=== PATIENT | female | born 1945 | race Caucasian/White ===

== ENCOUNTER → 2017-09-11 10:07 | Outpatient (CLI) | payer MEDICARE, SELFPAY ==
[2017-09-14 10:17] LABS: CREATININE FINGERSTICK 0.54 mg/dL (0.55-1.02); EGFR FINGERSTICK > 60 mL/min (>60)
== END ==
PROVIDERS: Family Provider Internal Medicine; PCP Internal Medicine
DX: D32.0 Benign neoplasm of cerebral meninges (principal)

== ENCOUNTER → 2017-09-17 08:00 | Outpatient (CLI) | payer MEDICARE, SELFPAY ==
--- NOTE | 2017-09-17 08:04 | MRI_ITS ---
STUDY: MRI BRAIN WITH AND WITHOUT CONTRAST REASON FOR EXAM: Female, 72 years old. meningioma, f/u to prev mri; episode of neck pain,visual disturbance. TECHNIQUE: Standardized multiplanar fat and water weighted pulse sequences were obtained. 7 ml of Gadavist contrast material was administered intravenously for the contrast portion of the examination. COMPARISON: None. FINDINGS: Normal size of the ventricles and extra-axial spaces for the patient's age. Normal white matter tracts of the supratentorial brain. Normal bilateral basal ganglia. Normal thalami. There is no extra-axial fluid accumulation. There is 1.5 x 2.0 cm there left parasagittal enhancing nodule. There is no adjacent edema. Normal flow voids within the major intracranial circulation suggesting patency by spin echo criteria. Normal venous enhancement. There is no enhancing intra-axial or extra-axial abnormality. Normal sella turcica, pituitary gland, infundibular stalk, optic chiasm and hypothalamus. Normal tectal plate and pineal gland. Normal midbrain, willie and medulla. Normal cerebellum. Normal basal cisterns. Normal bilateral temporal bones. Normal bilateral internal auditory canals. No demonstrated orbital abnormality, within the constraints of a routine brain study. Normal visualized paranasal sinuses. Normal calvarium and skull base. Normal visualized soft tissue structures. Normal visualized upper cervical spine. MRI/Brain W/WO Contrast IMPRESSION: 2 cm left parasagittal enhancing nodule, most compatible with meningioma. Otherwise unremarkable examination. Electronically Signed: Ziggy Nesbitt MD at 16:04 EDT Tel , Service support ,
--- NOTE | 2017-09-17 09:00 | NURSING ---
THIS RN CALLED TO MRI TO EVALUATE PT. PT JUST FINISHED MRI AND NOTICED HIVES ON ABD. DENIED SOB, DIFFICULTY SWALLOWING, OR ANY OTHER COMPLAINT. PT OBSERVED FOR TEN MINUTES. PT INFORMED TO TAKE BENADRYL KRISTI AND INCREASE FLUID INTAKE TODAY.
== END ==
PROVIDERS: Family Provider Internal Medicine; PCP Internal Medicine
DX: D32.0 Benign neoplasm of cerebral meninges (principal)
CPT/HCPCS: 70553; A9585

== ENCOUNTER 2017-12-02 07:00 | Day surgery (SDC) | payer MEDICARE, SELFPAY ==
[2017-12-02] VITALS (7 sets, daily range): BP systolic 95–152; BP diastolic 60–73; PULSE 57–68; RESP 18; TEMP 36.2–36.7; O2SAT 98–100; BMI 24.8
--- NOTE | 2017-12-02 | IMM_PTH ---
PATIENT: BENEDICT LUCAS LOC: EN U#:[id number] AGE/SX: 72/F ROOM: RE12/02/[address]: Dr. Abner Reid MD : 1945 BED: DIS: 12/02/2017 SPEC #: [id number] RECD: 12/03/17 13:38 STATUS: JHONNY REQ #: [id number] BRIGIDA: 12/02/17 00:[address]: Abner Reid DEPT: IMMUNOHISTOCHEMISTRY RECD BY: Jodie Miller ENTERED: 12/03/17 13:39 SP TYPE: IMMUNO OTHR DR: Dr. Gavin Tran MD Tissues: B - Stomach, NOS Procedures: H Pylori (initial) PHYSICIAN & INSTITUTION [place] [id number] SPECIMEN INFORMATION: Tissue Source: B ? Antral biopsy Clinical Info: Esophageal dysphagia, history colon polyps Specimen Number: [id number] CPT code: 44215 METHODOLOGY: Deparaffinized sections of prefer/formalin-fixed tissue or PAP/DQ stained slides are incubated with monoclonal/polyclonal antibodies/oligonucleotide probes. Localization is made via biotin free immunoperoxidase method. Appropriate controls are performed and reacted as expected. Results on target cell population are indicated in the following table: RESULTS: ANTIBODY / CLONE RESULT H Pylori (polyclonal) negative These tests were developed and their performance characteristics determined by [facility]. They may not have been cleared or approved by the U.S. Food and Drug Administration. The FDA has determined that such clearance or approval is not necessary. INTERPRETATION: B. Antral biopsy: Negative for Helicobacter pylori organisms. SJ:quincy 12/04/17
--- NOTE | 2017-12-02 08:00 | EGD_PTH ---
PATIENT: BENEDICT LUCAS LOC: EN U#:[id number] AGE/SX: 72/F ROOM: RE12/02/[address]: Dr. Abner Reid MD : 1945 BED: DIS: 12/02/2017 SPEC #: [id number] RECD: 12/02/17 12:49 STATUS: JHONNY REAdan #: [id number] BRIGIDA: 12/02/17 08:[address]: Abner Reid DEPT: SURGICAL PATHOLOGY RECD BY: Layton Fregoso ENTERED: 12/02/17 13:57 SP TYPE: EGD BIOPSY OT DR: Dr. Gavin Tran MD Tissues: A - Duodenum, NOS B - Gastric mucous membrane C - COLON BIOPSY D - Esophageal mucous membrane C - Gastric fundus Procedures: Surgery Specimen Level IV HEADER OPERATION: Colonoscopy, EGD PRE-OP DIAGNOSIS: Esophageal dysphagia, history colon polyps TISSUE SUBMITTED: A ? Duodenal biopsy, B ? Antral biopsy, C ? Fundic polyp biopsy, D ? Distal esophagus biopsy MICROSCOPIC DIAGNOSIS A. Duodenal biopsy: Fragment of duodenal mucosa with Shan gland hyperplasia. B. Antral biopsy: Mild gastritis. A minute lymphoid aggregate, favor benign. See microscopic description and comment. C. Fundic polyp, biopsy: Consistent with fundic gland polyp. D. Distal esophageal biopsy: Fragments of squamous epithelium with mil chronic inflammation. SJ:quincy 12/03/17 COMMENT B. The results of immunohistochemistry for Helicobacter pylori will be reported separately ([id number]). MICROSCOPIC DESCRIPTION Slides are reviewed. B. The specimen shows fragments of gastric mucosa with chronic inflammatory cell infiltrates in the lamina propria consisting of lymphocytes and plasma cells, consistent with mild chronic gastritis. A minute lymphoid aggregate is also noted, favor benign. GROSS DESCRIPTION A - Received in fixative is one container labeled with the patient's name and designated biopsy duodenum. The specimen consists of one irregular fragment of light lipscomb soft tissue that measures 0.6 x 0.3 x 0.1 cm. The specimen is totally submitted in one cassette. B - Received in fixative is one container labeled with the patient's name and designated antral biopsy. The specimen consists of two irregular fragments of light lipscomb soft tissue that in aggregate measure 1 x 0.3 x 0.1 cm. The specimen is totally submitted in one cassette. C - Received in fixative is one container labeled with the patient's name and designated fundic polyp biopsy. The specimen consists of one irregular fragment of light lipscomb soft tissue that measures 0.4 x 0.3 x 0.1 cm. The specimen is totally submitted in one cassette. D - Received in fixative is one container labeled with the patient's name and designated distal esophageal biopsy. The specimen consists of multiple irregular fragments of light lipscomb soft tissue that in aggregate measure 0.5 x 0.3 x 0.1 cm. The specimen is totally submitted in one cassette. / SJ:rg 12/02/17 TC:3 CPT: 94762 x4
--- NOTE | 2017-12-02 09:00 | PCM.OPRPT ---
Problem List (1) Esophageal dysphagia Status: Acute (2) Change in bowel habit Status: Acute (3) Personal history of colonic polyps Status: Acute Report of Operation Date of Procedure: 12/02/17 Pre-Operative Diagnosis: Esophageal dysphagia. Change of bowel habit with discolored stool Post-Operative Diagnosis: Hiatal hernia, mild antral gastritis, gastric fundic polyps,. Sigmoid diverticulosis. Cecal arteriovenous malformation Surgery/Procedure Performed:: Colonoscopy with argon beam cecal cauterization Description of Surgical Findings:: Timeout and informed consent was obtained. 72-year-old female was taken to the endoscopy suite. She was placed in the left lateral decubitus position. Throughout the procedure she had monitored anesthesia care. Or oropharynx anesthetized with Topex. She underwent monitored anesthesia care. Flexible gastroscope was inserted in the esophageal inlet. The proximal mid distal esophagus notable for a small hiatal hernia distally with the e.g. junction at 38 cm. Scope was advanced the stomach some gastric fundic polyps identified. Minimal erythema in the antrum. Scope was advanced in the first and second portion of the duodenum. This did not appear to be grossly remarkable. Cold forcep biopsy was obtained of the duodenum. Cold forcep biopsy was obtained of the antrum. Cold forcep biopsy obtained gastric fundic polyps. Hemostasis was intact. The hiatal hernia noted but no gross changes of reflux. All findings appeared mild. Excess fluid and air was aspirated free the procedure was completed she tolerated it well. Digital rectal exam performed. Normal anal tone mild hemorrhoidal changes. Flexible colonoscope was inserted and advanced quite readily throughout the colon. The cecum ileocecal valve area was nicely achieved. It was noted to be AVM malformation of the cecum scattered with areas suggesting recent bleeding. There was small amounts of streaky blood. Using a argon beam with right colon settings and is straight catheter I cauterized as much of these AVMs as possible. Hemostasis was intact. This was over a scattered area of the cecum. No active bleeding was present at the completion. Very difficult to imagine however that every last one was treated. The scope was carefully withdrawn and at the hepatic flexure 1 additional area was treated with the argon beam. There was pancolonic diverticulosis noted with severe diverticulosis of the descending and sigmoid colon. I did not see any recurrent polyps. The scope was retroflexed within the rectum the anorectal verge inspected this was not remarkable excess fluid and air was aspirated free the procedure was completed with the patient tolerating it well. Impression Small hiatal hernia. Mild antral gastritis. Gastric fundic polyps. Unremarkable upper GI findings. Cold forcep biopsies pending. AVMs of the cecum. Evidence of active bleeding. Pancolonic diverticulosis with extensive diverticular disease of the sigmoid and descending colon. The patient will be notified of pathology results as they become available. I plan to obtain a CBC today and likely will recheck laboratory at 1 month. It is of note that the patient's recently been diagnosed as having a cerebral hemangioma. I will try to avoid surgical resection of the right colon if possible. Otherwise pending patient progress next colonoscopy for her history of polyp disease would be in 5 years. The upper scope was started 0824 and completed at 0828. The lower endoscopy was started 0832 and the cecum was reached at 0835 and the procedure was completed at 0857 CC: Dr. Marc Reid M.D., F.A.C.S. Type of Anesthesia:: MAC
[2017-12-02 09:40] LABS: Absolute Lymphocyte Count 1.07 X10^3/ul (0.83-4.51); Absolute Neutrophil Count 2.1 X10^3/uL (2.0-7.7); Basophil# 0.01 X10^3/uL; Basophil% 0.3 % (0-1); Eosinophil# 0.16 X10^3/uL; Eosinophils% 4.4 % (0-5); Hematocrit 40.4 % (37-47); Hemoglobin 13.6 g/dl (12.0-15.0); Lymphocyte # 1.07 X10^3/ul (4.0); Lymphocyte % 29.2 % (19-41); Mean Corp Hgb Conc 33.7 g/gl (32-36); Mean Corpuscular Hgb 32.6 pg (27.0-32.0); Mean Corpuscular Volume 96.9 fL (81-99); Mean Platelet Vol. 9.5 fl (6.2-12.0); Monocyte# 0.33 X10^3/uL; Neutrophil # 2.08 X10^3/uL (2.7-7.7); Neutrophil % 56.8 % (47-70); POSITIVE COUNT NO; POSITIVE DIFFERENTIAL NO; POSITIVE MORPHOLOGY NO; Platelet Count 197 K/mm3 (150-450); RBC Distribution Width SD 42.3 fl (35.1-43.9); Red Blood Count 4.17 M/mm3 (4.2-5.4); White Blood Count 3.7 K/mm3 (4.4-11.0)
[2017-12-02 10:06] LABS: Anion Gap 5 (5-15); BUN 8 mg/dL (7-18); BUN/Creat Ratio 12.9 RATIO (10-20); Calcium,Total 8.9 mg/dL (8.5-10.1); Chloride 108 mmol/L (98-107); Creatinine, Serum 0.62 mg/dL (0.55-1.02); EST Glomerular Filtration Rate 100 mL/min (>60); Est Glom Filt Rate - Afr Amer 121 mL/min (>60); Estimated Creatinine Clearance 40.83 ml/min; Glucose 94 mg/dL (74-106); Potassium 3.4 mmol/L (3.5-5.1); Sodium Level 143 mmol/L (136-145)
== END 2017-12-02 10:53 | disposition home or self-care (01) ==
LOC: EN 07:01 → AC 07:02
PROVIDERS: Family Provider Internal Medicine; PCP Internal Medicine; Visit Provider Surgery
PROC: 0DJD8ZZ Inspection of Lower Intestinal Tract, Via Natural or Artificial Opening Endoscopic (ICD-10-PCS; CPT 45378; principal; 2017-12-02 07:55)
DX: K29.30 Chronic superficial gastritis without bleeding (principal); R13.10 Dysphagia, unspecified; R19.4 Change in bowel habit; K29.50 Unspecified chronic gastritis without bleeding; Q27.39 Arteriovenous malformation, other site; K57.30 Diverticulosis of large intestine without perforation or abscess without bleeding; K44.9 Diaphragmatic hernia without obstruction or gangrene; Z86.010 Personal history of colon polyps; E78.00 Pure hypercholesterolemia, unspecified
CPT/HCPCS: 43239; 45380; 36415; 80048; 85025; 88305; 88342; J7120

== ENCOUNTER 2017-12-03 17:20 | Inpatient (IN) | payer MEDICARE, SELFPAY ==
[2017-12-03] VITALS (12 sets, daily range): BP systolic 106–176; BP diastolic 60–91; PULSE 84–114; RESP 14–27; TEMP 36.6–38.3; O2SAT 93–100; BMI 25.0; BMI 24.7; BMI 24.8
[2017-12-03] MEDS: Morphine 4 MG/ML Syringe IV (17:47)
[2017-12-03] MEDS: 0.9% Normal Saline 1,000 ML 1000 ML IV (17:47)
[2017-12-03] MEDS: Ondansetron 4 MG/2 ML Vial IV (17:47)
--- NOTE | 2017-12-03 17:57 | NURSING ---
NO LW OR POA
--- NOTE | 2017-12-03 18:10 | NURSING ---
DR Haim HODGES TALKING TO DR SAMS
[2017-12-03 18:11] LABS: Absolute Lymphocyte Count 1.17 X10^3/ul (0.83-4.51); Absolute Neutrophil Count 11.8 X10^3/uL (2.0-7.7); Basophil# 0.01 X10^3/uL; Basophil% 0.1 % (0-1); Eosinophil# 0.11 X10^3/uL; Eosinophils% 0.8 % (0-5); Hematocrit 40.4 % (37-47); Hemoglobin 13.6 g/dl (12.0-15.0); Lymphocyte # 1.17 X10^3/ul (4.0); Lymphocyte % 8.4 % (19-41); Mean Corp Hgb Conc 33.7 g/gl (32-36); Mean Corpuscular Hgb 32.9 pg (27.0-32.0); Mean Corpuscular Volume 97.8 fL (81-99); Monocyte# 0.84 X10^3/uL; Neutrophil # 11.82 X10^3/uL (2.7-7.7); Neutrophil % 84.6 % (47-70); Platelet Count 214 K/mm3 (150-450); RBC Distribution Width CV 12.1 % (11.6-14.6); RBC Distribution Width SD 43.1 fl (35.1-43.9); Red Blood Count 4.13 M/mm3 (4.2-5.4)
[2017-12-03 18:13] LABS: POSITIVE COUNT NO; POSITIVE DIFFERENTIAL NO; POSITIVE MORPHOLOGY NO
[2017-12-03 18:27] LABS: ALB/GLOB Ratio 1.1 RATIO (0.9-2.4); AST(SGOT) 22 U/L (15-37); Alanine Aminotransfer ALT/SGPT 28 U/L (13-56); Albumin, Serum 4.1 g/dL (3.2-5.0); Alkaline Phosphatase 121 U/L (45-117); Anion Gap 7 (5-15); BUN 13 mg/dL (7-18); Calcium,Total 9.5 mg/dL (8.5-10.1); Chloride 106 mmol/L (98-107); Creatinine, Serum 0.77 mg/dL (0.55-1.02); EST Glomerular Filtration Rate 78 mL/min (>60); Est Glom Filt Rate - Afr Amer 95 mL/min (>60); Estimated Creatinine Clearance 40.83 ml/min; Globulin 3.7 g/dL (2.2-4.2); Glucose 122 mg/dL (74-106); Lipase 134 U/L (73-393); Potassium 3.3 mmol/L (3.5-5.1); Protein, Total 7.8 g/dL (6.4-8.2); Sodium Level 142 mmol/L (136-145)
--- NOTE | 2017-12-03 18:54 | HP.PCM_ITS ---
Problem List (1) Cecum perforation Status: Acute History of Present Illness Date of Admission: 12/03/17 The patient is a 72 year old F who just had a procedure yesterday by myself. Please refer to that for fully dictated H&P. It is of note that she had had a previous colonoscopy in 2012. There was no reflection at that time of vascular malformation. She did have a previous history of colon polyps. She was having troubles with intermittent constipation and orange colored stools. Yesterday she was taken for endoscopy. Because of esophageal dysphagia she had both an upper endoscopy and a lower endoscopy. The upper endoscopy showed a small hiatal hernia. Minimal erythema of the antrum. Biopsies were routinely obtained. Gastric fundic polyps are identified. She then had a colonoscopy. That proceeded without difficulty. It is of note that the patient has had a previous sigmoid colectomy secondary to what sounds like volvulus. The colonoscopy proceeded. The ileocecal valve was nicely achieved. There were multiple AVMs of the cecum with scattered areas suggesting recent bleeding. There are small amounts of streaky blood located there as well. I utilized an argon beam with a straight catheter to treat this area. The argon beam was set on right colon settings. I suggested that not all of the areas were treated due to the extensive nature of the process. The patient was discharged home in satisfactory condition. She tells me that she was feeling well. Midday today developed some bloating. And then later this afternoon developed severe right lower quadrant abdominal pain. She presented was noted to have a mild leukocytosis with a left shift. She had a very tender abdomen focused in the right lower quadrant. CT scan obtained suggesting bubbles outside of the cecum. Past Medical History Medical History: Medical History (Last Updated 11/21/17 @ 13:34 by Lauren Camarena) Personal history of colonic polyps (Acute) Z86.010 Blood in stool K92.1 Constipation K59.00 Diarrhea R19.7 Hemorrhoids K64.9 Stroke I63.9 Allergies clindamycin Allergy (Intermediate, Verified 12/03/17 17:22) nausea/vomiting sulfamethoxazole [From Bactrim] Allergy (Intermediate, Verified 12/03/17 17:22) nausea/vomiting trimethoprim [From Bactrim] Allergy (Intermediate, Verified 12/03/17 17:22) nausea/vomiting Gadolinium-MRI Contrast Medium Allergy (Verified 12/03/17 17:22) Hives levofloxacin [From Levaquin] Adverse Reaction (Verified 12/03/17 17:22) Nausea metronidazole [From Flagyl] Adverse Reaction (Verified 12/03/17 17:22) Nausea Home Medications: Ambulatory Orders Medication Instructions Recorded Aspirin E.C. [Ecotrin] 81 mg PO DAILY@0800 01/05/17 Atenolol [Tenormin] 25 mg PO DAILY 01/05/17 Calcium Carbonate [Calcium] 500 mg PO BID 01/05/17 Multivitamin [Multiple Vitamins] 1 ea PO DAILY 01/05/17 [place]-3 Fatty Acids [Fish Oil] 500 mg PO DAILY 01/05/17 atorvastatin 20 mg tablet 40 mg PO QHS tab 11/21/17 vitamin E 1,000 unit capsule 400 unit PO DAILY cap 11/21/17 Surgical History: Surgical History (Last Updated 11/21/17 @ 13:35 by Lauren Camarena) History of colectomy Z90.49 History of hemorrhoidectomy Z98.890 History of hysterectomy Z90.710 History of removal of ovarian cyst Z98.890, Z87.42 History of spinal fusion Z98.1 Smoking Status: Never smoker VTE Information - Inpt Only VTE Present on Admission: No Patient Problems: Active and Suspected Problems (Last Updated 11/21/17 @ 13:34 by Lauren Camarena) Cecum perforation (Acute) - Physical Exam General: Alert, Oriented x3, - - Clearly uncomfortable HEENT: Atraumatic Oral: Moist Mucosa Lungs: Clear to auscultation Cardiovascular: Regular rate, Regular Rhythm Abdomen: - - Abdomen is distended and quiet. She is markedly tender to palpation right lower quadrant with rebound and guarding. There is a well- healed left sd-rectus incision. Well-healed umbilical incision. Neurological: Cranial nerves II-XII grossly intact Vital Signs Temp Pulse Resp BP Pulse Ox 99.9 F H 104 H 27 H 106/71 98 12/03/17 17:21 12/03/17 18:24 12/03/17 18:24 12/03/17 18:24 12/03/17 18:24 Oxygen Flow Rate (L/min) 2 Oxygen Delivery Method Nasal Cannula Weight: 141 lb Body Mass Index (BMI) 25.0 Laboratory Tests Past 24 Hrs 12/03/17 12/03/17 17:50 17:50 WBC 14.0 H RBC 4.13 L Hgb 13.6 Hct 40.4 MCV 97.8 MCH 32.9 H MCHC 33.7 RDW 12.1 RDW Differential 43.1 Plt Count 214 MPV 10.0 Immature Gran % (Auto) 0.100 Neut % (Auto) 84.6 H Lymph % (Auto) 8.4 L [place] % (Auto) 6.0 Eos % (Auto) 0.8 Baso % (Auto) 0.1 Absolute Neuts (auto) 11.8 H Absolute Lymphs (auto) 1.17 Total Counted Not Reportable Sodium 142 Potassium 3.3 L Chloride 106 Carbon Dioxide 29.0 Anion Gap 7 BUN 13 Creatinine 0.77 Estim Creat Clear Calc 40.83 Est GFR (MDRD) Af Amer 95 Est GFR (MDRD) Non-Af 78 BUN/Creatinine Ratio 17.0 Glucose 122 H Calcium 9.5 Total Bilirubin 1.10 H AST 22 ALT 28 Alkaline Phosphatase 121 H Total Protein 7.8 Albumin 4.1 Globulin 3.7 Albumin/Globulin Ratio 1.1 Lipase 134 Assessment/Plan All Active Problems (Last Updated 11/21/17 @ 13:34 by Lauren Camarena) Esophageal dysphagia (Acute) Change in bowel habit (Acute) Cecum perforation (Acute) Personal history of colonic polyps (Acute) Findings are consistent with cecal perforation secondary treatment of the AVMs from the argon beam right colon settings. I recommend laparoscopy. I anticipated a limited laparoscopic right colectomy. The patient had vascular malformations mostly located in the cecum and the proximal ascending colon. There was no evidence of any recurrent polyps yesterday. She otherwise appears to be hemodynamically stable. I discussed with her technique, benefits, risks and alternatives. She has had an opportunity to ask and have questions answered. We will proceed immediately with intervention. She does have drug allergies but she is not allergic to penicillin. She will immediately receive therapeutic Zosyn. She is aware that I may need to convert to an open approach or possibly a diverting ileostomy may be required but I am not anticipating that. Abner Reid M.D., F.A.C.S.
--- NOTE | 2017-12-03 19:00 | COL_PTH ---
PATIENT: BENEDICT LUCAS LOC: MS3 U#:[id number] AGE/SX: 72/F ROOM: MS319 RE12/03/[address]: Dr. Abner Reid MD : 1945 BED: 1 DIS: 12/07/2017 SPEC #: [id number] RECD: 12/04/17 09:16 STATUS: JHONNY BATRESAdan #: [id number] BRIGIDA: 12/03/17 19:[address]: Abner Reid DEPT: SURGICAL PATHOLOGY RECD BY: [place] ENTERED: 12/04/17 10:13 SP TYPE: COLON OTHR DR: Dr. Gavin Tran MD Tissues: Colon, NOS Procedures: Surgery Specimen Level V HEADER OPERATION: Laparoscopic hand assisted right colectomy PRE-OP DIAGNOSIS: Cecal micro-perforations; status post treatment of vascular malformation TISSUE SUBMITTED: Right colon MICROSCOPIC DIAGNOSIS Right colon, hemicolectomy: Focal areas of ulceration and associated transmural acute inflammation large bowel. Resection margin, no pathologic diagnosis. Pericolonic lymph node with reactive changes and focal area of hemorrhage. See comment. SJ:rg 12/08/17 COMMENT Grossly identified mucosal polyp does not show any adenomatous changes. Case has been reviewed in consultation with Dr. Pablo who concurs with the above diagnosis. IDC:AM MICROSCOPIC DESCRIPTION Slides are reviewed. GROSS DESCRIPTION Received in fixative is one container labeled with the patient's name and designated right colon. The specimen consists of a 15 cm segment of large bowel and attached 4.5 cm of terminal ileum located approximately 0.5 cm. Distal to the ileocecal valve is an ulcerated area measuring 3.5 x 3 x 0.2 cm. Focal area small ulceration are noted in the cecum. Located approximately 8 cm distal to the ileocecal valve is a mucosal polyp measuring 5 mm in greatest dimension. An appendix is not present. The serosal surface in the area of the ulcer is inked in black ink. The small bowel segment shows mostly normal epithelial surface. The attached fibrofatty tissue does not contain mass lesions. Event Planning Manager sections are submitted as follows: 1 ? mucosal margins and colonic polyp, 2 ? smaller ulcers, 3 & 4 ? large bowel ulcers, 5 & 6 ? quality assurance representative pericolic lymph nodes. / AM:quincy 12/05/17 More sections are submitted as follows: 7 ? small bowel, 8 ? ileocecal valve. / SJ:quincy 12/09/17 TC:2 CPT: 96345
--- NOTE | 2017-12-03 19:13 | ED.DCSUM_ITS ---
- ER Visit Summary Date of Service: 12/03/17 Chief Complaint: Abdominal pain History of Present Illness: The patient is a [address] Tran and Dr. Abner Reid. She had a colonoscopy and endoscopy yesterday by Dr. Roblero. She reports that she was doing well and had mild pain. However, at approximately 1230 today the pain became much worse. She describes it as a sharp, aching pain that is 10 out of 10 with movement or deep breaths. Is 7 out of 10 while she is still. She has been nauseated, but has not vomited. She has had no diarrhea. She reports she is passing flatus. She is passed a little bit of blood clot. No bright red blood. No fever or chills. Physical Examination: Vitals: Stable. Afebrile. General: Well-nourished and well-developed. Head: Normocephalic atraumatic. Neck: Supple, no lymphadenopathy. No JVD. Nontender. Cardiovascular: Regular rate and rhythm. No murmurs. Respiratory: No respiratory distress. Clear to auscultation bilaterally. Abdominal: Soft, severe right lower quadrant and suprapubic tenderness to palpation, nondistended, normal bowel sounds. She does have guarding and rebound tenderness. Back: Nontender. Extremities: Nontender, no edema. Skin: Normal color, no rash. Neurologic: Alert and oriented ?3. Cranial nerves II through XII are intact. Normal strength and sensation. Psych: Normal affect. Test Results: CBC is more for white count of 14.0 with 85 segmented neutrophils and 8 lymphs lites. Chem-7 is more for potassium 3.3 and glucose 122. LFTs marked total bili 1.10 and alk phos of 121. Lipase is normal. CT shows pericecal fatty stranding. Several punctate extraluminal gas densities are seen in the region suspicious for microperforation. No abnormal free or loculated fluid collection is seen in the region. Emergency Department Course and Treatment: Patient was treated with morphine and Zofran IV. She was seen by Dr. Abner Reid in the emergency department and he wrote for Zosyn. Treatment Plan: Patient will be taken to the operating room for further evaluation and treatment. Disposition: Admitted in serious condition. Impression: 1. Cecal microperforation. 2. 1 day status post colonoscopy/endoscopy. This note was generated with [employer] dictation software. It may contain incorrect words, spelling, and punctuation that were not noted in review of the chart prior to signing ED Disposition - Plan for ED Patient: Chief Complaint: Abd Pain
[2017-12-03] MEDS: Bupivacaine 0.5% PF 10 ML VIAL (20:00)
[2017-12-03] MEDS: BUPIVACAINE LIPOSOME/PF 20 ML VIAL OPERA.SITE (21:42)
--- NOTE | 2017-12-03 21:51 | OP.PCM_ITS ---
Problem List (1) Cecum perforation Status: Acute Report of Operation Date of Procedure: 12/03/17 Pre-Operative Diagnosis: Postprocedural treatment of bleeding vascular malformations of the cecum with localized microperforations and colitis of the cecum Post-Operative Diagnosis: Same Surgery/Procedure Performed:: Hand-assisted laparoscopic right colectomy Description of Surgical Findings:: Timeout and informed consent was obtained. 72-year-old female was taken the operating room. Yesterday she had treatment of multiple bleeding vascular malformations of the cecum. This was treated with the right colon settings of the argon beam. She presented with acute onset of severe pain she was focally tender with guarding and rebound. She had a mild leukocytosis. CT scan demonstrated microperforations. Based upon the fact that I felt that her recovery would be quite prolonged and possibly risking full wall perforation in addition to the fact that all of the AVMs could not be treated at the initial setting I thought that it was in her best interest to proceed with a definitive resection in deference to risking a full-thickness perforation Zosyn 3.375 g are given intravenously preoperatively. The abdomen sterilely prepped and draped. Ioban drape was used as well. A supraumbilical vertical incision was created holding sutures of 0 Vicryl placed small incision was created the abdomen was insufflated CO2 to pressure of 10 mmHg pressure using a varies needle. Direct access was actually visualized in a timely report was inserted no evidence of reported injuries. Inspection revealed that the cecum appeared to be quite hemorrhagic there was absolutely no stool spillage there was inflammation of the mesentery there is significant distention of the ascending colon. I elected to proceed with the planned colectomy so as to not risk full-thickness perforation. 5 minute trocar was put in the epigastric and one in the right lower quadrant the ileocolic vessels were inspected due to the significant swelling of the cecum visualization was very challenging I used a harmonic scalpel to do some of this dissection and I elected to free the white line of T[place]t and the hepatocolic ligament with a harmonic scalpel. Perform this all the way down the right side freeing up the terminal ileum. This point with good mobilization there was still significant distention of the colon I felt that converting to a hand-assisted basically to act as a wound protector and facilitate management was appropriate. I lengthened the vertical incision placed a hand assist device used my hand for the release some adhesions. Again was done with harmonic scalpel that then allowed me to mobilize the colon interview. I then transected the mesentery using the harmonic scalpel as well as interrupted 0 chromic ligatures. The terminal ileum was viable cecum was not viable the hepatic flexure of the colon was viable but it was very adherent so I then had to work diligently to free the gastrohepatic omentum and the greater omentum off the stomach is become adherent to having done that I was able to mobilize the entire right colon. Using PATIENCE-75 staplers I transected the colon had appropriate. With the bowel appear to be quite viable. There was noted to be good blood supply at both sites in fact I had to use interrupted 4-0 silk sutures to further secure hemostasis. I placed the bowel side to side and secured there with several interrupted 4-0 silk stitches. I made enterotomies in both small bowel terminal ileum and the colon inserted the 75 mm PATIENCE stapler and performed a functional end-to-end anastomosis by approximately the 2 structures, size of fibroids. Was some stool from the colon that had to be rapidly aspirated free there was no free spillage but it was immediately at the enterostomy site. Having achieved that I then used a TA 60 to close the enterotomy site. I used omentum then as a pass with a running 4 -0 silk to cover the anastomotic area. I doubt the area prior to that with Betadine. Both ends the bowel appeared viable. That there was a nicely patent anastomosis placed that back in the abdomen which seemed to sit down in the right mid abdomen. Hemostasis was intact blood loss and then minimal. There was no gross spillage at all during the procedure. Then we removed the hand assist device we changed gowns and gloves and instruments. Primary wound closure was performed with running #1 PDS. I used Exparel diluted to 60 cc with saline to inject around the wound and perform a nerve block around the subcostal area. I tried to inspect the abdomen prior to removing the hand assist device but due to the patient's ileus and distention that was not feasible so I could not get a laparoscopic view in order to better perform that tap block. The wound edges were now approximated with interrupted a running septic or 4-0 Monocryl. Steri-Strips Telfa and OpSite dressings were applied. An NG tube was inserted per anesthesia. OG tube is been used throughout the procedure. A Campbell catheter was placed at the completion of the procedure. Sponge instrument and needle counts were reported the surgeon be correct. Specimen includes right colon. Drains none. Blood loss minimal. She was taken to the recovery area in satisfactory condition. Abner Reid M.D., F.A.C.S.
[2017-12-04] VITALS (7 sets, daily range): BP systolic 120–147; BP diastolic 52–61; PULSE 85–94; RESP 16–20; TEMP 36.9–37.4; O2SAT 94–100; BMI 24.8
[2017-12-04] MEDS: Piperacil/Tazobactam 3.375 GM/50 ML ML IV ×2 (00:35→06:45)
[2017-12-04] MEDS: Morphine 4 MG/ML Syringe IV ×7 (04:09→23:31)
[2017-12-04] MEDS: 0.9% NaCl Peripheral Flush Adult/Peds IV ×6 (04:09→23:32)
--- NOTE | 2017-12-04 05:35 | PCM.PN.SRG ---
Patient Problems: Active and Suspected Problems (Last Updated 11/21/17 @ 13:34 by Lauren Camarena) Cecum perforation (Acute) Subjective: Pt is feeling better than yesteday but still quite sore No flatus - Physical Exam General: Alert, Oriented x3, Cooperative, No apparent distress Lungs: Clear to auscultation, Diminished - in bases Abdomen: Bowel Sounds Not Present, Distended, Tender Vital Signs Temp Pulse Resp BP Pulse Ox 98.8 F 93 18 147/61 H 97 12/04/17 03:55 12/04/17 03:55 12/04/17 03:55 12/04/17 03:55 12/04/17 03:55 Oxygen Flow Rate (L/min) 2 Oxygen Delivery Method Room Air Weight: 140 lb Body Mass Index (BMI) 24.7 Intake and Output for Last 24 Hours 12/02/17 12/03/17 12/04/17 23:59 23:59 23:59 Intake Total 2130 / 2130 80 / 80 Output Total 550 / 550 Balance 1580 / 1580 80 / 80 Medical Necessity - Tobacco Use Smoking Status: Never smoker Assessment/Plan All Active Problems (Last Updated 11/21/17 @ 13:34 by Lauren Camarena) Esophageal dysphagia (Acute) Change in bowel habit (Acute) Cecum perforation (Acute) Personal history of colonic polyps (Acute) Will dc ngt and dia Mobilize pt Moderate IVF Await labs Antibiotics two doses post op and cease
[2017-12-04 07:32] LABS: Absolute Lymphocyte Count 1.05 X10^3/ul (0.83-4.51); Absolute Neutrophil Count 14.8 X10^3/uL (2.0-7.7); Basophil# 0.01 X10^3/uL; Basophil% 0.1 % (0-1); Eosinophil# 0.03 X10^3/uL; Eosinophils% 0.2 % (0-5); Hematocrit 35.1 % (37-47); Hemoglobin 11.5 g/dl (12.0-15.0); Lymphocyte # 1.05 X10^3/ul (4.0); Lymphocyte % 6.3 % (19-41); Mean Corp Hgb Conc 32.8 g/gl (32-36); Mean Corpuscular Hgb 32.1 pg (27.0-32.0); Monocyte% 4.8 % (0-10); Neutrophil # 14.79 X10^3/uL (2.7-7.7); Neutrophil % 88.5 % (47-70); Platelet Count 203 K/mm3 (150-450); RBC Distribution Width CV 12.2 % (11.6-14.6); RBC Distribution Width SD 44.1 fl (35.1-43.9); Red Blood Count 3.58 M/mm3 (4.2-5.4); White Blood Count 16.7 K/mm3 (4.4-11.0)
[2017-12-04 07:41] LABS: POSITIVE COUNT NO; POSITIVE DIFFERENTIAL NO; POSITIVE MORPHOLOGY NO
[2017-12-04 07:56] LABS: Anion Gap 11 (5-15); BUN 12 mg/dL (7-18); BUN/Creat Ratio 16.4 RATIO (10-20); Calcium,Total 8.2 mg/dL (8.5-10.1); Chloride 104 mmol/L (98-107); Creatinine, Serum 0.73 mg/dL (0.55-1.02); EST Glomerular Filtration Rate 83 mL/min (>60); Est Glom Filt Rate - Afr Amer 100 mL/min (>60); Estimated Creatinine Clearance 40.83 ml/min; Glucose 137 mg/dL (74-106); Potassium 3.5 mmol/L (3.5-5.1); Sodium Level 142 mmol/L (136-145)
[2017-12-04] MEDS: Ondansetron 4 MG/2 ML Vial IV (08:50)
[2017-12-04] MEDS: Lactated Ringers 1,000 ML 70 ML IV ×2 (08:53→23:31)
[2017-12-04] MEDS: Enoxaparin 40 MG/0.4 ML Syringe SC (08:54)
--- NOTE | 2017-12-04 12:15 | CASEMGMT ---
SEE [facility] [facility] ASSESS LINK: D/C PLAN: HOME Intro role to [employer] [facility]. Pt resting in bed. @ bedside. Pt and both willing to participate in assessment and all questions answered appropriately. Pt states is independent @ home w/ ambulation and all ADL's. Pt wishes to return home upon discharge. Pt denies having any needs at this time. CM to follow for any discharge planning needs that may arise. Monika NUÑEZ RN, CM
--- NOTE | 2017-12-04 15:32 | NURSING ---
Addendum entered by Jennifer Raya 12/04/17 15:39: Dr. Reid in Surgery at this time. OR nurse relayed the message and Dr. Reid stated That's how the patient has always been. Dr. Reid wants Marielos to come take a look at pt. Paged Marielos at this time. Original Note: This nurse checked on pt. C/o of pressure to ABd, 7 out of 10 now as before it was 10 out of 10. This nurse noticed ABd looks more distended. BS are more quieter then they were this morning. Pt is very tender with even the slightest touch to all qauds. No flatus. This nurse bladder scanned pt for 133. Going to call Dr. Laz Reid just to update him on pt findings.
--- NOTE | 2017-12-04 16:54 | NURSING ---
Marielos Talbot up here to see pt. No new orders.
[2017-12-05 03:50] VITALS: BP 136/51; PULSE 94; RESP 16; TEMP 37.3; O2SAT 96
--- NOTE | 2017-12-05 05:41 | PCM.PN.SRG ---
Patient Problems: Active and Suspected Problems (Last Updated 11/21/17 @ 13:34 by Lauren Camarena) Cecum perforation (Acute) Subjective: Much better Passing flatus - Physical Exam General: Alert, Oriented x3 Abdomen: - - softer, pos. BS, less tender but still guarding RLQ Vital Signs Temp Pulse Resp BP Pulse Ox 99.1 F 94 16 136/51 H 96 12/05/17 03:50 12/05/17 03:50 12/05/17 03:50 12/05/17 03:50 12/05/17 03:50 Oxygen Flow Rate (L/min) 2 Oxygen Delivery Method Room Air Weight: 140 lb 0.002 oz Body Mass Index (BMI) 24.7 Intake and Output for Last 24 Hours 12/03/17 12/04/17 12/05/17 23:59 23:59 23:59 Intake Total 2130 / 2130 918 / 918 648 / 648 Output Total 550 / 550 150 / 150 500 / 500 Balance 1580 / 1580 768 / 768 148 / 148 Laboratory Tests Past 24 Hrs 12/04/17 12/04/17 06:13 06:13 WBC 16.7 H RBC 3.58 L Hgb 11.5 L Hct 35.1 L MCV 98.0 MCH 32.1 H MCHC 32.8 RDW 12.2 RDW Differential 44.1 H Plt Count 203 MPV 10.0 Immature Gran % (Auto) 0.100 Neut % (Auto) 88.5 H Lymph % (Auto) 6.3 L [place] % (Auto) 4.8 Eos % (Auto) 0.2 Baso % (Auto) 0.1 Absolute Neuts (auto) 14.8 H Absolute Lymphs (auto) 1.05 Total Counted Not Reportable Sodium 142 Potassium 3.5 Chloride 104 Carbon Dioxide 27.0 Anion Gap 11 BUN 12 Creatinine 0.73 Estim Creat Clear Calc 40.83 Est GFR (MDRD) Af Amer 100 Est GFR (MDRD) Non-Af 83 BUN/Creatinine Ratio 16.4 Glucose 137 H Calcium 8.2 L Medical Necessity - Tobacco Use Smoking Status: Never smoker Assessment/Plan All Active Problems (Last Updated 11/21/17 @ 13:34 by Lauren Camarena) Esophageal dysphagia (Acute) Change in bowel habit (Acute) Cecum perforation (Acute) Personal history of colonic polyps (Acute) Mobilize pt Start and advance diet
--- NOTE | 2017-12-05 05:42 | DCINST_ITS ---
<Abner Reid - Last Filed: 12/05/17 05:42> Discharge Diet: Light diet - advance as tolerated - if you have questions about your diet instructions, please talk to you doctor. Discharge Activity: May Not Drive - for 1 week or while taking narcotic pain medicine. May shower in (days): 1 Lifting Restrictions: 10 pounds Call your doctor if your incision/area has: Continuous Slow Oozing, Sudden Increased Bleeding, Increased Pain/ Swelling, Increased Redness, Foul Smelling Discharge Call your doctor if you observe: Fever of 101 or Higher Suture Line Care: Avoid Pulling/Pushing, Avoid Pinching/Bending Additional Dressing/Incision Instructions:: Change or remove dressing in 4 days. Leave steri-strips in place for 1 week. Allergies/Adverse Reactions: Allergies clindamycin Allergy (Intermediate, Verified 12/03/17 17:22) nausea/vomiting sulfamethoxazole [From Bactrim] Allergy (Intermediate, Verified 12/03/17 17:22) nausea/vomiting trimethoprim [From Bactrim] Allergy (Intermediate, Verified 12/03/17 17:22) nausea/vomiting Gadolinium-MRI Contrast Medium Allergy (Verified 12/03/17 17:22) Hives levofloxacin [From Levaquin] Adverse Reaction (Verified 12/03/17 17:22) Nausea metronidazole [From Flagyl] Adverse Reaction (Verified 12/03/17 17:22) Nausea Medications to take at Discharge Aspirin E.C. [Ecotrin] 81 mg PO DAILY@0800 01/05/17 Atenolol [Tenormin] 25 mg PO DAILY 01/05/17 Calcium Carbonate [Calcium] 500 mg PO BID 01/05/17 Multivitamin [Multiple Vitamins] 1 ea PO DAILY 01/05/17 [place]-3 Fatty Acids [Fish Oil] 500 mg PO DAILY 01/05/17 atorvastatin 20 mg tablet 40 mg PO QHS tab 11/21/17 vitamin E 1,000 unit capsule 400 unit PO DAILY cap 11/21/17 Acetaminophen [Tylenol Tablet] 650 mg PO Q6H PRN PRN tablet 12/07/17 Tamsulosin HCl [Flomax] 0.4 mg PO DAILY@1730 #15 cap 12/07/17 The following prescriptions were given: Tamsulosin HCl [Flomax] 0.4 mg PO DAILY@1730 #15 cap Primary Care Physician: Gavin Tran MD [Primary Care Provider] - Test Results: Test results from this visit will be discussed in further detail at your follow- up appointment, if applicable. Please Follow Up With: Abner Reid MD - [phone] When: Call to make an appointment to be seen in about 10 days. <Renaldo Rodrigez - Last Filed: 12/07/17 12:38> Test Results: Test results from this visit will be discussed in further detail at your follow- up appointment, if applicable.
[2017-12-05] MEDS: HYDROcodone Bitartrate/Apap 5/325 Tablet PO ×3 (05:53→22:07)
[2017-12-05] MEDS: 0.9% NaCl Peripheral Flush Adult/Peds IV ×2 (05:58→22:16)
[2017-12-05 06:25] LABS: Absolute Lymphocyte Count 0.79 X10^3/ul (0.83-4.51); Basophil# 0.01 X10^3/uL; Basophil% 0.1 % (0-1); Eosinophil# 0.01 X10^3/uL; Eosinophils% 0.1 % (0-5); Hematocrit 33.2 % (37-47); Hemoglobin 10.9 g/dl (12.0-15.0); Lymphocyte # 0.79 X10^3/ul (4.0); Lymphocyte % 6.7 % (19-41); Mean Corp Hgb Conc 32.8 g/gl (32-36); Mean Corpuscular Hgb 33.1 pg (27.0-32.0); Mean Corpuscular Volume 100.9 fL (81-99); Mean Platelet Vol. 10.1 fl (6.2-12.0); Monocyte# 0.93 X10^3/uL; Monocyte% 7.9 % (0-10); Neutrophil # 9.99 X10^3/uL (2.7-7.7); Platelet Count 179 K/mm3 (150-450); RBC Distribution Width CV 12.1 % (11.6-14.6); RBC Distribution Width SD 43.5 fl (35.1-43.9); Red Blood Count 3.29 M/mm3 (4.2-5.4); White Blood Count 11.8 K/mm3 (4.4-11.0)
[2017-12-05 06:29] LABS: POSITIVE COUNT NO; POSITIVE DIFFERENTIAL NO; POSITIVE MORPHOLOGY NO
[2017-12-05 06:42] LABS: Anion Gap 4 (5-15); BUN 12 mg/dL (7-18); BUN/Creat Ratio 21.2 RATIO (10-20); Calcium,Total 8.7 mg/dL (8.5-10.1); Chloride 103 mmol/L (98-107); Creatinine, Serum 0.57 mg/dL (0.55-1.02); EST Glomerular Filtration Rate 111 mL/min (>60); Est Glom Filt Rate - Afr Amer 134 mL/min (>60); Estimated Creatinine Clearance 40.83 ml/min; Glucose 101 mg/dL (74-106); Potassium 3.8 mmol/L (3.5-5.1); Sodium Level 140 mmol/L (136-145)
[2017-12-05 07:33] VITALS: O2SAT 94
[2017-12-05] MEDS: Pantoprazole Sodium 40 MG Tablet PO (08:54)
[2017-12-05] MEDS: Enoxaparin 40 MG/0.4 ML Syringe SC (08:54)
[2017-12-05 08:55] VITALS: BP 145/66; PULSE 84; RESP 18; TEMP 36.6; O2SAT 94
[2017-12-05] MEDS: Tamsulosin HCl 0.4 MG Capsule PO (10:05)
[2017-12-05 14:04] LABS: Bacteria 0 SEEN /hpf (None Seen); Mucous, Urine 0 SEEN /hpf (<or=2+); Red Blood Cells-Urine 0 SEEN /hpf (0-5); Squamous Epithelial Cells - UA 0 SEEN /hpf (5-10); White Blood Cells 0 SEEN /hpf (0-5)
[2017-12-05 14:11] LABS: Color, Urine Yellow (Yellow); Glucose, Dipstick Normal (Normal); Ketone-Dipstick 5 mg/dl (Negative); Leukocyte Esterase-Dipstick Negative /ul (Negative); Nitrite-Dipstick Negative (Negative); Occult Blood-Urine 50 /ul (Negative); Protein-Dipstick Negative (Negative); Urine Bilirubin Dipstick Negative (Negative); Urine Clarity Clear (Clear); Urine Urobilinogen Normal (Normal)
[2017-12-05 14:45] VITALS: BP 129/62; PULSE 89; RESP 18; TEMP 36.8; O2SAT 98
[2017-12-05 22:00] VITALS: BP 139/44; PULSE 92; RESP 16; TEMP 37.3; O2SAT 95
[2017-12-06] VITALS (8 sets, daily range): BP systolic 135–152; BP diastolic 50–75; PULSE 83–105; RESP 16–18; TEMP 36.8–37.3; O2SAT 92–99
[2017-12-06] MEDS: HYDROcodone Bitartrate/Apap 5/325 Tablet PO ×3 (06:16→22:48)
--- NOTE | 2017-12-06 06:40 | PN.SURG_ITS ---
Patient Problems: Active and Suspected Problems (Last Updated 11/21/17 @ 13:34 by Lauren Camarena) Cecum perforation (Acute) Subjective: Pt feeling like need to void but severe pain and need to pass gas Uncomfortable night No nausea - Physical Exam General: - - Pt appears uncomfortable Abdomen: - - distended, diffusely tender, very active BS with tinkles/rushes Vital Signs Temp Pulse Resp BP Pulse Ox 98.4 F 90 16 143/75 H 95 12/06/17 02:45 12/06/17 02:45 12/06/17 02:45 12/06/17 02:45 12/06/17 02:45 Oxygen Flow Rate (L/min) 2 Oxygen Delivery Method Room Air Weight: 140 lb 0.002 oz Body Mass Index (BMI) 24.7 Intake and Output for Last 24 Hours 12/04/17 12/05/17 12/06/17 23:59 23:59 23:59 Intake Total 918 / 918 1867 / 1867 460 / 460 Output Total 150 / 150 2850 / 2850 950 / 950 Balance 768 / 768 -983 / -983 -490 / -490 Laboratory Tests Past 24 Hrs 12/05/17 12/05/17 05:53 10:03 Sodium 140 Potassium 3.8 Chloride 103 Carbon Dioxide 33.0 H Anion Gap 4 L BUN 12 Creatinine 0.57 Estim Creat Clear Calc 40.83 Est GFR (MDRD) Af Amer 134 Est GFR (MDRD) Non-Af 111 BUN/Creatinine Ratio 21.2 H Glucose 101 Calcium 8.7 Urine Color Yellow Urine Clarity Clear Urine pH 7.0 Ur Specific [place] 1.010 Urine Protein Negative Urine Glucose (UA) Normal Urine Ketones 5 H Urine Occult Blood 50 H Urine Nitrite Negative Urine Bilirubin Negative Urine Urobilinogen Normal Ur Leukocyte Esterase Negative Urine RBC 0 SEEN Urine WBC 0 SEEN Ur Squamous Epith Cells 0 SEEN Urine Bacteria 0 SEEN Urine Mucus 0 SEEN Medical Necessity - Tobacco Use Smoking Status: Never smoker Assessment/Plan All Active Problems (Last Updated 11/21/17 @ 13:34 by Lauren Camarena) Esophageal dysphagia (Acute) Change in bowel habit (Acute) Cecum perforation (Acute) Personal history of colonic polyps (Acute) Findings c/w resolving ileus and gas cramping Will drop back to clear liquids and re-assess later today Check labs Encourage ambulation as tolerated
[2017-12-06 07:11] LABS: Absolute Lymphocyte Count 0.86 X10^3/ul (0.83-4.51); Absolute Neutrophil Count 5.3 X10^3/uL (2.0-7.7); Basophil# 0.01 X10^3/uL; Basophil% 0.1 % (0-1); Eosinophil# 0.06 X10^3/uL; Eosinophils% 0.9 % (0-5); Hematocrit 29.6 % (37-47); Lymphocyte # 0.86 X10^3/ul (4.0); Lymphocyte % 12.8 % (19-41); Mean Corp Hgb Conc 33.8 g/gl (32-36); Mean Corpuscular Hgb 33.7 pg (27.0-32.0); Mean Corpuscular Volume 99.7 fL (81-99); Mean Platelet Vol. 9.6 fl (6.2-12.0); Monocyte# 0.52 X10^3/uL; Monocyte% 7.7 % (0-10); Neutrophil # 5.25 X10^3/uL (2.7-7.7); Neutrophil % 78.2 % (47-70); POSITIVE COUNT NO; POSITIVE DIFFERENTIAL NO; POSITIVE MORPHOLOGY NO; Platelet Count 176 K/mm3 (150-450); RBC Distribution Width CV 11.6 % (11.6-14.6); RBC Distribution Width SD 41.1 fl (35.1-43.9); Red Blood Count 2.97 M/mm3 (4.2-5.4); White Blood Count 6.7 K/mm3 (4.4-11.0)
[2017-12-06 07:37] LABS: Anion Gap 8 (5-15); BUN 10 mg/dL (7-18); BUN/Creat Ratio 20.2 RATIO (10-20); Calcium,Total 8.2 mg/dL (8.5-10.1); Chloride 104 mmol/L (98-107); EST Glomerular Filtration Rate 130 mL/min (>60); Est Glom Filt Rate - Afr Amer 157 mL/min (>60); Estimated Creatinine Clearance 40.83 ml/min; Glucose 99 mg/dL (74-106); Potassium 3.5 mmol/L (3.5-5.1); Sodium Level 143 mmol/L (136-145)
[2017-12-06] MEDS: Pantoprazole Sodium 40 MG Tablet PO (09:14)
[2017-12-06] MEDS: Enoxaparin 40 MG/0.4 ML Syringe SC (09:15)
--- NOTE | 2017-12-06 12:27 | NURSING ---
pt states pain is NOT different than she has had, abd not at tight/firm since she voided. States abd feels betterafter she voided.
--- NOTE | 2017-12-06 13:16 | NURSING ---
[id number] Dr Reid called stating WBC is normal, curtis reagan and notify pt that he called. He was informed that pt c/o pain, more distended this afternoon than this am. She is passing a lot flatus. She was bladder scanned, then voided 175, and bladder scanned again it showed 36. Has ambulated in [place]. No further orders given.
--- NOTE | 2017-12-06 13:26 | NURSING ---
Pt notified that Dr Reid called, said that WBC is back to normal.
[2017-12-06] MEDS: Tamsulosin HCl 0.4 MG Capsule PO (16:31)
[2017-12-07 02:00] VITALS: BP 154/79; PULSE 88; RESP 16; TEMP 36.6; O2SAT 96
[2017-12-07] MEDS: Acetaminophen 325 MG Tablet 650 MG PO (05:42)
[2017-12-07 08:02] VITALS: PULSE 84; RESP 17
--- NOTE | 2017-12-07 08:16 | NURSING ---
Pt voided another 50 ml. Will continue to monitor. Loco Garcia BSN RN.
[2017-12-07 08:17] VITALS: BP 144/74; PULSE 86; RESP 16; TEMP 37; O2SAT 99
[2017-12-07] MEDS: Pantoprazole Sodium 40 MG Tablet PO (08:22)
--- NOTE | 2017-12-07 08:55 | PCM.PN.SRG ---
Patient Problems: Active and Suspected Problems (Last Updated 11/21/17 @ 13:34 by Lauren Camarena) Cecum perforation (Acute) Subjective: Patient reports that she is passing flatus. She has not had a bowel movement yet. She is not having any nausea or vomiting and did tolerate clear liquids. - Physical Exam General: Alert, Oriented x3, Cooperative Lungs: Normal air movement, No rales Cardiovascular: Regular rate, Regular Rhythm Abdomen: Soft, Distended - Mildly distended, Tender - Mild appropriate tenderness with no guarding or rebound., - - Incisions are clean dry and intact Musculoskeletal: No Muscle Wasting Vital Signs Temp Pulse Resp BP Pulse Ox 98.6 F 86 16 144/74 H 99 12/07/17 08:17 12/07/17 08:17 12/07/17 08:17 12/07/17 08:17 12/07/17 08:17 Oxygen Flow Rate (L/min) 2 Oxygen Delivery Method Room Air Weight: 140 lb 0.002 oz Body Mass Index (BMI) 24.7 Intake and Output for Last 24 Hours 12/05/17 12/06/17 12/07/17 23:59 23:59 23:59 Intake Total 1867 / 1867 1440 / 1440 990 / 990 Output Total 2850 / 2850 1974 / 1974 1110 / 1110 Balance -983 / -983 -535 / -535 -120 / -120 Medical Necessity - Tobacco Use Smoking Status: Never smoker Assessment/Plan All Active Problems (Last Updated 11/21/17 @ 13:34 by Lauren Camarena) Esophageal dysphagia (Acute) Change in bowel habit (Acute) Cecum perforation (Acute) Personal history of colonic polyps (Acute) 72-year-old female status post right preethi-colectomy 1. Patient is tolerating clear liquid diet and will try full liquids this morning. She does report passing gas but she has not a bowel movement yet. If she tolerates full liquids and is passing flatus again today she may be discharged home. If she is not passing any flatus and her distention gets worse or if she is unable to tolerate full liquids I will order a KUB. Renaldo Rodrigez MD Pager: [facility] [address] [place] [address], [address] [place] [address] Office:
[2017-12-07] MEDS: HYDROcodone Bitartrate/Apap 5/325 Tablet PO (12:39)
[2017-12-07 13:57] VITALS: BP 136/68; PULSE 80; RESP 18; TEMP 36.6; O2SAT 99
--- NOTE | 2017-12-10 10:12 | PCM.DC.SUM ---
Discharge Date and Diagnosis Date of Admission: 12/03/17 Date of Discharge: 12/07/17 - Primary Discharge Diagnosis Cecal perforation Hospital Course and Treatment Operations: colectomy - Right hemicolectomy Summary of Care Provided: The patient is a 72 year old F who presented with sudden onset of severe right lower quadrant abdominal pain s/p colonoscopy. Dr. Reid performed an emergent hand-assisted laparoscopic right hemicolectomy on 12/03/17. Patient tolerated the procedure well. Upon discharge she noted some abdominal discomfort. She had positive flatus. No bowel movement. She was tolerating her current diet. Discharge Diet: Light diet - advance as tolerated - if you have questions about your diet instructions, please talk to you doctor. Discharge Activity: May Not Drive - for 1 week or while taking narcotic pain medicine. May shower in (days): 1 Call your doctor if your incision/area has: Continuous Slow Oozing, Sudden Increased Bleeding, Increased Pain/ Swelling, Increased Redness, Foul Smelling Discharge Call your doctor if you observe: Fever of 101 or Higher Suture Line Care: Avoid Pulling/Pushing, Avoid Pinching/Bending Additional Dressing/Incision Instructions:: Change or remove dressing in 4 days. Leave steri-strips in place for 1 week. Home Medications: Medications to take at Discharge Aspirin E.C. [Ecotrin] 81 mg PO DAILY@0800 01/05/17 Atenolol [Tenormin] 25 mg PO DAILY 01/05/17 Calcium Carbonate [Calcium] 500 mg PO BID 01/05/17 Multivitamin [Multiple Vitamins] 1 ea PO DAILY 01/05/17 [place]-3 Fatty Acids [Fish Oil] 500 mg PO DAILY 01/05/17 atorvastatin 20 mg tablet 40 mg PO QHS tab 11/21/17 vitamin E 1,000 unit capsule 400 unit PO DAILY cap 11/21/17 Acetaminophen [Tylenol Tablet] 650 mg PO Q6H PRN PRN tab 12/07/17 Tamsulosin HCl [Flomax] 0.4 mg PO DAILY@1730 #15 cap 12/07/17 hydrocodone 5 mg-acetaminophen 325 mg tablet 1 tab PO Q6H PRN #10 tab 12/09/17 omeprazole 40 mg capsule,delayed release 40 mg PO QDAY 14 Days #14 cap 12/09/17 potassium chloride ER 20 mEq tablet,extended release(part/cryst) 40 meq PO QDAY 10 Days #20 tab 12/11/17 Following Prescrptions Were Given to Patient: Tamsulosin HCl [Flomax] 0.4 mg PO DAILY@1730 #15 cap Primary Care Physician: Gavin Tran MD [Primary Care Provider] - Please Follow Up With: Abner Reid MD - [phone] When: Call to make an appointment to be seen in about 10 days. Disposition: Home Minutes spent on discharge:: 20 Patient Condition:: Good Medical Necessity - Tobacco Use Smoking Status: Never smoker Meaningful Use Info Meaningful Use Diagnoses (Choose all that apply): None applicable Code Visit Inpatient E&M: 38728 Disch Hosp
== END 2017-12-07 16:34 | disposition home or self-care (01) | DRG 329 ==
LOC: ED 18:13 → SDC 19:06 → AC 19:06 → MS3 20:01 → SDC 12-04 08:34 → MS3 12-04 08:34
PROVIDERS: Admitting Provider Surgery; Emergency Provider Emergency Medicine; Family Provider Internal Medicine; PCP Internal Medicine; Visit Provider Surgery
PROC: 0DTF0ZZ Resection of Right Large Intestine, Open Approach (ICD-10-PCS; principal; 2017-12-03 19:00)
DX: K91.89 Other postprocedural complications and disorders of digestive system (principal); K63.1 Perforation of intestine (nontraumatic); K56.7 Ileus, unspecified; Y83.8 Other surgical procedures as the cause of abnormal reaction of the patient, or of later complication, without mention of misadventure at the time of the procedure; Z90.49 Acquired absence of other specified parts of digestive tract; Z86.010 Personal history of colon polyps; K52.9 Noninfective gastroenteritis and colitis, unspecified; K55.20 Angiodysplasia of colon without hemorrhage
CPT/HCPCS: 36415; 74177; 80048; 80053; 81001; 83690; 85025; 88305; 88307; 88342; 97802; 99282; J7030; J7120; Q9967; A4216; J2405

== ENCOUNTER → 2017-12-09 13:27 | Outpatient (CLI) | payer MEDICARE, SELFPAY ==
[2017-12-09 14:33] LABS: Absolute Lymphocyte Count 1.38 X10^3/ul (0.83-4.51); Absolute Neutrophil Count 7.4 X10^3/uL (2.0-7.7); Basophil# 0.02 X10^3/uL; Basophil% 0.2 % (0-1); Eosinophil# 0.09 X10^3/uL; Eosinophils% 0.9 % (0-5); Hematocrit 33.9 % (37-47); Hemoglobin 11.4 g/dl (12.0-15.0); Lymphocyte # 1.38 X10^3/ul (4.0); Lymphocyte % 13.9 % (19-41); Mean Corp Hgb Conc 33.6 g/gl (32-36); Mean Corpuscular Hgb 32.9 pg (27.0-32.0); Mean Corpuscular Volume 97.7 fL (81-99); Mean Platelet Vol. 9.4 fl (6.2-12.0); Monocyte# 0.95 X10^3/uL; Monocyte% 9.6 % (0-10); Neutrophil # 7.37 X10^3/uL (2.7-7.7); Neutrophil % 74.4 % (47-70); POSITIVE COUNT NO; POSITIVE DIFFERENTIAL NO; POSITIVE MORPHOLOGY NO; Platelet Count 317 K/mm3 (150-450); RBC Distribution Width CV 11.8 % (11.6-14.6); RBC Distribution Width SD 40.1 fl (35.1-43.9); Red Blood Count 3.47 M/mm3 (4.2-5.4); White Blood Count 9.9 K/mm3 (4.4-11.0)
[2017-12-09 14:47] LABS: Anion Gap 7 (5-15); BUN 12 mg/dL (7-18); BUN/Creat Ratio 20.1 RATIO (10-20); Calcium,Total 9.2 mg/dL (8.5-10.1); Chloride 104 mmol/L (98-107); EST Glomerular Filtration Rate 105 mL/min (>60); Est Glom Filt Rate - Afr Amer 127 mL/min (>60); Glucose 113 mg/dL (74-106); Potassium 2.9 mmol/L (3.5-5.1); Sodium Level 140 mmol/L (136-145)
== END ==
PROVIDERS: Family Provider Internal Medicine; PCP Internal Medicine; Visit Provider Physician Assistant
DX: R10.9 Unspecified abdominal pain (principal)
CPT/HCPCS: 36415; 80048; 85025

== ENCOUNTER → 2017-12-11 10:10 | Outpatient (CLI) | payer MEDICARE, SELFPAY ==
[2017-12-11 10:52] LABS: Erythrocyte Sedimentation Rate 20 mm/hr (0-30)
== END ==
PROVIDERS: Family Provider Internal Medicine; PCP Internal Medicine; Visit Provider Physician Assistant
DX: R10.9 Unspecified abdominal pain (principal)
CPT/HCPCS: 36415; 74019; 85652

== ENCOUNTER 2017-12-13 05:39 | Inpatient (IN) | payer MEDICARE, SELFPAY ==
[2017-12-13] VITALS (9 sets, daily range): BP systolic 110–139; BP diastolic 46–73; PULSE 68–86; RESP 14–20; TEMP 36.8–37.2; O2SAT 96–100; BMI 24.8; BMI 23.6
--- NOTE | 2017-12-13 06:19 | ED.DCSUM_ITS ---
- ER Visit Summary Date of Service: 12/13/17 Chief Complaint: Abdominal pain History of Present Illness: The patient is a 72 F who presents for abdominal pain with onset last night. Patient had a partial colectomy on December 03 after a perforation status post colonoscopy the prior day. Patient states she has been doing very well at home until last night, when she was unable to roll over in bed without severe pain. She could not get comfortable due to severe pain. She found it more comfortable to walk rather than lay still. She has associated nausea. She has not had a bowel movement for 2 days. She denies diarrhea but is having flatus. Denies any urinary symptoms. No fever. Patient took a MiraLAX yesterday afternoon after getting in touch with her surgeon. Physical Examination: Vital signs: afebrile, hemodynamically stable, no hypoxia on room air General: well nourished, well developed, appears uncomfortable, laying in bed Skin: warm, moist, no rash, pale HEENT: normocephalic and atraumatic; PERRL, EOMI, moist mucous membranes Cardiovascular: regular rate and rhythm without murmurs, no peripheral edema Respiratory: No increased work of breathing, lungs are clear to auscultation bilaterally, no rales, rhonchi or wheezing Abdominal: Abdomen is diffusely tender to light palpation with normoactive bowel sounds, surgical incision inferior to the umbilicus is clean, dry and intact with Steri-Strips in place, no guarding or rebound, fullness in the right lower quadrant with maximal tenderness MSK: Moves all extremities, no deformities, normal strength Neuro: Awake and alert, oriented ?4. No facial droop, sensation and motor function intact and symmetric Test Results: Abnormal Lab Results 12/13/17 12/13/17 12/13/17 06:10 06:10 06:10 WBC 9.9 RBC 3.44 L Hgb 11.0 L Hct 34.0 L MCV 98.8 MCH 32.0 MCHC 32.4 RDW 12.2 RDW Differential 43.9 Plt Count 321 MPV 9.4 Immature Gran % (Auto) 0.300 Neut % (Auto) 77.5 H Lymph % (Auto) 13.0 L [place] % (Auto) 7.6 Eos % (Auto) 1.4 Baso % (Auto) 0.2 Absolute Neuts (auto) 7.7 Absolute Lymphs (auto) 1.28 Total Counted Not Reportable Sodium 139 Potassium 4.2 Chloride 104 Carbon Dioxide 27.0 Anion Gap 8 BUN 14 Creatinine 0.62 Estim Creat Clear Calc 40.83 Est GFR (MDRD) Af Amer 122 Est GFR (MDRD) Non-Af 101 BUN/Creatinine Ratio 22.7 H Glucose 100 Lactic Acid Calcium 8.9 Total Bilirubin 0.60 AST 22 ALT 27 Alkaline Phosphatase 92 Total Protein 7.6 Albumin 3.2 Globulin 4.4 H Albumin/Globulin Ratio 0.7 L Lipase 611 H Urine Color Yellow Urine Clarity Sl. Cloudy Urine pH 8.0 Ur Specific [place] 1.010 Urine Protein Negative Urine Glucose (UA) Normal Urine Ketones Negative Urine Occult Blood Negative Urine Nitrite Negative Urine Bilirubin Negative Urine Urobilinogen Normal Ur Leukocyte Esterase Negative Urine RBC 0 SEEN Urine WBC 0-5 SEEN Ur Squamous Epith Cells 0-5 SEEN Amorphous Sediment 1+ Urine Bacteria RARE Urine Mucus 0 SEEN 12/13/17 06:30 WBC RBC Hgb Hct MCV MCH MCHC RDW RDW Differential Plt Count MPV Immature Gran % (Auto) Neut % (Auto) Lymph % (Auto) [place] % (Auto) Eos % (Auto) Baso % (Auto) Absolute Neuts (auto) Absolute Lymphs (auto) Total Counted Sodium Potassium Chloride Carbon Dioxide Anion Gap BUN Creatinine Estim Creat Clear Calc Est GFR (MDRD) Af Amer Est GFR (MDRD) Non-Af BUN/Creatinine Ratio Glucose Lactic Acid 1.1 Calcium Total Bilirubin AST ALT Alkaline Phosphatase Total Protein Albumin Globulin Albumin/Globulin Ratio Lipase Urine Color Urine Clarity Urine pH Ur Specific [place] Urine Protein Urine Glucose (UA) Urine Ketones Urine Occult Blood Urine Nitrite Urine Bilirubin Urine Urobilinogen Ur Leukocyte Esterase Urine RBC Urine WBC Ur Squamous Epith Cells Amorphous Sediment Urine Bacteria Urine Mucus Clinical Impression(s) from Imaging Studies Abdomen/Pelvis CT 12/13/17 06:16 IMPRESSION: Irregular fluid and air collection adjacent to the recent colon resection on the right concerning for postoperative abscess. Free pelvic fluid. Multiple gallstones. Pericholecystic fatty stranding is now present. The possibility of acute cholecystitis is not excluded. Electronically Signed: Miguel Mora MD at 7:25 EDT Tel , Service support , Emergency Department Course and Treatment: Patient was given IV fluids, morphine and Zofran for symptomatic relief. Labs showed no leukocytosis, no electrolyte derangements. Lipase was modestly elevated at 611, which is a change from 1 week ago. Urine was negative for infection. CT of the abdomen and pelvis with contrast was performed and was concerning for possible postoperative abscess, and also had findings consistent with possible acute cholecystitis. Patient was discussed with Dr. Adrian, who will evaluate the patient in the emergency department. Patient currently is afebrile, has no leukocytosis and has a normal white count. Thus antibiotics will be held pending evaluation by Dr. Adrian. Final disposition is pending his evaluation of the patient. 0740: Patient pain improved after morphine but still somewhat uncomfortable. Patient received Dilaudid for further pain control. Treatment Plan: [] Disposition: [] Impression: post-operative pain This note was generated with [employer] dictation software. It may contain incorrect words, spelling, and punctuation that were not noted in review of the chart prior to signing ED Disposition - Plan for ED Patient: Chief Complaint: Abd Pain Referrals: Gavin Tran MD [Primary Care Provider] -
[2017-12-13] MEDS: Ondansetron 4 MG/2 ML Vial IV (06:42)
[2017-12-13] MEDS: 0.9% Normal Saline 1,000 ML 1000 ML IV (06:42)
[2017-12-13 06:43] LABS: Mucous, Urine 0 SEEN /hpf (<or=2+); Red Blood Cells-Urine 0 SEEN /hpf (0-5)
[2017-12-13] MEDS: Morphine 4 MG/ML Syringe IV (06:43)
[2017-12-13 06:45] LABS: Color, Urine Yellow (Yellow); Glucose, Dipstick Normal (Normal); Ketone-Dipstick Negative (Negative); Leukocyte Esterase-Dipstick Negative /ul (Negative); Nitrite-Dipstick Negative (Negative); Occult Blood-Urine Negative /ul (Negative); Protein-Dipstick Negative (Negative); Urine Bilirubin Dipstick Negative (Negative); Urine Clarity Sl. Cloudy (Clear); Urine Urobilinogen Normal (Normal)
[2017-12-13 06:47] LABS: Absolute Lymphocyte Count 1.28 X10^3/ul (0.83-4.51); Absolute Neutrophil Count 7.7 X10^3/uL (2.0-7.7); Basophil# 0.02 X10^3/uL; Basophil% 0.2 % (0-1); Eosinophil# 0.14 X10^3/uL; Eosinophils% 1.4 % (0-5); Lymphocyte # 1.28 X10^3/ul (4.0); Mean Corp Hgb Conc 32.4 g/gl (32-36); Mean Corpuscular Volume 98.8 fL (81-99); Mean Platelet Vol. 9.4 fl (6.2-12.0); Monocyte# 0.75 X10^3/uL; Monocyte% 7.6 % (0-10); Neutrophil # 7.65 X10^3/uL (2.7-7.7); Neutrophil % 77.5 % (47-70); POSITIVE COUNT NO; POSITIVE DIFFERENTIAL NO; POSITIVE MORPHOLOGY NO; Platelet Count 321 K/mm3 (150-450); RBC Distribution Width CV 12.2 % (11.6-14.6); RBC Distribution Width SD 43.9 fl (35.1-43.9); Red Blood Count 3.44 M/mm3 (4.2-5.4); White Blood Count 9.9 K/mm3 (4.4-11.0)
[2017-12-13 06:51] LABS: Amorphous Sediment 1+; Bacteria RARE /hpf (None Seen); Squamous Epithelial Cells - UA 0-5 SEEN /hpf (5-10); White Blood Cells 0-5 SEEN /hpf (0-5)
[2017-12-13 07:00] LABS: ALB/GLOB Ratio 0.7 RATIO (0.9-2.4); AST(SGOT) 22 U/L (15-37); Alanine Aminotransfer ALT/SGPT 27 U/L (13-56); Albumin, Serum 3.2 g/dL (3.2-5.0); Alkaline Phosphatase 92 U/L (45-117); Anion Gap 8 (5-15); BUN 14 mg/dL (7-18); BUN/Creat Ratio 22.7 RATIO (10-20); Calcium,Total 8.9 mg/dL (8.5-10.1); Chloride 104 mmol/L (98-107); Creatinine, Serum 0.62 mg/dL (0.55-1.02); EST Glomerular Filtration Rate 101 mL/min (>60); Est Glom Filt Rate - Afr Amer 122 mL/min (>60); Estimated Creatinine Clearance 40.83 ml/min; Globulin 4.4 g/dL (2.2-4.2); Glucose 100 mg/dL (74-106); Lipase 611 U/L (73-393); Potassium 4.2 mmol/L (3.5-5.1); Protein, Total 7.6 g/dL (6.4-8.2); Sodium Level 139 mmol/L (136-145)
[2017-12-13 07:10] LABS: Lactic Acid 1.1 mmol/L (0.4-2.0)
--- NOTE | 2017-12-13 07:45 | ED.RN ---
PATIENT DENIES NEED FOR MORE PAIN MEDICATION. RESTING COMFORTABLY IN BED.
--- NOTE | 2017-12-13 08:47 | ED.RN ---
PATIENT RESTING WITH EYES CLOSED. DENIES NEED FOR MORE PAIN MEDICATION AT THIS TIME.
--- NOTE | 2017-12-13 10:08 | PCM.HP.STD ---
Problem List (1) RLQ abdominal pain Status: Acute History of Present Illness Date of Admission: 12/13/17 The patient is a 72 F who presents for abdominal pain with onset last night. Patient had a partial colectomy on December 03 after a perforation status post colonoscopy the prior day. Patient states she has been doing very well at home until last night, when she was unable to roll over in bed without severe pain. She could not get comfortable due to severe pain. She found it more comfortable to walk rather than lay still. She has associated nausea. She has not had a bowel movement for 2 days. She denies diarrhea but is having flatus. Denies any urinary symptoms. No fever. Patient took a MiraLAX yesterday afternoon after getting in touch with her surgeon. A CT scan of the abdomen and pelvis with IV but not oral contrast was obtained. IMPRESSION: Irregular fluid and air collection adjacent to the recent colon resection on the right concerning for postoperative abscess. Free pelvic fluid. Multiple gallstones. Pericholecystic fatty stranding is now present. The possibility of acute cholecystitis is not excluded. Since being in the emergency department her pain has improved. But is not completely gone away. She is passing flatus. Past Medical History Medical History: Medical History (Last Reviewed 12/13/17 @ 10:11 by Cristi Adrian MD) Personal history of colonic polyps (Acute) Z86.010 Blood in stool K92.1 Constipation K59.00 Diarrhea R19.7 Hemorrhoids K64.9 Stroke I63.9 Allergies clindamycin Allergy (Intermediate, Verified 12/11/17 09:29) nausea/vomiting sulfamethoxazole [From Bactrim] Allergy (Intermediate, Verified 12/11/17 09:29) nausea/vomiting trimethoprim [From Bactrim] Allergy (Intermediate, Verified 12/11/17 09:29) nausea/vomiting Gadolinium-MRI Contrast Medium Allergy (Verified 12/11/17 09:29) Hives levofloxacin [From Levaquin] Adverse Reaction (Verified 12/11/17 09:29) Nausea metronidazole [From Flagyl] Adverse Reaction (Verified 12/11/17 09:29) Nausea Home Medications: Ambulatory Orders Medication Instructions Recorded Atenolol [Tenormin] 25 mg PO DAILY 01/05/17 Calcium Carbonate [Calcium] 500 mg PO BID 01/05/17 Multivitamin [Multiple Vitamins] 1 ea PO DAILY 01/05/17 atorvastatin 20 mg tablet 40 mg PO QHS tab 11/21/17 vitamin E 1,000 unit capsule 400 unit PO DAILY cap 11/21/17 Acetaminophen [Tylenol Tablet] 650 mg PO Q6H PRN PRN tab 12/07/17 Tamsulosin HCl [Flomax] 0.4 mg PO DAILY@1730 #15 cap 12/07/17 hydrocodone 5 mg-acetaminophen 325 1 tab PO Q6H PRN #10 tab 12/09/17 mg tablet omeprazole 40 mg capsule,delayed 40 mg PO QDAY 14 Days #14 cap 12/09/17 release potassium chloride ER 20 mEq 40 meq PO QDAY 10 Days #20 tab 12/11/17 tablet,extended release(part/cryst) Surgical History: Surgical History (Last Reviewed 12/09/17 @ 14:16 by Lauren Camarena) History of colectomy Z90.49 History of hemorrhoidectomy Z98.890 History of hysterectomy Z90.710 History of removal of ovarian cyst Z98.890, Z87.42 History of spinal fusion Z98.1 Smoking Status: Never smoker Review of Systems Constitutional: Denies: Chills, Fever, Night Sweats Cardiovascular: Denies: Chest Pain, Chest Pressure, Chest Tightness, Palpitations Respiratory: Denies: Cough, Hemoptysis, Shortness of breath at rest, Shortness of breath upon exertion, Wheezing Gastrointestinal: Reports: Abdominal Pain, Nausea. Denies: Vomiting Genitourinary: Denies: Dysuria, Frequency, Hematuria, Urgency Neurological: Denies: Change in Speech, Confusion, Numbness, Tingling, Seizures VTE Information - Inpt Only VTE Present on Admission: No VTE Mechan Device Prophylaxis: SCD's VTE Pharm Prophylaxis ordered?: No Reason prophylaxis not ordered:: Treatment Not Indicated Patient Problems: Active and Suspected Problems (Last Reviewed 12/13/17 @ 10:11 by Cristi Adiran MD) RLQ abdominal pain (Acute) - Physical Exam General: Alert, Oriented x3 Lungs: Clear to auscultation Cardiovascular: Regular rate, Regular Rhythm, No murmurs Abdomen: Bowel Sounds Present, Tender - Patient has tenderness mostly in the lower abdomen. She has voluntary guarding. She has no rebound or peritoneal signs Vital Signs Temp Pulse Resp BP Pulse Ox 98.3 F 77 20 H 131/65 H 99 12/13/17 05:40 12/13/17 09:57 12/13/17 09:57 12/13/17 09:57 12/13/17 09:57 Assessment/Plan All Active Problems (Last Reviewed 12/13/17 @ 10:11 by Cristi Adrian MD) Esophageal dysphagia (Acute) Change in bowel habit (Acute) Cecum perforation (Acute) RLQ abdominal pain (Acute) Personal history of colonic polyps (Acute) This point I am going to admit the patient for IV hydration and observation. I do not want to start her on any antibiotics at this time. Given the fact that she has no fever normal white count and normal vital signs. I believe it will be okay for her to be on clear liquids. And I will recheck a white count in the morning. If she has any changes in her constitutional symptoms or objective vital signs or elevation in white count we will initiate IV antibiotics. I do not believe are dealing with acute cholecystitis at this time but we will recheck her LFTs in the morning as well. We will encourage her to ambulate and do deep breathing.
[2017-12-13] MEDS: HYDROmorphone 0.5 MG/0.5 ML SYRINGE IV (10:40)
[2017-12-13] MEDS: Lactated Ringers 1,000 ML 75 ML IV ×2 (12:25→21:47)
[2017-12-13] MEDS: 0.9% NaCl Peripheral Flush Adult/Peds IV (12:25)
[2017-12-13] MEDS: HYDROcodone Bitartrate/Apap 5/325 Tablet PO ×2 (15:06→21:43)
[2017-12-13] MEDS: Tamsulosin HCl 0.4 MG Capsule PO (17:33)
[2017-12-13] MEDS: Atorvastatin Calcium 40 MG Tablet PO (20:38)
[2017-12-14 03:15] VITALS: BP 127/62; PULSE 79; RESP 18; TEMP 36.7; O2SAT 96
[2017-12-14] MEDS: HYDROcodone Bitartrate/Apap 5/325 Tablet PO ×4 (03:45→22:45)
[2017-12-14 06:24] LABS: Absolute Lymphocyte Count 1.16 X10^3/ul (0.83-4.51); Absolute Neutrophil Count 6.7 X10^3/uL (2.0-7.7); Basophil# 0.01 X10^3/uL; Basophil% 0.1 % (0-1); Eosinophil# 0.14 X10^3/uL; Eosinophils% 1.6 % (0-5); Hematocrit 30.3 % (37-47); Hemoglobin 9.8 g/dl (12.0-15.0); Lymphocyte # 1.16 X10^3/ul (4.0); Lymphocyte % 13.3 % (19-41); Mean Corp Hgb Conc 32.3 g/gl (32-36); Mean Corpuscular Hgb 32.2 pg (27.0-32.0); Mean Corpuscular Volume 99.7 fL (81-99); Mean Platelet Vol. 9.3 fl (6.2-12.0); Monocyte# 0.65 X10^3/uL; Monocyte% 7.5 % (0-10); Neutrophil # 6.71 X10^3/uL (2.7-7.7); Neutrophil % 76.9 % (47-70); Platelet Count 296 K/mm3 (150-450); RBC Distribution Width CV 11.6 % (11.6-14.6); RBC Distribution Width SD 40.8 fl (35.1-43.9); Red Blood Count 3.04 M/mm3 (4.2-5.4); White Blood Count 8.7 K/mm3 (4.4-11.0)
[2017-12-14 06:27] LABS: POSITIVE COUNT NO; POSITIVE DIFFERENTIAL NO; POSITIVE MORPHOLOGY NO
[2017-12-14 06:41] LABS: ALB/GLOB Ratio 0.8 RATIO (0.9-2.4); AST(SGOT) 16 U/L (15-37); Alanine Aminotransfer ALT/SGPT 19 U/L (13-56); Albumin, Serum 2.8 g/dL (3.2-5.0); Alkaline Phosphatase 81 U/L (45-117); Anion Gap 7 (5-15); BUN 9 mg/dL (7-18); BUN/Creat Ratio 17.3 RATIO (10-20); Calcium,Total 8.4 mg/dL (8.5-10.1); Chloride 106 mmol/L (98-107); Creatinine, Serum 0.52 mg/dL (0.55-1.02); EST Glomerular Filtration Rate 123 mL/min (>60); Est Glom Filt Rate - Afr Amer 149 mL/min (>60); Estimated Creatinine Clearance 40.83 ml/min; Globulin 3.6 g/dL (2.2-4.2); Glucose 94 mg/dL (74-106); Protein, Total 6.4 g/dL (6.4-8.2); Sodium Level 140 mmol/L (136-145)
[2017-12-14] MEDS: Pantoprazole Sodium 40 MG Tablet PO (09:03)
[2017-12-14] MEDS: Atenolol 25 MG Tablet PO (09:03)
[2017-12-14 09:07] VITALS: BP 120/54; PULSE 97; RESP 18; TEMP 37; O2SAT 99
--- NOTE | 2017-12-14 10:10 | PCM.PN.SRG ---
Patient Problems: Active and Suspected Problems (Last Reviewed 12/13/17 @ 10:11 by Cristi Adrian MD) RLQ abdominal pain (Acute) Subjective: No real change in her pain. She feels like she needs to have a bowel movement. She has no nausea no vomiting Objective: Patient remains diffusely tender she is voluntarily guarding. - Physical Exam Vital Signs Temp Pulse Resp BP Pulse Ox 98.6 F 97 18 120/54 L 99 12/14/17 09:07 12/14/17 09:07 12/14/17 09:07 12/14/17 09:07 12/14/17 09:07 Oxygen Delivery Method Room Air Weight: 133 lb 8 oz Body Mass Index (BMI) 23.6 Intake and Output for Last 24 Hours 12/12/17 12/13/17 12/14/17 23:59 23:59 23:59 Intake Total 1461 / 1461 758 / 758 Output Total 1100 / 1100 950 / 950 Balance 361 / 361 -192 / -192 Laboratory Tests Past 24 Hrs 12/14/17 12/14/17 06:00 06:00 WBC 8.7 RBC 3.04 L Hgb 9.8 L Hct 30.3 L MCV 99.7 H MCH 32.2 H MCHC 32.3 RDW 11.6 RDW Differential 40.8 Plt Count 296 MPV 9.3 Immature Gran % (Auto) 0.600 Neut % (Auto) 76.9 H Lymph % (Auto) 13.3 L [place] % (Auto) 7.5 Eos % (Auto) 1.6 Baso % (Auto) 0.1 Absolute Neuts (auto) 6.7 Absolute Lymphs (auto) 1.16 Total Counted Not Reportable Sodium 140 Potassium 4.0 Chloride 106 Carbon Dioxide 27.0 Anion Gap 7 BUN 9 Creatinine 0.52 L Estim Creat Clear Calc 40.83 Est GFR (MDRD) Af Amer 149 Est GFR (MDRD) Non-Af 123 BUN/Creatinine Ratio 17.3 Glucose 94 Calcium 8.4 L Total Bilirubin 0.60 AST 16 ALT 19 Alkaline Phosphatase 81 Total Protein 6.4 Albumin 2.8 L Globulin 3.6 Albumin/Globulin Ratio 0.8 L Medical Necessity - Tobacco Use Smoking Status: Never smoker Assessment/Plan All Active Problems (Last Reviewed 12/13/17 @ 10:11 by Cristi Adrian MD) Esophageal dysphagia (Acute) Change in bowel habit (Acute) Cecum perforation (Acute) RLQ abdominal pain (Acute) Personal history of colonic polyps (Acute) I am going to repeat a CAT scan with both IV and p.o. contrast today. For someone who has normal vital signs normal white count no fever, she looks miserable. I was hoping I could hold off giving her antibiotics and I think I am going to need to have a CAT scan to see if there is more of an increase of inflammation or possible abscess formation.
[2017-12-14] MEDS: Lactated Ringers 1,000 ML 75 ML IV (12:25)
[2017-12-14] MEDS: Piperacil/Tazobactam 3.375 GM/50 ML ML IV (16:24)
[2017-12-14] MEDS: Tamsulosin HCl 0.4 MG Capsule PO (18:03)
[2017-12-14 18:13] VITALS: BP 116/50; PULSE 73; RESP 18; TEMP 37; O2SAT 96
[2017-12-14] MEDS: Atorvastatin Calcium 40 MG Tablet PO (22:45)
[2017-12-14 22:50] VITALS: BP 123/59; PULSE 83; RESP 14; TEMP 37.1; O2SAT 98
[2017-12-15] VITALS (10 sets, daily range): BP systolic 105–149; BP diastolic 45–66; PULSE 66–92; RESP 14–26; TEMP 36.9–37; O2SAT 93–98
[2017-12-15] MEDS: Lactated Ringers 1,000 ML 75 ML IV ×2 (03:19→18:25)
[2017-12-15] MEDS: Piperacil/Tazobactam 3.375 GM/50 ML ML IV ×3 (05:45→22:39)
--- NOTE | 2017-12-15 05:52 | PCM.PN.SRG ---
Patient Problems: Active and Suspected Problems (Last Reviewed 12/13/17 @ 10:11 by Cristi Adrian MD) RLQ abdominal pain (Acute) Subjective: Pt improved over admission but still quite painful Small amount of stool - Physical Exam General: Alert, Oriented x3, Cooperative, No apparent distress Abdomen: Bowel Sounds Present - quite tender RLQ with rebound and guarding, Soft Vital Signs Temp Pulse Resp BP Pulse Ox 98.6 F 75 14 115/56 L 95 12/15/17 02:14 12/15/17 02:14 12/15/17 02:14 12/15/17 02:14 12/15/17 02:14 Oxygen Delivery Method Room Air Weight: 133 lb 9.602 oz Body Mass Index (BMI) 23.6 Intake and Output for Last 24 Hours 12/13/17 12/14/17 12/15/17 23:59 23:59 23:59 Intake Total 1461 / 1461 2573 / 2573 1363 / 1363 Output Total 1100 / 1100 2850 / 2850 Balance 361 / 361 -277 / -277 1363 / 1363 Laboratory Tests Past 24 Hrs 12/14/17 12/14/17 12/15/17 06:00 06:00 05:20 WBC 8.7 RBC 3.04 L Hgb 9.8 L Hct 30.3 L MCV 99.7 H MCH 32.2 H MCHC 32.3 RDW 11.6 RDW Differential 40.8 Plt Count 296 MPV 9.3 Immature Gran % (Auto) 0.600 Neut % (Auto) 76.9 H Lymph % (Auto) 13.3 L [place] % (Auto) 7.5 Eos % (Auto) 1.6 Baso % (Auto) 0.1 Absolute Neuts (auto) 6.7 Absolute Lymphs (auto) 1.16 Total Counted Not Reportable PT Pending INR Pending APTT Pending Sodium 140 Potassium 4.0 Chloride 106 Carbon Dioxide 27.0 Anion Gap 7 BUN 9 Creatinine 0.52 L Estim Creat Clear Calc 40.83 Est GFR (MDRD) Af Amer 149 Est GFR (MDRD) Non-Af 123 BUN/Creatinine Ratio 17.3 Glucose 94 Calcium 8.4 L Total Bilirubin 0.60 AST 16 ALT 19 Alkaline Phosphatase 81 Total Protein 6.4 Albumin 2.8 L Globulin 3.6 Albumin/Globulin Ratio 0.8 L Medical Necessity - Tobacco Use Smoking Status: Never smoker Assessment/Plan All Active Problems (Last Reviewed 12/13/17 @ 10:11 by Cristi Adrian MD) Esophageal dysphagia (Acute) Change in bowel habit (Acute) Cecum perforation (Acute) RLQ abdominal pain (Acute) Personal history of colonic polyps (Acute) Will hopefully proceed with CT drainage today Appreciate very much Dr Adrian's assist with admission and care
[2017-12-15 06:08] LABS: International Normalized Ratio 1.1; Prothrombin Time (Protime)PT. 14.4 SECONDS (11.7-14.9)
[2017-12-15 06:09] LABS: Partial Thromboplast Time 39.4 Seconds (24.1-36.2)
[2017-12-15] MEDS: Atenolol 25 MG Tablet PO (11:41)
[2017-12-15] MEDS: Pantoprazole Sodium 40 MG Tablet PO (11:42)
[2017-12-15] MEDS: HYDROcodone Bitartrate/Apap 5/325 Tablet PO ×2 (11:49→22:39)
--- NOTE | 2017-12-15 13:05 | CASEMGMT ---
See RN CM Assessment Link. DC PLAN: Home No needs identified, pt denies DME use. Pt's is able to assist. Shon GAMINGN RN ACM
[2017-12-15] MEDS: Tamsulosin HCl 0.4 MG Capsule PO (18:24)
[2017-12-15] MEDS: Atorvastatin Calcium 40 MG Tablet PO (22:39)
[2017-12-16 02:47] VITALS: BP 116/50; PULSE 71; RESP 14; TEMP 37.1; O2SAT 93
--- NOTE | 2017-12-16 05:33 | PCM.PN.SRG ---
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 Vital Signs Temp Pulse Resp BP Pulse Ox 98.7 F 71 14 116/50 L 93 12/16/17 02:47 12/16/17 02:47 12/16/17 02:47 12/16/17 02:47 12/16/17 02:47 Oxygen Delivery Method [5] Room Air Oxygen Delivery Method [4] Room Air Oxygen Delivery Method [3] Room Air Oxygen Delivery Method [2] Room Air Oxygen Delivery Method [1 ( Room Air Initial Baseline)] Oxygen Delivery Method Room Air Intake and Output for Last 24 Hours 12/14/17 12/15/17 12/16/17 23:59 23:59 23:59 Intake Total 1923 / 3286 921 / 921 Output Total 1835 / 1835 400 / 400 Balance 88 / 1451 521 / 521 Medical Necessity - Tobacco Use Smoking Status: Never smoker Assessment/Plan All Active Problems (Last Reviewed 12/13/17 @ 10:11 by Cristi Adrian MD) Esophageal dysphagia (Acute) Change in bowel habit (Acute) Cecum perforation (Acute) RLQ abdominal pain (Acute) Personal history of colonic polyps (Acute) MICHEL output does not have fecal appearance Findings c/w infected hematoma, resolving with drainage Hopeful home tomorrow
[2017-12-16] MEDS: Piperacil/Tazobactam 3.375 GM/50 ML ML IV ×3 (06:12→22:13)
[2017-12-16] MEDS: Lactated Ringers 1,000 ML 30 ML IV (07:58)
[2017-12-16] MEDS: Atenolol 25 MG Tablet PO (07:58)
[2017-12-16] MEDS: Pantoprazole Sodium 40 MG Tablet PO (07:58)
[2017-12-16] MEDS: HYDROcodone Bitartrate/Apap 5/325 Tablet PO ×3 (07:58→22:13)
[2017-12-16 08:00] VITALS: BP 148/61; PULSE 78; RESP 16; TEMP 36.7; O2SAT 98
[2017-12-16 15:00] VITALS: BP 124/60; PULSE 76; RESP 16; TEMP 37.1; O2SAT 99
[2017-12-16] MEDS: Tamsulosin HCl 0.4 MG Capsule PO (17:47)
[2017-12-16 22:01] VITALS: BP 131/66; PULSE 78; RESP 14; TEMP 37.1; O2SAT 100
[2017-12-16] MEDS: Atorvastatin Calcium 40 MG Tablet PO (22:13)
[2017-12-17 03:01] VITALS: BP 112/53; PULSE 74; RESP 14; TEMP 36.8; O2SAT 96
[2017-12-17] MEDS: Piperacil/Tazobactam 3.375 GM/50 ML ML IV ×2 (05:40→14:27)
--- NOTE | 2017-12-17 06:00 | PCM.PN.SRG ---
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 RLQ - Physical Exam Abdomen: Bowel Sounds Present - MICHEL more serosanquinous, Soft Vital Signs Temp Pulse Resp BP Pulse Ox 98.3 F 74 14 112/53 L 96 12/17/17 03:01 12/17/17 03:01 12/17/17 03:01 12/17/17 03:01 12/17/17 03:01 Oxygen Delivery Method [5] Room Air Oxygen Delivery Method [4] Room Air Oxygen Delivery Method [3] Room Air Oxygen Delivery Method [2] Room Air Oxygen Delivery Method [1 ( Room Air Initial Baseline)] Oxygen Delivery Method Room Air Intake and Output for Last 24 Hours 12/15/17 12/16/17 12/17/17 23:59 23:59 23:59 Intake Total 1923 / 3286 2966 / 2966 917 / 917 Output Total 1835 / 1835 2352 / 2352 Balance 88 / 1451 614 / 614 917 / 917 Microbiology Past 72 Hours 12/15/17 10:30 Gram Stain - Final Aspirate - Abdominal Wound Culture - 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
--- NOTE | 2017-12-17 06:21 | PCM.DC.SUM ---
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 CT scan suggested a fluid collection adjacent to the anastomosis. White blood cell count did not show signs of infection and blood cultures were unremarkable. A repeat CT done with double contrast suggested possible infection so the patient was initiated on Zosyn antibiotic. The subsequent day December [address] scan guided drainage of this material. It appeared to be a mixture of old blood and some pus. Cultures show gram negative talisha lactose hyperion essbase developer. That collection seemed to improve rapidly with rapidly diminishing MICHEL output. The patient was able to be maintained on a regular diet. She did have some urinary retention/rectal pressure symptoms of unclear etiology but which improved with conservative measures. By December 17, 2017 she was tolerating a regular diet had remained afebrile throughout her course had markedly diminished MICHEL output and was felt made recovery to allow for discharge. Discharge antibiotic will be selected pending culture results. Pt became very tearful at potential discharge on 12/17 so we pursued enema and repeat CT. I had Dr Adrian seen pt as well. CT shows abscess resolved. I had ID see pt. I administered more enemas and a flex sig with no acute findings. Pt ready for discharge on 12/19 with Ab with assistance of Dr Bejarano ([facility]). Cultures grew E. Coli. Home Medications: Medications to take at Discharge Atenolol [Tenormin] 25 mg PO DAILY 01/05/17 Calcium Carbonate [Calcium] 500 mg PO BID 01/05/17 Multivitamin [Multiple Vitamins] 1 ea PO DAILY 01/05/17 atorvastatin 20 mg tablet 40 mg PO QHS tab 11/21/17 vitamin E 1,000 unit capsule 400 unit PO DAILY cap 11/21/17 Acetaminophen [Tylenol Tablet] 650 mg PO Q6H PRN PRN tab 12/07/17 Tamsulosin HCl [Flomax] 0.4 mg PO DAILY@1730 #15 cap 12/07/17 hydrocodone 5 mg-acetaminophen 325 mg tablet 1 tab PO Q6H PRN #10 tab 12/09/17 omeprazole 40 mg capsule,delayed release 40 mg PO QDAY 14 Days #14 cap 12/09/17 potassium chloride ER 20 mEq tablet,extended release(part/cryst) 40 meq PO QDAY 10 Days #20 tab 12/11/17 Hydrocortisone [Anusol Hc] 25 mg RECTAL TID PRN PRN #20 suppos. 12/19/17 Polyethylene Glycol 3350 [Miralax] 17 gm PO DAILY 30 Days #30 packet 12/19/17 Witch Elena [Tucks] 1 ea TP TID PRN PRN #60 med..pad 12/19/17 Following Prescrptions Were Given to Patient: Hydrocortisone [Anusol Hc] 25 mg RECTAL TID PRN PRN #20 suppos. PRN Reason: pain, swelling Polyethylene Glycol 3350 [Miralax] 17 gm PO DAILY 30 Days #30 packet Witch Elena [Tucks] 1 ea TP TID PRN PRN #60 med..pad PRN Reason: anal pain Primary Care Physician: Gavin Tran MD [Primary Care Provider] - Please Follow Up With: Abner Reid MD When: Office appt approximately one week please [phone] Medical Necessity - Tobacco Use Smoking Status: Never smoker Meaningful Use Info Meaningful Use Diagnoses (Choose all that apply): None applicable
[2017-12-17 07:58] VITALS: PULSE 70
[2017-12-17] MEDS: HYDROcodone Bitartrate/Apap 5/325 Tablet PO ×3 (08:09→21:51)
[2017-12-17 10:51] VITALS: BP 121/56; PULSE 72; RESP 16; TEMP 37.2; O2SAT 97
[2017-12-17] MEDS: Pantoprazole Sodium 40 MG Tablet PO (10:53)
[2017-12-17] MEDS: Atenolol 25 MG Tablet PO (10:53)
--- NOTE | 2017-12-17 11:19 | NURSING ---
1100 500 ns enema given, could not hold very long, had mod amt of stool with return of flds. Denied campiness while administered, solution was warmed prior to administration, and denied that it was to cold or too warm.
[2017-12-17 14:26] VITALS: BP 119/53; PULSE 73; RESP 18; TEMP 36.8; O2SAT 100
[2017-12-17] MEDS: Lactated Ringers 1,000 ML 30 ML IV (14:52)
[2017-12-17] MEDS: 0.9% NaCl Peripheral Flush Adult/Peds IV ×2 (18:24→20:12)
[2017-12-17] MEDS: Tamsulosin HCl 0.4 MG Capsule PO (18:28)
[2017-12-17 20:24] VITALS: BP 126/55; PULSE 76; RESP 18; TEMP 37.1; O2SAT 100
[2017-12-17] MEDS: Atorvastatin Calcium 40 MG Tablet PO (21:51)
[2017-12-18 02:45] VITALS: BP 135/66; PULSE 79; RESP 18; TEMP 36.6; O2SAT 96
--- NOTE | 2017-12-18 05:53 | PCM.PN.SRG ---
Patient Problems: Active and Suspected Problems (Last Reviewed 12/13/17 @ 10:11 by Cristi Adrian MD) RLQ abdominal pain (Acute) Subjective: Pt very anxious this am Afraid of pain--rectal pressure Multiple stools last night CT: collection resolved - Physical Exam Abdomen: Bowel Sounds Present, Soft, Distended, Tender Vital Signs Temp Pulse Resp BP Pulse Ox 97.9 F 79 18 135/66 H 96 12/18/17 02:45 12/18/17 02:45 12/18/17 02:45 12/18/17 02:45 12/18/17 02:45 Oxygen Delivery Method [5] Room Air Oxygen Delivery Method [4] Room Air Oxygen Delivery Method [3] Room Air Oxygen Delivery Method [2] Room Air Oxygen Delivery Method [1 ( Room Air Initial Baseline)] Oxygen Delivery Method Room Air Weight: 133 lb 9.602 oz Intake and Output for Last 24 Hours 12/16/17 12/17/17 12/18/17 23:59 23:59 23:59 Intake Total 2966 / 2966 3064 / 3064 775 / 775 Output Total 2352 / 2352 1200 / 1200 Balance 614 / 614 1864 / 1864 775 / 775 Microbiology Past 72 Hours 12/15/17 10:30 Gram Stain - Final Aspirate - Abdominal Wound Culture - Final Escherichia coli Anaerobic Culture - Preliminary Checking for anaerobes, further studies to follow. Medical Necessity - Tobacco Use Smoking Status: Never smoker Assessment/Plan All Active Problems (Last Reviewed 12/13/17 @ 10:11 by Cristi Adrian MD) Esophageal dysphagia (Acute) Change in bowel habit (Acute) Cecum perforation (Acute) RLQ abdominal pain (Acute) Personal history of colonic polyps (Acute) ID to see pt today Will ask Dr Adrian to stop by Despite multiple stools last night pt on rectal exam has significant soft stool in rectal vault and hemorrhoidal swelling.This may all be a local impaction problem with hemorrhoids. Will treat aggressively with enemas to try to clear.
[2017-12-18] MEDS: HYDROcodone Bitartrate/Apap 5/325 Tablet PO ×2 (07:41→22:13)
[2017-12-18 07:49] VITALS: BP 136/66; PULSE 88; RESP 16; TEMP 37.1; O2SAT 99
--- NOTE | 2017-12-18 09:35 | NURSING ---
soap suds enema given pt pass 2 small formed stools.
[2017-12-18] MEDS: Atenolol 25 MG Tablet PO (09:38)
[2017-12-18] MEDS: Pantoprazole Sodium 40 MG Tablet PO (09:38)
--- NOTE | 2017-12-18 09:40 | PCM.HP.ID ---
Reason for Consult: Postoperative intra-abdominal abscess Consulted by: Dr. Reid History of Present Illness: The patient is a 72 year old F [] This is a 72-year-old white female with a history of lower GI bleed and earlier this month on 02 December underwent a colonoscopy with ?2 cauterized the bleeding. The following day she developed some abdominal pain and was taken to surgery for right hemicolectomy. Her postop course initially was uneventful. She then developed some localized abdominal pain is found to have fluid collection adjacent to the anastomosis site. During this hospitalization she underwent successful percutaneous drainage of the intra-abdominal collection. Drainage aspirate grew out E. coli with sensitivities reviewed. Patient is currently on parenteral antimicrobial therapy and overall clinically stable. Follow-up CT scan done last evening showed resolution of the collection. She she has the percutaneous drain in place with scant serosanguineous fluid. No fevers. Currently on daily ertapenem which started yesterday evening. - Medical History Allergies/Adverse Reactions: Allergies clindamycin Allergy (Intermediate, Verified 12/11/17 09:29) nausea/vomiting sulfamethoxazole [From Bactrim] Allergy (Intermediate, Verified 12/11/17 09:29) nausea/vomiting trimethoprim [From Bactrim] Allergy (Intermediate, Verified 12/11/17 09:29) nausea/vomiting Gadolinium-MRI Contrast Medium Allergy (Verified 12/11/17 09:29) Hives levofloxacin [From Levaquin] Adverse Reaction (Verified 12/11/17 09:29) Nausea metronidazole [From Flagyl] Adverse Reaction (Verified 12/11/17 09:29) Nausea Home Medications: Ambulatory Orders Medication Instructions Recorded Atenolol [Tenormin] 25 mg PO DAILY 01/05/17 Calcium Carbonate [Calcium] 500 mg PO BID 01/05/17 Multivitamin [Multiple Vitamins] 1 ea PO DAILY 01/05/17 atorvastatin 20 mg tablet 40 mg PO QHS tab 11/21/17 vitamin E 1,000 unit capsule 400 unit PO DAILY cap 11/21/17 Acetaminophen [Tylenol Tablet] 650 mg PO Q6H PRN PRN tab 12/07/17 Tamsulosin HCl [Flomax] 0.4 mg PO DAILY@1730 #15 cap 12/07/17 hydrocodone 5 mg-acetaminophen 325 1 tab PO Q6H PRN #10 tab 12/09/17 mg tablet omeprazole 40 mg capsule,delayed 40 mg PO QDAY 14 Days #14 cap 12/09/17 release potassium chloride ER 20 mEq 40 meq PO QDAY 10 Days #20 tab 12/11/17 tablet,extended release(part/cryst) Review of Systems Comment: Noncontributory Vital Signs Temp Pulse Resp BP Pulse Ox 98.7 F 88 16 136/66 H 99 12/18/17 07:49 12/18/17 07:49 12/18/17 07:49 12/18/17 07:49 12/18/17 07:49 Oxygen Delivery Method [5] Room Air Oxygen Delivery Method [4] Room Air Oxygen Delivery Method [3] Room Air Oxygen Delivery Method [2] Room Air Oxygen Delivery Method [1 ( Room Air Initial Baseline)] Oxygen Delivery Method Room Air Weight: 60.6 kg Microbiology Past 72 Hours 12/15/17 10:30 Gram Stain - Final Aspirate - Abdominal Wound Culture - Final Escherichia coli Anaerobic Culture - Preliminary Checking for anaerobes, further studies to follow. - Other Studies Radiology: [] Other Studies: [] Route of nutrition/ use of supplements: [] Nutritional Intake: [] IV Site: [] Campbell Catheter: [] Alert and oriented does not appear toxic head and neck exams unremarkable lungs are clear heart exam S1-S2 abdomen positive bowel sounds soft mild tenderness. No peritoneal signs percutaneous drain is in place - Assessment/Plan Antibiotics: [] Assessment/Plan: [] Active and Suspected Problems (Last Reviewed 12/13/17 @ 10:11 by Cristi Adrian MD) RLQ abdominal pain (Acute) 72-year-old female with a postop intra-abdominal abscess successfully drained percutaneously with E. coli isolated from the drainage culture. Clinically doing well tolerating ertapenem well. If the patient does go home relatively short course of 3-5 days of daily ertapenem 1 g IM. I did write the prescription for this medication if the patient does go home.
[2017-12-18] MEDS: Fleet Enema 1 ML RECTAL (10:28)
--- NOTE | 2017-12-18 10:31 | NURSING ---
fleets enema given
[2017-12-18 11:37] VITALS: BP 124/55; PULSE 94; RESP 16; TEMP 36.3; O2SAT 99
--- NOTE | 2017-12-18 12:08 | NURSING ---
digital exam done, no stool felt. mineral oil enema given per dr law
--- NOTE | 2017-12-18 12:59 | NURSING ---
very small results from Mineral oil enema. pt requesting short break before soap suds enema.
[2017-12-18 14:20] VITALS: BP 139/70; PULSE 72; RESP 16; TEMP 37; O2SAT 100
[2017-12-18] MEDS: Hydrocortisone 25 MG Suppository RECTAL (15:13)
--- NOTE | 2017-12-18 16:50 | PCM.PN.BLA ---
Progress Note If pressure rectal symptoms persist then flex sig in a.m. Will review for final decision tomorrow MICHEL out tomorrow
[2017-12-18] MEDS: Lactated Ringers 1,000 ML 30 ML IV (17:09)
[2017-12-18] MEDS: Tamsulosin HCl 0.4 MG Capsule PO (17:09)
[2017-12-18 20:35] VITALS: BP 148/70; PULSE 73; RESP 18; TEMP 36.6; O2SAT 100
[2017-12-18] MEDS: Atorvastatin Calcium 40 MG Tablet PO (22:14)
[2017-12-19 04:20] VITALS: BP 133/63; PULSE 73; RESP 18; TEMP 36.8; O2SAT 98
--- NOTE | 2017-12-19 04:21 | NURSING ---
Instructed to use white phone and dial [phone] for needs.
--- NOTE | 2017-12-19 05:36 | PCM.PN.SRG ---
Patient Problems: Active and Suspected Problems (Last Reviewed 12/13/17 @ 10:11 by Cristi Adrian MD) RLQ abdominal pain (Acute) Subjective: Pt feels much improved Still very very very anxious about rectal pressure and wants to proceed with flex sig - Physical Exam Abdomen: Bowel Sounds Present, Soft, Non Tender Vital Signs Temp Pulse Resp BP Pulse Ox 98.3 F 73 18 133/63 H 98 12/19/17 04:20 12/19/17 04:20 12/19/17 04:20 12/19/17 04:20 12/19/17 04:20 Oxygen Delivery Method [5] Room Air Oxygen Delivery Method [4] Room Air Oxygen Delivery Method [3] Room Air Oxygen Delivery Method [2] Room Air Oxygen Delivery Method [1 ( Room Air Initial Baseline)] Oxygen Delivery Method Room Air Weight: 133 lb 9.602 oz Intake and Output for Last 24 Hours 12/17/17 12/18/17 12/19/17 23:59 23:59 23:59 Intake Total 3064 / 3064 2508 / 2508 680 / 680 Output Total 1200 / 1200 Balance 1864 / 1864 2508 / 2508 680 / 680 Microbiology Past 72 Hours 12/15/17 10:30 Gram Stain - Final Aspirate - Abdominal Wound Culture - Final Escherichia coli Anaerobic Culture - Preliminary Checking for anaerobes, further studies to follow. Laboratory Tests Past 24 Hrs 12/19/17 12/19/17 05:18 05:18 WBC Pending RBC Pending Hgb Pending Hct Pending MCV Pending MCH Pending MCHC Pending RDW Pending RDW Differential Pending Plt Count Pending Sodium Pending Potassium Pending Chloride Pending Carbon Dioxide Pending Anion Gap Pending BUN Pending Creatinine Pending Est GFR (MDRD) Af Amer Pending Est GFR (MDRD) Non-Af Pending BUN/Creatinine Ratio Pending Glucose Pending Calcium Pending Medical Necessity - Tobacco Use Smoking Status: Never smoker Assessment/Plan All Active Problems (Last Reviewed 12/13/17 @ 10:11 by Cristi Adrian MD) Esophageal dysphagia (Acute) Change in bowel habit (Acute) Cecum perforation (Acute) RLQ abdominal pain (Acute) Personal history of colonic polyps (Acute) Abdomen much improved I agree with Dr Adrian that much of this prolonged stay has been anxiety driven Will proceed with minimal flex sig MICHEL removed Plan discharge today
[2017-12-19 05:41] LABS: Hematocrit 29.9 % (37-47); Hemoglobin 9.8 g/dl (12.0-15.0); Mean Corp Hgb Conc 32.8 g/gl (32-36); Mean Corpuscular Hgb 32.1 pg (27.0-32.0); Mean Platelet Vol. 9.2 fl (6.2-12.0); Platelet Count 385 K/mm3 (150-450); RBC Distribution Width CV 11.6 % (11.6-14.6); RBC Distribution Width SD 39.5 fl (35.1-43.9); Red Blood Count 3.05 M/mm3 (4.2-5.4)
[2017-12-19 05:42] LABS: Scan Indicated on CBC? Y/N NO
[2017-12-19 05:52] LABS: Anion Gap 10 (5-15); BUN 5 mg/dL (7-18); BUN/Creat Ratio 11.1 RATIO (10-20); Calcium,Total 8.6 mg/dL (8.5-10.1); Chloride 106 mmol/L (98-107); Creatinine, Serum 0.45 mg/dL (0.55-1.02); EST Glomerular Filtration Rate 144 mL/min (>60); Est Glom Filt Rate - Afr Amer 174 mL/min (>60); Estimated Creatinine Clearance 40.83 ml/min; Glucose 95 mg/dL (74-106); Potassium 2.7 mmol/L (3.5-5.1); Sodium Level 144 mmol/L (136-145)
--- NOTE | 2017-12-19 05:59 | NURSING ---
NABIL IN ENDO AWARE OF CRITICAL LAB VALUE. WILL PASS INFO ON TO DR HODGES. THIS RN PROVIDED HER CONTACT NUMBER FOR ANY QUESTIONS.
[2017-12-19 06:12] VITALS: BMI 23.6
[2017-12-19 06:33] VITALS: BP 140/68; O2SAT 100
--- NOTE | 2017-12-19 06:37 | PCM.OPRPT ---
Problem List (1) Anorectal pain Status: Acute Report of Operation Date of Procedure: 12/19/17 Pre-Operative Diagnosis: Anal rectal pain Post-Operative Diagnosis: Swollen internal and external hemorrhoids. No evidence for fecal impaction Surgery/Procedure Performed:: Flexible sigmoidoscopy Description of Surgical Findings:: 72-year-old female. Subsequent right colon surgery. She had a infected hematoma that was successfully drained. She complained bitterly about anorectal spasm and pain. Enemas were given. The pain improved. [place] that it is pertinent to proceed with visual inspection of the area to clean and firm no acute pathology. Timeout informed consent was obtained. She was taken to the endoscopy room. She was placed in left lateral decubitus position. External inspection demonstrated some swollen hemorrhoids. Digital exam consistent with the same. There was no evidence of any thrombosis. Flexible colonoscope inserted the rectum and approximately 20 cm of rectosigmoid inspected. Extensive diverticulosis noted. The patient's had a previous resection that was widely patent. No evidence for retained remaining fecal material. No evidence of obstruction. The hemorrhoidal swelling noted. Impression no evidence for fecal impaction or rectal inflammation or obstruction. Symptomatic hemorrhoids We will recommend conservative measures for hemorrhoidal treatment. Abner Reid M.D., F.A.C.S. Type of Anesthesia:: None
[2017-12-19] MEDS: Polyethylene Glycol 3350 17 GM PACKET PO (07:45)
[2017-12-19 07:49] VITALS: BP 130/61; PULSE 81; RESP 16; TEMP 36.9; O2SAT 98
[2017-12-19] MEDS: 0.9% NaCl Peripheral Flush Adult/Peds IV (10:11)
[2017-12-19] MEDS: Pantoprazole Sodium 40 MG Tablet PO (10:12)
[2017-12-19] MEDS: Atenolol 25 MG Tablet PO (10:12)
[2017-12-19 11:36] VITALS: BP 113/60; PULSE 77; RESP 16; TEMP 36.8; O2SAT 97
--- NOTE | 2017-12-19 12:35 | DCINST_ITS ---
Discharge Diet: Light diet - advance as tolerated - if you have questions about your diet instructions, please talk to you doctor. Discharge Activity: May Not Drive - for 1 week or while taking narcotic pain medicine. May shower in (days): 1 Lifting Restrictions: 10 pounds Call your doctor if your incision/area has: Continuous Slow Oozing, Sudden Increased Bleeding, Increased Pain/ Swelling, Increased Redness, Foul Smelling Discharge Call your doctor if you observe: Fever of 101 or Higher Suture Line Care: Avoid Pulling/Pushing, Avoid Pinching/Bending Additional Dressing/Incision Instructions:: Change or remove dressing in 4 days. Leave steri-strips in place for 1 week. Allergies/Adverse Reactions: Allergies clindamycin Allergy (Intermediate, Verified 12/11/17 09:29) nausea/vomiting sulfamethoxazole [From Bactrim] Allergy (Intermediate, Verified 12/11/17 09:29) nausea/vomiting trimethoprim [From Bactrim] Allergy (Intermediate, Verified 12/11/17 09:29) nausea/vomiting Gadolinium-MRI Contrast Medium Allergy (Verified 12/11/17 09:29) Hives levofloxacin [From Levaquin] Adverse Reaction (Verified 12/11/17 09:29) Nausea metronidazole [From Flagyl] Adverse Reaction (Verified 12/11/17 09:29) Nausea Medications to take at Discharge Atenolol [Tenormin] 25 mg PO DAILY 01/05/17 Calcium Carbonate [Calcium] 500 mg PO BID 01/05/17 Multivitamin [Multiple Vitamins] 1 ea PO DAILY 01/05/17 atorvastatin 20 mg tablet 40 mg PO QHS tab 11/21/17 vitamin E 1,000 unit capsule 400 unit PO DAILY cap 11/21/17 Acetaminophen [Tylenol Tablet] 650 mg PO Q6H PRN PRN tab 12/07/17 Tamsulosin HCl [Flomax] 0.4 mg PO DAILY@1730 #15 cap 12/07/17 hydrocodone 5 mg-acetaminophen 325 mg tablet 1 tab PO Q6H PRN #10 tab 12/09/17 omeprazole 40 mg capsule,delayed release 40 mg PO QDAY 14 Days #14 cap 12/09/17 potassium chloride ER 20 mEq tablet,extended release(part/cryst) 40 meq PO QDAY 10 Days #20 tab 12/11/17 Hydrocortisone [Anusol Hc] 25 mg RECTAL TID PRN PRN #20 suppos. 12/19/17 Polyethylene Glycol 3350 [Miralax] 17 gm PO DAILY 30 Days #30 packet 12/19/17 Witch Elena [Tucks] 1 ea TP TID PRN PRN #60 med..pad 12/19/17 The following prescriptions were given: Hydrocortisone [Anusol Hc] 25 mg RECTAL TID PRN PRN #20 suppos. PRN Reason: pain, swelling Polyethylene Glycol 3350 [Miralax] 17 gm PO DAILY 30 Days #30 packet Witch Elena [Tucks] 1 ea TP TID PRN PRN #60 med..pad PRN Reason: anal pain Primary Care Physician: Gavin Tran MD [Primary Care Provider] - Test Results: Test results from this visit will be discussed in further detail at your follow- up appointment, if applicable. Please Follow Up With: Abner Reid MD - [phone] When: Call to make an appointment to be seen in about 10 days.
[2017-12-19] MEDS: Tamsulosin HCl 0.4 MG Capsule PO (16:55)
== END 2017-12-19 18:35 | disposition home or self-care (01) | DRG 862 ==
LOC: ED 06:36 → MS3 10:53
PROVIDERS: Anesthesiology; Admitting Provider Surgery; Emergency Provider Emergency Medicine; Family Provider Internal Medicine; PCP Internal Medicine; Visit Provider Surgery
PROC: 0DJD8ZZ Inspection of Lower Intestinal Tract, Via Natural or Artificial Opening Endoscopic (ICD-10-PCS; CPT 45330; principal; 2017-12-19 06:25)
DX: T81.4XXA Infection following a procedure, initial encounter (principal); K65.1 Peritoneal abscess; K57.30 Diverticulosis of large intestine without perforation or abscess without bleeding; K64.8 Other hemorrhoids; K64.4 Residual hemorrhoidal skin tags; B96.20 Unspecified Escherichia coli [E. coli] as the cause of diseases classified elsewhere; R33.9 Retention of urine, unspecified; K62.89 Other specified diseases of anus and rectum; Z90.49 Acquired absence of other specified parts of digestive tract
CPT/HCPCS: 20501; 36415; 72192; 74177; 77012; 80048; 80053; 81001; 83605; 83690; 85025; 85027; 85610; 85730; 87040; 87070; 87075; 87077; 87186; 87205; 97802; 99156; 99284; J7030; J7040; J7120; Q9967; A4216; J2405

== ENCOUNTER 2017-12-20 10:33 | Outpatient (CLI) | payer MEDICARE, SELFPAY ==
[2017-12-20 11:03] VITALS: BP 111/60; PULSE 80; RESP 18; O2SAT 98
[2017-12-20] MEDS: Ertapenem Sod 1 GM/10 ML Vial IM (11:26)
== END 2017-12-20 11:56 | disposition home or self-care (01) ==
LOC: MEDOUTP 10:34 → MS3 10:38
PROVIDERS: Family Provider Internal Medicine; PCP Internal Medicine; Visit Provider Internal Medicine Infectious Disease
DX: T81.4XXA Infection following a procedure, initial encounter (principal); K65.1 Peritoneal abscess; Y84.8 Other medical procedures as the cause of abnormal reaction of the patient, or of later complication, without mention of misadventure at the time of the procedure; Y92.9 Unspecified place or not applicable
CPT/HCPCS: 96372

== ENCOUNTER 2017-12-21 10:17 | Outpatient (CLI) | payer MEDICARE, SELFPAY ==
[2017-12-21 10:48] VITALS: BP 127/54; PULSE 75; RESP 18; TEMP 36.5; O2SAT 99
[2017-12-21] MEDS: Ertapenem Sod 1 GM/10 ML Vial IM (10:50)
== END 2017-12-21 11:20 | disposition home or self-care (01) ==
LOC: MEDOUTP 10:18 → MS3 10:19
PROVIDERS: Family Provider Internal Medicine; PCP Internal Medicine; Visit Provider Internal Medicine Infectious Disease
DX: T81.4XXA Infection following a procedure, initial encounter (principal); K65.1 Peritoneal abscess; Y84.8 Other medical procedures as the cause of abnormal reaction of the patient, or of later complication, without mention of misadventure at the time of the procedure; Y92.9 Unspecified place or not applicable
CPT/HCPCS: 96372

== ENCOUNTER 2017-12-22 11:05 | Outpatient (CLI) | payer MEDICARE, SELFPAY ==
[2017-12-22 11:11] VITALS: BP 97/61; PULSE 81; RESP 18; TEMP 36.8; O2SAT 99
[2017-12-22] MEDS: Ertapenem Sod 1 GM/10 ML Vial IM (11:19)
--- NOTE | 2017-12-22 11:23 | NURSING ---
pt c/o upper shoulder/back pain on lt side. states chronic. discussed vitals and lungs as well as urination. denies all symptoms. pt refuses transfer to ER states pain chronic.
[2017-12-22 11:25] VITALS: BP 115/53; PULSE 75
== END 2017-12-22 11:50 | disposition home or self-care (01) ==
LOC: MEDOUTP 11:05 → MS3 11:06
PROVIDERS: Family Provider Internal Medicine; PCP Internal Medicine; Visit Provider Internal Medicine Infectious Disease
DX: T81.4XXA Infection following a procedure, initial encounter (principal); K65.1 Peritoneal abscess; Y84.8 Other medical procedures as the cause of abnormal reaction of the patient, or of later complication, without mention of misadventure at the time of the procedure; Y92.9 Unspecified place or not applicable
CPT/HCPCS: 96372

== ENCOUNTER → 2017-12-23 13:12 | Outpatient (CLI) | payer MEDICARE, SELFPAY ==
[2017-12-23 13:43] LABS: Absolute Lymphocyte Count 1.14 X10^3/ul (0.83-4.51); Absolute Neutrophil Count 2.3 X10^3/uL (2.0-7.7); Basophil# 0.02 X10^3/uL; Basophil% 0.5 % (0-1); Eosinophil# 0.09 X10^3/uL; Eosinophils% 2.2 % (0-5); Hematocrit 33.6 % (37-47); Hemoglobin 10.6 g/dl (12.0-15.0); Lymphocyte # 1.14 X10^3/ul (4.0); Mean Corp Hgb Conc 31.5 g/gl (32-36); Mean Corpuscular Hgb 31.3 pg (27.0-32.0); Mean Corpuscular Volume 99.1 fL (81-99); Mean Platelet Vol. 9.4 fl (6.2-12.0); Monocyte# 0.47 X10^3/uL; Monocyte% 11.5 % (0-10); Neutrophil # 2.34 X10^3/uL (2.7-7.7); Neutrophil % 57.6 % (47-70); POSITIVE COUNT NO; POSITIVE DIFFERENTIAL NO; POSITIVE MORPHOLOGY NO; Platelet Count 387 K/mm3 (150-450); RBC Distribution Width CV 12.7 % (11.6-14.6); RBC Distribution Width SD 45.2 fl (35.1-43.9); Red Blood Count 3.39 M/mm3 (4.2-5.4); White Blood Count 4.1 K/mm3 (4.4-11.0)
[2017-12-23 13:53] LABS: Anion Gap 9 (5-15); BUN 15 mg/dL (7-18); BUN/Creat Ratio 26.6 RATIO (10-20); Chloride 107 mmol/L (98-107); Creatinine, Serum 0.56 mg/dL (0.55-1.02); EST Glomerular Filtration Rate 112 mL/min (>60); Est Glom Filt Rate - Afr Amer 135 mL/min (>60); Glucose 124 mg/dL (74-106); Potassium 4.2 mmol/L (3.5-5.1); Sodium Level 144 mmol/L (136-145)
== END ==
PROVIDERS: Family Provider Internal Medicine; PCP Internal Medicine; Visit Provider Physician Assistant
DX: T14.8XXA Other injury of unspecified body region, initial encounter (principal); L08.9 Local infection of the skin and subcutaneous tissue, unspecified; E87.6 Hypokalemia
CPT/HCPCS: 36415; 80048; 85025

== ENCOUNTER → 2018-01-01 08:36 | Outpatient (CLI) | payer MEDICARE, SELFPAY ==
[2018-01-01 09:15] LABS: Hematocrit 35.2 % (37-47); Hemoglobin 11.5 g/dl (12.0-15.0); Mean Corp Hgb Conc 32.7 g/gl (32-36); Mean Corpuscular Hgb 31.7 pg (27.0-32.0); Mean Platelet Vol. 10.1 fl (6.2-12.0); Platelet Count 261 K/mm3 (150-450); RBC Distribution Width SD 45.1 fl (35.1-43.9); Red Blood Count 3.63 M/mm3 (4.2-5.4); White Blood Count 4.5 K/mm3 (4.4-11.0)
[2018-01-01 09:19] LABS: Scan Indicated on CBC? Y/N NO
[2018-01-01 09:24] LABS: Erythrocyte Sedimentation Rate 13 mm/hr (0-30)
[2018-01-01 09:27] LABS: Absolute Lymphocyte Count 1.05 X10^3/ul (0.83-4.51); Absolute Neutrophil Count 2.8 X10^3/uL (2.0-7.7); Basophil# 0.01 X10^3/uL; Basophil% 0.2 % (0-1); Eosinophil# 0.16 X10^3/uL; Eosinophils% 3.6 % (0-5); Hematocrit 35.2 % (37-47); Hemoglobin 11.5 g/dl (12.0-15.0); Lymphocyte # 1.05 X10^3/ul (4.0); Lymphocyte % 23.5 % (19-41); Mean Corp Hgb Conc 32.7 g/gl (32-36); Mean Corpuscular Hgb 31.7 pg (27.0-32.0); Mean Platelet Vol. 10.3 fl (6.2-12.0); Monocyte# 0.41 X10^3/uL; Monocyte% 9.2 % (0-10); Neutrophil # 2.84 X10^3/uL (2.7-7.7); Neutrophil % 63.5 % (47-70); Platelet Count 253 K/mm3 (150-450); Potassium 3.4 mmol/L (3.5-5.1); RBC Distribution Width CV 12.9 % (11.6-14.6); RBC Distribution Width SD 45.1 fl (35.1-43.9); Red Blood Count 3.63 M/mm3 (4.2-5.4); White Blood Count 4.5 K/mm3 (4.4-11.0)
[2018-01-01 09:28] LABS: POSITIVE COUNT NO; POSITIVE DIFFERENTIAL NO; POSITIVE MORPHOLOGY NO
== END ==
PROVIDERS: Family Provider Internal Medicine; PCP Internal Medicine; Visit Provider Physician Assistant
DX: E87.6 Hypokalemia (principal); R19.4 Change in bowel habit; R10.9 Unspecified abdominal pain
CPT/HCPCS: 36415; 84132; 85025; 85027; 85652

== ENCOUNTER → 2018-01-14 16:52 | Outpatient (CLI) | payer MEDICARE, SELFPAY ==
[2018-01-14 17:22] LABS: Potassium 3.6 mmol/L (3.5-5.1)
== END ==
PROVIDERS: Family Provider Internal Medicine; PCP Internal Medicine; Referring Provider Physician Assistant; Visit Provider Physician Assistant
DX: E87.6 Hypokalemia (principal)
CPT/HCPCS: 36415; 84132

== ENCOUNTER 2018-02-23 17:55 | Emergency (ER) | payer MEDICARE, SELFPAY ==
[2018-02-23 17:56] VITALS: BP 160/74; PULSE 79; RESP 22; TEMP 36.1; O2SAT 100; BMI 24.9
[2018-02-23 18:15] VITALS: BP 93/76; PULSE 80; RESP 14; O2SAT 100
--- NOTE | 2018-02-23 18:45 | EKG12_ITS ---
Test Reason : CP Blood Pressure : / mmHG Vent. Rate : 080 BPM Atrial Rate : 080 BPM P-R Int : 168 ms QRS Dur : 142 ms QT Int : 430 ms P-R-T Axes : 056 -68 017 degrees QTc Int : 495 ms Normal sinus rhythm Right bundle branch block Left anterior fascicular block Bifascicular block Minimal voltage criteria for LVH, may be normal variant Abnormal ECG Confirmed by ABHIJIT MA, ABIGAIL ([id number]), assignment editor KARLA BOWDEN ([id number]) on 02/26/2018 3:31:35 PM Referred By: DANIKA Confirmed By:ABIGAIL LACEY MD
--- NOTE | 2018-02-23 18:49 | RAD_ITS ---
STUDY: X-RAY CHEST REASON FOR EXAM: Female, 72 years old. Chest pain TECHNIQUE: AP port COMPARISON: November 30, 2012 FINDINGS: The lungs are clear and expanded. Tiny granulomatous calcifications are seen bilaterally There is no demonstrated pleural abnormality. Normal size heart. Normal mediastinum and jamil. Normal visualized pulmonary arteries. Normal visualized aortic arch and descending thoracic aorta. Dorsal spine demonstrates minor scoliosis and degenerative change Normal visualized ribs, clavicles, and shoulders. There is no demonstrated abnormality of the visualized soft tissue structures of the upper abdomen. RAD/Chest 1 View (Portable) IMPRESSION: No acute cardiopulmonary pathology Electronically Signed: Modesto Cortez MD at 20:05 EST , Service support ,
[2018-02-23 18:53] VITALS: O2SAT 100
[2018-02-23] MEDS: Aspirin 81 MG TAB.CHEW 324 MG PO (19:15)
[2018-02-23 19:16] VITALS: BP 125/68; PULSE 78; RESP 17; O2SAT 100
[2018-02-23 19:20] LABS: Absolute Lymphocyte Count 1.48 X10^3/ul (0.83-4.51); Absolute Neutrophil Count 3.7 X10^3/uL (2.0-7.7); Basophil# 0.01 X10^3/uL; Basophil% 0.2 % (0-1); Eosinophil# 0.13 X10^3/uL; Eosinophils% 2.3 % (0-5); Hematocrit 40.8 % (37-47); Hemoglobin 13.4 g/dl (12.0-15.0); Lymphocyte # 1.48 X10^3/ul (4.0); Lymphocyte % 25.7 % (19-41); Mean Corp Hgb Conc 32.8 g/gl (32-36); Mean Corpuscular Volume 97.4 fL (81-99); Mean Platelet Vol. 10.6 fl (6.2-12.0); Monocyte# 0.46 X10^3/uL; Neutrophil # 3.66 X10^3/uL (2.7-7.7); Neutrophil % 63.6 % (47-70); Platelet Count 233 K/mm3 (150-450); RBC Distribution Width CV 12.6 % (11.6-14.6); RBC Distribution Width SD 44.9 fl (35.1-43.9); Red Blood Count 4.19 M/mm3 (4.2-5.4); White Blood Count 5.8 K/mm3 (4.4-11.0)
[2018-02-23 19:21] LABS: POSITIVE COUNT NO; POSITIVE DIFFERENTIAL NO; POSITIVE MORPHOLOGY NO
[2018-02-23 19:54] LABS: AST(SGOT) 53 U/L (15-37); Alanine Aminotransfer ALT/SGPT 39 U/L (13-56); Albumin, Serum 4.3 g/dL (3.2-5.0); Alkaline Phosphatase 116 U/L (45-117); Anion Gap 9 (5-15); BUN 18 mg/dL (7-18); BUN/Creat Ratio 24.7 RATIO (10-20); Bilirubin, Direct 0.31 mg/dL (0.00-0.30); Calcium,Total 9.4 mg/dL (8.5-10.1); Chloride 104 mmol/L (98-107); Creatinine, Serum 0.73 mg/dL (0.55-1.02); EST Glomerular Filtration Rate 83 mL/min (>60); Est Glom Filt Rate - Afr Amer 100 mL/min (>60); Estimated Creatinine Clearance 42.62 ml/min; Globulin 3.8 g/dL (2.2-4.2); Glucose 95 mg/dL (74-106); Lipase 282 U/L (73-393); Potassium 3.5 mmol/L (3.5-5.1); Protein, Total 8.1 g/dL (6.4-8.2); Sodium Level 141 mmol/L (136-145)
--- NOTE | 2018-02-23 20:09 | CT_ITS ---
STUDY: CTA CHEST REASON FOR EXAM: Female, 72 years old. Chest pain RADIATION DOSAGE (If Supplied By Facility): CTDIvol = ( 7.10 ) mGy, DLP = ( 257.53 ) mGycm TECHNIQUE: The examination was performed with the intravenous administration of 100 ml of Isovue 370 contrast material. Post-processing of the angiographic images was performed, with multiplanar reformation and 3D reconstruction. Individualized dose optimization techniques were used for this CT. COMPARISON: None. FINDINGS: Normal enhancement of the main pulmonary artery and right and left pulmonary arteries. Normal enhancement of the bilateral peripheral pulmonary arteries. There is no demonstrated pulmonary embolism. Atherosclerotic changes of the aorta without evidence for aneurysm There is no demonstrated aortic dissection. Heart size is normal. Focal coronary artery calcification Normal mediastinum. Multiple calcified left hilar nodes Normal visualized trachea and bronchi. The lungs are well expanded. There is mild subsegmental atelectasis in left lower lobe No focal infiltration. Tiny calcified granuloma in left upper lobe There is mild pleural thickening in the pulmonary apices. There is no pleural effusion or pneumothorax Normal chest wall structures. Dorsal spine demonstrates moderate spondylosis Normal visualized upper abdomen. CT/CTA Chest W/WO Contrast IMPRESSION: Mild subsegmental atelectasis in left lower lobe and old granulomatous disease. .No evidence for pulmonary embolus aortic aneurysm periaortic leak or dissection Electronically Signed: Modesto Cortez MD at 21:19 EST , Service support ,
--- NOTE | 2018-02-23 20:27 | ED.RN ---
Attempted 2nd IV in CT. Unsuccessful after 1 attempt. 2ND RN to attempt.
--- NOTE | 2018-02-23 21:53 | ED.VISSUMM ---
- ER Visit Summary Date of Service: 02/23/18 Chief Complaint: Chest pain History of Present Illness: The patient is a 72 F who states that today during light activity in her sewing room she had a sudden onset of pain in her back left side she describes as being in a vice states that eventually changed got much worse and moved into her chest. She describes it as a burning-like sensation states it eased up now but still present in a pressure-like sensation. She has similar event 2 months ago with resolved and did not have any follow-up. She notes she underwent a colonoscopy in November that led to a partial colectomy and abscess formation. She had an EGD at that time that showed a possible hiatal hernia and was taken omeprazole but has recently stopped it. When asked to point the area of her pain she points to her epigastrium left upper quadrant and lower chest. Physical Examination: Afebrile vital signs are stable Gen: Well-nourished well-developed Head: Normocephalic atraumatic Eyes: Perrl EOMI ENT: TMs clear no rhinorrhea moist mucous membranes Neck: Supple no lymphadenopathy no JVD nontender CVS: Regular rate rhythm no murmurs normal S1-S2 Respiratory: No distress clear to auscultation bilaterally chest nontender Abdomen: Soft tender to palpation in her epigastrium left upper quadrant nondistended normal bowel sounds no masses Back: Nontender Extremity: Nontender no edema Skin: Normal color no rash Neuro: alert orientated ?3 CN II-XII intact normal strength sensation reflexes gait cerebellar Psych: Normal affect normal mood Test Results: EKG sinus rhythm with a right bundle branch block that appears unchanged from prior. Rate is 75. Chest x-ray is negative. Lipase 282. Troponin is negative. CT Jenn of the chest shows no PE no dissection. Emergency Department Course and Treatment: The troponin is greater than a 6-hour troponin. His 6 hours of constant pain is negative. I think the patient most likely is having gastritis versus peptic ulcer disease. She points more in the abdomen than in the chest. The back is most likely referred pain. Patient should restart either omeprazole or Pepcid. I have asked that she follow-up with her doctor. Return if worsening or concerns. CORINE score is 1. Impression: 1. Gastritis This note was generated with [employer] software. It may contain incorrect words, spelling, and punctuation that were not noted in review of the chart prior to signing ED Disposition - Plan for ED Patient: Disposition: Home or Assisted Living Chief Complaint: Chest Pain Instructions: ED Chest Pain Atypical Unkn Cause Prescriptions: Famotidine [Pepcid] 20 mg PO BID #28 tab Additional Instructions: Please follow-up with your primary care physician as soon as possible. Return if worsening or concerns.
[2018-02-23 22:00] VITALS: BP 144/71; PULSE 81; RESP 16; O2SAT 99
[2018-02-23 22:01] VITALS: BP 144/71; PULSE 81; RESP 16; O2SAT 99
== END 2018-02-23 22:02 | disposition home or self-care (01) ==
PROVIDERS: Emergency Provider Emergency Medicine; Family Provider Internal Medicine; PCP Internal Medicine
DX: K29.70 Gastritis, unspecified, without bleeding (principal); I45.10 Unspecified right bundle-branch block; Z90.49 Acquired absence of other specified parts of digestive tract
CPT/HCPCS: 71045; 71275; 80048; 80076; 83690; 84484; 85025; 93005; 99285; Q9967; A4216

== ENCOUNTER → 2018-02-27 15:55 | Outpatient (CLI) | payer MEDICARE, SELFPAY ==
[2018-02-27 17:00] LABS: Absolute Lymphocyte Count 1.04 X10^3/ul (0.83-4.51); Absolute Neutrophil Count 2.2 X10^3/uL (2.0-7.7); Basophil# 0.01 X10^3/uL; Basophil% 0.2 % (0-1); Eosinophil# 0.13 X10^3/uL; Eosinophils% 3.2 % (0-5); Hematocrit 38.6 % (37-47); Hemoglobin 12.6 g/dl (12.0-15.0); Lymphocyte # 1.04 X10^3/ul (4.0); Lymphocyte % 25.5 % (19-41); Mean Corp Hgb Conc 32.6 g/gl (32-36); Mean Corpuscular Hgb 32.1 pg (27.0-32.0); Mean Corpuscular Volume 98.5 fL (81-99); Mean Platelet Vol. 10.1 fl (6.2-12.0); Monocyte# 0.65 X10^3/uL; Monocyte% 15.9 % (0-10); Neutrophil # 2.24 X10^3/uL (2.7-7.7); Platelet Count 223 K/mm3 (150-450); RBC Distribution Width CV 12.7 % (11.6-14.6); RBC Distribution Width SD 45.7 fl (35.1-43.9); Red Blood Count 3.92 M/mm3 (4.2-5.4); White Blood Count 4.1 K/mm3 (4.4-11.0)
[2018-02-27 17:01] LABS: POSITIVE COUNT NO; POSITIVE DIFFERENTIAL NO; POSITIVE MORPHOLOGY NO
[2018-02-27 17:51] LABS: Anion Gap 7 (5-15); BUN 16 mg/dL (7-18); BUN/Creat Ratio 28.5 RATIO (10-20); Calcium,Total 9.1 mg/dL (8.5-10.1); Chloride 104 mmol/L (98-107); Creatinine, Serum 0.56 mg/dL (0.55-1.02); EST Glomerular Filtration Rate 112 mL/min (>60); Est Glom Filt Rate - Afr Amer 136 mL/min (>60); Glucose 89 mg/dL (74-106); Potassium 3.7 mmol/L (3.5-5.1); Sodium Level 139 mmol/L (136-145)
== END ==
PROVIDERS: Family Provider Internal Medicine; PCP Internal Medicine; Referring Provider Surgery; Visit Provider Surgery
DX: R10.9 Unspecified abdominal pain (principal)
CPT/HCPCS: 36415; 80048; 85025

== ENCOUNTER → 2018-03-02 08:05 | Outpatient (CLI) | payer MEDICARE, SELFPAY ==
--- NOTE | 2018-03-02 08:07 | CT_ITS ---
STUDY: CT ABDOMEN AND PELVIS WITH CONTRAST REASON FOR EXAM: Female, 72 years old. Epigastric and umbilical pain. Prior hemicolectomy due to colonic perforation. RADIATION DOSAGE (If Supplied By Facility): CTDIvol = ( 9.96 ) mGy, DLP = ( 388.69 ) mGycm TECHNIQUE: Transaxial images were obtained from the dome of the diaphragm to the symphysis pubis with oral contrast. 100 ml of Isovue 300 contrast was administered. Sagittal and coronal images were reconstructed. Individualized dose optimization techniques were used for this CT. COMPARISON: Comparison is made with prior study dated December 17, 2017. FINDINGS: Minimal increased markings at the left lung base suggestive of underlying atelectasis and/or scarring. The visualized portions of the heart are within normal limits. Tiny cysts are seen in the liver. There are multiple small gallstones. Along the dependent portion of the gallbladder lumen. Normal spleen. Normal pancreas. Normal bilateral adrenal glands. Normal right kidney. Normal left kidney. There is a small hiatal hernia. Normal small intestine. The patient is status post right hemicolectomy. Findings suggest lobar scattered diverticula in the region of the hepatic flexure. Mild increased markings are seen in the surrounding peritoneal fat. This may represent a mild degree of diverticulitis. The appendix is visualized and appears normal. There is scattered atherosclerotic calcification of the abdominal aorta, without a demonstrated aneurysm. Normal inferior vena cava. Normal retroperitoneum. Normal urinary bladder. There is absence of the uterus consistent with a prior hysterectomy. There is a left-sided inguinal hernia containing adipose tissue. Disc space narrowing with fusion at the L4-L5 and L5-S1 level. CT/Abdomen/Pelvis WITH Contrast IMPRESSION: Multiple tiny gallstones along the dependent portion of the gallbladder lumen. Increased markings in the peritoneal fat in the region of the hepatic flexure. Scattered diverticula are seen at that site. Noncomplicated diverticulitis should be ruled out. Electronically Signed: Nitish Greenberg MD at 9:41 EST Tel [phone], Service support ,
== END ==
PROVIDERS: Family Provider Internal Medicine; PCP Internal Medicine; Referring Provider Surgery; Visit Provider Surgery
DX: R10.9 Unspecified abdominal pain (principal)
CPT/HCPCS: 74177; Q9967

== ENCOUNTER → 2018-08-20 13:02 | Outpatient (CLI) | payer MEDICARE, SELFPAY ==
--- NOTE | 2018-08-20 13:56 | MRI_ITS ---
STUDY: MRI BRAIN WITH AND WITHOUT CONTRAST REASON FOR EXAM: Female, 72 years old. Meningioma follow-up TECHNIQUE: Standardized multiplanar fat and water weighted pulse sequences were obtained. 12 IV Dotarem was administered for the contrast portion of the examination. COMPARISON: Brain MRI 09/17/2017. FINDINGS: Homogeneously enhancing left parasagittal, dural based meningioma is again seen measuring 1.9 x 1.5 x 2.3 cm (previously 1.7 x 1.4 x 2.1 cm when measured in a similar manner). There is no significant mass effect or adjacent vasogenic edema. No other enhancing abnormality. There is mild cerebral atrophy with widening of the extra-axial spaces and ventricular dilatation. There are a limited number of small white matter hyperintensities, distributed throughout the deep white matter tracts of the cerebral hemispheres, consistent with trace chronic white matter ischemic changes. Normal bilateral basal ganglia. Normal thalami. There is no extra-axial fluid accumulation. Normal flow voids within the major intracranial circulation suggesting patency by spin echo criteria. Normal venous enhancement. Normal sella turcica, pituitary gland, infundibular stalk, optic chiasm and hypothalamus. Normal tectal plate and pineal gland. Normal midbrain, willie and medulla. Normal cerebellum. Normal basal cisterns. Normal bilateral temporal bones. Normal bilateral internal auditory canals. No demonstrated orbital abnormality, within the constraints of a routine brain study. Normal visualized paranasal sinuses. Normal calvarium and skull base. Normal visualized soft tissue structures. Normal visualized upper cervical spine. MRI/Brain W/WO Contrast IMPRESSION: Left parasagittal meningioma has slightly increased in size since prior exam as described above. No significant mass effect. Electronically Signed: Viviane Peterson, at 16:01 EDT Tel , Service support ,
[2018-08-20 14:41] LABS: CREATININE FINGERSTICK 0.8 mg/dL (0.55-1.02); EGFR FINGERSTICK > 60.0000 mL/min (>60)
== END ==
PROVIDERS: Family Provider Internal Medicine; PCP Internal Medicine; Referring Provider Neurological Surgery; Visit Provider Neurological Surgery
DX: D32.9 Benign neoplasm of meninges, unspecified (principal)
CPT/HCPCS: 70553; A9575

== ENCOUNTER 2018-12-30 20:47 | Emergency (ER) | payer MEDICARE, SELFPAY ==
[2018-11-10 14:03] VITALS: BMI 24.9
[2018-12-30 20:48] VITALS: BP 124/62; PULSE 78; RESP 18; TEMP 36.7; O2SAT 99; BMI 23.6
--- NOTE | 2018-12-30 20:51 | RAD_ITS ---
STUDY: X-RAY - RIGHT FOOT CLINICAL: Female, 73 years old. Lateral foot pain TECHNIQUE: 3 view(s) of the foot. COMPARISON: None. FINDINGS: Normal talus, calcaneus, and tarsal bones. Normal visualized subtalar, talonavicular, calcaneocuboid, tarsal and tarsometatarsal articulations. Normal metatarsi. Normal metatarsophalangeal joint of the great toe. Normal tibial and fibular sesamoid bones. Normal interphalangeal joint of the great toe. Normal phalanges of the great toe. Normal second through fifth metatarsophalangeal joints. Normal interphalangeal joints and phalanges of the lesser toes. The soft tissue structures are unremarkable. RAD/Foot min 3 Views IMPRESSION: Normal x-ray examination of the foot. Electronically Signed: Wallace Tan MD at 21:09 EDT , Service support ,
--- NOTE | 2018-12-30 22:24 | ED.VISSUMM ---
- ER Visit Summary Date of Service: 12/30/18 Chief Complaint: Right foot pain History of Present Illness: The patient is a 73 F who injured her right foot. She bent her foot and it put pressure on a bead that was on her slipper. She complains of swelling to the area now and cannot bear weight. Physical Examination: Mild edema to the right lateral foot. Tenderness to the area. Skin intact. Neurovascular intact distally. Otherwise exam normal. Test Results: X-rays negative Emergency Department Course and Treatment: X-rays were negative. Patient may have a small hairline fracture. She may have a mild hematoma. Patient will be treated with nonweightbearing, she has crutches at home. Postop shoe. [id number] meds for pain. Follow-up with podiatry. Treatment Plan: As above Disposition: Discharged Impression: 1. Right foot pain This note was generated with [employer] ([employer]) dictation software. It may contain incorrect words, spelling, and punctuation that were not noted in review of the chart prior to signing ED Disposition - Plan for ED Patient: Disposition: Home or Assisted Living Instructions: CONTUSION, Lower Extremity Referrals: Modesto Espinosa DPM [STAFF PHYSICIAN] -
--- NOTE | 2018-12-30 22:25 | ED.DEP ---
ED Disposition - Plan for ED Patient: Instructions: CONTUSION, Lower Extremity Referrals: Modesto Espinosa DPM [STAFF PHYSICIAN] -
[2018-12-30 22:32] VITALS: RESP 16
== END 2018-12-30 22:40 | disposition home or self-care (01) ==
LOC: ED 22:26
PROVIDERS: Emergency Provider Emergency Medicine; Family Provider Internal Medicine; PCP Internal Medicine
DX: M79.671 Pain in right foot (principal)
CPT/HCPCS: 73630; 99283

== ENCOUNTER → 2019-09-28 15:10 | Outpatient (CLI) | payer MEDICARE, SELFPAY ==
[2019-09-28 15:56] LABS: CREATININE FINGERSTICK 0.6 mg/dL (0.55-1.02); EGFR FINGERSTICK > 60.0000 mL/min (>60)
--- NOTE | 2019-09-28 16:00 | MRI_ITS ---
STUDY: MRI BRAIN WITH AND WITHOUT CONTRAST REASON FOR EXAM: Female, 74 years old. f/u for meningioma. No complaints from patient TECHNIQUE: Standardized multiplanar fat and water weighted pulse sequences were obtained. 8ml Dotarem via IV was administered for the contrast portion of the examination. COMPARISON: MRI of the brain August 20, 2018 FINDINGS: Mild atrophy and periventricular white matter ischemic change without mass effect or restricted diffusion. Normal bilateral basal ganglia. Normal thalami. There is no extra-axial fluid accumulation. Normal flow voids within the major intracranial circulation suggesting patency by spin echo criteria. Homogeneously enhancing dural based parafalcine mass is noted in the left parietal lobe measuring approximately 1.96 x 1.53 x 2.34 cm consistent with meningioma without appreciable mass effect Normal sella turcica, pituitary gland, infundibular stalk, optic chiasm and hypothalamus. Normal tectal plate and pineal gland. Normal midbrain, willie and medulla. Normal cerebellum. Normal basal cisterns. Normal bilateral temporal bones. Normal bilateral internal auditory canals. No demonstrated orbital abnormality, within the constraints of a routine brain study. Normal visualized paranasal sinuses. Normal calvarium and skull base. Normal visualized soft tissue structures. Normal visualized upper cervical spine. No significant change since prior exam MRI/Brain W/WO Contrast IMPRESSION: Stable appearance to left parasagittal meningioma. Mild atrophy and periventricular white matter ischemic changes without evidence for acute infarct Electronically Signed: Modesto Cortez MD at 17:29 EDT , Service support ,
--- OUTSIDE RECORDS SUMMARY | 2020-02-06 10:31 | XMS RPT_ITS | CCD ---
:1945 External Reference #:[id number] Author Organization [facility] Care Team Providers Name Role Phone Tony Tijerina Primary Care Provider Allergies Reported Allergen Reaction(s) Severity Date of Onset Location Clindamycin GI Upset High 09-25-2010 - [facility] ([id number]) Gadolinium-Containing Hives High 10-28-2017 - [facility] ([id number]) metroNIDAZOLE GI Upset High 10-19-2009 - [facility] ic (79273) Sulfamethoxazole / GI Upset High 02-25-2005 - [facility] Trimethoprim ([id number]) Medications Medication Name Sig Date Prescriber Location Aspirin ASPIRIN 81 MG TAB 10-16-2005 Pino Andrade Jewlel [facility] Take one (1) tablet (63124) daily . 0 10/16/2005 Active Comment: Take one (1) tablet daily . Atenolol atenolol (TENORMIN) 25 01-27-2019 - Catina ([facility]) [facility] mg tablet Indications: 01-21-2020 (4419 5) Palpitations Take 1 tablet by mouth once daily. 90 tablet 3 01/27/2019 01/21/2020 Discontinued (Clinical Decision) Comment: Take 1 tablet by mouth once daily. atorvastatin atorvastatin (LIPITOR) 01-27-2019 - Catina ([facility]) [facility] 40 mg tablet 01-21-2020 Older (48369) Indications: Hyperlipidemia, unspecified hyperlipidemia type TAKE 1 TABLET EVERY DAY AT BEDTIME FOR CHOLESTEROL 90 tablet 3 01/21/2020 Active Comment: TAKE 1 TABLET EVERY DAY AT B EDTIME FOR CHOLESTEROL Calcium Carbonate / CALCIUM + D 600 10-16-2005 [facility] Cholecalciferol MG-200 UNIT TAB [place]ell (52272) Take one(1) tablet daily. 0 10/16/2005 Active Comment: Take one(1) tablet daily. Cholecalciferol Cholecalciferol, Vitamin 01-21-2020 Catina (Sales Planning Coordinator) [facility] D3, 25 mcg (1,000 unit) Older (441 95) cap Take 1 capsule by mouth once daily. 0 01/21/2020 Active Comment: Take 1 capsule by mouth once daily. dodecyl sulfate / Oxyquinoline-Na Lauryl 03-31-2019 - Maximo L [place] Oxyquinoline Sulfate (TRIMO-JESSICA 12-15-2019 [facility] [address] (7 3247) JELLY) 0.025-0.01 % Maximo L gel Use 1 Osvaldo Applicatorful vaginally two times a week. 1 Tube 3 03/31/2019 12/15/2019 Discontinued Comment: Use 1 Applicatorful vaginall y two times a week. Famotidine famotidine (PEPCID ORAL) 01-21-2020 [facility] Provider [facility] Take by mouth. 0 01/21/2020 (65865) Discontinued (Discontinued by Patient) famotidine (PEPCID ORAL) Take by mouth. 0 [facility] Pr ovider [facility] (77315) Active Comment: Take by mouth. MULTIVITAMIN TAB MULTIVITAMIN TAB Take 10-16-2005 Forest Schul [facility] one(1) tablet daily. 0 (4419 5) 10/16/2005 Active MULTIVITAMIN TAB Take one(1) 10-16-2005 Forest Schuler [facility] (87352) tablet daily. 0 10/16/2005 Active MULTIVITAMIN TAB Take one(1) 10-16-2005 [facility] (92345) tablet daily. 0 10/16/2005 Active MULTIVITAMIN TAB Take one(1) 10-16-2005 Forest Schuler [facility] (90039) tablet daily. 0 10/16/2005 Active MULTIVITAMIN TAB Take one(1) 10-16-2005 Forest Schuler [facility] (67995) tablet daily. 0 10/16/2005 Active MULTIVITAMIN TAB Take one(1) 10-16-2005 Forest Schuler [facility] (27373) tablet daily. 0 10/16/2005 Active Comment: Take one(1) tablet daily. Henry-3 Fatty Henry-3 Fatty Acids 01-15-2007 Malia Patel [facility] Acids (FISH OIL) (FISH OIL) ORAL Cap (441 95) ORAL Cap Take one(1) capsule daily. 0 01/15/2007 Active Henry-3 Fatty Acids (FISH OIL) 01-15-2007 Malia Thorpe C [facility] (88174) ORAL Cap Take one(1) capsule daily. 0 01/15/2007 Active Henry-3 Fatty Acids (FISH OIL) 01-15-2007 Malia Thorpe C [facility] (09191) ORAL Cap Take one(1) capsule daily. 0 01/15/2007 Active Henry-3 Fatty Acids (FISH OIL) 01-15-2007 Malia Thorpe C [facility] (05362) ORAL Cap Take one(1) capsule daily. 0 01/15/2007 Active Henry-3 Fatty Acids (FISH OIL) 01-15-2007 Malia Thorpe C [facility] (49802) ORAL Cap Take one(1) capsule daily. 0 01/15/2007 Active Henry-3 Fatty Acids (FISH OIL) 01-15-2007 Malia Thorpe C [facility] (80040) ORAL Cap Take one(1) capsule daily. 0 01/15/2007 Active Comment: Take one(1) capsule daily. Polyethylene Glycols polyethylene glycol 3350 [facility] (MIRALAX ORAL) Take 0.5 (441 95) teaspoonsful by mouth once daily. 0 Active polyethylene glycol 3350 (MIRALAX ORAL) Take [facility] (09900) 0.5 teaspoonsful by mouth once daily. 0 Active polyethylene glycol 3350 (MIRALAX ORAL) Take [facility] (01561) 0.5 teaspoonsful by mouth once daily. 0 Active polyethylene glycol 3350 (MIRALAX ORAL) Take [facility] (34821) 0.5 teaspoonsful by mouth once daily. 0 Active polyethylene glycol 3350 (MIRALAX ORAL) Take [facility] (55011) 0.5 teaspoonsful by mouth once daily. 0 Active polyethylene glycol 3350 (MIRALAX ORAL) Take [facility] (59415) 0.5 teaspoonsful by mouth once daily. 0 Active Comment: Take 0.5 teaspoonsful by christian th once daily. Vitamin E VITAMIN E 200 UNIT CAP 09-21-2007 [facility] Take one(1) tablet (88998) daily. 0 09/21/2007 Active Comment: Take one(1) tablet daily. WHEAT DEXTRIN wheat dextrin (BENEFIBER CLEAR [facility] Provi memo [facility] (84429) SF, DEXTRIN, ORAL) Take 0.5 teaspoonsful by mouth once daily. 0 Active wheat dextrin (BENEFIBER CLEAR SF, DEXTRIN, [facility] Provider [facility] (96617) ORAL) Take 0.5 teaspoonsful by mouth once daily. 0 Active wheat dextrin (BENEFIBER CLEAR SF, DEXTRIN, [facility] Provider [facility] (53529) ORAL) Take 0.5 teaspoonsful by mouth once daily. 0 Active wheat dextrin (BENEFIBER CLEAR SF, DEXTRIN, [facility] (15766) ORAL) Take 0.5 teaspoonsful by mouth once daily. 0 Active wheat dextrin (BENEFIBER CLEAR SF, DEXTRIN, [facility] (11540) ORAL) Take 0.5 teaspoonsful by mouth once daily. 0 Active wheat dextrin (BENEFIBER CLEAR SF, DEXTRIN, [facility] (92470) ORAL) Take 0.5 teaspoonsful by mouth once daily. 0 Active Comment: Take 0.5 teaspoonsful by christian th once daily. Problems Active Problems Category Problem Name Status Date Location Cardiac dysrhythmias Palpitations Active 01-13-2012 - [facility] (87916) Disorders of lipid Hyperlipidemia Active 03-18-2005 - [facility] metabolism (23963) Occlusion or stenosis of Carotid artery stenosis Active 05-14 - [facility] precerebral arteries (64672) Other and unspecified Intracranial meningioma Active 10-29-19 - [facility] benign neoplasm (04080) Other gastrointestinal Irritable bowel Active 01-26-2013 - [facility] disorders syndrome (71239) Other gastrointestinal Incomplete passage of Active [facility] disorders stool (76792) Other gastrointestinal Irritable bowel Active [facility] disorders syndrome with diarrhea (4419 5) Other gastrointestinal Abnormal defecation Active [facility] disorders (29403) Other non-traumatic joint Hip pain Active [facility] disorders (43613) Other upper respiratory Allergic rhinitis Active 11-30-2008 - [facility] disease (77044) Prolapse of female Herniation of rectum Active [facility] genital organs into vagina (05059) Residual codes; Requires vaccination Active [facility] unclassified (74274) Unclassified Patient encounter Active [facility] status (23709) Past or Other Problems Category Problem Name Status Date Location Other and unspecified Benign neoplasm of Completed 11-30-2008 - [facility] benign neoplasm colon (42978) Other bone disease and Osteopenia Completed 10-27-2013 - [facility] musculoskeletal (92382) deformities Residual codes; Family history of Completed 10-16-2005 - [facility] unclassified breast cancer (88255) Results Result Name Value Range Unit Interpretation Flag [facility] Telephone (INTMWS) Normal 01-31-2020 [facility] FANNIE LUCAS ([id number]) 1945 F [facility] Time Provider Department ([id number]) 01/31/20 CATINA SHAW (DIESEL RETROFIT INSTALLER) INTMWS During your visit today, we recorded the following informati on about you: Catina Shaw APRN.CNP 01/31/2020 11:53 AM Signed Outside lab results reviewed. Cholesterol levels optimal. Ki dney and liver function normal. PAULINO Hobson Cma 01/31/2020 12:41 PM Signed Patient is notified of all information and verbalizes unders tanding Allergies As of Date: 01/31/2020 Noted Allergy Reaction BACTRIM (SULFAMETHOXAZOLE-TRIMETH*02/25/2005 8 - GI Upset Comments: nausea CLINDAMYCIN HCL 09/25/2010 8 - GI Upset FLAGYL (METRONIDAZOLE HCL) 10/19/2009 8 - GI Upset GADOLINIUM-CONTAINING CONTRAST ME*10/28/2017 4 - Hives Comments: Gadolinium/Gadavist Date Reviewed: 12/15/2019 Reviewed by: Maximo Cesar - Fully Assessed Reason for Visit: Results [95] Prescriptions as of 01/31/2020 Sig: CHOLECALCIFEROL (VITAMIN D3) * Take 1 capsule by mouth once * ATORVASTATIN 40 MG TABLET TAKE 1 TABLET EVERY DAY AT BE* MIRALAX ORAL Take 0.5 teaspoonsful by mout* BENEFIBER CLEAR SF (DEXTRIN) * Take 0.5 teaspoonsful by mout * * VITAMIN E 200 UNIT CAPSULE Take one(1) tablet daily. * FISH OIL 500 MG CAPSULE Take one(1) capsule daily. * MULTIVITAMIN TABLET Take one(1) tablet daily. * CALCIUM + D 600 MG (1,500 MG)* Take one(1) tablet daily. * ASPIRIN 81 MG TABLET Take one (1) tablet daily . Problem List As Of Date 01/31/2020 Noted Resolved Cervical spondylosis without myelopathy [M47.81*02/26/2005 0 10/04/2013 Hyperlipidemia [E78.5] 03/18/2005 More... FAMILY HX BREAST MALIG [Z80.3] 10/16/2005 Unspecified Chest Pain [R07.9] 12/03/2005 12/07/2009 Other Malaise and Fatigue [R53.81, R53.83] 12/03/20052009 Anxiety state, unspecified [F41.1] 01/15/2007 01/13/2012 Benign neoplasm of colon [D12.6] 11/30/2008 Incontinence of Feces [787.6] 11/30/2008 12/07/2009 Unspecified hemorrhoids without mention of comp*11/30/2008 0 10/04/2013 Allergic rhinitis [J30.9] 11/30/2008 Diverticulosis of colon [K57.30] 01/06/2009 12/31/2016 More... 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 Enthesopathy of hip region [M76.899] 02/04/2011 01/13/2012 Diarrhea [R19.7] 02/08/2014 Anal fissure [K60.2] 03/07/2011 02/08/2014 Palpitations [R00.2] 01/13/2012 01/21/2020 More... IBS (irritable bowel syndrome) [K58.9] 01/26/2013 Rectocele [N81.6] 03/02/2013 10/04/2013 Osteopenia [M85.80] 10/27/2013 Carotid disease, bilateral (HCC) [I77.9] 01/03/2016 05/14/19 20 Benign meningioma of brain (HCC) [D32.0] 10/28/2017 Muscle weakness [M62.81] 11/25/2018 05/14/2019 Carotid artery stenosis [I65.29] 05/14/2019 Encounter Status:Closed by ULICES OSBORNE CMA on 01/31/20 genevieve on 2020-01-26 [facility] Telephone (INTMWS) Normal 01-26-2020 [place] [facility] FANNIE LUCAS ([id number]) 1945 F [facility] Time Provider Department ([id number]) 01/26/20 GAVIN TIJERINA INTMWS During your visit today, we recorded the following informati on about you: Ulices Osborne Cma 01/26/2020 11:53 AM Signed ----- Message from Catina Rogers) Kaleb sent at 01/26/2020 11:39 A M EDT ----- No change in carotid artery stenosis Catina Shaw, FABRICATION LEAD.GILL Osborne Cma 01/26/2020 12:24 PM Signed Patient is notified of all information and verbalizes unders ksenia Osborne Cma Allergies As of Date: 01/26/2020 Noted Allergy Reaction BACTRIM (SULFAMETHOXAZOLE-TRIMETH*02/25/2005 8 - GI Upset Comments: nausea CLINDAMYCIN HCL 09/25/2010 8 - GI Upset FLAGYL (METRONIDAZOLE HCL) 10/19/2009 8 - GI Upset GADOLINIUM-CONTAINING CONTRAST ME*10/28/2017 4 - Hives Comments: Gadolinium/Gadavist Date Reviewed: 12/15/2019 Reviewed by: Maximo Cesar - Fully Assessed Reason for Visit: Results [95] Prescriptions as of 01/26/2020 Sig: CHOLECALCIFEROL (VITAMIN D3) * Take 1 capsule by mouth once * ATORVASTATIN 40 MG TABLET TAKE 1 TABLET EVERY DAY AT BE* MIRALAX ORAL Take 0.5 teaspoonsful by mout* BENEFIBER CLEAR SF (DEXTRIN) * Take 0.5 teaspoonsful by mout * * VITAMIN E 200 UNIT CAPSULE Take one(1) tablet daily. * FISH OIL 500 MG CAPSULE Take one(1) capsule daily. * MULTIVITAMIN TABLET Take one(1) tablet daily. * CALCIUM + D 600 MG (1,500 MG)* Take one(1) tablet daily. * ASPIRIN 81 MG TABLET Take one (1) tablet daily . Problem List As Of Date 01/26/2020 Noted Resolved Cervical spondylosis without myelopathy [M47.81*02/26/2005 0 10/04/2013 Hyperlipidemia [E78.5] 03/18/2005 More... FAMILY HX BREAST MALIG [Z80.3] 10/16/2005 Unspecified Chest Pain [R07.9] 12/03/2005 12/07/2009 Other Malaise and Fatigue [R53.81, R53.83] 12/03/20052009 Anxiety state, unspecified [F41.1] 01/15/2007 01/13/2012 Benign neoplasm of colon [D12.6] 11/30/2008 Incontinence of Feces [787.6] 11/30/2008 12/07/2009 Unspecified hemorrhoids without mention of comp*11/30/2008 0 10/04/2013 Allergic rhinitis [J30.9] 11/30/2008 Diverticulosis of colon [K57.30] 01/06/2009 12/31/2016 More... 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 Enthesopathy of hip region [M76.899] 02/04/2011 01/13/2012 Diarrhea [R19.7] 02/08/2014 Anal fissure [K60.2] 03/07/2011 02/08/2014 Palpitations [R00.2] 01/13/2012 01/21/2020 More... IBS (irritable bowel syndrome) [K58.9] 01/26/2013 Rectocele [N81.6] 03/02/2013 10/04/2013 Osteopenia [M85.80] 10/27/2013 Carotid disease, bilateral (HCC) [I77.9] 01/03/2016 05/14/19 20 Benign meningioma of brain (HCC) [D32.0] 10/28/2017 Muscle weakness [M62.81] 11/25/2018 05/14/2019 Carotid artery stenosis [I65.29] 05/14/2019 Encounter Status:Closed by ULICES OSBORNE CMA on 01/26/20 genevieve on 2020-01-24 [facility] Telephone (INTMWS) Normal 01-24-2020 [place] [facility] FANNIE LUCAS ([id number]) 1945 F [place] Date Time Provider Department ([id number]) 01/24/20 GAVIN TIJERINA INTMWS During your visit today, we recorded the following informati on about you: Ulices Osborne Cma 01/24/2020 8:40 AM Signed ----- Message from Catina Shaw sent at 01/24/2020 8:34 AM EDT ----- X-ray of the hip showing chondrocalcinosis which is the bu ild up of calcium deposits on the hip cartilage. This is a type of arthritis that can be seen with advancing age. Treatment for this is conservative including NSAID's and exercises such as the ones given to her at appointment. Ca ll office for any worsening or persistent symptoms. Catina Shaw, FABRICATION LEAD.GILL Osborne Cma 01/24/2020 8:40 AM Signed Sent secure [employer] message to patient with below informatio n. Ulices Osborne Cma Allergies As of Date: 01/24/2020 Noted Allergy Reaction BACTRIM (SULFAMETHOXAZOLE-TRIMETH*02/25/2005 8 - GI Upset Comments: nausea CLINDAMYCIN HCL 09/25/2010 8 - GI Upset FLAGYL (METRONIDAZOLE HCL) 10/19/2009 8 - GI Upset GADOLINIUM-CONTAINING CONTRAST ME*10/28/2017 4 - Hives Comments: Gadolinium/Gadavist Date Reviewed: 12/15/2019 Reviewed by: Maximo Cesar - Fully Assessed Reason for Visit: Results [95] Prescriptions as of 01/24/2020 Sig: CHOLECALCIFEROL (VITAMIN D3) * Take 1 capsule by mouth once * ATORVASTATIN 40 MG TABLET TAKE 1 TABLET EVERY DAY AT BE* MIRALAX ORAL Take 0.5 teaspoonsful by mout* BENEFIBER CLEAR SF (DEXTRIN) * Take 0.5 teaspoonsful by mout * * VITAMIN E 200 UNIT CAPSULE Take one(1) tablet daily. * FISH OIL 500 MG CAPSULE Take one(1) capsule daily. * MULTIVITAMIN TABLET Take one(1) tablet daily. * CALCIUM + D 600 MG (1,500 MG)* Take one(1) tablet daily. * ASPIRIN 81 MG TABLET Take one (1) tablet daily . Problem List As Of Date 01/24/2020 Noted Resolved Cervical spondylosis without myelopathy [M47.81*02/26/2005 0 10/04/2013 Hyperlipidemia [E78.5] 03/18/2005 More... FAMILY HX BREAST MALIG [Z80.3] 10/16/2005 Unspecified Chest Pain [R07.9] 12/03/2005 12/07/2009 Other Malaise and Fatigue [R53.81, R53.83] 12/03/20052009 Anxiety state, unspecified [F41.1] 01/15/2007 01/13/2012 Benign neoplasm of colon [D12.6] 11/30/2008 Incontinence of Feces [787.6] 11/30/2008 12/07/2009 Unspecified hemorrhoids without mention of comp*11/30/2008 0 10/04/2013 Allergic rhinitis [J30.9] 11/30/2008 Diverticulosis of colon [K57.30] 01/06/2009 12/31/2016 More... 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 Enthesopathy of hip region [M76.899] 02/04/2011 01/13/2012 Diarrhea [R19.7] 02/08/2014 Anal fissure [K60.2] 03/07/2011 02/08/2014 Palpitations [R00.2] 01/13/2012 01/21/2020 More... IBS (irritable bowel syndrome) [K58.9] 01/26/2013 Rectocele [N81.6] 03/02/2013 10/04/2013 Osteopenia [M85.80] 10/27/2013 Carotid disease, bilateral (HCC) [I77.9] 01/03/2016 05/14/19 Benign meningioma of brain (HCC) [D32.0] 10/28/2017 Muscle weakness [M62.81] 11/25/2018 05/14/2019 Carotid artery stenosis [I65.29] 05/14/2019 Encounter Status:Closed by ULICES OSBORNE CMA on 01/24/20 xr hip 3v pelv+ ap/lat rt on 2020-01-21 XR HIP 3V PELV+ * * *Final Report* * * Normal 1 [facility] AP/LAT RT DATE OF EXAM: Jan 21 2020 10:32AM [place] ([id number]) WOX [id number] - XR HIP 3V PELV+ AP/LAT RT / PROCEDURE REASON: Acute hip pain, right * * * * Physician Interpretation * * * * Right hip History: Right hip pain Findings: AP and frog-leg view performed. Right hip chondroc alcinosis. The right hip joint space is otherwise maintained. No eviden ce of acute fracture. Portions of the iliac wings and sacrum are obscure d by overlying bowel gas and feces and thus cannot be fully evalu ated. Postsurgical changes lower lumbar spine. Multiple bowel sutu res. IMPRESSION: Right hip chondrocalcinosis. Deblocker: YIN Transcribe Date/Time: Jan 21 2020 11:40A Dictated by : DORENE MULLER MD This examination was interpreted and the report reviewed and electronically signed by: DORENE MULLER MD on Jan 21 2020 11:53AM EST [id number] progress on 2020-01 PROGRESS HNO ID: [id number] Normal 01-21-2020 [facility] Author: Padmini Figueroa (Rt) Chuck Blackwell [place] ([id number]) Service: ? Author Type: Telesales Supervisor Type: Progress Notes Filed: 01/21/2020 10:33 AM Note Text: Radiology Service Progress Note PATIENT NAME: Fannie Lucas DATE OF SERVICE: January 21, 2020 TIME: 10:32 AM PATIENT IDENTITY VERIFICATION COMPLETED USING TWO (2) IDENTI FIERS: Name and Date of confirmed by patient verbally. FALL SCREENING: Has the patient had 2 falls in the last year or 1 fall with injury or currently using an Ambulatory Assistive Devic e (Walker, Cane, Wheelchair, Crutches, etc.)? No PATIENT GENDER DATA: Female. status: : No status: NO. PATIENT RELEVANT IMPLANT DATA REVIEWED: Not Applicable RADIOLOGY DEPARTMENT: General X-ray: Exam(s) Completed: Pelv is X-Ray: Pelvis with Hip Right PERIPHERAL IV DATA: Not applicable SIGNED BY: RT Joanie January 21, 2020 10:32 AM PROGRESS HNO ID: [id number] Normal 01-21-2020 [facility] Author: Catina HawleySales Planning Coordinator) [facility] ([id number]) Service: ? Author Type: Nurse Practitioner Type: Progress Notes Filed: 01/21/2020 10:39 AM Note Text: CC: Patient presents with: Medication Follow-up Imm/Inj: Flu Vaccine HPI Fannie Lucas is a 74 year old female who presents today for above. Reports right hip pain x 1 month. Constant aching, aggravate d by walking and changing positions. Alleviated with tylenol and rest. So metimes feels like hip will give out. Denies stiffness, creaking, grating, popping, leg pain, numbness, tingling. History of carotid stenosis, wonde ring if she should have re-evaluated. Having some issues with memory, fo rgetful and trouble with word finding at times. Admits to being under a lot of stress with pandemic and anxious. Denies depressed mood. Patient wa s on Atenolol for years for palpitations but weaned off of it. No issues w ith palpitations since then. Checking BP at home, average in the 110's/60's. 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 - CERVICAL SPONDYLOSIS 02/26/2005 - Diarrhea - Diverticulosis of colon 01/06/2009 - Esophageal reflux - Hemorrhage of rectum and anus 12/02/2017 - HEMORRHOIDS NOS 11/30/2008 - HYPERLIPIDEMIA NEC/NOS 03/18/2005 - IBS (irritable bowel syndrome) 01/26/2013 - Incontinence of feces 11/30/2008 - Osteopenia - Palpitations 01/13/2012 - Perforation of large intestine (HCC) 12/03/2017 - Spondylosis, 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 - TIA (transient ischemic attack) 06/17/2017 [place], [place] PAST SURGICAL HISTORY Procedure Laterality Date - CHOLECYSTECTOMY HX 03/2018 - COLONOSCOP W/ OR W/O BRSH SPEC 10/20/03 Colonoscopy - COLONOSCOP W/ OR W/O BRSH SPEC 01/06/09 Extensive diverticulosis/hemorrhoids - COLONOSCOP W/ OR W/O BRSH SPEC 07/24/2012 Colonoscopy in [place] - COLONOSCOPY DIAG CNTRL BLEED 12/02/2017 laser of cecal AVM - DRAIN ABDOMINAL ABSCESS, PERCUTANEOUS 12/15/2017 perianastomotic abscess - EGD 12/02/2017 - EGD W/O OR W/BRUSH/WASH 07/03/2012 EGD in [place] - HEMORRHOIDECTOMY,INT/EXT,COMPLX 10-26-2009 - LAMINECTOMY,FACETECTOMY,LUMBAR 07/08/2011 [place], [place] - LAP, SURG MOBIL SPLENIC [place] DUR PTL COLECTOMY 02-02-09 - LAPAROSCOPIC HEMICOLECTOMY 02/02/2009 - LAPAROSCOPIC HEMICOLECTOMY Right 12/03/2017 - PAST SURGICAL HISTORY OF 1964 ovarian cyst removed - PAST SURGICAL HISTORY OF 2001 BREAST BIOPSY--BENIGN - PAST SURGICAL HISTORY OF 03/28/2018 Gallbladder removed - SIGMOIDOS , CONTROL BLEED 03/22/09 Granulation tissue at anastomosis - SIGMOIDOS FLEX DIAG W/BX SING/MUL 02/28/11 - TOTAL ABDOM HYSTERECTOMY Hysterectomy, TERI, BSO ALLERGIES Bactrim [Sulfamethoxazole-Trimethoprim], Clindamyc in Hcl, Flagyl [Metronidazole Hcl], and Gadolinium-Containing Contrast Medi a MEDICATIONS atorvastatin (LIPITOR) 40 mg tablet TAKE 1 TABLET EVERY DAY AT BEDTIME FOR CHOLESTEROL polyethylene glycol 3350 (MIRALAX ORAL) Take 0.5 teaspoonsfu l by mouth once daily. wheat dextrin (BENEFIBER CLEAR SF, DEXTRIN, ORAL) Take 0.5 t easpoonsful by mouth once daily. MULTIVITAMIN TAB Take one(1) tablet daily. CALCIUM + D 600 MG-200 UNIT TAB Take one(1) tablet daily. ASPIRIN 81 MG TAB Take one (1) tablet daily . atenolol (TENORMIN) 25 mg tablet Take 1 tablet by mouth once daily. famotidine (PEPCID ORAL) Take by mouth. VITAMIN E 200 UNIT CAP Take one(1) tablet daily. Henry-3 Fatty Acids (FISH OIL) ORAL Cap Take one(1) capsule daily. FAMILY HISTORY Problem Relation Age of Onset - Breast Cancer Mother dec. age 88 - Blood Disease Father PE, post MVA, dec. 53yo - Breast Cancer Sister - other (Other) Sister complications from falling - Breast Cancer Sister - None Sister - other (multiple myeloma) Brother - Alzheimer's Disease Sister Social History Tobacco Use - Smoking status: Never Smoker - Smokeless tobacco: Never Used Substance Use Topics - Alcohol use: No - Drug use: No PHYSICAL EXAM BP 130/80 Pulse 80 Temp 36 ?C (96.8 ?F) (Temporal) Res p 16 Wt 62.1 kg (137 lb) SpO2 98% BMI 24.27 kg/m? General Appearance: well appearing, in no acute distress, al ert Lungs: Lungs clear to auscultation. No wheezing, rhonchi, ra les. Heart: RRR without murmur, gallop, or rubs. No ectopy HEPATITIS C SCREENING due on 09/05/1961 DTAP,TDAP,TD(1 - Tdap) due on 09/05/1962 ADVANCE DIRECTIVE DISCUSSION due on 09/05/2008 SHINGRIX VACCINE(2 of 3) due on 01/11/2011 INFLUENZA(1) due on 12/21/2019 DIABETES SCREEN due on 02/11/2020 COLONOSCOPY due on 12/02/2022 LIPID SCREEN due on 05/28/2023 BONE DENSITY Completed PNEUMOVAX AGE 65 AND OVER WITH 5YR LOOKBACK Completed MENINGOCOCCAL CONJUGATE Completed DATA REVIEWED: Most recent labs ASSESSMENT/PLAN: 1. Hyperlipidemia, unspecified hyperlipidemia type - ICD9: 2 72.4, ICD10: E78.5 (primary diagnosis) - to be determined upon return of lab results - Continue current medication. - LIPID PANEL BASIC - CMP (CMP) (FOR REMOTE [facility] USE) - ATORVASTATIN 40 MG TABLET 2. Acute hip pain, right - ICD9: 719.45, ICD10: M25.551 Likely osteoarthritis - Check XR HIP GENERAL 3V PELV/AP/LAT RT today - Okay to continue with Tylenol as needed - Given hip conditioning exercise handout from [email or web address] - Further recommendations pending results 3. Bilateral carotid artery stenosis - ICD9: 433.10, 433.30, ICD10: I65.23 Recheck - US CAROTID ARTERIES [facility] 4. Palpitations - ICD9: 785.1, ICD10: R00.2 Resolved, atenolol discontinued 5. Irritable bowel syndrome with diarrhea - ICD9: 564.1, ICD 10: K58.0 Stable 6. Need for vaccination - ICD9: V05.9, ICD10: Z23 - INFLUENZA SEASONAL QUADRIVALENT HIGH DOSE AGE 65+ Prescription instructions reviewed with patient as applicabl e. Potential red flag symptoms discussed with the patient. Reviewed appro priate action plan to take if red flag symptoms occur. Patient agreeable t o treatment plan. PAULINO Hobson on 2020-01-21 CNOV Office Visit (INTMWS) Normal 01-21-20 [place] FANNIE Hurd ([id number]) 1945 F [place] Date Time Provider Department ([id number]) 01/21/20 9:40 AM CATINA SHAW (GILL) INTMWS During your visit today, we recorded the following informati on about you: Temperature Pulse Respiration Blood pressure 96.8 degrees 80/minute 16/minute 130/80 Weight 62.1 kg Catina Older, [employer]AD.[employer] 01/21/2020 10:39 AM Signed CC: Patient presents with: Medication Follow-up Imm/Inj: Flu Vaccine HPI aFnnie Lucas is a 74 year old female who presents today for above. Reports right hip pain x 1 month. Constant aching, agg ravated by walking and changing positions. Alleviated with tyle nol and rest. Sometimes feels like hip will give out. Denies stiffness, creaking, grating, popping, leg pain, numbness, tingling. History of carotid stenosis, wondering if she should have re-evaluated. Having some issues with memory, fo rgetful and trouble with word finding at times. Admits to being under a lot of stress with pandemic and anxious. Denies depressed mood. Patient was on Atenolol for years for palpitations but weaned off of it. No issues with palpitatio ns since then. Checking BP at home, average in the 110's/60's. 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 - CERVICAL SPONDYLOSIS 02/26/2005 - Diarrhea - Diverticulosis of colon 01/06/2009 - Esophageal reflux - Hemorrhage of rectum and anus 12/02/2017 - HEMORRHOIDS NOS 11/30/2008 - HYPERLIPIDEMIA NEC/NOS 03/18/2005 - IBS (irritable bowel syndrome) 01/26/2013 - Incontinence of feces 11/30/2008 - Osteopenia - Palpitations 01/13/2012 - Perforation of large intestine (HCC) 12/03/2017 - Spondylosis, 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 - TIA (transient ischemic attack) 06/17/2017 [place], [place] PAST SURGICAL HISTORY Procedure Laterality Date - CHOLECYSTECTOMY HX 03/2018 - COLONOSCOP W/ OR W/O BRSH SPEC 10/20/03 Colonoscopy - COLONOSCOP W/ OR W/O BRSH SPEC 01/06/09 Extensive diverticulosis/hemorrhoids - COLONOSCOP W/ OR W/O BRSH SPEC 07/24/2012 Colonoscopy in [place] - COLONOSCOPY DIAG CNTRL BLEED 12/02/2017 laser of cecal AVM - DRAIN ABDOMINAL ABSCESS, PERCUTANEOUS 12/15/2017 perianastomotic abscess - EGD 12/02/2017 - EGD W/O OR W/BRUSH/WASH 07/03/2012 EGD in [place] - HEMORRHOIDECTOMY,INT/EXT,COMPLX 10-26-2009 - LAMINECTOMY,FACETECTOMY,LUMBAR 07/08/2011 [place] - LAP, SURG MOBIL SPLENIC [place] DUR PTL COLECTOMY 02-02-09 - LAPAROSCOPIC HEMICOLECTOMY 02/02/2009 - LAPAROSCOPIC HEMICOLECTOMY Right 12/03/2017 - PAST SURGICAL HISTORY OF 1963 ovarian cyst removed - PAST SURGICAL HISTORY OF 2001 BREAST BIOPSY--BENIGN - PAST SURGICAL HISTORY OF 03/28/2018 Gallbladder removed - SIGMOIDOS , CONTROL BLEED 03/22/09 Granulation tissue at anastomosis - SIGMOIDOS FLEX DIAG W/BX SING/MUL 02/28/11 - TOTAL ABDOM HYSTERECTOMY Hysterectomy, TERI, BSO ALLERGIES Bactrim [Sulfamethoxazole-Trimethoprim], Clindamyc in Hcl, Flagyl [Metronidazole Hcl], and Gadolinium-Containing Contrast Medi a MEDICATIONS atorvastatin (LIPITOR) 40 mg tablet TAKE 1 TABLET EVERY DAY AT BEDTIME FOR CHOLESTEROL polyethylene glycol 3350 (MIRALAX ORAL) Take 0.5 teaspoons ful by mouth once daily. wheat dextrin (BENEFIBER CLEAR SF, DEXTRIN, ORAL) Take 0.5 t easpoonsful by mouth once daily. MULTIVITAMIN TAB Take one(1) tablet daily. CALCIUM + D 600 MG-200 UNIT TAB Take one(1) tablet daily. ASPIRIN 81 MG TAB Take one (1) tablet daily . atenolol (TENORMIN) 25 mg tablet Take 1 tablet by mouth once daily. famotidine (PEPCID ORAL) Take by mouth. VITAMIN E 200 UNIT CAP Take one(1) tablet daily. Henry-3 Fatty Acids (FISH OIL) ORAL Cap Take one(1) capsule daily. FAMILY HISTORY Problem Relation Age of Onset - Breast Cancer Mother dec. age 88 - Blood Disease Father PE, post MVA, dec. 53yo - Breast Cancer Sister - other (Other) Sister complications from falling - Breast Cancer Sister - None Sister - other (multiple myeloma) Brother - Alzheimer's Disease Sister Social History Tobacco Use - Smoking status: Never Smoker - Smokeless tobacco: Never Used Substance Use Topics - Alcohol use: No - Drug use: No PHYSICAL EXAM BP 130/80 Pulse 80 Temp 36 ?C (96.8 ?F) (Temporal) Res p 16 Wt 62.1 kg (137 lb) SpO2 98% BMI 24.27 kg/m? General Appearance: well appearing, in no acute distress, al ert Lungs: Lungs clear to auscultation. No wheezing, rhonchi, ra les. Heart: RRR without murmur, gallop, or rubs. No ectopy HEPATITIS C SCREENING due on 09/05/1961 DTAP,TDAP,TD(1 - Tdap) due on 09/05/1962 ADVANCE DIRECTIVE DISCUSSION due on 09/05/2008 SHINGRIX VACCINE(2 of 3) due on 01/11/2011 INFLUENZA(1) due on 12/21/2019 DIABETES SCREEN due on 02/11/2020 COLONOSCOPY due on 12/02/2022 LIPID SCREEN due on 05/28/2023 BONE DENSITY Completed PNEUMOVAX AGE 65 AND OVER WITH 5YR LOOKBACK Completed MENINGOCOCCAL CONJUGATE Completed DATA REVIEWED: Most recent labs ASSESSMENT/PLAN: 1. Hyperlipidemia, unspecified hyperlipi demia type - ICD9: 272.4, ICD10: E78.5 (primary diagnosis) - to be determined upon return of lab results - Continue current medication. - LIPID PANEL BASIC - CMP (CMP) (FOR REMOTE [facility] USE) - ATORVASTATIN 40 MG TABLET 2. Acute hip pain, right - ICD9: 719.45, ICD10: M25.551 Likely osteoarthritis - Check XR HIP GENERAL 3V PELV/AP/LAT RT today - Okay to continue with Tylenol as needed - Given hip conditioning exercise handout from [email or web address] - Further recommendations pending results 3. Bilateral carotid artery stenosis - ICD9: 433.10, 433.30, ICD10: I65.23 Recheck - US CAROTID ARTERIES [facility] 4. Palpitations - ICD9: 785.1, ICD10: R00.2 Resolved, atenolol discontinued 5. Irritable bowel syndrome with diarrhea - ICD9: 564.1, ICD 10: K58.0 Stable 6. Need for vaccination - ICD9: V05.9, ICD10: Z23 - INFLUENZA SEASONAL QUADRIVALENT HIGH DOSE AGE 65+ Prescription instructions reviewed with patient as stephani licable. Potential red flag symptoms discussed with the patient. Review ed appropriate action plan to take if red flag symptoms occur. Patient agreeable to treatm ent plan. PAULINO Hobson APRN.[facility] 01/21/2020 10:04 AM Signed You are due for Shingles vaccine (Shingrix), verify coverage with your insurance Referring Provider: SELF [[id number]] Allergies As of Date: 01/21/2020 Noted Allergy Reaction BACTRIM (SULFAMETHOXAZOLE-TRIMETH*02/25/2005 8 - GI Upset Comments: nausea CLINDAMYCIN HCL 09/25/2010 8 - GI Upset FLAGYL (METRONIDAZOLE HCL) 10/19/2009 8 - GI Upset GADOLINIUM-CONTAINING CONTRAST ME*10/28/2017 4 - Hives Comments: Gadolinium/Gadavist Date Reviewed: 12/15/2019 Reviewed by: Maximo Cesar - Fully Assessed Reason for Visit: Medication Follow-up [270] Imm/Inj [58] Cmt: Flu Vaccine Reason For Visit History Recorded Primary Visit Diagnosis:Hype rlipidemia, unspecified hyperlipidemia type [E78.5] Other Visit Diagnoses:Acute hip pain, right [M25.551] Bilateral carotid artery stenosis [I65.23] Palpitations [R00.2] Irritable bowel syndrome with diarrhea [K58.0] Need for vaccination [Z23] Order(s):INFLUENZA SEASONAL QUADRIVALENT HIGH DOSE AGE 65+ [[id number]] Order #: [id number] Cholecalciferol, Vitamin D3, 25 mcg (1,000 unit) capTake 1 c apsule by mouth once daily.Disp: Rfl: LIPID PANEL BASIC [SQLIPB] Order #: [id number] FUTURE CMP (CMP) (FOR REMOTE [facility] USE) [SQRCMP] Order #: [id number] FUTURE US CAROTID ARTERIES [facility] [[id number]] Order #: [id number] FUTURE atorvastatin (LIPITOR) 40 mg tabletTAKE 1 TABLET EVERY DAY A T BEDTIME FOR CHOLESTEROLDisp: 90 tabletRfl: 3 XR HIP GENERAL 3V PELV/AP/LAT RT [[id number]] Order #: [id number] FUTURE Prescriptions as of 01/21/2020 Sig: CHOLECALCIFEROL (VITAMIN D3) * Take 1 capsule by mouth once * ATORVASTATIN 40 MG TABLET TAKE 1 TABLET EVERY DAY AT BE* MIRALAX ORAL Take 0.5 teaspoonsful by mout* BENEFIBER CLEAR SF (DEXTRIN) * Take 0.5 teaspoonsful by mout * * VITAMIN E 200 UNIT CAPSULE Take one(1) tablet daily. * FISH OIL 500 MG CAPSULE Take one(1) capsule daily. * MULTIVITAMIN TABLET Take one(1) tablet daily. * CALCIUM + D 600 MG (1,500 MG)* Take one(1) tablet daily. * ASPIRIN 81 MG TABLET Take one (1) tablet daily . Problem List As Of Date 01/21/2020 Noted Resolved Cervical spondylosis without myelopathy [M47.81*02/26/2005 0 10/04/2013 Hyperlipidemia [E78.5] 03/18/2005 More... FAMILY HX BREAST MALIG [Z80.3] 10/16/2005 Unspecified Chest Pain [R07.9] 12/03/2005 12/07/2009 Other Malaise and Fatigue [R53.81, R53.83] 12/03/20052009 Anxiety state, unspecified [F41.1] 01/15/2007 01/13/2012 Benign neoplasm of colon [D12.6] 11/30/2008 Incontinence of Feces [787.6] 11/30/2008 12/07/2009 Unspecified hemorrhoids without mention of comp*11/30/2008 0 10/04/2013 Allergic rhinitis [J30.9] 11/30/2008 Diverticulosis of colon [K57.30] 01/06/2009 12/31/2016 More... 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 Enthesopathy of hip region [M76.899] 02/04/2011 01/13/2012 Diarrhea [R19.7] 02/08/2014 Anal fissure [K60.2] 03/07/2011 02/08/2014 Palpitations [R00.2] 01/13/2012 01/21/2020 More... IBS (irritable bowel syndrome) [K58.9] 01/26/2013 Rectocele [N81.6] 03/02/2013 10/04/2013 Osteopenia [M85.80] 10/27/2013 Carotid disease, bilateral (HCC) [I77.9] 01/03/2016 05/14/19 20 Benign meningioma of brain (HCC) [D32.0] 10/28/2017 Muscle weakness [M62.81] 11/25/2018 05/14/2019 Carotid artery stenosis [I65.29] 05/14/2019 Other instructions from your clinician: You are due for Shingles vaccine (Shingrix), verify coverage with your insurance Prescriptions ordered this encounter Disp Refills Start End CHOLECALCIFEROL (VITAMIN D3) 25 MCG * 01/21/2020 Class: Med Update Route: ORAL Sig: Take 1 capsule by mouth once daily. ATORVASTATIN 40 MG TABLET 90 t* 3 01/21/2020 Sig: TAKE 1 TABLET EVERY DAY AT BEDTIME FOR CHOLESTEROL Medications Discontinued During This Encounter Prescriptions - atorvastatin (LIPITOR) 40 mg tablet (Discontinued) TAKE 1 TABLET EVERY DAY AT BEDTIME FOR CHOLESTEROL - atenolol (TENORMIN) 25 mg tablet (Discontinued) Take 1 tablet by mouth once daily. - famotidine (PEPCID ORAL) (Discontinued) Take by mouth. Encounter Status:Closed by CATINA SHAW CNP on 01/21/20 No panel information on 2020-01-21 [facility] ([id number]) progress on 2019-11 PROGRESS HNO ID: [id number] Normal 12-15-2019 [place] Author: Maximo Cesar [facility] Service: ? [place] Author Type: Physician ([id number]) Type: Progress Notes Filed: 12/15/2019 4:05 PM Note Text: Fannie Lucas is a 74 year old female who presents for pr oblem visit for . HPI: 74-year-old female who tried a pessary last year for so me rectocele symptoms and defecation difficulties. She states she wore th e pessary about every other month while she was in [place] last spring. She's had it out for the last couple months. She notes that she's had difficulty expelling bowel movements and wearing the pessary did not make a difference one way or the other. She does sometimes splint on her rectum to help defecate. She takes a small amount of fiber a nd a small amount of MiraLAX occasionally to help keep stools soft. In general she notes that her stools are smooth and soft and sometimes flat . She feels that they're sometimes trapped. She sometimes feels some urg ency at her anus and notes she'll have some smearing or passage of small amount of stool. This is becoming enough of an issue that it's affecti ng her quality of life and her ability to go out on daily activitie s. Eyes a blood in her stool or dark tarry stool. She actually had ilda e pain a couple months ago and had a CAT scan and they told her maybe she had diverticulitis. She has a history of colon perforations from colonoscopies and is not to get future colonoscopies. She de nies any changes in diet. She definitely doesn't have hard stools and she generally doesn't have loose stools. She admits she quit doi ng her pelvic floor physical therapy after last December. Shantanu motta to their last note, she could continue to benefit from future appoint ments but had made some improvements. Patient is wondering about a rectoce le repair. She denies anything protruding from her vagina. She had a hy sterectomy in her 40s for benign condition. 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 - CERVICAL SPONDYLOSIS 02/26/2005 - Diarrhea - Diverticulosis of colon 01/06/2009 - Esophageal reflux - Hemorrhage of rectum and anus 12/02/2017 - HEMORRHOIDS NOS 11/30/2008 - HYPERLIPIDEMIA NEC/NOS 03/18/2005 - IBS (irritable bowel syndrome) 01/26/2013 - Incontinence of feces 11/30/2008 - Osteopenia - Palpitations 01/13/2012 - Perforation of large intestine (HCC) 12/03/2017 - Spondylosis, 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 - TIA (transient ischemic attack) 06/17/2017 [place], [place] PAST SURGICAL HISTORY Procedure Laterality Date - CHOLECYSTECTOMY HX 03/2018 - COLONOSCOP W/ OR W/O BRSH SPEC 10/20/03 Colonoscopy - COLONOSCOP W/ OR W/O BRSH SPEC 01/06/09 Extensive diverticulosis/hemorrhoids - COLONOSCOP W/ OR W/O [facility] SPEC 07/24/2012 Colonoscopy in [place] - COLONOSCOPY DIAG CNTRL BLEED 12/02/2017 laser of cecal AVM - DRAIN ABDOMINAL ABSCESS, PERCUTANEOUS 12/15/2017 perianastomotic abscess - EGD 12/02/2017 - EGD W/O OR W/BRUSH/WASH 07/03/2012 EGD in [place] - HEMORRHOIDECTOMY,INT/EXT,COMPLX 10-26-2009 - LAMINECTOMY,FACETECTOMY,LUMBAR 07/08/2011 [place], [place] - LAP, SURG MOBIL SPLENIC [place] DUR PTL COLECTOMY 02-02-09 - LAPAROSCOPIC HEMICOLECTOMY 02/02/2009 - LAPAROSCOPIC HEMICOLECTOMY Right 12/03/2017 - PAST SURGICAL HISTORY OF 1963 ovarian cyst removed - PAST SURGICAL HISTORY OF 2001 BREAST BIOPSY--BENIGN - PAST SURGICAL HISTORY OF 03/28/2018 Gallbladder removed - SIGMOIDOS , CONTROL BLEED 03/22/09 Granulation tissue at anastomosis - SIGMOIDOS FLEX DIAG W/BX SING/MUL 02/28/11 - TOTAL ABDOM HYSTERECTOMY Hysterectomy, TERI, BSO FAMILY HISTORY Problem Relation Age of Onset - Breast Cancer Mother dec. age 88 - Blood Disease Father PE, post MVA, dec. 53yo - Breast Cancer Sister - other (Other) Sister complications from falling - Breast Cancer Sister - None Sister - other (multiple myeloma) Brother - Alzheimer's Disease Sister Social History Tobacco Use - Smoking status: Never Smoker - Smokeless tobacco: Never Used Substance Use Topics - Alcohol use: No - Drug use: No Current Outpatient Medications Medication Sig - atorvastatin (LIPITOR) 40 mg tablet TAKE 1 TABLET EVERY DA Y AT BEDTIME FOR CHOLESTEROL - atenolol (TENORMIN) 25 mg tablet Take 1 tablet by mouth on ce daily. - polyethylene glycol 3350 (MIRALAX ORAL) Take 0.5 teaspoons ful by mouth once daily. - wheat dextrin (BENEFIBER CLEAR SF, DEXTRIN, ORAL) Take 0.5 teaspoonsful by mouth once daily. - VITAMIN E 200 UNIT CAP Take one(1) tablet daily. - Henry-3 Fatty Acids (FISH OIL) ORAL Cap Take one(1) capsul e daily. - MULTIVITAMIN TAB Take one(1) tablet daily. - CALCIUM + D 600 MG-200 UNIT TAB Take one(1) tablet daily. - ASPIRIN 81 MG TAB Take one (1) tablet daily . - famotidine (PEPCID ORAL) Take by mouth. No current facility-administered medications for this visit. Allergies As of Date: 12/15/2019 Allergen Noted Reaction BACTRIM [SULFAMETHOXAZOLE-TRIMETH*02/25/2005 GI Upset CLINDAMYCIN HCL 09/25/2010 GI Upset FLAGYL [METRONIDAZOLE HCL] 10/19/2009 GI Upset GADOLINIUM-CONTAINING CONTRAST ME*10/28/2017 Hives Fully Assessed 12/15/2019 REVIEW OF SYSTEMS Abdomen: She denies any leaking of flatulence, hematochezia or melena Bladder: No dysuria, gross hematuria, urinary frequency, uri nary urgency, or incontinence. Allergies and current medication updated:Yes EXAM: BP 128/70 Wt 136 lb (61.7kg) GENERAL: pleasant, female in no apparent distress PELVIC: external genitalia normal, normal Bartholin's glands , urethra, [place]'s glands, no vulvar lesions, no cervical lesions, phys iologic discharge present, normal appearing perineal body and perian al region, cystocele minimal, rectocele 1st degree, cuff well supported , atrophic flattened epithelium without lesions BIMANUAL: no adnexal masses, non-tender, uterus surgically a bsent and weak levator squeeze. Anus- normal sphincter tone, ball of soft s tool in vault. No RV masses or nodularity. ASSESSMENT AND PLAN: Minimal rectocele, significant defecation dysfunction, no si gnificant urinary issues. At this point discussed with the patient laurie t her rectocele is minimal. Based on this and the fact that she di d not have any improvement with her pessary, in fact that time she felt like her symptoms are worse, I rectocele repair is not indicated. I d iscussed with her it would likely not alleviate her defecation dysfunction . I would recommend that she avoid fiber and take MiraLAX to keep stoo l soft and regular. She does not seem to have a significant weakness of the anal sphincter. She reports that she has 5 small bowel movements a day. Some of them she strains for and some of them are spontaneous, an d some of them are leaking with urgency. I recommend that she follow up wit h pelvic floor physical therapy as she had not optimized this when sh e stopped the treatments last year. In addition, patient agrees that she w ill be more thorough with this and start this back up. If she does not h ave satisfactory results with these 2 measures, I recommend cons ultation with urogynecology or colorectal surgery. Patient agrees with juan diego frias. Maximo Cesar MD cnov on 2019-12-15 CNOV Office Visit (OBGYWM) Normal 12-15-19 20 [place] FANNIE LUCAS ([id number]) 1945 [place] Date Time Provider Department ([id number]) 12/15/19 2:00 PM MAXIMO CESAR OBGYWM During your visit today, we recorded the following informati on about you: Blood pressure Weight 128/70 61.7 kg Maximo Cesar MD 12/15/2019 4:05 PM Signed Fannie Arielle Bailey is a 74 year old female who pre sents for problem visit for . HPI: 74-year-old female who tried a pessary last year for so me rectocele symptoms and defecation difficulties. She states she wore the pessary about every other month while she was in [place] last entering spring. She's had it out for the last couple months. She notes that s he's had difficulty expelling bowel movements and wearing the pessary did not make a difference one way or the other. She does sometimes splint on her rectum to help d efecate. She takes a small amount of fiber and a small amount of MiraLA X occasionally to help keep stools soft. In general she notes that her stools are smooth and soft and sometimes flat. She feels that they're sometimes tr apped. She sometimes feels some urgency at her anus and notes she'll have some smearing or passage of small amount of stool. This is becoming enough of an issue that it's affecting her quality of life and her ability to go out on daily activities. Eyes a blood in her stool or dark tarry stool. She actually had some pain a couple months ago and had a CAT scan and alan galvez told her maybe she had diverticulitis. She has a history of colon perforations from colonoscopies and is not to get future colonoscopies. She denies any gregor nges in diet. She definitely doesn't have hard stools and she generally doesn' t have loose stools. She admits she quit doing her pelvic floor physical therapy after last December. According to their last note, she could co ntinue to benefit from future appointments but had made some impro vements. Patient is wondering about a rectocele repair. She denies anything pr otruding from her vagina. She had a hysterectomy in her 40s for benign condition. 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 - CERVICAL SPONDYLOSIS 02/26/2005 - Diarrhea - Diverticulosis of colon 01/06/2009 - Esophageal reflux - Hemorrhage of rectum and anus 12/02/2017 - HEMORRHOIDS NOS 11/30/2008 - HYPERLIPIDEMIA NEC/NOS 03/18/2005 - IBS (irritable bowel syndrome) 01/26/2013 - Incontinence of feces 11/30/2008 - Osteopenia - Palpitations 01/13/2012 - Perforation of large intestine (HCC) 12/03/2017 - Spondylosis, 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 - TIA (transient ischemic attack) 06/17/2017 [place], [place] PAST SURGICAL HISTORY Procedure Laterality Date - CHOLECYSTECTOMY HX 03/2018 - COLONOSCOP W/ OR W/O BRSH SPEC 10/20/03 Colonoscopy - COLONOSCOP W/ OR W/O BRSH SPEC 01/06/09 Extensive diverticulosis/hemorrhoids - COLONOSCOP W/ OR W/O BRSH SPEC 07/24/2012 Colonoscopy in [place] - COLONOSCOPY DIAG CNTRL BLEED 12/02/2017 laser of cecal AVM - DRAIN ABDOMINAL ABSCESS, PERCUTANEOUS 12/15/2017 perianastomotic abscess - EGD 12/02/2017 - EGD W/O OR W/BRUSH/WASH 07/03/2012 EGD in [place] - HEMORRHOIDECTOMY,INT/EXT,COMPLX 10-26-2009 - LAMINECTOMY,FACETECTOMY,LUMBAR 07/08/2011 [facility] [place] - LAP, SURG MOBIL SPLENIC [place] DUR PTL COLECTOMY 02-02-09 - LAPAROSCOPIC HEMICOLECTOMY 02/02/2009 - LAPAROSCOPIC HEMICOLECTOMY Right 12/03/2017 - PAST SURGICAL HISTORY OF 1964 ovarian cyst removed - PAST SURGICAL HISTORY OF 2001 BREAST BIOPSY--BENIGN - PAST SURGICAL HISTORY OF 03/28/2018 Gallbladder removed - SIGMOIDOS , CONTROL BLEED 03/22/09 Granulation tissue at anastomosis - SIGMOIDOS FLEX DIAG W/BX SING/MUL 02/28/11 - TOTAL ABDOM HYSTERECTOMY Hysterectomy, TERI, BSO FAMILY HISTORY Problem Relation Age of Onset - Breast Cancer Mother dec. age 88 - Blood Disease Father PE, post MVA, dec. 53yo - Breast Cancer Sister - other (Other) Sister complications from falling - Breast Cancer Sister - None Sister - other (multiple myeloma) Brother - Alzheimer's Disease Sister Social History Tobacco Use - Smoking status: Never Smoker - Smokeless tobacco: Never Used Substance Use Topics - Alcohol use: No - Drug use: No Current Outpatient Medications Medication Sig - atorvastatin (LIPITOR) 40 mg tablet TAKE 1 TABLET EV OVI DAY AT BEDTIME FOR CHOLESTEROL - atenolol (TENORMIN) 25 mg tablet Take 1 tablet by mouth on ce daily. - polyethylene glycol 3350 (MIRALAX ORAL) Take 0 .5 teaspoonsful by mouth once daily. - wheat dextrin (BENEFIBER CLEAR SF, DEXTRIN, ORAL) Ta ke 0.5 teaspoonsful by mouth once daily. - VITAMIN E 200 UNIT CAP Take one(1) tablet daily. - Henry-3 Fatty Acids (FISH OIL) ORAL Cap Take one(1) capsul e daily. - MULTIVITAMIN TAB Take one(1) tablet daily. - CALCIUM + D 600 MG-200 UNIT TAB Take one(1) tablet daily. - ASPIRIN 81 MG TAB Take one (1) tablet daily . - famotidine (PEPCID ORAL) Take by mouth. No current facility-administered medications for this visit. Allergies As of Date: 12/15/2019 Allergen Noted Reaction BACTRIM [SULFAMETHOXAZOLE-TRIMETH*02/25/2005 GI Upset CLINDAMYCIN HCL 09/25/2010 GI Upset FLAGYL [METRONIDAZOLE HCL] 10/19/2009 GI Upset GADOLINIUM-CONTAINING CONTRAST ME*10/28/2017 Hives Fully Assessed 12/15/2019 REVIEW OF SYSTEMS Abdomen: She denies any leaking of flatulence, hematochezia or melena Bladder: No dysuria, gross hematuria, urinary frequenc y, urinary urgency, or incontinence. Allergies and current medication updated:Yes EXAM: BP 128/70 Wt 136 lb (61.7kg) GENERAL: pleasant, female in no apparent distress PELVIC: external genitalia normal, nini l Bartholin's glands, urethra, [place]'s glands, no vulvar lesions, no cervical l esions, physiologic discharge present, normal appearing perineal body and perianal region, cystocel e minimal, rectocele 1st degree, cuff well supported, atrophic flattene d epithelium without lesions BIMANUAL: no adnexal masses, non-tender, uterus surgically a bsent and weak levator squeeze. Anus- normal sphincter tone, ba ll of soft stool in vault. No RV masses or nodularity. ASSESSMENT AND PLAN: Minimal rectocele, significant defecation dysfun ction, no significant urinary issues. At this point discussed with the patient that her re ctocele is minimal. Based on this and the fact that she did not have any improvement with her pessary, in fact that time she felt like her symptoms ar e worse, I rectocele repair is not indicated. I discussed with her it would likely not alleviate her defecation dysfunction. I would recommen d that she avoid fiber and take MiraLAX to keep stool soft and regular. She d oes not seem to have a significant weakness of the anal sphincter. She report s that she has 5 small bowel movements a day. Some of them she strains for and some of them are spontaneous, and some of them are leaking with urgency . I recommend that she follow up with pelvic floor physical therapy as she had not optimized this when she stopped the treatments last year. In addition, patient a grees that she will be more thorough with this and start this back up . If she does not have satisfactory results with these 2 measures, I recommend cons ultation with urogynecology or colorectal surgery. Patient agrees with juan diego frias. Maximo Cesar MD Referring Provider: SELF [[id number]] Allergies As of Date: 12/15/2019 Noted Allergy Reaction BACTRIM (SULFAMETHOXAZOLE-TRIMETH*02/25/2005 8 - GI Upset Comments: nausea CLINDAMYCIN HCL 09/25/2010 8 - GI Upset FLAGYL (METRONIDAZOLE HCL) 10/19/2009 8 - GI Upset GADOLINIUM-CONTAINING CONTRAST ME*10/28/2017 4 - Hives Comments: Gadolinium/Gadavist Date Reviewed: 12/15/2019 Reviewed by: Maximo Cesar - Fully Assessed Reason for Visit: Pessary [345] Primary Visit Diagnosis:Rectocele [N81.6] Other Visit Diagnoses:Dyssynergic defecation [K59.02] Incomplete defecation [R15.0] Prescriptions as of 12/15/2019 Sig: ATORVASTATIN 40 MG TABLET TAKE 1 TABLET EVERY DAY AT BE* ATENOLOL 25 MG TABLET Take 1 tablet by mouth once d* MIRALAX ORAL Take 0.5 teaspoonsful by mout* BENEFIBER CLEAR SF (DEXTRIN) * Take 0.5 teaspoonsful by mout * * VITAMIN E 200 UNIT CAPSULE Take one(1) tablet daily. * FISH OIL 500 MG CAPSULE Take one(1) capsule daily. * MULTIVITAMIN TABLET Take one(1) tablet daily. * CALCIUM + D 600 MG (1,500 MG)* Take one(1) tablet daily. * ASPIRIN 81 MG TABLET Take one (1) tablet daily . PEPCID ORAL Take by mouth. Problem List As Of Date 12/15/2019 Noted Resolved Cervical spondylosis without myelopathy [M47.81*02/26/2005 0 10/04/2013 Hyperlipidemia [E78.5] 03/18/2005 More... FAMILY HX BREAST MALIG [Z80.3] 10/16/2005 Unspecified Chest Pain [R07.9] 12/03/2005 12/07/2009 Other Malaise and Fatigue [R53.81, R53.83] 12/03/20052009 Anxiety state, unspecified [F41.1] 01/15/2007 01/13/2012 Benign neoplasm of colon [D12.6] 11/30/2008 Incontinence of Feces [787.6] 11/30/2008 12/07/2009 Unspecified hemorrhoids without mention of comp*11/30/2008 0 10/04/2013 Allergic rhinitis [J30.9] 11/30/2008 Diverticulosis of colon [K57.30] 01/06/2009 12/31/2016 More... 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 Enthesopathy of hip region [M76.899] 02/04/2011 01/13/2012 Diarrhea [R19.7] 02/08/2014 Anal fissure [K60.2] 03/07/2011 02/08/2014 Palpitations [R00.2] 01/13/2012 More... IBS (irritable bowel syndrome) [K58.9] 01/26/2013 Rectocele [N81.6] 03/02/2013 10/04/2013 Osteopenia [M85.80] 10/27/2013 Carotid disease, bilateral (HCC) [I77.9] 01/03/2016 05/14/19 Benign meningioma of brain (HCC) [D32.0] 10/28/2017 Muscle weakness [M62.81] 11/25/2018 05/14/2019 Carotid artery stenosis [I65.29] 05/14/2019 Medications Discontinued During This Encounter Prescriptions - Oxyquinoline-Na Lauryl Sulfate (TRIMO-JESSICA JELLY) 0.025-0.0 1 % gel (Discontinued) Reported on 10/12/2019 Encounter Status:Closed by MAXIMO CESAR MD on 12/15/19 progress on 2019-11 PROGRESS HNO ID: [id number] Normal 11-26-2019 [place] Author: Catina (Gill) [facility]er [facility] Service: ? [place] Author Type: Nurse Practitioner ([id number]) Type: Progress Notes Filed: 11/26/2019 1:00 PM Note Text: CC: Patient presents with: Recheck HPI Fannierosana Lucas is a 74 year old female who presents today for above. She had a routine CT Calcium Scoring cardiac testing because it was being offered for free at [facility]. Test results are not availab le. Patient also asking who she should see about chronic anal leakage. Arielle panda this has been going on intermittently for years. Did see a colorectal surgeon years ago who told her she has a rectocele and anal fissures causi ng this and may need surgical repair. [facility] fitted her for a pessary but u nable to tolerate. She has been to general surgeon Dr. Reid in the [facility] for hemicolectomy. Also asking about stopping Atenolol. She was prescribed this years ago for palpitations secondary to stress. At this point since retiring her stress level is very low and doesn't think she still needs this. No history of HTN or CAD, checks BP's at home and typi luiza in the 110's/60's, sometimes lower. 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 - CERVICAL SPONDYLOSIS 02/26/2005 - Diarrhea - Diverticulosis of colon 01/06/2009 - Esophageal reflux - Hemorrhage of rectum and anus 12/02/2017 - HEMORRHOIDS NOS 11/30/2008 - HYPERLIPIDEMIA NEC/NOS 03/18/2005 - IBS (irritable bowel syndrome) 01/26/2013 - Incontinence of feces 11/30/2008 - Osteopenia - Palpitations 01/13/2012 - Perforation of large intestine (HCC) 12/03/2017 - Spondylosis, 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 - TIA (transient ischemic attack) 06/17/2017 [place], [place] PAST SURGICAL HISTORY Procedure Laterality Date - CHOLECYSTECTOMY HX 03/2018 - COLONOSCOP W/ OR W/O [facility] SPEC 10/20/03 Colonoscopy - COLONOSCOP W/ OR W/O [facility] SPEC 01/06/09 Extensive diverticulosis/hemorrhoids - COLONOSCOP W/ OR W/O [facility] SPEC 07/24/2012 Colonoscopy in [place] - COLONOSCOPY DIAG CNTRL BLEED 12/02/2017 laser of cecal AVM - DRAIN ABDOMINAL ABSCESS, PERCUTANEOUS 12/15/2017 perianastomotic abscess - EGD 12/02/2017 - EGD W/O OR W/BRUSH/WASH 07/03/2012 EGD in [place] - HEMORRHOIDECTOMY,INT/EXT,COMPLX 10-26-2009 - LAMINECTOMY,FACETECTOMY,LUMBAR 07/08/2011 [place], [place] - LAP, SURG MOBIL SPLENIC [place] DUR PTL COLECTOMY 02-02-09 - LAPAROSCOPIC HEMICOLECTOMY 02/02/2009 - LAPAROSCOPIC HEMICOLECTOMY Right 12/03/2017 - PAST SURGICAL HISTORY OF 1963 ovarian cyst removed - PAST SURGICAL HISTORY OF 2001 BREAST BIOPSY--BENIGN - PAST SURGICAL HISTORY OF 03/28/2018 Gallbladder removed - SIGMOIDOS , CONTROL BLEED 03/22/09 Granulation tissue at anastomosis - SIGMOIDOS FLEX DIAG W/BX SING/MUL 02/28/11 - TOTAL ABDOM HYSTERECTOMY Hysterectomy, TERI, BSO ALLERGIES Bactrim [Sulfamethoxazole-Trimethoprim], Clindamyc in Hcl, Flagyl [Metronidazole Hcl], and Gadolinium-Containing Contrast Medi a MEDICATIONS atorvastatin (LIPITOR) 40 mg tablet TAKE 1 TABLET EVERY DAY AT BEDTIME FOR CHOLESTEROL atenolol (TENORMIN) 25 mg tablet Take 1 tablet by mouth once daily. VITAMIN E 200 UNIT CAP Take one(1) tablet daily. Henry-3 Fatty Acids (FISH OIL) ORAL Cap Take one(1) capsule daily. MULTIVITAMIN TAB Take one(1) tablet daily. CALCIUM + D 600 MG-200 UNIT TAB Take one(1) tablet daily. ASPIRIN 81 MG TAB Take one (1) tablet daily . Oxyquinoline-Na Lauryl Sulfate (TRIMO-JESSICA JELLY) 0.025-0.01 % gel Use 1 Applicatorful vaginally two times a week. polyethylene glycol 3350 (MIRALAX ORAL) Take 0.5 teaspoonsfu l by mouth once daily. wheat dextrin (BENEFIBER CLEAR SF, DEXTRIN, ORAL) Take 0.5 t easpoonsful by mouth once daily. famotidine (PEPCID ORAL) Take by mouth. FAMILY HISTORY Problem Relation Age of Onset - Breast Cancer Mother dec. age 88 - Blood Disease Father PE, post MVA, dec. 53yo - Breast Cancer Sister - other (Other) Sister complications from falling - Breast Cancer Sister - None Sister - other (multiple myeloma) Brother - Alzheimer's Disease Sister Social History Tobacco Use - Smoking status: Never Smoker - Smokeless tobacco: Never Used Substance Use Topics - Alcohol use: No - Drug use: No PHYSICAL EXAM BP 112/70 (BP Site: Right Arm) Pulse 68 Temp 36.7 ?C (98 .1 ?F) (Temporal Artery) Resp 14 Wt 60.8 kg (134 lb) SpO2 99% BMI 23.74 kg/m? General Appearance: well appearing, in no acute distress, al ert Pysch: mood and affect broad and appropriate ASSESSMENT/PLAN: 1. Palpitations - ICD9: 785.1, ICD10: R00.2 (primary diagnos is) Resolved, okay to stop Atenolol. Patient given weaning instr uctions. Although patient does not have a history of HTN, advised to call office if home BP consistently > 130/80 2. Incontinence of feces with fecal urgency - ICD9: 787.63, ICD10: R15.9, R15.2 Recommend follow-up with her general surgeon Dr. Reid to di scuss further. She also has an appointment with [facility] concerning the pessary. 3. Encounter to discuss test results - ICD9: V65.49, ICD10: Z71.2 Results are not available. Called [facility] and they will fax them. I will call patient once I receive the results Prescription instructions reviewed with patient as applicabl e. Potential red flag symptoms discussed with the patient. Reviewed appro priate action plan to take if red flag symptoms occur. Patient agreeable t o treatment plan. During this patient visit I have spent approximately 15 fariha sunny in counseling regarding treatment options, medications and test results. PAULINO Hobson on 2019-11-26 GENEVIEVE Telephone (INTMWS) Normal 11-26-2019 [place] [facility] FANNIE LUCAS ([id number]) 1945 F [place] Date Time Provider Department ([id number]) 11/26/19 CATINA SHAW (GILL) INTMWS During your visit today, we recorded the following informati on about you: Catina Shaw APRN.CNP 11/26/2019 1:21 PM Signed Please let the patient know I have revie wed the results of the CAT scan and it showed her annual risk factor group for non-fatal heart ginny ck or coronary artery disease of 0.4% . This is lowest calculated risk factor group which is excellent. Catina Shaw APRN.GILL Osborne Cma 11/26/2019 1:28 PM Signed Patient is notified of all information and verbalizes unders ksenia Osborne Cma Allergies As of Date: 11/26/2019 Noted Allergy Reaction BACTRIM (SULFAMETHOXAZOLE-TRIMETH*02/25/2005 8 - GI Upset Comments: nausea CLINDAMYCIN HCL 09/25/2010 8 - GI Upset FLAGYL (METRONIDAZOLE HCL) 10/19/2009 8 - GI Upset GADOLINIUM-CONTAINING CONTRAST ME*10/28/2017 4 - Hives Comments: Gadolinium/Gadavist Date Reviewed: 11/26/2019 Reviewed by: Brynn Green Ma - Fully Assessed Reason for Visit: Results [95] Prescriptions as of 11/26/2019 Sig: TRIMO-JESSICA JELLY 0.025 %-0.01 * Use 1 Applicatorful vaginally * Patient not taking: Reported on 10/12/2019 ATORVASTATIN 40 MG TABLET TAKE 1 TABLET EVERY DAY AT BE* ATENOLOL 25 MG TABLET Take 1 tablet by mouth once d* MIRALAX ORAL Take 0.5 teaspoonsful by mout* BENEFIBER CLEAR SF (DEXTRIN) * Take 0.5 teaspoonsful by mout * PEPCID ORAL Take by mouth. * VITAMIN E 200 UNIT CAPSULE Take one(1) tablet daily. * FISH OIL 500 MG CAPSULE Take one(1) capsule daily. * MULTIVITAMIN TABLET Take one(1) tablet daily. * CALCIUM + D 600 MG (1,500 MG)* Take one(1) tablet daily. * ASPIRIN 81 MG TABLET Take one (1) tablet daily . Problem List As Of Date 11/26/2019 Noted Resolved Cervical spondylosis without myelopathy [M47.81*02/26/2005 0 10/04/2013 Hyperlipidemia [E78.5] 03/18/2005 More... FAMILY HX BREAST MALIG [Z80.3] 10/16/2005 Unspecified Chest Pain [R07.9] 12/03/2005 12/07/2009 Other Malaise and Fatigue [R53.81, R53.83] 12/03/20052009 Anxiety state, unspecified [F41.1] 01/15/2007 01/13/2012 Benign neoplasm of colon [D12.6] 11/30/2008 Incontinence of Feces [787.6] 11/30/2008 12/07/2009 Unspecified hemorrhoids without mention of comp*11/30/2008 0 10/04/2013 Allergic rhinitis [J30.9] 11/30/2008 Diverticulosis of colon [K57.30] 01/06/2009 12/31/2016 More... 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 Enthesopathy of hip region [M76.899] 02/04/2011 01/13/2012 Diarrhea [R19.7] 02/08/2014 Anal fissure [K60.2] 03/07/2011 02/08/2014 Palpitations [R00.2] 01/13/2012 More... IBS (irritable bowel syndrome) [K58.9] 01/26/2013 Rectocele [N81.6] 03/02/2013 10/04/2013 Osteopenia [M85.80] 10/27/2013 Carotid disease, bilateral (HCC) [I77.9] 01/03/2016 05/14/19 Benign meningioma of brain (HCC) [D32.0] 10/28/2017 Muscle weakness [M62.81] 11/25/2018 05/14/2019 Carotid artery stenosis [I65.29] 05/14/2019 Encounter Status:Closed by ULICES OSBORNE CMA on 11/26/19 cnov on 2019-11-26 CNOV Office Visit (INTMWS) Normal 11-26-[address] [place] [address] FANNIE Hurd ([id number]) 1945 F [place] Date Time Provider Department ([id number]) 11/26/19 11:40 AM CATINA SHAW (DIESEL RET[employer]OFIT INSTALLER) INTMWS During your visit today, we recorded the following informati on about you: Temperature Pulse Respiration Blood pressure 98.1 degrees 68/minute 14/minute 112/70 Weight 60.8 kg Catina Older, [employer]ICATION LEAD.[employer]IT INSTALLER 11/26/2019 1:00 PM Signed CC: Patient presents with: Recheck HPI Fannie Lucas is a 74 year old female who presents today for above. She had a routine CT Calcium Scoring cardiac testing bec ause it was being offered for free at [facility]. Test res ults are not available. Patient also asking who she should see about chronic anal leakage. States this has been going on intermittently for years. Did see a colorectal s urgeon years ago who told her she has a rectocele and anal fissures causing this and may n eed surgical repair. [facility] fitted her for a pessary but unable to gela erate. She has been to general surgeon Dr. Reid in the past for hemicolectomy. Als o asking about stopping Atenolol. She was p rescribed this years ago for palpitations secondary to stress. At this point since retiring her stress level is very low and doesn't think she still needs this. No history of HTN or CAD, checks BP's at home and typically in the 110's/60's, sometimes lower. 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 - CERVICAL SPONDYLOSIS 02/26/2005 - Diarrhea - Diverticulosis of colon 01/06/2009 - Esophageal reflux - Hemorrhage of rectum and anus 12/02/2017 - HEMORRHOIDS NOS 11/30/2008 - HYPERLIPIDEMIA NEC/NOS 03/18/2005 - IBS (irritable bowel syndrome) 01/26/2013 - Incontinence of feces 11/30/2008 - Osteopenia - Palpitations 01/13/2012 - Perforation of large intestine (HCC) 12/03/2017 - Spondylosis, 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 - TIA (transient ischemic attack) 06/17/2017 [place], [place] PAST SURGICAL HISTORY Procedure Laterality Date - CHOLECYSTECTOMY HX 03/2018 - COLONOSCOP W/ OR W/O [facility] SPEC 10/20/03 Colonoscopy - COLONOSCOP W/ OR W/O [facility] SPEC 01/06/09 Extensive diverticulosis/hemorrhoids - COLONOSCOP W/ OR W/O [facility] SPEC 07/24/2012 Colonoscopy in [place] - COLONOSCOPY DIAG CNTRL BLEED 12/02/2017 laser of cecal AVM - DRAIN ABDOMINAL ABSCESS, PERCUTANEOUS 12/15/2017 perianastomotic abscess - EGD 12/02/2017 - EGD W/O OR W/BRUSH/WASH 07/03/2012 EGD in [place] - HEMORRHOIDECTOMY,INT/EXT,COMPLX 10-26-2009 - LAMINECTOMY,FACETECTOMY,LUMBAR 07/08/2011 [place], [place] - LAP, SURG MOBIL SPLENIC [place] DUR PTL COLECTOMY 02-02-09 - LAPAROSCOPIC HEMICOLECTOMY 02/02/2009 - LAPAROSCOPIC HEMICOLECTOMY Right 12/03/2017 - PAST SURGICAL HISTORY OF 1963 ovarian cyst removed - PAST SURGICAL HISTORY OF 2001 BREAST BIOPSY--BENIGN - PAST SURGICAL HISTORY OF 03/28/2018 Gallbladder removed - SIGMOIDOS , CONTROL BLEED 03/22/09 Granulation tissue at anastomosis - SIGMOIDOS FLEX DIAG W/BX SING/MUL 02/28/11 - TOTAL ABDOM HYSTERECTOMY Hysterectomy, TERI, BSO ALLERGIES Bactrim [Sulfamethoxazole-Trimethoprim], Clindamyc in Hcl, Flagyl [Metronidazole Hcl], and Gadolinium-Containing Contrast Medi a MEDICATIONS atorvastatin (LIPITOR) 40 mg tablet TAKE 1 TABLET EVERY DAY AT BEDTIME FOR CHOLESTEROL atenolol (TENORMIN) 25 mg tablet Take 1 tablet by mouth once daily. VITAMIN E 200 UNIT CAP Take one(1) tablet daily. Henry-3 Fatty Acids (FISH OIL) ORAL Cap Take one(1) capsule daily. MULTIVITAMIN TAB Take one(1) tablet daily. CALCIUM + D 600 MG-200 UNIT TAB Take one(1) tablet daily. ASPIRIN 81 MG TAB Take one (1) tablet daily . Oxyquinoline-Na Lauryl Sulfate (TRIMO-JESSICA JELLY) 0.025-0.01 % gel Use 1 Applicatorful vaginally two times a week. polyethylene glycol 3350 (MIRALAX ORAL) Take 0.5 teaspoons ful by mouth once daily. wheat dextrin (BENEFIBER CLEAR SF, DEXTRIN, ORAL) Take 0.5 t easpoonsful by mouth once daily. famotidine (PEPCID ORAL) Take by mouth. FAMILY HISTORY Problem Relation Age of Onset - Breast Cancer Mother dec. age 88 - Blood Disease Father PE, post MVA, dec. 53yo - Breast Cancer Sister - other (Other) Sister complications from falling - Breast Cancer Sister - None Sister - other (multiple myeloma) Brother - Alzheimer's Disease Sister Social History Tobacco Use - Smoking status: Never Smoker - Smokeless tobacco: Never Used Substance Use Topics - Alcohol use: No - Drug use: No PHYSICAL EXAM BP 112/70 (BP Site: Right Arm) Pulse 68 Temp 36.7 ?C (98.1 ?F) (Temporal Artery) Resp 14 Wt 60.8 kg (134 lb) SpO2 99% BMI 23. 74 kg/m? General Appearance: well appearing, in no acute distress, al ert Pysch: mood and affect broad and appropriate ASSESSMENT/PLAN: 1. Palpitations - ICD9: 785.1, ICD10: R00.2 (primary diagnos is) Resolved, okay to stop Atenolol. Patient given chacha norman instructions. Although patient does not have a history of HTN, advised to call offi cecilia if home BP consistently > 130/80 2. Incontinence of feces wit h fecal urgency - ICD9: 787.63, ICD10: R15.9, R15.2 Recommend follow-up with her general alan geon Dr. Reid to discuss further. She also has an appointment with [facility] concerning the pessary. 3. Encounter to discuss test results - ICD9: V65.49, ICD10: Z71.2 Results are not available. Called [facility] and they will fax them. I will call patient once I receive the results Prescription instructions reviewed with patient as stephani licable. Potential red flag symptoms discussed with the patient. Review ed appropriate action plan to take if red flag symptoms occur. Patient agreeable to treatm ent plan. During this patient visit I have spent approxima tely 15 minutes in counseling regarding treatment options, medications and test results. PAULINO Hobson APRN.CNP 11/26/2019 11:58 AM Signed Decrease Atenolol to 12.5 mg daily for one week. Then to 12.5 mg every other day for one week. Then discontinue Call office if blood pressure consistently above 130/80 Referring Provider: SELF [200] Allergies As of Date: 11/26/2019 Noted Allergy Reaction BACTRIM (SULFAMETHOXAZOLE-TRIMETH*02/25/2005 8 - GI Upset Comments: nausea CLINDAMYCIN HCL 09/25/2010 8 - GI Upset FLAGYL (METRONIDAZOLE HCL) 10/19/2009 8 - GI Upset GADOLINIUM-CONTAINING CONTRAST ME*10/28/2017 4 - Hives Comments: Gadolinium/Gadavist Date Reviewed: 11/26/2019 Reviewed by: Brynn Green Ma - Fully Assessed Reason for Visit: Recheck [92] Primary Visit Diagnosis:Palpitations [R00.2] Other Visit Diagnoses:Incontinence of feces with fecal urgency [R15.9, R15.2] Encounter to discuss test results [Z71.2] Prescriptions as of 11/26/2019 Sig: ATORVASTATIN 40 MG TABLET TAKE 1 TABLET EVERY DAY AT BE* ATENOLOL 25 MG TABLET Take 1 tablet by mouth once d* * VITAMIN E 200 UNIT CAPSULE Take one(1) tablet daily. * FISH OIL 500 MG CAPSULE Take one(1) capsule daily. * MULTIVITAMIN TABLET Take one(1) tablet daily. * CALCIUM + D 600 MG (1,500 MG)* Take one(1) tablet daily. * ASPIRIN 81 MG TABLET Take one (1) tablet daily . TRIMO-JESSICA JELLY 0.025 %-0.01 * Use 1 Applicatorful vaginally * Patient not taking: Reported on 10/12/2019 MIRALAX ORAL Take 0.5 teaspoonsful by mout* BENEFIBER CLEAR SF (DEXTRIN) * Take 0.5 teaspoonsful by mout * PEPCID ORAL Take by mouth. Problem List As Of Date 11/26/2019 Noted Resolved Cervical spondylosis without myelopathy [M47.81*02/26/2005 0 10/04/2013 Hyperlipidemia [E78.5] 03/18/2005 More... FAMILY HX BREAST MALIG [Z80.3] 10/16/2005 Unspecified Chest Pain [R07.9] 12/03/2005 12/07/2009 Other Malaise and Fatigue [R53.81, R53.83] 12/03/20052009 Anxiety state, unspecified [F41.1] 01/15/2007 01/13/2012 Benign neoplasm of colon [D12.6] 11/30/2008 Incontinence of Feces [787.6] 11/30/2008 12/07/2009 Unspecified hemorrhoids without mention of comp*11/30/2008 0 10/04/2013 Allergic rhinitis [J30.9] 11/30/2008 Diverticulosis of colon [K57.30] 01/06/2009 12/31/2016 More... 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 Enthesopathy of hip region [M76.899] 02/04/2011 01/13/2012 Diarrhea [R19.7] 02/08/2014 Anal fissure [K60.2] 03/07/2011 02/08/2014 Palpitations [R00.2] 01/13/2012 More... IBS (irritable bowel syndrome) [K58.9] 01/26/2013 Rectocele [N81.6] 03/02/2013 10/04/2013 Osteopenia [M85.80] 10/27/2013 Carotid disease, bilateral (HCC) [I77.9] 01/03/2016 05/14/19 Benign meningioma of brain (HCC) [D32.0] 10/28/2017 Muscle weakness [M62.81] 11/25/2018 05/14/2019 Carotid artery stenosis [I65.29] 05/14/2019 Other instructions from your clinician: Decrease Atenolol to 12.5 mg daily for one week. Then to 12. 5 mg every other day for one week. Then discontinue Call office if blood pressure consistently above 130/80 Encounter Status:Closed by CATINA SHAW CNP on 11/26/19 ct cardiac scoring on 2019-10-25 CT CARDIAC Normal 10-25-2019 [facility] SCORING Patient Name: BAILEYApplimation ([id number]) STUDY: CT CARDIAC SCORING; 10/25/2019 2:03 pm INDICATION: SCREENING FOR HEART DISEASE. COMPARISON: None. ACCESSION NUMBER(S): [id number] ORDERING CLINICIAN: GAVIN TIJERINA TECHNIQUE: Using prospective ECG gating, CT scan of the coronary arteri es was performed without intravenous contrast. Coronary calcium sco ring was performed according to the method of Agatston. FINDINGS: The score and distribution of calcium in the coronary arteri es is as follows: LM: 94.97. LAD: 90.31. LCx: 0. RCA: 2.49. Total: 187.77. The visualized segments of the lungs demonstrate mild atelec tasis and/or scarring. There is a small calcified granuloma in the left upper lobe. The visualized mid/lower ascending thoracic aorta measures 3 .4 cm in diameter. The heart is mildly enlarged. No pericardial effusion is pre sent. No gross evidence of mediastinal or hilar lymphadenopathy is identified. The visualized subdiaphragmatic structures appear grossly in tact. IMPRESSION: 1. Coronary artery calcium score of 27.77. *Coronary artery calcium scoring may be helpful in predictin g the risk for future coronary heart disease events. According to the [employer] Clinical Expert Co nsensus Task Force, such testing provides important prognostic infor mation in patients with more than one coronary heart disease risk fact or. The coronary artery calcium score correlates with the annual ris k of a non-fatal myocardial infarction or coronary heart disease de ath. Coronary artery score Annual Risk 0-99 0.4% 100-399 1.3% >400 2.4% These three breakpoints correspond to lower, intermediate and high risk states for future coronary events. Such information richy uld be used, along with appropriate clinical judgment, to make deci sions regarding the intensity of risk factor management strategies to treat blood lipids and to modify other non-lipid coronary risk fac tors. Reference: Callaway P et al. Circulation. 2007; 115:402-426 Electronically signed by: SHOLA SINHA MD progress on 2019-09 PROGRESS HNO ID: [id number] Normal 10-12-2019 [facility] Author: Micheal Kunz [facility] Service: ? ([id number]) Author Type: Physician Type: Progress Notes Filed: 10/12/2019 11:55 AM Note Text: NEUROSURGERY FOLLOW UP OFFICE NOTE Micheal Kunz MD Date of visit: October 12, 2019 Patient Name: Ms.Marjorie Arielle Lucas Date of : 1945 Current Age: [age] year old Sex: female MRN/E# [id number] Last Office Visit: Visit date not found Chief Complaint: Patient presents with: Follow Up: discuss MRI SUBJECTIVE: Ms. Lucas presents to the office today for a follow up visit for a left parasagittal meningioma. She was last seen on 09/03/2018 and neurologically was doing well without concerns. She was init ially evaluated in September of 2017 after experiencing visual changes. Today she states she continues to do well without neurologic symptoms. She denies headaches, changes in vision, balance or coordination distur bances. She presents for evaluation and plan of care. Symptoms: none PREVIOUS CONSERVATIVE TREATMENTS: None PREVIOUS SURGERY: None PAIN EVALUATION No data found in the last 1 encounters. 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 - CERVICAL SPONDYLOSIS 02/26/2005 - Diarrhea - Diverticulosis of colon 01/06/2009 - Esophageal reflux - Hemorrhage of rectum and anus 12/02/2017 - HEMORRHOIDS NOS 11/30/2008 - HYPERLIPIDEMIA NEC/NOS 03/18/2005 - IBS (irritable bowel syndrome) 01/26/2013 - Incontinence of feces 11/30/2008 - Osteopenia - Palpitations 01/13/2012 - Perforation of large intestine (HCC) 12/03/2017 - Spondylosis, 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 - TIA (transient ischemic attack) 06/17/2017 [place], [place] PAST SURGICAL HISTORY Procedure Laterality Date - CHOLECYSTECTOMY HX 03/2018 - COLONOSCOP W/ OR W/O BRSH SPEC 10/20/03 Colonoscopy - COLONOSCOP W/ OR W/O BRSH SPEC 01/06/09 Extensive diverticulosis/hemorrhoids - COLONOSCOP W/ OR W/O BRSH SPEC 07/24/2012 Colonoscopy in [place] - COLONOSCOPY DIAG CNTRL BLEED 12/02/2017 laser of cecal AVM - DRAIN ABDOMINAL ABSCESS, PERCUTANEOUS 12/15/2017 perianastomotic abscess - EGD 12/02/2017 - EGD W/O OR W/BRUSH/WASH 07/03/2012 EGD in [place] - HEMORRHOIDECTOMY,INT/EXT,COMPLX 10-26-2009 - LAMINECTOMY,FACETECTOMY,LUMBAR 07/08/2011 [place], [place] - LAP, SURG MOBIL SPLENIC [place] DUR PTL COLECTOMY 02-02-09 - LAPAROSCOPIC HEMICOLECTOMY 02/02/2009 - LAPAROSCOPIC HEMICOLECTOMY Right 12/03/2017 - PAST SURGICAL HISTORY OF 1963 ovarian cyst removed - PAST SURGICAL HISTORY OF 2001 BREAST BIOPSY--BENIGN - PAST SURGICAL HISTORY OF 03/28/2018 Gallbladder removed - SIGMOIDOS , CONTROL BLEED 03/22/09 Granulation tissue at anastomosis - SIGMOIDOS FLEX DIAG W/BX SING/MUL 02/28/11 - TOTAL ABDOM HYSTERECTOMY Hysterectomy, TERI, BSO FAMILY HISTORY Problem Relation Age of Onset - Breast Cancer Mother dec. age 88 - Blood Disease Father PE, post MVA, dec. 53yo - Breast Cancer Sister - other (Other) Sister complications from falling - Breast Cancer Sister - None Sister - other (multiple myeloma) Brother - Alzheimer's Disease Sister ALLERGIES Allergen Reactions - Bactrim [Sulfametho* GI Upset nausea - Clindamycin Hcl GI Upset - Flagyl [Metronidazo* GI Upset - Gadolinium-Containi* Hives Gadolinium/Gadavist Current Outpatient Medications Medication Sig Dispense Refill - atorvastatin (LIPITOR) 40 mg tablet TAKE 1 TABLET EVERY DA Y AT BEDTIME FOR CHOLESTEROL 90 tablet 3 - atenolol (TENORMIN) 25 mg tablet Take 1 tablet by mouth on ce daily. 90 tablet 3 - polyethylene glycol 3350 (MIRALAX ORAL) Take 0.5 teaspoons ful by mouth once daily. - wheat dextrin (BENEFIBER CLEAR SF, DEXTRIN, ORAL) Take 0.5 teaspoonsful by mouth once daily. - VITAMIN E 200 UNIT CAP Take one(1) tablet daily. 0 - Henry-3 Fatty Acids (FISH OIL) ORAL Cap Take one(1) capsul e daily. 0 - MULTIVITAMIN TAB Take one(1) tablet daily. 0 - CALCIUM + D 600 MG-200 UNIT TAB Take one(1) tablet daily. 0 - ASPIRIN 81 MG TAB Take one (1) tablet daily . 0 - Oxyquinoline-Na Lauryl Sulfate (TRIMO-JESSICA JELLY) 0.025-0.0 1 % gel Use 1 Applicatorful vaginally two times a week. (Patient not abimael motta: Reported on 10/12/2019 ) 1 Tube 3 - famotidine (PEPCID ORAL) Take by mouth. No current facility-administered medications for this visit. REVIEW OF SYSTEMS Review of Systems Constitutional: Negative for chills, diaphoresis and fever. HENT: Negative for congestion, ear pain and sinus pressure. Eyes: Negative for discharge and redness. Respiratory: Negative for cough, shortness of breath and whe ezing. Cardiovascular: Negative for chest pain, palpitations and le g swelling. Gastrointestinal: Negative for constipation, diarrhea and na usea. Endocrine: Negative for cold intolerance and heat intoleranc e. Genitourinary: Negative for difficulty urinating, frequency and urgency. Musculoskeletal: Negative for back pain, gait problem and ne ck pain. Skin: Negative for rash and wound. Allergic/Immunologic: Negative for environmental allergies a nd food allergies. Neurological: Negative for dizziness, tremors, seizures, wea kness, numbness and headaches. Hematological: Does not bruise/bleed easily. Psychiatric/Behavioral: Negative for agitation. The patient is not nervous/anxious. OBJECTIVE: BP 140/65 Pulse 66 Temp 98.2 Resp 16 Ht 5' 3 (1.60m ) Wt 136 lb (61.7kg) SpO2 98% BMI 24.10 kg/(m2). Physical Exam Constitutional: She is oriented to person, place, and time a nd well-developed, well-nourished, and in no distress. HENT: Head: Normocephalic and atraumatic. Right Ear: External ear normal. Left Ear: External ear normal. Eyes: Pupils are equal, round, and reactive to light. Conjun ctivae and lids are normal. Neck: Normal range of motion. Pulmonary/Chest: Effort normal. Musculoskeletal: Normal range of motion. Neurological: She is oriented to person, place, and time. Co ordination normal. Skin: Skin is warm and dry. Psychiatric: Her speech is normal. Mood and affect normal. Neurological Exam Mental Status Oriented to person, place and time. Recent and remote memory are intact. Speech is normal. Language is fluent with no aphasia. Attent ion and concentration are normal. Cranial Nerves CN II: Visual acuity is normal. Visual burns full to confro ntation. CN III, IV, : Extraocular movements intact bilaterally. No rmal lids and orbits bilaterally. Pupils equal round and reactive to light bilaterally. CN V: Facial sensation is normal. CN VII: Full and symmetric facial movement. CN VIII: Hearing is normal. CN IX, X: Palate elevates symmetrically. Normal gag reflex. CN XI: Shoulder shrug strength is normal. CN XII: Tongue midline without atrophy or fasciculations. Motor Normal muscle bulk throughout. Sensory Sensation is intact to light touch, pinprick, vibration and proprioception in all four extremities. Coordination Nfahge-vr-xulh, rapid alternating movements and pssp-hb-hlau normal bilaterally without dysmetria. Gait Normal casual, toe, heel and tandem gait. Data Review IMAGING STUDIES: MRI of the brain on 09/28/2019 Personal review of medical records: I reviewed with the kirk ent, history, physical exam, the images and the chart. 1. Benign meningioma of brain (HCC) The patient returns today for follow-up. She is doing very w ell and denies any active symptoms. Neurologically she is stable. Her MRI i mages were reviewed and there is a stable appearance of a left parasagi ttal meningioma. I told her surgical treatment is clearly not war ranted as long as the tumor is stable. She will return to see me in 2 years for routine follow-up. All of her questions were addressed in detail. - MRI BRAIN WO/W IVCON; Future - iv contrast (will be provided with radiology test); MRI Br ain Inject, intravenously, once for 1 dose.No IV access, insert saline l ock prior to beginning of sedation, infusion, injection of imaging exam.D iscontinue saline lock post exam. If Pt. has a central line or IVAD, ma y access for administration according to line specific nursing protocol.O nce exam is complete flush line and de-access according to line specific nursing protocol in the MR contrast administration guidelines link D ispense: 1 Each; Refill: 0 Micheal Kunz MD This note was partially generated using [employer] system, and there may be some incorrect words, spellings, and punctu ation that were not noted in checking the note before saving. cnpn on 2019-10-12 CNPN Telephone (INTMWS) Normal 10-12-2019 [facility] FANNIE LUCAS ([id number]) 1945 [facility] Time Provider Department ([id number]) 10/12/19 GAVIN TIJERINA INTJOHN During your visit today, we recorded the following informati on about you: Deysi Oates LPN 10/12/2019 3:44 PM Signed Patient calling to see if you would be willing to orde r a CT Coronary Artery Calcium Score screening. [facility] is hernandez motta this free of charge thru month of October. Insurance is not [facility] [employer] either. Please review and advise patient. Deysi Tijerina MD 10/13/2019 9:54 AM Signed ASSESSMENT/PLAN: 1. Screening for heart disease - ICD9: V81.2, ICD10: Z13.6 - CT CALCIUM SCORING (CARDIAC) WO IVCON - Please coordinate facility per patient's preference. MD Ulices Florian [facility] 10/13/2019 10:11 AM Signed Faxed to [facility]. Pt notified. Allergies As of Date: 10/12/2019 Noted Allergy Reaction BACTRIM (SULFAMETHOXAZOLE-TRIMETH*02/25/2005 8 - GI Upset Comments: nausea CLINDAMYCIN HCL 09/25/2010 8 - GI Upset FLAGYL (METRONIDAZOLE HCL) 10/19/2009 8 - GI Upset GADOLINIUM-CONTAINING CONTRAST ME*10/28/2017 4 - Hives Comments: Gadolinium/Gadavist Date Reviewed: 10/12/2019 Reviewed by: Micheal Kunz - Fully Assessed Reason for Visit: Orders [681] Primary Visit Diagnosis:Screening for heart disease [Z13.6] Order(s):CT CALCIUM SCORING (CARDIAC) WO IVCON [820448 3] Order #: [id number] FUTURE Prescriptions as of 10/12/2019 Sig: IV CONTRAST (RADIOLOGY PROCED* MRI Brain Inject, intravenous * TRIMO-JESSICA JELLY 0.025 %-0.01 * Use 1 Applicatorful vaginally * Patient not taking: Reported on 10/12/2019 ATORVASTATIN 40 MG TABLET TAKE 1 TABLET EVERY DAY AT BE* ATENOLOL 25 MG TABLET Take 1 tablet by mouth once d* MIRALAX ORAL Take 0.5 teaspoonsful by mout* BENEFIBER CLEAR SF (DEXTRIN) * Take 0.5 teaspoonsful by mout * PEPCID ORAL Take by mouth. * VITAMIN E 200 UNIT CAPSULE Take one(1) tablet daily. * FISH OIL 500 MG CAPSULE Take one(1) capsule daily. * MULTIVITAMIN TABLET Take one(1) tablet daily. * CALCIUM + D 600 MG (1,500 MG)* Take one(1) tablet daily. * ASPIRIN 81 MG TABLET Take one (1) tablet daily . Problem List As Of Date 10/12/2019 Noted Resolved Cervical spondylosis without myelopathy [M47.81*02/26/2005 0 10/04/2013 Hyperlipidemia [E78.5] 03/18/2005 More... FAMILY HX BREAST MALIG [Z80.3] 10/16/2005 Unspecified Chest Pain [R07.9] 12/03/2005 12/07/2009 Other Malaise and Fatigue [R53.81, R53.83] 12/03/20052009 Anxiety state, unspecified [F41.1] 01/15/2007 01/13/2012 Benign neoplasm of colon [D12.6] 11/30/2008 Incontinence of Feces [787.6] 11/30/2008 12/07/2009 Unspecified hemorrhoids without mention of comp*11/30/2008 0 10/04/2013 Allergic rhinitis [J30.9] 11/30/2008 Diverticulosis of colon [K57.30] 01/06/2009 12/31/2016 More... 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 Enthesopathy of hip region [M76.899] 02/04/2011 01/13/2012 Diarrhea [R19.7] 02/08/2014 Anal fissure [K60.2] 03/07/2011 02/08/2014 Palpitations [R00.2] 01/13/2012 More... IBS (irritable bowel syndrome) [K58.9] 01/26/2013 Rectocele [N81.6] 03/02/2013 10/04/2013 Osteopenia [M85.80] 10/27/2013 Carotid disease, bilateral (HCC) [I77.9] 01/03/2016 05/14/19 Benign meningioma of brain (HCC) [D32.0] 10/28/2017 Muscle weakness [M62.81] 11/25/2018 05/14/2019 Carotid artery stenosis [I65.29] 05/14/2019 Encounter Status:Closed by ULICES OSBORNE CMA on 10/13/19 cnov on 2019-10-12 CNOV Office Visit (LIUAGAK) Normal 10-12-19 [facility] FANNIE LUCAS ([id number]) 1945 F Medical Date Time Provider Department Center 10/12/19 11:30 AM MICHEAL KUNZ ([id number]) During your visit today, we recorded the following informati on about you: Temperature Pulse Respiration Blood pressure 98.2 degrees 66/minute 16/minute 140/65 Weight Height 61.7 kg 1.6 m Micheal Kunz MD 10/12/2019 11:55 AM Signed NEUROSURGERY FOLLOW UP OFFICE NOTE Micheal Kunz MD Date of visit: October 12, 2019 Patient Name: Ms.Marjorie Arielle Lucas Date of : 1945 Current Age: [age] year old Sex: female MRN/E# [id number] Last Office Visit: Visit date not found Chief Complaint: Patient presents with: Follow Up: discuss MRI SUBJECTIVE: Ms. Lucas presents to the office today for a follow up visit for a left parasagittal meningioma. She was last seen on 09/03/2018 and neurologically was doing well without concerns. She was ini tially evaluated in September of 2017 after experiencing visual changes. Today she s tates she continues to do well without neurologic symptoms. She denies headaches, changes in vision , balance or coordination disturbances. She presents for evaluation and p mahad of care. Symptoms: none PREVIOUS CONSERVATIVE TREATMENTS: None PREVIOUS SURGERY: None PAIN EVALUATION No data found in the last 1 encounters. 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 - CERVICAL SPONDYLOSIS 02/26/2005 - Diarrhea - Diverticulosis of colon 01/06/2009 - Esophageal reflux - Hemorrhage of rectum and anus 12/02/2017 - HEMORRHOIDS NOS 11/30/2008 - HYPERLIPIDEMIA NEC/NOS 03/18/2005 - IBS (irritable bowel syndrome) 01/26/2013 - Incontinence of feces 11/30/2008 - Osteopenia - Palpitations 01/13/2012 - Perforation of large intestine (HCC) 12/03/2017 - Spondylosis, 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 - TIA (transient ischemic attack) 06/17/2017 [place], [place] PAST SURGICAL HISTORY Procedure Laterality Date - CHOLECYSTECTOMY HX 03/2018 - COLONOSCOP W/ OR W/O BRSH SPEC 10/20/03 Colonoscopy - COLONOSCOP W/ OR W/O BRSH SPEC 01/06/09 Extensive diverticulosis/hemorrhoids - COLONOSCOP W/ OR W/O BRSH SPEC 07/24/2012 Colonoscopy in [place] - COLONOSCOPY DIAG CNTRL BLEED 12/02/2017 laser of cecal AVM - DRAIN ABDOMINAL ABSCESS, PERCUTANEOUS 12/15/2017 perianastomotic abscess - EGD 12/02/2017 - EGD W/O OR W/BRUSH/WASH 07/03/2012 EGD in [place] - HEMORRHOIDECTOMY,INT/EXT,COMPLX 10-26-2009 - LAMINECTOMY,FACETECTOMY,LUMBAR 07/08/2011 [place], [place] - LAP, SURG MOBIL SPLENIC [place] DUR PTL COLECTOMY 02-02-09 - LAPAROSCOPIC HEMICOLECTOMY 02/02/2009 - LAPAROSCOPIC HEMICOLECTOMY Right 12/03/2017 - PAST SURGICAL HISTORY OF 1964 ovarian cyst removed - PAST SURGICAL HISTORY OF 2001 BREAST BIOPSY--BENIGN - PAST SURGICAL HISTORY OF 03/28/2018 Gallbladder removed - SIGMOIDOS , CONTROL BLEED 03/22/09 Granulation tissue at anastomosis - SIGMOIDOS FLEX DIAG W/BX SING/MUL 02/28/11 - TOTAL ABDOM HYSTERECTOMY Hysterectomy, TERI, BSO FAMILY HISTORY Problem Relation Age of Onset - Breast Cancer Mother dec. age 88 - Blood Disease Father PE, post MVA, dec. 53yo - Breast Cancer Sister - other (Other) Sister complications from falling - Breast Cancer Sister - None Sister - other (multiple myeloma) Brother - Alzheimer's Disease Sister ALLERGIES Allergen Reactions - Bactrim [Sulfametho* GI Upset nausea - Clindamycin Hcl GI Upset - Flagyl [Metronidazo* GI Upset - Gadolinium-Containi* Hives Gadolinium/Gadavist Current Outpatient Medications Medication Sig Dispense Refill - atorvastatin (LIPITOR) 40 mg tablet TAKE 1 TABLET EV DAY AT BEDTIME FOR CHOLESTEROL 90 tablet 3 - atenolol (TENORMIN) 25 mg tablet Take 1 tablet by mouth once daily. 90 tablet 3 - polyethylene glycol 3350 (MIRALAX ORAL) Take 0 .5 teaspoonsful by mouth once daily. - wheat dextrin (BENEFIBER CLEAR SF, DEXTRIN, ORAL) Ta ke 0.5 teaspoonsful by mouth once daily. - VITAMIN E 200 UNIT CAP Take one(1) tablet daily. 0 - Henry-3 Fatty Acids (FISH OIL) ORAL Cap Take one(1) capsul e daily. 0 - MULTIVITAMIN TAB Take one(1) tablet daily. 0 - CALCIUM + D 600 MG-200 UNIT TAB Take one(1) tablet daily. 0 - ASPIRIN 81 MG TAB Take one (1) tablet daily . 0 - Oxyquinoline-Na Lauryl Sulfate (TRIMO-JESSICA JELLY) 0.025-0.0 1 % gel Use 1 Applicatorful vaginally two times a week. (Patient not abimael motta: Reported on 10/12/2019 ) 1 Tube 3 - famotidine (PEPCID ORAL) Take by mouth. No current facility-administered medications for this visit. REVIEW OF SYSTEMS Review of Systems Constitutional: Negative for chills, diaphoresis and fever. HENT: Negative for congestion, ear pain and sinus pressure. Eyes: Negative for discharge and redness. Respiratory: Negative for cough, shortness of breath and whe ezing. Cardiovascular: Negative for chest pain, palpitations and le g swelling. Gastrointestinal: Negative for constipation, diarrhea and na usea. Endocrine: Negative for cold intolerance and heat intoleranc e. Genitourinary: Negative for difficulty urinating, frequency and urgency. Musculoskeletal: Negative for back pain, gait problem and ne ck pain. Skin: Negative for rash and wound. Allergic/Immunologic: Negative for envir onmental allergies and food allergies. Neurological: Negative for d izziness, tremors, seizures, weakness, numbness and headaches. Hematological: Does not bruise/bleed easily. Psychiatric/Behavioral: Negative for agitation. The patient is not nervous/anxious. OBJECTIVE: BP 140/65 Pulse 66 Temp 98.2 Resp 16 Ht 5' 3 (1.60m ) Wt 136 lb (61.7kg) SpO2 98% BMI 24.10 kg/(m2). Physical Exam Constitutional: She is oriented to perso n, place, and time and well-developed, well-nourished, and in no distress. HENT: Head: Normocephalic and atraumatic. Right Ear: External ear normal. Left Ear: External ear normal. Eyes: Pupils are equal, roun d, and reactive to light. Conjunctivae and lids are normal. Neck: Normal range of motion. Pulmonary/Chest: Effort normal. Musculoskeletal: Normal range of motion. Neurological: She is oriented to person, place, and time. Coordination normal. Skin: Skin is warm and dry. Psychiatric: Her speech is normal. Mood and affect normal. Neurological Exam Mental Status Oriented to person, place and time. Recent and remote memory are intact. Speech is normal. Language is fluent with no aphasia. Attent ion and concentration are normal. Cranial Nerves CN II: Visual acuity is normal. Visual burns full to confro ntation. CN III, IV, : Extraocular movements intact bilaterally. No rmal lids and orbits bilaterally. Pupils equal round and reactive to light bilaterally. CN V: Facial sensation is normal. CN VII: Full and symmetric facial movement. CN VIII: Hearing is normal. CN IX, X: Palate elevates symmetrically. Normal gag reflex. CN XI: Shoulder shrug strength is normal. CN XII: Tongue midline without atrophy or fasciculations. Motor Normal muscle bulk throughout. Sensory Sensation is intact to light touch, pinprick, vi bration and proprioception in all four extremities. Coordination Juuefg-nn-ocsk, rapid altern ating movements and smkl-sj-jfvm normal bilaterally without dysmetria. Gait Normal casual, toe, heel and tandem gait. Data Review IMAGING STUDIES: MRI of the brain on 09/28/2019 Personal review of medical records: I reviewed with the kirk ent, history, physical exam, the images and the chart. 1. Benign meningioma of brain (HCC) The patient returns today for follow-up. She is doing very well and denies any active symptoms. Neurologica lly she is stable. Her MRI images were reviewed and there is a stable appearance of a left parasagittal meningio ma. I told her surgical treatment is clearl y not warranted as long as the tumor is stable. She will return to see me in 2 years for routine follow-up . All of her questions were addressed in detail. - MRI BRAIN WO/W IVCON; Future - iv contrast (will be provided with radiology test); MRI Br ain Inject, intravenously, once for 1 dose.No IV access, insert saline l ock prior to beginning of sedation, infusion, injection of im aging exam.Discontinue saline lock post exam. If Pt. has a central line or IVAD, may acces s for administration according to line specific nursing protocol.O nce exam is complete flush line and de-access according to l ine specific nursing protocol in the MR contrast administration guidelines toi k Dispense: 1 Each; Refill: 0 Micheal Kunz MD This note was partially generated using [employer] system, and there may be some incorrect words, spellings, and punctuat ion that were not noted in checking the note before saving. Referring Provider: GAVIN TIJERINA [[id number]] Allergies As of Date: 10/12/2019 Noted Allergy Reaction BACTRIM (SULFAMETHOXAZOLE-TRIMETH*02/25/2005 8 - GI Upset Comments: nausea CLINDAMYCIN HCL 09/25/2010 8 - GI Upset FLAGYL (METRONIDAZOLE HCL) 10/19/2009 8 - GI Upset GADOLINIUM-CONTAINING CONTRAST ME*10/28/2017 4 - Hives Comments: Gadolinium/Gadavist Date Reviewed: 10/12/2019 Reviewed by: Micheal Kunz - Fully Assessed Reason for Visit: Follow Up [171] Cmt: discuss MRI Primary Visit Diagnosis:Benign meningioma of brain (HCC) [D3 2.0] Order(s):MRI BRAIN WO/W IVCON [[id number]] Order #: [id number] FUTURE iv contrast (will be provided with radiology test)MRI Brain Inject, intravenously, once for 1 dose.No IV access, insert saline l ock prior to beginning of sedation, infusion, injection of imaging exam.Discontinue saline lock post exam. If Pt. has a central line or IVAD, may access for administration according to line specif ic nursing protocol.Once exam is complete flush line and de-access acco rding to line specific nursing protocol in the MR contrast administra tion guidelines linkDisp: 1 EachRfl: 0 Prescriptions as of 10/12/2019 Sig: ATORVASTATIN 40 MG TABLET TAKE 1 TABLET EVERY DAY AT BE* ATENOLOL 25 MG TABLET Take 1 tablet by mouth once d* MIRALAX ORAL Take 0.5 teaspoonsful by mout* BENEFIBER CLEAR SF (DEXTRIN) * Take 0.5 teaspoonsful by mout * * VITAMIN E 200 UNIT CAPSULE Take one(1) tablet daily. * FISH OIL 500 MG CAPSULE Take one(1) capsule daily. * MULTIVITAMIN TABLET Take one(1) tablet daily. * CALCIUM + D 600 MG (1,500 MG)* Take one(1) tablet daily. * ASPIRIN 81 MG TABLET Take one (1) tablet daily . IV CONTRAST (RADIOLOGY PROCED* MRI Brain Inject, intravenous * TRIMO-JESSICA JELLY 0.025 %-0.01 * Use 1 Applicatorful vaginally * Patient not taking: Reported on 10/12/2019 PEPCID ORAL Take by mouth. Problem List As Of Date 10/12/2019 Noted Resolved Cervical spondylosis without myelopathy [M47.81*02/26/2005 0 10/04/2013 Hyperlipidemia [E78.5] 03/18/2005 More... FAMILY HX BREAST MALIG [Z80.3] 10/16/2005 Unspecified Chest Pain [R07.9] 12/03/2005 12/07/2009 Other Malaise and Fatigue [R53.81, R53.83] 12/03/20052009 Anxiety state, unspecified [F41.1] 01/15/2007 01/13/2012 Benign neoplasm of colon [D12.6] 11/30/2008 Incontinence of Feces [787.6] 11/30/2008 12/07/2009 Unspecified hemorrhoids without mention of comp*11/30/2008 0 10/04/2013 Allergic rhinitis [J30.9] 11/30/2008 Diverticulosis of colon [K57.30] 01/06/2009 12/31/2016 More... 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 Enthesopathy of hip region [M76.899] 02/04/2011 01/13/2012 Diarrhea [R19.7] 02/08/2014 Anal fissure [K60.2] 03/07/2011 02/08/2014 Palpitations [R00.2] 01/13/2012 More... IBS (irritable bowel syndrome) [K58.9] 01/26/2013 Rectocele [N81.6] 03/02/2013 10/04/2013 Osteopenia [M85.80] 10/27/2013 Carotid disease, bilateral (HCC) [I77.9] 01/03/2016 05/14/19 20 Benign meningioma of brain (HCC) [D32.0] 10/28/2017 Muscle weakness [M62.81] 11/25/2018 05/14/2019 Carotid artery stenosis [I65.29] 05/14/2019 Prescriptions ordered this encounter Disp Refills Start End IV CONTRAST (RADIOLOGY PROCEDURE) 1 Ea* 0 10/12/2019 020 Class: In Office Sig: MRI Brain Inject, intravenously, once for 1 dose.No IV access, insert saline lock prior to beginning of sedation, infusion, inject ion of imaging exam.Discontinue saline lock post exam. If Pt. has a central line or IVAD, may access for administration according to toi e specific nursing protocol.Once exam is complete flush line and de-acc ess according to line specific nursing protocol in the MR contra st administration guidelines link Disposition: Return in about 2 years (around 10/11/2021). Follow-up and Disposition History Recorded Encounter Status:Closed by MICHEAL KUNZ MD on 0 mr-brain w/wo contrast import on 2019-09-28 MR-Brain W/WO Images were obtained Normal 09-27 [facility] Contrast IMPORT outside of [place] [facility] ([id number]) [facility] obsolete on 2019-09 OBSOLETE Refill (LIUAGAK) Normal 09-23-2019 [facility] FANNIE LUCAS ([id number]) 1945 F Medical Date Time Provider Department Center 09/23/19 BARBARA BOYKIN (FABRICATION LEAD, DIESEL RETROFIT INSTALLER) JANESSA ([id number]) During your visit today, we recorded the following informati on about you: Soledad (Rn) Pilo 09/23/2019 11:04 AM Signed Patient will MRI contrast al lergy- requires prep per [facility] protocol. Patient also requesting Valium for MRI. Schedule d for 09/28/2019. Barbara Boykin APRN.CNP 09/23/2019 12:05 PM Signed OK for valium prior to MRI and pre medication due to contras t allergy. OARRS reviewed and no suspicious activity noted. Prescriptions approved, signed and sent to pharmacy on file. Barbara Boykin APRN.CNP 12:04 PM 09/23/2019 Allergies As of Date: 09/23/2019 Noted Allergy Reaction BACTRIM (SULFAMETHOXAZOLE-TRIMETH*02/25/2005 8 - GI Upset Comments: nausea CLINDAMYCIN HCL 09/25/2010 8 - GI Upset FLAGYL (METRONIDAZOLE HCL) 10/19/2009 8 - GI Upset GADOLINIUM-CONTAINING CONTRAST ME*10/28/2017 4 - Hives Comments: Gadolinium/Gadavist Date Reviewed: 02/23/2019 Reviewed by: Carolyn Nguyen Ma - Fully Assessed Reason for Visit: Refill Request [94] Primary Visit Diagnosis:Benign meningioma of brain (HCC) [D3 2.0] Order(s):predniSONE (DELTASONE) 50 mgTake 1 tabl et by mouth every 6 hours for 3 doses. MRI contrast prep- to be taken at 13 hours prior, 7 hours prior, and 1 hour prior to MRIDisp: 3 tabletRfl: 0 diphenhydrAMINE (BENADRYL) 50 mg capsuleTake 1 capsule by mo uth one time only for 1 dose. Take 1 hour prior to MRI d/t contrast allergyDisp: 1 capsuleRfl: 0 diazePAM (VALIUM) 5 mg tabletTake 1 tablet by mouth as neede d for up to 2 doses. Take one tablet by mouth 30 minutes prior to MRI , may repeat x1 as neededDisp: 2 tabletRfl: 0 Prescriptions as of 09/23/2019 Sig: PREDNISONE 50 MG TABLET Take 1 tablet by mouth every * DIPHENHYDRAMINE 50 MG CAPSULE Take 1 capsule by mouth one t* DIAZEPAM 5 MG TABLET Take 1 tablet by mouth as nee* TRIMO-JESSICA JELLY 0.025 %-0.01 * Use 1 Applicatorful vaginally * ATORVASTATIN 40 MG TABLET TAKE 1 TABLET EVERY DAY AT BE* ATENOLOL 25 MG TABLET Take 1 tablet by mouth once d* MIRALAX ORAL Take 0.5 teaspoonsful by mout* BENEFIBER CLEAR SF (DEXTRIN) * Take 0.5 teaspoonsful by mout * PEPCID ORAL Take by mouth. * VITAMIN E 200 UNIT CAPSULE Take one(1) tablet daily. * FISH OIL 500 MG CAPSULE Take one(1) capsule daily. * MULTIVITAMIN TABLET Take one(1) tablet daily. * CALCIUM + D 600 MG (1,500 MG)* Take one(1) tablet daily. * ASPIRIN 81 MG TABLET Take one (1) tablet daily . Problem List As Of Date 09/23/2019 Noted Resolved Cervical spondylosis without myelopathy [M47.81*02/26/2005 0 10/04/2013 Hyperlipidemia [E78.5] 03/18/2005 More... FAMILY HX BREAST MALIG [Z80.3] 10/16/2005 Unspecified Chest Pain [R07.9] 12/03/2005 12/07/2009 Other Malaise and Fatigue [R53.81, R53.83] 12/03/20052009 Anxiety state, unspecified [F41.1] 01/15/2007 01/13/2012 Benign neoplasm of colon [D12.6] 11/30/2008 Incontinence of Feces [787.6] 11/30/2008 12/07/2009 Unspecified hemorrhoids without mention of comp*11/30/2008 0 10/04/2013 Allergic rhinitis [J30.9] 11/30/2008 Diverticulosis of colon [K57.30] 01/06/2009 12/31/2016 More... 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 Enthesopathy of hip region [M76.899] 02/04/2011 01/13/2012 Diarrhea [R19.7] 02/08/2014 Anal fissure [K60.2] 03/07/2011 02/08/2014 Palpitations [R00.2] 01/13/2012 More... IBS (irritable bowel syndrome) [K58.9] 01/26/2013 Rectocele [N81.6] 03/02/2013 10/04/2013 Osteopenia [M85.80] 10/27/2013 Carotid disease, bilateral (HCC) [I77.9] 01/03/2016 05/14/19 20 Benign meningioma of brain (HCC) [D32.0] 10/28/2017 Muscle weakness [M62.81] 11/25/2018 05/14/2019 Carotid artery stenosis [I65.29] 05/14/2019 Prescriptions ordered this encounter Disp Refills Start End PREDNISONE 50 MG TABLET 3 ta* 0 09/23/2019 09/24/2019 Route: ORAL Sig: Take 1 tablet by mouth every 6 hours for 3 doses. MRI contrast prep- to be taken at 13 hours prior, 7 hours prior, and 1 hour prior to MRI DIPHENHYDRAMINE 50 MG CAPSULE 1 ca* 0 09/23/2019 09/23/2019 Route: ORAL Sig: Take 1 capsule by mouth one time only for 1 dose. Ashish e 1 hour prior to MRI d/t contrast allergy DIAZEPAM 5 MG TABLET 2 ta* 0 09/23/2019 09/29/2019 Route: ORAL Sig: Take 1 tablet by mouth as needed for up to 2 doses. T fantasma one tablet by mouth 30 minutes prior to MRI, may repeat x1 as needed Medications Discontinued During This Encounter predniSONE (DELTASONE) 50 mg tab 3 ta* 0 08/19/2018 09/23/2019 Route: ORAL Sig: Take 1 tablet by mouth every 6 hours for 3 doses. MRI contrast prep- to be taken at 13 hours prior, 7 hours prior, and 1 hour prior to MRI Disc: Reason for discontinue is not on file. Cosign accepted by MICHEAL KUNZ MD[[id number]] on 3:38 PM diphenhydrAMINE (BENADRYL) 50 mg cap* 1 ca* 0 08/20/2018 020 Route: ORAL Sig: Take 1 capsule by mouth one time only for 1 dose. Take 1 hour prior to MRI d/t contrast allergy Disc: Reason for discontinue is not on file. Cosign accepted by MICHEAL KUNZ MD[[id number]] on 3:38 PM Encounter Status:Closed by BARBARA BOYKIN CNP on 09/23/19 cnpn on 2019-09-02 CNPN Telephone (IMGCMN) Normal 09-02-2019 [place] [facility] FANNIE LUCAS ([id number]) 1945 F [place] Date Time Provider Department ([id number]) 09/02/19 GI RODNEY (RES) IMMN During your visit today, we recorded the following informati on about you: Gi Rodney MD 09/02/2019 9:43 AM Signed Geriatric Emergency Needs Assessment Called patient/family at September 02, 2019 on 9:40 AM by telephone at [phone]. Contact made with patient: Yes Patient did answer the phone call and was appreciative of at tempt however declined to participate in this encounter at this time. Gi Rodney MD September 02, 2019 9:40 AM [id number] Allergies As of Date: 09/02/2019 Noted Allergy Reaction BACTRIM (SULFAMETHOXAZOLE-TRIMETH*02/25/2005 8 - GI Upset Comments: nausea CLINDAMYCIN HCL 09/25/2010 8 - GI Upset FLAGYL (METRONIDAZOLE HCL) 10/19/2009 8 - GI Upset GADOLINIUM-CONTAINING CONTRAST ME*10/28/2017 4 - Hives Comments: Gadolinium/Gadavist Date Reviewed: 02/23/2019 Reviewed by: Carolyn Nguyen Ma - Fully Assessed Reason for Visit: Telemedicine [0313] Geriatric Assessment [3618] Primary Visit Diagnosis:Encounter for geriatric assessment [ Z01.89] Prescriptions as of 09/02/2019 Sig: TRIMO-JESSICA JELLY 0.025 %-0.01 * Use 1 Applicatorful vaginally * ATORVASTATIN 40 MG TABLET TAKE 1 TABLET EVERY DAY AT BE* ATENOLOL 25 MG TABLET Take 1 tablet by mouth once d* MIRALAX ORAL Take 0.5 teaspoonsful by mout* BENEFIBER CLEAR SF (DEXTRIN) * Take 0.5 teaspoonsful by mout * PEPCID ORAL Take by mouth. * VITAMIN E 200 UNIT CAPSULE Take one(1) tablet daily. * FISH OIL 500 MG CAPSULE Take one(1) capsule daily. * MULTIVITAMIN TABLET Take one(1) tablet daily. * CALCIUM + D 600 MG (1,500 MG)* Take one(1) tablet daily. * ASPIRIN 81 MG TABLET Take one (1) tablet daily . Problem List As Of Date 09/02/2019 Noted Resolved Cervical spondylosis without myelopathy [M47.81*02/26/2005 0 10/04/2013 Hyperlipidemia [E78.5] 03/18/2005 More... FAMILY HX BREAST MALIG [Z80.3] 10/16/2005 Unspecified Chest Pain [R07.9] 12/03/2005 12/07/2009 Other Malaise and Fatigue [R53.81, R53.83] 12/03/20052009 Anxiety state, unspecified [F41.1] 01/15/2007 01/13/2012 Benign neoplasm of colon [D12.6] 11/30/2008 Incontinence of Feces [787.6] 11/30/2008 12/07/2009 Unspecified hemorrhoids without mention of comp*11/30/2008 0 10/04/2013 Allergic rhinitis [J30.9] 11/30/2008 Diverticulosis of colon [K57.30] 01/06/2009 12/31/2016 More... 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 Enthesopathy of hip region [M76.899] 02/04/2011 01/13/2012 Diarrhea [R19.7] 02/08/2014 Anal fissure [K60.2] 03/07/2011 02/08/2014 Palpitations [R00.2] 01/13/2012 More... IBS (irritable bowel syndrome) [K58.9] 01/26/2013 Rectocele [N81.6] 03/02/2013 10/04/2013 Osteopenia [M85.80] 10/27/2013 Carotid disease, bilateral (HCC) [I77.9] 01/03/2016 05/14/19 Benign meningioma of brain (HCC) [D32.0] 10/28/2017 Muscle weakness [M62.81] 11/25/2018 05/14/2019 Carotid artery stenosis [I65.29] 05/14/2019 Encounter Status:Closed by [facility]NEY [facility] CNPN Telephone (LANDEN) Normal 07-26-2019 [place] FANNIE Hurd ([id number]) 1945 F [place] Date Time Provider Department ([id number]) 07/26/19 MALIA PATEL During your visit today, we recorded the following informati on about you: Pete Beltran 07/26/2019 2:28 PM Signed Patient calls and is currently wintering in [facility]; due to come home 08/20/19. She says she is scheduled to have an ERCP in [place] on due to some symptoms she has been having and per res ults of MRI showing a problem with the bile duct near the pancreas. She says the ERCP was cancelled once d/t coronavirus situation in [facility], and patient feels it will be cancelled again. Patient says she wants to have an alternative plan if she is unable to have ERCP in [place], and asks if Polina Patel would see her upon return to discuss. If so, patient would like to schedule an appoint ment sooner than later so she does not have to wait once she gets home. [phone]. Malia Patel RN FABRICATION LEAD.DIESEL RETROFIT INSTALLER 07/27/2019 1:21 PM Addendum The patient's appointment isaac ould be with a educational program assistant, not me. Once she gets that appointment, she c ould ask for their fax number and have the provider down there fax up their reports, which would be ideal. I sent her a [email or web address] message with the same recommendation, along with phone numbers. aMlia Patel RN APRN.GILL Oates LPN 08/03/2019 8:36 AM Signed Spoke with the patient and she did get the message and will be contacting [place] [facility]. Deysi Oates LPN Allergies As of Date: 07/26/2019 Noted Allergy Reaction BACTRIM (SULFAMETHOXAZOLE-TRIMETH*02/25/2005 8 - GI Upset Comments: nausea CLINDAMYCIN HCL 09/25/2010 8 - GI Upset FLAGYL (METRONIDAZOLE HCL) 10/19/2009 8 - GI Upset GADOLINIUM-CONTAINING CONTRAST ME*10/28/2017 4 - Hives Comments: Gadolinium/Gadavist Date Reviewed: 02/23/2019 Reviewed by: Carolyn Nguyen Ma - Fully Assessed Reason for Visit: Appointment [186] Prescriptions as of 07/26/2019 Sig: TRIMO-JESSICA JELLY 0.025 %-0.01 * Use 1 Applicatorful vaginally * ATORVASTATIN 40 MG TABLET TAKE 1 TABLET EVERY DAY AT BE* ATENOLOL 25 MG TABLET Take 1 tablet by mouth once d* MIRALAX ORAL Take 0.5 teaspoonsful by mout* BENEFIBER CLEAR SF (DEXTRIN) * Take 0.5 teaspoonsful by mout * PEPCID ORAL Take by mouth. * VITAMIN E 200 UNIT CAPSULE Take one(1) tablet daily. * FISH OIL 500 MG CAPSULE Take one(1) capsule daily. * MULTIVITAMIN TABLET Take one(1) tablet daily. * CALCIUM + D 600 MG (1,500 MG)* Take one(1) tablet daily. * ASPIRIN 81 MG TABLET Take one (1) tablet daily . Problem List As Of Date 07/26/2019 Noted Resolved Cervical spondylosis without myelopathy [M47.81*02/26/2005 0 10/04/2013 Hyperlipidemia [E78.5] 03/18/2005 More... FAMILY HX BREAST MALIG [Z80.3] 10/16/2005 Unspecified Chest Pain [R07.9] 12/03/2005 12/07/2009 Other Malaise and Fatigue [R53.81, R53.83] 12/03/20052009 Anxiety state, unspecified [F41.1] 01/15/2007 01/13/2012 Benign neoplasm of colon [D12.6] 11/30/2008 Incontinence of Feces [787.6] 11/30/2008 12/07/2009 Unspecified hemorrhoids without mention of comp*11/30/2008 0 10/04/2013 Allergic rhinitis [J30.9] 11/30/2008 Diverticulosis of colon [K57.30] 01/06/2009 12/31/2016 More... 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 Enthesopathy of hip region [M76.899] 02/04/2011 01/13/2012 Diarrhea [R19.7] 02/08/2014 Anal fissure [K60.2] 03/07/2011 02/08/2014 Palpitations [R00.2] 01/13/2012 More... IBS (irritable bowel syndrome) [K58.9] 01/26/2013 Rectocele [N81.6] 03/02/2013 10/04/2013 Osteopenia [M85.80] 10/27/2013 Carotid disease, bilateral (HCC) [I77.9] 01/03/2016 05/14/19 20 Benign meningioma of brain (HCC) [D32.0] 10/28/2017 Muscle weakness [M62.81] 11/25/2018 05/14/2019 Carotid artery stenosis [I65.29] 05/14/2019 Encounter Status:Closed by NABIL NORTON on 07/27/19 cnpn on 2019-03-31 CNPN Telephone (WOOB) Normal 03-31-2019 [facility] FANNIE LUCAS ([id number]) 1945 [facility] Time Provider Department ([id number]) 03/31/19 MAXIMO CESAR WOOB During your visit today, we recorded the following informati on about you: Gela Jose RN 03/31/2019 9:45 AM Signed Patient currently in [place]. Was seen i february for pessary. Patient states RR was going to send in a prescription for a cream to use. She checked with [employer] and a prescription was not sent. Asking if RR could mail a prescription to her in [place]. Current address: [address] [place] [address] Gela Cesar MD 03/31/2019 10:07 AM Signed Patient's request for medication is as follows Signed Prescriptions Disp Refills Oxyquinoline-Na Lauryl Sulfate (TRIMO-JESSICA JELLY) 0.025-0.01 % gel 1 Tube 3 Sig: Use 1 Applicatorful vaginally two times a week. Authorizing Provider: MAXIMO CESAR Order entered - please phone pharmacy and notify patient. Mxaimo Cesar MD Printed. Maximo Cesar MD Note-we can see how she does w/ this. If gets a lot of irritation may need to use vaginal estrogen in the future. MD Gela Palacio RN 03/31/2019 10:22 AM Signed Spoke with patient's . Aware that Rx is ready and herminio l mailed to [facility] address. Gela Jose RN Allergies As of Date: 03/31/2019 Noted Allergy Reaction BACTRIM (SULFAMETHOXAZOLE-TRIMETH*02/25/2005 8 - GI Upset Comments: nausea CLINDAMYCIN HCL 09/25/2010 8 - GI Upset FLAGYL (METRONIDAZOLE HCL) 10/19/2009 8 - GI Upset GADOLINIUM-CONTAINING CONTRAST ME*10/28/2017 4 - Hives Comments: Gadolinium/Gadavist Date Reviewed: 02/23/2019 Reviewed by: Carolyn Nguyen Ma - Fully Assessed Reason for Visit: Patient Question [9327] Order(s):Oxyquinoline-Na Lauryl Sulfate (TRIMO-S AN JELLY) 0.025-0.01 % gelUse 1 Applicatorful vaginally two times a week.Disp: 1 TubeRfl: 3 Prescriptions as of 03/31/2019 Sig: TRIMO-JESSICA JELLY 0.025 %-0.01 * Use 1 Applicatorful vaginally * ATORVASTATIN 40 MG TABLET TAKE 1 TABLET EVERY DAY AT BE* ATENOLOL 25 MG TABLET Take 1 tablet by mouth once d* MIRALAX ORAL Take 0.5 teaspoonsful by mout* BENEFIBER CLEAR SF (DEXTRIN) * Take 0.5 teaspoonsful by mout * PEPCID ORAL Take by mouth. * VITAMIN E 200 UNIT CAPSULE Take one(1) tablet daily. * FISH OIL 500 MG CAPSULE Take one(1) capsule daily. * MULTIVITAMIN TABLET Take one(1) tablet daily. * CALCIUM + D 600 MG (1,500 MG)* Take one(1) tablet daily. * ASPIRIN 81 MG TABLET Take one (1) tablet daily . Problem List As Of Date 03/31/2019 Noted Resolved Cervical spondylosis without myelopathy [M47.81*02/26/2005 0 10/04/2013 Hyperlipidemia [E78.5] 03/18/2005 More... FAMILY HX BREAST MALIG [Z80.3] 10/16/2005 Unspecified Chest Pain [R07.9] 12/03/2005 12/07/2009 Other Malaise and Fatigue [R53.81, R53.83] 12/03/20052009 Anxiety state, unspecified [F41.1] 01/15/2007 01/13/2012 Benign neoplasm of colon [D12.6] 11/30/2008 Incontinence of Feces [787.6] 11/30/2008 12/07/2009 Unspecified hemorrhoids without mention of comp*11/30/2008 0 10/04/2013 Allergic rhinitis [J30.9] 11/30/2008 Diverticulosis of colon [K57.30] 01/06/2009 12/31/2016 More... 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 Enthesopathy of hip region [M76.899] 02/04/2011 01/13/2012 Diarrhea [R19.7] 02/08/2014 Anal fissure [K60.2] 03/07/2011 02/08/2014 Palpitations [R00.2] 01/13/2012 More... IBS (irritable bowel syndrome) [K58.9] 01/26/2013 Rectocele [N81.6] 03/02/2013 10/04/2013 Osteopenia [M85.80] 10/27/2013 Carotid disease, bilateral (HCC) [I73.9] 01/03/2016 Benign meningioma of brain (HCC) [D32.0] 10/28/2017 Muscle weakness [M62.81] 11/25/2018 Prescriptions ordered this encounter Disp Refills Start End TRIMO-JESSICA JELLY 0.025 %-0.01 % VAGIN* 1 Tu* 3 03/31/2019 Class: Print RX Route: VAGINAL Sig: Use 1 Applicatorful vaginally two times a week. Encounter Status:Closed by MAXIMO CESAR MD on 03/31/19 progress on 2019-03 PROGRESS HNO ID: [id number] Normal 03-29-2019 [facility] Author: Charmaine Andrade (Pt) [place] Min ([id number]) Service: ? Author Type: Physical Therapist Type: Progress Notes Filed: 03/29/2019 3:21 PM Note Text: 03/29/2019 [facility] PHYSICAL THERAPY DISCONTINUANCE OF CARE Plan of Care Period: Start of Care Date: 11/02/18 Last Visit Date: 01/06/2019 Therapy Program: The following is a summary of the intervent ions provided for this episode of care; Therapeutic exercise, Manual therapy, Self- shelter management and Patient/Family/Caregiver Education Assessment: The following is the goal status: Goals for Episode of Care:updateded on 01/06/19 Incontinence: Patient to demonstrate independence with HEP M et Increase strength of pelvic floor to to demonstrate a 10 sec hold 10x with full release Met Patient reports increased water intake to 6 glasses / day Me t Patient demonstrates ability to perform diaphragmatic breath ing / relaxation Met Patient demonstrates ability to correctly isolate pelvic moni or muscles Met Patient reports increased ability to fully empty bladder / b owels Mostly Met Patient displays proper technique for bearing down without u se of accessory muscles Met Patient displays improved ability to perform 10 quick flicks within 20 seconds for improved control of urgency Partially Met Patient reports stool of firmer consistency to combat incont inence Mostly Met Based on the most recent progress report, patient was progre ssing as expected toward functional goals based on home exercise prog rosendo compliance and documented subjective information on progress. Reason for Discontinuation of Care: Patient has not returned to therapy or scheduled additional follow-up appointments. Charmaine Montero, PT progress on 2019-02 PROGRESS HNO ID: [id number] Normal 02-23-2019 [facility] Author: Samantha Alfonso [place] ([id number]) Service: ? Author Type: ? Type: Progress Notes Filed: 02/23/2019 11:28 AM Note Text: Radiology Service Progress Note PATIENT NAME: Fannie Lucas DATE OF SERVICE: February 23, 2019 TIME: 11:28 AM PATIENT IDENTITY VERIFICATION COMPLETED USING TWO (2) METHOD S: Name and Date of confirmed by patient verbally. PATIENT GENDER DATA: Female. status: : No status: NO. PATIENT RELEVANT IMPLANT DATA REVIEWED: Not Applicable RADIOLOGY DEPARTMENT: Mammography PERIPHERAL IV DATA: Not applicable SIGNED BY: Samantha Alfonso February 23, 2019 11:28 AM PROGRESS HNO ID: [id number] Normal 02-23-2019 [facility] Author: Maximo Cesar Min ([id number]) Service: ? Author Type: Physician Type: Progress Notes Filed: 02/23/2019 11:23 AM Note Text: Fannie Lucas is a 73 year old female who presents for pr oblem visit for f/u pessary. . HPI: Pessary is comfortable, and she did not have any proble ms with it well and is in. It stayed in place. No difficulties with uri nation. Did seem to help some with bowel movements. Pelvic floor therapy was helping this as well. She is preparing to leave for [place] until Ma y. She was able to remove the pessary without difficulty but had some t rouble with cnmt strength lacing it back in. 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 - CERVICAL SPONDYLOSIS 02/26/2005 - Diarrhea - Diverticulosis of colon 01/06/2009 - Esophageal reflux - Hemorrhage of rectum and anus 12/02/2017 - HEMORRHOIDS NOS 11/30/2008 - HYPERLIPIDEMIA NEC/NOS 03/18/2005 - IBS (irritable bowel syndrome) 01/26/2013 - Incontinence of feces 11/30/2008 - Osteopenia - Palpitations 01/13/2012 - Perforation of large intestine (HCC) 12/03/2017 - Spondylosis, 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 - TIA (transient ischemic attack) 06/17/2017 [place], [place] PAST SURGICAL HISTORY Procedure Laterality Date - CHOLECYSTECTOMY HX 03/2018 - COLONOSCOP W/ OR W/O BRSH SPEC 10/20/03 Colonoscopy - COLONOSCOP W/ OR W/O BRSH SPEC 01/06/09 Extensive diverticulosis/hemorrhoids - COLONOSCOP W/ OR W/O BRSH SPEC 07/24/2012 Colonoscopy in [place] - COLONOSCOPY DIAG CNTRL BLEED 12/02/2017 laser of cecal AVM - DRAIN ABDOMINAL ABSCESS, PERCUTANEOUS 12/15/2017 perianastomotic abscess - EGD 12/02/2017 - EGD W/O OR W/BRUSH/WASH 07/03/2012 EGD in [place] - HEMORRHOIDECTOMY,INT/EXT,COMPLX 10-26-2009 - LAMINECTOMY,FACETECTOMY,LUMBAR 07/08/2011 [place], [place] - LAP, SURG MOBIL SPLENIC [place] DUR PTL COLECTOMY 02-02-09 - LAPAROSCOPIC HEMICOLECTOMY 02/02/2009 - LAPAROSCOPIC HEMICOLECTOMY Right 12/03/2017 - PAST SURGICAL HISTORY OF 1963 ovarian cyst removed - PAST SURGICAL HISTORY OF 2001 BREAST BIOPSY--BENIGN - PAST SURGICAL HISTORY OF 03/28/2018 Gallbladder removed - SIGMOIDOS , CONTROL BLEED 03/22/09 Granulation tissue at anastomosis - SIGMOIDOS FLEX DIAG W/BX SING/MUL 02/28/11 - TOTAL ABDOM HYSTERECTOMY Hysterectomy, TERI, BSO FAMILY HISTORY Problem Relation Age of Onset - Breast Cancer Mother dec. age 88 - Blood Disease Father PE, post MVA, dec. 53yo - Breast Cancer Sister - other (Other) Sister complications from falling - Breast Cancer Sister - None Sister - other (multiple myeloma) Brother - Alzheimer's Disease Sister Social History Tobacco Use - Smoking status: Never Smoker - Smokeless tobacco: Never Used Substance Use Topics - Alcohol use: No - Drug use: No Current Outpatient Medications: atorvastatin (LIPITOR) 40 mg tablet TAKE 1 TABLET EVERY DAY AT BEDTIME FOR CHOLESTEROL atenolol (TENORMIN) 25 mg tablet Take 1 tablet by mouth once daily. polyethylene glycol 3350 (MIRALAX ORAL) Take 0.5 teaspoonsfu l by mouth once daily. wheat dextrin (BENEFIBER CLEAR SF, DEXTRIN, ORAL) Take 0.5 t easpoonsful by mouth once daily. famotidine (PEPCID ORAL) Take by mouth. VITAMIN E 200 UNIT CAP Take one(1) tablet daily. Henry-3 Fatty Acids (FISH OIL) ORAL Cap Take one(1) capsule daily. MULTIVITAMIN TAB Take one(1) tablet daily. CALCIUM + D 600 MG-200 UNIT TAB Take one(1) tablet daily. ASPIRIN 81 MG TAB Take one (1) tablet daily . No current facility-administered medications for this visit. Allergies As of Date: 02/23/2019 Allergen Noted Reaction BACTRIM [SULFAMETHOXAZOLE-TRIMETH*02/25/2005 GI Upset CLINDAMYCIN HCL 09/25/2010 GI Upset FLAGYL [METRONIDAZOLE HCL] 10/19/2009 GI Upset GADOLINIUM-CONTAINING CONTRAST ME*10/28/2017 Hives Fully Assessed 02/23/2019 REVIEW OF SYSTEMS no new c/o EXAM: BP 122/64 Wt 143 lb (64.9kg) GENERAL: pleasant, female in no apparent distress CLOTHER IN: pessary removed, cleaned. Vagina atrophic, intact and n o erosiouns. Pessary replaced, size 2 ring ASSESSMENT AND PLAN: pessary maintenance, rectocele and difficulty w/ BMs, doing well w/ pessary f/u prn if needed for pessary cleaning. She is comfortable w / plan Maximo Cesar MD [facility] screening on 09-03-05 [facility] SCREENING * * *Final Report* * * Normal [facility] DATE OF EXAM: Feb 23 2019 10:40AM Min ([id number]) WOW [id number] - [facility] SCREENING / PROCEDURE REASON: Encounter for screening mammogram for vivi gnant neoplasm of breast * * * * Physician Interpretation * * * * RESULT: #[id number] - [facility] SCREENING BILATERAL DIGITAL SCREENING MAMMOGRAM WITH CAD: 02/23/2019 HISTORY: Screening Mammogram - patient reports NO breast sym ptoms /priors available for comparison. RESULT: TECHNIQUE: The study was acquired using full field digital t echnology and interpreted from soft copy. Current study was also evaluated with a Computer Aided Detec tion (CAD). Comparison is made to exams dated: 02/18/2018 mammogram, mammogram, [place] [facility] [place] are scattered fibroglandular elements in both breasts. No significant masses, calcifications, or other findings are seen in either breast. There has been no significant interval change. IMPRESSION: NEGATIVE There is no mammographic evidence of malignancy. A 1 year sc reening mammogram is recommended. Kely luz/margot:02/23/2019 14:06:47 Mineral Engineer(s): Angeli Nieto, RT(R)(M), [facility] letter sent: Normal over 40 Mammogram BI-RADS: 1 Negative Multiple national specialty organizations have released simone st cancer screening guidelines for women at average risk for developin g breast cancer - guidelines that are based on both evidence and opin ion, yet differ on when to start and how often to screen for breast c ancer. With representation from Breast Imaging, Internal Medicine, Women 's Health, Family Medicine, and Medical/Surgical Oncology, the [facility] has carefully reviewed the data and reached the following consen chino: 1) All women should engage in shared decision-making with eir providers to decide when to start and how often to screen; 2) All women should have the opportunity to start screening mammography at age 40; 3) For women ages 45-55, we recommend annual screening mammo grams; 4) For women ages 55 and over, we support both the transitio n from an annual to a biennial interval if this aligns more with patie nt's values and preferences, or continuation with annual screening; 5) All women should discuss with their providers when to sto p screening mammograms. Deblocker: Margot Transcribe Date/Time: Feb 23 2019 10:24A Dictated by: KELY SALGADO MD This examination was interpreted and the report reviewed and electronically signed by: KELY SALGADO MD on Feb 23 2019 2:06PM EST [id number] cnov on 2019-02-23 CNOV Office Visit (WOOB) Normal 02-23-2019 [place] [facility] FANNIE LUCAS ([id number]) 1945 [address] [place] Date Time Provider Department ([id number]) 02/23/19 10:50 AM MAXIMO CESAR During your visit today, we recorded the following informati on about you: Blood pressure Weight 122/64 64.9 kg Maximo Cesar MD 02/23/2019 11:23 AM Signed Fannierosana Lucas is a 73 year old female who presents for problem visit for f/u pessary. . HPI: Pessary is comfortable, and she did not have any problems with it well and is in. It stayed in place. No difficulties with urination. Did seem to help some with bowel movements. Pelvic floor therapy was helping this as well. She is preparing to leave for [place] until August. She was able to remove the pessary without difficulty but had some trouble with g rip strength lacing it back in. 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 - CERVICAL SPONDYLOSIS 02/26/2005 - Diarrhea - Diverticulosis of colon 01/06/2009 - Esophageal reflux - Hemorrhage of rectum and anus 12/02/2017 - HEMORRHOIDS NOS 11/30/2008 - HYPERLIPIDEMIA NEC/NOS 03/18/2005 - IBS (irritable bowel syndrome) 01/26/2013 - Incontinence of feces 11/30/2008 - Osteopenia - Palpitations 01/13/2012 - Perforation of large intestine (HCC) 12/03/2017 - Spondylosis, 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 - TIA (transient ischemic attack) 06/17/2017 [place], [place] PAST SURGICAL HISTORY Procedure Laterality Date - CHOLECYSTECTOMY HX 03/2018 - COLONOSCOP W/ OR W/O BRSH SPEC 10/20/03 Colonoscopy - COLONOSCOP W/ OR W/O BRSH SPEC 01/06/09 Extensive diverticulosis/hemorrhoids - COLONOSCOP W/ OR W/O BRSH SPEC 07/24/2012 Colonoscopy in [place] - COLONOSCOPY DIAG CNTRL BLEED 12/02/2017 laser of cecal AVM - DRAIN ABDOMINAL ABSCESS, PERCUTANEOUS 12/15/2017 perianastomotic abscess - EGD 12/02/2017 - EGD W/O OR W/BRUSH/WASH 07/03/2012 EGD in [place] - HEMORRHOIDECTOMY,INT/EXT,COMPLX 10-26-2009 - LAMINECTOMY,FACETECTOMY,LUMBAR 07/08/2011 [place], [place] - LAP, SURG MOBIL SPLENIC [place] DUR PTL COLECTOMY 02-02-09 - LAPAROSCOPIC HEMICOLECTOMY 02/02/2009 - LAPAROSCOPIC HEMICOLECTOMY Right 12/03/2017 - PAST SURGICAL HISTORY OF 1964 ovarian cyst removed - PAST SURGICAL HISTORY OF 2001 BREAST BIOPSY--BENIGN - PAST SURGICAL HISTORY OF 03/28/2018 Gallbladder removed - SIGMOIDOS , CONTROL BLEED 03/22/09 Granulation tissue at anastomosis - SIGMOIDOS FLEX DIAG W/BX SING/MUL 02/28/11 - TOTAL ABDOM HYSTERECTOMY Hysterectomy, TERI, BSO FAMILY HISTORY Problem Relation Age of Onset - Breast Cancer Mother dec. age 88 - Blood Disease Father PE, post MVA, dec. 53yo - Breast Cancer Sister - other (Other) Sister complications from falling - Breast Cancer Sister - None Sister - other (multiple myeloma) Brother - Alzheimer's Disease Sister Social History Tobacco Use - Smoking status: Never Smoker - Smokeless tobacco: Never Used Substance Use Topics - Alcohol use: No - Drug use: No Current Outpatient Medications: atorvastatin (LIPITOR) 40 mg tablet TAKE 1 TABLET EVERY DAY AT BEDTIME FOR CHOLESTEROL atenolol (TENORMIN) 25 mg tablet Take 1 tablet by mouth once daily. polyethylene glycol 3350 (MIRALAX ORAL) Take 0.5 teaspoons ful by mouth once daily. wheat dextrin (BENEFIBER CLEAR SF, DEXTRIN, ORAL) Take 0.5 t easpoonsful by mouth once daily. famotidine (PEPCID ORAL) Take by mouth. VITAMIN E 200 UNIT CAP Take one(1) tablet daily. Henry-3 Fatty Acids (FISH OIL) ORAL Cap Take one(1) capsule daily. MULTIVITAMIN TAB Take one(1) tablet daily. CALCIUM + D 600 MG-200 UNIT TAB Take one(1) tablet daily. ASPIRIN 81 MG TAB Take one (1) tablet daily . No current facility-administered medications for this visit. Allergies As of Date: 02/23/2019 Allergen Noted Reaction BACTRIM [SULFAMETHOXAZOLE-TRIMETH*02/25/2005 GI Upset CLINDAMYCIN HCL 09/25/2010 GI Upset FLAGYL [METRONIDAZOLE HCL] 10/19/2009 GI Upset GADOLINIUM-CONTAINING CONTRAST ME*10/28/2017 Hives Fully Assessed 02/23/2019 REVIEW OF SYSTEMS no new c/o EXAM: BP 122/64 Wt 143 lb (64.9kg) GENERAL: pleasant, female in no apparent distress CLOTHER IN: pessary removed, cleaned. Vagina atrophic, intact and n o erosiouns. Pessary replaced, size 2 ring ASSESSMENT AND PLAN: pessary maintenance, rectocele and difficulty w/ BMs, doin g well w/ pessary f/u prn if needed for pessary cleaning. She is comfortable w / plan Maximo Cesar MD Referring Provider: MAXIMO CESAR [[id number]] Allergies As of Date: 02/23/2019 Noted Allergy Reaction BACTRIM (SULFAMETHOXAZOLE-TRIMETH*02/25/2005 8 - GI Upset Comments: nausea CLINDAMYCIN HCL 09/25/2010 8 - GI Upset FLAGYL (METRONIDAZOLE HCL) 10/19/2009 8 - GI Upset GADOLINIUM-CONTAINING CONTRAST ME*10/28/2017 4 - Hives Comments: Gadolinium/Gadavist Date Reviewed: 02/23/2019 Reviewed by: Carolyn Nguyen Ma - Fully Assessed Reason for Visit: Pessary [[id number]] Primary Visit Diagnosis:Rectocele [N81.6] Other Visit Diagnoses:Difficult bowel movements [K59.00] Pessary maintenance [Z46.89] Prescriptions as of 02/23/2019 Sig: ATORVASTATIN 40 MG TABLET TAKE 1 TABLET EVERY DAY AT BE* ATENOLOL 25 MG TABLET Take 1 tablet by mouth once d* MIRALAX ORAL Take 0.5 teaspoonsful by mout* BENEFIBER CLEAR SF (DEXTRIN) * Take 0.5 teaspoonsful by mout * PEPCID ORAL Take by mouth. * VITAMIN E 200 UNIT CAPSULE Take one(1) tablet daily. * FISH OIL 500 MG CAPSULE Take one(1) capsule daily. * MULTIVITAMIN TABLET Take one(1) tablet daily. * CALCIUM + D 600 MG (1,500 MG)* Take one(1) tablet daily. * ASPIRIN 81 MG TABLET Take one (1) tablet daily . Problem List As Of Date 02/23/2019 Noted Resolved Cervical spondylosis without myelopathy [M47.81*INVALID FOR* 10/04/2013 Hyperlipidemia [E78.5] INVALID FOR* More... FAMILY HX BREAST MALIG [Z80.3] INVALID FOR* Unspecified Chest Pain [R07.9] INVALID FOR*12/07/2009 Other Malaise and Fatigue [R53.81, R53.83] INVALID FOR*12/07 Anxiety state, unspecified [F41.1] INVALID FOR*01/13/2012 Benign neoplasm of colon [D12.6] INVALID FOR* Incontinence of Feces [787.6] INVALID FOR*12/07/2009 Unspecified hemorrhoids without mention of comp*INVALID FOR* 10/04/2013 Allergic rhinitis [J30.9] INVALID FOR* Diverticulosis of colon [K57.30] INVALID FOR*12/31/2016 More... Rectal bleeding [K62.5] INVALID FOR*01/13/2012 Spondylosis, 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] INVALID FOR*10/04/2013 More... Enthesopathy of hip region [M76.899] INVALID FOR*01/13/2012 Diarrhea [R19.7] 02/08/2014 Anal fissure [K60.2] INVALID FOR*02/08/2014 Palpitations [R00.2] INVALID FOR* More... IBS (irritable bowel syndrome) [K58.9] INVALID FOR* Rectocele [N81.6] INVALID FOR*10/04/2013 Osteopenia [M85.80] INVALID FOR* Carotid disease, bilateral (HCC) [I73.9] INVALID FOR* Benign meningioma of brain (HCC) [D32.0] INVALID FOR* Muscle weakness [M62.81] INVALID FOR* Encounter Status:Closed by MAXIMO CESAR MD on 02/23/19 cnco on 2019-02-23 CNCO HNO ID: [id number] Normal 02-23-2019 [facility] Author: Mammography Coordinator ([id number]) Service: ? Author Type: Physician Type: Letter Filed: 02/24/2019 11:33 PM Note Text: February 23, 2019 PID: [id number] Fannie ArielleTiffanie Lucas [address] [place] [address] Dear Ms. Lucas, We are pleased to inform you that the results of your recent breast imaging exam on 02/23/2019 are normal. Early detection of cancer is very important. We also underst and recommendations regarding breast cancer screening are contro versial. Please discuss with your primary care provider which strateg y is best for you and whether a mammogram is right for you. Your imaging studies and report will be kept on file at [facility] as part of your permanent medical record and are available f or your continuing care. Thank you for allowing us to help in meeting your health car e needs. Sincerely, Dr. Salgado Interpreting Radiologist [facility] (Normal over 40) Vital Signs Vital Sign Description Value / Unit Date Location The following section is limited to 5 en tries per type and includes entries from the following time range: [id number] - 2. Body Temperature 96.8 [degF] 01-21-2020 [place] [facility] ([id number]) Body weight 62.14 kg 01-21-2020 [facility] ([id number]) Body weight 61.69 kg 12-15-2019 [facility] ([id number]) BP Diastolic 80 mm[Hg] 01-21-2020 [facility] ([id number]) BP Diastolic 70 mm[Hg] 12-15-2019 [facility] ([id number]) BP Systolic 130 mm[Hg] 01-21-2020 [facility] ([id number]) BP Systolic 128 mm[Hg] 12-15-2019 [facility] ([id number]) Pulse (Heart Rate) 80 /min 01-21-2020 [place] [facility] ([id number]) Pulse Oximetry 98 % 01-21-2020 [facility] ([id number]) Respiratory Rate 16 /min 01-21-2020 [place] [facility] ([id number]) Encounters Date Type Reason Provider Location 01-24-2020 Follow-up encounter Patient encounter Maximo Green jensen OB/Gynecology status Comment: RE: Visit Follow Up Question 01-24-2020 - Patient encounter Maximo Cesar [facility] 01-24-2020 procedure 01-21-2020 - Patient encounter Hip pain Xr [facility] Héctor Dominique Radi ology 01-21-2020 procedure (Sales Planning Coordinator) Older Catina (Sales Planning Coordinator) Older Comment: Radiology XR Hyperlipidemia, unspecified hyperlipidemia type (Primary Dx); Acute hip pain, right; Bilateral carotid artery cristiano nosis; Palpitations; Irritable bowel syndrome wit h diarrhea; Need for vaccination 12-15-2019 - Patient encounter Herniation of Maximo Monreal OB/Gyneco logy 12-15-2019 procedure rectum into vagina Osvaldo Comment: Rectocele (Primary Dx); Dyssynergic defecation; Incomplete defecation 01-31-2020 - 01-31-2020 Telephone encounter Catina (Gill) Older Internal Medicine Héctor Comment: Results 01-24-2020 - 01-24-2020 Telephone encounter Gavin see Internal Medicine Héctor Comment: Results Procedures Procedure Name Date Provider Location Radex hip unilateral with 01-21-2020 Catina (Sales Planning Coordinator) Older [facility] pelvis 2-3 views ([id number]) INFLUENZA SEASONAL 01-21-2020 Catina (Sales Planning Coordinator) Older [place] [facility] QUADRIVALENT HIGH DOSE AGE (4419 5) 65+ Colonoscopy 12-02-2017 - [facility] 12-02-2017 ([id number]) Plan of Treatment Plan Description Date Location ADVANCE DIRECTIVE ADVANCE DIRECTIVE 01-20-2025 - [facility] inic DISCUSSION DISCUSSION 01-20-2025 ([id number]) LIPID SCREEN LIPID SCREEN 05-28-2023 - [facility] 05-28-2023 ([id number]) COLONOSCOPY COLONOSCOPY 12-02-2022 - [facility] 12-02-2022 ([id number]) HEPATITIS C SCREENING HEPATITIS C SCREENING 01-20-2021 - [facility] 01-20-2021 ([id number]) Comment: Postponed from 09/05/1961 (D eclined at this time) SHINGRIX VACCINE (2 SHINGRIX VACCINE (2 01-20-2021 - [facility]) of 3) 01-20-2021 ([id number]) Comment: Postponed from 01/11/2011 (D eclined at this time) DTAP,TDAP,TD (1 - Tdap) DTAP,TDAP,TD (1 - Tdap) 09-18-2020 - [facility] 09-18-2020 ([id number]) Comment: Postponed from 09/05/1962 (P ostponed To Appropriate Date) DIABETES SCREEN DIABETES SCREEN 02-11-2020 - [facility] 02-11-2020 ([id number]) INFLUENZA (#1) INFLUENZA (#1) 2019 [facility] ([id number]) SHINGRIX VACCINE (2 SHINGRIX VACCINE (2 of 3) 01-11-2011 [facility]) ([id number]) ADVANCE DIRECTIVE ADVANCE DIRECTIVE 09-05-2008 [facility] inic DISCUSSION DISCUSSION ([id number]) DTAP,TDAP,TD (1 - DTAP,TDAP,TD (1 - Tdap) 09-05-1962 [facility] Tdap) ([id number]) HEPATITIS C SCREENING HEPATITIS C SCREENING 09[birth year]05-1961 [facility] ([id number]) CMP (CMP) (FOR REMOTE CMP (CMP) (FOR REMOTE [facility] 01-20-2021 [facility] USE) USE) Lab Routine ([id number]) Hyperlipidemia, unspecified hyperlipidemia type 1 Occurrences starting 01/21/2020 until 01/20/2021 Comment: 1 Occurrences starting 01/20 until 01/20/2021 LIPID PANEL BASIC LIPID PANEL BASIC Lab Routine 01-20-2021 [facility] ([id number]) Hyperlipidemia, unspecified hyperlipidemia type 1 Occurrences starting 01/21/2020 until 01/20/2021 Comment: 1 Occurrences starting 01/20 until 01/20/2021 ARLENE SCREENING ARLENE SCREENING Radiology Routine 02-22-2021 [facility] ([id number]) Encounter for screening mammogram for malignant neoplasm of breast 1 Occurrences starting 01/24/2020 until 02/22/2021 Comment: 1 Occurrences starting 01/23 until 02/22/2021 US CAROTID ARTERIES JEANIE US CAROTID ARTERIES JEANIE 01-20-2021 [facility] ([id number]) VAS LAB VAS LAB Vascular Lab Routine Bilateral carotid artery stenosis 1 Occurrences starting 01/21/2020 until 01/20/2021 Comment: 1 Occurrences starting 01/20 until 01/20/2021 no information [facility] ([id number]) Immunizations Vaccine Notes Status Date Location Influenza Vaccine, influenza virus (completed) 01-26-2013 - [facility]-Non Spec vaccine, unspecified 01-26-2013 (4419 5) formulation Influenza Vaccine, influenza virus (completed) 01-13-2012 - [facility]Non Spec vaccine, unspecified 01-13-2012 (4419 5) formulation Influenza Vaccine, influenza virus (completed) 01-23-2011 - [facility]-Non Spec vaccine, unspecified 01-23-2011 (4419 5) formulation Influenza Vaccine, influenza virus (completed) 01-31-2010 - [facility]-Non Spec vaccine, unspecified 01-31-2010 (4419 5) formulation Influenza Vaccine, influenza virus (completed) 02-02-2009 - [facility], unspecified 02-02-2009 (4419 5) formulation Influenza Seasonal - influenza, high dose (completed) 01-21-2019 - [facility] High Dose - Age 65+ seasonal, 01-21-2019 (13008) preservative-free Influenza Seasonal - influenza, high dose (completed) 01-14-2018 - [facility] High Dose - Age 65+ seasonal, 01-14-2018 (50501) preservative-free Influenza Seasonal - influenza, high dose (completed) 12-31-2016 - [facility] High Dose - Age 65+ seasonal, 12-31-2016 (39412) preservative-free Influenza Seasonal - influenza, high dose (completed) 01-31-2016 - [facility] High Dose - Age 65+ seasonal, 01-31-2016 (96569) preservative-free Influenza Seasonal - influenza, high dose (completed) 02-08-2015 - [facility] High Dose - Age 65+ seasonal, 02-08-2015 (96774) preservative-free influenza, high-dose, influenza, high-dose, (completed) 01-21-2020 - [facility] quadrivalent vaccine quadrivalent vaccine 01-21-2020 (47734) (FLUZONE HIGH DOSE (FLUZONE HIGH DOSE QUADRIVALENT) QUADRIVALENT) Influenza Seasonal influenza, seasonal, (completed) 02-08-2014 - [facility] Age 3+ injectable 02-08-2014 (93701) Pneumococcal-13 Vac pneumococcal conjugate (completed) 03-06-2015 - [facility] Conjugate vaccine, 13 valent 03-06-2015 (77440) Pneumovax pneumococcal (completed) 11-30-2008 - [facility] polysaccharide vaccine, 11-30-2008 (441 95) 23 valent TD Adult tetanus and diphtheria (completed) 09-18-2010 - [facility] toxoids, adsorbed, 09-18-2010 (30177) preservative free, for adult use (2 Lf of tetanus toxoid and 2 Lf of diphtheria toxoid) Zostavax zoster vaccine, live (completed) 11-16-2010 - [facility] 11-16-2010 (42737) Payers Payer Name Policy Number Location [employer] [id number] [facility] ([id number] 195) The following information is from the original human readable contentNo Payer Records FoundNo Payer Records FoundNo Payer Records FoundNo Payer Records FoundNo Payer Records FoundNo Payer Records FoundNo Payer Records Found Social History Type Social History Date Location Description Tobacco smoking status Never smoker 12-15-2019 - [facility] NHIS 01-21-2020 ([id number]) Tobacco use and Never used 12-15-2019 - [facility] exposure 01-21-2020 (70472) Alcohol intake Current non-drinker of 12-15-[address] [facility] alcohol (finding) 01-21-2020 (47889) Sex Assigned At Not on file [facility] (59649) Exposure to SARS-CoV-2 Not sure [facility] (event) (06672) The following information is from the original human readable contentNo Social History Records FoundNo Social History Records FoundNo Social History Records FoundNo Social History Records FoundNo Social History Records FoundNo Social History Records FoundNo Social History Records Found Summary Purpose Family History No Family History Records FoundNo Family History Records FoundNo Family History Records FoundNo Family History Records Found Advance Directives No Advanced Directives Records FoundNo Advanced Directives Records FoundNo Advanced Directives Records FoundNo Advanced Directives Records Found History of Past Illness Problem Noted Date Resolved Date Muscle weakness 11/25/2018 05/14/2019 Carotid disease, bilateral 01/03/2016 05/14/2019 Rectocele 03/02/2013 10/04/2013 Anal fissure 03/07/2011 02/08/2014 Enthesopathy of hip region 02/04/2011 01/13/2012 Spondylosis, 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 Xray 11/2009 Rectal bleeding 03/09/2009 01/13/2012 Diverticulosis of colon 01/06/2009 12/31/2016 Overview: colonoscopy 07/2012 Last Assessment & Plan: colonoscopy 07/2012 throughout with diverticula. Incontinence of feces 11/30/2008 12/07/2009 Unspecified hemorrhoids without mention of complication 11/1910/04/2013 Anxiety state, unspecified 01/15/2007 01/13/2012 Chest pain, unspecified 12/03/2005 12/07/2009 Other malaise and fatigue 12/03/2005 12/07/2009 Cervical spondylosis without myelopathy 02/26/2005 10/04/2013 Diarrhea 02/08/2014 Problem Noted Date Resolved Date Muscle weakness 11/25/2018 05/14/2019 Carotid disease, bilateral 01/03/2016 05/14/2019 Rectocele 03/02/2013 10/04/2013 Palpitations 01/13/2012 01/21/2020 Anal fissure 03/07/2011 02/08/2014 Enthesopathy of hip region 02/04/2011 01/13/2012 Spondylosis, 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 Xray 11/2009 Rectal bleeding 03/09/2009 01/13/2012 Diverticulosis of colon 01/06/2009 12/31/2016 Overview: colonoscopy 07/2012 Last Assessment & Plan: colonoscopy 07/2012 throughout with diverticula. Incontinence of feces 11/30/2008 12/07/2009 Unspecified hemorrhoids without mention of complication 11/1910/04/2013 Anxiety state, unspecified 01/15/2007 01/13/2012 Chest pain, unspecified 12/03/2005 12/07/2009 Other malaise and fatigue 12/03/2005 12/07/2009 Cervical spondylosis without myelopathy 02/26/2005 10/04/2013 Diarrhea 02/08/2014 Problem Noted Date Resolved Date Muscle weakness 11/25/2018 05/14/2019 Carotid disease, bilateral 01/03/2016 05/14/2019 Rectocele 03/02/2013 10/04/2013 Palpitations 01/13/2012 01/21/2020 Anal fissure 03/07/2011 02/08/2014 Enthesopathy of hip region 02/04/2011 01/13/2012 Spondylosis, 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 Xray 11/2009 Rectal bleeding 03/09/2009 01/13/2012 Diverticulosis of colon 01/06/2009 12/31/2016 Overview: colonoscopy 07/2012 Last Assessment & Plan: colonoscopy 07/2012 throughout with diverticula. Incontinence of feces 11/30/2008 12/07/2009 Unspecified hemorrhoids without mention of complication 11/1910/04/2013 Anxiety state, unspecified 01/15/2007 01/13/2012 Chest pain, unspecified 12/03/2005 12/07/2009 Other malaise and fatigue 12/03/2005 12/07/2009 Cervical spondylosis without myelopathy 02/26/2005 10/04/2013 Diarrhea 02/08/2014 Problem Noted Date Resolved Date Muscle weakness 11/25/2018 05/14/2019 Carotid disease, bilateral 01/03/2016 05/14/2019 Rectocele 03/02/2013 10/04/2013 Palpitations 01/13/2012 01/21/2020 Anal fissure 03/07/2011 02/08/2014 Enthesopathy of hip region 02/04/2011 01/13/2012 Spondylosis, 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 Xray 11/2009 Rectal bleeding 03/09/2009 01/13/2012 Diverticulosis of colon 01/06/2009 12/31/2016 Overview: colonoscopy 07/2012 Last Assessment & Plan: colonoscopy 07/2012 throughout with diverticula. Incontinence of feces 11/30/2008 12/07/2009 Unspecified hemorrhoids without mention of complication 11/1910/04/2013 Anxiety state, unspecified 01/15/2007 01/13/2012 Chest pain, unspecified 12/03/2005 12/07/2009 Other malaise and fatigue 12/03/2005 12/07/2009 Cervical spondylosis without myelopathy 02/26/2005 10/04/2013 Diarrhea 02/08/2014 Problem Noted Date Resolved Date Muscle weakness 11/25/2018 05/14/2019 Carotid disease, bilateral 01/03/2016 05/14/2019 Rectocele 03/02/2013 10/04/2013 Palpitations 01/13/2012 01/21/2020 Anal fissure 03/07/2011 02/08/2014 Enthesopathy of hip region 02/04/2011 01/13/2012 Spondylosis, 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 Xray 11/2009 Rectal bleeding 03/09/2009 01/13/2012 Diverticulosis of colon 01/06/2009 12/31/2016 Overview: colonoscopy 07/2012 Last Assessment & Plan: colonoscopy 07/2012 throughout with diverticula. Incontinence of feces 11/30/2008 12/07/2009 Unspecified hemorrhoids without mention of complication 11/1910/04/2013 Anxiety state, unspecified 01/15/2007 01/13/2012 Chest pain, unspecified 12/03/2005 12/07/2009 Other malaise and fatigue 12/03/2005 12/07/2009 Cervical spondylosis without myelopathy 02/26/2005 10/04/2013 Diarrhea 02/08/2014 History of Present Illness OsvaldoAnaliaMaximo L - 12/15/2019 2:01 PM EDT Fannie Lucas is a 74 year old female who presents for problem visit for . HPI: 74-year-old female who tried a pessary last year for some rectocele symptoms and defecation difficulties. She states she wore the pessary about every other month while she was in [place] last entering spring. She's had it out for the last couple months. She notes that she's had difficulty expelling bowel movements and wearing the pessary did not make a difference one way or the other. She does sometimes splint on her rectum to help defecate. She takes a small amount of fiber and a small amount of MiraLAX occasionally to help keep stools soft. In general she notes that her stools are smooth andsoft and sometimes flat. She feels that they're sometimes trapped. She sometimes feels some urgency at her anus and notes she'll have some smearing or passage of small amount of stool. This is becomingenough of an issue that it's affecting her quality of life and her ability to go out on daily activities. Eyes a blood in her stool or dark tarry stool. She actually had some pain a couple months ago an d had a CAT scan and they told her maybe she had diverticulitis. She has a history of colon perforations from colonoscopies and is not to get future colonoscopies. She denies any changes in diet. She definitely doesn't have hard stools and she generally doesn't have loose stools. She admits she quit doing her pelvic floor physical therapy after last December. According to their last note, she could continue to benefit from future appointments but had made some improvements. Patient is wondering about a rectocele repair. She denies anything protruding from her vagina. She had a hysterectomy in her 40s for benign condition. PAST MEDICAL HISTORY Diagnosis Date ? ALLERGIC RHINITIS NOS 11/30/2008 ? ANXIETY STATE NOS 01/15/2007 ? Benign meningioma of brain (HCC) 10/28/2017 ? Benign neoplasm of colon 11/30/2008 ? Carotid disease, bilateral (HCC) 01/03/2016 ? 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 CERVICAL SPONDYLOSIS 02/26/2005 ? Diarrhea ? Diverticulosis of colon 01/06/2009 ? Esophageal reflux ? Hemorrhage of rectum and anus 12/02/2017 ? HEMORRHOIDS NOS 11/30/2008 ? HYPERLIPIDEMIA NEC/NOS 03/18/2005 ? IBS (irritable bowel syndrome) 01/26/2013 ? Incontinence of feces 11/30/2008 ? Osteopenia ? Palpitations 01/13/2012 ? Perforation of large intestine (HCC) 12/03/2017 ? 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 TIA (transient ischemic attack) 06/17/2017 [place], [place] PAST SURGICAL HISTORY Procedure Laterality Date ? CHOLECYSTECTOMY HX 03/2018 ? COLONOSCOP W/ OR W/O BRSH SPEC 10/20/03 Colonoscopy ? COLONOSCOP W/ OR W/O BRSH SPEC 01/06/09 Extensive diverticulosis/hemorrhoids ? COLONOSCOP W/ OR W/O BRSH SPEC 07/24/2012 Colonoscopy in [place] ? COLONOSCOPY DIAG CNTRL BLEED 12/02/2017 laser of cecal AVM ? DRAIN ABDOMINAL ABSCESS, PERCUTANEOUS 12/15/2017 perianastomotic abscess ? EGD 12/02/2017 ? EGD W/O OR W/BRUSH/WASH 07/03/2012 EGD in [place] ? HEMORRHOIDECTOMY,INT/EXT,COMPLX 10-26-2009 ? LAMINECTOMY,FACETECTOMY,LUMBAR 07/08/2011 [place] ? LAP, SURG MOBIL SPLENIC [place] DUR PTL COLECTOMY 02-02-09 ? LAPAROSCOPIC HEMICOLECTOMY 02/02/2009 ? LAPAROSCOPIC HEMICOLECTOMY Right 12/03/2017 ? PAST SURGICAL HISTORY OF 1963 ovarian cyst removed ? PAST SURGICAL HISTORY OF 2001 BREAST BIOPSY--BENIGN ? PAST SURGICAL HISTORY OF 03/28/2018 Gallbladder removed ? SIGMOIDOS , CONTROL BLEED 03/22/09 Granulation tissue at anastomosis ? SIGMOIDOS FLEX DIAG W/BX SING/MUL 02/28/11 ? TOTAL ABDOM HYSTERECTOMY Hysterectomy, TERI, BSO FAMILY HISTORY Problem Relation Age of Onset ? Breast Cancer Mother dec. age 88 ? Blood Disease Father PE, post MVA, dec. 53yo ? Breast Cancer Sister ? other (Other) Sister complications from falling ? Breast Cancer Sister ? None Sister ? other (multiple myeloma) Brother ? Alzheimer's Disease Sister Social History Tobacco Use ? Smoking status: Never Smoker ? Smokeless tobacco: Never Used Substance Use Topics ? Alcohol use: No ? Drug use: No Current Outpatient Medications Medication Sig ? atorvastatin (LIPITOR) 40 mg tablet TAKE 1 TABLET EVERY DAY AT BEDTIME FOR CHOLESTEROL ? atenolol (TENORMIN) 25 mg tablet Take 1 tablet by mouth once daily. ? polyethylene glycol 3350 (MIRALAX ORAL) Take 0.5 teaspoonsful by mouth once daily. ? wheat dextrin (BENEFIBER CLEAR SF, DEXTRIN, ORAL) Take 0.5 teaspoonsful by mouth once daily. ? VITAMIN E 200 UNIT CAP Take one(1) tablet daily. ? Henry-3 Fatty Acids (FISH OIL) ORAL Cap Take one(1) capsule daily. ? MULTIVITAMIN TAB Take one(1) tablet daily. ? CALCIUM + D 600 MG-200 UNIT TAB Take one(1) tablet daily. ? ASPIRIN 81 MG TAB Take one (1) tablet daily . ? famotidine (PEPCID ORAL) Take by mouth. No current facility-administered medications for this visit. Allergies As of Date: 12/15/2019 Allergen Noted Reaction BACTRIM [SULFAMETHOXAZOLE-TRIMETH*02/25/2005 GI Upset CLINDAMYCIN HCL 09/25/2010 GI Upset FLAGYL [METRONIDAZOLE HCL] 10/19/2009 GI Upset GADOLINIUM-CONTAINING CONTRAST ME*10/28/2017 Hives Fully Assessed 12/15/2019 REVIEW OF SYSTEMS Abdomen: She denies any leaking of flatulence, hematochezia or melena Bladder: No dysuria, gross hematuria, urinary frequency, urinary urgency, or incontinence. Allergies and current medication updated:Yes EXAM: BP 128/70 Wt 136 lb (61.7kg) GENERAL: pleasant, female in no apparent distress PELVIC: external genitalia normal, normal Bartholin's glands, urethra, [place]'s glands, no vulvar lesions, no cervical lesions, physiologic discharge present, normal appearing perineal body and perianalregion, cystocele minimal, rectocele 1st degree, cuff well supported, atrophic flattened epithelium without lesions BIMANUAL: no adnexal masses, non-tender, uterus surgically absent and weak levator squeeze. Anus- normal sphincter tone, ball of soft stool in vault. No RV masses or nodularity. ASSESSMENT AND PLAN: Minimal rectocele, significant defecation dysfunction, no significant urinary issues. At this point discussed with the patient that her rectocele is minimal. Based on this and the fact that she did nothave any improvement with her pessary, in fact that time she felt like her symptoms are worse, I rectocele repair is not indicated. I discussed with her it would likely not alleviate her defecation dysfunction. I would recommend that she avoid fiber and take MiraLAX to keep stool soft and regular. Shedoes not seem to have a significant weakness of the anal sphincter. She reports that she has 5 smallbowel movements a day. Some of them she strains for and some of them are spontaneous, and some of them are leaking with urgency. I recommend that she follow up with pelvic floor physical therapy as shehad not optimized this when she stopped the treatments last year. In addition, patient agrees that she will be more thorough with this and start this back up. If she does not have satisfactory results with these 2 measures, I recommend consultation with urogynecology or colorectal surgery. Patient agrees with plan. Maximo Cesar MD documented in this encounterPadmini Blackwell Tech (Rt) - 01/21/2020 10:32 AM EDT Radiology Service Progress Note PATIENT NAME: Fannie Lucas DATE OF SERVICE: January 21, 2020 TIME: 10:32 AM PATIENT IDENTITY VERIFICATION COMPLETED USING TWO (2) IDENTIFIERS: Name and Date of confirmed by patient verbally. FALL SCREENING: Has the patient had 2 falls in the last year or 1 fall with injury or currently using an Ambulatory Assistive Device (Walker, Cane, Wheelchair, Crutches, etc.)? No PATIENT GENDER DATA: Female. status: : No status: NO. PATIENT RELEVANT IMPLANT DATA REVIEWED: Not Applicable RADIOLOGY DEPARTMENT: General X-ray: Exam(s) Completed: Pelvis X-Ray: Pelvis with Hip Right PERIPHERAL IV DATA: Not applicable SIGNED BY: RT Joanie January 21, 2020 10:32 AM documented in this encounterCatina Shaw (Sales Planning Coordinator) - 01/21/2020 9:42 AM EDT CC: Patient presents with: Medication Follow-up Imm/Inj: Flu Vaccine HPI Fnanie Lucas is a 74 year old female who presents today for above. Reports right hip pain x 1 month. Constant aching, aggravated by walking and changing positions. Alleviated with tylenol and rest. Sometimes feels like hip will give out. Denies stiffness, creaking, grating, popping, leg pain, numbness, tingling. History of carotid stenosis, wondering if she should have re- evaluated. Having some issues with memory, forgetful and trouble with word finding at times. Admits to being under a lot of stress with pandemic and anxious. Denies depressed mood. Patient was on Atenolol for years for palpitations but weaned off of it. No issues with palpitations since then. [facility] BP at home, average in the 110's/60's. REVIEW OF SYSTEMS See HPI PAST MEDICAL HISTORY Diagnosis Date ? ALLERGIC RHINITIS NOS 11/30/2008 ? ANXIETY STATE NOS 01/15/2007 ? Benign meningioma of brain (HCC) 10/28/2017 ? Benign neoplasm of colon 11/30/2008 ? Carotid disease, bilateral (HCC) 01/03/2016 ? 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 CERVICAL SPONDYLOSIS 02/26/2005 ? Diarrhea ? Diverticulosis of colon 01/06/2009 ? Esophageal reflux ? Hemorrhage of rectum and anus 12/02/2017 ? HEMORRHOIDS NOS 11/30/2008 ? HYPERLIPIDEMIA NEC/NOS 03/18/2005 ? IBS (irritable bowel syndrome) 01/26/2013 ? Incontinence of feces 11/30/2008 ? Osteopenia ? Palpitations 01/13/2012 ? Perforation of large intestine (HCC) 12/03/2017 ? 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 TIA (transient ischemic attack) 06/17/2017 [place], [place] PAST SURGICAL HISTORY Procedure Laterality Date ? CHOLECYSTECTOMY HX 03/2018 ? COLONOSCOP W/ OR W/O BRSH SPEC 10/20/03 Colonoscopy ? COLONOSCOP W/ OR W/O BRSH SPEC 01/06/09 Extensive diverticulosis/hemorrhoids ? COLONOSCOP W/ OR W/O BRSH SPEC 07/24/2012 Colonoscopy in [place] ? COLONOSCOPY DIAG CNTRL BLEED 12/02/2017 laser of cecal AVM ? DRAIN ABDOMINAL ABSCESS, PERCUTANEOUS 12/15/2017 perianastomotic abscess ? EGD 12/02/2017 ? EGD W/O OR W/BRUSH/WASH 07/03/2012 EGD in [place] ? HEMORRHOIDECTOMY,INT/EXT,COMPLX 10-26-2009 ? LAMINECTOMY,FACETECTOMY,LUMBAR 07/08/2011 [place], [place] ? LAP, SURG MOBIL SPLENIC [place] DUR PTL COLECTOMY 02-02-09 ? LAPAROSCOPIC HEMICOLECTOMY 02/02/2009 ? LAPAROSCOPIC HEMICOLECTOMY Right 12/03/2017 ? PAST SURGICAL HISTORY OF 1964 ovarian cyst removed ? PAST SURGICAL HISTORY OF 2001 BREAST BIOPSY--BENIGN ? PAST SURGICAL HISTORY OF 03/28/2018 Gallbladder removed ? SIGMOIDOS , CONTROL BLEED 03/22/09 Granulation tissue at anastomosis ? SIGMOIDOS FLEX DIAG W/BX SING/MUL 02/28/11 ? TOTAL ABDOM HYSTERECTOMY Hysterectomy, TERI, BSO ALLERGIES Bactrim [Sulfamethoxazole-Trimethoprim], Clindamycin Hcl, Flagyl [Metronidazole Hcl], and Gadolinium-Containing Contrast Media MEDICATIONS atorvastatin (LIPITOR) 40 mg tablet TAKE 1 TABLET EVERY DAY AT BEDTIME FOR CHOLESTEROL polyethylene glycol 3350 (MIRALAX ORAL) Take 0.5 teaspoonsful by mouth once daily. wheat dextrin (BENEFIBER CLEAR SF, DEXTRIN, ORAL) Take 0.5 teaspoonsful by mouth once daily. MULTIVITAMIN TAB Take one(1) tablet daily. CALCIUM + D 600 MG-200 UNIT TAB Take one(1) tablet daily. ASPIRIN 81 MG TAB Take one (1) tablet daily . atenolol (TENORMIN) 25 mg tablet Take 1 tablet by mouth once daily. famotidine (PEPCID ORAL) Take by mouth. VITAMIN E 200 UNIT CAP Take one(1) tablet daily. Henry-3 Fatty Acids (FISH OIL) ORAL Cap Take one(1) capsule daily. FAMILY HISTORY Problem Relation Age of Onset ? Breast Cancer Mother dec. age 88 ? Blood Disease Father PE, post MVA, dec. 53yo ? Breast Cancer Sister ? other (Other) Sister complications from falling ? Breast Cancer Sister ? None Sister ? other (multiple myeloma) Brother ? Alzheimer's Disease Sister Social History Tobacco Use ? Smoking status: Never Smoker ? Smokeless tobacco: Never Used Substance Use Topics ? Alcohol use: No ? Drug use: No PHYSICAL EXAM BP 130/80 Pulse 80 Temp 36 ?C (96.8 ?F) (Temporal) Resp 16 Wt 62.1 kg (137 lb) SpO2 98% BMI 24.27 kg/m? General Appearance: well appearing, in no acute distress, alert Lungs: Lungs clear to auscultation. No wheezing, rhonchi, rales. Heart: RRR without murmur, gallop, or rubs. No ectopy HEPATITIS C SCREENING due on 09/05/1961 DTAP,TDAP,TD(1 - Tdap) due on 09/05/1962 ADVANCE DIRECTIVE DISCUSSION due on 09/05/2008 SHINGRIX VACCINE(2 of 3) due on 01/11/2011 INFLUENZA(1) due on 12/21/2019 DIABETES SCREEN due on 02/11/2020 COLONOSCOPY due on 12/02/2022 LIPID SCREEN due on 05/28/2023 BONE DENSITY Completed PNEUMOVAX AGE 65 AND OVER WITH 5YR LOOKBACK Completed MENINGOCOCCAL CONJUGATE Completed DATA REVIEWED: Most recent labs ASSESSMENT/PLAN: 1. Hyperlipidemia, unspecified hyperlipidemia type - ICD9: 272.4, ICD10: E78.5 (primary diagnosis) - to be determined upon return of lab results - Continue current medication. - LIPID PANEL BASIC - CMP (CMP) (FOR REMOTE [facility] USE) - ATORVASTATIN 40 MG TABLET 2. Acute hip pain, right - ICD9: 719.45, ICD10: M25.551 Likely osteoarthritis - Check XR HIP GENERAL 3V PELV/AP/LAT RT today - Okay to continue with Tylenol as needed - Given hip conditioning exercise handout from [email or web address] - Further recommendations pending results 3. Bilateral carotid artery stenosis - ICD9: 433.10, 433.30, ICD10: I65.23 Recheck - US CAROTID ARTERIES [facility] 4. Palpitations - ICD9: 785.1, ICD10: R00.2 Resolved, atenolol discontinued 5. Irritable bowel syndrome with diarrhea - ICD9: 564.1, ICD10: K58.0 Stable 6. Need for vaccination - ICD9: V05.9, ICD10: Z23 - INFLUENZA SEASONAL QUADRIVALENT HIGH DOSE AGE 65+ Prescription instructions reviewed with patient as applicable. Potential red flag symptoms discussedwith the patient. Reviewed appropriate action plan to take if red flag symptoms occur. Patient agreeable to treatment plan. Catina hSaw APRN.CNP documented in this encounter Assessments Diagnosis Rectocele - Primary Dyssynergic defecation Incomplete defecation Diagnosis Acute hip pain, right Diagnosis Hyperlipidemia, unspecified hyperlipidem ia type - Primary Acute hip pain, right Bilateral carotid artery stenosis Occlusion and stenosis of carotid artery without mention of cerebral infarction Palpitations Irritable bowel syndrome with diarrhea Irritable bowel syndrome Need for vaccination Need for prophylactic vaccination and in oculation against unspecified single disease Diagnosis Encounter for screening mammogram for ma lignant neoplasm of breast - Primary Other screening mammogram Instructions Patient InstructionsCatina Shaw) - 01/21/2020 10:03 AM EDTYou are due for Shingles vaccine (Shingrix), verify coverage with your insurance documented in this encounter Additional Source Comments FOR RECORDS PERTAINING TO PATIENTS WHO ARE OR HAVE BEEN ENROLLED IN A CHEMICAL DEPENDENCY/SUBSTANCE ABUSE PROGRAM, SOME INFORMATION MAY BE OMITTED. This clinical summary was aggregated from multiple sources. Caution should be exercised in using it in the provision of clinical care. This summary normalizes information from multiple sources, and as a consequence, information in this document may materially changethe coding, format and clinical context of patient data. In addition, data may be omittedin some cases. CLINICAL DECISIONS SHOULD BE BASED ON THE PRIMARY CLINICAL RECORDS. [facility] provides no warranty or guarantee of the accuracy or completeness of information in this document. UNRECOGNIZED CONTENT PROVIDED BELOW FOR UNRECOGNIZED SECTION INFORMATION SOURCE DATE CREATED AUTHOR AUTHOR'S ORGANIZATIO N 11/07/2019 [facility] DATE CREATED AUTHOR AUTHOR'S ORGANIZATIO N 11/08/2019 [facility] DATE CREATED AUTHOR AUTHOR'S ORGANIZATIO N 11/12/2019 [facility] DATE CREATED AUTHOR AUTHOR'S ORGANIZATIO N 02/01/2020 [facility] UNRECOGNIZED CONTENT PROVIDED BELOW FOR UNRECOGNIZED SECTION Source Comments In the event this information is protected by the Federal Confidentiality of Alcohol and Drug Abuse Patient Records regulations: The Federal rules restrict any use of the information to criminally investigate or prosecute any alcohol or drug abuse patient.[facility] Hospital[facility] the event this information is protected by the Federal Confidentiality of Alcohol and Drug Abuse Patient Records regulations: The Federal rules restrict any use of the information to criminally investigate or prosecute any alcohol or drug abuse patient.[facility] HospitalIn the event this information is protected by the Federal Confidentiality of Alcohol and Drug Abuse Patient Records regulations: The Federal rules restrict any use of the information to criminally investigate or prosecute any alcohol or drug abuse patient.[facility] HospitalIn the event this information is protected by the Federal Confidentiality of Alcohol and Drug Abuse Patient Records regulations: The Federal rules restrict any use of the information to criminally investigate or prosecute any alcohol or drug abuse patient.[facility] HospitalIn the event this information is protected by the Federal Confidentiality of Alcohol and Drug Abuse Patient Records regulations: The Federal rules restrict any use of the information to criminally investigate or prosecute any alcohol or drug abuse patient.[facility] HospitalIn the event this information is protected by the Federal Confidentiality of Alcohol and Drug Abuse Patient Records regulations: The Federal rules restrict any use of the information to criminally investigate or prosecute any alcohol or drug abuse patient.[facility] UNRECOGNIZED CONTENT PROVIDED BELOW FOR UNRECOGNIZED SECTION Reason for Visit Reason Comments Pessary Reason Comments Radiology XR Reason Onset Date Comments Medication Follow-up Imm/Inj 01/21/2020 Flu Vaccine Reason Comments Results UNRECOGNIZED CONTENT PROVIDED BELOW FOR UNRECOGNIZED SECTION Miscellaneous Notes Telephone Encounter - Ulices Osborne Cma - 01/24/2020 8:40 AM EDTSent secure [employer]t message to patient with below information. Ulices Osborne Cma elephone Encounter - Ulices Osborne Cma - 01/24/2020 8:40 AM EDT ----- Message from Catina Shaw sent at 01/24/2020 8:34 AM EDT ----- X-ray of the hip showing chondrocalcinosis which is the build up of calcium deposits on the hip cartilage. This is a type of arthritis that can be seen with advancing age. Treatment for this is conservative including NSAID's and exercises such as the ones given to her at appointment. Call office for any worsening or persistent symptoms. Catina Shaw APRN.CNP documented in this encounterTelephone Encounter - Remedios Scott LPN - 01/24/2020 11:50 AM EDTPlease approve order for mammogram. PSS please contact patient to schedule documented in this encounterTelephone Encounter - Ulices Osborne Cma - 01/31/2020 12:38 PM EDTPatient is notified of all information and verbalizes understanding elephone Encounter - Catina Shaw) - 01/31/2020 11:52 AM EDTOutside lab results reviewed. Cholesterol levels optimal. Kidney and liver function normal. Catina Shaw APRN.CNP documented in this encounter
== END ==
PROVIDERS: PCP Internal Medicine; Referring Provider Neurological Surgery; Visit Provider Neurological Surgery
DX: D32.9 Benign neoplasm of meninges, unspecified (principal); D32.0 Benign neoplasm of cerebral meninges
CPT/HCPCS: 70553; A9575

== ENCOUNTER 2020-03-25 09:51 | Emergency (ER) | payer MEDICARE, SELFPAY ==
[2020-03-25 09:53] VITALS: BP 145/79; PULSE 91; RESP 16; TEMP 36.4; O2SAT 99; BMI 24.0
--- NOTE | 2020-03-25 10:01 | RAD_ITS ---
STUDY: X-RAY CHEST REASON FOR EXAM: Female, 74 years old. PALPITATIONS TECHNIQUE: Single AP portable view of the chest. COMPARISON: 02/23/2018. FINDINGS: Somewhat hyperinflated lungs. Small granuloma in the left midlung zone. No focal infiltrate is seen. There is no demonstrated pleural abnormality. Normal size heart. Normal mediastinum and jamil. Normal visualized pulmonary arteries. There is atherosclerotic calcification of the aortic arch with tortuosity. Mild levoscoliosis of the lower thoracic spine. Normal visualized ribs, clavicles, and shoulders. There is no demonstrated abnormality of the visualized soft tissue structures of the upper abdomen. RAD/Chest 1 View (Portable) IMPRESSION: No active pulmonary disease. Electronically Signed: Arnold Zhang MD at 10:56 EST Tel , Service support ,
--- NOTE | 2020-03-25 10:01 | EKG12_ITS ---
Test Reason : GENERAL ILLNESS Blood Pressure : / mmHG Vent. Rate : 075 BPM Atrial Rate : 075 BPM P-R Int : 140 ms QRS Dur : 142 ms QT Int : 420 ms P-R-T Axes : 015 -77 000 degrees QTc Int : 469 ms Normal sinus rhythm Left axis deviation Right bundle branch block Abnormal ECG Confirmed by KIA MA, GARRICK ([id number]), social media editor YASMINE NORRIS ([id number]) on 03/27/2020 1:29:32 PM Referred By: BB/ Confirmed By:GARRICK ADAM MD
[2020-03-25 10:23] LABS: Absolute Lymphocyte Count 1.05 X10^3/uL (0.83-4.51); Absolute Neutrophil Count 3.4 X10^3/uL (2.0-7.7); Basophil# 0.02 X10^3/uL; Basophil% 0.4 % (0-1); Eosinophil# 0.12 X10^3/uL; Eosinophils% 2.4 % (0-5); Hemoglobin 14.4 g/dL (12.0-15.0); Lymphocyte # 1.05 X10^3/ul (4.0); Lymphocyte % 20.7 % (19-41); Mean Corp Hgb Conc 34.3 g/dL (32-36); Mean Corpuscular Volume 96.1 fL (81-99); Mean Platelet Vol. 9.4 fl (6.2-12.0); Monocyte# 0.49 X10^3/uL; Monocyte% 9.7 % (0-10); NRBC Flagged by Analyzer 0 % (0-5); Neutrophil # 3.38 X10^3/uL (2.7-7.7); Neutrophil % 66.6 % (47-70); Platelet Count 229 K/mm3 (150-450); RBC Distribution Width CV 11.5 % (11.6-14.6); RBC Distribution Width SD 40.2 fl (35.1-43.9); Red Blood Count 4.37 M/mm3 (4.2-5.4); White Blood Count 5.1 K/mm3 (4.4-11.0)
--- NOTE | 2020-03-25 10:37 | CT_ITS ---
STUDY: CT ABDOMEN AND PELVIS WITH CONTRAST REASON FOR EXAM: Female, 74 years old. Diffuse abdominal pain. History of prior right hemicolectomy. RADIATION DOSAGE (If Supplied By Facility): CTDIvol = ( 9.06 ) mGy, DLP = ( 548.07 ) mGycm TECHNIQUE: Transaxial images were obtained from the dome of the diaphragm to the symphysis pubis without oral contrast. IV 100mL Isovue-370 was administered. Sagittal and coronal images were reconstructed. Individualized dose optimization techniques were used for this CT. COMPARISON: 03/02/2018 FINDINGS: The visualized portions of lung bases demonstrate mild scarring unchanged prior exam. No focal infiltrate is seen. The visualized portions of the heart are within normal limits. Pneumobilia. Stable small cyst in the left lobe of the liver. No new lesions are seen. Another smaller cyst in the anterior segment of the right lobe. There are surgical clips in the gallbladder fossa consistent with a prior cholecystectomy. There is a benign calcified granuloma of the spleen. Normal pancreas. Normal bilateral adrenal glands. Normal right kidney. Normal left kidney. Normal visualized stomach. The small bowel loops are normal in caliber. Status post right hemicolectomy. No significant stranding or inflammatory changes in the region of the anastomosis. Diverticulosis of the sigmoid colon. No evidence of acute diverticulitis. Anastomosis sutures in the region of the rectosigmoid colon. There is diffuse atherosclerotic calcification of the abdominal aorta, without a demonstrated aneurysm. Normal inferior vena cava. Normal retroperitoneum. Normal urinary bladder. There is absence of the uterus consistent with a prior hysterectomy. Normal abdominal wall. Fusion of L4-L5 and L5-S1 unchanged. CT/Abdomen/Pelvis W IV Cont ONLY IMPRESSION: 1. Pneumobilia. Status post cholecystectomy. 2. Status post right colectomy. No evidence of bowel obstruction. 3. No mass or focal acute inflammatory process is seen. Electronically Signed: Arnold Zhang MD at 12:24 EST Tel , Service support ,
[2020-03-25 10:47] LABS: Anion Gap 0 (5-15); BUN 11 mg/dL (7-18); BUN/Creat Ratio 14.5 RATIO (10-20); Calcium,Total 9.4 mg/dL (8.5-10.1); Chloride 104 mmol/L (98-107); Creatinine, Serum 0.76 mg/dL (0.55-1.02); EST Glomerular Filtration Rate 79 mL/min (>60); Est Glom Filt Rate - Afr Amer 96 mL/min (>60); Estimated Creatinine Clearance 39.59 ml/min; Glucose 106 mg/dL (74-106); Potassium 3.3 mmol/L (3.5-5.1); Sodium Level 140 mmol/L (136-145)
[2020-03-25 11:24] LABS: Lipase 119 U/L (73-393)
[2020-03-25 11:25] LABS: Mucous, Urine 0 SEEN /hpf (<or=2+); Red Blood Cells-Urine 0 SEEN /hpf (0-5)
[2020-03-25 11:28] LABS: Color, Urine Yellow (Yellow); Glucose, Dipstick Normal (Normal); Ketone-Dipstick Negative (Negative); Leukocyte Esterase-Dipstick 25 /ul (Negative); Nitrite-Dipstick Negative (Negative); Occult Blood-Urine Negative /ul (Negative); Protein-Dipstick Negative (Negative); Urine Bilirubin Dipstick Negative (Negative); Urine Clarity Clear (Clear); Urine Urobilinogen Normal (Normal)
--- NOTE | 2020-03-25 11:30 | ED.VISSUMM ---
- ER Visit Summary Date of Service: 03/25/20 Chief Complaint: Not feeling well History of Present Illness: The patient is a 74 F presenting stating that she just is not feeling well. She states she has felt fatigued. She denies fever or chills. She denies chest pain or shortness of breath. She has had nausea with no vomiting. She has had mild diarrhea. She complains of myalgias and mild headache. This is not the worst headache of her life. She has lightheadedness with no syncope. She has no known exposure to Covid. Physical Examination: Vitals are stable. Patient is afebrile. Alert no acute distress. HEENT exam is unremarkable. Neck is supple. No meningismus Lungs are clear and equal bilaterally. Heart is regular rate and rhythm. Abdomen is soft mild left lower quadrant tenderness with no guarding or rebound Extremities are unremarkable. Skin is warm and dry. No focal neurologic deficit. Remainder of exam is unremarkable. Emergency Department Course and Treatment: Patient was given IV fluids, Zofran. EKG is sinus rhythm, right bundle branch block, similar to previous. CBC, chemistries unremarkable other than potassium 3.3. Lipase is normal. Urinalysis unremarkable. Troponin is negative. Covid is negative. Chest x-ray shows no acute process. CT abdomen pelvis shows pneumobilia. Status post cholecystectomy. Status post right colectomy. No evidence of bowel obstruction. No mass or focal acute inflammatory process is seen. Discussed with surgery. Pneumobilia may be chronic finding after cholecystectomy. Her cholecystectomy was performed in [place]. She has no right upper quadrant pain, white count or fever to suggest infection. On reevaluation patient is feeling improved. She states she is been under a lot of stress recently. She feels comfortable with discharge home. She will return to the ED for worsening complaints. She will follow-up with her primary care physician. Disposition: Discharge home Impression: Generalized fatigue This note was generated with [employer] dictation software. It may contain incorrect words, spelling, and punctuation that were not noted in review of the chart prior to signing ED Disposition - Plan for ED Patient: Referrals: Gavin Tran MD [Primary Care Provider] -
[2020-03-25 11:51] LABS: Amorphous Sediment 1+; Bacteria 1+ /hpf (None Seen); Squamous Epithelial Cells - UA 0-5 SEEN /hpf (5-10); White Blood Cells 0-5 SEEN /hpf (0-5)
[2020-03-25 12:16] VITALS: BP 150/71; PULSE 69; RESP 18; O2SAT 98
--- NOTE | 2020-03-25 13:28 | ED.DEP ---
ED Disposition - Plan for ED Patient: Instructions: ED Weakness (Uncertain Cause) Referrals: Gavin Tran MD [Primary Care Provider] -
[2020-03-25 13:41] VITALS: BP 144/68; PULSE 67; RESP 15; O2SAT 99
== END 2020-03-25 13:42 | disposition home or self-care (01) ==
PROVIDERS: Emergency Provider Emergency Medicine; PCP Internal Medicine
DX: R53.83 Other fatigue (principal)
CPT/HCPCS: 71045; 74177; 80048; 81001; 83690; 84484; 85025; 87426; 93005; 96360; 99283; J7040; Q9967; A4216

== ENCOUNTER → 2021-09-03 | Outpatient (CLI) | payer MEDICARE, SELFPAY ==
--- NOTE | 2021-09-03 11:16 | MRI_ITS ---
EXAM: MR HEAD WITHOUT AND WITH INTRAVENOUS CONTRAST CLINICAL INDICATION: MENINGIOMA DIzzy TECHNIQUE: Multiplanar and multisequence MR images of the brain were obtained without and with intravenous contrast. This report was created using [employer] report generation technology. CONTRAST: IV 13ml Dotarem COMPARISON: Sep 28 2019 3:48pm FINDINGS: BRAIN AND EXTRA-AXIAL SPACES: Chronic involutional changes of the brain. Homogeneously enhancing dural based parafalcine mass is noted in the left parietal lobe measuring approximately 22 x 20 x 26mm consistent with meningioma. There are no new enhancing lesions. Minimal mass effect upon the underlying parietal lobe. No intra- or extra-axial hemorrhage. No evidence of acute infarct. There is preservation of the henderson/white matter interface. Posterior fossa structures are unremarkable. Ventricles are appropriate for age. No hydrocephalus. Basal cisterns are patent. SELLA: Unremarkable. Normal sella turcica, pituitary gland, infundibular stalk, optic chiasm and hypothalamus. AUDITORY SYSTEM: Unremarkable. The internal auditory canals are patent. BONES/JOINTS: Unremarkable. No discrete lytic or blastic abnormalities. SINUSES: Unremarkable as visualized. Clear. MASTOID AIR CELLS: Unremarkable as visualized. Clear. ORBITS: Unremarkable as visualized. Both globes, extraocular muscles, optic nerves and retrobulbar fat appear unremarkable. VASCULATURE: Unremarkable as visualized. Normal flow voids in the major intracranial circulation. MRI/Brain W/WO Contrast IMPRESSION: 1. Slight enlargement of the left parafalcine meningioma. 2. Chronic involutional changes of the brain. Electronically Signed: Galileo Upton MD at 17:24 EDT ,
[2021-09-03 11:31] LABS: CREATININE FINGERSTICK < 0.9 mg/dL (0.55-1.02); EGFR FINGERSTICK > 60.0000 mL/min (>60)
== END | disposition home or self-care (01) ==
LOC: MRI 11:06
PROVIDERS: PCP Internal Medicine; Visit Provider Neurological Surgery
DX: D32.0 Benign neoplasm of cerebral meninges (principal)
CPT/HCPCS: 70553; A9575

== ENCOUNTER 2021-11-19 13:24 | Emergency (ER) | payer MEDICARE, SELFPAY ==
[2021-11-19 13:26] VITALS: BP 136/75; PULSE 86; RESP 16; TEMP 36.3; O2SAT 96; BMI 24.0
--- NOTE | 2021-11-19 14:18 | CT_ITS ---
STUDY: CT THORACIC SPINE WITHOUT CONTRAST REASON FOR EXAM: Female, 76 years old. Back pain TECHNIQUE: The patient was scanned in a multi detector CT scanner. High resolution imaging was performed. Images were obtained from T1 to T12. Sagittal and coronal images were reconstructed. Radiation: CTDIvol = [18.45] mGy, DLP = [706.47] mGy-cm Individualized dose optimization techniques were used for this CT. COMPARISON: None. FINDINGS: Normal visualized cervical spine. Normal kyphosis of the thoracic spine. There is a dextroscoliosis of the thoracic spine. There is multilevel endplate spondylosis of the thoracic spine. There is multilevel degenerative disc disease with loss of the disc space heights. There are atherosclerotic vascular calcifications. The gallbladder is surgically absent. There are coronary arterial calcifications. CT/Spine Thoracic without Contras IMPRESSION: (NOT LISTED IN ORDER OF SIGNIFICANCE) There are degenerative changes as noted above. Electronically Signed: Galileo Upton MD at 15:38 EDT ,
--- NOTE | 2021-11-19 14:18 | ED.VIS.BACK ---
HPI History of Present Illness Chief Complaint: Back Informant: patient and spouse/S.O. Narrative Narrative: 76-year-old female presenting to the emergency room with left thoracic back spasms. Patient states that she developed tendinitis in her left Achilles due to a heel spur. This caused alteration in gait which is now led to some left-sided back pain. She denies any radicular symptoms. She states that over the past 2 weeks it has worsened. She has not been seen specifically for this. She states the only thing that was different today was the level of pain. No cough shortness of breath fevers hematuria or abdominal symptoms. She denies any immunosuppression back injections or other red flag history. [facility] Medical History Blood in stool Constipation Diarrhea Hemorrhoids Personal history of colonic polyps Stroke Home Medications calcium carbonate 500 mg calcium (1,250 mg) tablet 500 mg PO BID supplement 01/05/17 [History Last Taken 12/03/17 08:00 500 mg] multivitamin 1 ea PO DAILY supplement 01/05/17 [History Last Taken 12/03/17 08:00 1 tab] atorvastatin 20 mg tablet 40 mg PO QHS cholesterol 11/21/17 [History Last Taken 12/02/17 22:00 20 mg] vitamin E 670 mg (1,000 unit) capsule 400 unit PO DAILY supplement 11/21/17 [History Last Taken 12/03/17 08:00 400 mg] acetaminophen 325 mg tablet 650 mg PO Q6H PRN PRN pain 12/07/17 [Rx Last Taken Unknown] cholecalciferol (vitamin D3) 25 mcg (1,000 unit) tablet 1,000 unit PO DAILY 03/25/20 [History Last Taken Unknown] polyethylene glycol 3350 17 gram oral powder packet 17 gm PO PRN PRN Constipation 03/25/20 [History Last Taken Unknown] diazepam 5 mg tablet 5 mg PO Q8 PRN Muscle Spasm #15 tabs 11/19/21 [Rx Last Taken Unknown] oxycodone-acetaminophen 5 mg-325 mg tablet 1 tab PO Q6H PRN PRN pain 5 days #20 TABLETS 11/19/21 [Rx Last Taken Unknown] Allergy/AdvReac Type Severity Reaction Status Date / Time clindamycin Allergy Intermediate nausea/vomi Verified 11/19/21 13:29 ting sulfamethoxazole Allergy Intermediate nausea/vomi Verified 11/19/21 13:29 [From Bactrim] ting trimethoprim [From Bactrim] Allergy Intermediate nausea/vomi Verified 11/19/21 13:29 ting Gadolinium-MRI Contrast Allergy Hives Verified 11/19/21 13:29 Medium levofloxacin [From Levaquin] AdvReac Nausea Verified 11/19/21 13:29 metronidazole [From Flagyl] AdvReac Nausea Verified 11/19/21 13:29 Family History Mother Breast cancer Thyroid disorder Aunt Breast cancer Surgical History History of colectomy History of ERCP History of hemorrhoidectomy History of hysterectomy History of removal of ovarian cyst History of spinal fusion Hx of cholecystectomy Social History Smoking Status: Never smoker alcohol intake: never substance use type: does not use ROS ROS ED Constitutional Constitutional ED: Denies chills or weight loss Eyes Eyes: Denies change in vision or diplopia ENT ENT ED: Denies ear pain, rhinorrhea or sore throat Cardiovascular Cardiovascular: Denies chest pain, orthopnea, palpitations or racing heartbeat Respiratory/Chest Respiratory/Chest: Denies cough, dyspnea or orthopnea Gastrointestinal Gastrointestinal: Denies abdominal pain, diarrhea, nausea or vomiting Genitourinary Genitourinary ED: Denies dysuria, hematuria or urinary frequency Musculoskeletal Musculoskeletal: Reports back pain and other Details: See history of present illness ; Denies arthralgias or myalgias Integumentary Denies abscess or rash Neurologic Neurologic: Denies headache(s), paresthesias or weakness Psychiatric Psychiatric: Denies anxiety, depression, suicidal ideation or suicidal thoughts Endocrine Endocrinology: Denies polydipsia, polyphagia or polyuria Allergic/Immunologic Allergic/Immunologic ED: Denies mouth swelling, tongue swelling or urticaria EXAM Physical Exam Const Vital Signs: 11/19/21 13:26 Temperature 97.4 F L Temperature Source Temporal Pulse Rate 86 Respiratory Rate 16 Blood Pressure 136/75 H Blood Pressure Mean 95 Pulse Ox 96 Oxygen Delivery Method Room Air Positive well nourished and well developed General Appearance ED: well developed HEENT Reports normocephalic, head/scalp atraumatic and moist mucous membranes Eyes PERRL and EOMs intact bilaterally Neck no lymphadenopathy, supple and no JVD Resp normal respiratory effort and clear to auscultation bilaterally Cardio regular rate, regular rhythm and no murmurs GI normal to inspection, nondistended, normoactive bowel sounds and non-tender Palpation: soft Back/Spine no CVA tenderness Back/Spine Narrative: Patient has painful limited range of motion. She has left paraspinal muscular tenderness to palpation in the mid thoracic spine. There is no lumbar paraspinal or midline tenderness. There are no tissue texture changes to suggest underlying infection. Extremity normal to inspection General Extremety ED: Negative for edema General Extremity: Negative for edema Neuro oriented x3 and CN's II-XII intact bilaterally Sensorium / Orientation: alert Motor Exam: strength 5/5 throughout Psych mental status grossly normal Mood & Affect: Negative for depressed or tearful Skin no rashes or lesions noted and no wounds MDM MDM MDM Narrative Medical decision making narrative: Basic blood work was obtained and was negative. CT of the thoracic spine was obtained which demonstrated some degenerative changes. Patient received Valium and Toradol. I will write for Valium and Percocet for home. She was advised she may benefit from electrical stimulation or soft tissue work and chiropractic evaluation. Recommend continued heat as well primary care. Return instructions given Lab Data Attestation: I reviewed the patient's lab results. Labs: Laboratory Results - last 24 hr 11/19/21 11/19/21 14:30 14:30 WBC 4.5 RBC 4.28 Hgb 14.2 Hct 42.4 MCV 99.1 H MCH 33.2 H MCHC 33.5 RDW Std Deviation 41.9 RDW Coeff of Darrin 11.6 Plt Count 226 MPV 9.9 Immature Gran % (Auto) 0.400 Neut % (Auto) 57.3 Lymph % (Auto) 30.0 Trego % (Auto) 8.6 Eos % (Auto) 3.3 Baso % (Auto) 0.4 Absolute Neuts (auto) 2.6 Absolute Lymphs (auto) 1.36 Nucleated RBC % 0 Sodium 141 Potassium 3.8 Chloride 108 H Carbon Dioxide 32.0 Anion Gap 1 L BUN 12 Creatinine 0.67 Estim Creat Clear Calc 38.35 Est GFR (MDRD) Af Amer 109 Est GFR (MDRD) Non-Af 90 BUN/Creatinine Ratio 17.9 Glucose 95 Calcium 9.5 Radiography Diagnostic Testing: Clinical Impression(s) from Imaging Studies Thoracic Spine CT 11/19/21 14:18 IMPRESSION: (NOT LISTED IN ORDER OF SIGNIFICANCE) There are degenerative changes as noted above. Electronically Signed: Galileo Upton MD at 15:38 EDT , Discharge Plan Triage Chief Complaint: Back ED Provider: Cristi Rousseau Dx/Rx/DC Orders Clinical Impression: Acute left-sided thoracic back pain, Spasm of thoracic back muscle Instructions: ED Back Spasm, No Trauma Prescriptions: New oxycodone-acetaminophen [oxycodone-acetaminophen] 5-325 mg tablet 1 tab PO Q6H PRN PRN (Reason: pain) 5 Days Qty: 20 0RF diazepam [diazepam] 5 mg tablet 5 mg PO Q8 PRN (Reason: Muscle Spasm) Qty: 15 0RF No Action multivitamin 1 EACH tablet 1 ea PO DAILY calcium carbonate 500 MG tablet 500 mg PO BID atorvastatin 20 mg tablet 40 mg PO QHS vitamin E 1,000 unit capsule 400 unit PO DAILY acetaminophen 325 MG tablet 650 mg PO Q6H PRN PRN (Reason: pain) 0RF cholecalciferol (vitamin D3) 1,000 UNIT tablet 1,000 unit PO DAILY polyethylene glycol 3350 17 GM packet 17 gm PO PRN MDD constipation PRN (Reason: Constipation) Primary Care Provider: Gavin Tran Referrals: Gavin Tran MD [Primary Care Provider] - 1 Week Disposition Disposition: Home, Self Care
[2021-11-19] MEDS: Ketorolac 15 MG/ML Vial IV (14:22)
[2021-11-19] MEDS: diazePAM 5 MG Tablet PO (14:22)
[2021-11-19 14:38] LABS: Absolute Lymphocyte Count 1.36 X10^3/uL (0.83-4.51); Absolute Neutrophil Count 2.6 X10^3/uL (2.0-7.7); Basophil# 0.02 X10^3/uL; Basophil% 0.4 % (0-1); Eosinophil# 0.15 X10^3/uL; Eosinophils% 3.3 % (0-5); Hematocrit 42.4 % (37-47); Hemoglobin 14.2 g/dL (12.0-15.0); Lymphocyte # 1.36 X10^3/ul (0.83-4.51); Mean Corp Hgb Conc 33.5 g/dL (32-36); Mean Corpuscular Hgb 33.2 pg (27.0-32.0); Mean Corpuscular Volume 99.1 fL (81-99); Mean Platelet Vol. 9.9 fl (6.2-12.0); Monocyte# 0.39 X10^3/uL; Monocyte% 8.6 % (0-10); NRBC Flagged by Analyzer 0 % (0-5); Neutrophil % 57.3 % (47-70); Platelet Count 226 K/mm3 (150-450); RBC Distribution Width CV 11.6 % (11.6-14.6); RBC Distribution Width SD 41.9 fl (35.1-43.9); Red Blood Count 4.28 M/mm3 (4.2-5.4); White Blood Count 4.5 K/mm3 (4.4-11.0)
[2021-11-19 14:50] LABS: Anion Gap 1 (5-15); BUN 12 mg/dL (7-18); BUN/Creat Ratio 17.9 RATIO (10-20); Calcium,Total 9.5 mg/dL (8.5-10.1); Chloride 108 mmol/L (98-107); Creatinine, Serum 0.67 mg/dL (0.55-1.02); EST Glomerular Filtration Rate 90 mL/min (>60); Est Glom Filt Rate - Afr Amer 109 mL/min (>60); Estimated Creatinine Clearance 38.35 ml/min; Glucose 95 mg/dL (74-106); Potassium 3.8 mmol/L (3.5-5.1); Sodium Level 141 mmol/L (136-145)
== END 2021-11-19 15:59 | disposition home or self-care (01) ==
PROVIDERS: Emergency Provider Emergency Medicine; PCP Internal Medicine; Visit Provider Emergency Medicine
DX: M62.830 Muscle spasm of back (principal); M54.6 Pain in thoracic spine; Z98.1 Arthrodesis status
CPT/HCPCS: 72128; 80048; 85025; 96374; 99283

== ENCOUNTER → 2022-02-13 | Outpatient (CLI) | payer MEDICARE, SELFPAY | END | disposition home or self-care (01) | PROVIDERS: PCP Internal Medicine; Referring Provider Internal Medicine Cardiovascular Disease; Visit Provider Internal Medicine Cardiovascular Disease | DX: I49.9 Cardiac arrhythmia, unspecified (principal) | CPT/HCPCS: 93225; 93226 ==

== ENCOUNTER → 2022-02-21 | Outpatient (CLI) | payer MEDICARE, SELFPAY ==
--- NOTE | 2022-02-21 06:59 | ECHOD_ITS ---
Reason For Study: ARRHYTHMIA Procedure This was a 2D Doppler, Color Flow transthoracic echocardiogram. Exam performed in department. Left Ventricle Normal size and thickness. The left ventricular ejection fraction is 65 %. Normal diastololic function. Right Ventricle Normal right ventricle. Atria The left and right atria are normal. Mitral Valve Mild diffuse mitral valve calcification. Trivial mitral valve insufficiency. Tricuspid Valve Mild tricuspid valve insufficiency. Normal pulmonary artery pressure. Aortic Valve Trisinus/trileaflet aortic valve. Mild (1+) aortic valve insufficiency. Pulmonic Valve Trivial eccentric pulmonic valve insufficiency. Great Vessels Normal sized aortic root. Pericardium/Pleural No pericardial effusion. MMode/2D Measurements & Calculations LVIDd: 4.6 cm IVSd: 0.94 cm LVOT diam: 2.0 cm LVIDs: 3.0 cm LVPWd: 0.90 cm LVOT area: 3.2 cm2 RVDd: 2.9 cm FS: 35.8 % Ao root diam: 3.2 cm LAV(MOD-bp): 36.6 ml LA A4 area: 15.7 cm2 LAV(MOD-bp) Indexed: 22.2 ml/m2 LAV(MOD-sp2): 32.1 ml LAV(MOD-sp4): 38.9 ml LA dimension(2D): 2.7 cm RA A4 area: 10.9 cm2 Time Measurements MV dec time: 0.23 sec Doppler Measurements & Calculations MV E max odell: 71.5 cm/sec Lat Peak E' Odell: 5.7 cm/sec Med Peak E' Odell: 5.9 cm/sec MV A max odell: 83.7 cm/sec E/E' lat: 12.5 E/E' med: 12.2 MV E/A: 0.85 MV dec slope: 316.6 cm/sec2 Ao V2 max: 153.4 cm/sec LV V1 max: 127.0 cm/sec Ao max P.5 mmHg LV V1 max P.5 mmHg Ao V2 mean: 102.0 cm/sec LV V1 mean P.0 mmHg Ao mean P.8 mmHg LV V1 mean: 81.3 cm/sec Ao V2 VTI: 33.6 cm LV V1 VTI: 24.7 cm SHANDRA(I,D): 2.4 cm2 SHANDRA(V,D): 2.7 cm2 SV(LVOT): 79.0 ml PA V2 max: 71.1 cm/sec TR max odell: 226.3 cm/sec TR max P.5 mmHg ECHO/Echo Complete Interpretation Summary The left ventricular ejection fraction is 65 %. Mild diffuse mitral valve calcification. Mild (1+) aortic valve insufficiency. Ordering Physician: Lisandro Gomez Referring Physician: Gavin Tran Performed By: Lauren Griffiths, RDCS, RVT
--- NOTE | 2022-02-21 10:30 | STRESSREP ---
Stress Test Report Date: 02/21/2022 Procedure: Pharmacologic stress nuclear imaging study Indications: Abnormal Consent: Per the patient Procedure: The patient underwent pharmacologic (Regadenoson 0.4mg ) evaluation with a peak heart rate of 1 of beats per minute (73%predicted maximal heart rate) and a peak blood pressure of 140/62 mmHg. The baseline ECG demonstrated normal sinus rhythm with PACs. Right bundle branch block. The peak pharmacologic ECG demonstrated nondiagnostic changes. PACs noted at baseline as well as with Lexiscan and in recovery. [There was no complaint of chest discomfort during pharmacologic infusion or recovery]. The patient was injected with 11 point millicuries of technetium 99m Cardiolite and subsequently rest SPECT Cardiolite nuclear imaging was obtained in the horizontal long, vertical long, and short axis views. The patient underwent pharmacologic (Regadenoson) evaluation. The patient was injected with 33.4 millicuries of technetium 99m Cardiolite and subsequently stress SPECT Cardiolite nuclear imaging was obtained in the horizontal long, vertical long, and short axis views. A gated Cardiolite study at peak stress was obtained. The examination was stopped secondary to completion of protocol. Rest and stress SPECT Cardiolite nuclear imaging status post realignment, normalization, and attenuation correction demonstrate uniform tracer uptake. [There is end systolic thickening and brightening]. [The gated Cardiolite study demonstrates myocardial thickening and inward wall motion]. The reported LVEF is 86%. Impression: 1. Pharmacologic (Regadenoson) evaluation 2. Peak pharmacologic ECG with nondiagnostic changes secondary to baseline abnormal. 3. PACs noted at baseline, with Lexiscan infusion and in recovery. 5. No fixed or reversible defects noted. 6. The gated Cardiolite study reports an LVEF of 86%. This note was generated with [employer] software. It may contain incorrect words, spelling, and punctuation that were not noted in checking the note before signing.
== END | disposition home or self-care (01) ==
PROVIDERS: PCP Internal Medicine; Referring Provider Internal Medicine Cardiovascular Disease; Visit Provider Internal Medicine Cardiovascular Disease
DX: R94.31 Abnormal electrocardiogram [ECG] [EKG] (principal); Z98.890 Other specified postprocedural states
CPT/HCPCS: 78452; 93017; 93306; A9500; A4216; J2785

== ENCOUNTER → 2022-03-21 | Outpatient (CLI) | payer MEDICARE, SELFPAY | END | disposition home or self-care (01) | LOC: LABSPEC 09:31 | PROVIDERS: PCP Internal Medicine; Referring Provider Surgery; Visit Provider Surgery | DX: K92.1 Melena (principal) | CPT/HCPCS: 82274 ==

== ENCOUNTER → 2022-03-27 | Outpatient (CLI) | payer MEDICARE, SELFPAY ==
[2022-03-27 12:16] LABS: Anion Gap 1 (5-15); BUN 13 mg/dL (7-18); BUN/Creat Ratio 21.2 RATIO (10-20); Calcium,Total 9.8 mg/dL (8.5-10.1); Chloride 105 mmol/L (98-107); Creatinine, Serum 0.61 mg/dL (0.55-1.02); EST Glomerular Filtration Rate 100 mL/min (>60); Est Glom Filt Rate - Afr Amer 121 mL/min (>60); Glucose 98 mg/dL (74-106); Magnesium 2.3 mg/dL (1.6-2.6); Potassium 3.5 mmol/L (3.5-5.1); Sodium Level 141 mmol/L (136-145); Thyroid Stim Hormone (TSH) 1.17 uIU/mL (0.358-3.74)
== END | disposition home or self-care (01) ==
LOC: LAB 10:43
PROVIDERS: PCP Internal Medicine; Referring Provider Internal Medicine Cardiovascular Disease; Visit Provider Internal Medicine Cardiovascular Disease
DX: I49.9 Cardiac arrhythmia, unspecified (principal); R13.10 Dysphagia, unspecified
CPT/HCPCS: 36415; 80048; 83735; 84443

== ENCOUNTER 2022-03-29 08:40 | Day surgery (SDC) | payer MEDICARE, SELFPAY ==
--- NOTE | 2022-03-29 09:02 | HP.PCM_ITS ---
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 Is patient in pain?: No Allergies clindamycin Allergy (Intermediate, Verified 03/20/22 14:15) nausea/vomitingsulfamethoxazole [From Bactrim] Allergy (Intermediate, Verified 03/20/22 14:15) nausea/vomitingtrimethoprim [From Bactrim] Allergy (Intermediate, Verified 03/20/22 14:15) nausea/vomitingGadolinium-MRI Contrast Medium Allergy (Verified 03/20/22 14:15) Hiveslevofloxacin [From Levaquin] Adverse Reaction (Verified 03/20/22 14:15) Nauseametronidazole [From Flagyl] Adverse Reaction (Verified 03/20/22 14:15) Nausea Medications acetaminophen 325 mg tablet 650 mg PO Q6H PRN PRN pain 12/07/17 [Rx Confirmed 03/20/22] cholecalciferol (vitamin D3) 25 mcg (1,000 unit) tablet 1,000 unit PO DAILY 03/25/20 [History Confirmed 03/20/22] aspirin 81 mg tablet,delayed release 81 mg PO DAILY 01/31/22 [History Confirmed 03/20/22] atenolol 25 mg tablet 25 mg PO DAILY 01/31/22 [History Confirmed 03/20/22] atorvastatin 40 mg tablet 40 mg PO QHS 01/31/22 [History Confirmed 03/20/22] calcium carbonate 600 mg-vitamin D3 5 mcg (200 unit) capsule (Calcium 600 + D(3)) 1 cap PO DAILY 01/31/22 [History Confirmed 03/20/22] ibuprofen 600 mg tablet 600 mg PO Q8H PRN 01/31/22 [History Confirmed 03/20/22] multivitamin 1 tab PO DAILY supplement 01/31/22 [History Confirmed 03/20/22] vitamin E (dl, acetate) 90 mg (200 unit) capsule 90 mg PO DAILY 01/31/22 [History Confirmed 03/20/22] wheat dextrin 3 gram/3.5 gram oral powder packet (Benefiber Clear Sugar Free(dextrin)) 1.5 g PO TID 01/31/22 [History Confirmed 03/20/22] omega-3 fatty acids-fish oil 300 mg-1,000 mg capsule 1 cap PO .Qwk 02/11/22 [ History Confirmed 03/20/22] [facility] Medical History?(Updated 03/20/22 @ 14:[address] Abner Reid MD) Acute left-sided thoracic back pain Allergic rhinitis Benign meningioma of brain Benign neoplasm of colon Benign neoplasm of meninges Blood in stool Carotid artery stenosis Constipation Diarrhea Hemorrhoids Hyperlipidemia IBS (irritable bowel syndrome) Incontinence of feces Irregular heart rhythm Left Achilles tendinitis Osteopenia Palpitations Personal history of colonic polyps Surgical History?(Updated 03/20/22 @ 14:13 by Ivana Pan) History of colectomy History of ERCP (~03/2018) History of hemorrhoidectomy History of hysterectomy History of removal of ovarian cyst History of spinal fusion Hx of cholecystectomy (~03/2018) Family History? Mother Breast cancer Thyroid disorderAunt Breast cancer Social History? Smoking Status:? Never smoker alcohol intake:? never substance use type:? does not use caffeine:? Yes (occasionally) Type: carbonated beverages HPI HPI HPI: 76-year-old female presents with concerns regarding a lump in the right upper quadrant.? I have reviewed a previous CT scan of her set was obtained 03/25/2020.? Although read radiologist did not comment there appears to be a ventral hernia in the right epigastric area at that time.? A previous office note dated November 10, 2018 per Marielos Mehta recants that the patient had just returned from [place] where she had had a gallbladder attack and underwent an ERCP and a cholecystectomy while in [place].? She noted the swollen tissue in the right upper quadrant at that time.? The patient's also had a hand assisted right hemicolectomy due to bowel ischemia status post aggressive treatment of multiple telegectasias. The patient presents today concerned about 3 different items.? The lump in the right epigastric area.? It has been increasing in size and is intermittently mildly tender.? She also has concerns about some intermittent darker stools.? Sometimes they will be darker sometimes orange.? And then finally for the couple days in row she was having some numbness of the right hand when she awakens.? Now she has had 3 recent gamma knife treatments for a meningioma so is she is not sure whether the hand numbness and temporary weakness is related to that or something else.? But it is only after she awakens from rest ROS General General: No weight change, appetite, fatigue, colon cancer, breast cancer or weakness HEENT HEENT: No difficulty swallowing, eye injury, eye surgery, swollen glands or hoarseness Endo Endocrine: No thyroid disease, diabetes mellitus, thyroid cancer, Hair loss, heat intolerance or cold intolerance Skin Skin: No rash or changing moles Breast Breast: No left breast lump, right breast lump, nipple discharge, breast pain, abnormal mammogram, abnormal US or breast enlargement [facility] Musculoskeletal: No back problems, arthritis, rheumatoid arthritis, gout or joint pain Cardio Cardiovascular: No murmur, pacemaker, heart disease, atrial fibrillation, high blood pressure, heart attack, heart stent, palpitations, shortness of breat with exertion or chest pain Psych Psychiatric: No depression, anxiety or hearing voices Resp Respiratory: No shortness of breath, No sleep apnea, No cough, No COPD, No asthma, No emphysema and No wheezing Gastro Gastrointestinal: No abdominal pain, No nausea or vomiting, No diarrhea, No constipation, Yes blood in stool, No acid reflux, Yes hemorrhoids, No ulcers, No gallbladder problem and Yes black,tarry stools Additional Details: Black, Tarry stools pt states Sometimes Jose Hematologic: No blood thinners, No blood disorders, No bleeding, No anemia and No blood clots Neuro Neurologic: No weakness Exam Const General: cooperative, healthy appearing, comfortable and no acute distress [facility] Head: normal to inspection Eyes General: appearance normal, both eyes and all related structures Neck Neck: normal visual inspection Chest Chest palpation & inspection: normal inspection of the chest Resp Effort & Inspection: normal respiratory effort Auscultation: clear to auscultation bilaterally Cardio Rate: regular rate Rhythm: regular rhythm GI Other: Right epigastrium there is a small healed 5 mm incision then right lateral to that there is a fibrofatty soft tissue 3.5 cm mass deeply fixed no erythema not tender.? She is got a well-healed supraumbilical vertical incision and a well- healed infraumbilical incision.? No fascial defects appreciated.? Abdomen is otherwise soft and nontender.? Bowel sounds present unremarkable. [facility] Cervical Spine: normal cervical lordosis Skin General: no rashes or lesions noted Neuro General: patient alert, patient awake and patient oriented x3 Extrem General: no calf tenderness Psych Appearance: grossly normal Assessment and Plan Assessment and Plan (1) Recurrent incisional hernia with incarceration: ?Status:?Acute (2) Carpal tunnel syndrome: ?Status:?Acute (3) Melanotic stools: ?Status:?Acute Plan I believe that the right upper epigastric soft tissue mass is likely consistent with a ventral incisional hernia with incarcerated fibrofatty tissue related to the port site either from the laparoscopic cholecystectomy or from the laparoscopic hand-assisted right colectomy.? As noted I believe I could see it back on a CT scan in 2019.? I have offered her a direct approach to this in the operating room as an outpatient with an excision of this soft tissue mass and then likely repair of the hernia with possible onlay mesh. Regarding the patient's intermittent right hand numbness I suspect that this is carpal tunnel syndrome.? It is not constant or persistent enough to be related to her gamma knife cerebral therapy.? I have recommended to her that she consider utilizing a wrist splint at night to see if that helps resolve the episodes. Regarding the patient's episodes of intermittent darker stools I recommend to her that we obtain a stool card for analysis.? I also recommend to her that I obtain records of her most recent laboratory through the [facility].? We will request copy.? The patient states that she was told that her recent lab work was normal. At this time the patient states that its time for her to go to [place] for the winter.? She states she will recontact us in the spring to have the suspected hernia repaired.? She states that she will pursue this to a stool card. I appreciate the opportunity of assisting with her surgical care Copy: Dr. Gavin Reid M.D., F.A.C.S Because of the melanotic Hemoccult positive stools the patient presents for a combined esophagogastroduodenoscopy with possible biopsy and colonoscopy with possible biopsy or polypectomy as indicated. She is aware of the technique, benefit, risk, alternatives. She has had an opportunity to ask and have questions answered. We will proceed as noted. Abner Reid M.D., F.A.C.S.
[2022-03-29 09:10] VITALS: BP 117/62; PULSE 69; RESP 16; TEMP 36.5; O2SAT 100; BMI 23.1
[2022-03-29] MEDS: Lactated Ringers 1,000 ML 15 ML IV (09:14)
--- NOTE | 2022-03-29 09:45 | IMM_PTH ---
PATIENT: BENEDICT LUCAS LOC: EN U#:[id number] AGE/SX: 76/F ROOM: RE03/29/[address]: Dr. Abner Reid MD : 1945 BED: DIS: 03/29/2022 SPEC #: [id number] RECD: 03/29/22 12:36 STATUS: JHONNY REAdan #: [id number] BRIGIDA: 03/29/22 09:[address]: Abner Reid DEPT: IMMUNOHISTOCHEMISTRY RECD BY: Jodie Miller ENTERED: 03/29/22 12:37 SP TYPE: IMMUNO OTHR DR: Dr. Gavin Tran MD Tissues: B - Stomach, NOS Procedures: H Pylori (initial) PHYSICIAN & INSTITUTION [place] [id number] SPECIMEN INFORMATION: Tissue Source: B ? Antral biopsy Clinical Info: Melanotic stools, recurrent incisional hernia with incarceration Specimen Number: [id number] CPT code: 54470 METHODOLOGY: Deparaffinized sections of prefer/formalin-fixed tissue or PAP/DQ stained slides are incubated with monoclonal/polyclonal antibodies/oligonucleotide probes. Localization is made via biotin free immunoperoxidase method. Appropriate controls are performed and reacted as expected. Results on target cell population are indicated in the following table: RESULTS: ANTIBODY / CLONE RESULT Block B H Pylori (polyclonal) negative These tests were developed and their performance characteristics determined by [facility]. They may not have been cleared or approved by the U.S. Food and Drug Administration. The FDA has determined that such clearance or approval is not necessary. The above immunohistochemical/dualISH markers are ordered and reviewed by the Pathologist. INTERPRETATION: B. Antral biopsy: Negative for Helicobacter pylori organisms. SJ:quincy 04/01/2022
--- NOTE | 2022-03-29 09:45 | EGD_PTH ---
PATIENT: BENEDICT LUCAS LOC: EN U#:[id number] AGE/SX: 76/F ROOM: RE03/29/[address]: Dr. Abner Reid MD : 1945 BED: DIS: 03/29/2022 SPEC #: [id number] RECD: 03/29/22 10:52 STATUS: JHONNY NUNES #: [id number] BRIGIDA: 03/29/22 09:[address]: Abner Reid DEPT: SURGICAL PATHOLOGY RECD BY: Sherice Tan ENTERED: 03/29/22 11:50 SP TYPE: EGD BIOPSY [facility] DR: Dr. Gavin Tran MD Tissues: A - Duodenum, NOS B - Gastric mucous membrane C - Stomach, NOS D - Esophagus, NOS Procedures: Special Stain Group II Surgery Specimen Level IV Alcian Blue/PAS (control) HEADER OPERATION: Colonoscopy, EGD (MAC) and biopsy PRE-OP DIAGNOSIS: Melanotic stools, recurrent incisional hernia with incarceration TISSUE SUBMITTED: A ? Duodenum biopsy, B ? Antral biopsy, H. pylori, C ? Greater curvature polyp, D ? Gastroesophageal junction biopsy MICROSCOPIC DIAGNOSIS A. Duodenum, biopsy: A fragment of duodenal mucosa with Shan gland hyperplasia. B. Antral biopsy: Mild gastritis. See microscopic description and comment. C. Greater curvature polyp, biopsy: Fundic gland polyp. D. Gastroesophageal junction, biopsy: A fragment of gastroesophageal mucosa with chronic inflammation. Intestinal metaplasia (goblet cell metaplasia) not identified. See comment. SJ:quincy 04/01/2022 COMMENT B. The results of immunohistochemistry for Helicobacter pylori will be reported separately ([id number]). C. Alcian blue/PAS stain with matched control is used in the evaluation of the specimen. MICROSCOPIC DESCRIPTION Slides are reviewed. B. The specimen shows fragments of gastric mucosa with chronic inflammatory cell infiltrates in the lamina propria consisting of lymphocytes and plasma cells, consistent with mild chronic gastritis. GROSS DESCRIPTION A - Received in fixative is one container labeled with the patient's name and designated duodenal biopsy. The specimen consists of one irregular fragment of light lipscomb soft tissue that measures 0.5 x 0.3 x 0.1 cm. The specimen is totally submitted in one cassette. B - Received in fixative is one container labeled with the patient's name and designated antral biopsy. The specimen consists of one irregular fragment of light lipscomb soft tissue that measures 0.7 x 0.2 x 0.1 cm. The specimen is totally submitted in one cassette. C - Received in fixative is one container labeled with the patient's name and designated greater curvature polyp. The specimen consists of one irregular fragment of light lipscomb soft tissue that measures 0.7 x 0.5 x 0.1 cm. The specimen is totally submitted in one cassette. D - Received in fixative is one container labeled with the patient's name and designated GE junction biopsy. The specimen consists of one irregular fragment of light lipscomb soft tissue that measures 0.3 x 0.3 x 0.1 cm. The specimen is totally submitted in one cassette. / AM:quincy 03/29/2022 TC:3 CPT: 47757 x4, 46505
[2022-03-29 10:35] VITALS: BP 117/62; BP 74/48; PULSE 70; RESP 14; TEMP 36.4; O2SAT 99
--- NOTE | 2022-03-29 10:36 | OP.EGD_ITS ---
Patient Name: Fannie Avalos Procedure Date: 03/29/2022 10:01 AM Date of : 1945 Age: 76 Procedure: Upper GI endoscopy Indications: Hemocult positive stool Providers: Abner Reid MD Referring MD: Gavin Tran Medicines: See the Anesthesia note for documentation of the administered medications Complications: No immediate complications. Procedure: Pre-Anesthesia Assessment: - Prior to the procedure, a History and Physical was performed, and patient medications and allergies were reviewed. The patient's tolerance of previous anesthesia was also reviewed. The risks and benefits of the procedure and the sedation options and risks were discussed with the patient. All questions were answered, and informed consent was obtained. Prior Anticoagulants: The patient has taken no previous anticoagulant or antiplatelet agents. ASA Grade Assessment: II - A patient with mild systemic disease. After reviewing the risks and benefits, the patient was deemed in satisfactory condition to undergo the procedure. After obtaining informed consent, the endoscope was passed under direct vision. Throughout the procedure, the patient's blood pressure, pulse, and oxygen saturations were monitored continuously. The pediatric colonoscope was introduced through the mouth, and advanced to the second part of duodenum. The upper GI endoscopy was accomplished without difficulty. The patient tolerated the procedure well. Scope In: 10:11:15 AM Scope Out: 10:19:34 AM Total Procedure Duration Time 0 hours 8 minutes 19 seconds Findings: Esophagitis with no bleeding was found 41 cm from the incisors. Biopsies were taken with a cold forceps for histology. A small hiatal hernia was present. Diffuse moderate inflammation characterized by linear erosions was found in the gastric antrum. Biopsies were taken with a cold forceps for histology. Diffuse mildly erythematous mucosa without active bleeding and with no stigmata of bleeding was found in the duodenal bulb. Biopsies were taken with a cold forceps for histology. Multiple pedunculated and sessile polyps with no bleeding and no stigmata of recent bleeding were found on the greater curvature of the stomach. The polyp was removed with a cold biopsy forceps. Resection and retrieval were complete. Impression: - Reflux esophagitis. Biopsied. - Small hiatal hernia. - Acute chronic gastritis. Biopsied. - Erythematous duodenopathy. Biopsied. Suspect gastritis as a source of melena and Hemoccult positive stool Recommendation: - Discharge patient to home. - Resume previous diet. - Continue present medications. - Use Prilosec (omeprazole) 20 mg PO daily. Procedure Code(s): --- Professional --- 91743, Esophagogastroduodenoscopy, flexible, transoral; with biopsy, single or multiple Diagnosis Code(s): --- Professional --- K21.0, Gastro-esophageal reflux disease with esophagitis K44.9, Diaphragmatic hernia without obstruction or gangrene K29.00, Acute gastritis without bleeding K29.50, Unspecified chronic gastritis without bleeding K31.89, Other diseases of stomach and duodenum CPT copyright 2017 [employer]. All rights reserved. The codes documented in this report are preliminary and upon tile edger review may be revised to meet current compliance requirements. Abner Reid MD 03/29/2022 10:36:06 AM This report has been signed electronically. Number of Addenda: 0 Note Initiated On: 03/29/2022 10:01 AM
--- NOTE | 2022-03-29 10:36 | OP.CCLET_ITS ---
03/29/2022 Gavin Tran [address] [place] [address] Re : Upper GI endoscopy procedure for Fannie Avalos Dear Dr. Tran This procedure was performed on Tuesday, March 29, 2022. My impressions and recommendations are as follows: Impressions : - Reflux esophagitis. Biopsied. - Small hiatal hernia. - Acute chronic gastritis. Biopsied. - Erythematous duodenopathy. Biopsied. Suspect gastritis as a source of melena and Hemoccult positive stool Recommendations : - Discharge patient to home. - Resume previous diet. - Continue present medications. - Use Prilosec (omeprazole) 20 mg PO daily. My findings are described in the full procedure note, which is enclosed. If I can be of further assistance, please feel free to contact me at Doctor phone number(s): Work: . Sincerely, Abner Reid MD 03/29/2022 10:36:06 AM This report has been signed electronically.
[2022-03-29 10:40] VITALS: BP 117/62; BP 88/52; PULSE 71; RESP 16; O2SAT 98
--- NOTE | 2022-03-29 10:44 | OP.COLON_ITS ---
Patient Name: Fannie Avalos Procedure Date: 03/29/2022 10:19 AM Date of : 1945 Age: 76 Procedure: Colonoscopy Indications: Hemocult positive stool Providers: Abner Reid MD Referring MD: Gavin Tran Medicines: See the Anesthesia note for documentation of the administered medications Patient Profile: Last Colonoscopy: November 2017. Complications: No immediate complications. Procedure: Pre-Anesthesia Assessment: - Prior to the procedure, a History and Physical was performed, and patient medications and allergies were reviewed. The patient's tolerance of previous anesthesia was also reviewed. The risks and benefits of the procedure and the sedation options and risks were discussed with the patient. All questions were answered, and informed consent was obtained. Prior Anticoagulants: The patient has taken no previous anticoagulant or antiplatelet agents. ASA Grade Assessment: II - A patient with mild systemic disease. After reviewing the risks and benefits, the patient was deemed in satisfactory condition to undergo the procedure. After I obtained informed consent, the scope was passed under direct vision. Throughout the procedure, the patient's blood pressure, pulse, and oxygen saturations were monitored continuously. The pediatric colonoscope was introduced through the anus and advanced to the ileocolonic anastomosis. The colonoscopy was performed without difficulty. The patient tolerated the procedure well. The quality of the bowel preparation was adequate to identify polyps. Ileocolonic anastomosis were photographed. Scope In: 10:21:02 AM Scope Withdrawal Time 0 hours 6 minutes 17 seconds Scope Out: 10:29:32 AM Total Procedure Duration Time 0 hours 8 minutes 30 seconds Findings: Hemorrhoids were found on perianal exam. There was evidence of a prior functional end-to-end ileo-colonic anastomosis in the ascending colon. This was patent and was characterized by healthy appearing mucosa. Scattered diverticula were found in the entire colon. Impression: - Hemorrhoids found on perianal exam. - Patent functional end-to-end ileo-colonic anastomosis, characterized by healthy appearing mucosa. No residual telemetry contagious since previous resection - Diverticulosis in the entire examined colon. - No specimens collected. No evidence of any bleeding Recommendation: - Discharge patient to home. - Resume previous diet. - Continue present medications. - Repeat colonoscopy is not recommended due to current age (66 years or older) for screening purposes. Procedure Code(s): --- Professional --- 81833, Colonoscopy, flexible; diagnostic, including collection of specimen(s) by brushing or washing, when performed (separate procedure) Diagnosis Code(s): --- Professional --- K64.9, Unspecified hemorrhoids Z98.0, Intestinal bypass and anastomosis status K57.30, Diverticulosis of large intestine without perforation or abscess without bleeding CPT copyright 2017 [employer]. All rights reserved. The codes documented in this report are preliminary and upon seed potato cutter review may be revised to meet current compliance requirements. Abner Reid MD 03/29/2022 10:43:45 AM This report has been signed electronically. Number of Addenda: 0 Note Initiated On: 03/29/2022 10:19 AM
[2022-03-29 10:45] VITALS: BP 101/52; BP 117/62; PULSE 74; RESP 16; O2SAT 99
--- NOTE | 2022-03-29 10:45 | OP.CCLET_ITS ---
03/29/2022 Gavin Tran [address] [place] [address] Re : Colonoscopy procedure for Fannie Avalos Dear Dr. Tran This procedure was performed on Tuesday, March 29, 2022. My impressions and recommendations are as follows: Impressions : - Hemorrhoids found on perianal exam. - Patent functional end-to-end ileo-colonic anastomosis, characterized by healthy appearing mucosa. No residual telemetry contagious since previous resection - Diverticulosis in the entire examined colon. - No specimens collected. No evidence of any bleeding Recommendations : - Discharge patient to home. - Resume previous diet. - Continue present medications. - Repeat colonoscopy is not recommended due to current age (66 years or older) for screening purposes. My findings are described in the full procedure note, which is enclosed. If I can be of further assistance, please feel free to contact me at Doctor phone number(s): Work: . Sincerely, Abner Reid MD 03/29/2022 10:43:45 AM This report has been signed electronically.
[2022-03-29 10:50] VITALS: BP 105/56; BP 117/62; PULSE 71; RESP 16; TEMP 36.2; O2SAT 92
[2022-03-29 11:33] VITALS: BP 117/62
== END 2022-03-29 11:45 | disposition home or self-care (01) ==
LOC: EN 08:40 → AC 08:41
PROVIDERS: PCP Internal Medicine; Referring Provider Internal Medicine; Visit Provider Surgery
PROC: 0DJD8ZZ Inspection of Lower Intestinal Tract, Via Natural or Artificial Opening Endoscopic (ICD-10-PCS; CPT 45378; principal; 2022-03-29 09:40)
DX: K44.9 Diaphragmatic hernia without obstruction or gangrene (principal); K21.00 Gastro-esophageal reflux disease with esophagitis, without bleeding; K57.30 Diverticulosis of large intestine without perforation or abscess without bleeding; K29.00 Acute gastritis without bleeding; R19.06 Epigastric swelling, mass or lump; K64.9 Unspecified hemorrhoids; K29.50 Unspecified chronic gastritis without bleeding; K31.89 Other diseases of stomach and duodenum; Z98.0 Intestinal bypass and anastomosis status
CPT/HCPCS: 45378; 43239; 88305; 88313; 88342; J7120; J2405

== ENCOUNTER → 2023-02-23 | Outpatient (CLI) | payer MEDICARE, SELFPAY | END | disposition home or self-care (01) | LOC: LABSPEC 09:20 | PROVIDERS: PCP Internal Medicine; Visit Provider Physician Assistant | DX: K92.1 Melena (principal) | CPT/HCPCS: 82274 ==

== ENCOUNTER 2023-03-10 10:00 | Outpatient (RCR) | payer MEDICARE, SELFPAY ==
--- NOTE | 2023-02-17 13:23 | HP.PTEVAL_ITS ---
Patient's Visit Information Visit Information Visit Information: BENEDICT LUCAS is a 77 year old F referred to Physical Therapy by Dr. Jordy Steel DO with a diagnosis of LUMBAR STENOSIS WITH NEUROGENIC CLAUDICATION. Date of Evaluation: 02/17/23 Physical Therapist: Peter Toth, PT, Cert MDT, OCS Visit Plan Frequency: 2x /Week Duration: 4 Weeks Plan: PT INTERVTIONS DLS ,POSTURAL EX'S ,LE FLEXABILITY, AND MODALTIES Subjective Subjective: This 77 y/o female presents to physical therapy with lumbar stenosis. Patient has had lumbar pain for ~ 1 year . Patient symptoms progressively worsen. Patient has had lumbar fusion L5-S1 2010. Patient symptoms where unable to manage . Pain located symmetrical lumbar . Patient had x-rays stenosis. Henrik mmended PT. Aggravating factors twisting/bending/lifting and walking/standing. Alleviating factors sitting ,leaning on cart when shopping and rest. Denies paresthesia/tingling. Patient pain affects sleeping. Bowel/bladder -. Coughing/sneezing-. Patient condition affects QOL and housework tasks Patient goals have no pain. SOCIAL: . VOCATION: retired Pain Bilateral Back: Pain Intensity (Out of 10): 4 Pain Intensity Range: 10 Objective Objective: POSTURE: mild forward posture NEURO: denies paresthesia/tingling ,reflexes L3-4,L4-5,L5-S1 1/3 PALAPTION: tender SI/LS SYMMTRIES: align LUMBAR ROM: flexion mod loss ,extension ,mod loss ,side glides mod loss FLEXABLITY: hamstrings min/mod tight MMT: quads/hams 4/5 ,4-/5 ,ankle 5/5 FLEXABILITY: hamstrings min/mod Special Tests L/S Slump test left side: Negative L/S Slump test right side: Negative L/S Left Straight Leg Raise: Negative L/S Right Straight Leg Raise: Negative Lumbar Standing: Flexion - Mechanical Response: No effect Lumbar Standing: Flexion - Symptoms During Testing: Increases Lumbar Standing: Flexion - Symptoms After Testing: No worse Lumbar Standing: Extension - Mechanical Response: No effect Lumbar Standing: Extension - Symptoms During Testing: Increases Lumbar Standing: Extension - Symptoms After Testing: No effect Lumbar Standing: Right Side Glides - Mechanical Response: No effect Lumbar Standing: Right Side Madelia - Symptoms During Testing: No effect Lumbar Standing: Right Side Madelia - Symptoms After Testing: No effect Lumbar Standing: Left Side Madelia - Mechanical Response: No effect Lumbar Standing: Left Side Madelia - Symptoms During Testing: No effect Lumbar Standing: Left Side Madelia - Symptoms After Testing: No effect Balance/Special Test Scores Oswestry Low Back Score: 23 Goals Goal 1:: Patient to be I with HEP for lumbar Goal Time Frame: 4-6 Weeks Goal 2:: Patient to demonstrate 50% improvement with decrease pain and improved function Goal Time Frame: 4-6 Weeks Goal 3:: Patient to improve lumbar ROM to improve function of recovery to tie shoes Goal Time Frame: 4-6 Weeks Goal 4:: Patient to improve back oswestry score by 5 points to improve QOL and function Goal Time Frame: 4-6 Weeks Goal 5:: Patient be able to stand and walk further distances 20 mins for housework tasks Goal Time Frame: 4-6 Weeks Rehabilitation Potential Physical Therapy Diagnosis: This patient has lumbar stenosis with pain lumbar worse with standing and walking better with sitting ,symptoms worse with positioning and movement thus will benefit from skilled PT Rehabilitation Potential: Good Anticipated Interventions Patient/Client Instruction: Educate patient on: Condition and Plan of Care For the Purpose of:: To decrease pain, To increase ROM, To improve muscle pe rformance and motor function, To improve ability to perform ADL's, To increase tolerance to activity/condition/position, To improve ability of physical actions for home/community/work/leisure, To improve health of tissue, To decrease soft tissue restriction, To increase flexibility/ROM and To prevent re-injury Therapeutic Exercise to Include: Strength training, Body mechanics, Postural training, Flexibilty training and Dynamic Lumbar Stabilization For the Purpose of:: To decrease pain, To increase ROM, To improve muscle performance and motor function, To increase tolerance to activity/condition/position, To improve ability of physical actions for home/community/work/leisure, To improve health of tissue, To decrease soft tissue restriction and To increase flexibility/ROM TENS: Yes IF ES: Yes Cryotherapy (ice pack, ice massage): Yes Thermo therapy (hot pack): Yes Ultrasound (thermal/non thermal): Yes For the Purpose of:: To decrease pain, To improve nutrient delivery to tissue, To increase oxygenation perfusion, To improve health of tissue and To decrease soft tissue restriction Text: Thank you for the opportunity to evaluate your patient. For Medicare and Medicare HMO plans, please review the plan of care and approve it. It will need to be FAXED BACK to us at [phone] for Medicare purposes. For Medicare only, by signing this I certify the plan of care. Please let me know if there are questions or concerns regarding this plan of care. Physician Signature: Date:___
== END 2023-03-10 19:00 | disposition home or self-care (01) ==
LOC: PT 10:00
PROVIDERS: PCP Internal Medicine; Visit Provider Orthopaedic Surgery
DX: M48.062 Spinal stenosis, lumbar region with neurogenic claudication (principal)
CPT/HCPCS: 97110; 97162; 97530

== ENCOUNTER 2023-04-01 05:58 | Day surgery (SDC) | payer MEDICARE, SELFPAY ==
[2023-03-10 11:11] LABS: Absolute Lymphocyte Count 1.22 X10^3/uL (0.83-4.51); Absolute Neutrophil Count 3.8 X10^3/uL (2.0-7.7); Basophil# 0.02 X10^3/uL; Basophil% 0.3 % (0-1); Eosinophil# 0.31 X10^3/uL; Eosinophils% 5.3 % (0-5); Hematocrit 38.2 % (37-47); Lymphocyte # 1.22 X10^3/ul (0.83-4.51); Lymphocyte % 20.8 % (19-41); Mean Corpuscular Hgb 33.9 pg (27.0-32.0); Mean Corpuscular Volume 99.5 fL (81-99); Mean Platelet Vol. 9.6 fl (6.2-12.0); Monocyte# 0.49 X10^3/uL; Monocyte% 8.4 % (0-10); NRBC Flagged by Analyzer 0 % (0-5); Neutrophil # 3.79 X10^3/uL (2.7-7.7); Neutrophil % 64.7 % (47-70); Platelet Count 265 K/mm3 (150-450); RBC Distribution Width CV 11.6 % (11.6-14.6); Red Blood Count 3.84 M/mm3 (4.2-5.4); White Blood Count 5.9 K/mm3 (4.4-11.0)
--- NOTE | 2023-03-31 | IMM_PTH ---
PATIENT: BENEDICT LUCAS LOC: EN U#:[id number] AGE/SX: 77/F ROOM: RE04/01/[address]: Dr. Abner Reid MD : 1945 BED: DIS: 04/01/2023 SPEC #: [id number] RECD: 04/01/23 09:58 STATUS: JHONNY REAdan #: [id number] BRIGIDA: 03/31/23 00:[address]: Abner Reid DEPT: IMMUNOHISTOCHEMISTRY RECD BY: Kinjal bOando ENTERED: 04/01/23 09:58 SP TYPE: IMMUNO OTHR DR: Dr. Gavin Tran MD Tissues: Gastric mucous membrane Procedures: H Pylori (initial) PHYSICIAN & INSTITUTION [place] [id number] SPECIMEN INFORMATION: Tissue Source: A- Antrum biopsy Clinical Info: Melanotic stools Specimen Number: [id number] CPT code: 66954 METHODOLOGY: Deparaffinized sections of prefer/formalin-fixed tissue or PAP/DQ stained slides are incubated with monoclonal/polyclonal antibodies/oligonucleotide probes. Localization is made via biotin free immunoperoxidase method. Appropriate controls are performed and reacted as expected. Results on target cell population are indicated in the following table: RESULTS: ANTIBODY / CLONE RESULT Block A H Pylori (polyclonal) negative These tests were developed and their performance characteristics determined by [facility]. They may not have been cleared or approved by the U.S. Food and Drug Administration. The FDA has determined that such clearance or approval is not necessary. The above immunohistochemical/dualISH markers are ordered and reviewed by the Pathologist. INTERPRETATION: A. Antrum, biopsy: Negative for Helicobacter pylori organisms. AM:quincy 04/04/2023
[2023-04-01] VITALS (8 sets, daily range): BP systolic 77–124; BP diastolic 37–67; PULSE 62–75; RESP 16–18; TEMP 36.1–36.2; O2SAT 95–100; BMI 24.1
--- NOTE | 2023-04-01 | GASB_PTH ---
PATIENT: BENEDICT LUCAS LOC: EN U#:[id number] AGE/SX: 77/F ROOM: RE04/01/[address]: Dr. Abner Reid MD : 1945 BED: DIS: 04/01/2023 SPEC #: [id number] RECD: 04/01/23 08:00 STATUS: JHONNY NUNES #: [id number] BRIGIDA: 04/01/23 00:[address]: Abner Reid DEPT: SURGICAL PATHOLOGY RECD BY: Manolo Trinidad ENTERED: 04/01/23 09:15 SP TYPE: Gastric Bx OTHR DR: Dr. Gavin Tran MD Tissues: A - Gastric mucous membrane B - Stomach, NOS C - Esophageal mucous membrane Procedures: Special Stain Group II Surgery Specimen Level IV Alcian Blue/PAS (control) HEADER OPERATION: EGD with biopsies PRE-OP DIAGNOSIS: Melanotic stools TISSUE SUBMITTED: A - Antrum biopsy, B - Greater curvature polyp biopsy, C - Distal esophagus MICROSCOPIC DIAGNOSIS A. Gastric antrum, biopsy: Chronic gastritis. See comment. B. Stomach, greater curvature polyp, biopsy: Fundic gland polyp. C. Distal esophagus, biopsy: Gastroesophageal junctional mucosa with chronic inflammation. No evidence of goblet cell metaplasia. See comment. AM:quincy 04/02/2023 COMMENT A. The results of immunohistochemistry for Helicobacter pylori will be reported separately ([id number]). C. Alcian blue/PAS stain with matched control supports the above diagnosis. MICROSCOPIC DESCRIPTION Slides are reviewed. GROSS DESCRIPTION A - Received in fixative is one container labeled with the patient's name and designated antrum biopsy. The specimen consists of one irregular fragment of light lipscomb soft tissue that measures 0.5 x 0.4 x 0.1 cm. The specimen is totally submitted in one cassette. B - Received in fixative is one container labeled with the patient's name and designated greater curvature polyp biopsy. The specimen consists of one irregular fragment of light lipscomb soft tissue that measures 0.3 x 0.3 x 0.1 cm. The specimen is totally submitted in one cassette. C - Received in fixative is one container labeled with the patient's name and designated distal esophagus biopsy. The specimen consists of two irregular fragments of light lipscomb soft tissue that in aggregate measure 0.6 x 0.3 x 0.1 cm. The specimen is totally submitted in one cassette. / SJ:rg 04/01/2023 TC:3 CPT: 95078 x3, 37976
--- NOTE | 2023-04-01 06:15 | HP.PCM_ITS ---
History and Physical Date of Admission: 04/01/23 Visit Reasons: POSITIVE COLOGUARD Chief Complaint: positive cologuard Lubricating Specialist Required: No Is patient in pain?: Yes (back ) Allergies clindamycin Allergy (Intermediate, Verified 02/26/23 14:09) nausea/vomitingsulfamethoxazole [From Bactrim] Allergy (Intermediate, Verified 02/26/23 14:09) nausea/vomitingtrimethoprim [From Bactrim] Allergy (Intermediate, Verified 02/26/23 14:09) nausea/vomitingGadolinium-MRI Contrast Medium Allergy (Verified 02/26/23 14:09) Hiveslevofloxacin [From Levaquin] Adverse Reaction (Verified 02/26/23 14:09) Nauseametronidazole [From Flagyl] Adverse Reaction (Verified 02/26/23 14:09) Nausea Medications cholecalciferol (vitamin D3) 25 mcg (1,000 unit) tablet 1,000 unit PO DAILY 03/25/20 [History Confirmed 02/26/23] aspirin 81 mg tablet,delayed release 81 mg PO DAILY 01/31/22 [History Confirmed 02/26/23] atorvastatin 40 mg tablet 40 mg PO QHS 01/31/22 [History Confirmed 02/26/23] calcium carbonate 600 mg-vitamin D3 5 mcg (200 unit) capsule (Calcium 600 + D(3)) 1 cap PO DAILY 01/31/22 [History Confirmed 10/28/22] ibuprofen 600 mg tablet 600 mg PO Q8H PRN Pain 01/31/22 [History Confirmed 02/26/23] multivitamin 1 tab PO DAILY supplement 01/31/22 [History Confirmed 02/26/23] vitamin E (dl, acetate) 90 mg (200 unit) capsule 90 mg PO DAILY 01/31/22 [History Confirmed 02/26/23] omega-3 fatty acids-fish oil 300 mg-1,000 mg capsule 1 cap PO SA 02/11/22 [History Confirmed 02/26/23] omeprazole 20 mg capsule,delayed release 20 mg PO .QOD 10/02/22 [History Confirmed 02/26/23] wheat dextrin 3 gram/3.5 gram oral powder packet (Benefiber Clear Sugar Free(dextrin)) 3 g PO DAILY 10/02/22 [History Confirmed 02/26/23] carvedilol 3.125 mg tablet See Rx Instructions .Route .COMPLEX updated RX with new quantity #180 tabs 01/20/23 [Rx Confirmed 02/26/23] loratadine 10 mg tablet (Claritin) 10 mg PO DAILY 02/26/23 [History Confirmed 02/26/23] naproxen 500 mg tablet mg PO 02/26/23 [History Confirmed 02/26/23] [facility] Medical History (Updated 02/19/23 @ 14:01 by Marielos KABA, PA-C) Acute left-sided thoracic back pain Allergic rhinitis Anorectal pain Aortic regurgitation Benign meningioma of brain Benign neoplasm of colon Benign neoplasm of meninges Blood in stool Cardiology follow-up encounter Carotid artery stenosis Carpal tunnel syndrome Cecum perforation Change in bowel habit Constipation Diarrhea Epigastric abdominal pain Esophageal dysphagia Fecal occult blood test positive Fecal occult blood test positive Hemorrhoids High cholesterol History of echocardiogram History of IBS History of stress test Hyperlipidemia IBS (irritable bowel syndrome) Incontinence of feces Irregular heart rhythm Left Achilles tendinitis Melanotic stools Non-smoker Nonrheumatic aortic (valve) insufficiency Osteopenia Palpitations Personal history of colonic polyps Recurrent incisional hernia with incarceration RLQ abdominal pain Status post gamma knife treatment Wears glasses Surgical History History of colectomy History of ERCP (~03/2018) History of hemorrhoidectomy History of hysterectomy History of removal of ovarian cyst History of spinal fusion Hx of cholecystectomy (~03/2018) Family History Mother Breast cancer Thyroid disorderAunt Breast cancer Social History Smoking Status: Never smoker alcohol intake: never substance use type: does not use caffeine: Yes (occasionally) Type: carbonated beverages HPI HPI Surgical H&P: Yes HPI: Patient is a 77 y/o F I am following for melanotic stools. Patient notes approximately 6 weeks ago she noted her stools were darker in color. Patient Patient states she has been having normal bowel movements, whereas before she was constipated. Patient denies any bright red rectal bleeding. She denies true abdominal pain or discomfort. She notes intermittent loud abdominal gurgling. She can not attribute that to any specific food or activity she is doing. Patient notes she has been under some stress. Her and her are planning to travel to [place] for the winter soon. She is currently being treated with physical therapy for back pain. She is also taking naproxen for 2 days for the back pain. Patient also developed vertigo while at therapy her last session, so she is dealing with those effects. Patient is also a worrier on top of all the issues she is dealing with now. Patient had contacted our office approximately 2 weeks ago noting she was having darker stools. Patient notes she stopped her PPI at least 6 months ago as she was told it was not good to continue. Our office ordered occult blood test which returned positive. I had contacted the patient with testing results and recommended she restart her omeprazole 40 mg daily. An office appointment was made for further evaluation. Patient also notes she has been taking Pepto-Bismol for the abdominal gurgling and sometimes she has urgency with bowel movements. She notes taking Pepto-Bismol when her and her go out to dinner with friends, so she does not have any accidents. Patient's most recent EGD and colonoscopy was on 03/29/[address] Reid. Scopes were performed during that time due to melanotic stools. EGD findings were reflux esophagitis, small hiatal hernia, erythematous duodenum, acute chronic gastritis. No active bleeding noted. Suspect gastritis as the source of melena and Hemoccult positive stool. Colonoscopy findings were non-bleeding hemorrhoids, patent functional end-to-end ileo colonic anastomosis, scattered diverticula were found throughout the entire colon. No specimens were collected. Pathology for the EGD demonstrated duodenal mucosa with Shan gland hyperplasia, mild gastritis, fundic gland polyp, and GE mucosa with chronic inflammation. Patient has a history of a hand-assisted laparoscopic right colectomy by Dr. Reid on 12/03/17 following a cecal perforation from a colonoscopy, where multiple AVMs were treated. She also notes a previous sigmoid colectomy following what sounds like a volvulus. ROS General General: No weight change, appetite, fatigue, colon cancer, breast cancer or weakness HEENT HEENT: No difficulty swallowing, eye injury, eye surgery, swollen glands or hoarseness Endo Endocrine: No thyroid disease, diabetes mellitus, thyroid cancer, Hair loss, heat intolerance or cold intolerance Skin Skin: No rash or changing moles Breast Breast: No left breast lump, right breast lump, nipple discharge, breast pain, abnormal mammogram, abnormal US or breast enlargement Musc Musculoskeletal: Yes back problems; No arthritis, rheumatoid arthritis, gout or joint pain Cardio Cardiovascular: No murmur, pacemaker, heart disease, atrial fibrillation, high blood pressure, heart attack, heart stent, palpitations, shortness of breat with exertion or chest pain Psych Psychiatric: No depression, anxiety or hearing voices Resp Respiratory: No shortness of breath, No sleep apnea, Yes cough, No COPD, No asthma, No emphysema and No wheezing Gastro Gastrointestinal: Yes abdominal pain, No nausea or vomiting, No diarrhea, No constipation, Yes blood in stool, No acid reflux, Yes hemorrhoids, No ulcers, No gallbladder problem and Yes black,tarry stools Additional Details: Black, Tarry stools pt states Sometimes Jose Hematologic: No blood thinners, No blood disorders, No bleeding, No anemia and No blood clots Neuro Neurologic: No system reviewed and no additional complaints, except as documented, No as per HPI, No abnormal gait, No abnormal hearing, No abnormal movements, No abnormal speech, No behavioral changes, No burning sensations, No confusion, No convulsions, No disequilibrium, No dizziness, No localized weakness, No frequent falls, No headache(s), No lack of coordination, No loss of vision, No memory loss, Yes numbness, No other visual disturbances, No radicular pain, No restless legs, No sensory deficit, No syncope, Yes tingling, No tremor(s), No weakness and No other Exam Const General: cooperative, healthy appearing, comfortable and no acute distress HENMT Head: normal to inspection Eyes General: appearance normal, both eyes and all related structures Neck Neck: normal visual inspection Neck mass: No Resp Effort & Inspection: normal respiratory effort Auscultation: clear to auscultation bilaterally Cardio Rate: regular rate Rhythm: regular rhythm GI Inspection: normal to inspection Palpation: soft Auscultation: normal bowel sounds Musc Cervical Spine: normal cervical lordosis Skin General: no rashes or lesions noted Neuro General: no focal motor deficits and CN's II-XI intact bilaterally Extrem General: normal to inspection Psych Appearance: grossly normal Affect: normal affect Assessment and Plan Assessment and Plan (1) Melanotic stools: Status: Acute Plan: I have discussed this patient with Dr. Reid. Dr. Cebul will plan to perform an upper scope with possible biopsies. Procedure details, risks and benefits have been explained. I am recommending continuation of omeprazole 40 mg daily. Patient will hold her aspirin and fish oil for the procedure 5 days prior to the procedure. Patient has had the opportunity to ask and have questions answered. Patient verbally understands and agrees with the plan I have examined the patient and the H&P has been reviewed. There are no clinical changes since date of exam. Abner Reid M.D., F.A.C.S.
[2023-04-01] MEDS: Lactated Ringers 1,000 ML 15 ML IV (06:37)
--- NOTE | 2023-04-01 07:18 | OP.EGD_ITS ---
Patient Name: Fannie Avalos Procedure Date: 04/01/2023 6:59 AM Date of : 1945 Age: 77 Procedure: Upper GI endoscopy Indications: Melena Providers: Abner Reid MD Referring MD: Gavin Tran Medicines: See the Anesthesia note for documentation of the administered medications Complications: No immediate complications. Procedure: Pre-Anesthesia Assessment: - Prior to the procedure, a History and Physical was performed, and patient medications and allergies were reviewed. The patient's tolerance of previous anesthesia was also reviewed. The risks and benefits of the procedure and the sedation options and risks were discussed with the patient. All questions were answered, and informed consent was obtained. Prior Anticoagulants: The patient has taken no anticoagulant or antiplatelet agents. ASA Grade Assessment: II - A patient with mild systemic disease. After reviewing the risks and benefits, the patient was deemed in satisfactory condition to undergo the procedure. After obtaining informed consent, the endoscope was passed under direct vision. Throughout the procedure, the patient's blood pressure, pulse, and oxygen saturations were monitored continuously. The gastroscope was introduced through the mouth, and advanced to the second part of duodenum. The upper GI endoscopy was accomplished without difficulty. The patient tolerated the procedure well. Scope In: 7:06:35 AM Scope Out: 7:12:17 AM Total Procedure Duration Time 0 hours 5 minutes 42 seconds Findings: The examined esophagus was normal. The Z-line was regular and was found 41 cm from the incisors. Biopsies were taken with a cold forceps for histology. Diffuse mildly erythematous mucosa without bleeding was found in the gastric antrum. Biopsies were taken with a cold forceps for histology. Multiple sessile polyps with no bleeding and no stigmata of recent bleeding were found in the gastric fundus, in the gastric body and on the greater curvature of the stomach. The polyp was removed with a cold biopsy forceps. Resection and retrieval were complete. The examined duodenum was normal. A small hiatal hernia was present. Impression: - Normal esophagus. - Z-line regular, 41 cm from the incisors. Biopsied. - Erythematous mucosa in the antrum. Biopsied. - Multiple gastric polyps. Resected and retrieved. - Normal examined duodenum. Recommendation: - Telephone my office for pathology results in 1 week. - Continue present medications. Procedure Code(s): --- Professional --- 27589, Esophagogastroduodenoscopy, flexible, transoral; with biopsy, single or multiple Diagnosis Code(s): --- Professional --- K31.89, Other diseases of stomach and duodenum K31.7, Polyp of stomach and duodenum K92.1, Melena (includes Hematochezia) CPT copyright 2021 [employer]. All rights reserved. The codes documented in this report are preliminary and upon mannequin mounter review may be revised to meet current compliance requirements. Abner Reid MD 04/01/2023 7:18:12 AM This report has been signed electronically. Number of Addenda: 0 Note Initiated On: 04/01/2023 6:59 AM
--- NOTE | 2023-04-01 07:18 | OP.CCLET_ITS ---
04/01/2023 Gavin Tran [address] [place] [address] Re : Upper GI endoscopy procedure for Fannie Avalos Dear Dr. Tran This procedure was performed on Saturday, April 01, 2023. My impressions and recommendations are as follows: Impressions : - Normal esophagus. - Z-line regular, 41 cm from the incisors. Biopsied. - Erythematous mucosa in the antrum. Biopsied. - Multiple gastric polyps. Resected and retrieved. - Normal examined duodenum. Recommendations : - Telephone my office for pathology results in 1 week. - Continue present medications. My findings are described in the full procedure note, which is enclosed. If I can be of further assistance, please feel free to contact me at Doctor phone number(s): Work: . Sincerely, Abner Reid MD 04/01/2023 7:18:12 AM This report has been signed electronically.
[2023-04-01 07:45] LABS: Absolute Lymphocyte Count 1.04 X10^3/uL (0.83-4.51); Absolute Neutrophil Count 2.2 X10^3/uL (2.0-7.7); Basophil# 0.02 X10^3/uL; Basophil% 0.5 % (0-1); Eosinophil# 0.31 X10^3/uL; Eosinophils% 7.8 % (0-5); Hematocrit 32.1 % (37-47); Hemoglobin 10.7 g/dL (12.0-15.0); Lymphocyte # 1.04 X10^3/ul (0.83-4.51); Lymphocyte % 26.1 % (19-41); Mean Corp Hgb Conc 33.3 g/dL (32-36); Mean Corpuscular Hgb 33.3 pg (27.0-32.0); Mean Platelet Vol. 9.6 fl (6.2-12.0); Monocyte# 0.42 X10^3/uL; Monocyte% 10.6 % (0-10); NRBC Flagged by Analyzer 0 % (0-5); Neutrophil # 2.18 X10^3/uL (2.7-7.7); Neutrophil % 54.7 % (47-70); Platelet Count 189 K/mm3 (150-450); RBC Distribution Width CV 12.1 % (11.6-14.6); RBC Distribution Width SD 43.8 fl (35.1-43.9); Red Blood Count 3.21 M/mm3 (4.2-5.4)
== END 2023-04-01 08:11 | disposition home or self-care (01) ==
LOC: EN 05:59 → AC 06:00
PROVIDERS: PCP Internal Medicine; Referring Provider Internal Medicine; Visit Provider Surgery
PROC: 0DJ08ZZ Inspection of Upper Intestinal Tract, Via Natural or Artificial Opening Endoscopic (ICD-10-PCS; CPT 43235; principal; 2023-04-01 06:55)
DX: K29.50 Unspecified chronic gastritis without bleeding (principal); K44.9 Diaphragmatic hernia without obstruction or gangrene; K21.00 Gastro-esophageal reflux disease with esophagitis, without bleeding; K31.7 Polyp of stomach and duodenum; E78.00 Pure hypercholesterolemia, unspecified; K57.30 Diverticulosis of large intestine without perforation or abscess without bleeding; Z79.899 Other long term (current) drug therapy; Z98.0 Intestinal bypass and anastomosis status; Z79.82 Long term (current) use of aspirin; Z87.19 Personal history of other diseases of the digestive system
CPT/HCPCS: 43239; 36415; 85025; 88305; 88313; 88342; J7120; J2405

== ENCOUNTER 2023-04-22 07:40 | Day surgery (SDC) | payer MEDICARE, SELFPAY ==
--- NOTE | 2023-04-20 08:45 | COLBX_PTH ---
PATHOLOGY RESULTS PATIENT: BENEDICT LUCAS LOC: EN U#:[id number] AGE/SX: 77/F ROOM: RE04/22/[address]: Dr. Abner Reid MD : 1945 BED: DIS: 04/22/2023 SPEC #: [id number] RECD: 04/22/23 13:45 STATUS: JHONNY NUNES #: [id number] BRIGIDA: 04/20/23 08:[address]: Abner Reid DEPT: SURGICAL PATHOLOGY RECD BY: Kinjal Obando ENTERED: 04/22/23 13:45 SP TYPE: COLON BX [place] DR: Dr. Gavin Tran MD Tissues: Sigmoid colon biopsy Procedures: Surgery Specimen Level IV HEADER OPERATION: Colonoscopy, biopsy PRE-OP DIAGNOSIS: Melanotic stools TISSUE SUBMITTED: Rectosigmoid biopsy MICROSCOPIC DIAGNOSIS Rectosigmoid, biopsy: Focal acute colitis. See comment. SJ:quincy 04/23/2023 COMMENT Minimal cryptitis and glandular distortion is noted. Crypt abscesses or granulomas are not seen. Correlation with clinical, endoscopic findings and appropriate follow up are necessary. MICROSCOPIC DESCRIPTION Slides are reviewed. GROSS DESCRIPTION Received in fixative is one container labeled with the patient's name and designated rectosigmoid biopsy. The specimen consists of one irregular fragment of light lipscomb soft tissue that measures 0.4 x 0.3 x 0.1 cm. The specimen is totally submitted in one cassette. / SJ:quincy 04/22/2023 TC:2 CPT: 65342
[2023-04-22] VITALS (8 sets, daily range): BP systolic 89–131; BP diastolic 45–58; PULSE 53–69; RESP 14–18; TEMP 36.2–36.6; O2SAT 96–100; BMI 23.4
[2023-04-22] MEDS: Lactated Ringers 1,000 ML 15 ML IV (08:14)
--- NOTE | 2023-04-22 08:22 | PCM.HP.BLA ---
History and Physical Date of Admission: 04/22/23 Visit Reasons: POSITIVE COLOGUARD Chief Complaint: positive cologuard Precision Devices Inspector/Tester Required: No Is patient in pain?: Yes (back ) Allergies clindamycin Allergy (Intermediate, Verified 02/26/23 14:09) nausea/vomitingsulfamethoxazole [From Bactrim] Allergy (Intermediate, Verified 02/26/23 14:09) nausea/vomitingtrimethoprim [From Bactrim] Allergy (Intermediate, Verified 02/26/23 14:09) nausea/vomitingGadolinium-MRI Contrast Medium Allergy (Verified 02/26/23 14:09) Hiveslevofloxacin [From Levaquin] Adverse Reaction (Verified 02/26/23 14:09) Nauseametronidazole [From Flagyl] Adverse Reaction (Verified 02/26/23 14:09) Nausea Medications cholecalciferol (vitamin D3) 25 mcg (1,000 unit) tablet 1,000 unit PO DAILY 03/25/20 [History Confirmed 02/26/23] aspirin 81 mg tablet,delayed release 81 mg PO DAILY 01/31/22 [History Confirmed 02/26/23] atorvastatin 40 mg tablet 40 mg PO QHS 01/31/22 [History Confirmed 02/26/23] calcium carbonate 600 mg-vitamin D3 5 mcg (200 unit) capsule (Calcium 600 + D(3)) 1 cap PO DAILY 01/31/22 [History Confirmed 10/28/22] ibuprofen 600 mg tablet 600 mg PO Q8H PRN Pain 01/31/22 [History Confirmed 02/26/23] multivitamin 1 tab PO DAILY supplement 01/31/22 [History Confirmed 02/26/23] vitamin E (dl, acetate) 90 mg (200 unit) capsule 90 mg PO DAILY 01/31/22 [History Confirmed 02/26/23] omega-3 fatty acids-fish oil 300 mg-1,000 mg capsule 1 cap PO SA 02/11/22 [History Confirmed 02/26/23] omeprazole 20 mg capsule,delayed release 20 mg PO .QOD 10/02/22 [History Confirmed 02/26/23] wheat dextrin 3 gram/3.5 gram oral powder packet (Benefiber Clear Sugar Free(dextrin)) 3 g PO DAILY 10/02/22 [History Confirmed 02/26/23] carvedilol 3.125 mg tablet See Rx Instructions .Route .COMPLEX updated RX with new quantity #180 tabs 01/20/23 [Rx Confirmed 02/26/23] loratadine 10 mg tablet (Claritin) 10 mg PO DAILY 02/26/23 [History Confirmed 02/26/23] naproxen 500 mg tablet mg PO 02/26/23 [History Confirmed 02/26/23] [facility] Medical History (Updated 02/19/23 @ 14:01 by Marielos KABA, PA-C) Acute left-sided thoracic back pain Allergic rhinitis Anorectal pain Aortic regurgitation Benign meningioma of brain Benign neoplasm of colon Benign neoplasm of meninges Blood in stool Cardiology follow-up encounter Carotid artery stenosis Carpal tunnel syndrome Cecum perforation Change in bowel habit Constipation Diarrhea Epigastric abdominal pain Esophageal dysphagia Fecal occult blood test positive Fecal occult blood test positive Hemorrhoids High cholesterol History of echocardiogram History of IBS History of stress test Hyperlipidemia IBS (irritable bowel syndrome) Incontinence of feces Irregular heart rhythm Left Achilles tendinitis Melanotic stools Non-smoker Nonrheumatic aortic (valve) insufficiency Osteopenia Palpitations Personal history of colonic polyps Recurrent incisional hernia with incarceration RLQ abdominal pain Status post gamma knife treatment Wears glasses Surgical History History of colectomy History of ERCP (~03/2018) History of hemorrhoidectomy History of hysterectomy History of removal of ovarian cyst History of spinal fusion Hx of cholecystectomy (~03/2018) Family History Mother Breast cancer Thyroid disorderAunt Breast cancer Social History Smoking Status: Never smoker alcohol intake: never substance use type: does not use caffeine: Yes (occasionally) Type: carbonated beverages HPI HPI Surgical H&P: Yes HPI: Patient is a 77 y/o F I am following for melanotic stools. Patient notes approximately 6 weeks ago she noted her stools were darker in color. Patient Patient states she has been having normal bowel movements, whereas before she was constipated. Patient denies any bright red rectal bleeding. She denies true abdominal pain or discomfort. She notes intermittent loud abdominal gurgling. She can not attribute that to any specific food or activity she is doing. Patient notes she has been under some stress. Her and her are planning to travel to [place] for the winter soon. She is currently being treated with physical therapy for back pain. She is also taking naproxen for 2 days for the back pain. Patient also developed vertigo while at therapy her last session, so she is dealing with those effects. Patient is also a worrier on top of all the issues she is dealing with now. Patient had contacted our office approximately 2 weeks ago noting she was having darker stools. Patient notes she stopped her PPI at least 6 months ago as she was told it was not good to continue. Our office ordered occult blood test which returned positive. I had contacted the patient with testing results and recommended she restart her omeprazole 40 mg daily. An office appointment was made for further evaluation. Patient also notes she has been taking Pepto-Bismol for the abdominal gurgling and sometimes she has urgency with bowel movements. She notes taking Pepto-Bismol when her and her go out to dinner with friends, so she does not have any accidents. Patient's most recent EGD and colonoscopy was on 03/29/[address] Reid. Scopes were performed during that time due to melanotic stools. EGD findings were reflux esophagitis, small hiatal hernia, erythematous duodenum, acute chronic gastritis. No active bleeding noted. Suspect gastritis as the source of melena and Hemoccult positive stool. Colonoscopy findings were non-bleeding hemorrhoids, patent functional end-to-end ileo colonic anastomosis, scattered diverticula were found throughout the entire colon. No specimens were collected. Pathology for the EGD demonstrated duodenal mucosa with Shan gland hyperplasia, mild gastritis, fundic gland polyp, and GE mucosa with chronic inflammation. Patient has a history of a hand-assisted laparoscopic right colectomy by Dr. Reid on 12/03/17 following a cecal perforation from a colonoscopy, where multiple AVMs were treated. She also notes a previous sigmoid colectomy following what sounds like a volvulus. ROS General General: No weight change, appetite, fatigue, colon cancer, breast cancer or weakness HEENT HEENT: No difficulty swallowing, eye injury, eye surgery, swollen glands or hoarseness Endo Endocrine: No thyroid disease, diabetes mellitus, thyroid cancer, Hair loss, heat intolerance or cold intolerance Skin Skin: No rash or changing moles Breast Breast: No left breast lump, right breast lump, nipple discharge, breast pain, abnormal mammogram, abnormal US or breast enlargement Musc Musculoskeletal: Yes back problems; No arthritis, rheumatoid arthritis, gout or joint pain Cardio Cardiovascular: No murmur, pacemaker, heart disease, atrial fibrillation, high blood pressure, heart attack, heart stent, palpitations, shortness of breat with exertion or chest pain Psych Psychiatric: No depression, anxiety or hearing voices Resp Respiratory: No shortness of breath, No sleep apnea, Yes cough, No COPD, No asthma, No emphysema and No wheezing Gastro Gastrointestinal: Yes abdominal pain, No nausea or vomiting, No diarrhea, No constipation, Yes blood in stool, No acid reflux, Yes hemorrhoids, No ulcers, No gallbladder problem and Yes black,tarry stools Additional Details: Black, Tarry stools pt states Sometimes Jose Hematologic: No blood thinners, No blood disorders, No bleeding, No anemia and No blood clots Neuro Neurologic: No system reviewed and no additional complaints, except as documented, No as per HPI, No abnormal gait, No abnormal hearing, No abnormal movements, No abnormal speech, No behavioral changes, No burning sensations, No confusion, No convulsions, No disequilibrium, No dizziness, No localized weakness, No frequent falls, No headache(s), No lack of coordination, No loss of vision, No memory loss, Yes numbness, No other visual disturbances, No radicular pain, No restless legs, No sensory deficit, No syncope, Yes tingling, No tremor(s), No weakness and No other Exam Const General: cooperative, healthy appearing, comfortable and no acute distress HENAZ Head: normal to inspection Eyes General: appearance normal, both eyes and all related structures Neck Neck: normal visual inspection Neck mass: No Resp Effort & Inspection: normal respiratory effort Auscultation: clear to auscultation bilaterally Cardio Rate: regular rate Rhythm: regular rhythm GI Inspection: normal to inspection Palpation: soft Auscultation: normal bowel sounds Musc Cervical Spine: normal cervical lordosis Skin General: no rashes or lesions noted Neuro General: no focal motor deficits and CN's II-XI intact bilaterally Extrem General: normal to inspection Psych Appearance: grossly normal Affect: normal affect Assessment and Plan Assessment and Plan (1) Melanotic stools: Status: Acute Patient had a positive Cologuard and acute anemia. She has undergone an esophagogastroduodenoscopy with no acute findings. He returns today for a colonoscopy with possible biopsy or polypectomy as indicated. Fortunately with iron supplementation her anemia is slowly improving and is almost resolved. Abner Reid M.D., F.A.C.S.
--- NOTE | 2023-04-22 09:23 | OP.CCLET_ITS ---
04/22/2023 Gavin Tran [address] [place] [address] Re : Colonoscopy procedure for Fannie Avalos Dear Dr. Tran This procedure was performed on Saturday, April 22, 2023. My impressions and recommendations are as follows: Impressions : - Anal stricture, non-thrombosed internal hemorrhoids and internal hemorrhoids that prolapse with straining, but spontaneously regress to the resting position (Grade II) found on digital rectal exam. - Patent functional end-to-end ileo-colonic anastomosis, characterized by healthy appearing mucosa. - Diverticulosis in the entire examined colon. - Stricture in the recto-sigmoid colon. Biopsied. Recommendations : - Discharge patient to home. - Resume previous diet. - Continue present medications. - Repeat colonoscopy is not recommended due to current age (66 years or older) for screening purposes. - Telephone my office for pathology results in 1 week. Mild rectosigmoid stenosis could correlate with the patient's difficulty with defecating and having to strain. Tissue in the rectum rectosigmoid slightly friable blood easily with biopsy. Pancolonic diverticulosis could also potentially be a source for blood loss. Widely patent ileocolonic anastomosis in the right colon with no evidence of residual Cody contagious or source of bleeding My findings are described in the full procedure note, which is enclosed. If I can be of further assistance, please feel free to contact me at Doctor phone number(s): Work: . Sincerely, Abner Reid MD 04/22/2023 9:23:04 AM This report has been signed electronically.
--- NOTE | 2023-04-22 09:23 | OP.COLON_ITS ---
Patient Name: Fannie Avalos Procedure Date: 04/22/2023 8:52 AM Date of : 1945 Age: 77 Procedure: Colonoscopy Indications: Iron deficiency anemia Providers: Abner Reid MD Medicines: See the Anesthesia note for documentation of the administered medications Patient Profile: Last Colonoscopy: March 2022. Complications: No immediate complications. Procedure: Pre-Anesthesia Assessment: - Prior to the procedure, a History and Physical was performed, and patient medications and allergies were reviewed. The patient's tolerance of previous anesthesia was also reviewed. The risks and benefits of the procedure and the sedation options and risks were discussed with the patient. All questions were answered, and informed consent was obtained. Prior Anticoagulants: The patient has taken no anticoagulant or antiplatelet agents. ASA Grade Assessment: II - A patient with mild systemic disease. After reviewing the risks and benefits, the patient was deemed in satisfactory condition to undergo the procedure. After I obtained informed consent, the scope was passed under direct vision. Throughout the procedure, the patient's blood pressure, pulse, and oxygen saturations were monitored continuously. The adult colonoscope was introduced through the anus and advanced to the ileocolonic anastomosis. The colonoscopy was performed without difficulty. The patient tolerated the procedure well. The quality of the bowel preparation was good. Ileocolonic anastomosis were photographed. Scope In: 9:00:48 AM Scope Withdrawal Time 0 hours 8 minutes 45 seconds Scope Out: 9:13:27 AM Total Procedure Duration Time 0 hours 12 minutes 39 seconds Findings: The digital rectal exam findings include anal stricture, non-thrombosed internal hemorrhoids and internal hemorrhoids that prolapse with straining, but spontaneously regress to the resting position (Grade II). There was evidence of a prior functional end-to-end ileo-colonic anastomosis in the proximal transverse colon. This was patent and was characterized by healthy appearing mucosa. Multiple diverticula were found in the entire colon. A benign-appearing, intrinsic mild stenosis measuring less than one cm (in length) was found in the recto-sigmoid colon and was traversed. Biopsies were taken with a cold forceps for histology. Impression: - Anal stricture, non-thrombosed internal hemorrhoids and internal hemorrhoids that prolapse with straining, but spontaneously regress to the resting position (Grade II) found on digital rectal exam. - Patent functional end-to-end ileo-colonic anastomosis, characterized by healthy appearing mucosa. - Diverticulosis in the entire examined colon. - Stricture in the recto-sigmoid colon. Biopsied. Recommendation: - Discharge patient to home. - Resume previous diet. - Continue present medications. - Repeat colonoscopy is not recommended due to current age (66 years or older) for screening purposes. - Telephone my office for pathology results in 1 week. Mild rectosigmoid stenosis could correlate with the patient's difficulty with defecating and having to strain. Tissue in the rectum rectosigmoid slightly friable blood easily with biopsy. Pancolonic diverticulosis could also potentially be a source for blood loss. Widely patent ileocolonic anastomosis in the right colon with no evidence of residual Cody contagious or source of bleeding Procedure Code(s): --- Professional --- 88992, Colonoscopy, flexible; with biopsy, single or multiple Diagnosis Code(s): --- Professional --- K62.4, Stenosis of anus and rectum Z98.0, Intestinal bypass and anastomosis status K64.1, Second degree hemorrhoids K56.699, Other intestinal obstruction unspecified as to partial versus complete obstruction D50.9, Iron deficiency anemia, unspecified K57.30, Diverticulosis of large intestine without perforation or abscess without bleeding CPT copyright 2021 [employer]. All rights reserved. The codes documented in this report are preliminary and upon consulting systems engineer review may be revised to meet current compliance requirements. Abner Reid MD 04/22/2023 9:23:04 AM This report has been signed electronically. Number of Addenda: 0 Note Initiated On: 04/22/2023 8:52 AM
== END 2023-04-22 10:15 | disposition home or self-care (01) ==
LOC: EN 07:42 → AC 07:44
PROVIDERS: PCP Internal Medicine; Referring Provider Internal Medicine; Visit Provider Surgery
PROC: 0DJD8ZZ Inspection of Lower Intestinal Tract, Via Natural or Artificial Opening Endoscopic (ICD-10-PCS; CPT 45378; principal; 2023-04-22 08:40)
DX: K52.9 Noninfective gastroenteritis and colitis, unspecified (principal); K57.30 Diverticulosis of large intestine without perforation or abscess without bleeding; E78.00 Pure hypercholesterolemia, unspecified; K21.00 Gastro-esophageal reflux disease with esophagitis, without bleeding; D50.9 Iron deficiency anemia, unspecified; Z98.0 Intestinal bypass and anastomosis status; K62.4 Stenosis of anus and rectum; K64.1 Second degree hemorrhoids; Z79.82 Long term (current) use of aspirin
CPT/HCPCS: 45380; 00811; 88305; J7120; J2405

== ENCOUNTER 2023-08-31 09:14 | Emergency (ER) | payer MEDICARE, SELFPAY ==
[2023-08-31 09:15] VITALS: BP 134/69; PULSE 74; RESP 16; TEMP 36.9; O2SAT 98; BMI 23.2
--- NOTE | 2023-08-31 10:00 | CT_ITS ---
STUDY: CTA CHEST REASON FOR EXAM: Female, 77 years old. Left upper back pain, recent travel RADIATION DOSAGE (If Supplied By Facility): CTDIvol = ( 5.00 ) mGy, DLP = ( 143.36 ) mGycm TECHNIQUE: The examination was performed with the intravenous administration of IV 100mL [id number]-[id number]. Post-processing of the angiographic images was performed, with multiplanar reformation and 3D reconstruction. Individualized dose optimization techniques were used for this CT. COMPARISON: No relevant prior comparison study available FINDINGS: Normal enhancement of the main pulmonary artery and right and left pulmonary arteries. Normal enhancement of the bilateral peripheral pulmonary arteries. There is no demonstrated pulmonary embolism. There is atherosclerotic calcification of the aortic arch and descending thoracic aorta without evidence of aneurysm. There is no demonstrated aortic dissection. Normal heart and pericardium. There are mild calcifications of the coronary arteries. Normal mediastinum. Small bilateral hilar nodes. Normal visualized trachea and bronchi. There are no pulmonary infiltrates. Bilateral apical pleural fibrotic changes. Mild atelectatic changes or scarring in the lower lungs. There are no pleural effusions. Normal chest wall structures. Mild degenerative changes of the spine. Dextroscoliosis of the thoracic spine. No demonstrated acute changes in the visualized upper abdomen. Status post cholecystectomy. CT/CTA Chest W/WO Contrast IMPRESSION: 1. No evidence of pulmonary embolism or aortic dissection. 2. No focal acute pulmonary infiltrates. Atelectatic changes in the lower lungs. Electronically Signed: Arnold Zhang MD at 11:50 EDT ,
--- NOTE | 2023-08-31 10:15 | ED.VIS.BACK ---
HPI History of Present Illness Chief Complaint: Back Detail of Chief Complaint: Back pain Informant: patient Narrative Narrative: Patient presents to the emergency department complaint of back pain that started about a week ago. She intermittently has had similar pain in the left upper back. She denies injury. They recently drove back from [place] 1 week ago but they stopped frequently. No history of PE. Pain does not seem to be pleuritic but when it hits intermittently will take her breath away. She denies falls or injuries. She denies pain radiating down her legs. She denies loss of bowel or bladder function. She has had prior lumbar fusion. [facility] Medical History (Updated 08/31/23 @ 11:[address] Dona Kramer, DO) Acute left-sided thoracic back pain Allergic rhinitis Anorectal pain Aortic regurgitation Back pain Benign meningioma of brain Benign neoplasm of colon Benign neoplasm of meninges Blood in stool Cardiology follow-up encounter Carotid artery stenosis Carpal tunnel syndrome Cecum perforation Change in bowel habit Constipation Diarrhea Epigastric abdominal pain Esophageal dysphagia Fecal occult blood test positive Fecal occult blood test positive Gastric reflux Hemorrhoids High cholesterol History of echocardiogram History of IBS History of irregular heartbeat History of stress test Hyperlipidemia IBS (irritable bowel syndrome) Incontinence of feces Irregular heart rhythm Left Achilles tendinitis Melanotic stools Non-smoker Nonrheumatic aortic (valve) insufficiency Osteopenia Palpitations Personal history of colonic polyps Recurrent incisional hernia with incarceration RLQ abdominal pain Status post gamma knife treatment Vertigo Wears glasses Home Medications cholecalciferol (vitamin D3) 25 mcg (1,000 unit) tablet 1,000 unit PO DAILY 03/25/20 [History Last Taken Unknown] aspirin 81 mg tablet,delayed release 81 mg PO DAILY 01/31/22 [History Last Taken 04/09/23] atorvastatin 40 mg tablet 40 mg PO QHS 01/31/22 [History Last Taken Unknown] calcium carbonate 600 mg-vitamin D3 5 mcg (200 unit) capsule (Calcium 600 + D(3)) 1 cap PO DAILY 01/31/22 [History Last Taken Unknown] ibuprofen 600 mg tablet 600 mg PO Q8H PRN Pain 01/31/22 [History Last Taken Unknown] multivitamin 1 tab PO DAILY supplement 01/31/22 [History Last Taken Unknown] vitamin E (dl, acetate) 90 mg (200 unit) capsule 90 mg PO DAILY 01/31/22 [History Last Taken Unknown] omega-3 fatty acids-fish oil 300 mg-1,000 mg capsule 1 cap PO SA 02/11/22 [History Last Taken 04/05/23] wheat dextrin 3 gram/3.5 gram oral powder packet (Benefiber Clear Sugar Free(dextrin)) 3 g PO DAILY 10/02/22 [History Last Taken 04/09/23] loratadine 10 mg tablet (Claritin) 10 mg PO DAILY PRN allergy symptoms 02/26/23 [History Last Taken Unknown] FOCUS FACTOR 2 tab PO DAILY 03/28/23 [History Last Taken Unknown] carvedilol 3.125 mg tablet 3.125 mg PO BID updated RX with new quantity 03/28/23 [History Last Taken 04/22/23] vit A 300 mcg-C 200 mg-E 27 mg-lutein 2 mg and minerals tablet (Healthy Eyes) 1 tab PO DAILY 03/28/23 [History Last Taken Unknown] omeprazole 20 mg capsule,delayed release 20 mg PO DAILY 30 days #30 caps 04/08/23 [Rx Last Taken 04/22/23] hydrocortisone acetate 25 mg rectal suppository 25 mg AR BID #28 ea 04/23/23 [Rx Last Taken Unknown] diazepam 2 mg tablet (Valium) 2 mg PO TID PRN muscle spasm #14 tabs 08/31/23 [Rx Last Taken Unknown] hydrocodone-acetaminophen 5-325mg 5mg-325mg 1 tab PO Q4H PRN PRN Pain 2 days #10 TABLETS 08/31/23 [Rx Last Taken Unknown] Allergy/AdvReac Type Severity Reaction Status Date / Time clindamycin Allergy Intermediate nausea/vomi Verified 08/31/23 09:15 ting sulfamethoxazole Allergy Intermediate nausea/vomi Verified 08/31/23 09:15 [From Bactrim] ting trimethoprim [From Bactrim] Allergy Intermediate nausea/vomi Verified 08/31/23 09:15 ting Gadolinium-MRI Contrast Allergy Hives Verified 08/31/23 09:15 Medium levofloxacin [From Levaquin] AdvReac Nausea Verified 08/31/23 09:15 metronidazole [From Flagyl] AdvReac Nausea Verified 08/31/23 09:15 Family History Mother Breast cancer Thyroid disorder Aunt Breast cancer Surgical History History of colectomy History of ERCP (~03/2018) History of esophagogastroduodenoscopy (EGD) History of hemorrhoidectomy History of hysterectomy History of lumbar spinal fusion History of removal of ovarian cyst History of spinal fusion Hx of cholecystectomy (~03/2018) Social History Smoking Status: Never smoker alcohol intake: never substance use type: does not use caffeine: Yes (occasionally) Type: carbonated beverages ROS ROS ED Review of Systems ROS Unobtainable: other Constitutional Constitutional ED: Reports lethargy; Denies chills, fever(s), sweats or weight loss Eyes Eyes: Denies blurry vision, change in vision or diplopia ENT ENT ED: Denies rhinorrhea or sore throat Cardiovascular Cardiovascular: Reports chest pain and racing heartbeat; Denies orthopnea Respiratory/Chest Respiratory/Chest: Denies cough, dyspnea, dyspnea on exertion, orthopnea or sputum Gastrointestinal Gastrointestinal: Denies abdominal pain, diarrhea, nausea or vomiting Genitourinary Genitourinary ED: Denies dysuria, hematuria or urinary frequency Musculoskeletal Musculoskeletal: Reports back pain; Denies arthralgias, myalgias or neck pain Integumentary Denies abscess, Abrasions or rash Neurologic Neurologic: Denies headache(s) or weakness Psychiatric Psychiatric: Denies anxiety, depression or suicidal thoughts Endocrine Endocrinology: Denies polydipsia, polyphagia or polyuria Hematologic/Lymphatic Hematologic/Lymphatic: Denies easy bleeding, easy bruising or lymphadenopathy Allergic/Immunologic Allergic/Immunologic ED: Denies mouth swelling, tongue swelling or urticaria EXAM Physical Exam Const Vital Signs: 08/31/23 09:15 Temperature 98.4 F Temperature Source Temporal Pulse Rate 74 Respiratory Rate 16 Blood Pressure 134/69 H Blood Pressure Mean 90 Pulse Ox 98 Oxygen Delivery Method Room Air Positive well nourished and well developed General Appearance ED: well developed and NAD HEENT Reports TM's clear and moist mucous membranes normocephalic and atraumatic; Negative for trauma or tenderness Tympanic Membrane ED: Yes TM's clear Eyes PERRL and EOMs intact bilaterally General Eye ED: Negative for pale conjunctiva or scleral icterus Neck no lymphadenopathy, supple and no JVD General: Negative for tenderness Chest Wall inspection of chest normal and palpation of chest normal Chest: Negative for tenderness Resp normal respiratory effort and clear to auscultation bilaterally Effort and Inspection: Negative for respiratory distress or pain with movement Auscultation: Negative for rhonchi, wheezes or diminished lung sounds Cardio regular rate, regular rhythm, S1 normal heart sound, S2 normal heart sound and no murmurs Peripheral Pulses: pulses 2+ throughout GI normal to inspection, nondistended, normoactive bowel sounds, soft to palpation, non-tender, non-distended and no masses Back/Spine no CVA tenderness and no thoracic nor lumbar tenderness Extremity normal to inspection General Extremety ED: Negative for edema General Extremity: Negative for edema Neuro oriented x3, CN's II-XII intact bilaterally, no sensory deficits noted and gait normal Sensorium / Orientation: awake, alert, oriented to person, oriented to place and oriented to time Motor Exam: strength 5/5 throughout and strength abnormal Psych mental status grossly normal Skin no rashes or lesions noted and no wounds MDM MDM MDM Narrative Medical decision making narrative: Patient presents to the emergency department with complaint of upper back pain. In the differential would be musculoskeletal back pain versus PE versus atypical acute coronary syndrome or pneumonia or pneumothorax. IV line established. Patient was medicated with morphine and Valium and she had good pain relief with that and was actually able to get up to the bedside commode x 2 and did not experience any more discomfort. EKG obtained on arrival showed a sinus rhythm with ventricular rate of 64 bpm with right bundle branch block. CBC with differential showed white count of 4.5 with hemoglobin 13.4 and platelet count of 237. Chemistries unremarkable. Troponin was normal at 7. I did obtain a CTA of the chest which was negative for PE or any other acute disease process. No significant bony abnormalities noted. At this point patient will be discharged to home. She will be given a prescription for [place] and Valium. She is advised to follow-up with her primary care physician within next 5 to 7 days. Lab Data Attestation: I reviewed the patient's lab results. Labs: Laboratory Results - last 24 hr 08/31/23 10:30 WBC 4.5 RBC 4.07 L Hgb 13.4 Hct 40.3 MCV 99.0 MCH 32.9 H MCHC 33.3 RDW Std Deviation 42.6 RDW Coeff of Darrin 11.8 Plt Count 237 MPV 9.9 Immature Gran % (Auto) 0.400 Neut % (Auto) 56.8 Lymph % (Auto) 28.0 [place] % (Auto) 9.3 Eos % (Auto) 5.1 H Baso % (Auto) 0.4 Absolute Neuts (auto) 2.6 Absolute Lymphs (auto) 1.27 Nucleated RBC % 0 Sodium 144 Potassium 3.7 Chloride 106 Carbon Dioxide 30.0 Anion Gap 8 BUN 16 Creatinine 0.67 Estim Creat Clear Calc 47.17 Est GFR (MDRD) Af Amer 110 Est GFR (MDRD) Non-Af 91 BUN/Creatinine Ratio 24.0 H Glucose 95 Calcium 9.2 Troponin I High Sens 7 Radiography Diagnostic Testing: Clinical Impression(s) from Imaging Studies Chest CTA 08/31/23 10:00 IMPRESSION: 1. No evidence of pulmonary embolism or aortic dissection. 2. No focal acute pulmonary infiltrates. Atelectatic changes in the lower lungs. Electronically Signed: Arnold Zhang MD at 11:50 EDT , EKG Initial EKG: Attestation: I personally reviewed and interpreted this EKG as follows: Comments: Sinus rhythm with ventricular rate of 64 bpm with right bundle branch block Discharge Plan Triage Chief Complaint: Back ED Provider: Dona Kramer Dx/Rx/DC Orders Clinical Impression: Back pain Instructions: ED Back Pain (Acute or Chronic), ED Back Spasm, No Trauma Prescriptions: New hydrocodone-acetaminophen [hydrocodone-acetaminophen] 5-325 mg tablet 1 tab PO Q4H PRN PRN (Reason: Pain) 2 Days Qty: 10 0RF diazepam [Valium] 2 mg tablet 2 mg PO TID PRN (Reason: muscle spasm) Qty: 14 0RF No Action atorvastatin 40 mg tablet 40 mg PO QHS ibuprofen 600 mg tablet 600 mg PO Q8H PRN (Reason: Pain) vitamin E (dl, acetate) 90 mg (200 unit) capsule 90 mg PO DAILY aspirin 81 mg tablet,delayed release (DR/EC) 81 mg PO DAILY Calcium 600 + D(3) 600 mg-5 mcg (200 unit) capsule 1 cap PO DAILY omega-3 fatty acids-fish oil 300-1,000 mg capsule 1 cap PO SA Benefiber Clear SF (dextrin) 3 gram/3.5 gram powder in packet 3 g PO DAILY Rx Instructions: mix into at least 4 oz water or juice before administering loratadine [Claritin] 10 mg tablet 10 mg PO DAILY PRN (Reason: allergy symptoms) multivitamin Tablet 1 tab PO DAILY cholecalciferol (vitamin D3) 1,000 UNIT tablet 1,000 unit PO DAILY Healthy Eyes 300 mcg-200 mg-27 mg-2 mg tablet 1 tab PO DAILY Rx Instructions: administer after a meal FOCUS FACTOR 2 tab PO DAILY Hold Instructions: PT STOPPED FOR PROCEDURE carvedilol 3.125 mg tablet 3.125 mg PO BID Rx Instructions: Take 1 tablet by mouth twice daily with food omeprazole 20 mg capsule,delayed release(DR/EC) 20 mg PO DAILY 30 Days Qty: 30 3RF hydrocortisone acetate 25 mg suppository 25 mg AR BID Qty: 28 0RF Primary Care Provider: Gavin Tran Referrals: Gavin Tran MD [Primary Care Provider] - 5-7 Days Disposition Disposition: Home, Self Care
[2023-08-31 10:34] LABS: Absolute Lymphocyte Count 1.27 X10^3/uL (0.83-4.51); Absolute Neutrophil Count 2.6 X10^3/uL (2.0-7.7); Basophil# 0.02 X10^3/uL; Basophil% 0.4 % (0-1); Eosinophil# 0.23 X10^3/uL; Eosinophils% 5.1 % (0-5); Hematocrit 40.3 % (37-47); Hemoglobin 13.4 g/dL (12.0-15.0); Lymphocyte # 1.27 X10^3/ul (0.83-4.51); Mean Corp Hgb Conc 33.3 g/dL (32-36); Mean Corpuscular Hgb 32.9 pg (27.0-32.0); Mean Platelet Vol. 9.9 fl (6.2-12.0); Monocyte# 0.42 X10^3/uL; Monocyte% 9.3 % (0-10); NRBC Flagged by Analyzer 0 % (0-5); Neutrophil # 2.57 X10^3/uL (2.7-7.7); Neutrophil % 56.8 % (47-70); Platelet Count 237 K/mm3 (150-450); RBC Distribution Width CV 11.8 % (11.6-14.6); RBC Distribution Width SD 42.6 fl (35.1-43.9); Red Blood Count 4.07 M/mm3 (4.2-5.4); White Blood Count 4.5 K/mm3 (4.4-11.0)
[2023-08-31] MEDS: Ondansetron 4 MG/2 ML Vial IV (10:44)
[2023-08-31] MEDS: 0.9% Normal Saline (1000mL) 1,000 ML 150 ML IV (10:44)
[2023-08-31] MEDS: Morphine 4 MG/ML Syringe IV (10:45)
[2023-08-31] MEDS: diazePAM 2 MG Tablet PO (10:46)
[2023-08-31 10:50] LABS: Anion Gap 8 (5-15); BUN 16 mg/dL (7-18); Calcium,Total 9.2 mg/dL (8.5-10.1); Chloride 106 mmol/L (98-107); Creatinine, Serum 0.67 mg/dL (0.55-1.02); EST Glomerular Filtration Rate 91 mL/min (>60); Est Glom Filt Rate - Afr Amer 110 mL/min (>60); Estimated Creatinine Clearance 47.17 ml/min; Glucose 95 mg/dL (74-106); Potassium 3.7 mmol/L (3.5-5.1); Sodium Level 144 mmol/L (136-145); Troponin-I HS 7 pg/mL (3.0-54.0)
[2023-08-31 12:21] VITALS: BP 130/68; PULSE 60; RESP 18; TEMP 36.6; O2SAT 98
== END 2023-08-31 12:22 | disposition home or self-care (01) ==
PROVIDERS: Emergency Provider Emergency Medicine; PCP Internal Medicine; Visit Provider Emergency Medicine
DX: M54.9 Dorsalgia, unspecified (principal); I45.10 Unspecified right bundle-branch block; E78.00 Pure hypercholesterolemia, unspecified
CPT/HCPCS: 71275; 80048; 84484; 85025; 93005; 96361; 96374; 96375; 99283; J7030; Q9967; J2405

== ENCOUNTER 2023-11-30 11:56 | Emergency (ER) | payer MEDICARE, SELFPAY ==
[2023-11-30 11:57] VITALS: BP 141/63; PULSE 72; RESP 19; TEMP 35.9; O2SAT 100; BMI 23.6
--- NOTE | 2023-11-30 12:32 | EDS_ITS ---
HPI <SHOSHANA Turk - Last Filed: 11/30/23 16:21> History of Present Illness Chief Complaint: Back Narrative Narrative: Patient is 78-year-old female with history of multiple bowel surgeries, history of anal stricture, hyperlipidemia, CAD who presents to the emerged department with right sided mid back pain. Patient states she normally has pain to her left shoulder blade, this is intermittent, she does see the emergency department as well as urgent care for this. She is normally given pain medicine and it is relieved. She has had this pain for multiple years. Patient that she was having a flareup and was at the urgent care which was 3 to 4 days ago. Patient was given a steroid pack. Patient states the pain now moved to the right mid back just lateral to the thoracic spine. Patient states the pain is dull however has significant sharpness to it, patient needs to get take her breath away. Patient dates that this is pain that is similar but only is usually on the left side. She denies any recent travel, denies any shortness of breath. Patient states that she has to constantly move around to get comfortable. [facility] <SHOSHANA Turk - Last Filed: 11/30/23 16:21> [facility] Medical History (Updated 11/30/23 @ 16:19 by SHOSHANA Turk) Rectal pressure PAC (premature atrial contraction) Easy fatigability Ventral incisional hernia without obstruction or gangrene Back pain History of irregular heartbeat Gastric reflux Vertigo Nonrheumatic aortic (valve) insufficiency Aortic regurgitation Fecal occult blood test positive Wears glasses High cholesterol History of IBS Non-smoker Cardiology follow-up encounter History of echocardiogram History of stress test Status post gamma knife treatment Fecal occult blood test positive Melanotic stools Carpal tunnel syndrome Recurrent incisional hernia with incarceration Irregular heart rhythm Incontinence of feces Carotid artery stenosis Left Achilles tendinitis Osteopenia Allergic rhinitis IBS (irritable bowel syndrome) Benign neoplasm of colon Acute left-sided thoracic back pain Palpitations Hyperlipidemia Benign neoplasm of meninges Benign meningioma of brain Epigastric abdominal pain Anorectal pain RLQ abdominal pain Cecum perforation Change in bowel habit Esophageal dysphagia Personal history of colonic polyps Hemorrhoids Blood in stool Constipation Diarrhea Home Medications ?Medication ?Instructions ?Recorded ?Last Taken ?Type cholecalciferol (vitamin D3) 25 1,000 unit PO DAILY 03/25/20 Unknown History mcg (1,000 unit) tablet aspirin 81 mg tablet,delayed 81 mg PO DAILY 01/31/22 04/09/23 History release atorvastatin 40 mg tablet 40 mg PO QHS 01/31/22 Unknown History calcium carbonate 600 mg-vitamin 1 cap PO DAILY 01/31/22 Unknown History D3 5 mcg (200 unit) capsule (Calcium 600 + D(3)) ibuprofen 600 mg tablet 600 mg PO Q8H PRN Pain 01/31/22 Unknown History multivitamin 1 tab PO DAILY supplement 01/31/22 Unknown History vitamin E (dl, acetate) 90 mg (200 90 mg PO DAILY 01/31/22 Unknown History unit) capsule omega-3 fatty acids-fish oil 300 1 cap PO SA 02/11/22 04/05/23 History mg-1,000 mg capsule wheat dextrin 3 gram/3.5 gram oral 3 g PO DAILY 10/02/22 04/09/23 History powder packet (Benefiber Clear Sugar Free(dextrin)) loratadine 10 mg tablet (Claritin) 10 mg PO DAILY PRN allergy symptoms 02/26/23 Unknown History FOCUS FACTOR 2 tab PO DAILY 03/28/23 Unknown History carvedilol 3.125 mg tablet 3.125 mg PO BID updated RX with 03/28/23 04/22/23 History new quantity vit A 300 mcg-C 200 mg-E 27 1 tab PO DAILY 03/28/23 Unknown History mg-lutein 2 mg and minerals tablet (Healthy Eyes) omeprazole 20 mg capsule,delayed 20 mg PO DAILY 30 days #30 caps 04/08/23 04/22/23 Rx release hydrocortisone acetate 25 mg 25 mg NV BID #28 ea 04/23/23 Unknown Rx rectal suppository diazepam 2 mg tablet (Valium) 2 mg PO TID PRN muscle spasm #14 08/31/23 Unknown Rx tabs hydrocodone-acetaminophen 5-325mg 1 tab PO Q4H PRN PRN Pain 2 days 08/31/23 Unknown Rx 5mg-325mg #10 TABLETS diazepam 5 mg tablet (Valium) 5 mg PO BID PRN muscle spasm #10 11/30/23 Unknown Rx tabs Allergy/AdvReac Type Severity Reaction Status Date / Time clindamycin Allergy Intermediate nausea/vomi Verified 11/30/23 11:58 ting sulfamethoxazole (From Allergy Intermediate nausea/vomi Verified 11/30/23 11:58 Bactrim) ting trimethoprim (From Bactrim) Allergy Intermediate nausea/vomi Verified 08/31/23 09:15 ting Gadolinium-MRI Contrast Allergy Hives Verified 11/30/23 11:58 Medium levofloxacin (From Levaquin) AdvReac Nausea Verified 11/30/23 11:58 metronidazole (From Flagyl) AdvReac Nausea Verified 11/30/23 11:58 Family History Mother Breast cancer Thyroid disorder Aunt Breast cancer Surgical History History of lumbar spinal fusion History of esophagogastroduodenoscopy (EGD) History of ERCP (~03/2018) Hx of cholecystectomy (~03/2018) History of spinal fusion History of hemorrhoidectomy History of colectomy History of removal of ovarian cyst History of hysterectomy Social History Smoking Status: Never smoker alcohol intake: never substance use type: does not use caffeine: Yes (occasionally) Type: carbonated beverages ROS <SHOSHANA Turk - Last Filed: 11/30/23 16:21> ROS ED ROS Narrative Constitutional: Negative for fever, chills, weight loss, weakness Eyes: Negative for vision loss, vision change, double vision ENT: Negative for any sore throat, ear pain, congestion Cardiovascular: Negative for any chest pain, tightness, palpitations Respiratory: Negative for any cough, sputum production, hemoptysis, dyspnea, dyspnea on exertion, orthopnea Gastrointestinal: Negative for any abdominal pain, nausea, vomiting, diarrhea, constipation, blood in stool, blood in vomit : Negative for any urinary frequency, dysuria, retention, blood in urine Muscle skeletal: Negative for any neck pain. Positive for thoracic back pain Neurological: Negative for any headache, syncope, dizziness Skin: Negative for any rashes, itching, abrasions, lacerations Psychiatric: Negative for any depression, anxiety, stress, suicidal ideation, homicidal ideation Hematologic: Negative for any excessive bruising, easy bleeding EXAM <SHOSHANA Turk - Last Filed: 11/30/23 16:21> Physical Exam Narrative Exam Narrative: Vital signs reviewed. Cardiac: Regular rate and rhythm no murmurs gallops or rubs, equal peripheral pulses bilaterally. Respiratory: Lungs clear to auscultation bilaterally. No chest tenderness. Abdomen: Soft, nontender, nondistended. No abdominal bruit or pulsatile masses. No hepatosplenomegaly Extremities: No peripheral edema, no signs of gross trauma or deformity. Active full range of motion of all extremities. Neuro: Cranial nerves II through XII intact, no focal neurological deficits. Skin: Clean dry and intact with no rash, purpura, petechiae, vesicles or pustules. Backs/flank: No CVA tenderness, no midline spinal tenderness. Patient's pain is lateral along the posterior lateral rib cage the thoracic spine. There is no midline spinal tenderness. Pain is worse with rotation. On palpation she states it sore however sharp pains come and go. She has good range of motion of her arms with minimal pain. Pain seems to be worse with movement, better with laying down. Psych: Normal mood and affect. No SI, HI or acute psychosis. Const Vital Signs: 11/30/23 11:57 11/30/23 16:07 Temperature 96.7 F L Temperature Source Temporal Pulse Rate 72 62 Respiratory Rate 19 H 16 Blood Pressure 141/63 H 151/74 H Blood Pressure Mean 89 99 Pulse Ox 100 97 Oxygen Delivery Method Room Air Room Air Positive well nourished and well developed General Appearance ED: well developed <Dr. Vincent Ngo DO - Last Filed: 11/30/23 16:11> Physical Exam Const Vital Signs: 11/30/23 11:57 11/30/23 16:07 Temperature 96.7 F L Temperature Source Temporal Pulse Rate 72 62 Respiratory Rate 19 H 16 Blood Pressure 141/63 H 151/74 H Blood Pressure Mean 89 99 Pulse Ox 100 97 Oxygen Delivery Method Room Air Room Air [facility] <SHOSHANA Turk - Last Filed: 11/30/23 16:21> [facility] Lab Data Labs: Laboratory Results - last 24 hr 11/30/23 15:55 Urine Color Straw Urine Clarity Sl. Cloudy Urine pH 7.0 Ur Specific Mitchell[place] 1.010 Urine Protein Negative Urine Glucose (UA) Normal Urine Ketones Negative Urine Occult Blood Negative Urine Nitrite Negative Urine Bilirubin Negative Urine Urobilinogen Normal Ur Leukocyte Esterase 25 H Urine RBC 0 SEEN Urine WBC 0-5 SEEN Ur Squamous Epith Cells 0 SEEN Urine Bacteria 1+ Urine Mucus 0 SEEN Radiography Diagnostic Testing: Clinical Impression(s) from Imaging Studies Chest X-Ray 11/30/23 12:37 IMPRESSION: No acute cardiopulmonary process identified. Electronically Signed: Rosa Maria Benavides MD at 14:10 EDT , Abdomen/Pelvis CT 11/30/23 13:57 IMPRESSION: Moderate stool in the colon. Colonic diverticulosis without acute diverticulitis. Cholecystectomy with chronic pneumobilia. Negative examination for renal stone. Electronically Signed: Rosa Maria Benavides MD at 15:07 EDT , Treatment and Re-Evaluation :: Differential diagnosis includes however is not limited to: PE, thoracic strain, community acquired pneumonia, muscle strain, muscle spasm Patient appears to be in no obvious respiratory distress, vital signs are stable, nontoxic-appearing. Presenting to the Emergency Department with complaints of right posterior/lateral chest wall. There is no specific midline spinal tenderness. Pain to palpation however patient dates that the shooting pain comes and goes. Patient will be given IM morphine, oral Zofran. 2 view chest x-ray will be obtained to ensure there is no lung disease. All radiologic examinations were read, reviewed by the emergency department attending. From these reads, a plan of care will be put in place. Patient will be reevaluated. On reevaluation, the patient was still having significant mount of pain. Secondary to the ongoing pain, patient states the pain is more sharp and stabbing intermittently. Patient will be redosed with oral Valium. Chest x-ray two-view was unremarkable any acute process. At this time, we will add a urinalysis as well as a CT scan of the abdomen pelvis. All radiologic examinations were read, reviewed by the emergency department attending. From these reads, a plan of care will be put in place. Patient will be reevaluated The patient's urinalysis was negative for any acute process. Patient's CT scan shows moderate stool in the colon, colonic diverticulosis without acute diverticulitis. Negative examination for any renal stone. I spoke with the patient, patient did have relief with the Valium. Patient be given Valium for home. She will continue to follow-up outpatient. All questions were answered, she instructed return for any worsening symptoms. Stable for discharge. She was made aware that the Valium is a staying medication to take at nighttime. <Dr. Vincent Ngo, DO - Last Filed: 11/30/23 16:11> [facility] Narrative Medical decision making narrative: I have personally performed a face to face assessment of the patient and have reviewed the DRU Note. I performed a substantive portion of the visit including all aspects of the following. My edmondson findings include: History: Patient presents with back pain that has been intermittent since yesterday. Patient states it is mainly over the right lower back and right flank area. Patient describes it as a spasm. Patient states it feels like it is sharp and stabbing at times. Patient states it is worse with sitting. Patient states nothing seems to help with it. Patient denies any dysuria or hematuria. Patient denies any radiation of the pain. Patient denies any bowel or bladder changes. Patient denies any saddle anesthesia. Patient denies any trauma or injury. Patient denies any falls. Exam: Vital signs are stable. Patient is afebrile. Patient is in no acute distress. Oral mucosa is pink and moist. Neck is supple. Trachea is midline. There is no JVD. Heart was regular rate and rhythm. Lungs are clear and equal bilaterally. There is good respiratory effort noted. Abdomen is soft. Bowel sounds are normal. There is no tenderness. There is some mild right CVA tenderness. There is no rebound or guarding. Cranial nerves II through XII are intact. There are no focal motor or sensory deficits noted. There is no calf tenderness or edema noted. Medical Decision Making: Differential diagnosis includes lumbosacral strain, ureteral calculus, pyelonephritis, pneumonia, and muscle spasm. Chest x-ray will be obtained to assess for pneumonia and pneumothorax. Urinalysis will be obtained to assess for urinary tract infection, pyelonephritis, and hematuria. CT scan of the abdomen and pelvis will be obtained to assess for ureteral calculus and pyelonephritis. Patient was given morphine and Zofran. Patient was also given a dose of Valium. PA and lateral chest x-ray was obtained. There are 2 views. On my independent interpretation, lung burns are clear. There is normal cardiac silhouette. Bony thorax is normal. There is no acute process noted. Radiologist also interpreted the x-ray and agrees. CT scan of the abdomen and pelvis was obtained. There is prior cholecystectomy with chronic pneumobilia. There is moderate stool in the colon. There is diverticulosis but no evidence of diverticulitis. There is no evidence of ureteral or renal calculi. This was interpreted by the radiologist and was also independently reviewed by myself. Urinalysis was reviewed. There is no evidence of urinary tract infection or hematuria. Patient was advised of her findings. Patient was given a prescription for a short course of Valium. Patient was instructed to follow-up with her primary care physician in 5 to 7 days. Patient understood and was agreeable with the plan. All questions were answered. Lab Data Labs: Laboratory Results - last 24 hr 11/30/23 15:55 Urine Color Straw Urine Clarity Sl. Cloudy Urine pH 7.0 Ur Specific Mitchells 1.010 Urine Protein Negative Urine Glucose (UA) Normal Urine Ketones Negative Urine Occult Blood Negative Urine Nitrite Negative Urine Bilirubin Negative Urine Urobilinogen Normal Ur Leukocyte Esterase 25 H Urine RBC 0 SEEN Urine WBC 0-5 SEEN Ur Squamous Epith Cells 0 SEEN Urine Bacteria 1+ Urine Mucus 0 SEEN Radiography Chest X-Ray - ED: 2 View, Read by ED Physician, Read by Radiologist and No Acute Disease Diagnostic Testing: Clinical Impression(s) from Imaging Studies Chest X-Ray 11/30/23 12:37 IMPRESSION: No acute cardiopulmonary process identified. Electronically Signed: Rosa Maria Benavides MD at 14:10 EDT , Abdomen/Pelvis CT 11/30/23 13:57 IMPRESSION: Moderate stool in the colon. Colonic diverticulosis without acute diverticulitis. Cholecystectomy with chronic pneumobilia. Negative examination for renal stone. Electronically Signed: Rosa Maria Benavides MD at 15:07 EDT , Discharge Plan Triage Chief Complaint: Back ED Midlevel Provider: Tristan Granda ED Provider: Vincent Ngo Dx/Rx/DC Orders Clinical Impression: Acute thoracic myofascial strain, Muscle spasm Instructions: Muscle Spasm Prescriptions: New diazepam [Valium] 5 mg tablet 5 mg PO BID PRN (Reason: muscle spasm) Qty: 10 0RF No Action atorvastatin 40 mg tablet 40 mg PO QHS ibuprofen 600 mg tablet 600 mg PO Q8H PRN (Reason: Pain) vitamin E (dl, acetate) 90 mg (200 unit) capsule 90 mg PO DAILY aspirin 81 mg tablet,delayed release (DR/EC) 81 mg PO DAILY Calcium 600 + D(3) 600 mg-5 mcg (200 unit) capsule 1 cap PO DAILY omega-3 fatty acids-fish oil 300-1,000 mg capsule 1 cap PO SA Benefiber Clear SF (dextrin) 3 gram/3.5 gram powder in packet 3 g PO DAILY Rx Instructions: mix into at least 4 oz water or juice before administering loratadine [Claritin] 10 mg tablet 10 mg PO DAILY PRN (Reason: allergy symptoms) multivitamin Tablet 1 tab PO DAILY cholecalciferol (vitamin D3) 1,000 UNIT tablet 1,000 unit PO DAILY Healthy Eyes 300 mcg-200 mg-27 mg-2 mg tablet 1 tab PO DAILY Rx Instructions: administer after a meal FOCUS FACTOR 2 tab PO DAILY carvedilol 3.125 mg tablet 3.125 mg PO BID Rx Instructions: Take 1 tablet by mouth twice daily with food hydrocodone-acetaminophen [hydrocodone-acetaminophen] 5-325 mg tablet 1 tab PO Q4H PRN PRN (Reason: Pain) 2 Days Qty: 10 0RF diazepam [Valium] 2 mg tablet 2 mg PO TID PRN (Reason: muscle spasm) Qty: 14 0RF omeprazole 20 mg capsule,delayed release(DR/EC) 20 mg PO DAILY 30 Days Qty: 30 3RF hydrocortisone acetate 25 mg suppository 25 mg NV BID Qty: 28 0RF Primary Care Provider: Gavin Tran Referrals: Gavin Tran MD [Primary Care Provider] - Activity Restrictions/Additional Instructions: Take the Valium as needed, I would prefer more at nighttime, it is a sedating medication. Perform gentle stretching, ice and heat. Print Language: Irish Disposition Disposition: Home, Self Care
--- NOTE | 2023-11-30 12:37 | RAD_ITS ---
HISTORY: right chest/back pain. TECHNIQUE: XR Chest 2 Views. COMPARISON: 03/25/2020. FINDINGS: CARDIOMEDIASTINAL BORDERS: Cardiac silhouette within normal limits in size. Mediastinal contour also unchanged with calcification of the aorta. LUNGS: Chronic apical scarring and calcified granuloma in the left midlung. PLEURA: No pleural effusion or pneumothorax seen. OSSEOUS STRUCTURES: Degenerative change. RAD/Chest PA and Lateral IMPRESSION: No acute cardiopulmonary process identified. Electronically Signed: Rosa Maria Benavides MD at 14:10 EDT ,
[2023-11-30] MEDS: Ondansetron ODT 4 MG Tablet PO (12:56)
[2023-11-30] MEDS: Morphine 4 MG/ML Syringe IM (12:56)
--- NOTE | 2023-11-30 13:57 | CT_ITS ---
HISTORY: RT FLANK PAIN. TECHNIQUE: Helically acquired images were obtained of the abdomen and pelvis without oral or IV contrast. A radiation dose optimization technique was used for this scan. 432 images. COMPARISON: 03/25/2020. FINDINGS: LOWER CHEST: Chronic mild scarring in the lung bases. BOWEL: Bowel nondilated. Appendix not visualized. Colonic diverticulosis without focal pericolonic inflammation. Moderate stool throughout the colon. Right lower quadrant ileocolic and rectal anastomoses. PERITONEUM: No significant free fluid. LIVER/BILIARY TREE: Chronic intrahepatic pneumobilia. Cholecystectomy. SPLEEN: Calcified granulomas. PANCREAS/ADRENAL GLANDS: Nonenlarged. KIDNEYS AND URETERS: No nephrolithiasis or obstructing ureteral calculus. VESSELS: No abdominal aortic aneurysm. Moderate atherosclerosis of the abdominal aorta and its major branches. PELVIC ORGANS: Absent uterus. BONES: Degenerative change of the lower lumbar spine. CT/Abdomen/Pelvis without Cont IMPRESSION: Moderate stool in the colon. Colonic diverticulosis without acute diverticulitis. Cholecystectomy with chronic pneumobilia. Negative examination for renal stone. Electronically Signed: Rosa Maria Benavides MD at 15:07 EDT ,
[2023-11-30] MEDS: diazePAM 5 MG Tablet PO (14:32)
[2023-11-30 16:01] LABS: Mucous, Urine 0 SEEN /hpf (<or=2+); Red Blood Cells-Urine 0 SEEN /hpf (0-5); Squamous Epithelial Cells - UA 0 SEEN /hpf (5-10)
[2023-11-30 16:03] LABS: Color, Urine Straw (Yellow); Glucose, Dipstick Normal (Normal); Ketone-Dipstick Negative (Negative); Leukocyte Esterase-Dipstick 25 /ul (Negative); Nitrite-Dipstick Negative (Negative); Occult Blood-Urine Negative /ul (Negative); Protein-Dipstick Negative (Negative); Urine Bilirubin Dipstick Negative (Negative); Urine Clarity Sl. Cloudy (Clear); Urine Urobilinogen Normal (Normal)
[2023-11-30 16:07] VITALS: BP 151/74; PULSE 62; RESP 16; O2SAT 97
[2023-11-30 16:10] LABS: Bacteria 1+ /hpf (None Seen); White Blood Cells 0-5 SEEN /hpf (0-5)
[2023-11-30 16:30] VITALS: BP 151/74; PULSE 62; RESP 16; TEMP 36.7; O2SAT 97
== END 2023-11-30 16:30 | disposition home or self-care (01) ==
PROVIDERS: Emergency Provider Emergency Medicine; PCP Internal Medicine; Visit Provider Emergency Medicine
DX: S29.019A Strain of muscle and tendon of unspecified wall of thorax, initial encounter (principal); I25.10 Atherosclerotic heart disease of native coronary artery without angina pectoris; E78.00 Pure hypercholesterolemia, unspecified; M62.838 Other muscle spasm; K21.9 Gastro-esophageal reflux disease without esophagitis; K57.30 Diverticulosis of large intestine without perforation or abscess without bleeding; Z90.49 Acquired absence of other specified parts of digestive tract; X58.XXXA Exposure to other specified factors, initial encounter
CPT/HCPCS: 71046; 74176; 81001; 96372; 99282

== ENCOUNTER → 2023-12-16 | Outpatient (CLI) | payer MEDICARE, SELFPAY ==
[2023-12-16 13:10] LABS: AST(SGOT) 33 U/L (15-37); Alanine Aminotransfer ALT/SGPT 30 U/L (13-56); Albumin, Serum 3.7 g/dL (3.2-5.0); Alkaline Phosphatase 98 U/L (45-117); Bilirubin, Direct 0.28 mg/dL (0.00-0.30); Cholesterol 133 mg/dL (200); Globulin 3.3 g/dL (2.2-4.2); High Density Lipoprotein 68 mg/dL; Triglycerides 117 mg/dL; Very Low Density Lipoprotein 23 mg/dL (5-40)
== END | disposition home or self-care (01) ==
LOC: OLS.ABSOLU 09:21 → LAB 12-17 10:02
PROVIDERS: PCP Internal Medicine; Referring Provider Nurse Practitioner Gerontology; Visit Provider Nurse Practitioner Gerontology
DX: E78.5 Hyperlipidemia, unspecified (principal)
CPT/HCPCS: 36415; 80061; 80076

== ENCOUNTER → 2024-11-23 | Outpatient (CLI) | payer MEDICARE, SELFPAY ==
[2024-11-23 11:58] LABS: Hematocrit 39.8 % (37-47); Hemoglobin 13.4 g/dL (12.0-15.0); Immature Granulocytes Count 0.020 X10^3/uL (0.0-0.0); Mean Corp Hgb Conc 33.7 g/dL (32-36); Mean Corpuscular Volume 100.0 fL (81-99); Mean Platelet Vol. 10.0 fl (6.2-12.0); NRBC Flagged by Analyzer 0 % (0-5); Platelet Count 228 K/mm3 (150-450); RBC Distribution Width CV 11.6 % (11.6-14.6); RBC Distribution Width SD 42.3 fl (35.1-43.9); Red Blood Count 3.98 M/mm3 (4.2-5.4); White Blood Count 5.5 K/mm3 (4.4-11.0)
[2024-11-23 12:44] LABS: AST(SGOT) 26 U/L (<=31); Alanine Aminotransfer ALT/SGPT 20 U/L (<=34); Albumin, Serum 4.3 g/dL (3.4-4.8); Alkaline Phosphatase 89 U/L (35-104); Anion Gap 11 (5-15); BUN 15 mg/dL (4-19); BUN/Creat Ratio 25.8 RATIO (10-20); Calcium,Total 9.4 mg/dL (7.6-11.0); Carbon Dioxide 26.1 mmol/L (21.0-32.0); Chloride 106 mmol/L (98-108); Cholesterol 138 mg/dL (<=200); Globulin 2.4 g/dL (2.2-4.2); Glucose 87 mg/dL (70-99); Low Density Lipoprotein Calc. 39 mg/dL; Potassium 3.7 mmol/L (3.3-5.1); Triglycerides 132 mg/dL; Very Low Density Lipoprotein 26 mg/dL (5-40); cholesterol:hdl ratio screen 1.90
== END | disposition home or self-care (01) ==
LOC: LAB 10:59
PROVIDERS: PCP Internal Medicine; Referring Provider Student in an Organized Health Care Education/Training Program; Visit Provider Student in an Organized Health Care Education/Training Program
DX: R42 Dizziness and giddiness (principal); E78.5 Hyperlipidemia, unspecified; I49.1 Atrial premature depolarization
CPT/HCPCS: 36415; 80053; 80061; 85025

== ENCOUNTER → 2024-12-14 | Outpatient (CLI) | payer MEDICARE, SELFPAY ==
--- NOTE | 2024-12-14 08:05 | CDU_ITS ---
Reason For Study Reason For Study: DIZZINESS Rt. Velocities/BP Lt. Velocities/BP Prox CCA 114.3/17.5 cm/sec. Prox CCA 101.4/16.7 cm/sec. Mid CCA 83/14.2 cm/sec. Mid CCA 81.8/17.6 cm/sec. Dist CCA 58.9/13.8 cm/sec. Dist CCA 61/17.6 cm/sec. Prox ICA 170/30.1 cm/sec. Prox ICA 135.2/32 cm/sec. Mid ICA 103.4/30.3 cm/sec. Mid ICA 107.8/27.5 cm/sec. Dist ICA 71.1/24.8 cm/sec. Dist ICA 89.5/25.6 cm/sec. Rt. ICA/CCA = 2.05. Lt. ICA/CCA = 1.65. Prox ECA 141.8/5.7 cm/sec. Prox ECA 146.7/9.3 cm/sec. Rt. Vert. 63.3/7.3 cm/sec. Lt. Vert. 50.6/15.7 cm/sec. Right Extracranial There is homogeneous, smooth atherosclerotic plaque noted in the right common carotid artery. There is heterogeneous, irregular atherosclerotic plaque noted in the right internal carotid artery. There is intimal thickening but no significant atherosclerotic plaque noted in the right external carotid artery. Antegrade flow is noted in the right vertebral artery. Left Extracranial There is homogeneous, smooth atherosclerotic plaque noted in the left common carotid artery. There is heterogeneous, irregular atherosclerotic plaque noted in the left internal carotid artery. There is heterogeneous, irregular atherosclerotic plaque noted in the left external carotid artery. Antegrade flow is noted in the left vertebral artery. Procedure Carotid Duplex 18138. This is a Carotid Duplex examination using B-mode, color flow and specral Doppler. Exam performed in department. VL/Carotid Duplex Ultrasound Interpretation Summary Moderate (50-69%) stenosis right extracranial internal carotid. Moderate (50-69%) stenosis left extracranial internal carotid. Patent and antegrade vertebrals bilaterally. Ordering Physician: Berhane Shukla Referring Physician: Gavin Tran M.D. Performed By: Kayden Kruger RVT and Student
--- NOTE | 2024-12-14 08:05 | ECHOD_ITS ---
Reason For Study Reason For Study: Murmur Procedure This was a 2D Doppler, Color Flow transthoracic echocardiogram. Exam performed in department. Left Ventricle Normal LV size. Left ventricular systolic function is normal. The left ventricular ejection fraction is 65 %. No regional wall motion abnormalities noted. Right Ventricle Normal RV size. Normal systolic function. Atria Normal left atrium. Normal right atrium. Mitral Valve Normal mitral valve. There is mild mitral annular calcification. Tricuspid Valve Normal tricuspid valve. Mild (1+) tricuspid valve insufficiency. Pulmonary artery systolic pressure is 25 mmHg. Aortic Valve Trisinus/trileaflet aortic valve. Pulmonic Valve Normal pulmonic valve. Great Vessels Normal aortic root. The pulmonary artery is normal size. Inferior vena cava collapse with respiration. Pericardium/Pleural No pericardial effusion. MMode/2D Measurements & Calculations LVIDd: 4.2 cm IVSd: 1.1 cm CO(Teich): 3.3 l/min LVIDs: 2.6 cm LVPWd: 0.90 cm RVDd: 2.7 cm FS: 38.1 % Ao root diam: 3.3 cm LAV(MOD-bp): 31.8 ml LVAd ap4: 20.8 cm2 LAV(MOD-bp) Indexed: 19.4 ml/m2 LVLd ap4: 6.3 cm LAV(MOD-sp2): 25.2 ml EDV(MOD-sp4): 58.5 ml LAV(MOD-sp4): 33.1 ml EDV(sp4-el): 57.9 ml LVAs ap4: 11.0 cm2 LVLs ap4: 5.3 cm ESV(MOD-sp4): 20.4 ml ESV(sp4-el): 19.2 ml EF(MOD-sp4): 65.2 % EF(sp4-el): 66.8 % CO(MOD-sp4): 2.3 l/min SV(sp4-el): 38.7 ml LA A4 area: 14.6 cm2 SV(MOD-sp4): 38.1 ml SI(MOD-sp4): 23.2 ml/m2 LA dimension(2D): 3.0 cm RA A4 area: 12.9 cm2 TAPSE: 1.5 cm Time Measurements MV dec time: 0.22 sec Doppler Measurements & Calculations MV E max odell: 89.8 cm/sec Lat Peak E' Odell: 7.7 cm/sec Med Peak E' Odell: 7.0 cm/sec MV A max odell: 85.5 cm/sec E/E' lat: 11.7 E/E' med: 12.8 MV E/A: 1.1 MV V2 max: 102.4 cm/sec MV P1/2t max odell: 103.4 cm/sec Ao V2 max: 122.8 cm/sec MV max P.2 mmHg MV P1/2t: 76.5 msec Ao max P.0 mmHg MV V2 mean: 55.3 cm/sec Ao V2 mean: 82.4 cm/sec MV mean P.5 mmHg MV dec slope: 395.6 cm/sec2 Ao mean P.2 mmHg MV V2 VTI: 33.8 cm MVA(P1/2t): 2.9 cm2 Ao V2 VTI: 30.7 cm AV (velocity ratio): 0.72 LV V1 max: 105.6 cm/sec PA V2 max: 76.7 cm/sec TR max odell: 238.1 cm/sec LV V1 max P.5 mmHg TR max P.9 mmHg LV V1 mean P.1 mmHg LV V1 mean: 68.0 cm/sec LV V1 VTI: 22.2 cm ECHO/Echo Complete Interpretation Summary Normal LV size. Left ventricular systolic function is normal. The left ventricular ejection fraction is 65 %. Structurally normal valves. Ordering Physician: Berhane Shukla Referring Physician: Berhane Shukla Performed By: Murray Mina RCS
== END | disposition home or self-care (01) ==
PROVIDERS: PCP Internal Medicine; Referring Provider Student in an Organized Health Care Education/Training Program; Visit Provider Student in an Organized Health Care Education/Training Program
DX: R42 Dizziness and giddiness (principal); I35.1 Nonrheumatic aortic (valve) insufficiency
CPT/HCPCS: 93306; 93880

== ENCOUNTER → 2024-12-28 | Outpatient (CLI) | payer MEDICARE, SELFPAY ==
--- OUTSIDE RECORDS SUMMARY | 2024-12-28 07:01 | XMS RPT_ITS | CCD ---
Author Organization [facility] Care Team Providers Care Supervisor Publications Name Role Phone Gavin Tran MD Primary Care Provider Tee MA, Bernabe Go Unavailable Ignacia Dawn MD Unavailable Dr. Gavin Tran Primary Care Provider Janneth Edge Attending Provider Unavailable Dr. Gavin Tran Referring Provider Jason, Dr. Mcmahon Attending Provider Dr. Gavin Tran Primary Care Provider Janneth Edge Attending Provider Unavailable Dr. Gavin Tran Referring Provider Jason, Dr. Mcmahon Attending Provider Jason, Dr. Mcmahon Referring Provider Jason, Dr. Mcmahon Other Provider Gavin Tran MD Primary Care Provider Tee MA, Bernabe F Unavailable Ignacia Dawn MD Unavailable Dr. Baron Reid Attending Provider Dr. Baron Reid Other Provider Gavin Tran MD Primary Care Provider Tee MA, Bernabe F Unavailable Ignacia Dawn MD Unavailable Dr. Gavin Tran Primary Care Provider Lilliana, Dr. Alonso Referring Provider ALVIN Tam Attending Provider Cebul, Dr. Baron Fox Attending Provider Cebul, Dr. Baron Fox Other Provider Lilliana, Dr. Alonso Primary Care Provider Lilliana, Dr. Alonso Referring Provider Cebujensen, Dr. Baron Fox Attending Provider Cebul, Dr. Baron Fox Other Provider Gavin Tran MD Primary Care Provider Lilliana, Dr. Alonso Primary Care Provider Lilliana, Dr. Alonso Referring Provider ALVIN Tam Attending Provider Sharif Farmer MD Unavailable [facility] SENIOR GAMES TECHNICIAN.FINANCE SPECIALIST, Catina M Unavailable Carmen Hdez RN Unavailable Carmen Hdez RN Unavailable THUESTAD, LORNA A Attending Unavailable DIANE, LORNA A Admitting Unavailable IZZY MACDONALD Referring Unavaila ble MERHEB, YESICA Consulting Unavailable GAVIN TRAN Primary Care Unavailable Dr. Gavin Tran MD Primary Care Provider Dr. Gavin Tran MD Referring Provider Berhane Rodarte Attending Provider GAVIN TRAN Primary Care Unavailable BERNABE COX Attending Unavailable GAVIN TRAN Primary Care Unavailable SHARIF FARMER Attending Unavailabl e GAVIN TRAN Primary Care Unavailable KATIA BOYKIN Referring Unavailable GILBERTOKLE-IZZY PABLO Attending Unavaila ble TRAN, CARMEN Primary Care Unavailable TRAN, CARMEN Primary Care Unavailable IZZY MACDONALD Attending Unavaila ble TRAN, CARMEN Primary Care Unavailable BERNABE COX Attending Unavailable Berhane Rodarte Referring Provider [phone] TRAN, CARMEN Primary Care Unavailable LEMUEL HOWARD Referring Unavailable TRAN, CARMEN Primary Care Unavailable KB RUGGIERO Attending Unavailable TRAN, CARMEN Referring Unavailable LEMONKB Attending Unavailable TRAN, CARMEN Referring Unavailable TRAN, CARMEN Primary Care Unavailable TRAN, CARMEN Primary Care Unavailable CATINA REDDY Referring Unavailable TRAN, CARMEN Primary Care Unavailable TRAN, CARMEN Attending Unavailable TRAN, CARMEN Primary Care Unavailable TRAN, CARMEN Referring Unavailable TRAN, CARMEN Primary Care Unavailable CATINA REDDY Attending Unavailable TRAN, CARMEN Primary Care Unavailable TRAN, CARMEN Attending Unavailable TRAN, CARMEN Primary Care Unavailable ROSA ISELA KNAPP Attending Unavail able OUMAR FRANK Referring Unavailable TRAN, CARMEN Primary Care Unavailable JEANNINE KNIGHT Attending Unavailable TRAN, CARMEN Primary Care Unavailable OUMAR FRANK Attending Unavailable TRAN, CARMEN Primary Care Unavailable JÚNIOR HEREDIA Attending Unavailable TRAN, CARMEN Primary Care Unavailable TRAN, CARMEN Primary Care Unavailable TRAN, CARMEN Attending Unavailable LESLIE TRAN Attending Unavailable TRAN, CARMEN Primary Care Unavailable TRAN, CARMEN Primary Care Unavailable TRAN, CARMEN Primary Care Unavailable TRAN, CARMEN Attending Unavailable Dr. Vincent Álvarez MD Attending Provider Dr. Eulalio Pacheco MD Attending Provider [phone] Vincent Álvarez Attending Unavailable Tran, Gavin Primary Care Unavailable Tran, Gavin Primary Care Unavailable Eulalio Pacheco Attending Unavailable Tran, Gavin Primary Care Unavailable Tran, Gavin Referring Unavailable Berhane Shukla Attending Unavailable Tran, Gavin Primary Care Unavailable Demiter, Berhane Referring Unavailable Demiter, Berhane Attending Unavailable Gavin Tran Primary Care Unavailable Demiter, Berhane Attending Unavailable Demiter, Berhane Referring Unavailable Gavin Tran Primary Care Unavailable Demiter, Berhane Referring Unavailable Demiter, Berhane Attending Unavailable Gavin Tran Primary Care Unavailable Demiter, Berhane Attending Unavailable Demiter, Berhane Referring Unavailable Allergies Allergy Classification Reported Allergen(s) Allergy Type Date of Onset Reaction(s) Facility Dihydrofolate Reductase Inhibitors (antibiotic) (1 source) Trimethoprim Drug Allergy 12-31-19 19 Vomiting [facility] Lincosamides (antibiotic) (1 source) Clindamycin Drug Allergy 09-26-19 11 GI Upset [facility] Nitroimidazoles (antibiotic) (1 source) metroNIDAZOLE Drug Allergy 10-20-19 10 GI [facility] Quinolones (antibiotic) (1 source) levoFLOXacin Drug Allergy 12-31-19 19 GI [facility] Sulfamethoxazole / Trimethoprim (1 source) Sulfamethoxazole / Trimethoprim Drug Allergy 02-26-20 05 GI [facility] (20 sources) Clindamycin; Translations: [CLINDAMYCIN HCL] Drug Allergy 09-26-19 11 GI [facility] (20 sources) levoFLOXacin; Translations: [LEVOFLOXACIN] Drug Allergy 12-31-19 19 GI [facility] (20 sources) metroNIDAZOLE; Translations: [METRONIDAZOLE HCL] Drug Allergy 10-20-19 10 GI [facility] (20 sources) Sulfamethoxazole / Trimethoprim; Translations: [SULFAMETHOXAZOLE-T RIMETHOPRIM] Drug Allergy 02-26-20 05 GI [facility] (20 sources) Trimethoprim; Translations: [TRIMETHOPRIM] Drug Allergy 12-31-19 19 Vomiting [facility] (20 sources) Gadolinium-Containi ng Contrast Media; Translations: [GADOLINIUM-CONTAIN ING CONTRAST MEDIA] Drug Intolerance 10-29-19 18 Hives [facility] (15 sources) Clindamycin Drug Allergy 03-25-20 20 nausea/vomiti [facility] (15 sources) metroNIDAZOLE Drug Allergy 03-25-20 20 Nausea [facility] (15 sources) Sulfamethoxazole Drug Allergy 03-25-20 20 nausea/vomiti [facility] (16 sources) Gadolinium-MRI Contrast Medium; Translations: [Gadolinium-MRI Contrast Medium] Allergy to substance 03-25-20 [facility] (20 sources) Gadolinium-Containi ng Contrast Media Drug Intolerance 10-29-19 [facility] (1 source) Clindamycin Drug Allergy 11-24-19 [facility] (1 source) levoFLOXacin Drug Allergy 11-24-19 [facility] (1 source) metroNIDAZOLE Drug Allergy 11-24-19 [facility] (1 source) Sulfamethoxazole Drug Allergy 11-24-19 [facility] (1 source) Trimethoprim Drug Allergy 11-24-19 [facility] Medications Current Medications Medication Drug Class(es) Dates Sig (Normalized) Sig (Original) acetaminophen 325 mg oral tablet (6 sources) Start: 02-21-2023 End: 02-28-2023 take 325-650 mg by mouth every four hours as needed acetaminophen (TYLENOL) 325 mg tablet Take 1-2 tablets by mouth every 4 hours as needed for pain for up to 7 days. 30 tablet 0 02/21/2023 02/28/2023 Active Start: 12-07-2017 take 650 mg by mouth every six hours as needed Acetaminophen Active 650 MG PO EVERY 6 HOURS NEEDED December 06, 2017 11:00pm Comment on above: Take 1-2 tablets by mouth every 4 hours as needed for pain for up to 7 days. alendronic acid 70 mg oral tablet (20 sources) Bisphosphonate Start: 4 End: 5 take 1 tablet by mouth every week alendronate (FOSAMAX) 70 mg tablet Take 1 tablet by mouth one time a week. Take with a full glass of water, on an empty stomach; do NOT lie down for 30minutes. 12 tablet 3 09/28/2024 Active aspirin 81 mg delayed release oral tablet (20 sources) Platelet Aggregation Inhibitor, Nonsteroidal Anti-inflammatory Drug Start: 2 take 1 tablet by mouth once daily Aspirin 81 mg tablet,delayed release (DR/EC) Active 81 mg PO DAILY January 31, 2022 12:00am Start: 10-16-2005 take 1 tablet by christian once daily ASPIRIN 81 MG TAB Take 81 mg by mouth once daily. 0 10/16/2005 Active Comment on above: Take one (1) tablet daily . Take 81 mg by mouth once daily. atorvastatin 40 mg oral tablet (20 sources) HMG-CoA Reductase Inhibitor Start: 1 End: 4 take 1 tablet by mouth at bedtime Atorvastatin 40 mg tablet Active 40 mg PO AT BEDTIME January 31, 2022 12:00am Start: 11-21-2017 End: 01-31-2022 take 2 tablets by mouth at bedtime Atorvastatin 20 mg tablet Discontinued 40 mg PO AT BEDTIME November 21, 2017 1:40pm January 31, 2022 3:31pm cholesterol Start: 11-21-2017 End: 01-31-2022 take 40 mg by mouth at bedtime Atorvastatin Discontinu ed 40 MG PO AT BEDTIME November 21, 2017 1:40pm January 31, 2022 3:31pm Start: 01-05-2017 End: 11-21-2017 take 1 tablet by mouth at bedtime Atorvastatin 20 MG tablet Discontinued 20 mg PO AT BEDTIME January 05, 2017 12:00am November 21, 2017 1:43pm Comment on above: TAKE 1 TABLET EVERY DAY AT BEDTIME FOR CHOLESTEROL calcium carbonate 1500 mg / cholecalciferol 200 unt oral capsule (20 sources) Vitamin D Start: 01-31-2022 Calcium Carbonate-Vitamin D3 (Calcium 600 + D(3)) 600 mg-5 mcg (200 unit) capsule Active 1 NMA PO DAILY January 31, 2022 12:00am Start: 10-16-2005 CALCIUM + D 60 0 MG-200 UNIT TAB Take one(1) tablet daily. 0 10/16/2005 Active Comment on above: Take one(1) tablet d aily. cholecalciferol 0.025 mg oral tablet (20 sources) Vitamin D Start: 03-25-20 20 take 1 tablet by mouth once daily Cholecalciferol (Vitamin D3) 1,000 UNIT tablet Active 1000 U PO DAILY March 25, 2020 1:00am Start: 01-21-2020 take 1 capsule by [facility] once daily Cholecalciferol, Vitamin D3, 25 mcg (1,000 unit) cap Take 1 capsule by mouth once daily. 01/21/2020 Active Comment on above: Take 1 capsule by mo [facility] once daily. clobetasol propionate 0.0005 mg/mg topical ointment (6 sources) Corticosteroid Start: 12-17-2024 clobetasol (TEMOVATE) 0.05 % ointment Indications: Vulvar dermatitis , Lichen sclerosus et atrophicus Apply to affected area (pea sized amount) BID x 4 weeks then use weekly 45 g 1 12/17/2024 Active Start: 10-04-2024 End: 11-30-2024 clobetasol (TEMOVATE) 0.05 % ointment Indications: Vaginal itching Apply 1 application to affected area two times a day. 15 g 4 10/04/2024 11/30/2024 Discontinued doxycycline monohydrate 100 mg oral capsule (1 source) Tetracycline-class Drug Start: 10-04-2024 End: 10-04-2024 take 2 capsules by mouth once doxycycline monohydrate (MONODOX) 100 mg capsule Take 2 capsules by mouth one time only for 1 dose. 2 capsule 10/04/2024 10/04/2024 Active fentaNYL citrate, PF, 50 mcg/mL syrg (8 sources) Start: 02-12-2022 End: 02-12-2022 inject 25 ug intravenously once fentaNYL citrate, PF, 50 mcg/mL syrg Inject 25 mcg intravenously one time only for 1 dose. 0.5 mL 0 02/12/2022 02/12/2022 Active Start: 01-29-2022 End: 01-29-2022 inject 25 ug intravenously once fentaNYL citrate, PF, 50 mcg/mL syrg Inject 25 mcg intravenously one time only for 1 dose. 0.5 mL 0 01/29/2022 01/29/2022 Active Start: 01-15-2022 End: 01-15-2022 inject 25 ug intravenously once fentaNYL citrate, PF, 50 mcg/mL syrg Inject 25 mcg intravenously one time only for 1 dose. 0.5 mL 0 01/15/2022 01/15/2022 Start: 01-15-2022 End: 01-15-2022 inject 25 ug intravenously once fentaNYL citrate, PF, 50 mcg/mL syrg Inject 25 mcg intravenously one time only for 1 dose. 0.5 mL 0 01/15/2022 01/15/2022 Active Comment on above: Inject 25 mcg intrav enously one time only for 1 dose. fluconazole 150 mg oral tablet (1 source) Azole Antifungal Start: 2024 End: 2024 take 1 tablet by mouth once daily fluconazole (DIFLUCAN) 150 mg tablet Take 1 tablet by mouth once daily for 1 day. 1 tablet 2024 09/07/2024 Active fluticasone propionate 0.05 mg/actuat metered dose nasal spray (20 sources) Corticosteroid Start: 2022 take 2 spray(s) by mouth once daily fluticasone (FLONASE) 50 mcg/actuation nasal spray Indications: Sinus congestion Use 2 Sprays in each nostril once daily. Rinse mouth after use. 1 Each 12/06/2022 Active Comment on above: Use 2 Sprays in each nostril once daily. Rinse mouth after use. Hydrocortisone (2 sources) Corticosteroid Start: 2023 Hydrocortisone Acetate Active 25 MG RC TWICE A DAY April 23, 2023 1:00am iv contrast (will be provided with radiology test) (20 sources) Start: 2024 inject 1 dose intravenously once iv contrast (will be provided with radiology test) Indications: Benign meningioma of brain (HCC) MRI Brain Inject, intravenously, once for 1 dose.No IV access, insert saline lock prior to beginning of sedation, infusion, injection of imaging exam.Discontinue saline lock post exam. If Pt. has a central line or IVAD, may access for administration according to line specific nursing protocol.Once exam is complete flush line and de-access according to line specific nursing protocol in the MR contrast administration guidelines link 1 each 08/31/2024 Active Start: 08-03-2024 End: 08-31-2024 inject 1 dose intravenously once iv contrast (will be provided with radiology test) Indications: Benign meningioma of brain (HCC) MRI Brain Inject, intravenously, once for 1 dose.No IV access, insert saline lock prior to beginning of sedation, infusion, injection of imaging exam.Discontinue saline lock post exam. If Pt. has a central line or IVAD, may access for administration according to line specific nursing protocol.Once exam is complete flush line and de-access according to line specific nursing protocol in the MR contrast administration guidelines link 1 each 08/03/2024 08/31/2024 Discontinued Start: 08-03-2024 inject 1 dose intravenously on ce iv contrast (will be provided with radiology test) Indications: Benign meningioma of brain (HCC) MRI Brain Inject, intravenously, once for 1 dose.No IV access, insert saline lock prior to beginning of sedation, infusion, injection of imaging exam.Discontinue saline lock post exam. If Pt. has a central line or IVAD, may access for administration according to line specific nursing protocol.Once exam is complete flush line and de-access according to line specific nursing protocol in the MR contrast administration guidelines link 1 each 08/03/2024 Active Start: 09-23-2023 End: 09-30-2023 inject 1 dose intravenously once iv contrast (will be provided with radiology test) Indications: Benign meningioma of brain (HCC) MRI Brain Inject, intravenously, once for 1 dose.No IV access, insert saline lock prior to beginning of sedation, infusion, injection of imaging exam.Discontinue saline lock post exam. If Pt. has a central line or IVAD, may access for administration according to line specific nursing protocol.Once exam is complete flush line and de-access according to line specific nursing protocol in the MR contrast administration guidelines link 1 Each 0 09/23/2023 09/30/2023 Discontinued Start: 09-23-2023 inject 1 dose intravenously on ce iv contrast (will be provided with radiology test) Indications: Benign meningioma of brain (HCC) MRI Brain Inject, intravenously, once for 1 dose.No IV access, insert saline lock prior to beginning of sedation, infusion, injection of imaging exam.Discontinue saline lock post exam. If Pt. has a central line or IVAD, may access for administration according to line specific nursing protocol.Once exam is complete flush line and de-access according to line specific nursing protocol in the MR contrast administration guidelines link 1 Each 0 09/23/2023 Active Start: 09-03-2022 End: 03-20-2023 inject 1 dose intravenously once iv contrast (will be provided with radiology test) Indications: Benign meningioma of brain (HCC) MRI Brain Inject, intravenously, once for 1 dose.No IV access, insert saline lock prior to beginning of sedation, infusion, injection of imaging exam.Discontinue saline lock post exam. If Pt. has a central line or IVAD, may access for administration according to line specific nursing protocol.Once exam is complete flush line and de-access according to line specific nursing protocol in the MR contrast administration guidelines link 1 Each 0 09/03/2022 03/20/2023 Discontinued (Course of therapy completed) Start: 09-03-2022 inject 1 dose intravenously on ce iv contrast (will be provided with radiology test) Indications: Benign meningioma of brain (HCC) MRI Brain Inject, intravenously, once for 1 dose.No IV access, insert saline lock prior to beginning of sedation, infusion, injection of imaging exam.Discontinue saline lock post exam. If Pt. has a central line or IVAD, may access for administration according to line specific nursing protocol.Once exam is complete flush line and de-access according to line specific nursing protocol in the MR contrast administration guidelines link 1 Each 0 09/03/2022 Active Start: 02-26-2022 End: 09-02-2022 inject 1 dose intravenously once iv contrast (will be provided with radiology test) Indications: Benign meningioma of brain (HCC) MRI Brain Inject, intravenously, once for 1 dose.No IV access, insert saline lock prior to beginning of sedation, infusion, injection of imaging exam.Discontinue saline lock post exam. If Pt. has a central line or IVAD, may access for administration according to line specific nursing protocol.Once exam is complete flush line and de-access according to line specific nursing protocol in the MR contrast administration guidelines link 1 Each 0 02/26/2022 09/02/2022 Discontinued (Course of therapy completed) Start: 02-26-2022 inject 1 dose intravenously on ce iv contrast (will be provided with radiology test) Indications: Benign meningioma of brain (HCC) MRI Brain Inject, intravenously, once for 1 dose.No IV access, insert saline lock prior to beginning of sedation, infusion, injection of imaging exam.Discontinue saline lock post exam. If Pt. has a central line or IVAD, may access for administration according to line specific nursing protocol.Once exam is complete flush line and de-access according to line specific nursing protocol in the MR contrast administration guidelines link 1 Each 0 02/26/2022 Active Start: 02-05-2022 inject 1 dose intravenously on ce iv contrast (will be provided with radiology test) Indications: Benign meningioma of brain (HCC) , Benign neoplasm of meninges (HCC) MRI Brain Inject, intravenously, once for 1 dose.No IV access, insert saline lock prior to beginning of sedation, infusion, injection of imaging exam.Discontinue saline lock post exam. If Pt. has a central line or IVAD, may access for administration according to line specific nursing protocol.Once exam is complete flush line and de-access according to line specific nursing protocol in the MR contrast administration guidelines link 1 Each 0 02/05/2022 Active Start: 01-16-2022 End: 01-17-2022 inject 1 dose intravenously once iv contrast (will be provided with radiology test) MRI Brain Inject, intravenously, once for 1 dose.No IV access, insert saline lock prior to beginning of sedation, infusion, injection of imaging exam.Discontinue saline lock post exam. If Pt. has a central line or IVAD, may access for administration according to line specific nursing protocol.Once exam is complete flush line and de-access according to line specific nursing protocol in the MR contrast administration guidelines link 1 Each 0 01/16/2022 01/17/2022 Start: 01-16-2022 End: 01-17-2022 inject 1 dose intravenously once iv contrast (will be provided with radiology test) MRI Brain Inject, intravenously, once for 1 dose.No IV access, insert saline lock prior to beginning of sedation, infusion, injection of imaging exam.Discontinue saline lock post exam. If Pt. has a central line or IVAD, may access for administration according to line specific nursing protocol.Once exam is complete flush line and de-access according to line specific nursing protocol in the MR contrast administration guidelines link 1 Each 0 01/16/2022 01/17/2022 Active Start: 11-13-2021 End: 02-05-2022 inject 1 dose intravenously once iv contrast (will be provided with radiology test) Indications: Benign meningioma of brain (HCC) , Benign neoplasm of meninges (HCC) MRI Brain Inject, intravenously, once for 1 dose.No IV access, insert saline lock prior to beginning of sedation, infusion, injection of imaging exam.Discontinue saline lock post exam. If Pt. has a central line or IVAD, may access for administration according to line specific nursing protocol.Once exam is complete flush line and de-access according to line specific nursing protocol in the MR contrast administration guidelines link 1 Each 0 11/13/2021 02/05/2022 Discontinued (Course of therapy completed) Start: 11-13-2021 inject 1 dose intravenously on ce iv contrast (will be provided with radiology test) Indications: Benign meningioma of brain (HCC) , Benign neoplasm of meninges (HCC) MRI Brain Inject, intravenously, once for 1 dose.No IV access, insert saline lock prior to beginning of sedation, infusion, injection of imaging exam.Discontinue saline lock post exam. If Pt. has a central line or IVAD, may access for administration according to line specific nursing protocol.Once exam is complete flush line and de-access according to line specific nursing protocol in the MR contrast administration guidelines link 1 Each 0 11/13/2021 Active Comment on above: MRI Brain Inject, in travenously, once for 1 dose.No IV access, insert saline lock prior to beginning of sedation, infusion, injection of imaging exam.Discontinue saline lock post exam. If Pt. has a central line or IVAD, may access for administration according to line specific nursing protocol.Once exam is complete flush line and de-access according to line specific nursing protocol in the MR contrast administration guidelines link lactobacillus rhamnosus gg [id number] unt oral capsule (18 sources) Start: take 1 capsule by mouth once daily lactobacillus rhamnosus (CULTURELLE) 10 billion cell capsule Take 1 capsule by mouth once daily. 04/11/2024 Active lidocaine 25 mg/ml / prilocaine 25 mg/ml topical cream (8 sources) Antiarrhythmic, Amide Local Anesthetic Start: End: lidocaine-prilocaine -silicone 2.5-2.5 % kit Apply 1 application to affected area one time only for 1 dose. Topical to pin sites 1 Kit 0 02/12/2022 02/12/2022 Active Start: 01-29-2022 End: 01-29-2022 hgsmuulnp-yisyfsgqmf-qkptiqa e 2.5-2.5 % kit Apply 1 application to affected area one time only for 1 dose. Topical to pin sites 1 Kit 0 01/29/2022 01/29/2022 Active Start: 01-15-2022 End: 01-15-2022 eyriwngva-bhoajhytib-wuuhvni e 2.5-2.5 % kit Apply 1 application to affected area one time only for 1 dose. Topical to pin sites 1 Kit 0 01/15/2022 01/15/2022 Comment on above: Apply 1 application to affected area one time only for 1 dose. Topical to pin sites lidocaine 1%-EPINEPHrine 1:100,000 60 mL, sodium bicarbonate 20 mEq in NaCl 0.9% 1,000 mL (TUMESCENT) (8 sources) Start: 02-12-2022 End: 02-12-2022 lidocaine 1%-EPINEPHrine 1:100,000 60 mL, sodium bicarbonate 20 mEq in NaCl 0.9% 1,000 mL (TUMESCENT) Inject 19 mL subcutaneously one time only for 1 dose. 19 mL 0 02/12/2022 02/12/2022 Active Start: 01-29-2022 End: 01-29-2022 lidocaine 1%-EPINEPHrine 1:1 00,000 60 mL, sodium bicarbonate 20 mEq in NaCl 0.9% 1,000 mL (TUMESCENT) Inject 25 mL subcutaneously one time only for 1 dose. 25 mL 0 01/29/2022 01/29/2022 Active Start: 01-15-2022 End: 01-15-2022 lidocaine 1%-EPINEPHrine 1:1 00,000 60 mL, sodium bicarbonate 20 mEq in NaCl 0.9% 1,000 mL (TUMESCENT) Inject 17 mL subcutaneously one time only for 1 dose. 17 mL 0 01/15/2022 01/15/2022 Start: 01-15-2022 End: 01-15-2022 lidocaine 1%-EPINEPHrine 1:1 00,000 60 mL, sodium bicarbonate 20 mEq in NaCl 0.9% 1,000 mL (TUMESCENT) Inject 17 mL subcutaneously one time only for 1 dose. 17 mL 0 01/15/2022 01/15/2022 Active Comment on above: Inject 17 mL subcuta neously one time only for 1 dose. Inject 25 mL subcuta neously one time only for 1 dose. Inject 19 mL subcuta neously one time only for 1 dose. meclizine hydrochloride 12.5 mg oral tablet (20 sources) Antiemetic Start: 12-31-19 take 2 tablets by mouth every eight hours as needed meclizine (ANTIVERT) 12.5 mg tab Take 2 tablets by mouth three times a day as needed. 15 tablet 12/31/2023 Active Start: 02-27-2023 take 1 tablet by christian th every six hours as needed meclizine (ANTIVERT) 25 mg tab Take 1 tablet by mouth every 6 hours as needed (dizziness). 15 tablet 02/27/2023 Active Comment on above: Take 1 tablet by christian th every 6 hours as needed (dizziness). methylPREDNISolone (5 sources) Corticosteroid Start: 08-03-2024 End: 08-09-2024 methylPREDNISolone (MEDROL, RUBY,) 4 mg Dose-Pack Indications: Sesamoiditis of right foot Take as directed 21 tablet 08/03/2024 08/09/2024 Active Start: 11-27-2023 End: 12-03-2023 methylPREDNISolone (MEDROL, RUBY,) 4 mg Dose-Pack Follow dosing instructions, take with food. 21 tablet 0 11/27/2023 12/03/2023 Active Start: 11-05-2021 End: 11-11-2021 methylPREDNISolone (MEDROL, RUBY,) 4 mg Dose-Pack Follow dosing instructions, take with food. 1 Package 0 11/05/2021 11/11/2021 Active Comment on above: Follow dosing instru ctions, take with food. 5 ml midazolam 1 mg/ml injection (8 sources) Benzodiazepine Start: End: inject 0.5 mL intravenously once midazolam (VERSED) 1 mg/mL injection Inject 0.5 mL intravenously one time only for 1 dose. 0.5 mL 0 02/12/2022 02/12/2022 Active Start: 01-29-2022 End: 01-29-2022 inject 0.5 mL intravenously once midazolam (VERSED) 1 mg/mL injection Inject 0.5 mL intravenously one time only for 1 dose. 0.5 mL 0 01/29/2022 01/29/2022 Active Start: 01-15-2022 End: 01-15-2022 inject 0.5 mL intravenously once midazolam (VERSED) 1 mg/mL injection Inject 0.5 mL intravenously one time only for 1 dose. 0.5 mL 0 01/15/2022 01/15/2022 Comment on above: Inject 0.5 mL intrav enously one time only for 1 dose. molnupiravir (LAGEVRIO, EUA,) 200 mg capsule (2 sources) Start: 02-29-20 End: 03-05-20 take 4 capsules by mouth twice daily molnupiravir (LAGEVRIO, EUA,) 200 mg capsule Take 4 capsules by mouth two times a day for 5 days. 40 capsule 0 02/28/2023 03/05/2023 Active Start: 02-28-2023 End: 02-28-2023 take 4 capsules by mouth twice daily molnupiravir (LAGEVRIO, EUA,) 200 mg capsule Take 4 capsules by mouth two times a day for 5 days. 40 capsule 0 02/28/2023 02/28/2023 Discontinued Comment on above: Take 4 capsules by m out two times a day for 5 days. Multivitamin preparation (20 sources) Start: take 1 tablet by mouth once daily Multivitamin Active 1 TABLET PO DAILY January 31, 2022 2:34pm Start: 01-31-2022 take 1 tablet by christian th once daily Multivitamin Active 1 TABLET PO DAILY January 31, 2022 3:34pm Start: 01-05-2017 Multivitamin A ctive 1 EACH PO DAILY January 05, 2017 12:54pm Start: 01-05-2017 End: 01-31-2022 Multivitamin Discontinued 1 EACH PO DAILY January 04, 2017 11:00pm January 31, 2022 2:36pm Start: 01-05-2017 End: 01-31-2022 Multivitamin Discontinued 1 EACH PO DAILY January 05, 2017 12:00am January 31, 2022 3:36pm Start: 01-05-2017 Multivitamin A ctive 1 EACH PO DAILY January 05, 2017 12:00am MULTIVITAMIN TAB (20 sources) Start: 10-16-2005 MULTIVITAMIN T AB Take one(1) tablet daily. 0 10/16/2005 Active Comment on above: Take one(1) tablet d aily. Multivitamin tablet (3 sources) Start: 01-31-2022 Multivitamin t ablet Active 1 {tbl} PO DAILY January 31, 2022 3:34pm supplement naproxen 500 mg oral tablet (20 sources) Nonsteroidal Anti-inflammatory Drug Start: 02-26-2023 Naproxen Active M G PO February 26, 2023 12:00am Start: 02-21-2023 take 1 tablet by christian th twice daily at mealtime naproxen (NAPROSYN) 500 mg tablet Take 1 tablet by mouth two times a day with meals. 30 tablet 02/21/2023 Active Comment on above: Take 1 tablet by christian th two times a day with meals. Perry-3 Fatty Acids (FISH OIL) ORAL Cap (20 sources) Start: 01-15-2007 take 1 capsule by mouth once daily Perry-3 Fatty Acids (FISH OIL) ORAL Cap Take one(1) capsule daily. 0 01/15/2007 Active Comment on above: Take one(1) capsule daily. Perry-3 Fatty Acids-Fish Oil (20 sources) Start: 02-11-2022 Perry-3 Fatty Acids-Fish Oil Active 1 CAP PO SA February 11, 2022 11:21am Start: 02-11-2022 Perry-3 Fatty Acids-Fish Oil Active 1 CAP PO SA February 11, 2022 10:21am Start: 02-11-2022 take 1 capsule by mo uth every week Perry-3 Fatty Acids-Fish Oil Active 1 CAP PO .Qwk February 11, 2022 10:21am Start: 02-11-2022 take 1 capsule by mo uth every week Perry-3 Fatty Acids-Fish Oil Active 1 CAP PO .Qwk February 11, 2022 11:21am Start: 01-31-2022 End: 02-11-2022 take 1 capsule by mouth once daily Perry-3 Fatty Acids-Fish Oil Discontinued 1 CAP PO DAILY January 30, 2022 11:00pm February 11, 2022 10:22am Start: 01-31-2022 End: 02-11-2022 take 1 capsule by mouth once daily Perry-3 Fatty Acids-Fish Oil Discontinued 1 CAP PO DAILY January 31, 2022 12:00am February 11, 2022 11:22am Perry-3 Fatty Acids-Fish Oil 300-1,000 mg capsule (6 sources) Start: 02-11-2022 Perry-3 Fatty Acids-Fish Oil 300-1,000 mg capsule Active 1 NMA PO SA February 11, 2022 11:21am Start: 01-31-2022 End: 02-11-2022 Perry-3 Fatty Acids-Fish Oil 300-1,000 mg capsule Discontinued 1 NMA PO DAILY January 31, 2022 12:00am February 11, 2022 11:22am predniSONE 50 mg oral tablet (20 sources) Start: 08-03-2024 End: 08-04-2024 predniSONE (DELTASONE) 50 mg Indications: Benign meningioma of brain (HCC) Take 1 tablet by mouth every 6 hours for 3 doses. For prevention of contrast allergy given 13 hrs, 7 hrs, and 1 hr prior to exam. 3 tablet 08/03/2024 08/04/2024 Active Start: 10-19-2023 End: 10-28-2023 predniSONE (DELTASONE) 10 mg tablet Take 4 tabs daily for 3 days, then 2 tabs daily for 3 days, then 1 tab daily for 3 days with food. 21 tablet 0 10/19/2023 10/28/2023 Active Start: 09-05-2023 End: 09-30-2023 predniSONE (DELTASONE) 50 mg Indications: Benign meningioma of brain (HCC) , Claustrophobia Take one tablet at 13, 7 and 1 hour prior to MRI. 3 tablet 0 09/05/2023 09/30/2023 Discontinued Start: 12-06-2022 End: 12-11-2022 take 1 tablet by mouth once daily predniSONE (DELTASONE) 20 mg tablet Indications: Sinus congestion Take 1 tablet by mouth once daily for 5 days. 5 tablet 0 12/06/2022 12/11/2022 Active Start: 08-23-2022 End: 08-29-2022 take 1 tablet by mouth every hour predniSONE (DELTASONE) 50 mg Take 1 tab by mouth 13, 7, and 1 hour prior to MRI. 3 tablet 0 08/23/2022 08/29/2022 Start: 01-17-2022 End: 02-08-2022 predniSONE (DELTASONE) 50 mg Indications: Benign meningioma of brain (HCC) , Allergy, subsequent encounter Take 1 tablet by mouth as directed. Take one tablet 13 hours prior to MRI, take one tablet 7 hours prior to MRI, take one tablet 1 hour prior to MRI on 02/12/2022 3 tablet 0 02/08/2022 Active Start: 11-13-2021 End: 11-14-2021 predniSONE (DELTASONE) 50 mg Indications: Benign meningioma of brain (HCC) , Benign neoplasm of meninges (HCC) Take 1 tablet by mouth every 6 hours for 3 doses. MRI contrast prep- to be taken at 13 hours prior, 7 hours prior, and 1 hour prior to MRI 3 tablet 0 11/13/2021 11/14/2021 Active Start: 08-30-2021 End: 08-31-2021 predniSONE (DELTASONE) 50 mg Indications: Benign meningioma of brain (HCC) Take 1 tablet by mouth every 6 hours for 3 doses. MRI contrast prep- to be taken at 13 hours prior, 7 hours prior, and 1 hour prior to MRI 3 tablet 0 08/30/2021 08/31/2021 Active Comment on above: Take 1 tablet by christian th every 6 hours for 3 doses. MRI contrast prep- to be taken at 13 hours prior, 7 hours prior, and 1 hour prior to MRI Take 1 tablet by christian th as directed. Take one tablet 13 hours prior to MRI, take one tablet 7 hours prior to MRI, take one tablet 1 hour prior to MRI on 01/29/2022 Take 1 tablet by christian th as directed. Take one tablet 13 hours prior to MRI, take one tablet 7 hours prior to MRI, take one tablet 1 hour prior to MRI on 02/12/2022 Take 1 tab by mouth 13, 7, and 1 hour prior to MRI. Take 1 tablet by christian th once daily for 5 days. psyllium 3400 mg powder for oral suspension (3 sources) Start: 04-10-2024 End: 05-10-2024 take 1 dose by mouth twice daily psyllium (METAMUCIL) 3.4 gram packet Take 1 Packet by mouth two times a day. 60 Packet 04/10/2024 05/10/2024 Active Vit A,C And X-Khqxoe-Scmlgoqn (Healthy Eyes) 300 mcg-200 mg-27 mg-2 mg tablet (7 sources) Start: 03-28-2023 Vit A,C And A-Thtnzz-Mwvoiqyz (Healthy Eyes) 300 mcg-200 mg-27 mg-2 mg tablet Active 1 {tbl} PO DAILY March 28, 2023 1:00am administer after a meal Start: 03-28-2023 take 1 tablet by christian th once daily after mealtime Vit A,C And E-Ijdmdm-Wyafdyge (Healthy Eyes) 300 mcg-200 mg-27 mg-2 mg tablet Active 1 TABLET PO DAILY March 28, 2023 1:00am administer after a meal Start: 03-28-2023 take 1 tablet by christian th once daily after mealtime Vit A,C And P-Rlhuev-Hdjzolyu (Healthy Eyes) 300 mcg-200 mg-27 mg-2 mg tablet Active 1 TABLET PO DAILY March 28, 2023 12:00am administer after a meal vitamin e 90 mg oral capsule (20 sources) Start: 01-31-2022 take 1 capsule by mouth once daily Vitamin E (Dl, Acetate) 90 mg (200 unit) capsule Active 90 mg PO DAILY January 31, 2022 12:00am Start: 11-21-2017 End: 01-31-2022 Vitamin E 1,000 unit capsule Discontinued 400 U PO DAILY November 21, 2017 1:41pm January 31, 2022 3:32pm supplement Start: 11-21-2017 End: 01-31-2022 take 400 [IU] by mouth once daily Vitamin E Discontinued 400 UNIT PO DAILY November 21, 2017 1:41pm January 31, 2022 3:32pm Start: 01-05-2017 End: 11-21-2017 take 1 capsule by mouth once daily Vitamin E 1,000 UNIT capsule Discontinued 1000 U PO DAILY January 05, 2017 12:00am November 21, 2017 1:43pm Start: 09-21-2007 take 1 capsule by mo [facility] once daily VITAMIN E 200 UNIT CAP Take 200 Units by mouth once daily. 0 09/21/2007 Active Comment on above: Take one(1) tablet d aily. Take 200 Units by mo ut once daily. Completed/Discontinued Medications Medication Drug Class(es) Dates Sig (Normalized) Sig (Original) acetaminophen 325 mg / HYDROcodone bitartrate 5 mg oral tablet (19 sources) Opioid Agonist Start: 08-31-2023 End: 12-10-2023 Hydrocodone-Acetami nophen 5-325 mg tablet Discontinued 1 {tbl} PO EVERY 4 HOURS NEEDED as needed for Pain 10 2 0 August 31, 2023 December 10, 2023 9:43am Back pain Dorsalgia, unspecified Start: 08-31-2023 take 1 tablet by christian every four hours as needed Hydrocodone-Acetaminophen Active 1 TABLE T PO EVERY 4 HOURS NEEDED 10 2 August 31, 2023 Start: 01-05-2017 End: 11-21-2017 Hydrocodone-Acetaminophen 1 TABLET tablet Discontinued 1 - 2 {tbl} PO EVERY 4 HOURS NEEDED as needed for Pain 12 0 January 05, 2017 12:00am November 21, 2017 1:42pm Start: 01-05-2017 End: 11-21-2017 take 1 tablet by mouth every four hours as needed Hydrocodone-Acetaminophen Discontinued 1 - 2 TABLET PO EVERY 4 HOURS NEEDED January 05, 2017 12:00am November 21, 2017 1:42pm acetaminophen 325 mg / oxyCODONE hydrochloride 5 mg oral tablet (14 sources) Opioid Agonist Start: 11-19-2021 End: 02-11-2022 Oxycodone-Acetaminophen 5-32 5 mg tablet Discontinued 1 {tbl} PO EVERY 6 HOURS NEEDED as needed for pain November 19, 2021 February 11, 2022 11:21am Acute left-sided thoracic back pain Pain in thoracic spine Start: 11-19-2021 End: 02-11-2022 take 1 tablet by mouth every six hours as needed Oxycodone-Acetaminophen Discontinued 1 TABLET PO EVERY 6 HOURS NEEDED 07 09November 19, 2021 February 11, 2022 11:21am amoxicillin 875 mg / clavulanate 125 mg oral tablet (15 sources) Penicillin-class Antibacterial Start: 01-05-2017 End: 11-21-2017 Amoxicillin-Pot Clavulanate 1 EACH tablet Discontinued 1 NMA PO TWICE A DAY January 05, 2017 12:00am November 21, 2017 1:40pm Start: 01-05-2017 End: 11-21-2017 Amoxicillin-Pot Clavulanate Discontinued 1 EACH PO TWICE A DAY January 05, 2017 12:00am November 21, 2017 1:40pm atenolol 25 mg oral tablet (20 sources) beta-Adrenergic Loida Start: 03-27-2022 End: 10-02-2022 take 1 tablet by mouth twice daily Atenolol 25 mg tablet Discontinued 25 mg PO TWICE A DAY March 27, 2022 11:25am October 02, 2022 3:28pm Start: 09-04-2020 End: 11-12-2022 take 1 tablet by mouth once daily Atenolol 25 mg tablet Discontinued 25 mg PO DAILY October 02, 2022 3:26pm October 02, 2022 3:45pm Comment on above: Take 1 tablet by christian th once daily. bifidobacterium infantis 4 mg oral capsule (16 sources) Start: 01-24-20 End: 11-23-19 take 1 capsule by mouth once daily Bifidobacterium Infantis (ALIGN) 4 mg cap Take 1 capsule by mouth once daily. 30 capsule 2 01/23/2021 11/22/2021 Discontinued Comment on above: Take 1 capsule by [facility] once daily. biotin 10 mg oral capsule (20 sources) End: 01-17-20 take 1 capsule by mouth once daily Biotin 10,000 mcg cap Take 1 capsule by mouth once daily. 01/16/2022 Discontinued Comment on above: Take 1 capsule by [facility] once daily. calcium carbonate 1250 mg oral tablet (15 sources) Start: 01-06-20 End: 02-01-20 take 1 tablet by mouth twice daily Calcium Carbonate 500 MG tablet Discontinued 500 mg PO TWICE A DAY January 05, 2017 12:00am January 31, 2022 3:36pm supplement carvedilol 3.125 mg oral tablet (20 sources) alpha-Adrenergic Loida, beta-Adrenergic Loida Start: 10-03-19 End: 12-01-19 take 1 tablet by mouth twice daily Carvedilol 3.125 mg tablet Discontinued 3.125 mg PO TWICE A DAY 180 3 January 12, 2024 12:25pm November 23, 2024 10:01am cetirizine hydrochloride 10 mg oral capsule (20 sources) Histamine-1 Receptor Antagonist Start: 01-06-20 End: 11-22-19 take 1 capsule by mouth once daily Cetirizine 10 MG capsule Discontinued 10 mg PO DAILY January 05, 2017 12:00am November 21, 2017 1:43pm End: 08-31-2024 cetirizine (ZYRTEC) 10 mg ta blet Take 10 mg by mouth as needed for cold/allergy symptoms. 08/31/2024 Discontinued Comment on above: Take 10 mg by mouth once daily. cholestyramine resin 4000 mg powder for oral suspension (9 sources) Bile Acid Sequestrant Start: 021 End: 022 take 1 dose by mouth three times daily at mealtime cholestyramine (QUESTRAN) 4 gram packet Take 1 Packet by mouth three times daily with meals. 90 Packet 2 11/09/2020 10/24/2021 Discontinued (Course of therapy completed) Comment on above: Take 1 Packet by christian three times daily with meals. colesevelam hydrochloride 3750 mg powder for oral suspension (8 sources) Bile Acid Sequestrant Start: 024 End: 05-13-2 025 take 1 dose by mouth once daily Colesevelam (WELCHOL) 3.75 gram pwpk Take 1 Packet by mouth once daily. 30 Packet 04/10/2024 08/31/2024 Discontinued cyclobenzaprine hydrochloride 5 mg oral tablet (20 sources) Muscle Relaxant Start: End: take 1 tablet by mouth every twelve hours as needed for muscle spasms and muscle spasms cyclobenzaprine (FLEXERIL) 5 mg tablet Indications: Muscle spasm Take 1 tablet by mouth twice daily as needed for up to 15 days. 30 tablet 0 02/14/2022 02/27/2022 Discontinued Start: 11-05-2021 End: 01-16-2022 cyclobenzaprine (FLEXERIL) 1 0 mg tablet Take 1/2 to 1 tablet tid prn 10 tablet 0 11/05/2021 01/16/2022 Discontinued Comment on above: Take 1/2 to 1 tablet tid prn Take 1 tablet by christian th twice daily as needed for up to 15 days. diazePAM 5 mg oral tablet (20 sources) Benzodiazepine Start: End: take 1 tablet by mouth twice daily as needed for muscle spasms Diazepam (Valium) 5 mg tablet Discontinued 5 mg PO TWICE A DAY as needed for muscle spasm 10 0 November 30, 2023 12:00am December 10, 2023 9:43am Start: 08-31-2023 End: 12-10-2023 take 1 tablet by mouth three times daily as needed for muscle spasms Diazepam (Valium) 2 mg tablet Discontinued 2 mg PO THREE TIMES A DAY as needed for muscle spasm 14 0 August 31, 2023 12:00am December 10, 2023 9:43am Start: 08-28-2023 End: 2023 diazePAM (VALIUM) 5 mg table t Indications: Pre-MRI Take 1 tab 30 minutes prior to MRI, may take second tab if needed. 2 tablet 0 09/05/2023 2023 Active Start: 08-23-2022 End: 08-29-2022 diazePAM (VALIUM) 5 mg table t Indications: Pre-MRI Take 1 tab 30 minutes prior to MRI, may take second tab if needed. Do not start before August 23, 2022. 2 tablet 0 08/23/2022 08/29/2022 Start: 11-19-2021 End: 02-11-2022 take 1 tablet by mouth every eight hours as needed for muscle spasms Diazepam 5 mg tablet Discontinued 5 mg PO EVERY 8 HOURS as needed for Muscle Spasm 15 0 November 19, 2021 12:00am February 11, 2022 11:20am Start: 08-23-2021 End: 08-31-2021 diazePAM (VALIUM) 5 mg table t Indications: Pre-MRI Take 1 tab 30 minutes prior to MRI, may take second tab if needed. 2 tablet 0 08/23/2021 08/31/2021 Active End: 01-16-2022 take 1 tablet by mouth every six hours as needed diazePAM (VALIUM) 10 mg tablet Take 10 mg by mouth every 6 hours as needed. 0 01/16/2022 Discontinued Comment on above: Take 1 tab 30 minute s prior to MRI, may take second tab if needed. Take 10 mg by mouth every 6 hours as needed. Take 1 tab 30 minute s prior to MRI, may take second tab if needed. Do not start before August 23, 2022. diphenhydrAMINE hydrochloride 50 mg oral capsule (20 sources) Histamine-1 Receptor Antagonist Start: 08-04-19 End: 09-01-19 take 1 capsule by mouth every hour diphenhydrAMINE (BENADRYL) 50 mg capsule Indications: Benign meningioma of brain (HCC) Take 1 capsule by mouth as directed for 1 dose. one (1) hour prior to exam. 1 capsule 08/03/2024 08/31/2024 Discontinued Start: 09-05-2023 End: 09-30-2023 diphenhydrAMINE (BENADRYL) 2 5 mg capsule Indications: Benign meningioma of brain (HCC) , Claustrophobia Take 2 caps 1 hour prior to MRI 2 capsule 0 09/05/2023 09/30/2023 Discontinued Start: 08-23-2022 End: 08-23-2022 take 1 capsule by mouth once, then take 1 capsule by mouth every hour diphenhydrAMINE (BENADRYL) 25 mg capsule Take 1 capsule by mouth once in interventional radiology for 1 dose. Take 1 capsule by mouth 1 hour prior to MRI. 1 capsule 0 08/23/2022 08/23/2022 Active Start: 01-17-2022 diphenhydrAMIN E (BENADRYL) 25 mg capsule Indications: Benign meningioma of brain (HCC) , Allergy, subsequent encounter Take 2 capsules by mouth as directed. Take 50 mg by mouth 1 hr prior to MRI on 01/29 1 capsule 0 01/17/2022 Active Start: 11-13-2021 End: 11-13-2021 take 1 capsule by mouth once, then take 1 capsule by mouth every hour diphenhydrAMINE (BENADRYL) 50 mg capsule Indications: Benign meningioma of brain (HCC) , Benign neoplasm of meninges (HCC) Take 1 capsule by mouth one time only for 1 dose. Take 1 hour prior to MRI d/t contrast allergy 1 capsule 0 11/13/2021 11/13/2021 Active Start: 08-30-2021 End: 08-30-2021 take 1 capsule by mouth once, then take 1 capsule by mouth every hour diphenhydrAMINE (BENADRYL) 50 mg capsule Indications: Benign meningioma of brain (HCC) Take 1 capsule by mouth one time only for 1 dose. Take 1 hour prior to MRI d/t contrast allergy 1 capsule 0 08/30/2021 08/30/2021 Active Comment on above: Take 1 capsule by mo ut one time only for 1 dose. Take 1 hour prior to MRI d/t contrast allergy Take 2 capsules by m out as directed. Take 50 mg by mouth 1 hr prior to MRI on 01/29 Take 1 capsule by mo ut once in interventional radiology for 1 dose. Take 1 capsule by mouth 1 hour prior to MRI. FOCUS FACTOR (7 sources) Start: 03-28-2023 End: 12-10-2023 FOCUS FACTOR Discontinued 2 {tbl} PO DAILY March 28, 2023 1:00am December 10, 2023 9:43am On Hold: PT STOPPED FOR PROCEDURE Start: 03-28-2023 take 2 tablets by mo uth once daily FOCUS FACTOR Active 2 TABLET PO DAILY March 28, 2023 1:00am Start: 03-28-2023 take 2 tablets by mo uth once daily FOCUS FACTOR Active 2 TABLET PO DAILY March 28, 2023 12:00am Hydrocortisone Acetate 25 mg suppository (3 sources) Start: 04-23-2023 End: 12-10-2023 Hydrocortisone Acetate 25 mg suppository Discontinued 25 mg RC TWICE A DAY 28 0 April 23, 2023 1:00am December 10, 2023 9:44am ibuprofen 600 mg oral tablet (20 sources) Nonsteroidal Anti-inflammatory Drug Start: 11-22-2021 End: 12-10-2023 take 1 tablet by mouth every eight hours as needed for pain Ibuprofen 600 mg tablet Discontinued 600 mg PO Q8H as needed for Pain January 31, 2022 12:00am December 10, 2023 9:43am Comment on above: Take 1 tablet by christian th every 8 hours as needed for pain. loratadine 10 mg oral tablet (8 sources) Start: 02-26-2023 End: 12-10-2023 take 1 tablet by mouth once daily as needed Loratadine (Claritin) 10 mg tablet Discontinued 10 mg PO DAILY as needed for allergy symptoms February 26, 2023 1:00am December 10, 2023 9:43am montelukast 10 mg oral tablet (15 sources) Leukotriene Receptor Antagonist Start: 01-05-2017 End: 11-21-2017 take 1 tablet by mouth once daily Montelukast 10 MG tablet Discontinued 10 mg PO DAILY January 05, 2017 12:00am November 21, 2017 1:43pm Multivitamin 1 EACH tablet (3 sources) Start: 01-05-2017 End: 01-31-2022 Multivitamin 1 EACH tablet Discontinued 1 NMA PO DAILY January 05, 2017 12:00am January 31, 2022 3:36pm supplement nystatin 100 unt/mg / triamcinolone acetonide 0.001 mg/mg topical ointment (4 sources) Polyene Antifungal, Corticosteroid Start: 2024 End: 10-06-2024 nystatin-triamcinol one (MYCOLOG) ointment Apply 1 application to affected area two times a day. Apply sparingly to perineum twice daily for irritation/infectio n. 30 g 2024 10/04/2024 Discontinued omeprazole 20 mg delayed release oral capsule (20 sources) Proton Pump Inhibitor Start: 10-02-2022 take 20 mg by mouth every other day Omeprazole Active 20 MG PO .QOD October 02, 2022 2:28pm Start: 03-29-2022 End: 12-10-2023 take 1 capsule by mouth once daily Omeprazole 20 mg capsule,delayed release(DR/EC) Discontinued 20 mg PO DAILY 30 30 3 April 08, 2023 2:02pm December 10, 2023 9:44am Start: 01-01-2018 End: 01-15-2018 take 1 capsule by mouth once daily Omeprazole 40 mg capsule,delayed release(DR/EC) Discontinued 40 mg PO DAILY 14 14 0 January 01, 2018 12:00am January 14, 2018 12:00am January 15, 2018 12:08am Start: 12-09-2017 End: 12-23-2017 take 1 capsule by mouth once daily Omeprazole 40 mg capsule,delayed release(DR/EC) Discontinued 40 mg PO daily 14 14 0 December 09, 2017 12:00am December 22, 2017 12:00am December 23, 2017 12:07am Comment on above: Take 20 mg by mouth once daily. oxycodone HCl/acetaminophen (PERCOCET ORAL) (14 sources) End: 01-16-2022 oxycodone HCl/acetaminophen (PERCOCET ORAL) Take by mouth. 0 01/16/2022 Discontinued oxycodone HCl/ac etaminophen (PERCOCET ORAL) Take by mouth. 0 Active Comment on above: Take by mouth. polyethylene glycol 3350 08884 mg powder for oral solution (20 sources) Osmotic Laxative Start: 12-19-2017 End: 01-31-2022 Polyethylene Glycol 3350 17 GM packet Discontinued 17 g PO NEEDED as needed for Constipation March 25, 2020 12:51pm January 31, 2022 3:36pm potassium chloride 20 meq extended release oral tablet (20 sources) Start: 01-01-2018 End: 01-08-2018 take 1 tablet by mouth twice daily Potassium Chloride 20 mEq tablet extended release Discontinued 20 meq PO TWICE A DAY 14 7 0 January 01, 2018 12:00am January 07, 2018 12:00am January 08, 2018 12:07am Start: 12-11-2017 End: 12-21-2017 Potassium Chloride (Klor-Con M20) 20 mEq tablet,ER particles/crystals Discontinued 40 meq PO daily 20 10 0 December 11, 2017 10:34am December 20, 2017 12:00am December 21, 2017 12:08am hypokalemia Start: 12-09-2017 End: 12-11-2017 Potassium Chloride (Klor-Con M20) 20 mEq tablet,ER particles/crystals Discontinued 20 meq PO daily 5 5 0 December 09, 2017 12:00am December 13, 2017 12:00am December 11, 2017 10:35am hypokalemia 125 ml sodium chloride 9 mg/ml prefilled syringe (20 sources) Start: 01-15-2022 sodium chlorid e 0.9 %, flush, (BD POSIFLUSH) syringe Inject 2-10 mL intravenously as needed. 13 mL 0 02/12/2022 Active Comment on above: Inject 2-10 mL intra venously as needed. wheat dextrin 3000 mg powder for oral solution (20 sources) Start: 10-02-2022 End: 12-10-2023 Wheat Dextrin (Benefiber Clear Sf (Dextrin)) 3 gram/3.5 gram powder in packet Discontinued 3 g PO DAILY October 02, 2022 3:28pm December 10, 2023 9:43am mix into at least 4 oz water or juice before administering Start: 01-31-2022 End: 10-02-2022 Wheat Dextrin (Benefiber Ishan ar Sf (Dextrin)) 3 gram/3.5 gram powder in packet Discontinued 1.5 g PO THREE TIMES A DAY January 31, 2022 12:00am October 02, 2022 3:28pm mix into at least 4 oz water or juice before administering End: 09-30-2023 wheat dextrin (BENEFIBER ISHAN AR SF, DEXTRIN, ORAL) Take 1 teaspoonful by mouth three times daily. 09/30/2023 Discontinued End: 09-30-2023 wheat dextrin (BENEFIBER ISHAN AR SF, DEXTRIN, ORAL) Take 1 teaspoonful by mouth three times daily. 0 09/30/2023 Discontinued wheat dextrin (B ENEFIBER CLEAR SF, DEXTRIN, ORAL) Take 1 teaspoonful by mouth three times daily. 0 Active wheat dextrin (B ENEFIBER CLEAR SF, DEXTRIN, ORAL) Take 0.5 teaspoonsful by mouth once daily. 0 Active Comment on above: Take 0.5 teaspoonsfu l by mouth once daily. Take 1 teaspoonful b y mouth three times daily. Problems Active Problems Problem Classification Problem Date Documented Da te Episodic/Chronic Abdominal hernia (20 sources) Incisional hernia; Translations: [Incisional hernia with obstruction, without gangrene] Episodic Abdominal pain (20 sources) Right lower quadrant pain; Translations: [Right lower quadrant pain] Onset: 4 Resolved: 4 2022 Episodic Acute cerebrovascular disease (2 sources) Cerebrovascular accident; Translations: [Cerebral infarction, unspecified] Chronic Allergic reactions (3 sources) Allergic contact dermatitis due to food in contact with the skin; Translations: [Allergic contact dermatitis due to food in contact with the skin] Onset: 5 10-19-2023 Episodic Anal and rectal conditions (20 sources) Anorectal pain; Translations: [Other specified diseases of anus and rectum] Onset: 1 Resolved: 4 2022 Episodic Appendicitis and other appendiceal conditions (15 sources) Perforation of cecum; Translations: [Acute appendicitis with perforation and localized peritonitis, without abscess] 2022 Episodic Cardiac dysrhythmias (20 sources) Irregular heart beat; Translations: [Cardiac arrhythmia, unspecified] Onset: 5 Chronic Cardiac dysrhythmias (20 sources) Palpitations; Translations: [Palpitations] Onset: 2 Resolved: 4 09-04-2020 Episodic Conditions associated with dizziness or vertigo (7 sources) Vertigo; Translations: [Dizziness and giddiness] Onset: 4 02-27-2023 Episodic Coronary atherosclerosis and other heart disease (2 sources) Coronary atherosclerosis; Translations: [Atherosclerotic heart disease of [place] coronary artery without angina pectoris] Onset: 5 12-07-2024 Chronic Disorders of lipid metabolism (20 sources) Hyperlipidemia; Translations: [Hyperlipidemia, unspecified] Onset: 5 01-24-2015 Chronic E Codes: Fall (1 source) Fall; Translations: [Unspecified fall, initial encounter] 02-27-2024 Episodic E Codes: Natural/environment (1 source) Bitten or stung by nonvenomous insect and other nonvenomous arthropods, initial encounter; Translations: [Tick bite of neck, initial encounter] Onset: 5 Episodic Gastrointestinal hemorrhage (20 sources) Hematochezia; Translations: [Melena] Onset: 9 Resolved: 2 Episodic Genitourinary symptoms and ill-defined conditions (4 sources) Urinary system finding; Translations: [Unspecified symptoms and signs involving the genitourinary system] Onset: 5 09-28-2024 Episodic Heart valve disorders (20 sources) Aortic valve regurgitation; Translations: [Nonrheumatic aortic (valve) insufficiency] Onset: 5 Chronic Comment on above: Mild (1+) per ECHO 1 04/23/21 Hemorrhoids (20 sources) Hemorrhoids; Translations: [Unspecified hemorrhoids] Onset: 9 Resolved: 4 2022 Episodic Immunizations and screening for infectious disease (3 sources) Needs influenza immunization; Translations: [Encounter for immunization] Episodic Malaise and fatigue (20 sources) Tires quickly; Translations: [Other fatigue] Onset: 6 Resolved: 0 10-02-2022 Episodic Menopausal disorders (2 sources) Atrophic vaginitis; Translations: [Postmenopausal atrophic vaginitis] Onset: 5 2024 Chronic Occlusion or stenosis of precerebral arteries (20 sources) Carotid artery stenosis; Translations: [Occlusion and stenosis of unspecified carotid artery] Onset: 0 05-14-2019 Chronic Osteoarthritis (20 sources) Osteoarthritis of left hip joint; Translations: [Unilateral primary osteoarthritis, left hip] Onset: 4 02-28-2024 Chronic Osteoporosis (20 sources) Senile osteoporosis; Translations: [Age-related osteoporosis without current pathological fracture] Onset: 4 12-16-2023 Chronic Other and unspecified benign neoplasm (20 sources) Intracranial meningioma; Translations: [Benign neoplasm of cerebral meninges] Onset: 8 10-28-2017 Chronic Other and unspecified benign neoplasm (20 sources) Benign neoplasm of meninges; Translations: [Benign neoplasm of meninges, unspecified] Onset: 2 Chronic Other and unspecified benign neoplasm (9 sources) Benign neoplasm of cerebral meninges; Translations: [Benign neoplasm of cerebral meninges] Onset: 3 Chronic Other and unspecified benign neoplasm (20 sources) Benign neoplasm of colon; Translations: [Benign neoplasm of colon, unspecified] Onset: 9 Resolved: 2 02-28-2010 Episodic Other and unspecified benign neoplasm (15 sources) History of polyp of colon; Translations: [Personal history of colonic polyps] 2022 Episodic Other bone disease and musculoskeletal deformities (20 sources) Osteopenia; Translations: [Other specified disorders of bone density and structure, unspecified site] Onset: 4 10-27-2013 Episodic Other connective tissue disease (15 sources) History of spinal fusion; Translations: [Arthrodesis status] 2022 Episodic Other connective tissue disease (3 sources) Pain of left heel; Translations: [Pain in left foot] Episodic Other connective tissue disease (1 source) Calcaneal spur of left foot; Translations: [Calcaneal spur, left foot] Episodic Other connective tissue disease (20 sources) Left achilles tendonitis; Translations: [Achilles tendinitis, left leg] Onset: 2 Resolved: 2 Episodic Other connective tissue disease (4 sources) Spasm; Translations: [Other muscle spasm] Episodic Other connective tissue disease (8 sources) Achilles tendinitis; Translations: [Achilles tendinitis, left leg] 2022 Episodic Other female genital disorders (1 source) Pruritus of vagina; Translations: [Other specified noninflammatory disorders of vagina] 10-04-2024 Episodic Other female genital disorders (1 source) Vaginal irritation; Translations: [Other specified noninflammatory disorders of vagina] 10-04-2024 Episodic Other female genital disorders (2 sources) Other specified noninflammatory disorders of vagina; Translations: [Vaginal itching] Onset: 5 Episodic Other gastrointestinal disorders (20 sources) Irritable bowel syndrome; Translations: [Irritable bowel syndrome without diarrhea] Onset: 3 01-26-2013 Chronic Other gastrointestinal disorders (1 source) Irritable bowel syndrome with diarrhea; Translations: [Irritable bowel syndrome with diarrhea] 12-16-2023 Chronic Other gastrointestinal disorders (20 sources) Incontinence of feces; Translations: [Full incontinence of feces] Onset: 9 Resolved: 3 03-09-2021 Episodic Other gastrointestinal disorders (4 sources) Alteration in bowel elimination; Translations: [Change in bowel habit] Episodic Other gastrointestinal disorders (20 sources) Diarrhea; Translations: [Diarrhea, unspecified] Resolved: 4 2022 Episodic Other gastrointestinal disorders (15 sources) Esophageal dysphagia; Translations: [Other dysphagia] 2022 Episodic Other gastrointestinal disorders (16 sources) Constipation; Translations: [Constipation, unspecified] 2022 Episodic Other gastrointestinal disorders (11 sources) Altered bowel function; Translations: [Change in bowel habit] 10-28-2022 Episodic Other gastrointestinal disorders (20 sources) Occult blood in stools; Translations: [Other fecal abnormalities] Episodic Other gastrointestinal disorders (8 sources) Rectum finding; Translations: [Other specified symptoms and signs involving the digestive system and abdomen] 10-02-2022 Episodic Other gastrointestinal disorders (1 source) Change in bowel habit; Translations: [Other symptoms involving digestive system] 08-25-2023 Episodic Other gastrointestinal disorders (1 source) Other specified symptoms and signs involving the digestive system and abdomen; Translations: [Other symptoms involving digestive system] 08-25-2023 Episodic Other gastrointestinal disorders (1 source) Urgent desire for stool; Translations: [Fecal urgency] 01-28-2024 Episodic Other gastrointestinal disorders (3 sources) Diarrhea, unspecified; Translations: [Nausea vomiting and diarrhea] Onset: 4 Episodic Other gastrointestinal disorders (1 source) Full incontinence of feces; Translations: [Incontinence of feces, unspecified fecal incontinence type] Onset: 5 Episodic Other inflammatory condition of skin (1 source) Pruritus of vulva; Translations: [Pruritus vulvae] 2024 Episodic Other inflammatory condition of skin (1 source) Lichen simplex chronicus; Translations: [Lichen simplex chronicus] 10-04-2024 Episodic Other inflammatory condition of skin (1 source) Lichen simplex chronicus; Translations: [Lichen simplex chronicus] Onset: 5 Episodic Other injuries and conditions due to external causes (3 sources) Allergic condition; Translations: [Allergy, unspecified, subsequent encounter] Episodic Other nervous system disorders (11 sources) Carpal tunnel syndrome; Translations: [Carpal tunnel syndrome, unspecified upper limb] 2022 Chronic Other nervous system disorders (3 sources) Carpal tunnel syndrome, unspecified upper limb; Translations: [Carpal tunnel syndrome] Chronic Other nervous system disorders (20 sources) Carpal tunnel syndrome of right wrist; Translations: [Carpal tunnel syndrome, right upper limb] Onset: 4 03-29-2024 Chronic Other nervous system disorders (1 source) Carpal tunnel syndrome, right upper limb; Translations: [Carpal tunnel syndrome on right] Onset: 4 Chronic Other nervous system disorders (1 source) Abnormal gait; Translations: [Unsteadiness on feet] 12-16-2023 Episodic Other nervous system disorders (1 source) Unsteady when walking; Translations: [Unsteadiness on feet] 09-28-2024 Episodic Other nervous system disorders (1 source) Unsteadiness on feet; Translations: [Unsteady gait when walking] Onset: Episodic Other non-traumatic joint disorders (2 sources) Pain in right knee; Translations: [Pain in joint, lower leg] 10-06-2023 Episodic Other non-traumatic joint disorders (1 source) Sesamoiditis; Translations: [Other specified joint disorders, right ankle and foot] 08-03-2024 Episodic Other skin disorders (2 sources) Lichen sclerosus et atrophicus; Translations: [Circumscribed scleroderma] Onset: 5 12-17-2024 Chronic Other upper respiratory disease (20 sources) Allergic rhinitis; Translations: [Allergic rhinitis, unspecified] Onset: 9 12-31-2016 Chronic Other upper respiratory disease (1 source) Congestion of nasal sinus; Translations: [Nasal congestion] 12-06-2022 Episodic Other upper respiratory infections (1 source) Acute upper respiratory infection; Translations: [Acute upper respiratory infection, unspecified] 02-27-2023 Episodic Peripheral and visceral atherosclerosis (3 sources) Arteriosclerotic vascular disease; Translations: [Unspecified atherosclerosis] Onset: 5 12-01-2024 Chronic Residual codes; unclassified (15 sources) History of colectomy; Translations: [Acquired absence of other specified parts of digestive tract] 2022 Episodic Comment on above: L Side 2009R side 20 18 Residual codes; unclassified (2 sources) Postmenopausal state; Translations: [Asymptomatic menopausal state] 10-06-2023 Episodic Residual codes; unclassified (3 sources) Pain; Translations: [Pain, unspecified] 02-27-2024 Episodic Secondary malignancies (2 sources) Secondary malignant neoplasm of brain; Translations: [Secondary malignant neoplasm of brain] Chronic Spondylosis; intervertebral disc disorders; other back problems (20 sources) Acute thoracic back pain; Translations: [Pain in thoracic spine] Onset: 2 Resolved: 2 Episodic Sprains and strains (3 sources) Strain of thoracic region; Translations: [Strain of muscle and tendon of unspecified wall of thorax, initial encounter] 12-08-2023 Episodic Superficial injury; contusion (9 sources) Tick bite; Translations: [Insect bite of unspecified part of neck, initial encounter] Onset: 5 10-04-2024 Episodic Unclassified (1 source) New Patient Onset: 4 Past or Other Problems Problem Classification Problem Date Documented Date Episodic/Chronic Anxiety disorders (20 sources) Claustrophobia; Translations: [Claustrophobia] Onset: 01-15-2007 Resolved: 01-13-2012 Chronic Diverticulosis and diverticulitis (20 sources) Diverticulosis of colon; Translations: [Diverticulosis of large intestine without perforation or abscess without bleeding] Onset: 01-06-2009 Resolved: 12-31-2016 04-16-2021 Chronic Intestinal obstruction without hernia (20 sources) Partial obstruction of small bowel; Translations: [Partial intestinal obstruction, unspecified as to cause] Onset: 04-06-2024 Resolved: 04-10-2024 04-10-2024 Episodic Nausea and vomiting (20 sources) Nausea and vomiting; Translations: [Nausea with vomiting, unspecified] Onset: 04-06-2024 Resolved: 04-10-2024 04-10-2024 Episodic Nonspecific chest pain (20 sources) Chest pain; Translations: [Chest pain, unspecified] Onset: 12-03-2005 Resolved: 12-07-2009 12-07-2009 Episodic Other circulatory disease (20 sources) Disorder of carotid artery; Translations: [Disorder of arteries and arterioles, unspecified] Onset: 01-03-2016 Resolved: 05-14-2019 05-14-2019 Chronic Other connective tissue disease (20 sources) Enthesopathy of hip region; Translations: [Other specified enthesopathies of unspecified lower limb, excluding foot] Onset: 02-04-2011 Resolved: 01-13-2012 01-13-2012 Episodic Other connective tissue disease (20 sources) Muscle weakness; Translations: [Muscle weakness (generalized)] Onset: 11-25-2018 Resolved: 05-14-2019 05-14-2019 Episodic Other connective tissue disease (20 sources) Other symptoms and signs involving the musculoskeletal system; Translations: [Other musculoskeletal symptoms referable to limbs] Onset: 03-01-2024 Resolved: 09-28-2024 02-28-2024 Episodic Other inflammatory condition of skin (1 source) Pruritus vulvae; Translations: [Pruritus vulvae] Onset: 2024 Episodic Other screening for suspected conditions (not mental disorders or infectious disease) (11 sources) Patient encounter status; Translations: [Encounter for screening mammogram for malignant neoplasm of breast] Onset: 03-26-2024 Episodic Prolapse of female genital organs (20 sources) Disorder of rectum; Translations: [Rectocele] Onset: 03-02-2013 Resolved: 10-04-2013 10-04-2013 Chronic Residual codes; unclassified (20 sources) Family history of breast cancer; Translations: [Family history of malignant neoplasm of breast] Onset: 10-16-2005 Resolved: 02-27-2022 10-16-2005 Episodic Residual codes; unclassified (15 sources) Past history of procedure; Translations: [Other specified postprocedural states] Onset: 04-21-2017 2022 Episodic Residual codes; unclassified (20 sources) Memory impairment; Translations: [Other amnesia] Onset: 02-28-2022 Episodic Residual codes; unclassified (1 source) Other amnesia; Translations: [Memory disturbance] Onset: 02-28-2022 Episodic Residual codes; unclassified (1 source) Pain, unspecified; Translations: [Pain] Onset: 02-27-2024 Episodic Spondylosis; intervertebral disc disorders; other back problems (20 sources) Cervical spondylosis without myelopathy; Translations: [Spondylosis without myelopathy or radiculopathy, cervical region] Onset: 02-26-2005 Resolved: 10-04-2013 10-04-2013 Chronic Results Test Name Value Interpretation Reference Range Facility [facility] 12-17-2024 CNOV Office Visit (OBGYWM ) BAILEYFANNIE ([id number]) 1945 F Date Time Provider Department 12/17/24 11:20 AM ROSA ISELA KNAPP OBGYWM During your visit today, we recorded the following information about you: Blood pressure Weight 130/78 63 kg Rosa Isela Knapp MD 12/17/2024 12:03 PM Signed Regional Climate Change Analyst offered: Patient declines. 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 Patient/authorized product representative agreed to proceed CHIEF COMPLAINT: The patient is an 79-year-old female with bowel incontinence, presenting for evaluation of recurrent vulvar pruritus. HPI: The patient is an 79-year-old female with a history of vulvar dermatitis presenting with recurrent vulvar pruritus and new onset dysuria. Vulvar Pruritus - Initial onset in September, previously treated with clobetasol and hygiene modifications, which provided relief. - Recurrence of pruritus began approximately 10 days ago without any changes in hygiene habits. - Resumed clobetasol use has used twice in the past week, noting no worsening of symptoms. - No associated vaginal discharge. Dysuria - Onset of burning with urination began 2 days ago. - No hematuria or frothiness observed in urine. Urinary Incontinence - Reports urinary incontinence and nocturia, voiding approximately 3 times per night; these symptoms are chronic and unchanged. Bowel Incontinence - Reports bowel incontinence. - Scheduled to see a concrete rod buster in a couple of weeks for evaluation. 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 History Comments: Sexual Activity: Not Asked; No partner data on record Contraception: No contraception data on record 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 CERVICAL SPONDYLOSIS 02/26/2005 Diarrhea Diverticulosis of colon 01/06/2009 Esophageal reflux Hemorrhage of rectum and anus 12/02/2017 HEMORRHOIDS NOS 11/30/2008 HYPERLIPIDEMIA NEC/NOS 03/18/2005 IBS (irritable bowel syndrome) 01/26/2013 Incontinence of feces 11/30/2008 Incontinence of feces 03/09/2021 Left leg weakness 03/01/2024 Nausea vomiting and diarrhea 04/06/2024 Osteopenia Palpitations 01/13/2012 Perforation of large intestine (HCC) 12/03/2017 Primary osteoarthritis of left hip 03/01/2024 Spondylosis, 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 TIA (transient ischemic attack) 06/17/2017 [place], [place] Tick bite of neck 10/04/2024 PAST SURGICAL HISTORY Procedure Laterality Date CHOLECYSTECTOMY HX 03/2018 COLONOSCOPY FLX DX W/COLLJ SPEC WHEN PFRMD 10/20/2003 Colonoscopy COLONOSCOPY FLX DX W/COLLJ SPEC WHEN PFRMD 01/06/2009 Extensive diverticulosis/hemorrhoids COLONOSCOPY FLX DX W/COLLJ SPEC WHEN PFRMD 07/24/2012 [place] COLSC FLEXIBLE W/CONTROL BLEEDING ANY METHOD 12/02/2017 laser of cecal AVM DRAIN ABDOMINAL ABSCESS, PERCUTANEOUS 12/15/2017 perianastomotic abscess EGD 12/02/2017 ESOPHAGOGASTRODUODENOSCOPY TRANSORAL DIAGNOSTIC 07/03/2012 [place] GAMMA KNIFE 1FX TX DELIVERY 02/12/2022 x 3 on 01/15/22; 01/29/22; 02/12/22 HEMORRHOIDECTOMY INT AND XTRNL 2/> COLUMN/HI 10/26/2009 LAMINECTOMY W/RMVL ABNORMAL FACETS LUMBAR 07/08/2011 [place], [place] LAPAROSCOPY COLECTOMY PARTIAL W/ANASTOMOSIS 02/02/2009 LAPAROSCOPY COLECTOMY PARTIAL W/ANASTOMOSIS Right 12/03/2017 LAPS MOBLJ SPLENIC FLXR PFRMD W/PRTL COLECTOMY 02/02/2009 PAST SURGICAL HISTORY OF 1964 ovarian cyst removed PAST SURGICAL HISTORY OF 2001 BREAST BIOPSY--BENIGN PAST SURGICAL HISTORY OF 03/28/2018 Gallbladder removed SIGMOIDOSCOPY FLX CONTROL BLEEDING 03/22/2009 Granulation tissue at anastomosis SIGMOIDOSCOPY FLX W/BIOPSY SINGLE/MULTIPLE 02/28/2011 TOTAL ABDOMINAL HYSTERECT W/WO RMVL TUBE OVARY 02/1990 Hysterectomy, TERI, BSO FAMILY HISTORY Problem Relation Age of Onset Breast Cancer Mother dec. age 88 Blood Disease Father PE, post MVA, dec. 53yo Breast Cancer Sister Myositis Sister Inclusion Body Myositis None Sister Alzheimer's Disease Sister other (multiple myeloma) Brother SOCIAL HISTORY[1] Current Outpatient Medications Medication Sig alendronate (FOSAMAX) 70 mg tablet Take 1 tablet by mouth one time a week. Take with a full glass of water, on an empty stomach; do NOT lie down for 30minutes. lactobacill (more content not included)... Normal [facility] UA DIP, URINE (POC)on 2024 BILIRUBIN UA (POCT) Negative Negative [facility] CLARITY UA (POCT) Clear [facility] COLOR UA (POCT) Yellow [facility] GLUCOSE UA (POCT) Negative Negative mg/dL [facility] Hemoglobin Ql (U) Negative Negative [facility] KETONE UA (POCT) Negative Negative mg/dL [facility] LEUKOCYTES UA (POCT) Negative Negative [facility] NITRITE UA (POCT) Negative Negative [facility] PH UA (POCT) 6.0 4.5 - 8.0 [facility] Protein Ql (U) Negative Negative mg/dL [facility] SPECIFIC GRAVITY UA (POCT) 1.025 1.005 - 1.030 [facility] UROBILINOGEN UA (POCT) 0.2 Victorina l E.U./dL [facility] Location:[facility], [address], [place], [address] [facility] POINT OF CARE [facility] Duplex ultrasound of carotid artery reportOrdered By: Vincent Álvarez on 12-15-2024 Study report [facility] [address] [place] [address] Carotid Duplex Ultrasound 12/14/24 0813 MR#: [id number] Acct: [id number] Name: FANNIE AVALOS Rep #:[id number] : 1945 79 From: Vincent Fox Attending Dr: SENDY Dinero atus: REG CLI Ordering Dr: Berhane Shukla Date: 12/14/24 Location: [facility] Sex: F C Admitted: Reason For Study Reason For Study: DIZZINESS Rt. Velocities/BP Lt. Velocities/BP Prox CCA 114.3/17.5 cm/sec. Prox CCA 101.4/16.7 cm/sec. Mid CCA 83/14.2 cm/sec. Mid CCA 81.8/17.6 cm/sec. Dist CCA 58.9/13.8 cm/sec. Dist CCA 61/17.6 cm/sec. Prox ICA 170/30.1 cm/sec. Prox ICA 135.2/32 cm/sec. Mid ICA 103.4/30.3 cm/sec. Mid ICA 107.8/27.5 cm/sec. Dist ICA 71.1/24.8 cm/sec. Dist ICA 89.5/25.6 cm/sec. Rt. ICA/CCA = 2.05. Lt. ICA/CCA = 1.65. Prox ECA 141.8/5.7 cm/sec. Prox ECA 146.7/9.3 cm/sec. Rt. Vert. 63.3/7.3 cm/sec. Lt. Vert. 50.6/15.7 cm/sec. Right Extracranial There is homogeneous, smooth atherosclerotic plaque noted in the right common carotid artery. There is heterogeneous, irregular atherosclerotic plaque noted in the right internal carotid artery. There is intimal thickening but no significant atherosclerotic plaque noted in the right external carotid artery. Antegrade flow is noted in the right vertebral artery. Left Extracranial There is homogeneous, smooth atherosclerotic plaque noted in the left common carotid artery. There is heterogeneous, irregular atherosclerotic plaque noted in the left internal carotid artery. There is heterogeneous, irregular atherosclerotic plaque noted in the left external carotid artery. Antegrade flowis noted in the left vertebral artery. Procedure Carotid Duplex 44043. This is a Carotid Duplex examination using B-mode, color flow and specral Doppler. Exam performed in department. VL/Carotid Duplex Ultrasound Interpretation Summary Moderate (50-69%) stenosis right extracranial internal carotid. Moderate (50-69%) stenosis left extracranial internal carotid. Patent and antegrade vertebrals bilaterally. Ordering Physician: Berhane Shukla Referring Physician: Gavin Tran M.D. Performed By: Kayden Kruger RVT and Student 12/15/241847 Date _ Vincent Álvarez MD CC: Dr. Gavin Tran MD; SENDY Dinero ~ Date Dictated: 12/14/24812 Date Transcribed: 12/15/241847 Addiction Medicine Physician: Signed [facility] Work Phone: Carotid Duplex Ultrasoundon 12-14-2024 Carotid Duplex Ultrasound [facility] [address] [place] [address]. [place] [address] Carotid Duplex Ultrasound 12/14/24812 MR#: [id number] Acct: [id number] Name: FANNIE AVALOS Rep #: [id number] : 1945 79 From: Vincent Álvarez MD Attending Dr: SENDY Dinero Status: REG CL I Ordering Dr: Berhane Shukla Date: 12/14/24 Location: [facility] Sex: F C Admitted: Reason For Study Reason For Study: DIZZINESS Rt. Velocities/BP Lt. Velocities/BP Prox CCA 114.3/17.5 cm/sec. Prox CCA 101.4/16.7 cm/sec. Mid CCA 83/14.2 cm/sec. Mid CCA 81.8/17.6 cm/sec. Dist CCA 58.9/13.8 cm/sec. Dist CCA 61/17.6 cm/sec. Prox ICA 170/30.1 cm/sec. Prox ICA 135.2/32 cm/sec. Mid ICA 103.4/30.3 cm/sec. Mid ICA 107.8/27.5 cm/sec. Dist ICA 71.1/24.8 cm/sec. Dist ICA 89.5/25.6 cm/sec. Rt. ICA/CCA = 2.05. Lt. ICA/CCA = 1.65. Prox ECA 141.8/5.7 cm/sec. Prox ECA 146.7/9.3 cm/sec. Rt. Vert. 63.3/7.3 cm/sec. Lt. Vert. 50.6/15.7 cm/sec. Right Extracranial There is homogeneous, smooth atherosclerotic plaque noted in the right common carotid artery. There is heterogeneous, irregular atherosclerotic plaque noted in the right internal carotid artery. There is intimal thickening but no significant atherosclerotic plaque noted in the right external carotid artery. Antegrade flow is noted in the right vertebral artery. Left Extracranial There is homogeneous, smooth atherosclerotic plaque noted in the left common carotid artery. There is heterogeneous, irregular atherosclerotic plaque noted in the left internal carotid artery. There is heterogeneous, irregular atherosclerotic plaque noted in the left external carotid artery. Antegrade flow is noted in the left vertebral artery. Procedure Carotid Duplex 50277. This is a Carotid Duplex examination using B-mode, color flow and specral Doppler. Exam performed in department. VL/Carotid Duplex Ultrasound Interpretation Summary Moderate (50-69%) stenosis right extracranial internal carotid. Moderate (50-69%) stenosis left extracranial internal carotid. Patent and antegrade vertebrals bilaterally. Ordering Physician: Berhane Shkula Referring Physician: Gavin Tran M.D. Performed By: Kayden Kruger RVT and Student 12/15/24 882 Date Vincent Álvarez MD CC: Dr. Gavin Tran MD; SENDY Dinero Date Dictated: 12/14/24812 Date Transcribed: 12/15/241847 Addiction Medicine Physician: Signed Normal [facility] Echo Completeon 12-14-2024 Echo Complete [facility] [address] [place] [address] Echo Complete 12/14/2459 MR#: [id number] Acct: [id number] Name: FANNIE AVALOS Rep #: [id number] : 1945 79 From: Eulalio Pacheco MD Attending Dr: SENDY Dinero Status: REG CL I Ordering Dr: Berhane Shukla Date: 12/14/24 Location: [facility] Sex: F C Admitted: Reason For Study Reason For Study: Murmur Procedure This was a 2D Doppler, Color Flow transthoracic echocardiogram. Exam performed in department. Left Ventricle Normal LV size. Left ventricular systolic function is normal. The left ventricular ejection fraction is 65 %. No regional wall motion abnormalities noted. Right Ventricle Normal RV size. Normal systolic function. Atria Normal left atrium. Normal right atrium. Mitral Valve Normal mitral valve. There is mild mitral annular calcification. Tricuspid Valve Normal tricuspid valve. Mild (1+) tricuspid valve insufficiency. Pulmonary artery systolic pressure is 25 mmHg. Aortic Valve Trisinus/trileaflet aortic valve. Pulmonic Valve Normal pulmonic valve. Great Vessels Normal aortic root. The pulmonary artery is normal size. Inferior vena cava collapse with respiration. Pericardium/Pleural No pericardial effusion. MMode/2D Measurements Calculations LVIDd: 4.2 cm IVSd: 1.1 cm CO(Teich): 3.3 l/min LVIDs: 2.6 cm LVPWd: 0.90 cm RVDd: 2.7 cm FS: 38.1 % Ao root diam: 3.3 cm LAV(MOD-bp): 31.8 ml LVAd ap4: 20.8 cm2 LAV(MOD-bp) Indexed: 19.4 ml/m2 LVLd ap4: 6.3 cm LAV(MOD-sp2): 25.2 ml EDV(MOD-sp4): 58.5 ml LAV(MOD-sp4): 33.1 ml EDV(sp4-el): 57.9 ml LVAs ap4: 11.0 cm2 LVLs ap4: 5.3 cm ESV(MOD-sp4): 20.4 ml ESV(sp4-el): 19.2 ml EF(MOD-sp4): 65.2 % EF(sp4-el): 66.8 % CO(MOD-sp4): 2.3 l/min SV(sp4-el): 38.7 ml LA A4 area: 14.6 cm2 SV(MOD-sp4): 38.1 ml SI(MOD-sp4): 23.2 ml/m2 LA dimension(2D): 3.0 cm RA A4 area: 12.9 cm2 TAPSE: 1.5 cm Time Measurements MV dec time: 0.22 sec Doppler Measurements Calculations MV E max mae: 89.8 cm/sec Lat Peak E' Mae: 7.7 cm/sec Med Peak E' Mae: 7.0 cm/sec MV A max mae: 85.5 cm/sec E/E' lat: 11.7 E/E' med: 12.8 MV E/A: 1.1 MV V2 max: 102.4 cm/sec MV P1/2t max mae: 103.4 cm/sec Ao V2 max: 122.8 cm/sec MV max P.2 mmHg MV P1/2t: 76.5 msec Ao max P.0 mmHg MV V2 mean: 55.3 cm/sec Ao V2 mean: 82.4 cm/sec MV mean P.5 mmHg MV dec slope: 395.6 cm/sec2 Ao mean P.2 mmHg MV V2 VTI: 33.8 cm MVA(P1/2t): 2.9 cm2 Ao V2 VTI: 30.7 cm AV (velocity ratio): 0.72 LV V1 max: 105.6 cm/sec PA V2 max: 76.7 cm/sec TR max mae: 238.1 cm/sec LV V1 max P.5 mmHg TR max P.9 mmHg LV V1 mean P.1 mmHg LV V1 mean: 68.0 cm/sec LV V1 VTI: 22.2 cm ECHO/Echo Complete Interpretation Summary Normal LV size. Left ventricular systolic function is normal. The left ventricular ejection fraction is 65 %. Structurally normal valves. Ordering Physician: Berhane Shukla Referring Physician: Berhane Shukla Performed By: Murray Mina RCS 12/14/24 1243 Date Eulalio Pacheco MD CC: Dr. Gavin Tran MD; SENDY Dinero Date Dictated: 12/14/24 0859 Date Transcribed: 12/14/24 124 Addiction Medicine Physician: Signed Normal [facility] Echocardiogram study reportO rdered By: Eulalio Pacheco on 12-14-2024 Study report [facility] [address] [place] [address] Echo Complete 12/14/24 0859 MR#: [id number] Acct: [id number] Name: FANNIE AVALOS Rep #:[id number] : 1945 79 From: Eulalio Fox Attending Dr: SENDY Dinero atus: REG CLI Ordering Dr: Berhane Shukla Date: 12/14/24 Location: [facility] Sex: F C Admitted: Reason For Study Reason For Study: Murmur Procedure This was a 2D Doppler, Color Flow transthoracic echocardiogram. Exam performed in department. Left Ventricle Normal LV size. Left ventricular systolic function is normal. The left ventricular ejection fraction is 65 %. No regional wall motion abnormalities noted. Right Ventricle Normal RV size. Normal systolic function. Atria Normal left atrium. Normal right atrium. Mitral Valve Normal mitral valve. There is mild mitral annular calcification. Tricuspid Valve Normal tricuspid valve. Mild (1+) tricuspid valve insufficiency. Pulmonary artery systolic pressure is 25 mmHg. Aortic Valve Trisinus/trileaflet aortic valve. Pulmonic Valve Normal pulmonic valve. Great Vessels Normal aortic root. The pulmonary artery is normal size. Inferior vena cava collapse with respiration. Pericardium/Pleural No pericardial effusion. MMode/2D Measurements & Calculations LVIDd: 4.2 cm IVSd: 1.1 cm CO(Teich): 3.3 l/min LVIDs: 2.6 cm LVPWd: 0.90 cm RVDd: 2.7 cm FS: 38.1 % Ao root diam: 3.3 cm LAV(MOD-bp): 31.8 ml LVAd ap4: 20.8 cm2 LAV(MOD-bp) Indexed: 19.4 ml/m2 LVLd ap4: 6.3 cm LAV(MOD-sp2): 25.2 ml EDV(MOD-sp4): 58.5 ml LAV(MOD-sp4): 33.1 ml EDV(sp4-el): 57.9 ml LVAs ap4: 11.0 cm2 LVLs ap4: 5.3 cm ESV(MOD-sp4): 20.4 ml ESV(sp4-el): 19.2 ml EF(MOD-sp4): 65.2 % EF(sp4-el): 66.8 % CO(MOD-sp4): 2.3 l/min SV(sp4-el): 38.7 ml LA A4 area: 14.6 cm2 SV(MOD-sp4): 38.1 ml SI(MOD-sp4): 23.2 ml/m2 LA dimension(2D): 3.0 cm RA A4 area: 12.9 cm2 TAPSE: 1.5 cm Time Measurements MV dec time: 0.22 sec Doppler Measurements & Calculations MV E max mae: 89.8 cm/sec Lat Peak E' Mae: 7.7 cm/sec Med Peak E' Mae: 7.0 cm/sec MV A max mae: 85.5 cm/sec E/E' lat: 11.7 E/E' med: 12.8 MV E/A: 1.1 MV V2 max: 102.4 cm/sec MV P1/2t max mae: 103.4 cm/sec Ao V2 max: 122.8 cm/sec MV max P.2 mmHg MV P1/2t: 76.5 msec Ao max P.0 mmHg MV V2 mean: 55.3 cm/sec Ao V2 mean: 82.4 cm/sec MV mean P.5 mmHg MV dec slope: 395.6 cm/sec2 Ao mean P.2 mmHg MV V2 VTI: 33.8 cm MVA(P1/2t): 2.9 cm2 Ao V2 VTI: 30.7 cm AV (velocity ratio): 0.72 LV V1 max: 105.6 cm/sec PA V2 max: 76.7 cm/sec TR max mae: 238.1 cm/sec LV V1 max P.5 mmHg TR max P.9 mmHg LV V1 mean P.1 mmHg LV V1 mean: 68.0 cm/sec LV V1 VTI: 22.2 cm ECHO/Echo Complete Interpretation Summary Normal LV size. Left ventricular systolic function is normal. The left ventricular ejection fraction is 65 %. Structurally normal valves. Ordering Physician: Berhane Shukla Referring Physician: Berhane Shukla Performed By: Murray Mina, SHAWNA 12/14/24 1243 Date _ Eulalio Pacheco MD CC: Dr. Gavin Tran MD; SENDY Dinero ~ Date Dictated: 12/14/2459 Date Transcribed: 12/14/24 1243 Addiction Medicine Physician: Signed [facility] Work Phone: Rena 11-30-2024 CNOV Office Visit (NEAGCL M) FANNIE AVALOS ([id number]) 1945 F Date Time Provider Department 11/30/24 11:00 AM BERNABE COX NEAGCLM During your visit today, we recorded the following information about you: Pulse Respiration Blood pressure Weight 69/minute 16/minute 116/75 62 kg Height 1.6 m Bernabe Cox MD 11/30/2024 11:10 AM Signed NEUROSURGERY FOLLOW UP OFFICE NOTE Dr. Bernabe Cox MD, FACS Date of visit: November 30, 2024 Patient Name: Ms.Marjorie Arielle Avalos Date of : 1945 Current Age: [age] year old Sex: female MRN/E# [id number] Last Office Visit: 08/31/2024 CHIEF COMPLAINT: Patient presents with: Established Patient Memory loss, unsteadiness. SUBJECTIVE: The patient presents as a follow-up without new imaging for evaluation. This is an 79-year-old female with a PMHx of intracranial meningioma diagnosed in September 2017 after experiencing episodes of visual changes. Given the symptoms MRI was obtained and demonstrated a left parasagittal meningioma for which no surgical intervention was indicated. She followed with Dr. Lindsey until 2021 imaging demonstrated an increase in size. She was referred for possible gamma knife treatment. She was seen for consult in August 2021 and reported intermittent episodes of right sided head pain but denied any significant headache. MRI was reviewed and compared to prior imaging. This showed a 6-7 mm increase from 2017 to 2021. Treatment options were discussed including open craniotomy with resection or gamma knife. Her case was discussed with the tumor board and radiation oncology who proposed that gamma knife could be provided in divided fractions which she agreed to. This was completed as noted below in 3 sessions. Since then she has been seen routinely for evaluation with imaging and has overall done well. She was last seen in the office in August 2024 and reported that she was overall doing well. She denied any new or concerning issues such as headache, visual changes, speech deficits, seizure activity, motor or sensory deficits. Neurologically she was intact on exam without focal deficit. MRI was reviewed and showed no change in the configuration or size of the parasagittal falx meningioma that was treated with gamma knife in 3 fractions. Recommendation was to follow-up in 1 year with repeat MRI. Today she states in the summer she noted her memory was declining and having hard times remembering names and familiar things. She notes she has been feeling unsteady but denies any falls. Reported a few headaches. Denies any other concerning symptoms. She presents for evaluation and plan of care. SYMPTOMS: Headaches, memory deficits and unsteadiness. PREVIOUS CONSERVATIVE TREATMENTS: None SURGICAL RISK: Smoker: Never Diabetic: No Anticoagulants / Antiplatelets: ASA 81 mg Occupation: N/A PREVIOUS NEUROSURGERY: SURGERY #1: Gamma Knife Stereotactic Radiosurgery for a meningioma on 01/15/[address] Cox. 1. Left parietal falx 1 of 3 SURGERY #2: Gamma Knife Stereotactic Radiosurgery for a meningioma on 01/29/[address] Cox. 1. Left parietal falx 2 of 3 SURGERY#3: Gamma Knife Stereotactic Radiosurgery for a meningioma on 02/12/[address] Cox. 1. 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 CERVICAL SPONDYLOSIS 02/26/2005 Diarrhea Diverticulosis of colon 01/06/2009 Esophageal reflux Hemorrhage of rectum and anus 12/02/2017 HEMORRHOIDS NOS 11/30/2008 HYPERLIPIDEMIA NEC/NOS 03/18/2005 IBS (irritable bowel syndrome) 01/26/2013 Incontinence of feces 11/30/2008 Incontinence of feces 03/09/2021 Left leg weakness 03/01/2024 Nausea vomiting and diarrhea 04/06/2024 Osteopenia Palpitations 01/13/2012 Perforation of large intestine (HCC) 12/03/2017 Primary osteoarthritis of left hip 03/01/2024 Spondylosis, 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 Normal [facility] CNOVon 11-28-2024 CNOV Office Visit (WOUCA) RHIANNA AVALOSJOHERLINDA Guzmán ([id number]) 1945 F Date Time Provider Department 11/28/24 9:45 AM LESLIE TRAN During your visit today, we recorded the following information about you: Temperature Pulse Respiration Blood pressure 97.8 degrees 73/minute 16/minute 126/72 Weight 61.7 kg Leslie Tran APRN.FINANCE SPECIALIST 11/28/2024 10:52 AM Signed [facility] Subjective Fannie Avalos is a 79 year old female. The patient is an 79-year-old female with fatigue, diarrhea, and dizziness. Fatigue: - Onset several days to a week ago. - Attributes fatigue to increased activity due to visiting friends from [place]. - Describes feeling extra tired and just tired and weary and just not feeling real good. - Denies fever. Diarrhea: - Two episodes of sudden, severe diarrhea in the past week, with no warning. - First episode occurred 7-[address] [facility]; second episode occurred today. - Denies hematochezia. - Reports a history of needing to have a bowel movement daily to avoid complications. - Uses milk of magnesia or prune juice if no bowel movement occurs by evening. - Has tried Miralax and probiotics in the past with inconsistent results. - Recent dietary intake included a small ice cream drumstick last night; previously took a pill for ice cream consumption but discontinued it two years ago without issues. - Seen by a GI doctor in [place] about a year ago. Dizziness: - Chronic dizziness; sales service route manager discontinued a medication (unknown name) a week ago due to this symptom. - Reports slight improvement in dizziness since discontinuing the medication. - Describes feeling unsteady when walking in the yard, needing to keep hands out to catch herself. - Denies feeling acutely dehydrated or at risk of syncope. Meningioma: - Followed by Dr. Adkins for meningioma; undergoes annual scans to monitor for changes. Constitutional: (+) fatigue, (+) malaise, Gastrointestinal: (+) diarrhea, (+) fecal incontinence, (+) abdominal discomfort, (+) nausea, (+) constipation, (-) hematochezia, (-) vomiting Genitourinary: (-) suprapubic pressure Musculoskeletal: (+) shoulder pain, (+) hip pain Neurological: (+) dizziness, (+) lightheadedness, (-) syncope Objective BP 126/72 Pulse 73 Temp 36.6 ?C (97.8 ?F) (Tympanic) Resp 16 Wt 61.7 kg (136 lb 0.4 oz) SpO2 98% BMI 24.10 kg/m? PAST MEDICAL HISTORY[1] PAST SURGICAL HISTORY Procedure Laterality Date CHOLECYSTECTOMY HX 03/2018 COLONOSCOPY FLX DX W/COLLJ SPEC WHEN PFRMD 10/20/2003 Colonoscopy COLONOSCOPY FLX DX W/COLLJ SPEC WHEN PFRMD 01/06/2009 Extensive diverticulosis/hemorrhoids COLONOSCOPY FLX DX W/COLLJ SPEC WHEN PFRMD 07/24/2012 [place] COLSC FLEXIBLE W/CONTROL BLEEDING ANY METHOD 12/02/2017 laser of cecal AVM DRAIN ABDOMINAL ABSCESS, PERCUTANEOUS 12/15/2017 perianastomotic abscess EGD 12/02/2017 ESOPHAGOGASTRODUODENOSCOPY TRANSORAL DIAGNOSTIC 07/03/2012 [place] GAMMA KNIFE 1FX TX DELIVERY 02/12/2022 x 3 on 01/15/22; 01/29/22; 02/12/22 HEMORRHOIDECTOMY INT AND XTRNL 2/> COLUMN/HI 10/26/2009 LAMINECTOMY W/RMVL ABNORMAL FACETS LUMBAR 07/08/2011 Cuco,CHIDI LAPAROSCOPY COLECTOMY PARTIAL W/ANASTOMOSIS 02/02/2009 LAPAROSCOPY COLECTOMY PARTIAL W/ANASTOMOSIS Right 12/03/2017 LAPS MOBLJ SPLENIC FLXR PFRMD W/PRTL COLECTOMY 02/02/2009 PAST SURGICAL HISTORY OF 1964 ovarian cyst removed PAST SURGICAL HISTORY OF 2001 BREAST BIOPSY--BENIGN PAST SURGICAL HISTORY OF 03/28/2018 Gallbladder removed SIGMOIDOSCOPY FLX CONTROL BLEEDING 03/22/2009 Granulation tissue at anastomosis SIGMOIDOSCOPY FLX W/BIOPSY SINGLE/MULTIPLE 02/28/2011 TOTAL ABDOMINAL HYSTERECT W/WO RMVL TUBE OVARY 02/1990 Hysterectomy, TERI, BSO ALLERGIES Bactrim [Sulfamethoxazole-Trimethopr im], Clindamycin Hcl, Flagyl [Metronidazole Hcl], Gadolinium-Containing Contrast Media, Trimethoprim, and Levofloxacin MEDICATIONS alendronate (FOSAMAX) 70 mg tablet Take 1 tablet by mouth one time a week. Take with a full glass of water, on an empty stomach; do NOT lie down for 30minutes. lactobacillus rhamnosus (CULTURELLE) 10 billion cell capsule Take 1 capsule by mouth once daily. atorvastatin (LIPITOR) 40 mg tablet TAKE 1 TABLET EVERY DAY AT BEDTIME FOR CHOLESTEROL meclizine (ANTIVERT) 12.5 mg tab Take 2 tablets by mouth three times a day as needed. naproxen (NAPROSYN) 500 mg tablet Take 1 tablet by mouth two times a day with meals. fluticasone (FLONASE) 50 mcg/actuation nasal spray Use 2 Sprays in each nostril once daily. Rinse mouth after use. Cholecalciferol, Vitamin D3, 25 mcg (1,000 unit) cap Take 1 capsule by mouth once daily. VITAMIN E 200 UNIT CAP Take 200 Units by mouth once daily. Perry-3 Fatty Acids (FISH OIL) ORAL Cap Take one(1) capsule daily. MULTIVITAMIN TAB Take one(1) tablet daily. CALCIUM + D 600 MG-200 UNIT (more content not included)... Normal [facility] Absolute lymphocyte countOrd ered By: Berhane Shukla on 11-23-2024 Lymphocytes Auto (Unsp spec) [#/Vol] 1.30 10*3/uL 0.83-4.51 [facility] Absolute neutrophil countOrd ered By: Berhane Shukla on 11-23-2024 Neutrophils (Bld) [#/Vol] 3.5 10*3/uL 2.0-7.7 [facility] Anion gap in Serum or Plasma Ordered By: Berhane Shukla on 11-23-2024 Anion gap [Moles/Vol] 11 mmol/L 5- [facility] Automated lymphocyte count a s percentage of total leukocytesOrdered By: Berhane Shukla on 11-23-2024 Lymphocytes/100 WBC Auto (Unsp spec) 23.5 % - [facility] BUN/creatinine ratioOrdered By: Berhanesofi Shukla on 11-23-2024 Urea nitrogen/Creatinine [Mass ratio] 25.8 mg/mg High 10- [facility] Basophil percentageOrdered B y: Berhane Shukla on 11-23-2024 Basophils/100 WBC (Bld) 0.4 % 0-1 [facility] Bilirubin, totalOrdered By: Berhanesofi Shukla on 11-23-2024 Bilirubin [Mass/Vol] 0.99 mg/dL 0.00-1.30 [facility] CBC W/Diff, Automatedon Absolute Lymph 1.30 X10 3/uL Normal 0.83-4.51 [facility] Comment on above: Performed By: #### L 500.4050, L500.4100, L100.0100 #### [facility] [address] [place], [address] Absolute Neut 3.5 X10 3/uL Normal 2.0-7.7 [facility] Comment on above: Performed By: #### L 500.4050, L500.4100, L100.0100 #### [facility] [address] [place], [address] Basophils/100 WBC (Bld) 0.4 % Normal 0-1 [facility] Comment on above: Performed By: #### L 500.4050, L500.4100, L100.0100 #### [facility] [address] [place], [address] Eosinophils/100 WBC (Bld) 3.1 % Normal 0-5 [facility] Comment on above: Performed By: #### L 500.4050, L500.4100, L100.0100 #### [facility] [address] [place], [address] Erythrocyte distribution width (RBC) [Ratio] 11.6 % Normal 11.6-14.6 [facility] Comment on above: Performed By: #### L 500.4050, L500.4100, L100.0100 #### [facility] [address], [address] Hematocrit (Bld) [Volume fraction] 39.8 % Normal 37-47 [facility] Comment on above: Performed By: #### L 500.4050, L500.4100, L100.0100 #### [facility] [address] [place], [address] Hemoglobin (Bld) [Mass/Vol] 13.4 g/dL Normal 12.0-15.0 [facility] Comment on above: Performed By: #### L 500.4050, L500.4100, L100.0100 #### [facility] [address] [place], [address] IG% 0.400 Normal 0.0-0.9 [facility] Comment on above: Result Comment: IG% - Immature Granulocytes (promyelocytes, myelocytes and metamyelocytes) > 1% indicates that a LEFT SHIFT is Present. Performed By: #### L 500.4050, L500.4100, L100.0100 #### [facility] [address] [place], [address] Lymphocytes/100 WBC (Bld) 23.5 % Normal 19-41 [facility] Comment on above: Performed By: #### L 500.4050, L500.4100, L100.0100 #### [facility] [address] [place], [address] MCH (RBC) [Entitic mass] 33.7 pg High 27.0-32.0 [facility] Comment on above: Performed By: #### L 500.4050, L500.4100, L100.0100 #### [facility] [address] [place], [address] MCHC (RBC) [Mass/Vol] 33.7 g/dL Normal 32-36 [facility] Comment on above: Performed By: #### L 500.4050, L500.4100, L100.0100 #### [facility] [address] [place], [address] MCV (RBC) [Entitic vol] 100.0 fL High 81-99 [facility] Comment on above: Performed By: #### L 500.4050, L500.4100, L100.0100 #### [facility] [address] [place], [address] Monocytes/100 WBC (Bld) 9.2 % Normal 0-10 [facility] Comment on above: Performed By: #### L 500.4050, L500.4100, L100.0100 #### [facility] [address] [place], [address] Neutrophils/100 WBC (Bld) 63.4 % Normal 47-70 [facility] Comment on above: Performed By: #### L 500.4050, L500.4100, L100.0100 #### [facility] [address] [place], [address] Nucleated RBC (Bld) [#/Vol] 0 10*3/uL Normal 0-5 [facility] Comment on above: Performed By: #### L 500.4050, L500.4100, L100.0100 #### [facility] [address] [place], [address] Platelet mean volume (Bld) [Entitic vol] 10.0 fL Normal 6.2-12.0 [facility] Comment on above: Performed By: #### L 500.4050, L500.4100, L100.0100 #### [facility] [address] [place], [address] Platelets (Bld) [#/Vol] 228 10*3/uL Normal 150-450 [facility] Comment on above: Performed By: #### L 500.4050, L500.4100, L100.0100 #### [facility] [address] [place], [address] RBC (Bld) [#/Vol] 3.98 10*6/uL Low 4.2-5.4 [facility] Comment on above: Performed By: #### L 500.4050, L500.4100, L100.0100 #### [facility] [address] [place], [address] RDW SD 42.3 fl Normal 35.1-43.9 [facility] Comment on above: Performed By: #### L 500.4050, L500.4100, L100.0100 #### [facility] [address] [place], [address] WBC (Bld) [#/Vol] 5.5 10*3/uL Normal 4.4-11.0 [facility] Comment on above: Performed By: #### L 500.4050, L500.4100, L100.0100 #### [facility] [address] [place], [address] Calculated very low density lipoprotein (VLDL) cholesterol measurementOrdered By: Berhane Shukla on 11-23-2024 Calculated very low density lipoprotein (VLDL) cholesterol measurement 26 mg/dL 5-40 [facility] Carbon dioxide, total [Moles /volume] in Central venous bloodOrdered By: Berhane Shukla on 11-23-2024 CO2 [Moles/Vol] 26.1 mmol/L 21.0-32.0 [facility] Cardiology Visit Reporton Cardiology Visit Report [facility] [address] [place] [address] OFFICE VISIT Date of Service: 11/23/24 MR#: [id number] Acct: [id number] Name: FANNIE AVALOS Rep #: [id number] 2 : 1945 Provider: SENDY Dinero Age/Sex: 79/F [place] [facility] Status: Signed HPI HPI History of Present Illness Details: Fannie Avalos is an 79-year-old female who presents today for follow-up for monitoring her cardiovascular health. She has a history of aortic valve insufficiency, carotid artery stenosis and hyperlipidemia. Upon presentation today, patient reports dizziness with standing and with walking that she describes as feeling lightheaded and off balance. She does not report any other concerns. Further ROS below. Her home BP is reported to be similar to today's findings. Intake Vital Signs 12/10/23 09:45 11/23/24 08:36 11/23/24 15:47 11/23/24 15:47 11/23/24 15:48 Height 5 ft 3.5 in 5 ft 3.5 in Weight: 136 lb BMI 23.7 BP 106/66 104/62 98/58 L 102/60 Blood Pressure Location Lt brachial Lt brachial Lt brachial Lt brachial Position Sitting Supine Sitting Standing Respiration 18 Pulse 69 Pulse Source Monitor Pulse Oximetry (%) 98 Intake Visit Reasons: 1 Y FU Cnc Service Technician Required: No Is patient in pain?: No Allergies clindamycin Allergy (Intermediate, Verified 11/23/24 09:08) nausea/vomiting sulfamethoxazole (From Bactrim) Allergy (Intermediate, Verified 11/23/24 09:08) nausea/vomiting trimethoprim (From Bactrim) Allergy (Intermediate, Verified 11/23/24 09:08) nausea/vomiting Gadolinium-MRI Contrast Medium Allergy (Verified 11/23/24 09:08) Hives levofloxacin (From Levaquin) Adverse Reaction (Verified 11/23/24 09:08) Nausea metronidazole (From Flagyl) Adverse Reaction (Verified 11/23/24 09:08) Nausea Medications ???Medication ???Instructions ???Recorded ???Confirmed ???Type cholecalciferol (vitamin D3) 25 1,000 unit PO DAILY 03/25/2011/23 History mcg (1,000 unit) tablet aspirin 81 mg tablet,delayed 81 mg PO DAILY 01/31/22 11/23/24 H istory release atorvastatin 40 mg tablet 40 mg PO QHS 01/31/22 11/23/24 His tory calcium 600 mg (as 1 cap PO DAILY 01/31/22 11/23/24 H istory carbonate)-vitamin D3 5 mcg (200 unit) capsule (Calcium 600 + D(3)) multivitamin 1 tab PO DAILY supplement 01/31/22 11/23/24 History vitamin E (dl, acetate) 90 mg (200 90 mg PO DAILY 01/31/22 11/23/24 History unit) capsule omega-3 fatty acids-fish oil 300 1 cap PO SA 02/11/22 11/23/24 Hist ory mg-1,000 mg capsule vit A 300 mcg-C 200 mg-E 27 1 tab PO DAILY 03/28/23 11/23/24 H istory mg-lutein 2 mg and minerals tablet (Healthy Eyes) Have you fallen in the past year?: Yes [facility] Medical History Rectal pressure PAC (premature atrial contraction) Easy fatigability Ventral incisional hernia without obstruction or gangrene Back pain History of irregular heartbeat Gastric reflux Vertigo Nonrheumatic aortic (valve) insufficiency Aortic regurgitation Fecal occult blood test positive Wears glasses High cholesterol History of IBS Non-smoker Cardiology follow-up encounter History of echocardiogram History of stress test Status post gamma knife treatment Fecal occult blood test positive Melanotic stools Carpal tunnel syndrome Recurrent incisional hernia with incarceration Irregular heart rhythm Incontinence of feces Carotid artery stenosis Left Achilles tendinitis Osteopenia Allergic rhinitis IBS (irritable bowel syndrome) Benign neoplasm of colon Acute left-sided thoracic back pain Palpitations Hyperlipidemia Benign neoplasm of meninges Benign meningioma of brain Epigastric abdominal pain Anorectal pain RLQ abdominal pain Cecum perforation Change in bowel habit Esophageal dysphagia Personal history of colonic polyps Hemorrhoids Blood in stool Constipation Diarrhea Surgical History History of lumbar spinal fusion History of esophagogastroduodenoscopy (EGD) History of ERCP ( 03/2018) Hx of cholecystectomy ( 03/2018) History of spinal fusion History of hemorrhoidectomy History of colectomy History of removal of ovarian cyst History of hysterectomy Family History Mother Breast cancer Thyroid disorder Aunt Breast cancer Social History Smoking Status: Never smoker alcohol intake: never substance use type: does not use caffeine: Yes (occasionally) Type: carbonated beverages ROS Const Const: Negative for fatigue, weakness, headache(s) or frequent falls Eyes Eyes: Negative for blurry visi (more content not included)... Normal [facility] Chloride assayOrdered By: Jorge A Shukla on 11-23-2024 Chloride [Moles/Vol] 106 mmol/L 98-108 [facility] Comprehensive Metabolic Prof ilon 11-23-2024 Albumin [Mass/Vol] 4.3 g/dL Normal 3.4-4.8 [facility] Comment on above: Performed By: #### L 500.4050, L500.4100, L100.0100 #### [facility] [address] [place], [address] Albumin/Globulin [Mass ratio] 1.8 {ratio} Normal 0.9-2.4 [facility] Comment on above: Performed By: #### L 500.4050, L500.4100, L100.0100 #### [facility] [address] [place], [address] ALK PHOS 89 U/L Normal 35-104 [facility] Comment on above: Performed By: #### L 500.4050, L500.4100, L100.0100 #### [facility] [address] [place], [address] ALT [Catalytic activity/Vol] 20 U/L Normal <=34 [facility] Comment on above: Performed By: #### L 500.4050, L500.4100, L100.0100 #### [facility] [address] [place], [address] AST [Catalytic activity/Vol] 26 U/L Normal <=31 [facility] Comment on above: Performed By: #### L 500.4050, L500.4100, L100.0100 #### [facility] [address] [place], [address] Bilirubin [Mass/Vol] 0.99 mg/dL Normal 0.00-1.30 [facility] Comment on above: Performed By: #### L 500.4050, L500.4100, L100.0100 #### [facility] [address] [place], [address] BUN/CRE 25.8 RATIO High 10-20 [facility] Comment on above: Performed By: #### L 500.4050, L500.4100, L100.0100 #### [facility] [address] [place], [address] Calcium [Mass/Vol] 9.4 mg/dL Normal 7.6-11.0 [facility] Comment on above: Performed By: #### L 500.4050, L500.4100, L100.0100 #### [facility] [address] [place], [address] Chloride [Moles/Vol] 106 mmol/L Normal 98-108 [facility] Comment on above: Performed By: #### L 500.4050, L500.4100, L100.0100 #### [facility] [address] [place], [address] CO2 [Moles/Vol] 26.1 mmol/L Normal 21.0-32.0 [facility] Comment on above: Performed By: #### L 500.4050, L500.4100, L100.0100 #### [facility] [address] [place], [address] Creatinine [Mass/Vol] 0.60 mg/dL Low 0.70-1.20 [facility] Comment on above: Performed By: #### L 500.4050, L500.4100, L100.0100 #### [facility] [address] [place], [address] GAP 11 Normal 5-15 [facility] Comment on above: Performed By: #### L 500.4050, L500.4100, L100.0100 #### [facility] [address] [place], [address] GFR/1.73 sq M.predicted among non-blacks MDRD (S/P/Bld) [Vol rate/Area] 90 mL/min/{1.73_m2} Normal >60 [facility] Comment on above: Result Comment: mL/m in/1.73m2 CKD-EPI Creatinine Equation (2020) Performed By: #### L 500.4050, L500.4100, L100.0100 #### [facility] [address] [place], [address] Globulin (S) [Mass/Vol] 2.4 g/dL Normal 2.2-4.2 [facility] Comment on above: Performed By: #### L 500.4050, L500.4100, L100.0100 #### [facility] [address] [place], [address] Glucose [Mass/Vol] 87 mg/dL Normal 70-99 [facility] Comment on above: Performed By: #### L 500.4050, L500.4100, L100.0100 #### [facility] [address] [place], [address] Potassium [Moles/Vol] 3.7 mmol/L Normal 3.3-5.1 [facility] Comment on above: Performed By: #### L 500.4050, L500.4100, L100.0100 #### [facility] [address] [place], [address] Sodium [Moles/Vol] 143 mmol/L Normal 133-145 [facility] Comment on above: Performed By: #### L 500.4050, L500.4100, L100.0100 #### [facility] [address] [place], [address] T PROT 6.7 g/dL Normal 5.9-8.4 [facility] Comment on above: Performed By: #### L 500.4050, L500.4100, L100.0100 #### [facility] [address] [place], [address] Urea nitrogen [Mass/Vol] 15 mg/dL Normal 4-19 [facility] Comment on above: Performed By: #### L 500.4050, L500.4100, L100.0100 #### [facility] [address] [place], [address] Eosinophil percentageOrdered By: Berhane Demayaka on 11-23-2024 Eosinophils/100 WBC (Bld) 3.1 % 0-5 [facility] Erythrocyte distribution wid th ratioOrdered By: Berhane Demiter on 11-23-2024 Erythrocyte distribution width (RBC) [Ratio] 11.6 % 11.6-14.6 [facility] Erythrocyte distribution wid th standard deviationOrdered By: Berhane Demiter on 11-23-2024 Erythrocyte distribution width (RBC) [Ratio] 42.3 fl 35.1-43.9 [facility] Glomerular filtration rate ( GFR) estimation/1.73 sq m using serum, plasma, or whole bOrdered By: Berhane Shukla on 11-23-2024 GFR/1.73 sq M.predicted among non-blacks MDRD (S/P/Bld) [Vol rate/Area] 90 mL/min/{1.73_m2} >60 [facility] Comment on above: mL/min/1.73m2 CKD-EP I Creatinine Equation (2020) Hematocrit Auto (Bld) [Volum e fraction]Ordered By: Berhane Shukla on 11-23-2024 Hematocrit (Bld) [Volume fraction] 39.8 % 37-47 [facility] Hemoglobin measurementOrdere d By: Berhane Shukla on 11-23-2024 Hemoglobin (Bld) [Mass/Vol] 13.4 g/dL 12.0-15.0 [facility] Immature granulocytes/100 WB C Auto (Bld)Ordered By: Berhane Shukla on 11-23-2024 Immature granulocytes/100 WBC (Bld) 0.400 % 0.0-0.9 [facility] Comment on above: IG% - Immature Granu locytes (promyelocytes, myelocytes and metamyelocytes) > 1% indicates that a LEFT SHIFT is Present. LDL calc ser/plasOrdered By: Berhane Shukla on 11-23-2024 Cholesterol in LDL [Mass/Vol] 39 mg/dL [facility] Comment on above: Wpsdridlop=338-753 m g/dL & Higher Vwnx=636 mg/dL or greaterFriedwald Equation for LDL-C Laboratory - Chemistry and C hemistry - challengeOrdered By: Berhane Shukla on 11-23-2024 AST [Catalytic activity/Vol] 26 U/L <32 [facility] Lipid Profileon 11-23-2024 CHOL:HDL 1.90 Normal [facility] Comment on above: Performed By: #### L 500.4050, L500.4100, L100.0100 #### [facility] [address] [place], [place], [address] Cholesterol [Mass/Vol] 138 mg/dL Normal <=200 [facility] Comment on above: Result Comment: Chol esterol level, Desirable <200 mg/dL Borderline high cholesterol 200-239 mg/dL High cholesterol >=240 mg/dL Recommendations of the NCEP Adult Treatment Panel for the following risk-cutoff thresholds for the [place] population. Performed By: #### L 500.4050, L500.4100, L100.0100 #### [facility] [address] [place], [address] Cholesterol in HDL [Mass/Vol] 73 mg/dL Normal [facility] Comment on above: Result Comment: Kavita onal Cholesterol Education Program (NCEP) guidelines: <40 mg/dL: Low HDL-cholesterol (major risk factor for CHD) >= 60 mg/dL: High HDL-cholesterol (negative risk factor for CHD) HDL-cholesterol is affected by a number of factors, e.g. smoking, exercise, hormones, sex and age. Performed By: #### L 500.4050, L500.4100, L100.0100 #### [facility] [address] [place], [address] Cholesterol in LDL [Mass/Vol] 39 mg/dL Normal [facility] Comment on above: Result Comment: Bord illxpp=977-246 mg/dL Higher Tgvq=074 mg/dL or greater Friedwald Equation for LDL-C Performed By: #### L 500.4050, L500.4100, L100.0100 #### [facility] [address] [place], [address] Cholesterol in VLDL [Mass/Vol] 26 mg/dL Normal 5-40 [facility] Comment on above: Performed By: #### L 500.4050, L500.4100, L100.0100 #### [facility] [address] [place], [address] Triglyceride [Mass/Vol] 132 mg/dL Normal [facility] Comment on above: Result Comment: The drugs N-Acetylcysteine and Metamizole may falsely depress this assay. Normal range: <150 mg/dL Borderline High: 150-199 mg/dL High: 200-499 mg/dL Very High: >500 mg/dL Performed By: #### L 500.4050, L500.4100, L100.0100 #### [facility] [address] [place], [address] MCV (mean corpuscular volume ) determinationOrdered By: Berhane Shukla on 11-23-2024 MCV (RBC) [Entitic vol] 100.0 fL High 81-99 [facility] Mean corpuscular hemoglobin (MCH) determinationOrdered By: Berhane Shukla on 11-23-2024 MCH (RBC) [Entitic mass] 33.7 pg High 27.0-32.0 [facility] Mean corpuscular hemoglobin concentration (MCHC) determinationOrdered By: Berhane Shukla on 11-23-2024 MCHC (RBC) [Mass/Vol] 33.7 g/dL 32-36 [facility] Mean platelet volume determi nationOrdered By: Berhane Shukla on 11-23-2024 Platelet mean volume (Bld) [Entitic vol] 10.0 fL 6.2-12.0 [facility] Monocyte percentageOrdered B y: Berhane Shukla on 11-23-2024 Monocytes/100 WBC (Bld) 9.2 % 0-10 [facility] Neutrophil percentageOrdered By: Berhane Shukla on 11-23-2024 Neutrophils/100 WBC (Bld) 63.4 % 47-70 [facility] Nucleated red blood cell per centageOrdered By: Berhane Shukla on 11-23-2024 Nucleated RBC/100 WBC (Bld) [Ratio] 0 % 0-5 [facility] Platelet countOrdered By: Jorge A Shukla on 11-23-2024 Platelets (Bld) [#/Vol] 228 10*3/uL 150-450 [facility] Potassium measurement (mass/ volume)Ordered By: Berhane Shukla on 11-23-2024 Potassium (Unsp spec) [Mass/Vol] 3.7 mmol/L 3.3-5.1 [facility] RBC Auto (Bld) [#/Vol]Ordere d By: Berhane Shukla on 11-23-2024 RBC (Bld) [#/Vol] 3.98 10*6/uL Low 4.2-5.4 [facility] Screening total cholesterol/ high density lipoprotein (HDL) cholesterol ratioOrdered By: Berhane Shukla on 11-23-2024 Cholesterol.total/Chol esterol in HDL [Mass ratio] 1.90 {ratio} [facility] Serum creatinine measurement (mass/volume)Ordered By: Berhane Shukla on 11-23-2024 Creatinine [Mass/Vol] 0.60 mg/dL Low 0.70-1.20 [facility] Serum globulin measurementOr dered By: Berhane Shukla on 11-23-2024 Globulin (S) [Mass/Vol] 2.4 g/dL 2.2-4.2 [facility] Serum glucose measurement (m ass/volume)Ordered By: Berhane Shukla on 11-23-2024 Glucose [Mass/Vol] 87 mg/dL 70-99 [facility] Serum or plasma alanine bey otransferase (ALT) measurementOrdered By: Berhane Shukla on 11-23-2024 ALT [Catalytic activity/Vol] 20 U/L <35 [facility] Serum or plasma albumin kehinde urement (mass/volume)Ordered By: Berhane Shukla on 11-23-2024 Albumin [Mass/Vol] 4.3 g/dL 3.4-4.8 [facility] Serum or plasma albumin/glob ulin mass ratioOrdered By: Berhane Shukla on 11-23-2024 Albumin/Globulin [Mass ratio] 1.8 {ratio} 0.9-2.4 [facility] Serum or plasma alkaline tammy sphatase measurementOrdered By: Berhane Shukla on 11-23-2024 ALP [Catalytic activity/Vol] 89 U/L 35-104 [facility] Serum or plasma calcium kehinde urement (mass/volume)Ordered By: Berhane Shukla on 11-23-2024 Calcium [Mass/Vol] 9.4 mg/dL 7.6-11.0 [facility] Serum or plasma cholesterol in HDL measurement (mass/volume)Ordered By: Berhane Shukla on 08-05-2025 Cholesterol in HDL [Mass/Vol] 73 mg/dL >40 [facility] Comment on above: National Cholesterol Education Program (NCEP) guidelines:<40 mg/dL: Low HDL-cholesterol (major risk factor for CHD)>= 60 mg/dL: High HDL-cholesterol (negative risk factor for CHD)HDL-cholesterol is affected by a number of factors, e.g. smoking, exercise, hormones, sex and age. Serum or plasma cholesterol measurement (mass/volume)Ordered By: Berhane Shukla on 11-23-2024 Cholesterol [Mass/Vol] 138 mg/dL <201 [facility] Comment on above: Cholesterol level, D esirable <200 mg/dLBorderline high cholesterol 200-239 mg/dLHigh cholesterol >=240 mg/dLRecommendations of the NCEP Adult Treatment Panel for the following risk-cutoff thresholds for the [place] population. Serum or plasma urea nitroge n measurement (mass/volume)Ordered By: Berhane Shukla on 11-23-2024 Urea nitrogen [Mass/Vol] 15 mg/dL 4-19 [facility] Sodium levelOrdered By: Lorie Shukla on 11-23-2024 Sodium [Moles/Vol] 143 mmol/L 133-145 [facility] Total proteinOrdered By: Kb Shukla on 11-23-2024 Protein [Mass/Vol] 6.7 g/dL 5.9-8.4 [facility] Triglycerides measurementOrd ered By: Berhane Shukla on 11-23-2024 Triglyceride [Mass/Vol] 132 mg/dL <199 [facility] Comment on above: The drugs N-Acetylcy steine and Metamizole may falsely depress this assay. Normal range: <150 mg/dLBorderline High: 150-199 mg/dLHigh: 200-499 mg/dLVery High: >500 mg/dL White blood cell (WBC) count Ordered By: Berhane Shukla on 11-23-2024 WBC (Bld) [#/Vol] 5.5 10*3/uL 4.4-11.0 [facility] BACTERIAL VAGINOSIS NAATon 0 6- Lactobacillus crispatus+gasseri+сергей enii + Gardnerella vaginalis + Atopobium vaginae rRNA DAR+probe Ql (Vag fld) Not detected Normal Not detected [facility] Comment on above: Order Comment: Speci men Type: SWABOrdering Facility: [facility] Address: [address] [place] [address] Performed By: #### B VAMP, CVTV ####[facility] [id number] [place] [address] [place] VENKAT/TRICHOMONAS NAATon 0 10-04-2024 C. glabrata RNA DAR+probe Ql (Vag fld) Not detected Normal Not detected [facility] Comment on above: Order Comment: Speci men Type: SWABOrdering Facility: [facility] Address: [address] [place] [address] Performed By: #### B VAMP, CVTV ####[facility] LABCLIA [id number] [address] [place] Venkat sp DNA DAR+probe Ql (Vag fld) Not detected Normal Not detected [facility] Comment on above: Order Comment: Speci men Type: SWABOrdering Facility: [facility] Address: [address] [place] [address] Result Comment: The Venkat species group target includes C. albicans, C. tropicalis, C. parapsilosis, and C. dubliniensis. Performed By: #### B VAMP, CVTV ####[facility]CLIA [id number] [address] [place] T. vaginalis DNA DAR+probe Ql (Unsp spec) Not detected Normal Not detected [facility] Comment on above: Order Comment: Speci men Type: SWABOrdering Facility: [facility] Address: [address] [place] [address] Performed By: #### B VAMP, CVTV ####[facility] LABCLIA [id number] [place] [address] [place] CNOVon 10-04-2024 CNOV Office Visit (OBGYWM ) FANNIE AVALOS ([id number]) 1945 F Date Time Provider Department 10/04/24 9:15 AM JEANNINE KNIGHT During your visit today, we recorded the following information about you: Blood pressure Weight 122/70 61.2 kg Jeannine Knight, ALFREDO.FINANCE SPECIALIST 10/04/2024 9:53 AM Signed Regional Climate Change Analyst offered: Patient declines. Fannie Avalos is a 79 year old female who presents for problem visit of vaginal itching. HPI: Fannie has had vaginal itching that started 7-9 months ago, which is aggravated by bathing. She does wear thin pads due to occasional liquid stools. She was prescribed a single dose of Diflucan, as well as Nystatin-Triamcinolone. Symptoms have somewhat improved, but not totally resolved. Has stopped taking soapy baths. She is out of the ointment and no longer using. She also notes a new suspected mole to her neck that she would like evaluated. 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 Age at Menarche: Age at First : Age at Menopause: Sewage Disposal Engineer History Comments: Sexual Activity: Not Asked; No partner data on record Contraception: No contraception data on record 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 CERVICAL SPONDYLOSIS 02/26/2005 Diarrhea Diverticulosis of colon 01/06/2009 Esophageal reflux Hemorrhage of rectum and anus 12/02/2017 HEMORRHOIDS NOS 11/30/2008 HYPERLIPIDEMIA NEC/NOS 03/18/2005 IBS (irritable bowel syndrome) 01/26/2013 Incontinence of feces 11/30/2008 Incontinence of feces 03/09/2021 Left leg weakness 03/01/2024 Nausea vomiting and diarrhea 04/06/2024 Osteopenia Palpitations 01/13/2012 Perforation of large intestine (HCC) 12/03/2017 Primary osteoarthritis of left hip 03/01/2024 Spondylosis, 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 TIA (transient ischemic attack) 06/17/2017 [place], [place] PAST SURGICAL HISTORY Procedure Laterality Date CHOLECYSTECTOMY HX 03/2018 COLONOSCOPY FLX DX W/COLLJ SPEC WHEN PFRMD 10/20/2003 Colonoscopy COLONOSCOPY FLX DX W/COLLJ SPEC WHEN PFRMD 01/06/2009 Extensive diverticulosis/hemorrhoids COLONOSCOPY FLX DX W/COLLJ SPEC WHEN PFRMD 07/24/2012 [place] COLSC FLEXIBLE W/CONTROL BLEEDING ANY METHOD 12/02/2017 laser of cecal AVM DRAIN ABDOMINAL ABSCESS, PERCUTANEOUS 12/15/2017 perianastomotic abscess EGD 12/02/2017 ESOPHAGOGASTRODUODENOSCOPY TRANSORAL DIAGNOSTIC 07/03/2012 [place] GAMMA KNIFE 1FX TX DELIVERY 02/12/2022 x 3 on 01/15/22; 01/29/22; 02/12/22 HEMORRHOIDECTOMY INT AND XTRNL 2/> COLUMN/HI 10/26/2009 LAMINECTOMY W/RMVL ABNORMAL FACETS LUMBAR 07/08/2011 [place], [place] LAPAROSCOPY COLECTOMY PARTIAL W/ANASTOMOSIS 02/02/2009 LAPAROSCOPY COLECTOMY PARTIAL W/ANASTOMOSIS Right 12/03/2017 LAPS MOBLJ SPLENIC FLXR PFRMD W/PRTL COLECTOMY 02/02/2009 PAST SURGICAL HISTORY OF 1964 ovarian cyst removed PAST SURGICAL HISTORY OF 2001 BREAST BIOPSY--BENIGN PAST SURGICAL HISTORY OF 03/28/2018 Gallbladder removed SIGMOIDOSCOPY FLX CONTROL BLEEDING 03/22/2009 Granulation tissue at anastomosis SIGMOIDOSCOPY FLX W/BIOPSY SINGLE/MULTIPLE 02/28/2011 TOTAL ABDOMINAL HYSTERECT W/WO RMVL TUBE OVARY 02/1990 Hysterectomy, TERI, BSO FAMILY HISTORY Problem Relation Age of Onset Breast Cancer Mother dec. age 88 Blood Disease Father PE, post MVA, dec. 53yo Breast Cancer Sister Myositis Sister Inclusion Body Myositis None Sister Alzheimer's Disease Sister other (multiple myeloma) Brother Social History Tobacco Use Smoking status: Never Smokeless tobacco: Never Vaping Use Vaping status: Never Used Substance Use Topics Alcohol use: No Drug use: No Current Outpatient Medications Medication Sig alendronate (FOSAMAX) 70 mg tablet Take 1 tablet by mouth one time a week. Take with a full glass of water, on an empty stomach; do NOT lie down for 30minutes. nystatin-triamcinolone (MYCOLOG) ointment Apply 1 application to affected area two times a day. Apply sparingly to perineum twice daily for irritation/infection. iv contrast (will be provided with radiology test) MRI Brain Inject, intravenously, once for 1 dose.No IV access, insert saline lock prior to beginning of sedation, infusion, injection of imaging exam.Discontinue saline lock post exam. If Pt. has a central line or IVAD, may access for administration according to line specific nursing protocol.Once exam is complete flush line and de-access according to line specific nursing protocol in the MR contrast administration guidelines link lactobacillus rhamn (more content not included)... Normal [facility] CNOVon 09-28-2024 CNOV Office Visit (INTMWS ) FANNIE AVALOS ([id number]) 1945 F Date Time Provider Department 09/28/24 8:40 AM GAVIN TRAN INTMWS During your visit today, we recorded the following information about you: Temperature Pulse Respiration Blood pressure 98.9 degrees 76/minute 16/minute 114/66 Weight 62.1 kg Gavin Tran MD 09/28/2024 9:34 AM Signed This note was created using Fortic[employer]. Subjective Fannie Avalos is a 79 year old female. Recording using Wiki-PR software for draft documentation of the visit was discussed with the patient/authorized product representative; all questions welcomed and answered. Patient/authorized product representative agreed to proceed Osteoporosis: - Diagnosed with osteoporosis approximately one year ago; previously had osteopenia. - Currently taking Fosamax once weekly for about a year. - Considering switching to Prolia based on friends' recommendations but has decided to continue with Fosamax due to familiarity and adjustment to the regimen. Carpal Tunnel Syndrome: - Experiencing pins and needles sensation in the arm and hand, particularly at night, x6-7 months. - Symptoms began while in [place] and have persisted. - Using a wrist splint at night, which alleviates symptoms. - Denies weakness, decreased windows architect strength, or dropping objects. Balance Issues: - Gradual onset of balance issues x7-8 months. - Feels lightheaded when walking, especially in unfamiliar areas. - Uses a walking stick or cane occasionally for support. - Denies dizziness or balance issues when getting up from a chair. - Has a history of a fall in February at the [facility] but denies any recent falls. - Recent scan for meningioma showed no changes; Dr. Martinez did not believe the balance issues were related. Yeast Infection: - Recently treated for a yeast infection with a single-dose oral medication and ointment prescribed by Naman Heredia. - Severe itching resolved after treatment, with only one recurrence after a hot bath. - Has an upcoming appointment with a casket upholsterer. Osteoarthritis: - History of osteoarthritis in the left hip. - Underwent physical therapy last year following a fall. - No longer an issue at this time. Review of Systems Genitourinary: (-) vaginal pruritus Skin: (-) pruritus Neurological: (+) nocturnal arm and hand paresthesias, (+) memory impairment, (+) unsteady gait, (+) lightheadedness, (-) dizziness, (-) limb weakness ACTIVE PROBLEM LIST Hyperlipidemia Allergic Rhinitis Ibs (Irritable Bowel Syndrome) Age-Related Osteoporosis Without Current Pathological Fracture Benign Meningioma of Brain (Hcc) Carotid Artery Stenosis Benign Neoplasm of Meninges (Hcc) Memory Disturbance Left Leg Weakness Primary Osteoarthritis of Left Hip Carpal Tunnel Syndrome On Right Current Outpatient Medications Medication Sig nystatin-triamcinolone (MYCOLOG) ointment Apply 1 application to affected area two times a day. Apply sparingly to perineum twice daily for irritation/infection. lactobacillus rhamnosus (CULTURELLE) 10 billion cell capsule Take 1 capsule by mouth once daily. atorvastatin (LIPITOR) 40 mg tablet TAKE 1 TABLET EVERY DAY AT BEDTIME FOR CHOLESTEROL meclizine (ANTIVERT) 12.5 mg tab Take 2 tablets by mouth three times a day as needed. naproxen (NAPROSYN) 500 mg tablet Take 1 tablet by mouth two times a day with meals. fluticasone (FLONASE) 50 mcg/actuation nasal spray Use 2 Sprays in each nostril once daily. Rinse mouth after use. carvedilol (COREG) 3.125 mg tablet Take 3.125 mg by mouth two times a day with meals. Cholecalciferol, Vitamin D3, 25 mcg (1,000 unit) cap Take 1 capsule by mouth once daily. VITAMIN E 200 UNIT CAP Take 200 Units by mouth once daily. Perry-3 Fatty Acids (FISH OIL) ORAL Cap Take one(1) capsule daily. MULTIVITAMIN TAB Take one(1) tablet daily. CALCIUM + D 600 MG-200 UNIT TAB Take one(1) tablet daily. ASPIRIN 81 MG TAB Take 81 mg by mouth once daily. alendronate (FOSAMAX) 70 mg tablet Take 1 tablet by mouth one time a week. Take with a full glass of water, on an empty stomach; do NOT lie down for 30minutes. iv contrast (will be provided with radiology test) MRI Brain Inject, intravenously, once for 1 dose.No IV access, insert saline lock prior to beginning of sedation, infusion, injection of imaging exam.Discontinue saline lock post exam. If Pt. has a central line or IVAD, may access for administration according to line specific nursing protocol.Once exam is complete flush line and de-access according to line specific nursing protocol in the MR contrast administration guidelines link No current facility-administered medications for this visit. Objective BP 114/66 Pulse 76 Temp 37.2 ?C (98.9 ?F) (Temporal) Resp 16 Wt 62.1 kg (136 lb 14.5 oz) BMI 24.25 kg/m? Physical Exam (more content not included)... Normal [facility] UA DIP, URINE (POC)on 2024 BILIRUBIN UA (POCT) Negative Negative [facility] CLARITY UA (POCT) Clear [facility] COLOR UA (POCT) Yellow [facility] GLUCOSE UA (POCT) Negative Negative mg/dL [facility] Hemoglobin Ql (U) Trace-intact Abnormal Negative [facility] Interpretation and review of laboratory results Abnormal [facility] KETONE UA (POCT) Negative Negative mg/dL [facility] LEUKOCYTES UA (POCT) Negative [facility]) Negative Negative [facility] PH UA (POCT) 5.5 4.5 - 8.0 [facility] Protein Ql (U) Negative Negative mg/dL [facility] SPECIFIC GRAVITY UA (POCT) 1.025 1.005 - 1.030 [facility] UROBILINOGEN UA (POCT) 0.2 Victorina l E.U./dL [facility] Location:[address], [place], [place], [id number] [place] [address] POINT OF CARE [facility] CNOVon 2024 CNOV Office Visit (INTMWS ) FANNIE AVALOS ([id number]) 1945 F Date Time Provider Department 09/06/24 3:00 PM JÚNIOR HEREDIA INTMWS During your visit today, we recorded the following information about you: Pulse Respiration Blood pressure Weight 76/minute 16/minute 133/73 60 kg Júnior Heredia APRN.CIVILIAN JAIL OFFICER 2024 4:38 PM Signed Subjective Patient ID: Bella is a 79 year old female who presents for vaginal itching. HPI Bella is an 79-year-old female presenting for evaluation of vulvar pruritus. Vulvar Pruritus: - Onset 6-8 months ago, initially mild and occurring primarily in the evening. - Aggravated by bathing; initially relieved by scratching. - Symptoms have intensified over the past month, with increased frequency and duration of pruritus. - Describes a sharp pain on one side of the labia when scratching. - Using an [id number] topical cream from [employer] with minimal relief. - Denies vaginal discharge or odor. - Bathes daily, using soap and water for cleansing. - Wears thin stick-on pads due to occasional liquid stools. - Has an upcoming gynecology appointment in September. ROS Gastrointestinal: (+) occasional diarrhea Genitourinary: (+) vulvar itching, (+) vulvar pain with scratching, (-) vaginal discharge, (-) odor No UTI symptoms. Objective BP 133/73 Pulse 76 Resp 16 Wt 60 kg (132 lb 4.4 oz) BMI 23.43 kg/m? Physical Exam Vitals and nursing note reviewed. Constitutional: Appearance: Normal appearance. HENT: Head: Normocephalic and atraumatic. Eyes: Conjunctiva/sclera: Conjunctivae normal. Cardiovascular: Rate and Rhythm: Normal rate. Pulmonary: Effort: Pulmonary effort is normal. Skin: General: Skin is warm and dry. Neurological: General: No focal deficit present. Mental Status: She is alert and oriented to person, place, and time. no drainage, skin excoriated right vulvar region, no mass erythema or warmth 1. Pruritus vulvae (L29.2) 2. 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 - No associated discharge or odor reported. - External examination performed; noted irritation likely from scratching. - Prescribed a single dose of oral antifungal medication. - Prescribed antifungal and steroid cream; instructed to apply daily until gynecology appointment. - Advised to discontinue use of soap in the vulvar area; recommended gentle cleansing with water and a washcloth only. Avoid current OTC cleaning wipes and OTC topical treatment. - Discussed avoiding tight clothing and allowing the area to remain clean, dry, and . - Follow-up with gynecology appointment in September. - understands and agrees with the treatment plan. Júnior Heredia APRN.CIVILIAN JAIL OFFICER Medical Decision Making: Problems: Low: Acute, uncomplicated illness or injury Risk: Moderate: Drug management Medical Decision Making Level: 3 - Júnior Luz APRN.CIVILIAN JAIL OFFICER 2024 3:45 PM Signed A single antifungal pill has been prescribed to cover for a possible yeast infection. Use the new antifungal and steroid cream on the affected area daily until your gynecology appointment in September. Stop using the previous vaginal product purchased at [facility]. When cleaning your vaginal area, use only water and a washcloth - avoid soap to prevent irritation. Avoid scratching the area despite the urge, as it may worsen irritation. If your symptoms do not improve or if they worsen before your appointment, please contact our office via MyChart or give the nurses a call. Allergies As of Date: 2024 Noted Allergy Reaction BACTRIM (SULFAMETHOXAZOLE-TRIMETH* 8 - GI Upset Comments: nausea CLINDAMYCIN HCL 09/25/2010 8 - GI Upset FLAGYL (METRONIDAZOLE HCL) 10/19/2009 8 - GI Upset GADOLINIUM-CONTAINING CONTRAST ME*10/28/2017 4 - Hives Comments: Gadolinium/Gadavist TRIMETHOPRIM 12/30/2018 11 - Vomiting LEVOFLOXACIN 12/30/2018 8 - GI Upset Date Reviewed: 2024 Reviewed by: Leisa Lopez LPN - Fully Assessed Reason for Visit: vaginal itching [Other] Visit Diagnoses:Pruritus vulvae [L29.2] Postmenopausal atrophic vaginitis [N95.2] Order(s):nystatin-triamcinol one (MYCOLOG) ointmentApply 1 application to affected area two times a day. Apply sparingly to perineum twice daily for irritation/infection.Disp: 30 gRfl: 0 fluconazole (DIFLUCAN) 150 mg tabletTake 1 tablet by mouth once daily for 1 day.Disp: 1 tabletRfl: 0 Prescriptions as of 2024 - nystatin-triamcinolone (MYCOLOG) ointment Apply 1 application to affected area two times a day. Apply sparingly to perineum twice daily for irritation/infection. - fluconazole (DIFLUCAN) 150 mg tablet Take 1 tablet by mouth once daily for 1 day. - iv contrast (will be provided with radiology test) MRI Brain Inject, intravenously, once for 1 dose.No (more content not included)... Normal [facility] CNOVon 08-31-2024 CNOV Office Visit (NEAGCL M) FANNIE AVALOS ([id number]) 1945 F Date Time Provider Department 08/31/24 11:00 AM BERNABE COX NEAGCLM During your visit today, we recorded the following information about you: Pulse Respiration Blood pressure Weight 70/minute 16/minute 112/71 61.1 kg Height 1.6 m Bernabe Cox MD 08/31/2024 10:54 AM Signed NEUROSURGERY FOLLOW UP OFFICE NOTE Dr. Bernabe Cox MD, FACS Date of visit: August 31, 2024 Patient Name: Ms.Marjorie Arielle Avalos Date of : 1945 Current Age: [age] year old Sex: female MRN/E# [id number] Last Office Visit: September 30, 2023 CHIEF COMPLAINT: Patient presents with: Established Patient SUBJECTIVE: The patient presents as a follow-up with imaging (MRI B) for evaluation. This is an 78-year-old female with a PMHx of intracranial meningioma diagnosed in September 2017 after experiencing episodes of visual changes. Given the symptoms MRI was obtained and demonstrated a left parasagittal meningioma for which no surgical intervention was indicated. She followed with Dr. Lindsey until 2021 imaging demonstrated an increase in size. She was referred for possible gamma knife treatment. She was seen for consult in August 2021 and reported intermittent episodes of right sided head pain but denied any significant headache. MRI was reviewed and compared to prior imaging. This showed a 6-7 mm increase from 2017 to 2021. Treatment options were discussed including open craniotomy with resection or gamma knife. Her case was discussed with the tumor board and radiation oncology who proposed that gamma knife could be provided in divided fractions which she agreed to. This was completed as noted below in 3 sessions. Since then she has been seen routinely for evaluation with imaging and has overall done well. She was last seen in the office in September 2023 for reported that she was overall doing well. She denied any significant issues with the exception of mild numbness to the right hand especially when sleeping. She denied any weakness to the hand. Neurologically she was intact on exam without focal deficit. MRI was reviewed and showed no evidence of change in size or configuration. Recommendation was to follow-up in 1 year with repeat MRI prompting her visit today. Since last visit she states she is overall doing well. She denies headache, visual changes, speech deficits, seizure activity, motor or sensory deficits. She presents for image review, evaluation and plan of care. SYMPTOMS: None PREVIOUS CONSERVATIVE TREATMENTS: None SURGICAL RISK: Smoker: Never Diabetic: No Anticoagulants / Antiplatelets: ASA 81 mg Occupation: N/A PREVIOUS NEUROSURGERY: SURGERY #1: Gamma Knife Stereotactic Radiosurgery for a meningioma on 01/15/[address] Cox. 1. Left parietal falx 1 of 3 SURGERY #2: Gamma Knife Stereotactic Radiosurgery for a meningioma on 01/29/[address] Cox. 1. Left parietal falx 2 of 3 SURGERY#3: Gamma Knife Stereotactic Radiosurgery for a meningioma on 02/12/[address] Cox. 1. Left parietal falx 3 of 3 PAIN EVALUATION No data found in the last 1 encounters. 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 CERVICAL SPONDYLOSIS 02/26/2005 Diarrhea Diverticulosis of colon 01/06/2009 Esophageal reflux Hemorrhage of rectum and anus 12/02/2017 HEMORRHOIDS NOS 11/30/2008 HYPERLIPIDEMIA NEC/NOS 03/18/2005 IBS (irritable bowel syndrome) 01/26/2013 Incontinence of feces 11/30/2008 Incontinence of feces 03/09/2021 Nausea vomiting and diarrhea 04/06/2024 Osteopenia Palpitations 01/13/2012 Perforation of large intestine (HCC) 12/03/2017 Primary osteoarthritis of left hip 03/01/2024 Spondylosis, 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 TIA (transient ischemic attack) 06/17/2017 [place], [place] PAST SURGICAL HISTORY Procedure Laterality Date CHOLECYSTECTOMY HX 03/2018 COLONOSCOPY FLX DX W/COLLJ SPEC WHEN PFRMD 10/20/2003 Colonoscopy COLONOSCOPY FLX DX W/COLLJ SPEC WHEN PFRMD 01/06/2009 Extensive diverticulosis/hemorrhoids COLONOSCOPY FLX DX W/COLLJ SPEC WHEN PFRMD 07/24/2012 [place] COLSC FLEXIBLE W/CONTROL BLEEDING ANY METHOD 12/02/2017 laser of cecal AVM DRAIN ABDOMINAL ABSCESS, PERCUTANEOUS 12/15/2017 perianastomotic abscess EGD 12/02/2017 ESOPHAGOGASTRODUODENOSCOPY TRANSORAL DIAGNOSTIC 07/03/2012 [place] GAMMA KNIFE 1FX TX DELIVERY 02/12/2022 x 3 on 01/15/22; 01/29/22; 02/12/22 HEMORRHOIDECTOMY INT AND XTRNL 2/> COLUMN/HI 10/26/2009 LAMINECTOMY W/RMVL ABNORMAL FACETS LUMBAR 07/08/2011 [place], [place] LAPAROSCOPY COLECTOMY PARTIAL W/ANASTOMOSIS 02/02 (more content not included)... Normal [facility] MRI BRAIN WO/W IVCONon 08-27 MRI BRAIN WO/W IVCON * * *Final Report* * * DATE OF EXAM: Aug 27 2024 11:49AM LDM [id number] - MRI BRAIN WO/W IVCON / PROCEDURE REASON: Benign meningioma of brain (HCC) * * * * Physician Interpretation * * * * EXAMINATION: MRI BRAIN WO/W IVCON CLINICAL HISTORY: Meningioma. Evaluate stability. TECHNIQUE: Routine brain MRI protocol without and with contrast including diffusion images. MQ: [id number] Contrast: 15 mL Dotarem intravenous COMPARISON: 09/24/2023 RESULT: Acute Change: There is no evidence of an acute intracranial process. Hemorrhage: No evidence of prior parenchymal hemorrhage on the gradient echo images. Mass Lesion/ Mass Effect: Again noted is dural based extra-axial soft tissue mass along the falx along the margins of the left SMA region and subjacent cingulate gyrus which is mildly hyperintense on FLAIR and T2, isointense on T1, and uniformly enhances following gadolinium administration compatible with the history of a meningioma. Overall, this mass measures approximately 2.3 x 2.1 x 2.9 cm in greatest AP, transverse, and CC dimensions, respectively. When compared to the prior study, this is not significantly changed in size, configuration or signal intensity characteristics. There continues to be moderate compression of the adjacent parenchyma and moderate compression of the underlying body of the left lateral ventricle without entrapment of the left temporal and occipital horns. There is no evidence of an intracranial mass elsewhere. No abnormal parenchymal or leptomeningeal enhancement is appreciated otherwise following gadolinium administration. Chronic Change: Scattered small patchy and punctate foci of hyperintensity are again noted in the supratentorial white matter on FLAIR and T2 which are nonspecific but likely represent mild chronic microvascular ischemia in view of the patient's chronologic age. Small remote lacunar infarcts are again noted in the extreme capsules. Parenchyma: Again noted is mild generalized volume loss which is accentuated the temporal lobes. No significant change. The brain parenchyma is otherwise within normal limits of signal intensity and morphology. Ventricles: Mild enlargement of lateral and third ventricles commensurate with volume loss as outlined above. No significant change in size or configuration. Skull Base: Hypothalamic and pituitary region are grossly normal. Craniocervical junction is normal. No significant marrow replacement process. Vasculature: Major intracranial arterial structures, and dural venous sinuses show typical flow void, suggesting patency by spin echo criteria. Other: Incidental note is made of bilateral cataract surgery. IMPRESSION: Stable appearance of the brain since 09/24/2023. Stable left parafalcine meningioma with moderate localized mass effect. Addiction Medicine Physician: PSCB Transcribe Date/Time: Aug 29 2024 6:45A Dictated by : GARRICK LEONARD MD This examination was interpreted and the report reviewed and electronically signed by: GARRICK LEONARD MD on Aug 29 2024 6:51AM EST [id number] Normal [facility] CNOVon 08-03-2024 CNOV Office Visit (PODIWS ) FANNIE AVALOS ([id number]) 1945 F Date Time Provider Department 08/03/24 3:00 PM OUMAR FRANK During your visit today, we recorded the following information about you: Arely Beth, FOREIGN 08/03/2024 10:10 PM Signed Patient presents with: Right Foot - Established Patient, Pain, Swelling Patient presents for right great toe pain and swelling that has been ongoing for 5 months. States that she has some pain at night with sheets to the top of the foot. Started wearing shoes with more cushion which helps. Xray prior to appointment. PATITO 11/13/21 Oumar Frank 08/03/2024 3:49 PM Addendum Powerstep Original Full length. Can purchase at [employer] and boots,shoes and more here in [place], [employer] in [employer] or [place]. Also can find in [place] in [facility]. Powersteps can also be purchased online, starting around $45.00 If you have a metatarsal or dancer pad for your feet apply the pad directly to the insole so you can interchange between your shoes. Find a shoe with a removable insole and take this out and replace with your powerstep insole. Always bring powersteps with you when shopping for shoes so that you can make sure that everything fits well together Consider dancer pad on the insert You have been diagnosed with sesamoiditis in your right foot. Use the new gel insert provided with a dancer pad to reduce pressure on the painful area. Start taking the oral steroid exactly as directed on the prescription from your [facility] pharmacy to help reduce inflammation. Continue wearing supportive, cushioned shoes (such as SAS, Hoka, Heredia, Asics, or New Balance) to relieve pressure on your foot. Monitor the small bluish mole on your left medial instep. If you notice any changes in its size, shape, or color, please consider having it evaluated by a commercial lines account executive. Oumar Frank 08/03/2024 10:10 PM Signed Subjective Bella is an 78-year-old female presenting for right foot pain. Right Foot Pain: - Pain in the right hallux and second toe, x5 months. - Pain is both dorsal and plantar, exacerbated by weight-bearing and alleviated by rest. - Intolerant to covers on the foot at night. - Pain is intermittent; trialed ibuprofen with uncertain efficacy. - Difficulty finding comfortable footwear; reports some relief with metatarsal pads. - Denies diabetes mellitus. Musculoskeletal: (+) right foot pain (involving right big toe, second toe, plantar and dorsal aspects) 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 CERVICAL SPONDYLOSIS 02/26/2005 Diarrhea Diverticulosis of colon 01/06/2009 Esophageal reflux Hemorrhage of rectum and anus 12/02/2017 HEMORRHOIDS NOS 11/30/2008 HYPERLIPIDEMIA NEC/NOS 03/18/2005 IBS (irritable bowel syndrome) 01/26/2013 Incontinence of feces 11/30/2008 Incontinence of feces 03/09/2021 Nausea vomiting and diarrhea 04/06/2024 Osteopenia Palpitations 01/13/2012 Perforation of large intestine (HCC) 12/03/2017 Primary osteoarthritis of left hip 03/01/2024 Spondylosis, 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 age 88 Blood Disease Father PE, post MVA, dec. 53yo Breast Cancer Sister Myositis Sister Inclusion Body Myositis None Sister Alzheimer's Disease Sister other (multiple myeloma) Brother ALLERGIES Allergen Reactions Bactrim [Sulfametho* GI Upset nausea Clindamycin Hcl GI Upset Flagyl [Metronidazo* GI Upset Gadolinium-Containi* Hives Gadolinium/Gadavist Trimethoprim Vomiting Levofloxacin GI Upset Outpatient Medications as of 08/03/2024 Medication Sig atorvastatin (LIPITOR) 40 mg tablet TAKE 1 TABLET EVERY DAY AT BEDTIME FOR CHOLESTEROL alendronate (FOSAMAX) 70 mg tablet Take 1 tablet by mouth one time a week. Take with a full glass of water, on an empty stomach; do NOT lie down for 30minutes. cetirizine (ZYRTEC) 10 mg tablet Take 10 mg by mouth as needed for cold/allergy symptoms. naproxen (NAPROSYN) 500 mg tablet Take 1 tablet by mouth two times a day with meals. (Patient taking differently: Take 500 mg by mouth two times a day with meals. PRN) fluticasone (FLONASE) 50 mcg/actuation nasal spray Use 2 Sprays in each nostril once daily. Rinse mouth after use. (Patient taking differently: Use 2 sprays in each nostril once daily. Rinse mouth after use. PRN) carvedilol (COREG) 3.125 mg tablet Take 3.125 mg by mouth two times a day with meals. Cholecalciferol, Vitamin D3, 25 mcg (1,000 unit) cap Take 1 capsu (more content not included)... Normal [facility] XR FOOT 3V AP/LAT/OBL RTon 0 08-03-2024 XR FOOT 3V AP/LAT/OBL RT * * *Final Report* * * DATE OF EXAM: Aug 03 2024 2:44PM WOX [id number] - XR FOOT 3V AP/LAT/OBL RT / PROCEDURE REASON: Pain * * * * Physician Interpretation * * * * EXAMINATION / TECHNIQUE: XR FOOT 3V AP/LAT/OBL RT HISTORY: pain for 4-5 months grt. and 2nd toe on top and on the bottom feels like she's walking on a cushion no inj Pain COMPARISON: 10/24/2021. RESULT: No acute fracture or dislocation. Mild scattered interphalangeal joint space narrowing. No osseous erosion. IMPRESSION: No acute bony abnormality. Addiction Medicine Physician: PSCB Transcribe Date/Time: Aug 09 2024 7:41A Dictated by : GUNNER SWARTZ MD This examination was interpreted and the report reviewed and electronically signed by: GUNNER SWARTZ MD on Aug 09 2024 7:42AM EST [id number] [facility] CNOVon 04-13-2024 CNOV Office Visit (INTMWS ) FANNIE AVALOS ([id number]) 1945 F Date Time Provider Department 04/13/24 9:20 AM CATINA REDDY INTMWS During your visit today, we recorded the following information about you: Pulse Blood pressure Weight 81/minute 118/60 61.3 kg Catina Reddy, SENIOR GAMES TECHNICIAN.[facility] 04/13/2024 10:06 AM Signed Transitional Care Management Progress Note The patients TCM visit was performed within the 7 days of discharge. Patient's Date of discharge: 04/11/24 Date of initial coordinator contact after discharge: 04/12/24 Discharge diagnosis: ileus Medication review completed Yes Provider Documentation: CC: Patient presents with: Transition Of Care: [facility] discharged on 04/11/24. Partial small bowel obstruction. No surgery Denies pain but is questioning symptoms of indigestion HPI Fannie Avalos is a 78 year old female who presents today for above. Admitted to [facility] 04/06 to 04/11 for SBO vs ileus. She presented to the ER on 04/06/2024 with a complaint of nausea, vomiting, diarrhea and abdominal pain which started the night before. CT abdomen and pelvis showed nonspecific nondistended fluid-filled loops of small bowel no abnormal wall thickening likely secondary to adynamic ileus however partial SBO cannot be ruled out. Patient was seen by general surgery but did not have any surgical needs. Evaluated by GI and started on started on cholestyramine and metamucil which were continued at discharge. Patient reports she is feeling better but still fatigued. Appetite has improved somewhat. Denies abdominal pain, nausea, vomiting, diarrhea, constipation, black/bloody stools, bloating. She is passing gas. She has not yet filled the cholestyramine because it was not in stock at her pharmacy. She is taking Benefiber that she already had at home instead of the Metamucil. She did have heartburn last night but wasn't sure if she could take TUMS and it resolved on its own. She is wondering if some of her symptoms were due to a stomach bug as both her and son developed similar symptoms but not as severe. Review of Systems Constitutional: Positive for appetite change and fatigue. Negative for chills, diaphoresis, fever and unexpected weight change. Respiratory: Negative for cough, shortness of breath and wheezing. Neurological: Negative for dizziness, syncope, weakness, light-headedness and headaches. 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 CERVICAL SPONDYLOSIS 02/26/2005 Diarrhea Diverticulosis of colon 01/06/2009 Esophageal reflux Hemorrhage of rectum and anus 12/02/2017 HEMORRHOIDS NOS 11/30/2008 HYPERLIPIDEMIA NEC/NOS 03/18/2005 IBS (irritable bowel syndrome) 01/26/2013 Incontinence of feces 11/30/2008 Incontinence of feces 03/09/2021 Nausea vomiting and diarrhea 04/06/2024 Osteopenia Palpitations 01/13/2012 Perforation of large intestine (HCC) 12/03/2017 Primary osteoarthritis of left hip 03/01/2024 Spondylosis, 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 TIA (transient ischemic attack) 06/17/2017 [place], [place] PAST SURGICAL HISTORY Procedure Laterality Date CHOLECYSTECTOMY HX 03/2018 COLONOSCOPY FLX DX W/COLLJ SPEC WHEN PFRMD 10/20/2003 Colonoscopy COLONOSCOPY FLX DX W/COLLJ SPEC WHEN PFRMD 01/06/2009 Extensive diverticulosis/hemorrhoids COLONOSCOPY FLX DX W/COLLJ SPEC WHEN PFRMD 07/24/2012 [place] COLSC FLEXIBLE W/CONTROL BLEEDING ANY METHOD 12/02/2017 laser of cecal AVM DRAIN ABDOMINAL ABSCESS, PERCUTANEOUS 12/15/2017 perianastomotic abscess EGD 12/02/2017 ESOPHAGOGASTRODUODENOSCOPY TRANSORAL DIAGNOSTIC 07/03/2012 [place] GAMMA KNIFE 1FX TX DELIVERY 02/12/2022 x 3 on 01/15/22; 01/29/22; 02/12/22 HEMORRHOIDECTOMY INT AND XTRNL 2/> COLUMN/HI 10/26/2009 LAMINECTOMY W/RMVL ABNORMAL FACETS LUMBAR 07/08/2011 [place], [place] LAPAROSCOPY COLECTOMY PARTIAL W/ANASTOMOSIS 02/02/2009 LAPAROSCOPY COLECTOMY PARTIAL W/ANASTOMOSIS Right 12/03/2017 LAPS MOBLJ SPLENIC FLXR PFRMD W/PRTL COLECTOMY 02/02/2009 PAST SURGICAL HISTORY OF 1964 ovarian cyst removed PAST SURGICAL HISTORY OF 2001 BREAST BIOPSY--BENIGN PAST SURGICAL HISTORY OF 03/28/2018 Gallbladder removed SIGMOIDOSCOPY FLX CONTROL BLEEDING 03/22/2009 Granulation tissue at anastomosis SIGMOIDOSCOPY FLX W/BIOPSY SINGLE/MULTIPLE 02/28/2011 TOTAL ABDOMINAL HYSTERECT W/WO RMVL TUBE OVARY 02/1990 Hysterectomy, TERI, BSO ALLERGIES Bactrim [Sulfamethoxazole-Trimethopr im], Clindamycin Hcl, Flagyl [Metronidazole Hcl], Gadolinium-Containing Contrast Media, Trimethoprim, and Levofloxacin MEDICATIONS lactobacillus rhamnosu (more content not included)... Normal [facility] Basic metabolic 2000 panelon 04-11-2024 Anion gap [Moles/Vol] 7 mmol/L Low 8-15 [facility] Comment on above: Order Comment: Speci men Type: BLOOD SPECIMENOrdering Facility: [facility] Address: [address] [place] [address] Performed By: #### 2 4321-2 ####PACK LABORATORYCLIA [id number] [place] [address] [place] Calcium [Mass/Vol] 8.5 mg/dL Normal 8.5-10.2 [facility] Comment on above: Order Comment: Speci men Type: BLOOD SPECIMENOrdering Facility: [facility] Address: [address] [place] [address] Performed By: #### 2 4321-2 ####PACK LABORATORYCLIA [id number] [place] [address] [place] Chloride [Moles/Vol] 109 mmol/L High 98-107 [facility] Comment on above: Order Comment: Speci men Type: BLOOD SPECIMENOrdering Facility: [facility] Address: [address] [place] [address] Performed By: #### 2 4321-2 ####PACK LABORATORYCLIA [id number] [place] [address] [place] CO2 [Moles/Vol] 25 mmol/L Normal 22-30 [facility] Comment on above: Order Comment: Speci men Type: BLOOD SPECIMENOrdering Facility: [facility] Address: [address] [place] [address] Performed By: #### 2 4321-2 ####PACK LABORATORYCLIA [id number] [place] [address] [place] Creatinine [Mass/Vol] 0.55 mg/dL Low 0.58-0.96 [facility] Comment on above: Order Comment: Speci men Type: BLOOD SPECIMENOrdering Facility: [facility] Address: [address] [place] [address] Performed By: #### 2 4321-2 ####PACK LABORATORYCLIA [id number] [place] [address] [facility] [place] Creatinine and Glomerular filtration rate.predicted panel (S/P/Bld) 93 mL/min/1.73m??? Normal >=60 [facility] Comment on above: Order Comment: Randy sales Type: BLOOD SPECIMENOrdering Facility: [facility] Address: [address] [place] [address] Result Comment: Alysia mated Glomerular Filtration Rate (eGFR) is calculated using the 2020 CKD-EPI creatinine equation. This equation utilizes serum creatinine, sex, and age as parameters. The creatinine assay has traceable calibration to isotope dilution-mass spectrometry. Refer to KDIGO guidelines for clinical interpretation. In patients with unstable renal function, e.g. those with acute kidney injury, the eGFR may not accurately reflect actual GFR. Performed By: #### 2 4321-2 ####DUPONT LABORATORYCLIA [id number] [place] [address] [place] Glucose [Mass/Vol] 105 mg/dL High 74-99 [facility] Comment on above: Order Comment: Randy sales Type: BLOOD SPECIMENOrdering Facility: [facility] Address: [address] [place] [address] Result Comment: The [place] Diabetes Association (ADA) provides guidance for cutoff values for fasting glucose and random glucose. The ADA defines fasting as no caloric intake for at least 8 hours. Fasting plasma glucose results between 100 to 125 mg/dL indicate increased risk for diabetes (prediabetes). Fasting plasma glucose results greater than or equal to 126 mg/dL meet the criteria for diagnosis of diabetes. In the absence of unequivocal hyperglycemia, results should be confirmed by repeat testing. In a patient with classic symptoms of hyperglycemia or hyperglycemic crisis, random plasma glucose results greater than or equal to 200 mg/dL meet the criteria for diagnosis of diabetes. Reference: Standards of Medical Care in Diabetes 2016, [place] [employer] Association. Diabetes Care. 2016.39(Suppl 1). Performed By: #### 2 4321-2 ####DUPONT LABORATORYCLIA [id number] [place] [address] [place] Potassium [Moles/Vol] 3.8 mmol/L Normal 3.7-5.1 [facility] Comment on above: Order Comment: Randy sales Type: BLOOD SPECIMENOrdering Facility: [facility] Address: [address] [id number] Performed By: #### 2 4321-2 ####PACK LABORATORYCLIA [id number] [address] [place] Sodium [Moles/Vol] 141 mmol/L Normal 136-144 [facility] Comment on above: Order Comment: Speci men Type: BLOOD SPECIMENOrdering Facility: [facility] Address: [address] [place] [address] Performed By: #### 2 4321-2 ####PACK LABORATORYCLIA [id number] [place] [address] [place] Urea nitrogen [Mass/Vol] 11 mg/dL Normal 7-21 [facility] Comment on above: Order Comment: Speci men Type: BLOOD SPECIMENOrdering Facility: [facility] Address: [address] [place] [address] Performed By: #### 2 4321-2 ####PACK LABORATORYCLIA [id number] [address] [place] CBC panel Auto (Bld)on 04-11 Erythrocyte distribution width (RBC) [Ratio] 11.9 % Normal 11.5-15.0 [facility] Comment on above: Order Comment: Speci men Type: BLOOD SPECIMENOrdering Facility: [facility] Address: [address] [place] [address] Performed By: #### 5 8410-2 ####PACK LABORATORYCLIA [id number] [address] [place] Hematocrit (Bld) [Volume fraction] 33.7 % Low 36.0-46.0 [facility] Comment on above: Order Comment: Speci men Type: BLOOD SPECIMENOrdering Facility: [facility] Address: [address] [place] [address] Performed By: #### 5 8410-2 ####PACK LABORATORYCLIA [id number] [place] [address] [place] Hemoglobin (Bld) [Mass/Vol] 11.5 g/dL Normal 11.5-15.5 [facility] Comment on above: Order Comment: Speci men Type: BLOOD SPECIMENOrdering Facility: [facility] Address: [address] [place] [address] Performed By: #### 5 8410-2 ####PACK LABORATORYCLIA [id number] [address] MCH (RBC) [Entitic mass] 33.3 pg Normal 26.0-34.0 [facility] Comment on above: Order Comment: Speci men Type: BLOOD SPECIMENOrdering Facility: [facility] Address: [address] [place] [address] Performed By: #### 5 8410-2 ####PACK LABORATORYCLIA [id number] [address] MCHC (RBC) [Mass/Vol] 34.1 g/dL Normal 30.5-36.0 [facility] Comment on above: Order Comment: Speci men Type: BLOOD SPECIMENOrdering Facility: [facility] Address: [address] [place] [address] Performed By: #### 5 8410-2 ####PACK LABORATORYCLIA [id number] [address] MCV (RBC) [Entitic vol] 97.7 fL Normal 80.0-100.0 [facility] Comment on above: Order Comment: Speci men Type: BLOOD SPECIMENOrdering Facility: [facility] Address: [address] [place] [address] Performed By: #### 5 8410-2 ####PACK LABORATORYCLIA [id number] [address] Nucleated RBC (Bld) [#/Vol] 10*3/uL Normal <0.01 [facility] Comment on above: Order Comment: Speci men Type: BLOOD SPECIMENOrdering Facility: [facility] Address: [address] [place] [address] Performed By: #### 5 8410-2 ####PACK LABORATORYCLIA [id number] [address] Platelet mean volume (Bld) [Entitic vol] 10.0 fL Normal 9.0-12.7 [facility] Comment on above: Order Comment: Speci men Type: BLOOD SPECIMENOrdering Facility: [facility] Address: [address] [place], [place] [address] [address] Performed By: #### 5 8410-2 ####PACK LABORATORYCLIA [id number] [place] [id number] [facility] [place] Platelets (Bld) [#/Vol] 201 10*3/uL Normal 150-400 [facility] Comment on above: Order Comment: Speci men Type: BLOOD SPECIMENOrdering Facility: [facility] Address: [facility] [place] [address] Performed By: #### 5 8410-2 ####PACK LABORATORYCLIA [id number] [place] [address] [place] RBC (Bld) [#/Vol] 3.45 10*6/uL Low 3.90-5.20 [facility] Comment on above: Order Comment: Speci men Type: BLOOD SPECIMENOrdering Facility: [facility] Address: [facility] [place] [address] Performed By: #### 5 8410-2 ####PACK LABORATORYCLIA [id number] [address] [place] WBC (Bld) [#/Vol] 4.34 10*3/uL Normal 3.70-11.00 [facility] Comment on above: Order Comment: Speci men Type: BLOOD SPECIMENOrdering Facility: [facility] Address: [facility] [place] [address] Performed By: #### 5 8410-2 ####PACK LABORATORYCLIA [id number] [place] [id number] [facility] [place] Basic metabolic 2000 panelon 04-10-2024 Anion gap [Moles/Vol] 9 mmol/L Normal 8-15 [facility] Comment on above: Order Comment: Speci men Type: BLOOD SPECIMENOrdering Facility: [facility] Address: [facility] [place] [address] Performed By: #### 2 4321-2 ####PACK LABORATORYCLIA [id number] [place] [address] [place] Calcium [Mass/Vol] 8.2 mg/dL Low 8.5-10.2 [facility] Comment on above: Order Comment: Speci men Type: BLOOD SPECIMENOrdering Facility: [facility] Address: [address] [place] [address] Performed By: #### 2 4321-2 ####PACK LABORATORYCLIA [id number] [address] Chloride [Moles/Vol] 109 mmol/L High 98-107 [facility] Comment on above: Order Comment: Speci men Type: BLOOD SPECIMENOrdering Facility: [facility] Address: [address] [place] [address] Performed By: #### 2 4321-2 ####PACK LABORATORYCLIA [id number] [address] CO2 [Moles/Vol] 23 mmol/L Normal 22-30 [facility] Comment on above: Order Comment: Speci men Type: BLOOD SPECIMENOrdering Facility: [facility] Address: [address] [place] [address] Performed By: #### 2 4321-2 ####PACK LABORATORYCLIA [id number] [address] Creatinine [Mass/Vol] 0.61 mg/dL Normal 0.58-0.96 [facility] Comment on above: Order Comment: Speci men Type: BLOOD SPECIMENOrdering Facility: [facility] Address: [address] [place] [address] Performed By: #### 2 4321-2 ####PACK LABORATORYCLIA [id number] [address] Creatinine and Glomerular filtration rate.predicted panel (S/P/Bld) 91 mL/min/1.73m??? Normal >=60 [facility] Comment on above: Order Comment: Speci men Type: BLOOD SPECIMENOrdering Facility: [facility] Address: [address] [place] [address] Result Comment: Alysia mated Glomerular Filtration Rate (eGFR) is calculated using the 2020 CKD-EPI creatinine equation. This equation utilizes serum creatinine, sex, and age as parameters. The creatinine assay has traceable calibration to isotope dilution-mass spectrometry. Refer to KDIGO guidelines for clinical interpretation. In patients with unstable renal function, e.g. those with acute kidney injury, the eGFR may not accurately reflect actual GFR. Performed By: #### 2 4321-2 ####PACK LABORATORYCLIA [id number] [place] [address] [place] Glucose [Mass/Vol] 106 mg/dL High 74-99 [facility] Comment on above: Order Comment: Randy sales Type: BLOOD SPECIMENOrdering Facility: [facility] Address: [address] [place] [address] Result Comment: The [place] Diabetes Association (ADA) provides guidance for cutoff values for fasting glucose and random glucose. The ADA defines fasting as no caloric intake for at least 8 hours. Fasting plasma glucose results between 100 to 125 mg/dL indicate increased risk for diabetes (prediabetes). Fasting plasma glucose results greater than or equal to 126 mg/dL meet the criteria for diagnosis of diabetes. In the absence of unequivocal hyperglycemia, results should be confirmed by repeat testing. In a patient with classic symptoms of hyperglycemia or hyperglycemic crisis, random plasma glucose results greater than or equal to 200 mg/dL meet the criteria for diagnosis of diabetes. Reference: Standards of Medical Care in Diabetes 2016, [place] [employer] Association. Diabetes Care. 2016.39(Suppl 1). Performed By: #### 2 4321-2 ####PACK LABORATORYCLIA [id number] [place] [address] [place] Potassium [Moles/Vol] 3.8 mmol/L Normal 3.7-5.1 [facility] Comment on above: Order Comment: Randy sales Type: BLOOD SPECIMENOrdering Facility: [facility] Address: [address] [place] [address] Performed By: #### 2 4321-2 ####PACK LABORATORYCLIA [id number] [place] [address] [place] Sodium [Moles/Vol] 141 mmol/L Normal 136-144 [facility] Comment on above: Order Comment: Randy sales Type: BLOOD SPECIMENOrdering Facility: [facility] Address: [address] [place] [address] Performed By: #### 2 4321-2 ####PACK LABORATORYCLIA [id number] [address] [place] [facility] Urea nitrogen [Mass/Vol] 11 mg/dL Normal 7-21 [facility] Comment on above: Order Comment: Speci men Type: BLOOD SPECIMENOrdering Facility: [facility] Address: [address] [place] [address] Performed By: #### 2 4321-2 ####PACK LABORATORYCLIA [id number] [address] [place] CBC panel Auto (Bld)on 04-10 Erythrocyte distribution width (RBC) [Ratio] 11.9 % Normal 11.5-15.0 [facility] Comment on above: Order Comment: Speci men Type: BLOOD SPECIMENOrdering Facility: [facility] Address: [address] [place] [address] Performed By: #### 5 8410-2 ####PACK LABORATORYCLIA [id number] [address] [place] Hematocrit (Bld) [Volume fraction] 34.3 % Low 36.0-46.0 [facility] Comment on above: Order Comment: Speci men Type: BLOOD SPECIMENOrdering Facility: [facility] Address: [address] [place] [address] Performed By: #### 5 8410-2 ####PACK LABORATORYCLIA [id number] [address] [place] [facility] Hemoglobin (Bld) [Mass/Vol] 11.9 g/dL Normal 11.5-15.5 [facility] Comment on above: Order Comment: Speci men Type: BLOOD SPECIMENOrdering Facility: [facility] Address: [address] [place] [address] Performed By: #### 5 8410-2 ####PACK LABORATORYCLIA [id number] [address] [place] [facility] MCH (RBC) [Entitic mass] 33.2 pg Normal 26.0-34.0 [facility] Comment on above: Order Comment: Speci men Type: BLOOD SPECIMENOrdering Facility: [facility] Address: [address] [place] [address] Performed By: #### 5 8410-2 ####PACK LABORATORYCLIA [id number] [address] MCHC (RBC) [Mass/Vol] 34.7 g/dL Normal 30.5-36.0 [facility] Comment on above: Order Comment: Speci men Type: BLOOD SPECIMENOrdering Facility: [facility] Address: [address] [place] [address] Performed By: #### 5 8410-2 ####PACK LABORATORYCLIA [id number] [address] [place] MCV (RBC) [Entitic vol] 95.8 fL Normal 80.0-100.0 [facility] Comment on above: Order Comment: Speci men Type: BLOOD SPECIMENOrdering Facility: [facility] Address: [address] [place] [address] Performed By: #### 5 8410-2 ####PACK LABORATORYCLIA [id number] [address] Nucleated RBC (Bld) [#/Vol] 10*3/uL Normal <0.01 [facility] Comment on above: Order Comment: Speci men Type: BLOOD SPECIMENOrdering Facility: [facility] Address: [address] [place] [address] Performed By: #### 5 8410-2 ####PACK LABORATORYCLIA [id number] [address] [place] Platelet mean volume (Bld) [Entitic vol] 10.1 fL Normal 9.0-12.7 [facility] Comment on above: Order Comment: Speci men Type: BLOOD SPECIMENOrdering Facility: [facility] Address: [address] [place] [address] Performed By: #### 5 8410-2 ####PACK LABORATORYCLIA [id number] [address] Platelets (Bld) [#/Vol] 206 10*3/uL Normal 150-400 [facility] Comment on above: Order Comment: Speci men Type: BLOOD SPECIMENOrdering Facility: [facility] Address: [address] [id number] Performed By: #### 5 8410-2 ####PACK LABORATORYCLIA [id number] [place] [id number] [facility] RBC (Bld) [#/Vol] 3.58 10*6/uL Low 3.90-5.20 [facility] Comment on above: Order Comment: Speci men Type: BLOOD SPECIMENOrdering Facility: [facility] Address: [address] [place] [address] Performed By: #### 5 8410-2 ####PACK LABORATORYCLIA [id number] [place] [address] [facility] [place] WBC (Bld) [#/Vol] 4.37 10*3/uL Normal 3.70-11.00 [facility] Comment on above: Order Comment: Speci men Type: BLOOD SPECIMENOrdering Facility: [facility] Address: [address] [place] [address] Performed By: #### 5 8410-2 ####PACK LABORATORYCLIA [id number] [place] [id number] [facility] CNDSon 04-10-2024 CNDS HNO ID: [id number] Author: LORNA CONTRERAS MD Service: Hospital Medicine Author Type: Physician Type: Discharge Summary Filed: 04/24/2024 16:21 Note Text: DISCHARGE SUMMARY PATIENT NAME: Fannie Avalos ADMISSION DATE: 04/06/2024 DISCHARGE DATE: 04/11/2024 ATTENDING PHYSICIAN: Lorna Contreras MD Code Status: Full Code PCP: Gavin Tran MD Highest Readmission Risk Score: 9 The 30 day readmissions risk score is derived from an internally validated risk model which evaluates patient level characteristics, utilization history, medication orders and lab results up until the day of discharge. Patients with a score of 40 or above are considered highest risk for readmission. Specific patient level drivers will be listed at the bottom of the summary. TRANSITIONS OF CARE CRITICAL ISSUES: ZIMMERMAN MEDICATION CHANGES: Colesevelam 3.75 gram Pwpk Commonly known as: WELCHOL Take 1 Packet by mouth once daily. lactobacillus rhamnosus 10 billion cell capsule Commonly known as: CULTURELLE Take 1 capsule by mouth once daily. Start taking on: April 11, 2024 psyllium 3.4 gram packet Commonly known as: METAMUCIL Take 1 Packet by mouth two times a day. FOLLOW UP APPOINTMENTS: PCP, GI REASON FOR HOSPITALIZATION/PRINCIPAL DIAGNOSES: Diarrhea, N/V Abdominal pain HOSPITAL PROBLEMS: Principal Problem (Resolved): Partial small bowel obstruction (HCC) (POA: Yes) Active Problems: * No active hospital problems. * Resolved Problems: Diarrhea (POA: Yes) Nausea AND vomiting (POA: Yes) Abdominal pain (POA: Yes) Nausea vomiting and diarrhea (POA: Yes) HOSPITAL COURSE: Admission Information Admission Information ADMIT DATE: 04/06/2024 DISCHARGE DATE: 04/11/2024 MY DOCTORS AND MEDICAL TEAM: [facility] Doctor: Lorna Contreras MD Primary Care Provider: Gavin Tran MD My Medical Team Members: Treatment Team: Attending Provider: Lorna Contreras MD Consulting: Martha Gayle MD Consulting: Yesica Coronel MD MY CONDITION AT DISCHARGE: Stable REASON I WAS IN THE HOSPITAL: Diarrhea, n/v. SUMMARY OF WHAT HAPPENED WHILE I WAS IN THE HOSPITAL: Fannie Avalos is a 78 year old female presented with past medical history of HLD, OA, bowel perforation x 2 after colonoscopy presented to the ER on 04/06/2024 with a complaint of nausea, vomiting, diarrhea and abdominal pain which started last night. CT abdomen and pelvis showed nonspecific nondistended fluid-filled loops of small bowel no abnormal wall thickening likely secondary to adynamic ileus however partial SBO cannot be ruled out. Patient was seen by general surgery and then didn't have any surgical needs. Seen by GI and started on started on cholestyramine and metamucil. Advanced diet and no further nausea nor diarrhea. Outpatient follow up with PCP and GI. OTHER PROBLEMS/DIAGNOSIS: Principal Problem (Resolved): Partial small bowel obstruction (HCC) Active Problems: * No active hospital problems. * Resolved Problems: Diarrhea Nausea AND vomiting Abdominal pain Nausea vomiting and diarrhea OPERATIONS PERFORMED WHILE IN THE HOSPITAL: None IMPORTANT TEST/PROCEDURES: No procedures performed TEST RESULTS NOT AVAILABLE AT THIS TIME: No pending results Discharge Disposition Discharge Disposition: Home With Self Care Activity When You Leave the Hospital Resume pre-hospital activity Diet Instructions Resume your pre-hospital diet OPERATIONS/PROCEDURE DURING THIS HOSPITALIZATION: * No surgery found * CONSULTS DURING HOSPITALIZATION: Treatment Team: Attending Provider: Lorna Contreras MD Consulting: Martha Gayle MD Consulting: Yesica Coronel MD PATIENT CONDITION AT DISCHARGE: Stable DISCHARGE DISPOSITION: Home with Self Care Discharge Physical Exam: VITAL SIGNS: Blood Pressure 120/57 Pulse 82 Temperature 36.5 ?C (97.7 ?F) (Oral) Respiration 18 Height 160 cm (5' 3) Weight 61.5 kg (135 lb 9.3 oz) Oxygen Saturation 97% Body Mass Index 24.02 kg/m? GENERAL: Alert, no distress, cooperative SKIN: Skin color, texture, turgor normal. No rashes or lesions. HEAD/SINUSES: No significant findings EYES: PERRLA, EOMI LUNGS: Lungs clear to auscultation, Good diaphragmatic excursion CARDIAC: Normal S1 and S2; no rubs, murmurs, or gallops ABDOMEN: Abdomen soft, non-tender, BS normal, No masses or organomegaly EXTREMITIES: Extremities normal, no deformities, edema, clubbing or skin discoloration. Good capillary refill., No ulcers NEURO: Cranial nerves II-XII intact PULSES: 2+ radial, 2+ carotid WOUND/SURGICAL SITE CARE: None SUPPLIES OR EQUIPMENT: None DIET: Resume pre-hospital diet ACTIVITY AND EXERCISE: Resume pre-hospital activity FOLLOW UP APPOINTMENTS: Future Appointments Date Time Provider Department Center 09/28/2024 8:40 AM Gavin Tran MD [facility] ALLERGIES Allergen Reactions Bactrim [Sulfame (more content not included)... Normal [facility] CONSULT PROGon 04-10-2024 CONSULT PROG HNO ID: [id number] Author: JOANNE MAGALLON MD Service: ? Author Type: Physician Type: Consult Progress Note Filed: 04/10/2024 21:37 Note Text: GASTROENTEROLOGY CONSULT PROGRESS NOTE Patient Name: Fannie Avalos SERVICE DATE: April 10, 2024 SERVICE TIME: 9:36 PM INTERVAL HPI: improved gi status N/v/d have all resolved Pt feels much better No present gi complaints PHYSICAL EXAM: Patient Vitals for the past 24 hrs: BP Temp Temp src Pulse Resp SpO2 04/10/24 0853 120/57 36.5 ?C (97.7 ?F) Oral 82 18 97 % 04/10/24 0100 (!) 126/47 36.4 ?C (97.5 ?F) Oral 73 16 97 % Body mass index is 24.02 kg/m?. GENERAL:NAD EYES: No pallor. No scleral icterus LUNGS: Clear to auscultation. CARDIAC: RRR ABDOMEN: Soft, non distended. Non tender. No palpable mass or hepatosplenomegaly. Bowel sounds normal. No ascites. No guarding or rebound tenderness. DATA: CBC, Coags, BMP, Mg, Phos Recent Labs 04/10/24 0555 04/09/24 0517 04/08/24 0453 WBC 4.37 5.35 3.77 HB 11.9 12.5 13.1 HCT 34.3* 36.4 38.8 PLT 206 201 176 NA 141 138 139 K 3.8 3.7 3.9 CHLOR 109* 109* 102 CO2 23 21* 22 BUN 11 11 16 CREAT 0.61 0.54* 0.52* GLUC 106* 92 74 CA 8.2* 8.0* 7.7* Liver Function, Amylase, AND Lipase MEDICATIONS: Current Facility-Administered Medications Medication Dose Route Frequency NaCl 0.9% iv flush bag 20 mL INTRAVENOUS PRN ondansetron orally disintegrating 4 mg tab(s) (ZOFRAN ODT) 4 mg ORAL q 6 H PRN atorvastatin 40 mg tab(s) (LIPITOR) 40 mg ORAL AT BEDTIME carvedilol 3.125 mg tab(s) (COREG) 3.125 mg ORAL BID w MEALS potassium chloride ER 40 mEq tab(s) (KLOR-CON) 40 mEq ORAL DAILY super butt paste TOPICAL PRN psyllium 1 Packet (METAMUCIL) 1 Packet ORAL BID lactobacillus rhamnosus 10 billion cell (CULTURELLE) capsule 1 capsule ORAL DAILY cholestyramine 4 g packet (QUESTRAN) 4 g ORAL BID w MEALS ASSESSMENT:resolved n/v/d; precise cause unknown, must consider viral PLAN: close clinical obs Advance diet SIGNATURE: Joanne Magallon MD DATE: April 10, 2024 TIME: 9:36 PM Normal [facility] Basic metabolic 2000 panelon 12-20-2024 Anion gap [Moles/Vol] 8 mmol/L Normal 8-15 [facility] Comment on above: Order Comment: Speci men Type: BLOOD SPECIMENOrdering Facility: [facility] Address: [address] [place] [address] Performed By: #### 2 4321-2 ####PACK LABORATORYCLIA [id number] [place] [address] [place] Calcium [Mass/Vol] 8.0 mg/dL Low 8.5-10.2 [facility] Comment on above: Order Comment: Speci men Type: BLOOD SPECIMENOrdering Facility: [facility] Address: [address] [place] [address] Performed By: #### 2 4321-2 ####PACK LABORATORYCLIA [id number] [place] [address] [place] Chloride [Moles/Vol] 109 mmol/L High 98-107 [facility] Comment on above: Order Comment: Speci men Type: BLOOD SPECIMENOrdering Facility: [facility] Address: [address] [place] [address] Performed By: #### 2 4321-2 ####PACK LABORATORYCLIA [id number] [place] [address] [place] CO2 [Moles/Vol] 21 mmol/L Low 22-30 [facility] Comment on above: Order Comment: Speci men Type: BLOOD SPECIMENOrdering Facility: [facility] Address: [address] [place] [address] Performed By: #### 2 4321-2 ####PACK LABORATORYCLIA [id number] [place] [address] [place] Creatinine [Mass/Vol] 0.54 mg/dL Low 0.58-0.96 [facility] Comment on above: Order Comment: Speci men Type: BLOOD SPECIMENOrdering Facility: [facility] Address: [address] [place] [address] Performed By: #### 2 4321-2 ####PACK LABORATORYCLIA [id number] [place] [address] [place] Creatinine and Glomerular filtration rate.predicted panel (S/P/Bld) 93 mL/min/1.73m??? Normal >=60 [facility] Comment on above: Order Comment: Randy sales Type: BLOOD SPECIMENOrdering Facility: [facility] Address: [address] [place] [address] Result Comment: Alysia mated Glomerular Filtration Rate (eGFR) is calculated using the 2020 CKD-EPI creatinine equation. This equation utilizes serum creatinine, sex, and age as parameters. The creatinine assay has traceable calibration to isotope dilution-mass spectrometry. Refer to KDIGO guidelines for clinical interpretation. In patients with unstable renal function, e.g. those with acute kidney injury, the eGFR may not accurately reflect actual GFR. Performed By: #### 2 4321-2 ####DUPONT LABORATORYCLIA [id number] [place] [id number] [place] Glucose [Mass/Vol] 92 mg/dL Normal 74-99 [facility] Comment on above: Order Comment: Randy sales Type: BLOOD SPECIMENOrdering Facility: [facility] Address: [address] [place] [address] Result Comment: The [place] Diabetes Association (ADA) provides guidance for cutoff values for fasting glucose and random glucose. The ADA defines fasting as no caloric intake for at least 8 hours. Fasting plasma glucose results between 100 to 125 mg/dL indicate increased risk for diabetes (prediabetes). Fasting plasma glucose results greater than or equal to 126 mg/dL meet the criteria for diagnosis of diabetes. In the absence of unequivocal hyperglycemia, results should be confirmed by repeat testing. In a patient with classic symptoms of hyperglycemia or hyperglycemic crisis, random plasma glucose results greater than or equal to 200 mg/dL meet the criteria for diagnosis of diabetes. Reference: Standards of Medical Care in Diabetes 2016, [place] [employer]. Diabetes Care. 2016.39(Suppl 1). Performed By: #### 2 4321-2 ####DUPONT LABORATORYCLIA [id number] [place] [address] [place] Potassium [Moles/Vol] 3.7 mmol/L Normal 3.7-5.1 [facility] Comment on above: Order Comment: Randy sales Type: BLOOD SPECIMENOrdering Facility: [facility] Address: [address] [place] [id number] Performed By: #### 2 4321-2 ####PACK LABORATORYCLIA [id number] [address] Sodium [Moles/Vol] 138 mmol/L Normal 136-144 [facility] Comment on above: Order Comment: Speci men Type: BLOOD SPECIMENOrdering Facility: [facility] Address: [address] [place] [address] Performed By: #### 2 4321-2 ####PACK LABORATORYCLIA [id number] [address] Urea nitrogen [Mass/Vol] 11 mg/dL Normal 7-21 [facility] Comment on above: Order Comment: Speci men Type: BLOOD SPECIMENOrdering Facility: [facility] Address: [address] [place] [address] Performed By: #### 2 4321-2 ####PACK LABORATORYCLIA [id number] [address] CASE MANAGEMon 04-09-2024 CASE MANAGEM HNO ID: [id number] Author: MUNIRA KO RN Service: ? Author Type: Registered Nurse Type: Care Mgt Progress Note Filed: 04/09/2024 13:38 Note Text: CARE MANAGEMENT PROGRESS NOTE SERVICE DATE: 04/09/2024 SERVICE TIME: 1:36 PM LOS: 2 days Needs Prior to Discharge: To Be Determined EMR reviewed. Patient with Ileus vs SBO. General Surgery and GI following. Slowly advancing diet. No plans for surgical intervention. Patient is from home with spouse. IPTA. Anticipate patient will discharge home with no skilled needs when medically ready. Family to provide transport. CM will follow. SIGNATURE: Munira Ko RN PATIENT NAME: Fannie Avalos DATE: April 09, 2024 TIME: 1:36 PM Normal [facility] CBC panel Auto (Bld)on 04-09 Erythrocyte distribution width (RBC) [Ratio] 11.9 % Normal 11.5-15.0 [facility] Comment on above: Order Comment: Speci men Type: BLOOD SPECIMENOrdering Facility: [facility] Address: [address] [place] [address] Performed By: #### 5 8410-2 ####PACK LABORATORYCLIA [id number] [address] Hematocrit (Bld) [Volume fraction] 36.4 % Normal 36.0-46.0 [facility] Comment on above: Order Comment: Speci men Type: BLOOD SPECIMENOrdering Facility: [facility] Address: [address] [place] [address] Performed By: #### 5 8410-2 ####PACK LABORATORYCLIA [id number] [address] Hemoglobin (Bld) [Mass/Vol] 12.5 g/dL Normal 11.5-15.5 [facility] Comment on above: Order Comment: Speci men Type: BLOOD SPECIMENOrdering Facility: [facility] Address: [address] [place] [address] Performed By: #### 5 8410-2 ####PACK LABORATORYCLIA [id number] [address] MCH (RBC) [Entitic mass] 33.3 pg Normal 26.0-34.0 [facility] Comment on above: Order Comment: Speci men Type: BLOOD SPECIMENOrdering Facility: [facility] Address: [address] [place] [address] Performed By: #### 5 8410-2 ####PACK LABORATORYCLIA [id number] [address] MCHC (RBC) [Mass/Vol] 34.3 g/dL Normal 30.5-36.0 [facility] Comment on above: Order Comment: Speci men Type: BLOOD SPECIMENOrdering Facility: [facility] Address: [address] [place] [address] Performed By: #### 5 8410-2 ####PACK LABORATORYCLIA [id number] [address] MCV (RBC) [Entitic vol] 97.1 fL Normal 80.0-100.0 [facility] Comment on above: Order Comment: Speci men Type: BLOOD SPECIMENOrdering Facility: [facility] Address: [address] [place] [address] Performed By: #### 5 8410-2 ####PACK LABORATORYCLIA [id number] [place] [address] [place] Nucleated RBC (Bld) [#/Vol] 10*3/uL Normal <0.01 [facility] Comment on above: Order Comment: Speci men Type: BLOOD SPECIMENOrdering Facility: [facility] Address: [address] [place] [address] Performed By: #### 5 8410-2 ####PACK LABORATORYCLIA [id number] [place] [address] [place] Platelet mean volume (Bld) [Entitic vol] 10.0 fL Normal 9.0-12.7 [facility] Comment on above: Order Comment: Speci men Type: BLOOD SPECIMENOrdering Facility: [facility] Address: [address] [place] [address] Performed By: #### 5 8410-2 ####PACK LABORATORYCLIA [id number] [place] [address] [place] Platelets (Bld) [#/Vol] 201 10*3/uL Normal 150-400 [facility] Comment on above: Order Comment: Speci men Type: BLOOD SPECIMENOrdering Facility: [facility] Address: [address] [place] [address] Performed By: #### 5 8410-2 ####PACK LABORATORYCLIA [id number] [place] [address] [place] RBC (Bld) [#/Vol] 3.75 10*6/uL Low 3.90-5.20 [facility] Comment on above: Order Comment: Speci men Type: BLOOD SPECIMENOrdering Facility: [facility] Address: [address] [place] [address] Performed By: #### 5 8410-2 ####PACK LABORATORYCLIA [id number] [place] [address] [place] WBC (Bld) [#/Vol] 5.35 10*3/uL Normal 3.70-11.00 [facility] Comment on above: Order Comment: Speci men Type: BLOOD SPECIMENOrdering Facility: [facility] Address: [address] [place] [address] Performed By: #### 5 8410-2 ####PACK LABORATORYCLIA [id number] [place] [address] [place] CONSULT PROGon 04-09-2024 CONSULT PROG HNO ID: [id number] Author: JOANNE MAGALLON MD Service: Gastroenterology Author Type: Physician Type: Consult Progress Note Filed: 04/10/2024 07:24 Note Text: GASTROENTEROLOGY CONSULT PROGRESS NOTE Patient Name: Fannie Avalos SERVICE DATE: April 09, 2024 SERVICE TIME: 12:29 PM ASSESSMENT Acute diarrhea- DDx: suspected gastroenteritis but other considerations include partial SBO due adhesions, overflow diarrhea due to sigmoid and anal strictures, microscopic colitis Ileus vs partial SBO on CT Hx constipation Recto-sigmoid stricture Anal stricture Hx left hemicolectomy d/t perforation secondary to colonoscopy in 2008 and right sided colon resection 2/2 perforation 2/2 colonoscopy in 11/2017 Osteoporosis, HPL PLAN - F/U expanded stool panel - Stool log - Add Questran 4 g BID - Metamucil 1 serving BID (04/08) - Culturelle 1 cap po daily (04/08) - Follow surgical recommendations: may need to consider surgical intervention for #4 - GI soft diet - Daily CBC, BMP - Consider flex sig if no improvement - Attempt to obtain pathology from most recent EGD (04/01/23) and colonoscopy (04/22/2023) from [facility] - Further recommendations pending clinical course and results of above evaluation INTERVAL HPI: States he has now developed watery diarrhea and n/v overnight. She reports continued multiple watery stools. No abdominal pain or further nausea or vomiting. Expanded GI panel is pending, FL positive otherwise remaining stool studies are negative. Labs unremarkable. PHYSICAL EXAM: Patient Vitals for the past 24 hrs: BP Temp Temp src Pulse Resp SpO2 04/09/24 0754 136/64 36.8 ?C (98.3 ?F) Oral 100 16 98 % 04/08/24 2107 118/88 36.7 ?C (98.1 ?F) Oral 75 17 100 % 04/08/24 1535 (!) 116/47 36.8 ?C (98.2 ?F) Oral 72 14 98 % GENERAL: Alert AND oriented x 3. Cooperative. NAD EYES: No scleral icterus SKIN: [place] in color. No jaundice LUNGS: Clear to auscultation anteriorly CARDIAC: RRR ABDOMEN: BS x 4. Abdomen soft, non distended. Tender LLQ. No palpable masses or organomegaly. No guarding or rebound tenderness elicited. Extensive abdominal scaring EXTREMITIES: No upper or lower extremity edema LABS: CBC, Coags, BMP, Mg, Phos Recent Labs 04/09/24 0517 04/08/24 0453 04/07/24 0451 04/06/24 1743 WBC 5.35 3.77 2.82* -- HB 12.5 13.1 11.3* -- HCT 36.4 38.8 34.0* -- PLT 201 176 147* -- NA 138 139 138 -- K 3.7 3.9 3.6* -- CHLOR 109* 102 105 -- CO2 21* 22 22 -- BUN 11 16 25* -- CREAT 0.54* 0.52* 0.56* -- GLUC 92 74 92 -- CA 8.0* 7.7* 7.5* -- MG -- -- -- 1.8 P -- -- -- 2.4* Liver Function, Amylase, AND Lipase MEDICATIONS: Current Facility-Administered Medications Medication Dose Route Frequency NaCl 0.9% iv flush bag 20 mL INTRAVENOUS PRN ondansetron orally disintegrating 4 mg tab(s) (ZOFRAN ODT) 4 mg ORAL q 6 H PRN atorvastatin 40 mg tab(s) (LIPITOR) 40 mg ORAL AT BEDTIME carvedilol 3.125 mg tab(s) (COREG) 3.125 mg ORAL BID w MEALS potassium chloride ER 40 mEq tab(s) (KLOR-CON) 40 mEq ORAL DAILY super butt paste TOPICAL PRN psyllium 1 Packet (METAMUCIL) 1 Packet ORAL BID lactobacillus rhamnosus 10 billion cell (CULTURELLE) capsule 1 capsule ORAL DAILY MISC LABS Latest Ref Rng 04/06/2024 04/07/2024 Color Yellow Yellow Clarity Clear Clear Glucose, Urine Negative Negative Bilirubin, Urine Negative Negative Ketones, Urine Negative 2+ ! Specific [place], Ur 1.005 - 1.030 1.020 Hemoglobin/Blood,Ur Negative 1+ ! pH, Urine 5.0 - 8.0 6.0 Protein, Urine Negative Negative Urobilinogen 0.2-1.0 EU/dL 0.2 EU/dL Nitrites Negative Negative Leukest Negative Trace ! WBC, Urine 0-5 /HPF 0-5 /HPF RBC, Urine 0-3 /HPF 0-3 /HPF Epithelial Cells /HPF Few Campylobacter jejuni/coli DNA Not Detected Not detected Salmonella species DNA Not Detected Not detected Shiga-like toxin producing E. coli (STEC) DNA Not Detected Not detected Shigella/Enteroinvasive E. coli (EIEC) DNA Not Detected Not detected C. difficile PCR Negative for C. difficile toxin by PCR Negative for C. difficile toxin by PCR Occult Blood Diagnostic Negative Negative 04/06/2024 Expanded GI panel (pending) 04/08/2024 Stool OANDP (-) RADIOLOGY 05/21/2023 CT AP with IV contrast Impression No acute abnormality. 04/06/2024 CT AP without IV contrast Limitations:Unenhanced imaging is limited for the evaluation of some intra-abdominal and pelvic pathology. Abdomen / Pelvis: Liver: Unremarkable. Biliary: Cholecystectomy. No abnormal bile duct dilatation Spleen: No splenomegaly. Pancreas: Unremarkable. Adrenals: No mass. Kidneys: No calculus, hydronephrosis or finding to suggest a cyst or mass in the unenhanced kidney. GI Tract: Anastomotic sutures at the level of the sigmoid colon and proximal:. Mild distal colonic diverticulosis without di (more content not included)... Normal [facility] Basic metabolic 2000 panelon 04-08-2024 Anion gap [Moles/Vol] 15 mmol/L Normal 8-15 [facility] Comment on above: Order Comment: Speci men Type: BLOOD SPECIMENOrdering Facility: [facility] Address: [address] [place] [address] Performed By: #### 2 4321-2 ####PACK LABORATORYCLIA [id number] [place] [address] [place] Calcium [Mass/Vol] 7.7 mg/dL Low 8.5-10.2 [facility] Comment on above: Order Comment: Speci men Type: BLOOD SPECIMENOrdering Facility: [facility] Address: [address] [place] [address] Performed By: #### 2 4321-2 ####PACK LABORATORYCLIA [id number] [place] [address] [place] Chloride [Moles/Vol] 102 mmol/L Normal 98-107 [facility] Comment on above: Order Comment: Speci men Type: BLOOD SPECIMENOrdering Facility: [facility] Address: [address] [place] [address] Performed By: #### 2 4321-2 ####PACK LABORATORYCLIA [id number] [place] [address] [place] CO2 [Moles/Vol] 22 mmol/L Normal 22-30 [facility] Comment on above: Order Comment: Speci men Type: BLOOD SPECIMENOrdering Facility: [facility] Address: [address] [place] [address] Performed By: #### 2 4321-2 ####PACK LABORATORYCLIA [id number] [place] [address] [place] Creatinine [Mass/Vol] 0.52 mg/dL Low 0.58-0.96 [facility] Comment on above: Order Comment: Speci men Type: BLOOD SPECIMENOrdering Facility: [facility] Address: [address] [place] [address] Performed By: #### 2 4321-2 ####PACK LABORATORYCLIA [id number] [place] [address] [facility] [place] Creatinine and Glomerular filtration rate.predicted panel (S/P/Bld) 94 mL/min/1.73m??? Normal >=60 [facility] Comment on above: Order Comment: Speci men Type: BLOOD SPECIMENOrdering Facility: [facility] Address: [address] [place] [address] Result Comment: Alysia mated Glomerular Filtration Rate (eGFR) is calculated using the 2020 CKD-EPI creatinine equation. This equation utilizes serum creatinine, sex, and age as parameters. The creatinine assay has traceable calibration to isotope dilution-mass spectrometry. Refer to KDIGO guidelines for clinical interpretation. In patients with unstable renal function, e.g. those with acute kidney injury, the eGFR may not accurately reflect actual GFR. Performed By: #### 2 4321-2 ####PACK LABORATORYCLIA [id number] [place] [id number] [place] Glucose [Mass/Vol] 74 mg/dL Normal 74-99 [facility] Comment on above: Order Comment: Randy sales Type: BLOOD SPECIMENOrdering Facility: [facility] Address: [address] [place] [address] Result Comment: The [place] Diabetes Association (ADA) provides guidance for cutoff values for fasting glucose and random glucose. The ADA defines fasting as no caloric intake for at least 8 hours. Fasting plasma glucose results between 100 to 125 mg/dL indicate increased risk for diabetes (prediabetes). Fasting plasma glucose results greater than or equal to 126 mg/dL meet the criteria for diagnosis of diabetes. In the absence of unequivocal hyperglycemia, results should be confirmed by repeat testing. In a patient with classic symptoms of hyperglycemia or hyperglycemic crisis, random plasma glucose results greater than or equal to 200 mg/dL meet the criteria for diagnosis of diabetes. Reference: Standards of Medical Care in Diabetes 2016, [place] [employer]. Diabetes Care. 2016.39(Suppl 1). Performed By: #### 2 4321-2 ####PACK LABORATORYCLIA [id number] [place] [id number] [place] Potassium [Moles/Vol] 3.9 mmol/L Normal 3.7-5.1 [facility] Comment on above: Order Comment: Randy sales Type: BLOOD SPECIMENOrdering Facility: [facility] Address: [address] [place] [address] Performed By: #### 2 4321-2 ####PACK LABORATORYCLIA [id number] [place] [address] [place] Sodium [Moles/Vol] 139 mmol/L Normal 136-144 [facility] Comment on above: Order Comment: Randy sales Type: BLOOD SPECIMENOrdering Facility: [facility] Address: [address] [place] [address] Performed By: #### 2 4321-2 ####PACK LABORATORYCLIA [id number] [address] [place] [facility] Urea nitrogen [Mass/Vol] 16 mg/dL Normal 7-21 [facility] Comment on above: Order Comment: Speci men Type: BLOOD SPECIMENOrdering Facility: [facility] Address: [address] [place] [address] Performed By: #### 2 4321-2 ####PACK LABORATORYCLIA [id number] [address] [place] CBC panel Auto (Bld)on 04-08 Erythrocyte distribution width (RBC) [Ratio] 11.9 % Normal 11.5-15.0 [facility] Comment on above: Order Comment: Speci men Type: BLOOD SPECIMENOrdering Facility: [facility] Address: [address] [place] [address] Performed By: #### 5 8410-2 ####PACK LABORATORYCLIA [id number] [address] [place] Hematocrit (Bld) [Volume fraction] 38.8 % Normal 36.0-46.0 [facility] Comment on above: Order Comment: Speci men Type: BLOOD SPECIMENOrdering Facility: [facility] Address: [address] [place] [address] Performed By: #### 5 8410-2 ####PACK LABORATORYCLIA [id number] [address] [place] [facility] Hemoglobin (Bld) [Mass/Vol] 13.1 g/dL Normal 11.5-15.5 [facility] Comment on above: Order Comment: Speci men Type: BLOOD SPECIMENOrdering Facility: [facility] Address: [address] [place] [address] Performed By: #### 5 8410-2 ####PACK LABORATORYCLIA [id number] [address] [place] MCH (RBC) [Entitic mass] 33.8 pg Normal 26.0-34.0 [facility] Comment on above: Order Comment: Speci men Type: BLOOD SPECIMENOrdering Facility: [facility] Address: [address] [place] [address] Performed By: #### 5 8410-2 ####PACK LABORATORYCLIA [id number] [address] MCHC (RBC) [Mass/Vol] 33.8 g/dL Normal 30.5-36.0 [facility] Comment on above: Order Comment: Speci men Type: BLOOD SPECIMENOrdering Facility: [facility] Address: [address] [place] [address] Performed By: #### 5 8410-2 ####PACK LABORATORYCLIA [id number] [address] MCV (RBC) [Entitic vol] 100.0 fL Normal 80.0-100.0 [facility] Comment on above: Order Comment: Speci men Type: BLOOD SPECIMENOrdering Facility: [facility] Address: [address] [place] [address] Performed By: #### 5 8410-2 ####PACK LABORATORYCLIA [id number] [address] Nucleated RBC (Bld) [#/Vol] 10*3/uL Normal <0.01 [facility] Comment on above: Order Comment: Speci men Type: BLOOD SPECIMENOrdering Facility: [facility] Address: [address] [place] [address] Performed By: #### 5 8410-2 ####PACK LABORATORYCLIA [id number] [address] Platelet mean volume (Bld) [Entitic vol] 10.1 fL Normal 9.0-12.7 [facility] Comment on above: Order Comment: Speci men Type: BLOOD SPECIMENOrdering Facility: [facility] Address: [address] [place] [address] Performed By: #### 5 8410-2 ####PACK LABORATORYCLIA [id number] [address] [place] Platelets (Bld) [#/Vol] 176 10*3/uL Normal 150-400 [facility] Comment on above: Order Comment: Speci men Type: BLOOD SPECIMENOrdering Facility: [facility] Address: [address] [place] [address] Performed By: #### 5 8410-2 ####PACK LABORATORYCLIA [id number] [place] [address] [place] RBC (Bld) [#/Vol] 3.88 10*6/uL Low 3.90-5.20 [facility] Comment on above: Order Comment: Speci men Type: BLOOD SPECIMENOrdering Facility: [facility] Address: [address] [place] [address] Performed By: #### 5 8410-2 ####[facility] LABORATORYCLIA [id number] [place] [address] [place] [facility] [place] WBC (Bld) [#/Vol] 3.77 10*3/uL Normal 3.70-11.00 [facility] Comment on above: Order Comment: Speci men Type: BLOOD SPECIMENOrdering Facility: [facility] Address: [address] [place] [address] Performed By: #### 5 8410-2 ####PACK LABORATORYCLIA [id number] [address] CONSULTon 04-08-2024 CONSULT HNO ID: [id number] Author: YESICA CORONEL MD Service: Gastroenterology Author Type: Physician Type: Consults Filed: 04/08/2024 13:23 Note Text: GASTROENTEROLOGY CONSULT NOTE PATIENT NAME: Fannie Avalos SERVICE DATE: April 08, 2024 SERVICE TIME: 12:04 PM PRIMARY CARE PHYSICIAN: Gavin Tran MD ATTENDING PHYSICIAN: Dr. Contreras REASON FOR ADMISSION: Partial SBO REASON FOR CONSULTATION: Persistent diarrhea HPI: This is a 78 year old female with a past medical history significant for HLD, OA, left hemicolectomy d/t perforation secondary to colonoscopy in 2008 and right sided colon resection 2/2 perforation 2/2 colonoscopy in 11/2017 who presented to the ER on 04/06/2024 with a complaint of nausea, vomiting, diarrhea and abdominal pain. Reports onset of acute diarrhea, nausea with multiple episodes of non bloody projectile emesis on Friday night at 1015 pm. Denies eating anything out of the ordinary prior to onset of sx, no sick contacts, new medications. Due to persistent n/v/diarrhea, she presented to ER for evaluation. CT AP showed ileus vs. Partial SBO. She was admitted and evaluated by general surgery. Stool studies negative for C-diff, Cx and OB. Expanded GI panel is pending. GI consult for diarrhea with incontinence. Labs essentially unremarkable this am. Per chart review, had 15 small volume non bloody liquid stools yesterday. She was evaluated by general surgery who felt patient possibly had resolving SBO. Due to persistent diarrhea yesterday and today GI consult was requested. She denies abdominal pain but reports orange liquid stool ~ hourly today. Reports typically stools are 1-2x/day and reports use of Benefiber 1 tsp daily. Reports if no BM in 2 days will use prune juice or MOM. States since summer has felt more on the constipated sized and since then has been using prune juice nightly. No reports of hematemesis, CGE, hematochezia or melena. Denies heartburn, dysphagia, odynophagia, fevers or chills. No weight loss. Home medications significant for ASA 81 mg daily, Naproxen 500 mg BID (states use prn). Per chart review, she underwent a colonoscopy 04/2023 which showed an anal stricture, non thrombosed internal hemorrhoids and external hemorrhoids that prolapse with straining but spontaneously regress t the resting position; patent functional need to end ileo-colonic anastomosis, characterized by healthy appearing mucosa; diverticulosis in the entire colon; stricture in the recto-sigmoid colon. Bx are unavailable at this time. 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 CERVICAL SPONDYLOSIS 02/26/2005 Diarrhea Diverticulosis of colon 01/06/2009 Esophageal reflux Hemorrhage of rectum and anus 12/02/2017 HEMORRHOIDS NOS 11/30/2008 HYPERLIPIDEMIA NEC/NOS 03/18/2005 IBS (irritable bowel syndrome) 01/26/2013 Incontinence of feces 11/30/2008 Incontinence of feces 03/09/2021 Nausea vomiting and diarrhea 04/06/2024 Osteopenia Palpitations 01/13/2012 Perforation of large intestine (HCC) 12/03/2017 Primary osteoarthritis of left hip 03/01/2024 Spondylosis, 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 TIA (transient ischemic attack) 06/17/2017 [place], [place] PAST SURGICAL HISTORY: PAST SURGICAL HISTORY Procedure Laterality Date CHOLECYSTECTOMY HX 03/2018 COLONOSCOPY FLX DX W/COLLJ SPEC WHEN PFRMD 10/20/2003 Colonoscopy COLONOSCOPY FLX DX W/COLLJ SPEC WHEN PFRMD 01/06/2009 Extensive diverticulosis/hemorrhoids COLONOSCOPY FLX DX W/COLLJ SPEC WHEN PFRMD 07/24/2012 [place] COLSC FLEXIBLE W/CONTROL BLEEDING ANY METHOD 12/02/2017 laser of cecal AVM DRAIN ABDOMINAL ABSCESS, PERCUTANEOUS 12/15/2017 perianastomotic abscess EGD 12/02/2017 ESOPHAGOGASTRODUODENOSCOPY TRANSORAL DIAGNOSTIC 07/03/2012 [place] GAMMA KNIFE 1FX TX DELIVERY 02/12/2022 x 3 on 01/15/22; 01/29/22; 02/12/22 HEMORRHOIDECTOMY INT AND XTRNL 2/> COLUMN/HI 10/26/2009 LAMINECTOMY W/RMVL ABNORMAL FACETS LUMBAR 07/08/2011 [place], [place] LAPAROSCOPY COLECTOMY PARTIAL W/ANASTOMOSIS 02/02/2009 LAPAROSCOPY COLECTOMY PARTIAL W/ANASTOMOSIS Right 12/03/2017 LAPS MOBLJ SPLENIC FLXR PFRMD W/PRTL COLECTOMY 02/02/2009 PAST SURGICAL HISTORY OF 1964 ovarian cyst removed PAST SURGICAL HISTORY OF 2001 BREAST BIOPSY--BENIGN PAST SURGICAL HISTORY OF 03/28/2018 Gallbladder removed SIGMOIDOSCOPY FLX CONTROL BLEEDING 03/22/2009 Granulation tissue at david (more content not included)... Normal [facility] CONSULT PROGon 04-08-2024 CONSULT PROG HNO ID: [id number] Author: NAHEED COOLEY PA-C Service: General Surgery Author Type: Physician Custodian Blood Bank Type: Consult Progress Note Filed: 04/08/2024 14:56 Note Text: SURGICAL SERVICES PROGRESS NOTE SERVICE DATE: 04/08/2024 SERVICE TIME: 1120 Subjective CHIEF COMPLAINT: diarrhea INTERVAL HISTORY OF PRESENT ILLNESS: Patient without abdominal pain. Some discomfort in lower abdomen. Main complaints incontinence of stool and diarrhea. Tolerating clears. Current Facility-Administered Medications Medication Dose Route Frequency NaCl 0.9% iv flush bag 20 mL INTRAVENOUS PRN ondansetron orally disintegrating 4 mg tab(s) (ZOFRAN ODT) 4 mg ORAL q 6 H PRN atorvastatin 40 mg tab(s) (LIPITOR) 40 mg ORAL AT BEDTIME carvedilol 3.125 mg tab(s) (COREG) 3.125 mg ORAL BID w MEALS potassium chloride ER 40 mEq tab(s) (KLOR-CON) 40 mEq ORAL DAILY super butt paste TOPICAL PRN psyllium 1 Packet (METAMUCIL) 1 Packet ORAL BID lactobacillus rhamnosus 10 billion cell (CULTURELLE) capsule 1 capsule ORAL DAILY Objective PHYSICAL EXAM: BP 92/71 Pulse 77 Temp (Src) 98.4 (Oral) Resp 14 Ht 5' 3 (1.60m) Wt 135 lb 9.3 oz (61.5kg) SpO2 99% BMI 24.02 kg/(m2). O2 Therapy: Room Air Physical Exam Performed GENERAL: Alert, no distress, cooperative ABDOMEN: Abdomen soft, non-tender, BS normal, No masses or organomegaly DATA: Diagnostic tests reviewed for today's visit: Most recent labs Recent Labs 04/08/24 0453 04/07/24 0451 04/06/24 1743 04/06/24 1013 WBC 3.77 2.82* -- 9.00 HB 13.1 11.3* -- 14.2 HCT 38.8 34.0* -- 43.3 PLT 176 147* -- 199 NA 139 138 -- 140 K 3.9 3.6* -- 3.8 CHLOR 102 105 -- 102 CO2 22 22 -- 27 BUN 16 25* -- 33* CREAT 0.52* 0.56* -- 0.80 GLUC 74 92 -- 130* CA 7.7* 7.5* -- 9.1 MG -- -- 1.8 -- P -- -- 2.4* -- Recent Labs 04/06/24 1013 TPROT 6.6 ALB 4.2 ALT 20 AST 25 ALKPHOS 82 TBILI 1.7* LIPASE 24 LACT 1.9 Assessment/Plan Patient Active Hospital Problem List: Partial small bowel obstruction (HCC) Date Noted: 04/07/2024 Diarrhea Date Noted: Nausea AND vomiting Date Noted: 04/06/2024 Abdominal pain Date Noted: 04/06/2024 Plan: -OK for soft diet from surgical standpoint -GI consult to assist in management of diarrhea -stool studies were negative -no plan for surgical intervention; re consult as needed -plan discussed with patient, RN and Dr. Gayle SIGNATURE: Naheed Cooley PA-C PATIENT NAME: Fannie Avalos DATE: April 08, 2024 TIME: 2:[address] [facility] G lamblia+Cryptosp Ag Stl Ql IAon 04-08-2024 G. lamblia+Cryptosporidiu m sp Ag IA Ql (Stl) CRYPTOSPORIDIUM ANTIGEN BY EIA: Negative for Cryptosporidium by EIA. GIARDIA ANTIGEN BY EIA: Negative for Giardia lamblia by EIA. [facility] Comment on above: Performed By: #### 4 8059-0 ####[facility] LABCLIA [id number] [address] OF [facility] NURSING PROGon 04-08-2024 NURSING PROG HNO ID: [id number] Author: KB SWARTZ RN Service: Nursing Author Type: Registered Nurse Type: Nursing Progress Note Filed: 04/08/2024 06:44 Note Text: 0630 pt has had multiple episodes of small sometimes incontinent clear/yellow drainage from rectum [facility] Basic metabolic 2000 panelon 04-07-2024 Anion gap [Moles/Vol] 11 mmol/L Normal 8-15 [facility] Comment on above: Order Comment: Speci men Type: BLOOD SPECIMENOrdering Facility: [facility] Address: [address] [place] [address] Performed By: #### 2 4321-2 ####PACK LABORATORYCLIA [id number] [place] [address] [place] Calcium [Mass/Vol] 7.5 mg/dL Low 8.5-10.2 [facility] Comment on above: Order Comment: Speci men Type: BLOOD SPECIMENOrdering Facility: [facility] Address: [address] [place] [address] Performed By: #### 2 4321-2 ####PACK LABORATORYCLIA [id number] [place] [address] [place] Chloride [Moles/Vol] 105 mmol/L Normal 98-107 [facility] Comment on above: Order Comment: Speci men Type: BLOOD SPECIMENOrdering Facility: [facility] Address: [address] [place] [address] Performed By: #### 2 4321-2 ####PACK LABORATORYCLIA [id number] [place] [address] [place] CO2 [Moles/Vol] 22 mmol/L Normal 22-30 [facility] Comment on above: Order Comment: Speci men Type: BLOOD SPECIMENOrdering Facility: [facility] Address: [address] [place] [address] Performed By: #### 2 4321-2 ####PACK LABORATORYCLIA [id number] [place] [address] [place] Creatinine [Mass/Vol] 0.56 mg/dL Low 0.58-0.96 [facility] Comment on above: Order Comment: Speci men Type: BLOOD SPECIMENOrdering Facility: [facility] Address: [address] [place] [address] Performed By: #### 2 4321-2 ####PACK LABORATORYCLIA [id number] [place] [address] [place] [facility] [place] Creatinine and Glomerular filtration rate.predicted panel (S/P/Bld) 92 mL/min/1.73m??? Normal >=60 [facility] Comment on above: Order Comment: Speci men Type: BLOOD SPECIMENOrdering Facility: [facility] Address: [address] [place] [address] Result Comment: Alysia mated Glomerular Filtration Rate (eGFR) is calculated using the 2020 CKD-EPI creatinine equation. This equation utilizes serum creatinine, sex, and age as parameters. The creatinine assay has traceable calibration to isotope dilution-mass spectrometry. Refer to KDIGO guidelines for clinical interpretation. In patients with unstable renal function, e.g. those with acute kidney injury, the eGFR may not accurately reflect actual GFR. Performed By: #### 2 4321-2 ####PACK LABORATORYCLIA [id number] [place] [id number] [place] Glucose [Mass/Vol] 92 mg/dL Normal 74-99 [facility] Comment on above: Order Comment: Randy sales Type: BLOOD SPECIMENOrdering Facility: [facility] Address: [address] [place] [address] Result Comment: The [place] Diabetes Association (ADA) provides guidance for cutoff values for fasting glucose and random glucose. The ADA defines fasting as no caloric intake for at least 8 hours. Fasting plasma glucose results between 100 to 125 mg/dL indicate increased risk for diabetes (prediabetes). Fasting plasma glucose results greater than or equal to 126 mg/dL meet the criteria for diagnosis of diabetes. In the absence of unequivocal hyperglycemia, results should be confirmed by repeat testing. In a patient with classic symptoms of hyperglycemia or hyperglycemic crisis, random plasma glucose results greater than or equal to 200 mg/dL meet the criteria for diagnosis of diabetes. Reference: Standards of Medical Care in Diabetes 2016, [place] [employer] Association. Diabetes Care. 2016.39(Suppl 1). Performed By: #### 2 4321-2 ####PACK LABORATORYCLIA [id number] [place] [id number] [place] Potassium [Moles/Vol] 3.6 mmol/L Low 3.7-5.1 [facility] Comment on above: Order Comment: Randy sales Type: BLOOD SPECIMENOrdering Facility: [facility] Address: [address] [place] [address] Performed By: #### 2 4321-2 ####PACK LABORATORYCLIA [id number] [place] [address] [place] Sodium [Moles/Vol] 138 mmol/L Normal 136-144 [facility] Comment on above: Order Comment: Randy sales Type: BLOOD SPECIMENOrdering Facility: [facility] Address: [address] [place] [address] Performed By: #### 2 4321-2 ####PACK LABORATORYCLIA [id number] [address] [place] [facility] Urea nitrogen [Mass/Vol] 25 mg/dL High 7-21 [facility] Comment on above: Order Comment: Speci men Type: BLOOD SPECIMENOrdering Facility: [facility] Address: [address] [place] [address] Performed By: #### 2 4321-2 ####PACK LABORATORYCLIA [id number] [address] [place] CBC panel Auto (Bld)on 04-07 Erythrocyte distribution width (RBC) [Ratio] 12.0 % Normal 11.5-15.0 [facility] Comment on above: Order Comment: Speci men Type: BLOOD SPECIMENOrdering Facility: [facility] Address: [address] [place] [address] Performed By: #### 5 8410-2 ####PACK LABORATORYCLIA [id number] [address] [place] Hematocrit (Bld) [Volume fraction] 34.0 % Low 36.0-46.0 [facility] Comment on above: Order Comment: Speci men Type: BLOOD SPECIMENOrdering Facility: [facility] Address: [address] [place] [address] Performed By: #### 5 8410-2 ####PACK LABORATORYCLIA [id number] [address] [place] [facility] Hemoglobin (Bld) [Mass/Vol] 11.3 g/dL Low 11.5-15.5 [facility] Comment on above: Order Comment: Speci men Type: BLOOD SPECIMENOrdering Facility: [facility] Address: [address] [place] [address] Performed By: #### 5 8410-2 ####PACK LABORATORYCLIA [id number] [address] [place] MCH (RBC) [Entitic mass] 33.2 pg Normal 26.0-34.0 [facility] Comment on above: Order Comment: Speci men Type: BLOOD SPECIMENOrdering Facility: [facility] Address: [address] [place] [address] Performed By: #### 5 8410-2 ####PACK LABORATORYCLIA [id number] [address] MCHC (RBC) [Mass/Vol] 33.2 g/dL Normal 30.5-36.0 [facility] Comment on above: Order Comment: Speci men Type: BLOOD SPECIMENOrdering Facility: [facility] Address: [address] [place] [address] Performed By: #### 5 8410-2 ####PACK LABORATORYCLIA [id number] [address] MCV (RBC) [Entitic vol] 100.0 fL Normal 80.0-100.0 [facility] Comment on above: Order Comment: Speci men Type: BLOOD SPECIMENOrdering Facility: [facility] Address: [address] [place] [address] Performed By: #### 5 8410-2 ####PACK LABORATORYCLIA [id number] [address] Nucleated RBC (Bld) [#/Vol] 10*3/uL Normal <0.01 [facility] Comment on above: Order Comment: Speci men Type: BLOOD SPECIMENOrdering Facility: [facility] Address: [address] [place] [address] Performed By: #### 5 8410-2 ####PACK LABORATORYCLIA [id number] [address] Platelet mean volume (Bld) [Entitic vol] 9.9 fL Normal 9.0-12.7 [facility] Comment on above: Order Comment: Speci men Type: BLOOD SPECIMENOrdering Facility: [facility] Address: [address] [place] [address] Performed By: #### 5 8410-2 ####PACK LABORATORYCLIA [id number] [address] [place] Platelets (Bld) [#/Vol] 147 10*3/uL Low 150-400 [facility] Comment on above: Order Comment: Speci men Type: BLOOD SPECIMENOrdering Facility: [facility] Address: [address] [place] [address] Performed By: #### 5 8410-2 ####PACK LABORATORYCLIA [id number] [place] [address] [place] RBC (Bld) [#/Vol] 3.40 10*6/uL Low 3.90-5.20 [facility] Comment on above: Order Comment: Speci men Type: BLOOD SPECIMENOrdering Facility: [facility] Address: [address] [place] [address] Performed By: #### 5 8410-2 ####PACK LABORATORYCLIA [id number] [place] [address] [place] [facility] [place] WBC (Bld) [#/Vol] 2.82 10*3/uL Low 3.70-11.00 [facility] Comment on above: Order Comment: Speci men Type: BLOOD SPECIMENOrdering Facility: [facility] Address: [address] [place] [address] Performed By: #### 5 8410-2 ####PACK LABORATORYCLIA [id number] [address] CONSULTon 04-07-2024 CONSULT HNO ID: [id number] Author: NAHEED COOLEY PA-C Service: General Surgery Author Type: Physician Custodian Blood Bank Type: Consults Filed: 04/07/2024 09:49 Note Text: SURGICAL SERVICES INITIAL CONSULT SERVICE DATE: 04/07/2024 SERVICE TIME: 919 REASON FOR CONSULT: SBO vs ileus REQUESTING PHYSICIAN: Christopher Miles MD PRIMARY CARE PHYSICIAN: Gavin Tran MD Subjective HISTORY OF PRESENT ILLNESS: Ms. Avalos is a 78 year old female PMH significant for HLD, OA, bowel perforation with resection. Surgical hx of cholecystectomy, TERI, and bowel resection. Presented to the ED with acute onset of diarrhea and vomiting. No associated fever or chills. Denies sick contacts. Denies suspicion of food poisoning. Diarrhea and vomiting x2 hours on presentation. Currently has slowed down. 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 CERVICAL SPONDYLOSIS 02/26/2005 Diarrhea Diverticulosis of colon 01/06/2009 Esophageal reflux Hemorrhage of rectum and anus 12/02/2017 HEMORRHOIDS NOS 11/30/2008 HYPERLIPIDEMIA NEC/NOS 03/18/2005 IBS (irritable bowel syndrome) 01/26/2013 Incontinence of feces 11/30/2008 Incontinence of feces 03/09/2021 Osteopenia Palpitations 01/13/2012 Perforation of large intestine (HCC) 12/03/2017 Primary osteoarthritis of left hip 03/01/2024 Spondylosis, 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 TIA (transient ischemic attack) 06/17/2017 [place], [place] PAST SURGICAL HISTORY Procedure Laterality Date CHOLECYSTECTOMY HX 03/2018 COLONOSCOPY FLX DX W/COLLJ SPEC WHEN PFRMD 10/20/2003 Colonoscopy COLONOSCOPY FLX DX W/COLLJ SPEC WHEN PFRMD 01/06/2009 Extensive diverticulosis/hemorrhoids COLONOSCOPY FLX DX W/COLLJ SPEC WHEN PFRMD 07/24/2012 [place] COLSC FLEXIBLE W/CONTROL BLEEDING ANY METHOD 12/02/2017 laser of cecal AVM DRAIN ABDOMINAL ABSCESS, PERCUTANEOUS 12/15/2017 perianastomotic abscess EGD 12/02/2017 ESOPHAGOGASTRODUODENOSCOPY TRANSORAL DIAGNOSTIC 07/03/2012 [place] GAMMA KNIFE 1FX TX DELIVERY 02/12/2022 x 3 on 01/15/22; 01/29/22; 02/12/22 HEMORRHOIDECTOMY INT AND XTRNL 2/> COLUMN/HI 10/26/2009 LAMINECTOMY W/RMVL ABNORMAL FACETS LUMBAR 07/08/2011 [place], [place] LAPAROSCOPY COLECTOMY PARTIAL W/ANASTOMOSIS 02/02/2009 LAPAROSCOPY COLECTOMY PARTIAL W/ANASTOMOSIS Right 12/03/2017 LAPS MOBLJ SPLENIC FLXR PFRMD W/PRTL COLECTOMY 02/02/2009 PAST SURGICAL HISTORY OF 1964 ovarian cyst removed PAST SURGICAL HISTORY OF 2001 BREAST BIOPSY--BENIGN PAST SURGICAL HISTORY OF 03/28/2018 Gallbladder removed SIGMOIDOSCOPY FLX CONTROL BLEEDING 03/22/2009 Granulation tissue at anastomosis SIGMOIDOSCOPY FLX W/BIOPSY SINGLE/MULTIPLE 02/28/2011 TOTAL ABDOMINAL HYSTERECT W/WO RMVL TUBE OVARY 02/1990 Hysterectomy, TERI, BSO FAMILY HISTORY Problem Relation Age of Onset Breast Cancer Mother dec. age 88 Blood Disease Father PE, post MVA, dec. 53yo Breast Cancer Sister Myositis Sister Inclusion Body Myositis None Sister Alzheimer's Disease Sister other (multiple myeloma) Brother Social History Tobacco Use Smoking status: Never Smokeless tobacco: Never Vaping Use Vaping status: Never Used Substance Use Topics Alcohol use: No Drug use: No atorvastatin (LIPITOR) 40 mg tablet, TAKE 1 TABLET EVERY DAY AT BEDTIME FOR CHOLESTEROL, Disp: 90 tablet, Rfl: 3, 04/05/2024 carvedilol (COREG) 3.125 mg tablet, , Disp: , Rfl: , 04/05/2024 Cholecalciferol, Vitamin D3, 25 mcg (1,000 unit) cap, Take 1 capsule by mouth once daily., Disp: , Rfl: , 04/05/2024 VITAMIN E 200 UNIT CAP, Take 200 Units by mouth once daily., Disp: , Rfl: 0, 04/05/2024 MULTIVITAMIN TAB, Take one(1) tablet daily., Disp: , Rfl: 0, 04/05/2024 ASPIRIN 81 MG TAB, Take 81 mg by mouth once daily., Disp: , Rfl: 0, 04/05/2024 meclizine (ANTIVERT) 12.5 mg tab, Take 2 tablets by mouth three times a day as needed., Disp: 15 tablet, Rfl: 0 alendronate (FOSAMAX) 70 mg tablet, Take 1 tablet by mouth one time a week. Take with a full glass of water, on an empty stomach; do NOT lie down for 30minutes., Disp: 12 tablet, Rfl: 3, 03/30/2024 cetirizine (ZYRTEC) 10 mg tablet, Take 10 mg by mouth once daily., Disp: , Rfl: naproxen (NAPROSYN) 500 mg tablet, Take 1 tablet by mouth two times a day with meals., Disp: 30 tablet, Rfl: 0 fluticasone (FLONASE) 50 mcg/actuation nasal spray, Use 2 Sprays in each nostril once daily. Rinse mouth after use., Disp: 1 Each, Rfl: 0 Perry-3 Fatty Acids (FISH OIL) ORAL Cap, Take one(1) capsule daily., Disp: , Rfl: 0, 04/03/2024 CALCIUM + D 600 MG-200 UNIT TAB, Take one(1) tablet daily., Disp: , Rfl: 0 Current Facility-Administered Medications Medication Dose Route Frequency NaCl 0.9% iv flush bag 20 mL I (more content not included)... Normal [facility] CONSULT HNO ID: [id number] Author: KEN OWENS MD Service: General Surgery Author Type: Physician Type: Consults Filed: 04/07/2024 09:42 Note Text: General Surgery INITIAL CONSULT NOTE SERVICE DATE: 04/07/2024 SERVICE TIME: 9:39 AM REASON FOR CONSULT: Partial small bowel obstruction REQUESTING PHYSICIAN: Dr. Maria L MA PRIMARY CARE PHYSICIAN: Gavin Tran MD Subjective This is a 78 year old female with PMH significant for HLD, OA, bowel perforation x 2 after colonoscopy presented to the ER on 04/06/2024 with a complaint of nausea, vomiting, diarrhea and abdominal pain which started last night. as per the patient her symptoms started shortly before midnight she had about 8-10 episodes of loose stools which was followed by nonstop vomiting for 2 hours. She decided to go to the ER in the morning to seek help. She had 1 episode of loose stool in the ER and 2 episodes of vomiting in the ER[place] [address], pulse of 97/min, temp of 98.6F, RR of 20/min, 100% on room air. Labs were remarkable for total bilirubin of 1.7, lipase was normal. UA was slightly cloudy with trace leukocyte esterase, 2+ protein CT abdomen and pelvis showed nonspecific nondistended fluid-filled loops of small bowel no abnormal wall thickening likely secondary to adynamic ileus however partial SBO cannot be ruled out. She was transferred to [facility] further evaluation and care. Patient states that she has had several bowel movements since arriving on the floor. FUNCTIONAL STATUS: Independent 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 CERVICAL SPONDYLOSIS 02/26/2005 Diarrhea Diverticulosis of colon 01/06/2009 Esophageal reflux Hemorrhage of rectum and anus 12/02/2017 HEMORRHOIDS NOS 11/30/2008 HYPERLIPIDEMIA NEC/NOS 03/18/2005 IBS (irritable bowel syndrome) 01/26/2013 Incontinence of feces 11/30/2008 Incontinence of feces 03/09/2021 Osteopenia Palpitations 01/13/2012 Perforation of large intestine (HCC) 12/03/2017 Primary osteoarthritis of left hip 03/01/2024 Spondylosis, 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 TIA (transient ischemic attack) 06/17/2017 [place] PAST SURGICAL HISTORY Procedure Laterality Date CHOLECYSTECTOMY HX 03/2018 COLONOSCOPY FLX DX W/COLLJ SPEC WHEN PFRMD 10/20/2003 Colonoscopy COLONOSCOPY FLX DX W/COLLJ SPEC WHEN PFRMD 01/06/2009 Extensive diverticulosis/hemorrhoids COLONOSCOPY FLX DX W/COLLJ SPEC WHEN PFRMD 07/24/2012 [place] COLSC FLEXIBLE W/CONTROL BLEEDING ANY METHOD 12/02/2017 laser of cecal AVM DRAIN ABDOMINAL ABSCESS, PERCUTANEOUS 12/15/2017 perianastomotic abscess EGD 12/02/2017 ESOPHAGOGASTRODUODENOSCOPY TRANSORAL DIAGNOSTIC 07/03/2012 [place] GAMMA KNIFE 1FX TX DELIVERY 02/12/2022 x 3 on 01/15/22; 01/29/22; 02/12/22 HEMORRHOIDECTOMY INT AND XTRNL 2/> COLUMN/HI 10/26/2009 LAMINECTOMY W/RMVL ABNORMAL FACETS LUMBAR 07/08/2011 [place], [place] LAPAROSCOPY COLECTOMY PARTIAL W/ANASTOMOSIS 02/02/2009 LAPAROSCOPY COLECTOMY PARTIAL W/ANASTOMOSIS Right 12/03/2017 LAPS MOBLJ SPLENIC FLXR PFRMD W/PRTL COLECTOMY 02/02/2009 PAST SURGICAL HISTORY OF 1964 ovarian cyst removed PAST SURGICAL HISTORY OF 2001 BREAST BIOPSY--BENIGN PAST SURGICAL HISTORY OF 03/28/2018 Gallbladder removed SIGMOIDOSCOPY FLX CONTROL BLEEDING 03/22/2009 Granulation tissue at anastomosis SIGMOIDOSCOPY FLX W/BIOPSY SINGLE/MULTIPLE 02/28/2011 TOTAL ABDOMINAL HYSTERECT W/WO RMVL TUBE OVARY 02/1990 Hysterectomy, TERI, BSO FAMILY HISTORY Problem Relation Age of Onset Breast Cancer Mother dec. age 88 Blood Disease Father PE, post MVA, dec. 53yo Breast Cancer Sister Myositis Sister Inclusion Body Myositis None Sister Alzheimer's Disease Sister other (multiple myeloma) Brother Social History Tobacco Use Smoking status: Never Smokeless tobacco: Never Vaping Use Vaping status: Never Used Substance Use Topics Alcohol use: No Drug use: No atorvastatin (LIPITOR) 40 mg tablet, TAKE 1 TABLET EVERY DAY AT BEDTIME FOR CHOLESTEROL, Disp: 90 tablet, Rfl: 3, 04/05/2024 carvedilol (COREG) 3.125 mg tablet, , Disp: , Rfl: , 04/05/2024 Cholecalciferol, Vitamin D3, 25 mcg (1,000 unit) cap, Take 1 capsule by mouth once daily., Disp: , Rfl: , 04/05/2024 VITAMIN E 200 UNIT CAP, Take 200 Units by mouth once daily., Disp: , Rfl: 0, 04/05/2024 MULTIVITAMIN TAB, Take one(1) tablet daily., Disp: , Rfl: 0, 04/05/2024 ASPIRIN 81 MG TAB, Take 81 mg by mouth once daily., Disp: , Rfl: 0, 04/05/2024 meclizine (ANTIVERT) 12.5 mg tab, Take 2 tablets by mouth three times a day as needed., Disp: 15 tablet, Rfl: 0 alendronate (FOSAMAX) 70 mg tablet, Take 1 tablet by mouth one time a week. (more content not included)... Normal [facility] URINALYSIS, REFLEX MICROSCOP ICon 04-07-2024 Bilirubin Ql (U) Negative Normal Negative [facility] Comment on above: Order Comment: Speci men Type: URINE SPECIMENOrdering Facility: [facility] Address: [address] [place] [address] Performed By: #### L [id number] ####[facility]ORY[facility]IA [id number] [place] [address] [place] Clarity (Unsp spec) Clear Normal Clear [facility] Comment on above: Order Comment: Speci men Type: URINE SPECIMENOrdering Facility: [facility] Address: [address] [place] [address] Performed By: #### L [id number] ####[facility]ORATORYCLIA [id number] [place] [address] [place] Color (U) Yellow Normal Yellow [facility] Comment on above: Order Comment: Speci men Type: URINE SPECIMENOrdering Facility: [facility] Address: [address] [place] [address] Performed By: #### L [id number] ####[facility] LABORATORYCLIA [id number] [place] [address] [place] Epithelial cells LM.HPF (Urine sed) [#/Area] Few Normal [facility] Comment on above: Order Comment: Speci men Type: URINE SPECIMENOrdering Facility: [facility] Address: [address] [place] [address] Performed By: #### L [id number] ####[facility]ORATORYCLIA [id number] [address] [place] Glucose Test strip (U) [Mass/Vol] Negative Normal Negative [facility] Comment on above: Order Comment: Speci men Type: URINE SPECIMENOrdering Facility: [facility] Address: [address] [place] [address] Performed By: #### L [id number] ####[facility] LABORATORYCLIA [id number] [place] [address] [place] Hemoglobin Ql (U) 1+ Abnormal Negative [facility] Comment on above: Order Comment: Speci men Type: URINE SPECIMENOrdering Facility: [facility] Address: [address] [place] [address] Performed By: #### L [id number] ####[facility]ORATORYCLIA [id number] [place] [address] [place] Ketones Ql (U) 2+ Abnormal Negative [facility] Comment on above: Order Comment: Speci men Type: URINE SPECIMENOrdering Facility: [facility] Address: [address] [place] [address] Performed By: #### L [id number] ####[facility] LABORATORYCLIA [id number] [place] [address] [place] [facility] [place] Leukocyte esterase Test strip Ql (U) Trace Abnormal Negative [facility] Comment on above: Order Comment: Speci men Type: URINE SPECIMENOrdering Facility: [facility] Address: [address] [place] [address] Performed By: #### L [id number] ####[facility] LABORATORYCLIA [id number] [place] [address] [place] Nitrite Ql (U) Negative Normal Negative [facility] Comment on above: Order Comment: Speci men Type: URINE SPECIMENOrdering Facility: [facility] Address: [address] [place] [address] Performed By: #### L [id number] ####[facility]ORATORYCLIA [id number] [address] [place] pH (U) 6.0 [pH] Normal 5.0-8.0 [facility] Comment on above: Order Comment: Speci men Type: URINE SPECIMENOrdering Facility: [facility] Address: [address] [place] [address] Performed By: #### L [id number] ####[facility] LABORATORYCLIA [id number] [address] [place] [facility] Protein (U) [Mass/Vol] Negative Normal Negative [facility] Comment on above: Order Comment: Speci men Type: URINE SPECIMENOrdering Facility: [facility] Address: [address] [place] [address] Performed By: #### L [id number] ####[facility] LABORATORYCLIA [id number] [place] [address] [place] RBC LM.HPF (Urine sed) [#/Area] 0-3 /HPF Normal 0-3 /HPF [facility] Comment on above: Order Comment: Speci men Type: URINE SPECIMENOrdering Facility: [facility] Address: [address] [place] [address] Performed By: #### L [id number] ####[facility] LABORATORYCLIA [id number] [address] [place] Specific gravity (U) [Rel density] 1.020 Normal 1.005-1.03 0 [facility] Comment on above: Order Comment: Speci men Type: URINE SPECIMENOrdering Facility: [facility] Address: [address] [place] [address] Performed By: #### L [id number] ####[facility] LABORATORYCLIA [id number] [address] Urobilinogen Ql (U) 0.2 EU/dL Normal 0.2-1.0 EU/dL [facility] Comment on above: Order Comment: Speci men Type: URINE SPECIMENOrdering Facility: [facility] Address: [address] [place] [address] Performed By: #### L [id number] ####[facility] LABORATORYCLIA [id number] [address] WBC LM.HPF (Urine sed) [#/Area] 0-5 /HPF Normal 0-5 /HPF [facility] Comment on above: Order Comment: Speci men Type: URINE SPECIMENOrdering Facility: [facility] Address: [address] [place] [address] Performed By: #### L [id number] ####[facility] LABORATORYCLIA [id number] [address] ALLIED HEALTHon 04-06-2024 [facility] HNO ID: [id number] Author: IVETTE TONG RT(R) Service: Radiology Author Type: Leave Manager Type: Allied Health Filed: 04/06/2024 10:56 Note Text: Radiology Service Progress Note PATIENT NAME: Fannie Avalos DATE OF SERVICE: April 06, 2024 TIME: 10:56 AM PATIENT IDENTITY VERIFICATION COMPLETED USING TWO (2) IDENTIFIERS: Name and Date of confirmed by patient verbally. FALL SCREENING: Has the patient had 2 falls in the last year or 1 fall with injury or currently using an Ambulatory Assistive Device (Walker, Cane, Wheelchair, Crutches, etc.)? Emergency Room Patient: Screened in ED PATIENT GENDER DATA: Female. status: : No status: NO. PATIENT RELEVANT IMPLANT DATA REVIEWED: Yes PATIENT PRESENTS WITH AN IMPLANTABLE OR ATTACHED VAT TENDER: No RADIOLOGY DEPARTMENT: CT; Exam(s) Completed: Abdomen/Pelvis PERIPHERAL IV DATA: Not applicable SIGNED BY: RT Acacia(R) April 06, 2024 10:56 AM Normal [facility] C diff Tox gens Stl Ql DAR+p tierney 04-06-2024 C. difficile toxin genes DAR+probe Ql (Stl) Negative Normal Negative for C. difficile toxin by PCR [facility] Comment on above: Order Comment: Speci men Type: STOOL SPECIMENOrdering Facility: [facility] Address: [address] [place] [address] Performed By: #### 5 4067-4, FECWBC ####[facility] LABCLIA [id number] [facility] [id number] [place] [address] [place] CBC W Auto Differential pane l (Bld)on 04-06-2024 Basophils (Bld) [#/Vol] 10*3/uL Normal <0.11 [facility] Comment on above: Order Comment: Speci men Type: BLOOD SPECIMEN [facility] Address: [address] [place] [address] Performed By: #### 5 7021-8 #### [facility] CLIA [id number] [address] [place] [address] [place] Basophils/100 WBC (Bld) 0.1 % Normal [facility] Comment on above: Order Comment: Speci men Type: BLOOD SPECIMEN [facility] Address: [address] [place] [address] Performed By: #### 5 7021-8 #### [facility] CLIA [id number] [address] [place] [address] [place] Differential cell count method Nom (Bld) Auto Normal [facility] Comment on above: Order Comment: Speci men Type: BLOOD SPECIMEN [facility] Address: [address] [place] [address] Performed By: #### 5 7021-8 #### [facility] CLIA [id number] [address] [place] [address] [place] Eosinophils (Bld) [#/Vol] 10*3/uL Normal <0.46 [facility] Comment on above: Order Comment: Speci men Type: BLOOD SPECIMEN [facility] Address: [address] [place] [address] Performed By: #### 5 7021-8 #### [facility] CLIA [id number] [address] [place] [address] [place] Eosinophils/100 WBC (Bld) 0.1 % Normal [facility] Comment on above: Order Comment: Speci men Type: BLOOD SPECIMEN [facility] Address: [address] [place] [address] Performed By: #### 5 7021-8 #### [facility] CLIA [id number] [address] [place] [address] [place] Erythrocyte distribution width (RBC) [Ratio] 11.9 % Normal 11.5-15.0 [facility] Comment on above: Order Comment: Speci men Type: BLOOD SPECIMEN [facility] Address: [address] [place] [address] Performed By: #### 5 7021-8 #### [facility] CLIA [id number] [address] [place] [address] [place] Hematocrit (Bld) [Volume fraction] 43.3 % Normal 36.0-46.0 [facility] Comment on above: Order Comment: Speci men Type: BLOOD SPECIMEN [facility] Address: [address] [place] [address] Performed By: #### 5 7021-8 #### [facility] CLIA [id number] [address] [place] [address] [place] Hemoglobin (Bld) [Mass/Vol] 14.2 g/dL Normal 11.5-15.5 [facility] Comment on above: Order Comment: Speci men Type: BLOOD SPECIMEN [facility] Address: [address] [place] [address] Performed By: #### 5 7021-8 #### [facility] CLIA [id number] [address] [place] [address] [place] Immature granulocytes (Bld) [#/Vol] 10*3/uL Normal <0.10 [facility] Comment on above: Order Comment: Speci men Type: BLOOD SPECIMEN [facility] Address: [address] [place] [address] Performed By: #### 5 7021-8 #### [facility] CLIA [id number] [address] [place] [address] [place] Immature granulocytes/100 WBC (Bld) 0.0 % Normal [facility] Comment on above: Order Comment: Speci men Type: BLOOD SPECIMEN [facility] Address: [address] [place] [address] Performed By: #### 5 7021-8 #### [facility] CLIA [id number] [address] [place] [address] [place] Lymphocytes (Bld) [#/Vol] 0.18 10*3/uL Low 1.00-4.00 [facility] Comment on above: Order Comment: Speci men Type: BLOOD SPECIMEN [facility] Address: [address] [place] [address] Performed By: #### 5 7021-8 #### [facility] CLIA [id number] [address] [place] [address] [facility] [place] Lymphocytes/100 WBC (Bld) 2.0 % Normal [facility] Comment on above: Order Comment: Speci men Type: BLOOD SPECIMEN [facility] Address: [address] [place] [address] Performed By: #### 5 7021-8 #### [facility] CLIA [id number] [address] [place], [place] [id number] [place] MCH (RBC) [Entitic mass] 32.9 pg Normal 26.0-34.0 [facility] Comment on above: Order Comment: Speci men Type: BLOOD SPECIMEN [facility] Address: [address] [place] [address] Performed By: #### 5 7021-8 #### [facility] CLIA [id number] [address] [place] [address] [place] MCHC (RBC) [Mass/Vol] 32.8 g/dL Normal 30.5-36.0 [facility] Comment on above: Order Comment: Speci men Type: BLOOD SPECIMEN [facility] Address: [address] [place] [address] Performed By: #### 5 7021-8 #### [facility] CLIA [id number] [address] [place] [address] [place] MCV (RBC) [Entitic vol] 100.5 fL High 80.0-100.0 [facility] Comment on above: Order Comment: Speci men Type: BLOOD SPECIMEN [facility] Address: [address] [place] [address] Performed By: #### 5 7021-8 #### [facility] CLIA [id number] [address] [place] [address] [place] Monocytes (Bld) [#/Vol] 0.40 10*3/uL Normal <0.87 [facility] Comment on above: Order Comment: Speci men Type: BLOOD SPECIMEN [facility] Address: [address] [place] [address] Performed By: #### 5 7021-8 #### [facility] CLIA [id number] [address] [place] [address] [place] Monocytes/100 WBC (Bld) 4.4 % Normal [facility] Comment on above: Order Comment: Speci men Type: BLOOD SPECIMEN [facility] Address: [address] [place] [address] Performed By: #### 5 7021-8 #### [facility] CLIA [id number] [address] [place] [address] [place] Neutrophils (Bld) [#/Vol] 8.40 10*3/uL High 1.45-7.50 [facility] Comment on above: Order Comment: Speci men Type: BLOOD SPECIMEN [facility] Address: [address] [place] [address] Performed By: #### 5 7021-8 #### [facility] CLIA [id number] [address] [facility] [address] [place] Neutrophils/100 WBC (Bld) 93.4 % Normal [facility] Comment on above: Order Comment: Speci men Type: BLOOD SPECIMEN [facility] Address: [address] [place] [address] Performed By: #### 5 7021-8 #### [facility] CLIA [id number] [address] [place] [address] [place] Nucleated RBC (Bld) [#/Vol] Normal [facility] Comment on above: Order Comment: Speci men Type: BLOOD SPECIMEN [facility] Address: [address] [place] [address] Performed By: #### 5 7021-8 #### [facility] CLIA [id number] [address] [place] [address] [place] Nucleated RBC/100 WBC (Bld) [Ratio] Normal [facility] Comment on above: Order Comment: Speci men Type: BLOOD SPECIMEN [facility] Address: [address] [place] [address] Performed By: #### 5 7021-8 #### [facility] CLIA [id number] [address] [facility] [address] [place] Platelet mean volume (Bld) [Entitic vol] 9.6 fL Normal 9.0-12.7 [facility] Comment on above: Order Comment: Speci men Type: BLOOD SPECIMEN [facility] Address: [address] [place] [address] Performed By: #### 5 7021-8 #### [facility] CLIA [id number] [address] [place] [address] [place] Platelets (Bld) [#/Vol] 199 10*3/uL Normal 150-400 [facility] Comment on above: Order Comment: Speci men Type: BLOOD SPECIMEN [facility] Address: [address] [place] [address] Performed By: #### 5 7021-8 #### [facility] CLIA [id number] [address] [place] [address] [place] RBC (Bld) [#/Vol] 4.31 10*6/uL Normal 3.90-5.20 [facility] Comment on above: Order Comment: Speci men Type: BLOOD SPECIMEN [facility] Address: [address] [place] [address] Performed By: #### 5 7021-8 #### [facility] CLIA [id number] [address] [place] [address] [facility] WBC (Bld) [#/Vol] 9.00 10*3/uL Normal 3.70-11.00 [facility] Comment on above: Order Comment: Speci men Type: BLOOD SPECIMEN [facility] Address: [address] [place] [address] Performed By: #### 5 7021-8 #### [facility] CLIA [id number] [address] [place] [address] [facility] CT ABD/PEL WO IVCONon 2023 CT ABD/PEL WO IVCON * * *Final Report* * * DATE OF EXAM: Apr 06 2024 10:55AM [facility] 0531 - CT ABD/PEL WO IVCON / PROCEDURE REASON: Diarrhea * * * * Physician Interpretation * * * * EXAMINATION: CT ABDOMEN AND PELVIS WITHOUT IV CONTRAST CLINICAL HISTORY: Nausea and vomiting. Previous partial colectomy surgeries TECHNIQUE: Non-IV contrast imaging of the abdomen and pelvis was performed using standard technique, scanning from just above the dome of the diaphragm to the symphysis pubis. Unenhanced imaging is limited for the evaluation of some intra-abdominal and pelvic pathology. MQ: CTAPWO_3 Contrast: IV: None : ml of CT Radiation dose: Integrated Dose-length product (DLP) for this visit = 281.58 mGy*cm. CT Dose Reduction Employed: Automated exposure control(AEC) and iterative recon COMPARISON: None. RESULT: Limitations:Unenhanced imaging is limited for the evaluation of some intra-abdominal and pelvic pathology. Abdomen / Pelvis: Liver: Unremarkable. Biliary: Cholecystectomy. No abnormal bile duct dilatation Spleen: No splenomegaly. Pancreas: Unremarkable. Adrenals: No mass. Kidneys: No calculus, hydronephrosis or finding to suggest a cyst or mass in the unenhanced kidney. GI Tract: Anastomotic sutures at the level of the sigmoid colon and proximal:. Mild distal colonic diverticulosis without diverticulitis. Nonspecific nondistended fluid-filled loops of small bowel Lymph Nodes: No lymphadenopathy. Mesentery/peritoneum: No ascites. Retroperitoneum: No mass. Vasculature: Moderate degree of arterial calcifications aorta and its branches without aneurysmal enlargement Pelvis: No mass or ascites. Bones/Soft Tissues: No acute osseous abnormality. Postoperative changes lower lumbar spine Lower thorax: No acute process lung base. Linear atelectasis and/or scar Localizer images: IMPRESSION: Nonspecific nondistended fluid-filled loops of small bowel . No abnormal wall thickening or adjacent inflammation. Gas and feces are seen in the sigmoid colon. Leading diagnostic consideration is adynamic ileus. However, in view of previous surgery, partial small bowel obstruction cannot be entirely excluded Addiction Medicine Physician: YIN Transcribe Date/Time: Apr 06 2024 11:10A Dictated by : OSCAR GUZMÁN MD This examination was interpreted and the report reviewed and electronically signed by: OSCAR GUZMÁN MD on Apr 06 2024 11:20AM EST [id number] Normal [facility] Comprehensive metabolic 2000 panelon 04-06-2024 Albumin [Mass/Vol] 4.2 g/dL Normal 3.9-4.9 [facility] Comment on above: Order Comment: Speci men Type: BLOOD SPECIMEN Ordering Facility: [facility] Address: [address] [place] [address] Performed By: #### 2 4323-8, 3040-3 #### [facility] CLIA [id number] [address] [place] [address] [place] ALP [Catalytic activity/Vol] 82 U/L Normal 34-123 [facility] Comment on above: Order Comment: Speci men Type: BLOOD SPECIMEN Ordering Facility: [facility] Address: [address] [id number] Performed By: #### 2 4323-8, 3040-3 #### [facility] CLIA [id number] [address] [place] [address] [place] ALT With P-5'-P [Catalytic activity/Vol] 20 U/L Normal 7-38 [facility] Comment on above: Order Comment: Speci men Type: BLOOD SPECIMEN Ordering Facility: [facility] Address: [address] [place], [place] [id number] Performed By: #### 2 4323-8, 3040-3 #### [facility] CLIA [id number] [address] [place] [address] [place] Anion gap [Moles/Vol] 11 mmol/L Normal 8-15 [facility] Comment on above: Order Comment: Speci men Type: BLOOD SPECIMEN Ordering Facility: [facility] Address: [address] [place], [place] [address] Performed By: #### 2 4323-8, 3040-3 #### [facility] CLIA [id number] [address] [place] [address] [place] AST With P-5'-P [Catalytic activity/Vol] 25 U/L Normal 13-35 [facility] Comment on above: Order Comment: Speci men Type: BLOOD SPECIMEN Ordering Facility: [facility] Address: [address] [place] [address] Performed By: #### 2 4323-8, 3040-3 #### [facility] CLIA [id number] [address] [place] [address] [place] Bilirubin [Mass/Vol] 1.7 mg/dL High 0.2-1.3 [facility] Comment on above: Order Comment: Speci men Type: BLOOD SPECIMEN Ordering Facility: [facility] Address: [address] [place], [place] [phone] Performed By: #### 2 4323-8, 3040-3 #### [facility] CLIA [id number] [address] [place] [address] [place] Calcium [Mass/Vol] 9.1 mg/dL Normal 8.5-10.2 [facility] Comment on above: Order Comment: Speci men Type: BLOOD SPECIMEN Ordering Facility: [facility] Address: [address] [place] [address] Performed By: #### 2 4323-8, 3040-3 #### [facility] CLIA [id number] [address] [place] [address] [place] Chloride [Moles/Vol] 102 mmol/L Normal 98-107 [facility] Comment on above: Order Comment: Speci men Type: BLOOD SPECIMEN Ordering Facility: [facility] Address: [address] [place] [address] Performed By: #### 2 4323-8, 0-3 #### [facility] CLIA [id number] [address] [place] [address] [place] CO2 [Moles/Vol] 27 mmol/L Normal 22-30 [facility] Comment on above: Order Comment: Speci men Type: BLOOD SPECIMEN Ordering Facility: [facility] Address: [address] [place] [address] Performed By: #### 2 4323-8, 0-3 #### [facility] CLIA [id number] [address] [facility] [address] [place] Creatinine [Mass/Vol] 0.80 mg/dL Normal 0.58-0.96 [facility] Comment on above: Order Comment: Speci men Type: BLOOD SPECIMEN Ordering Facility: [facility] Address: [address] [place] [address] Performed By: #### 2 4323-8, 3040-3 #### [facility] CLIA [id number] [address] [place] [address] [place] Creatinine and Glomerular filtration rate.predicted panel (S/P/Bld) 75 mL/min/1.73m??? Normal >=60 [facility] Comment on above: Order Comment: Randy sales Type: BLOOD SPECIMEN Ordering Facility: [facility] Address: [address] [place] [address] Result Comment: Alysia mated Glomerular Filtration Rate (eGFR) is calculated using the 2020 CKD-EPI creatinine equation. This equation utilizes serum creatinine, sex, and age as parameters. The creatinine assay has traceable calibration to isotope dilution-mass spectrometry. Refer to KDIGO guidelines for clinical interpretation. In patients with unstable renal function, e.g. those with acute kidney injury, the eGFR may not accurately reflect actual GFR. Performed By: #### 2 4323-8, 3040-3 #### [facility] CLIA [id number] [address] [place] [address] [place] Glucose [Mass/Vol] 130 mg/dL High 74-99 [facility] Comment on above: Order Comment: Randy sales Type: BLOOD SPECIMEN Ordering Facility: [facility] Address: [address] [place] [address] Result Comment: The [place] Diabetes Association (ADA) provides guidance for cutoff values for fasting glucose and random glucose. The ADA defines fasting as no caloric intake for at least 8 hours. Fasting plasma glucose results between 100 to 125 mg/dL indicate increased risk for diabetes (prediabetes). Fasting plasma glucose results greater than or equal to 126 mg/dL meet the criteria for diagnosis of diabetes. In the absence of unequivocal hyperglycemia, results should be confirmed by repeat testing. In a patient with classic symptoms of hyperglycemia or hyperglycemic crisis, random plasma glucose results greater than or equal to 200 mg/dL meet the criteria for diagnosis of diabetes. Reference: Standards of Medical Care in Diabetes 2016, [place] Diabetes Association. Diabetes Care. 2016.39(Suppl 1). Performed By: #### 2 4323-8, 3040-3 #### [facility] CLIA [id number] [address] [place] [address] [place] Potassium [Moles/Vol] 3.8 mmol/L Normal 3.7-5.1 [facility] Comment on above: Order Comment: Speci men Type: BLOOD SPECIMEN Ordering Facility: [facility] Address: [address] [phone] Performed By: #### 2 4323-8, 3040-3 #### [facility] CLIA [id number] [address] [place] [address] [place] Protein [Mass/Vol] 6.6 g/dL Normal 6.3-8.0 [facility] Comment on above: Order Comment: Speci men Type: BLOOD SPECIMEN Ordering Facility: [facility] Address: [address] [place] [address] Performed By: #### 2 4323-8, 3040-3 #### [facility] CLIA [id number] [address] [place] [address] [place] Sodium [Moles/Vol] 140 mmol/L Normal 136-144 [facility] Comment on above: Order Comment: Speci men Type: BLOOD SPECIMEN Ordering Facility: [facility] Address: [address] [place] [address] Performed By: #### 2 4323-8, 3040-3 #### [facility] CLIA [id number] [address] [place] [address] [place] Urea nitrogen [Mass/Vol] 33 mg/dL High 7-21 [facility] Comment on above: Order Comment: Speci men Type: BLOOD SPECIMEN Ordering Facility: [facility] Address: [address] [place] [address] Performed By: #### 2 4323-8, 3040-3 #### [facility] CLIA [id number] [address] [place] [address] [place] ECG COMPLETEon 04-06-2024 ECG COMPLETE Ventricular Rate : 8 6 BPM Atrial Rate : 86 BPM P-R Interval : 168 ms QRS Duration : 138 ms Q-T Interval : 414 ms QTC Calculation(Bazett) : 495 ms Calculated P [place] : 59 degrees Calculated R [place] : -65 degrees Calculated T [place] : 25 degrees NORMAL SINUS RHYTHM LEFT AXIS DEVIATION RIGHT BUNDLE BRANCH BLOCK ABNORMAL ECG WHEN COMPARED WITH ECG OF 15-Jan-2022 14:13, PREMATURE SUPRAVENTRICULAR COMPLEXES ARE NO LONGER PRESENT T WAVE INVERSION NO LONGER EVIDENT IN INFERIOR LEADS Confirmed by MD DE LOS SANTOS GREGORY () on 04/07/2024 9:39:31 AM NAME : FANNIE AVALOS PID : [id number] : 1945 Gender : Female Race : ORD : [id number] Procedure Date : Apr 06 2024 17:27:11 Edit Date : Apr 07 2024 09:39:32 Diagnosis: NORMAL SINUS RHYTHM LEFT AXIS DEVIATION RIGHT BUNDLE BRANCH BLOCK ABNORMAL ECG WHEN COMPARED WITH ECG OF 15-Jan-2022 14:13, PREMATURE SUPRAVENTRICULAR COMPLEXES ARE NO LONGER PRESENT T WAVE INVERSION NO LONGER EVIDENT IN INFERIOR LEADS Confirmed by MD DE LOS SANTOS GREGORY () on 04/07/2024 9:39:31 AM Test Reason : Arrhythmia Location : 16 : 4S 0404 Overread By : MD DE LOS SANTOS GREGORY Edited By : MD DE LOS SANTOS GREGORY Referred By : IZZY MACDONALD Acquired by : [id number], [facility] ED NOTEon 04-06-2024 ED NOTE HNO ID: [id number] Author: MAGDI FLYNN RN Service: Emergency Medicine Author Type: Registered Nurse Type: ED Notes Filed: 04/06/2024 15:00 Note Text: 2nd attempt to given report, report given to Shaniqua CARRASQUILLO. [facility] ED NOTE HNO ID: [id number] Author: MAGDI FLYNN RN Service: Emergency Medicine Author Type: Registered Nurse Type: ED Notes Filed: 04/06/2024 15:01 Note Text: Attempted to call report, RN never to to phone for report, will try again [facility] ED NOTE HNO ID: [id number] Author: MAGDI FLYNN RN Service: Emergency Medicine Author Type: Registered Nurse Type: ED Notes Filed: 04/06/2024 14:49 Note Text: Report given to life care for transfer [facility] ED NOTE HNO ID: [id number] Author: MAGDI FLYNN RN Service: Emergency Medicine Author Type: Registered Nurse Type: ED Notes Filed: 04/06/2024 14:02 Note Text: Pt has no pain and no n/v/d currently [facility] ED NOTE HNO ID: [id number] Author: ERIN VALDIVIA, FOREIGN Service: ? Author Type: Registered Nurse Type: ED Notes Filed: 04/06/2024 13:53 Note Text: Ramone 404-2 Normal [facility] ED PROV NOTEon 04-06-2024 ED PROV NOTE HNO ID: [id number] Author: IZZY MACDONALD DO Service: Emergency Medicine Author Type: Physician Type: ED Provider Notes Filed: 04/06/2024 12:56 Note Text: ED Provider Note Patient Name: Fannie Avalos : 1945 SERVICE DATE: 04/06/24 History Patient presents with: Nausea AND Vomiting Diarrhea Headache Abdominal Pain Back Pain Fannie Avalos is a 78 year old female with history of multiple chronic medical problems who presents with Nausea AND Vomiting and Diarrhea. - Symptoms began last night. - Severity: moderate - Timing: constant - Quality: watery, non-bloody - Symptoms are associated with lower abdominal pain. - Symptoms are not associated with chest pain, chills, fever, shortness of breath, syncope, hematemesis, melena, hematochezia, dysuria, hematuria, flank pain, headache (patient denies headache to me when specifically asked). Patient presents saying that she has had multiple episodes of watery diarrhea and emesis since last night. She denies any blood in the emesis or stool. She reports lower abdominal pain. She states that she has had no known fever. No dysuria or hematuria. No flank pain. She denies any syncope. No chest pain or shortness of breath. She denies headache to me when asked. She denies any recent suspicious food intake. No recent antibiotic use. She states no other family has the symptoms. No recent travel. She states she did have similar symptoms in the past when she was in [place] and states they were unsure as to why she had the symptoms. She has had a prior cholecystectomy, hysterectomy, and partial colectomy after bowel perforation in the past. 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 CERVICAL SPONDYLOSIS 02/26/2005 Diarrhea Diverticulosis of colon 01/06/2009 Esophageal reflux Hemorrhage of rectum and anus 12/02/2017 HEMORRHOIDS NOS 11/30/2008 HYPERLIPIDEMIA NEC/NOS 03/18/2005 IBS (irritable bowel syndrome) 01/26/2013 Incontinence of feces 11/30/2008 Incontinence of feces 03/09/2021 Osteopenia Palpitations 01/13/2012 Perforation of large intestine (HCC) 12/03/2017 Primary osteoarthritis of left hip 03/01/2024 Spondylosis, 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 TIA (transient ischemic attack) 06/17/2017 [place], [place] PAST SURGICAL HISTORY Procedure Laterality Date CHOLECYSTECTOMY HX 03/2018 COLONOSCOPY FLX DX W/COLLJ SPEC WHEN PFRMD 10/20/2003 Colonoscopy COLONOSCOPY FLX DX W/COLLJ SPEC WHEN PFRMD 01/06/2009 Extensive diverticulosis/hemorrhoids COLONOSCOPY FLX DX W/COLLJ SPEC WHEN PFRMD 07/24/2012 Colonoscopy [place] COLSC FLEXIBLE W/CONTROL BLEEDING ANY METHOD 12/02/2017 laser of cecal AVM DRAIN ABDOMINAL ABSCESS, PERCUTANEOUS 12/15/2017 perianastomotic abscess EGD 12/02/2017 ESOPHAGOGASTRODUODENOSCOPY TRANSORAL DIAGNOSTIC 07/03/2012 EGD [place] GAMMA KNIFE 1FX TX DELIVERY 02/12/2022 x 3 on 01/15/22; 01/29/22; 02/12/22 HEMORRHOIDECTOMY INT AND XTRNL 2/> COLUMN/HI 10/26/2009 LAMINECTOMY W/RMVL ABNORMAL FACETS LUMBAR 07/08/2011 [place], [place] LAPAROSCOPY COLECTOMY PARTIAL W/ANASTOMOSIS 02/02/2009 LAPAROSCOPY COLECTOMY PARTIAL W/ANASTOMOSIS Right 12/03/2017 LAPS MOBLJ SPLENIC FLXR PFRMD W/PRTL COLECTOMY 02/02/2009 PAST SURGICAL HISTORY OF 1964 ovarian cyst removed PAST SURGICAL HISTORY OF 2001 BREAST BIOPSY--BENIGN PAST SURGICAL HISTORY OF 03/28/2018 Gallbladder removed SIGMOIDOSCOPY FLX CONTROL BLEEDING 03/22/2009 Granulation tissue at anastomosis SIGMOIDOSCOPY FLX W/BIOPSY SINGLE/MULTIPLE 02/28/2011 TOTAL ABDOMINAL HYSTERECT W/WO RMVL TUBE OVARY 02/1990 Hysterectomy, TERI, BSO FAMILY HISTORY Problem Relation Age of Onset Breast Cancer Mother dec. age 88 Blood Disease Father PE, post MVA, dec. 53yo Breast Cancer Sister Myositis Sister Inclusion Body Myositis None Sister Alzheimer's Disease Sister other (multiple myeloma) Brother Social History Tobacco Use Smoking status: Never Smokeless tobacco: Never Vaping Use Vaping status: Never Used Substance and Sexual Activity Alcohol use: No Drug use: No Sexual activity: Not on file ALLERGIES Allergen Reactions Bactrim [Sulfametho* GI Upset nausea Clindamycin Hcl GI Upset Flagyl [Metronidazo* GI Upset Gadolinium-Containi* Hives Gadolinium/Gadavist Trimethoprim Vomiting Levofloxacin GI Upset Review of Systems Constitutional: Negative for chills and fever. HENT: Negative for trouble swallowing. Respiratory: Negative for shortness of breath. Cardiovascular: Negative for chest pain. Gastrointestinal: Positive for abdominal pain, diarrhea, nausea and vomiting. Negative for anal bleeding and blood in stool. Genitourina (more content not included)... Normal [facility] FECAL LACTOFERRIN/LEUKOCYTES on 04-06-2024 Lactoferrin IA Ql (Stl) Positive for lactoferrin, which may indicate presence of fecal white blood cells Abnormal Negative [facility] Comment on above: Order Comment: Speci men Type: STOOL SPECIMENOrdering Facility: [facility] Address: [address] [place] [address] Performed By: #### 5 4067-4, FECWBC ####[facility] [id number] [place] [address] [place] Gastrointestinal pathogens i dentified DAR+probe Nom (Stl)on 04-06-2024 Campylobacter sp DNA DAR+probe Nom (Unsp spec) Not detected Normal Not Detected [facility] Comment on above: Order Comment: Speci men Type: STOOL SPECIMENOrdering Facility: [facility] Address: [address] [place] [address] Performed By: #### 7 9390-1 ####[facility] [id number] [place] [address] [place] Salmonella sp DNA DAR+probe Ql (Unsp spec) Not detected Normal Not Detected [facility] Comment on above: Order Comment: Speci men Type: STOOL SPECIMENOrdering Facility: [facility] Address: [address] [place] [address] Performed By: #### 7 9390-1 ####[facility] [id number] [address] [place] Shiga toxin stx gene DAR+probe Nom (Unsp spec) Not detected Normal Not Detected [facility] Comment on above: Order Comment: Speci men Type: STOOL SPECIMENOrdering Facility: [facility] Address: [address] [place] [address] Performed By: #### 7 9390-1 ####[facility] [id number] [address] [place] Shigella sp DNA DAR+probe Ql (Unsp spec) Not detected Normal Not Detected [facility] Comment on above: Order Comment: Speci men Type: STOOL SPECIMENOrdering Facility: [facility] Address: [address] [place] [address] Performed By: #### 7 9390-1 ####[facility] [id number] [address] [place] HISTORY PHYSICALon HISTORY PHYSICAL HNO ID: [id number] Author: CHRISTOPHER MILES MD Service: Hospital Medicine Author Type: Physician Type: H&P Filed: 04/06/2024 16:39 Note Text: DEPARTMENT OF HOSPITAL MEDICINE HISTORY AND PHYSICAL EXAM SERVICE DATE: 04/06/2024 SERVICE TIME: 4:36 PM Primary Care Physician: Gavin Tran MD NIGHT AND WEEKEND COVERAGE: [facility] C[facility]: Days: [phone], please page attending physician. Nights: [phone], please page [place] [facility] Night coverage pager [phone]. Subjective CHIEF COMPLAINT: Nausea vomiting diarrhea and abdominal pain HPI: This is a 78 year old female with PMH significant for HLD, OA, bowel perforation x 2 after colonoscopy presented to the ER on 04/06/2024 with a complaint of nausea, vomiting, diarrhea and abdominal pain which started last night. as per the patient her symptoms started shortly before midnight she had about 8-10 episodes of loose stools which was followed by nonstop vomiting for 2 hours. She decided to go to the ER in the morning to seek help. She had 1 episode of loose stool in the ER and 2 episodes of vomiting in the ER. [place] [address], pulse of 97/min, temp of 98.6F, RR of 20/min, 100% on room air. Labs were remarkable for total bilirubin of 1.7, lipase was normal. UA was slightly cloudy with trace leukocyte esterase, 2+ protein CT abdomen and pelvis showed nonspecific nondistended fluid-filled loops of small bowel no abnormal wall thickening likely secondary to adynamic ileus however partial SBO cannot be ruled out. She was transferred [facility] evaluation and care. 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 CERVICAL SPONDYLOSIS 02/26/2005 Diarrhea Diverticulosis of colon 01/06/2009 Esophageal reflux Hemorrhage of rectum and anus 12/02/2017 HEMORRHOIDS NOS 11/30/2008 HYPERLIPIDEMIA NEC/NOS 03/18/2005 IBS (irritable bowel syndrome) 01/26/2013 Incontinence of feces 11/30/2008 Incontinence of feces 03/09/2021 Osteopenia Palpitations 01/13/2012 Perforation of large intestine (HCC) 12/03/2017 Primary osteoarthritis of left hip 03/01/2024 Spondylosis, 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 TIA (transient ischemic attack) 06/17/2017 [place], [place] PAST SURGICAL HISTORY Procedure Laterality Date CHOLECYSTECTOMY HX 03/2018 COLONOSCOPY FLX DX W/COLLJ SPEC WHEN PFRMD 10/20/2003 Colonoscopy COLONOSCOPY FLX DX W/COLLJ SPEC WHEN PFRMD 01/06/2009 Extensive diverticulosis/hemorrhoids COLONOSCOPY FLX DX W/COLLJ SPEC WHEN PFRMD 07/24/2012 Colonoscopy in [place] COLSC FLEXIBLE W/CONTROL BLEEDING ANY METHOD 12/02/2017 laser of cecal AVM DRAIN ABDOMINAL ABSCESS, PERCUTANEOUS 12/15/2017 perianastomotic abscess EGD 12/02/2017 ESOPHAGOGASTRODUODENOSCOPY TRANSORAL DIAGNOSTIC 07/03/2012 [place] GAMMA KNIFE 1FX TX DELIVERY 02/12/2022 x 3 on 01/15/22; 01/29/22; 02/12/22 HEMORRHOIDECTOMY INT AND XTRNL 2/> COLUMN/HI 10/26/2009 LAMINECTOMY W/RMVL ABNORMAL FACETS LUMBAR 07/08/2011 [place], [place] LAPAROSCOPY COLECTOMY PARTIAL W/ANASTOMOSIS 02/02/2009 LAPAROSCOPY COLECTOMY PARTIAL W/ANASTOMOSIS Right 12/03/2017 LAPS MOBLJ SPLENIC FLXR PFRMD W/PRTL COLECTOMY 02/02/2009 PAST SURGICAL HISTORY OF 1963 ovarian cyst removed PAST SURGICAL HISTORY OF 2001 BREAST BIOPSY--BENIGN PAST SURGICAL HISTORY OF 03/28/2018 Gallbladder removed SIGMOIDOSCOPY FLX CONTROL BLEEDING 03/22/2009 Granulation tissue at anastomosis SIGMOIDOSCOPY FLX W/BIOPSY SINGLE/MULTIPLE 02/28/2011 TOTAL ABDOMINAL HYSTERECT W/WO RMVL TUBE OVARY 02/1990 Hysterectomy, TERI, BSO FAMILY HISTORY Problem Relation Age of Onset Breast Cancer Mother dec. age 88 Blood Disease Father PE, post MVA, dec. 53yo Breast Cancer Sister Myositis Sister Inclusion Body Myositis None Sister Alzheimer's Disease Sister other (multiple myeloma) Brother Social History Tobacco Use Smoking status: Never Smokeless tobacco: Never Vaping Use Vaping status: Never Used Substance Use Topics Alcohol use: No Drug use: No PRIOR TO ADMISSION MEDICATIONS: atorvastatin (LIPITOR) 40 mg tablet, TAKE 1 TABLET EVERY DAY AT BEDTIME FOR CHOLESTEROL, Disp: 90 tablet, Rfl: 3, 04/05/2024 carvedilol (COREG) 3.125 mg tablet, , Disp: , Rfl: , 04/05/2024 Cholecalciferol, Vitamin D3, 25 mcg (1,000 unit) cap, Take 1 capsule by mouth once daily., Disp: , Rfl: , 04/05/2024 VITAMIN E 200 UNIT CAP, Take 200 Units by mouth once daily., Disp: , Rfl: 0, 04/05/2024 MULTIVITAMIN TAB, Take one(1) tablet daily., Disp: , Rfl: 0, 04/05/2024 ASPIRIN 81 MG TAB, Take 81 mg by mouth once daily., Disp: , Rfl: 0, 04/05/2024 meclizine (ANTIVERT) 12.5 mg tab, Take 2 tablets by mouth three times a day as needed., Disp: 15 ta (more content not included)... Normal [facility] Lactate (Bld) [Moles/Vol]on 04-06-2024 Lactate [Moles/Vol] 1.9 mmol/L Normal 0.5-2.2 [facility] Comment on above: Order Comment: Speci men Type: BLOOD SPECIMENOrdering Facility: [facility] Address: [address] [place] [address] Performed By: #### 3 2693-4 ####[facility] [id number] [place] [address] [place] Lipase SerPl-cCncon 04-06-20 Lipase [Catalytic activity/Vol] 24 U/L Normal 16-61 [facility] Comment on above: Order Comment: Speci men Type: BLOOD SPECIMENOrdering Facility: [facility] Address: [address] [place] [address] Performed By: #### 2 4323-8, 3040-3 ####[facility] [id number] [place] [address] [place] Magnesium SerPl-mCncon 04-06 Magnesium [Mass/Vol] 1.8 mg/dL Normal 1.7-2.3 [facility] Comment on above: Order Comment: Speci men Type: BLOOD SPECIMENOrdering Facility: [facility] Address: [address] [place] [address] Performed By: #### 1 9123-9, 2777-1 ####[facility] [id number] [place] [id number] [place] OCCULT BLD EXAM-DIAGon 04-06 OCCULT BLD EXAM-DIAG Negative Normal [facility] Comment on above: Performed By: #### O BDX ####[facility] [id number] [place] [id number] [place] Phosphate SerPl-mCncon 04-06 Phosphate [Mass/Vol] 2.4 mg/dL Low 2.7-4.8 [facility] Comment on above: Order Comment: Speci men Type: BLOOD SPECIMENOrdering Facility: [facility] Address: [address] [place] [address] Performed By: #### 1 9123-9, 2777-1 ####[facility] [id number] [place] [address] [place] Urinalysis complete panel (U )on 04-06-2024 Bacteria LM.HPF (Urine sed) [#/Area] Moderate Abnormal None Seen [facility] Comment on above: Order Comment: Speci men Type: URINE SPECIMEN [facility] Address: [address] [place] [address] Performed By: #### 2 4356-8 #### [facility] CLIA [id number] [address] [place] [address] [facility] Bilirubin Ql (U) 1+ Abnormal Negative [facility] Comment on above: Order Comment: Speci men Type: URINE SPECIMEN [facility] Address: [address] [place] [address] Result Comment: Sugg est correlation with clinical findings and serum bilirubin if clinically indicated. Performed By: #### 2 4356-8 #### [facility] CLIA [id number] [address] [place] [address] [facility] Clarity (Unsp spec) Slightly Cloudy Abnormal Clear [facility] Comment on above: Order Comment: Speci men Type: URINE SPECIMEN Ordering Facility: [facility] Address: [address] [place] [address] Performed By: #### 2 4356-8 #### [facility] CLIA [id number] [address] [place] [address] [facility] Color (U) Yellow Normal Yellow [facility] Comment on above: Order Comment: Speci men Type: URINE SPECIMEN Ordering Facility: [facility] Address: [address] [place] [address] Performed By: #### 2 4356-8 #### [facility] CLIA [id number] [address] [place] [address] [facility] Epithelial cells LM.HPF (Urine sed) [#/Area] Few Normal [facility] Comment on above: Order Comment: Speci men Type: URINE SPECIMEN Ordering Facility: [facility] Address: [address] [place] [address] Result Comment: Few Performed By: #### 2 4356-8 #### [facility] CLIA [id number] [address] [place] [address] [facility] Glucose Test strip (U) [Mass/Vol] Negative Normal Negative [facility] Comment on above: Order Comment: Speci men Type: URINE SPECIMEN Ordering Facility: [facility] Address: [address] [place] [address] Performed By: #### 2 4356-8 #### [facility] CLIA [id number] [address] [place] [id number] [facility] Hemoglobin Ql (U) Negative Normal Negative [facility] Comment on above: Order Comment: Speci men Type: URINE SPECIMEN Ordering Facility: [facility] Address: [address] [place] [address] Performed By: #### 2 4356-8 #### [facility] CLIA [id number] [address] [place] [address] [place] Hyaline casts (Urine sed) [#/Area] 4-10 /LPF Abnormal 0 /LPF [facility] Comment on above: Order Comment: Speci men Type: URINE SPECIMEN Ordering Facility: [facility] Address: [address] [place] [address] Performed By: #### 2 4356-8 #### [facility] CLIA [id number] [address] [place] [id number] [facility] Ketones Ql (U) Trace Abnormal Negative [facility] Comment on above: Order Comment: Speci men Type: URINE SPECIMEN Ordering Facility: [facility] Address: [address] [place] [address] Performed By: #### 2 4356-8 #### [facility] CLIA [id number] [address] [place] [address] [facility] Leukocyte esterase Test strip Ql (U) Trace Abnormal Negative [facility] Comment on above: Order Comment: Speci men Type: URINE SPECIMEN Ordering Facility: [facility] Address: [address] [place] [address] Performed By: #### 2 4356-8 #### [facility] CLIA [id number] [address] [place] [address] [place] Nitrite Ql (U) Negative Normal Negative [facility] Comment on above: Order Comment: Speci men Type: URINE SPECIMEN Ordering Facility: [facility] Address: [address] [place] [address] Performed By: #### 2 4356-8 #### [facility] CLIA [id number] [address] [place] [address] [facility] pH (U) 5.5 [pH] Normal 5.0-8.0 [facility] Comment on above: Order Comment: Speci men Type: URINE SPECIMEN Ordering Facility: [facility] Address: [address] [place] [address] Performed By: #### 2 4356-8 #### [facility] CLIA [id number] [address] [place] [address] [facility] Protein (U) [Mass/Vol] 2+ Abnormal Negative [facility] Comment on above: Order Comment: Speci men Type: URINE SPECIMEN Ordering Facility: [facility] Address: [address] [place] [address] Performed By: #### 2 4356-8 #### [facility] CLIA [id number] [address] RBC LM.HPF (Urine sed) [#/Area] 0-3 /HPF Normal 0-3 /HPF [facility] Comment on above: Order Comment: Speci men Type: URINE SPECIMEN Ordering Facility: [facility] Address: [address] [place] [address] Performed By: #### 2 4356-8 #### [facility] CLIA [id number] [address] [place] [address] [place] Specific gravity (U) [Rel density] 1.020 Normal 1.005-1.03 0 [facility] Comment on above: Order Comment: Speci men Type: URINE SPECIMEN Ordering Facility: [facility] Address: [address] [place] [address] Performed By: #### 2 4356-8 #### [facility] CLIA [id number] [address] [place] [address] [place] Urobilinogen Ql (U) 0.2 EU/dL Normal 0.2-1.0 EU/dL [facility] Comment on above: Order Comment: Speci men Type: URINE SPECIMEN Ordering Facility: [facility] Address: [address] [place] [address] Performed By: #### 2 4356-8 #### [facility] CLIA [id number] [address] [place] [address] [place] WBC LM.HPF (Urine sed) [#/Area] 0-5 /HPF Normal 0-5 /HPF [facility] Comment on above: Order Comment: Speci men Type: URINE SPECIMEN Ordering Facility: [facility] Address: [address] [place] [address] Performed By: #### 2 4356-8 #### [facility] CLIA [id number] [address] [place] [address] [place] Lipid 1996 panelon 4 Cholesterol [Mass/Vol] 137 mg/dL Normal <200 [facility] Comment on above: Order Comment: Speci men Type: BLOOD SPECIMENOrdering Facility: [facility] Address: [address] [place] [address] Result Comment: <200 mg/dL, Desirable 200-239 mg/dL, Borderline high >239 mg/dL, High Performed By: #### 2 4331-1 ####[facility] [id number] [address] [id number] [place] [address] [place] Cholesterol in HDL [Mass/Vol] 74 mg/dL Normal >39 [facility] Comment on above: Order Comment: Speci men Type: BLOOD SPECIMENOrdering Facility: [facility] Address: [address] [place] [address] Result Comment: 40-5 9 mg/dL, Acceptable >59 mg/dL, High: Negative risk factor for coronary heart disease <40 mg/dL, Low: Positive risk factor for coronary heart disease Performed By: #### 2 4331-1 ####[facility] LABCLIA [id number] [address] [id number] [address] [place] Cholesterol in LDL [Mass/Vol] 48 mg/dL Normal <100 [facility] Comment on above: Order Comment: Dustini men Type: BLOOD SPECIMENOrdering Facility: [facility] Address: [address] [place] [address] Result Comment: <100 mg/dL, Optimal 100-129 mg/dL, Near optimal/above optimal 130-159 mg/dL, Borderline high 160-189 mg/dL, High >189 mg/dL, Very high Secondary prevention optimal LDL Cholesterol levels are recommended to be < 70 mg/dL Performed By: #### 2 4331-1 ####[facility]IA [id number] [address] [id number] [address] [place] Cholesterol in LDL/Cholesterol in HDL [Mass ratio] 0.65 {ratio} Normal <2.54 [facility] Comment on above: Order Comment: Speci men Type: BLOOD SPECIMENOrdering Facility: [facility] Address: [address] [place] [address] Result Comment: Rula contreras: 1. National Cholesterol Education Program ATP III Guideline At-A-Glance Quick Desk Reference: National Heart, Lung, and Blood Eleva. National Institutes of Health. 2001: NIH Publication No. 01-3305. 2. An International Atherosclerosis Society position paper: global recommendations for the management of dyslipidemia: executive summary, Atherosclerosis. 2014: 232(2):410-413. Performed By: #### 2 4331-1 ####[facility] LABCLIA [id number] [id number] [place] [address] [place] Cholesterol in VLDL [Mass/Vol] 15 mg/dL Normal <30 [facility] Comment on above: Order Comment: Speci men Type: BLOOD SPECIMENOrdering Facility: [facility] Address: [address] [place] [address] Performed By: #### 2 4331-1 ####[facility]CLIA [id number] [address] [id number] [place] [address] [place] [facility] Cholesterol non HDL [Mass/Vol] 63 mg/dL Normal <130 [facility] Comment on above: Order Comment: Speci men Type: BLOOD SPECIMENOrdering Facility: [facility] Address: [address] [place] [address] Result Comment: <130 mg/dL, Optimal 130-159 mg/dL, Near optimal/above optimal 160-189 mg/dL, Borderline high 190-219 mg/dL, High >219 mg/dL, Very high Secondary prevention optimal non HDL Cholesterol levels are recommended to be <100 mg/dL Performed By: #### 2 4331-1 ####[facility] LABCLIA [id number] [address] [id number] [place] [address] [place] Cholesterol.total/Chol esterol in HDL [Mass ratio] 1.85 {ratio} Normal <5.10 [facility] Comment on above: Order Comment: Speci men Type: BLOOD SPECIMENOrdering Facility: [facility] Address: [address] [place], [place] [address] Performed By: #### 2 4331-1 ####[facility]IA [id number] [address] [id number] [place] [address] [place] FASTING TIME 12 hrs Normal [facility] Comment on above: Order Comment: Speci men Type: BLOOD SPECIMENOrdering Facility: [facility] Address: [address] [place] [address] Performed By: #### 2 4331-1 ####[facility] LABCLIA [id number] [place] [id number] [facility] [id number] [place] [address] [place] Triglyceride [Mass/Vol] 73 mg/dL Normal <150 [facility] Comment on above: Order Comment: Speci men Type: BLOOD SPECIMENOrdering Facility: [facility] Address: [address] [place], [place] [address] Result Comment: <150 mg/dL, Normal 150-199 mg/dL, Borderline high 200-499 mg/dL, High >499 mg/dL, Very high Performed By: #### 2 4331-1 ####[facility] LABCLIA [id number] [place] [id number] [facility] [id number] [place] [address] [place] CNOVon 03-29-2024 CNOV Office Visit (INTMWS ) FANNIE AVALOS ([id number]) 1945 F Date Time Provider Department 03/29/24 12:40 PM GAVIN TRAN INTMWS During your visit today, we recorded the following information about you: Temperature Pulse Blood pressure Weight 98.2 degrees 68/minute 118/66 62.5 kg Height 1.6 m Gavin Tran MD 03/29/2024 3:06 PM Signed Fannie Avalos is a 78 year old female here for a Medicare wellness visit. Medicare Health Risk Assessment General Health Good Exercise: Minutes/Day 30 min Exercise: Days/Week 2 days Alcohol: Daily Use Never Alcohol: Drinks/Day Patient does not drink Alcohol: 6 or more drinks Never Feel off balance Yes Concerns: Teeth/Dentures No Concerns: Sexual function No Troubled by feelings None of the above Frequency: Eating healthy diet Nearly every day ADLs requiring help None of the above Safety precautions in home/vehicle Yes Smoke, vape, chews tobacco No Difficulty hearing No Difficulty seeing No Current Providers Specialists: I have reviewed specialist-related care of the patient in the medical record. Current care team: Patient Care Team: Gavin Tran MD as PCP - General (Internal Medicine) Catina Reddy, ALFREDO.FINANCE SPECIALIST as Cdl Program Coordinator (Internal Medicine) Bernabe Cox MD (Neurosurgery) Dr. Hawk Crump, (Ophthalmology). Dr. Lisandro Gomez, ([facility], cardiology). [place] physicians as needed. Medical/Family history review Reviewed and updated problem list, medical/surgical/family/soci al history, medications, and allergies. Opioid use review Opioid Medications (last 90 days) No data to display Depression Screening DEPRESSION SCREENING Ordered at: 03/29/24 1257 Based on score and interview, patient is: Not at risk for depression Screening tool discussed with patient, and I recommend: No further intervention at this time PHQ-2 Score: 0 ANXIETY SCREENING Ordered at: 03/29/24 1257 Based on score and interview, patient is: Not at risk for anxiety Screening tool discussed with patient, and I recommend: No further intervention at this time MODESTA-2 Score: 0 Cognitive screening Mini Cog Score: 5 Cognitive screening reviewed and No further action needed (score 3-5). Functional Observation Was the patient's Timed Up AND Go test unsteady or >= 12 seconds? No Advance Care Planning Patient was not able to provide a surrogate decision maker or written advance directives Measurements BP 118/66 (BP Site: Left Arm, BP Position: Sitting, BP Cuff Size: Large Adult) Pulse 68 Temp 36.8 ?C (98.2 ?F) (Temporal) Ht 160 cm (5' 3) Wt 62.5 kg (137 lb 12.6 oz) BMI 24.41 kg/m? Vision Screening: Follows with optometry/ophthalmology Right: 20/50 Left: 20/ 50 Both: 20/40 Assessment/Plan Medicare annual wellness visit, subsequent (Z00.00) - Counseled on healthy diet and regular exercise - Fall avoidance information provided - Personalized prevention plan provided - Vaccine recommendations reviewed. Gavin Tran MD 03/29/2024 3:06 PM Signed This note was created using Arsanister. Saul Avalos is a 78 year old female was here with [facility] for follow up. She was undergoing PT for left leg weakness and osteoarthritis. She felt some improvement to date. Her lipids were controlled. She started having right arm and hand pain at night one month ago, and it seemed shaking her hand helped. A family member who was a PT recommended she use a splint on her wrist and this has significantly improved her symptoms. Review of Systems Constitutional: Negative for fatigue and fever. Respiratory: Negative for cough and shortness of breath. Cardiovascular: Negative for chest pain, palpitations and leg swelling. Neurological: See HPI. 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 alendronate (FOSAMAX) 70 mg tablet Take 1 tablet by mouth one time a week. Take with a full glass of water, on an empty stomach; do NOT lie down for 30minutes. cetirizine (ZYRTEC) 10 mg tablet Take 10 mg by mouth once daily. naproxen (NAPROSYN) 500 mg tablet Take 1 tablet by mouth two times a day with meals. fluticasone (more content not included)... Normal [facility] SCREENINGon 03-26-2024 [facility] SCREENING * * *Final Report* * * DATE OF EXAM: Mar 26 2024 9:25AM [facility] 0581 - [facility] SCREENING / PROCEDURE REASON: Screening mammogram for breast cancer * * * * Physician Interpretation * * * * RESULT: [place] [address] #[id number] - [facility] SCREENING HISTORY: Patient is 78 years old and is seen for screening and is asymptomatic in both breasts. Patient states no personal history of breast cancer. Patient states no personal history of other cancers. COMPARISON STUDIES: The present examination has been compared to prior imaging studies dated 02/23/2019 (mammogram), 02/28/2020 (mammogram), 02/28/2021 (mammogram), 03/05/2022 (mammogram) and 03/24/2023 (mammogram). MAMMOGRAM TECHNIQUE: The study was acquired using full field digital technology and interpreted from soft copy. Computer-aided detection was utilized by the radiologist in the interpretation of this examination. MAMMOGRAM FINDINGS: There are scattered areas of fibroglandular density. There are stable post-operative changes in the left breast. No suspicious masses, calcifications or other abnormalities are seen in either breast. IMPRESSION: There is no mammographic evidence of malignancy. Routine screening mammogram is recommended. Annual mammogram will be due in 1 year. BI-RADS Category 2: Benign RISK: Based on the Tyrer-Cuzick (TC) risk assessment model, this patient has a 2.1% lifetime risk of developing breast cancer, meaning they are at average risk for developing breast cancer. However, this is only an estimate based on available history provided on the patient's questionnaire. We encourage all patients to talk with their providers about these results, further recommendations for managing breast health, and appropriate supplemental screening options if the patient has dense breast tissue. Interpreting Radiologist: Jennifer Priest M.D. Electronically signed on: 03/26/2024 Addiction Medicine Physician: JOYCE Transcribe Date/Time: Mar 26 2024 9:12A Dictated by: JENNIFER PRIEST MD This examination was interpreted and the report reviewed and electronically signed by: JENNIFER PRIEST MD on Mar 26 2024 12:07PM EST [id number] Normal [facility] Breast Screeningon 2023 IMPRESSION: There is no mammographic evidence of malignancy. Routine screening mammogram is recommended. Annual mammogram will be due in 1 year. BI-RADS Category 2: Benign RISK: Based on the Tyrer-Cuzick (TC) risk assessment model, this patient has a 2.1% lifetime risk of developing breast cancer, meaning they are at average risk for developing breast cancer. However, this is only an estimate based on available history provided on the patient's questionnaire. We encourage all patients to talk with their providers about these results, further recommendations for managing breast health, and appropriate supplemental screening options if the patient has dense breast tissue. Interpreting Radiologist: Jennifer Priest M.D. Electronically signed on: 03/26/2024 Addiction Medicine Physician: JOYCE Legerriluis alfredo Date/Time: Mar 26 2024 9:12A Dictated by: JENNIFER PRIEST MD This examination was interpreted and the report reviewed and electronically signed by: JENNIFER PRIEST MD on Mar 26 2024 12:07PM EST DIVISION OF RADIOLOGY * * *Final Report* * * DATE OF EXAM: Mar 26 2024 9:25AM [facility] 0581 - [place] SCREENING / PROCEDURE REASON: Screening mammogram for breast cancer * * * * Physician Interpretation * * * * RESULT: [place] [address] [place] [address] #[id number] - [place] SCREENING HISTORY: Patient is 78 years old and is seen for screening and is asymptomatic in both breasts. Patient states no personal history of breast cancer. Patient states no personal history of other cancers. COMPARISON STUDIES: The present examination has been compared to prior imaging studies dated 02/23/2019 (mammogram), 02/28/2020 (mammogram), 02/28/2021 (mammogram), 03/05/2022 (mammogram) and 03/24/2023 (mammogram). MAMMOGRAM TECHNIQUE: The study was acquired using full field digital technology and interpreted from soft copy. Computer-aided detection was utilized by the radiologist in the interpretation of this examination. MAMMOGRAM FINDINGS: There are scattered areas of fibroglandular density. There are stable post-operative changes in the left breast. No suspicious masses, calcifications or other abnormalities are seen in either breast. DIVISION OF RADIOLOGY Provider, [facility] - 03/26/2024 * * *Final Report* * * DATE OF EXAM: Mar 26 2024 9:25AM [facility] 0581 - [facility] SCREENING / PROCEDURE REASON: Screening mammogram for breast cancer * * * * Physician Interpretation * * * * RESULT: [address] [address] #[id number] - [place] SCREENING HISTORY: Patient is 78 years old and is seen for screening and is asymptomatic in both breasts. Patient states no personal history of breast cancer. Patient states no personal history of other cancers. COMPARISON STUDIES: The present examination has been compared to prior imaging studies dated 02/23/2019 (mammogram), 02/28/2020 (mammogram), 02/28/2021 (mammogram), 03/05/2022 (mammogram) and 03/24/2023 (mammogram). MAMMOGRAM TECHNIQUE: The study was acquired using full field digital technology and interpreted from soft copy. Computer-aided detection was utilized by the radiologist in the interpretation of this examination. MAMMOGRAM FINDINGS: There are scattered areas of fibroglandular density. There are stable post-operative changes in the left breast. No suspicious masses, calcifications or other abnormalities are seen in either breast. IMPRESSION IMPRESSION: There is no mammographic evidence of malignancy. Routine screening mammogram is recommended. Annual mammogram will be due in 1 year. BI-RADS Category 2: Benign RISK: Based on the Tyrer-Cuzick (TC) risk assessment model, this patient has a 2.1% lifetime risk of developing breast cancer, meaning they are at average risk for developing breast cancer. However, this is only an estimate based on available history provided on the patient's questionnaire. We encourage all patients to talk with their providers about these results, further recommendations for managing breast health, and appropriate supplemental screening options if the patient has dense breast tissue. Interpreting Radiologist: Jennifer Priest M.D. Electronically signed on: 03/26/2024 Addiction Medicine Physician: JOYCE Transcribe Date/Time: Mar 26 2024 9:12A Dictated by: JENNIFER PRIEST MD This examination was interpreted and the report reviewed and electronically signed by: JENNIFER PRIEST MD on Mar 26 2024 12:07PM EST [facility] Radiology Study observation (narrative) [facility] MG Breast ScreeningOrdered B y: [facility] Provider on 03-26-2024 [facility] CNTHERAPYon 03-24-2024 CNTHERAPY OT/PT/Speech Visit ( PTWS) FANNIE AVALOS ([id number]) 1945 F Date Time Provider Department 03/24/24 8:00 AM [facility] PTWS Date Time Provider Department Center 03/24/2024 8:00 AM [id number] [facility] PTWS [place] Reason for Visit: PT Progress Note [7936] Primary Visit Diagnosis:Primary osteoarthritis of left hip [M16.12] Other Visit Diagnosis:Left leg weakness [R29.898] Allergies As of Date: 03/24/2024 Noted Allergy Reaction BACTRIM (SULFAMETHOXAZOLE-TRIMETH*11 /10/2004 8 - GI Upset Comments: nausea CLINDAMYCIN HCL 09/25/2010 8 - GI Upset FLAGYL (METRONIDAZOLE HCL) 10/19/2009 8 - GI Upset GADOLINIUM-CONTAINING CONTRAST ME*10/28/2017 4 - Hives Comments: Gadolinium/Gadavist TRIMETHOPRIM 12/30/2018 11 - Vomiting LEVOFLOXACIN 12/30/2018 8 - GI Upset Date Reviewed: 02/28/2024 Reviewed by: Austin Nicolas LPN - Fully Assessed Prescriptions as of 03/24/2024 - atorvastatin (LIPITOR) 40 mg tablet TAKE 1 TABLET EVERY DAY AT BEDTIME FOR CHOLESTEROL - meclizine (ANTIVERT) 12.5 mg tab Take 2 tablets by mouth three times a day as needed. - alendronate (FOSAMAX) 70 mg tablet Take 1 tablet by mouth one time a week. Take with a full glass of water, on an empty stomach; do NOT lie down for 30minutes. - cetirizine (ZYRTEC) 10 mg tablet Take 10 mg by mouth once daily. - naproxen (NAPROSYN) 500 mg tablet Take 1 tablet by mouth two times a day with meals. - fluticasone (FLONASE) 50 mcg/actuation nasal spray Use 2 Sprays in each nostril once daily. Rinse mouth after use. - carvedilol (COREG) 3.125 mg tablet - Cholecalciferol, Vitamin D3, 25 mcg (1,000 unit) cap Take 1 capsule by mouth once daily. - VITAMIN E 200 UNIT CAP Take 200 Units by mouth once daily. - Perry-3 Fatty Acids (FISH OIL) ORAL Cap Take one(1) capsule daily. - MULTIVITAMIN TAB Take one(1) tablet daily. - CALCIUM + D 600 MG-200 UNIT TAB Take one(1) tablet daily. - ASPIRIN 81 MG TAB Take 81 mg by mouth once daily. Base Engineer: Therapy (PT/OT/Speech/Resp) ID: [id number] 03/24/2024 8:37 AM Author: KB [facility] Signed by KB RUGGIERO PT on 03/24/2024 at 8:37 AM Document text: Program_ID:[id number] Access Code: [email or web address] URL: [email or web address] Date: 03-24-2024 Prepared By: Kb Ruggiero Program Notes Exercises - Seated Hamstring Stretch - 1-2 x daily - 7 x weekly - sets - 3 reps - Seated March with isometric abdominals - 1-2 x daily - 7 x weekly - 3 sets - 10 reps - Supine Single Knee to Chest Stretch - 1-2 x daily - 7 x weekly - 1 sets - 3 reps - Supine Lower Trunk Rotation - 1-2 x daily - 7 x weekly - sets - 10 reps - Bridge - 1 x daily - 7 x weekly - 2 sets - 10 reps - Clamshell - 1 x daily - 7 x weekly - 1-2 sets - 10 reps Normal [facility] THERAPY NTon 03-24-2024 THERAPY NT HNO ID: [id number] Author: KB RUGGIERO, RACHEL Service: ? Author Type: Physical Therapist Type: Therapy (PT/OT/Speech/Resp) Filed: 03/24/2024 08:37 Note Text: Program_ID:[id number] Access Code: [email or web address] URL: [email or web address]/ Date: 03-24-2024 Prepared By: Kb Ruggiero Program Notes Exercises - Seated Hamstring Stretch - 1-2 x daily - 7 x weekly - sets - 3 reps - Seated March with isometric abdominals - 1-2 x daily - 7 x weekly - 3 sets - 10 reps - Supine Single Knee to Chest Stretch - 1-2 x daily - 7 x weekly - 1 sets - 3 reps - Supine Lower Trunk Rotation - 1-2 x daily - 7 x weekly - sets - 10 reps - Bridge - 1 x daily - 7 x weekly - 2 sets - 10 reps - Clamshell - 1 x daily - 7 x weekly - 1-2 sets - 10 reps Normal [facility] [place] 03-10-2024 [facility] Telephone (INTMWS) BAILEYFANNIE S ([id number]) 1945 F Date Time Provider Department 03/10/24 GAVIN TRAN INTMWS During your visit today, we recorded the following information about you: Jen Astorga RN 03/10/2024 9:26 AM Signed Patient calls to request an order for mammogram be placed. Pended. Last mammogram completed 03/24/2023. Patient leaving for [place] in mid-March. Call back number to schedule is [phone]. Jen Astorga RN Allergies As of Date: 03/10/2024 Noted Allergy Reaction BACTRIM (SULFAMETHOXAZOLE-TRIMETH* 8 - GI Upset Comments: nausea CLINDAMYCIN HCL 09/25/2010 8 - GI Upset FLAGYL (METRONIDAZOLE HCL) 10/19/2009 8 - GI Upset GADOLINIUM-CONTAINING CONTRAST ME*10/28/2017 4 - Hives Comments: Gadolinium/Gadavist TRIMETHOPRIM 12/30/2018 11 - Vomiting LEVOFLOXACIN 12/30/2018 8 - GI Upset Date Reviewed: 02/28/2024 Reviewed by: Austin Nicolas LPN - Fully Assessed Reason for Visit: Orders [681] Primary Visit Diagnosis:Screening mammogram for breast cancer [Z12.31] Order(s):[facility] SCREENING [2393763] Order #: [id number] FUTURE Prescriptions as of 03/10/2024 - atorvastatin (LIPITOR) 40 mg tablet TAKE 1 TABLET EVERY DAY AT BEDTIME FOR CHOLESTEROL - meclizine (ANTIVERT) 12.5 mg tab Take 2 tablets by mouth three times a day as needed. - alendronate (FOSAMAX) 70 mg tablet Take 1 tablet by mouth one time a week. Take with a full glass of water, on an empty stomach; do NOT lie down for 30minutes. - cetirizine (ZYRTEC) 10 mg tablet Take 10 mg by mouth once daily. - naproxen (NAPROSYN) 500 mg tablet Take 1 tablet by mouth two times a day with meals. - fluticasone (FLONASE) 50 mcg/actuation nasal spray Use 2 Sprays in each nostril once daily. Rinse mouth after use. - carvedilol (COREG) 3.125 mg tablet - Cholecalciferol, Vitamin D3, 25 mcg (1,000 unit) cap Take 1 capsule by mouth once daily. - VITAMIN E 200 UNIT CAP Take 200 Units by mouth once daily. - Perry-3 Fatty Acids (FISH OIL) ORAL Cap Take one(1) capsule daily. - MULTIVITAMIN TAB Take one(1) tablet daily. - CALCIUM + D 600 MG-200 UNIT TAB Take one(1) tablet daily. - ASPIRIN 81 MG TAB Take 81 mg by mouth once daily. Problem List As Of Date 03/10/2024 Noted Resolved Cervical spondylosis without myelopathy [M47.81*02/26/2005 10/04/2013 Hyperlipidemia [E78.5] 03/18/2005 Family history of malignant neoplasm of breast *10/16/2005 02/27/2022 Unspecified Chest Pain [R07.9] 12/03/2005 12/07/2009 Other Malaise and Fatigue [R53.81, R53.83] 12/03/2005 12/07/2009 Anxiety state, unspecified [F41.1] 01/15/2007 01/13/2012 Benign neoplasm of colon [D12.6] 11/30/2008 02/27/2022 Incontinence of Feces [787.6] 11/30/2008 12/07/2009 Unspecified hemorrhoids without mention of comp*11/30/2008 10/04/2013 Allergic rhinitis [J30.9] 11/30/2008 Diverticulosis of colon [K57.30] 01/06/2009 12/31/2016 Rectal bleeding [K62.5] 03/09/2009 01/13/2012 Spondylosis, 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] 12/07/2009 10/04/2013 Enthesopathy of hip region [M76.899] 02/04/2011 01/13/2012 Diarrhea [R19.7] 02/08/2014 Anal fissure [K60.2] 03/07/2011 02/08/2014 Palpitations [R00.2] 01/13/2012 IBS (irritable bowel syndrome) [K58.9] 01/26/2013 Rectocele [N81.6] 03/02/2013 10/04/2013 Age-related osteoporosis without current pathol*10/27/2013 Carotid disease, bilateral (HCC) [I77.9] 01/03/2016 05/14/2019 Benign meningioma of brain (HCC) [D32.0] 10/28/2017 Muscle weakness [M62.81] 11/25/2018 05/14/2019 Carotid artery stenosis [I65.29] 05/14/2019 Incontinence of feces [R15.9] 03/09/2021 11/12/2022 Benign neoplasm of meninges (HCC) [D32.9] 09/13/2021 Acute left-sided thoracic back pain [M54.6] 11/26/2021 02/27/2022 Left Achilles tendinitis [M76.62] 11/26/2021 02/27/2022 Memory disturbance [R41.3] 02/28/2022 Left leg weakness [R29.898] 03/01/2024 Primary osteoarthritis of left hip [M16.12] 03/01/2024 Encounter Status:Closed by CATINA REDDY on 03/10/24 [facility] [id number] 03-01-2024 [id number] HNO ID: [id number] Author: KB RUGGIERO PT Service: ? Author Type: Physical Therapist Type: [id number] Filed: 03/01/2024 19:47 Note Text: [facility] Physical Therapy Plan of Care Certification Patient Name: Fannie Avalos : 1945 [facility] #: [id number] Date: 03/01/2024 To: Gavin Tran MD From Therapist: Kb Ruggiero PT RE: Patient Certification/ Recertification Your review, approval and electronic signature are required in order to comply with Payor: [employer] MEDICARE / Plan: [employer] MEDICARE PPO / Product Type: PPO / regulations. The identified Physical Therapy PLAN OF CARE for the patient is as follows: R29.898 Left leg weakness (primary encounter diagnosis) M16.12 Primary osteoarthritis of left hip PLAN OF CARE: Assessment: Fannie Avalos presents with diagnosis of L leg weakness and primary OA of L hip that interferes with walking in the community, walking in the house, stair negotiation, sleeping (I reposition frequently at night. Slowing down general activities. Getting in and out of the car.) . The patient presents with impairments in flexibility, gait, overall function, strength, and symptom management. Patient did not complete the PROMIS? (Patient Reported Outcome Measures Information System). Prognosis for therapy is Good due to: current objective clinical presentation, good overall health status, good support system/ coping skills . The patient will benefit from skilled therapy services to meet the goals established for this plan of care as noted below. Goals for Episode of Care: established 03/01/24 [place] in home exercise program. Patient will decrease pain rating by 2 points to meet minimal clinical important difference for numeric pain rating scale. Patient will demonstrate increase in B LE strength to 4 to 4+/5 during manual muscle testing in order to improve function for home management tasks, light functional tasks, and prior functional tasks. Patient will increase flexibility of hamstrings and hip flexors to SLR 60-70 degrees, hip ext to 10deg, and WNL to improve ability to maintain proper posture, improve mechanics, and decrease pain. Perform walking in the community;walking in the house;stair negotiation;sleeping; and car transfers without pain. Patient will Improve Timed Up and Go to <12 seconds to demonstrate decreased risk of falling. Patient will improve 30 second sit to stand to 10 to demonstrate improvement in functional lower extremity strength. Normal gait. Patient Goals: To reduce pain and improve stability of walking. Time Frame for Goals and Treatment : 05/01/24 Planned Interventions, Frequency, and Duration: Current Frequency: 1x every other week Duration: 8 weeks Total Number of Visits Planned: 4 Planned Treatment Interventions: Therapeutic exercise (40751), Neuromuscular re-education (41862), Manual therapy (66669), Self-intermediate management (02130), Patient/Family/Caregiver Education, Gait Training (13227) PLAN FOR NEXT VISIT: Assess resonse to and performance of HEP. Progress LE/Hip strengthening and flexibilty. May add hip extension stretches, hip abd ex, mini squats, bridging. May further assess gait adn balance to consider use of cane. Patient demonstrates good understanding of plan of care and treatment. The above goals and plan of care were discussed and agreed upon by patient/family. For further details regarding this patient refer to the Physical Therapy electronically documented visit dated 03/01/2024. Provider Attestation I have reviewed the treatment plan for Fannie Avalos, [facility]# [id number] for the period of 03/01/24 -- 05/01/24, established on 03/01/2024. Signature certifies the need for therapy services. Normal [facility] CNTHERAPYon 03-01-2024 CNTHERAPY OT/PT/Speech Visit ( PTWS) FANNIE AVALOS ([id number]) 1945 F Date Time Provider Department 03/01/24 5:15 PM KB RUGGIERO PTWS Date Time Provider Department Center 03/01/2024 5:15 PM [id number] RUGGIERO PTWS [place] Reason for Visit: PT Eval [747] Primary Visit Diagnosis:Left leg weakness [R29.898] Other Visit Diagnosis:Primary osteoarthritis of left hip [M16.12] Allergies As of Date: 03/01/2024 Noted Allergy Reaction BACTRIM (SULFAMETHOXAZOLE-TRIMETH* 8 - GI Upset Comments: nausea CLINDAMYCIN HCL 09/25/2010 8 - GI Upset FLAGYL (METRONIDAZOLE HCL) 10/19/2009 8 - GI Upset GADOLINIUM-CONTAINING CONTRAST ME*10/28/2017 4 - Hives Comments: Gadolinium/Gadavist TRIMETHOPRIM 12/30/2018 11 - Vomiting LEVOFLOXACIN 12/30/2018 8 - GI Upset Date Reviewed: 02/28/2024 Reviewed by: Austin Nicolas LPN - Fully Assessed Prescriptions as of 03/01/2024 - atorvastatin (LIPITOR) 40 mg tablet TAKE 1 TABLET EVERY DAY AT BEDTIME FOR CHOLESTEROL - meclizine (ANTIVERT) 12.5 mg tab Take 2 tablets by mouth three times a day as needed. - alendronate (FOSAMAX) 70 mg tablet Take 1 tablet by mouth one time a week. Take with a full glass of water, on an empty stomach; do NOT lie down for 30minutes. - cetirizine (ZYRTEC) 10 mg tablet Take 10 mg by mouth once daily. - naproxen (NAPROSYN) 500 mg tablet Take 1 tablet by mouth two times a day with meals. - fluticasone (FLONASE) 50 mcg/actuation nasal spray Use 2 Sprays in each nostril once daily. Rinse mouth after use. - carvedilol (COREG) 3.125 mg tablet - Cholecalciferol, Vitamin D3, 25 mcg (1,000 unit) cap Take 1 capsule by mouth once daily. - VITAMIN E 200 UNIT CAP Take 200 Units by mouth once daily. - Perry-3 Fatty Acids (FISH OIL) ORAL Cap Take one(1) capsule daily. - MULTIVITAMIN TAB Take one(1) tablet daily. - CALCIUM + D 600 MG-200 UNIT TAB Take one(1) tablet daily. - ASPIRIN 81 MG TAB Take 81 mg by mouth once daily. Base Engineer: Therapy (PT/OT/Speech/Resp) ID: [id number] 03/01/2024 6:04 PM Author: KB RUGGIERO Signed by KB RUGGIERO PT on 03/01/2024 at 6:04 PM Document text: Program_ID:[id number] Access Code: [email or web address] URL: [email or web address] Date: 03-01-2024 Prepared By: Kb Ruggiero Program Notes Exercises - Seated Hamstring Stretch - 1-2 x daily - 7 x weekly - sets - 3 reps - Seated March with isometric abdominals - 1-2 x daily - 7 x weekly - 3 sets - 10 reps Letter Text Normal [facility] THERAPY NTon 03-01-2024 THERAPY NT HNO ID: [id number] Author: KB RUGGIERO PT Service: ? Author Type: Physical Therapist Type: Therapy (PT/OT/Speech/Resp) Filed: 03/01/2024 18:04 Note Text: Program_ID:[id number] Access Code: [email or web address] URL: [email or web address] Date: 03-01-2024 Prepared By: Kb Ruggiero Program Notes Exercises - Seated Hamstring Stretch - 1-2 x daily - 7 x weekly - sets - 3 reps - Seated March with isometric abdominals - 1-2 x daily - 7 x weekly - 3 sets - 10 reps Normal [facility] CNOVon 02-28-2024 CNOV Office Visit (INTMWS ) FANNIE AVALOS ([id number]) 1945 F Date Time Provider Department 02/28/24 11:20 AM GAVIN TRAN INTMWS During your visit today, we recorded the following information about you: Pulse Respiration Blood pressure Weight 69/minute 12/minute 124/60 62.6 kg Height 1.6 m Gavin Tran MD 02/28/2024 12:31 PM Signed This note was created using [employer]. Subjective Fannieherlinda Avalos is a 78 year old female. She fell while walking thru a dip in the pavement which she saw. She fell forward and hurt her right hand, right knee, and left hip. X rays in yesterday were negative for fracture. All summer she has noted pain in the left hip and increasing left leg weakness. Pain was mainly getting in and out of the car, and prolonged walking. She now used a cart for gait support doing groceries and shopping. She had no actual fall or injury to the left hip. Review of Systems Constitutional: Negative for fatigue, fever and unexpected weight change. Gastrointestinal: Negative for constipation and diarrhea. Genitourinary: Negative for difficulty urinating and urgency. Musculoskeletal: Positive for arthralgias and gait problem. Negative for back pain and myalgias. Neurological: Positive for weakness. Negative for numbness. 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 alendronate (FOSAMAX) 70 mg tablet Take 1 tablet by mouth one time a week. Take with a full glass of water, on an empty stomach; do NOT lie down for 30minutes. cetirizine (ZYRTEC) 10 mg tablet Take 10 mg by mouth once daily. naproxen (NAPROSYN) 500 mg tablet Take 1 tablet by mouth two times a day with meals. fluticasone (FLONASE) 50 mcg/actuation nasal spray Use 2 Sprays in each nostril once daily. Rinse mouth after use. carvedilol (COREG) 3.125 mg tablet Cholecalciferol, Vitamin D3, 25 mcg (1,000 unit) cap Take 1 capsule by mouth once daily. VITAMIN E 200 UNIT CAP Take 200 Units by mouth once daily. Perry-3 Fatty Acids (FISH OIL) ORAL Cap Take one(1) capsule daily. MULTIVITAMIN TAB Take one(1) tablet daily. CALCIUM + D 600 MG-200 UNIT TAB Take one(1) tablet daily. ASPIRIN 81 MG TAB Take 81 mg by mouth once daily. No current facility-administered medications for this visit. Objective BP 124/60 (BP Site: Left Arm, BP Position: Sitting, BP Cuff Size: Regular Adult) Pulse 69 Resp 12 Ht 160 cm (5' 3) Wt 62.6 kg (138 lb 0.1 oz) SpO2 99% BMI 24.45 kg/m? Physical Exam Constitutional: Appearance: Normal appearance. Musculoskeletal: General: No tenderness. Lumbar back: No tenderness. Decreased range of motion. Negative right straight leg raise test and negative left straight leg raise test. Right hip: Normal. Left hip: No deformity, tenderness or crepitus. Decreased range of motion. Decreased strength. Right upper leg: Normal. Left upper leg: Normal. Right lower leg: Normal. No edema. Left lower leg: Normal. No edema. Neurological: Sensory: No sensory deficit. Motor: Weakness present. Gait: Gait abnormal. Comments: Subtle weakness of left hip and knee flexion, extension. Gait antalgic with some pelvic tilt. Assessment and Plan 1. Primary osteoarthritis of left hip - ICD9: 715.15, ICD10: M16.12 (primary diagnosis) - Shared medical decision making was done. Weakness and gait was more of a concern for her than pain. Naproxen was effective. We agreed to try PT first. She may need referral to orthopedics down the line. - CONSULT TO PHYSICAL THERAPY 2. Left leg weakness - ICD9: 729.89, ICD10: R29.898 - CONSULT TO PHYSICAL THERAPY Gavin Tran MD Allergies As of Date: 02/28/2024 Noted Allergy Reaction BACTRIM (SULFAMETHOXAZOLE-TRIMETH* 8 - GI Upset Comments: nausea CLINDAMYCIN HCL 09/25/2010 8 - GI Upset FLAGYL (METRONIDAZOLE HCL) 10/19/2009 8 - GI Upset GADOLINIUM-CONTAINING CONTRAST ME*10/28/2017 4 - Hives Comments: Gadolinium/Gadavist TRIMETHOPRIM 12/30/2018 11 - Vomiting LEVOFLOXACIN 12/30/2018 8 - GI Upset Date Reviewed: 02/28/2024 Reviewed by: Austin Nicolas LPN - Fully Assessed Primary Visit Diagnosis:Primary osteoarthritis of left hip [M16.12] Other Visit Diagnosis:Left leg weakness [R29.898] Order(s):CONSULT TO PHYSICAL THERAPY [9032] Order #: [id number]: 1 FUTURE Prescriptions as of 02/28/2024 - atorvastatin (LIPITOR) 40 mg tablet TAKE 1 TABLET EVERY DAY AT BEDTIME FO (more content not included)... Normal [facility] CNOVon 02-27-2024 CNOV Office Visit (UCWSTR ) FANNIE AVALOS ([id number]) 1945 F Date Time Provider Department 02/27/24 11:45 AM IZZY ARANDA During your visit today, we recorded the following information about you: Temperature Pulse Respiration Blood pressure 97.8 degrees 72/minute 16/minute 135/75 Weight 62.6 kg Lemuel Howard APRN.FINANCE SPECIALIST 02/27/2024 2:44 PM Signed Subjective Patient came in with complaints of left hip pain right knee pain and right hand pain. Patient says she tripped on a curb yesterday. Patient was not feeling dizzy at all. Patient denies any blood thinners patient denies hitting her head. Patient just wants to make sure she did not break anything. Patient denies any numbness tingling or loss of feeling. The history is provided by the patient. No american sign language teacher was used. Review of Systems Constitutional: Negative. Skin: Negative. Objective Physical Exam Constitutional: Appearance: Normal appearance. Pulmonary: Effort: Pulmonary effort is normal. Musculoskeletal: Hands: Comments: Purple pain in the area marked above, no swelling or discoloration. Skin: Comments: Red area pain when palpated no discoloration or swelling noted. Tavares right knee disocomfto when weight bearing only Neurological: Mental Status: She is alert. 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 CERVICAL SPONDYLOSIS 02/26/2005 Diarrhea Diverticulosis of colon 01/06/2009 Esophageal reflux Hemorrhage of rectum and anus 12/02/2017 HEMORRHOIDS NOS 11/30/2008 HYPERLIPIDEMIA NEC/NOS 03/18/2005 IBS (irritable bowel syndrome) 01/26/2013 Incontinence of feces 11/30/2008 Incontinence of feces 03/09/2021 Osteopenia Palpitations 01/13/2012 Perforation of large intestine (HCC) 12/03/2017 Spondylosis, 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 TIA (transient ischemic attack) 06/17/2017 [place], [place] PAST SURGICAL HISTORY Procedure Laterality Date CHOLECYSTECTOMY HX 03/2018 COLONOSCOPY FLX DX W/COLLJ SPEC WHEN PFRMD 10/20/2003 Colonoscopy COLONOSCOPY FLX DX W/COLLJ SPEC WHEN PFRMD 01/06/2009 Extensive diverticulosis/hemorrhoids COLONOSCOPY FLX DX W/COLLJ SPEC WHEN PFRMD 07/24/2012 [place] COLSC FLEXIBLE W/CONTROL BLEEDING ANY METHOD 12/02/2017 laser of cecal AVM DRAIN ABDOMINAL ABSCESS, PERCUTANEOUS 12/15/2017 perianastomotic abscess EGD 12/02/2017 ESOPHAGOGASTRODUODENOSCOPY TRANSORAL DIAGNOSTIC 07/03/2012 [place] GAMMA KNIFE 1FX TX DELIVERY 02/12/2022 x 3 on 01/15/22; 01/29/22; 02/12/22 HEMORRHOIDECTOMY INT AND XTRNL 2/> COLUMN/HI 10/26/2009 LAMINECTOMY W/RMVL ABNORMAL FACETS LUMBAR 07/08/2011 [place], [place] LAPAROSCOPY COLECTOMY PARTIAL W/ANASTOMOSIS 02/02/2009 LAPAROSCOPY COLECTOMY PARTIAL W/ANASTOMOSIS Right 12/03/2017 LAPS MOBLJ SPLENIC FLXR PFRMD W/PRTL COLECTOMY 02/02/2009 PAST SURGICAL HISTORY OF 1964 ovarian cyst removed PAST SURGICAL HISTORY OF 2001 BREAST BIOPSY--BENIGN PAST SURGICAL HISTORY OF 03/28/2018 Gallbladder removed SIGMOIDOSCOPY FLX CONTROL BLEEDING 03/22/2009 Granulation tissue at anastomosis SIGMOIDOSCOPY FLX W/BIOPSY SINGLE/MULTIPLE 02/28/2011 TOTAL ABDOMINAL HYSTERECT W/WO RMVL TUBE OVARY 02/1990 Hysterectomy, TERI, BSO ALLERGIES Bactrim [Sulfamethoxazole-Trimethopr im], Clindamycin Hcl, Flagyl [Metronidazole Hcl], Gadolinium-Containing Contrast Media, Trimethoprim, and Levofloxacin MEDICATIONS atorvastatin (LIPITOR) 40 mg tablet TAKE 1 TABLET EVERY DAY AT BEDTIME FOR CHOLESTEROL meclizine (ANTIVERT) 12.5 mg tab Take 2 tablets by mouth three times a day as needed. alendronate (FOSAMAX) 70 mg tablet Take 1 tablet by mouth one time a week. Take with a full glass of water, on an empty stomach; do NOT lie down for 30minutes. cetirizine (ZYRTEC) 10 mg tablet Take 10 mg by mouth once daily. naproxen (NAPROSYN) 500 mg tablet Take 1 tablet by mouth two times a day with meals. fluticasone (FLONASE) 50 mcg/actuation nasal spray Use 2 Sprays in each nostril once daily. Rinse mouth after use. carvedilol (COREG) 3.125 mg tablet Cholecalciferol, Vitamin D3, 25 mcg (1,000 unit) cap Take 1 capsule by mouth once daily. VITAMIN E 200 UNIT CAP Take 200 Units by mouth once daily. Perry-3 Fatty Acids (FISH OIL) ORAL Cap Take one(1) capsule daily. MULTIVITAMIN TAB Take one(1) tablet daily. CALCIUM + D 600 MG-200 UNIT TAB Take one(1) tablet daily. ASPIRIN 81 MG TAB Take 81 mg by mouth once daily. FAMILY HISTORY Problem Relation Age of Onset Breast Cancer Mother dec. age 88 Blood Disease Father PE, post MVA, mar. 53yo Breast Cancer Sister Myositis Sister Inclusion Body Myositis None Sister (more content not included)... Normal [facility] [place] 02-27-20[facility] Telephone ([facility]) FANNIE AVALOS ([id number]) 1945 F Date Time Provider Department 02/27/24 LEMUEL HOWARD [facility] During your visit today, we recorded the following information about you: Lemuel Howard APRN.FINANCE SPECIALIST 02/27/2024 2:44 PM Signed Please call patient let her know that the hip x-ray came back with no acute findings. Patient should just rest ice follow-up with PCP in a week or so if symptoms are not improving Arely Tavarez RN 02/27/2024 4:19 PM Signed Pt called and is notified of providers results and instructions. Pt voices understanding. Arely Tavarez RN Allergies As of Date: 02/27/2024 Noted Allergy Reaction BACTRIM (SULFAMETHOXAZOLE-TRIMETH* 8 - GI Upset Comments: nausea CLINDAMYCIN HCL 09/25/2010 8 - GI Upset FLAGYL (METRONIDAZOLE HCL) 10/19/2009 8 - GI Upset GADOLINIUM-CONTAINING CONTRAST ME*10/28/2017 4 - Hives Comments: Gadolinium/Gadavist TRIMETHOPRIM 12/30/2018 11 - Vomiting LEVOFLOXACIN 12/30/2018 8 - GI Upset Date Reviewed: 02/27/2024 Reviewed by: Kinjal Linn MA - Fully Assessed Reason for Visit: Results [95] Prescriptions as of 02/27/2024 - atorvastatin (LIPITOR) 40 mg tablet TAKE 1 TABLET EVERY DAY AT BEDTIME FOR CHOLESTEROL - meclizine (ANTIVERT) 12.5 mg tab Take 2 tablets by mouth three times a day as needed. - alendronate (FOSAMAX) 70 mg tablet Take 1 tablet by mouth one time a week. Take with a full glass of water, on an empty stomach; do NOT lie down for 30minutes. - cetirizine (ZYRTEC) 10 mg tablet Take 10 mg by mouth once daily. - naproxen (NAPROSYN) 500 mg tablet Take 1 tablet by mouth two times a day with meals. - fluticasone (FLONASE) 50 mcg/actuation nasal spray Use 2 Sprays in each nostril once daily. Rinse mouth after use. - carvedilol (COREG) 3.125 mg tablet - Cholecalciferol, Vitamin D3, 25 mcg (1,000 unit) cap Take 1 capsule by mouth once daily. - VITAMIN E 200 UNIT CAP Take 200 Units by mouth once daily. - Perry-3 Fatty Acids (FISH OIL) ORAL Cap Take one(1) capsule daily. - MULTIVITAMIN TAB Take one(1) tablet daily. - CALCIUM + D 600 MG-200 UNIT TAB Take one(1) tablet daily. - ASPIRIN 81 MG TAB Take 81 mg by mouth once daily. Problem List As Of Date 02/27/2024 Noted Resolved Cervical spondylosis without myelopathy [M47.81*02/26/2005 10/04/2013 Hyperlipidemia [E78.5] 03/18/2005 Family history of malignant neoplasm of breast *10/16/2005 02/27/2022 Unspecified Chest Pain [R07.9] 12/03/2005 12/07/2009 Other Malaise and Fatigue [R53.81, R53.83] 12/03/2005 12/07/2009 Anxiety state, unspecified [F41.1] 01/15/2007 01/13/2012 Benign neoplasm of colon [D12.6] 11/30/2008 02/27/2022 Incontinence of Feces [787.6] 11/30/2008 12/07/2009 Unspecified hemorrhoids without mention of comp*11/30/2008 10/04/2013 Allergic rhinitis [J30.9] 11/30/2008 Diverticulosis of colon [K57.30] 01/06/2009 12/31/2016 Rectal bleeding [K62.5] 03/09/2009 01/13/2012 Spondylosis, 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] 12/07/2009 10/04/2013 Enthesopathy of hip region [M76.899] 02/04/2011 01/13/2012 Diarrhea [R19.7] 02/08/2014 Anal fissure [K60.2] 03/07/2011 02/08/2014 Palpitations [R00.2] 01/13/2012 IBS (irritable bowel syndrome) [K58.9] 01/26/2013 Rectocele [N81.6] 03/02/2013 10/04/2013 Age-related osteoporosis without current pathol*10/27/2013 Carotid disease, bilateral (HCC) [I77.9] 01/03/2016 05/14/2019 Benign meningioma of brain (HCC) [D32.0] 10/28/2017 Muscle weakness [M62.81] 11/25/2018 05/14/2019 Carotid artery stenosis [I65.29] 05/14/2019 Incontinence of feces [R15.9] 03/09/2021 11/12/2022 Benign neoplasm of meninges (HCC) [D32.9] 09/13/2021 Acute left-sided thoracic back pain [M54.6] 11/26/2021 02/27/2022 Left Achilles tendinitis [M76.62] 11/26/2021 02/27/2022 Memory disturbance [R41.3] 02/28/2022 Encounter Status:Closed by ARELY TAVAREZ on 02/27/24 [facility] No Panel Informationon 02-26 Radiology Study observation (narrative) [facility] XR HAND 3V PA/LAT/OBL RTon 1 04-28-2023 XR HAND 3V PA/LAT/OBL RT * * *Final Report* * * DATE OF EXAM: Feb 27 2024 12:47PM WOX 5346 - XR HAND 3V PA/LAT/OBL RT / PROCEDURE REASON: Pain * * * * Physician Interpretation * * * * EXAMINATION: XR HAND 3V PA/LAT/OBL RT HISTORY: Right hand pain after recent fall, pain in metacarpals across back of hand. Pain . TECHNIQUE: XR HAND 3V PA/LAT/OBL RT Laterality: RIGHT Number of different views (projections): 3 M: XB_1 COMPARISON: None RESULT: 3 images. No identified acute osseous abnormality. Mildly space narrowing throughout the IP joints. Relatively preserved joint spaces otherwise. Osteopenia. Chondrocalcinosis multifocally. IMPRESSION: No acute osseous findings Addiction Medicine Physician: YIN Transcribe Date/Time: Feb 27 2024 1:23P Dictated by : ESTELLE CHARLTON MD This examination was interpreted and the report reviewed and electronically signed by: ESTELLE CHARLTON MD on Feb 27 2024 1:32PM EST [id number] [facility] XR HIP 3V PELV+ AP/LAT LTon 02-27-2024 XR HIP 3V PELV+ AP/LAT LT * * *Final Report* * * DATE OF EXAM: Feb 27 2024 12:47PM WOX 5351 - XR HIP 3V PELV+ AP/LAT LT / PROCEDURE REASON: Pain * * * * Physician Interpretation * * * * EXAMINATION: XR HIP 3V PELV+ AP/LAT LT PATIENT/TECHNOLOGIST PROVIDED HISTORY: Left hip pain after recent fall CLINICAL INFORMATION: 78 years old Female with Pain TECHNIQUE: XR HIP 3V PELV+ AP/LAT LT Laterality: LEFT Number of different views (projections): 3 COMPARISON: Radiographs 03/22/2020 RESULT: No acute fracture. Mild degenerative change bilateral hips with chondrocalcinosis. Sacroiliac joints and pubic symphysis are within normal limits. L5-S1 interbody fusion with interbody cage. Bowel anastomotic sutures in the RIGHT lower quadrant and pelvis. IMPRESSION: No acute osseous abnormality. Mild degenerative change bilateral hips. Addiction Medicine Physician: YIN Transcribe Date/Time: Feb 27 2024 2:22P Dictated by : NIKKO GRADY DO This examination was interpreted and the report reviewed and electronically signed by: NIKKO GRADY DO on Feb 27 2024 2:26PM EST [id number] [facility] XR Hand - right PA and Later al and Obliqueon 02-27-2024 IMPRESSION: No acute osseous findings Addiction Medicine Physician: YIN Transcribe Date/Time: Feb 27 2024 1:23P Dictated by : ESTELLE CHARLTON MD This examination was interpreted and the report reviewed and electronically signed by: ESTELLE CHARLTON MD on Feb 27 2024 1:32PM EST DIVISION OF RADIOLOGY * * *Final Report* * * DATE OF EXAM: Feb 27 2024 12:47PM WOX 5346 - XR HAND 3V PA/LAT/OBL RT / PROCEDURE REASON: Pain * * * * Physician Interpretation * * * * EXAMINATION: XR HAND 3V PA/LAT/OBL RT HISTORY: Right hand pain after recent fall, pain in metacarpals across back of hand. Pain . TECHNIQUE: XR HAND 3V PA/LAT/OBL RT Laterality: RIGHT Number of different views (projections): 3 M: XB_1 COMPARISON: None RESULT: 3 images. No identified acute osseous abnormality. Mildly space narrowing throughout the IP joints. Relatively preserved joint spaces otherwise. Osteopenia. Chondrocalcinosis multifocally. DIVISION OF RADIOLOGY Provider, [facility] - 02/27/2024 * * *Final Report* * * DATE OF EXAM: Feb 27 2024 12:47PM WOX 5346 - XR HAND 3V PA/LAT/OBL RT / PROCEDURE REASON: Pain * * * * Physician Interpretation * * * * EXAMINATION: XR HAND 3V PA/LAT/OBL RT HISTORY: Right hand pain after recent fall, pain in metacarpals across back of hand. Pain . TECHNIQUE: XR HAND 3V PA/LAT/OBL RT Laterality: RIGHT Number of different views (projections): 3 M: XB_1 COMPARISON: None RESULT: 3 images. No identified acute osseous abnormality. Mildly space narrowing throughout the IP joints. Relatively preserved joint spaces otherwise. Osteopenia. Chondrocalcinosis multifocally. IMPRESSION IMPRESSION: No acute osseous findings Addiction Medicine Physician: YIN Transcribe Date/Time: Feb 27 2024 1:23P Dictated by : ESTELLE CHARLTON MD This examination was interpreted and the report reviewed and electronically signed by: ESTELLE CHARLTON MD on Feb 27 2024 1:32PM EST [facility] XR Hand - right PA and Later al and ObliqueOrdered By: [facility]cf Provider on 02-27-2024 [facility] XR KNEE 4V AP/PA BOTH+LAT/ME R RTon 02-27-2024 XR KNEE 4V AP/PA BOTH+LAT/ANDREINA RT * * *Final Report* * * DATE OF EXAM: Feb 27 2024 12:47PM WOX 5203 - XR KNEE 4V AP/PA BOTH+LAT/ANDREINA RT / PROCEDURE REASON: Pain * * * * Physician Interpretation * * * * EXAMINATION: XR KNEE 4V AP/PA BOTH+LAT/ANDREINA RT PATIENT/TECHNOLOGIST PROVIDED HISTORY: Right knee pain after recent fall. CLINICAL INFORMATION: 78 years old Female with Pain TECHNIQUE: XR KNEE 4V AP/PA BOTH+LAT/ANDREINA RT Laterality: RIGHT Number of different views (projections): 4 COMPARISON: Radiographs 10/06/2023 RESULT: No acute fracture. No joint effusion. Joint spaces are maintained. Chondrocalcinosis. IMPRESSION: No acute osseous abnormality. Chondrocalcinosis. Addiction Medicine Physician: YIN Transcribe Date/Time: Feb 27 2024 1:31P Dictated by : NIKKO GRADY DO This examination was interpreted and the report reviewed and electronically signed by: NIKKO GRADY DO on Feb 27 2024 1:33PM EST [id number] [facility] XR Knee - right 4 Viewson IMPRESSION: No acute osseous abnormality. Chondrocalcinosis. Addiction Medicine Physician: YIN Transcribe Date/Time: Feb 27 2024 1:31P Dictated by : NIKKO GRADY DO This examination was interpreted and the report reviewed and electronically signed by: NIKKO GRADY DO on Feb 27 2024 1:33PM EST DIVISION OF RADIOLOGY * * *Final Report* * * DATE OF EXAM: Feb 27 2024 12:47PM WOX 5203 - XR KNEE 4V AP/PA BOTH+LAT/ANDREINA RT / PROCEDURE REASON: Pain * * * * Physician Interpretation * * * * EXAMINATION: XR KNEE 4V AP/PA BOTH+LAT/ANDREINA RT PATIENT/TECHNOLOGIST PROVIDED HISTORY: Right knee pain after recent fall. CLINICAL INFORMATION: 78 years old Female with Pain TECHNIQUE: XR KNEE 4V AP/PA BOTH+LAT/ANDREINA RT Laterality: RIGHT Number of different views (projections): 4 COMPARISON: Radiographs 10/06/2023 RESULT: No acute fracture. No joint effusion. Joint spaces are maintained. Chondrocalcinosis. DIVISION OF RADIOLOGY Provider, [facility] - 02/27/2024 * * *Final Report* * * DATE OF EXAM: Feb 27 2024 12:47PM WOX 5203 - XR KNEE 4V AP/PA BOTH+LAT/ANDREINA RT / PROCEDURE REASON: Pain * * * * Physician Interpretation * * * * EXAMINATION: XR KNEE 4V AP/PA BOTH+LAT/ANDREINA RT PATIENT/TECHNOLOGIST PROVIDED HISTORY: Right knee pain after recent fall. CLINICAL INFORMATION: 78 years old Female with Pain TECHNIQUE: XR KNEE 4V AP/PA BOTH+LAT/ANDREINA RT Laterality: RIGHT Number of different views (projections): 4 COMPARISON: Radiographs 10/06/2023 RESULT: No acute fracture. No joint effusion. Joint spaces are maintained. Chondrocalcinosis. IMPRESSION IMPRESSION: No acute osseous abnormality. Chondrocalcinosis. Addiction Medicine Physician: YIN Transcribe Date/Time: Feb 27 2024 1:31P Dictated by : NIKKO GRADY DO This examination was interpreted and the report reviewed and electronically signed by: NIKKO GRADY DO on Feb 27 2024 1:33PM [facility] XR Pelvis and Hip - left AP and Lateral frogon 02-27-2024 IMPRESSION: No acute osseous abnormality. Mild degenerative change bilateral hips. Addiction Medicine Physician: YIN Transcribe Date/Time: Feb 27 2024 2:22P Dictated by : NIKKO GRADY DO This examination was interpreted and the report reviewed and electronically signed by: NIKKO GRADY DO on Feb 27 2024 2:26PM [facility] DIVISION OF RADIOLOGY * * *Final Report* * * DATE OF EXAM: Feb 27 2024 12:47PM WOX 5351 - XR HIP 3V PELV+ AP/LAT LT / PROCEDURE REASON: Pain * * * * Physician Interpretation * * * * EXAMINATION: XR HIP 3V PELV+ AP/LAT LT PATIENT/TECHNOLOGIST PROVIDED HISTORY: Left hip pain after recent fall CLINICAL INFORMATION: 78 years old Female with Pain TECHNIQUE: XR HIP 3V PELV+ AP/LAT LT Laterality: LEFT Number of different views (projections): 3 COMPARISON: Radiographs 03/22/2020 RESULT: No acute fracture. Mild degenerative change bilateral hips with chondrocalcinosis. Sacroiliac joints and pubic symphysis are within normal limits. L5-S1 interbody fusion with interbody cage. Bowel anastomotic sutures in the RIGHT lower quadrant and pelvis. DIVISION OF RADIOLOGY Provider, [facility] - 02/27/2024 * * *Final Report* * * DATE OF EXAM: Feb 27 2024 12:47PM WOX 5351 - XR HIP 3V PELV+ AP/LAT LT / PROCEDURE REASON: Pain * * * * Physician Interpretation * * * * EXAMINATION: XR HIP 3V PELV+ AP/LAT LT PATIENT/TECHNOLOGIST PROVIDED HISTORY: Left hip pain after recent fall CLINICAL INFORMATION: 78 years old Female with Pain TECHNIQUE: XR HIP 3V PELV+ AP/LAT LT Laterality: LEFT Number of different views (projections): 3 COMPARISON: Radiographs 03/22/2020 RESULT: No acute fracture. Mild degenerative change bilateral hips with chondrocalcinosis. Sacroiliac joints and pubic symphysis are within normal limits. L5-S1 interbody fusion with interbody cage. Bowel anastomotic sutures in the RIGHT lower quadrant and pelvis. IMPRESSION IMPRESSION: No acute osseous abnormality. Mild degenerative change bilateral hips. Addiction Medicine Physician: YIN Transcribe Date/Time: Feb 27 2024 2:22P Dictated by : NIKKO GRADY DO This examination was interpreted and the report reviewed and electronically signed by: NIKKO GRADY DO on Feb 27 2024 2:26PM [facility] CNOVon 01-28-2024 CNOV Office Visit (AGGENS 3) FANNIE AVALOS ([id number]) 1945 F Date Time Provider Department 01/28/24 9:30 AM SHARIF FARMER3 During your visit today, we recorded the following information about you: Pulse Blood pressure Weight Height 71/minute 144/81 61.7 kg 1.6 m Sharif Farmer MD 01/28/2024 11:10 AM Signed Sharif Farmer M.D. Colon AND Rectal Surgery [address] [facility], [address] [place] [address] SUBJECTIVE Fannie Avalos is a 78 year old White female with constipation and fecal urgency HPI The patient is a pleasant 78-year-old female who has longstanding issues with urgency and constipation. She notes that about 3 times a week she will have significant urgency and have to [place] to find a restroom. She often has looser stools and rarely will have a semiformed stool. This seems to be largely diet dependent. When she has any constipation she has a very difficult time passing stool and will strain quite hard and because of this she went on once daily prune juice which has kept her stools on the softer side. Years ago she was on a fiber supplement but discontinued this because she was not finding it to be very beneficial. She also notes that many years ago she did go to pelvic floor physical therapy and self discontinued this because she felt like she had hit a plateau. Obstetric history is notable for 2 spontaneous vaginal deliveries the first of which had an episiotomy. Surgical history is notable for 2 colon resections both which were apparently for bowel perforation during colonoscopy about a year apart from each other many years ago. She also has had a laparoscopic cholecystectomy and surgery for ovarian cysts which was remote. Review of Systems Constitutional: Negative for chills, fever and weight loss. HENT: Negative for congestion, ear pain, hearing loss, sinus pain and sore throat. Eyes: Negative for blurred vision, double vision and pain. Respiratory: Negative for cough, shortness of breath and wheezing. Cardiovascular: Negative for chest pain, palpitations and leg swelling. Gastrointestinal: Negative for abdominal pain, blood in stool, constipation, diarrhea, heartburn, nausea and vomiting. Genitourinary: Negative for dysuria, frequency and urgency. Musculoskeletal: Positive for back pain. Negative for joint pain and neck pain. Skin: Negative for itching and rash. Neurological: Negative for dizziness, weakness and headaches. Endo/Heme/Allergies: Negative for environmental allergies. Does not bruise/bleed easily. Psychiatric/Behavioral: Negative for depression and memory loss. The patient is not nervous/anxious and does not have insomnia. 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 CERVICAL SPONDYLOSIS 02/26/2005 Diarrhea Diverticulosis of colon 01/06/2009 Esophageal reflux Hemorrhage of rectum and anus 12/02/2017 HEMORRHOIDS NOS 11/30/2008 HYPERLIPIDEMIA NEC/NOS 03/18/2005 IBS (irritable bowel syndrome) 01/26/2013 Incontinence of feces 11/30/2008 Incontinence of feces 03/09/2021 Osteopenia Palpitations 01/13/2012 Perforation of large intestine (HCC) 12/03/2017 Spondylosis, 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 TIA (transient ischemic attack) 06/17/2017 [place], [place] PAST SURGICAL HISTORY Procedure Laterality Date CHOLECYSTECTOMY HX 03/2018 COLONOSCOPY FLX DX W/COLLJ SPEC WHEN PFRMD 10/20/2003 Colonoscopy COLONOSCOPY FLX DX W/COLLJ SPEC WHEN PFRMD 01/06/2009 Extensive diverticulosis/hemorrhoids COLONOSCOPY FLX DX W/COLLJ SPEC WHEN PFRMD 07/24/2012 Colonoscopy [place] COLSC FLEXIBLE W/CONTROL BLEEDING ANY METHOD 12/02/2017 laser of cecal AVM DRAIN ABDOMINAL ABSCESS, PERCUTANEOUS 12/15/2017 perianastomotic abscess EGD 12/02/2017 ESOPHAGOGASTRODUODENOSCOPY TRANSORAL DIAGNOSTIC 07/03/2012 E[place] in [place] GAMMA KNIFE 1FX TX DELIVERY 02/12/2022 x 3 on 01/15/22; 01/29/22; 02/12/22 HEMORRHOIDECTOMY INT AND XTRNL 2/> COLUMN/HI 10/26/2009 LAMINECTOMY W/RMVL ABNORMAL FACETS LUMBAR 07/08/2011 [place], [place] LAPAROSCOPY COLECTOMY PARTIAL W/ANASTOMOSIS 02/02/2009 LAPAROSCOPY COLECTOMY PARTIAL W/ANASTOMOSIS Right 12/03/2017 LAPS MOBLJ SPLENIC FLXR PFRMD W/PRTL COLECTOMY 02/02/2009 PAST SURGICAL HISTORY OF 1964 ovarian cyst removed PAST SURGICAL HISTORY OF 2001 BREAST BIOPSY--BENIGN PAST SURGICAL HISTORY OF 03/28/2018 Gallbladder removed SIGMOIDOSCOPY FLX CONTROL BLEEDING 03/22/2009 Granulation tissue at anastomosis SIGMOIDOSCOPY FLX W/BIOPSY SINGLE/MULTIPLE 02/28/2011 TOTAL ABDOMINAL HYSTERECT W/WO RMVL TUBE OVARY 02/1990 Hysterectomy, TERI, BSO Social His (more content not included)... [facility] Telephone (AGGENS3) FANNIE AVALOS ([id number]) 1945 F Date Time Provider Department 01/28/24 SHARIF FARMER AGG3 During your visit today, we recorded the following information about you: Catarino Pinto 01/28/2024 2:28 PM Signed A Consult to Pelvic Floor Physical Therapy has been sent through the [employer] referral Portal.Confirmation number: [id number] Catarino Pinto Allergies As of Date: 01/28/2024 Noted Allergy Reaction BACTRIM (SULFAMETHOXAZOLE-TRIMETH* 8 - GI Upset Comments: nausea CLINDAMYCIN HCL 09/25/2010 8 - GI Upset FLAGYL (METRONIDAZOLE HCL) 10/19/2009 8 - GI Upset GADOLINIUM-CONTAINING CONTRAST ME*10/28/2017 4 - Hives Comments: Gadolinium/Gadavist TRIMETHOPRIM 12/30/2018 11 - Vomiting LEVOFLOXACIN 12/30/2018 8 - GI Upset Date Reviewed: 01/28/2024 Reviewed by: Sharif Farmer MD - Fully Assessed Reason for Visit: Physical Therapy [503] Cmt: Pelvic Floor Physical Therapy Prescriptions as of 01/28/2024 - meclizine (ANTIVERT) 12.5 mg tab Take 2 tablets by mouth three times a day as needed. - alendronate (FOSAMAX) 70 mg tablet Take 1 tablet by mouth one time a week. Take with a full glass of water, on an empty stomach; do NOT lie down for 30minutes. - cetirizine (ZYRTEC) 10 mg tablet Take 10 mg by mouth once daily. - naproxen (NAPROSYN) 500 mg tablet Take 1 tablet by mouth two times a day with meals. - atorvastatin (LIPITOR) 40 mg tablet TAKE 1 TABLET EVERY DAY AT BEDTIME FOR CHOLESTEROL - fluticasone (FLONASE) 50 mcg/actuation nasal spray Use 2 Sprays in each nostril once daily. Rinse mouth after use. - carvedilol (COREG) 3.125 mg tablet - Cholecalciferol, Vitamin D3, 25 mcg (1,000 unit) cap Take 1 capsule by mouth once daily. - VITAMIN E 200 UNIT CAP Take 200 Units by mouth once daily. - Perry-3 Fatty Acids (FISH OIL) ORAL Cap Take one(1) capsule daily. - MULTIVITAMIN TAB Take one(1) tablet daily. - CALCIUM + D 600 MG-200 UNIT TAB Take one(1) tablet daily. - ASPIRIN 81 MG TAB Take 81 mg by mouth once daily. Problem List As Of Date 01/28/2024 Noted Resolved Cervical spondylosis without myelopathy [M47.81*02/26/2005 10/04/2013 Hyperlipidemia [E78.5] 03/18/2005 Family history of malignant neoplasm of breast *10/16/2005 02/27/2022 Unspecified Chest Pain [R07.9] 12/03/2005 12/07/2009 Other Malaise and Fatigue [R53.81, R53.83] 12/03/2005 12/07/2009 Anxiety state, unspecified [F41.1] 01/15/2007 01/13/2012 Benign neoplasm of colon [D12.6] 11/30/2008 02/27/2022 Incontinence of Feces [787.6] 11/30/2008 12/07/2009 Unspecified hemorrhoids without mention of comp*11/30/2008 10/04/2013 Allergic rhinitis [J30.9] 11/30/2008 Diverticulosis of colon [K57.30] 01/06/2009 12/31/2016 Rectal bleeding [K62.5] 03/09/2009 01/13/2012 Spondylosis, 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] 12/07/2009 10/04/2013 Enthesopathy of hip region [M76.899] 02/04/2011 01/13/2012 Diarrhea [R19.7] 02/08/2014 Anal fissure [K60.2] 03/07/2011 02/08/2014 Palpitations [R00.2] 01/13/2012 IBS (irritable bowel syndrome) [K58.9] 01/26/2013 Rectocele [N81.6] 03/02/2013 10/04/2013 Age-related osteoporosis without current pathol*10/27/2013 Carotid disease, bilateral (HCC) [I77.9] 01/03/2016 05/14/2019 Benign meningioma of brain (HCC) [D32.0] 10/28/2017 Muscle weakness [M62.81] 11/25/2018 05/14/2019 Carotid artery stenosis [I65.29] 05/14/2019 Incontinence of feces [R15.9] 03/09/2021 11/12/2022 Benign neoplasm of meninges (HCC) [D32.9] 09/13/2021 Acute left-sided thoracic back pain [M54.6] 11/26/2021 02/27/2022 Left Achilles tendinitis [M76.62] 11/26/2021 02/27/2022 Memory disturbance [R41.3] 02/28/2022 Encounter Status:Closed by CATARINO PINTO on 01/28/24 [facility] 01-08-2024 CNOV Office Visit (INTMWS ) FANNIE AVALOS ([id number]) 1945 F Date Time Provider Department 01/08/24 2:00 PM GAVIN TRAN INTMWS During your visit today, we recorded the following information about you: Temperature Pulse Blood pressure Weight 98 degrees 80/minute 117/79 62.1 kg Gavin Tran MD 01/08/2024 3:01 PM Signed This note was created using [employer]. Subjective Fannie Avalos is a 78 year old female had ongoing dizziness for several weeks, which worsened and prompted ER visit 12/31/23. Symptoms were unsteadiness that lasted a few minutes, and aggravated by movement. This was in the setting of stressors. She was seen in the ED and labs, EKG, CT brain were negative. Exam was within normal limits. She was discharged on meclizine and symptoms improved with time. Review of Systems Constitutional: Negative for diaphoresis, fatigue and fever. HENT: Negative for ear pain, hearing loss and tinnitus. Eyes: Negative for visual disturbance. Respiratory: Negative. Cardiovascular: Negative. Neurological: Negative for syncope, weakness and numbness. 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 alendronate (FOSAMAX) 70 mg tablet Take 1 tablet by mouth one time a week. Take with a full glass of water, on an empty stomach; do NOT lie down for 30minutes. cetirizine (ZYRTEC) 10 mg tablet Take 10 mg by mouth once daily. naproxen (NAPROSYN) 500 mg tablet Take 1 tablet by mouth two times a day with meals. atorvastatin (LIPITOR) 40 mg tablet TAKE 1 TABLET EVERY DAY AT BEDTIME FOR CHOLESTEROL fluticasone (FLONASE) 50 mcg/actuation nasal spray Use 2 Sprays in each nostril once daily. Rinse mouth after use. carvedilol (COREG) 3.125 mg tablet Cholecalciferol, Vitamin D3, 25 mcg (1,000 unit) cap Take 1 capsule by mouth once daily. VITAMIN E 200 UNIT CAP Take 200 Units by mouth once daily. Perry-3 Fatty Acids (FISH OIL) ORAL Cap Take one(1) capsule daily. MULTIVITAMIN TAB Take one(1) tablet daily. CALCIUM + D 600 MG-200 UNIT TAB Take one(1) tablet daily. ASPIRIN 81 MG TAB Take 81 mg by mouth once daily. No current facility-administered medications for this visit. Objective BP 117/79 (BP Site: Left Arm, BP Position: Supine, BP Cuff Size: Large Adult) Pulse 80 Temp 36.7 ?C (98 ?F) (Temporal) Wt 62.1 kg (136 lb 14.5 oz) BMI 24.56 kg/m? Physical Exam Constitutional: Appearance: Normal appearance. HENT: Head: Normocephalic. Right Ear: Tympanic membrane normal. There is no impacted cerumen. Left Ear: Tympanic membrane normal. There is impacted cerumen. Nose: Nose normal. Eyes: Extraocular Movements: Extraocular movements intact. Conjunctiva/sclera: Conjunctivae normal. Cardiovascular: Rate and Rhythm: Regular rhythm. Tachycardia present. Pulmonary: Breath sounds: Normal breath sounds. Neurological: General: No focal deficit present. Mental Status: She is alert. Cranial Nerves: No cranial nerve deficit. Sensory: No sensory deficit. Motor: No weakness. Coordination: Coordination normal. Gait: Gait normal. Assessment and Plan 1. Vertigo - ICD9: 780.4, ICD10: R42 (primary diagnosis) Resolved. Consider PT if recurrent. 2. Need for influenza vaccination - ICD9: V04.81, ICD10: Z23 - INFLUENZA VACCINE, PRSV FREE, AGE 65+ YR, HIGH DOSE, TRIVALENT (FLUZONE HIGH-DOSE) Gavin Tran MD Allergies As of Date: 01/08/2024 Noted Allergy Reaction BACTRIM (SULFAMETHOXAZOLE-TRIMETH* 8 - GI Upset Comments: nausea CLINDAMYCIN HCL 09/25/2010 8 - GI Upset FLAGYL (METRONIDAZOLE HCL) 10/19/2009 8 - GI Upset GADOLINIUM-CONTAINING CONTRAST ME*10/28/2017 4 - Hives Comments: Gadolinium/Gadavist TRIMETHOPRIM 12/30/2018 11 - Vomiting LEVOFLOXACIN 12/30/2018 8 - GI Upset Date Reviewed: 01/08/2024 Reviewed by: Ann-Marie Chen LPN - Fully Assessed Reason for Visit: ER F/U [41] Immunizations [194] Cmt: Flu vaccination Primary Visit Diagnosis:Vertigo [R42] Other Visit Diagnosis:Need for influenza vaccination [Z23] Order(s):INFLUENZA VACCINE, PRSV FREE, AGE 65+ YR, HIGH DOSE, TRIVALENT (FLUZONE HIGH-DOSE) [[id number]] Order #: [id number] Prescriptions as of 01/08/2024 - meclizine (ANTIVERT) 12.5 mg tab Take 2 tablets by mouth three times a day as needed. - alendronate (FOSAMAX) 70 mg tablet Take 1 tablet (more content not included)... Normal [facility] 12-31-2023 [facility] HNO ID: [id number] Author: IVETTE TONG RT(R) Service: Radiology Author Type: Leave Manager Type: Allied Health Filed: 12/31/2023 09:55 Note Text: Radiology Service Progress Note PATIENT NAME: Fannie Avalos DATE OF SERVICE: December 31, 2023 TIME: 9:54 AM PATIENT IDENTITY VERIFICATION COMPLETED USING TWO (2) IDENTIFIERS: Name and Date of confirmed by patient verbally. FALL SCREENING: Has the patient had 2 falls in the last year or 1 fall with injury or currently using an Ambulatory Assistive Device (Walker, Cane, Wheelchair, Crutches, etc.)? Emergency Room Patient: Screened in ED PATIENT GENDER DATA: Female. status: : No status: NO. PATIENT RELEVANT IMPLANT DATA REVIEWED: Yes PATIENT PRESENTS WITH AN IMPLANTABLE OR ATTACHED VAT TENDER: No RADIOLOGY DEPARTMENT: CT; Exam(s) Completed: Brain PERIPHERAL IV DATA: Not applicable SIGNED BY: RT Acacia(R) December 31, 2023 9:54 AM Normal [facility] CBC W Auto Differential pane l (Bld)on 12-31-2023 Basophils (Bld) [#/Vol] 10*3/uL Normal <0.11 [facility] Comment on above: Order Comment: Speci men Type: BLOOD SPECIMENOrdering Facility: [facility] Address: [address] [place] [address] Performed By: #### 5 7021-8 ####[facility] LABCLIA [id number] [facility] [place] [address] [place] Basophils/100 WBC (Bld) 0.5 % Normal [facility] Comment on above: Order Comment: Speci men Type: BLOOD SPECIMENOrdering Facility: [facility] Address: [address] [place] [address] Performed By: #### 5 7021-8 ####[facility] LABCLIA [id number] [facility] [place] [address] [place] Differential cell count method Nom (Bld) Auto Normal [facility] Comment on above: Order Comment: Speci men Type: BLOOD SPECIMENOrdering Facility: [facility] Address: [address] [place] [address] Performed By: #### 5 7021-8 ####[facility] LABCLIA [id number] [facility] [place] [address] [place] Eosinophils (Bld) [#/Vol] 0.26 10*3/uL Normal <0.46 [facility] Comment on above: Order Comment: Speci men Type: BLOOD SPECIMENOrdering Facility: [facility] Address: [address] [place] [address] Performed By: #### 5 7021-8 ####[facility] LABCLIA [id number] [facility] [place] [address] [place] Eosinophils/100 WBC (Bld) 6.1 % Normal [facility] Comment on above: Order Comment: Speci men Type: BLOOD SPECIMENOrdering Facility: [facility] Address: [address] [place] [address] Performed By: #### 5 7021-8 ####[facility] LABCLIA [id number] [place] [address] [place] Erythrocyte distribution width (RBC) [Ratio] 12.2 % Normal 11.5-15.0 [facility] Comment on above: Order Comment: Speci men Type: BLOOD SPECIMENOrdering Facility: [facility] Address: [address] [place] [address] Performed By: #### 5 7021-8 ####[facility] LABCLIA [id number] [place] [address] [place] Hematocrit (Bld) [Volume fraction] 41.9 % Normal 36.0-46.0 [facility] Comment on above: Order Comment: Speci men Type: BLOOD SPECIMENOrdering Facility: [facility] Address: [address] [place] [address] Performed By: #### 5 7021-8 ####[facility] LABCLIA [id number] [place] [address] [place] Hemoglobin (Bld) [Mass/Vol] 13.9 g/dL Normal 11.5-15.5 [facility] Comment on above: Order Comment: Speci men Type: BLOOD SPECIMENOrdering Facility: [facility] Address: [address] [place] [address] Performed By: #### 5 7021-8 ####[facility] LABCLIA [id number] [place] [address] [place] Immature granulocytes (Bld) [#/Vol] 10*3/uL Normal <0.10 [facility] Comment on above: Order Comment: Speci men Type: BLOOD SPECIMENOrdering Facility: [facility] Address: [address] [place] [address] Performed By: #### 5 7021-8 ####[facility] LABCLIA [id number] [place] [address] [place] Immature granulocytes/100 WBC (Bld) 0.2 % Normal [facility] Comment on above: Order Comment: Speci men Type: BLOOD SPECIMENOrdering Facility: [facility] Address: [address] [place] [address] Performed By: #### 5 7021-8 ####[facility] LABCLIA [id number] [place], [place] [address] [place] [address] [place] Lymphocytes (Bld) [#/Vol] 1.25 10*3/uL Normal 1.00-4.00 [facility] Comment on above: Order Comment: Speci men Type: BLOOD SPECIMENOrdering Facility: [facility] Address: [address] [place] [address] Performed By: #### 5 7021-8 ####[facility] LABCLIA [id number] [place] [id number] [facility] Lymphocytes/100 WBC (Bld) 29.3 % Normal [facility] Comment on above: Order Comment: Speci men Type: BLOOD SPECIMENOrdering Facility: [facility] Address: [address] [place] [address] Performed By: #### 5 7021-8 ####[facility] LABCLIA [id number] [place], [place] [address] [place] [address] [place] MCH (RBC) [Entitic mass] 33.3 pg Normal 26.0-34.0 [facility] Comment on above: Order Comment: Speci men Type: BLOOD SPECIMENOrdering Facility: [facility] Address: [address] [place] [address] Performed By: #### 5 7021-8 ####[facility] LABCLIA [id number] [place] [address] [facility] MCHC (RBC) [Mass/Vol] 33.2 g/dL Normal 30.5-36.0 [facility] Comment on above: Order Comment: Speci men Type: BLOOD SPECIMENOrdering Facility: [facility] Address: [address] [place] [address] Performed By: #### 5 7021-8 ####[facility] LABCLIA [id number] [place] [address] [facility] [place] MCV (RBC) [Entitic vol] 100.5 fL High 80.0-100.0 [facility] Comment on above: Order Comment: Speci men Type: BLOOD SPECIMENOrdering Facility: [facility] Address: [address] [place] [address] Performed By: #### 5 7021-8 ####[facility] LABCLIA [id number] [facility] [place] [address] [place] Monocytes (Bld) [#/Vol] 0.42 10*3/uL Normal <0.87 [facility] Comment on above: Order Comment: Speci men Type: BLOOD SPECIMENOrdering Facility: [facility] Address: [address] [place] [address] Performed By: #### 5 7021-8 ####[facility] LABCLIA [id number] [place] [address] [place] Monocytes/100 WBC (Bld) 9.9 % Normal [facility] Comment on above: Order Comment: Speci men Type: BLOOD SPECIMENOrdering Facility: [facility] Address: [address] [place] [address] Performed By: #### 5 7021-8 ####[facility] LABCLIA [id number] [place] [address] [place] Neutrophils (Bld) [#/Vol] 2.30 10*3/uL Normal 1.45-7.50 [facility] Comment on above: Order Comment: Speci men Type: BLOOD SPECIMENOrdering Facility: [facility] Address: [address] [place] [address] Performed By: #### 5 7021-8 ####[facility] LABCLIA [id number] [place] [address] [facility] [place] Neutrophils/100 WBC (Bld) 54.0 % Normal [facility] Comment on above: Order Comment: Speci men Type: BLOOD SPECIMENOrdering Facility: [facility] Address: [address] [place] [address] Performed By: #### 5 7021-8 ####[facility] LABCLIA [id number] [place] [address] [place] Nucleated RBC (Bld) [#/Vol] Normal [facility] Comment on above: Order Comment: Speci men Type: BLOOD SPECIMENOrdering Facility: [facility] Address: [address] [place] [address] Performed By: #### 5 7021-8 ####[facility] LABCLIA [id number] [place] [address] [place] Nucleated RBC/100 WBC (Bld) [Ratio] Normal [facility] Comment on above: Order Comment: Speci men Type: BLOOD SPECIMENOrdering Facility: [facility] Address: [address] [place] [address] Performed By: #### 5 7021-8 ####[facility] LABCLIA [id number] [place] [address] [place] Platelet mean volume (Bld) [Entitic vol] 9.6 fL Normal 9.0-12.7 [facility] Comment on above: Order Comment: Speci men Type: BLOOD SPECIMENOrdering Facility: [facility] Address: [address] [place] [address] Performed By: #### 5 7021-8 ####[facility] LABCLIA [id number] [facility] [place] [address] [place] Platelets (Bld) [#/Vol] 265 10*3/uL Normal 150-400 [facility] Comment on above: Order Comment: Speci men Type: BLOOD SPECIMENOrdering Facility: [facility] Address: [address] [place] [address] Performed By: #### 5 7021-8 ####[facility] LABCLIA [id number] [facility] [place] [address] [place] RBC (Bld) [#/Vol] 4.17 10*6/uL Normal 3.90-5.20 [facility] Comment on above: Order Comment: Speci men Type: BLOOD SPECIMENOrdering Facility: [facility] Address: [address] [place], [place] [address], [place] [address] Performed By: #### 5 7021-8 ####[facility]CLIA [id number] [place] [address] [facility] WBC (Bld) [#/Vol] 4.26 10*3/uL Normal 3.70-11.00 [facility] Comment on above: Order Comment: Speci men Type: BLOOD SPECIMENOrdering Facility: [facility] Address: [address] [place] [address] Performed By: #### 5 7021-8 ####[facility] LABCLIA [id number] [place] [address] [facility] CT BRAIN WO IVCONon 12-31-[address] BRAIN WO IVCON * * *Final Report* * * DATE OF EXAM: Dec 31 2023 9:53AM [facility] 0504 - CT BRAIN WO IVCON / PROCEDURE REASON: Dizziness, non-specific * * * * Physician Interpretation * * * * EXAMINATION: CT BRAIN WO IVCON CLINICAL HISTORY: Dizziness TECHNIQUE: Serial axial images without IV contrast were obtained from the vertex to the foramen magnum. MQ: CTBWO_3 CT Radiation dose: Integrated Dose-Length Product (DLP) for this visit = 617.94 mGy*cm CT Dose Reduction Employed: No dose reduction techniques were required COMPARISON: MRI brain 09/24/2023, CT head 02/12/2022 RESULT: Localizer images: No additional findings. Post-operative change: None. Acute change: None. Hemorrhage: No evidence of acute intracranial hemorrhage. ECASS hemorrhagic transformation score: Not Applicable Mass Lesion / Mass Effect: Similar 2.6 x 2.1 cm left parafalcine hyperdense mass series 2, image 18. There is again mild mass effect. No midline shift. Chronic change: None apparent. Parenchyma: Mild cerebral volume loss. Ventricles: The ventricles are within normal limits of size and configuration for age. Paranasal sinuses and skull base: The visualized paranasal sinuses are grossly clear. The skull base and imaged soft tissues are unremarkable. IMPRESSION: No acute intracranial findings. Similar meningioma. Addiction Medicine Physician: YIN Transcribe Date/Time: Dec 31 2023 10:10A Dictated by : RENUKA NARANJO MD This examination was interpreted and the report reviewed and electronically signed by: RENUKA NARANJO MD on Dec 31 2023 10:19AM EST [id number] Normal [facility] Comprehensive metabolic 2000 panelon 12-31-2023 Albumin [Mass/Vol] 4.5 g/dL Normal 3.9-4.9 [facility] Comment on above: Order Comment: Speci men Type: BLOOD SPECIMEN [facility] Address: [address] [place] [address] Performed By: #### 1 9123-9, 93487-9 #### [facility] CLIA [id number] [address] [place] [address] [place] ALP [Catalytic activity/Vol] 111 U/L Normal 34-123 [facility] Comment on above: Order Comment: Speci men Type: BLOOD SPECIMEN [facility] Address: [address] [place] [address] Performed By: #### 1 9123-9, 52564-9 #### [facility] CLIA [id number] [address] [place] [address] [place] ALT With P-5'-P [Catalytic activity/Vol] 23 U/L Normal 7-38 [facility] Comment on above: Order Comment: Speci men Type: BLOOD SPECIMEN [facility] Address: [address] [place] [address] Performed By: #### 1 9123-9, 47099-2 #### [facility] CLIA [id number] [address] [place] [address] [place] Anion gap [Moles/Vol] 10 mmol/L Normal 8-15 [facility] Comment on above: Order Comment: Speci men Type: BLOOD SPECIMEN [facility] Address: [address] [place] [address] Performed By: #### 1 9123-9, 20069-7 #### [facility] CLIA [id number] [address] [place] [address] [place] AST With P-5'-P [Catalytic activity/Vol] 28 U/L Normal 13-35 [facility] Comment on above: Order Comment: Speci men Type: BLOOD SPECIMEN [facility] Address: [address] [place] [address] Performed By: #### 1 9123-9, 79430-7 #### [facility] CLIA [id number] [address] [place] [address] [place] Bilirubin [Mass/Vol] 1.0 mg/dL Normal 0.2-1.3 [facility] Comment on above: Order Comment: Speci men Type: BLOOD SPECIMEN [facility] Address: [address] [place] [address] Performed By: #### 1 9123-9, 27385-5 #### [facility] CLIA [id number] [address] [place] [address] [place] Calcium [Mass/Vol] 8.9 mg/dL Normal 8.5-10.2 [facility] Comment on above: Order Comment: Speci men Type: BLOOD SPECIMEN [facility] Address: [address] [place] [address] Performed By: #### 1 9123-9, 13493-6 #### [facility] CLIA [id number] [address] [place] [address] [place] Chloride [Moles/Vol] 103 mmol/L Normal 98-107 [facility] Comment on above: Order Comment: Speci men Type: BLOOD SPECIMEN [facility] Address: [address] [place] [address] Performed By: #### 1 9123-9, 00871-1 #### [facility] CLIA [id number] [address] [place] [address] [place] CO2 [Moles/Vol] 30 mmol/L Normal 22-30 [facility] Comment on above: Order Comment: Speci men Type: BLOOD SPECIMEN [facility] Address: [address] [place] [address] Performed By: #### 1 9123-9, 54326-0 #### [facility] CLIA [id number] [address] [place] [address] [place] [facility] Creatinine [Mass/Vol] 0.66 mg/dL Normal 0.58-0.96 [facility] Comment on above: Order Comment: Randy sales Type: BLOOD SPECIMEN [facility] Address: [address] [place] [address] Performed By: #### 1 9123-9, 90460-9 #### [facility] CLIA [id number] [address] [place] [address] [place] Creatinine and Glomerular filtration rate.predicted panel (S/P/Bld) 89 mL/min/1.73m??? Normal >=60 [facility] Comment on above: Order Comment: Randy sales Type: BLOOD SPECIMEN [facility] Address: [address] [place] [address] Result Comment: Alysia mated Glomerular Filtration Rate (eGFR) is calculated using the 2020 CKD-EPI creatinine equation. This equation utilizes serum creatinine, sex, and age as parameters. The creatinine assay has traceable calibration to isotope dilution-mass spectrometry. Refer to KDIGO guidelines for clinical interpretation. In patients with unstable renal function, e.g. those with acute kidney injury, the eGFR may not accurately reflect actual GFR. Performed By: #### 1 9123-9, 86259-4 #### [facility] CLIA [id number] [address] [place] [address] [place] Glucose [Mass/Vol] 95 mg/dL Normal 74-99 [facility] Comment on above: Order Comment: Randy sales Type: BLOOD SPECIMEN [facility] Address: [address] [place] [address] Result Comment: The [place] Diabetes Association (ADA) provides guidance for cutoff values for fasting glucose and random glucose. The ADA defines fasting as no caloric intake for at least 8 hours. Fasting plasma glucose results between 100 to 125 mg/dL indicate increased risk for diabetes (prediabetes). Fasting plasma glucose results greater than or equal to 126 mg/dL meet the criteria for diagnosis of diabetes. In the absence of unequivocal hyperglycemia, results should be confirmed by repeat testing. In a patient with classic symptoms of hyperglycemia or hyperglycemic crisis, random plasma glucose results greater than or equal to 200 mg/dL meet the criteria for diagnosis of diabetes. Reference: Standards of Medical Care in Diabetes 2016, [place] [employer] Association. Diabetes Care. 2016.39(Suppl 1). Performed By: #### 1 9, #### [facility] [place] [facility] CLIA [id number] [address] [place] [address] [place] Potassium [Moles/Vol] 3.9 mmol/L Normal 3.7-5.1 [facility] Comment on above: Order Comment: Randy sales Type: BLOOD SPECIMEN [facility] Address: [address] [place] [address] Performed By: #### 1 9122-12, #### [facility] CLIA [id number] [address] [place] [address] [place] Protein [Mass/Vol] 6.8 g/dL Normal 6.3-8.0 [facility] Comment on above: Order Comment: Randy sales Type: BLOOD SPECIMEN [facility] Address: [address] [place] [address] Performed By: #### 1 239, 88160-5 #### [facility] CLIA [id number] [address] [place] [address] [place] Sodium [Moles/Vol] 143 mmol/L Normal 136-144 [facility] Comment on above: Order Comment: Randy sales Type: BLOOD SPECIMEN [facility] Address: [address] [place] [address] Performed By: #### 1 9122-12, 81580-9 #### [facility] CLIA [id number] [address] [place] [address] [place] Urea nitrogen [Mass/Vol] 15 mg/dL Normal 7-21 [facility] Comment on above: Order Comment: Speci men Type: BLOOD SPECIMEN [facility] Address: [address] [place], [place] [address] [address] Performed By: #### 1 9123-9, 01807-8 #### [facility] CLIA [id number] [address] [place] [address] [place] [facility] ECG COMPLETEon 12-31-2023 ECG COMPLETE Ventricular Rate : 6 5 BPM Atrial Rate : 65 BPM P-R Interval : 170 ms QRS Duration : 152 ms Q-T Interval : 462 ms QTC Calculation(Bazett) : 480 ms Calculated P [place] : 18 degrees Calculated R [place] : -58 degrees Calculated T [place] : -3 degrees NORMAL SINUS RHYTHM LEFT AXIS DEVIATION RIGHT BUNDLE BRANCH BLOCK 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) ABNORMAL ECG WHEN COMPARED WITH ECG OF 21-Feb-2023 08:39, NO SIGNIFICANT CHANGE WAS FOUND Confirmed by MD UREÑA VINAYAK ([id number]) on 01/05/2024 11:00:49 PM NAME : FANNIE AVALOS PID : [id number] : 1945 Gender : Female Race : ORD : [id number] Procedure Date : Dec 31 2023 09:36:28 Edit Date : Jan 05 2024 23:00:51 Diagnosis: NORMAL SINUS RHYTHM LEFT AXIS DEVIATION RIGHT BUNDLE BRANCH BLOCK 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) ABNORMAL ECG WHEN COMPARED WITH ECG OF 21-Feb-2023 08:39, NO SIGNIFICANT CHANGE WAS FOUND Confirmed by MD UREÑA VINAYAK ([id number]) on 01/05/2024 11:00:49 PM Test Reason : Dizziness Location : 191 : [facility] ED Overread By : MD UREÑA VINAYAK Edited By : MD UREÑA VINAYAK Referred By : , Acquired by : MATHEW YA [facility] ED NOTEon 12-31-2023 ED NOTE HNO ID: [id number] Author: PHILIP INFANTE, RN Service: Nursing Author Type: Registered Nurse Type: ED Notes Filed: 12/31/2023 11:50 Note Text: Patient leaves pleasant and cooperative, alert and oriented x 3 with regular and easy respirations. Discharge instructions discussed. There are no additional questions for the provider. Medications discussed with patients verbal understanding of purpose and potential side effects. Will follow up as directed or return to ED for worsening or life threatening symptoms. [facility] ED NOTE HNO ID: [id number] Author: MAGDI FLYNN, FOREIGN Service: Emergency Medicine Author Type: Registered Nurse Type: ED Notes Filed: 01/01/2024 09:04 Note Text: Patient Call Back Information How are you doing ? better Did we appropriately manage your pain? Yes Did you understand your discharge instructions? Yes Did you get your prescriptions filled? Yes Were you able to make a follow-up appointment with your physician? Yes Were you comfortable during your stay here? Yes Did a member of the ER nursing team round on you during your visit? Yes You will receive a patient satisfaction survey in the mail in the nest 2 weeks, please take the time to fill out the survey as your input from your ER visit is very important to us. Yes Can we do anything else to help you? No Normal [facility] ED NOTE HNO ID: [id number] Author: PHILIP INFANTE, FOREIGN Service: Nursing Author Type: Registered Nurse Type: ED Notes Filed: 12/31/2023 09:35 Note Text: EKG at bedside [facility] ED NOTE HNO ID: [id number] Author: RENUKA MOREL, FOREIGN Service: ? Author Type: Registered Nurse Type: ED Notes Filed: 12/31/2023 09:22 Note Text: Nih screening completed per dr washington [facility] ED NOTE HNO ID: [id number] Author: RENUKA MOREL, FOREIGN Service: ? Author Type: Registered Nurse Type: ED Notes Filed: 12/31/2023 09:18 Note Text: Dr washington at bedside for exam [facility] ED NOTE HNO ID: [id number] Author: RENUKA MOREL, FOREIGN Service: ? Author Type: Registered Nurse Type: ED Notes Filed: 12/31/2023 09:18 Note Text: Pt c/o dizziness since last night. Pt has not felt well for a few weeks. Pt has history of vertigo in the past. Normal [facility] ED PROV NOTEon 12-31-2023 ED PROV NOTE HNO ID: [id number] Author: IZZY MACDONALD DO Service: Emergency Medicine Author Type: Physician Type: ED Provider Notes Filed: 12/31/2023 12:09 Note Text: ED Provider Note Patient Name: Fannie Avalos : 1945 SERVICE DATE: 12/31/23 History Patient presents with: Dizziness Fannie Avalos is a 78 year old female with history of multiple chronic medical problems who presents with Dizziness. - Symptoms began last night. - Severity: moderate - Timing: intermittent - Quality: room spinning - Dizziness is exacerbated by movement. - Symptoms are associated with feeling fatigued for a couple weeks. - Symptoms are not associated with abdominal pain, chest pain, chills, diarrhea, fever, nausea, shortness of breath, URI symptoms, vomiting, headache, numbness, focal weakness, hearing changes. Patient presents states she that she has felt generally weak for the past couple weeks and last night she woke up feeling dizzy that she describes more of a room spinning sensation. She states that it felt similar to vertigo which she has had before, but she states it is continuing and she has not had episodes that lasts this long. No headache. No focal weakness. No numbness. She denies chest pain or shortness of breath. No abdominal pain, vomiting or diarrhea. She denies dark or bloody stools. No urinary symptoms. She does report a history of meningioma. 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 02/26/2005: CERVICAL SPONDYLOSIS No date: Diarrhea 01/06/2009: Diverticulosis of colon No date: Esophageal reflux 12/02/2017: Hemorrhage of rectum and anus 11/30/2008: HEMORRHOIDS NOS 03/18/2005: HYPERLIPIDEMIA NEC/NOS 01/26/2013: IBS (irritable bowel syndrome) 11/30/2008: Incontinence of feces 03/09/2021: Incontinence of feces No date: Osteopenia 01/13/2012: Palpitations 12/03/2017: Perforation of large intestine (HCC) 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, thoracic 06/17/2017: TIA (transient ischemic attack) Comment: CHIDI [place] PAST SURGICAL HISTORY 03/2018: CHOLECYSTECTOMY HX 10/20/2003: COLONOSCOPY FLX DX W/COLLJ SPEC WHEN PFRMD Comment: Colonoscopy 01/06/2009: COLONOSCOPY FLX DX W/COLLJ SPEC WHEN PFRMD Comment: Extensive diverticulosis/hemorrhoids 07/24/2012: COLONOSCOPY FLX DX W/COLLJ SPEC WHEN PFRMD Comment: [place] in [place] 12/02/2017: COLSC FLEXIBLE W/CONTROL BLEEDING ANY METHOD Comment: laser of cecal AVM 12/15/2017: DRAIN ABDOMINAL ABSCESS, PERCUTANEOUS Comment: perianastomotic abscess 12/02/2017: EGD 07/03/2012: ESOPHAGOGASTRODUODENOSCOPY TRANSORAL DIAGNOSTIC Comment: [place] 02/12/2022: GAMMA KNIFE 1FX TX DELIVERY Comment: x 3 on 01/15/22; 01/29/22; 02/12/22 10/26/2009: HEMORRHOIDECTOMY INT AND XTRNL 2/> COLUMN/HI 07/08/2011: LAMINECTOMY W/RMVL ABNORMAL FACETS LUMBAR Comment: CHIDI [place] 02/02/2009: LAPAROSCOPY COLECTOMY PARTIAL W/ANASTOMOSIS 12/03/2017: LAPAROSCOPY COLECTOMY PARTIAL W/ANASTOMOSIS; Right 02/02/2009: LAPS MOBLJ SPLENIC FLXR PFRMD W/PRTL COLECTOMY 1964: PAST SURGICAL HISTORY OF Comment: ovarian cyst removed 2001: PAST SURGICAL HISTORY OF Comment: BREAST BIOPSY--BENIGN 03/28/2018: PAST SURGICAL HISTORY OF Comment: Gallbladder removed 03/22/2009: SIGMOIDOSCOPY FLX CONTROL BLEEDING Comment: Granulation tissue at anastomosis 02/28/2011: SIGMOIDOSCOPY FLX W/BIOPSY SINGLE/MULTIPLE 02/1990: TOTAL ABDOMINAL HYSTERECT W/WO RMVL TUBE OVARY Comment: Hysterectomy, TERI, BSO FAMILY HISTORY Problem Relation Age of Onset Breast Cancer Mother dec. age 88 Blood Disease Father PE, post MVA, dec. 53yo Breast Cancer Sister Myositis Sister Inclusion Body Myositis None Sister Alzheimer's Disease Sister other (multiple myeloma) Brother Social History Tobacco Use Smoking status: Never Smokeless tobacco: Never Vaping Use Vaping status: Never Used Substance and Sexual Activity Alcohol use: No Drug use: No Sexual activity: Not on file ALLERGIES Allergen Reactions Bactrim [Sulfametho* GI Upset nausea Clindamycin Hcl GI Upset Flagyl [Metronidazo* GI Upset Gadolinium-Containi* Hives Gadolinium/Gadavist Trimethoprim Vomiting Levofloxacin GI Upset Review of Systems Constitutional: Positive for fatigue. Negative for chills and fever. HENT: Negative for facial swelling and trouble swallowing. Eyes: Negative for visual disturbance. Respiratory: Negative for shortness of breath. Cardiovascular: Negative for chest pain and leg swelling. Gastrointestinal: Negative for abdominal pain, diarrhea, nausea and vomiting. Genitourinary: Negative for dysuria, flank pain, hematuria and pelvic pain. Musculoskeletal: Negative for neck stiffness. Sk (more content not included)... Normal [facility] HIGH SENSITIVITY TROPONIN T (INITIAL)on 12-31-2023 Troponin T.cardiac High sensitivity method [Mass/Vol] 10 ng/L Normal <12 [facility] Comment on above: Order Comment: Speci men Type: BLOOD SPECIMENOrdering Facility: [facility] Address: [address] [place] [address] Performed By: #### L [id number] ####[facility] LABCLIA [id number] [address] [place] HIGH SENSITIVITY TROPONIN T (SECOND)on 12-31-2023 Troponin T.cardiac High sensitivity method [Mass/Vol] 9 ng/L Normal <12 [facility] Comment on above: Order Comment: Speci men Type: BLOOD SPECIMENOrdering Facility: [facility] Address: [address] [place] [address] Performed By: #### L [id number] ####[facility] LABCLIA [id number] [place] [address] [place] Magnesium SerPl-mCncon 12-30 Magnesium [Mass/Vol] 2.0 mg/dL Normal 1.7-2.3 [facility] Comment on above: Order Comment: Speci men Type: BLOOD SPECIMEN [facility] Address: [address] [place] [address] Performed By: #### 1 9123-9, 70109-4 #### [facility] CLIA [id number] [address] [place] [address] [facility] Urinalysis complete panel (U )on 12-31-2023 Bilirubin Ql (U) Negative Normal Negative [facility] Comment on above: Order Comment: Speci men Type: URINE SPECIMENOrdering Facility: [facility] Address: [address] [place] [address] Performed By: #### 2 4356-8 ####[facility] LABCLIA [id number] [place] [address] [facility] Clarity (Unsp spec) Clear Normal Clear [facility] Comment on above: Order Comment: Speci men Type: URINE SPECIMENOrdering Facility: [facility] Address: [address] [place] [address] Performed By: #### 2 4356-8 ####[facility]CLIA [id number] [place] [address] [facility] Color (U) Yellow Normal Yellow [facility] Comment on above: Order Comment: Speci men Type: URINE SPECIMENOrdering Facility: [facility] Address: [address] [place] [address] Performed By: #### 2 4356-8 ####[facility] LAB[facility] [id number] [place] [address] [facility] [place] Epithelial cells LM.HPF (Urine sed) [#/Area] Few Normal [facility] Comment on above: Order Comment: Speci men Type: URINE SPECIMENOrdering Facility: [facility] Address: [address] [place] [address] Result Comment: Few Performed By: #### 2 4356-8 ####[facility]CLIA [id number] [place] [address] [facility] Glucose Test strip (U) [Mass/Vol] Negative Normal Negative [facility] Comment on above: Order Comment: Speci men Type: URINE SPECIMENOrdering Facility: [facility] Address: [address] [place] [address] Performed By: #### 2 4356-8 ####[facility]CLIA [id number] [facility] [place] [address] [place] [facility] Hemoglobin Ql (U) Negative Normal Negative [facility] Comment on above: Order Comment: Speci men Type: URINE SPECIMENOrdering Facility: [facility] Address: [address] [place] [address] Performed By: #### 2 4356-8 ####[facility]CLIA [id number] [place] [address] [place] [facility] Ketones Ql (U) Negative Normal Negative [facility] Comment on above: Order Comment: Speci men Type: URINE SPECIMENOrdering Facility: [facility] Address: [address] [place] [address] Performed By: #### 2 4356-8 ####[facility]CLIA [id number] [place] [address] [place] Leukocyte esterase Test strip Ql (U) Trace Abnormal Negative [facility] Comment on above: Order Comment: Speci men Type: URINE SPECIMENOrdering Facility: [facility] Address: [address] [place] [address] Performed By: #### 2 4356-8 ####[facility]CLIA [id number] [place] [address] [place] Nitrite Ql (U) Negative Normal Negative [facility] Comment on above: Order Comment: Speci men Type: URINE SPECIMENOrdering Facility: [facility] Address: [address] [place] [address] Performed By: #### 2 4356-8 ####[facility] LABCLIA [id number] [place] [address] [place] pH (U) 7.5 [pH] Normal 5.0-8.0 [facility] Comment on above: Order Comment: Speci men Type: URINE SPECIMENOrdering Facility: [facility] Address: [address] [place] [address] Performed By: #### 2 4356-8 ####[facility] LABCLIA [id number] [place] [address] [facility] Protein (U) [Mass/Vol] Negative Normal Negative [facility] Comment on above: Order Comment: Speci men Type: URINE SPECIMENOrdering Facility: [facility] Address: [address] [place] [address] Performed By: #### 2 4356-8 ####[facility] LABCLIA [id number] [place] [address] [facility] RBC LM.HPF (Urine sed) [#/Area] 0-3 /HPF Normal 0-3 /HPF [facility] Comment on above: Order Comment: Speci men Type: URINE SPECIMENOrdering Facility: [facility] Address: [address] [place] [address] Performed By: #### 2 4356-8 ####[facility] LABCLIA [id number] [place] [address] [facility] Specific gravity (U) [Rel density] 1.015 Normal 1.005-1.03 0 [facility] Comment on above: Order Comment: Speci men Type: URINE SPECIMENOrdering Facility: [facility] Address: [address] [place] [address] Performed By: #### 2 4356-8 ####[facility] LABCLIA [id number] [place] [address] [facility] Urobilinogen Ql (U) 0.2 EU/dL Normal 0.2-1.0 EU/dL [facility] Comment on above: Order Comment: Speci men Type: URINE SPECIMENOrdering Facility: [facility] Address: [address] [place] [address] Performed By: #### 2 4356-8 ####[facility] LABCLIA [id number] [place] [id number] [place] WBC LM.HPF (Urine sed) [#/Area] 0-5 /HPF Normal 0-5 /HPF [facility] Comment on above: Order Comment: Speci men Type: URINE SPECIMENOrdering Facility: [facility] Address: [address] [place] [address] Performed By: #### 2 4356-8 ####[facility] LABCLAZ [id number] [place] [address] [place] XR CHEST 1V FRONTALon 2023 XR CHEST 1V FRONTAL * * *Final Report* * * DATE OF EXAM: Dec 31 2023 9:35AM LDX 5290 - XR CHEST 1V FRONTAL / PROCEDURE REASON: Dizziness * * * * Physician Interpretation * * * * EXAMINATION: CHEST RADIOGRAPH (SINGLE VIEW AP OR PA) CLINICAL HISTORY: Dizziness MQ: XC1_5 Comparison: Chest radiograph 01/15/2022 RESULT: Lines, tubes, and devices: None. Lungs and pleura: No consolidation. Scarring greatest at the lung apices. No pneumothorax. No pleural effusion. Cardiomediastinal silhouette: Normal cardiomediastinal silhouette. IMPRESSION: No acute radiographic abnormality. Addiction Medicine Physician: YIN Transcribe Date/Time: Dec 31 2023 9:55A Dictated by : RENUKA NARANJO MD This examination was interpreted and the report reviewed and electronically signed by: RENUKA NARANJO MD on Dec 31 2023 9:57AM EST [id number] Normal [facility] XR Knee - right 4 Viewson IMPRESSION: No acute bony abnormality or significant osteoarthritis.. Addiction Medicine Physician: PSCB Transcribe Date/Time: Oct 12 2023 1:22P Dictated by : GUNNER SWARTZ MD This examination was interpreted and the report reviewed and electronically signed by: GUNNER SWARTZ MD on Oct 12 2023 1:23PM EST DIVISION OF RADIOLOGY * * *Final Report* * * DATE OF EXAM: Oct 06 2023 2:39PM WOX 5203 - XR KNEE 4V AP/PA BOTH+LAT/ANDREINA RT / PROCEDURE REASON: Right knee pain, unspecified chronicity * * * * Physician Interpretation * * * * EXAMINATION / TECHNIQUE: XR KNEE 4V AP/PA BOTH+LAT/ANDREINA RT HISTORY: for the past several months whenever she in on the right knee will get a sharp pain lateral right patella area, standing is ok no inj Right knee pain, unspecified chronicity COMPARISON: 09/25/2010. RESULT: No acute fracture or osseous malalignment is identified. The joint spaces are preserved. There is chondrocalcinosis. No joint effusion. DIVISION OF RADIOLOGY Provider, Ron Crews - 10/12/2023 * * *Final Report* * * DATE OF EXAM: Oct 06 2023 2:39PM WOX 5203 - XR KNEE 4V AP/PA BOTH+LAT/ANDREINA RT / PROCEDURE REASON: Right knee pain, unspecified chronicity * * * * Physician Interpretation * * * * EXAMINATION / TECHNIQUE: XR KNEE 4V AP/PA BOTH+LAT/ANDREINA RT HISTORY: for the past several months whenever she in on the right knee will get a sharp pain lateral right patella area, standing is ok no inj Right knee pain, unspecified chronicity COMPARISON: 09/25/2010. RESULT: No acute fracture or osseous malalignment is identified. The joint spaces are preserved. There is chondrocalcinosis. No joint effusion. IMPRESSION IMPRESSION: No acute bony abnormality or significant osteoarthritis.. Addiction Medicine Physician: YIN Transcribe Date/Time: Oct 12 2023 1:22P Dictated by : GUNNER SWARTZ MD This examination was interpreted and the report reviewed and electronically signed by: GUNNER SWARTZ MD on Oct 12 2023 1:23PM EST [facility] XR Knee - right 4 ViewsOrder ed By: Ccf Provider on 10-12-2023 [facility] XR Knee - right 4 Viewson Radiology Study observation (narrative) [facility] Absolute lymphocyte countOrd ered By: Dona Kramer on 08-31-2023 Lymphocytes Auto (Unsp spec) [#/Vol] 1.27 10*3/uL 0.83-4.51 [facility] Automated lymphocyte count a s percentage of total leukocytesOrdered By: Dona Kramer on 08-31-2023 Lymphocytes/100 WBC Auto (Unsp spec) 28.0 % 19-41 [facility] Basophil percentageOrdered B y: Dona Kramer on 08-31-2023 Basophils/100 WBC (Bld) 0.4 % 0-1 [facility] Chloride [Moles/Vol] 106 mmol/L 98-107 [facility] Eosinophils/100 WBC (Bld) 5.1 % 0-5 [facility] Glucose [Mass/Vol] 95 mg/dL 74-106 [facility] Hemoglobin (Bld) [Mass/Vol] 13.4 g/dL 12.0-15.0 [facility] Monocytes/100 WBC (Bld) 9.3 % 0-10 [facility] Neutrophils (Bld) [#/Vol] 2.6 10*3/uL 2.0-7.7 [facility] Neutrophils/100 WBC (Bld) 56.8 % 47-70 [facility] Potassium [Moles/Vol] 3.7 mmol/L 3.5-5.1 [facility] Sodium [Moles/Vol] 144 mmol/L 136-145 [facility] WBC (Bld) [#/Vol] 4.5 10*3/uL 4.4-11.0 [facility] Determination of erythrocyte mean corpuscular volume (MCV)Ordered By: Dona Kramer on 08-31-2023 MCV (RBC) [Entitic vol] 99.0 fL 81-99 [facility] Erythrocyte distribution wid th ratioOrdered By: Dona Kramer on 08-31-2023 Erythrocyte distribution width (RBC) [Ratio] 11.8 % 11.6-14.6 [facility] Erythrocyte distribution wid th standard deviationOrdered By: Dona Kramer on 08-31-2023 Erythrocyte distribution width (RBC) [Entitic vol] 42.6 fL 35.1-43.9 [facility] Hematocrit Auto (Bld) [Volum e fraction]Ordered By: [facility] Kramer on 08-31-2023 Hematocrit (Bld) [Volume fraction] 40.3 % 37-47 [facility] Immature granulocytes/100 WB C Auto (Bld)Ordered By: Dona Kramer on 08-31-2023 Immature granulocytes/100 WBC (Bld) 0.400 % 0.0-0.9 [facility] Comment on above: IG% - Immature Granu locytes (promyelocytes, myelocytes and metamyelocytes) > 1% indicates that a LEFT SHIFT is Present. Laboratory - Chemistry and C hemistry - challengeOrdered By: Dona Kramer on 08-31-2023 CO2 [Moles/Vol] 30.0 mmol/L 21.0-32.0 [facility] Urea nitrogen/Creatinine [Mass ratio] 24.0 mg/mg 10-20 [facility] Laboratory - Hematology and Cell countsOrdered By: Dona Kramer on 08-31-2023 MCH (RBC) [Entitic mass] 32.9 pg 27.0-32.0 [facility] MCHC (RBC) [Mass/Vol] 33.3 g/dL 32-36 [facility] Nucleated RBC/100 WBC (Bld) [Ratio] 0 % 0-5 [facility] Platelet mean volume (Bld) [Entitic vol] 9.9 fL 6.2-12.0 [facility] Platelets (Bld) [#/Vol] 237 10*3/uL 150-450 [facility] No Panel InformationOrdered By: Dona Kramer on 08-31-2023 Estimated Creatinine Clearance Calc 47.17 ml/min [facility] Estimated GFR (MDRD) Amer 110 mL/min >60 [facility] Comment on above: GFR Calc Estimated GFR (MDRD) Non-Af Amer 91 mL/min >60 [facility] Comment on above: Non- GFR Calc Troponin I High Sensitivity 7 pg/mL 3.0-54.0 [facility] Comment on above: Please Note: New [place] t Units and Gender Specific Reference Ranges. For more information see Policy Stat Procedure [place] High Sensitivity Troponin (TNIH) and attachments. RBC Auto (Bld) [#/Vol]Ordere d By: Dona Kramer on 08-31-2023 RBC (Bld) [#/Vol] 4.07 10*6/uL 4.2-5.4 [facility] Serum or plasma calcium kehinde urement (mass/volume)Ordered By: Dona Kramer on 08-31-2023 Calcium [Mass/Vol] 9.2 mg/dL 8.5-10.1 [facility] Serum or plasma creatinine m easurement (mass/volume)Ordered By: Dona Kramer on 08-31-2023 Creatinine [Mass/Vol] 0.67 mg/dL 0.55-1.02 [facility] Comment on above: The validity of the calculated GFR & GFRAA in patients over 70 years has not been determined. Clinical correlation is essential. Serum or plasma urea nitroge n measurement (mass/volume)Ordered By: Dona Kramer on 08-31-2023 Urea nitrogen [Mass/Vol] 16 mg/dL 7-18 [facility] Thin prep Papanicolaou smear with manual screeningOrdered By: Dona Kramer on 08-31-2023 Thin prep Papanicolaou smear with manual screening 8 5-15 [facility] Absolute lymphocyte countOrd ered By: Baron Reid on 04-01-2023 Lymphocytes Auto (Unsp spec) [#/Vol] 1.04 10*3/uL 0.83-4.51 [facility] Basophil percentageOrdered B y: Baron Reid on 04-01-2023 Basophils/100 WBC (Bld) 0.5 % 0-1 [facility] Eosinophils/100 WBC (Bld) 7.8 % 0-5 [facility] Neutrophils (Bld) [#/Vol] 2.2 10*3/uL 2.0-7.7 [facility] Neutrophils/100 WBC (Bld) 54.7 % 47-70 [facility] WBC (Bld) [#/Vol] 4.0 10*3/uL 4.4-11.0 [facility] Blood erythrocytes count (nu mber/volume)Ordered By: Baron Reid on 04-01-2023 RBC (Bld) [#/Vol] 3.21 10*6/uL 4.2-5.4 [facility] Blood hemoglobin measurement (mass/volume)Ordered By: Baron Reid on 04-01-2023 Hemoglobin (Bld) [Mass/Vol] 10.7 g/dL 12.0-15.0 [facility] Blood lymphocytes/100 leukoc ytesOrdered By: Baron Reid on 04-01-2023 Lymphocytes/100 WBC (Bld) 26.1 % 19-41 [facility] Blood monocytes/100 leukocyt esOrdered By: Baron Reid on 04-01-2023 Monocytes/100 WBC (Bld) 10.6 % 0-10 [facility] Blood platelet mean volumeOr dered By: Baron Reid on 04-01-2023 Platelet mean volume (Bld) [Entitic vol] 9.6 fL 6.2-12.0 [facility] Determination of erythrocyte mean corpuscular volume (MCV)Ordered By: Baron Reid on 04-01-2023 MCV (RBC) [Entitic vol] 100.0 fL 81-99 [facility] Hematocrit Auto (Bld) [Volum e fraction]Ordered By: Baron Reid on 04-01-2023 Hematocrit (Bld) [Volume fraction] 32.1 % 37-47 [facility] Laboratory - Hematology and Cell countsOrdered By: Baron Reid on 04-01-2023 Erythrocyte distribution width (RBC) [Entitic vol] 43.8 fL 35.1-43.9 [facility] Erythrocyte distribution width (RBC) [Ratio] 12.1 % 11.6-14.6 [facility] Immature granulocytes/100 WBC (Bld) 0.300 % 0.0-0.9 [facility] Comment on above: IG% - Immature Granu locytes (promyelocytes, myelocytes and metamyelocytes) > 1% indicates that a LEFT SHIFT is Present. MCH (RBC) [Entitic mass] 33.3 pg 27.0-32.0 [facility] Nucleated RBC/100 WBC (Bld) [Ratio] 0 % 0-5 [facility] MCHC Auto (RBC) [Mass/Vol]Or dered By: Baron Reid on 04-01-2023 MCHC (RBC) [Mass/Vol] 33.3 g/dL 32-36 [facility] Platelets bldOrdered By: Robert Reid on 04-01-2023 Platelets (Bld) [#/Vol] 189 10*3/uL 150-450 [facility] Lower GI hemoglobin IA Ql (S tl)Ordered By: Arely Mehta on 02-23-2023 Stool Occult Blood (PAUL) Positive [facility] MRI BRAIN WO/W IVCONon 08-29 [facility] Basophil percentageon 2021 Chloride [Moles/Vol] 105 mmol/L 98-107 [facility] Work Phone: Glucose [Mass/Vol] 98 mg/dL 74-106 [facility] Work Phone: Potassium [Moles/Vol] 3.5 mmol/L 3.5-5.1 [facility] Work Phone: Sodium [Moles/Vol] 141 mmol/L 136-145 [facility] Work Phone: Laboratory - Chemistry and C hemistry - challengeon 03-27-2022 CO2 [Moles/Vol] 35.0 mmol/L 21.0-32.0 [facility] Work Phone: Magnesium [Mass/Vol] 2.3 mg/dL 1.6-2.6 [facility] Work Phone: Urea nitrogen/Creatinine [Mass ratio] 21.2 mg/mg 10-20 [facility] Work Phone: No Panel Informationon 03-27 Estimated GFR (MDRD) Amer 121 mL/min >60 [facility] Work Phone: Comment on above: GFR Calc Estimated GFR (MDRD) Non-Af Amer 100 mL/min >60 [facility] Work Phone: Comment on above: Non- GFR Calc Thyroid Stimulating Hormone (TSH) 1.17 uIU/mL 0.358-3.74 [facility] Work Phone: Serum or plasma calcium kehinde urement (mass/volume)on 03-27-2022 Calcium [Mass/Vol] 9.8 mg/dL 8.5-10.1 [facility] Work Phone: Serum or plasma creatinine m easurement (mass/volume)on 03-27-2022 Creatinine [Mass/Vol] 0.61 mg/dL 0.55-1.02 [facility] Work Phone: Comment on above: The validity of the calculated GFR & GFRAA in patients over 70 years has not been determined. Clinical correlation is essential. Serum or plasma urea nitroge n measurement (mass/volume)on 03-27-2022 Urea nitrogen [Mass/Vol] 13 mg/dL 7-18 [facility] Work Phone: Thin prep Papanicolaou smear with manual screeningon 03-27-2022 Thin prep Papanicolaou smear with manual screening 1 -15 [facility] Work Phone: [phone] ARLENE SCREENINGon 03-05-[address] [facility] [address] BRAIN WO IVCONon 02-13-[address] [facility] [address] BRAIN WO IVCONon 01-16-20 [facility] Absolute lymphocyte counton 11-19-2021 Lymphocytes Auto (Unsp spec) [#/Vol] 1.36 10*3/uL 0.83-4.51 [facility] Work Phone: Basophil percentageon 2021 Basophils/100 WBC (Bld) 0.4 % 0-1 [facility] Work Phone: Chloride [Moles/Vol] 108 mmol/L 98-107 [facility] Work Phone: Eosinophils/100 WBC (Bld) 3.3 % 0-5 [facility] Work Phone: Glucose [Mass/Vol] 95 mg/dL 74-106 [facility] Work Phone: Neutrophils (Bld) [#/Vol] 2.6 10*3/uL 2.0-7.7 [facility] Work Phone: Neutrophils/100 WBC (Bld) 57.3 % 47-70 [facility] Work Phone: Potassium [Moles/Vol] 3.8 mmol/L 3.5-5.1 [facility] ster [facility] Work Phone: Sodium [Moles/Vol] 141 mmol/L 136-145 [facility] Work Phone: WBC (Bld) [#/Vol] 4.5 10*3/uL 4.4-11.0 [facility] Work Phone: Blood erythrocytes count (nu mber/volume)on 11-19-2021 RBC (Bld) [#/Vol] 4.28 10*6/uL 4.2-5.4 [facility] Work Phone: [phone] Blood hemoglobin measurement (mass/volume)on 11-19-2021 Hemoglobin (Bld) [Mass/Vol] 14.2 g/dL 12.0-15.0 [facility] Work Phone: Blood lymphocytes/100 leukoc yteson 11-19-2021 Lymphocytes/100 WBC (Bld) 30.0 % 19-41 [facility] Work Phone: Blood monocytes/100 leukocyt eson 11-19-2021 Monocytes/100 WBC (Bld) 8.6 % 0-10 [facility] Work Phone: Blood platelet mean volumeon 11-19-2021 Platelet mean volume (Bld) [Entitic vol] 9.9 fL 6.2-12.0 [facility] Work Phone: [phone] Determination of erythrocyte mean corpuscular volume (MCV)on 11-19-2021 MCV (RBC) [Entitic vol] 99.1 fL 81-99 [facility] Work Phone: [phone] Hematocrit Auto (Bld) [Volum e fraction]on 11-19-2021 Hematocrit (Bld) [Volume fraction] 42.4 % 37-47 [facility] Work Phone: Laboratory - Chemistry and C hemistry - challengeon 11-19-2021 CO2 [Moles/Vol] 32.0 mmol/L 21.0-32.0 [facility] Work Phone: [phone] Urea nitrogen/Creatinine [Mass ratio] 17.9 mg/mg 10-20 [facility] Work Phone: [phone] Laboratory - Hematology and Cell countson 11-19-2021 Erythrocyte distribution width (RBC) [Entitic vol] 41.9 fL 35.1-43.9 [facility] Work Phone: [phone] Erythrocyte distribution width (RBC) [Ratio] 11.6 % 11.6-14.6 [facility] Work Phone: Immature granulocytes/100 WBC (Bld) 0.400 % 0.0-0.9 [facility] Work Phone: Comment on above: IG% - Immature Granu locytes (promyelocytes, myelocytes and metamyelocytes) > 1% indicates that a LEFT SHIFT is Present. MCH (RBC) [Entitic mass] 33.2 pg 27.0-32.0 [facility] Work Phone: Nucleated RBC/100 WBC (Bld) [Ratio] 0 % 0-5 [facility] Work Phone: MCHC Auto (RBC) [Mass/Vol]on 11-19-2021 MCHC (RBC) [Mass/Vol] 33.5 g/dL 32-36 [facility] Work Phone: No Panel Informationon 11-19 Estimated Creatinine Clearance Calc 38.35 ml/min [facility] Work Phone: Estimated GFR (MDRD) Amer 109 mL/min >60 [facility] Work Phone: Comment on above: GFR Calc Estimated GFR (MDRD) Non-Af Amer 90 mL/min >60 [facility] Work Phone: Comment on above: Non- GFR Calc Platelets bldon 11-19-2021 Platelets (Bld) [#/Vol] 226 10*3/uL 150-450 [facility] Work Phone: Serum or plasma calcium kehinde urement (mass/volume)on 11-19-2021 Calcium [Mass/Vol] 9.5 mg/dL 8.5-10.1 [facility] Work Phone: Serum or plasma creatinine m easurement (mass/volume)on 11-19-2021 Creatinine [Mass/Vol] 0.67 mg/dL 0.55-1.02 [facility] Work Phone: Comment on above: The validity of the calculated GFR & GFRAA in patients over 70 years has not been determined. Clinical correlation is essential. Serum or plasma urea nitroge n measurement (mass/volume)on 11-19-2021 Urea nitrogen [Mass/Vol] 12 mg/dL 7-18 [facility] Work Phone: Thin prep Papanicolaou smear with manual screeningon 11-19-2021 Thin prep Papanicolaou smear with manual screening 1 5-15 [facility] Work Phone: XR Foot - left AP and Latera l and obliqueon 10-25-2021 IMPRESSION: No acute osseous abnormality. Distal Achilles tendinosis. Addiction Medicine Physician: YIN Transcribe Date/Time: Oct 25 2021 12:07P Dictated by : NIKKO GRADY DO This examination was interpreted and the report reviewed and electronically signed by: NIKKO GRADY DO on Oct 25 2021 12:10PM EST GABRIELA_DO_NOT _USE_DIVIS ION OF RADIOLOGY * * *Final Report* * * DATE OF EXAM: Oct 24 2021 12:20PM WOX [id number] - XR FOOT 3V AP/LAT/OBL LT / PROCEDURE REASON: Pain of left heel * * * * Physician Interpretation * * * * EXAMINATION: XR FOOT 3V AP/LAT/OBL LT PATIENT/TECHNOLOGIST PROVIDED HISTORY: Left planter heel pain x 1 week without injury CLINICAL INFORMATION: 76 years old Female with Pain of left heel TECHNIQUE: XR FOOT 3V AP/LAT/OBL LT Laterality: LEFT Number of different views (projections): 3 COMPARISON: None RESULT: No fracture. Scattered degenerative changes at the interphalangeal joints. Joint spaces are otherwise maintained. Osteopenia. Thickening of the distal Achilles tendon with calcification indicating tendinosis. GABRIELA_DO_NOT _USE_DIVIS ION OF RADIOLOGY Provider, [facility] - 10/25/2021 * * *Final Report* * * DATE OF EXAM: Oct 24 2021 12:20PM [id number] - XR FOOT 3V AP/LAT/OBL LT / PROCEDURE REASON: Pain of left heel * * * * Physician Interpretation * * * * EXAMINATION: XR FOOT 3V AP/LAT/OBL LT PATIENT/TECHNOLOGIST PROVIDED HISTORY: Left planter heel pain x 1 week without injury CLINICAL INFORMATION: 76 years old Female with Pain of left heel TECHNIQUE: XR FOOT 3V AP/LAT/OBL LT Laterality: LEFT Number of different views (projections): 3 COMPARISON: None RESULT: No fracture. Scattered degenerative changes at the interphalangeal joints. Joint spaces are otherwise maintained. Osteopenia. Thickening of the distal Achilles tendon with calcification indicating tendinosis. IMPRESSION IMPRESSION: No acute osseous abnormality. Distal Achilles tendinosis. Addiction Medicine Physician: YIN Transcribe Date/Time: Oct 25 2021 12:07P Dictated by : NIKKO GRADY DO This examination was interpreted and the report reviewed and electronically signed by: NIKKO GRADY DO on Oct 25 2021 12:10PM EST [facility] XR Foot - left AP and Latera l and obliqueOrdered By: [facility] Provider on 10-25-2021 [facility] XR Foot - left AP and Latera l and obliqueon 10-24-2021 Radiology Study observation (narrative) [facility] Basophil percentageon 2021 Basophil percentage < 0.9 mg/dL 0.55-1.02 [facility] Work Phone: No Panel Informationon 09-03 Bedside Estimated GFR (eGFR) > 60.0000 mL/min >60 [facility] Work Phone: RA CT CARDIAC SCORINGon CT CARDIAC SCORING Patient Name: FANNIE AVALOS STUDY: CT CARDIAC SCORING; 10/25/2019 2:03 pm INDICATION: SCREENING FOR HEART DISEASE. COMPARISON: None. ACCESSION NUMBER(S): [id number] ORDERING CLINICIAN: GAVIN TRAN TECHNIQUE: Using prospective ECG gating, CT scan of the coronary arteries was performed without intravenous contrast. Coronary calcium scoring was performed according to the method of Agatston. FINDINGS: The score and distribution of calcium in the coronary arteries is as follows: LM: 94.97. LAD: 90.31. LCx: 0. RCA: 2.49. Total: 187.77. The visualized segments of the lungs demonstrate mild atelectasis and/or scarring. There is a small calcified granuloma in the left upper lobe. The visualized mid/lower ascending thoracic aorta measures 3.4 cm in diameter. The heart is mildly enlarged. No pericardial effusion is present. No gross evidence of mediastinal or hilar lymphadenopathy is identified. The visualized subdiaphragmatic structures appear grossly intact. IMPRESSION: 1. Coronary artery calcium score of 27.77. *Coronary artery calcium scoring may be helpful in predicting the risk for future coronary heart disease events. According to the [employer] Clinical Expert Consensus Task Force, such testing provides important prognostic information in patients with more than one coronary heart disease risk factor. The coronary artery calcium score correlates with the annual risk of a non-fatal myocardial infarction or coronary heart disease . Coronary artery score Annual Risk 0-99 0.4% 100-399 1.3% >400 2.4% These three breakpoints correspond to lower, intermediate and high risk states for future coronary events. Such information should be used, along with appropriate clinical judgment, to make decisions regarding the intensity of risk factor management strategies to treat blood lipids and to modify other non-lipid coronary risk factors. Reference: [place] P et al. Circulation. 2007; 115:402-426 Electronically signed by: SHOLA SINHA MD Normal [facility] MR-Brain W/WO Contrast IMPOR Ton 09-28-2019 MR-Brain W/WO Contrast IMPORT Images were obtained outside of [facility] Normal [facility] Lower GI hemoglobin IA Ql (S tl) Stool Occult Blood (PAUL) Positive [facility] Work Phone: Vital Signs Date Time Vital Sign Value Performing Clinician Rizwana vazquez 12-17-2024 11:18-0400 Body mass index (BMI) [Ratio] 24.62 kg/m2 Rosa Isela Child MD Work Phone: [facility] 12-17-2024 11:18-0400 Body weight 63.05 kg Rosa Isela Child MD Work Phone: [facility] 12-17-2024 11:18-0400 Diastolic blood pressure 78 mm[Hg] Rosa Isela Child MD Work Phone: [facility] 12-17-2024 11:18-0400 Systolic blood pressure 130 mm[Hg] Rosa Isela Child MD Work Phone: [facility] 11-30-2024 10:40-0400 Body height 160 cm Bernabe Cox MD Work Phone: [facility] 11-30-2024 10:40-0400 Body mass index (BMI) [Ratio] 24.21 kg/m2 Bernabe Cox MD Work Phone: [facility] 11-30-2024 10:40-0400 Body weight 62 kg Bernabe Cox MD Work Phone: [facility] 11-30-2024 10:40-0400 Diastolic blood pressure 75 mm[Hg] Bernabe Cox MD Work Phone: [facility] 11-30-2024 10:40-0400 Heart rate 69 /min Bernabe Cox MD Work Phone: [facility] 11-30-2024 10:40-0400 Respiratory rate 16 /min Bernabe Cox MD Work Phone: [facility] 11-30-2024 10:40-0400 SaO2% (BldA) [Mass fraction] 98 % Bernabe Cox MD Work Phone: [facility] 11-30-2024 10:40-0400 Systolic blood pressure 116 mm[Hg] Bernabe Cox MD Work Phone: [facility] 11-28-2024 09:50-0400 Body mass index (BMI) [Ratio] 24.1 kg/m2 Leslie Swank SENIOR GAMES TECHNICIAN.FINANCE SPECIALIST Work Phone: [facility] 11-28-2024 09:50-0400 Body temperature 97.81 [degF] Leslie Swank SENIOR GAMES TECHNICIAN.FINANCE SPECIALIST Work Phone: [facility] 11-28-2024 09:50-0400 Body weight 61.7 kg Leslie Swank SENIOR GAMES TECHNICIAN.FINANCE SPECIALIST Work Phone: [facility] 11-28-2024 09:50-0400 Diastolic blood pressure 72 mm[Hg] Leslie Swank SENIOR GAMES TECHNICIAN.FINANCE SPECIALIST Work Phone: [facility] 11-28-2024 09:50-0400 Heart rate 73 /min Leslie Swank SENIOR GAMES TECHNICIAN.FINANCE SPECIALIST Work Phone: [facility] 11-28-2024 09:50-0400 Respiratory rate 16 /min Leslie Swank SENIOR GAMES TECHNICIAN.FINANCE SPECIALIST Work Phone: [facility] 11-28-2024 09:50-0400 SaO2% (BldA) [Mass fraction] 98 % Leslie Swank SENIOR GAMES TECHNICIAN.FINANCE SPECIALIST Work Phone: [facility] 11-28-2024 09:50-0400 Systolic blood pressure 126 mm[Hg] Leslie Swank SENIOR GAMES TECHNICIAN.FINANCE SPECIALIST Work Phone: [facility] 11-23-2024 15:48-0400 Diastolic blood pressure 60 mm[Hg] Dr. Gavin Tran MD Work Phone: [phone] [place] [address] 11-23-2024 15:48-0400 Systolic blood pressure 102 mm[Hg] Dr. Gavin Tran MD Work Phone: [phone] [address] 11-23-2024 08:36-0400 Body height 161.[address] Gavin Tran MD Work Phone: [phone] [place] [address] 11-23-2024 08:36-0400 Body mass index (BMI) [Ratio] 23.7 kg/m2 Dr. Gavin Tran MD Work Phone: [phone] [place] [address] 11-23-2024 08:36-0400 Body weight 61.[address] Gavin Tran MD Work Phone: [phone] [place] [address] 11-23-2024 08:36-0400 Diastolic blood pressure 66 mm[Hg] Dr. Gavin Tran MD Work Phone: [phone] [place] [address] 11-23-2024 08:36-0400 Heart rate 69 /min Dr. Gavin Tran MD Work Phone: [phone] [place] [address] 11-23-2024 08:36-0400 Respiratory rate 18 /min Dr. Gavin Tran MD Work Phone: [facility] 11-23-2024 08:36-0400 SaO2% (BldA) [Mass fraction] 98 % Dr. Gavin Tran MD Work Phone: [facility] 11-23-2024 08:36-0400 Systolic blood pressure 106 mm[Hg] Dr. Gavin Tran MD Work Phone: [facility] 10-04-2024 09:14-0400 Body mass index (BMI) [Ratio] 23.91 kg/m2 Jeannine Haury SENIOR GAMES TECHNICIAN.FINANCE SPECIALIST Work Phone: [facility] 10-04-2024 09:14-0400 Body weight 61.24 kg Jeannine Haury SENIOR GAMES TECHNICIAN.FINANCE SPECIALIST Work Phone: [facility] 10-04-2024 09:14-0400 Diastolic blood pressure 70 mm[Hg] Jeannine Haury SENIOR GAMES TECHNICIAN.FINANCE SPECIALIST Work Phone: [facility] 10-04-2024 09:14-0400 Systolic blood pressure 122 mm[Hg] Jeannine Haury SENIOR GAMES TECHNICIAN.FINANCE SPECIALIST Work Phone: [facility] 09-28-2024 08:41-0400 Body mass index (BMI) [Ratio] 24.25 kg/m2 Gavin Tran MD Work Phone: [facility] 09-28-2024 08:41-0400 Body temperature 98.91 [degF] Gavin Tran MD Work Phone: [facility] 09-28-2024 08:41-0400 Body weight 62.1 kg Gavin Tran MD Work Phone: [facility] 09-28-2024 08:41-0400 Diastolic blood pressure 66 mm[Hg] Gavin Tran MD Work Phone: [facility] 09-28-2024 08:41-0400 Heart rate 76 /min Gavin Tran MD Work Phone: [facility] 09-28-2024 08:41-0400 Respiratory rate 16 /min Gavin Tran MD Work Phone: [facility] 09-28-2024 08:41-0400 Systolic blood pressure 114 mm[Hg] Gavin Tran MD Work Phone: [facility] 2024 15:20-0400 Body mass index (BMI) [Ratio] 23.43 kg/m2 Júnior Heredia SENIOR GAMES TECHNICIAN.CIVILIAN JAIL OFFICER Work Phone: [facility] 2024 15:20-0400 Body weight 60 kg Júnior Heredia SENIOR GAMES TECHNICIAN.CN S Work Phone: [facility] 2024 15:20-0400 Diastolic blood pressure 73 mm[Hg] Júnior Heredia SENIOR GAMES TECHNICIAN.CIVILIAN JAIL OFFICER Work Phone: [facility] 2024 15:20-0400 Heart rate 76 /min Júnior Heredia SENIOR GAMES TECHNICIAN.CN S Work Phone: [facility] 2024 15:20-0400 Respiratory rate 16 /min Júnior Heredia SENIOR GAMES TECHNICIAN.CN S Work Phone: [facility] 2024 15:20-0400 Systolic blood pressure 133 mm[Hg] Júnior Heredia SENIOR GAMES TECHNICIAN.CIVILIAN JAIL OFFICER Work Phone: [facility] 08-31-2024 10:38-0400 Body height 160 cm Bernabe Cox MD Work Phone: [facility] 08-31-2024 10:38-0400 Body mass index (BMI) [Ratio] 23.86 kg/m2 Bernabe Cox MD Work Phone: [facility] 08-31-2024 10:38-0400 Body weight 61.1 kg Bernabe Cox MD Work Phone: [facility] 08-31-2024 10:38-0400 Diastolic blood pressure 71 mm[Hg] Bernabe Cox MD Work Phone: [facility] 08-31-2024 10:38-0400 Heart rate 70 /min Bernabe Cox MD Work Phone: [facility] 08-31-2024 10:38-0400 Respiratory rate 16 /min Bernabe Cox MD Work Phone: [facility] 08-31-2024 10:38-0400 SaO2% (BldA) [Mass fraction] 98 % Bernabe Cox MD Work Phone: [facility] 08-31-2024 10:38-0400 Systolic blood pressure 112 mm[Hg] Bernabe Cox MD Work Phone: [facility] 04-13-2024 09:30-0500 Body mass index (BMI) [Ratio] 23.94 kg/m2 Catina Denny SENIOR GAMES TECHNICIAN.FINANCE SPECIALIST Work Phone: [facility] 04-13-2024 09:30-0500 Body weight 61.3 kg Catina Denny SENIOR GAMES TECHNICIAN.FINANCE SPECIALIST Work Phone: [facility] 04-13-2024 09:30-0500 Diastolic blood pressure 60 mm[Hg] Catina Denny SENIOR GAMES TECHNICIAN.FINANCE SPECIALIST Work Phone: [facility] 04-13-2024 09:30-0500 Heart rate 81 /min Catina Denny SENIOR GAMES TECHNICIAN.FINANCE SPECIALIST Work Phone: [facility] 04-13-2024 09:30-0500 SaO2% (BldA) [Mass fraction] 98 % Catina Denny SENIOR GAMES TECHNICIAN.FINANCE SPECIALIST Work Phone: [facility] 04-13-2024 09:30-0500 Systolic blood pressure 118 mm[Hg] Catina Denny SENIOR GAMES TECHNICIAN.FINANCE SPECIALIST Work Phone: [facility] 03-29-2024 12:11-0500 Body height 160 cm Gavin Tran MD Work Phone: [facility] 03-29-2024 12:11-0500 Body mass index (BMI) [Ratio] 24.41 kg/m2 Gavin Tran MD Work Phone: [facility] 03-29-2024 12:11-0500 Body temperature 98.2 [degF] Gavin Tran MD Work Phone: [facility] 03-29-2024 12:11-0500 Body weight 62.5 kg Gavin Tran MD Work Phone: [facility] 03-29-2024 12:11-0500 Diastolic blood pressure 66 mm[Hg] Gavin Tran MD Work Phone: [facility] 03-29-2024 12:11-0500 Heart rate 68 /min Gavin Tran MD Work Phone: [facility] 03-29-2024 12:11-0500 Systolic blood pressure 118 mm[Hg] Gavin Tran MD Work Phone: [facility] 02-28-2024 11:22-0500 Body height 160 cm Gavin Tran MD Work Phone: [facility] 02-28-2024 11:22-0500 Body mass index (BMI) [Ratio] 24.45 kg/m2 Gavin Tran MD Work Phone: [facility] 02-28-2024 11:22-0500 Body weight 62.6 kg Gavin Tran MD Work Phone: [facility] 02-28-2024 11:22-0500 Diastolic blood pressure 60 mm[Hg] Gavin Tran MD Work Phone: [facility] 02-28-2024 11:22-0500 Heart rate 69 /min Gavin Tran MD Work Phone: [facility] 02-28-2024 11:22-0500 Respiratory rate 12 /min Gavin Tran MD Work Phone: [facility] 02-28-2024 11:22-0500 SaO2% (BldA) [Mass fraction] 99 % Gavin Tran MD Work Phone: [facility] 02-28-2024 11:22-0500 Systolic blood pressure 124 mm[Hg] Gavin Tran MD Work Phone: [facility] 02-27-2024 12:03-0500 Body mass index (BMI) [Ratio] 24.45 kg/m2 Izzy Aranda SENIOR GAMES TECHNICIAN.FINANCE SPECIALIST Work Phone: [facility] 02-27-2024 12:03-0500 Body temperature 97.81 [degF] Izzy Aranda SENIOR GAMES TECHNICIAN.FINANCE SPECIALIST Work Phone: [facility] 02-27-2024 12:03-0500 Body weight 62.6 kg Izzy Aranda SENIOR GAMES TECHNICIAN.FINANCE SPECIALIST Work Phone: [facility] 02-27-2024 12:03-0500 Diastolic blood pressure 75 mm[Hg] Izzy Aranda SENIOR GAMES TECHNICIAN.FINANCE SPECIALIST Work Phone: [facility] 02-27-2024 12:03-0500 Heart rate 72 /min Izzy Aranda SENIOR GAMES TECHNICIAN.FINANCE SPECIALIST Work Phone: [facility] 02-27-2024 12:03-0500 Respiratory rate 16 /min Izzy Aranda SENIOR GAMES TECHNICIAN.FINANCE SPECIALIST Work Phone: [facility] 02-27-2024 12:03-0500 SaO2% (BldA) [Mass fraction] 98 % Izzy Aranda SENIOR GAMES TECHNICIAN.FINANCE SPECIALIST Work Phone: [facility] 02-27-2024 12:03-0500 Systolic blood pressure 135 mm[Hg] Izzy Aranda SENIOR GAMES TECHNICIAN.FINANCE SPECIALIST Work Phone: [facility] 01-28-2024 09:48-0400 Body height 160 cm Sharif Farmer MD Work Phone: [facility] 01-28-2024 09:48-0400 Body mass index (BMI) [Ratio] 24.09 kg/m2 Sharif Farmer MD Work Phone: [facility] 01-28-2024 09:48-0400 Body weight 61.69 kg Sharif Farmer MD Work Phone: [facility] 01-28-2024 09:48-0400 Diastolic blood pressure 81 mm[Hg] Sharif Farmer MD Work Phone: [facility] 01-28-2024 09:48-0400 Heart rate 71 /min Sharif Farmer MD Work Phone: [facility] 01-28-2024 09:48-0400 Systolic blood pressure 144 mm[Hg] Sharif Farmer MD Work Phone: [facility] 01-08-2024 14:22-0400 Diastolic blood pressure 79 mm[Hg] Gavin Tran MD Work Phone: [facility] 01-08-2024 14:22-0400 Heart rate 80 /min Gavin Tran MD Work Phone: [facility] 01-08-2024 14:22-0400 Systolic blood pressure 117 mm[Hg] Gavin Tran MD Work Phone: [facility] 01-08-2024 14:17-0400 Body mass index (BMI) [Ratio] 24.56 kg/m2 Gavin Tran MD Work Phone: [facility] 01-08-2024 14:17-0400 Body temperature 98.01 [degF] Gavin Tran MD Work Phone: [facility] 01-08-2024 14:17-0400 Body weight 62.1 kg Gavin Tran MD Work Phone: [facility] 12-16-2023 10:43-0400 Body mass index (BMI) [Ratio] 24.44 kg/m2 Catina Reddy APRN.FINANCE SPECIALIST Work Phone: [facility] 12-16-2023 10:43-0400 Body weight 61.8 kg Catina Reddy APRN.FINANCE SPECIALIST Work Phone: [facility] 12-16-2023 10:43-0400 Diastolic blood pressure 78 mm[Hg] Catina Reddy APRN.FINANCE SPECIALIST Work Phone: [facility] 12-16-2023 10:43-0400 Heart rate 78 /min Catina Denny SENIOR GAMES TECHNICIAN.FINANCE SPECIALIST Work Phone: [facility] 12-16-2023 10:43-0400 Respiratory rate 18 /min Catina Denny SENIOR GAMES TECHNICIAN.FINANCE SPECIALIST Work Phone: [facility] 12-16-2023 10:43-0400 SaO2% (BldA) [Mass fraction] 98 % Catina Denny SENIOR GAMES TECHNICIAN.FINANCE SPECIALIST Work Phone: [facility] 12-16-2023 10:43-0400 Systolic blood pressure 132 mm[Hg] Catina Denny SENIOR GAMES TECHNICIAN.FINANCE SPECIALIST Work Phone: [facility] 11-27-2023 13:44-0400 Body mass index (BMI) [Ratio] 24.21 kg/m2 Krislyn Aberegg PA Work Phone: [facility] 11-27-2023 13:44-0400 Body temperature 98.2 [degF] Krislyn Aberegg PA Work Phone: [facility] 11-27-2023 13:44-0400 Body weight 61.2 kg Krislyn Aberegg PA Work Phone: [facility] 11-27-2023 13:44-0400 Diastolic blood pressure 80 mm[Hg] Krislyn Aberegg PA Work Phone: [facility] 11-27-2023 13:44-0400 Heart rate 80 /min Krislyn Aberegg PA Work Phone: [facility] 11-27-2023 13:44-0400 Respiratory rate 21 /min Krislyn Aberegg PA Work Phone: [facility] 11-27-2023 13:44-0400 SaO2% (BldA) [Mass fraction] 98 % Krislyn Aberegg PA Work Phone: [facility] 11-27-2023 13:44-0400 Systolic blood pressure 144 mm[Hg] Krislyn Aberegg PA Work Phone: [facility] 10-19-2023 11:55-0400 Body mass index (BMI) [Ratio] 24.13 kg/m2 Dayan Athy PA-C Work Phone: [facility] 10-19-2023 11:55-0400 Body temperature 98.71 [degF] Dayan Athy PA-C Work Phone: [facility] 10-19-2023 11:55-0400 Body weight 61 kg Dayan Athy PA-C Work Phone: [facility] 10-19-2023 11:55-0400 Diastolic blood pressure 74 mm[Hg] Dayan Athy PA-C Work Phone: [facility] 10-19-2023 11:55-0400 Heart rate 76 /min Dayan Athy PA-C Work Phone: [facility] 10-19-2023 11:55-0400 Respiratory rate 16 /min Dayan Athy PA-C Work Phone: [facility] 10-19-2023 11:55-0400 SaO2% (BldA) [Mass fraction] 98 % Dayan Athy PA-C Work Phone: [facility] 10-19-2023 11:55-0400 Systolic blood pressure 122 mm[Hg] Dayan Athy PA-C Work Phone: [facility] 10-06-2023 13:44-0400 Body mass index (BMI) [Ratio] 23.68 kg/m2 Catina Reddy SENIOR GAMES TECHNICIAN.FINANCE SPECIALIST Work Phone: [facility] 10-06-2023 13:44-0400 Body weight 59.88 kg Catina Reddy SENIOR GAMES TECHNICIAN.FINANCE SPECIALIST Work Phone: [facility] 10-06-2023 13:44-0400 Diastolic blood pressure 78 mm[Hg] Catina Reddy SENIOR GAMES TECHNICIAN.FINANCE SPECIALIST Work Phone: [facility] 10-06-2023 13:44-0400 Heart rate 78 /min Catina Denny SENIOR GAMES TECHNICIAN.FINANCE SPECIALIST Work Phone: [facility] 10-06-2023 13:44-0400 Respiratory rate 14 /min Catina Denny SENIOR GAMES TECHNICIAN.FINANCE SPECIALIST Work Phone: [facility] 10-06-2023 13:44-0400 SaO2% (BldA) [Mass fraction] 98 % Catina Denny SENIOR GAMES TECHNICIAN.FINANCE SPECIALIST Work Phone: [facility] 10-06-2023 13:44-0400 Systolic blood pressure 128 mm[Hg] Catina Denny SENIOR GAMES TECHNICIAN.FINANCE SPECIALIST Work Phone: [facility] 09-30-2023 09:50-0400 Body height 159 cm Bernabe Cox MD Work Phone: [facility] 09-30-2023 09:50-0400 Body mass index (BMI) [Ratio] 24.13 kg/m2 Bernabe Cox MD Work Phone: [facility] 09-30-2023 09:50-0400 Body weight 61 kg Bernabe Cox MD Work Phone: [facility] 09-30-2023 09:50-0400 Diastolic blood pressure 72 mm[Hg] Bernabe Cox MD Work Phone: [facility] 09-30-2023 09:50-0400 Heart rate 64 /min Bernabe Cox MD Work Phone: [facility] 09-30-2023 09:50-0400 Respiratory rate 16 /min Bernabe Cox MD Work Phone: [facility] 09-30-2023 09:50-0400 SaO2% (BldA) [Mass fraction] 97 % Bernabe Cox MD Work Phone: [facility] 09-30-2023 09:50-0400 Systolic blood pressure 127 mm[Hg] Bernabe Cox MD Work Phone: [facility] 08-31-2023 12:21-0400 Body temperature 97.9 [degF] Dr. Gavin Tran Work Phone: 6(220)171-746145 [place] [address] 08-31-2023 12:21-0400 Diastolic blood pressure 68 mm[Hg] Dr. Gavin Tran Work Phone: 8(425)009-126845 [place] [address] 08-31-2023 12:21-0400 Heart rate 60 /min Dr. Gavin Tran Work Phone: 4(960)392-513639 [place] [address] 08-31-2023 12:21-0400 Respiratory rate 18 /min Dr. Gavin Tran Work Phone: 4(569)407-393645 [place] [address] 08-31-2023 12:21-0400 SaO2% (BldA) [Mass fraction] 98 % Dr. Gavin Tran Work Phone: 7(371)295-450845 [place] [address] 08-31-2023 12:21-0400 Systolic blood pressure 130 mm[Hg] Dr. Gavin Tran Work Phone: 7(557)256-653645 [place] [address] 08-31-2023 09:15-0400 Body height 161.[address] Gavin Tran Work Phone: 1(576)507-473845 [place] [address] 08-31-2023 09:15-0400 Body mass index (BMI) [Ratio] 23.2 kg/m2 Dr. Gavin Tran Work Phone: 5(442)548-525239 [place] [address] 08-31-2023 09:15-0400 Body weight 60.[address] Gavin Tran Work Phone: 5(972)700-763745 [place] [address] 04-22-2023 09:40-0500 Body temperature 97.4 [degF] Dr. Gavin Tran Work Phone: 9(926)803-642945 [place] [address] 04-22-2023 09:40-0500 Diastolic blood pressure 58 mm[Hg] Dr. Gavin Tran Work Phone: 9(550)629-329945 [place] [address] 04-22-2023 09:40-0500 Heart rate 62 /min Dr. Gavin Tran Work Phone: 8(393)753-898445 [place] [address] 04-22-2023 09:40-0500 Respiratory rate 16 /min Dr. Gavin Tran Work Phone: 3(093)395-594745 [place] [address] 04-22-2023 09:40-0500 SaO2% (BldA) [Mass fraction] 97 % Dr. Gavin Tran Work Phone: 7(527)801-820045 [place] [address] 04-22-2023 09:40-0500 Systolic blood pressure 105 mm[Hg] Dr. Gavin Tran Work Phone: 0(046)121-530545 [place] [address] 04-22-2023 08:07-0500 Body height 160.[address] Gavin Tran Work Phone: 8(620)028-119445 [place] [address] 04-22-2023 08:07-0500 Body mass index (BMI) [Ratio] 23.4 kg/m2 Dr. Gavin Tran Work Phone: 6(529)495-141845 [place] [address] 04-22-2023 08:07-0500 Body weight [address] Gavin Tran Work Phone: 0(259)905-505445 [place] [address] 04-01-2023 07:40-0500 Body temperature 97.1 [degF] Dr. Gvain Tran Work Phone: 4(553)490-921045 [place] [address] 04-01-2023 07:40-0500 Diastolic blood pressure 58 mm[Hg] Dr. Gavin Tran Work Phone: 8(624)944-323645 [place] [address] 04-01-2023 07:40-0500 Heart rate 66 /min Dr. Gavin Tran Work Phone: 9(211)072-910245 [place] [address] 04-01-2023 07:40-0500 Respiratory rate 18 /min Dr. Gavin Tran Work Phone: 4(028)390-686145 [place] [address] 04-01-2023 07:40-0500 SaO2% (BldA) [Mass fraction] 97 % Dr. Gavin Tran Work Phone: 3(109)053-428145 [place] [address] 04-01-2023 07:40-0500 Systolic blood pressure 107 mm[Hg] Dr. Gavin Tran Work Phone: [facility] 04-01-2023 06:38-0500 Body height 160.[address] Gavin Tran Work Phone: [facility] 04-01-2023 06:38-0500 Body mass index (BMI) [Ratio] 24.1 kg/m2 Dr. Gavin Tran Work Phone: [facility] 04-01-2023 06:38-0500 Body weight 61.[address] Gavin Tran Work Phone: [facility] 03-20-2023 12:02-0500 Body height 159 cm Catina Older SENIOR GAMES TECHNICIAN.FINANCE SPECIALIST Work Phone: [facility] 03-20-2023 12:02-0500 Body weight 60.33 kg Catina Older SENIOR GAMES TECHNICIAN.FINANCE SPECIALIST Work Phone: [facility] 03-20-2023 12:02-0500 Diastolic blood pressure 76 mm[Hg] Catina Older SENIOR GAMES TECHNICIAN.FINANCE SPECIALIST Work Phone: [facility] 03-20-2023 12:02-0500 Heart rate 73 /min Catina Older SENIOR GAMES TECHNICIAN.FINANCE SPECIALIST Work Phone: [facility] 03-20-2023 12:02-0500 Respiratory rate 16 /min Catina Older SENIOR GAMES TECHNICIAN.FINANCE SPECIALIST Work Phone: [facility] 03-20-2023 12:02-0500 SaO2% (BldA) [Mass fraction] 97 % Catina Older SENIOR GAMES TECHNICIAN.FINANCE SPECIALIST Work Phone: [facility] 03-20-2023 12:02-0500 Systolic blood pressure 124 mm[Hg] Catina Older SENIOR GAMES TECHNICIAN.FINANCE SPECIALIST Work Phone: [facility] 02-27-2023 10:00-0500 Body temperature 99.3 [degF] Dayan KABA-Kayla Work Phone: [facility] 02-27-2023 10:00-0500 Body weight 61.69 kg Dayan KABA-Kayla Work Phone: [facility] 02-27-2023 10:00-0500 Diastolic blood pressure 75 mm[Hg] Dayan Athy PA-C Work Phone: [facility] 02-27-2023 10:00-0500 Heart rate 97 /min Dayan Athy PA-C Work Phone: [facility] 02-27-2023 10:00-0500 Respiratory rate 18 /min Dayan Athy PA-C Work Phone: [facility] 02-27-2023 10:00-0500 SaO2% (BldA) [Mass fraction] 98 % Dayan Athy PA-C Work Phone: [facility] 02-27-2023 10:00-0500 Systolic blood pressure 120 mm[Hg] Dayan Athy PA-C Work Phone: [facility] 02-26-2023 14:08-0500 Body height 160.[address] Gavin Tran Work Phone: [facility] 02-26-2023 14:08-0500 Body mass index (BMI) [Ratio] 23.9 kg/m2 Dr. Gavin Tran Work Phone: [facility] 02-26-2023 14:08-0500 Body weight 61.[address] Gavin Tran Work Phone: [facility] 02-26-2023 14:08-0500 Diastolic blood pressure 76 mm[Hg] Dr. Gavin Tran Work Phone: [facility] 02-26-2023 14:08-0500 Respiratory rate 18 /min Dr. Gavin Tran Work Phone: [facility] 02-26-2023 14:08-0500 Systolic blood pressure 133 mm[Hg] Dr. Gavin Tran Work Phone: [facility] 12-06-2022 15:32-0400 Body weight 62.32 kg Lemuel Howard APRN.CNP Work Phone: [facility] 12-06-2022 15:32-0400 Diastolic blood pressure 80 mm[Hg] Lemuel Howard APRN.FINANCE SPECIALIST Work Phone: [facility] 12-06-2022 15:32-0400 Heart rate 86 /min Lemuel Howard APRN.FINANCE SPECIALIST Work Phone: [facility] 12-06-2022 15:32-0400 Respiratory rate 16 /min Lemuel Howard APRN.FINANCE SPECIALIST Work Phone: [facility] 12-06-2022 15:32-0400 SaO2% (BldA) [Mass fraction] 98 % Lemuel Howard APRN.FINANCE SPECIALIST Work Phone: [facility] 12-06-2022 15:32-0400 Systolic blood pressure 120 mm[Hg] Lemuel Howard APRN.FINANCE SPECIALIST Work Phone: [facility] 03-29-2022 10:50-0500 Body temperature 97.1 [degF] Dr. Gavin Tran Work Phone: [facility] Work Phone: 03-29-2022 10:50-0500 Diastolic blood pressure 56 mm[Hg] Dr. Gavin Tran Work Phone: [facility] Work Phone: 03-29-2022 10:50-0500 Heart rate 71 /min Dr. Gavin Tran Work Phone: [facility] Work Phone: 03-29-2022 10:50-0500 Respiratory rate 16 /min Dr. Gavin Tran Work Phone: [facility] Work Phone: 03-29-2022 10:50-0500 SaO2% (BldA) [Mass fraction] 92 % Dr. Gavin Tran Work Phone: [facility] Work Phone: 03-29-2022 10:50-0500 Systolic blood pressure 105 mm[Hg] Dr. Gavin Tran Work Phone: [facility] Work Phone: 03-29-2022 09:10-0500 Body height 161.[address] Gavin Tran Work Phone: [facility] Work Phone: 03-29-2022 09:10-0500 Body mass index (BMI) [Ratio] 23.1 kg/m2 Dr. Gavin Tran Work Phone: [facility] Work Phone: 03-29-2022 09:10-0500 Body weight 60.[address] Gavin Tran Work Phone: [facility] Work Phone: 03-27-2022 09:59-0500 Body height 160.[address] Gavin Tran Work Phone: [facility] Work Phone: 03-27-2022 09:59-0500 Body mass index (BMI) [Ratio] 24 kg/m2 Dr. Gavin Tran Work Phone: [facility] Work Phone: 03-27-2022 09:59-0500 Body weight 61.[address] Gavin Tran Work Phone: [facility] Work Phone: 03-27-2022 09:59-0500 Diastolic blood pressure 75 mm[Hg] Dr. Gavin Tran Work Phone: [facility] Work Phone: 03-27-2022 09:59-0500 Heart rate 78 /min Dr. Gavin Tran Work Phone: [facility] Work Phone: 03-27-2022 09:59-0500 Respiratory rate 16 /min Dr. Gavin Tran Work Phone: [facility] Work Phone: 03-27-2022 09:59-0500 Systolic blood pressure 125 mm[Hg] Dr. Gavin Tran Work Phone: [facility] Work Phone: 03-26-2022 10:13-0500 Body height 162.6 cm Yojana Rollins MD Work Phone: [facility] 03-26-2022 10:13-0500 Body temperature 98.71 [degF] Yojana Rollins MD Work Phone: [facility] 03-26-2022 10:13-0500 Body weight 61.69 kg Yojana Rollins MD Work Phone: [facility] 03-26-2022 10:13-0500 Diastolic blood pressure 84 mm[Hg] Yojana Rollins MD Work Phone: [facility] 03-26-2022 10:13-0500 Heart rate 80 /min Yojana Rollins MD Work Phone: [facility] 03-26-2022 10:13-0500 SaO2% (BldA) [Mass fraction] 98 % Yojana Rollins MD Work Phone: [facility] 03-26-2022 10:13-0500 Systolic blood pressure 140 mm[Hg] Yojana Rollins MD Work Phone: [facility] 03-20-2022 14:13-0500 Body mass index (BMI) [Ratio] 23 kg/m2 Dr. Gavin Tran Work Phone: [facility] Work Phone: 03-20-2022 14:13-0500 Body temperature 97.5 [degF] Dr. Gavin Tran Work Phone: [facility] Work Phone: 03-20-2022 14:13-0500 Body weight 59.[address] Gavin Tran Work Phone: [facility] Work Phone: 03-20-2022 14:13-0500 Diastolic blood pressure 71 mm[Hg] Dr. Gavin Tran Work Phone: [facility] Work Phone: 03-20-2022 14:13-0500 Heart rate 71 /min Dr. Gavin Tran Work Phone: [facility] Work Phone: 03-20-2022 14:13-0500 Respiratory rate 18 /min Dr. Gavin Tran Work Phone: [facility] Work Phone: 03-20-2022 14:13-0500 SaO2% (BldA) [Mass fraction] 100 % Dr. Gavin Tran Work Phone: [facility] Work Phone: 03-20-2022 14:13-0500 Systolic blood pressure 130 mm[Hg] Dr. Gavin Tran Work Phone: [facility] Work Phone: 02-27-2022 13:19-0500 Body height 161.5 cm Gavin Tran MD Work Phone: [facility] 02-27-2022 13:19-0500 Body temperature 96.91 [degF] Gavin Tran MD Work Phone: [facility] 02-27-2022 13:19-0500 Body weight 62.14 kg Gavin Tran MD Work Phone: [facility] 02-27-2022 13:19-0500 Diastolic blood pressure 64 mm[Hg] Gavin Tran MD Work Phone: [facility] 02-27-2022 13:19-0500 Heart rate 68 /min Gavin Tran MD Work Phone: [facility] 02-27-2022 13:19-0500 Respiratory rate 16 /min Gavin Tran MD Work Phone: [facility] 02-27-2022 13:19-0500 Systolic blood pressure 110 mm[Hg] Gavin Tran MD Work Phone: [facility] 02-14-2022 11:15-0400 Body temperature 97.5 [degF] Arely Camarena SENIOR GAMES TECHNICIAN.FINANCE SPECIALIST Work Phone: [facility] 02-14-2022 11:15-0400 Body weight 62.32 kg Arely Camarena SENIOR GAMES TECHNICIAN.FINANCE SPECIALIST Work Phone: [facility] 02-14-2022 11:15-0400 Diastolic blood pressure 88 mm[Hg] Arely Camarena SENIOR GAMES TECHNICIAN.FINANCE SPECIALIST Work Phone: [facility] 02-14-2022 11:15-0400 Heart rate 68 /min Arely Camarena SENIOR GAMES TECHNICIAN.FINANCE SPECIALIST Work Phone: [facility] 02-14-2022 11:15-0400 Respiratory rate 21 /min Arely Camarena SENIOR GAMES TECHNICIAN.FINANCE SPECIALIST Work Phone: [facility] 02-14-2022 11:15-0400 SaO2% (BldA) [Mass fraction] 98 % Arely Camarena SENIOR GAMES TECHNICIAN.FINANCE SPECIALIST Work Phone: [facility] 02-14-2022 11:15-0400 Systolic blood pressure 160 mm[Hg] Arely Camarena SENIOR GAMES TECHNICIAN.FINANCE SPECIALIST Work Phone: [facility] 02-12-2022 07:15-0400 Body height 160 cm [facility] 02-12-2022 07:15-0400 Body temperature 97 [degF] [facility] 02-12-2022 07:15-0400 Body weight 61.69 kg [facility] 02-12-2022 07:15-0400 Diastolic blood pressure 85 mm[Hg] [facility] 02-12-2022 07:15-0400 Heart rate 80 /min [facility] 02-12-2022 07:15-0400 Respiratory rate 19 /min [facility] 02-12-2022 07:15-0400 SaO2% (BldA) [Mass fraction] 98 % [facility] 02-12-2022 07:15-0400 Systolic blood pressure 150 mm[Hg] Ring Galloway [facility] 02-11-2022 11:12-0400 Body height 160.[address] Gvain Tran Work Phone: [facility] Work Phone: 02-11-2022 11:12-0400 Body mass index (BMI) [Ratio] 24.3 kg/m2 Dr. Gavin Tran Work Phone: [facility] Work Phone: 02-11-2022 11:12-0400 Body weight 62.[address] Gavin Tran Work Phone: [facility] Work Phone: 02-11-2022 11:12-0400 Diastolic blood pressure 77 mm[Hg] Dr. Gavin Tran Work Phone: [facility] Work Phone: 02-11-2022 11:12-0400 Heart rate 75 /min Dr. Gavin Tran Work Phone: [facility] Work Phone: 02-11-2022 11:12-0400 Respiratory rate 16 /min Dr. Gavin Tran Work Phone: [facility] Work Phone: 02-11-2022 11:12-0400 Systolic blood pressure 135 mm[Hg] Dr. Gavin Tran Work Phone: [facility] Work Phone: 01-17-2022 18:13-0400 Diastolic blood pressure 75 mm[Hg] Gavin Tran MD Work Phone: [facility] 01-17-2022 18:13-0400 Systolic blood pressure 135 mm[Hg] Gavin Tran MD Work Phone: [facility] 01-17-2022 17:59-0400 Body temperature 96.91 [degF] Gavin Tran MD Work Phone: [facility] 01-17-2022 17:59-0400 Body weight 62.14 kg Gavin Tran MD Work Phone: [facility] 01-17-2022 17:59-0400 Heart rate 61 /min Gavin Tran MD Work Phone: [facility] 01-17-2022 17:59-0400 Respiratory rate 16 /min Gavin Tran MD Work Phone: [facility] 01-15-2022 08:50-0400 Body height 160 cm [facility] 01-15-2022 08:50-0400 Body temperature 98.1 [degF] [facility] 01-15-2022 08:50-0400 Body weight 60.78 kg [facility] 01-15-2022 08:50-0400 Diastolic blood pressure 64 mm[Hg] [facility] 01-15-2022 08:50-0400 Heart rate 64 /min [facility] 01-15-2022 08:50-0400 Respiratory rate 18 /min [facility] 01-15-2022 08:50-0400 SaO2% (BldA) [Mass fraction] 97 % [facility] 01-15-2022 08:50-0400 Systolic blood pressure 134 mm[Hg] [facility] 11-22-2021 13:11-0400 Body temperature 97.3 [degF] Gavin Tran MD Work Phone: [facility] 11-22-2021 13:11-0400 Body weight 60.78 kg Gavin Tran MD Work Phone: [facility] 11-22-2021 13:11-0400 Diastolic blood pressure 76 mm[Hg] Gavin Tran MD Work Phone: [facility] 11-22-2021 13:11-0400 Heart rate 72 /min Gavin Tran MD Work Phone: [facility] 11-22-2021 13:11-0400 Respiratory rate 16 /min Gavin Tran MD Work Phone: [facility] 11-22-2021 [id number] Systolic blood pressure 130 mm[Hg] Gavin Tran MD Work Phone: [facility] [phone]:[id number] Body height 160.02 cm [facility] Work Phone: 11-19-2021 13:26-0400 Body mass index (BMI) [Ratio] 24 kg/m2 [facility] Work Phone: 11-19-2021 13:26-0400 Body temperature 97.4 [degF] [facility] Work Phone: [phone]:[id number] Body weight 61.68 kg [facility] Work Phone: 11-19-2021 13:26-0400 Diastolic blood pressure 75 mm[Hg] [facility] Work Phone: 11-19-2021 13:26-0400 Heart rate 86 /min [facility] Work Phone: 11-19-2021 13:26-0400 Respiratory rate 16 /min [facility] Work Phone: 11-19-2021 13:26-0400 SaO2% (BldA) [Mass fraction] 96 % [facility] Work Phone: 11-19-2021 13:26-0400 Systolic blood pressure 136 mm[Hg] [facility] Work Phone: 11-05-2021 14:21-0400 Body temperature 98.1 [degF] Lisa Izquierdo APRN.FINANCE SPECIALIST Work Phone: [facility] 11-05-2021 14:21-0400 Body weight 60.78 kg Lisa Izquierdo APRN.FINANCE SPECIALIST Work Phone: [facility] 11-05-2021 14:21-0400 Diastolic blood pressure 74 mm[Hg] Lisa Izquierdo APRN.FINANCE SPECIALIST Work Phone: [facility] 11-05-2021 14:21-0400 Heart rate 92 /min Lisa Felecia SENIOR GAMES TECHNICIAN.FINANCE SPECIALIST Work Phone: [facility] 11-05-2021 14:21-0400 Respiratory rate 16 /min Lisa Felecia SENIOR GAMES TECHNICIAN.FINANCE SPECIALIST Work Phone: [facility] 11-05-2021 14:21-0400 SaO2% (BldA) [Mass fraction] 97 % Lisa Felecia SENIOR GAMES TECHNICIAN.FINANCE SPECIALIST Work Phone: [facility] 11-05-2021 14:21-0400 Systolic blood pressure 122 mm[Hg] Lisa Felecia SENIOR GAMES TECHNICIAN.FINANCE SPECIALIST Work Phone: [facility] 10-24-2021 12:00-0400 Diastolic blood pressure 68 mm[Hg] Catina Older SENIOR GAMES TECHNICIAN.FINANCE SPECIALIST Work Phone: [facility] 10-24-2021 12:00-0400 Systolic blood pressure 112 mm[Hg] Catina Older SENIOR GAMES TECHNICIAN.FINANCE SPECIALIST Work Phone: [facility] 10-24-2021 11:31-0400 Body weight 60.33 kg Catina Older SENIOR GAMES TECHNICIAN.FINANCE SPECIALIST Work Phone: [facility] 10-24-2021 11:31-0400 Heart rate 62 /min Catina Older SENIOR GAMES TECHNICIAN.FINANCE SPECIALIST Work Phone: [facility] 10-24-2021 11:31-0400 Respiratory rate 12 /min Catina Older SENIOR GAMES TECHNICIAN.FINANCE SPECIALIST Work Phone: [facility] 10-04-2021 11:02-0400 Body weight 60.69 kg Ignacia Dawn MD Work Phone: [facility] 10-04-2021 11:02-0400 Diastolic blood pressure 61 mm[Hg] Ignacia Dawn MD Work Phone: [facility] 10-04-2021 11:02-0400 Heart rate 66 /min Ignacia Dawn MD Work Phone: [facility] 10-04-2021 11:02-0400 SaO2% (BldA) [Mass fraction] 99 % Ignacia Dawn MD Work Phone: [facility] 10-04-2021 11:02-0400 Systolic blood pressure 110 mm[Hg] Ignacia Dawn MD Work Phone: [facility] 09-13-2021 10:16-0400 Body height 161.9 cm Bernabe Cox MD Work Phone: [facility] 09-13-2021 10:16-0400 Body weight 61 kg Bernabe Cox MD Work Phone: [facility] 09-13-2021 10:16-0400 Diastolic blood pressure 68 mm[Hg] Bernabe Cox MD Work Phone: [facility] 09-13-2021 10:16-0400 Heart rate 77 /min Bernabe Cox MD Work Phone: [facility] 09-13-2021 10:16-0400 SaO2% (BldA) [Mass fraction] 98 % Bernabe Cox MD Work Phone: [facility] 09-13-2021 10:16-0400 Systolic blood pressure 118 mm[Hg] Bernabe Cox MD Work Phone: [facility] Encounters Encounter Date Encounter Type Care Provider Facility Start: 12-28-2024 ambulatory Gavin Fernández ty:[facility] Start: 12-17-2024 End: 12-17-2024 Patient encounter procedure Rosa Isela Child MD Work Phone: OB/Gynecology Comment on above: Vulvar dermatitis (P rimary Dx); Lichen sclerosus et atrophicus; Dysuria; Incontinence of feces, unspecified fecal incontinence type Start: 12-17-2024 End: 12-17-2024 ambulatory GAVIN TRAN Facility:[facility] Start: 12-14-2024 ambulatory Gavin Fernández ty:[facility] Start: 12-14-2024 Non-patient / Non-visit Dr. Aliyah MA -[facility] Start: 12-14-2024 End: 12-14-2024 Patient encounter procedure Berhane KABA -[facility] Services Work Phone: Start: 12-14-2024 End: 12-14-[address] Gavin Tran MD Work Phone: -Cardiovascular Services Start: 12-14-2024 End: 12-14-2024 ambulatory Gavin Tran Facility:[facility] Start: 11-30-2024 End: 11-30-2024 Patient encounter procedure Bernabe Cox MD Work Phone: [facility] Comment on above: Benign meningioma of brain (HCC) (Primary Dx); Memory disturbance Start: 11-30-2024 End: 11-30-2024 ambulatory GAVIN TRAN Facility:[facility] Start: 11-28-2024 End: 11-28-2024 Patient encounter procedure Leslie Tran APRN.FINANCE SPECIALIST Work Phone: [facility] Comment on above: Diarrhea, unspecifie d type (Primary Dx); Irritable bowel syndrome without diarrhea Start: 11-28-2024 End: 11-28-2024 ambulatory LESLIE TRAN Facility:[facility] Start: 11-23-2024 End: 11-23-[address] Gavin Tran MD Work Phone: -Laboratory Start: 11-23-2024 End: 11-23-2024 Patient encounter procedure Berhane KABA -Laboratory Work Phone: Start: 11-23-2024 End: 11-23-[address] Gavin Tran MD Work Phone: -[facility] Start: 11-23-2024 End: 11-23-2024 Patient encounter procedure Berhane KABA -[facility] Work Phone: Start: 11-23-2024 End: 11-23-2024 ambulatory Gavin Tran Facility:[facility] Start: 11-08-2024 End: 11-08-2024 Refill Gavin Tran MD Work Phone: [facility] [place] Comment on above: Refill Request Start: 10-05-2024 End: 12-05-2024 Follow-up encounter Anjalirian EnriqueLa Verkinbob FUENTES.FINANCE SPECIALIST Work Phone: OB/Gynecology Start: 10-04-2024 End: 10-04-2024 Patient encounter procedure Jeannine Knight SENIOR GAMES TECHNICIAN.FINANCE SPECIALIST Work Phone: OB/Gynecology Comment on above: Vaginal itching (Lety diane Dx); Vaginal irritation; Lichen simplex chronicus; Tick bite of neck, initial encounter Start: 10-04-2024 End: 10-04-2024 ambulatory Gavin Tran MD Work Phone: [facility] [place] Comment on above: tick bite Start: 09-28-2024 End: 09-28-2024 Office outpatient visit 25 minutes Gavin Tran MD Work Phone: [facility] [place] Comment on above: Urinary symptom or s ign (Primary Dx); Unsteady gait when walking; Carpal tunnel syndrome on right; Age-related osteoporosis without current pathological fracture; Premature atrial contraction Start: 09-28-2024 End: 09-28-2024 ambulatory GAVIN TRAN Facility:[facility] Start: 09-15-2024 End: 09-15-2024 ambulatory Gavin Tran MD Work Phone: [facility] Comment on above: Allied Health Visit (Medication Adherence Outreach ) Start: 2024 End: 2024 ambulatory JÚNIOR HEREDIA Facility:[facility] Start: 2024 End: 2024 Office outpatient visit 15 minutes Júnior Heredia SENIOR GAMES TECHNICIAN.CIVILIAN JAIL OFFICER Work Phone: [facility] [place] Comment on above: Pruritus vulvae; Postmenopausal atrophic vaginitis Start: 08-31-2024 End: 08-31-2024 Patient encounter procedure Bernabe Cox MD Work Phone: [facility] Comment on above: Benign meningioma of brain (HCC) (Primary Dx) Start: 08-31-2024 End: 08-31-2024 ambulatory GAVIN TRAN Facility:[facility] Start: 08-27-2024 ambulatory CARMEN LILLIANA Faci lity:[facility] Start: 08-27-2024 End: 08-27-2024 Subsequent hospital visit by physician [facility] (1.5t) [facility] Comment on above: Benign meningioma of brain (HCC) [D32.0] Start: 08-03-2024 End: 08-03-2024 Orders Only Katia Boykin APRN.FINANCE SPECIALIST Work Phone: [facility] Comment on above: Benign meningioma of brain (HCC) (Primary Dx) Sesamoiditis of righ t foot (Primary Dx) Pain [R52] Start: 04-19-2024 End: 04-19-2024 ambulatory Carmen Hdez RN Work Phone: [facility] Techn[facility] Management Start: 04-19-2024 End: 04-19-2024 Telephone follow-up Carmen Hdez RN Work Phone: [facility] Comment on above: Transition Of Care ( Follow up) Weekly phone contact (Recurring) for Transitional Care Management, Weekly phone contact (Recurring) for Transitional Care Management Start: 04-13-2024 End: 04-13-2024 ambulatory CARMEN LILLIANA Facility:[facility] Start: 04-13-2024 End: 04-13-2024 Patient encounter procedure Catina Reddy APRN.FINANCE SPECIALIST Work Phone: Internal Medicine [place] Comment on above: Abdominal pain, unsp ecified abdominal location (Primary Dx); Diarrhea, unspecified type Start: 04-12-2024 End: 04-12-2024 Patient Outreach Carmen Hdez RN Work Phone: Blood Bank Laboratory Technologist Management Comment on above: Transition Of Care ( Initial ) Initial phone contact for Transitional Care Management Start: 04-06-2024 End: 04-11-2024 Evaluation and management of inpatient LORNA A THUESTAD Facility:[facility] Start: 04-06-2024 End: 04-06-2024 Emergency department patient visit IZZY MACDONALD Facility:[facility] Start: 04-01-2024 End: 04-01-2024 ambulatory GAVIN TRAN Facility:[facility] Start: 03-29-2024 End: 03-29-2024 ambulatory GAVIN TRAN Facility:[facility] Start: 03-29-2024 End: 03-29-2024 Patient encounter procedure Gavin rTan MD Work Phone: Internal Medicine [place] Comment on above: Medicare annual well ness visit, subsequent (Primary Dx); Encounter for screening examination for other mental health and behavioral disorders; Screening for depression; Hyperlipidemia, unspecified hyperlipidemia type; Left leg weakness; Carpal tunnel syndrome on right; Age-related osteoporosis without current pathological fracture Start: 03-26-2024 End: 03-26-2024 ambulatory GAVIN TRAN Facility:[facility] Start: 03-26-2024 End: 03-26-2024 Subsequent hospital visit by physician [facility] Comment on above: Screening mammogram for breast cancer [Z12.31] Start: 03-24-2024 End: 03-24-2024 ambulatory Kb Ruggiero PT [facility] Comment on above: Primary osteoarthrit is of left hip (Primary Dx); Left leg weakness Start: 03-10-2024 End: 03-10-2024 Telephone encounter Gavin Tran MD Work Phone: [facility] [place] Comment on above: Orders Start: 03-01-2024 End: 03-01-2024 ambulatory Kb Lemon PT [facility] Comment on above: Left leg weakness (P rimary Dx); Primary osteoarthritis of left hip Start: 02-28-2024 End: 02-28-2024 Office outpatient visit 25 minutes Gavin Tran MD Work Phone: Internal Medicine [place] Comment on above: Primary osteoarthrit is of left hip (Primary Dx); Left leg weakness Start: 02-28-2024 End: 02-28-2024 ambulatory GAVIN TRAN Facility:[facility] Start: 02-27-2024 End: 02-27-2024 Telephone encounter Lemuel Howard APRN.CNP Work Phone: [facility] Comment on above: Results Start: 02-27-2024 End: 02-27-2024 Subsequent hospital visit by physician [facility] Work Phone: Radiology Comment on above: Pain [R52] Start: 02-27-2024 End: 02-27-2024 ambulatory GAVIN TRAN Facility:[facility] Start: 02-27-2024 End: 02-27-2024 Patient encounter procedure Izzy Aranda SENIOR GAMES TECHNICIAN.FINANCE SPECIALIST Work Phone: [facility] Comment on above: Fall, initial encoun ter (Primary Dx); Pain Start: 02-11-2024 End: 02-11-2024 Refill Gavin Tran MD Work Phone: [facility] [place] Comment on above: Refill Request Start: 01-28-2024 End: 01-28-2024 Telephone encounter Sharif Farmer MD Work Phone: [facility] Comment on above: Physical Therapy (Pe lvic Floor Physical Therapy) Start: 01-28-2024 End: 01-28-2024 Patient encounter procedure Sharif Farmer MD Work Phone: [facility] Comment on above: Fecal urgency (Prima ry Dx); Outlet dysfunction constipation Start: 01-28-2024 End: 01-28-2024 ambulatory GAVIN TRAN Facility:[facility] Start: 01-15-2024 End: 01-15-2024 ambulatory Malia Del Real RN Work Phone: Blood Bank Laboratory Technologist Management Start: 01-08-2024 End: 01-08-2024 ambulatory GAVIN TRAN Facility:[facility] Start: 01-08-2024 End: 01-08-2024 Office outpatient visit 15 minutes Gavin Tran MD Work Phone: [facility] [place] Comment on above: Vertigo (Primary Dx) ; Need for influenza vaccination Start: 12-31-2023 End: 12-31-2023 Emergency department patient visit GAVIN TRAN Facility:[facility] Start: 12-16-2023 End: 12-16-2023 Patient encounter procedure Catina Reddy APRN.FINANCE SPECIALIST Work Phone: [facility] [place] Comment on above: Age-related osteopor osis without current pathological fracture (Primary Dx); Unsteady gait; Irritable bowel syndrome with diarrhea; Chronic back pain, unspecified back location, unspecified back pain laterality Start: 11-27-2023 End: 11-27-2023 Patient encounter procedure Saurabh KABA Work Phone: [facility] Comment on above: Acute left-sided tho racic back pain (Primary Dx) Start: 11-20-2023 End: 11-20-2023 Subsequent hospital visit by physician [facility] Work Phone: Radiology Comment on above: Encounter for screen ing for osteoporosis [Z13.820] Start: 10-19-2023 End: 10-19-2023 Patient encounter procedure Dayan Del Rosario PA-C Work Phone: [facility] Comment on above: Allergic contact memo matitis due to food in contact with skin (Primary Dx) Start: 10-06-2023 End: 10-06-2023 Subsequent hospital visit by physician [facility] Work Phone: Radiology Comment on above: Right knee pain, uns pecified chronicity [M25.561] Start: 10-06-2023 End: 10-06-2023 Patient encounter procedure Catina Reddy APRN.FINANCE SPECIALIST Work Phone: [facility] [place] Comment on above: Right knee pain, uns pecified chronicity (Primary Dx); Bilateral carotid artery stenosis; Encounter for screening for osteoporosis; Asymptomatic postmenopausal status Start: 09-30-2023 End: 09-30-2023 Patient encounter procedure Bernabe Cox MD Work Phone: [facility] Comment on above: Benign meningioma of brain (HCC) (Primary Dx) Start: 09-24-2023 End: 09-24-2023 Subsequent hospital visit by physician [facility]ri [facility] (1.5t) [facility] Comment on above: Benign meningioma of brain (HCC) [D32.0] Start: 09-23-2023 Orders Only Katia Boykin SENIOR GAMES TECHNICIAN.FINANCE SPECIALIST Work Phone: [facility] Comment on above: Benign meningioma of brain (HCC) (Primary Dx) Start: 09-22-2023 Telephone encounter Katia aguillon SENIOR GAMES TECHNICIAN.FINANCE SPECIALIST Work Phone: [facility] Comment on above: Orders Start: 09-05-2023 End: 09-05-2023 Orders Only Katia Genetshyanne SENIOR GAMES TECHNICIAN.FINANCE SPECIALIST Work Phone: [facility] Comment on above: Benign meningioma of brain (HCC) (Primary Dx); Claustrophobia Canceled (Pt cx: Res cheduled) Start: 08-31-2023 End: 08-31-2023 Emergency department patient visit Dr. Gavin Tran Work Phone: [facility]-Emergency Department Work Phone: Start: 08-26-2023 Orders Only Katia Boykin SENIOR GAMES TECHNICIAN.FINANCE SPECIALIST Work Phone: [facility] Comment on above: Benign meningioma of brain (HCC) (Primary Dx); Claustrophobia Orders Start: 08-25-2023 End: 08-25-[address] Gavin Tran Work Phone: [facility] Work Phone: Start: 08-19-2023 Telephone encounter Bernabe Cxo MD Work Phone: [facility] Start: 04-22-2023 Non-patient / Non-visit Dr. Phyllis Tran Work Phone: [facility] Start: 04-22-2023 End: 04-22-2023 Admission to same day surgery center Dr. Gavin Tran Work Phone: [facility] Work Phone: Start: 04-22-2023 End: 04-22-[address] Gavin Tran Work Phone: [facility] Work Phone: Start: 04-01-2023 Non-patient / Non-visit Dr. Phyllis Tran Work Phone: [facility] Start: 04-01-2023 End: 04-01-2023 Admission to same day surgery center Dr. Gavin Tran Work Phone: [facility]End[facility] Work Phone: Start: 04-01-2023 End: 04-01-[address] Gavin Tran Work Phone: [facility] Work Phone: Start: 03-25-2023 Documentation procedure Mammog ganesh Coordinator [facility] Start: 03-25-2023 Letter encounter Mammography Coordinator [facility] Department Start: 03-24-2023 End: 03-24-2023 Subsequent hospital visit by physician Screen M[facility] Comment on above: Screening mammogram for breast cancer [Z12.31] Start: 03-20-2023 End: 03-20-2023 Patient encounter procedure Catina Older SENIOR GAMES TECHNICIAN.FINANCE SPECIALIST Work Phone: Internal Medicine [place] Comment on above: Medicare annual well ness visit, subsequent (Primary Dx); Encounter for immunization; Screening mammogram for breast cancer Start: 03-10-[address] Panda Tran Work Phone: [facility] Work Phone: Start: 02-28-2023 Telephone encounter [facility] Work Phone: [facility] Comment on above: Results; Medication Request Start: 02-27-2023 End: 02-27-2023 Patient encounter procedure Dayan Del Rosario PA-C Work Phone: [facility] Comment on above: URI, acute (Primary Dx); Vertigo Start: 02-26-2023 End: 02-26-[address] Gavin Tran Work Phone: [facility] Work Phone: Start: 02-25-[address] Panda Tran Work Phone: [facility] Work Phone: Start: 02-23-2023 End: 02-23-[address] Gavin Tran Work Phone: [facility] Work Phone: Start: 02-23-2023 End: 02-23-[address] Gavin Tran Work Phone: [facility]-Laboratory, Specimen Work Phone: Start: 12-06-2022 End: 12-06-2022 Patient encounter procedure Lemuel Howard APRN.FINANCE SPECIALIST Work Phone: [facility] Comment on above: Sinus congestion (Pr imary Dx) Start: 08-29-2022 End: 08-29-2022 Subsequent hospital visit by physician Mri [facility] (1.5t/Lg Bore 70cm) Work Phone: [facility] Comment on above: Benign meningioma of brain (HCC) [D32.0] Start: 08-22-2022 Orders Only Katia Boykin APRN.FINANCE SPECIALIST Work Phone: [facility] Comment on above: Allergy, subsequent encounter (Primary Dx); Benign meningioma of brain (HCC) Start: 03-29-2022 Non-patient / Non-visit Dr. Phyllis Tran Work Phone: [facility] Start: 03-29-2022 End: 03-29-2022 Admission to same day surgery center Dr. Gavin Tran Work Phone: [facility]End[facility] Start: 03-29-2022 End: 03-29-[address] Gavin Tran Work Phone: [facility] Work Phone: Start: 03-27-2022 End: 03-27-[address] Gavin Tran Work Phone: [facility] Work Phone: Start: 03-27-2022 End: 03-27-[address] Gavin Tran Work Phone: [facility]Laboratory Start: 03-26-2022 End: 03-26-2022 Patient encounter procedure Yojana Rollins MD Work Phone: General Surgery Comment on above: Heme positive stool (Primary Dx) Start: 03-21-2022 End: 03-21-[address] Gavin Tran Work Phone: [facility] Work Phone: Start: 03-21-2022 End: 03-21-[address] Gavin Tran Work Phone: [facility]-Laboratory, Specimen Start: 03-20-2022 End: 03-20-[address] Gavin Tran Work Phone: [facility] Start: 03-06-2022 Documentation procedure Mammog ganesh Coordinator [facility] Start: 03-06-2022 Letter encounter Mammography Coordinator [facility] Department Start: 03-05-2022 End: 03-05-2022 Subsequent hospital visit by physician Screen [facility] Comment on above: Encounter for screen ing mammogram for malignant neoplasm of breast [Z12.31] Start: 02-27-2022 End: 02-27-2022 Patient encounter procedure Gavin Tran MD Work Phone: [facility] [place] Comment on above: Medicare annual well ness visit, subsequent (Primary Dx); Hyperlipidemia, unspecified hyperlipidemia type; Palpitations; Osteopenia, unspecified location; Encounter for screening mammogram for malignant neoplasm of breast; Memory disturbance Start: 02-21-2022 Non-patient / Non-visit Dr. Phyllis Tran Work Phone: [facility] Start: 02-21-2022 End: 02-21-[address] Gavin Tran Work Phone: [facility] Work Phone: Start: 02-21-2022 End: 02-21-[address] Gavin Tran Work Phone: [facility]-Cardiovascular Services Start: 02-14-2022 Telephone encounter Bernabe Cox MD Work Phone: [facility] [place] Comment on above: Procedure (Post proc edure call) Start: 02-14-2022 End: 02-14-2022 Patient encounter procedure Arely Camarena APRN.CNP Work Phone: [facility] Comment on above: Muscle spasm (Primar y Dx) Start: 02-13-2022 End: 02-13-[address] Gavin Tran Work Phone: [facility] Work Phone: Start: 02-13-2022 End: 02-13-[address] Gavin Tran Work Phone: [facility]-Pulmonary Services/Neurology Start: 02-12-2022 ambulatory Bernabe whitmore MD Work Phone: [facility] Start: 02-12-2022 End: 02-12-2022 Patient encounter procedure Ring Placement Neus [facility] [place] Comment on above: Benign meningioma of brain (HCC) (Primary Dx) Start: 02-12-2022 Radiation Oncology Note Eliz Lind MD Work Phone: [facility] Comment on above: Treatment Planning Start: 02-12-2022 End: 02-12-2022 Subsequent hospital visit by physician Mri [place] [facility] Machine Operator [facility] [employer] [employer]IC[employer] Comment on above: Benign meningioma of brain (HCC) [D32.0] Start: 02-11-2022 End: 02-11-[address] Gavin Tran Work Phone: [facility] Start: 02-08-2022 Orders Only Katia Boykin SENIOR GAMES TECHNICIAN.FINANCE SPECIALIST Work Phone: [facility] Comment on above: Benign meningioma of brain (HCC) (Primary Dx); Allergy, subsequent encounter Start: 02-07-2022 Telephone encounter Bernabe Cox MD Work Phone: [facility] Comment on above: Procedure (Gamma kni fe srs tx to brain pre-call) Start: 02-05-2022 Orders Only Katia Boykin SENIOR GAMES TECHNICIAN.FINANCE SPECIALIST Work Phone: [facility] Comment on above: Benign meningioma of brain (HCC) (Primary Dx); Benign neoplasm of meninges (HCC) Start: 01-31-2022 Non-patient / Non-visit Dr. Phyllis Tran Work Phone: [facility] Start: 01-31-2022 Telephone encounter Bernabe Cox MD Work Phone: [facility] Comment on above: Procedure (Post proc edure call) Start: 01-29-2022 ambulatory Bernabe whitmore MD Work Phone: 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 [place] Comment on above: pre procedure call ( gammaknife) Start: 01-17-2022 End: 01-17-2022 Patient encounter procedure [facility] Provider [facility] Department Comment on above: Irregular heart rhyt hm (Primary Dx); Need for influenza vaccination Start: 01-17-2022 Telephone encounter Bernabe Cox MD Work Phone: [facility] [place] Comment on above: post procedure call (Gamma knife) Refill Request Start: 01-15-2022 ambulatory Bernabe whitmore MD Work Phone: [facility] [place] Start: 01-15-2022 End: 01-15-2022 Patient encounter procedure Bernabe Cox MD Work Phone: [facility] Comment on above: Benign meningioma of brain (HCC) (Primary Dx) Start: 01-15-2022 Radiation Oncology Note Eliz Lind MD Work Phone: [facility] Comment on above: Treatment Planning Completion Note Start: 01-15-2022 Telephone encounter Bernabe Cox MD Work Phone: [facility] [place] Comment on above: Procedure (Post gamm a knife procedure, irregular heart rate. ) Patient Update Start: 01-15-2022 End: 01-15-2022 Subsequent hospital visit by physician [facility] RADIO CT SCAN [employer] OFFICER Comment on above: Benign meningioma of brain (HCC) [D32.0] Start: 01-10-2022 Telephone encounter Bernabe Cox MD Work Phone: [facility] [place] Comment on above: Procedure (Gamma kni fe pre-tx call, pre-op instructions) Start: 12-25-2021 End: 12-25-2021 ambulatory Adam Anaya [facility] Physical [facility] Comment on above: Left Achilles tendin itis (Primary Dx); Acute left-sided thoracic back pain Start: 12-11-2021 End: 12-11-2021 ambulatory Adam Greene PT [facility] Comment on above: Left Achilles tendin itis (Primary Dx); Acute left-sided thoracic back pain Start: 12-04-2021 End: 12-04-2021 ambulatory Adam Greene PT [facility] Comment on above: Left Achilles tendin itis (Primary Dx); Acute left-sided thoracic back pain Start: 11-28-2021 Telephone encounter Gavin see MD Work Phone: [facility] [place] Comment on above: Patient Update Start: 11-26-2021 End: 11-26-2021 ambulatory Adamcarli Greene [facility] Physical Therapy Comment on above: Acute left-sided tho racic back pain; Left Achilles tendinitis Start: 11-22-2021 End: 11-22-2021 Patient encounter procedure Gavin Tran MD Work Phone: [facility] [place] Comment on above: Acute left-sided tho racic back pain (Primary Dx); Left Achilles tendinitis; Palpitations Start: 11-19-2021 End: 11-19-2021 Emergency department patient visit [facility]Emergency Department Start: 11-13-2021 End: 11-13-2021 Orders Only Katia Boykin APRN.FINANCE SPECIALIST Work Phone: [facility] Comment on above: Benign meningioma of brain (HCC) (Primary Dx); Benign neoplasm of meninges (HCC) Calcaneal spur of le ft foot (Primary Dx); Pain of left heel; Tendonitis, Achilles, left Start: 11-08-2021 Telephone encounter Bernabe Cox MD Work Phone: [facility] Comment on above: Procedure (Gamma Kni fe scheduling and instructions) Erroneous encounter- disregard Start: 11-05-2021 End: 11-05-2021 Patient encounter procedure Lisa Izquierdo APRN.FINANCE SPECIALIST Work Phone: [facility] Comment on above: Acute left-sided tho racic back pain (Primary Dx) Start: 10-25-2021 Telephone encounter Ignacia diaz MD Work Phone: [facility] Comment on above: Patient Update Start: 10-24-2021 End: 10-24-2021 Subsequent hospital visit by physician [facility] [place] Work Phone: Radiology Comment on above: Pain of left heel [M 79.672] Start: 10-24-2021 End: 10-24-2021 Patient encounter procedure Catina Manuel SENIOR GAMES TECHNICIAN.FINANCE SPECIALIST Work Phone: [facility] [place] Comment on above: Pain of left heel (P rimary Dx); Incontinence of feces, unspecified fecal incontinence type; Hyperlipidemia, unspecified hyperlipidemia type; Benign meningioma of brain (HCC); Palpitations Start: 10-04-2021 End: 10-04-2021 Patient encounter procedure Ignacia Dawn MD Work Phone: [facility] Comment on above: Benign neoplasm of m eninges (HCC) (Primary Dx) Start: 09-27-2021 Telephone encounter Katia aguillon SENIOR GAMES TECHNICIAN.FINANCE SPECIALIST Work Phone: [facility] Comment on above: Results (Treatment p mahad) Patient Update Start: 09-13-2021 End: 09-13-2021 Patient encounter procedure Bernabe Cox MD Work Phone: [facility] Comment on above: Benign meningioma of brain (HCC) (Primary Dx); Benign neoplasm of meninges (HCC) Start: 09-03-2021 End: 09-03-2021 Patient encounter procedure [facility] Start: 08-30-2021 Orders Only Katia Boykin SENIOR GAMES TECHNICIAN.FINANCE SPECIALIST Work Phone: [facility] Comment on above: Benign meningioma of brain (HCC) (Primary Dx) Start: 08-23-2021 Orders Only Katia Boykin SENIOR GAMES TECHNICIAN.FINANCE SPECIALIST Work Phone: [facility] Comment on above: Benign meningioma of brain (HCC) (Primary Dx); Claustrophobia Start: 08-14-2021 Telephone encounter Bernabe Cox MD Work Phone: [facility] Comment on above: MRI Scheduling Start: 02-27-2021 Telephone encounter Philip De La Rosa SENIOR GAMES TECHNICIAN.FINANCE SPECIALIST Work Phone: Gastroenterology Comment on above: Appointment Procedures Date Procedure Procedure Detail Performing Clinician Start: 12-17-2024 Urnls dip stick/tablet rgnt auto w/o microscopy Rosa Isela Child MD Work Phone: Start: 09-28-2024 Urnls dip stick/tablet rgnt auto w/o microscopy Gavin Tran MD Work Phone: Start: 03-29-2024 Adult depression screening assessment Gavin Tran MD Work Phone: Start: 03-26-2024 Screening mammography bi 2-view breast inc cad Catina Reddy SENIOR GAMES TECHNICIAN.FINANCE SPECIALIST Work Phone: Start: 02-27-2024 Radex hand minimum 3 views Lemuel Jam es SENIOR GAMES TECHNICIAN.FINANCE SPECIALIST Work Phone: Start: 10-06-2023 Radiologic exam knee complete 4/more views Catina Reddy SENIOR GAMES TECHNICIAN.FINANCE SPECIALIST Work Phone: Start: 08-31-2023 CT angiography of chest with contrast Dr. Gavin Tran Work Phone: Start: 04-22-[address] Gavin Tran Work Phone: Start: 04-01-[address] Gavin Tran Work Phone: Start: 03-20-2023 INFLUENZA VACCINE, PRSV FREE, AGE 65+ YR, HIGH DOSE, QUADRIVALENT (FLUZONE HIGH-DOSE) Catina Older SENIOR GAMES TECHNICIAN.FINANCE SPECIALIST Work Phone: Start: 02-23-2023 Measurement of occult blood in stool specimen using immunoassay Dr. Gavin Tran Work Phone: Start: 08-29-2022 Mri brain brain stem w/o w/contrast material Katia Fegatelli SENIOR GAMES TECHNICIAN.FINANCE SPECIALIST Work Phone: Start: 03-29-[address] Gavin Tran Work Phone: Start: 03-05-2022 Screening mammography bi 2-view breast inc cad Gavin Tran MD Work Phone: Start: 02-21-2022 Cardiovascular stress test using pharmacologic stress agent Dr. Gavin Tran Work Phone: Start: 02-12-2022 Ct head/brain w/o contrast material Katia Fegatelli SENIOR GAMES TECHNICIAN.FINANCE SPECIALIST Work Phone: Start: 01-17-2022 INFLUENZA SEASONAL QUADRIVALENT HIGH DOSE AGE 65+ Gavin Tran MD Work Phone: Start: 01-15-2022 Ct head/brain w/o contrast material Katia Fegatelli SENIOR GAMES TECHNICIAN.FINANCE SPECIALIST Work Phone: Start: 11-19-2021 Computed tomography of thoracic spine without contrast Start: 10-24-2021 Radex foot complete minimum 3 views Catina Reddy SENIOR GAMES TECHNICIAN.FINANCE SPECIALIST Work Phone: Start: 10-04-2021 Adult depression screening assessment Ignacia Dawn MD Work Phone: Start: 09-03-2021 MRI of brain with contrast Start: 01-13-2021 Adult depression screening assessment Bernabe Cox MD Work Phone: Start: 04-21-2017 History of cholecystectomy Hx of cholecystectomy Dr. Gavin Tran Work Phone: Comment on above: 03/2018 H/O: hysterectomy History of hysterectomy Comment on above: 1989 H/O: surgery History of remov al of ovarian cyst History of cholecystectomy Hx of cholecys tectomy Measurement of occul t blood in stool specimen using immunoassay Dr. Gavin Tran Work Phone: Plan of Treatment Date Care Activity Detail Author Start: 04-11-2027 Diabetes Screening Diabetes Screening [facility] Start: 09-11-2027 Diabetes Screening Diabetes Screening [facility] Start: 05-21-2026 Diabetes Screening Diabetes Screening [facility] Start: 11-19-2025 DIABETES SCREEN DIABETES SCREEN [facility] Start: 11-19-2025 Diabetes Screening Diabetes Screening [facility] Start: 11-19-2025 Screening for osteoporosis Bone Density Screening [facility] Start: 08-30-2025 End: 08-30-2025 Patient encounter procedure 08/30/2025 10:30 AM EDT Office Visit [facility] [address] [place] [phone] Bernabe Cox MD [address] [place] [address] 9 month follow up MRI done 5/ [facility] Comment on above: 9 month follow up MRI done 5/ Start: 08-26-2025 End: 08-26-2025 Patient encounter procedure 08/26/2025 8:45 AM EDT Appointment [facility] [address] [place] [id number] MRI BRAIN WO/W IVCON [facility] Comment on above: MRI BRAIN WO/W IVCON Start: 03-29-2025 Anxiety Screening Anxiety Screening [facility] Start: 03-29-2025 Depression Screening Depression Screening [facility] Start: 03-15-2025 End: 03-15-2025 Patient encounter procedure [facility] [place] Comment on above: Annual Medicare Wellness w/6 month follo w-up Annual Medicare Well ness w/6 month follow-up [facility] Closure Start: 02-27-2025 Covid-19 Vaccine ( season) Covid-19 Vaccine () [facility] Comment on above: Postponed from 12/21/2023 (Declined at t his time) Start: 01-15-2025 DIABETES SCREEN DIABETES SCREEN [facility] Start: 01-13-2025 End: 01-13-2025 Patient encounter procedure 01/13/2025 10:30 AM EDT Office Visit Gastroenterology Lucinda Martinez[address] [place] [phone] Tricia Vásquez APRN.FINANCE SPECIALIST [address] [address] chronic diarrhea Gastroenterology Lucinda Comment on above: chronic diarrhea Start: 12-20-2024 Influenza vaccination Influenza Vaccine (#1) [facility] Start: 11-30-2024 End: 11-30-2024 Patient encounter procedure 11/30/2024 11:00 AM EDT Office Visit [facility] [address] [phone] Bernabe Cox MD [address] [facility] [place] [address] having some memory issues, concerned related to her meningioma, would like to discuss with [facility] Comment on above: having some memory issues, concerned rel ated to her meningioma, would like to discuss with [facility] Start: 11-12-2024 DIABETES SCREEN DIABETES SCREEN [facility] Start: 10-04-2024 End: 10-04-2024 Patient encounter procedure 10/04/2024 9:15 AM EDT Office Visit OB/Gynecology [address] [place] [address] Jeannine Knight APRN.FINANCE SPECIALIST [address] [place] [address] vaginal itching OB/Gynecology Comment on above: vaginal itching Start: 09-28-2024 End: 09-28-2024 Patient encounter procedure 09/28/2024 8:40 AM EDT Office Visit Internal Medicine [facility] [address] [place] [address] Gavin Tran MD [address] [facility] [place] [address] 6 month follow-up [facility] Comment on above: 6 month follow-up Start: 08-31-2024 End: 08-31-2024 Patient encounter procedure 08/31/2024 11:00 AM EDT Office Visit [facility] [address] [place] [phone] Bernabe Cox MD [address] [place] [address] yearly follow-up with MRI done last week in [facility] Comment on above: yearly follow-up with MRI done last week in [place] Start: 08-27-2024 End: 08-27-2024 Patient encounter procedure 08/27/2024 11:00 AM EDT Appointment [facility] [address] [place] [address] MRI BRAIN WO/W IVCON [facility] Comment on above: MRI BRAIN WO/W IVCON Start: 04-21-2024 Advance Directive Discussion Advance Directive Discussion [facility] Start: 04-21-2024 Medicare Advantage Annual Wellness Visit Medicare Advantage Annual Wellness Visit [facility] Start: 04-13-2024 End: 04-13-2024 Patient encounter procedure 04/13/2024 9:20 AM EST Office Visit [facility] Medicine [facility] [address] [facility] [place] [address] Catina Reddy, SENIOR GAMES TECHNICIAN.FINANCE SPECIALIST [address] [place] [address] [facility] follow up Pack 06-04-22 Partial small bowel obstruction [facility] Comment on above: [facility] follow up [place] 06-04-22 Pa rtial small bowel obstruction Start: 04-02-2024 End: 04-02-2024 ambulatory 04/02/2024 11:45 AM EST OT/PT/Speech Visit [facility] Physical Therapy [address] [place] [address] Elaina Owens, DESTINEE [address] [place] [address] Priority: Routine [facility] Comment on above: Priority: Routine Start: 03-30-2024 End: 06-29-2024 Lipid 1996 panel - Serum or Plasma LIPID PANEL BASIC Lab Routine Hyperlipidemia, unspecified hyperlipidemia type Expected: 03/30/2024, Expires: 06/29/2024 [facility] Work Phone: Comment on above: Expected: 03/30/2024, Expires: Start: 03-29-2024 End: 03-29-2024 Patient encounter procedure 03/29/2024 12:40 PM EST Office Visit Internal Medicine [facility] [address] [place] [address] Gavin Tran MD [address] [address] Medicare Wellness [facility] Comment on above: Medicare Wellness Start: 03-26-2024 End: 03-26-2024 Patient encounter procedure 03/26/2024 9:10 AM EST Appointment Mammogram [address] [place] [address] Screening mammogram for breast cancer [Z12.31] Mammogram Comment on above: Screening mammogram for breast cancer [Z 12.31] Start: 03-24-2024 End: 03-24-2024 ambulatory 03/24/2024 8:00 AM EST OT/PT/Speech Visit [facility] [address] [place] [address] Kb Ruggiero, PT Primary osteoarthritis of left hip [M16.12] [facility] Comment on above: Primary osteoarthritis of left hip [M16. 12] Start: 03-23-2024 End: 03-23-2024 ambulatory 03/23/2024 9:00 AM EST OT/PT/Speech Visit [facility] [address] [place] [address] Lauri Greene, PT [address] [place] [address] fecal urgency outlet dysfunction [facility] Comment on above: fecal urgency outlet dysfunction Start: 03-20-2024 Covid-19 Vaccine ( season) Covid-19 Vaccine ( season) [facility] Comment on above: Postponed from 12/20/2022 (Declined at t his time) Start: 03-20-2024 RSV Vaccine (1 - 1-dose 60+ series) RSV Vaccine (1 - 1-dose 60+ series) [facility] Comment on above: Postponed from 2003 (Declined at t his time) Start: 03-20-2024 RSV Vaccine (1 - 1-dose 75+ series) RSV Vaccine (1 - 1-dose 75+ series) [facility] Comment on above: Postponed from 09/05/2018 (Declined at t his time) Start: 03-20-2024 Shingrix Vaccine (2 of 3) Shingrix Vaccine (2 of 3) [facility] Comment on above: Postponed from 01/11/2011 (Declined at t his time) Start: 03-20-2024 Urine microalbumin profile DTaP,Tdap,Td Vaccine (1 - Tdap) [facility] Comment on above: Postponed from 09/19/2010 (Declined at t his time) Start: 03-19-2024 End: 03-19-2024 ambulatory 03/19/2024 11:00 AM EST OT/PT/Speech Visit [facility] [address] [place], [place] [address] Elaina Owens, FILTRATION PLANT MECHANIC [address] [place] [address] Priority: Routine [facility] Comment on above: Priority: Routine Start: 03-01-2024 End: 03-01-2024 ambulatory 03/01/2024 5:15 PM EST OT/PT/Speech Visit [facility] [address] [place] [address] Lemon, Kb, PT Primary osteoarthritis of left hip [M16.12] [facility] Comment on above: Primary osteoarthritis of left hip [M16. 12] Start: 01-28-2024 End: 01-28-2024 Patient encounter procedure 01/28/2024 9:30 AM EDT Office Visit [facility] [address] [facility] [address] [place] [address] Sharif Farmer MD [address] [facility] [address] [place] [address] Ref for Anal Stricture [facility] Comment on above: Ref for Anal Stricture Start: 12-21-2023 Covid-19 Vaccine ( season) Covid-19 Vaccine () [facility] Start: 12-21-2023 Covid-19 Vaccine () Covid-19 Vaccine () [facility] Start: 12-21-2023 Influenza vaccination Influenza Vaccine (#1) [facility] Start: 11-20-2023 End: 11-20-2023 Patient encounter procedure 11/20/2023 10:05 AM EDT Appointment Radiology [address] [place] [phone] Encounter for screening for osteoporosis [Z13.820]; Asymptomatic postmenopausal status [Z78.0] Radiology Comment on above: Encounter for screening for osteoporosis [Z13.820]; Asymptomatic postmenopausal status [Z78.0] Start: 11-11-2023 End: 11-11-2023 Patient encounter procedure 11/11/2023 12:30 PM EDT Office Visit [facility] [address] [place] [address] Bilateral carotid artery stenosis [I65.23] [facility] Comment on above: Bilateral carotid artery stenosis [I65.2 3] Start: 09-30-2023 End: 09-30-2023 Patient encounter procedure 09/30/2023 10:00 AM EDT Office Visit [place] [id number] [place] [phone] Bernabe Cox MD [address] [place] [address] annual f/u, MRI 09/[address] [facility] Comment on above: annual f/u, MRI 09/23 Start: 09-24-2023 End: 09-24-2023 Patient encounter procedure 09/24/2023 8:15 AM EDT Appointment [facility] [address] [place] [address] Benign meningioma of brain (HCC) [D32.0] [facility] Comment on above: Benign meningioma of brain (HCC) [D32.0] Start: 09-24-2023 Subsequent hospital visit by physician 09/24/2023 8:15 AM EDT Hospital Encounter [facility] [address] [place] [address] Benign meningioma of brain (HCC) [D32.0] [facility] Comment on above: Benign meningioma of brain (HCC) [D32.0] Start: 09-09-2023 End: 09-09-2023 Patient encounter procedure 09/09/2023 11:15 AM EDT Office Visit [facility] [address] [place] [phone] Bernabe Cox MD [address] [facility] [place] [address] 1 year follow up [facility] Comment on above: 1 year follow up Start: 09-05-2023 End: 09-05-2023 Patient encounter procedure 09/05/2023 11:15 AM EDT Appointment [facility]IC[facility] [address] [place] [address] MRI BRAIN WO/W [facility] Comment on above: MRI BRAIN WO/W Start: 08-31-2023 DIABETES SCREEN DIABETES SCREEN [facility] Start: 08-31-2023 [facility] Start: 04-22-2023 Anesthesia lower intst endoscopic px nos ANES LWR INTST NDSC NOS [facility] Start: 04-22-2023 Colonoscopy w/biopsy single/multiple COLONOSCOPY AND BIOPSY [facility] Start: 04-22-2023 Patient discharge [facility] Start: 04-21-2023 Advance Directive Discussion Advance Directive Discussion [facility] Start: 04-21-2023 Behavioral Health Screening Behavioral Health Screening [facility] Start: 04-01-2023 Egd transoral biopsy single/multiple EGD BIOPSY SINGLE/MULTIPLE [facility] Start: 04-01-2023 Patient discharge [facility] Start: 12-20-2022 Covid-19 Vaccine () Covid-19 Vaccine () [facility] Start: 12-20-2022 Influenza vaccination [facility] Start: 10-24-2022 COVID-19 VACCINE (3 - Booster for Moderna series) COVID-19 VACCINE (3 - Booster for Moderna series) [facility] Comment on above: Postponed from 12/17/2020 (Declined at t his time) Postponed from 09/11 (Declined at this time) Start: 10-24-2022 SHINGRIX VACCINE (2 of 3) SHINGRIX VACCINE (2 of 3) [facility] Comment on above: Postponed from 01/11/2011 (Declined at t his time) Start: 10-04-2022 Adult depression screening assessment DEPRESSION SCREENING [facility] Start: 04-21-2022 ADVANCE DIRECTIVE DISCUSSION ADVANCE DIRECTIVE DISCUSSION [facility] Start: 04-21-2022 DEPRESSION ASSESSMENT DEPRESSION ASSESSMENT [facility] Start: 03-29-2022 Patient discharge [facility] Work Phone: Start: 01-13-2022 Adult depression screening assessment DEPRESSION SCREENING [facility] Start: 01-13-2022 Urine microalbumin profile DTAP,TDAP,TD (1 - Tdap) [facility] Comment on above: Postponed from 09/19/2010 (Declined at t his time) Start: 12-20-2021 Influenza vaccination INFLUENZA (#1) [facility] Start: 04-21-2021 ADVANCE DIRECTIVE DISCUSSION ADVANCE DIRECTIVE DISCUSSION [facility] Start: 04-21-2021 DEPRESSION ASSESSMENT DEPRESSION ASSESSMENT [facility] Start: 12-17-2020 COVID-19 VACCINE (3 - Booster for Moderna series) COVID-19 VACCINE (3 - Booster for Moderna series) [facility] Start: 09-11-2020 COVID-19 VACCINE (3 - Moderna series) COVID-19 VACCINE (3 - Moderna series) [facility] Start: 09-05-2018 RSV Vaccine (1 - 1-dose 75+ series) RSV Vaccine (1 - 1-dose 75+ series) [facility] Start: 01-11-2011 SHINGRIX VACCINE (2 of 3) SHINGRIX VACCINE (2 of 3) [facility] Start: 09-19-2010 Urine microalbumin profile [facility] Start: 2003 RSV Vaccine (1 - 1-dose 60+ series) RSV Vaccine (1 - 1-dose 60+ series) [facility] Start: 09-05-1961 Anxiety Screening Anxiety Screening [facility] Start: 09-05-1961 Depression Screening Depression Screening [facility] Start: 09-05-1961 HEPATITIS C SCREENING HEPATITIS C SCREENING [facility] BACTERIAL VAGINOSIS NAAT BACTERIAL VAGINOSIS NAAT Lab Routine Vaginal itching 10/04/2024 9:59 AM EDT [facility] Work Phone: Bfb traing w/emg&/manometry ea addl 15 min cntct BFB TRAING W/EMG&AMP;/MANOMETRY EA ADDL 15 MIN CNTCT Procedures Routine Fecal urgency Outlet dysfunction constipation Ordered: 01/28/2024 [facility] Work Phone: Comment on above: Ordered: 01/28/2024 Blood chemistry [facility] Work Phone: VENKAT/TRICHOMONAS NAAT VENKAT/TRICHOMONAS NAAT Lab Routine Vaginal itching 10/04/2024 9:59 AM EDT [facility] CBC W Auto Differential panel - Blood [facility] Comprehensive metabolic 2000 panel - Serum or Plasma [facility] COVID & INFLUENZA A/ B & RSV NAAT, ROUTINE COVID & INFLUENZA A/B & RSV NAAT, ROUTINE Microbiology Routine URI, acute 02/27/2023 12:41 PM EST [facility] Work Phone: CT angiography of coronary arteries [facility] End: 12-13-2022 CT BRAIN WO IVCON CT BRAIN WO IVCON Radiology Routine Benign meningioma of brain (HCC) Benign neoplasm of meninges (HCC) 1 Occurrences starting 11/13/2021 until 12/13/2022 [facility] Work Phone: Comment on above: 1 Occurrences starting 11/13/2021 until 12/13/2022 End: 01-29-2022 CT BRAIN WO IVCON [facility] Work Phone: Comment on above: 1 Occurrences starting 01/29/2022 until 01/29/2022 End: 03-07-2023 CT BRAIN WO IVCON CT BRAIN WO IVCON Radiology Routine Benign meningioma of brain (HCC) Benign neoplasm of meninges (HCC) 1 Occurrences starting 02/05/2022 until 03/07/2023 [facility] Work Phone: Comment on above: 1 Occurrences starting 02/05/2022 until 03/07/2023 End: 11-04-2024 DXA Skeletal system.axial Views for bone density DXA-AXIAL SKELETON Radiology Routine Encounter for screening for osteoporosis Asymptomatic postmenopausal status 1 Occurrences starting 10/06/2023 until 11/04/2024 [facility] Work Phone: Comment on above: 1 Occurrences starting 10/06/2023 until 11/04/2024 DXA Skeletal system.axial Views for bone density DXA-AXIAL SKELETON Radiology Routine Encounter for screening for osteoporosis Asymptomatic postmenopausal status 11/20/2023 10:32 AM EDT [facility] Work Phone: Lipid 1996 panel - Serum or Plasma [facility] Magnesium [Mass/volume] in Serum or Plasma [facility] Work Phone: End: 04-18-2024 ARLENE SCREENING ARLENE SCREENING Radiology Routine Screening mammogram for breast cancer 1 Occurrences starting 03/20/2023 until 04/18/2024 [facility] Work Phone: Comment on above: 1 Occurrences starting 03/20/2023 until 04/18/2024 ARLENE SCREENING ARLENE SCREENING Ra diology Routine Screening mammogram for breast cancer 03/24/2023 2:18 PM EST [facility] Work Phone: End: 04-09-2025 MG Breast Screening ARLENE SCREENING Radiology Routine Screening mammogram for breast cancer 1 Occurrences starting 03/10/2024 until 04/09/2025 [facility] Work Phone: Comment on above: 1 Occurrences starting 03/10/2024 until 04/09/2025 End: 10-22-2024 MR Brain WO and W contrast IV MRI BRAIN WO/W IVCON Radiology Routine Benign meningioma of brain (HCC) 1 Occurrences starting 09/23/2023 until 10/22/2024 [facility] Work Phone: Comment on above: 1 Occurrences starting 09/23/2023 until 10/22/2024 MR Brain WO and W contrast IV MRI BRAIN WO/W IVCON Radiology Routine Benign meningioma of brain (HCC) 09/24/2023 9:08 AM EDT [facility] Work Phone: End: 09-02-2025 MR Brain WO and W contrast IV MRI BRAIN WO/W IVCON Radiology Routine Benign meningioma of brain (HCC) 1 Occurrences starting 08/03/2024 until 09/02/2025 [facility] Work Phone: Comment on above: 1 Occurrences starting 08/03/2024 until 09/02/2025 MR Brain WO and W contrast IV MRI BRAIN WO/W IVCON Radiology Routine Benign meningioma of brain (HCC) 08/27/2024 11:49 AM EDT [facility] Work Phone: End: 09-30-2025 MR Brain WO and W contrast IV MRI BRAIN WO/W IVCON Radiology Routine Benign meningioma of brain (HCC) 1 Occurrences starting 08/31/2024 until 09/30/2025 [facility] Work Phone: Comment on above: 1 Occurrences starting 08/31/2024 until 09/30/2025 End: 12-13-2022 Mri brain brain stem w/o w/contrast material MRI BRAIN WO/W IVCON Radiology Routine Benign meningioma of brain (HCC) Benign neoplasm of meninges (HCC) 1 Occurrences starting 11/13/2021 until 12/13/2022 [facility] Work Phone: Comment on above: 1 Occurrences starting 11/13/2021 until 12/13/2022 End: 01-29-2022 Mri brain brain stem w/o w/contrast material [facility] Work Phone: Comment on above: 1 Occurrences starting 01/29/2022 until 01/29/2022 End: 03-07-2023 Mri brain brain stem w/o w/contrast material MRI BRAIN WO/W IVCON Radiology Routine Benign meningioma of brain (HCC) Benign neoplasm of meninges (HCC) 1 Occurrences starting 02/05/2022 until 03/07/2023 [facility] Work Phone: Comment on above: 1 Occurrences starting 02/05/2022 until 03/07/2023 End: 02-12-2022 Mri brain brain stem w/o w/contrast material [facility] Work Phone: Comment on above: 1 Occurrences starting 02/12/2022 until 02/12/2022 NM Heart Views W stress and W radionuclide IV [facility] Work Phone: Patient Education [facility] Work Phone: Patient referral [facility] Work Phone: PT PLAN OF CARE CERTIFICATION PT PLAN OF CARE CERTIFICATION Procedures Routine Acute left-sided thoracic back pain Left Achilles tendinitis Ordered: 11/26/2021 [facility] Work Phone: Comment on above: Ordered: 11/26/2021 PT PLAN OF CARE CERTIFICATION PT PLAN OF CARE CERTIFICATION Procedures Routine Left Achilles tendinitis Acute left-sided thoracic back pain Ordered: 12/25/2021 [facility] Work Phone: Comment on above: Ordered: 12/25/2021 Radionuclide imaging of perfusion of myocardium under exercise stress [facility] ROUTINE FLU A/B + RSV ROUTINE FL U A/B + RSV Lab Routine URI, acute 02/27/2023 12:41 PM [facility] Work Phone: SARS-CoV-2 (COVID-19 ) RNA [Presence] in Respiratory specimen by DAR with probe detection COVID NAAT, UPPER RESPIRATORY, ROUTINE Microbiology Routine URI, acute 02/27/2023 12:41 PM EST [facility] Work Phone: End: 03-29-2023 Screening mammography bi 2-view breast inc cad ARLENE SCREENING Radiology Routine Encounter for screening mammogram for malignant neoplasm of breast 1 Occurrences starting 02/27/2022 until 03/29/2023 [facility] Work Phone: Comment on above: 1 Occurrences starting 02/27/2022 until 03/29/2023 Thyroid stimulating hormone measurement [facility] Work Phone: US Carotid arteries [facility] End: 10-05-2024 US Carotid arteries - bilateral US CAROTID ARTERIES [facility] Vascular Lab Routine Bilateral carotid artery stenosis 1 Occurrences starting 10/06/2023 until 10/05/2024 [facility] Comment on above: 1 Occurrences starting 10/06/2023 until 10/05/2024 [facility] Work Phone: [facility] XR Ankle - right AP and Lateral and oblique XR ANKLE GENERAL 3V AP/LAT/OBL RIGHT Radiology Routine Right knee pain, unspecified chronicity 10/06/2023 2:23 PM EDT [facility] Work Phone: XR Foot - right AP a nd Lateral and oblique XR FOOT GENERAL 3V AP/LAT/OBL RIGHT Radiology Routine Pain 08/03/2024 2:44 PM EDT [facility] Work Phone: XR FOOT GENERAL 3V AP/LAT/OBL LEFT XR FOOT GENERAL 3V AP/LAT/OBL LEFT Radiology Routine Pain of left heel 10/24/2021 12:20 PM EDT [facility] Work Phone: End: 11-04-2024 XR Knee - right 4 Views XR KNEE GENERAL 4V AP BOTH/PA BOTH/LAT/MERC RIGHT Radiology Routine Right knee pain, unspecified chronicity 1 Occurrences starting 10/06/2023 until 11/04/2024 [facility] Comment on above: 1 Occurrences starting 10/06/2023 until 11/04/2024 XR Knee - right 4 Views XR KNEE GENERAL 4V AP BOTH/PA BOTH/LAT/MERC RIGHT Radiology Routine Right knee pain, unspecified chronicity 10/06/2023 2:39 PM EDT [facility] Immunizations Immunization Date Immunization Notes Care Provider [facility] 01-08-2024 influenza, high dose seasonal, preservative-free Gavin Tran MD Work Phone: [facility] 01-08-2024 influenza virus vacc ine, unspecified formulation Gavin Tran MD Work Phone: [facility] 03-20-2023 influenza (HD-IIV4) vaccine, age 65+ yr, high dose, quadrivalent, PF (FLUZONE HIGH-DOSE) Catina Older SENIOR GAMES TECHNICIAN.FINANCE SPECIALIST Work Phone: [facility] 03-20-2023 influenza virus vacc ine, unspecified formulation [facility] Work Phone: [facility] 01-17-2022 influenza, high-dose , quadrivalent vaccine (FLUZONE HIGH DOSE QUADRIVALENT) Ccf Provider [facility] Work Phone: 01-17-2022 influenza virus vacc ine, unspecified formulation Screen Wstr [facility] 02-24-2021 influenza, high-dose , quadrivalent vaccine (FLUZONE HIGH DOSE QUADRIVALENT) Bernabe Cox MD Work Phone: [facility] Work Phone: 07-17-2020 COVID-19 vaccine, fu ll dose (MODERNA) Bernabe Cox MD Work Phone: [facility] Work Phone: 06-19-2020 COVID-19 vaccine, fu ll dose (MODERNA) Bernabe Cox MD Work Phone: [facility] Work Phone: 01-21-2020 influenza, high-dose , quadrivalent vaccine (FLUZONE HIGH DOSE QUADRIVALENT) Bernabe Cox MD Work Phone: [facility] 01-21-2019 influenza, high dose seasonal, preservative-free Bernabe Cox MD Work Phone: [facility] 01-14-2018 influenza, high dose seasonal, preservative-free Bernabe Cox MD Work Phone: [facility] Work Phone: 01-20-2017 Influenza virus vaccine [facility] 12-31-2016 influenza, high dose seasonal, preservative-free Bernabe Cox MD Work Phone: [facility] 01-31-2016 influenza, high dose seasonal, preservative-free Bernabe Cox MD Work Phone: [facility] 03-06-2015 pneumococcal conjuga te vaccine, 13 valent Bernabe Cox MD Work Phone: [facility] Work Phone: 02-08-2015 influenza, high dose seasonal, preservative-free Bernabe Cox MD Work Phone: [facility] 02-08-2014 influenza, seasonal, injectable Bernabe Cox MD Work Phone: [facility] 01-26-2013 influenza virus vacc ine, unspecified formulation Bernabe Cox MD Work Phone: [facility] 01-13-2012 influenza virus vacc ine, unspecified formulation Bernabe Cox MD Work Phone: [facility] Work Phone: 01-23-2011 influenza virus vacc ine, unspecified formulation Bernabe Cox MD Work Phone: [facility] 11-16-2010 zoster vaccine, live Bernabe Cox MD Work Phone: [facility] 09-18-2010 tetanus and diphther ia toxoids, adsorbed, preservative free, for adult use (2 Lf of tetanus toxoid and 2 Lf of diphtheria toxoid) Bernabe Cox MD Work Phone: [facility] Work Phone: 01-31-2010 influenza virus vacc ine, unspecified formulation Bernabe Cox MD Work Phone: [facility] Work Phone: 02-02-2009 influenza virus vacc ine, unspecified formulation Bernabe Cox MD Work Phone: [facility] Work Phone: 11-30-2008 pneumococcal polysaccharide vaccine, 23 valent Bernabe Cox MD Work Phone: [facility] Payers Date Payer Category Payer Self-pay [id number] 2023 Medicare (Managed Care) [employer] [place] [id number] 2023 Private Health Insurance 101 [id number] 2018 Medicare HUMANA MEDICARE HUMANA MEDICARE PPO [id number] 2018-Present [phone] [address] [address] [place] [address] PPO [id number] 2018 Medicare [id number] Medicare [id number] Unknown [id number] Unknown [id number] Unknown [id number] Unknown [id number] Unknown [id number] Unknown [id number] Unknown [id number] Social History Date Type Detail Facility Start: 01-26-2013 End: 11-30-2023 Tobacco smoking status WYIS Never smoked tobacco [facility] Start: 02-04-2021 End: 12-17-2024 Alcohol intake Current non-drinker of alcohol (finding) [facility] Start: 1945 Sex Assigned At Female [facility] Start: 03-25-2020 End: 08-31-2023 Tobacco smoking status WYIS Unknown if ever smoked [facility] Start: 09-03-2021 End: 03-05-2022 Exposure to SARS-CoV-2 (event) Not sure [facility] Start: 01-26-2013 Tobacco use and exposure Smokeless tobacco non-user [facility] Work Phone: Start: 02-27-2022 History SDOH Physica l Activity DPW 3 [facility] Start: 02-27-2022 History SDOH Physica l Activity MPS 1 [facility] Start: 09-03-2022 End: 12-06-2022 History of Social function [facility] Work Phone: Start: 09-03-2022 End: 12-06-2022 Tobacco use panel [facility] Work Phone: Start: 03-22-2012 Adult Depression Screening Assessment 0 [facility] Work Phone: Do you feel stress - tense, restless, nervous, or anxious, or unable to sleep at night because your mind is troubled all the time - these days [OSQ] Only a little [facility] Work Phone: Start: 01-24-2021 Gender identity Identifies as female gender (finding) [facility] Start: 01-24-2021 Sexual orientation Heterosexual (felipe english) [facility] How often to you hav e a drink containing alcohol? Never [facility] Has the [employer], [employer], or water [employer]act[employer] threatened to shut off services in your home in past 12Mo No [facility] (I/We) worried wheth er (my/our) food would run out before (I/we) got money to buy more. Never true [facility] NEGATED: Highlighted row [facility] Medical Equipment Procedure Code Equipment Code Equipment Origin al Text Equipment Identifier Dates AUSTIN AGUIRRE LG FDA Start: 12-03-2017 AUSTIN AGUIRRE FDA Start: 12-03-2017 RELOAD, SR75 SELECTABLE FDA Start: 12-03-2017 RELOAD, SR75 SELECTABLE FDA Start: 12-03-2017 RELOAD, SR75 SELECTABLE FDA Start: 12-03-2017 YESSICA ZARAGOZA FDA Start: 12-03-2017 AUSTIN AGUIRRE LG FDA Start: 12-03-2017 AUSTIN AGUIRRE FDA Start: 12-03-2017 RELOAD, SR75 SELECTABLE FDA Start: 12-03-2017 RELOAD, SR75 SELECTABLE FDA Start: 12-03-2017 RELOAD, SR75 SELECTABLE FDA Start: 12-03-2017 YESSICA ZARAGOZA FDA Start: 12-03-2017 AUSTIN AGUIRRE LG FDA Start: 12-03-2017 AUSTIN AGUIRRE FDA Start: 12-03-2017 RELOAD, SR75 SELECTABLE FDA Start: 12-03-2017 RELOAD, SR75 SELECTABLE FDA Start: 12-03-2017 RELOAD, SR75 SELECTABLE FDA Start: 12-03-2017 STAPSONY,TL60 FDA Start: 12-03-2017 CARLAMERRICKARVIND DAILY FDA Start: 12-03-2017 AUSTIN AGUIRRE Dominique KILLIAN FDA Start: 12-03-2017 RELOAD, SR75 SELECTABLE FDA Start: 12-03-2017 RELOAD, SR75 SELECTABLE FDA Start: 12-03-2017 RELOAD, SR75 SELECTABLE FDA Start: 12-03-2017 STAPLER,TL60 FDA Start: 12-03-2017 CARLAMERRICKARVIND DAILY FDA Start: 12-03-2017 CARLAMERRICKARVIND Dominique DAILY FDA Start: 12-03-2017 RELOAD, SR75 SELECTABLE FDA Start: 12-03-2017 RELOAD, SR75 SELECTABLE FDA Start: 12-03-2017 RELOAD, SR75 SELECTABLE FDA Start: 12-03-2017 [id number] FDA Start: 12-03-2017 CARLACHIQUICHELI DAILY FDA Start: 12-03-2017 CARLAMERRICKARVIND Dominique DAILY FDA Start: 12-03-2017 RELOAD, SR75 SELECTABLE FDA Start: 12-03-2017 RELOAD, SR75 SELECTABLE FDA Start: 12-03-2017 RELOAD, SR75 SELECTABLE FDA Start: 12-03-2017 STAPLER,TL60 FDA Start: 12-03-2017 CARLAMERRICKARVIND DAILY FDA Start: 12-03-2017 CARLAMERRICKARVIND Dominique DAILY FDA Start: 12-03-2017 RELOAD, SR75 SELECTABLE FDA Start: 12-03-2017 RELOAD, SR75 SELECTABLE FDA Start: 12-03-2017 RELOAD, SR75 SELECTABLE FDA Start: 12-03-2017 STAPLER,TL60 FDA Start: 12-03-2017 CARLACHIQUICHELI DAILY FDA Start: 12-03-2017 CARLAAUSTIN Dominique DAILY FDA Start: 12-03-2017 RELOAD, SR75 SELECTABLE FDA Start: 12-03-2017 RELOAD, SR75 SELECTABLE FDA Start: 12-03-2017 RELOAD, SR75 SELECTABLE FDA Start: 12-03-2017 STAPLER,TL60 FDA Start: 12-03-2017 CARLACHIQUICHELI DAILY FDA Start: 12-03-2017 CARLAMERRICKARVIND Dominique SNYDERARVIND FDA Start: 12-03-2017 RELOAD, SR75 SELECTABLE FDA Start: 12-03-2017 RELOAD, SR75 SELECTABLE FDA Start: 12-03-2017 RELOAD, SR75 SELECTABLE FDA Start: 12-03-2017 [id number] FDA Start: 12-03-2017 CARLACHIQUICHELI DAILY FDA Start: 12-03-2017 CARLAMERRICKARVIND Dominique DAILY FDA Start: 12-03-2017 RELOAD, SR75 SELECTABLE FDA Start: 12-03-2017 RELOAD, SR75 SELECTABLE FDA Start: 12-03-2017 RELOAD, SR75 SELECTABLE FDA Start: 12-03-2017 [id number] FDA Start: 12-03-2017 CARLACHIQUICHELI DAILY FDA Start: 12-03-2017 CARLACHIQUICHELI DAILY FDA Start: 12-03-2017 RELOAD, SR75 SELECTABLE FDA Start: 12-03-2017 RELOAD, SR75 SELECTABLE FDA Start: 12-03-2017 RELOAD, SR75 SELECTABLE FDA Start: 12-03-2017 [id number] FDA Start: 12-03-2017 CARLACHIQUICHELI DAILY FDA Start: 12-03-2017 CARLAMERRICKARVIND DAILY FDA Start: 12-03-2017 RELOAD, SR75 SELECTABLE FDA Start: 12-03-2017 RELOAD, SR75 SELECTABLE FDA Start: 12-03-2017 RELOAD, SR75 SELECTABLE FDA Start: 12-03-2017 [id number] FDA Start: 12-03-2017 CARLACHIQUICHELI DAILY FDA Start: 12-03-2017 CARLAMERRICKARVIND Dominique DAILY FDA Start: 12-03-2017 RELOAD, SR75 SELECTABLE FDA Start: 12-03-2017 RELOAD, SR75 SELECTABLE FDA Start: 12-03-2017 RELOAD, SR75 SELECTABLE FDA Start: 12-03-2017 [id number] FDA Start: 12-03-2017 CARLACHIQUICHELI DAILY FDA Start: 12-03-2017 CARLAMERRICKARVIND DAILY FDA Start: 12-03-2017 RELOAD, SR75 SELECTABLE FDA Start: 12-03-2017 RELOAD, SR75 SELECTABLE FDA Start: 12-03-2017 RELOAD, SR75 SELECTABLE FDA Start: 12-03-2017 [id number],TL60 FDA Start: 12-03-2017 CARLACHIQUICHELI HUANG DAILY FDA Start: 12-03-2017 CARLACHIQUICHELI ME Dominique DAILY FDA Start: 12-03-2017 RELOAD, SR75 SELECTABLE FDA Start: 12-03-2017 RELOAD, SR75 SELECTABLE FDA Start: 12-03-2017 RELOAD, SR75 SELECTABLE FDA Start: 12-03-2017 [id number] FDA Start: 12-03-2017 Goals Date Patient Goal Desired Activity /State Functional Status Date Assessment Result Facility 04-11-2024 Are you deaf, or do you have serious difficulty hearing No 04/11/2024 10:05 AM Shaniqua Bustillos RN No [facility] 04-11-2024 Are you blind, or do you have serious difficulty seeing, even when wearing glasses No 04/11/2024 10:05 AM Shaniqua Bustillos RN No [facility] 04-11-2024 Do you have serious difficulty walking or climbing stairs No 04/11/2024 10:05 AM Shaniqua Bustillos RN No [facility] 04-11-2024 Do you have difficul ty dressing or bathing No 04/11/2024 10:05 AM Shaniqua Bustillos RN [facility] 04-11-2024 Because of a physica l, mental, or emotional condition, do you have difficulty doing errands alone such as visiting a physician's office or shopping No 04/11/2024 10:05 AM Shaniqua Bustillos RN No [facility] Mental Status Date Assessment Result Facility 04-11-2024 Because of a physica l, mental, or emotional condition, do you have serious difficulty concentrating, remembering, or making decisions No 04/11/2024 10:05 AM Shaniqua Bustillos RN No [facility] 04-22-2023 Cognitive function Level Of Cons ciousness Sedated [facility] Work Phone: 04-01-2023 Cognitive function Voice/Name [facility] Work Phone: 03-29-2022 Cognitive function Light Pain Héctor [facility] Work Phone: Clinical Notes 11-25-2018 to 12-17-2024 Patient InstructionsRosa Isela Knapp MD - 12/17/2024 11:17 AM EDTBernabe Cox MD - 11/30/2024 11:00 AM EDTAddendum Note - Leslie Tran APRN.CNP - 11/28/2024 12:11 PM EDT Note Date & Type Note Facility 12-17-2024 Instructions Rosa Isela Knapp MD - 12/17/2024 12:02 PM EDT - machinist set up the clobetasol ointment at [facility] in [place] (one-year supply with refill). Apply a thin, pea-sized amount to the affected skin (outer lips [labia majora], perineum between vagina and rectum, and around the anus) twice daily for 4 weeks, then once weekly for maintenance. If your symptoms flare, resume twice-daily use until they calm, then return to weekly use. - Use unscented, wet wipes to gently dab the area after toileting--avoid vigorous wiping. - Wear plain white cotton underwear and use dye-free, scent-free pads and toilet paper. Avoid tight or restrictive clothing; remove underwear at bedtime. - Keep the area dry by changing sweaty or wet clothes promptly and avoid sitting in wet bathing suits or using hot tubs. - Inspect the skin weekly using a mirror (rest your foot on the toilet seat, place the mirror underneath) to check for new ulcers or persistent white patches. If you notice any new, non-healing areas or your symptoms do not improve after 4 weeks of treatment, contact our office for possible biopsy. - A urine sample was collected and tested today; we will call you only if the results are abnormal. documented in this encounter [facility] 12-17-2024 Note HNO ID: [id number] Author: ROSA ISELA KNAPP MD Service: ? Author Type: Physician Type: Progress Notes Filed: 12/17/2024 12:03 Note Text: Regional Climate Change Analyst offered: Patient declines. 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 Patient/authorized product representative agreed to proceed CHIEF COMPLAINT: The patient is an 79-year-old female with bowel incontinence, presenting for evaluation of recurrent vulvar pruritus. HPI: The patient is an 79-year-old female with a history of vulvar dermatitis presenting with recurrent vulvar pruritus and new onset dysuria. Vulvar Pruritus - Initial onset in September, previously treated with clobetasol and hygiene modifications, which provided relief. - Recurrence of pruritus began approximately 10 days ago without any changes in hygiene habits. - Resumed clobetasol use has used twice in the past week, noting no worsening of symptoms. - No associated vaginal discharge. Dysuria - Onset of burning with urination began 2 days ago. - No hematuria or frothiness observed in urine. Urinary Incontinence - Reports urinary incontinence and nocturia, voiding approximately 3 times per night; these symptoms are chronic and unchanged. Bowel Incontinence - Reports bowel incontinence. - Scheduled to see a concrete rod buster in a couple of weeks for evaluation. 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 History Comments: Sexual Activity: Not Asked; No partner data on record Contraception: No contraception data on record 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 CERVICAL SPONDYLOSIS 02/26/2005 Diarrhea Diverticulosis of colon 01/06/2009 Esophageal reflux Hemorrhage of rectum and anus 12/02/2017 HEMORRHOIDS NOS 11/30/2008 HYPERLIPIDEMIA NEC/NOS 03/18/2005 IBS (irritable bowel syndrome) 01/26/2013 Incontinence of feces 11/30/2008 Incontinence of feces 03/09/2021 Left leg weakness 03/01/2024 Nausea vomiting and diarrhea 04/06/2024 Osteopenia Palpitations 01/13/2012 Perforation of large intestine (HCC) 12/03/2017 Primary osteoarthritis of left hip 03/01/2024 Spondylosis, 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 TIA (transient ischemic attack) 06/17/2017 [place], [place] Tick bite of neck 10/04/2024 PAST SURGICAL HISTORY Procedure Laterality Date CHOLECYSTECTOMY HX 03/2018 COLONOSCOPY FLX DX W/COLLJ SPEC WHEN PFRMD 10/20/2003 Colonoscopy COLONOSCOPY FLX DX W/COLLJ SPEC WHEN PFRMD 01/06/2009 Extensive diverticulosis/hemorrhoids COLONOSCOPY FLX DX W/COLLJ SPEC WHEN PFRMD 07/24/2012 [place] COLSC FLEXIBLE W/CONTROL BLEEDING ANY METHOD 12/02/2017 laser of cecal AVM DRAIN ABDOMINAL ABSCESS, PERCUTANEOUS 12/15/2017 perianastomotic abscess EGD 12/02/2017 ESOPHAGOGASTRODUODENOSCOPY TRANSORAL DIAGNOSTIC 07/03/2012 [place] GAMMA KNIFE 1FX TX DELIVERY 02/12/2022 x 3 on 01/15/22; 01/29/22; 02/12/22 HEMORRHOIDECTOMY INT AND XTRNL 2/> COLUMN/HI 10/26/2009 LAMINECTOMY W/RMVL ABNORMAL FACETS LUMBAR 07/08/2011 [place] LAPAROSCOPY COLECTOMY PARTIAL W/ANASTOMOSIS 02/02/2009 LAPAROSCOPY COLECTOMY PARTIAL W/ANASTOMOSIS Right 12/03/2017 LAPS MOBLJ SPLENIC FLXR PFRMD W/PRTL COLECTOMY 02/02/2009 PAST SURGICAL HISTORY OF 1964 ovarian cyst removed PAST SURGICAL HISTORY OF 2001 BREAST BIOPSY--BENIGN PAST SURGICAL HISTORY OF 03/28/2018 Gallbladder removed SIGMOIDOSCOPY FLX CONTROL BLEEDING 03/22/2009 Granulation tissue at anastomosis SIGMOIDOSCOPY FLX W/BIOPSY SINGLE/MULTIPLE 02/28/2011 TOTAL ABDOMINAL HYSTERECT W/WO RMVL TUBE OVARY 02/1990 Hysterectomy, TERI, BSO FAMILY HISTORY Problem Relation Age of Onset Breast Cancer Mother dec. age 88 Blood Disease Father PE, post MVA, dec. 53yo Breast Cancer Sister Myositis Sister Inclusion Body Myositis None Sister Alzheimer's Disease Sister other (multiple myeloma) Brother SOCIAL HISTORY[1] Current Outpatient Medications Medication Sig alendronate (FOSAMAX) 70 mg tablet Take 1 tablet by mouth one time a week. Take with a full glass of water, on an empty stomach; do NOT lie down for 30minutes. lactobacillus rhamnosus (CULTURELLE) 10 billion cell capsule Take 1 capsule by mouth once daily. atorvastatin (LIPITOR) 40 mg tablet TAKE 1 TABLET EVERY DAY AT BEDTIME FOR CHOLESTEROL meclizine (ANTIVERT) 12.5 mg tab Take 2 tablets by mouth three ti (more content not included)... [facility] 12-17-2024 History of Present illness Narrative Images from the original note were not included. Regional Climate Change Analyst offered: Patient declines. 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 Patient/authorized product representative agreed to proceed CHIEF COMPLAINT: The patient is an 79-year-old female with bowel incontinence, presenting for evaluation of recurrent vulvar pruritus. HPI: The patient is an 79-year-old female with a history of vulvar dermatitis presenting with recurrent vulvar pruritus and new onset dysuria. Vulvar Pruritus - Initial onset in September, previously treated with clobetasol and hygiene modifications, which provided relief. - Recurrence of pruritus began approximately 10 days ago without any changes in hygiene habits. - Resumed clobetasol use has used twice in the past week, noting no worsening of symptoms. - No associated vaginal discharge. Dysuria - Onset of burning with urination began 2 days ago. - No hematuria or frothiness observed in urine. Urinary Incontinence - Reports urinary incontinence and nocturia, voiding approximately 3 times per night; these symptoms are chronic and unchanged. Bowel Incontinence - Reports bowel incontinence. - Scheduled to see a concrete rod buster in a couple of weeks for evaluation. 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 History Comments: Sexual Activity: Not Asked; No partner data on record Contraception: No contraception data on record 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 CERVICAL SPONDYLOSIS 02/26/2005 Diarrhea Diverticulosis of colon 01/06/2009 Esophageal reflux Hemorrhage of rectum and anus 12/02/2017 HEMORRHOIDS NOS 11/30/2008 HYPERLIPIDEMIA NEC/NOS 03/18/2005 IBS (irritable bowel syndrome) 01/26/2013 Incontinence of feces 11/30/2008 Incontinence of feces 03/09/2021 Left leg weakness 03/01/2024 Nausea vomiting and diarrhea 04/06/2024 Osteopenia Palpitations 01/13/2012 Perforation of large intestine (HCC) 12/03/2017 Primary osteoarthritis of left hip 03/01/2024 Spondylosis, 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 TIA (transient ischemic attack) 06/17/2017 [place], [place] Tick bite of neck 10/04/2024 PAST SURGICAL HISTORY Procedure Laterality Date CHOLECYSTECTOMY HX 03/2018 COLONOSCOPY FLX DX W/COLLJ SPEC WHEN PFRMD 10/20/2003 Colonoscopy COLONOSCOPY FLX DX W/COLLJ SPEC WHEN PFRMD 01/06/2009 Extensive diverticulosis/hemorrhoids COLONOSCOPY FLX DX W/COLLJ SPEC WHEN PFRMD 07/24/2012 [place] COLSC FLEXIBLE W/CONTROL BLEEDING ANY METHOD 12/02/2017 laser of cecal AVM DRAIN ABDOMINAL ABSCESS, PERCUTANEOUS 12/15/2017 perianastomotic abscess EGD 12/02/2017 ESOPHAGOGASTRODUODENOSCOPY TRANSORAL DIAGNOSTIC 07/03/2012 [place] GAMMA KNIFE 1FX TX DELIVERY 02/12/2022 x 3 on 01/15/22; 01/29/22; 02/12/22 HEMORRHOIDECTOMY INT & XTRNL 2/> COLUMN/HI 10/26/2009 LAMINECTOMY W/RMVL ABNORMAL FACETS LUMBAR 07/08/2011 [place], [place] LAPAROSCOPY COLECTOMY PARTIAL W/ANASTOMOSIS 02/02/2009 LAPAROSCOPY COLECTOMY PARTIAL W/ANASTOMOSIS Right 12/03/2017 LAPS MOBLJ SPLENIC FLXR PFRMD W/PRTL COLECTOMY 02/02/2009 PAST SURGICAL HISTORY OF 1964 ovarian cyst removed PAST SURGICAL HISTORY OF 2001 BREAST BIOPSY--BENIGN PAST SURGICAL HISTORY OF 03/28/2018 Gallbladder removed SIGMOIDOSCOPY FLX CONTROL BLEEDING 03/22/2009 Granulation tissue at anastomosis SIGMOIDOSCOPY FLX W/BIOPSY SINGLE/MULTIPLE 02/28/2011 TOTAL ABDOMINAL HYSTERECT W/WO RMVL TUBE OVARY 02/1990 Hysterectomy, TERI, BSO FAMILY HISTORY Problem Relation Age of Onset Breast Cancer Mother dec. age 88 Blood Disease Father PE, post MVA, dec. 53yo Breast Cancer Sister Myositis Sister Inclusion Body Myositis None Sister Alzheimer's Disease Sister other (multiple myeloma) Brother SOCIAL HISTORY[1] Current Outpatient Medications Medication Sig alendronate (FOSAMAX) 70 mg tablet Take 1 tablet by mouth one time a week. Take with a full glass of water, on an empty stomach; do NOT lie down for 30minutes. lactobacillus rhamnosus (CULTURELLE) 10 billion cell capsule Take 1 capsule by mouth once daily. atorvastatin (LIPITOR) 40 mg tablet TAKE 1 TABLET EVERY DAY AT BEDTIME FOR CHOLESTEROL meclizine (ANTIVERT) 12.5 mg tab Take 2 tablets by mouth three times a day as needed. naproxen (NAPROSYN) 500 mg tablet Take 1 tablet by mouth two times a day with meals. fluticasone (FLONASE) 50 mcg/actuation nasal spray Use 2 Sprays in each nostril once daily. Rinse mouth after use. Cholecalciferol, Vitamin D3, 25 mcg (1,000 unit) cap Take 1 capsule by mouth once daily. VITAMIN E 200 UNIT CAP Take 200 Units by mouth once daily. Perry-3 Fatty Acids (FISH OIL) ORAL Cap Take one(1) capsule daily. MULTIVITAMIN TAB Take one(1) tablet daily. CALCIUM + D 600 MG-200 UNIT TAB Take one(1) tablet daily. ASPIRIN 81 MG TAB Take 81 mg by mouth once daily. clobetasol (TEMOVATE) 0.05 % ointment Apply to affected area (pea sized amount) BID x 4 weeks then use weekly iv contrast (will be provided with radiology test) MRI Brain Inject, intravenously, once for 1 dose.No IV access, insert saline lock prior to beginning of sedation, infusion, injection of imaging exam.Discontinue saline lock post exam. If Pt. has a central line or IVAD, may access for administration according to line specific nursing protocol.Once exam is complete flush line and de-access according to line specific nursing protocol in the MR contrast administration guidelines link No current facility-administered medications for this visit. ALLERGIES Allergen Reactions Bactrim [Sulfametho* GI Upset nausea Clindamycin Hcl GI Upset Flagyl [Metronidazo* GI Upset Gadolinium-Containi* Hives Gadolinium/Gadavist Trimethoprim Vomiting Levofloxacin GI Upset REVIEW OF SYSTEMS: Gastrointestinal: (+) fecal incontinence Genitourinary: (+) vulvar pruritus, (+) dysuria, (+) urinary incontinence, (+) nocturia, (-) vaginal discharge, (-) hematuria, (-) foamy urine Objective SENSITIVE EXAM: The sensitive examination was discussed with the Patient or Patient's Authorized Design Engineering Specialist. As applicable, any other physician, advance practice provider, medical student, or other health professional student that will be observing or involved in the sensitive examination for educational or training purposes was discussed with the Patient or Authorized Design Engineering Specialist. The Patient or Authorized Design Engineering Specialist has agreed to proceed with the sensitive examination. (Sensitive examination includes inspection and/or palpation of the breasts, pelvis, prostate and anorectal regions). PHYSICAL EXAM: BP 130/78 Wt 139 lb (63.1kg) GENERAL: Pleasant; no acute distress : - PELVIC: external genitalia notable for hypopigmented, patchy lesions extending around the anus and labia majora, no ulcerations, normal Bartholin's glands, urethra, Stockett's glands, - Patient consent for exam received NEURO: alert and oriented x3 EXTREMITIES: normal Assessment & Plan ASSESSMENT AND PLAN: 1. Vulvar dermatitis (L30.9) 2. Lichen sclerosus et atrophicus (L90.0) - Chronic lichen sclerosus with recent flare; exam revealed classic white, patchy lesions extending from labia majora to perianal area, without ulcerations. - Start clobetasol ointment, thin layer to affected areas BID for 4 weeks, then transition to maintenance dosing once weekly; instructed to increase to BID for 2 weeks during flares. - Educated on proper application technique, importance of maintenance therapy, and monitoring for new lesions or ulcerations; advised to avoid irritants (scented products, tight clothing, synthetic underwear) and use white cotton underwear. - Discussed rare risk (<1%) of progression to vulvar cancer if untreated; advised to report any new ulcerations or persistent white patches for possible biopsy. -discussed monitoring with mirror 3. Dysuria (R30.0) - Acute onset of dysuria with no vaginal discharge; possible UTI vs. irritation from lichen sclerosus. - Urinalysis ordered; will notify patient if results are abnormal. 4. Incontinence of feces, unspecified fecal incontinence type (R15.9) - Ongoing fecal incontinence; advised use of wet wipes and gentle dabbing to minimize irritation. - Follow-up with GI specialist in a few weeks. Medical Decision Making: Problems: Moderate: 1+ chronic illnesses with change Data: Unique test(s) ordered: 1 Risk: Moderate: Drug management and Moderate risk from testing/treatment Medical Decision Making Level: 4 - Moderate Rosa Isela Fernandez MD [1] Social History Tobacco Use Smoking status: Never Smokeless tobacco: Never Vaping Use Vaping status: Never Used Substance Use Topics Alcohol use: No Drug use: No documented in this encounter [facility] 11-30-2024 History of Present illness Narrative Images from the original note were not included. NEUROSURGERY FOLLOW UP OFFICE NOTE Dr. Bernabe Cox MD, FACS Date of visit: November 30, 2024 Patient Name: Ms.Marjorie Arielle Avalos Date of : 1945 Current Age: [age] year old Sex: female MRN/E# [id number] Last Office Visit: 08/31/2024 CHIEF COMPLAINT: Patient presents with: Established Patient Memory loss, unsteadiness. SUBJECTIVE: The patient presents as a follow-up without new imaging for evaluation. This is an 79-year-old female with a PMHx of intracranial meningioma diagnosed in September 2017 after experiencing episodes of visual changes. Given the symptoms MRI was obtained and demonstrated a left parasagittal meningioma for which no surgical intervention was indicated. She followed with Dr. Lindsey until 2021 imaging demonstrated an increase in size. She was referred for possible gamma knife treatment. She was seen for consult in August 2021 and reported intermittent episodes of right sided head pain but denied any significant headache. MRI was reviewed and compared to prior imaging. This showed a 6-7 mm increase from 2017 to 2021. Treatment options were discussed including open craniotomy with resection or gamma knife. Her case was discussed with the tumor board and radiation oncology who proposed that gamma knife could be provided in divided fractions which she agreed to. This was completed as noted below in 3 sessions. Since then she has been seen routinely for evaluation with imaging and has overall done well. She was last seen in the office in August 2024 and reported that she was overall doing well. She denied any new or concerning issues such as headache, visual changes, speech deficits, seizure activity, motor or sensory deficits. Neurologically she was intact on exam without focal deficit. MRI was reviewed and showed no change in the configuration or size of the parasagittal falx meningioma that was treated with gamma knife in 3 fractions. Recommendation was to follow-up in 1 year with repeat MRI. Today she states in the summer she noted her memory was declining and having hard times remembering names and familiar things. She notes she has been feeling unsteady but denies any falls. Reported a few headaches. Denies any other concerning symptoms. She presents for evaluation and plan of care. SYMPTOMS: Headaches, memory deficits and unsteadiness. PREVIOUS CONSERVATIVE TREATMENTS: None SURGICAL RISK: Smoker: Never Diabetic: No Anticoagulants / Antiplatelets: ASA 81 mg Occupation: N/A PREVIOUS NEUROSURGERY: SURGERY #1: Gamma Knife Stereotactic Radiosurgery for a meningioma on 01/15/[address] Cox. 1. Left parietal falx 1 of 3 SURGERY #2: Gamma Knife Stereotactic Radiosurgery for a meningioma on 01/29/[address] Cox. 1. Left parietal falx 2 of 3 SURGERY#3: Gamma Knife Stereotactic Radiosurgery for a meningioma on 02/12/[address] Cox. 1. 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 CERVICAL SPONDYLOSIS 02/26/2005 Diarrhea Diverticulosis of colon 01/06/2009 Esophageal reflux Hemorrhage of rectum and anus 12/02/2017 HEMORRHOIDS NOS 11/30/2008 HYPERLIPIDEMIA NEC/NOS 03/18/2005 IBS (irritable bowel syndrome) 01/26/2013 Incontinence of feces 11/30/2008 Incontinence of feces 03/09/2021 Left leg weakness 03/01/2024 Nausea vomiting and diarrhea 04/06/2024 Osteopenia Palpitations 01/13/2012 Perforation of large intestine (HCC) 12/03/2017 Primary osteoarthritis of left hip 03/01/2024 Spondylosis, 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 TIA (transient ischemic attack) 06/17/2017 [place], [place] Tick bite of neck 10/04/2024 PAST SURGICAL HISTORY Procedure Laterality Date CHOLECYSTECTOMY HX 03/2018 COLONOSCOPY FLX DX W/COLLJ SPEC WHEN PFRMD 10/20/2003 Colonoscopy COLONOSCOPY FLX DX W/COLLJ SPEC WHEN PFRMD 01/06/2009 Extensive diverticulosis/hemorrhoids COLONOSCOPY FLX DX W/COLLJ SPEC WHEN PFRMD 07/24/2012 [place] COLSC FLEXIBLE W/CONTROL BLEEDING ANY METHOD 12/02/2017 laser of cecal AVM DRAIN ABDOMINAL ABSCESS, PERCUTANEOUS 12/15/2017 perianastomotic abscess EGD 12/02/2017 ESOPHAGOGASTRODUODENOSCOPY TRANSORAL DIAGNOSTIC 07/03/2012 [place] GAMMA KNIFE 1FX TX DELIVERY 02/12/2022 x 3 on 01/15/22; 01/29/22; 02/12/22 HEMORRHOIDECTOMY INT & XTRNL 2/> COLUMN/HI 10/26/2009 LAMINECTOMY W/RMVL ABNORMAL FACETS LUMBAR 07/08/2011 [place], [place] LAPAROSCOPY COLECTOMY PARTIAL W/ANASTOMOSIS 02/02/2009 LAPAROSCOPY COLECTOMY PARTIAL W/ANASTOMOSIS Right 12/03/2017 LAPS MOBLJ SPLENIC FLXR PFRMD W/PRTL COLECTOMY 02/02/2009 PAST SURGICAL HISTORY OF 1964 ovarian cyst removed PAST SURGICAL HISTORY OF 2001 BREAST BIOPSY--BENIGN PAST SURGICAL HISTORY OF 03/28/2018 Gallbladder removed SIGMOIDOSCOPY FLX CONTROL BLEEDING 03/22/2009 Granulation tissue at anastomosis SIGMOIDOSCOPY FLX W/BIOPSY SINGLE/MULTIPLE 02/28/2011 TOTAL ABDOMINAL HYSTERECT W/WO RMVL TUBE OVARY 02/1990 Hysterectomy, TERI, BSO FAMILY HISTORY Problem Relation Age of Onset Breast Cancer Mother dec. age 88 Blood Disease Father PE, post MVA, dec. 53yo Breast Cancer Sister Myositis Sister Inclusion Body Myositis None Sister Alzheimer's Disease Sister other (multiple myeloma) Brother ALLERGIES Allergen Reactions Bactrim [Sulfametho* GI Upset nausea Clindamycin Hcl GI Upset Flagyl [Metronidazo* GI Upset Gadolinium-Containi* Hives Gadolinium/Gadavist Trimethoprim Vomiting Levofloxacin GI Upset Current Outpatient Medications Medication Sig Dispense Refill alendronate (FOSAMAX) 70 mg tablet Take 1 tablet by mouth one time a week. Take with a full glass of water, on an empty stomach; do NOT lie down for 30minutes. 12 tablet 3 iv contrast (will be provided with radiology test) MRI Brain Inject, intravenously, once for 1 dose.No IV access, insert saline lock prior to beginning of sedation, infusion, injection of imaging exam.Discontinue saline lock post exam. If Pt. has a central line or IVAD, may access for administration according to line specific nursing protocol.Once exam is complete flush line and de-access according to line specific nursing protocol in the MR contrast administration guidelines link 1 each 0 lactobacillus rhamnosus (CULTURELLE) 10 billion cell capsule Take 1 capsule by mouth once daily. atorvastatin (LIPITOR) 40 mg tablet TAKE 1 TABLET EVERY DAY AT BEDTIME FOR CHOLESTEROL 90 tablet 3 meclizine (ANTIVERT) 12.5 mg tab Take 2 tablets by mouth three times a day as needed. 15 tablet 0 naproxen (NAPROSYN) 500 mg tablet Take 1 tablet by mouth two times a day with meals. 30 tablet 0 fluticasone (FLONASE) 50 mcg/actuation nasal spray Use 2 Sprays in each nostril once daily. Rinse mouth after use. 1 Each 0 Cholecalciferol, Vitamin D3, 25 mcg (1,000 unit) cap Take 1 capsule by mouth once daily. VITAMIN E 200 UNIT CAP Take 200 Units by mouth once daily. 0 Perry-3 Fatty Acids (FISH OIL) ORAL Cap Take one(1) capsule daily. 0 MULTIVITAMIN TAB Take one(1) tablet daily. 0 CALCIUM + D 600 MG-200 UNIT TAB Take one(1) tablet daily. 0 ASPIRIN 81 MG TAB Take 81 mg by mouth once daily. 0 No current facility-administered medications for this visit. REVIEW OF SYSTEMS: Review of Systems Constitutional: Negative for chills, fatigue and fever. HENT: Negative for congestion and sore throat. Eyes: Negative for discharge, itching and visual disturbance. Respiratory: Negative for cough and shortness of breath. Cardiovascular: Negative for chest pain and palpitations. Gastrointestinal: Negative for constipation, diarrhea, nausea and vomiting. Endocrine: Negative for cold intolerance and heat intolerance. Genitourinary: Negative for difficulty urinating, frequency and urgency. Musculoskeletal: Positive for gait problem. Negative for back pain, neck pain and neck stiffness. Skin: Negative for rash and wound. Allergic/Immunologic: Negative for environmental allergies and food allergies. Neurological: Positive for headaches. Negative for dizziness, weakness, light-headedness and numbness. Memory deficits Hematological: Does not bruise/bleed easily. Psychiatric/Behavioral: Negative for agitation. The patient is not nervous/anxious. OBJECTIVE: BP 116/75 Pulse 69 Resp 16 Ht 5' 3 (1.60m) Wt 136 lb 11 oz (62.0kg) SpO2 98% BMI 24.22 kg/(m^2). PHYSICAL EXAM: Mental State : Alert. Attention span and concentration normal for patient's age. Speech normal, fluent. No receptive or expressive speech deficit. Recent and remote memory normal. Orientation : Oriented to person, place and time. Higher Cortical Function : Intact speech and language. Comprehension normal. Fund of knowledge intact for pt level of education. Cranial Nerves : II: No visual field cut, no blurring. Makes and sustains eye contact. III, IV, : No double vision or lid drooping. Pupils equal and reactive to light. Extraocular muscles intact. No nystagmus. V: Normal sensation on the face, normal jaw movements. VII: No paresis on either side. VIII: No gross hearing deficit IX: Good and equal shoulder shrugs. XII: Tongue midline, no fasciculations. Sensory: SILT. Normal Sensation in bilateral upper and bilateral lower extremities to touch and noxious stimuli. Motor: Normal muscle tone and bulk. No spasticity, tremor or uncontrollable movements. Strength: Upper Extremities : R L Deltoid 5/5 5/5 Biceps 5/5 5/5 Triceps 5/5 5/5 Wrist Ext 5/5 5/5 Wrist Flx 5/5 5/5 Hand Int 5/5 5/5 Lower Extremities : Hip Flexors 5/5 5/5 Hip Extensors 5/5 5/5 Hip Abductors 5/5 5/5 Straight leg Neg Neg Ankle dorsiflex 5/5 5/5 Ankle Plantar 5/5 5/5 Cerebellar Function : Normal finger to nose. Normal rapid alternating movements. No ataxia. . Gait and Station: Normal gait. No assistive device usage. IMAGING: No new imaging Feb 12 2022 Aug 27 2024 ASSESSMENT/PLAN: 1. Benign meningioma of brain (HCC) - ICD9: 225.2, ICD10: D32.0 (primary diagnosis) As of August 2024 the benign meningioma this patient has in the parasagittal falx region on the left side had not changed in size. It was status post gamma knife treatment in 3 fractions 2021. Patient was supposed to see me in August 2025 but because of some difficulties with her memory she wanted to see me sooner and asked me questions about her memory. 2. Memory disturbance - ICD9: 780.93, ICD10: R41.3 Patient recently has been complaining about forgetting names and she has a sister who was diagnosed with dementia and she is concerned that because of her memory difficulties she may have dementia. I discussed with her the fact that I do not think the meningioma she has is a cause of her difficulty with memory. She has no evidence of hydrocephalus or history of incontinence or gait difficulty. I told her that if she is concerned about her memory and the fact that she had a sister who had dementia then we can make a referral for her to see neurology for evaluation with regard to her memory difficulty. An appointment will be made for her with the neurology service. I will continue to follow her for the treated meningioma in August 2025. - CONSULT TO NEUROLOGY Bernabe Cox MD FOLLOW UP: No follow-ups on file. Please Note: This note has been partially generated using [employer], a speech recognition software program, and may contain errors including punctuation, grammar, spelling, gender, and inappropriate words or phrases that pertain to the system. Recording using Wiki[employer]PR software for draft documentation of the visit was discussed with the patient/authorized product representative; all questions welcomed and answered. Patient/authorized product representative agreed to proceed documented in this encounter [facility] 11-30-2024 Note HNO ID: [id number] Author: BERNABE COX MD Service: ? Author Type: Physician Type: Progress Notes Filed: 11/30/2024 11:10 Note Text: NEUROSURGERY FOLLOW UP OFFICE NOTE Dr. Bernabe Cox MD, FACS Date of visit: November 30, 2024 Patient Name: Ms.Marjorie Arielle Avalos Date of : 1945 Current Age: [age] year old Sex: female MRN/E# [id number] Last Office Visit: 08/31/2024 CHIEF COMPLAINT: Patient presents with: Established Patient Memory loss, unsteadiness. SUBJECTIVE: The patient presents as a follow-up without new imaging for evaluation. This is an 79-year-old female with a PMHx of intracranial meningioma diagnosed in September 2017 after experiencing episodes of visual changes. Given the symptoms MRI was obtained and demonstrated a left parasagittal meningioma for which no surgical intervention was indicated. She followed with Dr. Lindsey until 2021 imaging demonstrated an increase in size. She was referred for possible gamma knife treatment. She was seen for consult in August 2021 and reported intermittent episodes of right sided head pain but denied any significant headache. MRI was reviewed and compared to prior imaging. This showed a 6-7 mm increase from 2017 to 2021. Treatment options were discussed including open craniotomy with resection or gamma knife. Her case was discussed with the tumor board and radiation oncology who proposed that gamma knife could be provided in divided fractions which she agreed to. This was completed as noted below in 3 sessions. Since then she has been seen routinely for evaluation with imaging and has overall done well. She was last seen in the office in August 2024 and reported that she was overall doing well. She denied any new or concerning issues such as headache, visual changes, speech deficits, seizure activity, motor or sensory deficits. Neurologically she was intact on exam without focal deficit. MRI was reviewed and showed no change in the configuration or size of the parasagittal falx meningioma that was treated with gamma knife in 3 fractions. Recommendation was to follow-up in 1 year with repeat MRI. Today she states in the summer she noted her memory was declining and having hard times remembering names and familiar things. She notes she has been feeling unsteady but denies any falls. Reported a few headaches. Denies any other concerning symptoms. She presents for evaluation and plan of care. SYMPTOMS: Headaches, memory deficits and unsteadiness. PREVIOUS CONSERVATIVE TREATMENTS: None SURGICAL RISK: Smoker: Never Diabetic: No Anticoagulants / Antiplatelets: ASA 81 mg Occupation: N/A PREVIOUS NEUROSURGERY: SURGERY #1: Gamma Knife Stereotactic Radiosurgery for a meningioma on 01/15/[address] Cox. 1. Left parietal falx 1 of 3 SURGERY #2: Gamma Knife Stereotactic Radiosurgery for a meningioma on 01/29/[address] Cox. 1. Left parietal falx 2 of 3 SURGERY#3: Gamma Knife Stereotactic Radiosurgery for a meningioma on 02/12/[address] Cox. 1. 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 CERVICAL SPONDYLOSIS 02/26/2005 Diarrhea Diverticulosis of colon 01/06/2009 Esophageal reflux Hemorrhage of rectum and anus 12/02/2017 HEMORRHOIDS NOS 11/30/2008 HYPERLIPIDEMIA NEC/NOS 03/18/2005 IBS (irritable bowel syndrome) 01/26/2013 Incontinence of feces 11/30/2008 Incontinence of feces 03/09/2021 Left leg weakness 03/01/2024 Nausea vomiting and diarrhea 04/06/2024 Osteopenia Palpitations 01/13/2012 Perforation of large intestine (HCC) 12/03/2017 Primary osteoarthritis of left hip 03/01/2024 Spondylosis, 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 TIA (transient ischemic attack) 06/17/2017 [place], [place] Tick bite of neck 10/04/2024 PAST SURGICAL HISTORY Procedure Laterality Date CHOLECYSTECTOMY HX 03/2018 COLONOSCOPY FLX DX W/COLLJ SPEC WHEN PFRMD 10/20/2003 Colonoscopy COLONOSCOPY FLX DX W/COLLJ SPEC WHEN PFRMD 01/06/2009 Extensive diverticulosis/hemorrhoids COLONOSCOPY FLX DX W/COLLJ SPEC WHEN PFRMD 07/24/2012 Colonoscopy in [place] COLSC FLEXIBLE W/CONTROL BLEEDING ANY METHOD 12/02/2017 laser of cecal AVM DRAIN ABDOMINAL ABSCESS, PERCUTANEOUS 12/15/2017 perianastomotic abscess EGD 12/02/2017 ESOPHAGOGASTRODUODENOSCOPY TRANSORAL DIAGNOSTIC 07/03/2012 [place] GAMMA KNIFE 1FX TX DELIVERY 02/12/2022 x 3 on 01/15/22; 01/29/22; 02/12/22 HEMORRHOIDECTOMY INT AND XTRNL 2/> COLUMN/HI 10/26/2009 LAMINECTOMY W/RMVL ABNORMAL FACETS LUMBAR 07/08/2011 [place], [place] LAPAROSCOPY COLECTOMY PARTIAL W/A (more content not included)... [facility] 11-28-2024 Note Addended by: LESLIE TRAN on: 11/28/2024 12:11 PM Modules accepted: Orders [facility] 11-28-2024 Miscellaneous Notes Addended by: LESLIE TRAN on: 11/28/2024 12:11 PM Modules accepted: Orders documented in this encounter [facility] 11-28-2024 Note HNO ID: [id number] Author: LESLIE TRAN APRN.CNP Service: ? Author Type: Nurse Practitioner Type: Progress Notes Filed: 11/28/2024 10:52 Note Text: URGENT CARE HÉCTOR Avalos is a 79 year old female. The patient is an 79-year-old female with fatigue, diarrhea, and dizziness. Fatigue: - Onset several days to a week ago. - Attributes fatigue to increased activity due to visiting friends from [place]. - Describes feeling extra tired and just tired and weary and just not feeling real good. - Denies fever. Diarrhea: - Two episodes of sudden, severe diarrhea in the past week, with no warning. - First episode occurred 7-[address] [facility]; second episode occurred today. - Denies hematochezia. - Reports a history of needing to have a bowel movement daily to avoid complications. - Uses milk of magnesia or prune juice if no bowel movement occurs by evening. - Has tried Miralax and probiotics in the past with inconsistent results. - Recent dietary intake included a small ice cream drumstick last night; previously took a pill for ice cream consumption but discontinued it two years ago without issues. - Seen by a GI doctor in [place] about a year ago. Dizziness: - Chronic dizziness; sales service route manager discontinued a medication (unknown name) a week ago due to this symptom. - Reports slight improvement in dizziness since discontinuing the medication. - Describes feeling unsteady when walking in the yard, needing to keep hands out to catch herself. - Denies feeling acutely dehydrated or at risk of syncope. Meningioma: - Followed by Dr. Adkins for meningioma; undergoes annual scans to monitor for changes. Constitutional: (+) fatigue, (+) malaise, Gastrointestinal: (+) diarrhea, (+) fecal incontinence, (+) abdominal discomfort, (+) nausea, (+) constipation, (-) hematochezia, (-) vomiting Genitourinary: (-) suprapubic pressure Musculoskeletal: (+) shoulder pain, (+) hip pain Neurological: (+) dizziness, (+) lightheadedness, (-) syncope Objective BP 126/72 Pulse 73 Temp 36.6 ?C (97.8 ?F) (Tympanic) Resp 16 Wt 61.7 kg (136 lb 0.4 oz) SpO2 98% BMI 24.10 kg/m? PAST MEDICAL HISTORY[1] PAST SURGICAL HISTORY Procedure Laterality Date CHOLECYSTECTOMY HX 03/2018 COLONOSCOPY FLX DX W/COLLJ SPEC WHEN PFRMD 10/20/2003 Colonoscopy COLONOSCOPY FLX DX W/COLLJ SPEC WHEN PFRMD 01/06/2009 Extensive diverticulosis/hemorrhoids COLONOSCOPY FLX DX W/COLLJ SPEC WHEN PFRMD 07/24/2012 [place] COLSC FLEXIBLE W/CONTROL BLEEDING ANY METHOD 12/02/2017 laser of cecal AVM DRAIN ABDOMINAL ABSCESS, PERCUTANEOUS 12/15/2017 perianastomotic abscess EGD 12/02/2017 ESOPHAGOGASTRODUODENOSCOPY TRANSORAL DIAGNOSTIC 07/03/2012 [place] GAMMA KNIFE 1FX TX DELIVERY 02/12/2022 x 3 on 01/15/22; 01/29/22; 02/12/22 HEMORRHOIDECTOMY INT AND XTRNL 2/> COLUMN/HI 10/26/2009 LAMINECTOMY W/RMVL ABNORMAL FACETS LUMBAR 07/08/2011 [place], [place] LAPAROSCOPY COLECTOMY PARTIAL W/ANASTOMOSIS 02/02/2009 LAPAROSCOPY COLECTOMY PARTIAL W/ANASTOMOSIS Right 12/03/2017 LAPS MOBLJ SPLENIC FLXR PFRMD W/PRTL COLECTOMY 02/02/2009 PAST SURGICAL HISTORY OF 1964 ovarian cyst removed PAST SURGICAL HISTORY OF 2001 BREAST BIOPSY--BENIGN PAST SURGICAL HISTORY OF 03/28/2018 Gallbladder removed SIGMOIDOSCOPY FLX CONTROL BLEEDING 03/22/2009 Granulation tissue at anastomosis SIGMOIDOSCOPY FLX W/BIOPSY SINGLE/MULTIPLE 02/28/2011 TOTAL ABDOMINAL HYSTERECT W/WO RMVL TUBE OVARY 02/1990 Hysterectomy, TERI, BSO ALLERGIES Bactrim [Sulfamethoxazole-Trimethoprim], Clindamycin Hcl, Flagyl [Metronidazole Hcl], Gadolinium-Containing Contrast Media, Trimethoprim, and Levofloxacin MEDICATIONS alendronate (FOSAMAX) 70 mg tablet Take 1 tablet by mouth one time a week. Take with a full glass of water, on an empty stomach; do NOT lie down for 30minutes. lactobacillus rhamnosus (CULTURELLE) 10 billion cell capsule Take 1 capsule by mouth once daily. atorvastatin (LIPITOR) 40 mg tablet TAKE 1 TABLET EVERY DAY AT BEDTIME FOR CHOLESTEROL meclizine (ANTIVERT) 12.5 mg tab Take 2 tablets by mouth three times a day as needed. naproxen (NAPROSYN) 500 mg tablet Take 1 tablet by mouth two times a day with meals. fluticasone (FLONASE) 50 mcg/actuation nasal spray Use 2 Sprays in each nostril once daily. Rinse mouth after use. Cholecalciferol, Vitamin D3, 25 mcg (1,000 unit) cap Take 1 capsule by mouth once daily. VITAMIN E 200 UNIT CAP Take 200 Units by mouth once daily. Perry-3 Fatty Acids (FISH OIL) ORAL Cap Take one(1) capsule daily. MULTIVITAMIN TAB Take one(1) tablet daily. CALCIUM + D 600 MG-200 UNIT TAB Take one(1) tablet daily. ASPIRIN 81 MG TAB Take 81 mg by mouth once daily. clobetasol (TEMOVATE) 0.05 % ointment Apply 1 application to affected area two times a day. (Patient not taking: Reported on 11/28/2024) iv contrast (will be provided with radiology test) MRI Brain Inject (more content not included)... [facility] 11-28-2024 History of Present illness Narrative [facility] Subjective Fannie S Bailey is a 79 year old female. The patient is an 79-year-old female with fatigue, diarrhea, and dizziness. Fatigue: - Onset several days to a week ago. - Attributes fatigue to increased activity due to visiting friends from [place]. - Describes feeling extra tired and just tired and weary and just not feeling real good. - Denies fever. Diarrhea: - Two episodes of sudden, severe diarrhea in the past week, with no warning. - First episode occurred 7-[address] [facility]; second episode occurred today. - Denies hematochezia. - Reports a history of needing to have a bowel movement daily to avoid complications. - Uses milk of magnesia or prune juice if no bowel movement occurs by evening. - Has tried Miralax and probiotics in the past with inconsistent results. - Recent dietary intake included a small ice cream drumstick last night; previously took a pill for ice cream consumption but discontinued it two years ago without issues. - Seen by a GI doctor in [place] about a year ago. Dizziness: - Chronic dizziness; sales service route manager discontinued a medication (unknown name) a week ago due to this symptom. - Reports slight improvement in dizziness since discontinuing the medication. - Describes feeling unsteady when walking in the yard, needing to keep hands out to catch herself. - Denies feeling acutely dehydrated or at risk of syncope. Meningioma: - Followed by Dr. Adkins for meningioma; undergoes annual scans to monitor for changes. Constitutional: (+) fatigue, (+) malaise, Gastrointestinal: (+) diarrhea, (+) fecal incontinence, (+) abdominal discomfort, (+) nausea, (+) constipation, (-) hematochezia, (-) vomiting Genitourinary: (-) suprapubic pressure Musculoskeletal: (+) shoulder pain, (+) hip pain Neurological: (+) dizziness, (+) lightheadedness, (-) syncope Objective BP 126/72 Pulse 73 Temp 36.6 C (97.8 F) (Tympanic) Resp 16 Wt 61.7 kg (136 lb 0.4 oz) SpO2 98% BMI 24.10 kg/m PAST MEDICAL HISTORY[1] PAST SURGICAL HISTORY Procedure Laterality Date CHOLECYSTECTOMY HX 03/2018 COLONOSCOPY FLX DX W/COLLJ SPEC WHEN PFRMD 10/20/2003 Colonoscopy COLONOSCOPY FLX DX W/COLLJ SPEC WHEN PFRMD 01/06/2009 Extensive diverticulosis/hemorrhoids COLONOSCOPY FLX DX W/COLLJ SPEC WHEN PFRMD 07/24/2012 [place] COLSC FLEXIBLE W/CONTROL BLEEDING ANY METHOD 12/02/2017 laser of cecal AVM DRAIN ABDOMINAL ABSCESS, PERCUTANEOUS 12/15/2017 perianastomotic abscess EGD 12/02/2017 ESOPHAGOGASTRODUODENOSCOPY TRANSORAL DIAGNOSTIC 07/03/2012 [place] GAMMA KNIFE 1FX TX DELIVERY 02/12/2022 x 3 on 01/15/22; 01/29/22; 02/12/22 HEMORRHOIDECTOMY INT & XTRNL 2/> COLUMN/HI 10/26/2009 LAMINECTOMY W/RMVL ABNORMAL FACETS LUMBAR 07/08/2011 [place], [place] LAPAROSCOPY COLECTOMY PARTIAL W/ANASTOMOSIS 02/02/2009 LAPAROSCOPY COLECTOMY PARTIAL W/ANASTOMOSIS Right 12/03/2017 LAPS MOBLJ SPLENIC FLXR PFRMD W/PRTL COLECTOMY 02/02/2009 PAST SURGICAL HISTORY OF 1964 ovarian cyst removed PAST SURGICAL HISTORY OF 2001 BREAST BIOPSY--BENIGN PAST SURGICAL HISTORY OF 03/28/2018 Gallbladder removed SIGMOIDOSCOPY FLX CONTROL BLEEDING 03/22/2009 Granulation tissue at anastomosis SIGMOIDOSCOPY FLX W/BIOPSY SINGLE/MULTIPLE 02/28/2011 TOTAL ABDOMINAL HYSTERECT W/WO RMVL TUBE OVARY 02/1990 Hysterectomy, TERI, BSO ALLERGIES Bactrim [Sulfamethoxazole-Trimethoprim], Clindamycin Hcl, Flagyl [Metronidazole Hcl], Gadolinium-Containing Contrast Media, Trimethoprim, and Levofloxacin MEDICATIONS alendronate (FOSAMAX) 70 mg tablet Take 1 tablet by mouth one time a week. Take with a full glass of water, on an empty stomach; do NOT lie down for 30minutes. lactobacillus rhamnosus (CULTURELLE) 10 billion cell capsule Take 1 capsule by mouth once daily. atorvastatin (LIPITOR) 40 mg tablet TAKE 1 TABLET EVERY DAY AT BEDTIME FOR CHOLESTEROL meclizine (ANTIVERT) 12.5 mg tab Take 2 tablets by mouth three times a day as needed. naproxen (NAPROSYN) 500 mg tablet Take 1 tablet by mouth two times a day with meals. fluticasone (FLONASE) 50 mcg/actuation nasal spray Use 2 Sprays in each nostril once daily. Rinse mouth after use. Cholecalciferol, Vitamin D3, 25 mcg (1,000 unit) cap Take 1 capsule by mouth once daily. VITAMIN E 200 UNIT CAP Take 200 Units by mouth once daily. Perry-3 Fatty Acids (FISH OIL) ORAL Cap Take one(1) capsule daily. MULTIVITAMIN TAB Take one(1) tablet daily. CALCIUM + D 600 MG-200 UNIT TAB Take one(1) tablet daily. ASPIRIN 81 MG TAB Take 81 mg by mouth once daily. clobetasol (TEMOVATE) 0.05 % ointment Apply 1 application to affected area two times a day. (Patient not taking: Reported on 11/28/2024) iv contrast (will be provided with radiology test) MRI Brain Inject, intravenously, once for 1 dose.No IV access, insert saline lock prior to beginning of sedation, infusion, injection of imaging exam.Discontinue saline lock post exam. If Pt. has a central line or IVAD, may access for administration according to line specific nursing protocol.Once exam is complete flush line and de-access according to line specific nursing protocol in the MR contrast administration guidelines link carvedilol (COREG) 3.125 mg tablet Take 3.125 mg by mouth two times a day with meals. (Patient not taking: Reported on 11/28/2024) FAMILY HISTORY[2] SOCIAL HISTORY[3] Physical Exam Constitutional: General: She is not in acute distress. Appearance: Normal appearance. She is normal weight. She is not ill-appearing or toxic-appearing. HENT: Head: Normocephalic and atraumatic. Right Ear: Tympanic membrane, ear canal and external ear normal. Left Ear: Tympanic membrane, ear canal and external ear normal. Nose: No congestion or rhinorrhea. Mouth/Throat: Mouth: Mucous membranes are moist. Eyes: Extraocular Movements: Extraocular movements intact. Conjunctiva/sclera: Conjunctivae normal. Pupils: Pupils are equal, round, and reactive to light. Cardiovascular: Rate and Rhythm: Normal rate and regular rhythm. Pulses: Normal pulses. Heart sounds: Normal heart sounds. Pulmonary: Effort: Pulmonary effort is normal. Breath sounds: Normal breath sounds. Abdominal: General: Abdomen is flat. Bowel sounds are normal. There is no distension. Palpations: Abdomen is soft. There is no mass. Tenderness: There is no abdominal tenderness. There is no right CVA tenderness, left CVA tenderness, guarding or rebound. Hernia: No hernia is present. Musculoskeletal: General: No swelling, tenderness, deformity or signs of injury. Normal range of motion. Cervical back: Normal range of motion and neck supple. No rigidity or tenderness. Right lower leg: No edema. Left lower leg: No edema. Lymphadenopathy: Cervical: No cervical adenopathy. Neurological: General: No focal deficit present. Mental Status: She is alert and oriented to person, place, and time. Mental status is at baseline. Cranial Nerves: No cranial nerve deficit. Sensory: No sensory deficit. Motor: No weakness. Coordination: Coordination normal. Gait: Gait normal. Deep Tendon Reflexes: Reflexes normal. Psychiatric: Mood and Affect: Mood normal. Behavior: Behavior normal. { 1. Diarrhea, unspecified type (R19.7) 2. Irritable bowel syndrome without diarrhea (K58.9) - Chronic GI symptoms with recent episodes of acute diarrhea; no evidence of acute dehydration or infection on exam. - Discussed that symptoms are more consistent with chronic irritable bowel syndrome rather than an acute process such as bowel obstruction or infection. - Advised patient to follow up with GI for further evaluation and management. - GI referral placed; will coordinate with lead front end developer to schedule appointment. and Recording using ambient [employer] software for draft documentation of the visit was discussed with the patient/authorized product representative; all questions welcomed and answered. Patient/authorized product representative agreed to proceed Disposition The patient was discharged. Patient well appearing nontoxic in no acute distress, 79-year-old female with significant medical history. She recently saw cardiology lab work within normal limits, they did readjust her meds and it has been helping with her dizziness and giddiness. No neurological concerns neuroexam is within normal limits no acute headache and no changes in her vision. She has appoint with neurosurgery om 11/30 where they have been monitoring an hemangioma. No syncopal episodes or feeling like she is in a pass out no concerns of acute dehydration patient is afebrile tolerate fluids but has had increased in diarrhea no urinary symptoms or pelvic pain. She does have a chronic history of irritable bowel does see a GI specialist but has not seen him in a year. Denies any acute abdominal pain, blood in her stool. No concerns for acute surgical abdomen. Patient to follow up with GI specialist, ER if worsening. Patient verbalized understanding and in agreement with plan. [1] Past Medical History: 11/26/2021: Acute left-sided thoracic back pain 11/30/2008: ALLERGIC RHINITIS NOS 01/15/2007: ANXIETY STATE NOS 10/28/2017: Benign meningioma of brain (HCC) 11/30/2008: Benign neoplasm of colon 01/03/2016: Carotid disease, bilateral 12/02/2017: Cecal angiodysplasia 02/26/2005: CERVICAL SPONDYLOSIS No date: Diarrhea 01/06/2009: Diverticulosis of colon No date: Esophageal reflux 12/02/2017: Hemorrhage of rectum and anus 11/30/2008: HEMORRHOIDS NOS 03/18/2005: HYPERLIPIDEMIA NEC/NOS 01/26/2013: IBS (irritable bowel syndrome) 11/30/2008: Incontinence of feces 03/09/2021: Incontinence of feces 03/01/2024: Left leg weakness 04/06/2024: Nausea vomiting and diarrhea No date: Osteopenia 01/13/2012: Palpitations 12/03/2017: Perforation of large intestine (HCC) 03/01/2024: Primary osteoarthritis of left hip 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, thoracic 06/17/2017: TIA (transient ischemic attack) Comment: CHIDI [place] 10/04/2024: Tick bite of neck [2] Review of patient's family history indicates: Problem: Breast Cancer Relation: Mother Age of Onset: (Not Specified) Comment: mar. age 88 Problem: Blood Disease Relation: Father Age of Onset: (Not Specified) Comment: PE, post MVA, mar. 53yo Problem: Breast Cancer Relation: Sister Age of Onset: (Not Specified) Problem: Myositis Relation: Sister Age of Onset: (Not Specified) Comment: Inclusion Body Myositis Problem: None Relation: Sister Age of Onset: (Not Specified) Problem: Alzheimer's Disease Relation: Sister Age of Onset: (Not Specified) Problem: other (multiple myeloma) Relation: Brother Age of Onset: (Not Specified) [3] Social History Tobacco Use Smoking status: Never Smokeless tobacco: Never Vaping Use Vaping status: Never Used Substance Use Topics Alcohol use: No Drug use: No documented in this encounter [facility] 11-23-2024 Evaluation note Diagnosis Onset Date Resolution Aortic regurgitation chronic Augu st 2024 9:01am Carotid artery stenosis chronic A ugust 2024 9:01am Hyperlipidemia chronic November 9:01am PAC (premature atrial contraction) chronic November 23, 2024 9:01am [facility] Work Phone: [phone]) 503-929306-16-2025 Telephone encounter Note* Telephone Encounter - Arely Tavarez RN - 10/04/2024 1:01 PM EDT Pt called and is notified of providers message and instructions. Pt voices understanding. Arely Tavarez RN [facility]06-16-2025 Miscellaneous Notes* Telephone Encounter - Arely Tavarez RN - 10/04/2024 1:01 PM EDT Pt called and is notified of providers message and instructions. Pt voices understanding. Arely Tavarez RN * Telephone Encounter - Catina Reddy APRN.CNP - 10/04/2024 12:21 PM EDT Prophylaxis recommended, one time dose of Doxycycline sent to Nell Reddy APRN.JUAN * Telephone Encounter - Farida Zhang RN - 10/04/2024 10:01 AM EDT Triage Protocol Advises: Home Care. Please call patient with PCP's advise. Pt would like to know if prophylactic antibiotic is necessary, or other care. [phone] Reason for Disposition Unknown type of tick bite with no complications Answer Assessment - Initial Assessment Questions Pt reports she was at [employer] [facility] today and provider removed tick off her left neck area. See [employer] DES[employer] PROF[employer] [facility] note for details. FASHION DESIGN PROFESSOR provider has saved tick at her office if PCP needs it. Pt was advised by FASHION DESIGN PROFESSOR provider to update her PCP of tick bite. 1. ATTACHED: no, was removed by FASHION DESIGN PROFESSOR provider today during OV 2. ONSET - TICK STILL ATTACHED: not attached 3. ONSET - TICK NOT STILL ATTACHED: Pt states the tick may have been on her for about 4 days 4. LOCATION: left neck area 5. TYPE of TICK: Pt not certain 6. SIZE of TICK:believes about the size of a poppy seed 7. ENGORGED: unsure 8. OTHER SYMPTOMS:Pt denies fever, rash, headache, weakness, redness or streaking at bite area, or red ring around bite. Pt states she feels well. Protocols used: Tick [id number] documented in this encounterOhio[facility] Telephone encounter Note * Telephone Encounter - Catina Reddy APRN.CNP - 10/04/2024 12:21 PM EDT Prophylaxis recommended, one time dose of Doxycycline sent to Nell Reddy APRN.JUAN [facility]06-16-2025 Telephone encounter Note* Telephone Encounter - Farida Zhang RN - 10/04/2024 10:01 AM EDT Triage Protocol Advises: Home Care. Please call patient with PCP's advise. Pt would like to know if prophylactic antibiotic is necessary, or other care. [phone] Reason for Disposition Unknown type of tick bite with no complications Answer Assessment - Initial Assessment Questions Pt reports she was at [employer] [facility] today and provider removed tick off her left neck area. See [employer] DESIGN PROF[employer]OR OV note for details. FASHION DESIGN PROFESSOR provider has saved tick at her office if PCP needs it. Pt was advised by FASHION DESIGN PROFESSOR provider to update her PCP of tick bite. 1. ATTACHED: no, was removed by FASHION DESIGN PROFESSOR provider today during OV 2. ONSET - TICK STILL ATTACHED: not attached 3. ONSET - TICK NOT STILL ATTACHED: Pt states the tick may have been on her for about 4 days 4. LOCATION: left neck area 5. TYPE of TICK: Pt not certain 6. SIZE of TICK:believes about the size of a poppy seed 7. ENGORGED: unsure 8. OTHER SYMPTOMS:Pt denies fever, rash, headache, weakness, redness or streaking at bite area, or red ring around bite. Pt states she feels well. Protocols used: Tick [id number] [facility]06-16-2025 Instructions* Patient Instructions* Jeannine Knight APRN.CNP - 10/04/2024 9:38 AM EDT Use clobetasol cream nightly for 4 weeks. Apply a thin layer at bedtime. Then every other day for 4 weeks. Then twice a week for 4 weeks. Then PRN hydrocortisone. documented in this encounterOhio[facility] History of Present illness Narrative* Jeannine Knight APRN.CNP - 10/04/2024 9:15 AM EDT Regional Climate Change Analyst offered: Patient declines. Fannie Avalos is a 79 year old female who presents for problem visit of vaginal itching. HPI: Fannie has had vaginal itching that started 7-9 months ago, which is aggravated by bathing. She does wear thin pads due to occasional liquid stools. She was prescribed a single dose of Diflucan, as well as Nystatin-Triamcinolone. Symptoms have somewhat improved, but not totally resolved. Hasstopped taking soapy baths. She is out of the ointment and no longer using. She also notes a new suspected mole to her neck that she would like evaluated. 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 Age at Menarche: Age at First : Age at Menopause: Sewage Disposal Engineer History Comments: Sexual Activity: Not Asked; No partner data on record Contraception: No contraception data on record 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 CERVICAL SPONDYLOSIS 02/26/2005 Diarrhea Diverticulosis of colon 01/06/2009 Esophageal reflux Hemorrhage of rectum and anus 12/02/2017 HEMORRHOIDS NOS 11/30/2008 HYPERLIPIDEMIA NEC/NOS 03/18/2005 IBS (irritable bowel syndrome) 01/26/2013 Incontinence of feces 11/30/2008 Incontinence of feces 03/09/2021 Left leg weakness 03/01/2024 Nausea vomiting and diarrhea 04/06/2024 Osteopenia Palpitations 01/13/2012 Perforation of large intestine (HCC) 12/03/2017 Primary osteoarthritis of left hip 03/01/2024 Spondylosis, 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 TIA (transient ischemic attack) 06/17/2017 [place], [place] PAST SURGICAL HISTORY Procedure Laterality Date CHOLECYSTECTOMY HX 03/2018 COLONOSCOPY FLX DX W/COLLJ SPEC WHEN PFRMD 10/20/2003 Colonoscopy COLONOSCOPY FLX DX W/COLLJ SPEC WHEN PFRMD 01/06/2009 Extensive diverticulosis/hemorrhoids COLONOSCOPY FLX DX W/COLLJ SPEC WHEN PFRMD 07/24/2012 [place] COL[place] FLEXIBLE W/CONTROL BLEEDING ANY METHOD 12/02/2017 laser of cecal AVM DRAIN ABDOMINAL ABSCESS, PERCUTANEOUS 12/15/2017 perianastomotic abscess EGD 12/02/2017 ESOPHAGOGASTRODUODENOSCOPY TRANSORAL DIAGNOSTIC 07/03/2012 [place] GAMMA KNIFE 1FX TX DELIVERY 02/12/2022 x 3 on 01/15/22; 01/29/22; 02/12/22 HEMORRHOIDECTOMY INT & XTRNL 2/> COLUMN/HI 10/26/2009 LAMINECTOMY W/RMVL ABNORMAL FACETS LUMBAR 07/08/2011 [place], [place] LAPAROSCOPY COLECTOMY PARTIAL W/ANASTOMOSIS 02/02/2009 LAPAROSCOPY COLECTOMY PARTIAL W/ANASTOMOSIS Right 12/03/2017 LAPS MOBLJ SPLENIC FLXR PFRMD W/PRTL COLECTOMY 02/02/2009 PAST SURGICAL HISTORY OF 1964 ovarian cyst removed PAST SURGICAL HISTORY OF 2001 BREAST BIOPSY--BENIGN PAST SURGICAL HISTORY OF 03/28/2018 Gallbladder removed SIGMOIDOSCOPY FLX CONTROL BLEEDING 03/22/2009 Granulation tissue at anastomosis SIGMOIDOSCOPY FLX W/BIOPSY SINGLE/MULTIPLE 02/28/2011 TOTAL ABDOMINAL HYSTERECT W/WO RMVL TUBE OVARY 02/1990 Hysterectomy, TERI, BSO FAMILY HISTORY Problem Relation Age of Onset Breast Cancer Mother dec. age 88 Blood Disease Father PE, post MVA, dec. 53yo Breast Cancer Sister Myositis Sister Inclusion Body Myositis None Sister Alzheimer's Disease Sister other (multiple myeloma) Brother Social History Tobacco Use Smoking status: Never Smokeless tobacco: Never Vaping Use Vaping status: Never Used Substance Use Topics Alcohol use: No Drug use: No Current Outpatient Medications Medication Sig alendronate (FOSAMAX) 70 mg tablet Take 1 tablet by mouth one time a week. Take with a full glass of water, on an empty stomach; do NOT lie down for 30minutes. nystatin-triamcinolone (MYCOLOG) ointment Apply 1 application to affected area two times a day. Apply sparingly to perineum twice daily for irritation/infection. iv contrast (will be provided with radiology test) MRI Brain Inject, intravenously, once for 1 dose.No IV access, insert saline lock prior to beginning of sedation, infusion, injection of imaging exam.Discontinue saline lock post exam. If Pt. has a central line or IVAD, may access for administration according to line specific nursing protocol.Once exam is complete flush line and de-access according to line specific nursing protocol in the MR contrast administration guidelines link lactobacillus rhamnosus (CULTURELLE) 10 billion cell capsule Take 1 capsule by mouth once daily. atorvastatin (LIPITOR) 40 mg tablet TAKE 1 TABLET EVERY DAY AT BEDTIME FOR CHOLESTEROL meclizine (ANTIVERT) 12.5 mg tab Take 2 tablets by mouth three times a day as needed. naproxen (NAPROSYN) 500 mg tablet Take 1 tablet by mouth two times a day with meals. fluticasone (FLONASE) 50 mcg/actuation nasal spray Use 2 Sprays in each nostril once daily. Rinse mouth after use. carvedilol (COREG) 3.125 mg tablet Take 3.125 mg by mouth two times a day with meals. Cholecalciferol, Vitamin D3, 25 mcg (1,000 unit) cap Take 1 capsule by mouth once daily. VITAMIN E 200 UNIT CAP Take 200 Units by mouth once daily. Perry-3 Fatty Acids (FISH OIL) ORAL Cap Take one(1) capsule daily. MULTIVITAMIN TAB Take one(1) tablet daily. CALCIUM + D 600 MG-200 UNIT TAB Take one(1) tablet daily. ASPIRIN 81 MG TAB Take 81 mg by mouth once daily. No current facility-administered medications for this visit. 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 As applicable, any other physician, advance practice provider, medical student, or other health professional student that will be observing or involved in the sensitive examination for educational or training purposes was discussed with the Patient or Authorized Design Engineering Specialist. The Patient or Authorized Design Engineering Specialist has agreed to proceed with the sensitive examination. (Sensitive examination includes inspection and/or palpation of the breasts, pelvis, prostate and anorectal regions). EXAM: BP 122/70 Wt 135 lb (61.2kg) GENERAL: pleasant, female in no apparent distress HEENT: Normocephalic, atraumatic, mucus membranes moist, and no lesions DERMATOLOGY: Normal, without lesions, non-icteric, and non-hirsute + tick noted to left neck below hairline CHEST: Normal inspiratory effort PELVIC: external genitalia is erythematous and thickened to labia majora bilaterally, tiny excoriation to mid right labia majora, normal Bartholin's glands, urethra, Stockett's glands, no vulvar lesions, cervix surgically absent, good vaginal support, erythema and thickening of skin extends to anus NEURO: alert and oriented x3,exam grossly non-focal EXTREMITIES: normal ASSESSMENT AND PLAN: 1. Vaginal itching - ICD9: 698.1, ICD10: N89.8 (primary diagnosis) 2. Vaginal irritation - ICD9: 623.9, ICD10: N89.8 - Cultures obtained - Suspect lichen chronicus with possible irritants being soap or pads - Reviewed vulvar hygiene - Can use Vitamin A+D as barrier 3. 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 Reviewed not for ferry terminal agent use as it will thin skin. 4. Tick bite of neck, initial encounter - ICD9: 910.4, E906.4, ICD10: S10.96XA, W57.XXXA - Tick removed, intact. - No erythema, edema, or abnormal findings noted - To watch for bullseye rash - Patient to notify PCP as antibiotic may be indicated RTO in 1-2 months or sooner as needed. Jeannine Knight APRN.CNP Medical Decision Making: Problems: Moderate: 1+ chronic illnesses with change Risk: Low: Low risk from testing/treatment Moderate: Drug management Medical Decision Making Level: 4 - Moderate documented in this encounterOhiohealth [facility] NoteHNO ID: [id number] Author: JEANNINE KNIGHT APRN.JUAN Service: ? Author Type: Nurse Practitioner Type: Progress Notes Filed: 10/04/2024 09:53 Note Text: Regional Climate Change Analyst offered: Patient declines. Fannie Avalos is a 79 year old female who presents for problem visit of vaginal itching. HPI: Fannie has had vaginal itching that started 7-9 months ago, which is aggravated by bathing. She does wear thin pads due to occasional liquid stools. She was prescribed a single dose of Diflucan, as well as Nystatin-Triamcinolone. Symptoms have somewhat improved, but not totally resolved. Has stopped taking soapy baths. She is out of the ointment and no longer using. She also notes a new suspected mole to her neck that she would like evaluated. 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 Age at Menarche: Age at First : Age at Menopause: Sewage Disposal Engineer History Comments: Sexual Activity: Not Asked; No partner data on record Contraception: No contraception data on record 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 CERVICAL SPONDYLOSIS 02/26/2005 Diarrhea Diverticulosis of colon 01/06/2009 Esophageal reflux Hemorrhage of rectum and anus 12/02/2017 HEMORRHOIDS NOS 11/30/2008 HYPERLIPIDEMIA NEC/NOS 03/18/2005 IBS (irritable bowel syndrome) 01/26/2013 Incontinence of feces 11/30/2008 Incontinence of feces 03/09/2021 Left leg weakness 03/01/2024 Nausea vomiting and diarrhea 04/06/2024 Osteopenia Palpitations 01/13/2012 Perforation of large intestine (HCC) 12/03/2017 Primary osteoarthritis of left hip 03/01/2024 Spondylosis, 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 TIA (transient ischemic attack) 06/17/2017 [place], [place] PAST SURGICAL HISTORY Procedure Laterality Date CHOLECYSTECTOMY HX 03/2018 COLONOSCOPY FLX DX W/COLLJ SPEC WHEN PFRMD 10/20/2003 Colonoscopy COLONOSCOPY FLX DX W/COLLJ SPEC WHEN PFRMD 01/06/2009 Extensive diverticulosis/hemorrhoids COLONOSCOPY FLX DX W/COLLJ SPEC WHEN PFRMD 07/24/2012 [place] COLSC FLEXIBLE W/CONTROL BLEEDING ANY METHOD 12/02/2017 laser of cecal AVM DRAIN ABDOMINAL ABSCESS, PERCUTANEOUS 12/15/2017 perianastomotic abscess EGD 12/02/2017 ESOPHAGOGASTRODUODENOSCOPY TRANSORAL DIAGNOSTIC 07/03/2012 [place] GAMMA KNIFE 1FX TX DELIVERY 02/12/2022 x 3 on 01/15/22; 01/29/22; 02/12/22 HEMORRHOIDECTOMY INT AND XTRNL 2/> COLUMN/HI 10/26/2009 LAMINECTOMY W/RMVL ABNORMAL FACETS LUMBAR 07/08/2011 [place], [place] LAPAROSCOPY COLECTOMY PARTIAL W/ANASTOMOSIS 02/02/2009 LAPAROSCOPY COLECTOMY PARTIAL W/ANASTOMOSIS Right 12/03/2017 LAPS MOBLJ SPLENIC FLXR PFRMD W/PRTL COLECTOMY 02/02/2009 PAST SURGICAL HISTORY OF 1964 ovarian cyst removed PAST SURGICAL HISTORY OF 2001 BREAST BIOPSY--BENIGN PAST SURGICAL HISTORY OF 03/28/2018 Gallbladder removed SIGMOIDOSCOPY FLX CONTROL BLEEDING 03/22/2009 Granulation tissue at anastomosis SIGMOIDOSCOPY FLX W/BIOPSY SINGLE/MULTIPLE 02/28/2011 TOTAL ABDOMINAL HYSTERECT W/WO RMVL TUBE OVARY 02/1990 Hysterectomy, TERI, BSO FAMILY HISTORY Problem Relation Age of Onset Breast Cancer Mother dec. age 88 Blood Disease Father PE, post MVA, dec. 53yo Breast Cancer Sister Myositis Sister Inclusion Body Myositis None Sister Alzheimer's Disease Sister other (multiple myeloma) Brother Social History Tobacco Use Smoking status: Never Smokeless tobacco: Never Vaping Use Vaping status: Never Used Substance Use Topics Alcohol use: No Drug use: No Current Outpatient Medications Medication Sig alendronate (FOSAMAX) 70 mg tablet Take 1 tablet by mouth one time a week. Take with a full glass of water, on an empty stomach; do NOT lie down for 30minutes. nystatin-triamcinolone (MYCOLOG) ointment Apply 1 application to affected area two times a day. Apply sparingly to perineum twice daily for irritation/infection. iv contrast (will be provided with radiology test) MRI Brain Inject, intravenously, once for 1 dose.No IV access, insert saline lock prior to beginning of sedation, infusion, injection of imaging exam.Discontinue saline lock post exam. If Pt. has a central line or IVAD, may access for administration according to line specific nursing protocol.Once exam is complete flush line and de-access according to line specific nursing protocol in the MR contrast administration guidelines link lactobacillus rhamnosus (CULTURELLE) 10 billion cell capsule Take 1 capsule by mouth once daily. atorvastatin (LIPITOR) 40 mg tablet TAKE 1 TABLET EVERY DAY AT BEDTIME FOR CHOLESTEROL meclizine (ANTIVERT) 12.5 mg tab Take 2 tablets by christian (more content not included)...[facility] Instructions* Patient Instructions* Gavin Tran MD - 09/28/2024 9:25 AM EDT - Continue taking Fosamax once weekly as you ve been doing for your osteoporosis. - Keep wearing the wrist splint at night and avoid prolonged pressure or repeated bending of your wrists. If you notice new weakness, constant pain, or your symptoms worsen, call our office for further evaluation and possible injection or surgical release. - At your upcoming cardiology visit in the next 4-6 weeks, review your carvedilol (beta loida) dose and need. 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 - Keep your gynecology appointment next week to evaluate the recent vaginal irritation and check for any signs of vaginitis. - Your annual wellness visit has been moved to February 28. We will confirm the exact time and include your spouse in this visit. documented in this encounterOhiohealth [facility]06-10-[facility]25 NoteHNO ID: [id number] Author: GAVIN TRAN MD Service: ? Author Type: Physician Type: Progress Notes Filed: 09/28/2024 09:34 Note Text: This note was created using [employer]. Subjective Fannie Avalos is a 79 year old female. Recording using Wiki-PR software for draft documentation of the visit was discussed with the patient/authorized product representative; all questions welcomed and answered. Patient/authorized product representative agreed to proceed Osteoporosis: - Diagnosed with osteoporosis approximately one year ago; previously had osteopenia. - Currently taking Fosamax once weekly for about a year. - Considering switching to Prolia based on friends' recommendations but has decided to continue with Fosamax due to familiarity and adjustment to the regimen. Carpal Tunnel Syndrome: - Experiencing pins and needles sensation in the arm and hand, particularly at night, x6-7 months. - Symptoms began while in [place] and have persisted. - Using a wrist splint at night, which alleviates symptoms. - Denies weakness, decreased windows architect strength, or dropping objects. Balance Issues: - Gradual onset of balance issues x7-8 months. - Feels lightheaded when walking, especially in unfamiliar areas. - Uses a walking stick or cane occasionally for support. - Denies dizziness or balance issues when getting up from a chair. - Has a history of a fall in February at the [facility] but denies any recent falls. - Recent scan for meningioma showed no changes; Dr. Martinez did not believe the balance issues were related. Yeast Infection: - Recently treated for a yeast infection with a single-dose oral medication and ointment prescribed by Naman Heredia. - Severe itching resolved after treatment, with only one recurrence after a hot bath. - Has an upcoming appointment with a casket upholsterer. Osteoarthritis: - History of osteoarthritis in the left hip. - Underwent physical therapy last year following a fall. - No longer an issue at this time. Review of Systems Genitourinary: (-) vaginal pruritus Skin: (-) pruritus Neurological: (+) nocturnal arm and hand paresthesias, (+) memory impairment, (+) unsteady gait, (+) lightheadedness, (-) dizziness, (-) limb weakness ACTIVE PROBLEM LIST Hyperlipidemia Allergic Rhinitis Ibs (Irritable Bowel Syndrome) Age-Related Osteoporosis Without Current Pathological Fracture Benign Meningioma of Brain (Hcc) Carotid Artery Stenosis Benign Neoplasm of Meninges (Hcc) Memory Disturbance Left Leg Weakness Primary Osteoarthritis of Left Hip Carpal Tunnel Syndrome On Right Current Outpatient Medications Medication Sig nystatin-triamcinolone (MYCOLOG) ointment Apply 1 application to affected area two times a day. Apply sparingly to perineum twice daily for irritation/infection. lactobacillus rhamnosus (CULTURELLE) 10 billion cell capsule Take 1 capsule by mouth once daily. atorvastatin (LIPITOR) 40 mg tablet TAKE 1 TABLET EVERY DAY AT BEDTIME FOR CHOLESTEROL meclizine (ANTIVERT) 12.5 mg tab Take 2 tablets by mouth three times a day as needed. naproxen (NAPROSYN) 500 mg tablet Take 1 tablet by mouth two times a day with meals. fluticasone (FLONASE) 50 mcg/actuation nasal spray Use 2 Sprays in each nostril once daily. Rinse mouth after use. carvedilol (COREG) 3.125 mg tablet Take 3.125 mg by mouth two times a day with meals. Cholecalciferol, Vitamin D3, 25 mcg (1,000 unit) cap Take 1 capsule by mouth once daily. VITAMIN E 200 UNIT CAP Take 200 Units by mouth once daily. Perry-3 Fatty Acids (FISH OIL) ORAL Cap Take one(1) capsule daily. MULTIVITAMIN TAB Take one(1) tablet daily. CALCIUM + D 600 MG-200 UNIT TAB Take one(1) tablet daily. ASPIRIN 81 MG TAB Take 81 mg by mouth once daily. alendronate (FOSAMAX) 70 mg tablet Take 1 tablet by mouth one time a week. Take with a full glass of water, on an empty stomach; do NOT lie down for 30minutes. iv contrast (will be provided with radiology test) MRI Brain Inject, intravenously, once for 1 dose.No IV access, insert saline lock prior to beginning of sedation, infusion, injection of imaging exam.Discontinue saline lock post exam. If Pt. has a central line or IVAD, may access for administration according to line specific nursing protocol.Once exam is complete flush line and de-access according to line specific nursing protocol in the MR contrast administration guidelines link No current facility-administered medications for this visit. Objective BP 114/66 Pulse 76 Temp 37.2 ?C (98.9 ?F) (Temporal) Resp 16 Wt 62.1 kg (136 lb 14.5 oz) BMI 24.25 kg/m? Physical Exam Constitutional: General: She is not in acute distress. HENT: Head: Atraumatic. Eyes: Extraocular Movements: Extraocular movements intact. Cardiovascular: Rate and Rhythm: Normal rate and regular rhythm. Heart sounds: No murmur heard. No gallop. Pulmonary: Breath sounds: Normal breath (more content not included)...[facility] History of Present illness Narrative* Gavin Tran MD - 09/28/2024 8:55 AM EDT This note was created using [employer]. Subjective Fannie Avalos is a 79 year old female. Recording using Wiki-PR software for draft documentation of the visit was discussed with the patient/authorized product representative; all questions welcomed and answered. Patient/authorized product representative agreed to proceed Osteoporosis: - Diagnosed with osteoporosis approximately one year ago; previously had osteopenia. - Currently taking Fosamax once weekly for about a year. - Considering switching to Prolia based on friends' recommendations but has decided to continue with Fosamax due to familiarity and adjustment to the regimen. Carpal Tunnel Syndrome: - Experiencing pins and needles sensation in the arm and hand, particularly at night, x6-7 months. - Symptoms began while in [place] and have persisted. - Using a wrist splint at night, which alleviates symptoms. - Denies weakness, decreased windows architect strength, or dropping objects. Balance Issues: - Gradual onset of balance issues x7-8 months. - Feels lightheaded when walking, especially in unfamiliar areas. - Uses a walking stick or cane occasionally for support. - Denies dizziness or balance issues when getting up from a chair. - Has a history of a fall in February at the [facility] but denies any recent falls. - Recent scan for meningioma showed no changes; Dr. Martinez did not believe the balance issues were related. Yeast Infection: - Recently treated for a yeast infection with a single-dose oral medication and ointment prescribedby Naman Heredia. - Severe itching resolved after treatment, with only one recurrence after a hot bath. - Has an upcoming appointment with a casket upholsterer. Osteoarthritis: - History of osteoarthritis in the left hip. - Underwent physical therapy last year following a fall. - No longer an issue at this time. Review of Systems Genitourinary: (-) vaginal pruritus Skin: (-) pruritus Neurological: (+) nocturnal arm and hand paresthesias, (+) memory impairment, (+) unsteady gait, (+) lightheadedness, (-) dizziness, (-) limb weakness ACTIVE PROBLEM LIST Hyperlipidemia Allergic Rhinitis Ibs (Irritable Bowel Syndrome) Age-Related Osteoporosis Without Current Pathological Fracture Benign Meningioma of Brain (Hcc) Carotid Artery Stenosis Benign Neoplasm of Meninges (Hcc) Memory Disturbance Left Leg Weakness Primary Osteoarthritis of Left Hip Carpal Tunnel Syndrome On Right Current Outpatient Medications Medication Sig nystatin-triamcinolone (MYCOLOG) ointment Apply 1 application to affected area two times a day. Apply sparingly to perineum twice daily for irritation/infection. lactobacillus rhamnosus (CULTURELLE) 10 billion cell capsule Take 1 capsule by mouth once daily. atorvastatin (LIPITOR) 40 mg tablet TAKE 1 TABLET EVERY DAY AT BEDTIME FOR CHOLESTEROL meclizine (ANTIVERT) 12.5 mg tab Take 2 tablets by mouth three times a day as needed. naproxen (NAPROSYN) 500 mg tablet Take 1 tablet by mouth two times a day with meals. fluticasone (FLONASE) 50 mcg/actuation nasal spray Use 2 Sprays in each nostril once daily. Rinse mouth after use. carvedilol (COREG) 3.125 mg tablet Take 3.125 mg by mouth two times a day with meals. Cholecalciferol, Vitamin D3, 25 mcg (1,000 unit) cap Take 1 capsule by mouth once daily. VITAMIN E 200 UNIT CAP Take 200 Units by mouth once daily. Perry-3 Fatty Acids (FISH OIL) ORAL Cap Take one(1) capsule daily. MULTIVITAMIN TAB Take one(1) tablet daily. CALCIUM + D 600 MG-200 UNIT TAB Take one(1) tablet daily. ASPIRIN 81 MG TAB Take 81 mg by mouth once daily. alendronate (FOSAMAX) 70 mg tablet Take 1 tablet by mouth one time a week. Take with a full glass of water, on an empty stomach; do NOT lie down for 30minutes. iv contrast (will be provided with radiology test) MRI Brain Inject, intravenously, once for 1 dose.No IV access, insert saline lock prior to beginning of sedation, infusion, injection of imaging exam.Discontinue saline lock post exam. If Pt. has a central line or IVAD, may access for administration according to line specific nursing protocol.Once exam is complete flush line and de-access according to line specific nursing protocol in the MR contrast administration guidelines link No current facility-administered medications for this visit. Objective BP 114/66 Pulse 76 Temp 37.2 C (98.9 F) (Temporal) Resp 16 Wt 62.1 kg (136 lb 14.5 oz) BMI 24.25 kg/m Physical Exam Constitutional: General: She is not in acute distress. HENT: Head: Atraumatic. Eyes: Extraocular Movements: Extraocular movements intact. Cardiovascular: Rate and Rhythm: Normal rate and regular rhythm. Heart sounds: No murmur heard. No gallop. Pulmonary: Breath sounds: Normal breath sounds. Musculoskeletal: Right lower leg: No edema. Left lower leg: No edema. Neurological: General: No focal deficit present. Mental Status: She is alert. Cranial Nerves: No cranial nerve deficit. Motor: No weakness. Coordination: Romberg sign negative. Coordination normal. Heel to Cannon Test normal. Rapid alternating movements normal. Gait: Tandem walk abnormal. Latest Ref Rng 09/28/2024 GLUCOSE UA (POCT) Negative mg/dL Negative BILIRUBIN UA (POCT) Negative Negative KETONE UA (POCT) Negative mg/dL Negative SPECIFIC GRAVITY UA (POCT) 1.005 - 1.030 1.025 HEMOGLOBIN/BLOOD UA (POCT) Negative Trace-intact ! PH UA (POCT) 4.5 - 8.0 5.5 PROTEIN UA (POCT) Negative mg/dL Negative UROBILINOGEN UA (POCT) Normal E.U./dL 0.2 NITRITE UA (POCT) Negative Negative LEUKOCYTES UA (POCT) Negative Negative COLOR UA (POCT) Yellow CLARITY UA (POCT) Clear Legend: ! Abnormal Assessment and Plan 1. Urinary symptom or sign - ICD9: 788.99, ICD10: R39.9 (primary diagnosis) - See gynecology. - UA DIP, URINE (POC) 2. Unsteady gait when walking - ICD9: 781.2, ICD10: R26.81 - .See printed instructions or information. Discuss need for beta loida. Consider PT consult. 3. Carpal tunnel syndrome on right - ICD9: 354.0, ICD10: G56.01 - Stable. Continue splinting. 4. Age-related osteoporosis without current pathological fracture - ICD9: 733.01, ICD10: M81.0 - continue tx with alendronate (Fosamax) - Reviewed the need for Calcium and Vitamin D supplements and weight bearing exercise as tolerated - BMD in 2025. 5. Premature atrial contraction - ICD9: 427.61, ICD10: I49.1 - To see cardiology. - Continue taking Fosamax once weekly as you ve been doing for your osteoporosis. - Keep wearing the wrist splint at night and avoid prolonged pressure or repeated bending of your wrists. If you notice new weakness, constant pain, or your symptoms worsen, call our office for further evaluation and possible injection or surgical release. - At your upcoming cardiology visit in the next 4-6 weeks, review your carvedilol (beta loida) dose and need. 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 - Keep your gynecology appointment next week to evaluate the recent vaginal irritation and check for any signs of vaginitis. - Your annual wellness visit has been moved to February 28. We will confirm the exact time and include your spouse in this visit. Gavin Tran MD documented in this encounterOhiohealth O[facility]05-28-2025 NoteHNO ID: [id number] Author: RENUKA DIAS CPhT Service: ? Author Type: Craft Artist Type: Progress Notes Filed: 09/15/2024 13:57 Note Text: Patient is identified through a medication adherence outreach initiative based on pharmacy claims data from: [employer] Medication Adherence Category: Statins First Review Attribution Status: Correct attribution Medication(s) Atorvastatin 40 mg Medication Status per portal/Epic Reconcile Dispense: Filled late - Greater than 7 days after next fill date Date Filled (MM/DD): 09/06/24 due 08/24/24 Day Supply: 90 Medication Status per Profile Review: No issues per profile review Patient/provider appropriate for outreach? No Reason patient/provider not appropriate for outreach:Patient filled on time / no adherence concerns to be addressed Renuka Dias CPhT [facility] [place] [facility] History of Present illness Narrative* Renuka Dias CPhT - 09/15/2024 1:56 PM EDT Patient is identified through a medication adherence outreach initiative based on pharmacy claims data from: [employer] Medication Adherence Category: Statins First Review Attribution Status: Correct attribution Medication(s) Atorvastatin 40 mg Medication Status per portal/Epic Reconcile Dispense: Filled late - Greater than 7 days after next fill date Date Filled (MM/DD): 09/06/24 due 08/24/24 Day Supply: 90 Medication Status per Profile Review: No issues per profile review Patient/provider appropriate for outreach? No Reason patient/provider not appropriate for outreach:Patient filled on time / no adherence concernsto be addressed Renuka Dias CPhT [facility] Care Pharmacy Team documented in this encounterOhiohealth O'[facility]len[facility]05-28-2025 NotePatient Outreach (PHPOHE) FANNIE AVALOS ([id number]) 1945 F Date Time Provider Department 09/15/24 GAVIN TRAN PHPOHE During your visit today, we recorded the following information about you: Renuka Dias CPhT 09/15/2024 1:57 PM Signed Patient is identified through a medication adherence outreach initiative based on pharmacy claims data from: [facility] Medication Adherence Category: Statins First Review Attribution Status: Correct attribution Medication(s) Atorvastatin 40 mg Medication Status per portal/Epic Reconcile Dispense: Filled late - Greater than 7 days after next fill date Date Filled (MM/DD): 09/06/24 due 08/24/24 Day Supply: 90 Medication Status per Profile Review: No issues per profile review Patient/provider appropriate for outreach? No Reason patient/provider not appropriate for outreach:Patient filled on time / no adherence concerns to be addressed Renuka Dias CPhT [facility] Care Pharmacy Team Allergies As of Date: 09/15/2024 Noted Allergy Reaction BACTRIM (SULFAMETHOXAZOLE-TRIMETH*02/25/2005 8 - GI Upset Comments: nausea CLINDAMYCIN HCL 09/25/2010 8 - GI Upset FLAGYL (METRONIDAZOLE HCL) 10/19/2009 8 - GI Upset GADOLINIUM-CONTAINING CONTRAST ME*10/28/2017 4 - Hives Comments: Gadolinium/Gadavist TRIMETHOPRIM 12/30/2018 11 - Vomiting LEVOFLOXACIN 12/30/2018 8 - GI Upset Date Reviewed: 2024 Reviewed by: Leisa Lopez LPN - Fully Assessed Reason for Visit: Allied Health Visit [5] Cmt: Medication Adherence Outreach Prescriptions as of 09/15/2024 - nystatin-triamcinolone (MYCOLOG) ointment Apply 1 application to affected area two times a day. Apply sparingly to perineum twice daily for irritation/infection. - iv contrast (will be provided with radiology test) MRI Brain Inject, intravenously, once for 1 dose.No IV access, insert saline lock prior to beginning of sedation, infusion, injection of imaging exam.Discontinue saline lock post exam. If Pt. has a central line or IVAD, may access for administration according to line specific nursing protocol.Once exam is complete flush line and de-access according to line specific nursing protocol in the MR contrast administration guidelines link - lactobacillus rhamnosus (CULTURELLE) 10 billion cell capsule Take 1 capsule by mouth once daily. - atorvastatin (LIPITOR) 40 mg tablet TAKE 1 TABLET EVERY DAY AT BEDTIME FOR CHOLESTEROL - meclizine (ANTIVERT) 12.5 mg tab Take 2 tablets by mouth three times a day as needed. - alendronate (FOSAMAX) 70 mg tablet Take 1 tablet by mouth one time a week. Take with a full glass of water, on an empty stomach; do NOT lie down for 30minutes. - naproxen (NAPROSYN) 500 mg tablet Take 1 tablet by mouth two times a day with meals. - fluticasone (FLONASE) 50 mcg/actuation nasal spray Use 2 Sprays in each nostril once daily. Rinse mouth after use. - carvedilol (COREG) 3.125 mg tablet Take 3.125 mg by mouth two times a day with meals. - Cholecalciferol, Vitamin D3, 25 mcg (1,000 unit) cap Take 1 capsule by mouth once daily. - VITAMIN E 200 UNIT CAP Take 200 Units by mouth once daily. - Perry-3 Fatty Acids (FISH OIL) ORAL Cap Take one(1) capsule daily. - MULTIVITAMIN TAB Take one(1) tablet daily. - CALCIUM + D 600 MG-200 UNIT TAB Take one(1) tablet daily. - ASPIRIN 81 MG TAB Take 81 mg by mouth once daily. Problem List As Of Date 09/15/2024 Noted Resolved Cervical spondylosis without myelopathy [M47.81*02/26/2005 10/04/2013 Hyperlipidemia [E78.5] 03/18/2005 Family history of malignant neoplasm of breast *10/16/2005 02/27/2022 Unspecified Chest Pain [R07.9] 12/03/2005 12/07/2009 Other Malaise and Fatigue [R53.81, R53.83] 12/03/2005 12/07/2009 Anxiety state, unspecified [F41.1] 01/15/2007 01/13/2012 Benign neoplasm of colon [D12.6] 11/30/2008 02/27/2022 Incontinence of Feces [787.6] 11/30/2008 12/07/2009 Unspecified hemorrhoids without mention of comp*11/30/2008 10/04/2013 Allergic rhinitis [J30.9] 11/30/2008 Diverticulosis of colon [K57.30] 01/06/2009 12/31/2016 Rectal bleeding [K62.5] 03/09/2009 01/13/2012 Spondylosis, 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] 12/07/2009 10/04/2013 Enthesopathy of hip region [M76.899] 02/04/2011 01/13/2012 Diarrhea [R19.7] 04/10/2024 Anal fissure [K60.2] 03/07/2011 02/08/2014 Palpitations [R00.2] 01/13/2012 03/29/2024 IBS (irritable bowel syndrome) [K58.9] 01/26/2013 Rectocele [N81.6] 03/02/2013 10/04/2013 Age-related osteoporosis without current pathol*10/27/2013 Carotid disease, bilateral (HCC) [I77.9] 01/03/2016 05/14/2019 Benign meningioma of brain (HCC) [D32.0] 10/28/2017 Muscle weakness [M62.81] 11/25/2018 05/14/2019 Carotid artery stenosis [I65.29] 05/14/2019 Incontinence of feces [R15.9] 03/09/2021 11/12/2022 Benign neoplasm of meninges (HCC) [D32.9] 09/13/2021 Acute left-sided thoracic back pain [M (more content not included)...[facility] Instructions* Patient Instructions* Júnior Heredia APRN.CNS - 2024 3:45 PM EDT A single antifungal pill has been prescribed to cover for a possible yeast infection. Use the new antifungal and steroid cream on the affected area daily until your gynecology appointment in September. Stop using the previous vaginal product purchased at [facility]. When cleaning your vaginal area, use only water and a washcloth - avoid soap to prevent irritation. Avoid scratching the area despite the urge, as it may worsen irritation. If your symptoms do not improve or if they worsen before your appointment, please contact our office via [employer] or give the nurses a call. documented in this encounterOhiohealth O'[facility]len[facility]05-19-2025 NoteHNO ID: [id number] Author: HEREDIA, JÚNIOR, SENIOR GAMES TECHNICIAN.CIVILIAN JAIL OFFICER Service: ? Author Type: Nurse Specialist Type: Progress Notes Filed: 2024 16:38 Note Text: Subjective Patient ID: Bella is a 79 year old female who presents for vaginal itching. HPI Bella is an 79-year-old female presenting for evaluation of vulvar pruritus. Vulvar Pruritus: - Onset 6-8 months ago, initially mild and occurring primarily in the evening. - Aggravated by bathing; initially relieved by scratching. - Symptoms have intensified over the past month, with increased frequency and duration of pruritus. - Describes a sharp pain on one side of the labia when scratching. - Using an [id number] topical cream from [employer] with minimal relief. - Denies vaginal discharge or odor. - Bathes daily, using soap and water for cleansing. - Wears thin stick-on pads due to occasional liquid stools. - Has an upcoming gynecology appointment in September. ROS Gastrointestinal: (+) occasional diarrhea Genitourinary: (+) vulvar itching, (+) vulvar pain with scratching, (-) vaginal discharge, (-) odor No UTI symptoms. Objective BP 133/73 Pulse 76 Resp 16 Wt 60 kg (132 lb 4.4 oz) BMI 23.43 kg/m? Physical Exam Vitals and nursing note reviewed. Constitutional: Appearance: Normal appearance. HENT: Head: Normocephalic and atraumatic. Eyes: Conjunctiva/sclera: Conjunctivae normal. Cardiovascular: Rate and Rhythm: Normal rate. Pulmonary: Effort: Pulmonary effort is normal. Skin: General: Skin is warm and dry. Neurological: General: No focal deficit present. Mental Status: She is alert and oriented to person, place, and time. no drainage, skin excoriated right vulvar region, no mass erythema or warmth 1. Pruritus vulvae (L29.2) 2. 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 - No associated discharge or odor reported. - External examination performed; noted irritation likely from scratching. - Prescribed a single dose of oral antifungal medication. - Prescribed antifungal and steroid cream; instructed to apply daily until gynecology appointment. - Advised to discontinue use of soap in the vulvar area; recommended gentle cleansing with water and a washcloth only. Avoid current OTC cleaning wipes and OTC topical treatment. - Discussed avoiding tight clothing and allowing the area to remain clean, dry, and . - Follow-up with gynecology appointment in September. - understands and agrees with the treatment plan. Júnior Heredia APRN.SHELLIE Medical Decision Making: Problems: Low: Acute, uncomplicated illness or injury Risk: Moderate: Drug management Medical Decision Making Level: 3 - [facility] History of Present illness Narrative* Júnior Heredia APRN.CIVILIAN JAIL OFFICER - 2024 3:27 PM EDT Subjective Patient ID: Bella is a 79 year old female who presents for vaginal itching. HPI Bella is an 79-year-old female presenting for evaluation of vulvar pruritus. Vulvar Pruritus: - Onset 6-8 months ago, initially mild and occurring primarily in the evening. - Aggravated by bathing; initially relieved by scratching. - Symptoms have intensified over the past month, with increased frequency and duration of pruritus. - Describes a sharp pain on one side of the labia when scratching. - Using an dkel-gpv-btnafls topical cream from [employer] with minimal relief. - Denies vaginal discharge or odor. - Bathes daily, using soap and water for cleansing. - Wears thin stick-on pads due to occasional liquid stools. - Has an upcoming gynecology appointment in September. ROS Gastrointestinal: (+) occasional diarrhea Genitourinary: (+) vulvar itching, (+) vulvar pain with scratching, (-) vaginal discharge, (-) odor No UTI symptoms. Objective BP 133/73 Pulse 76 Resp 16 Wt 60 kg (132 lb 4.4 oz) BMI 23.43 kg/m Physical Exam Vitals and nursing note reviewed. Constitutional: Appearance: Normal appearance. HENT: Head: Normocephalic and atraumatic. Eyes: Conjunctiva/sclera: Conjunctivae normal. Cardiovascular: Rate and Rhythm: Normal rate. Pulmonary: Effort: Pulmonary effort is normal. Skin: General: Skin is warm and dry. Neurological: General: No focal deficit present. Mental Status: She is alert and oriented to person, place, and time. no drainage, skin excoriated right vulvar region, no mass erythema or warmth 1. Pruritus vulvae (L29.2) 2. 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 - No associated discharge or odor reported. - External examination performed; noted irritation likely from scratching. - Prescribed a single dose of oral antifungal medication. - Prescribed antifungal and steroid cream; instructed to apply daily until gynecology appointment. - Advised to discontinue use of soap in the vulvar area; recommended gentle cleansing with water and a washcloth only. Avoid current OTC cleaning wipes and OTC topical treatment. - Discussed avoiding tight clothing and allowing the area to remain clean, dry, and . - Follow-up with gynecology appointment in September. - understands and agrees with the treatment plan. Júnior Heredia APRN.CIVILIAN JAIL OFFICER Medical Decision Making: Problems: Low: Acute, uncomplicated illness or injury Risk: Moderate: Drug management Medical Decision Making Level: 3 - Low documented in this encounterOhiohealth O'[facility]len[facility]05-13-2025 History of Present illness Narrative* Bernabe Cox MD - 08/31/2024 11:00 AM EDT NEUROSURGERY FOLLOW UP OFFICE NOTE Dr. Bernabe Go. MD Tee, FACS Date of visit: August 31, 2024 Patient Name: Ms.Marjorie Arielle Avalos Date of : 1945 Current Age: [age] year old Sex: female MRN/E# [id number] Last Office Visit: September 30, 2023 CHIEF COMPLAINT: Patient presents with: Established Patient SUBJECTIVE: The patient presents as a follow-up with imaging (MRI B) for evaluation. This is an 78-year-old female with a PMHx of intracranial meningioma diagnosed in September 2017 after experiencing episodes of visual changes. Given the symptoms MRI was obtained and demonstrated a left parasagittal meningioma forwhich no surgical intervention was indicated. She followed with Dr. Lindsey until 2021 imaging demonstrated an increase in size. She was referred for possible gamma knife treatment. She was seen for consult in August 2021 and reported intermittent episodes of right sided head pain but denied any significant headache. MRI was reviewed and compared to prior imaging. This showed a 6-7mm increase from 2017 to 2021. Treatment options were discussed including open craniotomy with resection or gamma knife. Her case was discussed with the tumor board and radiation oncology who proposed that gamma knife could be provided in divided fractions which she agreed to. This was completed asnoted below in 3 sessions. Since then she has been seen routinely for evaluation with imaging and has overall done well. She was last seen in the office in September 2023 for reported that she was overall doing well. She denied any significant issues with the exception of mild numbness to the right hand especially when sleeping. She denied any weakness to the hand. Neurologically she was intact on exam without focal deficit. MRI was reviewed and showed no evidence of change in size or configuration. Recommendation was to follow-up in 1 year with repeat MRI prompting her visit today. Since last visit she states she is overall doing well. She denies headache, visual changes, speech deficits, seizure activity, motor or sensory deficits. She presents for image review, evaluation andplan of care. SYMPTOMS: None PREVIOUS CONSERVATIVE TREATMENTS: None SURGICAL RISK: Smoker: Never Diabetic: No Anticoagulants / Antiplatelets: ASA 81 mg Occupation: N/A PREVIOUS NEUROSURGERY: SURGERY #1: Gamma Knife Stereotactic Radiosurgery for a meningioma on 01/15/[address] Cox. 1. Left parietal falx 1 of 3 SURGERY #2: Gamma Knife Stereotactic Radiosurgery for a meningioma on 01/29/[address] Cox. 1. Left parietal falx 2 of 3 SURGERY#3: Gamma Knife Stereotactic Radiosurgery for a meningioma on 02/12/[address] Cox. 1. Left parietal falx 3 of 3 PAIN EVALUATION No data found in the last 1 encounters. 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 CERVICAL SPONDYLOSIS 02/26/2005 Diarrhea Diverticulosis of colon 01/06/2009 Esophageal reflux Hemorrhage of rectum and anus 12/02/2017 HEMORRHOIDS NOS 11/30/2008 HYPERLIPIDEMIA NEC/NOS 03/18/2005 IBS (irritable bowel syndrome) 01/26/2013 Incontinence of feces 11/30/2008 Incontinence of feces 03/09/2021 Nausea vomiting and diarrhea 04/06/2024 Osteopenia Palpitations 01/13/2012 Perforation of large intestine (HCC) 12/03/2017 Primary osteoarthritis of left hip 03/01/2024 Spondylosis, 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 TIA (transient ischemic attack) 06/17/2017 [place], [place] PAST SURGICAL HISTORY Procedure Laterality Date CHOLECYSTECTOMY HX 03/2018 COLONOSCOPY FLX DX W/COLLJ SPEC WHEN PFRMD 10/20/2003 Colonoscopy COLONOSCOPY FLX DX W/COLLJ SPEC WHEN PFRMD 01/06/2009 Extensive diverticulosis/hemorrhoids COLONOSCOPY FLX DX W/COLLJ SPEC WHEN PFRMD 07/24/2012 [place] COLSC FLEXIBLE W/CONTROL BLEEDING ANY METHOD 12/02/2017 laser of cecal AVM DRAIN ABDOMINAL ABSCESS, PERCUTANEOUS 12/15/2017 perianastomotic abscess EGD 12/02/2017 ESOPHAGOGASTRODUODENOSCOPY TRANSORAL DIAGNOSTIC 07/03/2012 [place] GAMMA KNIFE 1FX TX DELIVERY 02/12/2022 x 3 on 01/15/22; 01/29/22; 02/12/22 HEMORRHOIDECTOMY INT & XTRNL 2/> COLUMN/HI 10/26/2009 LAMINECTOMY W/RMVL ABNORMAL FACETS LUMBAR 07/08/2011 [place], [place] LAPAROSCOPY COLECTOMY PARTIAL W/ANASTOMOSIS 02/02/2009 LAPAROSCOPY COLECTOMY PARTIAL W/ANASTOMOSIS Right 12/03/2017 LAPS MOBLJ SPLENIC FLXR PFRMD W/PRTL COLECTOMY 02/02/2009 PAST SURGICAL HISTORY OF 1964 ovarian cyst removed PAST SURGICAL HISTORY OF 2001 BREAST BIOPSY--BENIGN PAST SURGICAL HISTORY OF 03/28/2018 Gallbladder removed SIGMOIDOSCOPY FLX CONTROL BLEEDING 03/22/2009 Granulation tissue at anastomosis SIGMOIDOSCOPY FLX W/BIOPSY SINGLE/MULTIPLE 02/28/2011 TOTAL ABDOMINAL HYSTERECT W/WO RMVL TUBE OVARY 02/1990 Hysterectomy, TERI, BSO FAMILY HISTORY Problem Relation Age of Onset Breast Cancer Mother dec. age 88 Blood Disease Father PE, post MVA, dec. 53yo Breast Cancer Sister Myositis Sister Inclusion Body Myositis None Sister Alzheimer's Disease Sister other (multiple myeloma) Brother ALLERGIES Allergen Reactions Bactrim [Sulfametho* GI Upset nausea Clindamycin Hcl GI Upset Flagyl [Metronidazo* GI Upset Gadolinium-Containi* Hives Gadolinium/Gadavist Trimethoprim Vomiting Levofloxacin GI Upset Current Outpatient Medications Medication Sig Dispense Refill lactobacillus rhamnosus (CULTURELLE) 10 billion cell capsule Take 1 capsule by mouth once daily. atorvastatin (LIPITOR) 40 mg tablet TAKE 1 TABLET EVERY DAY AT BEDTIME FOR CHOLESTEROL 90 tablet 3 meclizine (ANTIVERT) 12.5 mg tab Take 2 tablets by mouth three times a day as needed. 15 tablet 0 alendronate (FOSAMAX) 70 mg tablet Take 1 tablet by mouth one time a week. Take with a full glass of water, on an empty stomach; do NOT lie down for 30minutes. 12 tablet 3 fluticasone (FLONASE) 50 mcg/actuation nasal spray Use 2 Sprays in each nostril once daily. Rinse mouth after use. 1 Each 0 carvedilol (COREG) 3.125 mg tablet Take 3.125 mg by mouth two times a day with meals. Cholecalciferol, Vitamin D3, 25 mcg (1,000 unit) cap Take 1 capsule by mouth once daily. VITAMIN E 200 UNIT CAP Take 200 Units by mouth once daily. 0 Perry-3 Fatty Acids (FISH OIL) ORAL Cap Take one(1) capsule daily. 0 MULTIVITAMIN TAB Take one(1) tablet daily. 0 CALCIUM + D 600 MG-200 UNIT TAB Take one(1) tablet daily. 0 ASPIRIN 81 MG TAB Take 81 mg by mouth once daily. 0 iv contrast (will be provided with radiology test) MRI Brain Inject, intravenously, once for 1 dose.No IV access, insert saline lock prior to beginning of sedation, infusion, injection of imaging exam.Discontinue saline lock post exam. If Pt. has a central line or IVAD, may access for administration according to line specific nursing protocol.Once exam is complete flush line and de-access according to line specific nursing protocol in the MR contrast administration guidelines link 1 each 0 naproxen (NAPROSYN) 500 mg tablet Take 1 tablet by mouth two times a day with meals. (Patient taking differently: Take 500 mg by mouth two times a day with meals. PRN) 30 tablet 0 No current facility-administered medications for this visit. REVIEW OF SYSTEMS: Review of Systems Constitutional: Negative for chills, diaphoresis (Negative for night sweats.) and fever. HENT: Negative for ear discharge and rhinorrhea. Eyes: Negative for discharge. Respiratory: Negative for cough, shortness of breath and wheezing. Cardiovascular: Negative for chest pain, palpitations and leg swelling. Gastrointestinal: Negative for constipation, diarrhea, nausea and vomiting. Endocrine: Negative for cold intolerance and heat intolerance. Genitourinary: Negative for frequency. Negative for urinary incontinence and urinary retention. Musculoskeletal: Negative for back pain, joint swelling, myalgias and neck pain. Skin: Negative for rash (Negative for hives and skin lesions.). Allergic/Immunologic: Negative for environmental allergies and food allergies. Negative for contact allergy, seasonal allergies. Neurological: Negative for dizziness, seizures, syncope, weakness, light- headedness, numbness (Negative for numbness in extremities.) and headaches. Hematological: Does not bruise/bleed easily. Psychiatric/Behavioral: The patient is not nervous/anxious. Negative for depression. OBJECTIVE: BP 112/71 Pulse 70 Resp 16 Ht 5' 3 (1.60m) Wt 134 lb 11.2 oz (61.1kg) SpO2 98% BMI 23.87 kg/(m^2). PHYSICAL EXAM: Mental State : Alert. Attention span and concentration normal for patient's age. Speech normal, fluent. No receptive or expressive speech deficit. Recent and remote memory normal. Orientation : Oriented to person, place and time. Higher Cortical Function : Intact speech and language. Comprehension normal. Fund of knowledge intact for pt level of education. Cranial Nerves : II: No visual field cut, no blurring. Makes and sustains eye contact. III, IV, : No double vision or lid drooping. Pupils equal and reactive to light. Extraocular muscles intact. No nystagmus. V: Normal sensation on the face, normal jaw movements. VII: No paresis on either side. VIII: No gross hearing deficit IX: Good and equal shoulder shrugs. XII: Tongue midline, no fasciculations. Sensory: SILT. Normal Sensation in bilateral upper and bilateral lower extremities to touch and noxious stimuli. Motor: Normal muscle tone and bulk. No spasticity, tremor or uncontrollable movements. Strength: Upper Extremities : R L Deltoid 5/5 5/5 Biceps 5/5 5/5 Triceps 5/5 5/5 Wrist Ext 5/5 5/5 Wrist Flx 5/5 5/5 Hand Int 5/5 5/5 Lower Extremities : Hip Flexors 5/5 5/5 Hip Extensors 5/5 5/5 Hip Abductors 5/5 5/5 Straight leg Neg Neg Ankle dorsiflex 5/5 5/5 Ankle Plantar 5/5 5/5 Cerebellar Function : Normal finger to nose. Normal rapid alternating movements. No ataxia. . Gait and Station: Normal gait. No assistive device usage. IMAGING: MRI brain WO/W IVCON performed on 08/27/2024 demonstrates: IMPRESSION: Stable appearance of the brain since 09/24/2023. Stable left parafalcine meningioma with moderate localized mass effect. ASSESSMENT/PLAN: 1. Benign meningioma of brain (HCC) - ICD9: 225.2, ICD10: D32.0 Patient has a parasagittal falx meningioma that was previously treated with gamma knife treatment in 3 fractions. She has been doing well and we have been following her once a year with MRI scans. The most recent MRI scan was reviewed and compared to last year. There has been no change in configuration or size. There is no associated edema. Patient has no clinical findings of a focal deficit. I recommended that we have her continue annual MRI scans. - MRI BRAIN WO/W IVCON - IV CONTRAST (RADIOLOGY PROCEDURE) - NOT ON MAR Bernabe Cox MD FOLLOW UP: Return in about 1 year (around 08/31/2025) for review of MRI. Please Note: This note has been partially generated using [employer], a speech recognition software program, and may contain errors including punctuation, grammar, spelling, gender, and inappropriate words or phrases that pertain to the system. documented in this encounterOhiohealth O'[facility]05-13-2025 NoteHNO ID: [id number] Author: BERNABE COX MD Service: ? Author Type: Physician Type: Progress Notes Filed: 08/31/2024 10:54 Note Text: NEUROSURGERY FOLLOW UP OFFICE NOTE Dr. Bernabe Cox MD, FACS Date of visit: August 31, 2024 Patient Name: Ms.Marjorie Arielle Avalos Date of : 1945 Current Age: [age] year old Sex: female MRN/E# [id number] Last Office Visit: September 30, 2023 CHIEF COMPLAINT: Patient presents with: Established Patient SUBJECTIVE: The patient presents as a follow-up with imaging (MRI B) for evaluation. This is an 78-year-old female with a PMHx of intracranial meningioma diagnosed in September 2017 after experiencing episodes of visual changes. Given the symptoms MRI was obtained and demonstrated a left parasagittal meningioma for which no surgical intervention was indicated. She followed with Dr. Lindsey until 2021 imaging demonstrated an increase in size. She was referred for possible gamma knife treatment. She was seen for consult in August 2021 and reported intermittent episodes of right sided head pain but denied any significant headache. MRI was reviewed and compared to prior imaging. This showed a 6-7 mm increase from 2017 to 2021. Treatment options were discussed including open craniotomy with resection or gamma knife. Her case was discussed with the tumor board and radiation oncology who proposed that gamma knife could be provided in divided fractions which she agreed to. This was completed as noted below in 3 sessions. Since then she has been seen routinely for evaluation with imaging and has overall done well. She was last seen in the office in September 2023 for reported that she was overall doing well. She denied any significant issues with the exception of mild numbness to the right hand especially when sleeping. She denied any weakness to the hand. Neurologically she was intact on exam without focal deficit. MRI was reviewed and showed no evidence of change in size or configuration. Recommendation was to follow-up in 1 year with repeat MRI prompting her visit today. Since last visit she states she is overall doing well. She denies headache, visual changes, speech deficits, seizure activity, motor or sensory deficits. She presents for image review, evaluation and plan of care. SYMPTOMS: None PREVIOUS CONSERVATIVE TREATMENTS: None SURGICAL RISK: Smoker: Never Diabetic: No Anticoagulants / Antiplatelets: ASA 81 mg Occupation: N/A PREVIOUS NEUROSURGERY: SURGERY #1: Gamma Knife Stereotactic Radiosurgery for a meningioma on 01/15/[address] Cox. 1. Left parietal falx 1 of 3 SURGERY #2: Gamma Knife Stereotactic Radiosurgery for a meningioma on 01/29/[address] Cox. 1. Left parietal falx 2 of 3 SURGERY#3: Gamma Knife Stereotactic Radiosurgery for a meningioma on 02/12/[address] Cox. 1. Left parietal falx 3 of 3 PAIN EVALUATION No data found in the last 1 encounters. 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 CERVICAL SPONDYLOSIS 02/26/2005 Diarrhea Diverticulosis of colon 01/06/2009 Esophageal reflux Hemorrhage of rectum and anus 12/02/2017 HEMORRHOIDS NOS 11/30/2008 HYPERLIPIDEMIA NEC/NOS 03/18/2005 IBS (irritable bowel syndrome) 01/26/2013 Incontinence of feces 11/30/2008 Incontinence of feces 03/09/2021 Nausea vomiting and diarrhea 04/06/2024 Osteopenia Palpitations 01/13/2012 Perforation of large intestine (HCC) 12/03/2017 Primary osteoarthritis of left hip 03/01/2024 Spondylosis, 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 TIA (transient ischemic attack) 06/17/2017 [place], [place] PAST SURGICAL HISTORY Procedure Laterality Date CHOLECYSTECTOMY HX 03/2018 COLONOSCOPY FLX DX W/COLLJ SPEC WHEN PFRMD 10/20/2003 Colonoscopy COLONOSCOPY FLX DX W/COLLJ SPEC WHEN PFRMD 01/06/2009 Extensive diverticulosis/hemorrhoids COLONOSCOPY FLX DX W/COLLJ SPEC WHEN PFRMD 07/24/2012 [place] COLSC FLEXIBLE W/CONTROL BLEEDING ANY METHOD 12/02/2017 laser of cecal AVM DRAIN ABDOMINAL ABSCESS, PERCUTANEOUS 12/15/2017 perianastomotic abscess EGD 12/02/2017 ESOPHAGOGASTRODUODENOSCOPY TRANSORAL DIAGNOSTIC 07/03/2012 [place] GAMMA KNIFE 1FX TX DELIVERY 02/12/2022 x 3 on 01/15/22; 01/29/22; 02/12/22 HEMORRHOIDECTOMY INT AND XTRNL 2/> COLUMN/HI 10/26/2009 LAMINECTOMY W/RMVL ABNORMAL FACETS LUMBAR 07/08/2011 [place], [place] LAPAROSCOPY COLECTOMY PARTIAL W/ANASTOMOSIS 02/02/2009 LAPAROSCOPY COLECTOMY PARTIAL W/ANASTOMOSIS Right 12/03/2017 LAPS MOBLJ SPLENIC FLXR PFRMD W/PRTL COLECTOMY 02/02/2009 PAST SURGICAL HISTORY OF 1964 ovarian cyst removed PAST SURGICAL HISTORY OF 2001 BREAST BIOPSY--BENIGN PAST SURGICAL HISTORY OF 03/28/2018 Gallbladder remove (more content not included)...[facility] 08-27-2024 History of Present illness Narrative* Lesly Gordillo RT(R) - 08/27/2024 11:00 AM EDT Radiology Service Progress Note DATE OF SERVICE: August 27, 2024 TIME: 11:47 AM PATIENT IDENTITY VERIFICATION COMPLETED USING TWO (2) STANDARD IDENTIFIERS: Name and Date of confirmed by patient verbally. FALL SCREENING: Has the patient had 2 falls in the last year or 1 fall with injury or currently using an Ambulatory Assistive Device (Walker, Cane, Wheelchair, Crutches, etc.)? No PATIENT GENDER DATA: Assigned female at . status: : No status:NO. PATIENT RELEVANT IMPLANT DATA REVIEWED: Yes PATIENT PRESENTS WITH AN IMPLANTABLE OR ATTACHED VAT TENDER: No ALLERGIES: Reviewed and unchanged CONTRAST ALLERGY: NO. EXAM: MRI - CONTRAST TYPE: GROUP II PERIPHERAL IV DATA: Ambulatory: A peripheral IV was started in the Left hand with a Butterfly: 22 gauge. RADIOLOGY DEPARTMENT: MR; Exam(s) Completed: Head: Routine Brain. Lavender Administered: No SIGNATURE: DONNY Pearce) PATIENT NAME: Fannie Avalos DATE: August 27, 2024 TIME: 11:47 AM documented in this encounterOhiohealth O'Bleness [facility]05-09-2025 NoteHNO ID: [id number] Author: LESLY GORDILLO RT(R) Service: ? Author Type: Technologist Type: Progress Notes Filed: 08/27/2024 11:48 Note Text: Radiology Service Progress Note DATE OF SERVICE: August 27, 2024 TIME: 11:47 AM PATIENT IDENTITY VERIFICATION COMPLETED USING TWO (2) STANDARD IDENTIFIERS: Name and Date of confirmed by patient verbally. FALL SCREENING: Has the patient had 2 falls in the last year or 1 fall with injury or currently using an Ambulatory Assistive Device (Walker, Cane, Wheelchair, Crutches, etc.)? No PATIENT GENDER DATA: Assigned female at . status: : No status: NO. PATIENT RELEVANT IMPLANT DATA REVIEWED: Yes PATIENT PRESENTS WITH AN IMPLANTABLE OR ATTACHED VAT TENDER: No ALLERGIES: Reviewed and unchanged CONTRAST ALLERGY: NO. EXAM: MRI - CONTRAST TYPE: GROUP II PERIPHERAL IV DATA: Ambulatory: A peripheral IV was started in the Left hand with a Butterfly: 22 gauge. RADIOLOGY DEPARTMENT: MR; Exam(s) Completed: Head: Routine Brain. Lavender Administered: No SIGNATURE: RT Ramses(R) PATIENT NAME: Fannie Avalos DATE: August 27, 2024 TIME: 11:47 [facility]04-15-2025 NoteHNO ID: [id number] Author: OUMAR FRANK, ? Service: ? Author Type: Physician Type: Progress Notes Filed: 08/03/2024 22:10 Note Text: Saul Blanco is an 78-year-old female presenting for right foot pain. Right Foot Pain: - Pain in the right hallux and second toe, x5 months. - Pain is both dorsal and plantar, exacerbated by weight-bearing and alleviated by rest. - Intolerant to covers on the foot at night. - Pain is intermittent; trialed ibuprofen with uncertain efficacy. - Difficulty finding comfortable footwear; reports some relief with metatarsal pads. - Denies diabetes mellitus. Musculoskeletal: (+) right foot pain (involving right big toe, second toe, plantar and dorsal aspects) 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 CERVICAL SPONDYLOSIS 02/26/2005 Diarrhea Diverticulosis of colon 01/06/2009 Esophageal reflux Hemorrhage of rectum and anus 12/02/2017 HEMORRHOIDS NOS 11/30/2008 HYPERLIPIDEMIA NEC/NOS 03/18/2005 IBS (irritable bowel syndrome) 01/26/2013 Incontinence of feces 11/30/2008 Incontinence of feces 03/09/2021 Nausea vomiting and diarrhea 04/06/2024 Osteopenia Palpitations 01/13/2012 Perforation of large intestine (HCC) 12/03/2017 Primary osteoarthritis of left hip 03/01/2024 Spondylosis, 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 age 88 Blood Disease Father PE, post MVA, dec. 53yo Breast Cancer Sister Myositis Sister Inclusion Body Myositis None Sister Alzheimer's Disease Sister other (multiple myeloma) Brother ALLERGIES Allergen Reactions Bactrim [Sulfametho* GI Upset nausea Clindamycin Hcl GI Upset Flagyl [Metronidazo* GI Upset Gadolinium-Containi* Hives Gadolinium/Gadavist Trimethoprim Vomiting Levofloxacin GI Upset Outpatient Medications as of 08/03/2024 Medication Sig atorvastatin (LIPITOR) 40 mg tablet TAKE 1 TABLET EVERY DAY AT BEDTIME FOR CHOLESTEROL alendronate (FOSAMAX) 70 mg tablet Take 1 tablet by mouth one time a week. Take with a full glass of water, on an empty stomach; do NOT lie down for 30minutes. cetirizine (ZYRTEC) 10 mg tablet Take 10 mg by mouth as needed for cold/allergy symptoms. naproxen (NAPROSYN) 500 mg tablet Take 1 tablet by mouth two times a day with meals. (Patient taking differently: Take 500 mg by mouth two times a day with meals. PRN) fluticasone (FLONASE) 50 mcg/actuation nasal spray Use 2 Sprays in each nostril once daily. Rinse mouth after use. (Patient taking differently: Use 2 sprays in each nostril once daily. Rinse mouth after use. PRN) carvedilol (COREG) 3.125 mg tablet Take 3.125 mg by mouth two times a day with meals. Cholecalciferol, Vitamin D3, 25 mcg (1,000 unit) cap Take 1 capsule by mouth once daily. VITAMIN E 200 UNIT CAP Take 200 Units by mouth once daily. Perry-3 Fatty Acids (FISH OIL) ORAL Cap Take one(1) capsule daily. MULTIVITAMIN TAB Take one(1) tablet daily. CALCIUM + D 600 MG-200 UNIT TAB Take one(1) tablet daily. ASPIRIN 81 MG TAB Take 81 mg by mouth once daily. lactobacillus rhamnosus (CULTURELLE) 10 billion cell capsule Take 1 capsule by mouth once daily. (Patient not taking: Reported on 08/03/2024) Colesevelam (WELCHOL) 3.75 gram pwpk Take 1 Packet by mouth once daily. (Patient not taking: Reported on 08/03/2024) meclizine (ANTIVERT) 12.5 mg tab Take 2 tablets by mouth three times a day as needed. (Patient not taking: Reported on 08/03/2024) No current facility-administered medications on file as of 08/03/2024. Objective There were no vitals taken for this visit. - Cardiovascular: Dorsalis pedis and posterior tibial pulses palpable bilaterally; capillary refill time brisk to bilateral hallux. - Skin: Warm to cool from proximal to distal; hair growth present on bilateral feet; no open sores noted on bilateral feet; small bluish lesion on left medial instep measuring 5mm x 5mm. - Musculoskeletal: - Right Foot: - Tenderness to palpation over right fibular sesamoid, right medial arch, right second metatarsal, and dorsal aspect of right second metatarsal. Labs: Tests: Imaging: - X-ray: Mild spurring noted along the dorsal first metatarsal head. No evidence of fracture or stress reaction. Bone density appears mostly normal. No acute findings. 1. Sesamoiditis of right foot (M25.871) - Pain localized to the right fibular sesamoid, medial arch, and second metatarsal with tenderness on palpation. - X-rays show mild spurring along the dorsal first metatarsal head; no fractures or stress reactions noted. - Provided a gel insert and recommended the us (more content not included)... [facility] History of Present illness Narrative* Zac Oumar - 08/03/2024 10:09 PM EDT Saul Blanco is an 78-year-old female presenting for right foot pain. Right Foot Pain: - Pain in the right hallux and second toe, x5 months. - Pain is both dorsal and plantar, exacerbated by weight-bearing and alleviated by rest. - Intolerant to covers on the foot at night. - Pain is intermittent; trialed ibuprofen with uncertain efficacy. - Difficulty finding comfortable footwear; reports some relief with metatarsal pads. - Denies diabetes mellitus. Musculoskeletal: (+) right foot pain (involving right big toe, second toe, plantar and dorsal aspects) 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 CERVICAL SPONDYLOSIS 02/26/2005 Diarrhea Diverticulosis of colon 01/06/2009 Esophageal reflux Hemorrhage of rectum and anus 12/02/2017 HEMORRHOIDS NOS 11/30/2008 HYPERLIPIDEMIA NEC/NOS 03/18/2005 IBS (irritable bowel syndrome) 01/26/2013 Incontinence of feces 11/30/2008 Incontinence of feces 03/09/2021 Nausea vomiting and diarrhea 04/06/2024 Osteopenia Palpitations 01/13/2012 Perforation of large intestine (HCC) 12/03/2017 Primary osteoarthritis of left hip 03/01/2024 Spondylosis, 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 age 88 Blood Disease Father PE, post MVA, dec. 53yo Breast Cancer Sister Myositis Sister Inclusion Body Myositis None Sister Alzheimer's Disease Sister other (multiple myeloma) Brother ALLERGIES Allergen Reactions Bactrim [Sulfametho* GI Upset nausea Clindamycin Hcl GI Upset Flagyl [Metronidazo* GI Upset Gadolinium-Containi* Hives Gadolinium/Gadavist Trimethoprim Vomiting Levofloxacin GI Upset Outpatient Medications as of 08/03/2024 Medication Sig atorvastatin (LIPITOR) 40 mg tablet TAKE 1 TABLET EVERY DAY AT BEDTIME FOR CHOLESTEROL alendronate (FOSAMAX) 70 mg tablet Take 1 tablet by mouth one time a week. Take with a full glass of water, on an empty stomach; do NOT lie down for 30minutes. cetirizine (ZYRTEC) 10 mg tablet Take 10 mg by mouth as needed for cold/allergy symptoms. naproxen (NAPROSYN) 500 mg tablet Take 1 tablet by mouth two times a day with meals. (Patient taking differently: Take 500 mg by mouth two times a day with meals. PRN) fluticasone (FLONASE) 50 mcg/actuation nasal spray Use 2 Sprays in each nostril once daily. Rinse mouth after use. (Patient taking differently: Use 2 sprays in each nostril once daily. Rinse mouth after use. PRN) carvedilol (COREG) 3.125 mg tablet Take 3.125 mg by mouth two times a day with meals. Cholecalciferol, Vitamin D3, 25 mcg (1,000 unit) cap Take 1 capsule by mouth once daily. VITAMIN E 200 UNIT CAP Take 200 Units by mouth once daily. Perry-3 Fatty Acids (FISH OIL) ORAL Cap Take one(1) capsule daily. MULTIVITAMIN TAB Take one(1) tablet daily. CALCIUM + D 600 MG-200 UNIT TAB Take one(1) tablet daily. ASPIRIN 81 MG TAB Take 81 mg by mouth once daily. lactobacillus rhamnosus (CULTURELLE) 10 billion cell capsule Take 1 capsule by mouth once daily. (Patient not taking: Reported on 08/03/2024) Colesevelam (WELCHOL) 3.75 gram pwpk Take 1 Packet by mouth once daily. (Patient not taking: Reported on 08/03/2024) meclizine (ANTIVERT) 12.5 mg tab Take 2 tablets by mouth three times a day as needed. (Patient not taking: Reported on 08/03/2024) No current facility-administered medications on file as of 08/03/2024. Objective There were no vitals taken for this visit. - Cardiovascular: Dorsalis pedis and posterior tibial pulses palpable bilaterally; capillary refilltime brisk to bilateral hallux. - Skin: Warm to cool from proximal to distal; hair growth present on bilateral feet; no open sores noted on bilateral feet; small bluish lesion on left medial instep measuring 5mm x 5mm. - Musculoskeletal: - Right Foot: - Tenderness to palpation over right fibular sesamoid, right medial arch, right second metatarsal, and dorsal aspect of right second metatarsal. Labs: Tests: Imaging: - X-ray: Mild spurring noted along the dorsal first metatarsal head. No evidence of fracture or stress reaction. Bone density appears mostly normal. No acute findings. 1. Sesamoiditis of right foot (M25.871) - Pain localized to the right fibular sesamoid, medial arch, and second metatarsal with tenderness on palpation. - X-rays show mild spurring along the dorsal first metatarsal head; no fractures or stress reactions noted. - Provided a gel insert and recommended the use of a Dancer Pad to alleviate pressure on the sesamoids. - Prescribed an oral steroid to be taken as directed to reduce inflammation and pain. - Prescription sent to [facility] pharmacy. Attestation Recording using Wiki-PR software for draft documentation of the visit was discussed with the patient/authorized product representative; all questions welcomed and answered. Patient/authorized product representative agreed to proceed Oumar Frank DPM * Arely Beth RN - 08/03/2024 3:05 PM EDT Patient presents with: Right Foot - Established Patient, Pain, Swelling Patient presents for right great toe pain and swelling that has been ongoing for 5 months. States that she has some pain at night with sheets to the top of the foot. Started wearing shoes with more cushion which helps. Xray prior to appointment. PATITO 11/13/21 documented in this encounterOhio[facility]04-[facility] Instructions* Patient Instructions* Oumar Frank - 08/03/2024 3:48 PM EDT Powerstep Original Full length. Can purchase at [facility] [employer] and boots,shoes and more here in [place], [employer] in [employer] or [place]. Also can find in [place] in [facility]. Powersteps can also be purchased online, starting around $45.00 If you have a metatarsal or dancer pad for your feet apply the pad directly to the insole so you can interchange between your shoes. Find a shoe with a removable insole and take this out and replace with your powerstep insole. Always bring powersteps with you when shopping for shoes so that you can make sure that everything fits well together Consider dancer pad on the insert You have been diagnosed with sesamoiditis in your right foot. Use the new gel insert provided with a dancer pad to reduce pressure on the painful area. Start taking the oral steroid exactly as directed on the prescription from your [facility] pharmacy tohelp reduce inflammation. Continue wearing supportive, cushioned shoes (such as SAS, Hoka, Heredia, Asics, or New Balance) to relieve pressure on your foot. Monitor the small bluish mole on your left medial instep. If you notice any changes in its size, shape, or color, please consider having it evaluated by a commercial lines account executive. documented in this encounterOhiohealth O'[facility]len[facility]04-15-2025 NoteHNO ID: [id number] Author: ARELY BETH RN Service: ? Author Type: Registered Nurse Type: Progress Notes Filed: 08/03/2024 22:10 Note Text: Patient presents with: Right Foot - Established Patient, Pain, Swelling Patient presents for right great toe pain and swelling that has been ongoing for 5 months. States that she has some pain at night with sheets to the top of the foot. Started wearing shoes with more cushion which helps. Xray prior to appointment. PATITO 11/13/21[facility]04-15-[facility] History of Present illness Narrative* Major Wan RT(R) - 08/03/2024 2:40 PM EDT Radiology Service Progress Note PATIENT NAME: Fannie Avalos DATE OF SERVICE: August 03, 2024 TIME: 2:34 PM PATIENT IDENTITY VERIFICATION COMPLETED USING TWO (2) IDENTIFIERS: Name and Date of confirmedby patient verbally. FALL SCREENING: Has the patient had 2 falls in the last year or 1 fall with injury or currently using an Ambulatory Assistive Device (Walker, Cane, Wheelchair, Crutches, etc.)? No PATIENT GENDER DATA: Assigned female at . status: : No status:NO. PATIENT RELEVANT IMPLANT DATA REVIEWED: Not Applicable PATIENT PRESENTS WITH AN IMPLANTABLE OR ATTACHED VAT TENDER: No RADIOLOGY DEPARTMENT: General X-ray: Exam(s) Completed: Lower Extremity X- Ray(s): Foot, Right and Wt. Bearing PERIPHERAL IV DATA: Not applicable SIGNED BY: RT Joanie(R) August 03, 2024 2:34 PM documented in this encounterOhiohealth O'[facility]len[facility]04-15-2025 NoteHNO ID: [id number] Author: MAJOR WAN RT(R) Service: Radiology Author Type: Technologist Type: Progress Notes Filed: 08/03/2024 14:45 Note Text: Radiology Service Progress Note PATIENT NAME: Fannie Avalos DATE OF SERVICE: August 03, 2024 TIME: 2:34 PM PATIENT IDENTITY VERIFICATION COMPLETED USING TWO (2) IDENTIFIERS: Name and Date of confirmed by patient verbally. FALL SCREENING: Has the patient had 2 falls in the last year or 1 fall with injury or currently using an Ambulatory Assistive Device (Walker, Cane, Wheelchair, Crutches, etc.)? No PATIENT GENDER DATA: Assigned female at . status: : No status: NO. PATIENT RELEVANT IMPLANT DATA REVIEWED: Not Applicable PATIENT PRESENTS WITH AN IMPLANTABLE OR ATTACHED VAT TENDER: No RADIOLOGY DEPARTMENT: General X-ray: Exam(s) Completed: Lower Extremity X-Ray(s): Foot, Right and Wt. Bearing PERIPHERAL IV DATA: Not applicable SIGNED BY: RT Joanie(Sofi) August 03, 2024 2:[address] [facility]12-30-2024 NoteHNO ID: [id number] Author: CARMEN HDEZ RN Service: ? Author Type: Registered Nurse Type: Progress Notes Filed: 04/19/2024 12:14 Note Text: Transitional Care Management (TCM) Follow-Up Note PCP Update / Actionable Items N/A - No specialty updates needed Patient Source: In-Network Discharge Follow-up outreach: TCM enrolled patient Outreach Summary: Mrs. Avalos states her and her are in [place] on their way to [place] for the winter. Aware TCM is ended due to being out of state. States understanding. Patient discharged from [facility] Discharge date: 04-11-24 Admitted for: Nausea, Vomiting AND Diarrhea Readmission Risk: 9 Value-Based Contract: Tianna NEWMAN Contact: Contact made with patient: Yes Spoke to: Patient Validation: Validated the person spoken to is actively involved in the patient's care. The patient was identified by Name and Date of . Mrs. Avalos states they are on their way to [place] for the winter. Aware TCM will end today.[facility] History of Present illness Narrative* Carmen Hdez RN - 04/19/2024 12:00 PM EST Transitional Care Management (TCM) Follow-Up Note PCP Update / Actionable Items N/A - No specialty updates needed Patient Source: In-Network Discharge Follow-up outreach: TCM enrolled patient Outreach Summary: Mrs. Avalos states her and her are in [place] on their way to [place] for the winter. Aware TCM is ended due to being out of state. States understanding. Patient discharged from [facility] Discharge date: 04-11-24 Admitted for: Nausea, Vomiting & Diarrhea Readmission Risk: 9 Value-Based Contract: Tianna NEWMAN Contact: Contact made with patient: Yes Spoke to: Patient Validation: Validated the person spoken to is actively involved in the patient's care. The patient was identified by Name and Date of . Mrs. Avalos states they are on their way to [place] for the winter. Aware TCM will end today. documented in this encounterOhiohealth O'[facility]12-30-2024 NotePatient Outreach ([facility]) FANNIE AVALOS ([id number]) 1945 F Date Time Provider Department 04/19/24 CARMEN HDEZ During your visit today, we recorded the following information about you: Carmen Hdez RN 04/19/2024 12:14 PM Signed Transitional Care Management (TCM) Follow-Up Note PCP Update / Actionable Items N/A - No specialty updates needed Patient Source: In-Network Discharge Follow-up outreach: TCM enrolled patient Outreach Summary: Mrs. Avalos states her and her are in [place] on their way to [place] for the winter. Aware TCM is ended due to being out of state. States understanding. Patient discharged from [facility] Discharge date: 04-11-24 Admitted for: Nausea, Vomiting AND Diarrhea Readmission Risk: 9 Value-Based Contract: Tianna NEWMAN Contact: Contact made with patient: Yes Spoke to: Patient Validation: Validated the person spoken to is actively involved in the patient's care. The patient was identified by Name and Date of . Mrs. Avalos states they are on their way to [place] for the winter. Aware TCM will end today. Allergies As of Date: 04/19/2024 Noted Allergy Reaction BACTRIM (SULFAMETHOXAZOLE-TRIMETH*02/25/2005 8 - GI Upset Comments: nausea CLINDAMYCIN HCL 09/25/2010 8 - GI Upset FLAGYL (METRONIDAZOLE HCL) 10/19/2009 8 - GI Upset GADOLINIUM-CONTAINING CONTRAST ME*10/28/2017 4 - Hives Comments: Gadolinium/Gadavist TRIMETHOPRIM 12/30/2018 11 - Vomiting LEVOFLOXACIN 12/30/2018 8 - GI Upset Date Reviewed: 04/13/2024 Reviewed by: Catina Reddy, ALFREDO.FINANCE SPECIALIST - Fully Assessed Reason for Visit: Transition Of Care [4074] Cmt: Follow up Prescriptions as of 04/19/2024 - lactobacillus rhamnosus (CULTURELLE) 10 billion cell capsule Take 1 capsule by mouth once daily. - psyllium (METAMUCIL) 3.4 gram packet Take 1 Packet by mouth two times a day. - Colesevelam (WELCHOL) 3.75 gram pwpk Take 1 Packet by mouth once daily. - atorvastatin (LIPITOR) 40 mg tablet TAKE 1 TABLET EVERY DAY AT BEDTIME FOR CHOLESTEROL - meclizine (ANTIVERT) 12.5 mg tab Take 2 tablets by mouth three times a day as needed. - alendronate (FOSAMAX) 70 mg tablet Take 1 tablet by mouth one time a week. Take with a full glass of water, on an empty stomach; do NOT lie down for 30minutes. - cetirizine (ZYRTEC) 10 mg tablet Take 10 mg by mouth once daily. - naproxen (NAPROSYN) 500 mg tablet Take 1 tablet by mouth two times a day with meals. - fluticasone (FLONASE) 50 mcg/actuation nasal spray Use 2 Sprays in each nostril once daily. Rinse mouth after use. - carvedilol (COREG) 3.125 mg tablet - Cholecalciferol, Vitamin D3, 25 mcg (1,000 unit) cap Take 1 capsule by mouth once daily. - VITAMIN E 200 UNIT CAP Take 200 Units by mouth once daily. - Perry-3 Fatty Acids (FISH OIL) ORAL Cap Take one(1) capsule daily. - MULTIVITAMIN TAB Take one(1) tablet daily. - CALCIUM + D 600 MG-200 UNIT TAB Take one(1) tablet daily. - ASPIRIN 81 MG TAB Take 81 mg by mouth once daily. Problem List As Of Date 04/19/2024 Noted Resolved Cervical spondylosis without myelopathy [M47.81*02/26/2005 10/04/2013 Hyperlipidemia [E78.5] 03/18/2005 Family history of malignant neoplasm of breast *10/16/2005 02/27/2022 Unspecified Chest Pain [R07.9] 12/03/2005 12/07/2009 Other Malaise and Fatigue [R53.81, R53.83] 12/03/2005 12/07/2009 Anxiety state, unspecified [F41.1] 01/15/2007 01/13/2012 Benign neoplasm of colon [D12.6] 11/30/2008 02/27/2022 Incontinence of Feces [787.6] 11/30/2008 12/07/2009 Unspecified hemorrhoids without mention of comp*11/30/2008 10/04/2013 Allergic rhinitis [J30.9] 11/30/2008 Diverticulosis of colon [K57.30] 01/06/2009 12/31/2016 Rectal bleeding [K62.5] 03/09/2009 01/13/2012 Spondylosis, 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] 12/07/2009 10/04/2013 Enthesopathy of hip region [M76.899] 02/04/2011 01/13/2012 Diarrhea [R19.7] 04/10/2024 Anal fissure [K60.2] 03/07/2011 02/08/2014 Palpitations [R00.2] 01/13/2012 03/29/2024 IBS (irritable bowel syndrome) [K58.9] 01/26/2013 Rectocele [N81.6] 03/02/2013 10/04/2013 Age-related osteoporosis without current pathol*10/27/2013 Carotid disease, bilateral (HCC) [I77.9] 01/03/2016 05/14/2019 Benign meningioma of brain (HCC) [D32.0] 10/28/2017 Muscle weakness [M62.81] 11/25/2018 05/14/2019 Carotid artery stenosis [I65.29] 05/14/2019 Incontinence of feces [R15.9] 03/09/2021 11/12/2022 Benign neoplasm of meninges (HCC) [D32.9] 09/13/2021 Acute left-sided thoracic back pain [M54.6] 11/26/2021 02/27/2022 Left Achilles tendinitis [M76.62] 11/26/2021 02/27/2022 Memory disturbance [R41.3] 02/28/2022 Left leg weakness [R29.898] 03/01/2024 Primary osteoarthritis of left hip [M16.12] 03/01/2024 Carpal tunnel syndrome on right [G56.01] 03/29/2024 Nausea AND vomiting [R11.2] 04/06/2024 04/10/2024 Abdominal pain [R10.9] 04/06/2024 12 (more content not included)...[facility] NoteHNO ID: [id number] Author: CATINA REDDY APRN.FINANCE SPECIALIST Service: ? Author Type: Nurse Practitioner Type: Progress Notes Filed: 04/13/2024 10:06 Note Text: Transitional Care Management Progress Note The patients TCM visit was performed within the 7 days of discharge. Patient's Date of discharge: 04/11/24 Date of initial coordinator contact after discharge: 04/12/24 Discharge diagnosis: ileus Medication review completed Yes Provider Documentation: CC: Patient presents with: Transition Of Care: [facility] discharged on 04/11/24. Partial small bowel obstruction. No surgery Denies pain but is questioning symptoms of indigestion HPI Fannie Avalos is a 78 year old female who presents today for above. Admitted to [facility] 04/06 to 04/11 for SBO vs ileus. She presented to the ER on 04/06/2024 with a complaint of nausea, vomiting, diarrhea and abdominal pain which started the night before. CT abdomen and pelvis showed nonspecific nondistended fluid-filled loops of small bowel no abnormal wall thickening likely secondary to adynamic ileus however partial SBO cannot be ruled out. Patient was seen by general surgery but did not have any surgical needs. Evaluated by GI and started on started on cholestyramine and metamucil which were continued at discharge. Patient reports she is feeling better but still fatigued. Appetite has improved somewhat. Denies abdominal pain, nausea, vomiting, diarrhea, constipation, black/bloody stools, bloating. She is passing gas. She has not yet filled the cholestyramine because it was not in stock at her pharmacy. She is taking Benefiber that she already had at home instead of the Metamucil. She did have heartburn last night but wasn't sure if she could take TUMS and it resolved on its own. She is wondering if some of her symptoms were due to a stomach bug as both her and son developed similar symptoms but not as severe. Review of Systems Constitutional: Positive for appetite change and fatigue. Negative for chills, diaphoresis, fever and unexpected weight change. Respiratory: Negative for cough, shortness of breath and wheezing. Neurological: Negative for dizziness, syncope, weakness, light-headedness and headaches. 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 CERVICAL SPONDYLOSIS 02/26/2005 Diarrhea Diverticulosis of colon 01/06/2009 Esophageal reflux Hemorrhage of rectum and anus 12/02/2017 HEMORRHOIDS NOS 11/30/2008 HYPERLIPIDEMIA NEC/NOS 03/18/2005 IBS (irritable bowel syndrome) 01/26/2013 Incontinence of feces 11/30/2008 Incontinence of feces 03/09/2021 Nausea vomiting and diarrhea 04/06/2024 Osteopenia Palpitations 01/13/2012 Perforation of large intestine (HCC) 12/03/2017 Primary osteoarthritis of left hip 03/01/2024 Spondylosis, 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 TIA (transient ischemic attack) 06/17/2017 [place], [place] PAST SURGICAL HISTORY Procedure Laterality Date CHOLECYSTECTOMY HX 03/2018 COLONOSCOPY FLX DX W/COLLJ SPEC WHEN PFRMD 10/20/2003 Colonoscopy COLONOSCOPY FLX DX W/COLLJ SPEC WHEN PFRMD 01/06/2009 Extensive diverticulosis/hemorrhoids COLONOSCOPY FLX DX W/COLLJ SPEC WHEN PFRMD 07/24/2012 Colonoscopy in [place] COLSC FLEXIBLE W/CONTROL BLEEDING ANY METHOD 12/02/2017 laser of cecal AVM DRAIN ABDOMINAL ABSCESS, PERCUTANEOUS 12/15/2017 perianastomotic abscess EGD 12/02/2017 ESOPHAGOGASTRODUODENOSCOPY TRANSORAL DIAGNOSTIC 07/03/2012 EGD in [place] GAMMA KNIFE 1FX TX DELIVERY 02/12/2022 x 3 on 01/15/22; 01/29/22; 02/12/22 HEMORRHOIDECTOMY INT AND XTRNL 2/> COLUMN/HI 10/26/2009 LAMINECTOMY W/RMVL ABNORMAL FACETS LUMBAR 07/08/2011 [place] LAPAROSCOPY COLECTOMY PARTIAL W/ANASTOMOSIS 02/02/2009 LAPAROSCOPY COLECTOMY PARTIAL W/ANASTOMOSIS Right 12/03/2017 LAPS MOBLJ SPLENIC FLXR PFRMD W/PRTL COLECTOMY 02/02/2009 PAST SURGICAL HISTORY OF 1964 ovarian cyst removed PAST SURGICAL HISTORY OF 2001 BREAST BIOPSY--BENIGN PAST SURGICAL HISTORY OF 03/28/2018 Gallbladder removed SIGMOIDOSCOPY FLX CONTROL BLEEDING 03/22/2009 Granulation tissue at anastomosis SIGMOIDOSCOPY FLX W/BIOPSY SINGLE/MULTIPLE 02/28/2011 TOTAL ABDOMINAL HYSTERECT W/WO RMVL TUBE OVARY 02/1990 Hysterectomy, TERI, BSO ALLERGIES Bactrim [Sulfamethoxazole-Trimethoprim], Clindamycin Hcl, Flagyl [Metronidazole Hcl], Gadolinium-Containing Contrast Media, Trimethoprim, and Levofloxacin MEDICATIONS lactobacillus rhamnosus (CULTURELLE) 10 billion cell capsule Take 1 capsule by mouth once daily. psyllium (METAMUCIL) 3.4 gram packet Take 1 Packet by mouth two times a day. Colesevelam (WELCHOL) 3.75 gram pwpk Take 1 Packet by mouth once daily. atorvastatin (LIPI (more content not included)...[facility] 04-13-2024 History of Present illness Narrative* Catina Reddy, SENIOR GAMES TECHNICIAN.FINANCE SPECIALIST - 04/13/2024 9:33 AM EST Transitional Care Management Progress Note The patients TCM visit was performed within the 7 days of discharge. Patient's Date of discharge: 04/11/24 Date of initial coordinator contact after discharge: 04/12/24 Discharge diagnosis: ileus Medication review completed Yes Provider Documentation: CC: Patient presents with: Transition Of Care: [facility] discharged on 04/11/24. Partial small bowel obstruction. No surgery Denies pain but is questioning symptoms of indigestion HPI Fannie Avalos is a 78 year old female who presents today for above. Admitted to [facility] 04/06 to 04/11 for SBO vs ileus. She presented to the ER on 04/06/2024 with a complaint of nausea, vomiting, diarrhea and abdominal pain which started the night before. CT abdomen and pelvis showed nonspecific nondistended fluid-filled loops of small bowel no abnormal wall thickening likely secondary to adynamic ileus however partial SBO cannot be ruled out. Patient wasseen by general surgery but did not have any surgical needs. Evaluated by GI and started on startedon cholestyramine and metamucil which were continued at discharge. Patient reports she is feeling better but still fatigued. Appetite has improved somewhat. Denies abdominal pain, nausea, vomiting, diarrhea, constipation, black/bloody stools, bloating. She is passing gas. She has not yet filled the cholestyramine because it was not in stock at her pharmacy. She istaking Benefiber that she already had at home instead of the Metamucil. She did have heartburn lastnight but wasn't sure if she could take TUMS and it resolved on its own. She is wondering if some of her symptoms were due to a stomach bug as both her and son developed similar symptoms but not as severe. Review of Systems Constitutional: Positive for appetite change and fatigue. Negative for chills, diaphoresis, fever and unexpected weight change. Respiratory: Negative for cough, shortness of breath and wheezing. Neurological: Negative for dizziness, syncope, weakness, light-headedness and headaches. 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 CERVICAL SPONDYLOSIS 02/26/2005 Diarrhea Diverticulosis of colon 01/06/2009 Esophageal reflux Hemorrhage of rectum and anus 12/02/2017 HEMORRHOIDS NOS 11/30/2008 HYPERLIPIDEMIA NEC/NOS 03/18/2005 IBS (irritable bowel syndrome) 01/26/2013 Incontinence of feces 11/30/2008 Incontinence of feces 03/09/2021 Nausea vomiting and diarrhea 04/06/2024 Osteopenia Palpitations 01/13/2012 Perforation of large intestine (HCC) 12/03/2017 Primary osteoarthritis of left hip 03/01/2024 Spondylosis, 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 TIA (transient ischemic attack) 06/17/2017 [place] PAST SURGICAL HISTORY Procedure Laterality Date CHOLECYSTECTOMY HX 03/2018 COLONOSCOPY FLX DX W/COLLJ SPEC WHEN PFRMD 10/20/2003 Colonoscopy COLONOSCOPY FLX DX W/COLLJ SPEC WHEN PFRMD 01/06/2009 Extensive diverticulosis/hemorrhoids COLONOSCOPY FLX DX W/COLLJ SPEC WHEN PFRMD 07/24/2012 [place] COLSC FLEXIBLE W/CONTROL BLEEDING ANY METHOD 12/02/2017 laser of cecal AVM DRAIN ABDOMINAL ABSCESS, PERCUTANEOUS 12/15/2017 perianastomotic abscess EGD 12/02/2017 ESOPHAGOGASTRODUODENOSCOPY TRANSORAL DIAGNOSTIC 07/03/2012 [place] GAMMA KNIFE 1FX TX DELIVERY 02/12/2022 x 3 on 01/15/22; 01/29/22; 02/12/22 HEMORRHOIDECTOMY INT & XTRNL 2/> COLUMN/HI 10/26/2009 LAMINECTOMY W/RMVL ABNORMAL FACETS LUMBAR 07/08/2011 [place] LAPAROSCOPY COLECTOMY PARTIAL W/ANASTOMOSIS 02/02/2009 LAPAROSCOPY COLECTOMY PARTIAL W/ANASTOMOSIS Right 12/03/2017 LAPS MOBLJ SPLENIC FLXR PFRMD W/PRTL COLECTOMY 02/02/2009 PAST SURGICAL HISTORY OF 1964 ovarian cyst removed PAST SURGICAL HISTORY OF 2001 BREAST BIOPSY--BENIGN PAST SURGICAL HISTORY OF 03/28/2018 Gallbladder removed SIGMOIDOSCOPY FLX CONTROL BLEEDING 03/22/2009 Granulation tissue at anastomosis SIGMOIDOSCOPY FLX W/BIOPSY SINGLE/MULTIPLE 02/28/2011 TOTAL ABDOMINAL HYSTERECT W/WO RMVL TUBE OVARY 02/1990 Hysterectomy, TERI, BSO ALLERGIES Bactrim [Sulfamethoxazole-Trimethoprim], Clindamycin Hcl, Flagyl [Metronidazole Hcl], Gadolinium-Containing Contrast Media, Trimethoprim, and Levofloxacin MEDICATIONS lactobacillus rhamnosus (CULTURELLE) 10 billion cell capsule Take 1 capsule by mouth once daily. psyllium (METAMUCIL) 3.4 gram packet Take 1 Packet by mouth two times a day. Colesevelam (WELCHOL) 3.75 gram pwpk Take 1 Packet by mouth once daily. atorvastatin (LIPITOR) 40 mg tablet TAKE 1 TABLET EVERY DAY AT BEDTIME FOR CHOLESTEROL meclizine (ANTIVERT) 12.5 mg tab Take 2 tablets by mouth three times a day as needed. alendronate (FOSAMAX) 70 mg tablet Take 1 tablet by mouth one time a week. Take with a full glass of water, on an empty stomach; do NOT lie down for 30minutes. cetirizine (ZYRTEC) 10 mg tablet Take 10 mg by mouth once daily. naproxen (NAPROSYN) 500 mg tablet Take 1 tablet by mouth two times a day with meals. fluticasone (FLONASE) 50 mcg/actuation nasal spray Use 2 Sprays in each nostril once daily. Rinse mouth after use. carvedilol (COREG) 3.125 mg tablet Cholecalciferol, Vitamin D3, 25 mcg (1,000 unit) cap Take 1 capsule by mouth once daily. VITAMIN E 200 UNIT CAP Take 200 Units by mouth once daily. Perry-3 Fatty Acids (FISH OIL) ORAL Cap Take one(1) capsule daily. MULTIVITAMIN TAB Take one(1) tablet daily. CALCIUM + D 600 MG-200 UNIT TAB Take one(1) tablet daily. ASPIRIN 81 MG TAB Take 81 mg by mouth once daily. FAMILY HISTORY Problem Relation Age of Onset Breast Cancer Mother dec. age 88 Blood Disease Father PE, post MVA, dec. 53yo Breast Cancer Sister Myositis Sister Inclusion Body Myositis None Sister Alzheimer's Disease Sister other (multiple myeloma) Brother Social History Tobacco Use Smoking status: Never Smokeless tobacco: Never Vaping Use Vaping status: Never Used Substance Use Topics Alcohol use: No Drug use: No BP 118/60 Pulse 81 Wt 61.3 kg (135 lb 2.3 oz) SpO2 98% BMI 23.94 kg/m Physical Exam Vitals reviewed. Constitutional: Appearance: Normal appearance. Cardiovascular: Rate and Rhythm: Normal rate and regular rhythm. Heart sounds: Normal heart sounds. No murmur heard. Pulmonary: Effort: Pulmonary effort is normal. Breath sounds: Normal breath sounds. No wheezing, rhonchi or rales. Abdominal: General: Bowel sounds are normal. There is no distension. Palpations: Abdomen is soft. There is no hepatomegaly, splenomegaly or mass. Tenderness: There is abdominal tenderness (generalized, mild). There is no guarding or rebound. Skin: General: Skin is warm and dry. Neurological: Mental Status: She is alert. Psychiatric: Mood and Affect: Mood normal. I have reviewed the patient s records from [facility] including diagnostic testing performed, their discharge medications, and my assessment and plan with the patient and any family members present at today s visit. ASSESSMENT/PLAN: 1. Abdominal pain, unspecified abdominal location - ICD9: 789.00, ICD10: R10.9 (primary diagnosis) Symptoms have resolved. No alarm symptoms or exam findings. Abdominal exam benign. Continue with medications as prescribed at discharge. Okay to take Benefiber instead of Metamucil. Cautioned patientthat if she develops constipation she should stop the cholestyramine otherwise she can finish out the prescription and discontinued after that. Follow-up as needed for any recurrent or persistent symptoms 2. Diarrhea, unspecified type - ICD9: 787.91, ICD10: R19.7 As above Prescription instructions reviewed with patient as applicable. Potential red flag symptoms discussed with the patient. Reviewed appropriate action plan to take if red flag symptoms occur. Patient agreeable to treatment plan. Catina Reddy APRN.FINANCE SPECIALIST documented in this encounterOhio[facility]24 NoteHNO ID: [id number] Author: CARMEN HDEZ RN Service: ? Author Type: Registered Nurse Type: Progress Notes Filed: 04/12/2024 10:22 Note Text: Transition Care Management (TCM) Initial Outreach PCP Update / Actionable Items N/A - No specialty updates needed Patient Source: In-Network Discharge Initial outreach: TCM discharge report Outreach Summary: Feeling better since leaving the hospital. Weakness is improving. Eating and drinking. Encouraged hydration, eating and activity as tolerated to keep bowels moving. Had a large bowel movement this morning. Has PCP hospital follow up scheduled for tomorrow. Getting ready to go to [place] for the winter. Plan is to leave for [place] on 04-22-24. Patient discharged from [facility] Discharge date: 04-11-24 Admitted for: Partial Small Bowel Obstruction Readmission Risk: 9 Value-Based Contract: Lynne NEWMAN Contact: Contact made with patient: Yes Hi, my name is Carmen Hdez RN and I am calling from the [facility] on behalf of your Primary Care Provider, Gavin Tran MD. I understand you were recently in the hospital, so I am calling to check in with you to ensure you are feeling well now that you are home. May I ask you a few questions related to your hospital stay and well-being? Yes Spoke to: Patient Validation: Validated the person spoken to is actively involved in the patient's care. The patient was identified by Name and Date of . Symptoms: Are you feeling about the same, better or worse since leaving the hospital? Better Medications: Do you have any questions about taking your medications, including which medications you should be on, or do you need refills on your medications? No Medication Review: Declined at this time per patient preference Discharge Instructions: Your Discharge Instructions / After Visit Summary (AVS) are important in guiding you through the recovery process. Do you have any questions related to your discharge instructions? No Home Care: Were you discharged with home care? No Equipment: Do you have all the necessary equipment and supplies needed at your home? Yes No equipment needed Social: We would like to make sure you have what you need so that your basics needs are met - including your personal safety, food, housing and medications. Would you like to speak with a social work steam conditioner operator to help give you support for any of these needs? No It can be normal to feel anxious or down during a time like this. Would you like to talk to a mental health professional about how you have been feeling? No Action Taken: No needs verbalized. No action required. Follow-Up Appointment: [Appointment / TCM Follow-up within 14 days] I would like to help you schedule a hospital follow-up virtual or telephone visit with your PCP. This is a great way for you to connect with your provider to ensure you have safely transitioned home. If you are agreeable, I will send your request to a flight crew scheduler who will contact and assist you with that appointment. This will give you an opportunity to ask any questions or address any concerns you may have with your PCP. Inform the patient that if they have any questions or concerns prior to that appointment, to call their PCP's office right away. Appointment Action: No action required; patient already has appointment scheduled. Education Patient and family educated on issues/questions related to reason for admission, transition of care topics, and follow-up needed upon discharge. Utilization Education - Where to go for Care Where to Go for Care Targets addressed / completed during outreach: Contact patient within two (2) business days Patient has TCM appointment with PC within 14 days Outreach Outcome: Enrolled in TCM Care Management partners utilized: N/A Carmen Hdez RN April 12, 2024 9:52 [facility]12-23-2024 History of Present illness Narrative* Carmen Hdez RN - 04/12/2024 9:48 AM EST Transition Care Management (TCM) Initial Outreach PCP Update / Actionable Items N/A - No specialty updates needed Patient Source: In-Network Discharge Initial outreach: TCM discharge report Outreach Summary: Feeling better since leaving the hospital. Weakness is improving. Eating and drinking. Encouraged hydration, eating and activity as tolerated to keep bowels moving. Had a large bowel movement this morning. Has PCP hospital follow up scheduled for tomorrow. Getting ready to go to [place] for the winter. Plan is to leave for [place] on 04-22-24. Patient discharged from [facility] Discharge date: 04-11-24 Admitted for: Partial Small Bowel Obstruction Readmission Risk: 9 Value-Based Contract: Lynne NEWMAN Contact: Contact made with patient: Yes Hi, my name is Carmen Hdez RN and I am calling from the [facility] on behalf of your Primary Care Provider, Gavin Tran MD. I understand you were recently in the hospital, so I am calling to check in with you to ensure you are feeling well now that you are home. May I ask you a few questions related to your hospital stay and well-being? Yes Spoke to: Patient Validation: Validated the person spoken to is actively involved in the patient's care. The patient was identified by Name and Date of . Symptoms: Are you feeling about the same, better or worse since leaving the hospital? Better Medications: Do you have any questions about taking your medications, including which medications you should be on, or do you need refills on your medications? No Medication Review: Declined at this time per patient preference Discharge Instructions: Your Discharge Instructions / After Visit Summary (AVS) are important in guiding you through the recovery process. Do you have any questions related to your discharge instructions? No Home Care: Were you discharged with home care? No Equipment: Do you have all the necessary equipment and supplies needed at your home? Yes No equipment needed Social: We would like to make sure you have what you need so that your basics needs are met - including your personal safety, food, housing and medications. Would you like to speak with a social work steam conditioner operator to help give you support for any of these needs? No It can be normal to feel anxious or down during a time like this. Would you like to talk to a mental health professional about how you have been feeling? No Action Taken: No needs verbalized. No action required. Follow-Up Appointment: [Appointment / TCM Follow-up within 14 days] I would like to help you schedule a hospital follow-up virtual or telephone visit with your PCP. This is a great way for you to connect with your provider to ensure you have safely transitioned home.If you are agreeable, I will send your request to a flight crew scheduler who will contact and assist you with that appointment. This will give you an opportunity to ask any questions or address any concerns youmay have with your PCP. Inform the patient that if they have any questions or concerns prior to that appointment, to call their PCP's office right away. Appointment Action: No action required; patient already has appointment scheduled. Education Patient and family educated on issues/questions related to reason for admission, transition of caretopics, and follow-up needed upon discharge. Utilization Education - Where to go for Care Where to Go for Care Targets addressed / completed during outreach: Contact patient within two (2) business days Patient has TCM appointment with PC within 14 days Outreach Outcome: Enrolled in TCM Care Management partners utilized: N/A Carmen Hdez RN April 12, 2024 9:52 AM documented in this encounterOhio[facility]12-23-2024 NotePatient Outreach ([facility]) FANNIE AVAOLS ([id number]) 1945 F Date Time Provider Department 04/12/24 CARMEN HDEZ During your visit today, we recorded the following information about you: Carmen Hdez, RN 04/12/2024 10:22 AM Signed Transition Care Management (TCM) Initial Outreach PCP Update / Actionable Items N/A - No specialty updates needed Patient Source: In-Network Discharge Initial outreach: TCM discharge report Outreach Summary: Feeling better since leaving the hospital. Weakness is improving. Eating and drinking. Encouraged hydration, eating and activity as tolerated to keep bowels moving. Had a large bowel movement this morning. Has PCP hospital follow up scheduled for tomorrow. Getting ready to go to [place] for the winter. Plan is to leave for [place] on 04-22-24. Patient discharged from [facility] Discharge date: 04-11-24 Admitted for: Partial Small Bowel Obstruction Readmission Risk: 9 Value-Based Contract: Lynne NEWMAN Contact: Contact made with patient: Yes Hi, my name is Carmen Hdez, RN and I am calling from the [facility] on behalf of your Primary Care Provider, Gavin Tran MD. I understand you were recently in the hospital, so I am calling to check in with you to ensure you are feeling well now that you are home. May I ask you a few questions related to your hospital stay and well-being? Yes Spoke to: Patient Validation: Validated the person spoken to is actively involved in the patient's care. The patient was identified by Name and Date of . Symptoms: Are you feeling about the same, better or worse since leaving the hospital? Better Medications: Do you have any questions about taking your medications, including which medications you should be on, or do you need refills on your medications? No Medication Review: Declined at this time per patient preference Discharge Instructions: Your Discharge Instructions / After Visit Summary (AVS) are important in guiding you through the recovery process. Do you have any questions related to your discharge instructions? No Home Care: Were you discharged with home care? No Equipment: Do you have all the necessary equipment and supplies needed at your home? Yes No equipment needed Social: We would like to make sure you have what you need so that your basics needs are met - including your personal safety, food, housing and medications. Would you like to speak with a social work steam conditioner operator to help give you support for any of these needs? No It can be normal to feel anxious or down during a time like this. Would you like to talk to a mental health professional about how you have been feeling? No Action Taken: No needs verbalized. No action required. Follow-Up Appointment: [Appointment / TCM Follow-up within 14 days] I would like to help you schedule a hospital follow-up virtual or telephone visit with your PCP. This is a great way for you to connect with your provider to ensure you have safely transitioned home. If you are agreeable, I will send your request to a flight crew scheduler who will contact and assist you with that appointment. This will give you an opportunity to ask any questions or address any concerns you may have with your PCP. Inform the patient that if they have any questions or concerns prior to that appointment, to call their PCP's office right away. Appointment Action: No action required; patient already has appointment scheduled. Education Patient and family educated on issues/questions related to reason for admission, transition of care topics, and follow-up needed upon discharge. Utilization Education - Where to go for Care Where to Go for Care Targets addressed / completed during outreach: Contact patient within two (2) business days Patient has TCM appointment with PC within 14 days Outreach Outcome: Enrolled in TCM Care Management partners utilized: N/A Carmen Hdez RN April 12, 2024 9:52 AM Allergies As of Date: 04/12/2024 Noted Allergy Reaction BACTRIM (SULFAMETHOXAZOLE-TRIMETH*02/25/2005 8 - GI Upset Comments: nausea CLINDAMYCIN HCL 09/25/2010 8 - GI Upset FLAGYL (METRONIDAZOLE HCL) 10/19/2009 8 - GI Upset GADOLINIUM-CONTAINING CONTRAST ME*10/28/2017 4 - Hives Comments: Gadolinium/Gadavist TRIMETHOPRIM 12/30/2018 11 - Vomiting LEVOFLOXACIN 12/30/2018 8 - GI Upset Date Reviewed: 04/10/2024 Reviewed by: Marixa Dixon, FOREIGN - Fully Assessed Reason for Visit: Transition Of Care [4074] Cmt: Initial Prescriptions as of 04/13/2024 - lactobacillus rhamnosus (CULTURELLE) 10 billion cell capsule Take 1 capsule by mouth once daily. - psyllium (METAMUCIL) 3.4 gram packet Take 1 Packet by mouth two times a day. - Colesevelam (WELCHOL) 3.75 gram pwpk Take 1 Packet by mouth once daily. - atorvastatin (LIPITOR) 40 mg (more content not included)...[facility]12-[facility] NoteHNO ID: [id number] Author: LORNA CONTRERAS MD Service: Hospital Medicine Author Type: Physician Type: Progress Notes Filed: 04/10/2024 00:44 Note Text: DEPARTMENT OF HOSPITAL MEDICINE PROGRESS NOTE SERVICE DATE: 04/09/2024 SERVICE TIME: 5:17 PM Hospital Medicine/Primary Attending: Lorna Contreras MD NIGHT AND WEEKEND COVERAGE: [place] COVERAGE: Days: [id number], please page attending physician. Nights: [phone], please page [place] Hospital[facility] Night coverage pager [phone]. Subjective INTERVAL HPI: Patient is mildly better with less diarrhea and urgency. C.Diff is negative. Will advance diet and will consult GI. Started on cholestyramine and metamucil. No f/c/n/v. No SOB. Current Facility-Administered Medications Medication Dose Route Frequency NaCl 0.9% iv flush bag 20 mL INTRAVENOUS PRN ondansetron orally disintegrating 4 mg tab(s) (ZOFRAN ODT) 4 mg ORAL q 6 H PRN atorvastatin 40 mg tab(s) (LIPITOR) 40 mg ORAL AT BEDTIME carvedilol 3.125 mg tab(s) (COREG) 3.125 mg ORAL BID w MEALS potassium chloride ER 40 mEq tab(s) (KLOR-CON) 40 mEq ORAL DAILY super butt paste TOPICAL PRN psyllium 1 Packet (METAMUCIL) 1 Packet ORAL BID lactobacillus rhamnosus 10 billion cell (CULTURELLE) capsule 1 capsule ORAL DAILY cholestyramine 4 g packet (QUESTRAN) 4 g ORAL BID w MEALS Objective PHYSICAL EXAM: BP 113/50 Pulse 80 Temp (Src) 98.4 (Temporal Artery) Resp 16 Ht 5' 3 (1.60m) Wt 135 lb 9.3 oz (61.5kg) SpO2 98% BMI 24.02 kg/(m2). O2 Therapy: Room Air Physical Exam Performed GENERAL: Alert, no distress, cooperative SKIN: Skin color, texture, turgor normal. No rashes or lesions. HEAD/SINUSES: No significant findings EYES: PERRLA, EOMI LUNGS: Lungs clear to auscultation, Good diaphragmatic excursion CARDIAC: Normal S1 and S2; no rubs, murmurs, or gallops ABDOMEN: Abdomen soft, non-tender, BS normal, No masses or organomegaly EXTREMITIES: Extremities normal, no deformities, edema, clubbing or skin discoloration. Good capillary refill., No ulcers NEURO: Cranial nerves II-XII intact PULSES: 2+ radial, 2+ carotid Lines, Drains, and Airways Line Name Duration Peripheral 04/06/24 1010 Left Antecubital 20 Gauge 3 days Reviewed lines and needs to be continued: REASONS: Intravenous fluids and Telemetry DATA: Diagnostic tests reviewed for today's visit: Recent Labs 04/09/2451604/08/2445204/07/2445004/06/24 1013 WBC 5.35 3.77 2.82* 9.00 RBC 3.75* 3.88* 3.40* 4.31 HB 12.5 13.1 11.3* 14.2 HCT 36.4 38.8 34.0* 43.3 PLT 201 176 147* 199 MCV 97.1 100.0 100.0 100.5* MCH 33.3 33.8 33.2 32.9 MPV 10.0 10.1 9.9 9.6 ABSNEUT -- -- -- 8.40* NEUTP -- -- -- 93.4 LYMPHP -- -- -- 2.0 MONOP -- -- -- 4.4 EODINP -- -- -- 0.1 Recent Labs 04/09/2451604/08/2445204/07/24 04504/06/24 1013 GLUC 92 74 92 130* NA 138 139 138 140 K 3.7 3.9 3.6* 3.8 CHLOR 109* 102 105 102 CO2 21* 22 22 27 CREAT 0.54* 0.52* 0.56* 0.80 BUN 11 16 25* 33* ANION 8 15 11 11 CA 8.0* 7.7* 7.5* 9.1 TPROT -- -- -- 6.6 ALB -- -- -- 4.2 TBILI -- -- -- 1.7* ALKPHOS -- -- -- 82 AST -- -- -- 25 ALT -- -- -- 20 PEPE High Sensitivity Date Value Ref Range Status 12/31/2023 9 <12 ng/L Final 12/31/2023 10 <12 ng/L Final 01/15/2022 <6 <12 ng/L Final Comment: When assessing risk for acute coronary syndromes: In patients undergoing blood draw greater than or equal to 2 hours from symptom onset, with history of very low to moderate risk and non-ischemic ECG, an initial hs-Troponin T less than 12 ng/L AND a 1 hour delta hs-Troponin T less than 3 ng/L should be considered very low risk for 30 day MACE. Most recent imaging Assessment/Plan Problem List Assessment AND Plan Diarrhea Nausea AND vomiting Abdominal pain Partial small bowel obstruction (HCC) HOSPITAL COURSE: Fannie Avalos is a 78 year old female presented with past medical history of HLD, OA, bowel perforation x 2 after colonoscopy presented to the ER on 04/06/2024 with a complaint of nausea, vomiting, diarrhea and abdominal pain which started last night. CT abdomen and pelvis showed nonspecific nondistended fluid-filled loops of small bowel no abnormal wall thickening likely secondary to adynamic ileus however partial SBO cannot be ruled out. Principal Problem: Partial small bowel obstruction (HCC) Nausea vomiting and diarrhea Diarrhea Abdominal pain Assessment AND Plan: -C. difficile, stool studies - negative -FECAL LACTOFERRIN/LEUKOCYTES -Start pantoprazole 40 mg twice daily -Check EKG prior to starting nausea medications -initially N.p.o. - now advanced to GI soft diet -Consult general surgery- not requiring surgery. - consult GI -Patient wants to be full code -started on cholestyramine and metamucil. Addendum Hypokalemia - not POA Lorna Contreras MD April 10, 2024 12:44 AM Medication and Non-Pharmacologic VTE Prophylaxis/Anticoagulant (more content not included)...[facility] [id number] NoteHNO ID: [id number] Author: LORNA CONTRERAS MD Service: Hospital Medicine Author Type: Physician Type: Progress Notes Filed: 04/08/2024 12:13 Note Text: DEPARTMENT OF HOSPITAL MEDICINE PROGRESS NOTE SERVICE DATE: 04/08/2024 SERVICE TIME: 12:11 PM Hospital Medicine/Primary Attending: Lorna Contreras MD NIGHT AND WEEKEND COVERAGE: [place] COVERAGE: Days: [phone], please page attending physician. Nights: [phone], please page [place] Hospitalist Night coverage pager [phone]. Subjective INTERVAL HPI: Patient is mildly better. Still having bright orange loose stools that comes very quickly. C.Diff is negative. Will advance diet and will consult GI. No f/c/n/v. No SOB. Current Facility-Administered Medications Medication Dose Route Frequency NaCl 0.9% iv flush bag 20 mL INTRAVENOUS PRN ondansetron orally disintegrating 4 mg tab(s) (ZOFRAN ODT) 4 mg ORAL q 6 H PRN pantoprazole 40 mg injection (PROTONIX) 40 mg INTRAVENOUS BID AC (0600/1600) atorvastatin 40 mg tab(s) (LIPITOR) 40 mg ORAL AT BEDTIME carvedilol 3.125 mg tab(s) (COREG) 3.125 mg ORAL BID w MEALS potassium chloride ER 40 mEq tab(s) (KLOR-CON) 40 mEq ORAL DAILY Objective PHYSICAL EXAM: BP 92/71 Pulse 77 Temp (Src) 98.4 (Oral) Resp 14 Ht 5' 3 (1.60m) Wt 135 lb 9.3 oz (61.5kg) SpO2 99% BMI 24.02 kg/(m2). O2 Therapy: Room Air Physical Exam Performed GENERAL: Alert, no distress, cooperative SKIN: Skin color, texture, turgor normal. No rashes or lesions. HEAD/SINUSES: No significant findings EYES: PERRLA, EOMI LUNGS: Lungs clear to auscultation, Good diaphragmatic excursion CARDIAC: Normal S1 and S2; no rubs, murmurs, or gallops ABDOMEN: Abdomen soft, non-tender, BS normal, No masses or organomegaly EXTREMITIES: Extremities normal, no deformities, edema, clubbing or skin discoloration. Good capillary refill., No ulcers NEURO: Cranial nerves II-XII intact PULSES: 2+ radial, 2+ carotid Lines, Drains, and Airways Line Name Duration Peripheral 04/06/24 1010 Left Antecubital 20 Gauge 2 days Reviewed lines and needs to be continued: REASONS: Intravenous fluids and Telemetry DATA: Diagnostic tests reviewed for today's visit: Recent Labs 04/08/243 04/07/24 0451 04/06/24 1013 WBC 3.77 2.82* 9.00 RBC 3.88* 3.40* 4.31 HB 13.1 11.3* 14.2 HCT 38.8 34.0* 43.3 PLT 176 147* 199 MCV 100.0 100.0 100.5* MCH 33.8 33.2 32.9 MPV 10.1 9.9 9.6 ABSNEUT -- -- 8.40* NEUTP -- -- 93.4 LYMPHP -- -- 2.0 MONOP -- -- 4.4 EODINP -- -- 0.1 Recent Labs 04/08/24 04504/07/24 04504/06/24 1013 GLUC 74 92 130* NA 139 138 140 K 3.9 3.6* 3.8 CHLOR 102 105 102 CO2 22 22 27 CREAT 0.52* 0.56* 0.80 BUN 16 25* 33* ANION 15 11 11 CA 7.7* 7.5* 9.1 TPROT -- -- 6.6 ALB -- -- 4.2 TBILI -- -- 1.7* ALKPHOS -- -- 82 AST -- -- 25 ALT -- -- 20 PEPE High Sensitivity Date Value Ref Range Status 12/31/2023 9 <12 ng/L Final 12/31/2023 10 <12 ng/L Final 01/15/2022 <6 <12 ng/L Final Comment: When assessing risk for acute coronary syndromes: In patients undergoing blood draw greater than or equal to 2 hours from symptom onset, with history of very low to moderate risk and non-ischemic ECG, an initial hs-Troponin T less than 12 ng/L AND a 1 hour delta hs-Troponin T less than 3 ng/L should be considered very low risk for 30 day MACE. Most recent imaging Assessment/Plan Problem List Assessment AND Plan Diarrhea Nausea AND vomiting Abdominal pain Partial small bowel obstruction (HCC) HOSPITAL COURSE: Fannie Avalos is a 78 year old female presented with past medical history of HLD, OA, bowel perforation x 2 after colonoscopy presented to the ER on 04/06/2024 with a complaint of nausea, vomiting, diarrhea and abdominal pain which started last night. CT abdomen and pelvis showed nonspecific nondistended fluid-filled loops of small bowel no abnormal wall thickening likely secondary to adynamic ileus however partial SBO cannot be ruled out. Principal Problem: Partial small bowel obstruction (HCC) Nausea vomiting and diarrhea Diarrhea Abdominal pain Assessment AND Plan: -C. difficile, stool studies - negative -FECAL LACTOFERRIN/LEUKOCYTES -Start pantoprazole 40 mg twice daily -Check EKG prior to starting nausea medications -initially N.p.o. - now advanced to GI soft diet -Consult general surgery- not requiring surgery. - consult GI -Patient wants to be full code Patient changed to inpatient due to considered to have partial SBO. Medication and Non-Pharmacologic VTE Prophylaxis/Anticoagulants VTE Prophylaxis: VTE prophylaxis appropriate Disposition: To be determined Plan of care discussed with Provider, RN, Patient Plan communicated to: Family at bedside SIGNATURE: Lorna Contreras MD PATIENT NAME: Fannie Avalos DATE: 04/08/2024 TIME: 12:11 PM[facility] [id number] NoteHNO ID: [id number] Author: LORNA CONTRERAS MD Service: Hospital Medicine Author Type: Physician Type: Progress Notes Filed: 04/07/2024 11:32 Note Text: DEPARTMENT OF HOSPITAL MEDICINE PROGRESS NOTE SERVICE DATE: 04/07/2024 SERVICE TIME: 10:28 AM Hospital Medicine/Primary Attending: Lorna Contreras MD NIGHT AND WEEKEND COVERAGE: [place] COVERAGE: Days: [phone], please page attending physician. Nights: [phone], please page [place] Hospitalist Night coverage pager [phone]. Subjective INTERVAL HPI: Patient is mildly better. Had several BMs not recorded in the flow chart. Pending C.Diff sample. Per General surgery is very concern with advancing the diet too quickly. No f/c/n/v. No SOB. Current Facility-Administered Medications Medication Dose Route Frequency NaCl 0.9% iv flush bag 20 mL INTRAVENOUS PRN NaCl 0.9% iv infusion 100 mL/hr INTRAVENOUS CONTINUOUS ondansetron orally disintegrating 4 mg tab(s) (ZOFRAN ODT) 4 mg ORAL q 6 H PRN pantoprazole 40 mg injection (PROTONIX) 40 mg INTRAVENOUS BID AC (0600/1600) atorvastatin 40 mg tab(s) (LIPITOR) 40 mg ORAL AT BEDTIME carvedilol 3.125 mg tab(s) (COREG) 3.125 mg ORAL BID w MEALS potassium chloride ER 40 mEq tab(s) (KLOR-CON) 40 mEq ORAL DAILY Objective PHYSICAL EXAM: BP 126/50 Pulse 78 Temp (Src) 98.8 (Oral) Resp 16 Ht 5' 3 (1.60m) Wt 135 lb 9.3 oz (61.5kg) SpO2 94% BMI 24.02 kg/(m2). O2 Therapy: Room Air Physical Exam Performed GENERAL: Alert, no distress, cooperative SKIN: Skin color, texture, turgor normal. No rashes or lesions. HEAD/SINUSES: No significant findings EYES: PERRLA, EOMI LUNGS: Lungs clear to auscultation, Good diaphragmatic excursion CARDIAC: Normal S1 and S2; no rubs, murmurs, or gallops ABDOMEN: Abdomen soft, non-tender, BS normal, No masses or organomegaly EXTREMITIES: Extremities normal, no deformities, edema, clubbing or skin discoloration. Good capillary refill., No ulcers NEURO: Cranial nerves II-XII intact PULSES: 2+ radial, 2+ carotid Lines, Drains, and Airways Line Name Duration Peripheral 04/06/24 1010 Left Antecubital 20 Gauge 1 day Reviewed lines and needs to be continued: REASONS: Intravenous fluids and Telemetry DATA: Diagnostic tests reviewed for today's visit: Recent Labs 04/07/24 0451 04/06/24 1013 WBC 2.82* 9.00 RBC 3.40* 4.31 HB 11.3* 14.2 HCT 34.0* 43.3 PLT 147* 199 MCV 100.0 100.5* MCH 33.2 32.9 MPV 9.9 9.6 ABSNEUT -- 8.40* NEUTP -- 93.4 LYMPHP -- 2.0 MONOP -- 4.4 EODINP -- 0.1 Recent Labs 04/07/24 0451 04/06/24 1013 GLUC 92 130* NA 138 140 K 3.6* 3.8 CHLOR 105 102 CO2 22 27 CREAT 0.56* 0.80 BUN 25* 33* ANION 11 11 CA 7.5* 9.1 TPROT -- 6.6 ALB -- 4.2 TBILI -- 1.7* ALKPHOS -- 82 AST -- 25 ALT -- 20 PEPE High Sensitivity Date Value Ref Range Status 12/31/2023 9 <12 ng/L Final 12/31/2023 10 <12 ng/L Final 01/15/2022 <6 <12 ng/L Final Comment: When assessing risk for acute coronary syndromes: In patients undergoing blood draw greater than or equal to 2 hours from symptom onset, with history of very low to moderate risk and non-ischemic ECG, an initial hs-Troponin T less than 12 ng/L AND a 1 hour delta hs-Troponin T less than 3 ng/L should be considered very low risk for 30 day MACE. Most recent imaging Assessment/Plan Problem List Assessment AND Plan Nausea vomiting and diarrhea (Resolved: 04/07/2024) Diarrhea Nausea AND vomiting Abdominal pain Partial small bowel obstruction (HCC) HOSPITAL COURSE: Fannie Avalos is a 78 year old female presented with past medical history of HLD, OA, bowel perforation x 2 after colonoscopy presented to the ER on 04/06/2024 with a complaint of nausea, vomiting, diarrhea and abdominal pain which started last night. CT abdomen and pelvis showed nonspecific nondistended fluid-filled loops of small bowel no abnormal wall thickening likely secondary to adynamic ileus however partial SBO cannot be ruled out. Principal Problem: Partial small bowel obstruction (HCC) Nausea vomiting and diarrhea Diarrhea Abdominal pain Assessment AND Plan: -Check C. difficile, stool studies -Start pantoprazole 40 mg twice daily -Check EKG prior to starting nausea medications -IV normal saline at 100 mL/h -N.p.o. with exception of sips of water -Consult general surgery -Patient wants to be full code Patient changed to inpatient due to considered to have partial SBO. Medication and Non-Pharmacologic VTE Prophylaxis/Anticoagulants VTE Prophylaxis: VTE prophylaxis appropriate Disposition: To be determined Plan of care discussed with Provider, RN, Patient Plan communicated to: Family at bedside SIGNATURE: Lorna Contreras MD PATIENT NAME: Fannie Avalos DATE: 04/07/2024 TIME: 10:30 [id number] NoteHNO ID: [id number] Author: TEETEE BOLAÑOS RN Service: Care Management Author Type: Registered Nurse Type: Care Mgt Initial Assessment Filed: 04/07/2024 10:06 Note Text: CARE MANAGEMENT: ASSESSMENT AND DISCHARGE PLAN SERVICE DATE: April 07, 2024 SERVICE TIME: 10:04 AM PCP: Gavin Tran MD--Confirmed Primary Contact: Extended Emergency Contact Information Primary Emergency Contact: Baron Avalos Address: [address] [place] [address] Mobile Relation: Spouse Admission Status: Observation Insurance Provider: ON LICENSE OF [facility] MEDICARE PPO Discharge Planning requested by: Per Department Practice Potential Transition Plans No Services Indicated Advance Directives Current Advance Directive: Health Care Power of Marketing Representative;Living Will In Chart: Yes Up To Date and Valid: Yes Current Living Arrangements and Support Lives with: Spouse/significant other Type of Residence: Private Residence (House) Does the patient have to climb stairs at home?: Yes;stairs within the home Support: Family members, Spouse/significant other, Children How do you manage to accomplish the following: Independent: Ambulation;Bathe/Shower;Dress;Meals/Meal Prep;Going to the bathroom;Medication Management;Transportation to appointments/community Current Services/Equipment Current Post-Acute Service(s): None Discharge Planning Patient Goal(s): Independent living, Be able to go home, General wellness [place] of Choice Explained: [place] of Choice Given: No Reason Not Given: No placements necessary Are you interested in bedside delivery of your medications? No Uses [facility] in [place]. Discharge Planning Participant(s): Patient;Spouse/significant other Patient/Family Comments: Caregiver Assessment: Caregiver is ready, willing and able to meet the patient's needs as recommended by the inter-professional team: No Caregiver needed Transport at Discharge: Transportation Arrangements: Car Needs Prior to Discharge: Needs Prior to Discharge: To Be Determined;Other: See Comment (Medical Clearance) Post-Acute Discharge Plan: Case Management met at bedside with patient and spouse, introduced self and role. Pt is 78 y/o, with admitting Dx of Ileus vs SBO, N/V/D. Patient is on IVF. Cdiff R/o. Gen surg on consult. Currently NPO. Pt is AANDO X 3, IPTA. Patient is from home with spouse. No DME. No active services within the home. Spouse to provide transport upon discharge. CM instructed patient that CM team will remain available for any dc needs. SIGNATURE: Teetee Bolaños RN PATIENT NAME: Fannie Avalos DATE: April 07, 2024 TIME: 10:04 [id number] Instructions* Patient Instructions* Gavin Tran MD - 03/29/2024 1:11 PM EST Screening schedule The following prevention plan is recommended: Depression Screening Never done Anxiety Screening Never done DTaP,Tdap,Td Vaccine(1 - Tdap) due on 09/19/2010 Shingrix Vaccine(2 of 3) due on 01/11/2011 RSV Vaccine(1 - 1-dose 75+ series) Never done Advance Directive Discussion due on 04/21/2023 WHAT YOU CAN DO TO PREVENT FALLS Many falls can be prevented. By making some changes, you can lower your chances of falling. Four things YOU can do to prevent falls for you* and your caregiver 1. Begin a regular exercise program Exercise is one of the most important ways to lower your chances of falling. It makes you stronger and helps you feel better. Exercises that improve balance and coordination (like Jason Chi) are the most helpful. Lack of exercise leads to weakness and increases your chances of falling. Ask your doctor or health care provider about the best type of exercise program for you. 2. Have your health care provider review your medicines Have your doctor or pharmacist review all the medicines you take, even [id number] medicines. As you get older, the way medicines work in your body can change. Some medicines, or combinations of medicines, can make you sleepy or dizzy andcan cause you to fall. 3. Have your vision checked Have your eyes checked by an eye doctor at least once a year. You may be wearing the wrong glasses or have a condition like glaucoma or cataracts that limits your vision. Poor vision can increase your chances of falling. 4. Make your home safer About half of all falls happen at home. To make your home safer: Remove things you can trip over (like papers, books, clothes, and shoes) from stairs and places where you walk. Remove small throw rugs or use double-sided tape to keep the rugs from slipping. Keep items you use often in cabinets you can reach easily without using a step stool. Have grab bars put in next to your toilet and in the tub or shower. Use non-slip mats in the bathtub and on shower floors. Improve the lighting in your home. As you get older, you need brighter lights to see well. Hang light-weight curtains or shades to reduce glare. Have handrails and lights put in on all staircases. Wear shoes both inside and outside the house. Avoid going barefoot or wearing slippers. For more information, contact: Centers for Disease Control and Prevention www.cdc.gov/injury * This information may not apply if you have certain medical conditions. documented in this encounterOhio[facility]12-[facility]24 NoteHNO ID: [id number] Author: GAVIN TRAN MD Service: ? Author Type: Physician Type: Progress Notes Filed: 03/29/2024 15:06 Note Text: This note was created using Arsanister. Subjective Fannie Avalos is a 78 year old female was here with Baron for follow up. She was undergoing PT for left leg weakness and osteoarthritis. She felt some improvement to date. Her lipids were controlled. She started having right arm and hand pain at night one month ago, and it seemed shaking her hand helped. A family member who was a PT recommended she use a splint on her wrist and this has significantly improved her symptoms. Review of Systems Constitutional: Negative for fatigue and fever. Respiratory: Negative for cough and shortness of breath. Cardiovascular: Negative for chest pain, palpitations and leg swelling. Neurological: See HPI. 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 alendronate (FOSAMAX) 70 mg tablet Take 1 tablet by mouth one time a week. Take with a full glass of water, on an empty stomach; do NOT lie down for 30minutes. cetirizine (ZYRTEC) 10 mg tablet Take 10 mg by mouth once daily. naproxen (NAPROSYN) 500 mg tablet Take 1 tablet by mouth two times a day with meals. fluticasone (FLONASE) 50 mcg/actuation nasal spray Use 2 Sprays in each nostril once daily. Rinse mouth after use. carvedilol (COREG) 3.125 mg tablet Cholecalciferol, Vitamin D3, 25 mcg (1,000 unit) cap Take 1 capsule by mouth once daily. VITAMIN E 200 UNIT CAP Take 200 Units by mouth once daily. Perry-3 Fatty Acids (FISH OIL) ORAL Cap Take one(1) capsule daily. MULTIVITAMIN TAB Take one(1) tablet daily. CALCIUM + D 600 MG-200 UNIT TAB Take one(1) tablet daily. ASPIRIN 81 MG TAB Take 81 mg by mouth once daily. No current facility-administered medications for this visit. Objective BP 118/66 (BP Site: Left Arm, BP Position: Sitting, BP Cuff Size: Large Adult) Pulse 68 Temp 36.8 ?C (98.2 ?F) (Temporal) Ht 160 cm (5' 3) Wt 62.5 kg (137 lb 12.6 oz) BMI 24.41 kg/m? Physical Exam Constitutional: Appearance: Normal appearance. HENT: Head: Normocephalic. Cardiovascular: Rate and Rhythm: Normal rate and regular rhythm. Heart sounds: No murmur heard. No gallop. Pulmonary: Breath sounds: Normal breath sounds. Musculoskeletal: Right shoulder: Normal. Right elbow: Normal. Right wrist: No swelling, deformity or tenderness. Normal range of motion. Right hand: Normal strength. Normal sensation. Right lower leg: No edema. Left lower leg: No edema. Neurological: Mental Status: She is alert. Sensory: No sensory deficit. Motor: No weakness. Gait: Gait abnormal. Assessment and Plan 1. Medicare annual wellness visit, subsequent - ICD9: V70.0, ICD10: Z00.00 (primary diagnosis) - See wellness note. 2. Encounter for screening examination for other mental health and behavioral disorders - ICD9: V79.8, ICD10: Z13.39 - ANXIETY SCREENING 3. Screening for depression - ICD9: V79.0, ICD10: Z13.31 - DEPRESSION SCREENING 4. Hyperlipidemia, unspecified hyperlipidemia type - ICD9: 272.4, ICD10: E78.5 - Control undetermined, due for labs - Continue current medications - Counseled on healthy diet and regular exercise - LIPID PANEL BASIC 5. Left leg weakness - ICD9: 729.89, ICD10: R29.898 - Improving. 6. Carpal tunnel syndrome on right - ICD9: 354.0, ICD10: G56.01 New diagnosis. Continue self care. 7. Age-related osteoporosis without current pathological fracture - ICD9: 733.01, ICD10: M81.0 - continue tx with alendronate (Fosamax) - Reviewed the need for Calcium and Vitamin D supplements and weight bearing exercise as tolerated Gavin Tran [facility]12-09-2024 History of Present illness Narrative* Gavin Tran MD - 03/29/2024 1:00 PM EST This note was created using Edúkameriter. Subjective Fannie Avalos is a 78 year old female was here with Baron for follow up. She was undergoing PT for left leg weakness and osteoarthritis. She felt some improvement to date. Her lipids were controlled. She started having right arm and hand pain at night one month ago, and it seemed shaking her hand helped. A family member who was a PT recommended she use a splint on her wrist and this has significantly improved her symptoms. Review of Systems Constitutional: Negative for fatigue and fever. Respiratory: Negative for cough and shortness of breath. Cardiovascular: Negative for chest pain, palpitations and leg swelling. Neurological: See HPI. 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 alendronate (FOSAMAX) 70 mg tablet Take 1 tablet by mouth one time a week. Take with a full glass of water, on an empty stomach; do NOT lie down for 30minutes. cetirizine (ZYRTEC) 10 mg tablet Take 10 mg by mouth once daily. naproxen (NAPROSYN) 500 mg tablet Take 1 tablet by mouth two times a day with meals. fluticasone (FLONASE) 50 mcg/actuation nasal spray Use 2 Sprays in each nostril once daily. Rinse mouth after use. carvedilol (COREG) 3.125 mg tablet Cholecalciferol, Vitamin D3, 25 mcg (1,000 unit) cap Take 1 capsule by mouth once daily. VITAMIN E 200 UNIT CAP Take 200 Units by mouth once daily. Perry-3 Fatty Acids (FISH OIL) ORAL Cap Take one(1) capsule daily. MULTIVITAMIN TAB Take one(1) tablet daily. CALCIUM + D 600 MG-200 UNIT TAB Take one(1) tablet daily. ASPIRIN 81 MG TAB Take 81 mg by mouth once daily. No current facility-administered medications for this visit. Objective BP 118/66 (BP Site: Left Arm, BP Position: Sitting, BP Cuff Size: Large Adult) Pulse 68 Temp 36.8 C (98.2 F) (Temporal) Ht 160 cm (5' 3) Wt 62.5 kg (137 lb 12.6 oz) BMI 24.41 kg/m Physical Exam Constitutional: Appearance: Normal appearance. HENT: Head: Normocephalic. Cardiovascular: Rate and Rhythm: Normal rate and regular rhythm. Heart sounds: No murmur heard. No gallop. Pulmonary: Breath sounds: Normal breath sounds. Musculoskeletal: Right shoulder: Normal. Right elbow: Normal. Right wrist: No swelling, deformity or tenderness. Normal range of motion. Right hand: Normal strength. Normal sensation. Right lower leg: No edema. Left lower leg: No edema. Neurological: Mental Status: She is alert. Sensory: No sensory deficit. Motor: No weakness. Gait: Gait abnormal. Assessment and Plan 1. Medicare annual wellness visit, subsequent - ICD9: V70.0, ICD10: Z00.00 (primary diagnosis) - See wellness note. 2. Encounter for screening examination for other mental health and behavioral disorders - ICD9: V79.8, ICD10: Z13.39 - ANXIETY SCREENING 3. Screening for depression - ICD9: V79.0, ICD10: Z13.31 - DEPRESSION SCREENING 4. Hyperlipidemia, unspecified hyperlipidemia type - ICD9: 272.4, ICD10: E78.5 - Control undetermined, due for labs - Continue current medications - Counseled on healthy diet and regular exercise - LIPID PANEL BASIC 5. Left leg weakness - ICD9: 729.89, ICD10: R29.898 - Improving. 6. Carpal tunnel syndrome on right - ICD9: 354.0, ICD10: G56.01 New diagnosis. Continue self care. 7. Age-related osteoporosis without current pathological fracture - ICD9: 733.01, ICD10: M81.0 - continue tx with alendronate (Fosamax) - Reviewed the need for Calcium and Vitamin D supplements and weight bearing exercise as tolerated Gavin Tran MD * Gavin Tran MD - 03/29/2024 12:52 PM EST Images from the original note were not included. Fannie Avalos is a 78 year old female here for a Medicare wellness visit. Medicare Health Risk Assessment General Health Good Exercise: Minutes/Day 30 min Exercise: Days/Week 2 days Alcohol: Daily Use Never Alcohol: Drinks/Day Patient does not drink Alcohol: 6 or more drinks Never Feel off balance Yes Concerns: Teeth/Dentures No Concerns: Sexual function No Troubled by feelings None of the above Frequency: Eating healthy diet Nearly every day ADLs requiring help None of the above Safety precautions in home/vehicle Yes Smoke, vape, chews tobacco No Difficulty hearing No Difficulty seeing No Current Providers Specialists: I have reviewed specialist-related care of the patient in the medical record. Current care team: Patient Care Team: Gavin Tran MD as PCP - General (Internal Medicine) Catina Reddy, ALFREDO.FINANCE SPECIALIST as Cdl Program Coordinator (Internal Medicine) Bernabe Cox MD (Neurosurgery) Dr. Hawk Crump, (Ophthalmology). Dr. Lisandro Gomez, ([facility], cardiology). [place] physicians as needed. Medical/Family history review Reviewed and updated problem list, medical/surgical/family/social history, medications, and allergies. Opioid use review Opioid Medications (last 90 days) No data to display Depression Screening DEPRESSION SCREENING Ordered at: 03/29/24 1257 Based on score and interview, patient is: Not at risk for depression Screening tool discussed with patient, and I recommend: No further intervention at this time PHQ-2 Score: 0 ANXIETY SCREENING Ordered at: 03/29/24 1257 Based on score and interview, patient is: Not at risk for anxiety Screening tool discussed with patient, and I recommend: No further intervention at this time MODESTA-2 Score: 0 Cognitive screening Mini Cog Score: 5 Cognitive screening reviewed and No further action needed (score 3-5). Functional Observation Was the patient's Timed Up & Go test unsteady or >= 12 seconds? No Advance Care Planning Patient was not able to provide a surrogate decision maker or written advance directives Measurements BP 118/66 (BP Site: Left Arm, BP Position: Sitting, BP Cuff Size: Large Adult) Pulse 68 Temp 36.8 C (98.2 F) (Temporal) Ht 160 cm (5' 3) Wt 62.5 kg (137 lb 12.6 oz) BMI 24.41 kg/m Vision Screening: Follows with optometry/ophthalmology Right: 20/50 Left: 20/ 50 Both: 20/40 Assessment/Plan Medicare annual wellness visit, subsequent (Z00.00) - Counseled on healthy diet and regular exercise - Fall avoidance information provided - Personalized prevention plan provided - Vaccine recommendations reviewed. documented in this encounterOhio[facility]24 NoteHNO ID: [id number] Author: GAVIN TRAN MD Service: ? Author Type: Physician Type: Progress Notes Filed: 03/29/2024 15:06 Note Text: Fannie Avalos is a 78 year old female here for a Medicare wellness visit. Medicare Health Risk Assessment General Health Good Exercise: Minutes/Day 30 min Exercise: Days/Week 2 days Alcohol: Daily Use Never Alcohol: Drinks/Day Patient does not drink Alcohol: 6 or more drinks Never Feel off balance Yes Concerns: Teeth/Dentures No Concerns: Sexual function No Troubled by feelings None of the above Frequency: Eating healthy diet Nearly every day ADLs requiring help None of the above Safety precautions in home/vehicle Yes Smoke, vape, chews tobacco No Difficulty hearing No Difficulty seeing No Current Providers Specialists: I have reviewed specialist-related care of the patient in the medical record. Current care team: Patient Care Team: Gavin Tran MD as PCP - General (Internal Medicine) Catina Reddy, ALFREDO.FINANCE SPECIALIST as Cdl Program Coordinator (Internal Medicine) Bernabe Cox MD (Neurosurgery) Dr. Hawk Crump, (Ophthalmology). Dr. Lisandro Gomez, ([facility], cardiology). [place] physicians as needed. Medical/Family history review Reviewed and updated problem list, medical/surgical/family/social history, medications, and allergies. Opioid use review Opioid Medications (last 90 days) No data to display Depression Screening DEPRESSION SCREENING Ordered at: 03/29/24 1257 Based on score and interview, patient is: Not at risk for depression Screening tool discussed with patient, and I recommend: No further intervention at this time PHQ-2 Score: 0 ANXIETY SCREENING Ordered at: 03/29/24 1257 Based on score and interview, patient is: Not at risk for anxiety Screening tool discussed with patient, and I recommend: No further intervention at this time MODESTA-2 Score: 0 Cognitive screening Mini Cog Score: 5 Cognitive screening reviewed and No further action needed (score 3-5). Functional Observation Was the patient's Timed Up AND Go test unsteady or >= 12 seconds? No Advance Care Planning Patient was not able to provide a surrogate decision maker or written advance directives Measurements BP 118/66 (BP Site: Left Arm, BP Position: Sitting, BP Cuff Size: Large Adult) Pulse 68 Temp 36.8 ?C (98.2 ?F) (Temporal) Ht 160 cm (5' 3) Wt 62.5 kg (137 lb 12.6 oz) BMI 24.41 kg/m? Vision Screening: Follows with optometry/ophthalmology Right: 20/50 Left: 20/ 50 Both: 20/40 Assessment/Plan Medicare annual wellness visit, subsequent (Z00.00) - Counseled on healthy diet and regular exercise - Fall avoidance information provided - Personalized prevention plan provided - Vaccine recommendations reviewed.[facility]12-06-2024 History of Present illness Narrative* Nany Trinidad Mammo Tech - 03/26/2024 9:10 AM EST Radiology Service Progress Note PATIENT NAME: Fannie Avalos DATE OF SERVICE: March 26, 2024 TIME: 9:47 AM PATIENT IDENTITY VERIFICATION COMPLETED USING TWO (2) IDENTIFIERS: Name and Date of confirmedby patient verbally. FALL SCREENING: Has the patient had 2 falls in the last year or 1 fall with injury or currently using an Ambulatory Assistive Device (Walker, Cane, Wheelchair, Crutches, etc.)? No PATIENT GENDER DATA: Female. status: : No status: NO. PATIENT RELEVANT IMPLANT DATA REVIEWED: Not Applicable PATIENT PRESENTS WITH AN IMPLANTABLE OR ATTACHED VAT TENDER: No RADIOLOGY DEPARTMENT: Mammography PERIPHERAL IV DATA: Not applicable SIGNED BY: Linda Johnson March 26, 2024 9:47 AM documented in this encounterOhiohealth [facility]12-06-2024 NoteHNO ID: [id number] Author: NANY TRINIDAD Mammo Tech Service: ? Author Type: Leave Manager Type: Progress Notes Filed: 03/26/2024 09:47 Note Text: Radiology Service Progress Note PATIENT NAME: Fannie Avalos DATE OF SERVICE: March 26, 2024 TIME: 9:47 AM PATIENT IDENTITY VERIFICATION COMPLETED USING TWO (2) IDENTIFIERS: Name and Date of confirmed by patient verbally. FALL SCREENING: Has the patient had 2 falls in the last year or 1 fall with injury or currently using an Ambulatory Assistive Device (Walker, Cane, Wheelchair, Crutches, etc.)? No PATIENT GENDER DATA: Female. status: : No status: NO. PATIENT RELEVANT IMPLANT DATA REVIEWED: Not Applicable PATIENT PRESENTS WITH AN IMPLANTABLE OR ATTACHED VAT TENDER: No RADIOLOGY DEPARTMENT: Mammography PERIPHERAL IV DATA: Not applicable SIGNED BY: Linda Johnson March 26, 2024 9:47 [facility]12-04-2024 History of Present illness Narrative* Kb Ruggiero, PT - 03/24/2024 8:37 AM EST Program_ID:[id number] Access Code: [email or web address] URL: [email or web address] Date: 03-24-2024 Prepared By: Kb Ruggiero Program Notes Exercises - Seated Hamstring Stretch - 1-2 x daily - 7 x weekly - sets - 3 reps - Seated March with isometric abdominals - 1-2 x daily - 7 x weekly - 3 sets - 10 reps - Supine Single Knee to Chest Stretch - 1-2 x daily - 7 x weekly - 1 sets - 3 reps - Supine Lower Trunk Rotation - 1-2 x daily - 7 x weekly - sets - 10 reps - Bridge - 1 x daily - 7 x weekly - 2 sets - 10 reps - Clamshell - 1 x daily - 7 x weekly - 1-2 sets - 10 reps * Kb Ruggiero, PT - 03/24/2024 8:16 AM EST Episode Visit Count: 2 Therapist That Will Accept/Oversee The Plan Of Care: Kb Ruggiero Start of Care Date: 03/01/24 Onset Date: (summer) Plan of Care Certification Date: 03/01/24 Next Certification Due Date: 05/01/24 Patient Identified by Name and Date of : Yes REHABILITATION AND SPORTS THERAPY PHYSICAL THERAPY PROGRESS REPORT PLAN OF CARE UPDATE: Assessment: Fannie Avalos demonstrates improvements in TUG and 30 second chair stand tests, rising from a chair, stair negotiation, and sleeping. The patient has progressed toward goals. Patient continues to present with impairments in flexibility, gait, patient reported outcome measures, and strength that i nterfere with walking in the community, walking in the house (getting in and out of the car) . Current prognosis is Good due to: current objective clinical presentation, good overall health status, good support system/ coping skills . The patient will benefit from continued skilled therapy servicesto meet the updated goals for this plan of care as noted below. Goals for Episode of Care: established 03/01/24 Goals updated on 03/24/2024. [place] in home exercise program. (Met) Patient will decrease pain rating by 2 points to meet minimal clinical important difference for numeric pain rating scale. (Met) Patient will demonstrate increase in B LE strength to 4 to 4+/5 during manual muscle testing in order to improve function for home management tasks, light functional tasks, and prior functional tasks. (Partially Met) Patient will increase flexibility of hamstrings and hip flexors to SLR 60-70 degrees, hip ext to 10deg, and WNL to improve ability to maintain proper posture, improve mechanics, and decrease pain. Perform walking in the community;walking in the house;stair negotiation (no problem);sleeping; and car transfers (better, still discomfort) without pain. (Partially Met) Patient will Improve Timed Up and Go to <12 seconds to demonstrate decreased risk of falling. (Met) Patient will improve 30 second sit to stand to 10 to demonstrate improvement in functional lower extremity strength. (Not Met)-improved Normal gait. (Not Met) Patient Goals: To reduce pain and improve stability of walking. Goals updated 12/25/2021 Goals for Episode of Care: created on 11/26/21 through 02/04/22 Pt will report an overall improvement in L heel/ankle pain by 80% in 10 weeks or less - Progressing, will continue [place] in home exercise program. - Met so far Perform standing without pain. - MET Normal gait. - Met at times, will continue Patient Goals: To decrease ankle pain. Time Frame for Goals and Treatment : 05/01/24 Planned Interventions, Frequency, and Duration: 1 visit, 4 weeks Total Number of Visits Planned: 1 Patient to be seen for Therapeutic exercise (91257), Neuromuscular re-education (80590), Manual therapy (23123), Self-intermediate management (20330), Patient/Family/Caregiver Education, Gait Training (38455) PLAN FOR NEXT VISIT: Assess performance of and response to newly added home exercises. Continue to progress L hip ROM/flexibility and strength. SUBJECTIVE: Today I feel better than I did when I saw you before. Has been extremely busy with the Holidays and family visiting. She states she has been trying to make myself regulate what I do. Still feels unsteady on L side. Notes she has been sleeping good (sometimes has to reposition then is good.) Takes an Aleve some days. Notes she is also being very cautious of looking where she is walking. Pt notes she and her are planning to head down to [place] for the winter within the nextweek or two. Functional Limitations: walking in the community, walking in the house (getting in and out of the car) Pain: Pain Pain Level: 5 Pain Location: Hip - Left, Thigh - Left Frequency: Intermittent PROMIS Scales T-scores: mean of general population = 50. 5 points is clinically meaningfully difference Percentiles provide an indication of how the patient's score ranks in relation to the general population. Higher percentile rankings indicate better function/quality of life. 50th percentile is the average of the general population and indicates half of respondents had a worse score. OBJECTIVE MEASURES WITH LEVEL OF FUNCTION: LE AROM R Hip ABduction: 35 Degrees R Hip ADduction: 40 Degrees L Hip ABduction : 35 Degrees (end range mild pulling) L Hip ADduction: 40 Degrees (end range mild pulling) LE Strength L Hip Flexion (L2): 4/5 L Hip ABduction: 4/5 L Hip ADduction: 4/5 L Knee Extension (L3): 4/5 L Knee Flexion: 4-/5 (prox hamstring pain) Functional Performance Test Results 30 Second Chair Stand Test: 8 reps Timed Up and Go (sec): 10 sec TREATMENT: Therapeutic Exercise: 1: *SKC stretch 3 x 30 sec holds each leg 2: *hooklying LTR x 10 3: *bridging 2 x 10 4: *cleamshells (sidelying hip rotation) 1 x 10 Skilled Intervention: Patient was educated in proper exercise technique and purpose for exercises. Reviewed and educated patient on additions/changes for home exercise program as above (*). Skilled judgment was used in selection of appropriate interventions. Provided written instruction for home exercise program to facilitate proper performance and compliance. Correct performance of therapeutic exercises was facilitated with verbal and visual cuing. Additional time necessary for objective measurements and reassessment due to plan of care update and/or discharge. . Patient education as noted. Billing Therapeutic Exercise Treatment Minutes: 44 Skilled Treatment Time Minutes (timed and untimed codes): 44 Total Session Time (minutes): 44 Session Start Time : 800 Session Stop Time : 844 Kb Ruggiero PT documented in this encounterOhio[facility]12-04-2024 NoteHNO ID: [id number] Author: KB RUGGIERO PT Service: ? Author Type: Physical Therapist Type: Progress Notes Filed: 03/24/2024 16:42 Note Text: Episode Visit Count: 2 Therapist That Will Accept/Oversee The Plan Of Care: Kb Ruggiero Start of Care Date: 03/01/24 Onset Date: (summer) Plan of Care Certification Date: 03/01/24 Next Certification Due Date: 05/01/24 Patient Identified by Name and Date of : Yes REHABILITATION AND SPORTS THERAPY PHYSICAL THERAPY PROGRESS REPORT PLAN OF CARE UPDATE: Assessment: Fannie Avalos demonstrates improvements in TUG and 30 second chair stand tests, rising from a chair, stair negotiation, and sleeping. The patient has progressed toward goals. Patient continues to present with impairments in flexibility, gait, patient reported outcome measures, and strength that interfere with walking in the community, walking in the house (getting in and out of the car) . Current prognosis is Good due to: current objective clinical presentation, good overall health status, good support system/ coping skills . The patient will benefit from continued skilled therapy services to meet the updated goals for this plan of care as noted below. Goals for Episode of Care: established 03/01/24 Goals updated on 03/24/2024. [place] in home exercise program. (Met) Patient will decrease pain rating by 2 points to meet minimal clinical important difference for numeric pain rating scale. (Met) Patient will demonstrate increase in B LE strength to 4 to 4+/5 during manual muscle testing in order to improve function for home management tasks, light functional tasks, and prior functional tasks. (Partially Met) Patient will increase flexibility of hamstrings and hip flexors to SLR 60-70 degrees, hip ext to 10deg, and WNL to improve ability to maintain proper posture, improve mechanics, and decrease pain. Perform walking in the community;walking in the house;stair negotiation (no problem);sleeping; and car transfers (better, still discomfort) without pain. (Partially Met) Patient will Improve Timed Up and Go to <12 seconds to demonstrate decreased risk of falling. (Met) Patient will improve 30 second sit to stand to 10 to demonstrate improvement in functional lower extremity strength. (Not Met)-improved Normal gait. (Not Met) Patient Goals: To reduce pain and improve stability of walking. Goals updated 12/25/2021 Goals for Episode of Care: created on 11/26/21 through 02/04/22 Pt will report an overall improvement in L heel/ankle pain by 80% in 10 weeks or less - Progressing, will continue [place] in home exercise program. - Met so far Perform standing without pain. - MET Normal gait. - Met at times, will continue Patient Goals: To decrease ankle pain. Time Frame for Goals and Treatment : 05/01/24 Planned Interventions, Frequency, and Duration: 1 visit, 4 weeks Total Number of Visits Planned: 1 Patient to be seen for Therapeutic exercise (41302), Neuromuscular re-education (93938), Manual therapy (80427), Self-intermediate management (98950), Patient/Family/Caregiver Education, Gait Training (20903) PLAN FOR NEXT VISIT: Assess performance of and response to newly added home exercises. Continue to progress L hip ROM/flexibility and strength. SUBJECTIVE: Today I feel better than I did when I saw you before. Has been extremely busy with the Holidays and family visiting. She states she has been trying to make myself regulate what I do. Still feels unsteady on L side. Notes she has been sleeping good (sometimes has to reposition then is good.) Takes an Aleve some days. Notes she is also being very cautious of looking where she is walking. Pt notes she and her are planning to head down to [place] for the winter within the next week or two. Functional Limitations: walking in the community, walking in the house (getting in and out of the car) Pain: Pain Pain Level: 5 Pain Location: Hip - Left, Thigh - Left Frequency: Intermittent PROMIS Scales T-scores: mean of general population = 50. 5 points is clinically meaningfully difference Percentiles provide an indication of how the patient's score ranks in relation to the general population. Higher percentile rankings indicate better function/quality of life. 50th percentile is the average of the general population and indicates half of respondents had a worse score. OBJECTIVE MEASURES WITH LEVEL OF FUNCTION: LE AROM R Hip ABduction: 35 Degrees R Hip ADduction: 40 Degrees L Hip ABduction : 35 Degrees (end range mild pulling) L Hip ADduction: 40 Degrees (end range mild pulling) LE Strength L Hip Flexion (L2): 4/5 L Hip ABduction: 4/5 L Hip ADduction: 4/5 L Knee Extension (L3): 4/5 L Knee Flexion: 4-/5 (prox hamstring pain) Functional Performance Test Results 30 Second Chair Stand Test: 8 reps Timed Up and Go (sec): 10 sec TREATMENT: Therapeutic Exercise (more content not included)...[facility] 03-10-[facility]24 Telephone encounter Note* Telephone Encounter - Jen Astorga RN - 03/10/2024 9:23 AM EST Patient calls to request an order for mammogram be placed. Pended. Last mammogram completed 03/24/2023. Patient leaving for [place] in . Call back number to schedule is [phone]. Jen Astorga RN [facility]11-20-2024 Miscellaneous Notes* Telephone Encounter - Jen Astorga RN - 03/10/2024 9:23 AM EST Patient calls to request an order for mammogram be placed. Pended. Last mammogram completed 03/24/2023. Patient leaving for [place] in . Call back number to schedule is [phone]. Jen Astorga RN documented in this encounterOhiohealth [facility]11-11-2024 NoteHNO ID: [id number] Author: KB RUGGIERO, PT Service: ? Author Type: Physical Therapist Type: Progress Notes Filed: 03/01/2024 20:13 Note Text: Episode Visit Count: 1 Therapist That Will Accept/Oversee The Plan Of Care: Kb Ruggiero Start of Care Date: 03/01/24 Onset Date: (summer) Plan of Care Certification Date: 03/01/24 Next Certification Due Date: 05/01/24 Patient Identified by Name and Date of : Yes REHABILITATION AND SPORTS THERAPY PHYSICAL THERAPY EVALUATION PLAN OF CARE: Assessment: Fannie Avalos presents with diagnosis of L leg weakness and primary OA of L hip that interferes with walking in the community, walking in the house, stair negotiation, sleeping (I reposition frequently at night. Slowing down general activities. Getting in and out of the car.) . The patient presents with impairments in flexibility, gait, overall function, strength, and symptom management. Patient did not complete the PROMIS? (Patient Reported Outcome Measures Information System). Prognosis for therapy is Good due to: current objective clinical presentation, good overall health status, good support system/ coping skills . The patient will benefit from skilled therapy services to meet the goals established for this plan of care as noted below. Goals for Episode of Care: established 03/01/24 [place] in home exercise program. Patient will decrease pain rating by 2 points to meet minimal clinical important difference for numeric pain rating scale. Patient will demonstrate increase in B LE strength to 4 to 4+/5 during manual muscle testing in order to improve function for home management tasks, light functional tasks, and prior functional tasks. Patient will increase flexibility of hamstrings and hip flexors to SLR 60-70 degrees, hip ext to 10deg, and WNL to improve ability to maintain proper posture, improve mechanics, and decrease pain. Perform walking in the community;walking in the house;stair negotiation;sleeping; and car transfers without pain. Patient will Improve Timed Up and Go to <12 seconds to demonstrate decreased risk of falling. Patient will improve 30 second sit to stand to 10 to demonstrate improvement in functional lower extremity strength. Normal gait. Patient Goals: To reduce pain and improve stability of walking. Time Frame for Goals and Treatment : 05/01/24 Planned Interventions, Frequency, and Duration: Current Frequency: 1x every other week Duration: 8 weeks Total Number of Visits Planned: 4 Planned Treatment Interventions: Therapeutic exercise (79359), Neuromuscular re-education (20417), Manual therapy (58618), Self-intermediate management (72493), Patient/Family/Caregiver Education, Gait Training (72007) PLAN FOR NEXT VISIT: Assess resonse to and performance of HEP. Progress LE/Hip strengthening and flexibilty. May add hip extension stretches, hip abd ex, mini squats, bridging. May further assess gait adn balance to consider use of cane. Patient demonstrates good understanding of plan of care and treatment. The above goals and plan of care were discussed and agreed upon by patient/family. SUBJECTIVE: Pt reports overall feeling less stable on legs/ walking. Feels safer pushing a cart. At home uses walking stick if out in the yard. Last fell on cement in a parking lot. She feels that the L leg/hip just gave way. Has done that before and was able to catch self, but not this time. Landed forward on R hand, knee. Seen in urgent care, had Xrays (R hand, R knee and L hip) that were negative for fx. Feels even a little more unsteady now. Her carries laundry on stairs for her at home. I hang on tightly to the railing. Patient Goals: To reduce pain and improve stability of walking. Functional Limitations: walking in the community, walking in the house, stair negotiation, sleeping (I reposition frequently at night. Slowing down general activities. 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 Home Environment Patient Lives With: Spouse Home Type: (stairs to laundry in basement) Intake Information: Prescription present Previous Treatment: (Aleve, topical ointment for arthritis, sometimes rubbing it calms it down) Falls Interview: Fall without injury in the last year Pain: Pain Pain Level: 0 (up to 7-8 at worst) Pain Location: Hip - Left, Thigh - Left, Knee - Left (maybe just below the knee at times) Description: Dull, Sharp (A weak pain just telling me to be careful.) Frequency: Intermittent (when lifting the leg and out to side (out of car)) PROMIS Scales T-scores: mean of general population = 50. 5 points is clinically meaningfully difference Percentiles provide an indicat (more content not included)...[facility]11-11-2024 History of Present illness Narrative* Kb Ruggiero, PT - 03/01/2024 7:19 PM EST Episode Visit Count: 1 Therapist That Will Accept/Oversee The Plan Of Care: Kb Ruggiero Start of Care Date: 03/01/24 Onset Date: (all summer) Plan of Care Certification Date: 03/01/24 Next Certification Due Date: 05/01/24 Patient Identified by Name and Date of : Yes REHABILITATION AND SPORTS THERAPY PHYSICAL THERAPY EVALUATION PLAN OF CARE: Assessment: Fannie Avalos presents with diagnosis of L leg weakness and primary OA of L hip thatinterferes with walking in the community, walking in the house, stair negotiation, sleeping (I reposition frequently at night. Slowing down general activities. Getting in and out of the car.) . Thepatient presents with impairments in flexibility, gait, overall function, strength, and symptom management. Patient did not complete the PROMIS (Patient Reported Outcome Measures Information System).Prognosis for therapy is Good due to: current objective clinical presentation, good overall health status, good support system/ coping skills . The patient will benefit from skilled therapy services t o meet the goals established for this plan of care as noted below. Goals for Episode of Care: established 03/01/24 [place] in home exercise program. Patient will decrease pain rating by 2 points to meet minimal clinical important difference for numeric pain rating scale. Patient will demonstrate increase in B LE strength to 4 to 4+/5 during manual muscle testing in order to improve function for home management tasks, light functional tasks, and prior functional tasks. Patient will increase flexibility of hamstrings and hip flexors to SLR 60-70 degrees, hip ext to 10deg, and WNL to improve ability to maintain proper posture, improve mechanics, and decrease pain. Perform walking in the community;walking in the house;stair negotiation;sleeping; and car transferswithout pain. Patient will Improve Timed Up and Go to <12 seconds to demonstrate decreased risk of falling. Patient will improve 30 second sit to stand to 10 to demonstrate improvement in functional lower extremity strength. Normal gait. Patient Goals: To reduce pain and improve stability of walking. Time Frame for Goals and Treatment : 05/01/24 Planned Interventions, Frequency, and Duration: Current Frequency: 1x every other week Duration: 8 weeks Total Number of Visits Planned: 4 Planned Treatment Interventions: Therapeutic exercise (06444), Neuromuscular re- education (24282), Manual therapy (86503), Self-intermediate management (45199), Patient/Family/Caregiver Education, Gait Training (75920) PLAN FOR NEXT VISIT: Assess resonse to and performance of HEP. Progress LE/Hip strengthening and flexibilty. May add hip extension stretches, hip abd ex, mini squats, bridging. May further assess gait adn balance to consider use of cane. Patient demonstrates good understanding of plan of care and treatment. The above goals and plan of care were discussed and agreed upon by patient/family. SUBJECTIVE: Pt reports overall feeling less stable on legs/ walking. Feels safer pushing a cart. At home uses walking stick if out in the yard. Last fell on cement in a parking lot. She feels that the Lleg/hip just gave way. Has done that before and was able to catch self, but not this time. Landedforward on R hand, knee. Seen in urgent care, had Xrays (R hand, R knee and L hip) that were negative for fx. Feels even a little more unsteady now. Her carries laundry on stairs for her at home. I hang on tightly to the railing. Patient Goals: To reduce pain and improve stability of walking. Functional Limitations: walking in the community, walking in the house, stair negotiation, sleeping(I reposition frequently at night. Slowing down general activities. 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 Home Environment Patient Lives With: Spouse Home Type: (stairs to laundry in basement) Intake Information: Prescription present Previous Treatment: (Aleve, topical ointment for arthritis, sometimes rubbing it calms it down) Falls Interview: Fall without injury in the last year Pain: Pain Pain Level: 0 (up to 7-8 at worst) Pain Location: Hip - Left, Thigh - Left, Knee - Left (maybe just below the knee at times) Description: Dull, Sharp (A weak pain just telling me to be careful.) Frequency: Intermittent (when lifting the leg and out to side (out of car)) PROMIS Scales T-scores: mean of general population = 50. 5 points is clinically meaningfully difference Percentiles provide an indication of how the patient's score ranks in relation to the general population. Higher percentile rankings indicate better function/quality of life. 50th percentile is the average of the general population and indicates half of respondents had a worse score. OBJECTIVE MEASURES WITH LEVEL OF FUNCTION: LE AROM R Hip Extension: (sidelying to 90deg with tightness) R Hip ABduction: 17 Degrees R Hip ADduction: 36 Degrees R Hip External Rotation: (WNL) L Hip Extension: (sidelying to 90 deg with tightness) L Hip ABduction : 25 Degrees L Hip ADduction: 26 Degrees L Hip External Rotation: (mildly limited with end range pulling proximal medial HS) LE Strength R Hip Flexion (L2): 4/5 L Hip Flexion (L2): 4/5 L Hip ABduction: 4-/5 L Hip ADduction: 4/5 L Knee Extension (L3): 4-/5 L Knee Flexion: 4-/5 (prox hamstring pain) Special Tests - Hip and Spine Hip and Spine Special Tests: Clif's Test Clif's Test: Right Positive, Left Positive Special Test Comments: Limited ROM, tightness L>R Gait Gait: Independent Gait Device: None Gait Deviations: General Deviations General Deviations/Observations: Flexed trunk posture (decreased heel strike and push off B) Functional Performance Test Results 30 Second Chair Stand Test: 7 reps Timed Up and Go (sec): 12 sec Vitals BP: (not assessed as pt arrived late for appt.) Education: Education Learning Preferences: Demonstration, Explanation Barriers: None Learning/educational needs: Home exercise program, Plan of Care Education Provided: Yes, see treatment interventions for education provided Education Provided To: Patient Education Mode/Type: Demonstration, Explanation/Discussion, Literature/Printed Materials, Performance Response to Education/Teach Back: States/Identifies, Return Demonstration TREATMENT: PT Treatment Interventions: Therapeutic Exercise Evaluation Therapeutic Exercise: 1: *seated hamstring stretches 3 x 30 sec each leg 2: *seated marching with isometric abdominals 3 x 10 3: Educated pt in anatomy of hip joint and surrounding musculature adn relation to gait and evaluation findings. Explained rationale of treatment plan and pt in agreement. Skilled Intervention: Patient was educated in proper exercise technique and purpose for exercises. Skilled judgment was used in selection of appropriate interventions. Provided written instruction for home exercise program to facilitate proper performance and compliance. Correct performance of therapeutic exercises was facilitated with verbal and visual cuing. Patient education as noted. Billing * Evaluation Low Complexity: 1 Unit Therapeutic Exercise Treatment Minutes: 23 Skilled Treatment Time Minutes (timed and untimed codes): 40 Total Session Time (minutes): 40 Session Start Time : 1727 Session Stop Time : 180 Kb Ruggiero PT * Kb Ruggiero PT - 03/01/2024 6:04 PM EST Program_ID:[id number] Access Code: [email or web address] URL: [email or web address] Date: 03-01-2024 Prepared By: Kb Ruggiero Program Notes Exercises - Seated Hamstring Stretch - 1-2 x daily - 7 x weekly - sets - 3 reps - Seated March with isometric abdominals - 1-2 x daily - 7 x weekly - 3 sets - 10 reps documented in this encounterOhio[facility]24 NoteHNO ID: [id number] Author: GAVIN TRAN MD Service: ? Author Type: Physician Type: Progress Notes Filed: 02/28/2024 12:31 Note Text: This note was created using [employer]. Subjective Fannie Avalos is a 78 year old female. She fell while walking thru a dip in the pavement which she saw. She fell forward and hurt her right hand, right knee, and left hip. X rays in yesterday were negative for fracture. All summer she has noted pain in the left hip and increasing left leg weakness. Pain was mainly getting in and out of the car, and prolonged walking. She now used a cart for gait support doing groceries and shopping. She had no actual fall or injury to the left hip. Review of Systems Constitutional: Negative for fatigue, fever and unexpected weight change. Gastrointestinal: Negative for constipation and diarrhea. Genitourinary: Negative for difficulty urinating and urgency. Musculoskeletal: Positive for arthralgias and gait problem. Negative for back pain and myalgias. Neurological: Positive for weakness. Negative for numbness. 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 alendronate (FOSAMAX) 70 mg tablet Take 1 tablet by mouth one time a week. Take with a full glass of water, on an empty stomach; do NOT lie down for 30minutes. cetirizine (ZYRTEC) 10 mg tablet Take 10 mg by mouth once daily. naproxen (NAPROSYN) 500 mg tablet Take 1 tablet by mouth two times a day with meals. fluticasone (FLONASE) 50 mcg/actuation nasal spray Use 2 Sprays in each nostril once daily. Rinse mouth after use. carvedilol (COREG) 3.125 mg tablet Cholecalciferol, Vitamin D3, 25 mcg (1,000 unit) cap Take 1 capsule by mouth once daily. VITAMIN E 200 UNIT CAP Take 200 Units by mouth once daily. Perry-3 Fatty Acids (FISH OIL) ORAL Cap Take one(1) capsule daily. MULTIVITAMIN TAB Take one(1) tablet daily. CALCIUM + D 600 MG-200 UNIT TAB Take one(1) tablet daily. ASPIRIN 81 MG TAB Take 81 mg by mouth once daily. No current facility-administered medications for this visit. Objective BP 124/60 (BP Site: Left Arm, BP Position: Sitting, BP Cuff Size: Regular Adult) Pulse 69 Resp 12 Ht 160 cm (5' 3) Wt 62.6 kg (138 lb 0.1 oz) SpO2 99% BMI 24.45 kg/m? Physical Exam Constitutional: Appearance: Normal appearance. Musculoskeletal: General: No tenderness. Lumbar back: No tenderness. Decreased range of motion. Negative right straight leg raise test and negative left straight leg raise test. Right hip: Normal. Left hip: No deformity, tenderness or crepitus. Decreased range of motion. Decreased strength. Right upper leg: Normal. Left upper leg: Normal. Right lower leg: Normal. No edema. Left lower leg: Normal. No edema. Neurological: Sensory: No sensory deficit. Motor: Weakness present. Gait: Gait abnormal. Comments: Subtle weakness of left hip and knee flexion, extension. Gait antalgic with some pelvic tilt. Assessment and Plan 1. Primary osteoarthritis of left hip - ICD9: 715.15, ICD10: M16.12 (primary diagnosis) - Shared medical decision making was done. Weakness and gait was more of a concern for her than pain. Naproxen was effective. We agreed to try PT first. She may need referral to orthopedics down the line. - CONSULT TO PHYSICAL THERAPY 2. Left leg weakness - ICD9: 729.89, ICD10: R29.898 - CONSULT TO PHYSICAL THERAPY Gavin Tran [facility]11-09-2024 History of Present illness Narrative* Gavin Tran MD - 02/28/2024 11:44 AM EST This note was created using [employer]úk[employer]. Subjective Fannie Avalos is a 78 year old female. She fell while walking thru a dip in the pavement which she saw. She fell forward and hurt her right hand, right knee, and left hip. X rays in [facility] yesterday were negative for fracture. All summer she has noted pain in the left hip and increasing left leg weakness. Pain was mainly getting in and out of the car, and prolonged walking. She now used a cart for gait support doing groceries and shopping. She had no actual fall or injury to the left hip. Review of Systems Constitutional: Negative for fatigue, fever and unexpected weight change. Gastrointestinal: Negative for constipation and diarrhea. Genitourinary: Negative for difficulty urinating and urgency. Musculoskeletal: Positive for arthralgias and gait problem. Negative for back pain and myalgias. Neurological: Positive for weakness. Negative for numbness. 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 alendronate (FOSAMAX) 70 mg tablet Take 1 tablet by mouth one time a week. Take with a full glass of water, on an empty stomach; do NOT lie down for 30minutes. cetirizine (ZYRTEC) 10 mg tablet Take 10 mg by mouth once daily. naproxen (NAPROSYN) 500 mg tablet Take 1 tablet by mouth two times a day with meals. fluticasone (FLONASE) 50 mcg/actuation nasal spray Use 2 Sprays in each nostril once daily. Rinse mouth after use. carvedilol (COREG) 3.125 mg tablet Cholecalciferol, Vitamin D3, 25 mcg (1,000 unit) cap Take 1 capsule by mouth once daily. VITAMIN E 200 UNIT CAP Take 200 Units by mouth once daily. Perry-3 Fatty Acids (FISH OIL) ORAL Cap Take one(1) capsule daily. MULTIVITAMIN TAB Take one(1) tablet daily. CALCIUM + D 600 MG-200 UNIT TAB Take one(1) tablet daily. ASPIRIN 81 MG TAB Take 81 mg by mouth once daily. No current facility-administered medications for this visit. Objective BP 124/60 (BP Site: Left Arm, BP Position: Sitting, BP Cuff Size: Regular Adult) Pulse 69 Resp 12 Ht 160 cm (5' 3) Wt 62.6 kg (138 lb 0.1 oz) SpO2 99% BMI 24.45 kg/m Physical Exam Constitutional: Appearance: Normal appearance. Musculoskeletal: General: No tenderness. Lumbar back: No tenderness. Decreased range of motion. Negative right straight leg raise test and negative left straight leg raise test. Right hip: Normal. Left hip: No deformity, tenderness or crepitus. Decreased range of motion. Decreased strength. Right upper leg: Normal. Left upper leg: Normal. Right lower leg: Normal. No edema. Left lower leg: Normal. No edema. Neurological: Sensory: No sensory deficit. Motor: Weakness present. Gait: Gait abnormal. Comments: Subtle weakness of left hip and knee flexion, extension. Gait antalgic with some pelvic tilt. Assessment and Plan 1. Primary osteoarthritis of left hip - ICD9: 715.15, ICD10: M16.12 (primary diagnosis) - Shared medical decision making was done. Weakness and gait was more of a concern for her than pain. Naproxen was effective. We agreed to try PT first. She may need referral to orthopedics down the line. - CONSULT TO PHYSICAL THERAPY 2. Left leg weakness - ICD9: 729.89, ICD10: R29.898 - CONSULT TO PHYSICAL THERAPY Gavin Tran MD documented in this encounterOhio[facility]11-08-[facility]24 Telephone encounter Note * Telephone Encounter - Arely Tavarez RN - 02/27/2024 4:19 PM EST Pt called and is notified of providers results and instructions. Pt voices understanding. Arely Tavarez RN [facility]11-08-[facility]24 Miscellaneous Notes* Telephone Encounter - Arely Tavarez RN - 02/27/2024 4:19 PM EST Pt called and is notified of providers results and instructions. Pt voices understanding. Arely Tavarez RN * Telephone Encounter - Lemuel Howard APRN.CNP - 02/27/2024 2:43 PM EST Please call patient let her know that the hip x-ray came back with no acute findings. Patient should just rest ice follow-up with PCP in a week or so if symptoms are not improving documented in this encounterOhio[facility]11-08-2024 Telephone encounter Note * Telephone Encounter - Lemuel Howard APRN.CNP - 02/27/2024 2:43 PM EST Please call patient let her know that the hip x-ray came back with no acute findings. Patient should just rest ice follow-up with PCP in a week or so if symptoms are not improving [facility] History of Present illness Narrative* Nan Garrison RT(R) - 02/27/2024 12:20 PM EST Radiology Service Progress Note PATIENT NAME: Fannie Avalos DATE OF SERVICE: February 27, 2024 TIME: 12:23 PM PATIENT IDENTITY VERIFICATION COMPLETED USING TWO (2) IDENTIFIERS: Name and Date of confirmedby patient verbally. FALL SCREENING: Has the patient had 2 falls in the last year or 1 fall with injury or currently using an Ambulatory Assistive Device (Walker, Cane, Wheelchair, Crutches, etc.)? Yes, Patient High Riskfor Falls What interventions were put in place to prevent falls during this visit? Instructed Patient to Callfor Help if Needed, Offered Assistance with Transfers/Clothing, and Instructed Patient to Remain Seated (Not on Exam Table) Until Exam PATIENT GENDER DATA: Female. status: : No status: NO. PATIENT RELEVANT IMPLANT DATA REVIEWED: Yes PATIENT PRESENTS WITH AN IMPLANTABLE OR ATTACHED VAT TENDER: No RADIOLOGY DEPARTMENT: General X-ray: Exam(s) Completed: Pelvis X-Ray: Pelvis with Hip Left Lower Extremity X-Ray(s): Knee, AP / Lat / Tunne / Merchant Right Upper Extremity X-Ray(s): Hand, right PERIPHERAL IV DATA: Not applicable SIGNED BY: DONNY Short) February 27, 2024 12:23 PM documented in this encounterOhiohealth [facility]11-08-2024 NoteHNO ID: [id number] Author: NAN GARRISON RT(R) Service: ? Author Type: Leave Manager Type: Progress Notes Filed: 02/27/2024 12:45 Note Text: Radiology Service Progress Note PATIENT NAME: Fannie Avalos DATE OF SERVICE: February 27, 2024 TIME: 12:23 PM PATIENT IDENTITY VERIFICATION COMPLETED USING TWO (2) IDENTIFIERS: Name and Date of confirmed by patient verbally. FALL SCREENING: Has the patient had 2 falls in the last year or 1 fall with injury or currently using an Ambulatory Assistive Device (Walker, Cane, Wheelchair, Crutches, etc.)? Yes, Patient High Risk for Falls What interventions were put in place to prevent falls during this visit? Instructed Patient to Call for Help if Needed, Offered Assistance with Transfers/Clothing, and Instructed Patient to Remain Seated (Not on Exam Table) Until Exam PATIENT GENDER DATA: Female. status: : No status: NO. PATIENT RELEVANT IMPLANT DATA REVIEWED: Yes PATIENT PRESENTS WITH AN IMPLANTABLE OR ATTACHED VAT TENDER: No RADIOLOGY DEPARTMENT: General X-ray: Exam(s) Completed: Pelvis X-Ray: Pelvis with Hip Left Lower Extremity X-Ray(s): Knee, AP / Lat / Tunne / Merchant Right Upper Extremity X-Ray(s): Hand, right PERIPHERAL IV DATA: Not applicable SIGNED BY: RT Han(R) February 27, 2024 12:[address] [facility]11-08-2024 NoteHNO ID: [id number] Author: LEMUEL HOWARD APRN.FINANCE SPECIALIST Service: ? Author Type: Nurse Practitioner Type: Progress Notes Filed: 02/27/2024 14:44 Note Text: Subjective Patient came in with complaints of left hip pain right knee pain and right hand pain. Patient says she tripped on a curb yesterday. Patient was not feeling dizzy at all. Patient denies any blood thinners patient denies hitting her head. Patient just wants to make sure she did not break anything. Patient denies any numbness tingling or loss of feeling. The history is provided by the patient. No american sign language teacher was used. Review of Systems Constitutional: Negative. Skin: Negative. Objective Physical Exam Constitutional: Appearance: Normal appearance. Pulmonary: Effort: Pulmonary effort is normal. Musculoskeletal: Hands: Comments: Purple pain in the area marked above, no swelling or discoloration. Skin: Comments: Red area pain when palpated no discoloration or swelling noted. Tavares right knee disocomfto when weight bearing only Neurological: Mental Status: She is alert. 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 CERVICAL SPONDYLOSIS 02/26/2005 Diarrhea Diverticulosis of colon 01/06/2009 Esophageal reflux Hemorrhage of rectum and anus 12/02/2017 HEMORRHOIDS NOS 11/30/2008 HYPERLIPIDEMIA NEC/NOS 03/18/2005 IBS (irritable bowel syndrome) 01/26/2013 Incontinence of feces 11/30/2008 Incontinence of feces 03/09/2021 Osteopenia Palpitations 01/13/2012 Perforation of large intestine (HCC) 12/03/2017 Spondylosis, 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 TIA (transient ischemic attack) 06/17/2017 [place], [place] PAST SURGICAL HISTORY Procedure Laterality Date CHOLECYSTECTOMY HX 03/2018 COLONOSCOPY FLX DX W/COLLJ SPEC WHEN PFRMD 10/20/2003 Colonoscopy COLONOSCOPY FLX DX W/COLLJ SPEC WHEN PFRMD 01/06/2009 Extensive diverticulosis/hemorrhoids COLONOSCOPY FLX DX W/COLLJ SPEC WHEN PFRMD 07/24/2012 Colonoscopy [place] COLSC FLEXIBLE W/CONTROL BLEEDING ANY METHOD 12/02/2017 laser of cecal AVM DRAIN ABDOMINAL ABSCESS, PERCUTANEOUS 12/15/2017 perianastomotic abscess EGD 12/02/2017 ESOPHAGOGASTRODUODENOSCOPY TRANSORAL DIAGNOSTIC 07/03/2012 [place] in [place] GAMMA KNIFE 1FX TX DELIVERY 02/12/2022 x 3 on 01/15/22; 01/29/22; 02/12/22 HEMORRHOIDECTOMY INT AND XTRNL 2/> COLUMN/HI 10/26/2009 LAMINECTOMY W/RMVL ABNORMAL FACETS LUMBAR 07/08/2011 [place], [place] LAPAROSCOPY COLECTOMY PARTIAL W/ANASTOMOSIS 02/02/2009 LAPAROSCOPY COLECTOMY PARTIAL W/ANASTOMOSIS Right 12/03/2017 LAPS MOBLJ SPLENIC FLXR PFRMD W/PRTL COLECTOMY 02/02/2009 PAST SURGICAL HISTORY OF 1964 ovarian cyst removed PAST SURGICAL HISTORY OF 2001 BREAST BIOPSY--BENIGN PAST SURGICAL HISTORY OF 03/28/2018 Gallbladder removed SIGMOIDOSCOPY FLX CONTROL BLEEDING 03/22/2009 Granulation tissue at anastomosis SIGMOIDOSCOPY FLX W/BIOPSY SINGLE/MULTIPLE 02/28/2011 TOTAL ABDOMINAL HYSTERECT W/WO RMVL TUBE OVARY 02/1990 Hysterectomy, TERI, BSO ALLERGIES Bactrim [Sulfamethoxazole-Trimethoprim], Clindamycin Hcl, Flagyl [Metronidazole Hcl], Gadolinium-Containing Contrast Media, Trimethoprim, and Levofloxacin MEDICATIONS atorvastatin (LIPITOR) 40 mg tablet TAKE 1 TABLET EVERY DAY AT BEDTIME FOR CHOLESTEROL meclizine (ANTIVERT) 12.5 mg tab Take 2 tablets by mouth three times a day as needed. alendronate (FOSAMAX) 70 mg tablet Take 1 tablet by mouth one time a week. Take with a full glass of water, on an empty stomach; do NOT lie down for 30minutes. cetirizine (ZYRTEC) 10 mg tablet Take 10 mg by mouth once daily. naproxen (NAPROSYN) 500 mg tablet Take 1 tablet by mouth two times a day with meals. fluticasone (FLONASE) 50 mcg/actuation nasal spray Use 2 Sprays in each nostril once daily. Rinse mouth after use. carvedilol (COREG) 3.125 mg tablet Cholecalciferol, Vitamin D3, 25 mcg (1,000 unit) cap Take 1 capsule by mouth once daily. VITAMIN E 200 UNIT CAP Take 200 Units by mouth once daily. Perry-3 Fatty Acids (FISH OIL) ORAL Cap Take one(1) capsule daily. MULTIVITAMIN TAB Take one(1) tablet daily. CALCIUM + D 600 MG-200 UNIT TAB Take one(1) tablet daily. ASPIRIN 81 MG TAB Take 81 mg by mouth once daily. FAMILY HISTORY Problem Relation Age of Onset Breast Cancer Mother dec. age 88 Blood Disease Father PE, post MVA, dec. 53yo Breast Cancer Sister Myositis Sister Inclusion Body Myositis None Sister Alzheimer's Disease Sister other (multiple myeloma) Brother Social History Tobacco Use Smoking status: Never Smokeless tobacco: Never Vaping Use Vaping status: Never Used Substance Use Topics Alcohol use: No Drug use: No ASSESSMENT/PLAN: 1. Fall, initial encounter - ICD9: (more content not included)...[facility] History of Present illness Narrative* Lemuel Howard APRN.[facility] - 02/27/2024 12:11 PM EST Images from the original note were not included. Subjective Patient came in with complaints of left hip pain right knee pain and right hand pain. Patient says she tripped on a curb yesterday. Patient was not feeling dizzy at all. Patient denies any blood thinners patient denies hitting her head. Patient just wants to make sure she did not break anything. Patient denies any numbness tingling or loss of feeling. The history is provided by the patient. No american sign language teacher was used. Review of Systems Constitutional: Negative. Skin: Negative. Objective Physical Exam Constitutional: Appearance: Normal appearance. Pulmonary: Effort: Pulmonary effort is normal. Musculoskeletal: Hands: Comments: Purple pain in the area marked above, no swelling or discoloration. Skin: Comments: Red area pain when palpated no discoloration or swelling noted. [place] right knee disocomfto when weight bearing only Neurological: Mental Status: She is alert. 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 CERVICAL SPONDYLOSIS 02/26/2005 Diarrhea Diverticulosis of colon 01/06/2009 Esophageal reflux Hemorrhage of rectum and anus 12/02/2017 HEMORRHOIDS NOS 11/30/2008 HYPERLIPIDEMIA NEC/NOS 03/18/2005 IBS (irritable bowel syndrome) 01/26/2013 Incontinence of feces 11/30/2008 Incontinence of feces 03/09/2021 Osteopenia Palpitations 01/13/2012 Perforation of large intestine (HCC) 12/03/2017 Spondylosis, 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 TIA (transient ischemic attack) 06/17/2017 [place], [place] PAST SURGICAL HISTORY Procedure Laterality Date CHOLECYSTECTOMY HX 03/2018 COLONOSCOPY FLX DX W/COLLJ SPEC WHEN PFRMD 10/20/2003 Colonoscopy COLONOSCOPY FLX DX W/COLLJ SPEC WHEN PFRMD 01/06/2009 Extensive diverticulosis/hemorrhoids COLONOSCOPY FLX DX W/COLLJ SPEC WHEN PFRMD 07/24/2012 [place] COLSC FLEXIBLE W/CONTROL BLEEDING ANY METHOD 12/02/2017 laser of cecal AVM DRAIN ABDOMINAL ABSCESS, PERCUTANEOUS 12/15/2017 perianastomotic abscess EGD 12/02/2017 ESOPHAGOGASTRODUODENOSCOPY TRANSORAL DIAGNOSTIC 07/03/2012 [place] GAMMA KNIFE 1FX TX DELIVERY 02/12/2022 x 3 on 01/15/22; 01/29/22; 02/12/22 HEMORRHOIDECTOMY INT & XTRNL 2/> COLUMN/HI 10/26/2009 LAMINECTOMY W/RMVL ABNORMAL FACETS LUMBAR 07/08/2011 [place], [place] LAPAROSCOPY COLECTOMY PARTIAL W/ANASTOMOSIS 02/02/2009 LAPAROSCOPY COLECTOMY PARTIAL W/ANASTOMOSIS Right 12/03/2017 LAPS MOBLJ SPLENIC FLXR PFRMD W/PRTL COLECTOMY 02/02/2009 PAST SURGICAL HISTORY OF 1964 ovarian cyst removed PAST SURGICAL HISTORY OF 2001 BREAST BIOPSY--BENIGN PAST SURGICAL HISTORY OF 03/28/2018 Gallbladder removed SIGMOIDOSCOPY FLX CONTROL BLEEDING 03/22/2009 Granulation tissue at anastomosis SIGMOIDOSCOPY FLX W/BIOPSY SINGLE/MULTIPLE 02/28/2011 TOTAL ABDOMINAL HYSTERECT W/WO RMVL TUBE OVARY 02/1990 Hysterectomy, TERI, BSO ALLERGIES Bactrim [Sulfamethoxazole-Trimethoprim], Clindamycin Hcl, Flagyl [Metronidazole Hcl], Gadolinium-Containing Contrast Media, Trimethoprim, and Levofloxacin MEDICATIONS atorvastatin (LIPITOR) 40 mg tablet TAKE 1 TABLET EVERY DAY AT BEDTIME FOR CHOLESTEROL meclizine (ANTIVERT) 12.5 mg tab Take 2 tablets by mouth three times a day as needed. alendronate (FOSAMAX) 70 mg tablet Take 1 tablet by mouth one time a week. Take with a full glass of water, on an empty stomach; do NOT lie down for 30minutes. cetirizine (ZYRTEC) 10 mg tablet Take 10 mg by mouth once daily. naproxen (NAPROSYN) 500 mg tablet Take 1 tablet by mouth two times a day with meals. fluticasone (FLONASE) 50 mcg/actuation nasal spray Use 2 Sprays in each nostril once daily. Rinse mouth after use. carvedilol (COREG) 3.125 mg tablet Cholecalciferol, Vitamin D3, 25 mcg (1,000 unit) cap Take 1 capsule by mouth once daily. VITAMIN E 200 UNIT CAP Take 200 Units by mouth once daily. Perry-3 Fatty Acids (FISH OIL) ORAL Cap Take one(1) capsule daily. MULTIVITAMIN TAB Take one(1) tablet daily. CALCIUM + D 600 MG-200 UNIT TAB Take one(1) tablet daily. ASPIRIN 81 MG TAB Take 81 mg by mouth once daily. FAMILY HISTORY Problem Relation Age of Onset Breast Cancer Mother dec. age 88 Blood Disease Father PE, post MVA, dec. 53yo Breast Cancer Sister Myositis Sister Inclusion Body Myositis None Sister Alzheimer's Disease Sister other (multiple myeloma) Brother Social History Tobacco Use Smoking status: Never Smokeless tobacco: Never Vaping Use Vaping status: Never Used Substance Use Topics Alcohol use: No Drug use: No ASSESSMENT/PLAN: 1. Fall, initial encounter - ICD9: E888.9, ICD10: W19.XXXA (primary diagnosis) 2. Pain - ICD9: 780.96, ICD10: R52 - XR HAND GENERAL 3V PA/LAT/OBL RIGHT - neg - XR HIP GENERAL 3V PELV/AP/LAT LEFT-neg - XR KNEE GENERAL 4V AP BOTH/PA - BOTH/LAT/MERC RIGHT- neg Educated about no acute findings on the x-rays. To rest ice give it a week or so and follow-up withprimary care if signs and symptoms are not improving. Patient was agreeable to this care plan. Lemuel Howard APRN.[facility] documented in this encounterOhio[facility] Telephone encounter Note * Telephone Encounter - Annabelle Ariza RN - 02/11/2024 1:38 PM EDT The patient has been identified by name and date of : Yes Caregiver verified no other encounters exist for this prescription request: Yes Caregiver confirmed with patient/requestor that no other refills are due, in the near future, with this provider at this time: Yes The last office visit in the department: 01/08/2024 Does the patient have a future office visit with this provider/department: Yes 03/29/2024 Requested Prescriptions Pending Prescriptions Disp Refills atorvastatin (LIPITOR) 40 mg tablet 90 tablet 3 Sig: TAKE 1 TABLET EVERY DAY AT BEDTIME FOR CHOLESTEROL Annabelle Ariza RN February 11, 2024 1:39 PM [facility]10-23-[facility] Miscellaneous Notes* Telephone Encounter - Annabelle Ariza RN - 02/11/2024 1:38 PM EDT The patient has been identified by name and date of : Yes Caregiver verified no other encounters exist for this prescription request: Yes Caregiver confirmed with patient/requestor that no other refills are due, in the near future, with this provider at this time: Yes The last office visit in the department: 01/08/2024 Does the patient have a future office visit with this provider/department: Yes 03/29/2024 Requested Prescriptions Pending Prescriptions Disp Refills atorvastatin (LIPITOR) 40 mg tablet 90 tablet 3 Sig: TAKE 1 TABLET EVERY DAY AT BEDTIME FOR CHOLESTEROL Annabelle Ariza RN February 11, 2024 1:39 PM documented in this encounterOhiohealth [facility]10-09-2024 Telephone encounter Note * Telephone Encounter - Catarino Pinto - 01/28/2024 2:27 PM EDT A Consult to Pelvic Floor Physical Therapy has been sent through the [facility] referral Portal.Confirmation number: [id number] Catarino Pinto [facility]10-09-2024 Miscellaneous Notes* Telephone Encounter - Catarino Pinto - 01/28/2024 2:27 PM EDT A Consult to Pelvic Floor Physical Therapy has been sent through the [facility] referral Portal.Confirmation number: [id number] Catarino Pinto documented in this encounterOhiohealth O[facility]10-09-2024 Instructions* Patient Instructions* Sharif Farmer MD - 01/28/2024 10:41 AM EDT Images from the original note were not included. Improving Your Health with Fiber This guide provides basic information to help you start increasing dietary fiber in your diet. These are general guidelines that may be tailored to meet your needs. Fiber is an important dietary substance to help support your health. Making changes in your current eating habits will help you eat more healthfully. Most fiber-containing foods are also good sources of vitamins, minerals, and antioxidants, which offer many health benefits. A registered dietitian can provide in-depth nutrition education to help you develop a personal action plan. What is fiber? Fiber is the structural part of plant foods--such as fruits, vegetables, and grains--that our bodies cannot digest or break down. There are two kinds of fiber: soluble and insoluble. Soluble fiber: dissolves in water to form a gummy gel. It can slow down the passage of food from the stomach to the intestine. Examples: dried beans, oats, barley, bananas, potatoes, and soft parts of apples and pears Insoluble fiber: often referred to as roughage because it does not dissolve in water. It holds onto water, which helps produce softer, bulkier stools to help regulate bowel movements. Examples: whole bran, whole grain products, nuts, corn, carrots, grapes, berries, and peels of apples and pears What other things does fiber do? Research has shown that a diet rich in fiber is associated with many health benefits, including thefollowing: Lowers cholesterol-Soluble fiber has been shown to lower cholesterol by binding to bile (composed of cholesterol) and taking it out of the body. This may help reduce the risk of heart disease. Better regulates blood sugar levels-A high-fiber meal slows down the digestion of food into the intestines, which may help to keep blood sugars from rising rapidly. Weight control-A high-fiber diet may help keep you barkley longer, which prevents overeating and hunger between meals. May prevent intestinal cancer-Insoluble fiber increases the bulk and speed of food moving through the intestinal tract, which reduces time for harmful substances to build up. Constipation-Constipation can often be relieved by increasing the fiber or roughage in your diet. Fiber works to help regulate bowel movements by pulling water into the colon to produce softer, bulkier stools. This action helps to promote better regularity. How much fiber should I eat? The Academy of Nutrition and Dietetics recommends consuming about 25-35 grams of total fiber per day, with 10-15 grams from soluble fiber or 14g of fiber per 1,000 calories. This can be accomplished by choosing 6 ounces of grains (3 or more ounces from whole grains), 2 cups of vegetables, and 2 cups of fruit per day (based on a 2,000 calorie/day pattern). However, as we age, fiber requirements decrease. For those over the age of 70, the recommendation for women is 21 grams and for men 30 grams of total fiber per day. Note: Eating a high-fiber diet may interfere with the absorption and effectiveness of some medications. Speak to your doctor about which medications to take with caution and when to take them. Fiber also binds with certain nutrients and carries them out of the body. To avoid this, aim for the recomm ended 20-35 grams of fiber per day. When eating a high-fiber diet, be sure to drink at least eight glasses of fluid each day. Tips for increasing dietary fiber in your diet: Add fiber to your diet slowly. Too much fiber all at once may cause cramping, bloating, and constipation. When adding fiber to your diet, be sure to increase fluids (at least 64 ounces per day) to prevent constipation. Buy bread with 2-4 grams of dietary fiber per slice. Buy cereals with at least 5 grams of dietary fiber per serving. Choose cereals with a whole grain such as whole wheat or whole grain rolled oats. Choose raw fruits and vegetables in place of juice. Choose products that have a whole grain listed as the first ingredient, not enriched flour. Whole wheat flour is a whole grain--wheat flour is not. Try alternative fiber choices such as whole buckwheat, whole wheat couscous, quinoa, bulgur, wheat germ, osmar seeds, hemp seeds, lentil pasta, and edamame pasta. Popcorn is a whole grain. Serve it low-fat without butter for a healthier snack choice. Try whole wheat bread and whole wheat pastas. Sprinkle bran in soups, cereals, baked products, spaghetti sauce, ground meat, and casseroles. Branalso mixes well with orange juice. Use dried peas, beans, and legumes in main dishes, salads, or side dishes such as rice or pasta. Eat the skins of raw fruits and vegetables. Add dried fruit to yogurt, cereal, rice, and muffins. Try brown rice and whole grain pastas. Choose crackers with a whole grain listed as the first ingredient. Look for whole grain rye and wheat crackers. Fiber supplements Fiber supplements may be an option if you are not able to get enough fiber from your diet. Fiber supplements can be used to normalize both constipation and diarrhea. Check with your doctor before starting any kind of supplement. Read labels for fiber carefully. Drink at least 8 ounces of liquids with your supplement. Taking some fiber supplements without adequate liquids may cause the fiber to swell and may cause choking and constipation. Take a total of 64oz water daily. Some fiber supplements to consider are Benefiber (wheat dextrin), Metamucil (psyllium), Konsyl (psyllium), Citrucel (methylcellulose), Fibercon (SmartFiber derived from cellulose), and FiberChoice (inulin). Psyllium husk and guar gum are soluble fibers. Consider keeping a food journal and tracking how much fiber you eat in a typical day. Use the fiber content chart in this handout as a guide to meeting your high fiber goal or check with www.NAL.usda.gov/fnic for additional information on the dietary fiber content of food. Fiber Content of Common Foods Food Category Food Serving Size Total Fiber (grams) Soluble Fiber (grams) Starches, Grains, Starchy vegetables Breads Bagel-whole wheat Light white/wheat Phyllis-whole wheat Pumpernickel Whole wheat Stacy 3 1/2 inches 2 slices 7 inches slice slice slice 3 1 4 3 2 2 1 trace 1 1 trace 1 Cereals Bran flakes Cheerios Oatmeal Fiber One All Bran Kashi Heart to Heart 3/4 cup 1 1/4 cup 1 cup cooked 1/2 cup 2/3 cup 3/4 cup 5 4 4 14 13 5 trace 1 2 1 1 1 Grains Barley Brown rice Pasta-whole wheat Quinoa Lentil pasta Edamame pasta 1/2 cup cooked 1/2 cup 1/2 cup cooked 1/2 cup cooked 1/2 cup cooked 4 2 3 2 17 22 1 trace 1 1 2 3 Legumes and starchy vegetables Garbanzo beans Kidney beans Lentils Potato (with skin) Potatoes, sweet Squash (winter) Green peas, cooked Carnes beans [place], cooked 1/2 cup 1/2 cup 1/2 cup 1 medium 1/2 cup 1/2 cup 1/2 cup 1/2 cup 1/2 cup 4 6 5 3 4 3 4 7 2 1 3 1 1 2 2 1 3 trace Nuts and Seeds Almonds Peanuts Ziebach seeds Walnuts Flaxseed(ground) Osmar Seeds Hemp Seeds 1/4 cup 1/4 cup 1/4 cup 1/4 cup 1/8 c or 2tbsp 1/8 c or 2tbsp 1/8 c or 2tbsp 3 3 3 2 4 10 2 1 1 1 trace 2 7 1 Fruits Apple with skin Banana Blueberries Grapefruit [place] Pear with skin Prunes Strawberries 1 medium 1 medium 1 cup 1/2 cup 1 medium 1 medium 3 1 cup 3 2 2 1 3 4 2 4 1 1 trace 1 2 2 1 1 Vegetables, non-starchy Broccoli Comfort sprouts Cabbage-green Carrot Cauliflower Green beans Kale Spinach Squash (zucchini) 1/2 cup 1/2 cup 1 cup, fresh 1/2 cup, cooked 1/2 cup, cooked 1/2 cup 1/2 cup 1/2 cup 1/2 cup 3 4 2 2 1 2 3 2 1 1 2 1 1 trace 1 1 1 1 How to read a food label Food labels are standardized by the U.S. government's National Labeling and Education Act (NLEA). Nutrition labels and an ingredient list are required on most foods, so that you can make the best selection for a healthy lifestyle. Review the food label below. Determine the total amount of fiber in this product or ask your registered dietitian or healthcare provider to show you how to read food labels and apply the information to your personal needs. In order for a product to be labeled high fiber, it must contain 5 grams or more of dietary fiber per serving. References US Department of Agriculture. 3823-4473 Dietary Guidelines for Americans Accessed 09/15/2015. documented in this encounterOhiohealth O[facility]10-09-2024 NoteHNO ID: [id number] Author: SHARIF FARMER MD Service: ? Author Type: Physician Type: Progress Notes Filed: 01/28/2024 11:10 Note Text: Sharif Farmer M.D. Colon AND Rectal Surgery [address] [facility], [address] [place] [id number] SAUL Avalos is a 78 year old White female with constipation and fecal urgency HPI The patient is a pleasant 78-year-old female who has longstanding issues with urgency and constipation. She notes that about 3 times a week she will have significant urgency and have to [place] to find a restroom. She often has looser stools and rarely will have a semiformed stool. This seems to be largely diet dependent. When she has any constipation she has a very difficult time passing stool and will strain quite hard and because of this she went on once daily prune juice which has kept her stools on the softer side. Years ago she was on a fiber supplement but discontinued this because she was not finding it to be very beneficial. She also notes that many years ago she did go to pelvic floor physical therapy and self discontinued this because she felt like she had hit a plateau. Obstetric history is notable for 2 spontaneous vaginal deliveries the first of which had an episiotomy. Surgical history is notable for 2 colon resections both which were apparently for bowel perforation during colonoscopy about a year apart from each other many years ago. She also has had a laparoscopic cholecystectomy and surgery for ovarian cysts which was remote. Review of Systems Constitutional: Negative for chills, fever and weight loss. HENT: Negative for congestion, ear pain, hearing loss, sinus pain and sore throat. Eyes: Negative for blurred vision, double vision and pain. Respiratory: Negative for cough, shortness of breath and wheezing. Cardiovascular: Negative for chest pain, palpitations and leg swelling. Gastrointestinal: Negative for abdominal pain, blood in stool, constipation, diarrhea, heartburn, nausea and vomiting. Genitourinary: Negative for dysuria, frequency and urgency. Musculoskeletal: Positive for back pain. Negative for joint pain and neck pain. Skin: Negative for itching and rash. Neurological: Negative for dizziness, weakness and headaches. Endo/Heme/Allergies: Negative for environmental allergies. Does not bruise/bleed easily. Psychiatric/Behavioral: Negative for depression and memory loss. The patient is not nervous/anxious and does not have insomnia. 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 CERVICAL SPONDYLOSIS 02/26/2005 Diarrhea Diverticulosis of colon 01/06/2009 Esophageal reflux Hemorrhage of rectum and anus 12/02/2017 HEMORRHOIDS NOS 11/30/2008 HYPERLIPIDEMIA NEC/NOS 03/18/2005 IBS (irritable bowel syndrome) 01/26/2013 Incontinence of feces 11/30/2008 Incontinence of feces 03/09/2021 Osteopenia Palpitations 01/13/2012 Perforation of large intestine (HCC) 12/03/2017 Spondylosis, 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 TIA (transient ischemic attack) 06/17/2017 [place], [place] PAST SURGICAL HISTORY Procedure Laterality Date CHOLECYSTECTOMY HX 03/2018 COLONOSCOPY FLX DX W/COLLJ SPEC WHEN PFRMD 10/20/2003 Colonoscopy COLONOSCOPY FLX DX W/COLLJ SPEC WHEN PFRMD 01/06/2009 Extensive diverticulosis/hemorrhoids COLONOSCOPY FLX DX W/COLLJ SPEC WHEN PFRMD 07/24/2012 [place] COLSC FLEXIBLE W/CONTROL BLEEDING ANY METHOD 12/02/2017 laser of cecal AVM DRAIN ABDOMINAL ABSCESS, PERCUTANEOUS 12/15/2017 perianastomotic abscess EGD 12/02/2017 ESOPHAGOGASTRODUODENOSCOPY TRANSORAL DIAGNOSTIC 07/03/2012 [place] GAMMA KNIFE 1FX TX DELIVERY 02/12/2022 x 3 on 01/15/22; 01/29/22; 02/12/22 HEMORRHOIDECTOMY INT AND XTRNL 2/> COLUMN/HI 10/26/2009 LAMINECTOMY W/RMVL ABNORMAL FACETS LUMBAR 07/08/2011 [place], [place] LAPAROSCOPY COLECTOMY PARTIAL W/ANASTOMOSIS 02/02/2009 LAPAROSCOPY COLECTOMY PARTIAL W/ANASTOMOSIS Right 12/03/2017 LAPS MOBLJ SPLENIC FLXR PFRMD W/PRTL COLECTOMY 02/02/2009 PAST SURGICAL HISTORY OF 1964 ovarian cyst removed PAST SURGICAL HISTORY OF 2001 BREAST BIOPSY--BENIGN PAST SURGICAL HISTORY OF 03/28/2018 Gallbladder removed SIGMOIDOSCOPY FLX CONTROL BLEEDING 03/22/2009 Granulation tissue at anastomosis SIGMOIDOSCOPY FLX W/BIOPSY SINGLE/MULTIPLE 02/28/2011 TOTAL ABDOMINAL HYSTERECT W/WO RMVL TUBE OVARY 02/1990 Hysterectomy, TERI, BSO Social History Tobacco Use Smoking status: Never Smokeless tobacco: Never Vaping Use Vaping status: Never Used Substance Use Topics Alcohol use: No Drug use: No FAMILY HISTORY Problem Relation Age of Onset Breast Cancer Mother dec. age 88 Blood Disease Father (more content not included)...[facility]10-09-2024 History of Present illness Narrative* Sharif Farmer MD - 01/28/2024 9:47 AM EDT Images from the original note were not included. Sharif Farmer M.D. Colon & Rectal Surgery [address] [facility], [address] [place] [id number] SAUL Avalos is a 78 year old White female with constipation and fecal urgency HPI The patient is a pleasant 78-year-old female who has longstanding issues with urgency and constipation. She notes that about 3 times a week she will have significant urgency and have to [place] to find a restroom. She often has looser stools and rarely will have a semiformed stool. This seems to be largely diet dependent. When she has any constipation she has a very difficult time passing stool and will strain quite hard and because of this she went on once daily prune juice which has kept her stools on the softer side. Years ago she was on a fiber supplement but discontinued this because she was not finding it to be very beneficial. She also notes that many years ago she did go to pelvic floor physical therapy and self discontinued this because she felt like she had hit a plateau. Obstetric history is notable for 2 spontaneous vaginal deliveries the first of which had an episiotomy. Surgical history is notable for 2 colon resections both which were apparently for bowel perforationduring colonoscopy about a year apart from each other many years ago. She also has had a laparoscopic cholecystectomy and surgery for ovarian cysts which was remote. Review of Systems Constitutional: Negative for chills, fever and weight loss. HENT: Negative for congestion, ear pain, hearing loss, sinus pain and sore throat. Eyes: Negative for blurred vision, double vision and pain. Respiratory: Negative for cough, shortness of breath and wheezing. Cardiovascular: Negative for chest pain, palpitations and leg swelling. Gastrointestinal: Negative for abdominal pain, blood in stool, constipation, diarrhea, heartburn, nausea and vomiting. Genitourinary: Negative for dysuria, frequency and urgency. Musculoskeletal: Positive for back pain. Negative for joint pain and neck pain. Skin: Negative for itching and rash. Neurological: Negative for dizziness, weakness and headaches. Endo/Heme/Allergies: Negative for environmental allergies. Does not bruise/bleed easily. Psychiatric/Behavioral: Negative for depression and memory loss. The patient is not nervous/anxiousand does not have insomnia. 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 CERVICAL SPONDYLOSIS 02/26/2005 Diarrhea Diverticulosis of colon 01/06/2009 Esophageal reflux Hemorrhage of rectum and anus 12/02/2017 HEMORRHOIDS NOS 11/30/2008 HYPERLIPIDEMIA NEC/NOS 03/18/2005 IBS (irritable bowel syndrome) 01/26/2013 Incontinence of feces 11/30/2008 Incontinence of feces 03/09/2021 Osteopenia Palpitations 01/13/2012 Perforation of large intestine (HCC) 12/03/2017 Spondylosis, 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 TIA (transient ischemic attack) 06/17/2017 [place], [place] PAST SURGICAL HISTORY Procedure Laterality Date CHOLECYSTECTOMY HX 03/2018 COLONOSCOPY FLX DX W/COLLJ SPEC WHEN PFRMD 10/20/2003 Colonoscopy COLONOSCOPY FLX DX W/COLLJ SPEC WHEN PFRMD 01/06/2009 Extensive diverticulosis/hemorrhoids COLONOSCOPY FLX DX W/COLLJ SPEC WHEN PFRMD 07/24/2012 [place] COLSC FLEXIBLE W/CONTROL BLEEDING ANY METHOD 12/02/2017 laser of cecal AVM DRAIN ABDOMINAL ABSCESS, PERCUTANEOUS 12/15/2017 perianastomotic abscess EGD 12/02/2017 ESOPHAGOGASTRODUODENOSCOPY TRANSORAL DIAGNOSTIC 07/03/2012 [place] GAMMA KNIFE 1FX TX DELIVERY 02/12/2022 x 3 on 01/15/22; 01/29/22; 02/12/22 HEMORRHOIDECTOMY INT & XTRNL 2/> COLUMN/HI 10/26/2009 LAMINECTOMY W/RMVL ABNORMAL FACETS LUMBAR 07/08/2011 [place], [place] LAPAROSCOPY COLECTOMY PARTIAL W/ANASTOMOSIS 02/02/2009 LAPAROSCOPY COLECTOMY PARTIAL W/ANASTOMOSIS Right 12/03/2017 LAPS MOBLJ SPLENIC FLXR PFRMD W/PRTL COLECTOMY 02/02/2009 PAST SURGICAL HISTORY OF 1964 ovarian cyst removed PAST SURGICAL HISTORY OF 2001 BREAST BIOPSY--BENIGN PAST SURGICAL HISTORY OF 03/28/2018 Gallbladder removed SIGMOIDOSCOPY FLX CONTROL BLEEDING 03/22/2009 Granulation tissue at anastomosis SIGMOIDOSCOPY FLX W/BIOPSY SINGLE/MULTIPLE 02/28/2011 TOTAL ABDOMINAL HYSTERECT W/WO RMVL TUBE OVARY 02/1990 Hysterectomy, TERI, BSO Social History Tobacco Use Smoking status: Never Smokeless tobacco: Never Vaping Use Vaping status: Never Used Substance Use Topics Alcohol use: No Drug use: No FAMILY HISTORY Problem Relation Age of Onset Breast Cancer Mother dec. age 88 Blood Disease Father PE, post MVA, dec. 53yo Breast Cancer Sister Myositis Sister Inclusion Body Myositis None Sister Alzheimer's Disease Sister other (multiple myeloma) Brother The ROS, medical, surgical, family, and social history were reviewed by Sharif Farmer MD ALLERGIES Allergen Reactions Bactrim [Sulfametho* GI Upset nausea Clindamycin Hcl GI Upset Flagyl [Metronidazo* GI Upset Gadolinium-Containi* Hives Gadolinium/Gadavist Trimethoprim Vomiting Levofloxacin GI Upset Current Outpatient Medications Medication Sig meclizine (ANTIVERT) 12.5 mg tab Take 2 tablets by mouth three times a day as needed. alendronate (FOSAMAX) 70 mg tablet Take 1 tablet by mouth one time a week. Take with a full glass of water, on an empty stomach; do NOT lie down for 30minutes. cetirizine (ZYRTEC) 10 mg tablet Take 10 mg by mouth once daily. naproxen (NAPROSYN) 500 mg tablet Take 1 tablet by mouth two times a day with meals. atorvastatin (LIPITOR) 40 mg tablet TAKE 1 TABLET EVERY DAY AT BEDTIME FOR CHOLESTEROL fluticasone (FLONASE) 50 mcg/actuation nasal spray Use 2 Sprays in each nostril once daily. Rinse mouth after use. carvedilol (COREG) 3.125 mg tablet Cholecalciferol, Vitamin D3, 25 mcg (1,000 unit) cap Take 1 capsule by mouth once daily. VITAMIN E 200 UNIT CAP Take 200 Units by mouth once daily. Perry-3 Fatty Acids (FISH OIL) ORAL Cap Take one(1) capsule daily. MULTIVITAMIN TAB Take one(1) tablet daily. CALCIUM + D 600 MG-200 UNIT TAB Take one(1) tablet daily. ASPIRIN 81 MG TAB Take 81 mg by mouth once daily. No current facility-administered medications for this visit. OBJECTIVE BP 144/81 (BP Site: Left Arm, BP Position: Sitting, BP Cuff Size: Regular Adult) Pulse 71 Ht 160 cm (5' 3) Wt 61.7 kg (136 lb) BMI 24.09 kg/m BMI 24.09 kg/(m^2) Physical Exam Constitutional: General: She is not in acute distress. Appearance: Normal appearance. She is not ill-appearing. Cardiovascular: Rate and Rhythm: Normal rate and regular rhythm. Heart sounds: Normal heart sounds. No murmur heard. No friction rub. No gallop. Pulmonary: Effort: Pulmonary effort is normal. No respiratory distress. Breath sounds: Normal breath sounds. No wheezing or rales. Abdominal: General: There is no distension. Palpations: Abdomen is soft. There is no hepatomegaly. Tenderness: There is no abdominal tenderness. Musculoskeletal: General: No deformity. Normal range of motion. Skin: General: Skin is warm and dry. Findings: No rash. Neurological: Mental Status: She is alert. Coordination: Coordination normal. Gait: Gait normal. Psychiatric: Mood and Affect: Mood normal. Judgment: Judgment normal. Perineum: Anoscopy: The patient was placed in left lateral position. On external exam she has 1 hemorrhoid in the left lateral position with mild mucosal prolapse On digital rectal exam with a lubricated finger she has high tone, paradoxical contraction of the levator muscle with Valsalva, no stricture palpated, small rectocele After digital exam, the lubricated scope was easily inserted to 7 cm. Moderately enlarged hemorrhoids in all 3 tridents and those in the left lateral position have mucosal prolapse Sharif Farmer MD 11:07 AM 01/28/24 Hemoglobin (g/dL) Date Value 12/31/2023 13.9 11/19/2022 13.1 Hematocrit (%) Date Value 12/31/2023 41.9 11/19/2022 38.7 WBC Date Value 12/31/2023 4.26 k/uL 11/19/2022 3.7 x10E3/uL Platelet Count Date Value 12/31/2023 265 k/uL 11/19/2022 228 x10E3/uL Creatinine Date Value Ref Range Status 12/31/2023 0.66 0.58 - 0.96 mg/dL Final AST Date Value Ref Range Status 12/31/2023 28 13 - 35 U/L Final ALT Date Value Ref Range Status 12/31/2023 23 7 - 38 U/L Final Bilirubin, Total (mg/dL) Date Value 12/31/2023 1.0 WBC (k/uL) Date Value 12/31/2023 4.26 RBC (m/uL) Date Value 12/31/2023 4.17 %DIG,%DBS Plan ASSESSMENT/PLAN: 1. Fecal urgency - ICD9: 787.63, ICD10: R15.2 (primary diagnosis) - BFB TRAING W/EMG&AMP;/MANOMETRY EA ADDL 15 MIN CNTCT 2. Outlet dysfunction constipation - ICD9: 564.02, ICD10: K59.02 - BFB TRAING W/EMG&AMP;/MANOMETRY EA ADDL 15 MIN CNTCT I did not appreciate any stricture on this examination, and from the colonoscopy it seems that thiswas thought to be at the anal level but I believe this was more of an issue of a high anorectal tone. She did notably have paradoxical contraction and has a history of pelvic floor issues. I think the next step should be pelvic floor physical therapy which she has used in the past with some benefit. At the same time I would like her to retry a fiber supplement and see if this is helpful keeping her stools moving and a little more consistent. We could consider a new colonoscopy if no improvementbut her last was in April and I think at this point it is better to focus on pelvic floor physical therapy. Follow up: Return for For any new issues or concerns. Sharif Farmer M.D. Please Note: This office note has been created using [employer], a speech recognition software program, and may contain errors including punctuation, grammar, spelling, gender, and inappropriate words or phrases that pertain to the sytem. documented in this encounterOhiohealth O[facility]09-26-[facility]24 NoteHNO ID: [id number] Author: MALIA DEL REAL RN Service: ? Author Type: Registered Nurse Type: Progress Notes Filed: 01/15/2024 16:57 Note Text: CC [facility]AL [facility]ANET NURSE - CHART REVIEW Provider FYI PCC Action Chart review 08/31/23 [facility] ED for rectal pressure and change in bowel habit. Imaging negative for acute process. ED recommended/agreed with her to not allow more than 1 day go by without having a bowel movement. We have discussed trying prune juice first. If this does not work than adding a small amount of milk of magnesium would be of benefit. Discussed that patient has an anal stricture which was found on her most recent colonoscopy with Dr. Reid. Patient also has prolapsing internal hemorrhoids. These two factors may be causing the rectal pressure and the challenge of having a bowel movement at times. DC home. Pt identified by name and . Reason for Review: Payor request Patient Attributed To: QAE Payer: LYNNE Chart Review For: Utilization: ED Total Patient High CostTotal Patient High Cost {HIGH COST:605877) Quality measure review Payor request for assistance Action Taken: No action needed Malia Del Real RN January 15, 2024 4:[address] [facility]09-26-2024 History of Present illness Narrative* Malia Del Real RN - 01/15/2024 4:47 PM EDT CC [facility]AL [facility] NURSE - CHART REVIEW Provider [facility] Action Chart review 08/31/23 [facility] ED for rectal pressure and change in bowel habit. Imaging negative for acute process. ED recommended/agreed with her to not allow more than 1 day go by without having a bowel movement. We have discussed trying prune juice first. If this does not work than adding a small amount of milk of magnesium would be of benefit. Discussed thatpatient has an anal stricture which was found on her most recent colonoscopy with Dr. Reid. Patient also has prolapsing internal hemorrhoids. These two factors may be causing the rectal pressure and the challenge of having a bowel movement at times. DC home. Pt identified by name and . Reason for Review: Payor request Patient Attributed To: QAE Payer: [employer] Chart Review For: Utilization: ED Total Patient High CostTotal Patient High Cost {HIGH COST:805633) Quality measure review Payor request for assistance Action Taken: No action needed Malia Del Real RN January 15, 2024 4:47 PM documented in this encounterOhiohealth O'[facility]len[facility]09-26-2024 NotePatient Outreach ([facility]) FANNIE AVALOS ([id number]) 1945 F Date Time Provider Department 01/15/24 MALIA DEL REAL [facility] [place] During your visit today, we recorded the following information about you: Malia Del Real RN 01/15/2024 4:57 PM Signed CC [facility]AL [facility]ET NURSE - CHART REVIEW Provider [facility] Action Chart review 08/31/23 [facility] ED for rectal pressure and change in bowel habit. Imaging negative for acute process. ED recommended/agreed with her to not allow more than 1 day go by without having a bowel movement. We have discussed trying prune juice first. If this does not work than adding a small amount of milk of magnesium would be of benefit. Discussed that patient has an anal stricture which was found on her most recent colonoscopy with Dr. Reid. Patient also has prolapsing internal hemorrhoids. These two factors may be causing the rectal pressure and the challenge of having a bowel movement at times. DC home. Pt identified by name and . Reason for Review: Payor request Patient Attributed To: PAULE Payer: LYNNE Chart Review For: Utilization: ED Total Patient High CostTotal Patient High Cost {HIGH COST:606399) Quality measure review Payor request for assistance Action Taken: No action needed Malia Del Real RN January 15, 2024 4:47 PM Allergies As of Date: 01/15/2024 Noted Allergy Reaction BACTRIM (SULFAMETHOXAZOLE-TRIMETH*02/25/2005 8 - GI Upset Comments: nausea CLINDAMYCIN HCL 09/25/2010 8 - GI Upset FLAGYL (METRONIDAZOLE HCL) 10/19/2009 8 - GI Upset GADOLINIUM-CONTAINING CONTRAST ME*10/28/2017 4 - Hives Comments: Gadolinium/Gadavist TRIMETHOPRIM 12/30/2018 11 - Vomiting LEVOFLOXACIN 12/30/2018 8 - GI Upset Date Reviewed: 01/08/2024 Reviewed by: Ann-Marie Chen LPN - Fully Assessed Prescriptions as of 01/15/2024 - meclizine (ANTIVERT) 12.5 mg tab Take 2 tablets by mouth three times a day as needed. - alendronate (FOSAMAX) 70 mg tablet Take 1 tablet by mouth one time a week. Take with a full glass of water, on an empty stomach; do NOT lie down for 30minutes. - cetirizine (ZYRTEC) 10 mg tablet Take 10 mg by mouth once daily. - naproxen (NAPROSYN) 500 mg tablet Take 1 tablet by mouth two times a day with meals. - atorvastatin (LIPITOR) 40 mg tablet TAKE 1 TABLET EVERY DAY AT BEDTIME FOR CHOLESTEROL - fluticasone (FLONASE) 50 mcg/actuation nasal spray Use 2 Sprays in each nostril once daily. Rinse mouth after use. - carvedilol (COREG) 3.125 mg tablet - Cholecalciferol, Vitamin D3, 25 mcg (1,000 unit) cap Take 1 capsule by mouth once daily. - VITAMIN E 200 UNIT CAP Take 200 Units by mouth once daily. - Perry-3 Fatty Acids (FISH OIL) ORAL Cap Take one(1) capsule daily. - MULTIVITAMIN TAB Take one(1) tablet daily. - CALCIUM + D 600 MG-200 UNIT TAB Take one(1) tablet daily. - ASPIRIN 81 MG TAB Take 81 mg by mouth once daily. Problem List As Of Date 01/15/2024 Noted Resolved Cervical spondylosis without myelopathy [M47.81*02/26/2005 10/04/2013 Hyperlipidemia [E78.5] 03/18/2005 Family history of malignant neoplasm of breast *10/16/2005 02/27/2022 Unspecified Chest Pain [R07.9] 12/03/2005 12/07/2009 Other Malaise and Fatigue [R53.81, R53.83] 12/03/2005 12/07/2009 Anxiety state, unspecified [F41.1] 01/15/2007 01/13/2012 Benign neoplasm of colon [D12.6] 11/30/2008 02/27/2022 Incontinence of Feces [787.6] 11/30/2008 12/07/2009 Unspecified hemorrhoids without mention of comp*11/30/2008 10/04/2013 Allergic rhinitis [J30.9] 11/30/2008 Diverticulosis of colon [K57.30] 01/06/2009 12/31/2016 Rectal bleeding [K62.5] 03/09/2009 01/13/2012 Spondylosis, 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] 12/07/2009 10/04/2013 Enthesopathy of hip region [M76.899] 02/04/2011 01/13/2012 Diarrhea [R19.7] 02/08/2014 Anal fissure [K60.2] 03/07/2011 02/08/2014 Palpitations [R00.2] 01/13/2012 IBS (irritable bowel syndrome) [K58.9] 01/26/2013 Rectocele [N81.6] 03/02/2013 10/04/2013 Age-related osteoporosis without current pathol*10/27/2013 Carotid disease, bilateral (HCC) [I77.9] 01/03/2016 05/14/2019 Benign meningioma of brain (HCC) [D32.0] 10/28/2017 Muscle weakness [M62.81] 11/25/2018 05/14/2019 Carotid artery stenosis [I65.29] 05/14/2019 Incontinence of feces [R15.9] 03/09/2021 11/12/2022 Benign neoplasm of meninges (HCC) [D32.9] 09/13/2021 Acute left-sided thoracic back pain [M54.6] 11/26/2021 02/27/2022 Left Achilles tendinitis [M76.62] 11/26/2021 02/27/2022 Memory disturbance [R41.3] 02/28/2022 Encounter Status:Closed by MALIA DEL REAL on 01/15/24[facility]09-19-2024 NoteHNO ID: [id number] Author: GAVIN TRAN MD Service: ? Author Type: Physician Type: Progress Notes Filed: 01/08/2024 15:01 Note Text: This note was created using NoteWriter. Saul Avalos is a 78 year old female had ongoing dizziness for several weeks, which worsened and prompted ER visit 12/31/23. Symptoms were unsteadiness that lasted a few minutes, and aggravated by movement. This was in the setting of stressors. She was seen in the ED and labs, EKG, CT brain were negative. Exam was within normal limits. She was discharged on meclizine and symptoms improved with time. Review of Systems Constitutional: Negative for diaphoresis, fatigue and fever. HENT: Negative for ear pain, hearing loss and tinnitus. Eyes: Negative for visual disturbance. Respiratory: Negative. Cardiovascular: Negative. Neurological: Negative for syncope, weakness and numbness. 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 alendronate (FOSAMAX) 70 mg tablet Take 1 tablet by mouth one time a week. Take with a full glass of water, on an empty stomach; do NOT lie down for 30minutes. cetirizine (ZYRTEC) 10 mg tablet Take 10 mg by mouth once daily. naproxen (NAPROSYN) 500 mg tablet Take 1 tablet by mouth two times a day with meals. atorvastatin (LIPITOR) 40 mg tablet TAKE 1 TABLET EVERY DAY AT BEDTIME FOR CHOLESTEROL fluticasone (FLONASE) 50 mcg/actuation nasal spray Use 2 Sprays in each nostril once daily. Rinse mouth after use. carvedilol (COREG) 3.125 mg tablet Cholecalciferol, Vitamin D3, 25 mcg (1,000 unit) cap Take 1 capsule by mouth once daily. VITAMIN E 200 UNIT CAP Take 200 Units by mouth once daily. Perry-3 Fatty Acids (FISH OIL) ORAL Cap Take one(1) capsule daily. MULTIVITAMIN TAB Take one(1) tablet daily. CALCIUM + D 600 MG-200 UNIT TAB Take one(1) tablet daily. ASPIRIN 81 MG TAB Take 81 mg by mouth once daily. No current facility-administered medications for this visit. Objective BP 117/79 (BP Site: Left Arm, BP Position: Supine, BP Cuff Size: Large Adult) Pulse 80 Temp 36.7 ?C (98 ?F) (Temporal) Wt 62.1 kg (136 lb 14.5 oz) BMI 24.56 kg/m? Physical Exam Constitutional: Appearance: Normal appearance. HENT: Head: Normocephalic. Right Ear: Tympanic membrane normal. There is no impacted cerumen. Left Ear: Tympanic membrane normal. There is impacted cerumen. Nose: Nose normal. Eyes: Extraocular Movements: Extraocular movements intact. Conjunctiva/sclera: Conjunctivae normal. Cardiovascular: Rate and Rhythm: Regular rhythm. Tachycardia present. Pulmonary: Breath sounds: Normal breath sounds. Neurological: General: No focal deficit present. Mental Status: She is alert. Cranial Nerves: No cranial nerve deficit. Sensory: No sensory deficit. Motor: No weakness. Coordination: Coordination normal. Gait: Gait normal. Assessment and Plan 1. Vertigo - ICD9: 780.4, ICD10: R42 (primary diagnosis) Resolved. Consider PT if recurrent. 2. Need for influenza vaccination - ICD9: V04.81, ICD10: Z23 - INFLUENZA VACCINE, PRSV FREE, AGE 65+ YR, HIGH DOSE, TRIVALENT (FLUZONE HIGH-DOSE) Gavin Tran [facility]09-19-2024 History of Present illness Narrative* Gavin Tran MD - 01/08/2024 2:30 PM EDT This note was created using [employer]. Subjective Fannie Guzmán Bailey is a 78 year old female had ongoing dizziness for several weeks, which worsened and prompted ER visit 12/31/23. Symptoms were unsteadiness that lasted a few minutes, and aggravated bymovement. This was in the setting of stressors. She was seen in the ED and labs, EKG, CT brain werenegative. Exam was within normal limits. She was discharged on meclizine and symptoms improved withtime. Review of Systems Constitutional: Negative for diaphoresis, fatigue and fever. HENT: Negative for ear pain, hearing loss and tinnitus. Eyes: Negative for visual disturbance. Respiratory: Negative. Cardiovascular: Negative. Neurological: Negative for syncope, weakness and numbness. 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 alendronate (FOSAMAX) 70 mg tablet Take 1 tablet by mouth one time a week. Take with a full glass of water, on an empty stomach; do NOT lie down for 30minutes. cetirizine (ZYRTEC) 10 mg tablet Take 10 mg by mouth once daily. naproxen (NAPROSYN) 500 mg tablet Take 1 tablet by mouth two times a day with meals. atorvastatin (LIPITOR) 40 mg tablet TAKE 1 TABLET EVERY DAY AT BEDTIME FOR CHOLESTEROL fluticasone (FLONASE) 50 mcg/actuation nasal spray Use 2 Sprays in each nostril once daily. Rinse mouth after use. carvedilol (COREG) 3.125 mg tablet Cholecalciferol, Vitamin D3, 25 mcg (1,000 unit) cap Take 1 capsule by mouth once daily. VITAMIN E 200 UNIT CAP Take 200 Units by mouth once daily. Perry-3 Fatty Acids (FISH OIL) ORAL Cap Take one(1) capsule daily. MULTIVITAMIN TAB Take one(1) tablet daily. CALCIUM + D 600 MG-200 UNIT TAB Take one(1) tablet daily. ASPIRIN 81 MG TAB Take 81 mg by mouth once daily. No current facility-administered medications for this visit. Objective BP 117/79 (BP Site: Left Arm, BP Position: Supine, BP Cuff Size: Large Adult) Pulse 80 Temp 36.7 C (98 F) (Temporal) Wt 62.1 kg (136 lb 14.5 oz) BMI 24.56 kg/m Physical Exam Constitutional: Appearance: Normal appearance. HENT: Head: Normocephalic. Right Ear: Tympanic membrane normal. There is no impacted cerumen. Left Ear: Tympanic membrane normal. There is impacted cerumen. Nose: Nose normal. Eyes: Extraocular Movements: Extraocular movements intact. Conjunctiva/sclera: Conjunctivae normal. Cardiovascular: Rate and Rhythm: Regular rhythm. Tachycardia present. Pulmonary: Breath sounds: Normal breath sounds. Neurological: General: No focal deficit present. Mental Status: She is alert. Cranial Nerves: No cranial nerve deficit. Sensory: No sensory deficit. Motor: No weakness. Coordination: Coordination normal. Gait: Gait normal. Assessment and Plan 1. Vertigo - ICD9: 780.4, ICD10: R42 (primary diagnosis) Resolved. Consider PT if recurrent. 2. Need for influenza vaccination - ICD9: V04.81, ICD10: Z23 - INFLUENZA VACCINE, PRSV FREE, AGE 65+ YR, HIGH DOSE, TRIVALENT (FLUZONE HIGH-DOSE) Gavin Tran MD documented in this encounterOhiohealth O[facility]09-11-2024 [id number] (AGENT OF COVID-19) RNA: Not detected INFLUENZA A RNA: Not detected INFLUENZA B RNA: Not detected RESPIRATORY SYNCYTIAL VIRUS (RSV) RNA: Not detectedNorthern Light Inland HospitalComment on above:Performed By: #### [id number] ####[facility] LABCLIA [id number] [place] [address] [facility]08-27-2024 Instructions* Patient Instructions* Catina Reddy, SENIOR GAMES TECHNICIAN.FINANCE SPECIALIST - 12/16/2023 11:01 AM EDT You have been diagnosed with osteoporosis. Osteoporosis is a disease affecting your bones. As a result your bones are weaker than a normal healthy individual and more likely to break than normal bone. This can occur with little or no trauma such as coughing or sneezing. While not every one with osteoporosis breaks bones, it is associated with a higher risk of breaking them, especially as you get older. If you have not had one, you should arrange to have a bone mineral density test (also known as a DXA, pronounced dexa, test). This should be repeated on the same machine each time you have one if at all possible. There may be other investigations you need such as blood tests or urine tests. There are several things you can do to combat osteoporosis such as: -- weight-bearing exercise -- preventing falls -- stopping smoking if you smoke -- avoiding excessive alcohol use if you drink alcohol -- occasionally changing or altering medications you are taking. In addition you should take Calcium and Vitamin D every day. This can be from foods you eat or drink normally or in the form of supplements. The recommended dose of calcium daily is 1000-1200mg dailyusually. Further information can be obtained from the web-sites listed below. The recommended dose of vitamin D is 400 IU to 800 IU daily. Occasionally you may need more, especially if your 25 hydroxy vitamin D level is low. Further information can be obtained below. Hip pads can prevent hip fractures if you are prone to falling and they can be obtained through your pharmacy or through [email or web address]. Other braces or supports may be helpful at times. Lastly there are several medications available now for the treatment and prevention of osteoporosisand you may be a candidate for one or more of these therapies. Remember BONE matters: B - bone density and bone marker studies O - office visit with your doctor at regular intervals N - no smoking, falling, excessive alcohol. E - education and eat healthy foods and recommended calcium and vitamin D. More information can be obtained from the [facility] Website at [email or web address] and enter osteoporosis center in the search window Also: National Osteoporosis Foundation: http://www.NOF.org International Society for Clinical Densitometry: http://www.iscd.org NIH osteoporosis website: http://www.osteo.org documented in this encounterOhiohealth O'Bleness [facility]08-27-2024 History of Present illness Narrative* Catina Reddy APRN.CNP - 12/16/2023 10:48 AM EDT CC: Patient presents with: Follow Up: Bone scan results HPI Fannie Avalos is a 78 year old female who presents today for above. Patient saw my chart resultsof bone density screening and was concerned about results indicating osteoporosis with worsening bone loss. She denies insufficiency fractures. Denies history of GERD, Claudio's esophagus, poor dentition, dental implants, frequent NSAID use. She is seeing a chiropractor for chronic back pain. There has been overall improvement since starting water based exercise program. She has noticed increasing difficulty with balance but denies falls. Plans on starting a balance exercise program with Silver Sneakers. Bowel issues are worsening, hasa history of rectal strictures. Scheduled with general surgeon next month for further evaluation. Review of Systems See HPI 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 02/26/2005: CERVICAL SPONDYLOSIS No date: Diarrhea 01/06/2009: Diverticulosis of colon No date: Esophageal reflux 12/02/2017: Hemorrhage of rectum and anus 11/30/2008: HEMORRHOIDS NOS 03/18/2005: HYPERLIPIDEMIA NEC/NOS 01/26/2013: IBS (irritable bowel syndrome) 11/30/2008: Incontinence of feces 03/09/2021: Incontinence of feces No date: Osteopenia 01/13/2012: Palpitations 12/03/2017: Perforation of large intestine (HCC) 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, thoracic 06/17/2017: TIA (transient ischemic attack) Comment: [facility] [place] PAST SURGICAL HISTORY 03/2018: CHOLECYSTECTOMY HX 10/20/2003: COLONOSCOPY FLX DX W/COLLJ SPEC WHEN PFRMD Comment: Colonoscopy 01/06/2009: COLONOSCOPY FLX DX W/COLLJ SPEC WHEN PFRMD Comment: Extensive diverticulosis/hemorrhoids 07/24/2012: COLONOSCOPY FLX DX W/COLLJ SPEC WHEN PFRMD Comment: Colonoscopy in [place] 12/02/2017: COLSC FLEXIBLE W/CONTROL BLEEDING ANY METHOD Comment: laser of cecal AVM 12/15/2017: DRAIN ABDOMINAL ABSCESS, PERCUTANEOUS Comment: perianastomotic abscess 12/02/2017: EGD 07/03/2012: ESOPHAGOGASTRODUODENOSCOPY TRANSORAL DIAGNOSTIC Comment: EGD in [place] 02/12/2022: GAMMA KNIFE 1FX TX DELIVERY Comment: x 3 on 01/15/22; 01/29/22; 02/12/22 10/26/2009: HEMORRHOIDECTOMY INT & XTRNL 2/> COLUMN/HI 07/08/2011: LAMINECTOMY W/RMVL ABNORMAL FACETS LUMBAR Comment: [facility] [place] 02/02/2009: LAPAROSCOPY COLECTOMY PARTIAL W/ANASTOMOSIS 12/03/2017: LAPAROSCOPY COLECTOMY PARTIAL W/ANASTOMOSIS; Right 02/02/2009: LAPS MOBLJ SPLENIC FLXR PFRMD W/PRTL COLECTOMY 1964: PAST SURGICAL HISTORY OF Comment: ovarian cyst removed 2001: PAST SURGICAL HISTORY OF Comment: BREAST BIOPSY--BENIGN 03/28/2018: PAST SURGICAL HISTORY OF Comment: Gallbladder removed 03/22/2009: SIGMOIDOSCOPY FLX CONTROL BLEEDING Comment: Granulation tissue at anastomosis 02/28/2011: SIGMOIDOSCOPY FLX W/BIOPSY SINGLE/MULTIPLE 02/1990: TOTAL ABDOMINAL HYSTERECT W/WO RMVL TUBE OVARY Comment: Hysterectomy, TERI, BSO ALLERGIES Bactrim [Sulfamethoxazole-Trimethoprim], Clindamycin Hcl, Flagyl [Metronidazole Hcl], Gadolinium-Containing Contrast Media, Trimethoprim, and Levofloxacin MEDICATIONS cetirizine (ZYRTEC) 10 mg tablet Take 10 mg by mouth once daily. meclizine (ANTIVERT) 25 mg tab Take 1 tablet by mouth every 6 hours as needed (dizziness). naproxen (NAPROSYN) 500 mg tablet Take 1 tablet by mouth two times a day with meals. atorvastatin (LIPITOR) 40 mg tablet TAKE 1 TABLET EVERY DAY AT BEDTIME FOR CHOLESTEROL fluticasone (FLONASE) 50 mcg/actuation nasal spray Use 2 Sprays in each nostril once daily. Rinse mouth after use. carvedilol (COREG) 3.125 mg tablet Cholecalciferol, Vitamin D3, 25 mcg (1,000 unit) cap Take 1 capsule by mouth once daily. VITAMIN E 200 UNIT CAP Take 200 Units by mouth once daily. Perry-3 Fatty Acids (FISH OIL) ORAL Cap Take one(1) capsule daily. MULTIVITAMIN TAB Take one(1) tablet daily. CALCIUM + D 600 MG-200 UNIT TAB Take one(1) tablet daily. ASPIRIN 81 MG TAB Take 81 mg by mouth once daily. FAMILY HISTORY Problem Relation Age of Onset Breast Cancer Mother dec. age 88 Blood Disease Father PE, post MVA, dec. 53yo Breast Cancer Sister Myositis Sister Inclusion Body Myositis None Sister Alzheimer's Disease Sister other (multiple myeloma) Brother Social History Tobacco Use Smoking status: Never Smokeless tobacco: Never Vaping Use Vaping status: Never Used Substance Use Topics Alcohol use: No Drug use: No BP 132/78 Pulse 78 Resp 18 Wt 61.8 kg (136 lb 3.9 oz) SpO2 98% BMI 24.44 kg/m Physical Exam Vitals reviewed. Constitutional: Appearance: Normal appearance. Neurological: Mental Status: She is alert. Psychiatric: Mood and Affect: Affect normal. Mood is anxious. DATA REVIEWED: Most recent bone density ASSESSMENT/PLAN: 1. Age-related osteoporosis without current pathological fracture - ICD9: 733.01, ICD10: M81.0 (primary diagnosis) - begin tx with alendronate (Fosamax) - Reviewed the need for Calcium and Vitamin D supplements and weight bearing exercise as tolerated 2. Unsteady gait - ICD9: 781.2, ICD10: R26.81 Recommend PT if program with Silver Sneakers does not help 3. Irritable bowel syndrome with diarrhea - ICD9: 564.1, ICD10: K58.0 Worsening symptoms possibly secondary to rectal stricture. Follow-up with general surgeon as scheduled. 4. Chronic back pain, unspecified back location, unspecified back pain laterality - ICD9: 724.5, 338.29, ICD10: M54.9, G89.29 Continue with current treatments. Consider PT if pain persists. Prescription instructions reviewed with patient as applicable. Potential red flag symptoms discussed with the patient. Reviewed appropriate action plan to take if red flag symptoms occur. Patient agreeable to treatment plan. During this patient visit I have spent approximately 30 minutes in counseling regarding treatment options, medications, test results and coordinating care. Catina Reddy APRN.FINANCE SPECIALIST documented in this encounterOhiohealth O'Bleness [facility]08-08-2024 History of Present illness Narrative* Saurabh Larsen PA - 11/27/2023 1:53 PM EDT Images from the original note were not included. This note was created using Edúkameriter. Saul Hernandezs is a 78 year old female. HPI 78-year-old female presents for left sided thoracic pain. Patient states that she has been having on and off left-sided thoracic back pain since August. She was seen in the ER for it back in August, had a CT of the chest, blood work and was told it was most likely muscular. She was given diazepam. Patient states that she has been having on and off pain that flares up from time to time in the thoracic back since then. Patient states that yesterday she started having worsening pain under the left shoulder blade it feels like a muscle spasm. Pain is worse with movement. She did take Tylenol Extra Strength, use a lidocaine patch and took one of her diazepam that she had leftover. She states none of this really helped with her pain. She denies any numbness or tingling in the arms or legs. No chest pain or shortness of breath. No cough. No fevers. No fall or injury. No bowel or bladder dysfunction. No other complaint. Review of Systems Constitutional: Negative for chills and fever. HENT: Negative for congestion, ear pain and sore throat. Respiratory: Negative for cough and shortness of breath. Cardiovascular: Negative for chest pain. Gastrointestinal: Negative for diarrhea and vomiting. Musculoskeletal: Positive for back pain. Negative for myalgias. Objective BP 144/80 Pulse 80 Temp 36.8 C (98.2 F) Resp 21 Wt 61.2 kg (134 lb 14.7 oz) SpO2 98% BMI 24.21 kg/m Physical Exam Vitals and nursing note reviewed. Constitutional: General: She is not in acute distress. Appearance: Normal appearance. She is not toxic-appearing. Cardiovascular: Rate and Rhythm: Normal rate and regular rhythm. Pulmonary: Effort: Pulmonary effort is normal. Breath sounds: Normal breath sounds. Musculoskeletal: Thoracic back: Spasms and tenderness present. No bony tenderness. Decreased range of motion. Back: Comments: Spasm noted over left thoracic paraspinal muscle with tenderness. No midline tenderness. No bony step-offs or deformities. Normal strength and sensation all extremities. Movement of the back exacerbates the pain. No rash present. Skin: General: Skin is warm and dry. Neurological: Mental Status: She is alert. Assessment and Plan ASSESSMENT/PLAN: 1. Acute left-sided thoracic back pain - ICD9: 724.1, ICD10: M54.6 - Suspect musculoskeletal. - Ice for localized tenderness -May continue lidocaine patch, Tylenol. -Rx for Medrol Dosepak. -Recommend follow-up with PCP next week for reevaluation. May benefit from physical therapy since this pain has been intermittent for months. -Discussed red flag symptoms and when to go to ER Diagnosis and treatment plan were discussed and questions were answered to the patient's satisfaction. Pt acknowledged understanding of concepts and follow up plan. Specific signs and symptoms that would indicate the need for higher level of care were discussed in detail warranting prompt ER evaluation. SENDY Banda documented in this encounterOhiohealth O'[facility]len[facility]08-01-2024 History of Present illness Narrative* Mason Turner RT(R) - 11/20/2023 10:05 AM EDT Radiology Service Progress Note PATIENT NAME: Fannie Avalos DATE OF SERVICE: November 20, 2023 TIME: 10:10 AM PATIENT IDENTITY VERIFICATION COMPLETED USING TWO (2) IDENTIFIERS: Name and Date of confirmedby patient verbally. FALL SCREENING: Has the patient had 2 falls in the last year or 1 fall with injury or currently using an Ambulatory Assistive Device (Walker, Cane, Wheelchair, Crutches, etc.)? No PATIENT GENDER DATA: Female. status: : No status: NO. PATIENT RELEVANT IMPLANT DATA REVIEWED: Not Applicable PATIENT PRESENTS WITH AN IMPLANTABLE OR ATTACHED VAT TENDER: No RADIOLOGY DEPARTMENT: Bone Density PERIPHERAL IV DATA: Not applicable SIGNED BY: RT Wesley(R) November 20, 2023 10:10 AM documented in this encounterOhiohealth O'Blen[facility]06-30-2024 History of Present illness Narrative* Dayan Del Rosario PA-C - 10/19/2023 12:19 PM EDT Images from the original note were not included. This note was created using Arsanister. Subjective Fannie Avalos is a 78 year old female. HPI Presents with a rash on both of her forearms over the past 3 days. She was doing some weeding abouta week ago in her garden. She also has been feeding and putting a new cat in the neighborhood. She denies any new medications. No new lotions or soaps. No new detergent. She has not had this rash previously. She states she typically does not react to poison christo either. No fever or chills. No sore throat. She has used hydrocortisone and calamine without relief. It is very itchy. She started to getsome blistering on it the past day. Review of Systems Constitutional: Negative. HENT: Negative. Respiratory: Negative. Cardiovascular: Negative. Gastrointestinal: Negative. Skin: Positive for rash. All other systems reviewed and are negative. 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 CERVICAL SPONDYLOSIS 02/26/2005 Diarrhea Diverticulosis of colon 01/06/2009 Esophageal reflux Hemorrhage of rectum and anus 12/02/2017 HEMORRHOIDS NOS 11/30/2008 HYPERLIPIDEMIA NEC/NOS 03/18/2005 IBS (irritable bowel syndrome) 01/26/2013 Incontinence of feces 11/30/2008 Incontinence of feces 03/09/2021 Osteopenia Palpitations 01/13/2012 Perforation of large intestine (HCC) 12/03/2017 Spondylosis, 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 TIA (transient ischemic attack) 06/17/2017 [place], [place] Current Outpatient Medications Medication Sig Dispense Refill predniSONE (DELTASONE) 10 mg tablet Take 4 tabs daily for 3 days, then 2 tabs daily for 3 days, then 1 tab daily for 3 days with food. 21 tablet 0 cetirizine (ZYRTEC) 10 mg tablet Take 10 mg by mouth once daily. meclizine (ANTIVERT) 25 mg tab Take 1 tablet by mouth every 6 hours as needed (dizziness). 15 tablet 0 naproxen (NAPROSYN) 500 mg tablet Take 1 tablet by mouth two times a day with meals. 30 tablet 0 atorvastatin (LIPITOR) 40 mg tablet TAKE 1 TABLET EVERY DAY AT BEDTIME FOR CHOLESTEROL 90 tablet 3 fluticasone (FLONASE) 50 mcg/actuation nasal spray Use 2 Sprays in each nostril once daily. Rinse mouth after use. 1 Each 0 carvedilol (COREG) 3.125 mg tablet Cholecalciferol, Vitamin D3, 25 mcg (1,000 unit) cap Take 1 capsule by mouth once daily. VITAMIN E 200 UNIT CAP Take 200 Units by mouth once daily. 0 Perry-3 Fatty Acids (FISH OIL) ORAL Cap Take one(1) capsule daily. 0 MULTIVITAMIN TAB Take one(1) tablet daily. 0 CALCIUM + D 600 MG-200 UNIT TAB Take one(1) tablet daily. 0 ASPIRIN 81 MG TAB Take 81 mg by mouth once daily. 0 No current facility-administered medications for this visit. PAST SURGICAL HISTORY Procedure Laterality Date CHOLECYSTECTOMY HX 03/2018 COLONOSCOPY FLX DX W/COLLJ SPEC WHEN PFRMD 10/20/2003 Colonoscopy COLONOSCOPY FLX DX W/COLLJ SPEC WHEN PFRMD 01/06/2009 Extensive diverticulosis/hemorrhoids COLONOSCOPY FLX DX W/COLLJ SPEC WHEN PFRMD 07/24/2012 Colonoscopy in [place] COLSC FLEXIBLE W/CONTROL BLEEDING ANY METHOD 12/02/2017 laser of cecal AVM DRAIN ABDOMINAL ABSCESS, PERCUTANEOUS 12/15/2017 perianastomotic abscess EGD 12/02/2017 ESOPHAGOGASTRODUODENOSCOPY TRANSORAL DIAGNOSTIC 07/03/2012 EGD in [place] GAMMA KNIFE 1FX TX DELIVERY 02/12/2022 x 3 on 01/15/22; 01/29/22; 02/12/22 HEMORRHOIDECTOMY INT & XTRNL 2/> COLUMN/HI 10/26/2009 LAMINECTOMY W/RMVL ABNORMAL FACETS LUMBAR 07/08/2011 [place], [place] LAPAROSCOPY COLECTOMY PARTIAL W/ANASTOMOSIS 02/02/2009 LAPAROSCOPY COLECTOMY PARTIAL W/ANASTOMOSIS Right 12/03/2017 LAPS MOBLJ SPLENIC FLXR PFRMD W/PRTL COLECTOMY 02/02/2009 PAST SURGICAL HISTORY OF 1964 ovarian cyst removed PAST SURGICAL HISTORY OF 2001 BREAST BIOPSY--BENIGN PAST SURGICAL HISTORY OF 03/28/2018 Gallbladder removed SIGMOIDOSCOPY FLX CONTROL BLEEDING 03/22/2009 Granulation tissue at anastomosis SIGMOIDOSCOPY FLX W/BIOPSY SINGLE/MULTIPLE 02/28/2011 TOTAL ABDOMINAL HYSTERECT W/WO RMVL TUBE OVARY 02/1990 Hysterectomy, TERI, BSO FAMILY HISTORY Problem Relation Age of Onset Breast Cancer Mother dec. age 88 Blood Disease Father PE, post MVA, dec. 53yo Breast Cancer Sister Myositis Sister Inclusion Body Myositis None Sister Alzheimer's Disease Sister other (multiple myeloma) Brother Social History Tobacco Use Smoking status: Never Smokeless tobacco: Never Vaping Use Vaping Use: Never used Substance Use Topics Alcohol use: No Drug use: No Objective BP 122/74 Pulse 76 Temp 37.1 C (98.7 F) Resp 16 Wt 61 kg (134 lb 7.7 oz) SpO2 98% BMI 24.13 kg/m Physical Exam Vitals reviewed. Constitutional: Appearance: Normal appearance. HENT: Head: Normocephalic and atraumatic. Skin: General: Skin is warm and dry. Comments: Has multiple patches of erythematous vesicular rash on her bilateral forearms and right upper arm. No sign of secondary cellulitis. No petechia or purpura. Neurological: Mental Status: She is alert. Assessment and Plan ASSESSMENT/PLAN: 1. Allergic contact dermatitis due to food in contact with skin - ICD9: 692.5, ICD10: L23.6 Will treat with prednisone taper. May continue topical hydrocortisone and discussed using Zyrtec orClaritin for itch. Follow-up if not improving. Discussed skin care. Patient agreeable with plan. Dayan Del Rosario PA-C documented in this encounterOhiohealth O'Blen[facility]06-17-2024 History of Present illness Narrative* Major Wan RT(R) - 10/06/2023 2:20 PM EDT Radiology Service Progress Note PATIENT NAME: Fannie Avalos DATE OF SERVICE: October 06, 2023 TIME: 2:29 PM PATIENT IDENTITY VERIFICATION COMPLETED USING TWO (2) IDENTIFIERS: Name and Date of confirmedby patient verbally. FALL SCREENING: Has the patient had 2 falls in the last year or 1 fall with injury or currently using an Ambulatory Assistive Device (Walker, Cane, Wheelchair, Crutches, etc.)? No PATIENT GENDER DATA: Female. status: : No status: NO. PATIENT RELEVANT IMPLANT DATA REVIEWED: Not Applicable PATIENT PRESENTS WITH AN IMPLANTABLE OR ATTACHED VAT TENDER: No RADIOLOGY DEPARTMENT: General X-ray: Exam(s) Completed: Lower Extremity X- Ray(s): Knee, AP / Lat / Tunne / Merchant Right and Wt. Bearing PERIPHERAL IV DATA: Not applicable SIGNED BY: RT Joanie(R) October 06, 2023 2:29 PM documented in this encounterOhiohealth O'Bleness [facility]06-17-2024 Instructions* Patient Instructions* Catina Reddy APRN.JUAN - 10/06/2023 1:51 PM EDT BONE MINERAL DENSITY PATIENT INSTRUCTIONS Bone mineral density testing measures the amount of calcium in certain parts of your bones. This information determines how strong your bones are. The test is used to detect osteoporosis, a disease in which the bone's mineral content and density are low, increasing a person's risk of fractures. Thelumbar spine (lower back) and the hip are the skeletal sites usually examined. For the test, remember that: 1. You cannot take this test if you are . 2. Eat a normal diet on the day of the test. 3. Take your medications as you normally would. 4. DO NOT take calcium supplements (such as Tums) for 24 hours before the test. 5. On the day of the test, leave valuables (jewelry or credit cards) at home. 6. The test should be performed prior to oral, rectal or IV contrast studies, or at least 7 days after any of these studies. For the test, you may be asked to wear a hospital gown. You will lie on your back, on a padded table, in a comfortable position. Generally, you can resume your usual activities immediately. Brain Health Tips (copy and paste) https://www.alz.org/help-support/brain_health documented in this encounterOhiohealth O'Blen[facility]06-17-2024 History of Present illness Narrative* Catina Reddy APRN.JUAN - 10/06/2023 1:50 PM EDT CC: Patient presents with: Recheck: Order for bone density, and possible carotid US. C/o sharp pain right knee x2 months HPI Fannie Avalos is a 78 year old female who presents today for above. Patient requesting orders for BMD and carotid US. She also reports right knee pain x 2 months. Located: lateral knee. Described as: sharp Injury: No Aggravated by: kneeling Treatment: avoiding aggravating activities Swelling, redness or bruising: No Popping or clicking with movement: No Locking or feel like is giving-out: No Interfering with sleep:No Previous injury: No Previous surgery: No Review of Systems See HPI 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 CERVICAL SPONDYLOSIS 02/26/2005 Diarrhea Diverticulosis of colon 01/06/2009 Esophageal reflux Hemorrhage of rectum and anus 12/02/2017 HEMORRHOIDS NOS 11/30/2008 HYPERLIPIDEMIA NEC/NOS 03/18/2005 IBS (irritable bowel syndrome) 01/26/2013 Incontinence of feces 11/30/2008 Incontinence of feces 03/09/2021 Osteopenia Palpitations 01/13/2012 Perforation of large intestine (HCC) 12/03/2017 Spondylosis, 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 TIA (transient ischemic attack) 06/17/2017 [place], [place] PAST SURGICAL HISTORY Procedure Laterality Date CHOLECYSTECTOMY HX 03/2018 COLONOSCOPY FLX DX W/COLLJ SPEC WHEN PFRMD 10/20/2003 Colonoscopy COLONOSCOPY FLX DX W/COLLJ SPEC WHEN PFRMD 01/06/2009 Extensive diverticulosis/hemorrhoids COLONOSCOPY FLX DX W/COLLJ SPEC WHEN PFRMD 07/24/2012 [place] COLSC FLEXIBLE W/CONTROL BLEEDING ANY METHOD 12/02/2017 laser of cecal AVM DRAIN ABDOMINAL ABSCESS, PERCUTANEOUS 12/15/2017 perianastomotic abscess EGD 12/02/2017 ESOPHAGOGASTRODUODENOSCOPY TRANSORAL DIAGNOSTIC 07/03/2012 E[place] in [place] GAMMA KNIFE 1FX TX DELIVERY 02/12/2022 x 3 on 01/15/22; 01/29/22; 02/12/22 HEMORRHOIDECTOMY INT & XTRNL 2/> COLUMN/HI 10/26/2009 LAMINECTOMY W/RMVL ABNORMAL FACETS LUMBAR 07/08/2011 [facility] [place] LAPAROSCOPY COLECTOMY PARTIAL W/ANASTOMOSIS 02/02/2009 LAPAROSCOPY COLECTOMY PARTIAL W/ANASTOMOSIS Right 12/03/2017 LAPS MOBLJ SPLENIC FLXR PFRMD W/PRTL COLECTOMY 02/02/2009 PAST SURGICAL HISTORY OF 1964 ovarian cyst removed PAST SURGICAL HISTORY OF 2001 BREAST BIOPSY--BENIGN PAST SURGICAL HISTORY OF 03/28/2018 Gallbladder removed SIGMOIDOSCOPY FLX CONTROL BLEEDING 03/22/2009 Granulation tissue at anastomosis SIGMOIDOSCOPY FLX W/BIOPSY SINGLE/MULTIPLE 02/28/2011 TOTAL ABDOMINAL HYSTERECT W/WO RMVL TUBE OVARY 02/1990 Hysterectomy, TERI, BSO ALLERGIES Bactrim [Sulfamethoxazole-Trimethoprim], Clindamycin Hcl, Flagyl [Metronidazole Hcl], Gadolinium-Containing Contrast Media, Trimethoprim, and Levofloxacin MEDICATIONS cetirizine (ZYRTEC) 10 mg tablet Take 10 mg by mouth once daily. meclizine (ANTIVERT) 25 mg tab Take 1 tablet by mouth every 6 hours as needed (dizziness). naproxen (NAPROSYN) 500 mg tablet Take 1 tablet by mouth two times a day with meals. atorvastatin (LIPITOR) 40 mg tablet TAKE 1 TABLET EVERY DAY AT BEDTIME FOR CHOLESTEROL fluticasone (FLONASE) 50 mcg/actuation nasal spray Use 2 Sprays in each nostril once daily. Rinse mouth after use. carvedilol (COREG) 3.125 mg tablet Cholecalciferol, Vitamin D3, 25 mcg (1,000 unit) cap Take 1 capsule by mouth once daily. VITAMIN E 200 UNIT CAP Take 200 Units by mouth once daily. Perry-3 Fatty Acids (FISH OIL) ORAL Cap Take one(1) capsule daily. MULTIVITAMIN TAB Take one(1) tablet daily. CALCIUM + D 600 MG-200 UNIT TAB Take one(1) tablet daily. ASPIRIN 81 MG TAB Take 81 mg by mouth once daily. FAMILY HISTORY Problem Relation Age of Onset Breast Cancer Mother dec. age 88 Blood Disease Father PE, post MVA, dec. 53yo Breast Cancer Sister Myositis Sister Inclusion Body Myositis None Sister Alzheimer's Disease Sister other (multiple myeloma) Brother Social History Tobacco Use Smoking status: Never Smokeless tobacco: Never Vaping Use Vaping Use: Never used Substance Use Topics Alcohol use: No Drug use: No BP 128/78 Pulse 78 Resp 14 Wt 59.9 kg (132 lb) SpO2 98% BMI 23.68 kg/m Physical Exam Vitals reviewed. Constitutional: Appearance: Normal appearance. Musculoskeletal: Right knee: No swelling, deformity, bony tenderness or crepitus. Normal range of motion. Neurological: Mental Status: She is alert. Health maintenance reviewed with patient: Advance Directive Discussion due on 04/21/2023 Behavioral Health Screening Never done DTaP,Tdap,Td Vaccine(1 - Tdap) due on 03/20/2024 RSV Vaccine(1 - 1-dose 60+ series) due on 03/20/2024 Shingrix Vaccine(2 of 3) due on 03/20/2024 Covid-19 Vaccine(3 - season) due on 03/20/2024 Diabetes Screening due on 05/21/2026 Bone Density Screening Completed Influenza Vaccine Completed Pneumococcal Vaccine: 65+ Completed Colorectal Cancer Screening Discontinued DATA REVIEWED: most recent carotid US and BMD in 2020 ASSESSMENT/PLAN: 1. Right knee pain, unspecified chronicity - ICD9: 719.46, ICD10: M25.561 (primary diagnosis) Suspect osteoarthritis - XR KNEE GENERAL 4V AP BOTH/PA BOTH/LAT/MERC RIGHT - start Voltaren gel, use four times a day - consider PT 2. Bilateral carotid artery stenosis - ICD9: 433.10, 433.30, ICD10: I65.23 Needs repeat per last note in 2020 - US CAROTID ARTERIES [facility] 3. Encounter for screening for osteoporosis - ICD9: V82.81, ICD10: Z13.820 - DXA-AXIAL SKELETON 4. Asymptomatic postmenopausal status - ICD9: V49.81, ICD10: Z78.0 - DXA-AXIAL SKELETON Prescription instructions reviewed with patient as applicable. Potential red flag symptoms discussed with the patient. Reviewed appropriate action plan to take if red flag symptoms occur. Patient agreeable to treatment plan. Catina Reddy APRN.FINANCE SPECIALIST documented in this encounterOhiohealth O'[facility]06-11-[facility] History of Present illness Narrative* Bernabe Cox MD - 09/30/2023 10:00 AM EDT NEUROSURGERY FOLLOW UP OFFICE NOTE Dr. Bernabe Cox MD, FACS Date of visit: September 30, 2023 Patient Name: Ms.Marjorie Arielle Avalos Date of : 1945 Current Age: [age] year old Sex: female MRN/E# [id number] Last Office Visit: September 03, 2022 CHIEF COMPLAINT: Patient presents with: Established Patient SUBJECTIVE: The patient presents as a follow-up with imaging (MRI B) for evaluation. This is an 78-year-old female with a PMHx of intracranial meningioma diagnosed in September 2017 after experiencing episodes of visual changes. Given the symptoms MRI was obtained and demonstrated a left parasagittal meningioma forwhich no surgical intervention was indicated. She followed with Dr. Lindsey until 2021 imaging demonstrated an increase in size. She was referred for possible gamma knife treatment. She was seen for consult in August 2021 and reported intermittent episodes of right sided head pain but denied any significant headache. MRI was reviewed and compared to prior imaging. This showed a 6-7mm increase from 2017 to 2021. Treatment options were discussed including open craniotomy with resection or gamma knife. Her case was discussed with the tumor board and radiation oncology who proposed that gamma knife could be provided in divided fractions which she agreed to. This was completed asnoted below in 3 sessions. Since then she has been seen routinely for evaluation with imaging and has overall done well. She was last seen in the office in August 2022 and reported that she was overall doing well. Neurologically she was intact on exam without focal deficit. MRI was reviewed and compared to previous scans and this showed no change in size or configuration of the medial interhemispheric left parietal meningioma. Recommendation was to follow-up in 1 year with repeat MRI prompting her visit today. Since last visit she states she is overall doing well. She denies any significant issues with the exceptionof mild numbness to the right hand especially when sleeping. She denies any weakness however. She presents for image review, evaluation and plan of care. SYMPTOMS: Mild right hand tingling especially at night PREVIOUS CONSERVATIVE TREATMENTS: None SURGICAL RISK: Smoker: Never Diabetic: No Anticoagulants / Antiplatelets: No Occupation: N/A PREVIOUS SURGERY: SURGERY #1: Gamma Knife Stereotactic Radiosurgery for a meningioma on 01/15/[address] Cox. 1. Left parietal falx 1 of 3 SURGERY #2: Gamma Knife Stereotactic Radiosurgery for a meningioma on 01/29/[address] Cox. 1. Left parietal falx 2 of 3 SURGERY#3: Gamma Knife Stereotactic Radiosurgery for a meningioma on 02/12/[address] Cox. 1. Left parietal falx 3 of 3 PAIN EVALUATION No data found in the last 1 encounters. 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 CERVICAL SPONDYLOSIS 02/26/2005 Diarrhea Diverticulosis of colon 01/06/2009 Esophageal reflux Hemorrhage of rectum and anus 12/02/2017 HEMORRHOIDS NOS 11/30/2008 HYPERLIPIDEMIA NEC/NOS 03/18/2005 IBS (irritable bowel syndrome) 01/26/2013 Incontinence of feces 11/30/2008 Incontinence of feces 03/09/2021 Osteopenia Palpitations 01/13/2012 Perforation of large intestine (HCC) 12/03/2017 Spondylosis, 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 TIA (transient ischemic attack) 06/17/2017 [place] PAST SURGICAL HISTORY Procedure Laterality Date CHOLECYSTECTOMY HX 03/2018 COLONOSCOPY FLX DX W/COLLJ SPEC WHEN PFRMD 10/20/2003 Colonoscopy COLONOSCOPY FLX DX W/COLLJ SPEC WHEN PFRMD 01/06/2009 Extensive diverticulosis/hemorrhoids COLONOSCOPY FLX DX W/COLLJ SPEC WHEN PFRMD 07/24/2012 [place] COLSC FLEXIBLE W/CONTROL BLEEDING ANY METHOD 12/02/2017 laser of cecal AVM DRAIN ABDOMINAL ABSCESS, PERCUTANEOUS 12/15/2017 perianastomotic abscess EGD 12/02/2017 ESOPHAGOGASTRODUODENOSCOPY TRANSORAL DIAGNOSTIC 07/03/2012 [place] GAMMA KNIFE 1FX TX DELIVERY 02/12/2022 x 3 on 01/15/22; 01/29/22; 02/12/22 HEMORRHOIDECTOMY INT & XTRNL 2/> COLUMN/HI 10/26/2009 LAMINECTOMY W/RMVL ABNORMAL FACETS LUMBAR 07/08/2011 [place] LAPAROSCOPY COLECTOMY PARTIAL W/ANASTOMOSIS 02/02/2009 LAPAROSCOPY COLECTOMY PARTIAL W/ANASTOMOSIS Right 12/03/2017 LAPS MOBLJ SPLENIC FLXR PFRMD W/PRTL COLECTOMY 02/02/2009 PAST SURGICAL HISTORY OF 1964 ovarian cyst removed PAST SURGICAL HISTORY OF 2001 BREAST BIOPSY--BENIGN PAST SURGICAL HISTORY OF 03/28/2018 Gallbladder removed SIGMOIDOSCOPY FLX CONTROL BLEEDING 03/22/2009 Granulation tissue at anastomosis SIGMOIDOSCOPY FLX W/BIOPSY SINGLE/MULTIPLE 02/28/2011 TOTAL ABDOMINAL HYSTERECT W/WO RMVL TUBE OVARY 02/1990 Hysterectomy, TERI, BSO FAMILY HISTORY Problem Relation Age of Onset Breast Cancer Mother dec. age 88 Blood Disease Father PE, post MVA, dec. 53yo Breast Cancer Sister Myositis Sister Inclusion Body Myositis None Sister Alzheimer's Disease Sister other (multiple myeloma) Brother ALLERGIES Allergen Reactions Bactrim [Sulfametho* GI Upset nausea Clindamycin Hcl GI Upset Flagyl [Metronidazo* GI Upset Gadolinium-Containi* Hives Gadolinium/Gadavist Trimethoprim Vomiting Levofloxacin GI Upset Current Outpatient Medications Medication Sig Dispense Refill cetirizine (ZYRTEC) 10 mg tablet Take 10 mg by mouth once daily. meclizine (ANTIVERT) 25 mg tab Take 1 tablet by mouth every 6 hours as needed (dizziness). 15 tablet 0 naproxen (NAPROSYN) 500 mg tablet Take 1 tablet by mouth two times a day with meals. 30 tablet 0 atorvastatin (LIPITOR) 40 mg tablet TAKE 1 TABLET EVERY DAY AT BEDTIME FOR CHOLESTEROL 90 tablet 3 fluticasone (FLONASE) 50 mcg/actuation nasal spray Use 2 Sprays in each nostril once daily. Rinse mouth after use. 1 Each 0 carvedilol (COREG) 3.125 mg tablet Cholecalciferol, Vitamin D3, 25 mcg (1,000 unit) cap Take 1 capsule by mouth once daily. VITAMIN E 200 UNIT CAP Take 200 Units by mouth once daily. 0 Perry-3 Fatty Acids (FISH OIL) ORAL Cap Take one(1) capsule daily. 0 MULTIVITAMIN TAB Take one(1) tablet daily. 0 ASPIRIN 81 MG TAB Take 81 mg by mouth once daily. 0 CALCIUM + D 600 MG-200 UNIT TAB Take one(1) tablet daily. 0 No current facility-administered medications for this visit. REVIEW OF SYSTEMS: Review of Systems Constitutional: Negative for chills, diaphoresis (Negative for night sweats.) and fever. HENT: Negative for ear discharge and rhinorrhea. Eyes: Negative for discharge. Respiratory: Negative for cough, shortness of breath and wheezing. Cardiovascular: Negative for chest pain, palpitations and leg swelling. Gastrointestinal: Negative for constipation, diarrhea, nausea and vomiting. Endocrine: Negative for cold intolerance and heat intolerance. Genitourinary: Negative for frequency. Negative for urinary incontinence and urinary retention. Musculoskeletal: Negative for back pain, joint swelling, myalgias and neck pain. Skin: Negative for rash (Negative for hives and skin lesions.). Allergic/Immunologic: Negative for environmental allergies and food allergies. Negative for contact allergy, seasonal allergies. Neurological: Negative for dizziness, seizures, syncope, weakness, light- headedness, numbness (Negative for numbness in extremities.) and headaches. Hematological: Does not bruise/bleed easily. Psychiatric/Behavioral: The patient is not nervous/anxious. Negative for depression. OBJECTIVE: BP 127/72 Pulse 64 Resp 16 Ht 5' 2.6 (1.59m) Wt 134 lb 7.7 oz (61.0kg) SpO2 97% BMI 24.13 kg/(m^2). PHYSICAL EXAM: Mental State : Alert, memory function unremarkable. Attention span and concentration normal for patient's age. Speech normal, no receptive or expressive speech deficit. Recent and remote memory normal. Orientation : Oriented to person, place and time. Higher Cortical Function : Intact speech and language. Spontaneous speech and comprehension normal.Fund of knowledge intact for pt level of education. Cranial Nerves : II: No visual field cut no blurring, Makes and sustains eye contact III, IV, : Normal, no double vision or drooping. Pupils equal and reactive to light. Extraocularmuscles intact. No nystagmus V: Normal sensation on the face, normal jaw movements VII: No paresis on either side VIII: No gross hearing deficit IX: Good and equal shoulder shrugs XII: Tongue midline, no fasciculations Sensory: SILT. Normal Sensation in upper and lower extremities and trunk to touch and noxious stimuli. Motor: Normal muscle tone and bulk. No tremor or uncontrollable movements. No spasticity or tremor. Strength: Upper Extremities : R L Deltoid 5/5 5/5 Biceps 5/5 5/5 Triceps 5/5 5/5 Wrist Ext 5/5 5/5 Wrist Flx 5/5 5/5 Hand Int 5/5 5/5 Lower Extremities : Hip Flexors 5/5 5/5 Hip Extensors 5/5 5/5 Hip Abductors 5/5 5/5 Straight leg Neg Neg Ankle dorsiflex 5/5 5/5 Ankle Plantar 5/5 5/5 Heel Walking intact intact Toe Walking intact intact Reflexes : Biceps 2+ 2+ Triceps 2+ 2+ Wrist 2+ 2+ Patellar 2+ 2+ Achilles 2+ 2+ Weller's Neg Neg Tinel's Pos Neg Phalen's Neg Neg Cerebellar Function : Normal finger to nose. Normal rapid alternating movements. No ataxia. Negative Romberg. Gait and Station: Normal gait. No assistive device usage. Pulmonary: Lungs without cough, audible wheeze. Respirations unlabored. Cardiac: Regular rate and rhythm. No murmer, gallop or rub. IMAGING: MRI brain WO/W IVCON performed on 09/24/2023 demonstrates: IMPRESSION: No significant interval change. Stable left posterior parafalcine meningioma. ASSESSMENT/PLAN: 1. Benign meningioma of brain (HCC) - ICD9: 225.2, ICD10: D32.0 Patient has a left parasagittal falx meningioma treated in 2021 x 3 sessions of gamma knife. Since that time patient has been followed with MRI scans that showed no evidence of change in size or configuration. Patient is asymptomatic she has no headache dizziness seizures weakness numbness. Her neurological examination is normal. She has mild right carpal tunnel symptoms for which I told her to use a night splint which would be therapeutic and diagnostic. If this gets worse she will let me know. We will see her in 1 year from now with an MRI scan as we continue to monitor the treated meningioma. Bernabe Cox MD FOLLOW UP: Return in about 1 year (around 09/29/2024) for review of MRI. Please Note: This note has been partially generated using [employer], a speech recognition software program, and may contain errors including punctuation, grammar, spelling, gender, and inappropriate words or phrases that pertain to the system. documented in this encounterOhiohealth O'[facility]06-05-2024 History of Present illness Narrative* Radha Mcgowan RT(R) - 09/24/2023 8:15 AM EDT Radiology Service Progress Note DATE OF SERVICE: September 24, 2023 TIME: 9:01 AM PATIENT IDENTITY VERIFICATION COMPLETED USING TWO (2) STANDARD IDENTIFIERS: Name and Date of confirmed by patient verbally. FALL SCREENING: Has the patient had 2 falls in the last year or 1 fall with injury or currently using an Ambulatory Assistive Device (Walker, Cane, Wheelchair, Crutches, etc.)? No PATIENT GENDER DATA: Female. status: : No status: NO. PATIENT RELEVANT IMPLANT DATA REVIEWED: Yes PATIENT PRESENTS WITH AN IMPLANTABLE OR ATTACHED VAT TENDER: No ALLERGIES: Reviewed and unchanged CONTRAST ALLERGY: YES patient was pre-medicated prior to MRI . EXAM: MRI - CONTRAST TYPE: GROUP II PERIPHERAL IV DATA: Ambulatory: A peripheral IV was started in the Right antecubital site with a Angio cath: 22 gauge. RADIOLOGY DEPARTMENT: MR; Exam(s) Completed: Head: Routine Brain SIGNATURE: Radha Mcgowan RDMS, CHRISTOPHER Pina (rainier imaging) PATIENT NAME: Fannie Avalos DATE: September 24, 2023 TIME: 9:01 AM documented in this encounterOhiohealth O'[facility]06-03-2024 Telephone encounter Note * Telephone Encounter - Priya Madsen - 09/22/2023 3:[address] new order for MRI Brain WO/W IVCON. Patient is coming on Friday. Order was discontinued. Thank you [facility]06-03-[facility]24 Miscellaneous Notes* Telephone Encounter - Priya Madsen - 09/22/2023 3:[address] new order for MRI Brain WO/W IVCON. Patient is coming on Friday. Order was discontinued. Thank you documented in this encounterOhiohealth O'[facility]len[facility]05-07-2024 Telephone encounter Note * Telephone Encounter - Katia Boykin APRN.CNP - 08/26/2023 8:13 AM EDT Okay for Valium prior to MRI for claustrophobia. OARRS reviewed. All prescriptions have been APPROPRIATELY filled. No suspicious activity was identified. Prescription approved, signed and sent to patients pharmacy on file. FATEMEH Schafer Neurosurgery Nurse Practitioner [facility] 8:14 AM 08/26/2023 [facility]05-07-2024 Miscellaneous Notes* Telephone Encounter - Katia Boykin APRN.CNP - 08/26/2023 8:13 AM EDT Okay for Valium prior to MRI for claustrophobia. OARRS reviewed. All prescriptions have been APPROPRIATELY filled. No suspicious activity was identified. Prescription approved, signed and sent to patients pharmacy on file. FATEMEH Schafer Neurosurgery Nurse Practitioner [facility] 8:14 AM 08/26/2023 documented in this encounterOhiohealth O'Bleness Hospital04-30-2024 Telephone encounter Note * Telephone Encounter - Sivakumar Traylor - 08/19/2023 10:11 AM EDT I returned patient vm wanting to schedule yearly follow up, I left a vm stating patient already hasan appt and left appt day time and location, to call office with any other questions [facility]04-30-2024 Miscellaneous Notes* Telephone Encounter - Sivakumar Traylor - 08/19/2023 10:11 AM EDT I returned patient vm wanting to schedule yearly follow up, I left a vm stating patient already hasan appt and left appt day time and location, to call office with any other questions documented in this encounterOhiohealth O'Bleness Hospital01-02-2024 Procedure [facility]01-02-2024 Procedure [facility]12-12-2023 History and physical note Author Baron Reid [facility] April 01, 2023 6:16am Note Date/Time April 01, 2023 6:17am [facility] Medical Records Department [address] [place] [address] History & Physical Exam 04/01/23614 MR#: [id number] Acct: [id number] Name: FANNIE AVALOS Rep #:[id number] : 1945 77 From: Baron Reid MD PCP: Dr. Gavin Tran MD Status:R [facility] Location: [place] [address] History and Physical Date of Admission: 04/01/23 Visit Reasons: POSITIVE COLOGUARD Chief Complaint: positive cologuard Cnc Service Technician Required: No Is patient in pain?: Yes (back ) Allergies clindamycin Allergy (Intermediate, Verified 02/26/23 14:09) nausea/vomitingsulfamethoxazole [From Bactrim] Allergy (Intermediate, Verified 02/26/23 14:09) nausea/vomitingtrimethoprim [From Bactrim] Allergy (Intermediate, Verified 02/26/23 14:09) nausea/vomitingGadolinium-MRI Contrast Medium Allergy (Verified 02/26/23 14:09) Hiveslevofloxacin [From Levaquin] Adverse Reaction (Verified 02/26/23 14:09) Nauseametronidazole [From Flagyl] Adverse Reaction (Verified 02/26/23 14:09) Nausea Medications cholecalciferol (vitamin D3) 25 mcg (1,000 unit) tablet 1,000 unit PO DAILY 03/25/20 [History Confirmed 02/26/23] aspirin 81 mg tablet,delayed release 81 mg PO DAILY 01/31/22 [History Confirmed 02/26/23] atorvastatin 40 mg tablet 40 mg PO QHS 01/31/22 [History Confirmed 02/26/23] calcium carbonate 600 mg-vitamin D3 5 mcg (200 unit) capsule (Calcium 600 + D(3)) 1 cap PO DAILY 01/31/22 [History Confirmed 10/28/22] ibuprofen 600 mg tablet 600 mg PO Q8H PRN Pain 01/31/22 [History Confirmed 02/26/23] multivitamin 1 tab PO DAILY supplement 01/31/22 [History Confirmed 02/26/23] vitamin E (dl, acetate) 90 mg (200 unit) capsule 90 mg PO DAILY 01/31/22 [History Confirmed 02/26/23] omega-3 fatty acids-fish oil 300 mg-1,000 mg capsule 1 cap PO SA 02/11/22 [History Confirmed 02/26/23] omeprazole 20 mg capsule,delayed release 20 mg PO .QOD 10/02/22 [History Confirmed 02/26/23] wheat dextrin 3 gram/3.5 gram oral powder packet (Benefiber Clear Sugar Free(dextrin)) 3 g PO DAILY 10/02/22 [History Confirmed 02/26/23] carvedilol 3.125 mg tablet See Rx Instructions .Route .COMPLEX updated RX with new quantity #180 tabs 01/20/23 [Rx Confirmed 02/26/23] loratadine 10 mg tablet (Claritin) 10 mg PO DAILY 02/26/23 [History Confirmed 02/26/23] naproxen 500 mg tablet mg PO 02/26/23 [History Confirmed 02/26/23] [facility] Medical History (Updated 02/19/23 @ 14:01 by Arely KABA, PA-C) Acute left-sided thoracic back pain Allergic rhinitis Anorectal pain Aortic regurgitation Benign meningioma of brain Benign neoplasm of colon Benign neoplasm of meninges Blood in stool Cardiology follow-up encounter Carotid artery stenosis Carpal tunnel syndrome Cecum perforation Change in bowel habit Constipation Diarrhea Epigastric abdominal pain Esophageal dysphagia Fecal occult blood test positive Fecal occult blood test positive Hemorrhoids High cholesterol History of echocardiogram History of IBS History of stress test Hyperlipidemia IBS (irritable bowel syndrome) Incontinence of feces Irregular heart rhythm Left Achilles tendinitis Melanotic stools Non-smoker Nonrheumatic aortic (valve) insufficiency Osteopenia Palpitations Personal history of colonic polyps Recurrent incisional hernia with incarceration RLQ abdominal pain Status post gamma knife treatment Wears glasses Surgical History History of colectomy History of ERCP (~03/2018) History of hemorrhoidectomy History of hysterectomy History of removal of ovarian cyst History of spinal fusion Hx of cholecystectomy (~03/2018) Family History Mother Breast cancer Thyroid disorderAunt Breast cancer Social History Smoking Status: Never smoker alcohol intake: never substance use type: does not use caffeine: Yes (occasionally) Type: carbonated beverages HPI HPI Surgical H&P: Yes HPI: Patient is a 77 y/o F I am following for melanotic stools. Patient notes approximately 6 weeks ago she noted her stools were darker in color. Patient Patient states she has been having normal bowel movements, whereas before she was constipated. Patient denies any bright red rectal bleeding. She denies true abdominal pain or discomfort. She notes intermittent loud abdominal gurgling. She can not attribute that to any specific food or activity she is doing. Patient notes she has been under some stress. Her and her are planning to travel to [place] for the winter soon. She is currently being treated with physical therapy for back pain. She is also taking naproxen for 2 days for the back pain. Patient also developed vertigo while at therapy her last session, so she is dealing with those effects. Patient is also a worrier on top of all the issues she is dealing with now. Patient had contacted our office approximately 2weeks ago noting she was having darker stools. Patient notes she stopped her PPIat least 6 months ago as she was told it was not good to continue. Our office ordered occult blood test which returned positive. I had contacted the patient with testing results and recommended she restart her omeprazole 40 mg daily. An office appointment was made for further evaluation. Patient also notes she has been taking Pepto-Bismol for the abdominal gurgling and sometimes she has urgency with bowel movements. She notes taking Pepto-Bismol when her and her go out to dinner with friends, so she does not have any accidents. Patient's most recent EGD and colonoscopy was on 03/29/[address] Reid. Scopes were performed during that time due to melanotic stools. EGD findings were reflux esophagitis, small hiatal hernia, erythematous duodenum, acute chronic gastritis. No active bleeding noted. Suspect gastritis as the source of melena and Hemoccult positive stool. Colonoscopy findings were non-bleeding hemorrhoids, patent functional end-to-end ileo colonic anastomosis, scattered diverticula were found throughout the entire colon. No specimens were collected. Pathology for the EGD demonstrated duodenal mucosa with Shan gland hyperplasia, mild gastritis, fundic gland polyp, and GE mucosa with chronic inflammation. Patient has a history of a hand-assisted laparoscopic right colectomy by Dr. Reid on 12/03/17 following a cecal perforation from a colonoscopy, where multiple AVMs were treated. She also notes a previous sigmoid colectomy following what sounds like a volvulus. ROS General General: No weight change, appetite, fatigue, colon cancer, breast cancer or weakness HEENT HEENT: No difficulty swallowing, eye injury, eye surgery, swollen glands or hoarseness Endo Endocrine: No thyroid disease, diabetes mellitus, thyroid cancer, Hair loss, heat intolerance or cold intolerance Skin Skin: No rash or changing moles Breast Breast: No left breast lump, right breast lump, nipple discharge, breast pain, abnormal mammogram, abnormal US or breast enlargement Musc Musculoskeletal: Yes back problems; No arthritis, rheumatoid arthritis, gout or joint pain Cardio Cardiovascular: No murmur, pacemaker, heart disease, atrial fibrillation, high blood pressure, heart attack, heart stent, palpitations, shortness of breat withexertion or chest pain Psych Psychiatric: No depression, anxiety or hearing voices Resp Respiratory: No shortness of breath, No sleep apnea, Yes cough, No COPD, No asthma, No emphysema and No wheezing Gastro Gastrointestinal: Yes abdominal pain, No nausea or vomiting, No diarrhea, No constipation, Yes blood in stool, No acid reflux, Yes hemorrhoids, No ulcers, Nogallbladder problem and Yes black,tarry stools Additional Details: Black, Tarry stools pt states Sometimes Jose Hematologic: No blood thinners, No blood disorders, No bleeding, No anemia and No blood clots Neuro Neurologic: No system reviewed and no additional complaints, except as documented, No as per HPI, No abnormal gait, No abnormal hearing, No abnormal movements, No abnormal speech, No behavioral changes, No burning sensations, No confusion, No convulsions, No disequilibrium, No dizziness, No localized weakness, No frequent falls, No headache(s), No lack of coordination, No loss ofvision, No memory loss, Yes numbness, No other visual disturbances, No radicularpain, No restless legs, No sensory deficit, No syncope, Yes tingling, No tremor(s), No weakness and No other Exam Const General: cooperative, healthy appearing, comfortable and no acute distress [facility] Head: normal to inspection Eyes General: appearance normal, both eyes and all related structures Neck Neck: normal visual inspection Neck mass: No Resp Effort & Inspection: normal respiratory effort Auscultation: clear to auscultation bilaterally Cardio Rate: regular rate Rhythm: regular rhythm GI Inspection: normal to inspection Palpation: soft Auscultation: normal bowel sounds Musc Cervical Spine: normal cervical lordosis Skin General: no rashes or lesions noted Neuro General: no focal motor deficits and CN's II-XI intact bilaterally Extrem General: normal to inspection Psych Appearance: grossly normal Affect: normal affect Assessment and Plan Assessment and Plan (1) Melanotic stools: Status: Acute Plan: I have discussed this patient with Dr. Reid. Dr. Reid will plan to perform an upper scope with possible biopsies. Procedure details, risks and benefits have been explained. I am recommending continuation of omeprazole 40 mg daily. Patient will hold her aspirin and fish oil for the procedure 5 days prior to theprocedure. Patient has had the opportunity to ask and have questions answered. Patient verbally understands and agrees with the plan I have examined the patient and the H&P has been reviewed. There are no clinicalchanges since date of exam. Baron Reid M.D., F.A.C.S. 04/01/23 0616 <Electronically signed by Baron Reid MD> Cosigner Signature (if applicable): CC: Dr. Baron Reid MD; Dr. Gavin Tran MD~ Signed [facility] Work Phone: 1(284) 531-585312-12-2023 Procedure [facility] 04-01-2023 Procedure [facility]12-05-2023 Miscellaneous Notes* Letter - Coordinator, [facility] - 03/25/2023 12:23 PM EST March 26, 2023 PID: [id number] Fannie Avalos [id number] [phone] Dear Ms. Avalos, We are pleased to inform you that the results of your recent breast imaging exam on 03/24/2023 are normal. Early detection of cancer is very important. We also understand recommendations regarding breast cancer screening are controversial. Please discuss with your primary care provider which strategy is best for you and whether a mammogram is right for you. Your imaging studies and report will be kept on file at [facility] as part of your permanent medical record and are available for your continuing care. Thank you for allowing us to help in meeting your health care needs. Sincerely, Dr. Box Interpreting Radiologist [facility] (Normal over 40) documented in this encounterOhiohealth O'[facility]len[facility]12-04-2023 History of Present illness Narrative* Malia Viera Mammo Tech - 03/24/2023 12:50 PM EST Radiology Service Progress Note PATIENT NAME: Fannie Avalos DATE OF SERVICE: March 24, 2023 TIME: 12:57 PM PATIENT IDENTITY VERIFICATION COMPLETED USING TWO (2) IDENTIFIERS: Name and Date of confirmedby patient verbally. FALL SCREENING: Has the patient had 2 falls in the last year or 1 fall with injury or currently using an Ambulatory Assistive Device (Walker, Cane, Wheelchair, Crutches, etc.)? No PATIENT GENDER DATA: Female. status: : No status: NO. PATIENT RELEVANT IMPLANT DATA REVIEWED: Not Applicable RADIOLOGY DEPARTMENT: Mammography PERIPHERAL IV DATA: Not applicable SIGNED BY: Linda French March 24, 2023 12:57 PM documented in this encounterOhiohealth O[facility]11-30-2023 Instructions* Patient Instructions* Catina Manuel APRN.CNP - 03/20/2023 12:16 PM EST Screening schedule The following prevention plan is recommended: RSV Vaccine(1 - 1-dose 60+ series) Never done DTaP,Tdap,Td Vaccine(1 - Tdap) due on 09/19/2010 Shingrix Vaccine(2 of 3) due on 01/11/2011 Covid-19 Vaccine(3 - 2022- season) due on 12/20/2022 WHAT YOU CAN DO TO PREVENT FALLS Many falls can be prevented. By making some changes, you can lower your chances of falling. Four things YOU can do to prevent falls for you* and your caregiver 1. Begin a regular exercise program Exercise is one of the most important ways to lower your chances of falling. It makes you stronger and helps you feel better. Exercises that improve balance and coordination (like Jason Chi) are the most helpful. Lack of exercise leads to weakness and increases your chances of falling. Ask your doctor or health care provider about the best type of exercise program for you. 2. Have your health care provider review your medicines Have your doctor or pharmacist review all the medicines you take, even [id number]-iullnwn medicines. As you get older, the way medicines work in your body can change. Some medicines, or combinations of medicines, can make you sleepy or dizzy andcan cause you to fall. 3. Have your vision checked Have your eyes checked by an eye doctor at least once a year. You may be wearing the wrong glasses or have a condition like glaucoma or cataracts that limits your vision. Poor vision can increase your chances of falling. 4. Make your home safer About half of all falls happen at home. To make your home safer: Remove things you can trip over (like papers, books, clothes, and shoes) from stairs and places where you walk. Remove small throw rugs or use double-sided tape to keep the rugs from slipping. Keep items you use often in cabinets you can reach easily without using a step stool. Have grab bars put in next to your toilet and in the tub or shower. Use non-slip mats in the bathtub and on shower floors. Improve the lighting in your home. As you get older, you need brighter lights to see well. Hang light-weight curtains or shades to reduce glare. Have handrails and lights put in on all staircases. Wear shoes both inside and outside the house. Avoid going barefoot or wearing slippers. For more information, contact: [facility] Disease Control and Prevention www.cdc.gov/injury * This information may not apply if you have certain medical conditions. documented in this encounterOhiohealth O'[facility]11-30-2023 History of Present illness Narrative* Catina Manuel APRN.CNP - 03/20/2023 12:15 PM EST Fannie Avalos is a 77 year old female here for a Medicare wellness visit. Medicare Health Risk Assessment In general, health is: Very good Concerns with tiredness, difficulties with sexual function, balance, teeth/dentures: Not at all Elk anxious, stressed, angry, irritable, lonely, isolated, or had thoughts of hurting themself: Not at all Has little interest or pleasure in doing things: Not at all Bothered by feeling down, depressed, or hopeless: Not at all Needs help with grocery shopping, cooking, housework, bathing, grooming, dressing, eating, sitting or standing, walking, using the toilet, handling finances, taking medications, using the telephone, or driving: No Following safety precautions in the home environment and vehicle: removed throw rugs from floors, installed grab bars in the bathroom, handrails in stairwells, having adequate lighting, wearing seatbelt at all times?: Yes Smokes cigarettes, vapes, or chew tobacco: No Eats healthy foods including fruits, vegetables, whole grains, and fiber-rich foods: Nearly every day Number of days per week engages in exercise: 3 days, stays active Average alcohol consumption: Never Current Providers Patient Care Team: Gavin Tran MD as PCP - General (Internal Medicine) Bernabe Cox MD as Referring (Neurosurgery) Specialists: I have reviewed specialist-related care of the patient in the medical record. Outside specialists seen: Dr. Crump, ophtalmology. Dr. Gomez, [facility]. [place] physicians as needed. Dr. Reid-general surgeon Medical/Family history review Reviewed and updated problem list, medical/surgical/family/social history, medications, and allergies. Opioid use review Opioid Medications (last 90 days) Some values may be hidden. Unless noted otherwise, only the newest values recorded on each date aredisplayed. Opioid Medications No data to display. Depression screening Depression Screening PHQ-2 Score PHQ-9 Score Score (Questions 1 & 2) Total Score (All Questions) 11/12/2022 0 - - - Depression screening tool completed and reviewed. Based on score and interview, patient is not at risk for depression. Screening tool discussed with patient, and I recommended no further interventionat this time. Cognitive screening Mini Cog Score: 5 Cognitive screening reviewed and recommended referral for further evaluation (score 0-2) Functional Observation Was the patient's timed Up & Go test unsteady or ? 12 seconds? No Advance Care Planning Patient did not wish or was not able to name a surrogate decision maker or provide an advance care plan Measurements BP 124/76 Pulse 73 Resp 16 Ht 5' 2.598 (1.59m) Wt 133 lb (60.3kg) SpO2 97% BMI 23.86 kg/(m^2). Additional screenings: No results found. Assessment/Plan Medicare annual wellness visit, subsequent (Z00.00) - Counseled on healthy diet and regular exercise - Fall avoidance information provided - Personalized prevention plan provided Catina Manuel APRN.CNP documented in this encounterOhiohealth O'[facility]len[facility]11-10-2023 Miscellaneous Notes* Addendum Note - Izzy Aranda APRN.CNP - 02/28/2023 11:30 AM ESTAddended by: IZZY ARANDA on: 02/28/2023 11:30 AM Modules accepted: Orders * Telephone Encounter - Izzy Aranda APRN.CNP - 02/28/2023 11:29 AM EST Vianney called to [facility] Patient made aware * Telephone Encounter - Laly Jones MA - 02/28/2023 11:[address] [facility] pharmacy calling in to notify that Molnupiravir is not available, spoke with provider and script will be resent to [facility] retail pharmacy and will notify patient of change. Laly Jones MA * Telephone Encounter - Kristan Cardenas LPN - 02/28/2023 10:15 AM EST Patient notified and verbalized understanding of instructions given.Kristan Cardenas LPN * Telephone Encounter - Izzy Aranda APRN.JUAN - 02/28/2023 10:07 AM EST Reviewed yesterdays note. Molnupiravar called in for patient. Please instruct her to schedule follow up with Dr. Patt CHING, CP, worsening sx to go to ED. * Telephone Encounter - Carmen Olvera RN - 02/28/2023 8:43 AM EST Pt calling in for COVID results-notified of positive COVID and negative flu and RSV. Pt would like to go ahead and get the Paxlovid. Uses [facility]. Reiterated Jennifer Del Rosario's recommendations for symptomatic tx with OTC meds, fluids, rest and to come back to [facility] or the ER if symptoms persist or worsen. Went over quarantine instructions with pt. Verbalizes understanding and is cancelling the appt she deal d for today. No need to call pt back unless there is anything more to tell her or if medication is not called in. documented in this encounterOhiohealth O'[facility]11-09-2023 Miscellaneous Notes* Addendum Note - Dayan Del Rosario PA-C - 02/27/2023 12:37 PM ESTAddended by: DAYAN DEL ROSARIO on: 02/27/2023 12:37 PM Modules accepted: Orders documented in this encounterOhiohealth O'[facility]11-09-2023 History of Present illness Narrative* Dayan Del Rosario PA-C - 02/27/2023 10:17 AM EST This note was created using Edúkameriter. Saul Avalos is a 77 year old female. HPI Patient presents with a chief complaint of nasal congestion, cough, sneezing over the past 3 days. She states she has had some vertigo symptoms the past 4 days as well off and on. No headache. No weakness numbness or tingling. She has had vertigo previously and this is very similar. When she goes to lay down or turn her head she gets room spinning dizziness that lasts for a few seconds. She actually sees her physical therapist tomorrow to have an Roxanne maneuver done. No home COVID test done. Nochest pain or shortness of breath. Review of Systems Constitutional: Positive for fatigue. Negative for fever. HENT: Positive for congestion, postnasal drip and rhinorrhea. Negative for ear pain and sore throat. Respiratory: Positive for cough. Negative for shortness of breath. Cardiovascular: Negative. Gastrointestinal: Negative. Genitourinary: Negative. Musculoskeletal: Negative. Neurological: Positive for dizziness. Negative for facial asymmetry and headaches. All other systems reviewed and are negative. 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 CERVICAL SPONDYLOSIS 02/26/2005 Diarrhea Diverticulosis of colon 01/06/2009 Esophageal reflux Hemorrhage of rectum and anus 12/02/2017 HEMORRHOIDS NOS 11/30/2008 HYPERLIPIDEMIA NEC/NOS 03/18/2005 IBS (irritable bowel syndrome) 01/26/2013 Incontinence of feces 11/30/2008 Incontinence of feces 03/09/2021 Osteopenia Palpitations 01/13/2012 Perforation of large intestine (HCC) 12/03/2017 Spondylosis, 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 naproxen (NAPROSYN) 500 mg tablet Take 1 tablet by mouth two times a day with meals. 30 tablet 0 acetaminophen (TYLENOL) 325 mg tablet Take 1-2 tablets by mouth every 4 hours as needed for pain for up to 7 days. 30 tablet 0 atorvastatin (LIPITOR) 40 mg tablet TAKE 1 TABLET EVERY DAY AT BEDTIME FOR CHOLESTEROL 90 tablet 3 fluticasone (FLONASE) 50 mcg/actuation nasal spray Use 2 Sprays in each nostril once daily. Rinse mouth after use. 1 Each 0 carvedilol (COREG) 3.125 mg tablet iv contrast (will be provided with radiology test) MRI Brain Inject, intravenously, once for 1 dose.No IV access, insert saline lock prior to beginning of sedation, infusion, injection of imaging exam.Discontinue saline lock post exam. If Pt. has a central line or IVAD, may access for administration according to line specific nursing protocol.Once exam is complete flush line and de-access according to line specific nursing protocol in the MR contrast administration guidelines link 1 Each 0 omeprazole (PRILOSEC) 20 mg capsule Take 20 mg by mouth once daily. Cholecalciferol, Vitamin D3, 25 mcg (1,000 unit) cap Take 1 capsule by mouth once daily. wheat dextrin (BENEFIBER CLEAR SF, DEXTRIN, ORAL) Take 1 teaspoonful by mouth three times daily. VITAMIN E 200 UNIT CAP Take 200 Units by mouth once daily. 0 Perry-3 Fatty Acids (FISH OIL) ORAL Cap Take one(1) capsule daily. 0 MULTIVITAMIN TAB Take one(1) tablet daily. 0 ASPIRIN 81 MG TAB Take 81 mg by mouth once daily. 0 meclizine (ANTIVERT) 25 mg tab Take 1 tablet by mouth every 6 hours as needed (dizziness). 15 tablet 0 CALCIUM + D 600 MG-200 UNIT TAB Take one(1) tablet daily. 0 No current facility-administered medications for this visit. PAST SURGICAL HISTORY Procedure Laterality Date CHOLECYSTECTOMY HX 03/2018 COLONOSCOPY FLX DX W/COLLJ SPEC WHEN PFRMD 10/20/2003 Colonoscopy COLONOSCOPY FLX DX W/COLLJ SPEC WHEN PFRMD 01/06/2009 Extensive diverticulosis/hemorrhoids COLONOSCOPY FLX DX W/COLLJ SPEC WHEN PFRMD 07/24/2012 [place] COLSC FLEXIBLE W/CONTROL BLEEDING ANY METHOD 12/02/2017 laser of cecal AVM DRAIN ABDOMINAL ABSCESS, PERCUTANEOUS 12/15/2017 perianastomotic abscess EGD 12/02/2017 ESOPHAGOGASTRODUODENOSCOPY TRANSORAL DIAGNOSTIC 07/03/2012 [place] GAMMA KNIFE 1FX TX DELIVERY 02/12/2022 x 3 on 01/15/22; 01/29/22; 02/12/22 HEMORRHOIDECTOMY INT & XTRNL 2/> COLUMN/HI 10/26/2009 LAMINECTOMY W/RMVL ABNORMAL FACETS LUMBAR 07/08/2011 [place], [place] LAPAROSCOPY COLECTOMY PARTIAL W/ANASTOMOSIS 02/02/2009 LAPAROSCOPY COLECTOMY PARTIAL W/ANASTOMOSIS Right 12/03/2017 LAPS MOBLJ SPLENIC FLXR PFRMD W/PRTL COLECTOMY 02/02/2009 PAST SURGICAL HISTORY OF 1963 ovarian cyst removed PAST SURGICAL HISTORY OF 2001 BREAST BIOPSY--BENIGN PAST SURGICAL HISTORY OF 03/28/2018 Gallbladder removed SIGMOIDOSCOPY FLX CONTROL BLEEDING 03/22/2009 Granulation tissue at anastomosis SIGMOIDOSCOPY FLX W/BIOPSY SINGLE/MULTIPLE 02/28/2011 TOTAL ABDOMINAL HYSTERECT W/WO RMVL TUBE OVARY 02/1990 Hysterectomy, TERI, BSO FAMILY HISTORY Problem Relation Age of Onset Breast Cancer Mother dec. age 88 Blood Disease Father PE, post MVA, dec. 53yo Breast Cancer Sister Myositis Sister Inclusion Body Myositis None Sister Alzheimer's Disease Sister other (multiple myeloma) Brother Social History Tobacco Use Smoking status: Never Smokeless tobacco: Never Vaping Use Vaping Use: Never used Substance Use Topics Alcohol use: No Drug use: No Objective BP 120/75 Pulse 97 Temp 37.4 C (99.3 F) Resp 18 Wt 61.7 kg (136 lb) SpO2 98% BMI 23.34 kg/m Physical Exam Vitals reviewed. Constitutional: Appearance: Normal appearance. HENT: Head: Normocephalic and atraumatic. Right Ear: Tympanic membrane, ear canal and external ear normal. Left Ear: Tympanic membrane, ear canal and external ear normal. Nose: Congestion present. Mouth/Throat: Mouth: Mucous membranes are moist. Pharynx: Oropharynx is clear. Cardiovascular: Rate and Rhythm: Normal rate and regular rhythm. Heart sounds: Normal heart sounds. Pulmonary: Effort: Pulmonary effort is normal. Breath sounds: Normal breath sounds. Musculoskeletal: Cervical back: Neck supple. Skin: General: Skin is warm and dry. Findings: No rash. Neurological: Mental Status: She is alert. Assessment and Plan ASSESSMENT/PLAN: 1. URI, acute - ICD9: 465.9, ICD10: J06.9 (primary diagnosis) - if positive for covid would recommend oral antiviral treatment. - Discussed viral etiology and rationale for treatment. - Symptomatic treatment with prn analgesia - Supportive care with fluids and rest - Follow up in 3-5 days if symptoms persist or sooner if worsening of symptoms 2. Vertigo - ICD9: 780.4, ICD10: R42 Meclizine sent, discussed sedation. She sees PT for vertigo tomorrow. No signs of central dizzinessor cva today. She has had vertigo previously and this is the same per patient. Discussed red flags for er care. Patient agreeable. Dayan Del Rosario PA-C documented in this encounterOhiohealth O[facility]11-09-2023 Instructions* Patient Instructions* Dayan Del Rosario PA-C - 02/27/2023 10:15 AM EST Take meclizine as needed for the dizziness. Will cause sedation so be careful taking this during the day. Hold the Claritin if you take the meclizine. Start Flonase. If positive for COVID would recommend oral antiviral treatment. documented in this encounterOhiohealth O'[facility]08-18-2023 History of Present illness Narrative* Lemuel Howard APRN.[facility] - 12/06/2022 3:45 PM EDT CC: Patient presents with: Nasal Congestion: Sneezing and runny nose Used to see an labeling specialist and obtain shots and medication for allergies. Patient became allergic to the shots so they weaned her off of them and she was good for several years on just [id number]. Patient says this year has been really bad for over the last couple days seems to be getting worse. Patient says her sneezing has increased. HPI: Fannie Avalos is a 77 year old female who presents to the office with complaint of rhinorrhea for a few days. Symptoms are worsening Associated symptoms includes sneezing and nasal congestion. Denies fever, nausea, vomiting , and diarrhea. Treatments tried include nothing so far. with no relief of symptoms. Sick contacts: unknown. History of asthma, frequent episodes of bronchitis, chronic bronchitis, bronchiectasis or COPD: No Smoker: No Seasonal/environmental allergies: Yes seasonal The ROS is otherwise negative. The patient's pmh, medications, allergies, and past visits are reviewed. PHYSICAL EXAM: BP 120/80 Pulse 86 Resp 16 Wt 62.3 kg (137 lb 6.4 oz) SpO2 98% BMI 23.58 kg/m General appearance: alert, cooperative, pleasant, in no acute distress Head: Normocephalic Eyes: EOM's intact, conjunctiva pink and moist, no icterus, sclera white, non-injected Ears: Right ear: External ear/canal- Normal, TM - clear with good landmarks. Left ear: External ear/canal- Normal, TM - clear with good landmarks Oropharynx:moist without lesions, No erythema, exudates or tonsillar hypertrophy. Heart: Negative. RRR without obvious murmur, gallop, or rubs. No ectopy. 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 CERVICAL SPONDYLOSIS 02/26/2005 Diarrhea Diverticulosis of colon 01/06/2009 Esophageal reflux Hemorrhage of rectum and anus 12/02/2017 HEMORRHOIDS NOS 11/30/2008 HYPERLIPIDEMIA NEC/NOS 03/18/2005 IBS (irritable bowel syndrome) 01/26/2013 Incontinence of feces 11/30/2008 Incontinence of feces 03/09/2021 Osteopenia Palpitations 01/13/2012 Perforation of large intestine (HCC) 12/03/2017 Spondylosis, 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 TIA (transient ischemic attack) 06/17/2017 [place], [place] PAST SURGICAL HISTORY Procedure Laterality Date CHOLECYSTECTOMY HX 03/2018 COLONOSCOPY FLX DX W/COLLJ SPEC WHEN PFRMD 10/20/2003 Colonoscopy COLONOSCOPY FLX DX W/COLLJ SPEC WHEN PFRMD 01/06/2009 Extensive diverticulosis/hemorrhoids COLONOSCOPY FLX DX W/COLLJ SPEC WHEN PFRMD 07/24/2012 [place] COLSC FLEXIBLE W/CONTROL BLEEDING ANY METHOD 12/02/2017 laser of cecal AVM DRAIN ABDOMINAL ABSCESS, PERCUTANEOUS 12/15/2017 perianastomotic abscess EGD 12/02/2017 ESOPHAGOGASTRODUODENOSCOPY TRANSORAL DIAGNOSTIC 07/03/2012 [place] GAMMA KNIFE 1FX TX DELIVERY 02/12/2022 x 3 on 01/15/22; 01/29/22; 02/12/22 HEMORRHOIDECTOMY INT & XTRNL 2/> COLUMN/HI 10/26/2009 LAMINECTOMY W/RMVL ABNORMAL FACETS LUMBAR 07/08/2011 [place], [place] LAPAROSCOPY COLECTOMY PARTIAL W/ANASTOMOSIS 02/02/2009 LAPAROSCOPY COLECTOMY PARTIAL W/ANASTOMOSIS Right 12/03/2017 LAPS MOBLJ SPLENIC FLXR PFRMD W/PRTL COLECTOMY 02/02/2009 PAST SURGICAL HISTORY OF 1964 ovarian cyst removed PAST SURGICAL HISTORY OF 2001 BREAST BIOPSY--BENIGN PAST SURGICAL HISTORY OF 03/28/2018 Gallbladder removed SIGMOIDOSCOPY FLX CONTROL BLEEDING 03/22/2009 Granulation tissue at anastomosis SIGMOIDOSCOPY FLX W/BIOPSY SINGLE/MULTIPLE 02/28/2011 TOTAL ABDOMINAL HYSTERECT W/WO RMVL TUBE OVARY 02/1990 Hysterectomy, TERI, BSO ALLERGIES Bactrim [Sulfamethoxazole-Trimethoprim], Clindamycin Hcl, Flagyl [Metronidazole Hcl], Gadolinium-Containing Contrast Media, Trimethoprim, and Levofloxacin MEDICATIONS carvedilol (COREG) 3.125 mg tablet iv contrast (will be provided with radiology test) MRI Brain Inject, intravenously, once for 1 dose.No IV access, insert saline lock prior to beginning of sedation, infusion, injection of imaging exam.Discontinue saline lock post exam. If Pt. has a central line or IVAD, may access for administration according to line specific nursing protocol.Once exam is complete flush line and de-access according to line specific nursing protocol in the MR contrast administration guidelines link omeprazole (PRILOSEC) 20 mg capsule Take 20 mg by mouth once daily. atorvastatin (LIPITOR) 40 mg tablet TAKE 1 TABLET EVERY DAY AT BEDTIME FOR CHOLESTEROL ibuprofen (MOTRIN) 600 mg tablet Take 1 tablet by mouth every 8 hours as needed for pain. Cholecalciferol, Vitamin D3, 25 mcg (1,000 unit) cap Take 1 capsule by mouth once daily. wheat dextrin (BENEFIBER CLEAR SF, DEXTRIN, ORAL) Take 1 teaspoonful by mouth three times daily. VITAMIN E 200 UNIT CAP Take 200 Units by mouth once daily. Perry-3 Fatty Acids (FISH OIL) ORAL Cap Take one(1) capsule daily. MULTIVITAMIN TAB Take one(1) tablet daily. ASPIRIN 81 MG TAB Take 81 mg by mouth once daily. fluticasone (FLONASE) 50 mcg/actuation nasal spray Use 2 Sprays in each nostril once daily. Rinse mouth after use. predniSONE (DELTASONE) 20 mg tablet Take 1 tablet by mouth once daily for 5 days. CALCIUM + D 600 MG-200 UNIT TAB Take one(1) tablet daily. FAMILY HISTORY Problem Relation Age of Onset Breast Cancer Mother dec. age 88 Blood Disease Father PE, post MVA, dec. 53yo Breast Cancer Sister Myositis Sister Inclusion Body Myositis None Sister Alzheimer's Disease Sister other (multiple myeloma) Brother Social History Tobacco Use Smoking status: Never Smokeless tobacco: Never Vaping Use Vaping Use: Never used Substance Use Topics Alcohol use: No Drug use: No ASSESSMENT/PLAN: 1. Sinus congestion - ICD9: 478.19, ICD10: R09.81 - FLUTICASONE PROPIONATE 50 MCG/ACTUATION NASAL SPRAY,SUSPENSION - PREDNISONE 20 MG TABLET We will follow-up with ENT. Prescription instructions reviewed with patient as applicable. Potential red flag symptoms discussed with the patient. Reviewed appropriate action plan to take if red flag symptoms occur. Patient agreeable to treatment plan. Lemuel Howard APRN.FINANCE SPECIALIST documented in this encounterOhiohealth O'[facility]05-11-2023 History of Present illness Narrative* RT Cherri(R) - 08/29/2022 10:30 AM EDT Radiology Service Progress Note DATE OF SERVICE: August 29, 2022 TIME: 10:37 AM PATIENT IDENTITY VERIFICATION COMPLETED USING TWO (2) STANDARD IDENTIFIERS: Name and Date of confirmed by patient verbally and Name and Date of confirmed by identification band. FALL SCREENING: Has the patient had 2 falls in the last year or 1 fall with injury or currently using an Ambulatory Assistive Device (Walker, Cane, Wheelchair, Crutches, etc.)? No PATIENT GENDER DATA: Female. status: : No status: NO. PATIENT RELEVANT IMPLANT DATA REVIEWED: Yes ALLERGIES: Reviewed and unchanged CONTRAST ALLERGY: YES medrol prep done. EXAM: MRI - CONTRAST TYPE: GROUP II PERIPHERAL IV DATA: Ambulatory: A peripheral IV was started in the Right antecubital site with a Angio cath: 22 gauge. RADIOLOGY DEPARTMENT: MR; Exam(s) Completed: Head: Routine Brain SIGNATURE: RT Cherri(R) PATIENT NAME: Fannie Avalos DATE: August 29, 2022 TIME: 10:37 AM documented in this encounterOhiohealth O[facility]12-06-[facility]22 History of Present illness Narrative* Yojana Rollins MD - 03/26/2022 8:09 PM EST HISTORY AND PHYSICAL Fannie Avalos 1945 REFERRING PHYSICIAN: Self CHIEF COMPLAINT: Consult (Blood in stool) HPI: The patient is a 76 year old female referred for endoscopy. Fannie is here for second opinion regarding consideration for upper and lower endoscopy. She is scheduled for this with Dr. Reid in two days She states that she initially went to see Dr. Reid for an uncomfortable lipoma of abdominal wall She was found to have heme positive stools She notes soft bowel movements, however, she feels like there is an obstruction in the area, as thebowel movements are difficult to evacuate. She also notes slight fecal incontinence. She denies blood in her stools, however, in Dr. Reid's note, the patient had complained of melanotic stools and abdominal pain. She denies abdominal pain at present. The patient presents for second opinion regarding whether she should proceed with colonoscopy, she is OK with upper endoscopy. I asked patient what her concerns for colonoscopy were. She states that she is concerned about perforation, as her last colonoscopies resulted in colon surgeries soon after. She states that she had right colon surgery two days after her colonoscopy in 2017. She states that two weeks after her colonoscopy in 2008 she underwent surgery. She notes no colon cancer in her family. 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 CERVICAL SPONDYLOSIS 02/26/2005 Diarrhea Diverticulosis of colon 01/06/2009 Esophageal reflux Hemorrhage of rectum and anus 12/02/2017 HEMORRHOIDS NOS 11/30/2008 HYPERLIPIDEMIA NEC/NOS 03/18/2005 IBS (irritable bowel syndrome) 01/26/2013 Incontinence of feces 11/30/2008 Osteopenia Palpitations 01/13/2012 Perforation of large intestine (HCC) 12/03/2017 Spondylosis, 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 TIA (transient ischemic attack) 06/17/2017 [place], [place] PAST SURGICAL HISTORY Procedure Laterality Date CHOLECYSTECTOMY HX 03/2018 COLONOSCOPY FLX DX W/COLLJ SPEC WHEN PFRMD 10/20/2003 Colonoscopy COLONOSCOPY FLX DX W/COLLJ SPEC WHEN PFRMD 01/06/2009 Extensive diverticulosis/hemorrhoids COLONOSCOPY FLX DX W/COLLJ SPEC WHEN PFRMD 07/24/2012 [place] COLSC FLEXIBLE W/CONTROL BLEEDING ANY METHOD 12/02/2017 laser of cecal AVM DRAIN ABDOMINAL ABSCESS, PERCUTANEOUS 12/15/2017 perianastomotic abscess EGD 12/02/2017 ESOPHAGOGASTRODUODENOSCOPY TRANSORAL DIAGNOSTIC 07/03/2012 [place] GAMMA KNIFE 1FX TX DELIVERY 02/12/2022 x 3 on 01/15/22; 01/29/22; 02/12/22 HEMORRHOIDECTOMY INT & XTRNL 2/> COLUMN/HI 10/26/2009 LAMINECTOMY W/RMVL ABNORMAL FACETS LUMBAR 07/08/2011 [place], [place] LAPAROSCOPY COLECTOMY PARTIAL W/ANASTOMOSIS 02/02/2009 LAPAROSCOPY COLECTOMY PARTIAL W/ANASTOMOSIS Right 12/03/2017 LAPS MOBLJ SPLENIC FLXR PFRMD W/PRTL COLECTOMY 02/02/2009 PAST SURGICAL HISTORY OF 1964 ovarian cyst removed PAST SURGICAL HISTORY OF 2001 BREAST BIOPSY--BENIGN PAST SURGICAL HISTORY OF 03/28/2018 Gallbladder removed SIGMOIDOSCOPY FLX CONTROL BLEEDING 03/22/2009 Granulation tissue at anastomosis SIGMOIDOSCOPY FLX W/BIOPSY SINGLE/MULTIPLE 02/28/2011 TOTAL ABDOMINAL HYSTERECT W/WO RMVL TUBE OVARY 02/1990 Hysterectomy, TERI, BSO Current Outpatient Medications Medication Sig atorvastatin (LIPITOR) 40 mg tablet TAKE 1 TABLET EVERY DAY AT BEDTIME FOR CHOLESTEROL atenolol (TENORMIN) 25 mg tablet Take 1 tablet by mouth once daily. ibuprofen (MOTRIN) 600 mg tablet Take 1 tablet by mouth every 8 hours as needed for pain. Cholecalciferol, Vitamin D3, 25 mcg (1,000 unit) cap Take 1 capsule by mouth once daily. wheat dextrin (BENEFIBER CLEAR SF, DEXTRIN, ORAL) Take 1 teaspoonful by mouth three times daily. VITAMIN E 200 UNIT CAP Take one(1) tablet daily. Perry-3 Fatty Acids (FISH OIL) ORAL Cap Take one(1) capsule daily. MULTIVITAMIN TAB Take one(1) tablet daily. ASPIRIN 81 MG TAB Take one (1) tablet daily . iv contrast (will be provided with radiology test) MRI Brain Inject, intravenously, once for 1 dose.No IV access, insert saline lock prior to beginning of sedation, infusion, injection of imaging exam.Discontinue saline lock post exam. If Pt. has a central line or IVAD, may access for administration according to line specific nursing protocol.Once exam is complete flush line and de-access according to line specific nursing protocol in the MR contrast administration guidelines link (Patient not taking: Reported on 03/26/2022) CALCIUM + D 600 MG-200 UNIT TAB Take one(1) tablet daily. ALLERGIES: Bactrim [Sulfamethoxazole-Trimethoprim], Clindamycin Hcl, Flagyl [Metronidazole Hcl], Gadolinium-Containing Contrast Media, Trimethoprim, and Levofloxacin PERSONAL HISTORY: Social History Tobacco Use Smoking status: Never Smokeless tobacco: Never Vaping Use Vaping Use: Never used Substance Use Topics Alcohol use: No Drug use: No FAMILY HISTORY Problem Relation Age of Onset Breast Cancer Mother dec. age 88 Blood Disease Father PE, post MVA, dec. 53yo Breast Cancer Sister Myositis Sister Inclusion Body Myositis None Sister Alzheimer's Disease Sister other (multiple myeloma) Brother The review of systems data was entered by the nurse and reviewed by me Nursing Notes: Sandra Chopra RN 03/26/2022 10:15 AM Signed REVIEW OF SYSTEMS: General: The patient denies fatigue, denies weight loss, denies weight gain, denies feeling hot, and denies feelings of cold. Eyes: The patient denies glaucoma, denies eye injury/surgery, wears glasses or contacts. Ear/Nose/Throat: The patient denies allergies, NOTES hayfever, denies ear infections, and denies bloody noses. Cardiovascular: The patient denies chest pain, denies heart disease, denies high blood pressure,denies cardiac stent, denies prior heart attack, denies irregular heart beat, denies high cholesterol, denies poor circulation, denies heart failure, other cardiac issues, denies claudication, denies cold feet, denies peripheral arterial stent. Respiratory: The patient denies tuberculosis, denies pneumonia, denies frequent cough, denies pulmonary embolism, denies shortness of breath, and denies coughing up blood. Gastrointestinal: The patient denies difficulty swallowing, denies acid reflux, denies ulcers, denies vomiting, denies jaundice/hepatitis, denies gallbladder problems, denies black or tarry stools, NOTES hemorrhoids, NOTES bleeding from rectum, denies diverticulitis, NOTES constipation, NOTES diarrhea, NOTES loss of stool control, and denies hernias. Kidney/Bladder: The patient denies kidney stones, denies urine infections, and denies bloody urine. Skin: The patient denies a history of skin cancer, denies bleeding/changing moles, and denies a history of skin rash. Neurologic: The patient denies a history of epilepsy/convulsions, denies headaches, denies head/spinal injuries, and denies stroke/TIA. Psychiatric: The patient denies psychiatric medications, denies depression, and denies voices, denies substance abuse. Endocrine: The patient denies thyroid disorders, denies diabetes, and denies hormonal problems. Hematologic: The patient denies a history of bruising, denies bleeding, and denies anemia, denies blood clots. Infections: The patient denies a history of measles and mumps, denies rheumatic fever, and denies sexually transmitted diseases. Musculoskeletal: The patient NOTES back pain/injury, NOTES back problems, denies sciatica, denies knee/foot trouble, denies arthritis, or denies gout. When was patient's last Mammogram screening? 2021 Last Colonoscopy: 2017 Sandra Chopra RN PHYSICAL EXAMINATION: General: The patient is 76 year old female, well nourished, well hydrated in no acute distress. Thepatient is oriented to time, place, and person. VITALS: Blood pressure 140/84, pulse 80, temperature 37.1 C (98.7 F), height 162.6 cm (5' 4), weight 61.7 kg (136 lb), SpO2 98 %. Body mass index is 23.34 kg/m . Head: Normal cephalic, atraumatic Eyes: pupils are equally round, sclera are clear/anicteric, Wearing glasses Neck is supple with no tracheal deviation Respiratory: Normal respiratory excursion and pattern. Abdominal exam: benign Extremities: no clubbing, cyanosis or edema. Neuro: non focal Psych: normal mood Assessment IMPRESSION: PLAN: I have discussed above with patient and her . I have explained the need for upper and lower endoscopy based upon patient's history. I told patient that I feel that Dr. Reid will take extra precautions with the patient given her history. She is already scheduled for upper and lower endoscopy with Dr. Reid in two days. Patient acknowledges above. Diagnoses: (R19.5) Heme positive stool (primary encounter diagnosis) I have answered patient's questions and she has no further questions. I have confirmed and edited as necessary, the PFSH and ROS obtained by others. Return to Clinic: The patient may return to this clinic if any worsening signs/symptoms. I spent a total of 32 minutes on the date of the service which included preparing to see the patient with review of any pertinent laboratory studies/radiological imaging/medical records from other medical facilities such as [facility], [id number] patient care, obtaining oral medical history from the patient in this encounter,counseling and educating the patient/family/caregiver,and completing appropriate medical documentation. Yojana Rollins MD documented in this encounterOhiohealth O[facility]12-06-2022 Nurse Note* Sandra Chopra RN - 03/26/2022 10:11 AM EST REVIEW OF SYSTEMS: General: The patient denies fatigue, denies weight loss, denies weight gain, denies feeling hot, and denies feelings of cold. Eyes: The patient denies glaucoma, denies eye injury/surgery, wears glasses or contacts. Ear/Nose/Throat: The patient denies allergies, NOTES hayfever, denies ear infections, and denies bloody noses. Cardiovascular: The patient denies chest pain, denies heart disease, denies high blood pressure,denies cardiac stent, denies prior heart attack, denies irregular heart beat, denies high cholesterol, denies poor circulation, denies heart failure, other cardiac issues, denies claudication, denies cold feet, denies peripheral arterial stent. Respiratory: The patient denies tuberculosis, denies pneumonia, denies frequent cough, denies pulmonary embolism, denies shortness of breath, and denies coughing up blood. Gastrointestinal: The patient denies difficulty swallowing, denies acid reflux, denies ulcers, denies vomiting, denies jaundice/hepatitis, denies gallbladder problems, denies black or tarry stools, NOTES hemorrhoids, NOTES bleeding from rectum, denies diverticulitis, NOTES constipation, NOTES diarrhea, NOTES loss of stool control, and denies hernias. Kidney/Bladder: The patient denies kidney stones, denies urine infections, and denies bloody urine. Skin: The patient denies a history of skin cancer, denies bleeding/changing moles, and denies a history of skin rash. Neurologic: The patient denies a history of epilepsy/convulsions, denies headaches, denies head/spinal injuries, and denies stroke/TIA. Psychiatric: The patient denies psychiatric medications, denies depression, and denies voices, denies substance abuse. Endocrine: The patient denies thyroid disorders, denies diabetes, and denies hormonal problems. Hematologic: The patient denies a history of bruising, denies bleeding, and denies anemia, denies blood clots. Infections: The patient denies a history of measles and mumps, denies rheumatic fever, and denies sexually transmitted diseases. Musculoskeletal: The patient NOTES back pain/injury, NOTES back problems, denies sciatica, denies knee/foot trouble, denies arthritis, or denies gout. When was patient's last Mammogram screening? 2021 Last Colonoscopy: 2018 Sandra Chopra RN documented in this encounterOhiohealth O[facility]11-16-2022 Miscellaneous Notes* Letter - Mammography Coordinator - 03/06/2022 2:42 PM EST March 06, 2022 PID: [id number] Fannie Avalos [address] [place] [address] Dear Ms. Avalos, We are pleased to inform you that the results of your recent breast imaging exam on 03/05/2022 are normal. Early detection of cancer is very important. We also understand recommendations regarding breast cancer screening are controversial. Please discuss with your primary care provider which strategy is best for you and whether a mammogram is right for you. Your imaging studies and report will be kept on file at [facility] as part of your permanent medical record and are available for your continuing care. Thank you for allowing us to help in meeting your health care needs. Sincerely, Dr. Steel Interpreting Radiologist [facility] (Normal over 40) documented in this encounterOhiohealth O'[facility]len[facility]11-15-2022 History of Present illness Narrative* Leisa Singleton, RT(R) - 03/05/2022 2:20 PM EST Radiology Service Progress Note PATIENT NAME: Fannie Avalos DATE OF SERVICE: March 05, 2022 TIME: 2:25 PM PATIENT IDENTITY VERIFICATION COMPLETED USING TWO (2) IDENTIFIERS: Name and Date of confirmedby patient verbally and Name and Date of confirmed by identification band. FALL SCREENING: Has the patient had 2 falls in the last year or 1 fall with injury or currently using an Ambulatory Assistive Device (Walker, Cane, Wheelchair, Crutches, etc.)? No PATIENT GENDER DATA: Female. status: : No status: NO. PATIENT RELEVANT IMPLANT DATA REVIEWED: Not Applicable RADIOLOGY DEPARTMENT: Mammography PERIPHERAL IV DATA: Not applicable SIGNED BY: Leisa Singleton RT(R) March 05, 2022 2:25 PM documented in this encounterOhiohealth O'[facility]11-09-2022 Instructions* Patient Instructions* Gavin Tran MD - 02/27/2022 2:19 PM EST IMMUNIZATION RECORDS FROM [place]. TDAP AT YOUR PHARMACY. ADVANCED DIRECTIVE COPIES. documented in this encounterOhiohealth O'[facility]11-09-2022 History of Present illness Narrative* Gavin Tran MD - 02/27/2022 2:01 PM EST This note was created using [employer]. Saul Avalos is a 76 year old female. She was doing well. She complained of increasing memory deficits remembering names. She followed regularly with neurosurgery and had 3 gamma knife treatmentsfor benign meningioma that had increased in size December and January this year. Review of Systems Constitutional: Negative. Respiratory: Negative. Cardiovascular: Negative. Gastrointestinal: Negative. Neurological: Negative for dizziness, tremors, seizures, syncope, facial asymmetry, speech difficulty, weakness, light-headedness, numbness and headaches. Psychiatric/Behavioral: Negative for confusion and decreased concentration. ACTIVE PROBLEM LIST Hyperlipidemia Allergic Rhinitis Palpitations Ibs (Irritable Bowel Syndrome) Osteopenia Carotid Artery Stenosis Incontinence of Feces Benign Neoplasm of Meninges (Hcc) Current Outpatient Medications Medication Sig atenolol (TENORMIN) 25 mg tablet Take 1 tablet by mouth once daily. ibuprofen (MOTRIN) 600 mg tablet Take 1 tablet by mouth every 8 hours as needed for pain. Cholecalciferol, Vitamin D3, 25 mcg (1,000 unit) cap Take 1 capsule by mouth once daily. wheat dextrin (BENEFIBER CLEAR SF, DEXTRIN, ORAL) Take 1 teaspoonful by mouth three times daily. VITAMIN E 200 UNIT CAP Take one(1) tablet daily. Perry-3 Fatty Acids (FISH OIL) ORAL Cap Take one(1) capsule daily. MULTIVITAMIN TAB Take one(1) tablet daily. ASPIRIN 81 MG TAB Take one (1) tablet daily . atorvastatin (LIPITOR) 40 mg tablet TAKE 1 TABLET EVERY DAY AT BEDTIME FOR CHOLESTEROL iv contrast (will be provided with radiology test) MRI Brain Inject, intravenously, once for 1 dose.No IV access, insert saline lock prior to beginning of sedation, infusion, injection of imaging exam.Discontinue saline lock post exam. If Pt. has a central line or IVAD, may access for administration according to line specific nursing protocol.Once exam is complete flush line and de-access according to line specific nursing protocol in the MR contrast administration guidelines link cyclobenzaprine (FLEXERIL) 5 mg tablet Take 1 tablet by mouth twice daily as needed for up to 15 days. (Patient not taking: Reported on 02/27/2022) CALCIUM + D 600 MG-200 UNIT TAB Take one(1) tablet daily. No current facility-administered medications for this visit. Objective BP 110/64 (BP Site: Right Arm, BP Position: Sitting, BP Cuff Size: Large Adult) Pulse 68 Temp 36.1 C (96.9 F) (Temporal) Resp 16 Ht 161.5 cm (5' 3.6) Wt 62.1 kg (137 lb) BMI 23.81 kg/m Physical Exam Constitutional: General: She is not in acute distress. Appearance: She is not ill-appearing. Eyes: Extraocular Movements: Extraocular movements intact. Conjunctiva/sclera: Conjunctivae normal. Pupils: Pupils are equal, round, and reactive to light. Cardiovascular: Rate and Rhythm: Normal rate and regular rhythm. Pulmonary: Breath sounds: Normal breath sounds. Neurological: General: No focal deficit present. Mental Status: She is alert and oriented to person, place, and time. Cranial Nerves: No cranial nerve deficit. Sensory: No sensory deficit. Motor: No weakness. Gait: Gait normal. Folstein MMSE 02/27/[address] 5 REGISTRATION 3 ATTENTION & CALCULATION 2 RECALL 0 LANGUAGE 2 REPEAT 1 FOLLOW 3-STEP COMMAND 3 READ AND OBEY 1 WRITE A SENTENCE 1 COPY 1 SCORE 25 Calculation 2/5. [place]ell [place] backward 5/5 Assessment and Plan 1. Medicare annual wellness visit, subsequent - ICD9: V70.0, ICD10: Z00.00 (primary diagnosis) See wellness note. 2. Hyperlipidemia, unspecified hyperlipidemia type - ICD9: 272.4, ICD10: E78.5 - good control - ATORVASTATIN 40 MG TABLET 3. Palpitations - ICD9: 785.1, ICD10: R00.2 Controlled. 4. Osteopenia, unspecified location - ICD9: 733.90, ICD10: M85.80 - Reviewed the need for Calcium and Vitamin D supplements and weight bearing exercise as tolerated 5. Encounter for screening mammogram for malignant neoplasm of breast - ICD9: V76.12, ICD10: Z12.31 - [place] SCREENING 6. Memory disturbance - ICD9: 780.93, ICD10: R41.3 New concern. Mild. Monitor only for now. Discuss this at neurology/neurosurgery follow up as well in spring. Gavin Tran MD * Gavin Tran MD - 02/27/2022 1:51 PM EST Fannie Avalos is a 76 year old female here for a Medicare Subsequent Annual Wellness Visit Welcome to Medicare and Medicare Wellness Visits are an opportunity to create and update a personalized plan to help prevent disease and disability, based on your current health and risk factors. The yearly Wellness visit isn t a physical exam. Additional concerns may generate additional chargesor co-pays. Health Risk Assessment In general, health is: Very good Concerns with tiredness, difficulties with sexual function, balance, teeth/dentures: Not at all [place] anxious, stressed, angry, irritable, lonely, isolated, or had thoughts of hurting themself: Not at all Has little interest or pleasure in doing things: Not at all Bothered by feeling down, depressed, or hopeless: Not at all Needs help with grocery shopping, cooking, housework, bathing, grooming, dressing, eating, sitting or standing, walking, using the toilet, handling finances, taking medications, using the telephone, or driving: No Following safety precautions in the home environment and vehicle: removed throw rugs from floors, installed grab bars in the bathroom, handrails in stairwells, having adequate lighting, wearing seatbelt at all times?: Yes Smokes cigarettes, vapes, or chew tobacco: No Eats healthy foods including fruits, vegetables, whole grains, and fiber-rich foods: Nearly every day Number of days per week engages in exercise: 3 days Average alcohol consumption: Never Current Providers Patient Care Team: Gavin Tran MD as PCP - General (Internal Medicine) Bernabe Cox MD as Referring (Neurosurgery) Ignacia Dawn MD as Physician (Radiation Oncology) Specialists: I have reviewed specialist-related care of the patient in the medical record. and Outside specialists seen: Dr. Crump, ophtalmology. Dr. Gomez, [facility]. [place] physicians as needed. Medical/Family history review Reviewed and updated problem list, medical history, surgical history, family history, social history, medication list, and allergies. Opioid use review Patient is not currently using opioids. Depression screening Depression Screening PHQ-2 Score PHQ-9 Score Score (Questions 1 & 2) Total Score (All Questions) 10/04/2021 0 0 0 0 Depression screening tool completed and reviewed. Based on score and interview, patient is not at risk for depression. Screening tool discussed with patient, and I recommended no further interventionat this time. Cognitive screening Mini Cog Score: 5 Cognitive screening reviewed and no further action needed (score 3-5) Functional Observation Was the patient's timed Up & Go test unsteady or longer than 30 seconds? No Advance Care Planning End of Life planning discussed, including patient's advanced directive wishes: Yes Measurements BP 110/64 Pulse 68 Temp (Src) 96.9 (Temporal) Resp 16 Ht 5' 3.6 (1.62m) Wt 137 lb (62.1kg) BMI 23.83 kg/(m^2). Visual acuity: follows with optometry/ophthalmology Hearing Evaluation: within normal limits Assessment/Plan - Counseled on healthy diet and regular exercise - Fall avoidance - Vaccines recommended Tdap at pharmacy - Mammogram recommended and ordered - Depression screening documented in this encounterOhiohealth O'[facility]10-27-2022 Miscellaneous Notes* Telephone Encounter - Philip Casas RN - 02/14/2022 2:40 PM EDT Patient had Gamma Knife Treatment on 02/12/2022. Post procedure call placed and spoke with patient The following items were reported: Patient states that she has had some mild discomfort at pin sites. Pin Sites: Reports that all 4 pin sites are free of infection. Reviewed signs and symptoms of infection and what to report. Reinforced Follow-Up Appointment Reinforced to call the [facility] at [phone] with any questions or concerns. Verbal understanding given for all instructions. documented in this encounterOhiohealth O'[facility]len[facility]10-27-2022 History of Present illness Narrative* Arely Camarena APRN.FINANCE SPECIALIST - 02/14/2022 11:20 AM EDT SUBJECTIVE: Fannie Avalos is a 76 year old female. Who presents today with upper back pain on the left shoulder. It started this summer when she had a heel spur. This threw her gait off and she was going to achiropractor to help. This did help and she was feeling better. But know she is done with that and the pain is coming back. She is also doing gamma knife treatment. during these treatments she is having elevated heart rates and she had to wear a heart monitor yesterday. She has had a lot of stress lately. She is wondering if this could be causing the pain. She has no sob or chest pain. She had a chest xray on jan 15 and it was normal. She has noticed a generalized weakness in her arms. She hasno loss of b/b control. She has no fever. 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 age 88 Blood Disease Father PE, post MVA, dec. 53yo Breast Cancer Sister other (Other) Sister complications from falling Breast Cancer Sister None Sister other (multiple myeloma) Brother Alzheimer's Disease Sister Social History Tobacco Use Smoking status: Never Smokeless tobacco: Never Vaping Use Vaping Use: Never used Substance Use Topics Alcohol use: No Drug use: No ALLERGIES Allergen Reactions Bactrim [Sulfametho* GI Upset nausea Clindamycin Hcl GI Upset Flagyl [Metronidazo* GI Upset Gadolinium-Containi* Hives Gadolinium/Gadavist Trimethoprim Vomiting Levofloxacin GI Upset Current Outpatient Medications Medication Sig Dispense Refill atenolol (TENORMIN) 25 mg tablet Take 1 tablet by mouth once daily. 90 tablet 3 ibuprofen (MOTRIN) 600 mg tablet Take 1 tablet by mouth every 8 hours as needed for pain. 30 tablet1 atorvastatin (LIPITOR) 40 mg tablet TAKE 1 TABLET EVERY DAY AT BEDTIME FOR CHOLESTEROL 90 tablet 3 Cholecalciferol, Vitamin D3, 25 mcg (1,000 unit) cap Take 1 capsule by mouth once daily. wheat dextrin (BENEFIBER CLEAR SF, DEXTRIN, ORAL) Take 1 teaspoonful by mouth three times daily. VITAMIN E 200 UNIT CAP Take one(1) tablet daily. 0 Perry-3 Fatty Acids (FISH OIL) ORAL Cap Take one(1) capsule daily. 0 MULTIVITAMIN TAB Take one(1) tablet daily. 0 ASPIRIN 81 MG TAB Take one (1) tablet daily . 0 sodium chloride 0.9 %, flush, (BD POSIFLUSH) syringe Inject 2-10 mL intravenously as needed. (Patient not taking: Reported on 02/14/2022) 13 mL 0 predniSONE (DELTASONE) 50 mg Take 1 tablet by mouth as directed. Take one tablet 13 hours prior to MRI, take one tablet 7 hours prior to MRI, take one tablet 1 hour prior to MRI on 02/12/2022 (Patient not taking: Reported on 02/14/2022) 3 tablet 0 iv contrast (will be provided with radiology test) MRI Brain Inject, intravenously, once for 1 dose.No IV access, insert saline lock prior to beginning of sedation, infusion, injection of imaging exam.Discontinue saline lock post exam. If Pt. has a central line or IVAD, may access for administration according to line specific nursing protocol.Once exam is complete flush line and de-access according to line specific nursing protocol in the MR contrast administration guidelines link (Patient not taking: Reported on 02/14/2022) 1 Each 0 sodium chloride 0.9 %, flush, (BD POSIFLUSH) syringe Inject 2-10 mL intravenously as needed. (Patient not taking: Reported on 02/14/2022) 13 mL 0 diphenhydrAMINE (BENADRYL) 25 mg capsule Take 2 capsules by mouth as directed. Take 50 mg by mouth 1 hr prior to MRI on 01/29 (Patient not taking: Reported on 02/14/2022) 1 capsule 0 sodium chloride 0.9 %, flush, (BD POSIFLUSH) syringe Inject 2-10 mL intravenously as needed. (Patient not taking: Reported on 02/14/2022) 13 mL 0 CALCIUM + D 600 MG-200 UNIT TAB Take one(1) tablet daily. 0 No current facility-administered medications for this visit. OBJECTIVE: BP 160/88 Pulse 68 Temp 36.4 C (97.5 F) Resp 21 Wt 62.3 kg (137 lb 6.4 oz) SpO2 98% BMI24.34 kg/m ROS all other systems reviewed and are negative Physical Exam Constitutional: Well developed, well nourished, NAD, A&O X3. ENT: Head is atraumatic, airway patent, mucosal membranes moist. Eyes: EOMI, PERRL, no drainage, vision unchanged Neck: supple with no palpable lymph nodes Cardiac: Heart tone normal rate and rhythm Respiratory: Breath sounds clear : no CVA tenderness MS: no swelling, tenderness or deformity in upper or lower extremities, no midline tenderness in cervical, thoracic or lumbar spine no step off or deformity + muscle spasms across left shoulder blade. Full ROM of upper and lower extremities. Neuro: strength sensation and coordination intact. CN II-XII grossly intact, no neuro deficits Skin: warm and dry with out rash, lesion or ecchymosis on exposed skin Psych: alert appropriate, speech clear It was a pleasure to take care of Fannie S Bailey today. I reviewed her last chest xray and it wasnormal. I will give her a script of flexeril for muscle spasms. She was warned of the sedating effects of the medications. She will discuss the pain that she is having with her neurologist to make sure this is not a side effect from the gamma knife. She will continue with cardiology. She may do some light stretching to continue to move the tight muscles. Patient will follow up with family physician. They may return to the Urgent Care or go to the ER for worsening symptoms or concerns. Patient verbalized understanding of plan of care and is in agreement. ASSESSMENT/PLAN: 1. Muscle spasm - ICD9: 728.85, ICD10: M62.838 - CYCLOBENZAPRINE 5 MG TABLET Arely Camarena APRN.FINANCE SPECIALIST documented in this encounterOhiohealth O'[facility]10-25-2022 Procedure note* Bernabe Cox MD - 02/12/2022 11:58 AM EDT [facility] OPERATIVE REPORT DATE : 02/12/2022 NAME: Fannie Avalos DATE : 1945 MR # : [id number] RADIATION TREATMENT START DATE AND TIME: 02/12/2022 RADIATION TREATMENT END DATE AND TIME: 02/12/2022 beam on time 22 minutes PREOPERATIVE DIAGNOSIS: Parietal falx meningioma left POSTOPERATIVE DIAGNOSIS: Same OPERATION:Application of Stereotactic Apparatus and Radiosurgery ANESTHESIA: Locally injected 1% Lidocaine with Intravenous Versed and Fentanyl SURGEON: Shawn Lemos RADIATION ONCOLOGIST:Jeffry Lind M.D. OPERATIVE INDICATIONS:The full Clinical history and indications for treatment were discussed with the pt and family in the initial Neurosurgery visit. The procedure and risk benefits and alternativeswere discussed and pt asked us to proceed. Pt was made aware that the treatment may be staged into several sessions depending on the disorder being treated. OPERATIVE PROCEDURE: The pt was admitted to the [facility] where IV access was obtained. The [place] Stereotactic Frame was placed with the use of IV sedationand local anesthetic. Theframe was placed without difficulty and appropriate stereotactic measurements were made. Pt then underwent stereotactic imaging. The scan images were then loaded in the planning computer and Adilia perkins Plan was used to perform stereotactic radiosurgery dose planning. The Lesion/s treated was as follows: Target 1 : Location : Left parietal fraction 3/3 Prescription : 7 Gamble to the 53% isodose line Number of Shots : 32 Target Volume : 7.057 cc Max. Linear Size : 2.83 cm Conformality Index : 1.121 Complexity : Simple Gradient Index : 2.726 Number of Fractions :3 of 3 After the usual senior quality manager procedures were performed stereotactic radiosurgery was deliveredwith the use of Gamma Knife. Following the completion of the last shot the stereotactic frame was removed and the pin sites were dressed. The Gamma Knife checklist and time outs were performed duringthe procedure. Pt was discharged from the [facility]ife Center in good condition without complications and postop follow up and care reviewed with pt and family. Bernabe Crawford M.D. documented in this encounterOhiohealth O'Blen[facility]10-25-2022 Instructions* Patient Instructions* Arely Byrnes RN - 02/12/2022 10:12 AM EDT Fannie Avalos [facility] Discharge Instructions - As with any surgery there are risks and potential side effects. There is a slight chance of developing brain swelling days or months after the Gamma Knife radiosurgery. If you experience nausea, vomiting, severe headache, visual changes, difficulty speaking, a seizure or any other symptom unusualfor you, contact your physician immediately or go to the nearest emergency room. These may or may not be symptoms of brain swelling. If you go to a physician or hospital other than the [facility] with any problem related to the Gamma Knife procedure, please notify the Gamma Knife nurse. - Keep the pin sites clean and dry. You may remove your head dressing when you arrive home. A smallamount of pink drainage on your pillow the first or second night after your radiosurgery is not unusual. The pin sites may be tender to the touch, as with any small wound, for 3-4 days. Infection of the pin sites is very rare. If a couple days post-radiosurgery you notice increased pain, redness, swelling, the pin sites feel hot to the touch, a cloudy or foul smelling drainage from the pin sites,or a fever of 101 degrees F or higher, contact your physician. - You may wash your hair/scalp 48 hours after your radiosurgery. This gives the pin sites a chance to begin to heal and not introduce any infection into the wounds. Avoid hair products, hair treatments or anything that may cause irritation until the pin sites have completely healed. - Avoid wearing tight bands or wigs over the pin sites for a few days. This gives the wounds a chance to heal in a dry, clean environment. - Keep your head elevated on a couple of pillows for one week. This will help lessen swelling at the pin sites and minimize pressure within your head. Occasionally patients will notice a small amountof swelling or slight bruising at the pin sites. This swelling may even spread to below your eyes. Applying ice packs to the affected area may help lessen the amount of swelling. This swelling usually lasts 3-4 days. If it lasts more than 4 days please contact your physician. - Rarely, patients experience pain the day after their radiosurgery. You may take non-aspirin pain medication, such as Ibuprofen or Tylenol, if you are having any discomfort. - Some patients are placed on steroids, such as Decadron following their radiosurgery. Certain conditions require these medications to lessen the chance of swelling around the treated area. When prescribed, these medications are extremely important in the period immediately following your Gamma Knife treatment and must be taken exactly as directed. Resume all other regular medications. - Taking good care of your general health is an important step to recovery. Continue to eat well and get plenty of rest. At the time of discharge, you will be given your follow-up appointments. If you have any questions or problems, you may call the Gamma Knife nurse at [phone]. -[facility]- [address], [place] [address] documented in this encounterOhiohealth O'Blen[facility]10-25-2022 History of Present illness Narrative* Arely Byrnes RN - 02/12/2022 7:09 AM EDT February 12, 2022 Fannie Avalos arrived ambulatory with for Gamma Knife Stereotactic Radiosurgery. ID verified with patient with two identifiers, name and birthdate. ID band applied. Arely Byrnes RN Allergies reviewed with patient: Yes Education/Learning Needs Assessment: Do you have any educational needs related to your visit today?NO Are there any limiting factors that affect learning (including physical limitations): None and Fatigue What method of teaching do you learn best from: Individual Instruction and Verbal Instruction Are there Ethnic/Cultural/Spiritual/Learning Issues Impacting Treatment:No Advanced Directive: Yes, requested copies for chart Fire Risk Assessment: 1. Procedure site or incision above the xiphoid? Yes = 1 2. Open O2 source (mask/cannula)? No = 0 3. Ignition source? Yes = 1 Total Score: 2 Fire Risk Safety Checklist Completed: Yes Glasses: Yes . Dentures:No Hearing Aid: No Review of Systems HENT: Negative. Eyes: Negative for eye problems. Respiratory: Negative for chest tightness, cough, shortness of breath and wheezing. Cardiovascular: Negative for chest pain, leg swelling and palpitations. Gastrointestinal: Negative for abdominal pain, blood in stool, constipation, diarrhea, nausea, rectal pain and vomiting. Genitourinary: Negative for bladder incontinence, difficulty urinating, frequency and hematuria. Musculoskeletal: Positive for back pain. Negative for flank pain and gait problem. Neurological: Positive for dizziness (when standing up) and headaches. Negative for extremity weakness, gait problem, light-headedness, numbness, seizures and speech difficulty. Psychiatric/Behavioral: Negative for confusion, depression and suicidal ideas. The patient is not nervous/anxious. All other systems reviewed and are negative. 02/12/22 0715 BP: 150/85 Pulse: 80 Resp: 19 Temp: 36.1 C (97 F) SpO2: 98% Weight: 61.7 kg (136 lb) Height: 160 cm (5' 3) Transportation home verified: yes, with . H&P done, dated: . 0720 Angiocath inserted in left ACF. Infusing well without evidence of infiltration.. Fannie positioned in sitting position for stereotactic frame application. UNIVERSAL PROTOCOL / SAFETY CHECKLIST INFORMED CONSENT Fannie Avalos Medical Record: [id number] Procedure:Gamma Knife Stereotactic Radiosurgery. The risks, benefits and anticipated outcomes of the procedure, the risks and benefits of the alternatives to the procedure and the roles and tasks of the personnel to be involved were discussed with the patient by Dr. Cox and the patient consents to the procedure and agrees to proceed. Arely Byrnes RN February 12, 2022 7:09 AM Dept of [facility] GAMMA KNIFE [place] UNIVERSAL PROTOCOL / SAFETY CHECKLIST Procedure to be Performed: Gamma knife head frame placement Sign In: A Moment of CARE was completed. Personnel directly involved with the procedure wore the appropriate PPE (Personal Protective Equipment). Special equipment: gamma knife head frame Patient/Surrogate Stated/Verified: PATIENT VERIFIED(optional for EMERGENT procedures): Patient name, Date of , Relevant allergies, and The intended procedure Time Out Communication: Intended patient and procedure match the source documents. Consent documented and matches the intended procedure. Relevant labs, photos, and/or imaging studies have been reviewed. Correct side/site marked and visible. Medications required for procedure verified. Fire risk assessed and interventions discussed. No implant(s) inserted. Sign Out: SIGN OUT (optional for EMERGENT procedures): No specimen collected. No instruments, equipment or retained foreign bodies applicable. Post-procedure follow-up management communicated and Plan of Care Visit completed when applicable. Arely Byrnes RN Procedure to be performed: Gamma Knife headframe placement. Pain Assessment--refer to paper chart Medications given and documented on procedural sedation paper chart per protocol 0748 Head frame and pinset used for frame placement by Dr. Bernabe Cox. Head Framing completed and tolerated well. Post frame scannin Patient taken to CT and MRI via wheelchair. 0910 CT and MRI completed. Fannie returned to Gamma Knife center waiting with Spouse. Nutrition offered. Fannie updated regarding treatment planning. 1000 Fannie assisted to treatment room. Gamma Knife SRS begun. 1028 Gamma Knife Stereotactic Radiosurgery completed. Fannie assisted to exam bed. 1030 Head frame removed. 1035 IV D/C'd and BandAid applied 1036 Four pinsite wounds cleansed with Betadine and antibiotic ointment applied, Band-Aids to 4 sites pin sites. Does Fannie have any pain post frame removal? No. Pain 0 on scale of 0-10 Fannie is able to move within pre-procedural abilities. Discharge Information: Written and verbal post-procedural discharge instructions given to Fannie with stated understanding. Reviewed pin site care of cleansing pin sites twice a day x3-4 days and application of antibiotic ointment to sites. To keep pin sites clean/dry, do not wash hair/scalp for 48 hours post Gamma Knife Radiosurgery. Keep head elevated on 2 pillows x1 week to minimize pin site swelling. May take Ibuprofen or Tylenol for discomfort. Discharge prescriptions eScripted to pharmacy of choice: Not Applicable. Local telephone number for Gamma Knife Center/Gamma Knife nurse, hours of availability given to Fannie and family/visitors. Patient belongings returned: Yes Post medication pain: No. Pain 0 on scale of 0-10 1045 Fannie left ambulatory with . Arely Byrnes RN documented in this encounterOhiohealth O'[facility]len[facility]10-25-2022 History of Present illness Narrative* Jeffry Lind MD - 02/12/2022 12:00 AM EDT FANNIE AVALOS [id number] 02/12/[address] [facility] Department of Radiation Oncology [facility] RADIATION ONCOLOGY GAMMA KNIFE TREATMENT PLANNING NOTE For reasons stated in the consult note, FANNIE AVALOS is a candidate for definitive radiosurgery. Based on review and interpretation of the relevant diagnostic studies together with the exam findings, FANNIE AVALOS was imaged on 02/12/2022. The imaging was fused into Gamma Plan and the target volume to be treated as well as the critical normal structure(s) were delineated. After participating in the treatment planning process with neurosurgery and medical physics, I approved the best plan to deliver my prescribed course of radiosurgery. The target tissue was planned using Gamma Plan to allow for the best isodose distribution and dosimetry/DVH. The dose to normal tissue and target tissue was confirmed upon review of the calculated dose. A completed summary of this plan dated 02/12/2022 incorporated herein by reference includes dose, isodose distribution and DVH. Electronically Signed Jeffry Lind M.D. / PRAVEENA 0:36 AM documented in this encounterOhiohealth O'Blen[facility]10-20-2022 Miscellaneous Notes* Telephone Encounter - Arely Byrnes RN - 02/07/2022 5:58 PM EDT Patient is scheduled for Gamma Knife Stereotactic Radiosurgery on 02/12/22 . Please arrive at the Gamma Knife Center at: 0645 Provided and reviewed Gamma Knife Radiosurgery booklet. Reviewed forms to be completed and brought with patient the day of surgery (Initial assessment, MRIScreening and medication sheet) Reviewed the Pre-Operative Instructions The [facility] Center is located at: [address] [place], [place] [address]sree [place], [place] [phone] IMPORTANT--Please inform nursing if you have an implanted pacemaker or defibrillator. The night before your procedure, do not eat or drink anything after midnight. Take your usual morning medications with sips of water. Exception--please hold ALL diabetic medications the morning of your procedure. If your medications upset your stomach, you may eat a light breakfast (ex. toast). If you need pain medication through the night or in the morning, please take them with sips of water and let your nurse know when you arrive. On the day of your procedure, you may wear comfortable clothes or your own pajamas. Please leave all jewelry and valuables at home. Only one visitor may accompany you to your procedure and masks must be worn throughout your visit. Please ignore any automated phone calls and text messages as the times are not correct. Parking is available directly in front of the Gamma Knife Center entrance. Additional parking is available in the upper level lot (physician's office area). If you have any questions or concerns, please call a Gamma Knife Patient Navigator at [phone]. Reviewed all above information with patient. Patient verbalized an understanding and was able to provide a correct teach back on all instructions. I verified with pt that her prep with prednisone andbenadryl for her MRI dye allergy was not called in. I sent notification to Dr. oCx's office that prescription needs to be called into pharmacy. documented in this encounterOhiohealth O'[facility]len[facility]10-13-2022 Miscellaneous Notes* Telephone Encounter - Philip Casas RN - 01/31/2022 3:18 PM EDT Patient had Gamma Knife Treatment on 01/29/2022. Post procedure call placed and spoke with patient The following items were reported: Patient states that she has had some mild discomfort at pin sites. Pin Sites: Reports that all 4 pin sites are free of infection. Reviewed signs and symptoms of infection and what to report. Reinforced Follow-Up Appointment Reinforced to call the Gamma Knife Center at [phone] with any questions or concerns. Verbal understanding given for all instructions. documented in this encounterOhiohealth O'[facility]len[facility]10-11-2022 Procedure note* Bernabe Cox MD - 01/29/2022 1:00 PM EDT [facility] OPERATIVE REPORT DATE : 01/29/2022 NAME: Fannie Avalos DATE : 1945 MR # : [id number] RADIATION TREATMENT START DATE AND TIME: 01/29/2022 RADIATION TREATMENT END DATE AND TIME: 01/29/2022 beam on time 23 minutes PREOPERATIVE DIAGNOSIS: Left parietal falx supratentorial meningioma POSTOPERATIVE DIAGNOSIS: Same OPERATION:Application of Stereotactic Apparatus and Radiosurgery ANESTHESIA: Locally injected 1% Lidocaine with Intravenous Versed and Fentanyl SURGEON: Shawn Lemos RADIATION ONCOLOGIST: Jeffry Lind MD OPERATIVE INDICATIONS:The full Clinical history and indications for treatment were discussed with the pt and family in the initial Neurosurgery visit. The procedure and risk benefits and alternativeswere discussed and pt asked us to proceed. Pt was made aware that the treatment may be staged into several sessions depending on the disorder being treated. OPERATIVE PROCEDURE: The pt was admitted to the [facility] where IV access was obtained. The LePure[employer]Fi Stereotactic Frame was placed with the use of IV sedationand local anesthetic. Theframe was placed without difficulty and appropriate stereotactic measurements were made. Pt then underwent stereotactic imaging. The scan images were then loaded in the planning computer and Nikoleell Salud perkins Plan was used to perform stereotactic radiosurgery dose planning. The Lesion/s treated was as follows: Target 1 : Location : L parietal falx Prescription : 7 Gamble to the 56% isodose line Number of Shots : 33 Target Volume : 7.096 cc Max. Linear Size : 2.79 cm Conformality Index : 1.16 Complexity : Simple Gradient Index : 2.714 Number of Fractions : 2 of 3 After the usual senior quality manager procedures were performed stereotactic radiosurgery was deliveredwith the use of Gamma Knife. Following the completion of the last shot the stereotactic frame was removed and the pin sites were dressed. The Gamma Knife checklist and time outs were performed duringthe procedure. Pt was discharged from the Gamma Knife Center in good condition without complications and postop follow up and care reviewed with pt and family. Bernabe Crawford M.D. documented in this encounterOhiohealth O'[facility]len[facility]10-11-2022 History of Present illness Narrative* DONNY Paredes) - 01/29/2022 8:15 AM EDT Radiology Service Progress Note DATE OF SERVICE: January 29, 2022 TIME: 8:34 AM PATIENT IDENTITY VERIFICATION COMPLETED USING TWO (2) STANDARD IDENTIFIERS: Name and Date of confirmed by patient verbally. FALL SCREENING: Has the patient had 2 falls in the last year or 1 fall with injury or currently using an Ambulatory Assistive Device (Walker, Cane, Wheelchair, Crutches, etc.)? No PATIENT GENDER DATA: Female. status: : No status: NO. PATIENT RELEVANT IMPLANT DATA REVIEWED: Yes ALLERGIES: Reviewed and unchanged CONTRAST ALLERGY: YES pt took prep. EXAM: MRI - CONTRAST TYPE: GROUP II PERIPHERAL IV DATA: Ambulatory: A peripheral IV was started in the Left antecubital site with a Angio cath: 22 gauge. RADIOLOGY DEPARTMENT: MR; Exam(s) Completed: Head: gamma knife tx protocol SIGNATURE: DONNY Paredes) PATIENT NAME: Fannie Avalos DATE: January 29, 2022 TIME: 8:34 AM documented in this encounterCleveland [id number] History of Present illness Narrative* Jeffry Lind MD - 01/29/2022 12:00 AM EDT BAILEY, FANNIE S. [id number] 01/29/[address] [facility] Gamma Knife Department of Radiation Oncology RADIATION ONCOLOGY - COMPLETION NOTE DATE OF TREATMENT: January 29, 2022 UNIT: Gamma Knife AREA TREATED: L parasag DISEASE: Meningioma DELIVERED DOSE: 700.0 cGy was prescribed to the 56% isodose line, which covered 99.864% of the target. The plan utilized 33 shots using 8 mm, 4 mm, composite sectors. Target volume = 7.096 cc. Maximum dose = 1250.0 cGy. Maximum diameter = 2.79 cm. MD/PD = 1.786. PIV/TV = 1.161. Gradient Index = 2.714. Number of Fractions = 2. 1 separate treatment plan was devised. Authorized user was present during the entire treatment. ELAPSED TREATMENT TIME: 21 minutes (one session). TOLERANCE: Excellent. RESPONSE: To be evaluated. REMARKS: Patient will return in 2 weeks to complete 3/3 fractions. Prescription was 7Gy x3fx. Authorized user was present during the entire treatment. The total treatment time was within 10% of the written directive. Survivorship care planning was discussed with the patient. Staff Physician Jeffry Lind M.D./jd 21:07 PM Electronically Signed cc: Dr. Bernabe Tsang documented in this encounterOhiohealth O'Bleness [facility]10-11-2022 History of Present illness Narrative* Jeffry Lind MD - 01/29/2022 12:00 AM EDT FANNIE AVALOS [id number] 01/29/[address] [facility] Department of Radiation Oncology [facility] RADIATION ONCOLOGY GAMMA KNIFE TREATMENT PLANNING NOTE For reasons stated in the consult note, FANNIE AVALOS is a candidate for definitive palliative radiosurgery. Based on review and interpretation of the relevant diagnostic studies together with the exam findings, FANNIE AVALOS was imaged on 01/29/2022. The imaging was fused into Gamma Plan and thetarget volume to be treated as well as the critical normal structure(s) were delineated. After participating in the treatment planning process with neurosurgery and medical physics, I approved the best plan to deliver my prescribed course of radiosurgery. The target tissue was planned using Gamma Plan to allow for the best isodose distribution and dosimetry/DVH. The dose to normal tissue and target tissue was confirmed upon review of the calculated dose. A completed summary of this plan dated 01/29/2022 incorporated herein by reference includes dose, isodose distribution and DVH. Electronically Signed Jeffry Lind M.D. / PRAVEENA 2:41 PM documented in this encounterOhiohealth O'Bleness Hospital10-06-2022 Miscellaneous Notes* Telephone Encounter - Kristan Mckeon RN - 01/24/2022 6:01 PM EDT Patient is scheduled for Gamma Knife Stereotactic Radiosurgery on 01/29/2022 . [facility]: 0700 Provided and reviewed Gamma Knife Radiosurgery booklet. Reviewed forms to be completed and brought with patient the day of surgery (Initial assessment, MRIScreening and medication sheet) Reviewed the Pre-Operative Instructions The [facility] is located at: [address] [place] [address], [place] [address] IMPORTANT--Please inform nursing if you have an implanted pacemaker or defibrillator. The night before your procedure, do not eat or drink anything after midnight. Take your usual morning medications with sips of water. Exception--please hold ALL diabetic medications the morning of your procedure. If your medications upset your stomach, you may eat a light breakfast (ex. toast). If you need pain medication through the night or in the morning, please take them with sips of water and let your nurse know when you arrive. On the day of your procedure, you may wear comfortable clothes or your own pajamas. Please leave all jewelry and valuables at home. You may bring your own personal music CD's to listen to during your procedure. Parking is available directly in front of the Gamma [facility]ife Center entrance. Additional parking is available in the upper level lot (physician's office area). If you have any questions or concerns, please call a Gamma Knife Patient Navigator at [phone]. Left a message with the above info. documented in this encounterOhiohealth O'Bleness Hospital10-03-2022 History of Present illness Narrative* Gavin Tran MD - 01/21/2022 12:22 PM EDT This note was created using [employer]. Saul Avalos is a 76 year old female. She was undergoing gamma knife therapy when she was notedto have bradycardic episodes. She was setting off the alarm. She had no symptoms whatsoever. She was referred to the ER where cardiac work up was negative, other than PACs. She was on chronic beta loida for palpitations. Review of Systems Constitutional: Negative. Respiratory: Negative. Cardiovascular: Negative. Neurological: Negative. ACTIVE PROBLEM LIST Hyperlipidemia Family History of Malignant Neoplasm of Breast Benign Neoplasm of Colon Allergic Rhinitis Palpitations Ibs (Irritable Bowel Syndrome) Osteopenia Benign Meningioma of Brain (Hcc) Carotid Artery Stenosis Incontinence of Feces Benign Neoplasm of Meninges (Hcc) Acute Left-Sided Thoracic Back Pain Left Achilles Tendinitis Current Outpatient Medications Medication Sig diphenhydrAMINE (BENADRYL) 25 mg capsule Take 2 capsules by mouth as directed. Take 50 mg by mouth 1 hr prior to MRI on 01/29 predniSONE (DELTASONE) 50 mg Take 1 tablet by mouth as directed. Take one tablet 13 hours prior to MRI, take one tablet 7 hours prior to MRI, take one tablet 1 hour prior to MRI on 01/29/2022 sodium chloride 0.9 %, flush, (BD POSIFLUSH) syringe Inject 2-10 mL intravenously as needed. atenolol (TENORMIN) 25 mg tablet Take 1 tablet by mouth once daily. ibuprofen (MOTRIN) 600 mg tablet Take 1 tablet by mouth every 8 hours as needed for pain. iv contrast (will be provided with radiology test) MRI Brain Inject, intravenously, once for 1 dose.No IV access, insert saline lock prior to beginning of sedation, infusion, injection of imaging exam.Discontinue saline lock post exam. If Pt. has a central line or IVAD, may access for administration according to line specific nursing protocol.Once exam is complete flush line and de-access according to line specific nursing protocol in the MR contrast administration guidelines link atorvastatin (LIPITOR) 40 mg tablet TAKE 1 TABLET EVERY DAY AT BEDTIME FOR CHOLESTEROL Cholecalciferol, Vitamin D3, 25 mcg (1,000 unit) cap Take 1 capsule by mouth once daily. wheat dextrin (BENEFIBER CLEAR SF, DEXTRIN, ORAL) Take 1 teaspoonful by mouth three times daily. VITAMIN E 200 UNIT CAP Take one(1) tablet daily. Perry-3 Fatty Acids (FISH OIL) ORAL Cap Take one(1) capsule daily. MULTIVITAMIN TAB Take one(1) tablet daily. ASPIRIN 81 MG TAB Take one (1) tablet daily . CALCIUM + D 600 MG-200 UNIT TAB Take one(1) tablet daily. No current facility-administered medications for this visit. Objective BP 135/75 Pulse 61 Temp 36.1 C (96.9 F) Resp 16 Wt 62.1 kg (137 lb) BMI 24.27 kg/m Physical Exam Constitutional: Appearance: Normal appearance. She is not diaphoretic. Cardiovascular: Rate and Rhythm: Normal rate and regular rhythm. Heart sounds: S1 normal and S2 normal. No murmur heard. No gallop. Pulmonary: Breath sounds: Normal breath sounds. Musculoskeletal: Right lower leg: No edema. Left lower leg: No edema. Neurological: General: No focal deficit present. Mental Status: She is alert. EKG NSR, LAD, LBBB, no change from 2010 EKG. Assessment and Plan 1. Irregular heart rhythm - ICD9: 427.9, ICD10: I49.9 (primary diagnosis) At this point, she's had evaluation at the ER. I doubt a holter or Zio will be beneficial as she had no symptoms. We agreed to observation only. She will message me if this continued to be an issue. 2. Need for influenza vaccination - ICD9: V04.81, ICD10: Z23 - INFLUENZA SEASONAL QUADRIVALENT HIGH DOSE AGE 65+ Gavin Tran MD documented in this encounterOhiohealth O'Bleness Hospital09-29-2022 Miscellaneous Notes* Telephone Encounter - Bebe Pozo RN - 01/17/2022 11:59 AM EDT Patient needing premedicated prior to MRI due to dye allergy. Spoke with patient and let her know we would call this in for her to take prior to GKRS on 01/29/2022. She is aware how to take as she took the medications prior to last MRI. Confirmed pharmacy with patient. She was appreciative of call. Refill(s) Requested: Requested Prescriptions No prescriptions requested or ordered in this encounter ALLERGIES Allergen Reactions Bactrim [Sulfametho* GI Upset nausea Clindamycin Hcl GI Upset Flagyl [Metronidazo* GI Upset Gadolinium-Containi* Hives Gadolinium/Gadavist Trimethoprim Vomiting Levofloxacin GI Upset (home) [phone] (cell) Last Office Visit Date: 01/15/2022 Last [facility] Visit: Visit date not found Future Appointment: Visit date not found The patients preferred pharmacy has been captured for this encounter? yes Request is for script(s) to be escript to pharmacy. Bebe Pozo RN documented in this encounterOhiohealth O'Bleness Hospital09-29-2022 Miscellaneous Notes* Telephone Encounter - Kristan Mckeon RN - 01/17/2022 9:47 AM EDT Patient had Gamma Knife Treatment on 01/15/2022. Post procedure call placed and spoke with patient The following items were reported: Patient states that she has had some mild discomfort at pin sites. Pin Sites: Reports that all 4 pin sites are free of infection. Reviewed signs and symptoms of infection and what to report. Pt. States right eyelid has swelling,advised to keep head elevated as much as possible and use coldcompresses for comfort. Reassured this will subside. Pt. Has an appointment with her PCP today to discuss irregular heart issues. Reinforced Follow-Up Appointment Reinforced to call the Gamma [facility] Center at [phone] with any questions or concerns. Verbal understanding given for all instructions. documented in this encounterOhiohealth O'Bleness Hospital09-28-2022 Miscellaneous Notes* Telephone Encounter - Diamond Overton RN - 01/16/2022 10:26 AM EDT Patient calls and notified that she should should schedule an ER follow up visit with provider to discuss. Patient scheduled appointment with PCP on 01/17/2022. Diamond Overton RN * Telephone Encounter - Gela Mortensen - 01/15/2022 5:00 PM EDT Pt had procedure and after procedure do to vitals she was sent to ER. Pt was in ER in [place]. Stated they wanted her to check about getting a Holter monitor if that would be what Dr. Tran would want. She asked for someone to let her. know. documented in this encounterOhiohealth O'Bleness Hospital09-27-2022 Procedure note* Bernabe Cox MD - 01/15/2022 3:15 PM EDT [facility] OPERATIVE REPORT DATE : 01/15/2022 NAME: Fannie Avalos DATE : 1945 MR # : [id number] RADIATION TREATMENT START DATE AND TIME: 01/15/2022 RADIATION TREATMENT END DATE AND TIME: 01/15/2022 beam on time 22 minutes PREOPERATIVE DIAGNOSIS: Parietal falx meningioma POSTOPERATIVE DIAGNOSIS: Same OPERATION:Application of Stereotactic Apparatus and Radiosurgery ANESTHESIA: Locally injected 1% Lidocaine with Intravenous Versed and Fentanyl SURGEON: Shawn Lemos RADIATION ONCOLOGIST: Jeffry Lind MD OPERATIVE INDICATIONS:The full Clinical history and indications for treatment were discussed with the pt and family in the initial Neurosurgery visit. The procedure and risk benefits and alternativeswere discussed and pt asked us to proceed. Pt was made aware that the treatment may be staged into several sessions depending on the disorder being treated. OPERATIVE PROCEDURE: The pt was admitted to the [facility] where IV access was obtained. The [place] Stereotactic Frame was placed with the use of IV sedationand local anesthetic. Theframe was placed without difficulty and appropriate stereotactic measurements were made. Pt then underwent stereotactic imaging. The scan images were then loaded in the planning computer and Adilia perkins Plan was used to perform stereotactic radiosurgery dose planning. Based on the size and volumeof this lesion we elected to fractionated into 3 fractions consisting of 7 Gamble for each fraction. Target 1 : Location : Left parasagittal parietal falx meningioma Prescription : 7 Gamble to the 52% isodose line Number of Shots : 39 Target Volume : 7.134 cc Max. Linear Size : 2.8 cm Conformality Index : 1.136 Complexity : Simple Gradient Index : 2.66 Number of Fractions : 1 of 3 After the usual senior quality manager procedures were performed stereotactic radiosurgery was deliveredwith the use of Gamma Knife. Following the completion of the last shot the stereotactic frame was removed and the pin sites were dressed. The patient tolerated the procedure well however it was notedthat she was having episodes of bradycardia for which we recommended that she go to the emergency room for to be evaluated with an EKG and determine if she requires any treatment as she has had history of atrial fibrillation before. She did not have any symptoms during the periods of bradycardia and she did not have any drop in her blood pressure. The Gamma Knife checklist and time outs were perfo rmed during the procedure. Pt was discharged from the [facility] Center in stable condition in thecompany of her and they were instructed to go to the emergency room and they chose to go [facility] emergency room for her cardiac status check. Bernabe Crawford M.D. documented in this encounterOhiohealth O'Bleness Hospital09-27-2022 Miscellaneous Notes* Telephone Encounter - Arely Sims RN - 01/15/2022 1:40 PM EDT Spoke to [facility] ED to notify them pt is post gamma knife procedure. Heart rate irregular. Heart rate 28-115bpm. Pt asymptomatic. Last BP 127/55, HR 45, RR 17, 100%RA. Pt stated she took atenolol this morning. Since pt was asymptomatic, Dr. Cox gave pt the option to get evaluated in an ED or to follow up with her PCP. Pt decided to head to [place] ED to get evaluated. documented in this encounterOhiohealth O'Bleness Hospital09-27-2022 Instructions* Patient Instructions* Kristan Mckeon RN - 01/15/2022 12:25 PM EDT Fannie Avalos [facility] Discharge Instructions - As with any surgery there are risks and potential side effects. There is a slight chance of developing brain swelling days or months after the Gamma Knife radiosurgery. If you experience nausea, vomiting, severe headache, visual changes, difficulty speaking, a seizure or any other symptom unusualfor you, contact your physician immediately or go to the nearest emergency room. These may or may not be symptoms of brain swelling. If you go to a physician or hospital other than the [facility] with any problem related to the Gamma Knife procedure, please notify the Gamma Knife nurse. - Keep the pin sites clean and dry. You may remove your head dressing when you arrive home. A smallamount of pink drainage on your pillow the first or second night after your radiosurgery is not unusual. The pin sites may be tender to the touch, as with any small wound, for 3-4 days. Infection of the pin sites is very rare. If a couple days post-radiosurgery you notice increased pain, redness, swelling, the pin sites feel hot to the touch, a cloudy or foul smelling drainage from the pin sites,or a fever of 101 degrees F or higher, contact your physician. - You may wash your hair/scalp 48 hours after your radiosurgery. This gives the pin sites a chance to begin to heal and not introduce any infection into the wounds. Avoid hair products, hair treatments or anything that may cause irritation until the pin sites have completely healed. - Avoid wearing tight bands or wigs over the pin sites for a few days. This gives the wounds a chance to heal in a dry, clean environment. - Keep your head elevated on a couple of pillows for one week. This will help lessen swelling at the pin sites and minimize pressure within your head. Occasionally patients will notice a small amountof swelling or slight bruising at the pin sites. This swelling may even spread to below your eyes. Applying ice packs to the affected area may help lessen the amount of swelling. This swelling usually lasts 3-4 days. If it lasts more than 4 days please contact your physician. - Rarely, patients experience pain the day after their radiosurgery. You may take non-aspirin pain medication, such as Ibuprofen or Tylenol, if you are having any discomfort. - Some patients are placed on steroids, such as Decadron following their radiosurgery. Certain conditions require these medications to lessen the chance of swelling around the treated area. When prescribed, these medications are extremely important in the period immediately following your Gamma Knife treatment and must be taken exactly as directed. Resume all other regular medications. - Taking good care of your general health is an important step to recovery. Continue to eat well and get plenty of rest. At the time of discharge, you will be given your follow-up appointments. If you have any questions or problems, you may call the Gamma Knife nurse at [phone]. -[facility] [place] [facility] [address] , [place] [address] documented in this encounterOhiohealth O'Bleness Hospital09-27-2022 History of Present illness Narrative* Kristan Mckeon RN - 01/15/2022 8:26 AM EDT January 15, 2022 Fannie Avalos arrived ambulatory with for Gamma Knife Stereotactic Radiosurgery. ID verified with patient with two identifiers, name and birthdate. ID band applied. Arely Sims RN Allergies reviewed with patient: Yes Education/Learning Needs Assessment: Do you have any educational needs related to your visit today?NO Are there any limiting factors that affect learning (including physical limitations): None What method of teaching do you learn best from: Individual Instruction and Verbal Instruction Are there Ethnic/Cultural/Spiritual/Learning Issues Impacting Treatment:No Advanced Directive: Yes, requested copies for chart Fire Risk Assessment: 1. Procedure site or incision above the xiphoid? Yes = 1 2. Open O2 source (mask/cannula)? No = 0 3. Ignition source? Yes = 1 Total Score: 2 Fire Risk Safety Checklist Completed: Yes Glasses: Yes . Dentures:No Hearing Aid: No Review of Systems HENT: Negative. Echoing in left ear and pulsations in the right ear but not hearing loss Eyes: Negative for eye problems. Respiratory: Negative for chest tightness, cough, shortness of breath and wheezing. Cardiovascular: Negative for chest pain, leg swelling and palpitations. Gastrointestinal: Negative for abdominal pain, blood in stool, constipation, diarrhea, nausea, rectal pain and vomiting. Genitourinary: Negative for bladder incontinence, difficulty urinating, frequency and hematuria. Musculoskeletal: Negative for back pain, flank pain and gait problem. Neurological: Positive for headaches (right sided). Negative for dizziness, extremity weakness, gait problem, light-headedness, numbness, seizures and speech difficulty. Psychiatric/Behavioral: Negative for confusion, depression and suicidal ideas. The patient is not nervous/anxious. All other systems reviewed and are negative. 01/15/22 0850 BP: 134/64 Pulse: 64 Resp: 18 Temp: 36.7 C (98.1 F) SpO2: 97% Weight: 60.8 kg (134 lb) Height: 160 cm (5' 3) Transportation home verified: yes, with . H&P done, dated: . 0915 Angiocath inserted in left hand. Infusing well without evidence of infiltration.. Fannie positioned in sitting position for stereotactic frame application. UNIVERSAL PROTOCOL / SAFETY CHECKLIST INFORMED CONSENT Fannie Avalos Medical Record: [id number] Procedure:Gamma Knife Stereotactic Radiosurgery. The risks, benefits and anticipated outcomes of the procedure, the risks and benefits of the alternatives to the procedure and the roles and tasks of the personnel to be involved were discussed with the patient by Dr. Cox and the patient consents to the procedure and agrees to proceed. Arely Sims RN January 15, 2022 8:26 AM Dept of [facility] GAMMA KNIFE [place] UNIVERSAL PROTOCOL / SAFETY CHECKLIST Procedure to be Performed: Gamma Knife head frame placement Sign In: A Moment of CARE was completed. Personnel directly involved with the procedure wore the appropriate PPE (Personal Protective Equipment). Special equipment: gamma knife head frame Patient/Surrogate Stated/Verified: PATIENT VERIFIED(optional for EMERGENT procedures): Patient name, Date of , Relevant allergies, and The intended procedure Time Out Communication: Intended patient and procedure match the source documents. Consent documented and matches the intended procedure. Relevant labs, photos, and/or imaging studies have been reviewed. Correct side/site marked and visible. Medications required for procedure verified. Fire risk assessed and interventions discussed. No implant(s) inserted. Sign Out: SIGN OUT (optional for EMERGENT procedures): No specimen collected. No instruments, equipment or retained foreign bodies applicable. Post-procedure follow-up management communicated and Plan of Care Visit completed when applicable. Arely Sims RN Procedure to be performed: Gamma Knife headframe placement. Pain Assessment--refer to paper chart Medications given and documented on procedural sedation paper chart per protocol 0936 Head frame and pinset used for frame placement by Dr. Bernabe Cox. Head Framing completed and tolerated well. Post frame scannin Patient taken to CT and MRI via wheelchair. 1015 CT and MRI completed. Fannie returned to Gamma Knife center waiting with Spouse. Nutrition offered. Fannie updated regarding treatment planning. 1150 Fannie assisted to treatment room. Gamma Knife SRS begun. 1228 Gamma Knife Stereotactic Radiosurgery completed. Fannie assisted to exam bed. 1230 notified of pts irregular heartrate and ordered monitoring for 30 more minutes and to be seen by PCP or emergency department. Pt remains without any complaints. 1240 Head frame removed. 1300 left hand IV left in for possible use at [facility] emergency department. 1245 Four pinsite wounds cleansed with Betadine and antibiotic ointment applied, Band-Aids to Frontal area pin sites. Does Fannie have any pain post frame removal? No. Pain 0 on scale of 0-10 Fannie is able to move within pre-procedural abilities. Discharge Information: Written and verbal post-procedural discharge instructions given to Fannie with stated understanding. Reviewed pin site care of cleansing pin sites twice a day x3-4 days and application of antibiotic ointment to sites. To keep pin sites clean/dry, do not wash hair/scalp for 48 hours post Gamma Knife Radiosurgery. Keep head elevated on 2 pillows x1 week to minimize pin site swelling. May take Ibuprofen or Tylenol for discomfort. Discharge prescriptions eScripted to pharmacy of choice: Not Applicable. Local telephone number for Gamma Knife Center/Gamma Knife nurse, hours of availability given to Fannie and family/visitors. Patient belongings returned: Yes Post medication pain: No. Pain 0 on scale of 0-10 1320 Fannie left ambulatory with . Report called to [place] Emergency Department. Pt. Wanted to go to [place] to be evaluated for irreg heart rate. Arely Sims, RN documented in this encounterOhiohealth O'Bleness Hospital09-27-2022 History of Present illness Narrative* Jeffry iLnd MD - 01/15/2022 12:00 AM EDT FANNIE AVALOS [id number] 01/15/[address] [facility] Department of Radiation Oncology [facility] RADIATION ONCOLOGY GAMMA KNIFE TREATMENT PLANNING NOTE For reasons stated in the consult note, FANNIE AVALOS is a candidate for definitive radiosurgery. Based on review and interpretation of the relevant diagnostic studies together with the exam findings, FANNIE AVALOS was imaged on 01/15/2022. The imaging was fused into Gamma Plan and the target volume to be treated as well as the critical normal structure(s) were delineated. After participating in the treatment planning process with neurosurgery and medical physics, I approved the best plan to deliver my prescribed course of radiosurgery. The target tissue was planned using Gamma Plan to allow for the best isodose distribution and dosimetry/DVH. The dose to normal tissue and target tissue was confirmed upon review of the calculated dose. A completed summary of this plan dated 01/15/2022 incorporated herein by reference includes dose, isodose distribution and DVH. Electronically Signed Jeffry Lind M.D. / PRAVEENA 29:43 AM documented in this encounterOhiohealth O'Bleness Hospital09-27-2022 History of Present illness Narrative* Jeffry Lind MD - 01/15/2022 12:00 AM EDT BAILEYFANNIE [id number] 01/15/[address] [facility] Gamma Knife Department of Radiation Oncology RADIATION ONCOLOGY - COMPLETION NOTE DATE OF TREATMENT: January 15, 2022 UNIT: Gamma Knife AREA TREATED: L parasag DISEASE: Meningioma DELIVERED DOSE: 700.0 cGy was prescribed to the 52% isodose line, which covered 100% of the target.The plan utilized 39 shots using 8 mm, 4 mm, composite sectors, with some of the sectors blocked. Target volume = 7.134 cc. Maximum dose = 1350.0 cGy. Maximum diameter = 2.8 cm. MD/PD = 1.929. PIV/TV= 1.136. Gradient Index = 2.66. Number of Fractions = 1. 1 separate treatment plan was devised. Authorized user was present during the entire treatment. ELAPSED TREATMENT TIME: 26 minutes (one session). TOLERANCE: Excellent. RESPONSE: To be evaluated. REMARKS: Given the large volume/size of the lesions, I favor treating with fractionated SRS to 21Gyin 3 fractions, with each fraction delivered 2 weeks apart. Today was the first fraction. She had multiple episodes of asymptomatic bradycardia during frame placement and SRS delivery so we have recommended that she undergo cardiac evaluation either in the ER or with a PCP/sales service route manager. Denied dyspnea or chest discomfort. Authorized user was present during the entire treatment. The total treatment time was within 10% of the written directive. Survivorship care planning was discussed with the patient. Staff Physician Jeffry Lind M.D./jd 2:42 PM Electronically Signed cc: Dr. Bernabe Tsang documented in this encounterOhiohealth O[facility]09-[facility]22 Miscellaneous Notes* Telephone Encounter - Arely Sims RN - 01/10/2022 4:33 PM EDT Patient is scheduled for [facility] on 01/15/22 . Please arrive at the [facility] at: 0800 Provided and reviewed [facility] booklet. Reviewed forms to be completed and brought with patient the day of surgery (Initial assessment, MRIScreening and medication sheet) Reviewed the Pre-Operative Instructions The [facility] is located at: [address] [place] [address]-[address], [place] [address] IMPORTANT--Please inform nursing if you have an implanted pacemaker or defibrillator. The night before your procedure, do not eat or drink anything after midnight. Take your usual morning medications with sips of water. Exception--please hold ALL diabetic medications the morning of your procedure. If your medications upset your stomach, you may eat a light breakfast (ex. toast). If you need pain medication through the night or in the morning, please take them with sips of water and let your nurse know when you arrive. On the day of your procedure, you may wear comfortable clothes or your own pajamas. Please leave all jewelry and valuables at home. Only one visitor may accompany you to your procedure and masks must be worn throughout your visit. Please ignore any automated phone calls and text messages as the times are not correct. Parking is available directly in front of the [facility] entrance. Additional parking is available in the upper level lot (physician's office area). If you have any questions or concerns, please call a [facility] Patient Navigator at [phone]. Reviewed all above information with patient. Patient verbalized an understanding and was able to provide a correct teach back on all instructions. documented in this encounterOhiohealth O'[facility]len[facility]2022 History of Present illness Narrative* Adam Greene, PT - 12/25/2021 12:33 PM EDT Episode Visit Count: 5 Therapist That Will Oversee The Plan Of Care: Adam Greene Start of Care Date: 11/26/21 Onset Date: 10/15/21 (Heel pain) Plan of Care Certification Date: 12/25/21 Next Certification Due Date: 01/29/22 Patient Identified by Name and Date of : Yes REHABILITATION AND SPORTS THERAPY PHYSICAL THERAPY PROGRESS REPORT PLAN OF CARE UPDATE: Assessment: Fannie Avalos demonstrates difficulty with walking and improvements in walking. She hasprogressed toward goals. Patient continues to present with impairments in gait and tissue tenderness that interfere with walking . Current prognosis is Good due to: current objective clinical presen tation . She will benefit from continued skilled therapy services to meet the updated goals for this plan of care as noted below. Goals updated 12/25/2021 Goals for Episode of Care: created on 11/26/21 through 02/04/22 Pt will report an overall improvement in L heel/ankle pain by 80% in 10 weeks or less - Progressing, will continue [place] in home exercise program. - Met so far Perform standing without pain. - MET Normal gait. - Met at times, will continue Patient Goals: To decrease ankle pain. Patient Goals: To decrease ankle pain. Planned Interventions, Frequency, and Duration: 1x/month, One month Total Number of Visits Planned: 1 Patient to be seen for Therapeutic exercise ([id number]);Neuromuscular re-education ([id number]);Manual therapy ([id number]);Self-intermediate management ([id number]);Gait Training ([id number]);Patient/Family/Caregiver Education PLAN FOR NEXT VISIT: Modify HEP as needed. SUBJECTIVE: Patient Reason for Visit: Limping again. May have over done it with the exercise. Pt states she feels she is 75% improved overall so far. Patient Goals: To decrease ankle pain. Functional Limitations: walking Prior Level of Function: Independent without limitations Intake Information: Prescription present Pain: Pain Pain Level: 3 Pain Location: Heel - Left Post Treatment Pain Post Treatment Pain Location: Heel - Left PROMIS Scales T-scores: mean of general population = 50. 5 points is clinically meaningfully difference Percentiles provide an indication of how the patient's score ranks in relation to the general population. Higher percentile rankings indicate better function/quality of life. 50th percentile is the average of the general population and indicates half of respondents had a worse score. T-scores: mean of general population = 50. 5 points is clinically meaningfully difference Percentiles provide an indication of how the patient's score ranks in relation to the general population. Higher percentile rankings indicate better function/quality of life. 50th percentile is the average of the general population and indicates half of respondents had a worse score. OBJECTIVE MEASURES WITH LEVEL OF FUNCTION: Lumbar Spine AROM Lumbar Flexion: Normal Lumbar Extension: Normal Lumbar R Side-Bend: Normal Lumbar L Side-Bend: Normal Lumbar R Rotation: Normal Lumbar L Rotation: Normal LE AROM R LE AROM: WNL L LE AROM: WNL LE Strength R Hip ABduction: 4-/5 L Hip Extension: 4/5 L Hip Flexion (L2): 4+/5 L Hip ABduction: 4-/5 Gait Gait Observation: Antalgic gait LLE (Improves to almost no observable limp post manual therapy) TREATMENT: Therapeutic Exercise: 1: All objective measures taken this session 2: Discussed modification to the HEP 3: BLE heel raise 30-40% LLE x 10 reps Skilled Intervention: Patient was educated in proper exercise technique and purpose for exercises. Provided written instruction for home exercise program to facilitate proper performance and compliance. Correct performance of therapeutic exercises was facilitated with verbal and visual cuing. Billing Therapeutic Exercise Treatment Minutes: 22 Manual TherapyTreatment Minutes: 8 Total Treatment Time Minutes (timed/untimed): 30 Adam Greene PT documented in this encounterOhiohealth O'[facility]08-23-2022 History of Present illness Narrative* Adam Greene PT - 12/11/2021 12:41 PM EDT Episode Visit Count: 3 Therapist That Will Oversee The Plan Of Care: Adam Greene Start of Care Date: 11/26/21 Onset Date: 10/15/21 (Heel pain) Plan of Care Certification Date: 11/26/21 Next Certification Due Date: 12/31/21 Patient Identified by Name and Date of : Yes REHABILITATION AND SPORTS THERAPY PHYSICAL THERAPY TREATMENT NOTE ASSESSMENT: Fannie Avalos tolerated the session with decreased symptoms. She demonstrated improvements in no pain with walking post therapeutic exercise and manual therapy. The patient will continue to benefit from ongoing skilled physical therapy to progress toward set goals. PLAN FOR NEXT VISIT: IASTM over L achilles tendon. Possible trial WB heel raises SUBJECTIVE: Patient Reason for Visit: The pain is getting better. PF off the ground is the painful part. Has been doing the quad stretch laying on the side. Pain: Pain Pain Location: Heel - Left OBJECTIVE MEASURES WITH LEVEL OF FUNCTION: Familiar pain caused with weightbearing heel raises TREATMENT: Therapeutic Exercise: 1: Side-lying Quad stretch 2 x 30 sec with strap 2: L S/L hip abd 2 x 10 reps 3: Seated PF against BTB x 2 tails 3 x 20 reps 4: Ankle Inversion 3 x 10 reps in long-sitting Skilled Intervention: Patient was educated in proper exercise technique and purpose for exercises. Provided written instruction for home exercise program to facilitate proper performance and compliance. Correct performance of therapeutic exercises was facilitated with verbal and visual cuing. Manual Therapy: 1: IASTM boomerang x 10 min with pt in prone Skilled Intervention: Manual skills to improve joint mobility, ROM, and decrease pain. Utilized anatomy knowledge of the therapist, and assessment of patient's response to intervention. Billing Therapeutic Exercise Treatment Minutes: 32 Manual TherapyTreatment Minutes: 10 Total Treatment Time Minutes (timed/untimed): 42 Adam Greene PT documented in this encounterOhiohealth O'[facility]08-16-2022 History of Present illness Narrative* Adam Greene PT - 12/04/2021 12:30 PM EDT Episode Visit Count: 2 Therapist That Will Oversee The Plan Of Care: Adam Greene Start of Care Date: 11/26/21 Onset Date: 10/15/21 (Heel pain) Plan of Care Certification Date: 11/26/21 Next Certification Due Date: 12/31/21 Patient Identified by Name and Date of : Yes REHABILITATION AND SPORTS THERAPY PHYSICAL THERAPY TREATMENT NOTE ASSESSMENT: Fannie Avalos tolerated the session with no issues. She demonstrated difficulty withHip abd exercise due to hip abd weakness and pt wanting to substitute other muscles to assist hip abd. The patient will continue to benefit from ongoing skilled physical therapy to progress toward set goals. PLAN FOR NEXT VISIT: Progress hip abd strengthening as tolerated. Progress loading of the L gastroc. SUBJECTIVE: Patient Reason for Visit: Pt states she is feeling good. Pt states the back is feeling much better. The foot is coming along but today it is sore. Pain: Pain Pain Level: 7 (When it is there) Pain Location: Heel - Left Description: Sore OBJECTIVE MEASURES WITH LEVEL OF FUNCTION: LE Flexibility Flexibility: Quadriceps Flexibility R Quadriceps Flexibility: Mod tightness (Gretta's position) L Quadriceps Flexibility: Mod tightness (Gretta's position) LE Strength R Hip ABduction: 3-/5 L Hip ABduction: 3/5 TREATMENT: Therapeutic Exercise: 1: Seated PF L GTB x 1 tail x 15 2: Seated PF L GTB x 2 tail x 15 (Too challengign as pt cannot achieve full PF ROM due to weakness) 3: Seated PF against BTB 3 x 15 reps 4: L hip abd in S/L 2 x 8 reps 5: R hip abd in S/L 2 x 8 reps 6: Prone quad stretch with strap 2 x 30 sec each leg Skilled Intervention: Patient was educated in proper exercise technique and purpose for exercises. Provided written instruction for home exercise program to facilitate proper performance and compliance. Correct performance of therapeutic exercises was facilitated with verbal and visual cuing. Billing Therapeutic Exercise Treatment Minutes: 45 Total Treatment Time Minutes (timed/untimed): 45 Adam Greene PT documented in this encounterOhiohealth O'[facility]08-11-2022 Miscellaneous Notes* Telephone Encounter - Gavin Tran MD - 11/29/2021 6:33 AM EDT Good. * Telephone Encounter - Sruthi Ramsay LPN - 11/28/2021 10:52 AM EDT Patient calling with update. She has been taking the Ibuprofen 600 mg every 8 hours and is feeling 50% better. Her left foot pain is not as bad, using rollator at home at times to keep from limping. Patient said her back is much better riding in the car, not leaning forward all the time. She has been doing her exercises and using ice. She is doing PT and chiropractor visits. 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 Xray 11/2009 Rectal bleeding 03/09/2009 01/13/2012 Diverticulosis of colon 01/06/2009 01/01/20 17 Overview: colonoscopy 07/2012 Last Assessment & Plan: colonoscopy 07/2012 throughout with diverticula. Benign neoplasm of colon 11/30/2008 022 Incontinence of feces 11/30/2008 12/07/2009 Unspecified hemorrhoids without mention of compl ication 11/30/2008 10/04/2013 Anxiety state, unspecified 01/15/200701/12 Chest pain, unspecified 12/03/2005 12/08/19 10 Other malaise and fatigue 12/03/20052009 Family history of malignant neoplasm of breast 0 10/16/2005 02/27/2022 Cervical spondylosis without myelopathy 02/27/20 05 10/04/2013 Diarrhea 02/08/2014 documented as of this encounter (statuses as of 02/28/2022) [facility] History of Past illness Narrative* Problem Noted Date Resolved Date Acute left-sided thoracic back pain 11/26/2021 02/27/2022 Left Achilles tendinitis 11/26/2021 022 Muscle weakness 11/25/2018 05/14/2019 Benign meningioma of brain 10/28/201702/27 Carotid disease, bilateral 01/03/201605/14 Rectocele 03/02/2013 10/04/2013 Anal fissure 03/07/2011 02/08/2014 Enthesopathy of hip region 02/04/201101/12 Spondylosis, 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 Xray 11/2009 Rectal bleeding 03/09/2009 01/13/2012 Diverticulosis of colon 01/06/2009 01/01/20 17 Overview: colonoscopy 07/2012 Last Assessment & Plan: colonoscopy 07/2012 throughout with diverticula. Benign neoplasm of colon 11/30/2008 022 Incontinence of feces 11/30/2008 12/07/2009 Unspecified hemorrhoids without mention of compl ication 11/30/2008 10/04/2013 Anxiety state, unspecified 01/15/200701/12 Chest pain, unspecified 12/03/2005 12/08/19 10 Other malaise and fatigue 12/03/20052009 Family history of malignant neoplasm of breast 0 10/16/2005 02/27/2022 Cervical spondylosis without myelopathy 02/27/20 05 10/04/2013 Diarrhea 02/08/2014 documented as of this encounter (statuses as of 03/08/2022) [facility] of Past illness Narrative* Problem Noted Date Resolved Date Acute left-sided thoracic back pain 11/26/2021 02/27/2022 Left Achilles tendinitis 11/26/2021 022 Muscle weakness 11/25/2018 05/14/2019 Benign meningioma of brain 10/28/201702/27 Carotid disease, bilateral 01/03/201605/14 Rectocele 03/02/2013 10/04/2013 Anal fissure 03/07/2011 02/08/2014 Enthesopathy of hip region 02/04/201101/12 Spondylosis, 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 Xray 11/2009 Rectal bleeding 03/09/2009 01/13/2012 Diverticulosis of colon 01/06/2009 01/01/20 17 Overview: colonoscopy 07/2012 Last Assessment & Plan: colonoscopy 07/2012 throughout with diverticula. Benign neoplasm of colon 11/30/2008 022 Incontinence of feces 11/30/2008 12/07/2009 Unspecified hemorrhoids without mention of compl ication 11/30/2008 10/04/2013 Anxiety state, unspecified 01/15/200701/12 Chest pain, unspecified 12/03/2005 12/08/19 10 Other malaise and fatigue 12/03/20052009 Family history of malignant neoplasm of breast 0 10/16/2005 02/27/2022 Cervical spondylosis without myelopathy 02/27/20 05 10/04/2013 Diarrhea 02/08/2014 documented as of this encounter (statuses as of 03/30/2022) [facility] of Past illness Narrative* Problem Noted Date Resolved Date Acute left-sided thoracic back pain 11/26/2021 02/27/2022 Left Achilles tendinitis 11/26/2021 022 Muscle weakness 11/25/2018 05/14/2019 Benign meningioma of brain 10/28/201702/27 Carotid disease, bilateral 01/03/201605/14 Rectocele 03/02/2013 10/04/2013 Anal fissure 03/07/2011 02/08/2014 Enthesopathy of hip region 02/04/201101/12 Spondylosis, 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 Xray 11/2009 Rectal bleeding 03/09/2009 01/13/2012 Diverticulosis of colon 01/06/2009 01/01/20 17 Overview: colonoscopy 07/2012 Last Assessment & Plan: colonoscopy 07/2012 throughout with diverticula. Benign neoplasm of colon 11/30/2008 022 Incontinence of feces 11/30/2008 12/07/2009 Unspecified hemorrhoids without mention of compl ication 11/30/2008 10/04/2013 Anxiety state, unspecified 01/15/200701/12 Chest pain, unspecified 12/03/2005 12/08/19 10 Other malaise and fatigue 12/03/20052009 Family history of malignant neoplasm of breast 0 10/16/2005 02/27/2022 Cervical spondylosis without myelopathy 02/27/20 05 10/04/2013 Diarrhea 02/08/2014 documented as of this encounter (statuses as of 08/22/2022) [facility] of Past illness Narrative* Problem Noted Date Resolved Date Acute left-sided thoracic back pain 11/26/2021 02/27/2022 Left Achilles tendinitis 11/26/2021 022 Muscle weakness 11/25/2018 05/14/2019 Benign meningioma of brain 10/28/201702/27 Carotid disease, bilateral 01/03/201605/14 Rectocele 03/02/2013 10/04/2013 Anal fissure 03/07/2011 02/08/2014 Enthesopathy of hip region 02/04/201101/12 Spondylosis, 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 Xray 11/2009 Rectal bleeding 03/09/2009 01/13/2012 Diverticulosis of colon 01/06/2009 01/01/20 17 Overview: colonoscopy 07/2012 Last Assessment & Plan: colonoscopy 07/2012 throughout with diverticula. Benign neoplasm of colon 11/30/2008 022 Incontinence of feces 11/30/2008 12/07/2009 Unspecified hemorrhoids without mention of compl ication 11/30/2008 10/04/2013 Anxiety state, unspecified 01/15/200701/12 Chest pain, unspecified 12/03/2005 12/08/19 10 Other malaise and fatigue 12/03/20052009 Family history of malignant neoplasm of breast 0 10/16/2005 02/27/2022 Cervical spondylosis without myelopathy 02/27/20 05 10/04/2013 Diarrhea 02/08/2014 documented as of this encounter (statuses as of 08/30/2022) [facility] of Past illness Narrative* Problem Noted Date Diagnosed Date Resolved Date Acute left-sided thoracic back pain 11/26/2021 02/27/2022 Left Achilles tendinitis 11/26/202112/2021 Incontinence of feces 03/09/20212022 Muscle weakness 11/25/2018 05/14/2019 Carotid disease, bilateral 01/03/2016 0 05/14/2019 Rectocele 03/02/2013 10/04/2013 Anal fissure 03/07/2011 02/08/2014 Enthesopathy of hip region 02/04/2011 0 01/13/2012 Spondylosis, 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2013 Overview: T3 to T7: mild-moderate. Xray 11/2009 Rectal bleeding 03/09/2009 01/13/2012 Diverticulosis of colon 01/06/200912/20 Overview: colonoscopy 07/2012 Last Assessment & Plan: colonoscopy 07/2012 throughout with diverticula. Benign neoplasm of colon 11/30/200812/2021 Incontinence of feces 11/30/20082009 Unspecified hemorrhoids with out mention of complication 11/30/2008 10/04/2013 Anxiety state, unspecified 01/15/2007 0 01/13/2012 Chest pain, unspecified 12/03/200511/19 Other malaise and fatigue 12/03/2005 Family history of malignant neoplasm of breast 10/16/2005 02/27/2022 Cervical spondylosis without myelopathy 02/26/2005 10/04/2013 Diarrhea 02/08/2014 documented as of this encounter (statuses as of 12/06/2022) [facility] of Past illness Narrative* Problem Noted Date Diagnosed Date Resolved Date Acute left-sided thoracic back pain 11/26/2021 02/27/2022 Left Achilles tendinitis 11/26/202112/2021 Incontinence of feces 03/09/20212022 Muscle weakness 11/25/2018 05/14/2019 Carotid disease, bilateral 01/03/2016 0 05/14/2019 Rectocele 03/02/2013 10/04/2013 Anal fissure 03/07/2011 02/08/2014 Enthesopathy of hip region 02/04/2011 0 01/13/2012 Spondylosis, 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2013 Overview: T3 to T7: mild-moderate. Xray 11/2009 Rectal bleeding 03/09/2009 01/13/2012 Diverticulosis of colon 01/06/200912/20 Overview: colonoscopy 07/2012 Last Assessment & Plan: colonoscopy 07/2012 throughout with diverticula. Benign neoplasm of colon 11/30/200812/2021 Incontinence of feces 11/30/20082009 Unspecified hemorrhoids with out mention of complication 11/30/2008 10/04/2013 Anxiety state, unspecified 01/15/2007 0 01/13/2012 Chest pain, unspecified 12/03/200511/19 Other malaise and fatigue 12/03/2005 Family history of malignant neoplasm of breast 10/16/2005 02/27/2022 Cervical spondylosis without myelopathy 02/26/2005 10/04/2013 Diarrhea 02/08/2014 documented as of this encounter (statuses as of 02/23/2023) [facility] of [facility] illness Narrative* Problem Noted Date Diagnosed Date Resolved Date Acute left-sided thoracic back pain 11/26/2021 02/27/2022 Left Achilles tendinitis 11/26/202112/2021 Incontinence of feces 03/09/20212022 Muscle weakness 11/25/2018 05/14/2019 Carotid disease, bilateral 01/03/2016 0 05/14/2019 Rectocele 03/02/2013 10/04/2013 Anal fissure 03/07/2011 02/08/2014 Enthesopathy of hip region 02/04/2011 0 01/13/2012 Spondylosis, 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2013 Overview: T3 to T7: mild-moderate. Xray 11/2009 Rectal bleeding 03/09/2009 01/13/2012 Diverticulosis of colon 01/06/200912/20 Overview: colonoscopy 07/2012 Last Assessment & Plan: colonoscopy 07/2012 throughout with diverticula. Benign neoplasm of colon 11/30/200812/2021 Incontinence of feces 11/30/20082009 Unspecified hemorrhoids with out mention of complication 11/30/2008 10/04/2013 Anxiety state, unspecified 01/15/2007 0 01/13/2012 Chest pain, unspecified 12/03/200511/19 Other malaise and fatigue 12/03/2005 Family history of malignant neoplasm of breast 10/16/2005 02/27/2022 Cervical spondylosis without myelopathy 02/26/2005 10/04/2013 Diarrhea 02/08/2014 documented as of this encounter (statuses as of 02/27/2023) [facility] of Past illness Narrative* Problem Noted Date Diagnosed Date Resolved Date Acute left-sided thoracic back pain 11/26/2021 02/27/2022 Left Achilles tendinitis 11/26/202112/2021 Incontinence of feces 03/09/20212022 Muscle weakness 11/25/2018 05/14/2019 Carotid disease, bilateral 01/03/2016 0 05/14/2019 Rectocele 03/02/2013 10/04/2013 Anal fissure 03/07/2011 02/08/2014 Enthesopathy of hip region 02/04/2011 0 01/13/2012 Spondylosis, 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2013 Overview: T3 to T7: mild-moderate. Xray 11/2009 Rectal bleeding 03/09/2009 01/13/2012 Diverticulosis of colon 01/06/200912/20 Overview: colonoscopy 07/2012 Last Assessment & Plan: colonoscopy 07/2012 throughout with diverticula. Benign neoplasm of colon 11/30/200812/2021 Incontinence of feces 11/30/20082009 Unspecified hemorrhoids with out mention of complication 11/30/2008 10/04/2013 Anxiety state, unspecified 01/15/2007 0 01/13/2012 Chest pain, unspecified 12/03/200511/19 Other malaise and fatigue 12/03/2005 Family history of malignant neoplasm of breast 10/16/2005 02/27/2022 Cervical spondylosis without myelopathy 02/26/2005 10/04/2013 Diarrhea 02/08/2014 documented as of this encounter (statuses as of 02/28/2023) [facility] Narrative* Problem Noted Date Diagnosed Date Resolved Date Acute left-sided thoracic back pain 11/26/2021 02/27/2022 Left Achilles tendinitis 11/26/202112/2021 Incontinence of feces 03/09/20212022 Muscle weakness 11/25/2018 05/14/2019 Carotid disease, bilateral 01/03/2016 0 05/14/2019 Rectocele 03/02/2013 10/04/2013 Anal fissure 03/07/2011 02/08/2014 Enthesopathy of hip region 02/04/2011 0 01/13/2012 Spondylosis, 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2013 Overview: T3 to T7: mild-moderate. Xray 11/2009 Rectal bleeding 03/09/2009 01/13/2012 Diverticulosis of colon 01/06/200912/20 Overview: colonoscopy 07/2012 Last Assessment & Plan: colonoscopy 07/2012 throughout with diverticula. Benign neoplasm of colon 11/30/200812/2021 Incontinence of feces 11/30/20082009 Unspecified hemorrhoids with out mention of complication 11/30/2008 10/04/2013 Anxiety state, unspecified 01/15/2007 0 01/13/2012 Chest pain, unspecified 12/03/200511/19 Other malaise and fatigue 12/03/2005 Family history of malignant neoplasm of breast 10/16/2005 02/27/2022 Cervical spondylosis without myelopathy 02/26/2005 10/04/2013 Diarrhea 02/08/2014 documented as of this encounter (statuses as of 03/20/2023) [facility] Past illness Narrative* Problem Noted Date Diagnosed Date Resolved Date Acute left-sided thoracic back pain 11/26/2021 02/27/2022 Left Achilles tendinitis 11/26/202112/2021 Incontinence of feces 03/09/20212022 Muscle weakness 11/25/2018 05/14/2019 Carotid disease, bilateral 01/03/2016 0 05/14/2019 Rectocele 03/02/2013 10/04/2013 Anal fissure 03/07/2011 02/08/2014 Enthesopathy of hip region 02/04/2011 0 01/13/2012 Spondylosis, 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2013 Overview: T3 to T7: mild-moderate. Xray 11/2009 Rectal bleeding 03/09/2009 01/13/2012 Diverticulosis of colon 01/06/200912/20 Overview: colonoscopy 07/2012 Last Assessment & Plan: colonoscopy 07/2012 throughout with diverticula. Benign neoplasm of colon 11/30/200812/2021 Incontinence of feces 11/30/20082009 Unspecified hemorrhoids with out mention of complication 11/30/2008 10/04/2013 Anxiety state, unspecified 01/15/2007 0 01/13/2012 Chest pain, unspecified 12/03/200511/19 Other malaise and fatigue 12/03/2005 Family history of malignant neoplasm of breast 10/16/2005 02/27/2022 Cervical spondylosis without myelopathy 02/26/2005 10/04/2013 Diarrhea 02/08/2014 documented as of this encounter (statuses as of 03/25/2023) [facility] History of Past illness Narrative* Problem Noted Date Diagnosed Date Resolved Date Acute left-sided thoracic back pain 11/26/2021 02/27/2022 Left Achilles tendinitis 11/26/202112/2021 Incontinence of feces 03/09/20212022 Muscle weakness 11/25/2018 05/14/2019 Carotid disease, bilateral 01/03/2016 0 05/14/2019 Rectocele 03/02/2013 10/04/2013 Anal fissure 03/07/2011 02/08/2014 Enthesopathy of hip region 02/04/2011 0 01/13/2012 Spondylosis, 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2013 Overview: T3 to T7: mild-moderate. Xray 11/2009 Rectal bleeding 03/09/2009 01/13/2012 Diverticulosis of colon 01/06/200912/20 Overview: colonoscopy 07/2012 Last Assessment & Plan: colonoscopy 07/2012 throughout with diverticula. Benign neoplasm of colon 11/30/200812/2021 Incontinence of feces 11/30/20082009 Unspecified hemorrhoids with out mention of complication 11/30/2008 10/04/2013 Anxiety state, unspecified 01/15/2007 0 01/13/2012 Chest pain, unspecified 12/03/200511/19 Other malaise and fatigue 12/03/2005 Family history of malignant neoplasm of breast 10/16/2005 02/27/2022 Cervical spondylosis without myelopathy 02/26/2005 10/04/2013 Diarrhea 02/08/2014 documented as of this encounter (statuses as of 03/27/2023) [facility] History of Present illness Narrative* Adam Greene, PT - 11/26/2021 9:30 AM EDT Episode Visit Count: 1 Therapist That Will Oversee The Plan Of Care: Adam Greene Start of Care Date: 11/26/21 Onset Date: 10/15/21 (Heel pain) Plan of Care Certification Date: 11/26/21 Next Certification Due Date: 12/31/21 Patient Identified by Name and Date of : Yes REHABILITATION AND SPORTS THERAPY PHYSICAL THERAPY EVALUATION PLAN OF CARE: Assessment: Fannie Avalos presents with chief complaint of L ankle and back pain that interfereswith walking . She presents with impairments in gait, independence in exercise, overall function, and tissue tenderness. Prognosis for therapy is Good due to: current objective clinical presentation . Pt will benefit from activity modification, icing, manual therapy, and therapeutic exercises. Painwith palpation to the Lateral foot and heel at insertion of the achilles tendon. She will benefit from skilled therapy services to meet the goals established for this plan of care as noted below. Goals for Episode of Care: created on 11/26/21 through 02/04/22 Pt will report an overall improvement in L heel/ankle pain by 80% in 10 weeks or less [place] in home exercise program. Perform standing without pain. Normal gait. Patient Goals: To decrease ankle pain. Planned Interventions, Frequency, and Duration: Current Frequency: 1x/week Duration: 4 weeks Total Number of Visits Planned: 4 Planned Treatment Interventions: Therapeutic exercise (13569);Neuromuscular re- education (69693);Manual therapy (24172);Self-intermediate management (78377);Gait Training (01938);Patient/Family/Caregiver Education PLAN FOR NEXT VISIT: Assess navicular drop. IASTM. foot intrinsic strengthening. Patient demonstrates good understanding of plan of care and treatment. The above goals and plan of care were discussed and agreed upon by patient/family. SUBJECTIVE: Fannie Avalos is a 76 year old female seen today for L heel pain with heel spur and tendonosis. Pt has been icing the heel twice a day. Pt has been limping for this which is what has caused the back pain. Seeing the chiropractor for the back and this is really helping. aching to walkon. Does stretching from Dr. Frank. Did tear her L achilles tendon previously. Wearing an insertwhich seems to help. Wants to focus primarily on the L heel pain Patient Goals: To decrease ankle pain. Functional Limitations: walking Prior Level of Function: Independent without limitations Relevant History Preferred Language: Indian Intake Information: Prescription present Previous Treatment: Chiropractor Falls Interview: No positive findings with falls interview Pain: Pain Pain Level: 8 (when walking) Pain Location: Heel - Left Description: Aching (use to be sharp) PROMIS Scales T-scores: mean of general population = 50. 5 points is clinically meaningfully difference Percentiles provide an indication of how the patient's score ranks in relation to the general population. Higher percentile rankings indicate better function/quality of life. 50th percentile is the average of the general population and indicates half of respondents had a worse score. T-scores: mean of general population = 50. 5 points is clinically meaningfully difference Percentiles provide an indication of how the patient's score ranks in relation to the general population. Higher percentile rankings indicate better function/quality of life. 50th percentile is the average of the general population and indicates half of respondents had a worse score. OBJECTIVE MEASURES WITH LEVEL OF FUNCTION: Ankle Observations L Ankle Palpation Tenderness: Achilles tendon (at insertion point and along the lateral portion of the foot) LE AROM R LE AROM: WNL L LE AROM: WNL LE PROM R Ankle Dorsiflexion: 16 Degrees L Ankle Dorsiflexion: 14 Degrees LE Flexibility Flexibility: Gastrocnemius Flexibility R Gastrocnemius Flexibility: WNL L Gastrocnemius Flexibility: tight LE Joint Mobility R Talocrural Joint: WNL L Talocrural Joint: WNL LE Strength R LE Strength: Grossly 5/5 L LE Strength: Grossly 5/5 Gait Gait Observation: Landing on lateral side of the L foot. Short stride and decreased heel strike andtoe off. Education: Education Learning Preferences: Demonstration;Explanation;Performance;Printed Materials Barriers: None Learning/educational needs: Health promotion;Home exercise program Education Provided: Yes, see treatment interventions for education provided Education Provided To: Patient Education Mode/Type: Demonstration;Explanation/Discussion;Literature/Printed Materials;Performance Response to Education/Teach Back: States/Identifies;Return Demonstration TREATMENT: PT Treatment Interventions: Therapeutic Exercise;Manual Therapy Evaluation Therapeutic Exercise: 1: Discussed therapy goals, exam findings, purpose of the HEP. HEP handout provided. 2: Standing calf stretch x 30 seconds (Discussed proper form) 3: Ankle PF against GTB x 15 reps 4: Discussed slowly loading the gastroc without pain Skilled Intervention: Patient was educated in proper exercise technique and purpose for exercises. Correct performance of therapeutic exercises was facilitated with verbal and visual cuing. Manual Therapy: Skilled Intervention: Manual skills to improve joint mobility, ROM, and decrease pain. Utilized anatomy knowledge of the therapist, and assessment of patient's response to intervention. Billing * Evaluation Low Complexity: 1 Unit Therapeutic Exercise Treatment Minutes: 24 Total Treatment Time Minutes (timed/untimed): 45 Adam Greene PT documented in this encounterOhio[facility] Instructions* Patient Instructions* Gavin Tran MD - 11/22/2021 1:47 PM EDT Take ibuprofen 3 times a day routine for 3 days, then as needed. Call as needed. documented in this encounterOhio[facility] History of Present illness Narrative* Gavin Tran MD - 11/22/2021 1:30 PM EDT This note was created using [employer]. Saul Avalos is a 76 year old female. She started with left heel pain about 6 weeks ago, that persisted and affected her gait. IT SECURITY SPECIALIST referred her to podiatry, and xray showed heel spurs. This was then followed by moderate to severe stabbing pains from in her left scapula, paroxysmal, not related to activity. Ibuprofen did not help. She went to and was prescribed Medrol pack and cyclobenzaprine. Medrol pack helped while it lasted but left scapular pains recurred after steroid was done. She then saw podiatry who recommended icing and heel pad with some relief. At this point pain was severe and mostly in the left upper back. She went to a chiropractor with no relief. She went to [facility] 11/19/21 where labs were unremarkable, and CT of the thoracic spine showed no acute process. She was given Percocet and diazepam with temporary relief. This flared up again 11/20 and she went to [facility] where CXR and lumbar xrays showed no acute process. Review of Systems Constitutional: Negative for appetite change, chills, fever and unexpected weight change. HENT: Negative for congestion and sore throat. Eyes: Negative. Respiratory: Negative for cough, chest tightness and shortness of breath. Cardiovascular: Negative for chest pain, palpitations and leg swelling. Gastrointestinal: Negative for abdominal pain, diarrhea, nausea and vomiting. Genitourinary: Negative for difficulty urinating and dysuria. Skin: Negative for rash. Neurological: Negative for weakness. ACTIVE PROBLEM LIST Hyperlipidemia Family History of Malignant Neoplasm of Breast Benign Neoplasm of Colon Allergic Rhinitis Palpitations Ibs (Irritable Bowel Syndrome) Osteopenia Benign Meningioma of Brain (Hcc) Carotid Artery Stenosis Incontinence of Feces Benign Neoplasm of Meninges (Hcc) Current Outpatient Medications Medication Sig atenolol (TENORMIN) 25 mg tablet Take 1 tablet by mouth once daily. diazePAM (VALIUM) 10 mg tablet Take 10 mg by mouth every 6 hours as needed. oxycodone HCl/acetaminophen (PERCOCET ORAL) Take by mouth. cyclobenzaprine (FLEXERIL) 10 mg tablet Take 1/2 to 1 tablet tid prn Biotin 10,000 mcg cap Take 1 capsule by mouth once daily. atorvastatin (LIPITOR) 40 mg tablet TAKE 1 TABLET EVERY DAY AT BEDTIME FOR CHOLESTEROL Cholecalciferol, Vitamin D3, 25 mcg (1,000 unit) cap Take 1 capsule by mouth once daily. wheat dextrin (BENEFIBER CLEAR SF, DEXTRIN, ORAL) Take 1 teaspoonful by mouth three times daily. VITAMIN E 200 UNIT CAP Take one(1) tablet daily. Perry-3 Fatty Acids (FISH OIL) ORAL Cap Take one(1) capsule daily. MULTIVITAMIN TAB Take one(1) tablet daily. CALCIUM + D 600 MG-200 UNIT TAB Take one(1) tablet daily. ASPIRIN 81 MG TAB Take one (1) tablet daily . ibuprofen (MOTRIN) 600 mg tablet Take 1 tablet by mouth every 8 hours as needed for pain. iv contrast (will be provided with radiology test) MRI Brain Inject, intravenously, once for 1 dose.No IV access, insert saline lock prior to beginning of sedation, infusion, injection of imaging exam.Discontinue saline lock post exam. If Pt. has a central line or IVAD, may access for administration according to line specific nursing protocol.Once exam is complete flush line and de-access according to line specific nursing protocol in the MR contrast administration guidelines link No current facility-administered medications for this visit. Objective BP 130/76 (BP Site: Left Arm, BP Position: Sitting, BP Cuff Size: Large Adult) Pulse 72 Temp 36.3 C (97.3 F) (Temporal Artery) Resp 16 Wt 60.8 kg (134 lb) BMI 23.18 kg/m Physical Exam Constitutional: General: She is not in acute distress. HENT: Head: Normocephalic. Cardiovascular: Rate and Rhythm: Normal rate and regular rhythm. Heart sounds: No murmur heard. No gallop. Pulmonary: Effort: Pulmonary effort is normal. Breath sounds: Normal breath sounds. Chest: Chest wall: No tenderness. Abdominal: Palpations: Abdomen is soft. Tenderness: There is no abdominal tenderness. Musculoskeletal: General: No deformity. Normal range of motion. Cervical back: Neck supple. No tenderness. Thoracic back: Tenderness present. Scoliosis present. Lumbar back: No tenderness. Negative right straight leg raise test and negative left straight leg raise test. Scoliosis present. Comments: Left medial scapular edge tenderness Skin: Findings: No rash. Neurological: Mental Status: She is alert. Cranial Nerves: Cranial nerves are intact. Sensory: Sensation is intact. Motor: Motor function is intact. No weakness or abnormal muscle tone. Gait: Gait is intact. Assessment and Plan 1. Acute left-sided thoracic back pain - ICD9: 724.1, ICD10: M54.6 (primary diagnosis) Pinched nerve. - CONSULT TO PHYSICAL THERAPY - IBUPROFEN 600 MG TABLET. Discussed medication dosage, usage, goals of therapy, and side effects. - Consider gabapentin if not better next week. 2. Left Achilles tendinitis - ICD9: 726.71, ICD10: M76.62 - CONSULT TO PHYSICAL THERAPY - IBUPROFEN 600 MG TABLET 3. Palpitations - ICD9: 785.1, ICD10: R00.2 Refilled. - ATENOLOL 25 MG TABLET Gavin Tran MD documented in this encounterOhiohealth [facility] Instructions* Patient Instructions* Oumar Frank - 11/13/2021 3:50 PM EDT Recommend gel heel pad to left heel Recommend cold water soak x 10 minutes twice daily Recommend calf stretching morning, afternoon and evening Would avoid any steroid injection documented in this encounterOhiohealth [facility] History of Present illness Narrative* Oumar Frank - 11/13/2021 3:43 PM EDT Consultation requested by Dr. Manuel for an opinion regarding left heel pain. My final recommendations will be communicated back to the requesting physician by way of shared Medical record or letter to requesting physician via US mail. Initial Podiatric Office Visit: Chief Complaint: This 76 year old female who presents with chief complaint:left posterior heel pain HPI Patient presents to clinic for evaluation of left foot. She complains of pain to the left posteriorheel. The pain has been present for a couple of months. The pain hurts her the most whenever she iswalking long duration or if there is any pressure on the heel, ie sleeping on mattress. She states that a few weeks ago, the pain grew so intense that it altered her gait and her back started causing her pain. She presented to urgent care and they prescribed her prednisone. The prednisone helped with her back. The prednisone did help to some degree her foot but she still has pain. Patient did take nsaids in the beginning but not currently . She does not feel the nsaids made muchdifference Patient performs rom exercises She has also changed her shoes. 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 CERVICAL SPONDYLOSIS 02/26/2005 Diarrhea Diverticulosis of colon 01/06/2009 Esophageal reflux Hemorrhage of rectum and anus 12/02/2017 HEMORRHOIDS NOS 11/30/2008 HYPERLIPIDEMIA NEC/NOS 03/18/2005 IBS (irritable bowel syndrome) 01/26/2013 Incontinence of feces 11/30/2008 Osteopenia Palpitations 01/13/2012 Perforation of large intestine (HCC) 12/03/2017 Spondylosis, 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 TIA (transient ischemic attack) 06/17/2017 [place], [place] Current Outpatient Medications Medication Sig iv contrast (will be provided with radiology test) MRI Brain Inject, intravenously, once for 1 dose.No IV access, insert saline lock prior to beginning of sedation, infusion, injection of imaging exam.Discontinue saline lock post exam. If Pt. has a central line or IVAD, may access for administration according to line specific nursing protocol.Once exam is complete flush line and de-access according to line specific nursing protocol in the MR contrast administration guidelines link diphenhydrAMINE (BENADRYL) 50 mg capsule Take 1 capsule by mouth one time only for 1 dose. Take 1 hour prior to MRI d/t contrast allergy predniSONE (DELTASONE) 50 mg Take 1 tablet by mouth every 6 hours for 3 doses. MRI contrast prep- to be taken at 13 hours prior, 7 hours prior, and 1 hour prior to MRI cyclobenzaprine (FLEXERIL) 10 mg tablet Take 1/2 to 1 tablet tid prn Biotin 10,000 mcg cap Take 1 capsule by mouth once daily. atorvastatin (LIPITOR) 40 mg tablet TAKE 1 TABLET EVERY DAY AT BEDTIME FOR CHOLESTEROL atenolol (TENORMIN) 25 mg tablet Take 1 tablet by mouth once daily. Cholecalciferol, Vitamin D3, 25 mcg (1,000 unit) cap Take 1 capsule by mouth once daily. wheat dextrin (BENEFIBER CLEAR SF, DEXTRIN, ORAL) Take 1 teaspoonful by mouth three times daily. VITAMIN E 200 UNIT CAP Take one(1) tablet daily. Perry-3 Fatty Acids (FISH OIL) ORAL Cap Take one(1) capsule daily. MULTIVITAMIN TAB Take one(1) tablet daily. CALCIUM + D 600 MG-200 UNIT TAB Take one(1) tablet daily. ASPIRIN 81 MG TAB Take one (1) tablet daily . Bifidobacterium Infantis (ALIGN) 4 mg cap Take 1 capsule by mouth once daily. (Patient not taking: Reported on 11/05/2021 ) No current facility-administered medications for this visit. ALLERGIES Allergen Reactions Bactrim [Sulfametho* GI Upset nausea Clindamycin Hcl GI Upset Flagyl [Metronidazo* GI Upset Gadolinium-Containi* Hives Gadolinium/Gadavist Trimethoprim Vomiting Levofloxacin GI Upset PAST SURGICAL HISTORY Procedure Laterality Date CHOLECYSTECTOMY HX 03/2018 COLONOSCOPY FLX DX W/COLLJ SPEC WHEN PFRMD 10/20/03 Colonoscopy COLONOSCOPY FLX DX W/COLLJ SPEC WHEN PFRMD 01/06/09 Extensive diverticulosis/hemorrhoids COLONOSCOPY FLX DX W/COLLJ SPEC WHEN PFRMD 07/24/2012 Colonoscopy [place] COLSC FLEXIBLE W/CONTROL BLEEDING ANY METHOD 12/02/2017 laser of cecal AVM DRAIN ABDOMINAL ABSCESS, PERCUTANEOUS 12/15/2017 perianastomotic abscess EGD 12/02/2017 ESOPHAGOGASTRODUODENOSCOPY TRANSORAL DIAGNOSTIC 07/03/2012 E[place] in [place] HEMORRHOIDECTOMY INT & XTRNL 2/> COLUMN/HI 10-26-2009 LAMINECTOMY W/RMVL ABNORMAL FACETS LUMBAR 07/08/2011 [place], [place] LAPAROSCOPY COLECTOMY PARTIAL W/ANASTOMOSIS 02/02/2009 LAPAROSCOPY COLECTOMY PARTIAL W/ANASTOMOSIS Right 12/03/2017 LAPS MOBLJ SPLENIC FLXR PFRMD W/PRTL COLECTOMY 02-02-09 PAST SURGICAL HISTORY OF 1964 ovarian cyst removed PAST SURGICAL HISTORY OF 2001 BREAST BIOPSY--BENIGN PAST SURGICAL HISTORY OF 03/28/2018 Gallbladder removed SIGMOIDOSCOPY FLX CONTROL BLEEDING 03/22/09 Granulation tissue at anastomosis SIGMOIDOSCOPY FLX W/BIOPSY SINGLE/MULTIPLE 02/28/11 TOTAL ABDOMINAL HYSTERECT W/WO RMVL TUBE OVARY Hysterectomy, TERI, BSO FAMILY HISTORY Problem Relation Age of Onset Breast Cancer Mother dec. age 88 Blood Disease Father PE, post MVA, dec. 53yo Breast Cancer Sister other (Other) Sister complications from falling Breast Cancer Sister None Sister other (multiple myeloma) Brother Alzheimer's Disease Sister Social History Tobacco Use Smoking status: Never Smoker Smokeless tobacco: Never Used Vaping Use Vaping Use: Never used Substance Use Topics Alcohol use: No Drug use: No REVIEW OF SYSTEMS GENERAL: Negative for Malaise, significant weight loss, fever RESPIRATORY: Negative for cough, wheezing and shortness of breath CARDIOVASCULAR: Negative for chest pain, leg swelling and palpitations GI: Negative for abdominal discomfort, blood in stools or black stools and change in bowel habits : Negative for dysuria, frequency and incontinence MUSCULOSKELETAL: Negative for joint pain or swelling, back pain, and muscle pain. SKIN: Negative for lesions, rash, and itching. HEMATOLOGY/LYMPHOLOGY Negative for prolonged bleeding, bruising easily, and swollen nodes. ENDOCRINE: Negative for cold or heat intolerance, polyuria, polydipsia and goiter. NEURO: negative Physical Exam: Constitutional: Pt is a well developed 76 year old female who is alert, oriented and cooperative Eyes: Following during examination. No redness or drainage. Respiratory: RR normal and nonlabored. Even breathing. No evidence of distress or shortness of breath. Psychology: Patient is engaged during conversation. Normal affect and mood. Does not appear depressed or anxious during encounter. Vascular: Dorsalis pedis and posterior tibial pulses palpable as b/l Capillary Fill time < 5 seconds to digits 1-5 b/l Skin temperature warm to warm proximal to distal b/l Hair growth present to digits Neurological: intact light touch/epicritic sensation b/l intact protective sensation no significant neurological deficits Dermatological: Nails 1-5 b/l appear normal. Webspaces clean and dry 1-4 b/l. Skin appears well hydrated and supple. good color, texture, turgor. No open lesions present. No callosities present. Musculoskeletal/Orthopaedic: Patient has pain to palpation of left posterior heel. Palpable spurring to left achilles insertion and there is evidence of thickening of left achilles tendon Foot type is neutral structurally AJ ROM is full with knee extended and flexed 1st MPJ is full when loaded and no pain or crepitus are noted with ROM. MTJ, STJ are full and free of pain and crepitus. +5/5 muscle strength dorsiflexion, plantarflexion, inversion, eversion b/l Radiographs: 3 views left foot ordered November 13, 2021: I have personally reviewed and interpreted these XR myself: Posterior heel spur with tendinosis ASSESSMENT: (M77.32) Calcaneal spur of left foot (primary encounter diagnosis) (M79.672) Pain of left heel (M76.62) Tendonitis, Achilles, left PLAN: 1. History and physical examination performed. 2. XR reviewed with patient and interpreted today 3. Discussed left heel spur. Recommend stretching, icing, nsaids prn. Will also do gel heel pad 4. Offered therapy but for now, she has declined 5. If pain fails to improve, resection of spur is possible option Oumar Frank DPM Podiatry [address] [facility] [address] Dept: [phone] Dept * Esmer Rice RN - 11/13/2021 3:27 PM EDT AMB ROOMING INTAKE FLOWSHEET DATA Pain Pain Level: 8 Pain Location: Heel-Left Description: Aching Duration Amount of Time: 1 Duration Units: Months Frequency: Continuous Intervention/Comfort measure: Reposition, Relaxation Patient presents with: Left Foot - New Patient, Pain Patient c/o L posterior heel pain x 1 month. No injury. Pain worse with pressure and barefoot walking. documented in this encounterOhiohealth O[facility]07-[facility]22 Miscellaneous Notes* Telephone Encounter - Arely Sims RN - 11/08/2021 6:16 PM EDT Attempted several times to reach pt at [phone] and also pt's Baron at [phone]. They appear to have something wrong with their phones as they were not able to hear anything on any of the calls. I left a message for the radiation oncology racing secretary Austin Winston to let her know I was unable to get pt scheduled for gamma knife as pt was calling the rad onc the department asking when her tx would be scheduled. Gamma Knife staff will attempt to reach pt again on Friday next week when we are back in the office. documented in this encounterOhiohealth O'[facility]07-18-2022 Instructions* Patient Instructions* Lisa Izquierdo APRN.CNP - 11/05/2021 2:31 PM EDT * Stretches as discussed * Medrol dose pack as ordered * Flexeril as needed * Do not NSAIDs during this 6 day course (ibuprofen, naproxen, Motrin, Aleve, Advil) Tylenol only during dose pack use * Follow up with primary care provider if no improvement with treatment documented in this encounterOhiohealth O'[facility]07-18-[facility]22 History of Present illness Narrative* Lisa Izquierdo APRN.CNP - 11/05/2021 2:30 PM EDT Images from the original note were not included. Subjective The history is provided by the patient. No american sign language teacher was used. NICCI Avalos is a 76 year old female who presents today for CC of upper back pain that started in the past week. She denies any known injury or trauma. She has used ibuprofen with minimal relief. She denies any chest pain or shortness of breath. BP 122/74 Pulse 92 Temp 36.7 C (98.1 F) Resp 16 Wt 60.8 kg (134 lb) SpO2 97% BMI 23.18 kg/m Social History Tobacco Use Smoking status: Never Smoker Smokeless tobacco: Never Used Vaping Use Vaping Use: Never used Substance Use Topics Alcohol use: No Drug use: No 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 CERVICAL SPONDYLOSIS 02/26/2005 Diarrhea Diverticulosis of colon 01/06/2009 Esophageal reflux Hemorrhage of rectum and anus 12/02/2017 HEMORRHOIDS NOS 11/30/2008 HYPERLIPIDEMIA NEC/NOS 03/18/2005 IBS (irritable bowel syndrome) 01/26/2013 Incontinence of feces 11/30/2008 Osteopenia Palpitations 01/13/2012 Perforation of large intestine (HCC) 12/03/2017 Spondylosis, 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 Musculoskeletal: Positive for back pain (upper right). Negative for joint pain and myalgias. Skin: Negative for itching and rash. All other systems reviewed and are negative. Objective Physical Exam Vitals and nursing note reviewed. Cardiovascular: Rate and Rhythm: Normal rate and regular rhythm. Pulses: Radial pulses are 2+ on the right side and 2+ on the left side. Popliteal pulses are 2+ on the right side and 2+ on the left side. Dorsalis pedis pulses are 2+ on the right side and 2+ on the left side. Posterior tibial pulses are 2+ on the right side and 2+ on the left side. Heart sounds: Normal heart sounds. Pulmonary: Effort: Pulmonary effort is normal. Breath sounds: Normal breath sounds. Musculoskeletal: Cervical back: Normal. Thoracic back: Tenderness present. No swelling, edema, deformity, signs of trauma, lacerations, spasms or bony tenderness. Normal range of motion. No scoliosis. Back: Skin: General: Skin is warm and dry. Neurological: Mental Status: She is alert and oriented to person, place, and time. Sensory: Sensation is intact. Deep Tendon Reflexes: Reflexes are normal and symmetric. Psychiatric: Mood and Affect: Affect normal. ASSESSMENT/PLAN: 1. Acute left-sided thoracic back pain - ICD9: 724.1, ICD10: M54.6 Mechanical low back pain - Ice for localized tenderness - Warm moist heat for 20 min three times a day - Medrol dose pack - Muscle relaxant- see orders - Patient given instructions use of medications as ordered, intermittent rest, back care exercise program and intermittent use of heat Diagnosis and treatment plan were discussed and questions were answered to the patient's satisfaction. Pt acknowledged understanding of concepts and follow up plan. Specific signs and symptoms that would indicate the need for higher level of care were discussed indetail warranting prompt ER evaluation. Lisa Izquierdo APRN.CNP documented in this encounterOhiohealth O'[facility]07-07-2022 Miscellaneous Notes* Telephone Encounter - Shirin Lazaro - 10/25/2021 1:10 PM EDT Pt was seen 10/04 as a consult. She has decided to have radiation. She wants to know the next step. documented in this encounterOhiohealth O'Bleness [facility]07-06-2022 History of Present illness Narrative* Brunilda Nguyen RT(R) - 10/24/2021 12:10 PM EDT Radiology Service Progress Note PATIENT NAME: Fannie Avalos DATE OF SERVICE: October 24, 2021 TIME: 12:21 PM PATIENT IDENTITY VERIFICATION COMPLETED USING TWO (2) IDENTIFIERS: Name and Date of confirmedby patient verbally. FALL SCREENING: Has the patient had 2 falls in the last year or 1 fall with injury or currently using an Ambulatory Assistive Device (Walker, Cane, Wheelchair, Crutches, etc.)? No PATIENT GENDER DATA: Female. status: : No status: NO. PATIENT RELEVANT IMPLANT DATA REVIEWED: Yes RADIOLOGY DEPARTMENT: General X-ray: Exam(s) Completed: Lower Extremity X- Ray(s): Foot, Left and Wt. Bearing PERIPHERAL IV DATA: Not applicable SIGNED BY: RT Pedrito(R) October 24, 2021 12:21 PM documented in this encounterOhiohealth O'Blen[facility]07-06-2022 History of Present illness Narrative* Catina Manuel APRN.CNP - 10/24/2021 11:39 AM EDT CC: Patient presents with: Recheck: routine follow up HPI Fannie Avalos is a 76 year old female who presents today for above. Patient reports left heel pain for a few weeks. Located on the bottom of the heel. Aggravated by weight bearing activities, walking on tip toes to avoid pain. No injury, swelling or redness. She has a brain meningioma, gamma knife treatment recommended. Patient is still not completely sure but willlikely have done soon. Reports mild headaches and intermittent dizziness but nothing severe. She still has some issues with stool incontinence but much improved with physical therapy. There is a lumpright upper quadrant abdomen, was told by general surgeon it is a sebaceous cyst. She is concerned it may have become a little larger but there is no pain or redness. 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 CERVICAL SPONDYLOSIS 02/26/2005 Diarrhea Diverticulosis of colon 01/06/2009 Esophageal reflux Hemorrhage of rectum and anus 12/02/2017 HEMORRHOIDS NOS 11/30/2008 HYPERLIPIDEMIA NEC/NOS 03/18/2005 IBS (irritable bowel syndrome) 01/26/2013 Incontinence of feces 11/30/2008 Osteopenia Palpitations 01/13/2012 Perforation of large intestine (HCC) 12/03/2017 Spondylosis, 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 TIA (transient ischemic attack) 06/17/2017 [place], [place] PAST SURGICAL HISTORY Procedure Laterality Date CHOLECYSTECTOMY HX 03/2018 COLONOSCOPY FLX DX W/COLLJ SPEC WHEN PFRMD 10/20/03 Colonoscopy COLONOSCOPY FLX DX W/COLLJ SPEC WHEN PFRMD 01/06/09 Extensive diverticulosis/hemorrhoids COLONOSCOPY FLX DX W/COLLJ SPEC WHEN PFRMD 07/24/2012 Colonoscopy in [place] COLSC FLEXIBLE W/CONTROL BLEEDING ANY METHOD 12/02/2017 laser of cecal AVM DRAIN ABDOMINAL ABSCESS, PERCUTANEOUS 12/15/2017 perianastomotic abscess EGD 12/02/2017 ESOPHAGOGASTRODUODENOSCOPY TRANSORAL DIAGNOSTIC 07/03/2012 EGD in [place] HEMORRHOIDECTOMY INT & XTRNL 2/> COLUMN/HI 10-26-2009 LAMINECTOMY W/RMVL ABNORMAL FACETS LUMBAR 07/08/2011 [place], [place] LAPAROSCOPY COLECTOMY PARTIAL W/ANASTOMOSIS 02/02/2009 LAPAROSCOPY COLECTOMY PARTIAL W/ANASTOMOSIS Right 12/03/2017 LAPS MOBLJ SPLENIC FLXR PFRMD W/PRTL COLECTOMY 02-02-09 PAST SURGICAL HISTORY OF 1963 ovarian cyst removed PAST SURGICAL HISTORY OF 2001 BREAST BIOPSY--BENIGN PAST SURGICAL HISTORY OF 03/28/2018 Gallbladder removed SIGMOIDOSCOPY FLX CONTROL BLEEDING 03/22/09 Granulation tissue at anastomosis SIGMOIDOSCOPY FLX W/BIOPSY SINGLE/MULTIPLE 02/28/11 TOTAL ABDOMINAL HYSTERECT W/WO RMVL TUBE OVARY Hysterectomy, TERI, BSO ALLERGIES Bactrim [Sulfamethoxazole-Trimethoprim], Clindamycin Hcl, Flagyl [Metronidazole Hcl], Gadolinium-Containing Contrast Media, Trimethoprim, and Levofloxacin MEDICATIONS Biotin 10,000 mcg cap Take 1 capsule by mouth once daily. atorvastatin (LIPITOR) 40 mg tablet TAKE 1 TABLET EVERY DAY AT BEDTIME FOR CHOLESTEROL atenolol (TENORMIN) 25 mg tablet Take 1 tablet by mouth once daily. Cholecalciferol, Vitamin D3, 25 mcg (1,000 unit) cap Take 1 capsule by mouth once daily. wheat dextrin (BENEFIBER CLEAR SF, DEXTRIN, ORAL) Take 1 teaspoonful by mouth three times daily. VITAMIN E 200 UNIT CAP Take one(1) tablet daily. Perry-3 Fatty Acids (FISH OIL) ORAL Cap Take one(1) capsule daily. MULTIVITAMIN TAB Take one(1) tablet daily. CALCIUM + D 600 MG-200 UNIT TAB Take one(1) tablet daily. Bifidobacterium Infantis (ALIGN) 4 mg cap Take 1 capsule by mouth once daily. cholestyramine (QUESTRAN) 4 gram packet Take 1 Packet by mouth three times daily with meals. ASPIRIN 81 MG TAB Take one (1) tablet daily . FAMILY HISTORY Problem Relation Age of Onset Breast Cancer Mother dec. age 88 Blood Disease Father PE, post MVA, dec. 53yo Breast Cancer Sister other (Other) Sister complications from falling Breast Cancer Sister None Sister other (multiple myeloma) Brother Alzheimer's Disease Sister Social History Tobacco Use Smoking status: Never Smoker Smokeless tobacco: Never Used Vaping Use Vaping Use: Never used Substance Use Topics Alcohol use: No Drug use: No PHYSICAL EXAM BP 112/68 Pulse 62 Resp 12 Wt 60.3 kg (133 lb) BMI 23.01 kg/m General Appearance: well appearing, in no acute distress, alert Pysch: mood and affect broad and appropriate Skin: small cyst palpated right upper quadrant abdomen Left heel: bottom of heel very tender with palpation. No swelling or redness. Health maintenance reviewed with patient: HEPATITIS C SCREENING Never done SHINGRIX VACCINE(2 of 3) due on 01/11/2011 COVID-19 VACCINE(3 - Booster for Moderna series) due on 12/17/2020 ADVANCE DIRECTIVE DISCUSSION Never done DTAP,TDAP,TD(1 - Tdap) due on 01/13/2022 INFLUENZA(1) due on 12/20/2021 DEPRESSION SCREENING due on 10/04/2022 DIABETES SCREEN due on 08/31/2023 BONE DENSITY Completed PNEUMOCOCCAL: 65+ Completed DATA REVIEWED: Most recent labs ASSESSMENT/PLAN: 1. Pain of left heel - ICD9: 729.5, ICD10: M79.672 (primary diagnosis) - CONSULT TO PODIATRY - XR FOOT GENERAL 3V AP/LAT/OBL LEFT 2. Incontinence of feces, unspecified fecal incontinence type - ICD9: 787.60, ICD10: R15.9 Improved. Continue with PT as advised 3. Hyperlipidemia, unspecified hyperlipidemia type - ICD9: 272.4, ICD10: E78.5 - to be determined upon return of lab results - Continue current medication. - Check fasting lipid panel 4. Benign meningioma of brain (HCC) - ICD9: 225.2, ICD10: D32.0 Gamma knife recommended by neurology 5. Palpitations - ICD9: 785.1, ICD10: R00.2 Stable on Atenolol Prescription instructions reviewed with patient as applicable. Potential red flag symptoms discussed with the patient. Reviewed appropriate action plan to take if red flag symptoms occur. Patient agreeable to treatment plan. Catina Manuel APRN.CNP documented in this encounterOhiohealth O'[facility]06-16-2022 Nurse Note* Christy Almanzar RN - 10/04/2021 11:11 AM EDT Radiation Therapy - Nursing Note (Consult) PATIENT NAME: Fannie Avalos PATIENT October 04, 2021 [facility] FACILITY/LOCATION: [facility] Chief Complaint: gamma knife consult Reason for visit: Consult. Referring physician: Internal provider Dr Cox Subjective Data: ok Additional Data Do you want to see a Food Mobile Driver? No Are you interested in information about fertility? No Status: History of hysterectomy Stress Scale: On a scale of 0 to 10, what number best describes how much distress you have experienced in the past week?(0 being no distress and 10 being extreme distress) 2 Social work notified: Pt denied need to see social media content specialist at this time. SIGNED by: Christy Almanzar RN documented in this encounterOhiohealth O'Blen[facility]06-16-2022 History of Present illness Narrative* Ignacia Dawn MD - 10/04/2021 11:00 AM EDT Radiation Oncology - New Patient/Consult Note PATIENT NAME: Fannie Avalos PATIENT REQUESTING PROVIDER: Ignacia Dawn MD. DIAGNOSIS: 76 year old female with left parasagittal meningioma. HPI: The patient is a 76 year old female who presents with above diagnosis, for an opinion regarding the role of radiation therapy in the management of the patient's disease. Final recommendations will be communicated back to the requesting physician by way of the shared medical record, or letter to requesting physician via US mail. Ms. Fannie Avalos is a pleasant 76 year old female with history of a left parasagittal meningioma since 2018. She Initially presented with a cerebral sensation of not feeling well and concern of TIA. MRI at that time demonstrated the left parasagittal meningioma. She was referred to Dr. Lindsey who did not recommend surgery and surveillance with serial MRI scans was pursued. Dr. Cox has assumed the patient's care from Dr. Lindsey. Most recent MRI Brain w/wo contrast from [facility] on 09/03/2021 demonstrates a homogeneously enhancing dural based parafalcine mass in theleft parietal lobe measuring approximately 22 X 20 X 26 mm consistent with meningioma. No new enhancing lesions were noted and there was minimal mass effect upon the underlying parietal lobe. She has occasional right sided head sensitivity. She denies headaches, visual changes, seizures, motor or sensory difficulties. She was referred by Dr. Cox for consideration of GammaKnife radiosurgery. ALLERGIES Allergen Reactions Bactrim [Sulfametho* GI Upset nausea Clindamycin Hcl GI Upset Flagyl [Metronidazo* GI Upset Gadolinium-Containi* Hives Gadolinium/Gadavist Trimethoprim Vomiting Levofloxacin GI Upset MEDICATIONS: Biotin 10,000 mcg cap Take 1 capsule by mouth once daily. Bifidobacterium Infantis (ALIGN) 4 mg cap Take 1 capsule by mouth once daily. atorvastatin (LIPITOR) 40 mg tablet TAKE 1 TABLET EVERY DAY AT BEDTIME FOR CHOLESTEROL cholestyramine (QUESTRAN) 4 gram packet Take 1 Packet by mouth three times daily with meals. atenolol (TENORMIN) 25 mg tablet Take 1 tablet by mouth once daily. Cholecalciferol, Vitamin D3, 25 mcg (1,000 unit) cap Take 1 capsule by mouth once daily. wheat dextrin (BENEFIBER CLEAR SF, DEXTRIN, ORAL) Take 0.5 teaspoonsful by mouth once daily. VITAMIN E 200 UNIT CAP Take one(1) tablet daily. Perry-3 Fatty Acids (FISH OIL) ORAL Cap Take one(1) capsule daily. MULTIVITAMIN TAB Take one(1) tablet daily. CALCIUM + D 600 MG-200 UNIT TAB Take one(1) tablet daily. ASPIRIN 81 MG TAB Take one (1) tablet daily . 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 PAST SURGICAL HISTORY Procedure Laterality Date CHOLECYSTECTOMY HX 03/2018 COLONOSCOPY FLX DX W/COLLJ SPEC WHEN PFRMD 10/20/03 Colonoscopy COLONOSCOPY FLX DX W/COLLJ SPEC WHEN PFRMD 01/06/09 Extensive diverticulosis/hemorrhoids COLONOSCOPY FLX DX W/COLLJ SPEC WHEN PFRMD 07/24/2012 [place] COLSC FLEXIBLE W/CONTROL BLEEDING ANY METHOD 12/02/2017 laser of cecal AVM DRAIN ABDOMINAL ABSCESS, PERCUTANEOUS 12/15/2017 perianastomotic abscess EGD 12/02/2017 ESOPHAGOGASTRODUODENOSCOPY TRANSORAL DIAGNOSTIC 07/03/2012 [place] HEMORRHOIDECTOMY INT & XTRNL 2/> COLUMN/HI 10-26-2009 LAMINECTOMY W/RMVL ABNORMAL FACETS LUMBAR 07/08/2011 [place], [place] LAPAROSCOPY COLECTOMY PARTIAL W/ANASTOMOSIS 02/02/2009 LAPAROSCOPY COLECTOMY PARTIAL W/ANASTOMOSIS Right 12/03/2017 LAPS MOBLJ SPLENIC FLXR PFRMD W/PRTL COLECTOMY 02-02-09 PAST SURGICAL HISTORY OF 1963 ovarian cyst removed PAST SURGICAL HISTORY OF 2001 BREAST BIOPSY--BENIGN PAST SURGICAL HISTORY OF 03/28/2018 Gallbladder removed SIGMOIDOSCOPY FLX CONTROL BLEEDING 03/22/09 Granulation tissue at anastomosis SIGMOIDOSCOPY FLX W/BIOPSY SINGLE/MULTIPLE 02/28/11 TOTAL ABDOMINAL HYSTERECT W/WO RMVL TUBE OVARY Hysterectomy, TERI, BSO FAMILY HISTORY Problem Relation Age of Onset Breast Cancer Mother dec. age 88 Blood Disease Father PE, post MVA, dec. 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 KPS: 100 Neuro function score (NFS): NFS 0 (No neurologic symptoms; fully active at home/work without assistance) General Appearance: Alert and oriented. No acute distress. Neck: Normal ROM. No palpable cervical or supraclavicular adenopathy. Chest: No respiratory distress. Lungs clear to auscultation bilaterally. Heart: Regular rate and rhythm. Abdomen: Soft. Nontender. Nondistended. Musculoskeletal: No edema. Normal ROM in extremities. No bone or spine tenderness. Neuro: Speech fluent. CN II-XII intact. Strength intact and symmetric, 5/5 throughout. Sensation intact to light touch. Reflexes 4+/4 and symmetric. Normal gait. LISA and FNF intact. Negative Romberg.No pronator drift. Mild difficulty with tandem gait. No other focal deficits. Skin: No rashes noted Lymphatics: No palpable lymphadenopathy. Hematologic: No signs of active bleeding. RADIOLOGY/LABORATORY DATA: see HPI From Dr. Cox's notes regarding meningioma measurements on MRI: 2018 - 1.5 x 2.0 x 2.0 cm 2019 - 1.9 x 1.5 x 2.3 cm 2019 - 1.96 x 1.53 x 2.34 cm 2021 - 2.2 x 2.0 x 2.6 cm ASSESSMENT AND PLAN: Ms. Fannie Avalos is a very pleasant 76 year old female with a benign left parasagittal meningioma. The patient's history and diagnostic imaging were reviewed with the patient and her . We discussed management options including surgery, radiation therapy including GammaKnife radiosurgery or fractionated linac-based radiation, continued surveillance. The details of GKRS including the process of treatment, benefits and potential risks were explained. She is neurologically intact and essentially asymptomatic. She does not wish to pursue surgery. She would like to think over whether to undergo GKRS now or in the near future. She understands themeningioma has enlarged, and is leaning towards GKRS now, but would like to speak with her insurance prior to making her final decision. Based on the size and location of the lesion on last MRI, it is less than 3 cm, possibly less than 15 ml in volume (to be determined at time of planning), and more than 4 mm from the optic chiasm, a single session of GKRS is anticipated. She understands that if the lesion is larger at the time of planning, she may require more than 1 treatment delivered in a staged fashion. GKBENIGN: Planned dose: 14 Gy Head frame will be used. Radiosurgery will be done in a single fraction using the Gamma Knife Icon system, which uses up to 192 beams of radiation. A head CT and brain MRI will be performed the day of the procedure. The images will be co registered for target contouring and treatment planning. The CT scan is necessary to correct for the spatial distortion of the MRI. Both scans will be evaluated by a radiologist and the results will be discussed with the patient. Thank you for your referral of this pleasant patient. If you have any questions or additional suggestions regarding her management, please feel free to contact me. Signed by: Ignacia Dawn MD cc: Bernabe Cox MD [address] [facility] [id number] Gavin Tran MD [address] [place] [address] documented in this encounterOhiohealth O'[facility]len[facility]06-09-2022 Miscellaneous Notes* Telephone Encounter - Bernabe Cox MD - 09/27/2021 11:37 AM EDT I called the patient as I had promised her after I have reviewed her case with radiation oncology and neurosurgery and told her the consensus was to treat the meningioma with fractionated gamma kniferadiosurgery. I had presented her previously to Dr. Ignacia Dawn with whom I will make arrangement for her to see her and evaluate her and we will coordinate her gamma knife treatment in the very near future. Radiation oncology racing secretary will call the patient and make the appointment. documented in this encounterOhiohealth O'Blen[facility] Hospital06-09-2022 Miscellaneous Notes* Telephone Encounter - Katia Boykin APRN.CNP - 09/27/2021 11:30 AM EDT Notified Gamma Knife, Austin Winston, to please make appt. with Dr. Ignacia Dawn for discussion and evaluation for Gamma Knife Stereotactic Radiosurgery for meningioma in 5 fractions. Office will reach out and schedule an appt. KRISTI. Katia Boykin APRN-JUAN Neurosurgery Nurse Practitioner [facility] documented in this encounterOhiohealth O'Bleness [facility]05-26-2022 History of Present illness Narrative* Bernabe Cox MD - 09/13/2021 10:30 AM EDT NEUROSURGERY FOLLOW UP OFFICE NOTE Dr. Bernabe Cox MD, [facility] Date of visit: September 13, 2021 Patient Name: Ms.Marjorie Arielle Avalos Date of : 1945 Current Age: [age] year old Sex: female MRN/E# [id number] Last Office Visit: October 12, 2019 -Dr. Lindsey Chief Complaint: Patient presents with: Established Patient SUBJECTIVE: The patient presents as a follow-up with imaging (MRI B) for evaluation. She is a former patient ofDr. Lindsey who has been seen and evaluated with imaging for a known left parasagittal meningioma. This was diagnosed in September 2017 after experiencing episodes of visual changes. MRI was obtained and demonstrated this lesion for which no surgical intervention was indicated. She was last seen in September 2019 and reported that she was overall doing well. She denied headache, visual changes, speech deficits, seizure, motor or sensory deficits. Neurologically she was intact on exam. MRI was reviewed and showed that the left parasagittal meningioma was stable. No surgical intervention was indicated. Recommendation was to follow-up in 2 years with repeat imaging prompting her visit today. Since last visit she states has had episodes of right sided discomfort on her head that is transient. Otherwise she denies headache, visual changes, speech deficits, seizure activity, motor or sensory deficits. She presents for image review, evaluation and plan of care. Symptoms: mild right sided head discomfort, dizziness PREVIOUS CONSERVATIVE TREATMENTS: None PREVIOUS SURGERY: None PAIN EVALUATION No data found in the last 1 encounters. 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 CERVICAL SPONDYLOSIS 02/26/2005 Diarrhea Diverticulosis of colon 01/06/2009 Esophageal reflux Hemorrhage of rectum and anus 12/02/2017 HEMORRHOIDS NOS 11/30/2008 HYPERLIPIDEMIA NEC/NOS 03/18/2005 IBS (irritable bowel syndrome) 01/26/2013 Incontinence of feces 11/30/2008 Osteopenia Palpitations 01/13/2012 Perforation of large intestine (HCC) 12/03/2017 Spondylosis, 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 TIA (transient ischemic attack) 06/17/2017 [place], [place] PAST SURGICAL HISTORY Procedure Laterality Date CHOLECYSTECTOMY HX 03/2018 COLONOSCOPY FLX DX W/COLLJ SPEC WHEN PFRMD 10/20/03 Colonoscopy COLONOSCOPY FLX DX W/COLLJ SPEC WHEN PFRMD 01/06/09 Extensive diverticulosis/hemorrhoids COLONOSCOPY FLX DX W/COLLJ SPEC WHEN PFRMD 07/24/2012 [place] COLSC FLEXIBLE W/CONTROL BLEEDING ANY METHOD 12/02/2017 laser of cecal AVM DRAIN ABDOMINAL ABSCESS, PERCUTANEOUS 12/15/2017 perianastomotic abscess EGD 12/02/2017 ESOPHAGOGASTRODUODENOSCOPY TRANSORAL DIAGNOSTIC 07/03/2012 [place] HEMORRHOIDECTOMY INT & XTRNL 2/> COLUMN/HI 10-26-2009 LAMINECTOMY W/RMVL ABNORMAL FACETS LUMBAR 07/08/2011 [place] LAPAROSCOPY COLECTOMY PARTIAL W/ANASTOMOSIS 02/02/2009 LAPAROSCOPY COLECTOMY PARTIAL W/ANASTOMOSIS Right 12/03/2017 LAPS MOBLJ SPLENIC FLXR PFRMD W/PRTL COLECTOMY 02-02-09 PAST SURGICAL HISTORY OF 1964 ovarian cyst removed PAST SURGICAL HISTORY OF 2001 BREAST BIOPSY--BENIGN PAST SURGICAL HISTORY OF 03/28/2018 Gallbladder removed SIGMOIDOSCOPY FLX CONTROL BLEEDING 03/22/09 Granulation tissue at anastomosis SIGMOIDOSCOPY FLX W/BIOPSY SINGLE/MULTIPLE 02/28/11 TOTAL ABDOMINAL HYSTERECT W/WO RMVL TUBE OVARY Hysterectomy, TERI, BSO FAMILY HISTORY Problem Relation Age of Onset Breast Cancer Mother dec. age 88 Blood Disease Father PE, post MVA, dec. 53yo Breast Cancer Sister other (Other) Sister complications from falling Breast Cancer Sister None Sister other (multiple myeloma) Brother Alzheimer's Disease Sister ALLERGIES Allergen Reactions Bactrim [Sulfametho* GI Upset nausea Clindamycin Hcl GI Upset Flagyl [Metronidazo* GI Upset Gadolinium-Containi* Hives Gadolinium/Gadavist Trimethoprim Vomiting Levofloxacin GI Upset Current Outpatient Medications Medication Sig Dispense Refill Biotin 10,000 mcg cap Take 1 capsule by mouth once daily. atorvastatin (LIPITOR) 40 mg tablet TAKE 1 TABLET EVERY DAY AT BEDTIME FOR CHOLESTEROL 90 tablet 3 atenolol (TENORMIN) 25 mg tablet Take 1 tablet by mouth once daily. 90 tablet 3 Cholecalciferol, Vitamin D3, 25 mcg (1,000 unit) cap Take 1 capsule by mouth once daily. wheat dextrin (BENEFIBER CLEAR SF, DEXTRIN, ORAL) Take 0.5 teaspoonsful by mouth once daily. VITAMIN E 200 UNIT CAP Take one(1) tablet daily. 0 Perry-3 Fatty Acids (FISH OIL) ORAL Cap Take one(1) capsule daily. 0 MULTIVITAMIN TAB Take one(1) tablet daily. 0 CALCIUM + D 600 MG-200 UNIT TAB Take one(1) tablet daily. 0 ASPIRIN 81 MG TAB Take one (1) tablet daily . 0 Bifidobacterium Infantis (ALIGN) 4 mg cap Take 1 capsule by mouth once daily. 30 capsule 2 cholestyramine (QUESTRAN) 4 gram packet Take 1 Packet by mouth three times daily with meals. 90 Packet 2 No current facility-administered medications for this visit. REVIEW OF SYSTEMS Review of Systems Constitutional: Negative for chills, diaphoresis (Negative for night sweats.) and fever. HENT: Negative for ear discharge and rhinorrhea. Eyes: Negative for discharge. Respiratory: Negative for cough, shortness of breath and wheezing. Cardiovascular: Negative for chest pain, palpitations and leg swelling. Gastrointestinal: Negative for constipation, diarrhea, nausea and vomiting. Endocrine: Negative for cold intolerance and heat intolerance. Genitourinary: Negative for frequency. Negative for urinary incontinence and urinary retention. Musculoskeletal: Negative for back pain, joint swelling, myalgias and neck pain. Skin: Negative for rash (Negative for hives and skin lesions.). Allergic/Immunologic: Negative for environmental allergies and food allergies. Negative for contact allergy, seasonal allergies. Neurological: Negative for dizziness, seizures, syncope, weakness, light- headedness, numbness (Negative for numbness in extremities.) and headaches. Hematological: Does not bruise/bleed easily. Psychiatric/Behavioral: The patient is not nervous/anxious. Negative for depression. OBJECTIVE: BP 118/68 Pulse 77 Ht 5' 3.75 (1.62m) Wt 134 lb 7.7 oz (61.0kg) SpO2 98% BMI 23.27 kg/(m^2). PHYSICAL EXAM: Mental State : Alert, memory function unremarkable. Attention span and concentration Normal for patient's age. Recent and remote memory normal Orientation : Oriented to time place and person Higher Cortical Function : Intact speech and language. Spontaneous speech and comprehension normal.Fund of knowledge intact for pt level of education. Cranial Nerves : II: No visual field cut no blurring. Makes and sustains eye contact III, IV, normal, no double vision or drooping. Pupils equal and reactive to light. Extraocular muscles intact. No nystagmus V Normal sensation on the face, normal jaw movements VII No paresis on either side. VIII No gross hearing deficit IX Normal palatal movements XI Good and equal shoulder shrus XII Tongue midline, no fasciculation Sensory : Normal Sensation in upper and lower extremities and trunk to touch and Noxious stimuli. Motor : Normal muscle tone and bulk. No tremor or uncontrollable movements No spasticity . Strength: Upper Extremities : R L Deltoid 5 5 Biceps 5 5 Triceps 5 5 Wrist Ext 5 5 Wrist Flx 5 5 Hand Int. 5 5 Lower Extremities : Hip Flexors 5 5 Hip Extensors 5 5 Hip Abductors 5 5 Hip Adductors 5 5 Quads 5 5 Hamstrings 5 5 Ankle dorsiflex 5 5 Ankle plantars 5 5 Heel Walking 5 5 Toe Walking 5 5 Reflexes : Biceps 2 2 Triceps 2 2 Wrist 2 2 Patellar 2 2 Achilles 2 2 Weller's Neg Neg Plantars Neg Neg Cerebellar Function : Normal finger to nose and rapid alternating movements. No ataxia Gait and Station: Normal IMAGING: MRI Brain WO/W IVCON performed on 09/03/2021 at [facility] demonstrates: Impression: Compared to MRI on 09/28/2019 1. Slight enlargement of the left parafalcine meningioma. 2. Chronic involutional changes of the brain. 2018 - 1.5 x 2.0 x 2.0 cm 2018 - 1.9 x 1.5 x 2.3 cm 2019 - 1.96 x 1.53 x 2.34 cm 2021 - 2.2 x 2.0 x 2.6 cm ASSESSMENT/PLAN: 1. Benign meningioma of brain (HCC) - ICD9: 225.2, ICD10: D32.0 (primary diagnosis) This is my first encounter with this patient who had been previously followed by Dr. Lindsey for an asymptomatic meningioma of the parietal lower falx and the interhemispheric fissure projecting towards the left side. Upon review of her scans it is evident that between 2017 and 2021 that has beenan increase of about 6 to 7mm in maximum diameter in this lesion. Patient is asymptomatic and what s he had previously described as symptoms of possible TIAs have not recurred. That was the time when a scan showed this asymptomatic meningioma. She is in good health at this time. I had a long discussion with her and her about the fact that this lesion had increased in size and it is time that we address a treatment protocol. As this has increased in size I recommend some form of treatmentbut short of a craniotomy for excision because of risks and side effects. I think she would be a good candidate for gamma knife treatment but I will discuss her case in tumor board and ask radiation oncologist about dosage issues and fractionation so that we reduce the chance of having radionecrosis and edema of the left hemisphere. I told her about all this and we will reconvene and have a conference with her and her about our proposal for treatment and then leave it up to her to decide if she wants to proceed or not. 2. Benign neoplasm of meninges (HCC) - ICD9: 225.2, ICD10: D32.9 Bernabe Cox MD Follow Up: Return for discussion of treatment options follwoing tumor board. This note was partially generated using MiniTime voice recognition system, and there may be some incorrect words, spellings, and punctuation that were not noted in checking the note before saving. documented in this encounterOhiohealth [facility]04-[facility] Miscellaneous Notes* Telephone Encounter - Karen Guzmán Monet - 08/14/2021 9:44 AM EDT Obtained auth for MRI and called [facility] to schedule per patient's request. Radha, in central scheduling, asked that I fax the order and authorization to [phone]. They will contact patient to schedule once they receive that information. I called and explained this to patient. She agreed to call me once she is scheduled so we can schedule her follow up with Dr. Cox. She also requested a prescription for Valium for the MRI as well. documented in this encounterOhio[facility]11-09-2021 Miscellaneous Notes* Telephone Encounter - Ellen Oates LPN - 02/27/2021 8:38 AM EST Phone call placed patient notified (see prior encounter) Ellen Oates LPN documented in this encounterOhiohealth O[facility]08-07-2019 History of Past illness Narrative* Problem Noted Date Resolved Date Muscle weakness 11/25/2018 05/14/2019 Carotid disease, bilateral 01/03/201605/14 Rectocele 03/02/2013 10/04/2013 Anal fissure 03/07/2011 02/08/2014 Enthesopathy of hip region 02/04/201101/12 Spondylosis, 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 Xray 11/2009 Rectal bleeding 03/09/2009 01/13/2012 Diverticulosis of colon 01/06/2009 01/01/20 17 Overview: colonoscopy 07/2012 Last Assessment & Plan: colonoscopy 07/2012 throughout with diverticula. Incontinence of feces 11/30/2008 12/07/2009 Unspecified hemorrhoids without mention of compl ication 11/30/2008 10/04/2013 Anxiety state, unspecified 01/15/200701/12 Chest pain, unspecified 12/03/2005 12/08/19 10 Other malaise and fatigue 12/03/20052009 Cervical spondylosis without myelopathy 02/27/20 05 10/04/2013 Diarrhea 02/08/2014 documented as of this encounter (statuses as of 08/14/2021) [facility] of Past illness Narrative* Problem Noted Date Resolved Date Muscle weakness 11/25/2018 05/14/2019 Carotid disease, bilateral 01/03/201605/14 Rectocele 03/02/2013 10/04/2013 Anal fissure 03/07/2011 02/08/2014 Enthesopathy of hip region 02/04/201101/12 Spondylosis, 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 Xray 11/2009 Rectal bleeding 03/09/2009 01/13/2012 Diverticulosis of colon 01/06/2009 01/01/20 17 Overview: colonoscopy 07/2012 Last Assessment & Plan: colonoscopy 07/2012 throughout with diverticula. Incontinence of feces 11/30/2008 12/07/2009 Unspecified hemorrhoids without mention of compl ication 11/30/2008 10/04/2013 Anxiety state, unspecified 01/15/200701/12 Chest pain, unspecified 12/03/2005 12/08/19 10 Other malaise and fatigue 12/03/20052009 Cervical spondylosis without myelopathy 02/27/2010/04/2013 Diarrhea 02/08/2014 documented as of this encounter (statuses as of 08/23/2021) [facility] of [facility] illness Narrative* Problem Noted Date Resolved Date Muscle weakness 11/25/2018 05/14/2019 Carotid disease, bilateral 01/03/201605/14 Rectocele 03/02/2013 10/04/2013 Anal fissure 03/07/2011 02/08/2014 Enthesopathy of hip region 02/04/201101/12 Spondylosis, 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 Xray 11/2009 Rectal bleeding 03/09/2009 01/13/2012 Diverticulosis of colon 01/06/2009 01/01/20 17 Overview: colonoscopy 07/2012 Last Assessment & Plan: colonoscopy 07/2012 throughout with diverticula. Incontinence of feces 11/30/2008 12/07/2009 Unspecified hemorrhoids without mention of compl ication 11/30/2008 10/04/2013 Anxiety state, unspecified 01/15/200701/12 Chest pain, unspecified 12/03/2005 12/08/19 10 Other malaise and fatigue 12/03/20052009 Cervical spondylosis without myelopathy 02/27/20 05 10/04/2013 Diarrhea 02/08/2014 documented as of this encounter (statuses as of 08/30/2021) [facility] Narrative* Problem Noted Date Resolved Date Muscle weakness 11/25/2018 05/14/2019 Carotid disease, bilateral 01/03/201605/14 Rectocele 03/02/2013 10/04/2013 Anal fissure 03/07/2011 02/08/2014 Enthesopathy of hip region 02/04/201101/12 Spondylosis, 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 Xray 11/2009 Rectal bleeding 03/09/2009 01/13/2012 Diverticulosis of colon 01/06/2009 01/01/20 17 Overview: colonoscopy 07/2012 Last Assessment & Plan: colonoscopy 07/2012 throughout with diverticula. Incontinence of feces 11/30/2008 12/07/2009 Unspecified hemorrhoids without mention of compl ication 11/30/2008 10/04/2013 Anxiety state, unspecified 01/15/200701/12 Chest pain, unspecified 12/03/2005 12/08/19 10 Other malaise and fatigue 12/03/20052009 Cervical spondylosis without myelopathy 02/27/20 05 10/04/2013 Diarrhea 02/08/2014 documented as of this encounter (statuses as of 09/13/2021) [facility] Narrative* Problem Noted Date Resolved Date Muscle weakness 11/25/2018 05/14/2019 Carotid disease, bilateral 01/03/201605/14 Rectocele 03/02/2013 10/04/2013 Anal fissure 03/07/2011 02/08/2014 Enthesopathy of hip region 02/04/201101/12 Spondylosis, 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 Xray 11/2009 Rectal bleeding 03/09/2009 01/13/2012 Diverticulosis of colon 01/06/2009 01/01/20 17 Overview: colonoscopy 07/2012 Last Assessment & Plan: colonoscopy 07/2012 throughout with diverticula. Incontinence of feces 11/30/2008 12/07/2009 Unspecified hemorrhoids without mention of compl ication 11/30/2008 10/04/2013 Anxiety state, unspecified 01/15/200701/12 Chest pain, unspecified 12/03/2005 12/08/19 10 Other malaise and fatigue 12/03/20052009 Cervical spondylosis without myelopathy 02/27/20 05 10/04/2013 Diarrhea 02/08/2014 documented as of this encounter (statuses as of 09/25/2021) [facility] Narrative* Problem Noted Date Resolved Date Muscle weakness 11/25/2018 05/14/2019 Carotid disease, bilateral 01/03/201605/14 Rectocele 03/02/2013 10/04/2013 Anal fissure 03/07/2011 02/08/2014 Enthesopathy of hip region 02/04/201101/12 Spondylosis, 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 Xray 11/2009 Rectal bleeding 03/09/2009 01/13/2012 Diverticulosis of colon 01/06/2009 01/01/20 17 Overview: colonoscopy 07/2012 Last Assessment & Plan: colonoscopy 07/2012 throughout with diverticula. Incontinence of feces 11/30/2008 12/07/2009 Unspecified hemorrhoids without mention of compl ication 11/30/2008 10/04/2013 Anxiety state, unspecified 01/15/200701/12 Chest pain, unspecified 12/03/2005 12/08/19 10 Other malaise and fatigue 12/03/20052009 Cervical spondylosis without myelopathy 02/27/20 05 10/04/2013 Diarrhea 02/08/2014 documented as of this encounter (statuses as of 09/27/2021) [facility] Narrative* Problem Noted Date Resolved Date Muscle weakness 11/25/2018 05/14/2019 Carotid disease, bilateral 01/03/201605/14 Rectocele 03/02/2013 10/04/2013 Anal fissure 03/07/2011 02/08/2014 Enthesopathy of hip region 02/04/201101/12 Spondylosis, 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 Xray 11/2009 Rectal bleeding 03/09/2009 01/13/2012 Diverticulosis of colon 01/06/2009 01/01/20 17 Overview: colonoscopy 07/2012 Last Assessment & Plan: colonoscopy 07/2012 throughout with diverticula. Incontinence of feces 11/30/2008 12/07/2009 Unspecified hemorrhoids without mention of compl ication 11/30/2008 10/04/2013 Anxiety state, unspecified 01/15/200701/12 Chest pain, unspecified 12/03/2005 12/08/19 10 Other malaise and fatigue 12/03/20052009 Cervical spondylosis without myelopathy 02/27/20 05 10/04/2013 Diarrhea 02/08/2014 documented as of this encounter (statuses as of 10/04/2021) [facility] Narrative* Problem Noted Date Resolved Date Muscle weakness 11/25/2018 05/14/2019 Carotid disease, bilateral 01/03/201605/14 Rectocele 03/02/2013 10/04/2013 Anal fissure 03/07/2011 02/08/2014 Enthesopathy of hip region 02/04/201101/12 Spondylosis, 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 Xray 11/2009 Rectal bleeding 03/09/2009 01/13/2012 Diverticulosis of colon 01/06/2009 01/01/20 17 Overview: colonoscopy 07/2012 Last Assessment & Plan: colonoscopy 07/2012 throughout with diverticula. Incontinence of feces 11/30/2008 12/07/2009 Unspecified hemorrhoids without mention of compl ication 11/30/2008 10/04/2013 Anxiety state, unspecified 01/15/200701/12 Chest pain, unspecified 12/03/2005 12/08/19 10 Other malaise and fatigue 12/03/20052009 Cervical spondylosis without myelopathy 02/27/20 05 10/04/2013 Diarrhea 02/08/2014 documented as of this encounter (statuses as of 10/24/2021) [facility] Narrative* Problem Noted Date Resolved Date Muscle weakness 11/25/2018 05/14/2019 Carotid disease, bilateral 01/03/201605/14 Rectocele 03/02/2013 10/04/2013 Anal fissure 03/07/2011 02/08/2014 Enthesopathy of hip region 02/04/201101/12 Spondylosis, 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 Xray 11/2009 Rectal bleeding 03/09/2009 01/13/2012 Diverticulosis of colon 01/06/2009 01/01/20 17 Overview: colonoscopy 07/2012 Last Assessment & Plan: colonoscopy 07/2012 throughout with diverticula. Incontinence of feces 11/30/2008 12/07/2009 Unspecified hemorrhoids without mention of compl ication 11/30/2008 10/04/2013 Anxiety state, unspecified 01/15/200701/12 Chest pain, unspecified 12/03/2005 12/08/19 10 Other malaise and fatigue 12/03/20052009 Cervical spondylosis without myelopathy 02/27/20 05 10/04/2013 Diarrhea 02/08/2014 documented as of this encounter (statuses as of 10/26/2021) [facility] Narrative* Problem Noted Date Resolved Date Muscle weakness 11/25/2018 05/14/2019 Carotid disease, bilateral 01/03/201605/14 Rectocele 03/02/2013 10/04/2013 Anal fissure 03/07/2011 02/08/2014 Enthesopathy of hip region 02/04/201101/12 Spondylosis, 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 Xray 11/2009 Rectal bleeding 03/09/2009 01/13/2012 Diverticulosis of colon 01/06/2009 01/01/20 17 Overview: colonoscopy 07/2012 Last Assessment & Plan: colonoscopy 07/2012 throughout with diverticula. Incontinence of feces 11/30/2008 12/07/2009 Unspecified hemorrhoids without mention of compl ication 11/30/2008 10/04/2013 Anxiety state, unspecified 01/15/200701/12 Chest pain, unspecified 12/03/2005 12/08/19 10 Other malaise and fatigue 12/03/20052009 Cervical spondylosis without myelopathy 02/27/20 05 10/04/2013 Diarrhea 02/08/2014 documented as of this encounter (statuses as of 11/05/2021) [facility] Narrative* Problem Noted Date Resolved Date Muscle weakness 11/25/2018 05/14/2019 Carotid disease, bilateral 01/03/201605/14 Rectocele 03/02/2013 10/04/2013 Anal fissure 03/07/2011 02/08/2014 Enthesopathy of hip region 02/04/201101/12 Spondylosis, 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 Xray 11/2009 Rectal bleeding 03/09/2009 01/13/2012 Diverticulosis of colon 01/06/2009 01/01/20 17 Overview: colonoscopy 07/2012 Last Assessment & Plan: colonoscopy 07/2012 throughout with diverticula. Incontinence of feces 11/30/2008 12/07/2009 Unspecified hemorrhoids without mention of compl ication 11/30/2008 10/04/2013 Anxiety state, unspecified 01/15/200701/12 Chest pain, unspecified 12/03/2005 12/08/19 10 Other malaise and fatigue 12/03/20052009 Cervical spondylosis without myelopathy 02/27/20 05 10/04/2013 Diarrhea 02/08/2014 documented as of this encounter (statuses as of 11/08/2021) [facility]arrative* Problem Noted Date Resolved Date Muscle weakness 11/25/2018 05/14/2019 Carotid disease, bilateral 01/03/201605/14 Rectocele 03/02/2013 10/04/2013 Anal fissure 03/07/2011 02/08/2014 Enthesopathy of hip region 02/04/201101/12 Spondylosis, 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 Xray 11/2009 Rectal bleeding 03/09/2009 01/13/2012 Diverticulosis of colon 01/06/2009 01/01/20 17 Overview: colonoscopy 07/2012 Last Assessment & Plan: colonoscopy 07/2012 throughout with diverticula. Incontinence of feces 11/30/2008 12/07/2009 Unspecified hemorrhoids without mention of compl ication 11/30/2008 10/04/2013 Anxiety state, unspecified 01/15/200701/12 Chest pain, unspecified 12/03/2005 12/08/19 10 Other malaise and fatigue 12/03/20052009 Cervical spondylosis without myelopathy 02/27/20 05 10/04/2013 Diarrhea 02/08/2014 documented as of this encounter (statuses as of 11/09/2021) [facility]ative* Problem Noted Date Resolved Date Muscle weakness 11/25/2018 05/14/2019 Carotid disease, bilateral 01/03/201605/14 Rectocele 03/02/2013 10/04/2013 Anal fissure 03/07/2011 02/08/2014 Enthesopathy of hip region 02/04/201101/12 Spondylosis, 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 Xray 11/2009 Rectal bleeding 03/09/2009 01/13/2012 Diverticulosis of colon 01/06/2009 01/01/20 17 Overview: colonoscopy 07/2012 Last Assessment & Plan: colonoscopy 07/2012 throughout with diverticula. Incontinence of feces 11/30/2008 12/07/2009 Unspecified hemorrhoids without mention of compl ication 11/30/2008 10/04/2013 Anxiety state, unspecified 01/15/200701/12 Chest pain, unspecified 12/03/2005 12/08/19 10 Other malaise and fatigue 12/03/20052009 Cervical spondylosis without myelopathy 02/27/20 05 10/04/2013 Diarrhea 02/08/2014 documented as of this encounter (statuses as of 11/13/2021) [facility]* Problem Noted Date Resolved Date Muscle weakness 11/25/2018 05/14/2019 Carotid disease, bilateral 01/03/201605/14 Rectocele 03/02/2013 10/04/2013 Anal fissure 03/07/2011 02/08/2014 Enthesopathy of hip region 02/04/201101/12 Spondylosis, 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 Xray 11/2009 Rectal bleeding 03/09/2009 01/13/2012 Diverticulosis of colon 01/06/2009 01/01/20 17 Overview: colonoscopy 07/2012 Last Assessment & Plan: colonoscopy 07/2012 throughout with diverticula. Incontinence of feces 11/30/2008 12/07/2009 Unspecified hemorrhoids without mention of compl ication 11/30/2008 10/04/2013 Anxiety state, unspecified 01/15/200701/12 Chest pain, unspecified 12/03/2005 12/08/19 10 Other malaise and fatigue 12/03/20052009 Cervical spondylosis without myelopathy 02/27/20 05 10/04/2013 Diarrhea 02/08/2014 documented as of this encounter (statuses as of 11/13/2021) [facility]arr[facility]* Problem Noted Date Resolved Date Muscle weakness 11/25/2018 05/14/2019 Carotid disease, bilateral 01/03/201605/14 Rectocele 03/02/2013 10/04/2013 Anal fissure 03/07/2011 02/08/2014 Enthesopathy of hip region 02/04/201101/12 Spondylosis, 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 Xray 11/2009 Rectal bleeding 03/09/2009 01/13/2012 Diverticulosis of colon 01/06/2009 01/01/20 17 Overview: colonoscopy 07/2012 Last Assessment & Plan: colonoscopy 07/2012 throughout with diverticula. Incontinence of feces 11/30/2008 12/07/2009 Unspecified hemorrhoids without mention of compl ication 11/30/2008 10/04/2013 Anxiety state, unspecified 01/15/200701/12 Chest pain, unspecified 12/03/2005 12/08/19 10 Other malaise and fatigue 12/03/20052009 Cervical spondylosis without myelopathy 02/27/20 05 10/04/2013 Diarrhea 02/08/2014 documented as of this encounter (statuses as of 11/22/2021) [facility]* Problem Noted Date Resolved Date Muscle weakness 11/25/2018 05/14/2019 Carotid disease, bilateral 01/03/201605/14 Rectocele 03/02/2013 10/04/2013 Anal fissure 03/07/2011 02/08/2014 Enthesopathy of hip region 02/04/201101/12 Spondylosis, 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 Xray 11/2009 Rectal bleeding 03/09/2009 01/13/2012 Diverticulosis of colon 01/06/2009 01/01/20 17 Overview: colonoscopy 07/2012 Last Assessment & Plan: colonoscopy 07/2012 throughout with diverticula. Incontinence of feces 11/30/2008 12/07/2009 Unspecified hemorrhoids without mention of compl ication 11/30/2008 10/04/2013 Anxiety state, unspecified 01/15/200701/12 Chest pain, unspecified 12/03/2005 12/08/19 10 Other malaise and fatigue 12/03/20052009 Cervical spondylosis without myelopathy 02/27/20 05 10/04/2013 Diarrhea 02/08/2014 documented as of this encounter (statuses as of 11/26/2021) [facility]arrative* Problem Noted Date Resolved Date Muscle weakness 11/25/2018 05/14/2019 Carotid disease, bilateral 01/03/201605/14 Rectocele 03/02/2013 10/04/2013 Anal fissure 03/07/2011 02/08/2014 Enthesopathy of hip region 02/04/201101/12 Spondylosis, 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 Xray 11/2009 Rectal bleeding 03/09/2009 01/13/2012 Diverticulosis of colon 01/06/2009 01/01/20 17 Overview: colonoscopy 07/2012 Last Assessment & Plan: colonoscopy 07/2012 throughout with diverticula. Incontinence of feces 11/30/2008 12/07/2009 Unspecified hemorrhoids without mention of compl ication 11/30/2008 10/04/2013 Anxiety state, unspecified 01/15/200701/12 Chest pain, unspecified 12/03/2005 12/08/19 10 Other malaise and fatigue 12/03/20052009 Cervical spondylosis without myelopathy 02/27/20 05 10/04/2013 Diarrhea 02/08/2014 documented as of this encounter (statuses as of 11/29/2021) [facility] History of Past illness Narrative* Problem Noted Date Resolved Date Muscle weakness 11/25/2018 05/14/2019 Carotid disease, bilateral 01/03/201605/14 Rectocele 03/02/2013 10/04/2013 Anal fissure 03/07/2011 02/08/2014 Enthesopathy of hip region 02/04/201101/12 Spondylosis, 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 Xray 11/2009 Rectal bleeding 03/09/2009 01/13/2012 Diverticulosis of colon 01/06/2009 01/01/20 17 Overview: colonoscopy 07/2012 Last Assessment & Plan: colonoscopy 07/2012 throughout with diverticula. Incontinence of feces 11/30/2008 12/07/2009 Unspecified hemorrhoids without mention of compl ication 11/30/2008 10/04/2013 Anxiety state, unspecified 01/15/200701/12 Chest pain, unspecified 12/03/2005 12/08/19 10 Other malaise and fatigue 12/03/20052009 Cervical spondylosis without myelopathy 02/27/20 05 10/04/2013 Diarrhea 02/08/2014 documented as of this encounter (statuses as of 12/04/2021) [facility] History of Past illness Narrative* Problem Noted Date Resolved Date Muscle weakness 11/25/2018 05/14/2019 Carotid disease, bilateral 01/03/201605/14 Rectocele 03/02/2013 10/04/2013 Anal fissure 03/07/2011 02/08/2014 Enthesopathy of hip region 02/04/201101/12 Spondylosis, 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 Xray 11/2009 Rectal bleeding 03/09/2009 01/13/2012 Diverticulosis of colon 01/06/2009 01/01/20 17 Overview: colonoscopy 07/2012 Last Assessment & Plan: colonoscopy 07/2012 throughout with diverticula. Incontinence of feces 11/30/2008 12/07/2009 Unspecified hemorrhoids without mention of compl ication 11/30/2008 10/04/2013 Anxiety state, unspecified 01/15/200701/12 Chest pain, unspecified 12/03/2005 12/08/19 10 Other malaise and fatigue 12/03/20052009 Cervical spondylosis without myelopathy 02/27/20 05 10/04/2013 Diarrhea 02/08/2014 documented as of this encounter (statuses as of 12/11/2021) [facility] History of Past illness Narrative* Problem Noted Date Resolved Date Muscle weakness 11/25/2018 05/14/2019 Carotid disease, bilateral 01/03/201605/14 Rectocele 03/02/2013 10/04/2013 Anal fissure 03/07/2011 02/08/2014 Enthesopathy of hip region 02/04/201101/12 Spondylosis, 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 Xray 11/2009 Rectal bleeding 03/09/2009 01/13/2012 Diverticulosis of colon 01/06/2009 01/01/20 17 Overview: colonoscopy 07/2012 Last Assessment & Plan: colonoscopy 07/2012 throughout with diverticula. Incontinence of feces 11/30/2008 12/07/2009 Unspecified hemorrhoids without mention of compl ication 11/30/2008 10/04/2013 Anxiety state, unspecified 01/15/200701/12 Chest pain, unspecified 12/03/2005 12/08/19 10 Other malaise and fatigue 12/03/20052009 Cervical spondylosis without myelopathy 02/27/20 05 10/04/2013 Diarrhea 02/08/2014 documented as of this encounter (statuses as of 12/25/2021) [facility] History of Past illness Narrative* Problem Noted Date Resolved Date Muscle weakness 11/25/2018 05/14/2019 Carotid disease, bilateral 01/03/201605/14 Rectocele 03/02/2013 10/04/2013 Anal fissure 03/07/2011 02/08/2014 Enthesopathy of hip region 02/04/201101/12 Spondylosis, 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 Xray 11/2009 Rectal bleeding 03/09/2009 01/13/2012 Diverticulosis of colon 01/06/2009 01/01/20 17 Overview: colonoscopy 07/2012 Last Assessment & Plan: colonoscopy 07/2012 throughout with diverticula. Incontinence of feces 11/30/2008 12/07/2009 Unspecified hemorrhoids without mention of compl ication 11/30/2008 10/04/2013 Anxiety state, unspecified 01/15/200701/12 Chest pain, unspecified 12/03/2005 12/08/19 10 Other malaise and fatigue 12/03/20052009 Cervical spondylosis without myelopathy 02/27/20 05 10/04/2013 Diarrhea 02/08/2014 documented as of this encounter (statuses as of 01/10/2022) [facility] History of Past illness Narrative* Problem Noted Date Resolved Date Muscle weakness 11/25/2018 05/14/2019 Carotid disease, bilateral 01/03/201605/14 Rectocele 03/02/2013 10/04/2013 Anal fissure 03/07/2011 02/08/2014 Enthesopathy of hip region 02/04/201101/12 Spondylosis, 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 Xray 11/2009 Rectal bleeding 03/09/2009 01/13/2012 Diverticulosis of colon 01/06/2009 01/01/20 17 Overview: colonoscopy 07/2012 Last Assessment & Plan: colonoscopy 07/2012 throughout with diverticula. Incontinence of feces 11/30/2008 12/07/2009 Unspecified hemorrhoids without mention of compl ication 11/30/2008 10/04/2013 Anxiety state, unspecified 01/15/200701/12 Chest pain, unspecified 12/03/2005 12/08/19 10 Other malaise and fatigue 12/03/20052009 Cervical spondylosis without myelopathy 02/27/20 05 10/04/2013 Diarrhea 02/08/2014 documented as of this encounter (statuses as of 01/15/2022) [facility] History of Past illness Narrative* Problem Noted Date Resolved Date Muscle weakness 11/25/2018 05/14/2019 Carotid disease, bilateral 01/03/201605/14 Rectocele 03/02/2013 10/04/2013 Anal fissure 03/07/2011 02/08/2014 Enthesopathy of hip region 02/04/201101/12 Spondylosis, 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 Xray 11/2009 Rectal bleeding 03/09/2009 01/13/2012 Diverticulosis of colon 01/06/2009 01/01/20 17 Overview: colonoscopy 07/2012 Last Assessment & Plan: colonoscopy 07/2012 throughout with diverticula. Incontinence of feces 11/30/2008 12/07/2009 Unspecified hemorrhoids without mention of compl ication 11/30/2008 10/04/2013 Anxiety state, unspecified 01/15/200701/12 Chest pain, unspecified 12/03/2005 12/08/19 10 Other malaise and fatigue 12/03/20052009 Cervical spondylosis without myelopathy 02/27/20 05 10/04/2013 Diarrhea 02/08/2014 documented as of this encounter (statuses as of 01/15/2022) [facility] History of Past illness Narrative* Problem Noted Date Resolved Date Muscle weakness 11/25/2018 05/14/2019 Carotid disease, bilateral 01/03/201605/14 Rectocele 03/02/2013 10/04/2013 Anal fissure 03/07/2011 02/08/2014 Enthesopathy of hip region 02/04/201101/12 Spondylosis, 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 Xray 11/2009 Rectal bleeding 03/09/2009 01/13/2012 Diverticulosis of colon 01/06/2009 01/01/20 17 Overview: colonoscopy 07/2012 Last Assessment & Plan: colonoscopy 07/2012 throughout with diverticula. Incontinence of feces 11/30/2008 12/07/2009 Unspecified hemorrhoids without mention of compl ication 11/30/2008 10/04/2013 Anxiety state, unspecified 01/15/200701/12 Chest pain, unspecified 12/03/2005 12/08/19 10 Other malaise and fatigue 12/03/20052009 Cervical spondylosis without myelopathy 02/27/20 05 10/04/2013 Diarrhea 02/08/2014 documented as of this encounter (statuses as of 01/16/2022) [facility] History of Past illness Narrative* Problem Noted Date Resolved Date Muscle weakness 11/25/2018 05/14/2019 Carotid disease, bilateral 01/03/201605/14 Rectocele 03/02/2013 10/04/2013 Anal fissure 03/07/2011 02/08/2014 Enthesopathy of hip region 02/04/201101/12 Spondylosis, 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 Xray 11/2009 Rectal bleeding 03/09/2009 01/13/2012 Diverticulosis of colon 01/06/2009 01/01/20 17 Overview: colonoscopy 07/2012 Last Assessment & Plan: colonoscopy 07/2012 throughout with diverticula. Incontinence of feces 11/30/2008 12/07/2009 Unspecified hemorrhoids without mention of compl ication 11/30/2008 10/04/2013 Anxiety state, unspecified 01/15/200701/12 Chest pain, unspecified 12/03/2005 12/08/19 10 Other malaise and fatigue 12/03/20052009 Cervical spondylosis without myelopathy 02/27/20 05 10/04/2013 Diarrhea 02/08/2014 documented as of this encounter (statuses as of 01/16/2022) [facility] History of Past illness Narrative* Problem Noted Date Resolved Date Muscle weakness 11/25/2018 05/14/2019 Carotid disease, bilateral 01/03/201605/14 Rectocele 03/02/2013 10/04/2013 Anal fissure 03/07/2011 02/08/2014 Enthesopathy of hip region 02/04/201101/12 Spondylosis, 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 Xray 11/2009 Rectal bleeding 03/09/2009 01/13/2012 Diverticulosis of colon 01/06/2009 01/01/20 17 Overview: colonoscopy 07/2012 Last Assessment & Plan: colonoscopy 07/2012 throughout with diverticula. Incontinence of feces 11/30/2008 12/07/2009 Unspecified hemorrhoids without mention of compl ication 11/30/2008 10/04/2013 Anxiety state, unspecified 01/15/200701/12 Chest pain, unspecified 12/03/2005 12/08/19 10 Other malaise and fatigue 12/03/20052009 Cervical spondylosis without myelopathy 02/27/20 05 10/04/2013 Diarrhea 02/08/2014 documented as of this encounter (statuses as of 01/16/2022) [facility] History of Past illness Narrative* Problem Noted Date Resolved Date Muscle weakness 11/25/2018 05/14/2019 Carotid disease, bilateral 01/03/201605/14 Rectocele 03/02/2013 10/04/2013 Anal fissure 03/07/2011 02/08/2014 Enthesopathy of hip region 02/04/201101/12 Spondylosis, 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 Xray 11/2009 Rectal bleeding 03/09/2009 01/13/2012 Diverticulosis of colon 01/06/2009 01/01/20 17 Overview: colonoscopy 07/2012 Last Assessment & Plan: colonoscopy 07/2012 throughout with diverticula. Incontinence of feces 11/30/2008 12/07/2009 Unspecified hemorrhoids without mention of compl ication 11/30/2008 10/04/2013 Anxiety state, unspecified 01/15/200701/12 Chest pain, unspecified 12/03/2005 12/08/19 10 Other malaise and fatigue 12/03/20052009 Cervical spondylosis without myelopathy 02/27/20 05 10/04/2013 Diarrhea 02/08/2014 documented as of this encounter (statuses as of 01/17/2022) [facility] History of Past illness Narrative* Problem Noted Date Resolved Date Muscle weakness 11/25/2018 05/14/2019 Carotid disease, bilateral 01/03/201605/14 Rectocele 03/02/2013 10/04/2013 Anal fissure 03/07/2011 02/08/2014 Enthesopathy of hip region 02/04/201101/12 Spondylosis, 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 Xray 11/2009 Rectal bleeding 03/09/2009 01/13/2012 Diverticulosis of colon 01/06/2009 01/01/20 17 Overview: colonoscopy 07/2012 Last Assessment & Plan: colonoscopy 07/2012 throughout with diverticula. Incontinence of feces 11/30/2008 12/07/2009 Unspecified hemorrhoids without mention of compl ication 11/30/2008 10/04/2013 Anxiety state, unspecified 01/15/200701/12 Chest pain, unspecified 12/03/2005 12/08/19 10 Other malaise and fatigue 12/03/20052009 Cervical spondylosis without myelopathy 02/27/20 05 10/04/2013 Diarrhea 02/08/2014 documented as of this encounter (statuses as of 01/17/2022) [facility] History of Past illness Narrative* Problem Noted Date Resolved Date Muscle weakness 11/25/2018 05/14/2019 Carotid disease, bilateral 01/03/201605/14 Rectocele 03/02/2013 10/04/2013 Anal fissure 03/07/2011 02/08/2014 Enthesopathy of hip region 02/04/201101/12 Spondylosis, 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 Xray 11/2009 Rectal bleeding 03/09/2009 01/13/2012 Diverticulosis of colon 01/06/2009 01/01/20 17 Overview: colonoscopy 07/2012 Last Assessment & Plan: colonoscopy 07/2012 throughout with diverticula. Incontinence of feces 11/30/2008 12/07/2009 Unspecified hemorrhoids without mention of compl ication 11/30/2008 10/04/2013 Anxiety state, unspecified 01/15/200701/12 Chest pain, unspecified 12/03/2005 12/08/19 10 Other malaise and fatigue 12/03/20052009 Cervical spondylosis without myelopathy 02/27/20 05 10/04/2013 Diarrhea 02/08/2014 documented as of this encounter (statuses as of 01/17/2022) [facility] History of Past illness Narrative* Problem Noted Date Resolved Date Muscle weakness 11/25/2018 05/14/2019 Carotid disease, bilateral 01/03/201605/14 Rectocele 03/02/2013 10/04/2013 Anal fissure 03/07/2011 02/08/2014 Enthesopathy of hip region 02/04/201101/12 Spondylosis, 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 Xray 11/2009 Rectal bleeding 03/09/2009 01/13/2012 Diverticulosis of colon 01/06/2009 01/01/20 17 Overview: colonoscopy 07/2012 Last Assessment & Plan: colonoscopy 07/2012 throughout with diverticula. Incontinence of feces 11/30/2008 12/07/2009 Unspecified hemorrhoids without mention of compl ication 11/30/2008 10/04/2013 Anxiety state, unspecified 01/15/200701/12 Chest pain, unspecified 12/03/2005 12/08/19 10 Other malaise and fatigue 12/03/20052009 Cervical spondylosis without myelopathy 02/27/20 05 10/04/2013 Diarrhea 02/08/2014 documented as of this encounter (statuses as of 01/21/2022) [facility] History of Past illness Narrative* Problem Noted Date Resolved Date Muscle weakness 11/25/2018 05/14/2019 Carotid disease, bilateral 01/03/201605/14 Rectocele 03/02/2013 10/04/2013 Anal fissure 03/07/2011 02/08/2014 Enthesopathy of hip region 02/04/201101/12 Spondylosis, 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 Xray 11/2009 Rectal bleeding 03/09/2009 01/13/2012 Diverticulosis of colon 01/06/2009 01/01/20 17 Overview: colonoscopy 07/2012 Last Assessment & Plan: colonoscopy 07/2012 throughout with diverticula. Incontinence of feces 11/30/2008 12/07/2009 Unspecified hemorrhoids without mention of compl ication 11/30/2008 10/04/2013 Anxiety state, unspecified 01/15/200701/12 Chest pain, unspecified 12/03/2005 12/08/19 10 Other malaise and fatigue 12/03/20052009 Cervical spondylosis without myelopathy 02/27/20 05 10/04/2013 Diarrhea 02/08/2014 documented as of this encounter (statuses as of 01/24/2022) [facility] History of Past illness Narrative* Problem Noted Date Resolved Date Muscle weakness 11/25/2018 05/14/2019 Carotid disease, bilateral 01/03/201605/14 Rectocele 03/02/2013 10/04/2013 Anal fissure 03/07/2011 02/08/2014 Enthesopathy of hip region 02/04/201101/12 Spondylosis, 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 Xray 11/2009 Rectal bleeding 03/09/2009 01/13/2012 Diverticulosis of colon 01/06/2009 01/01/20 17 Overview: colonoscopy 07/2012 Last Assessment & Plan: colonoscopy 07/2012 throughout with diverticula. Incontinence of feces 11/30/2008 12/07/2009 Unspecified hemorrhoids without mention of compl ication 11/30/2008 10/04/2013 Anxiety state, unspecified 01/15/200701/12 Chest pain, unspecified 12/03/2005 12/08/19 10 Other malaise and fatigue 12/03/20052009 Cervical spondylosis without myelopathy 02/27/20 05 10/04/2013 Diarrhea 02/08/2014 documented as of this encounter (statuses as of 01/29/2022) [facility] History of Past illness Narrative* Problem Noted Date Resolved Date Muscle weakness 11/25/2018 05/14/2019 Carotid disease, bilateral 01/03/201605/14 Rectocele 03/02/2013 10/04/2013 Anal fissure 03/07/2011 02/08/2014 Enthesopathy of hip region 02/04/201101/12 Spondylosis, 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 Xray 11/2009 Rectal bleeding 03/09/2009 01/13/2012 Diverticulosis of colon 01/06/2009 01/01/20 17 Overview: colonoscopy 07/2012 Last Assessment & Plan: colonoscopy 07/2012 throughout with diverticula. Incontinence of feces 11/30/2008 12/07/2009 Unspecified hemorrhoids without mention of compl ication 11/30/2008 10/04/2013 Anxiety state, unspecified 01/15/200701/12 Chest pain, unspecified 12/03/2005 12/08/19 10 Other malaise and fatigue 12/03/20052009 Cervical spondylosis without myelopathy 02/27/20 05 10/04/2013 Diarrhea 02/08/2014 documented as of this encounter (statuses as of 01/30/2022) [facility] History of Past illness Narrative* Problem Noted Date Resolved Date Muscle weakness 11/25/2018 05/14/2019 Carotid disease, bilateral 01/03/201605/14 Rectocele 03/02/2013 10/04/2013 Anal fissure 03/07/2011 02/08/2014 Enthesopathy of hip region 02/04/201101/12 Spondylosis, 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 Xray 11/2009 Rectal bleeding 03/09/2009 01/13/2012 Diverticulosis of colon 01/06/2009 01/01/20 17 Overview: colonoscopy 07/2012 Last Assessment & Plan: colonoscopy 07/2012 throughout with diverticula. Incontinence of feces 11/30/2008 12/07/2009 Unspecified hemorrhoids without mention of compl ication 11/30/2008 10/04/2013 Anxiety state, unspecified 01/15/200701/12 Chest pain, unspecified 12/03/2005 12/08/19 10 Other malaise and fatigue 12/03/20052009 Cervical spondylosis without myelopathy 02/27/20 05 10/04/2013 Diarrhea 02/08/2014 documented as of this encounter (statuses as of 01/30/2022) [facility] History of Past illness Narrative* Problem Noted Date Resolved Date Muscle weakness 11/25/2018 05/14/2019 Carotid disease, bilateral 01/03/201605/14 Rectocele 03/02/2013 10/04/2013 Anal fissure 03/07/2011 02/08/2014 Enthesopathy of hip region 02/04/201101/12 Spondylosis, 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 Xray 11/2009 Rectal bleeding 03/09/2009 01/13/2012 Diverticulosis of colon 01/06/2009 01/01/20 17 Overview: colonoscopy 07/2012 Last Assessment & Plan: colonoscopy 07/2012 throughout with diverticula. Incontinence of feces 11/30/2008 12/07/2009 Unspecified hemorrhoids without mention of compl ication 11/30/2008 10/04/2013 Anxiety state, unspecified 01/15/200701/12 Chest pain, unspecified 12/03/2005 12/08/19 10 Other malaise and fatigue 12/03/20052009 Cervical spondylosis without myelopathy 02/27/20 05 10/04/2013 Diarrhea 02/08/2014 documented as of this encounter (statuses as of 01/31/2022) [facility] History of Past illness Narrative* Problem Noted Date Resolved Date Muscle weakness 11/25/2018 05/14/2019 Carotid disease, bilateral 01/03/201605/14 Rectocele 03/02/2013 10/04/2013 Anal fissure 03/07/2011 02/08/2014 Enthesopathy of hip region 02/04/201101/12 Spondylosis, 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 Xray 11/2009 Rectal bleeding 03/09/2009 01/13/2012 Diverticulosis of colon 01/06/2009 01/01/20 17 Overview: colonoscopy 07/2012 Last Assessment & Plan: colonoscopy 07/2012 throughout with diverticula. Incontinence of feces 11/30/2008 12/07/2009 Unspecified hemorrhoids without mention of compl ication 11/30/2008 10/04/2013 Anxiety state, unspecified 01/15/200701/12 Chest pain, unspecified 12/03/2005 12/08/19 10 Other malaise and fatigue 12/03/20052009 Cervical spondylosis without myelopathy 02/27/20 05 10/04/2013 Diarrhea 02/08/2014 documented as of this encounter (statuses as of 02/05/2022) [facility] of Past illness Narrative* Problem Noted Date Resolved Date Muscle weakness 11/25/2018 05/14/2019 Carotid disease, bilateral 01/03/201605/14 Rectocele 03/02/2013 10/04/2013 Anal fissure 03/07/2011 02/08/2014 Enthesopathy of hip region 02/04/201101/12 Spondylosis, 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 Xray 11/2009 Rectal bleeding 03/09/2009 01/13/2012 Diverticulosis of colon 01/06/2009 01/01/20 17 Overview: colonoscopy 07/2012 Last Assessment & Plan: colonoscopy 07/2012 throughout with diverticula. Incontinence of feces 11/30/2008 12/07/2009 Unspecified hemorrhoids without mention of compl ication 11/30/2008 10/04/2013 Anxiety state, unspecified 01/15/200701/12 Chest pain, unspecified 12/03/2005 12/08/19 10 Other malaise and fatigue 12/03/20052009 Cervical spondylosis without myelopathy 02/27/20 05 10/04/2013 Diarrhea 02/08/2014 documented as of this encounter (statuses as of 02/07/2022) [facility] History of Past illness Narrative* Problem Noted Date Resolved Date Muscle weakness 11/25/2018 05/14/2019 Carotid disease, bilateral 01/03/201605/14 Rectocele 03/02/2013 10/04/2013 Anal fissure 03/07/2011 02/08/2014 Enthesopathy of hip region 02/04/201101/12 Spondylosis, 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 Xray 11/2009 Rectal bleeding 03/09/2009 01/13/2012 Diverticulosis of colon 01/06/2009 01/01/20 17 Overview: colonoscopy 07/2012 Last Assessment & Plan: colonoscopy 07/2012 throughout with diverticula. Incontinence of feces 11/30/2008 12/07/2009 Unspecified hemorrhoids without mention of compl ication 11/30/2008 10/04/2013 Anxiety state, unspecified 01/15/200701/12 Chest pain, unspecified 12/03/2005 12/08/19 10 Other malaise and fatigue 12/03/20052009 Cervical spondylosis without myelopathy 02/27/20 05 10/04/2013 Diarrhea 02/08/2014 documented as of this encounter (statuses as of 02/08/2022) [facility] of Past illness Narrative* Problem Noted Date Resolved Date Muscle weakness 11/25/2018 05/14/2019 Carotid disease, bilateral 01/03/201605/14 Rectocele 03/02/2013 10/04/2013 Anal fissure 03/07/2011 02/08/2014 Enthesopathy of hip region 02/04/201101/12 Spondylosis, 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 Xray 11/2009 Rectal bleeding 03/09/2009 01/13/2012 Diverticulosis of colon 01/06/2009 01/01/20 17 Overview: colonoscopy 07/2012 Last Assessment & Plan: colonoscopy 07/2012 throughout with diverticula. Incontinence of feces 11/30/2008 12/07/2009 Unspecified hemorrhoids without mention of compl ication 11/30/2008 10/04/2013 Anxiety state, unspecified 01/15/200701/12 Chest pain, unspecified 12/03/2005 12/08/19 10 Other malaise and fatigue 12/03/20052009 Cervical spondylosis without myelopathy 02/27/20 05 10/04/2013 Diarrhea 02/08/2014 documented as of this encounter (statuses as of 02/12/2022) [facility] of Past illness Narrative* Problem Noted Date Resolved Date Muscle weakness 11/25/2018 05/14/2019 Carotid disease, bilateral 01/03/201605/14 Rectocele 03/02/2013 10/04/2013 Anal fissure 03/07/2011 02/08/2014 Enthesopathy of hip region 02/04/201101/12 Spondylosis, 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 Xray 11/2009 Rectal bleeding 03/09/2009 01/13/2012 Diverticulosis of colon 01/06/2009 01/01/20 17 Overview: colonoscopy 07/2012 Last Assessment & Plan: colonoscopy 07/2012 throughout with diverticula. Incontinence of feces 11/30/2008 12/07/2009 Unspecified hemorrhoids without mention of compl ication 11/30/2008 10/04/2013 Anxiety state, unspecified 01/15/200701/12 Chest pain, unspecified 12/03/2005 12/08/19 10 Other malaise and fatigue 12/03/20052009 Cervical spondylosis without myelopathy 02/27/20 05 10/04/2013 Diarrhea 02/08/2014 documented as of this encounter (statuses as of 02/12/2022) [facility] of Past illness Narrative* Problem Noted Date Resolved Date Muscle weakness 11/25/2018 05/14/2019 Carotid disease, bilateral 01/03/201605/14 Rectocele 03/02/2013 10/04/2013 Anal fissure 03/07/2011 02/08/2014 Enthesopathy of hip region 02/04/201101/12 Spondylosis, 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 Xray 11/2009 Rectal bleeding 03/09/2009 01/13/2012 Diverticulosis of colon 01/06/2009 01/01/20 17 Overview: colonoscopy 07/2012 Last Assessment & Plan: colonoscopy 07/2012 throughout with diverticula. Incontinence of feces 11/30/2008 12/07/2009 Unspecified hemorrhoids without mention of compl ication 11/30/2008 10/04/2013 Anxiety state, unspecified 01/15/200701/12 Chest pain, unspecified 12/03/2005 12/08/19 10 Other malaise and fatigue 12/03/20052009 Cervical spondylosis without myelopathy 02/27/20 05 10/04/2013 Diarrhea 02/08/2014 documented as of this encounter (statuses as of 02/13/2022) [facility] of Past illness Narrative* Problem Noted Date Resolved Date Muscle weakness 11/25/2018 05/14/2019 Carotid disease, bilateral 01/03/201605/14 Rectocele 03/02/2013 10/04/2013 Anal fissure 03/07/2011 02/08/2014 Enthesopathy of hip region 02/04/201101/12 Spondylosis, 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 Xray 11/2009 Rectal bleeding 03/09/2009 01/13/2012 Diverticulosis of colon 01/06/2009 01/01/20 17 Overview: colonoscopy 07/2012 Last Assessment & Plan: colonoscopy 07/2012 throughout with diverticula. Incontinence of feces 11/30/2008 12/07/2009 Unspecified hemorrhoids without mention of compl ication 11/30/2008 10/04/2013 Anxiety state, unspecified 01/15/200701/12 Chest pain, unspecified 12/03/2005 12/08/19 10 Other malaise and fatigue 12/03/20052009 Cervical spondylosis without myelopathy 02/27/20 05 10/04/2013 Diarrhea 02/08/2014 documented as of this encounter (statuses as of 02/13/2022) [facility] History of Past illness Narrative* Problem Noted Date Resolved Date Muscle weakness 11/25/2018 05/14/2019 Carotid disease, bilateral 01/03/201605/14 Rectocele 03/02/2013 10/04/2013 Anal fissure 03/07/2011 02/08/2014 Enthesopathy of hip region 02/04/201101/12 Spondylosis, 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 Xray 11/2009 Rectal bleeding 03/09/2009 01/13/2012 Diverticulosis of colon 01/06/2009 01/01/20 17 Overview: colonoscopy 07/2012 Last Assessment & Plan: colonoscopy 07/2012 throughout with diverticula. Incontinence of feces 11/30/2008 12/07/2009 Unspecified hemorrhoids without mention of compl ication 11/30/2008 10/04/2013 Anxiety state, unspecified 01/15/200701/12 Chest pain, unspecified 12/03/2005 12/08/19 10 Other malaise and fatigue 12/03/20052009 Cervical spondylosis without myelopathy 02/27/20 05 10/04/2013 Diarrhea 02/08/2014 documented as of this encounter (statuses as of 02/14/2022) [facility] History of Past illness Narrative* Problem Noted Date Resolved Date Muscle weakness 11/25/2018 05/14/2019 Carotid disease, bilateral 01/03/201605/14 Rectocele 03/02/2013 10/04/2013 Anal fissure 03/07/2011 02/08/2014 Enthesopathy of hip region 02/04/201101/12 Spondylosis, 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 Xray 11/2009 Rectal bleeding 03/09/2009 01/13/2012 Diverticulosis of colon 01/06/2009 01/01/20 17 Overview: colonoscopy 07/2012 Last Assessment & Plan: colonoscopy 07/2012 throughout with diverticula. Incontinence of feces 11/30/2008 12/07/2009 Unspecified hemorrhoids without mention of compl ication 11/30/2008 10/04/2013 Anxiety state, unspecified 01/15/200701/12 Chest pain, unspecified 12/03/2005 12/08/19 10 Other malaise and fatigue 12/03/20052009 Cervical spondylosis without myelopathy 02/27/20 05 10/04/2013 Diarrhea 02/08/2014 documented as of this encounter (statuses as of 02/14/2022) [facility] Benign meningioma of brain (HCC)- Primary Benign neoplasm of cerebral meninges Claustrophobia Other isolated or specific phobias [facility] Diagnosis Benign meningioma of brain (HCC)- Primary Benign neoplasm of cerebral meninges [facility] noteNo assessment information availableWUniversity [facility] Work Phone: Evaluation note* Diagnosis Benign meningioma of brain (HCC)- Primary Benign neoplasm of cerebral meninges Benign neoplasm of meninges (HCC) Benign neoplasm of cerebral meninges [facility] Diagnosis Benign neoplasm of meninges (HCC)- Primary Benign neoplasm of cerebral meninges [facility]* Diagnosis Pain of left heel- Primary Pain in limb Incontinence of feces, unspecified fecal incontinence type Hyperlipidemia, unspecified hyperlipidemia type Benign meningioma of brain (HCC) Benign neoplasm of cerebral meninges Palpitations [facility]* Diagnosis Acute left-sided thoracic back pain- Primary [facility]* Diagnosis Benign meningioma of brain (HCC)- Primary Benign neoplasm of cerebral meninges Benign neoplasm of meninges (HCC) Benign neoplasm of cerebral meninges [facility] Diagnosis Calcaneal spur of left foot- Primary Calcaneal spur Pain of left heel Pain in limb Tendonitis, Achilles, left Achilles bursitis or tendinitis [facility]* Diagnosis Acute left-sided thoracic back pain- Primary Left Achilles tendinitis Achilles bursitis or tendinitis Palpitations [facility]* Diagnosis Acute left-sided thoracic back pain Left Achilles tendinitis Achilles bursitis or tendinitis [facility]* Diagnosis Left Achilles tendinitis- Primary Achilles bursitis or tendinitis Acute left-sided thoracic back pain [facility] Diagnosis Left Achilles tendinitis- Primary Achilles bursitis or tendinitis Acute left-sided thoracic back pain [facility]* Diagnosis Left Achilles tendinitis- Primary Achilles bursitis or tendinitis Acute left-sided thoracic back pain [facility]* Diagnosis Benign meningioma of brain (HCC) Benign neoplasm of cerebral meninges Benign neoplasm of meninges (HCC) Benign neoplasm of cerebral meninges [facility]* Diagnosis Benign meningioma of brain (HCC)- Primary Benign neoplasm of cerebral meninges [facility]* Diagnosis Benign meningioma of brain (HCC) Benign neoplasm of cerebral meninges Allergy, subsequent encounter [facility] [place] [facility]* Diagnosis Irregular heart rhythm- Primary Cardiac dysrhythmia, unspecified Need for influenza vaccination Need for prophylactic vaccination and inoculation against influenza [facility]* Diagnosis 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 [facility] Diagnosis 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 [facility]* Diagnosis Benign meningioma of brain (HCC)- Primary Benign neoplasm of cerebral meninges Benign neoplasm of meninges (HCC) Benign neoplasm of cerebral meninges [facility]* Diagnosis Benign meningioma of brain (HCC)- Primary Benign neoplasm of cerebral meninges Allergy, subsequent encounter [facility]* Diagnosis Benign meningioma of brain (HCC)- Primary Benign neoplasm of cerebral meninges [facility] Diagnosis Benign meningioma of brain (HCC) Benign neoplasm of cerebral meninges Benign neoplasm of meninges (HCC) Benign neoplasm of cerebral meninges [facility]* Diagnosis Benign meningioma of brain (HCC) Benign neoplasm of cerebral meninges Benign neoplasm of meninges (HCC) Benign neoplasm of cerebral meninges [facility]* Diagnosis Muscle spasm- Primary Spasm of muscle [facility]* Diagnosis Onset Date Resolution Status Benign meningioma of brain a cute Carotid artery stenosis acut e Hyperlipidemia acute Irregular heart rhythm acute [facility] Work Phone: Evaluation note* Diagnosis Medicare annual wellness visit, subsequent- Primary Routine general medical examination at a [facility] facility Hyperlipidemia, unspecified hyperlipidemia type Palpitations Osteopenia, unspecified location Encounter for screening mammogram for malignant neoplasm of breast Other screening mammogram Memory disturbance Memory loss [facility]* Diagnosis Onset Date Resolution Status Benign meningioma of brain a cute Carotid artery stenosis international specialist daniel Hyperlipidemia chronic Irregular heart rhythm chron ic Carpal tunnel syndrome acute Melanotic stools acute Recurrent incisional hernia with incarceration acute Benign meningioma of brain a cute Aortic regurgitation chronic Carotid artery stenosis international specialist daniel Hyperlipidemia chronic Irregular heart rhythm chron ic [facility] Work Phone: Evaluation note* Diagnosis Heme positive stool- Primary Nonspecific abnormal finding in stool contents [facility]* Diagnosis Allergy, subsequent encounter- Primary Benign meningioma of brain (HCC) Benign neoplasm of cerebral meninges [facility]* Diagnosis Benign meningioma of brain (HCC) Benign neoplasm of cerebral meninges [facility]* Diagnosis Sinus congestion- Primary Other diseases of nasal cavity and sinuses [facility]* Diagnosis Encounter for screening mammogram for malignant neoplasm of breast Other screening mammogram [facility]* Diagnosis URI, acute- Primary Acute upper respiratory infections of unspecified site Vertigo Dizziness and giddiness [facility]* Diagnosis Medicare annual wellness visit, subsequent- Primary Routine general medical examination at a health care facility Encounter for immunization Need for other specified prophylactic vaccination against single bacterial disease Screening mammogram for breast cancer [facility]* Diagnosis Screening mammogram for breast cancer [facility]* Diagnosis Onset Date Resolution Status Melanotic stools acute [facility] Work Phone: Evaluation note* Diagnosis Benign meningioma of brain (HCC)- Primary Benign neoplasm of cerebral meninges Claustrophobia Other isolated or specific phobias [facility]* Diagnosis Onset Date Resolution Status Change in bowel habit acute Rectal pressure acute Ventral incisional hernia wi thout obstruction or gangrene acute [facility] Work Phone: Evaluation note* Diagnosis Benign meningioma of brain (HCC)- Primary Benign neoplasm of cerebral meninges Claustrophobia Other isolated or specific phobias [facility] [place] [facility]* Diagnosis Benign meningioma of brain (HCC) Benign neoplasm of cerebral meninges [facility]* Diagnosis Benign meningioma of brain (HCC)- Primary Benign neoplasm of cerebral meninges [facility]* Diagnosis Benign meningioma of brain (HCC)- Primary Benign neoplasm of cerebral meninges [facility]* Diagnosis Right knee pain, unspecified chronicity- Primary Bilateral carotid artery stenosis Occlusion and stenosis of carotid artery without mention of cerebral infarction Encounter for screening for osteoporosis Special screening for osteoporosis Asymptomatic postmenopausal status [facility] [place] [facility]* Diagnosis Allergic contact dermatitis due to food in contact with skin- Primary Contact dermatitis and other eczema due to food in contact with skin [facility]* Diagnosis Encounter for screening for osteoporosis Special screening for osteoporosis Asymptomatic postmenopausal status documented [facility]* Diagnosis Acute left-sided thoracic back pain- Primary [facility] Diagnosis HYPERLIPIDEMIA NEC/NOS- Primary Other and unspecified hyperlipidemia Fissure in ano Anal fissure Hot flashes Symptomatic menopausal or female climacteric states Age-related osteoporosis without current pathological fracture- Primary Senile osteoporosis Unsteady gait Abnormality of gait Irritable bowel syndrome with diarrhea Irritable bowel syndrome Chronic back pain, unspecified back location, unspecified back pain laterality [facility]* Diagnosis HYPERLIPIDEMIA NEC/NOS- Primary Other and unspecified hyperlipidemia Fissure in ano Anal fissure Hot flashes Symptomatic menopausal or female climacteric states Right knee pain, unspecified chronicity [facility]* Diagnosis HYPERLIPIDEMIA NEC/NOS- Primary Other and unspecified hyperlipidemia Fissure in ano Anal fissure Hot flashes Symptomatic menopausal or female climacteric states Vertigo- Primary Dizziness and giddiness Need for influenza vaccination Need for prophylactic vaccination and inoculation against influenza [facility]* Diagnosis HYPERLIPIDEMIA NEC/NOS- Primary Other and unspecified hyperlipidemia Fissure in ano Anal fissure Hot flashes Symptomatic menopausal or female climacteric states Pain of left heel Pain in limb [facility]* Diagnosis HYPERLIPIDEMIA NEC/NOS- Primary Other and unspecified hyperlipidemia Fissure in ano Anal fissure Hot flashes Symptomatic menopausal or female climacteric states Fecal urgency- Primary Outlet dysfunction constipation [facility] [place] [facility]* Diagnosis HYPERLIPIDEMIA NEC/NOS- Primary Other and unspecified hyperlipidemia Fissure in ano Anal fissure Hot flashes Symptomatic menopausal or female climacteric states Hyperlipidemia, unspecified hyperlipidemia type documented [facility] this [facility] [place] [facility]* Diagnosis HYPERLIPIDEMIA NEC/NOS- Primary Other and unspecified hyperlipidemia Fissure in ano Anal fissure Hot flashes Symptomatic menopausal or female climacteric states Fall, initial encounter- Primary Pain Generalized pain Pain Generalized pain [facility]* Diagnosis HYPERLIPIDEMIA NEC/NOS- Primary Other and unspecified hyperlipidemia Fissure in ano Anal fissure Hot flashes Symptomatic menopausal or female climacteric states Pain Generalized pain [facility]* Diagnosis HYPERLIPIDEMIA NEC/NOS- Primary Other and unspecified hyperlipidemia Fissure in ano Anal fissure Hot flashes Symptomatic menopausal or female climacteric states Primary osteoarthritis of left hip- Primary Primary localized osteoarthrosis, pelvic region and thigh Left leg weakness Other musculoskeletal symptoms referable to limbs [facility]* Diagnosis HYPERLIPIDEMIA NEC/NOS- Primary Other and unspecified hyperlipidemia Fissure in ano Anal fissure Hot flashes Symptomatic menopausal or female climacteric states Left leg weakness- Primary Other musculoskeletal symptoms referable to limbs Primary osteoarthritis of left hip Primary localized osteoarthrosis, pelvic region and thigh [facility] Diagnosis HYPERLIPIDEMIA NEC/NOS- Primary Other and unspecified hyperlipidemia Fissure in ano Anal fissure Hot flashes Symptomatic menopausal or female climacteric states Primary osteoarthritis of left hip- Primary Primary localized osteoarthrosis, pelvic region and thigh Left leg weakness Other musculoskeletal symptoms referable to limbs [facility] Diagnosis HYPERLIPIDEMIA NEC/NOS- Primary Other and unspecified hyperlipidemia Fissure in ano Anal fissure Hot flashes Symptomatic menopausal or female climacteric states Screening mammogram for breast cancer documented [facility] [place] [facility]* Diagnosis HYPERLIPIDEMIA NEC/NOS- Primary Other and unspecified hyperlipidemia Fissure in ano Anal fissure Hot flashes Symptomatic menopausal or female climacteric states Screening mammogram for breast cancer- Primary documented [facility] [place] [facility]* Diagnosis HYPERLIPIDEMIA NEC/NOS- Primary Other and unspecified hyperlipidemia Fissure in ano Anal fissure Hot flashes Symptomatic menopausal or female climacteric states Medicare annual wellness visit, subsequent- Primary Routine general medical examination at a health care facility Encounter for screening examination for other mental health and behavioral disorders Screening for depression Hyperlipidemia, unspecified hyperlipidemia type Left leg weakness Other musculoskeletal symptoms referable to limbs Carpal tunnel syndrome on right Carpal tunnel syndrome Age-related osteoporosis without current pathological fracture Senile osteoporosis [facility] Diagnosis HYPERLIPIDEMIA NEC/NOS- Primary Other and unspecified hyperlipidemia Fissure in ano Anal fissure Hot flashes Symptomatic menopausal or female climacteric states Abdominal pain, unspecified abdominal location- Primary Diarrhea, unspecified type [facility]* Diagnosis HYPERLIPIDEMIA NEC/NOS- Primary Other and unspecified hyperlipidemia Fissure in ano Anal fissure Hot flashes Symptomatic menopausal or female climacteric states Benign meningioma of brain (HCC)- Primary Benign neoplasm of cerebral meninges [facility] Diagnosis HYPERLIPIDEMIA NEC/NOS- Primary Other and unspecified hyperlipidemia Fissure in ano Anal fissure Hot flashes Symptomatic menopausal or female climacteric states Sesamoiditis of right foot- Primary [facility]* Diagnosis HYPERLIPIDEMIA NEC/NOS- Primary Other and unspecified hyperlipidemia Fissure in ano Anal fissure Hot flashes Symptomatic menopausal or female climacteric states Pain Generalized pain [facility] [place] [facility]* Diagnosis HYPERLIPIDEMIA NEC/NOS- Primary Other and unspecified hyperlipidemia Fissure in ano Anal fissure Hot flashes Symptomatic menopausal or female climacteric states Benign meningioma of brain (HCC) Benign neoplasm of cerebral meninges Benign meningioma of brain (HCC)- Primary Benign neoplasm of cerebral meninges [facility] [place] [facility]* Diagnosis HYPERLIPIDEMIA NEC/NOS- Primary Other and unspecified hyperlipidemia Fissure in ano Anal fissure Hot flashes Symptomatic menopausal or female climacteric states Benign meningioma of brain (HCC)- Primary Benign neoplasm of cerebral meninges [facility] [place] [facility]* Diagnosis HYPERLIPIDEMIA NEC/NOS- Primary Other and unspecified hyperlipidemia Fissure in ano Anal fissure Hot flashes Symptomatic menopausal or female climacteric states Pruritus vulvae Pruritus of genital organs Postmenopausal atrophic vaginitis [facility] [place] [facility]* Diagnosis HYPERLIPIDEMIA NEC/NOS- Primary Other and unspecified hyperlipidemia Fissure in ano Anal fissure Hot flashes Symptomatic menopausal or female climacteric states Urinary symptom or sign- Primary Other symptoms involving urinary system Unsteady gait when walking Carpal tunnel syndrome on right Carpal tunnel syndrome Age-related osteoporosis without current pathological fracture Senile osteoporosis Premature atrial contraction Supraventricular premature beats [facility] [place] [facility]* Diagnosis HYPERLIPIDEMIA NEC/NOS- Primary Other and unspecified hyperlipidemia Fissure in ano Anal fissure Hot flashes Symptomatic menopausal or female climacteric states Vaginal itching- Primary Pruritus of genital organs Vaginal irritation Unspecified noninflammatory disorder of vagina Lichen simplex chronicus Lichenification and lichen simplex chronicus Tick bite of neck, initial encounter [facility] [place] [facility]* Diagnosis Onset Date Resolution Status Admit Date Aortic regurgitation chronic Augu st 2024 9:01am Carotid artery stenosis chronic A ugust 2024 9:01am Hyperlipidemia chronic November 9:01am PAC (premature atrial contraction) chronic November 23, 2024 9:01am [facility] Work Phone: Evaluation note* Diagnosis HYPERLIPIDEMIA NEC/NOS- Primary Other and unspecified hyperlipidemia Fissure in ano Anal fissure Hot flashes Symptomatic menopausal or female climacteric states Diarrhea, unspecified type- Primary Irritable bowel syndrome without diarrhea Irritable bowel syndrome Benign meningioma of brain (HCC)- Primary Benign neoplasm of cerebral meninges [facility] Diagnosis HYPERLIPIDEMIA NEC/NOS- Primary Other and unspecified hyperlipidemia Fissure in ano Anal fissure Hot flashes Symptomatic menopausal or female climacteric states Benign meningioma of brain (HCC)- Primary Benign neoplasm of cerebral meninges Memory disturbance Memory loss [facility] Diagnosis HYPERLIPIDEMIA NEC/NOS- Primary Other and unspecified hyperlipidemia Fissure in ano Anal fissure Hot flashes Symptomatic menopausal or female climacteric states Vulvar dermatitis- Primary Other inflammatory disease of cervix, vagina and vulva Lichen sclerosus et atrophicus Circumscribed scleroderma Dysuria Incontinence of feces, unspecified fecal incontinence type documented [facility] this encounter [facility] Author Baron Reid [facility] April 22, 2023 8:23am Note Date/Time April 22, 2023 8: 23am [facility] Medical Records Department [address] [place] [id number] History & Physical Exam 04/22/23821 MR#: [id number] Acct: [id number] Name: FANNIE AVALOS Rep #:[id number] : 1945 [id number] From: Baron Reid MD PCP: Dr. Gavin Tran MD Status:[facility] Location: [place] [address] History and Physical Date of Admission: 04/22/23 Visit Reasons: POSITIVE COLOGUARD Chief Complaint: positive cologuard [employer] Service Technician Required: No Is patient in pain?: Yes (back ) Allergies clindamycin Allergy (Intermediate, Verified 02/26/23 14:09) nausea/vomitingsulfamethoxazole [From Bactrim] Allergy (Intermediate, Verified 02/26/23 14:09) nausea/vomitingtrimethoprim [From Bactrim] Allergy (Intermediate, Verified 02/26/23 14:09) nausea/vomitingGadolinium-MRI Contrast Medium Allergy (Verified 02/26/23 14:09) Hiveslevofloxacin [From Levaquin] Adverse Reaction (Verified 02/26/23 14:09) Nauseametronidazole [From Flagyl] Adverse Reaction (Verified 02/26/23 14:09) Nausea Medications cholecalciferol (vitamin D3) 25 mcg (1,000 unit) tablet 1,000 unit PO DAILY 03/25/20 [History Confirmed 02/26/23] aspirin 81 mg tablet,delayed release 81 mg PO DAILY 01/31/22 [History Confirmed 02/26/23] atorvastatin 40 mg tablet 40 mg PO QHS 01/31/22 [History Confirmed 02/26/23] calcium carbonate 600 mg-vitamin D3 5 mcg (200 unit) capsule (Calcium 600 + D(3)) 1 cap PO DAILY 01/31/22 [History Confirmed 10/28/22] ibuprofen 600 mg tablet 600 mg PO Q8H PRN Pain 01/31/22 [History Confirmed 02/26/23] multivitamin 1 tab PO DAILY supplement 01/31/22 [History Confirmed 02/26/23] vitamin E (dl, acetate) 90 mg (200 unit) capsule 90 mg PO DAILY 01/31/22 [History Confirmed 02/26/23] omega-3 fatty acids-fish oil 300 mg-1,000 mg capsule 1 cap PO SA 02/11/22 [History Confirmed 02/26/23] omeprazole 20 mg capsule,delayed release 20 mg PO .QOD 10/02/22 [History Confirmed 02/26/23] wheat dextrin 3 gram/3.5 gram oral powder packet (Benefiber Clear Sugar Free(dextrin)) 3 g PO DAILY 10/02/22 [History Confirmed 02/26/23] carvedilol 3.125 mg tablet See Rx Instructions .Route .COMPLEX updated RX with new quantity #180 tabs 01/20/23 [Rx Confirmed 02/26/23] loratadine 10 mg tablet (Claritin) 10 mg PO DAILY 02/26/23 [History Confirmed 02/26/23] naproxen 500 mg tablet mg PO 02/26/23 [History Confirmed 02/26/23] [facility] Medical History (Updated 02/19/23 @ 14:01 by Arely KABA, PAThaniaC) Acute left-sided thoracic back pain Allergic rhinitis Anorectal pain Aortic regurgitation Benign meningioma of brain Benign neoplasm of colon Benign neoplasm of meninges Blood in stool Cardiology follow-up encounter Carotid artery stenosis Carpal tunnel syndrome Cecum perforation Change in bowel habit Constipation Diarrhea Epigastric abdominal pain Esophageal dysphagia Fecal occult blood test positive Fecal occult blood test positive Hemorrhoids High cholesterol History of echocardiogram History of IBS History of stress test Hyperlipidemia IBS (irritable bowel syndrome) Incontinence of feces Irregular heart rhythm Left Achilles tendinitis Melanotic stools Non-smoker Nonrheumatic aortic (valve) insufficiency Osteopenia Palpitations Personal history of colonic polyps Recurrent incisional hernia with incarceration RLQ abdominal pain Status post gamma knife treatment Wears glasses Surgical History History of colectomy History of ERCP (~03/2018) History of hemorrhoidectomy History of hysterectomy History of removal of ovarian cyst History of spinal fusion Hx of cholecystectomy (~03/2018) Family History Mother Breast cancer Thyroid disorderAunt Breast cancer Social History Smoking Status: Never smoker alcohol intake: never substance use type: does not use caffeine: Yes (occasionally) Type: carbonated beverages HPI HPI Surgical H&P: Yes HPI: Patient is a 77 y/o F I am following for melanotic stools. Patient notes approximately 6 weeks ago she noted her stools were darker in color. Patient Patient states she has been having normal bowel movements, whereas before she was constipated. Patient denies any bright red rectal bleeding. She denies true abdominal pain or discomfort. She notes intermittent loud abdominal gurgling. She can not attribute that to any specific food or activity she is doing. Patient notes she has been under some stress. Her and her are planning to travel to [place] for the winter soon. She is currently being treated with physical therapy for back pain. She is also taking naproxen for 2 days for the back pain. Patient also developed vertigo while at therapy her last session, so she is dealing with those effects. Patient is also a worrier on top of all the issues she is dealing with now. Patient had contacted our office approximately 2weeks ago noting she was having darker stools. Patient notes she stopped her PPIat least 6 months ago as she was told it was not good to continue. Our office ordered occult blood test which returned positive. I had contacted the patient with testing results and recommended she restart her omeprazole 40 mg daily. An office appointment was made for further evaluation. Patient also notes she has been taking Pepto-Bismol for the abdominal gurgling and sometimes she has urgency with bowel movements. She notes taking Pepto-Bismol when her and her go out to dinner with friends, so she does not have any accidents. Patient's most recent EGD and colonoscopy was on 03/29/[address] Reid. Scopes were performed during that time due to melanotic stools. EGD findings were reflux esophagitis, small hiatal hernia, erythematous duodenum, acute chronic gastritis. No active bleeding noted. Suspect gastritis as the source of melena and Hemoccult positive stool. Colonoscopy findings were non-bleeding hemorrhoids, patent functional end-to-end ileo colonic anastomosis, scattered diverticula were found throughout the entire colon. No specimens were collected. Pathology for the EGD demonstrated duodenal mucosa with Shan gland hyperplasia, mild gastritis, fundic gland polyp, and GE mucosa with chronic inflammation. Patient has a history of a hand-assisted laparoscopic right colectomy by Dr. Reid on 12/03/17 following a cecal perforation from a colonoscopy, where multiple AVMs were treated. She also notes a previous sigmoid colectomy following what sounds like a volvulus. ROS General General: No weight change, appetite, fatigue, colon cancer, breast cancer or weakness HEENT HEENT: No difficulty swallowing, eye injury, eye surgery, swollen glands or hoarseness Endo Endocrine: No thyroid disease, diabetes mellitus, thyroid cancer, Hair loss, heat intolerance or cold intolerance Skin Skin: No rash or changing moles Breast Breast: No left breast lump, right breast lump, nipple discharge, breast pain, abnormal mammogram, abnormal US or breast enlargement Musc Musculoskeletal: Yes back problems; No arthritis, rheumatoid arthritis, gout or joint pain Cardio Cardiovascular: No murmur, pacemaker, heart disease, atrial fibrillation, high blood pressure, heart attack, heart stent, palpitations, shortness of breat withexertion or chest pain Psych Psychiatric: No depression, anxiety or hearing voices Resp Respiratory: No shortness of breath, No sleep apnea, Yes cough, No COPD, No asthma, No emphysema and No wheezing Gastro Gastrointestinal: Yes abdominal pain, No nausea or vomiting, No diarrhea, No constipation, Yes blood in stool, No acid reflux, Yes hemorrhoids, No ulcers, Nogallbladder problem and Yes black,tarry stools Additional Details: Black, Tarry stools pt states Sometimes Jose Hematologic: No blood thinners, No blood disorders, No bleeding, No anemia and No blood clots Neuro Neurologic: No system reviewed and no additional complaints, except as documented, No as per HPI, No abnormal gait, No abnormal hearing, No abnormal movements, No abnormal speech, No behavioral changes, No burning sensations, No confusion, No convulsions, No disequilibrium, No dizziness, No localized weakness, No frequent falls, No headache(s), No lack of coordination, No loss ofvision, No memory loss, Yes numbness, No other visual disturbances, No radicularpain, No restless legs, No sensory deficit, No syncope, Yes tingling, No tremor(s), No weakness and No other Exam Const General: cooperative, healthy appearing, comfortable and no acute distress HENMT Head: normal to inspection Eyes General: appearance normal, both eyes and all related structures Neck Neck: normal visual inspection Neck mass: No Resp Effort & Inspection: normal respiratory effort Auscultation: clear to auscultation bilaterally Cardio Rate: regular rate Rhythm: regular rhythm GI Inspection: normal to inspection Palpation: soft Auscultation: normal bowel sounds Musc Cervical Spine: normal cervical lordosis Skin General: no rashes or lesions noted Neuro General: no focal motor deficits and CN's II-XI intact bilaterally Extrem General: normal to inspection Psych Appearance: grossly normal Affect: normal affect Assessment and Plan Assessment and Plan (1) Melanotic stools: Status: Acute Patient had a positive Cologuard and acute anemia. She has undergone an esophagogastroduodenoscopy with no acute findings. He returns today for a colonoscopy with possible biopsy or polypectomy as indicated. Fortunately with iron supplementation her anemia is slowly improving and is almost resolved. Baron Reid M.D., F.A.C.S. 04/22/23 [id number] <Electronically signed by Baron Reid MD> Cosigner Signature (if applicable): CC: Dr. Baron Reid MD; Dr. Gavin Tran MD~ Signed [facility] Work Phone: Reason for referral (narrative)* Diagnostic Procedure Only (Routine) - Closed Specialty Diagnoses / Procedures Referred By Contac t Referred To Contact XR IMAGING Diagnoses Pain of left heel Procedures XR FOOT GENERAL 3V AP/LAT/OBL LEFT RADEX FOOT COMPLETE MINIMUM 3 VIEWS Catina Manuel APRN.FINANCE SPECIALIST [address] [place] [address] Xr Imaging Referral ID Status Reason Start Date Expiration Date V isits Requested Visits Authorized [id number] Closed Auto-Generate d Referral 10/24/2021 11/23/2022 1 1 * Consult, Test, Treat (Routine) - Authorized Specialty Diagnoses / Procedures Referred By Adenac t Referred To Contact Podiatry Diagnoses Pain of left heel Procedures CONSULT TO PODIATRY OFFICE/OUTPATIENT [facility] MDM 60-74 MINUTES OlderCatina APRN.CNP [address] [place] [address] Referral ID Status Reason Start Date Expiration Date Visits Requested Visits Authorized [id number] Authorized PCP Requested Referral 10/24/2021 10/24/2022 1 1 [facility] for referral (narrative)* Diagnostic Procedure Only (Routine) - Authorized Specialty Diagnoses / Procedures Referred By Shana t Referred To Contact BR IMAGING Diagnoses Encounter for screening mammogram for malignant neoplasm of breast Procedures ARLENE SCREENING SCREENING MAMMOGRAPHY BI 2-VIEW BREAST INC Gavin Ortega MD [address] [place] [address] Br Imaging [address] [facility] [place] [address] Referral ID Status Reason Start Date Expiration Date Visits Requested Visits Authorized [id number] Authorized Auto-Generat ed Referral 02/27/2022 03/29/2023 1 1 [facility] for referral (narrative)* Diagnostic Procedure Only (Routine) - Closed Specialty Diagnoses / Procedures Referred By Shana t Referred To Contact BR IMAGING Diagnoses Encounter for screening mammogram for malignant neoplasm of breast Procedures ARLENE SCREENING SCREENING MAMMOGRAPHY BI 2-VIEW BREAST INC Gavin Ortega, MD [address] [place] [address] Br Imaging [address] [place] [address] Referral ID Status Reason Start Date Expiration Date V isits Requested Visits Authorized [id number] Closed Auto-Generate d Referral 02/27/2022 03/29/2023 1 1 [facility] for referral (narrative)* Diagnostic Procedure Only (Routine) - Authorized Specialty Diagnoses / Procedures Referred By Contac t Referred To Contact BR IMAGING Diagnoses Screening mammogram for breast cancer Procedures ARLENE SCREENING SCREENING MAMMOGRAPHY BI 2-VIEW BREAST INC CAD Catina Manuel SENIOR GAMES TECHNICIAN.FINANCE SPECIALIST [address] [place] [id number] Br Imaging [address] [place] [address] Referral ID Status Reason Start Date Expiration Date Visits Requested Visits Authorized [id number] Authorized Auto-Generat ed Referral 04/18/2024 1 1 [facility] for referral (narrative)* Diagnostic Procedure Only (Routine) - Closed Specialty Diagnoses / Procedures Referred By Contac t Referred To Contact XR IMAGING Diagnoses Right knee pain, unspecified chronicity Procedures XR KNEE GENERAL 4V AP BOTH/PA BOTH/LAT/MERC RIGHT RADIOLOGIC EXAM KNEE COMPLETE 4/MORE VIEWS Catina Reddy, SENIOR GAMES TECHNICIAN.FINANCE SPECIALIST [address] [place] [address] Xr Imaging [facility] Referral ID Status Reason Start Date Expiration Date V isits Requested Visits Authorized [id number] Closed Auto-Generate d Referral 10/06/2023 11/04/2024 1 1 * Outpatient Procedure (Routine) - Authorized Specialty Diagnoses / Procedures Referred By Contac t Referred To [facility] Diagnoses Bilateral carotid artery stenosis Procedures US CAROTID ARTERIES [facility] DUPLEX SCAN EXTRACRANIAL ART COMPL BI STUDY Catina Reddy APRN.FINANCE SPECIALIST [address] [place] [address] [facility] [address] [place] [address] Referral ID Status Reason Start Date Expiration Date Visits Requested Visits Authorized [id number] Authorized Auto-Generat ed Referral 10/06/2023 10/05/2024 1 1 * Diagnostic Procedure Only (Routine) - Authorized Specialty Diagnoses / Procedures Referred By Contac t Referred To Contact XR IMAGING Diagnoses Encounter for screening for osteoporosis Asymptomatic postmenopausal status Procedures DXA-AXIAL SKELETON Catina Reddy APRN.FINANCE SPECIALIST [address] [place] [address] [place] [address] Referral ID Status Reason Start Date Expiration Date Visits Requested Visits Authorized [id number] Authorized Auto-Generat ed Referral 10/06/2023 11/04/2024 1 1 [facility] for referral (narrative)* Diagnostic Procedure Only (Routine) - Closed Specialty Diagnoses / Procedures Referred By Contac t Referred To Contact XR IMAGING Diagnoses Right knee pain, unspecified chronicity Procedures XR KNEE GENERAL 4V AP BOTH/PA BOTH/LAT/MERC RIGHT RADIOLOGIC EXAM KNEE COMPLETE 4/MORE VIEWS Catina Reddy SENIOR GAMES TECHNICIAN.FINANCE SPECIALIST [address] [place] [address] [place] [address] Referral ID Status Reason Start Date Expiration Date V isits Requested Visits Authorized [id number] Closed Auto-Generate d Referral 10/06/2023 11/04/2024 1 1 [facility] for referral (narrative)* Diagnostic Procedure Only (Routine) - Closed Specialty Diagnoses / Procedures Referred By Contac t Referred To Contact XR IMAGING Diagnoses Pain of left heel Procedures XR FOOT GENERAL 3V AP/LAT/OBL LEFT RADEX FOOT COMPLETE MINIMUM 3 VIEWS Catina Reddy APRN.FINANCE SPECIALIST [address] [place] [address] [place] [address] Referral ID Status Reason Start Date Expiration Date V isits Requested Visits Authorized [id number] Closed Auto-Generate d Referral 10/24/2021 11/23/2022 1 1 [facility] for referral (narrative)* Diagnostic Procedure Only (Urgent) - Closed Specialty Diagnoses / Procedures Referred By Contac t Referred To Contact XR IMAGING Diagnoses Pain Procedures XR KNEE GENERAL 4V AP BOTH/PA BOTH/LAT/MERC RIGHT RADIOLOGIC EXAM KNEE COMPLETE 4/MORE VIEWS Lemuel Howard APRN.FINANCE SPECIALIST [address] [place] [address] [place] [address] Referral ID Status Reason Start Date Expiration Date V isits Requested Visits Authorized [id number] Closed Auto-Generate d Referral 02/27/2024 03/28/2025 1 1 * Diagnostic Procedure Only (Urgent) - Closed Specialty Diagnoses / Procedures Referred By Contac t Referred To Contact XR IMAGING Diagnoses Pain Procedures XR HIP GENERAL 3V PELV/AP/LAT LEFT RADEX HIP UNILATERAL WITH PELVIS 2-3 VIEWS Lemuel Howard APRN.FINANCE SPECIALIST [address] [place] [address] [place] [address] Referral ID Status Reason Start Date Expiration Date V isits Requested Visits Authorized [id number] Closed Auto-Generate d Referral 02/27/2024 03/28/2025 1 1 * Diagnostic Procedure Only (Urgent) - Closed Specialty Diagnoses / Procedures Referred By Contac t Referred To Contact XR IMAGING Diagnoses Pain Procedures XR HAND GENERAL 3V PA/LAT/OBL RIGHT RADEX HAND MINIMUM 3 VIEWS Lemuel Howard APRN.FINANCE SPECIALIST [address] [place] [address] [place] [address] Referral ID Status Reason Start Date Expiration Date V isits Requested Visits Authorized [id number] Closed Auto-Generate d Referral 02/27/2024 03/28/2025 1 1 [facility] for referral (narrative)* Diagnostic Procedure Only (Urgent) - Closed Specialty Diagnoses / Procedures Referred By Contac t Referred To Contact XR IMAGING Diagnoses Pain Procedures XR KNEE GENERAL 4V AP BOTH/PA BOTH/LAT/MERC RIGHT RADIOLOGIC EXAM KNEE COMPLETE 4/MORE VIEWS Lemuel Howard APRN.FINANCE SPECIALIST [address] [place] [address] [place] [address] Referral ID Status Reason Start Date Expiration Date V isits Requested Visits Authorized [id number] Closed Auto-Generate d Referral 02/27/2024 03/28/2025 1 1 * Diagnostic Procedure Only (Urgent) - Closed Specialty Diagnoses / Procedures Referred By Contac t Referred To Contact XR IMAGING Diagnoses Pain Procedures XR HIP GENERAL 3V PELV/AP/LAT LEFT RADEX HIP UNILATERAL WITH PELVIS 2-3 VIEWS Lemuel Howard APRN.FINANCE SPECIALIST [address] [place] [address] [place] [address] Referral ID Status Reason Start Date Expiration Date V isits Requested Visits Authorized [id number] Closed Auto-Generate d Referral 02/27/2024 03/28/2025 1 1 * Diagnostic Procedure Only (Urgent) - Closed Specialty Diagnoses / Procedures Referred By Contac t Referred To Contact XR IMAGING Diagnoses Pain Procedures XR HAND GENERAL 3V PA/LAT/OBL RIGHT RADEX HAND MINIMUM 3 VIEWS Lemuel Howard APRN.FINANCE SPECIALIST [address] [place] [address] [place] [address] Referral ID Status Reason Start Date Expiration Date V isits Requested Visits Authorized [id number] Closed Auto-Generate d Referral 02/27/2024 03/28/2025 1 1 [facility] for referral (narrative)* Diagnostic Procedure Only (Routine) - Closed Specialty Diagnoses / Procedures Referred By Contac t Referred To Contact BR IMAGING Diagnoses Screening mammogram for breast cancer Procedures ARLENE SCREENING SCREENING MAMMOGRAPHY BI 2-VIEW BREAST INC CAD Catina Reddy APRN.FINANCE SPECIALIST [address] [place] [address] [facility] Imaging [address] [place] [address] Referral ID Status Reason Start Date Expiration Date V isits Requested Visits Authorized [id number] Closed Auto-Generate d Referral 03/10/2024 04/09/2025 1 1 [facility] for referral (narrative)* Diagnostic Procedure Only (Routine) - Authorized Specialty Diagnoses / Procedures Referred By Shana t Referred To Contact BR IMAGING Diagnoses Screening mammogram for breast cancer Procedures ARLENE SCREENING SCREENING MAMMOGRAPHY BI 2-VIEW BREAST INC CAD Catina Reddy APRN.FINANCE SPECIALIST [address] [place] [address] [facility] Imaging [address] [place] [address] Referral ID Status Reason Start Date Expiration Date Visits Requested Visits Authorized [id number] Authorized Auto-Generat ed Referral 04/09/2025 1 1 [facility] for referral (narrative)No reason for referral information availableScott [facility] Services Work Phone: reason for visit Narrative* Diagnostic Procedure Only (Routine) - Closed Specialty Diagnoses / Procedures Referred By Contac t Referred To Contact BR IMAGING Diagnoses Encounter for screening mammogram for malignant neoplasm of breast Procedures ARLENE SCREENING SCREENING MAMMOGRAPHY BI 2-VIEW BREAST INC CAD Gavin Tran MD [address] [place] [address] Br Imaging [address] [place] [address] Referral ID Status Reason Start Date Expiration Date V isits Requested Visits Authorized [id number] Closed Auto-Generate d Referral 02/27/2022 03/29/2023 1 1 [facility] for visit Narrative* Diagnostic Procedure Only (Routine) - Closed Specialty Diagnoses / Procedures Referred By Contac t Referred To Contact BR IMAGING Diagnoses Screening mammogram for breast cancer Procedures ARLENE SCREENING SCREENING MAMMOGRAPHY BI 2-VIEW BREAST INC CAD Catina Reddy, SENIOR GAMES TECHNICIAN.FINANCE SPECIALIST [address] [place] [address] Br Imaging [address] [place] [address] Referral ID Status Reason Start Date Expiration Date V isits Requested Visits Authorized [id number] Closed Auto-Generate d Referral 03/20/2023 04/18/2024 1 1 [facility] for visit Narrative* Diagnostic Procedure Only (Routine) - Closed Specialty Diagnoses / Procedures Referred By Contac t Referred To Contact XR IMAGING Diagnoses Encounter for screening for osteoporosis Asymptomatic postmenopausal status Procedures DXA-AXIAL SKELETON Catina Reddy M, SENIOR GAMES TECHNICIAN.FINANCE SPECIALIST [address] [place] [address] [place] [address] Referral ID Status Reason Start Date Expiration Date V isits Requested Visits Authorized [id number] Closed Auto-Generate d Referral 10/06/2023 11/04/2024 1 1 [facility] for visit Narrative* Diagnostic Procedure Only (Routine) - Closed Specialty Diagnoses / Procedures Referred By Contac t Referred To Contact XR IMAGING Diagnoses Right knee pain, unspecified chronicity Procedures XR ANKLE GENERAL 3V AP/LAT/OBL RIGHT RADEX ANKLE COMPLETE MINIMUM 3 VIEWS Catina Reddy M, SENIOR GAMES TECHNICIAN.FINANCE SPECIALIST [address] [place] [address] [place] [address] Referral ID Status Reason Start Date Expiration Date V isits Requested Visits Authorized [id number] Closed Auto-Generate d Referral 10/06/2023 11/04/2024 1 1 [facility] for visit Narrative* Diagnostic Procedure Only (Routine) - Closed Specialty Diagnoses / Procedures Referred By Contac t Referred To Contact XR IMAGING Diagnoses Pain of left heel Procedures XR FOOT GENERAL 3V AP/LAT/OBL LEFT RADEX FOOT COMPLETE MINIMUM 3 VIEWS Catina Reddy, SENIOR GAMES TECHNICIAN.FINANCE SPECIALIST [address] [place] [address] [place] [address] Referral ID Status Reason Start Date Expiration Date V isits Requested Visits Authorized [id number] Closed Auto-Generate d Referral 10/24/2021 11/23/2022 1 1 [facility] for visit Narrative* Diagnostic Procedure Only (Urgent) - Closed Specialty Diagnoses / Procedures Referred By Contac t Referred To Contact XR IMAGING Diagnoses Pain Procedures XR KNEE GENERAL 4V AP BOTH/PA BOTH/LAT/MERC RIGHT RADIOLOGIC EXAM KNEE COMPLETE 4/MORE VIEWS Lemuel Howard, SENIOR GAMES TECHNICIAN.FINANCE SPECIALIST [address] [place] [address] [place] [address] Referral ID Status Reason Start Date Expiration Date V isits Requested Visits Authorized [id number] Closed Auto-Generate d Referral 02/27/2024 03/28/2025 1 1 [facility] for visit Narrative* Diagnostic Procedure Only (Routine) - Closed Specialty Diagnoses / Procedures Referred By Contac t Referred To Contact BR IMAGING Diagnoses Screening mammogram for breast cancer Procedures ARLENE SCREENING SCREENING MAMMOGRAPHY BI 2-VIEW BREAST INC CAD Catina Reddy, SENIOR GAMES TECHNICIAN.FINANCE SPECIALIST [address] [place] [address] [facility] Imaging [address] [place] [address] Referral ID Status Reason Start Date Expiration Date V isits Requested Visits Authorized [id number] Closed Auto-Generate d Referral 03/10/2024 04/09/2025 1 1 [facility] for visit Narrative* Diagnostic Procedure Only (Routine) - Closed Specialty Diagnoses / Procedures Referred By Contac t Referred To Contact XR IMAGING Diagnoses Pain Procedures XR FOOT GENERAL 3V AP/LAT/OBL RIGHT RADEX FOOT COMPLETE MINIMUM 3 VIEWS [facility] [address] [facility] [address] [place] [address] Phone: tel: fax: [place] [address] Referral ID Status Reason Start Date Expiration Date V isits Requested Visits Authorized [id number] Closed Auto-Generate d Referral 07/02/2024 08/01/2025 1 1 [facility] MRI/CT (Routine) - Closed Specialty Diagnoses / Procedures Referred By Adenac t Referred To Contact MR IMAGING Diagnoses Benign meningioma of brain (HCC) Procedures MRI BRAIN WO/W IVCON MRI BRAIN BRAIN STEM W/O W/CONTRAST MATERIAL Katia Boykin, SENIOR GAMES TECHNICIAN.FINANCE SPECIALIST [address] [place] [address] Phone: tel: fax: [place] [address] Referral ID Status Reason Start Date Expiration Date V isits Requested Visits Authorized [id number] Closed Auto-Generate d Referral 08/03/2024 09/02/2025 1 1 [facility] Summary Purpose Family History No Family History Records Found Relationship Condition Age at Onset Recorded Date/T zora mother Malignant neoplasm of breast Unknown Disorder of thyroid Unknown aunt Malignant neoplasm of breast Unknown Advance Directives No Advanced Directives Records Found Advance Directive Response Recorded Date/ Time Living Will No March 25 12:05pm Power of Marketing Representative No March 25, 2020 12:05pm Advance Directive Response Recorded Date/ Time Name of Medical Power of Marketing Representative November 19, 2021 2:27pm Living Will Yes November 19, 2021 2:27pm Power of Marketing Representative Yes November 19 2:27pm Documents on File Type Date Recorded 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 Expl 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 Advance Directive(s) 11/20/2021 11:20 AM Advance Directive Response Recorded Date/ Time Name of Medical Power of Marketing Representative November 19, 2021 1:27pm Living Will Yes November 19, 2021 1:27pm Power of Marketing Representative Yes November 19 1:27pm Advance Directive Response Recorded Date/ Time Living Will Yes March 26 1:51pm Power of Marketing Representative Yes March 26, 2022 1:51pm Advance Directive Response Recorded Date/ Time Name of Medical Power of Marketing Representative March 26, 2022 1:51pm Living Will Yes March 26 1:51pm Power of Marketing Representative Yes March 26, 2022 1:51pm Advance Directive Response Recorded Date/ Time Name of Medical Power of Marketing Representative SPOUSE March 28, 2023 8:45am Living Will Yes March 28 8:45am Power of Marketing Representative Yes March 28, 2023 8:45am Advance Directive Response Recorded Date/ Time Name of Medical Power of Marketing Representative SPOUSE March 28, 2023 8:45am Name of Medical Power of Marketing Representative BARON, . NEXT AUSTIN VASQUEZ. April 15, 2023 1:12pm Living Will Yes April 15, 023 1:12pm Power of Marketing Representative Yes April 15, 2023 1:12pm Advance Directive Response Recorded Date/ Time Name of Medical Power of Marketing Representative SPOUSE March 28, 2023 9:45am Name of Medical Power of Marketing Representative BARON, . NEXT ASUTIN VASQUEZ. 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 Advance Directive(s) 04/01/2024 8:27 AM Date Activated Date Inactivated Comments 04/06/2024 4:16 PM 04/11/2024 1:50 PM Question Answer Comments Full Code Order Discussed With: Patient Documents on File Type Date Recorded 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 Specialist Expl anation Advance Directive(s) 04/01/2024 8:27 AM Date Activated Date Inactivated Comments 04/06/2024 4:16 PM 04/11/2024 1:50 PM Question Answer Comments Full Code Order Discussed With: Patient Chief Complaint and Reason for Visit Chief Complaint Admit Date 1 Y FU November 23, 2024 9:0 1am E ORDERS November 23, 2024 10: 57am Reason for Visit Admit Date Aortic regurgitation November 23, 2024 9: 01am Carotid artery stenosis November 23, 2024 9:01am Hyperlipidemia November 23, 2024 9:0 1am PAC (premature atrial contraction) Augus t 2024 9:01am Chief Complaint BENIGN MENINGIOMA OF BRAIN Chief Complaint BENIGN MENINGIOMA OF BRAIN BACK PAIN Chief Complaint BACK PAIN Amb Documentation IRREG. HR (SELF) CARDIAC ARRHYTHMIA Reason for Visit Benign meningioma of brain Carotid artery stenosis Hyperlipidemia Irregular heart rhythm Chief Complaint BACK PAIN Amb Documentation IRREG. HR (SELF) CARDIAC ARRHYTHMIA ABNORMAL ECG ABNORMAL ECG Reason for Visit Benign meningioma of brain Carotid artery stenosis Hyperlipidemia Irregular heart rhythm Chief Complaint Amb Documentation IRREG. HR (SELF) CARDIAC ARRHYTHMIA ABNORMAL ECG ABNORMAL ECG LUMP ON RT UPPER ABDOMEN 3 M FU E ORDERS Reason for Visit Benign meningioma of brain Carotid artery stenosis Hyperlipidemia Irregular heart rhythm Carpal tunnel syndrome Melanotic stools Recurrent incisional hernia with incarceration Benign meningioma of brain Aortic regurgitation Carotid artery stenosis Hyperlipidemia Irregular heart rhythm Chief Complaint LUMBAR STENOSIS. RX HERE POSITIVE COLOGUARD Chief Complaint POSITIVE COLOGUARD LUMBAR STENOSIS. RX HERE Reason for Visit Melanotic stools Chief Complaint Discuss difficulty w ith BM's back Reason for Visit Change in bowel habi t Rectal pressure Ventral incisional hernia without obstruction or gangrene Chief Complaint Admit Date 1 Y FU November 23, 2024 9:0 1am Chief Complaint Admit Date 1 Y FU November 23, 2024 9:0 1am E ORDERS November 23, 2024 10: 57am DIZZINESS,MURMUR December 14, 2024 7: 55am Reason for Referral Specialty Diagnoses / Procedures Referred By Shana phillips Referred To Contact MR IMAGING Diagnoses Benign meningioma of brain (HCC) Benign neoplasm of meninges (HCC) Procedures MRI BRAIN WO/W IVCON MRI BRAIN BRAIN STEM W/O W/CONTRAST MATERIAL Katia Boykin, SENIOR GAMES TECHNICIAN.FINANCE SPECIALIST [address] [place] [address] Mr Imaging Referral ID Status Reason Start Date Expiration Date V isits Requested Visits Authorized [id number] Closed Auto-Generate d Referral 11/13/2021 12/13/2022 1 1 Specialty Diagnoses / Procedures Referred By Shana phillips Referred To Contact CT IMAGING Diagnoses Benign meningioma of brain (HCC) Benign neoplasm of meninges (HCC) Procedures CT BRAIN WO IVCON CT HEAD/BRAIN W/O CONTRAST MATERIAL Katia Boykin, SENIOR GAMES TECHNICIAN.FINANCE SPECIALIST [address] [place] [address] Ct Imaging Referral ID Status Reason Start Date Expiration Date V isits Requested Visits Authorized [id number] Closed Auto-Generate d Referral 11/13/2021 12/13/2022 1 1 Specialty Diagnoses / Procedures Referred By Contac t Referred To Contact [facility] Diagnoses Acute left-sided thoracic back pain Left Achilles tendinitis Procedures CONSULT TO PHYSICAL THERAPY PHYSICAL THERAPY EVALUATION HIGH COMPLEX 45 MINS Gavin Tran MD [address] [place] [address] [facility] [address] [address] Referral ID Status Reason Start Date Expiration Date Visits Requested Visits Authorized [id number] Authorized Auto-Generat ed Referral 11/22/2021 04/20/2022 1 1 Specialty Diagnoses / Procedures Referred By Contac t Referred To Contact [facility] Diagnoses Acute left-sided thoracic back pain Left Achilles tendinitis Procedures PT REHAB FOLLOW UP ORDER THERAPEUTIC EXERCISES RE, EA 15 MIN. [facility] [address] [address] Referral ID Status Reason Start Date Expiration Date Visits Requested Visits Authorized [id number] Pending Review PCP Requested Referral Auto-Generate d Referral 11/26/2021 02/24/2022 1 1 Specialty Diagnoses / Procedures Referred By Contac t Referred To Contact [facility] Diagnoses Left Achilles tendinitis Acute left-sided thoracic back pain Procedures PT REHAB FOLLOW UP ORDER THERAPEUTIC EXERCISES RE, EA 15 MIN. [facility] [address] [address] Referral ID Status Reason Start Date Expiration Date V isits Requested Visits Authorized [id number] Closed PCP Requested Referral Auto-Generated Referral 12/25/2021 03/25/2022 1 1 Specialty Diagnoses / Procedures Referred By Contac t Referred To Contact MR IMAGING Diagnoses Secondary malignant neoplasm of brain (HCC) Procedures MRI BRAIN WO/W IVCON MRI BRAIN BRAIN STEM W/O W/CONTRAST MATERIAL Bernabe Cox MD [address] [address] Mr Imaging Referral ID Status Reason Start Date Expiration Date V isits Requested Visits Authorized [id number] Closed Auto-Generate d Referral 01/16/2022 02/15/2023 1 1 Specialty Diagnoses / Procedures Referred By Contac t Referred To Contact CT IMAGING Diagnoses Secondary malignant neoplasm of brain (HCC) Procedures CT BRAIN WO IVCON CT HEAD/BRAIN W/O CONTRAST MATERIAL Bernabe Cox MD [address] [place] [place] [address] Ct Imaging Referral ID Status Reason Start Date Expiration Date V isits Requested Visits Authorized [id number] Closed Auto-Generate d Referral 01/16/2022 02/15/2023 1 1 Referral ID Status Reason Start Date Expiration Date Visits Requested Visits Authorized [id number] Pending Review Auto-Generat ed Referral 2 03/07/2023 1 1 Referral ID Status Reason Start Date Expiration Date Visits Requested Visits Authorized [id number] Pending Review Auto-Generat ed Referral 2 03/07/2023 1 1 Referral ID Status Reason Start Date Expiration Date Visits Requested Visits Authorized [id number] Pending Review Patient Cleared - Admin/Chair man/Directo r advise to proceed 2 03/07/2023 1 1 Referral ID Status Reason Start Date Expiration Date Visits Requested Visits Authorized [id number] Pending Review Patient Cleared - Admin/Chair man/Directo r advise to proceed 2 03/07/2023 1 1 Specialty Diagnoses / Procedures Referred By Contac t Referred To Contact MR IMAGING Diagnoses Benign meningioma of brain (HCC) Procedures MRI BRAIN WO/W IVCON MRI BRAIN BRAIN STEM W/O W/CONTRAST MATERIAL Katia Boykin, SENIOR GAMES TECHNICIAN.FINANCE SPECIALIST [address] [place] [place] [address] Mr Imaging Referral ID Status Reason Start Date Expiration Date V isits Requested Visits Authorized [id number] Closed Auto-Generate d Referral 07/30/2022 09/28/2022 1 1 Specialty Diagnoses / Procedures Referred By Contac t Referred To Contact Diagnoses Benign meningioma of brain (HCC) Claustrophobia Katia Boykin, SENIOR GAMES TECHNICIAN.FINANCE SPECIALIST [address] [place] [address] Referral ID Status Reason Start Date Expiration Date V isits Requested Visits Authorized [id number] Authorized 04/21/2023 09/26/2023 1 1 Specialty Diagnoses / Procedures Referred By Contac t Referred To Contact MR IMAGING Diagnoses Benign meningioma of brain (HCC) Procedures MRI BRAIN WO/W IVCON MRI BRAIN BRAIN STEM W/O W/CONTRAST MATERIAL Katia Boykin, SENIOR GAMES TECHNICIAN.FINANCE SPECIALIST [address] [place] [address] [place] [id number] Referral ID Status Reason Start Date Expiration Date Visits Requested Visits Authorized [id number] Authorized Auto-Generat ed Referral 09/23/2023 10/22/2024 1 1 Specialty Diagnoses / Procedures Referred By Contac t Referred To Contact [facility] Diagnoses Primary osteoarthritis of left hip Left leg weakness Procedures CONSULT TO PHYSICAL THERAPY PHYSICAL THERAPY EVALUATION HIGH COMPLEX 45 MINS Gavin Tran MD [address] [place] [address] [facility] [address] [place] [address] Referral ID Status Reason Start Date Expiration Date Visits Requested Visits Authorized [id number] Pending Review Auto-Generat ed Referral 02/28/2024 02/27/2025 1 1 Health Concerns Infection Onset Date Last Indicated Resolved Time COVID-19 Confirmed 02/27/2023 02/27/2023 Additional Source Comments INFORMATION SOURCE (unrecogn ized section and content) DATE CREATED AUTHOR 11/07/2019 [facility] DATE CREATED AUTHOR AUTHOR'S ORGANIZ ATION 11/12/2019 [facility] DATE CREATED AUTHOR AUTHOR'S ORGANIZ ATION 05/01/2024 [facility] DATE CREATED AUTHOR AUTHOR'S ORGANIZ ATION 12/01/2024 [facility] DATE CREATED AUTHOR AUTHOR'S ORGANIZ ATION 12/19/2024 [facility] DATE CREATED AUTHOR AUTHOR'S ORGANIZ ATION 12/22/2024 [facility] Source Comments (unrecognize d section and content) In the event this informatio n is protected by the Federal Confidentiality of Alcohol and Drug Abuse Patient Records regulations: The Federal rules restrict any use of the information to criminally investigate or prosecute any alcohol or drug abuse patient.[facility] the event this information is protected by the Federal Confidentiality of Alcohol and Drug Abuse Patient Records regulations: The Federal rules restrict any use of the information to criminally investigate or prosecute any alcohol or drug abuse patient.[facility] the event this information is protected by the Federal Confidentiality of Alcohol and Drug Abuse Patient Records regulations: The Federal rules restrict any use of the information to criminally investigate or prosecute any alcohol or drug abuse patient.[facility]In the event this information is protected by the Federal Confidentiality of Alcohol and Drug Abuse Patient Records regulations: The Federal rules restrict any use of the information to criminally investigate or prosecute any alcohol or drug abuse patient.[facility] HospitalIn the event this information is protected by the Federal Confidentiality of Alcohol and Drug Abuse Patient Records regulations: The Federal rules restrict any use of the information to criminally investigate or prosecute any alcohol or drug abuse patient.[facility] HospitalIn the event this information is protected by the Federal Confidentiality of Alcohol and Drug Abuse Patient Records regulations: The Federal rules restrict any use of the information to criminally investigate or prosecute any alcohol or drug abuse patient.[facility] HospitalIn the event this information is protected by the Federal Confidentiality of Alcohol and Drug Abuse Patient Records regulations: The Federal rules restrict any use of the information to criminally investigate or prosecute any alcohol or drug abuse patient.[facility] HospitalIn the event this information is protected by the Federal Confidentiality of Alcohol and Drug Abuse Patient Records regulations: The Federal rules restrict any use of the information to criminally investigate or prosecute any alcohol or drug abuse patient.[facility] HospitalIn the event this information is protected by the Federal Confidentiality of Alcohol and Drug Abuse Patient Records regulations: The Federal rules restrict any use of the information to criminally investigate or prosecute any alcohol or drug abuse patient.[facility] HospitalIn the event this information is protected by the Federal Confidentiality of Alcohol and Drug Abuse Patient Records regulations: The Federal rules restrict any use of the information to criminally investigate or prosecute any alcohol or drug abuse patient.[facility] HospitalIn the event this information is protected by the Federal Confidentiality of Alcohol and Drug Abuse Patient Records regulations: The Federal rules restrict any use of the information to criminally investigate or prosecute any alcohol or drug abuse patient.[facility] HospitalIn the event this information is protected by the Federal Confidentiality of Alcohol and Drug Abuse Patient Records regulations: The Federal rules restrict any use of the information to criminally investigate or prosecute any alcohol or drug abuse patient.[facility] HospitalIn the event this information is protected by the Federal Confidentiality of Alcohol and Drug Abuse Patient Records regulations: The Federal rules restrict any use of the information to criminally investigate or prosecute any alcohol or drug abuse patient.[facility] HospitalIn the event this information is protected by the Federal Confidentiality of Alcohol and Drug Abuse Patient Records regulations: The Federal rules restrict any use of the information to criminally investigate or prosecute any alcohol or drug abuse patient.[facility] HospitalIn the event this information is protected by the Federal Confidentiality of Alcohol and Drug Abuse Patient Records regulations: The Federal rules restrict any use of the information to criminally investigate or prosecute any alcohol or drug abuse patient.[facility] HospitalIn the event this information is protected by the Federal Confidentiality of Alcohol and Drug Abuse Patient Records regulations: The Federal rules restrict any use of the information to criminally investigate or prosecute any alcohol or drug abuse patient.[facility] HospitalIn the event this information is protected by the Federal Confidentiality of Alcohol and Drug Abuse Patient Records regulations: The Federal rules restrict any use of the information to criminally investigate or prosecute any alcohol or drug abuse patient.[facility] HospitalIn the event this information is protected by the Federal Confidentiality of Alcohol and Drug Abuse Patient Records regulations: The Federal rules restrict any use of the information to criminally investigate or prosecute any alcohol or drug abuse patient.[facility] HospitalIn the event this information is protected by the Federal Confidentiality of Alcohol and Drug Abuse Patient Records regulations: The Federal rules restrict any use of the information to criminally investigate or prosecute any alcohol or drug abuse patient.[facility] HospitalIn the event this information is protected by the Federal Confidentiality of Alcohol and Drug Abuse Patient Records regulations: The Federal rules restrict any use of the information to criminally investigate or prosecute any alcohol or drug abuse patient.[facility] HospitalIn the event this information is protected by the Federal Confidentiality of Alcohol and Drug Abuse Patient Records regulations: The Federal rules restrict any use of the information to criminally investigate or prosecute any alcohol or drug abuse patient.[facility] HospitalIn the event this information is protected by the Federal Confidentiality of Alcohol and Drug Abuse Patient Records regulations: The Federal rules restrict any use of the information to criminally investigate or prosecute any alcohol or drug abuse patient.[facility] HospitalIn the event this information is protected by the Federal Confidentiality of Alcohol and Drug Abuse Patient Records regulations: The Federal rules restrict any use of the information to criminally investigate or prosecute any alcohol or drug abuse patient.[facility] HospitalIn the event this information is protected by the Federal Confidentiality of Alcohol and Drug Abuse Patient Records regulations: The Federal rules restrict any use of the information to criminally investigate or prosecute any alcohol or drug abuse patient.[facility] HospitalIn the event this information is protected by the Federal Confidentiality of Alcohol and Drug Abuse Patient Records regulations: The Federal rules restrict any use of the information to criminally investigate or prosecute any alcohol or drug abuse patient.[facility] HospitalIn the event this information is protected by the Federal Confidentiality of Alcohol and Drug Abuse Patient Records regulations: The Federal rules restrict any use of the information to criminally investigate or prosecute any alcohol or drug abuse patient.[facility] HospitalIn the event this information is protected by the Federal Confidentiality of Alcohol and Drug Abuse Patient Records regulations: The Federal rules restrict any use of the information to criminally investigate or prosecute any alcohol or drug abuse patient.[facility] HospitalIn the event this information is protected by the Federal Confidentiality of Alcohol and Drug Abuse Patient Records regulations: The Federal rules restrict any use of the information to criminally investigate or prosecute any alcohol or drug abuse patient.[facility] HospitalIn the event this information is protected by the Federal Confidentiality of Alcohol and Drug Abuse Patient Records regulations: The Federal rules restrict any use of the information to criminally investigate or prosecute any alcohol or drug abuse patient.[facility] HospitalIn the event this information is protected by the Federal Confidentiality of Alcohol and Drug Abuse Patient Records regulations: The Federal rules restrict any use of the information to criminally investigate or prosecute any alcohol or drug abuse patient.[facility] HospitalIn the event this information is protected by the Federal Confidentiality of Alcohol and Drug Abuse Patient Records regulations: The Federal rules restrict any use of the information to criminally investigate or prosecute any alcohol or drug abuse patient.[facility] HospitalIn the event this information is protected by the Federal Confidentiality of Alcohol and Drug Abuse Patient Records regulations: The Federal rules restrict any use of the information to criminally investigate or prosecute any alcohol or drug abuse patient.[facility] HospitalIn the event this information is protected by the Federal Confidentiality of Alcohol and Drug Abuse Patient Records regulations: The Federal rules restrict any use of the information to criminally investigate or prosecute any alcohol or drug abuse patient.[facility] HospitalIn the event this information is protected by the Federal Confidentiality of Alcohol and Drug Abuse Patient Records regulations: The Federal rules restrict any use of the information to criminally investigate or prosecute any alcohol or drug abuse patient.[facility] HospitalIn the event this information is protected by the Federal Confidentiality of Alcohol and Drug Abuse Patient Records regulations: The Federal rules restrict any use of the information to criminally investigate or prosecute any alcohol or drug abuse patient.[facility] HospitalIn the event this information is protected by the Federal Confidentiality of Alcohol and Drug Abuse Patient Records regulations: The Federal rules restrict any use of the information to criminally investigate or prosecute any alcohol or drug abuse patient.[facility] HospitalIn the event this information is protected by the Federal Confidentiality of Alcohol and Drug Abuse Patient Records regulations: The Federal rules restrict any use of the information to criminally investigate or prosecute any alcohol or drug abuse patient.[facility] HospitalIn the event this information is protected by the Federal Confidentiality of Alcohol and Drug Abuse Patient Records regulations: The Federal rules restrict any use of the information to criminally investigate or prosecute any alcohol or drug abuse patient.[facility] HospitalIn the event this information is protected by the Federal Confidentiality of Alcohol and Drug Abuse Patient Records regulations: The Federal rules restrict any use of the information to criminally investigate or prosecute any alcohol or drug abuse patient.[facility] HospitalIn the event this information is protected by the Federal Confidentiality of Alcohol and Drug Abuse Patient Records regulations: The Federal rules restrict any use of the information to criminally investigate or prosecute any alcohol or drug abuse patient.[facility] HospitalIn the event this information is protected by the Federal Confidentiality of Alcohol and Drug Abuse Patient Records regulations: The Federal rules restrict any use of the information to criminally investigate or prosecute any alcohol or drug abuse patient.[facility] HospitalIn the event this information is protected by the Federal Confidentiality of Alcohol and Drug Abuse Patient Records regulations: The Federal rules restrict any use of the information to criminally investigate or prosecute any alcohol or drug abuse patient.[facility] HospitalIn the event this information is protected by the Federal Confidentiality of Alcohol and Drug Abuse Patient Records regulations: The Federal rules restrict any use of the information to criminally investigate or prosecute any alcohol or drug abuse patient.[facility] HospitalIn the event this information is protected by the Federal Confidentiality of Alcohol and Drug Abuse Patient Records regulations: The Federal rules restrict any use of the information to criminally investigate or prosecute any alcohol or drug abuse patient.[facility] HospitalIn the event this information is protected by the Federal Confidentiality of Alcohol and Drug Abuse Patient Records regulations: The Federal rules restrict any use of the information to criminally investigate or prosecute any alcohol or drug abuse patient.[facility] HospitalIn the event this information is protected by the Federal Confidentiality of Alcohol and Drug Abuse Patient Records regulations: The Federal rules restrict any use of the information to criminally investigate or prosecute any alcohol or drug abuse patient.[facility] HospitalIn the event this information is protected by the Federal Confidentiality of Alcohol and Drug Abuse Patient Records regulations: The Federal rules restrict any use of the information to criminally investigate or prosecute any alcohol or drug abuse patient.[facility] HospitalIn the event this information is protected by the Federal Confidentiality of Alcohol and Drug Abuse Patient Records regulations: The Federal rules restrict any use of the information to criminally investigate or prosecute any alcohol or drug abuse patient.[facility] HospitalIn the event this information is protected by the Federal Confidentiality of Alcohol and Drug Abuse Patient Records regulations: The Federal rules restrict any use of the information to criminally investigate or prosecute any alcohol or drug abuse patient.[facility] HospitalIn the event this information is protected by the Federal Confidentiality of Alcohol and Drug Abuse Patient Records regulations: The Federal rules restrict any use of the information to criminally investigate or prosecute any alcohol or drug abuse patient.[facility] HospitalIn the event this information is protected by the Federal Confidentiality of Alcohol and Drug Abuse Patient Records regulations: The Federal rules restrict any use of the information to criminally investigate or prosecute any alcohol or drug abuse patient.[facility] HospitalIn the event this information is protected by the Federal Confidentiality of Alcohol and Drug Abuse Patient Records regulations: The Federal rules restrict any use of the information to criminally investigate or prosecute any alcohol or drug abuse patient.[facility] HospitalIn the event this information is protected by the Federal Confidentiality of Alcohol and Drug Abuse Patient Records regulations: The Federal rules restrict any use of the information to criminally investigate or prosecute any alcohol or drug abuse patient.[facility] HospitalIn the event this information is protected by the Federal Confidentiality of Alcohol and Drug Abuse Patient Records regulations: The Federal rules restrict any use of the information to criminally investigate or prosecute any alcohol or drug abuse patient.[facility] HospitalIn the event this information is protected by the Federal Confidentiality of Alcohol and Drug Abuse Patient Records regulations: The Federal rules restrict any use of the information to criminally investigate or prosecute any alcohol or drug abuse patient.[facility] HospitalIn the event this information is protected by the Federal Confidentiality of Alcohol and Drug Abuse Patient Records regulations: The Federal rules restrict any use of the information to criminally investigate or prosecute any alcohol or drug abuse patient.[facility] HospitalIn the event this information is protected by the Federal Confidentiality of Alcohol and Drug Abuse Patient Records regulations: The Federal rules restrict any use of the information to criminally investigate or prosecute any alcohol or drug abuse patient.[facility] HospitalIn the event this information is protected by the Federal Confidentiality of Alcohol and Drug Abuse Patient Records regulations: The Federal rules restrict any use of the information to criminally investigate or prosecute any alcohol or drug abuse patient.[facility] HospitalIn the event this information is protected by the Federal Confidentiality of Alcohol and Drug Abuse Patient Records regulations: The Federal rules restrict any use of the information to criminally investigate or prosecute any alcohol or drug abuse patient.[facility] HospitalIn the event this information is protected by the Federal Confidentiality of Alcohol and Drug Abuse Patient Records regulations: The Federal rules restrict any use of the information to criminally investigate or prosecute any alcohol or drug abuse patient.[facility] HospitalIn the event this information is protected by the Federal Confidentiality of Alcohol and Drug Abuse Patient Records regulations: The Federal rules restrict any use of the information to criminally investigate or prosecute any alcohol or drug abuse patient.[facility] HospitalIn the event this information is protected by the Federal Confidentiality of Alcohol and Drug Abuse Patient Records regulations: The Federal rules restrict any use of the information to criminally investigate or prosecute any alcohol or drug abuse patient.[facility] HospitalIn the event this information is protected by the Federal Confidentiality of Alcohol and Drug Abuse Patient Records regulations: The Federal rules restrict any use of the information to criminally investigate or prosecute any alcohol or drug abuse patient.[facility] HospitalIn the event this information is protected by the Federal Confidentiality of Alcohol and Drug Abuse Patient Records regulations: The Federal rules restrict any use of the information to criminally investigate or prosecute any alcohol or drug abuse patient.[facility] HospitalIn the event this information is protected by the Federal Confidentiality of Alcohol and Drug Abuse Patient Records regulations: The Federal rules restrict any use of the information to criminally investigate or prosecute any alcohol or drug abuse patient.[facility] HospitalIn the event this information is protected by the Federal Confidentiality of Alcohol and Drug Abuse Patient Records regulations: The Federal rules restrict any use of the information to criminally investigate or prosecute any alcohol or drug abuse patient.[facility] HospitalIn the event this information is protected by the Federal Confidentiality of Alcohol and Drug Abuse Patient Records regulations: The Federal rules restrict any use of the information to criminally investigate or prosecute any alcohol or drug abuse patient.[facility] HospitalIn the event this information is protected by the Federal Confidentiality of Alcohol and Drug Abuse Patient Records regulations: The Federal rules restrict any use of the information to criminally investigate or prosecute any alcohol or drug abuse patient.[facility] HospitalIn the event this information is protected by the Federal Confidentiality of Alcohol and Drug Abuse Patient Records regulations: The Federal rules restrict any use of the information to criminally investigate or prosecute any alcohol or drug abuse patient.[facility] HospitalIn the event this information is protected by the Federal Confidentiality of Alcohol and Drug Abuse Patient Records regulations: The Federal rules restrict any use of the information to criminally investigate or prosecute any alcohol or drug abuse patient.[facility] HospitalIn the event this information is protected by the Federal Confidentiality of Alcohol and Drug Abuse Patient Records regulations: The Federal rules restrict any use of the information to criminally investigate or prosecute any alcohol or drug abuse patient.[facility] HospitalIn the event this information is protected by the Federal Confidentiality of Alcohol and Drug Abuse Patient Records regulations: The Federal rules restrict any use of the information to criminally investigate or prosecute any alcohol or drug abuse patient.[facility] HospitalIn the event this information is protected by the Federal Confidentiality of Alcohol and Drug Abuse Patient Records regulations: The Federal rules restrict any use of the information to criminally investigate or prosecute any alcohol or drug abuse patient.[facility] HospitalIn the event this information is protected by the Federal Confidentiality of Alcohol and Drug Abuse Patient Records regulations: The Federal rules restrict any use of the information to criminally investigate or prosecute any alcohol or drug abuse patient.[facility] HospitalIn the event this information is protected by the Federal Confidentiality of Alcohol and Drug Abuse Patient Records regulations: The Federal rules restrict any use of the information to criminally investigate or prosecute any alcohol or drug abuse patient.[facility] HospitalIn the event this information is protected by the Federal Confidentiality of Alcohol and Drug Abuse Patient Records regulations: The Federal rules restrict any use of the information to criminally investigate or prosecute any alcohol or drug abuse patient.[facility] HospitalIn the event this information is protected by the Federal Confidentiality of Alcohol and Drug Abuse Patient Records regulations: The Federal rules restrict any use of the information to criminally investigate or prosecute any alcohol or drug abuse patient.[facility] HospitalIn the event this information is protected by the Federal Confidentiality of Alcohol and Drug Abuse Patient Records regulations: The Federal rules restrict any use of the information to criminally investigate or prosecute any alcohol or drug abuse patient.[facility] HospitalIn the event this information is protected by the Federal Confidentiality of Alcohol and Drug Abuse Patient Records regulations: The Federal rules restrict any use of the information to criminally investigate or prosecute any alcohol or drug abuse patient.[facility] HospitalIn the event this information is protected by the Federal Confidentiality of Alcohol and Drug Abuse Patient Records regulations: The Federal rules restrict any use of the information to criminally investigate or prosecute any alcohol or drug abuse patient.[facility] HospitalIn the event this information is protected by the Federal Confidentiality of Alcohol and Drug Abuse Patient Records regulations: The Federal rules restrict any use of the information to criminally investigate or prosecute any alcohol or drug abuse patient.[facility] HospitalIn the event this information is protected by the Federal Confidentiality of Alcohol and Drug Abuse Patient Records regulations: The Federal rules restrict any use of the information to criminally investigate or prosecute any alcohol or drug abuse patient.[facility] HospitalIn the event this information is protected by the Federal Confidentiality of Alcohol and Drug Abuse Patient Records regulations: The Federal rules restrict any use of the information to criminally investigate or prosecute any alcohol or drug abuse patient.[facility] HospitalIn the event this information is protected by the Federal Confidentiality of Alcohol and Drug Abuse Patient Records regulations: The Federal rules restrict any use of the information to criminally investigate or prosecute any alcohol or drug abuse patient.[facility] HospitalIn the event this information is protected by the Federal Confidentiality of Alcohol and Drug Abuse Patient Records regulations: The Federal rules restrict any use of the information to criminally investigate or prosecute any alcohol or drug abuse patient.[facility] HospitalIn the event this information is protected by the Federal Confidentiality of Alcohol and Drug Abuse Patient Records regulations: The Federal rules restrict any use of the information to criminally investigate or prosecute any alcohol or drug abuse patient.[facility] HospitalIn the event this information is protected by the Federal Confidentiality of Alcohol and Drug Abuse Patient Records regulations: The Federal rules restrict any use of the information to criminally investigate or prosecute any alcohol or drug abuse patient.[facility] HospitalIn the event this information is protected by the Federal Confidentiality of Alcohol and Drug Abuse Patient Records regulations: The Federal rules restrict any use of the information to criminally investigate or prosecute any alcohol or drug abuse patient.[facility] HospitalIn the event this information is protected by the Federal Confidentiality of Alcohol and Drug Abuse Patient Records regulations: The Federal rules restrict any use of the information to criminally investigate or prosecute any alcohol or drug abuse patient.[facility] HospitalIn the event this information is protected by the Federal Confidentiality of Alcohol and Drug Abuse Patient Records regulations: The Federal rules restrict any use of the information to criminally investigate or prosecute any alcohol or drug abuse patient.[facility] HospitalIn the event this information is protected by the Federal Confidentiality of Alcohol and Drug Abuse Patient Records regulations: The Federal rules restrict any use of the information to criminally investigate or prosecute any alcohol or drug abuse patient.[facility] HospitalIn the event this information is protected by the Federal Confidentiality of Alcohol and Drug Abuse Patient Records regulations: The Federal rules restrict any use of the information to criminally investigate or prosecute any alcohol or drug abuse patient.[facility] HospitalIn the event this information is protected by the Federal Confidentiality of Alcohol and Drug Abuse Patient Records regulations: The Federal rules restrict any use of the information to criminally investigate or prosecute any alcohol or drug abuse patient.[facility] HospitalIn the event this information is protected by the Federal Confidentiality of Alcohol and Drug Abuse Patient Records regulations: The Federal rules restrict any use of the information to criminally investigate or prosecute any alcohol or drug abuse patient.[facility] HospitalIn the event this information is protected by the Federal Confidentiality of Alcohol and Drug Abuse Patient Records regulations: The Federal rules restrict any use of the information to criminally investigate or prosecute any alcohol or drug abuse patient.[facility] HospitalIn the event this information is protected by the Federal Confidentiality of Alcohol and Drug Abuse Patient Records regulations: The Federal rules restrict any use of the information to criminally investigate or prosecute any alcohol or drug abuse patient.[facility] HospitalIn the event this information is protected by the Federal Confidentiality of Alcohol and Drug Abuse Patient Records regulations: The Federal rules restrict any use of the information to criminally investigate or prosecute any alcohol or drug abuse patient.[facility] HospitalIn the event this information is protected by the Federal Confidentiality of Alcohol and Drug Abuse Patient Records regulations: The Federal rules restrict any use of the information to criminally investigate or prosecute any alcohol or drug abuse patient.[facility] HospitalIn the event this information is protected by the Federal Confidentiality of Alcohol and Drug Abuse Patient Records regulations: The Federal rules restrict any use of the information to criminally investigate or prosecute any alcohol or drug abuse patient.[facility] HospitalIn the event this information is protected by the Federal Confidentiality of Alcohol and Drug Abuse Patient Records regulations: The Federal rules restrict any use of the information to criminally investigate or prosecute any alcohol or drug abuse patient.[facility] HospitalIn the event this information is protected by the Federal Confidentiality of Alcohol and Drug Abuse Patient Records regulations: The Federal rules restrict any use of the information to criminally investigate or prosecute any alcohol or drug abuse patient.[facility] HospitalIn the event this information is protected by the Federal Confidentiality of Alcohol and Drug Abuse Patient Records regulations: The Federal rules restrict any use of the information to criminally investigate or prosecute any alcohol or drug abuse patient.[facility] HospitalIn the event this information is protected by the Federal Confidentiality of Alcohol and Drug Abuse Patient Records regulations: The Federal rules restrict any use of the information to criminally investigate or prosecute any alcohol or drug abuse patient.[facility] HospitalIn the event this information is protected by the Federal Confidentiality of Alcohol and Drug Abuse Patient Records regulations: The Federal rules restrict any use of the information to criminally investigate or prosecute any alcohol or drug abuse patient.[facility] HospitalIn the event this information is protected by the Federal Confidentiality of Alcohol and Drug Abuse Patient Records regulations: The Federal rules restrict any use of the information to criminally investigate or prosecute any alcohol or drug abuse patient.[facility] HospitalIn the event this information is protected by the Federal Confidentiality of Alcohol and Drug Abuse Patient Records regulations: The Federal rules restrict any use of the information to criminally investigate or prosecute any alcohol or drug abuse patient.[facility] HospitalIn the event this information is protected by the Federal Confidentiality of Alcohol and Drug Abuse Patient Records regulations: The Federal rules restrict any use of the information to criminally investigate or prosecute any alcohol or drug abuse patient.[facility] HospitalIn the event this information is protected by the Federal Confidentiality of Alcohol and Drug Abuse Patient Records regulations: The Federal rules restrict any use of the information to criminally investigate or prosecute any alcohol or drug abuse patient.[facility] HospitalIn the event this information is protected by the Federal Confidentiality of Alcohol and Drug Abuse Patient Records regulations: The Federal rules restrict any use of the information to criminally investigate or prosecute any alcohol or drug abuse patient.[facility] HospitalIn the event this information is protected by the Federal Confidentiality of Alcohol and Drug Abuse Patient Records regulations: The Federal rules restrict any use of the information to criminally investigate or prosecute any alcohol or drug abuse patient.[facility] HospitalIn the event this information is protected by the Federal Confidentiality of Alcohol and Drug Abuse Patient Records regulations: The Federal rules restrict any use of the information to criminally investigate or prosecute any alcohol or drug abuse patient.[facility] HospitalIn the event this information is protected by the Federal Confidentiality of Alcohol and Drug Abuse Patient Records regulations: The Federal rules restrict any use of the information to criminally investigate or prosecute any alcohol or drug abuse patient.[facility] HospitalIn the event this information is protected by the Federal Confidentiality of Alcohol and Drug Abuse Patient Records regulations: The Federal rules restrict any use of the information to criminally investigate or prosecute any alcohol or drug abuse patient.[facility] Reason for Visit (unrecogniz ed section and content) Reason Comments PT Discharge Specialty Diagnoses / Procedures Referred By Shana phillips Referred To Contact [facility] Diagnoses Acute left-sided thoracic back pain Left Achilles tendinitis Procedures CONSULT TO PHYSICAL THERAPY PHYSICAL THERAPY EVALUATION HIGH COMPLEX 45 MINS Gavin Tran MD [address] [place] [address] [facility] [address] [place] [address] Referral ID Status Reason Start Date Expiration Date V isits Requested Visits Authorized [id number] Closed Auto-Generate d Referral 11/22/2021 04/20/2022 1 1 Reason Comments MRI Scheduling Reason Comments Established Patient Reason Comments Appointment Reason Comments Results Treatment plan Reason Comments Patient Update Reason Comments Consult Reason Comments Recheck routine follow up Reason Comments Back Pain mid back left side, left ankle and heel pain x 4-5 days Reason Comments Procedure Gamma Knife scheduli ng and instructions Reason Comments Erroneous encounter-disregard Reason Comments New Patient Pain Specialty Diagnoses / Procedures Referred By Shana phillips Referred To Contact Podiatry Diagnoses Pain of left heel Procedures CONSULT TO PODIATRY OFFICE/OUTPATIENT NEW HIGH MDM 60-74 MINUTES Older, Catina, SENIOR GAMES TECHNICIAN.FINANCE SPECIALIST [address] [place] [address] Referral ID Status Reason Start Date Expiration Date V isits Requested Visits Authorized [id number] Closed PCP Requested Referral 10/24/2021 10/24/2022 1 1 Reason Comments ED Follow-up Reason Comments PT Eval Reason Comments Physical Therapy Specialty Diagnoses / Procedures Referred By Shana t Referred To Contact [facility] Diagnoses Acute left-sided thoracic back pain Left Achilles tendinitis Procedures CONSULT TO PHYSICAL THERAPY PHYSICAL THERAPY EVALUATION HIGH COMPLEX 45 MINS Gavin Tran MD [address] [place] [address] [facility] [address] [place] [address] Reason Comments Procedure Gamma knife pre-tx c all, pre-op instructions Reason Comments Procedure Post gamma knife pro cedure, irregular heart rate. Specialty Diagnoses / Procedures Referred By Shana phillips Referred To Contact CT IMAGING Diagnoses Benign meningioma of brain (HCC) Benign neoplasm of meninges (HCC) Procedures CT BRAIN WO IVCON CT HEAD/BRAIN W/O CONTRAST MATERIAL Katia Boykin APRN.FINANCE SPECIALIST [address] [place] [address] Ct [facility] Referral ID Status Reason Start Date Expiration Date V isits Requested Visits Authorized [id number] Closed Auto-Generate d Referral 11/13/2021 12/13/2022 1 1 Reason Comments Procedure Gamma Knife srs tx t o brain Reason Comments post procedure call Gamma knife Reason Onset Date Comments Refill Request 01/17/2022 Reason Onset Date Comments Hospital F/U Immunizations 01/17/2022 Flu vaccination Reason Comments pre procedure call gammaknife Specialty Diagnoses / Procedures Referred By Shana t Referred To Contact MR IMAGING Diagnoses Secondary malignant neoplasm of brain (HCC) Procedures MRI BRAIN WO/W IVCON MRI BRAIN BRAIN STEM W/O W/CONTRAST MATERIAL Bernabe Cox MD [address] [place] [address] Mr Imaging Referral ID Status Reason Start Date Expiration Date V isits Requested Visits Authorized [id number] Closed Auto-Generate d Referral 01/16/2022 02/15/2023 1 1 Specialty Diagnoses / Procedures Referred By Contac t Referred To Contact CT IMAGING Diagnoses Secondary malignant neoplasm of brain (HCC) Procedures CT BRAIN WO IVCON CT HEAD/BRAIN W/O CONTRAST MATERIAL Bernabe Cox MD [address] [address] Ct Imaging Referral ID Status Reason Start Date Expiration Date V isits Requested Visits Authorized [id number] Closed Auto-Generate d Referral 01/16/2022 02/15/2023 1 1 Reason Comments Procedure Post procedure call Reason Comments Procedure Gamma knife srs tx t o brain pre-call Reason Comments Procedure Gamma knife srs tx t o brain Specialty Diagnoses / Procedures Referred By [facility] Referred To Contact MR IMAGING Diagnoses Benign meningioma of brain (HCC) Benign neoplasm of meninges (HCC) Procedures MRI BRAIN WO/W IVCON MRI BRAIN BRAIN STEM W/O W/CONTRAST MATERIAL Katia Boykin, SENIOR GAMES TECHNICIAN.FINANCE SPECIALIST [address] [place] [address] Mr Imaging Referral ID Status Reason Start Date Expiration Date Visits Requested Visits Authorized [id number] Pending Review Patient Cleared - Admin/Chair man/Directo r advise to proceed 2 03/07/2023 1 1 Referral ID Status Reason Start Date Expiration Date Visits Requested Visits Authorized [id number] Pending Review Patient Cleared - Admin/Chair man/Directo r advise to proceed 2 03/07/2023 1 1 Reason Comments Back Pain Upper back pain x 1 week Reason Comments Medicare Wellness Exam Reason Comments Consult Blood in stool Specialty Diagnoses / Procedures [facility] Diagnoses Benign meningioma of brain (HCC) Procedures MRI BRAIN WO/W IVCON MRI BRAIN BRAIN STEM W/O W/CONTRAST MATERIAL Katia Boykin, SENIOR GAMES TECHNICIAN.FINANCE SPECIALIST [address] [place] [address] Mr Imaging Referral ID Status Reason Start Date Expiration Date V isits Requested Visits Authorized [id number] Closed Auto-Generate d Referral 07/30/2022 09/28/2022 1 1 Reason Comments Nasal Congestion Sneezing and runny n ose Reason Comments Dizziness Vertigo x 4 days Nasal Congestion Watery runny nose, s neezing x 2 days Reason Comments Results Medication Request Reason Comments Orders Specialty Diagnoses / Procedures Referred By Contac t Referred To Contact RAD MRI [place] CIVILIAN JAIL OFFICER Diagnoses MRI BRAIN WO/W Procedures MRI WWO ARYAN 350 S1 Self Radio Mri [place] Salvage Machine Operator [address] [facility] [place] [address] Referral ID Status Reason Start Date Expiration Date Visits Re quested Visits Authorized [id number] Closed 09/05/2023 12/04/2023 1 1 Specialty Diagnoses / Procedures Referred By Contac t Referred To Contact MR IMAGING Diagnoses Benign meningioma of brain (HCC) Procedures MRI BRAIN WO/W IVCON MRI BRAIN BRAIN STEM W/O W/CONTRAST MATERIAL Katia Boykin, SENIOR GAMES TECHNICIAN.FINANCE SPECIALIST [address] [place] [address] Mr Imaging [facility] Referral ID Status Reason Start Date Expiration Date V isits Requested Visits Authorized [id number] Closed Auto-Generate d Referral 09/23/2023 10/22/2024 1 1 Reason Comments Recheck Order for bone densi ty, and possible carotid US.C/o sharp pain right knee x2 months Reason Comments Rash itching on bilateral arms x 3 days Reason Comments Back Pain Back spasms under le ft shoulder x 2 days Reason Comments Follow Up Bone scan results Reason Onset Date Comments ER F/U Immunizations 01/08/2024 Flu vaccination Reason Comments New Patient Anal Stricture Reason Comments Physical Therapy Pelvic Floor Physica l Therapy Reason Onset Date Comments Refill Request 02/11/2024 Reason Comments Injury to right hand, left hip & right k nee From fall yesterday Reason Comments Results Reason Comments PT Eval Specialty Diagnoses / Procedures Referred By Contac t Referred To Contact [facility] Diagnoses Primary osteoarthritis of left hip Left leg weakness Procedures CONSULT TO PHYSICAL THERAPY PHYSICAL THERAPY EVALUATION HIGH COMPLEX 45 MINS Gavin Tran MD [address] [place] [address] [facility] [address] [place] [address] Referral ID Status Reason Start Date Expiration Date Visits Requested Visits Authorized [id number] Authorized Auto-Generat ed Referral 04/21/2023 04/20/2024 99 99 Reason Comments PT Progress Note Specialty Diagnoses / Procedures Referred By Shana phillips Referred To Contact PHYSICAL THERAPY Diagnoses Primary osteoarthritis of left hip Left leg weakness Procedures CONSULT TO PHYSICAL THERAPY PHYSICAL THERAPY EVALUATION HIGH COMPLEX 45 MINS Gavin Tran MD [address] [place] [address] [facility] [address] [place] [address] Reason Comments Orders Reason Comments Medicare Wellness Exam Reason Onset Date Comments Transition Of Care 04/12/2024 Initial Reason Comments Transition Of Care [facility] discharged on 04/11/24. Partial small bowel obstruction. No surgeryDenies pain but is questioning symptoms of indigestion Reason Onset Date Comments Transition Of Care 04/19/2024 Follow up Reason Comments Established Patient Pain Swelling Reason Comments Established Patient Reason Comments vaginal itching Reason Onset Date Comments Allied Health Visit 09/15/2024 Medication A dherence Outreach Reason Comments F/U 6 months Reason Comments Vaginal Problem Reason Comments tick bite Reason Onset Date Comments Refill Request 11/08/2024 Reason Comments Diarrhea Headache Dizziness Fatigue Nausea Care Teams (unrecognized sec tion and content) Supervisor Publications Relationship Specialty Start Date End Date Gavin Tran MD [address] [place], [place] [address]351 PCP - General Internal Medicine 01/13/12 Supervisor Publications Relationship Specialty Start Date End Date Gavin Tran MD [address] [place], [place] [id number] PCP - General Internal Medicine 01/13/12 Supervisor Publications Relationship Specialty Start Date End Date Gavin Tran MD [address] [place], [place] [address]781 PCP - General Internal Medicine 01/13/12 Supervisor Publications Relationship Specialty Start Date End Date Gavin Tran MD [address] [facility] [place] [address] PCP - General Internal Medicine 01/13/12 Supervisor Publications Relationship Specialty Start Date End Date Gavin Tran MD [address] [facility] [place] [address] PCP - General Internal Medicine 01/13/12 Supervisor Publications Relationship Specialty Start Date End Date Gavin Tran MD [address] [facility] [place] [place] [address] PCP - General Internal Medicine 01/13/12 Bernabe Cox MD [address] [place] [address] Referring Neurosurgery 10/04/21 Ignacia Dawn MD [address] [place] [address] [place], [place] [id number] Physician Radiation Oncology 10/04/21 Supervisor Publications Relationship Specialty Start Date End Date Gavin Tran MD [address] [place] [address] PCP - General Internal Medicine 01/13/12 Bernabe Cox MD [address] [facility] [place] [address] Referring Neurosurgery 10/04/21 Ignacia Dawn MD [address] [place] [address] [place], [place] [id number] Physician Radiation Oncology 10/04/21 Supervisor Publications Relationship Specialty Start Date End Date Gavin Tran MD [address] [place] [address] PCP - General Internal Medicine 01/13/12 Bernabe Cox MD [address] [facility] [place] [address] Referring Neurosurgery 10/04/21 Ignacia Dawn MD [address] [place] [address] [place], [place] [id number] Physician Radiation Oncology 10/04/21 Supervisor Publications Relationship Specialty Start Date End Date Gavin Tran MD [address] [place] [address] PCP - General Internal Medicine 01/13/12 Bernabe Cox MD [address] [place] [facility] [place] [address] Referring Neurosurgery 10/04/21 Ignacia Dawn MD [address] [place] [address] [place], [place] [id number] Physician Radiation Oncology 10/04/21 Supervisor Publications Relationship Specialty Start Date End Date Gavin Tran MD [address] [place] [address] PCP - General Internal Medicine 01/13/12 Bernabe Cox MD [address] [place] [address] Referring Neurosurgery 10/04/21 Ignacia Dawn MD [address] [place] [address] [place], [place] [id number] Physician Radiation Oncology 10/04/21 Supervisor Publications Relationship Specialty Start Date End Date Gavin Tran MD [address] [place] [address] PCP - General Internal Medicine 01/13/12 Bernabe Cox MD [address] [place] [facility] [place] [address] Referring Neurosurgery 10/04/21 Ignacia Dawn MD [address] [place] [address] [place], [place] [phone] Physician Radiation Oncology 10/04/21 Supervisor Publications Relationship Specialty Start Date End Date Gavin Tran MD [address] [place] [address] PCP - General Internal Medicine 01/13/12 Bernabe Cox MD [address] [facility] [place] [address] Referring Neurosurgery 10/04/21 Ignacia Dawn MD [address] [place] [address] [place], [place] [phone] Physician Radiation Oncology 10/04/21 Supervisor Publications Relationship Specialty Start Date End Date Gavin Tran MD [address] [place] [address] PCP - General Internal Medicine 01/13/12 Bernabe Cox MD [address] [facility] [place] [address] Referring Neurosurgery 10/04/21 Ignacia Dawn MD [address] [place] [address] [place], [place] [address] Physician Radiation Oncology 10/04/21 Supervisor Publications Relationship Specialty Start Date End Date Gavin Tran MD [address] [place] [address] PCP - General Internal Medicine 01/13/12 Bernabe Cox MD [address] [place] [place] [address] Referring Neurosurgery 10/04/21 Ignacia Dawn MD [address] [place] [address] [place], [place] [id number] Physician Radiation Oncology 10/04/21 Supervisor Publications Relationship Specialty Start Date End Date Gavin Tran MD [address] [place] [address] PCP - General Internal Medicine 01/13/12 Bernabe Cox MD [address] [facility] [address] [place], [place] [address] Referring Neurosurgery 10/04/21 Ignacia Dawn MD [address] [place] [address] [place], [place] [phone] Physician Radiation Oncology 10/04/21 Supervisor Publications Relationship Specialty Start Date End Date Gavin Tran MD [address] [place], [place] [address] PCP - General Internal Medicine 01/13/12 Bernabe Cox MD [address] [facility] [address] [place], [place] [address]003 Referring Neurosurgery 10/04/21 Ignacia Dawn MD [address] [place] [address] [place], [place] [address] Physician Radiation Oncology 10/04/21 Supervisor Publications Relationship Specialty Start Date End Date Gavin Tran MD [address] [facility], [place] [address] PCP - General Internal Medicine 01/13/12 Bernabe Cox MD [address] [facility] [place] [address] Referring Neurosurgery 10/04/21 Ignacia Dawn MD [address] [place] [address] [place], [place] [phone] Physician Radiation Oncology 10/04/21 Supervisor Publications Relationship Specialty Start Date End Date Gavin Tran MD [address] [place] [address] PCP - General Internal Medicine 01/13/12 Bernabe Cox MD [address] [place] [facility] [place] [address] Referring Neurosurgery 10/04/21 Ignacia Dawn MD [address] [place] [address] [place], [place] [address] Physician Radiation Oncology 10/04/21 Supervisor Publications Relationship Specialty Start Date End Date Gavin Tran MD [address] [place] [address] PCP - General Internal Medicine 01/13/12 Bernabe Cox MD [address] [place] [facility] [place] [address] Referring Neurosurgery 10/04/21 Ignacia Dawn MD [address] [place] [address] [place], [place] [address] Physician Radiation Oncology 10/04/21 Supervisor Publications Relationship Specialty Start Date End Date Gavin Tran MD [address] [place] [address] PCP - General Internal Medicine 01/13/12 Bernabe Cox MD [address] [facility] [place] [address] Referring Neurosurgery 10/04/21 Ignacia Dawn MD [address] [place] [address] Physician Radiation Oncology 10/04/21 Supervisor Publications Relationship Specialty Start Date End Date Gavin Tran MD [address] [place] [address] PCP - General Internal Medicine 01/13/12 Bernabe Cox MD [address] [place] [address] Referring Neurosurgery 10/04/21 Ignacia Dawn MD [address] [place] [address] [place], [place] [phone] Physician Radiation Oncology 10/04/21 Supervisor Publications Relationship Specialty Start Date End Date Gavin Tran MD [address] [place] [address] PCP - General Internal Medicine 01/13/12 Bernabe Cox MD [address] [place] [address] Referring Neurosurgery 10/04/21 Ignacia Dawn MD [address] [place] [address] [place], [place] [address] Physician Radiation Oncology 10/04/21 Supervisor Publications Relationship Specialty Start Date End Date Gavin Tran MD [address] [place] [address] PCP - General Internal Medicine 01/13/12 Bernabe Cox MD [address] [place] [address] Referring Neurosurgery 10/04/21 Ignacia Dawn MD [address] [place] [address] [place], [place] [phone] Physician Radiation Oncology 10/04/21 Supervisor Publications Relationship Specialty Start Date End Date Gavin Tran MD [address] [facility], [place] [address] PCP - General Internal Medicine 01/13/12 Bernabe Cox MD [address] [facility] [place] [address] Referring Neurosurgery 10/04/21 Ignacia Dawn MD [address] [place] [address] [place], [place] [phone] Physician Radiation Oncology 10/04/21 Supervisor Publications Relationship Specialty Start Date End Date Gavin Tran MD [address] [facility] [place] [address] PCP - General Internal Medicine 01/13/12 Bernabe Cox MD [address] [place] [facility] [place] [address] Referring Neurosurgery 10/04/21 Ignacia Dawn MD [address] [place] [address] [place], [place] [phone] Physician Radiation Oncology 10/04/21 Supervisor Publications Relationship Specialty Start Date End Date Gavin Tran MD [address] [place] [address] PCP - General Internal Medicine 01/13/12 Bernabe Cox MD [address] [place] [place] [address] Referring Neurosurgery 10/04/21 Ignacia Dawn MD [address] [place] [address] [place], [place] [phone] Physician Radiation Oncology 10/04/21 Supervisor Publications Relationship Specialty Start Date End Date Gavin Tran MD [address] [place] [address] PCP - General Internal Medicine 01/13/12 Bernabe Cox MD [address] [place] [facility] [place] [address] Referring Neurosurgery 10/04/21 Ignacia Dawn MD [address] [place] [address] [place], [place] [address] Physician Radiation Oncology 10/04/21 Supervisor Publications Relationship Specialty Start Date End Date Gavin Tran MD [address] [facility] [place], [place] [address]201 PCP - General Internal Medicine 01/13/12 Bernabe Cox MD [address] [facility] [place] [address] Referring Neurosurgery 10/04/21 Ignacia Dawn MD [address] [place] [address] [place], [place] [phone] Physician Radiation Oncology 10/04/21 Supervisor Publications Relationship Specialty Start Date End Date Gavin Tran MD [address] [facility] [place] [address]201 PCP - General Internal Medicine 01/13/12 Bernabe Cox MD [address] [facility] [place] [address] Referring Neurosurgery 10/04/21 Ignacia Dawn MD [address] [place] [address] [place], [place] [address] Physician Radiation Oncology 10/04/21 Supervisor Publications Relationship Specialty Start Date End Date Gavin Tran MD [address] [place] [address] PCP - General Internal Medicine 01/13/12 Bernabe Cox MD [address] [facility] [place] [address] Referring Neurosurgery 10/04/21 Ignacia Dawn MD [address] [place] [address] [place], [place] [phone] Physician Radiation Oncology 10/04/21 Supervisor Publications Relationship Specialty Start Date End Date Gavin Tran MD [address] [place] [address] PCP - General Internal Medicine 01/13/12 Bernabe Cox MD [address] [place] [address] Referring Neurosurgery 10/04/21 Ignacia Dawn MD [address] [place] [address] [place], [place] [address] Physician Radiation Oncology 10/04/21 Supervisor Publications Relationship Specialty Start Date End Date Gavin Tran MD [address] [place] [address] PCP - General Internal Medicine 01/13/12 Bernabe Cox MD [address] [place] [address] Referring Neurosurgery 10/04/21 Ignacia Dawn MD [address] [place] [address] [place], [place] [address] Physician Radiation Oncology 10/04/21 Supervisor Publications Relationship Specialty Start Date End Date Gavin Tran MD [address] [place] [address] PCP - General Internal Medicine 01/13/12 Bernabe Cox MD [address] [place] [address] Referring Neurosurgery 10/04/21 Ignacia Dawn MD [address] [place] [address] [place], [place] [address] Physician Radiation Oncology 10/04/21 Supervisor Publications Relationship Specialty Start Date End Date Gavin Tran MD [address] [place] [address] PCP - General Internal Medicine 01/13/12 Bernabe Cox MD [address] [place] [place] [address] Referring Neurosurgery 10/04/21 Ignacia Dawn MD [address] [place] [address] [place], [place] [phone] Physician Radiation Oncology 10/04/21 Supervisor Publications Relationship Specialty Start Date End Date Gavin Tran MD [address] [facility], [place] [address]87841 PCP - General Internal Medicine 01/13/12 Bernabe Cox MD [address] [place] [address] Referring Neurosurgery 10/04/21 Ignacia Dawn MD [address] [place] [address] [place], [place] [address] Physician Radiation Oncology 10/04/21 Supervisor Publications Relationship Specialty Start Date End Date Gavin Tran MD [address] [facility], [place] 780941 PCP - General Internal Medicine 01/13/12 Bernabe Cox MD [address] [place] [facility] [place] [address] Referring Neurosurgery 10/04/21 Ignacia Dawn MD [address] [place] [address] [place], [place] [address] Physician Radiation Oncology 10/04/21 Supervisor Publications Relationship Specialty Start Date End Date Gavin Tran MD [address] [place] [address] PCP - General Internal Medicine 01/13/12 Bernabe Cox MD [address] [facility] [place] [address] Referring Neurosurgery 10/04/21 Ignacia Dawn MD [address] [place] [address] Physician Radiation Oncology 10/04/21 Supervisor Publications Relationship Specialty Start Date End Date Gavin Tran MD [address] [facility] [place] [address] PCP - General Internal Medicine 01/13/12 Bernabe Cox MD [address] [facility] [place] [address] Referring Neurosurgery 10/04/21 Ignacia Dawn MD [address] [place] [address] [place], [place] [phone] Physician Radiation Oncology 10/04/21 Team Status: Active Member Role Status Dates Dr. Gavin Tran MD Family Provider Active Dr. Gavin Tran MD Primary Care Provider Active Team Status: Active Member Role Status Dates Dr. Gavin Tran MD Primary Care Provider, Refer ring Provider Active Arely KABA, PA-C Attending Provider Active Team Status: Active Member Role Status Dates Dr. Gavin Tran MD Primary Care Provider Active Dr. Jordy Steel DO Attending Provider Active Team Status: Inactive Member Role Status Dates Dr. Gavin Tran MD Primary Care Provider Active Arely KABA PAThaniaC Attending Provider Active Supervisor Publications Relationship Specialty Start Date End Date Gavin Tran MD [address] [facility] [place] [place] [address] PCP - General Internal Medicine 01/13/12 Bernabe Cox MD [address] [facility] [place] [address] Referring Neurosurgery 10/04/21 Ignacia Dawn MD [address] [place] [address] [place], [place] [address] Physician Radiation Oncology 10/04/21 Supervisor Publications Relationship Specialty Start Date End Date Gavin Tran MD [address] [place] [address] PCP - General Internal Medicine 01/13/12 Bernabe Cox MD [address] [facility] [place], [place] [address] Referring Neurosurgery 10/04/21 Ignacia Dawn MD [address] [place] [address] [place], [place] [address] Physician Radiation Oncology 10/04/21 Supervisor Publications Relationship Specialty Start Date End Date Gavin Tran MD [address] [facility] [place] [address]91 PCP - General Internal Medicine 01/13/12 Bernabe Cox MD [address] [facility] [place], [place] [address] Referring Neurosurgery 10/04/21 Ignacia Dawn MD [address] [place] [address] [place], [place] [phone] Physician Radiation Oncology 10/04/21 Team Status: Inactive Member Role Status Dates Dr. Gavin Tran MD Primary Care Provider, Refer ring Provider Active Arely KABA PAThaniaC Attending Provider Active Team Status: Active Member Role Status Dates Dr. Gavin Tran MD Primary Care Provider, Refer ring Provider Active Dr. Baron Reid MD Attending Provider, Other Prov ider Active Team Status: Inactive Member Role Status Dates Dr. Gavin Tran MD Primary Care Provider, Refer ring Provider Active Dr. Baron Reid MD Attending Provider Active Supervisor Publications Relationship Specialty Start Date End Date Gavin Tran MD [address] [place] [address] PCP - General Internal Medicine 01/13/12 Bernabe Cox MD [address] [facility] [address] Referring Neurosurgery 10/04/21 Ignacia Dawn MD [address] [place] [address] [place], [place] [phone] Physician Radiation Oncology 10/04/21 Supervisor Publications Relationship Specialty Start Date End Date Gavin Tran MD [address] [facility] [place], [place] [address] PCP - General Internal Medicine 01/13/12 Bernabe Cox MD [address] [facility] [place], [place] [address] Referring Neurosurgery 10/04/21 Ignacia Dawn MD [address] [place] [address] [place], [place] [address] Physician Radiation Oncology 10/04/21 Team Status: Inactive Member Role Status Dates Dr. Gavin Tran MD Primary Care Provider Active Dr. Dona Kramer DO Emergency Provider Active Supervisor Publications Relationship Specialty Start Date End Date Gavin Tran MD [address] [place], [place] [address]461 PCP - General Internal Medicine 01/13/12 Bernabe Cox MD [address] [facility] [place] [address] Referring Neurosurgery 10/04/21 Ignacia Dawn MD [address] [place] [address] [place], [place] [address] Physician Radiation Oncology 10/04/21 Supervisor Publications Relationship Specialty Start Date End Date Gavin Tran MD [address] [place], [place] 644021 PCP - General Internal Medicine 01/13/12 Bernabe Cox MD [address] [facility] [place], [place] [address] Referring Neurosurgery 10/04/21 Ignacia Dawn MD [address] [place] [address] [place], [place] [address] Physician Radiation Oncology 10/04/21 Supervisor Publications Relationship Specialty Start Date End Date Gavin Tran MD [address] [place], [place] [address] PCP - General Internal Medicine 01/13/12 Bernabe Cox MD [address] [facility] [place] [address] Referring Neurosurgery 10/04/21 Ignacia Dawn MD [address] [place] [address] [place], [place] [address] Physician Radiation Oncology 10/04/21 Supervisor Publications Relationship Specialty Start Date End Date Gavin Tran MD [address] [place], [place] [address]291 PCP - General Internal Medicine 01/13/12 Bernabe Cox MD [address] [facility] [place] [place] [address] Referring Neurosurgery 10/04/21 Ignacia Dawn MD [address] [place] [address] [place], [place] [address] Physician Radiation Oncology 10/04/21 Supervisor Publications Relationship Specialty Start Date End Date Gavin Tran MD [address] [place] [address] PCP - General Internal Medicine 01/13/12 Bernabe Cox MD [address] [facility] [place], [place] [address] Referring Neurosurgery 10/04/21 Ignacia Dawn MD [address] [place] [address] [place], [place] [address] Physician Radiation Oncology 10/04/21 Supervisor Publications Relationship Specialty Start Date End Date Gavin rTan MD [address] [place] [address] PCP - General Internal Medicine 01/13/12 Bernabe Cox MD [address] [place] [address] Referring Neurosurgery 10/04/21 Ignacia Dawn MD [address] [place] [address] [place], [place] [address] Physician Radiation Oncology 10/04/21 Supervisor Publications Relationship Specialty Start Date End Date Gavin Tran MD [address] [facility] [place] [address]21 PCP - General Internal Medicine 01/13/12 Bernabe Cox MD [address] [place], [place] [address] Referring Neurosurgery 10/04/21 Ignacia Dawn MD [address] [place] [address] Physician Radiation Oncology 10/04/21 Supervisor Publications Relationship Specialty Start Date End Date Gavin Tran MD [address] [place] [address] PCP - General Internal Medicine 01/13/12 Bernabe Cox MD [address] [facility] [address] Referring Neurosurgery 10/04/21 Ignacia Dawn MD [address] [place] [address] Physician Radiation Oncology 10/04/21 Supervisor Publications Relationship Specialty Start Date End Date Gavin Tran MD [address] [place] [address] PCP - General Internal Medicine 01/13/12 Bernabe Cox MD [address] [facility] [place] [address] Referring Neurosurgery 10/04/21 Ignacia Dawn MD [address] [place] [address] [place], [place] [address] Physician Radiation Oncology 10/04/21 Sharif Farmer MD [address] [place] [address] [facility] [address] [place], [place] [phone] General Surgery 01/28/24 Supervisor Publications Relationship Specialty Start Date End Date Gavin Tran MD [address] [place] [address] PCP - General Internal Medicine 01/13/12 Bernabe Cox MD [address] [facility] [place] [address] Referring Neurosurgery 10/04/21 Ignacia Dawn MD [address] [place] [address] [place], [place] [address] Physician Radiation Oncology 10/04/21 Sharif Farmer MD [address] [place] [address] [facility] [address] [place], [place] [address] General Surgery 01/28/24 Supervisor Publications Relationship Specialty Start Date End Date Gavin Tran MD [address] [place] [address] PCP - General Internal Medicine 01/13/12 Bernabe Cox MD [address] [facility] [place] [address] Referring Neurosurgery 10/04/21 Ignacia Dawn MD [address] [place] [address] [place], [place] [address] Physician Radiation Oncology 10/04/21 Sharif Farmer MD [address] [place] [address] [place] [address] [place], [place] [address] General Surgery 01/28/24 Supervisor Publications Relationship Specialty Start Date End Date Gavin Tran MD [address] [place] [address] PCP - General Internal Medicine 01/13/12 Bernabe Cox MD [address] [facility] [place], [place] [address] Referring Neurosurgery 10/04/21 Ignacia Dawn MD [address] [place] [address] [place], [place] [address] Physician Radiation Oncology 10/04/21 Sharif Farmer MD [address] [place] [address] [place], [place] [address] General Surgery 01/28/24 Supervisor Publications Relationship Specialty Start Date End Date Gavin Tran MD [address] [facility] [place], [place] [address] PCP - General Internal Medicine 01/13/12 Bernabe Cox MD [address] [place] [address] Referring Neurosurgery 10/04/21 Ignacia Dawn MD [address] [place] [address] [place], [place] [address] Physician Radiation Oncology 10/04/21 Sharif Farmer MD [address] [place] [address] [place], [place] [address] General Surgery 01/28/24 Supervisor Publications Relationship Specialty Start Date End Date Gavin Tran MD [address] [place] [address] PCP - General Internal Medicine 01/13/12 Bernabe Cox MD [address] [facility] [place], [place] [address]13 Referring Neurosurgery 10/04/21 Ignacia Dawn MD [address] [place] [address] [place], [place] [id number] Physician Radiation Oncology 10/04/21 Sharif Farmer MD [address] [place] [address] [place], [place] [id number] General Surgery 01/28/24 Supervisor Publications Relationship Specialty Start Date End Date Gavin Tran MD [address] [place] [address] PCP - General Internal Medicine 01/13/12 Bernabe Cox MD [address] [facility] [place] [address] Referring Neurosurgery 10/04/21 Ignacia Dawn MD [address] [place] [address] [place], [place] [id number] Physician Radiation Oncology 10/04/21 Sharif Farmer MD [address] [place] [address] [facility] [address] [place], [place] [id number] General Surgery 01/28/24 Supervisor Publications Relationship Specialty Start Date End Date Gavin Tran MD [address] [place] [address] PCP - General Internal Medicine 01/13/12 Bernabe Cox MD [address] [place] [address] Referring Neurosurgery 10/04/21 Ignacia Dawn MD [address] [place] [address] [place], [place] [id number] Physician Radiation Oncology 10/04/21 Sharif Farmer MD [address] [place] [address] [facility] [address] [place], [place] [id number] General Surgery 01/28/24 Supervisor Publications Relationship Specialty Start Date End Date Gavin Tran MD [address] [place], [place] [address] PCP - General Internal Medicine 01/13/12 Bernabe Cox MD [address] [facility] [place], [place] [address] Referring Neurosurgery 10/04/21 Ignacia Dawn MD [address] [place] [address] [place], [place] [id number] Physician Radiation Oncology 10/04/21 Sharif Farmer MD [address] [place] [address] [place], [place] [id number] General Surgery 01/28/24 Supervisor Publications Relationship Specialty Start Date End Date Gavin Tran MD [address] [facility] [place] [address] PCP - General Internal Medicine 01/13/12 Bernabe Cox MD [address] [facility] [place] [address] Referring Neurosurgery 10/04/21 Ignacia Dawn MD [address] [place] [address] [place], [place] [id number] Physician Radiation Oncology 10/04/21 Sharif Farmer MD [address] [place] [address] [place], [place] [phone] General Surgery 01/28/24 Supervisor Publications Relationship Specialty Start Date End Date Gavin Tran MD [address] [place] [place], [place] [address] PCP - General Internal Medicine 01/13/12 Bernabe Cox MD [address] [facility] [address] Referring Neurosurgery 10/04/21 Ignacia Dawn MD [address] [place] [address] [place], [place] [phone] Physician Radiation Oncology 10/04/21 Sharif Farmer MD [address] [place] [address] [place], [place] [id number] General Surgery 01/28/24 Catina Reddy, SENIOR GAMES TECHNICIAN.FINANCE SPECIALIST [address] [facility] [place] [address] Cdl Program Coordinator Internal Medicine 03/29/24 Supervisor Publications Relationship Specialty Start Date End Date Gavin Tran MD [address] [facility] [place] [address] PCP - General Internal Medicine 01/13/12 Bernabe Cox MD [address] [facility] [place] [address] Referring Neurosurgery 10/04/21 Ignacia Dawn MD [address] [place] [address] Physician Radiation Oncology 10/04/21 Sharif Farmer MD [address] [place] [address] [place], [place] [id number] General Surgery 01/28/24 Catina Reddy, SENIOR GAMES TECHNICIAN.FINANCE SPECIALIST [address] [facility] [place] [address] Cdl Program Coordinator Internal Medicine 03/29/24 Carmen Hdez, RN [address] [id number] Primary Care [place] Driver Internal Medicine 04/12/24 Supervisor Publications Relationship Specialty Start Date End Date Gavin Tran MD [address] [place], [place] [address]681 PCP - General Internal Medicine 01/13/12 Bernabe Cox MD [address] [place] [address] Referring Neurosurgery 10/04/21 Ignacia Dawn MD [address] [place] [address] [place], [place] [phone] Physician Radiation Oncology 10/04/21 Sharif Farmer MD [address] [place] [address] [place], [place] [phone] General Surgery 01/28/24 Catina Reddy, SENIOR GAMES TECHNICIAN.[facility] [address] [place], [place] [address]31 Cdl Program Coordinator Internal Medicine 03/29/24 Carmen Hdez, FOREIGN [address] [place] [address] Primary Care [place] Driver Internal Medicine 04/12/24 Supervisor Publications Relationship Specialty Start Date End Date Gavin Tran MD [address] [place], [place] 59[address]41 PCP - General Internal Medicine 01/13/12 Bernabe Cox MD [address] [place] [address] Referring Neurosurgery 10/04/21 Ignacia Dawn MD [address] [place] [address] [place], [place] [id number] Physician Radiation Oncology 10/04/21 Sharif Farmer MD [address] [place] [address] [facility] [address] [place], [place] [phone] General Surgery 01/28/24 Catina Reddy, SENIOR GAMES TECHNICIAN.FINANCE SPECIALIST [address] [facility] [place] [address] Cdl Program Coordinator Internal Medicine 03/29/24 Carmen Hdez, RN [address] [phone] Primary Care [place] Driver Internal Medicine 04/12/24 04/19/24 Supervisor Publications Relationship Specialty Start Date End Date Gavin Tran MD [address] [facility] [place] [address] PCP - General Internal Medicine 01/13/12 Bernabe Cox MD [address] [facility] [place] [address] Referring Neurosurgery 10/04/21 Ignacia Dawn MD [address] [place] [address] [place], [place] [phone] Physician Radiation Oncology 10/04/21 Sharif Farmer MD [address] [place] [address] [facility] [address] [place], [place] [id number] General Surgery 01/28/24 Catina Reddy, SENIOR GAMES TECHNICIAN.FINANCE SPECIALIST [address] [facility] [place] [address] Cdl Program Coordinator Internal Medicine 03/29/24 Supervisor Publications Relationship Specialty Start Date End Date Gavin Tran MD [address] [facility] [place] [address] PCP - General Internal Medicine 01/13/12 Bernabe Cox MD [address] [facility] [place] [address] Referring Neurosurgery 10/04/21 Ignacia Dawn MD [address] [place] [address] [place], [place] [id number] Physician Radiation Oncology 10/04/21 Sharif Farmer MD [address] [place] [address] [place] [address] [place], [place] [phone] General Surgery 01/28/24 Catina Reddy, SENIOR GAMES TECHNICIAN.FINANCE SPECIALIST [address] [facility] [place] [address] Cdl Program Coordinator Internal Medicine 03/29/24 Supervisor Publications Relationship Specialty Start Date End Date Gavin Tran MD [address] [place] [address] PCP - General Internal Medicine 01/13/12 Bernabe Cox MD [address] [facility] [place] [address] Referring Neurosurgery 10/04/21 Ignacia Dawn MD [address] [place] [address] [place], [place] [phone] Physician Radiation Oncology 10/04/21 Sharif Farmer MD [address] [place] [address] [facility] [address] [place], [place] [phone] General Surgery 01/28/24 Catina Reddy, SENIOR GAMES TECHNICIAN.FINANCE SPECIALIST [address] [place] [address] Cdl Program Coordinator Internal Medicine 03/29/24 Supervisor Publications Relationship Specialty Start Date End Date Gavin Tran MD [address] [facility] [address] PCP - General Internal Medicine 01/13/12 Bernabe Cox MD [address] [facility] [place] [address] Referring Neurosurgery 10/04/21 Ignacia Dawn MD [address] [address] [place], [place] [phone] Physician Radiation Oncology 10/04/21 Sharif Farmer MD [address] [place] [facility] [address] [place], [place] [phone] General Surgery 01/28/24 Catina Reddy, SENIOR GAMES TECHNICIAN.FINANCE SPECIALIST [address] [facility] [place] [address] Cdl Program Coordinator Internal Medicine 03/29/24 Supervisor Publications Relationship Specialty Start Date End Date Gavin Tran MD [address] [facility] [address] PCP - General Internal Medicine 01/13/12 Bernabe Cox MD [address] [facility] [place] [place] [address] Referring Neurosurgery 10/04/21 Ignacia Dawn MD [address] [place] [address] [place], [place] [phone] Physician Radiation Oncology 10/04/21 Sharif Farmer MD [address] [place] [address] [place], [place] [phone] General Surgery 01/28/24 Catina Reddy, SENIOR GAMES TECHNICIAN.FINANCE SPECIALIST [address] [facility] [place] [address] Cdl Program Coordinator Internal Medicine 03/29/24 Supervisor Publications Relationship Specialty Start Date End Date Gavin Tran MD [address] [place] [address] PCP - General Internal Medicine 01/13/12 Bernabe Cox MD [address] [facility] [place] [address] Referring Neurosurgery 10/04/21 Ignacia Dawn MD [address] [place] [address] [place], [place] [phone] Physician Radiation Oncology 10/04/21 Sharif Farmer MD [address] [place] [address] [place], [place] [phone] General Surgery 01/28/24 Catina Reddy, SENIOR GAMES TECHNICIAN.FINANCE SPECIALIST [address] [facility] [place] [address] Cdl Program Coordinator Internal Medicine 03/29/24 Supervisor Publications Relationship Specialty Start Date End Date Gavin Tran MD [address] [place] [address] PCP - General Internal Medicine 01/13/12 Brenabe Cox MD [address] [place] [address] Referring Neurosurgery 10/04/21 Ignacia Dawn MD [address] [place] [address] [place], [place] [phone] Physician Radiation Oncology 10/04/21 Sharif Farmer MD [address] [place] [address], [place] [phone] General Surgery 01/28/24 Catina Reddy, SENIOR GAMES TECHNICIAN.[facility] [address] [facility] [place] [address] Cdl Program Coordinator Internal Medicine 03/29/24 Supervisor Publications Relationship Specialty Start Date End Date Gavin Tran MD [address] [place] [address] PCP - General Internal Medicine 01/13/12 Bernabe Cox MD [address] [place] [address] Referring Neurosurgery 10/04/21 Ignacia Dawn MD [address] [place] [address] [place], [place] [phone] Physician Radiation Oncology 10/04/21 Sharif Farmer MD [address] [place] [address] [facility] [address] [place], [place] [phone] General Surgery 01/28/24 Catina Reddy, SENIOR GAMES TECHNICIAN.FINANCE SPECIALIST [address] [place] [address] Cdl Program Coordinator Internal Medicine 03/29/24 Supervisor Publications Relationship Specialty Start Date End Date Gavin Tran MD [address] [place], [place] 32[address]71 PCP - General Internal Medicine 01/13/12 Bernabe Cox MD [address] [place] [address] Referring Neurosurgery 10/04/21 Ignacia Dawn MD [address] [place] [address] [place], [place] [address] Physician Radiation Oncology 10/04/21 Sharif Farmer MD [address] [place] [address] [facility] [address] [place], [place] [phone] General Surgery 01/28/24 Catina Reddy, SENIOR GAMES TECHNICIAN.FINANCE SPECIALIST [address] [place], [place] [address]61 Cdl Program Coordinator Internal Medicine 03/29/24 Supervisor Publications Relationship Specialty Start Date End Date Gavin Tran MD [address] [place], [place] 5[address]11 PCP - General Internal Medicine 01/13/12 Bernabe Cox MD [address] [facility] [address] Referring Neurosurgery 10/04/21 Ignacia Dawn MD [address] [address] [place], [place] [phone] Physician Radiation Oncology 10/04/21 Sharif Farmer MD [address] [place] [address] [place] [place], [place] [phone] General Surgery 01/28/24 Catina Reddy, SENIOR GAMES TECHNICIAN.FINANCE SPECIALIST [address] [facility] [place], [place] 135[address]31 Cdl Program Coordinator Internal Medicine 03/29/24 Team Status: Active Member Role/Relationship Status Dates Dr. Gavin Tran MD Family Provider Active Dr. Gavin Tran MD Primary Care Provider Active Team Status: Inactive Member Role/Relationship Status Dates Dr. Gavin Tran MD Primary Care Provider Active Start: November 23, 2024 End: November 23, 2024 Dr. Gavin Tran MD Referring Provider Active Start: November 23, 2024 End: November 23, 2024 SENDY Dinero Attending Provider Active St art: November 23, 2024 End: November 23, 2024 Supervisor Publications Relationship Specialty Start Date End Date Gavin Tran MD [address] [facility] [place] [address] PCP - General Internal Medicine 01/13/12 Bernabe Cox MD [address] [facility] [address] Referring Neurosurgery 10/04/21 Ignacia Dawn MD [address] [place] [address] [place], [place] [phone] Physician Radiation Oncology 10/04/21 Sharif Farmer MD [address] [place] [address] [place], [place] [phone] General Surgery 01/28/24 Catina Reddy, SENIOR GAMES TECHNICIAN.FINANCE SPECIALIST [address] [facility] [place] [place] [address] Cdl Program Coordinator Internal Medicine 03/29/24 Supervisor Publications Relationship Specialty Start Date End Date Gavin Tran MD [address] [facility] [place], [place] [address] PCP - General Internal Medicine 01/13/12 Bernabe Cox MD [address] [place] [address] Referring Neurosurgery 10/04/21 Ignacia Dawn MD [address] [place] [address] [place], [place] [id number] Physician Radiation Oncology 10/04/21 Sharif Farmer MD [address] [place] [address] [facility] [address] [place], [place] [phone] General Surgery 01/28/24 Catina Reddy, SENIOR GAMES TECHNICIAN.FINANCE SPECIALIST [address] [facility] [place] [address] Cdl Program Coordinator Internal Medicine 03/29/24 Team Status: Active Member Role/Relationship Status Dates Dr. Gavin Tran MD Primary Care Provider Active Team Status: Inactive Member Role/Relationship Status Dates Dr. Gavin Tran MD Primary Care Provider Active Start: November 23, 2024 End: November 23, 2024 SENDY Dinero Attending Provider Active St art: November 23, 2024 End: November 23, 2024 SENDY Dinero Referring Provider Active St art: November 23, 2024 End: November 23, 2024 Supervisor Publications Relationship Specialty Start Date End Date Gavin Tran MD [address] [place], [place] [address] PCP - General Internal Medicine 01/13/12 Bernabe Cox MD [address] [place], [place] [address] Referring Neurosurgery 10/04/21 Ignacia Dawn MD [address] [place] [address] [place], [place] [phone] Physician Radiation Oncology 10/04/21 Sharif Farmer MD [address] [id number] General Surgery 01/28/24 Catina Reddy, SENIOR GAMES TECHNICIAN.FINANCE SPECIALIST [address] [place], [place] [address] Cdl Program Coordinator Internal Medicine 03/29/24 Supervisor Publications Relationship Specialty Start Date End Date Gavin Tran MD [address] [place], [place] [address] PCP - General Internal Medicine 01/13/12 Bernabe Cox MD [address] [facility] [place] [address] Referring Neurosurgery 10/04/21 Ignacia Dawn MD [address] [address] Physician Radiation Oncology 10/04/21 Sharif Farmer MD 1 [facility] [place] [address] [place] [address] General Surgery 01/28/24 Catina Reddy, SENIOR GAMES TECHNICIAN.FINANCE SPECIALIST [address] [place] [address] Cdl Program Coordinator Internal Medicine 03/29/24 Team Status: Inactive Member Role/Relationship Status Dates Dr. Gavin Tran MD Primary Care Provider Active Start: December 14, 2024 End: December 14, 2024 SENDY Dinero Attending Provider Active St art: December 14, 2024 End: December 14, 2024 SENDY Dinero Referring Provider Active St art: December 14, 2024 End: December 14, 2024 Team Status: Active Member Role/Relationship Status Dates Dr. Gavin Tran MD Primary Care Provider Active Start: December 14, 2024 Dr. Vincent Álvarez MD Attending Provider Active S tart: December 14, 2024 Team Status: Active Member Role/Relationship Status Dates Dr. Gavin Tran MD Primary Care Provider Active Start: December 14, 2024 Dr. Eulalio Pacheco MD Attending Provider Active S tart: December 14, 2024 Goals (unrecognized section and content) Goals may be documented in a n alternate sectionGoals may be documented in an alternate sectionGoals may be documented in an alternate sectionGoals may be documented in an alternate sectionGoals may be documented in an alternate sectionGoals may be documented in an alternate sectionGoals may be documented in an alternate sectionGoals may be documented in an alternate sectionGoals may be documented in an alternate sectionGoals may be documented in an alternate section FOR RECORDS PERTAINING TO PATIENTS WHO ARE OR HAVE BEEN ENROLLED IN A CHEMICAL DEPENDENCY/SUBSTANCEABUSE PROGRAM, SOME INFORMATION MAY BE OMITTED. This clinical summary was aggregated from multiple sources. Caution should be exercised in using it in the provision of clinical care. This summary normalizes information from multiple sources, and as a consequence, information in this document may materially change the coding, format and clinical context of patient data. In addition, data may be omitted in some cases. CLINICAL DECISIONS SHOULD BE BASED ON THE PRIMARY CLINICAL RECORDS. [employer] [facility]. provides no warranty or guarantee of the accuracy or completeness of information in this document.
--- NOTE | 2024-12-28 12:31 | STRESSREP ---
Stress Test Report Date: 12/28/2024 Procedure: Exercise tolerance test/imaging study Indications: CAD Consent: Per the patient Procedure: The patient exercised on a Jamin protocol for 3 minutes and 45 seconds achieving a peak heart rate of 141 bpm (101% predicted maximal heart rate) with a peak blood pressure 194/70 mmHg and a peak MET capacity of 6.4 METs. The baseline ECG demonstrated sinus rhythm with right bundle branch block. The peak exercise ECG was nondiagnostic secondary to baseline abnormalities. There were no cardiac dysrhythmias pretest, during exercise, or recovery. The functional capacity was considered average for age. There was no complaint of chest discomfort during exercise or recovery. The examination was discontinued secondary to target heart rate being achieved. The patient was injected with 11.2 mCi of technetium 99m Cardiolite and subsequently rest SPECT Cardiolite nuclear imaging was obtained in the horizontal long, vertical long, and short axis views. Post-exercise, the patient was injected with 36.0 mCi of technetium 99m Cardiolite and subsequently stress SPECT Cardiolite nuclear imaging was obtained in the horizontal long, vertical long, and short axis views. A gated Cardiolite study at peak stress was obtained. Rest and stress SPECT Cardiolite nuclear imaging status post realignment, normalization, and attenuation correction, demonstrates the appearance of relative uniform tracer uptake and myocardial perfusion appearing within normal limits. There is end systolic thickening and brightening. The gated Cardiolite study demonstrates myocardial thickening and inward wall motion. The reported LVEF is 84%. Impression: 1. Technically adequate (percent predicted maximal heart rate greater than 85%) exercise tolerance test 2. Peak exercise ECG nondiagnostic secondary to baseline abnormalities. Hypertensive blood pressure response to exercise 3. There were no cardiac dysrhythmias pretest, during exercise, or recovery 4. Rest and stress SPECT Cardiolite nuclear imaging demonstrate relative uniform tracer uptake and myocardial perfusion appearing within normal limits. 5. The gated Cardiolite study reports an LVEF of 84%. This note was generated with Research Journalist[employer] software. It may contain incorrect words, spelling, and punctuation that were not noted in checking the note before signing.
== END | disposition home or self-care (01) ==
PROVIDERS: PCP Internal Medicine; Referring Provider Student in an Organized Health Care Education/Training Program; Visit Provider Student in an Organized Health Care Education/Training Program
DX: I25.10 Atherosclerotic heart disease of native coronary artery without angina pectoris (principal); E78.49 Other hyperlipidemia; R42 Dizziness and giddiness; I70.90 Unspecified atherosclerosis
CPT/HCPCS: 78452; 93017; A9500